=== PATIENT | female | born 1985 | race Caucasian/White ===

== ENCOUNTER 2017-11-16 17:25 | Emergency (ER) | payer OTHER, SELFPAY ==
--- NOTE | 2017-11-16 17:25 | DT_ITS ---
This patient was seen during an EMR downtime November 13, 2017 - November 20, 2017. This patient may have a combination of paper and electronic documentation or all paper documentation. All documentation is viewable within the e-chart portion of [facility] for each patient visit.
--- NOTE | 2017-11-16 18:47 | RAD_ITS ---
STUDY: X-RAY CHEST REASON FOR EXAM: Female, 31 years old. Chest pain. Shortness of breath TECHNIQUE: PA and lateral views of the chest. COMPARISON: None. FINDINGS: The lungs are clear and expanded. There is no demonstrated pleural abnormality. Normal size heart. Normal mediastinum and chery. Normal visualized pulmonary arteries. Normal visualized aortic arch and descending thoracic aorta. Normal visualized thoracic spine. Normal visualized ribs, clavicles, and shoulders. There is no demonstrated abnormality of the visualized soft tissue structures of the upper abdomen. RAD/Chest PA and Lateral IMPRESSION: Normal x-ray examination of the chest. Electronically Signed: Kirk Dotson MD at 13:43 EDT , Service support ,
== END 2017-11-16 18:05 | disposition home or self-care (01) ==
LOC: ED 11-17 10:38
PROVIDERS: Emergency Provider Emergency Medicine
DX: S20.212A Contusion of left front wall of thorax, initial encounter (principal); R07.89 Other chest pain; W50.1XXA Accidental kick by another person, initial encounter; Y93.9 Activity, unspecified; Y92.9 Unspecified place or not applicable
CPT/HCPCS: 71046; 99283

== ENCOUNTER 2018-04-14 12:26 | Emergency (ER) | payer OTHER, SELFPAY ==
[2018-04-14 12:27] VITALS: BP 114/69; PULSE 76; RESP 16; TEMP 36.3; O2SAT 98; BMI 21.6
--- NOTE | 2018-04-14 12:41 | CT_ITS ---
STUDY: CT ABDOMEN AND PELVIS WITHOUT CONTRAST REASON FOR EXAM: Female, 32 years old. LOW ABD PAIN. KAREN and left oophorectomy. HX OF ENDOMETRIOSIS AND IVF. RADIATION DOSAGE (If Supplied By Facility): CTDIvol = ( 6.67 ) mGy, DLP = ( 319.70 ) mGycm TECHNIQUE: Transaxial images were obtained from the dome of the diaphragm to the symphysis pubis without oral contrast, and without intravenous contrast. Sagittal and coronal images were reconstructed. Individualized dose optimization techniques were used for this CT. COMPARISON: None. FINDINGS: The visualized lung bases are unremarkable. The visualized portions of the heart are within normal limits. Normal liver. Normal gallbladder and extrahepatic biliary system. Normal spleen. Normal pancreas. Normal bilateral adrenal glands. Normal right kidney. Normal left kidney. Normal visualized stomach. Normal small intestine. There are multiple colonic diverticula consistent with diverticulosis. The appendix is visualized and appears normal. Normal abdominal aorta. Normal inferior vena cava. Normal retroperitoneum. Normal urinary bladder. Normal abdominal wall. Normal osseous structures. CT/Abdomen/Pelvis without Cont IMPRESSION: Mild diverticulosis. Electronically Signed: Justin Hansen MD at 14:21 EDT Tel , Service support ,
[2018-04-14 13:02] LABS: Squamous Epithelial Cells - UA 0 SEEN /hpf (5-10)
[2018-04-14 13:04] LABS: Color, Urine Yellow (Yellow); Glucose, Dipstick Normal (Normal); Ketone-Dipstick Negative (Negative); Leukocyte Esterase-Dipstick 25 /ul (Negative); Nitrite-Dipstick Positive (Negative); Occult Blood-Urine 25 /ul (Negative); Protein-Dipstick Negative (Negative); Urine Bilirubin Dipstick Negative (Negative); Urine Clarity Sl. Cloudy (Clear); Urine Urobilinogen Normal (Normal)
[2018-04-14 13:08] LABS: Absolute Lymphocyte Count 1.74 X10^3/ul (0.83-4.51); Absolute Neutrophil Count 6.8 X10^3/uL (2.0-7.7); Basophil# 0.03 X10^3/uL; Basophil% 0.3 % (0-1); Eosinophil# 0.15 X10^3/uL; Eosinophils% 1.6 % (0-5); Hematocrit 40.8 % (37-47); Hemoglobin 14.4 g/dl (12.0-15.0); Lymphocyte # 1.74 X10^3/ul (4.0); Lymphocyte % 18.5 % (19-41); Mean Corp Hgb Conc 35.3 g/gl (32-36); Mean Platelet Vol. 9.8 fl (6.2-12.0); Monocyte# 0.65 X10^3/uL; Monocyte% 6.9 % (0-10); Neutrophil % 72.5 % (47-70); Platelet Count 259 K/mm3 (150-450); RBC Distribution Width CV 12.3 % (11.6-14.6); RBC Distribution Width SD 37.7 fl (35.1-43.9); White Blood Count 9.4 K/mm3 (4.4-11.0)
[2018-04-14 13:09] LABS: POSITIVE COUNT NO; POSITIVE DIFFERENTIAL NO; POSITIVE MORPHOLOGY NO
[2018-04-14 13:10] LABS: Bacteria 3+ /hpf (None Seen); Mucous, Urine 1+ /hpf (<or=2+); Red Blood Cells-Urine 0-5 SEEN /hpf (0-5); White Blood Cells 0-5 SEEN /hpf (0-5)
[2018-04-14] MEDS: 0.9% Normal Saline 1,000 ML 1000 ML IV (13:14)
[2018-04-14] MEDS: Ondansetron 4 MG/2 ML Vial IV (13:14)
[2018-04-14 13:18] LABS: Anion Gap 6 (5-15); BUN 16 mg/dL (7-18); BUN/Creat Ratio 21.6 RATIO (10-20); Chloride 103 mmol/L (98-107); Creatinine, Serum 0.74 mg/dL (0.55-1.02); EST Glomerular Filtration Rate 96 mL/min (>60); Est Glom Filt Rate - Afr Amer 116 mL/min (>60); Estimated Creatinine Clearance 105.15 ml/min; Glucose 85 mg/dL (74-106); Potassium 3.8 mmol/L (3.5-5.1); Sodium Level 137 mmol/L (136-145)
[2018-04-14] MEDS: Ketorolac 30 MG/ML Syringe IV (14:09)
--- NOTE | 2018-04-14 14:41 | ED.VISSUMM ---
- ER Visit Summary Date of Service: 04/14/18 Chief Complaint: Abdominal pain History of Present Illness: The patient is a [address] Hairston. She reports that she has no abdominal pain began today. It came on suddenly. It is a sharp, stabbing pain 1010 at worst and 710 currently. Is worsened by bending, deep breaths, or sitting up straight. Relieved by remaining still. She had nausea without vomiting. No diarrhea. Last bowel was yesterday. She had no melena or hematochezia. No dysuria or frequency. She is status post hysterectomy. Physical Examination: Vitals: Stable. Afebrile. General: Well-nourished and well-developed. Head: Normocephalic atraumatic. Neck: Supple, no lymphadenopathy. No JVD. Nontender. Cardiovascular: Regular rate and rhythm. No murmurs. Respiratory: No respiratory distress. Clear to auscultation bilaterally. Abdominal: Soft, mild diffuse sinus palpation over the lower abdomen that is worst in the left lower quadrant, nondistended, normal bowel sounds. No guarding, rebound, or peritoneal signs. Back: Nontender. Extremities: Nontender, no edema. Skin: Normal color, no rash. Neurologic: Alert and oriented ?3. Cranial nerves II through XII are intact. Normal strength and sensation. Psych: Normal affect. Test Results: CBC is marked for 7 neutrophils 73 and 619. Chem-7 is normal. UA is negative. CT flank shows diverticulosis. She has a normal appendix and no acute disease. Emergency Department Course and Treatment: Patient was treated Zofran and Toradol. She is resting comfortably. Treatment Plan: Patient be discharged with Zofran and naproxen. Instructed to follow-up with her primary care physician 1-2 days if not improving. Return to the emergency department for any worsening symptoms. Disposition: To home in improved and stable condition. Impression: 1. Abdominal pain, uncertain cause. This note was generated with [employer] dictation software. It may contain incorrect words, spelling, and punctuation that were not noted in review of the chart prior to signing ED Disposition - Plan for ED Patient: Disposition: Home or Assisted Living Chief Complaint: Abd Pain Instructions: ED Abdominal Pain Unkn Cause Prescriptions: Ondansetron [Zofran Odt] 4 mg PO Q8H PRN PRN #10 tablet PRN Reason: Nausea Naproxen [Naprosyn] 500 mg PO BID #14 tablet Referrals: Doctor,Your [STAFF PHYSICIAN] - 1-2 Days if not improving
[2018-04-14 14:52] VITALS: BP 112/78; PULSE 83; RESP 16; O2SAT 98
== END 2018-04-14 14:56 | disposition home or self-care (01) ==
PROVIDERS: Emergency Provider Emergency Medicine
DX: R10.9 Unspecified abdominal pain (principal); K57.90 Diverticulosis of intestine, part unspecified, without perforation or abscess without bleeding; R11.2 Nausea with vomiting, unspecified; G43.909 Migraine, unspecified, not intractable, without status migrainosus; Z79.899 Other long term (current) drug therapy; Z90.710 Acquired absence of both cervix and uterus
CPT/HCPCS: 74176; 80048; 81001; 85025; 96361; 96374; 96375; 99283; J7030; A4216; J2405

== ENCOUNTER 2018-11-28 09:33 | Emergency (ER) | payer OTHER, SELFPAY ==
[2018-11-28 09:34] VITALS: BP 128/78; PULSE 76; RESP 14; TEMP 36.8; O2SAT 99; BMI 23.3
--- NOTE | 2018-11-28 09:38 | NURSING ---
NO OLD EKGS
--- NOTE | 2018-11-28 09:42 | EKG12_ITS ---
Test Reason : CP Blood Pressure : / mmHG Vent. Rate : 061 BPM Atrial Rate : 061 BPM P-R Int : 256 ms QRS Dur : 078 ms QT Int : 368 ms P-R-T Axes : 042 094 066 degrees QTc Int : 370 ms Sinus rhythm with sinus arrhythmia with 1st degree A-V block Rightward axis Borderline ECG Confirmed by SHARRON FRANCO ([id number]), city editor LINDEN MADERA ([id number]) on 12/03/2018 10:09:09 AM Referred By: JULIANA Confirmed By:SHARRON FRANCO
[2018-11-28 09:45] VITALS: O2SAT 99
--- NOTE | 2018-11-28 09:50 | RAD_ITS ---
STUDY: X-RAY CHEST REASON FOR EXAM: Female, 32 years old. Chest pain. TECHNIQUE: Single AP portable view of the chest. COMPARISON: Comparison is made with prior examination dated November 16, 2017. FINDINGS: EKG electrodes are seen. The lungs are clear and expanded. There is no demonstrated pleural abnormality. Normal size heart. Normal mediastinum and chery. Normal visualized pulmonary arteries. Normal visualized aortic arch and descending thoracic aorta. Normal visualized thoracic spine. Normal visualized ribs, clavicles, and shoulders. There is no demonstrated abnormality of the visualized soft tissue structures of the upper abdomen. RAD/Chest 1 View (Portable) IMPRESSION: Normal x-ray examination of the chest. Electronically Signed: Noman Esteban, at 10:33 EDT , Service support ,
--- NOTE | 2018-11-28 09:50 | ED.DCSUM_ITS ---
- ER Visit Summary Date of Service: 11/28/18 Chief Complaint: Left sided chest pain History of Present Illness: The patient is a 32 F has no history of anxiety and endometriosis. Patient states that at 7:20 AM this morning he started having left-sided chest pain. Mildly worse with deep inspiration. Denies any shortness of breath. No hemoptysis. She states in the last 1 to 2 weeks he had mild swelling of both feet. No history of DVT or PE. No recent travel, surgery or immobilization. She is not on control pills or hormone replacement. She has had a prior hysterectomy. She has no known cardiac history. Her mother did have an KS at 44. Patient denies any recent exertional dyspnea or e xertional chest pain. Physical Examination: Young female no acute distress vital signs are stable and afebrile pulse ox 9% on room air no hypoxia. HEENT exam unremarkable. Neck nontender no lymphadenopathy. Lungs clear to auscultation bilaterally. Heart regular rhythm no murmur. Chest wall she does have reproducible chest wall pain along the left sternal border and left chest. There is no ecchymosis or bruising or subcu air. No crepitance. No history of any type of trauma. Right chest is nontender. Abdomen is soft and nontender normal bowel sounds no peritoneal signs. She is moving all 4 extremities. Calves are nontender without edema. She has trace swelling in both feet. Both upper and lower extremities are neurovascular intact. She has equal symmetrical radial pulses. Neurologically she is awake alert with no focal deficits. Test Results: CBC normal. Chemistries normal. Normal gap and creatinine. Troponin normal. D-dimer normal at less than 0.27. EKG sinus rhythm rate of 61 with a first-degree AV block. Chest x-ray portable one view shows no acute abnormality read by myself. Normal cardiac silhouette mediastinum. Normal lung cartagena. No bony abnormalities. No pneumothorax. Emergency Department Course and Treatment: Patient will undergo cardiac work-up. Clinically I think this is less likely to be cardiac in etiology. She has no risk factors for DVT or PE. There is no family history of clotting disorder or blood clots. Exam is consistent with chest wall pain. Repeat exam patient is doing well at 10:24 AM. Clinically I think this is chest wall pain. She has no risk factors for DVT or PE. She is a negative d-dimer. Clinically I do not feel this to be cardiac. I am comfortable with her being discharged home as a she and her significant other. Treatment Plan: To her chest wall and Motrin for pain. Follow-up if not improving. Disposition: Discharge Impression: Acute chest pain Chest wall pain This note was generated with [employer] dictation software. It may contain incorrect words, spelling, and punctuation that were not noted in review of the chart prior to signing ED Disposition - Plan for ED Patient: Referrals: [facility] Doctor,Out of [Primary Care Provider] -
--- NOTE | 2018-11-28 09:52 | NURSING ---
NO OLD EKGS
[2018-11-28 09:57] LABS: Absolute Lymphocyte Count 1.52 X10^3/ul (0.83-4.51); Absolute Neutrophil Count 3.5 X10^3/uL (2.0-7.7); Basophil# 0.03 X10^3/uL; Basophil% 0.5 % (0-1); Eosinophil# 0.16 X10^3/uL; Eosinophils% 2.8 % (0-5); Hematocrit 38.6 % (37-47); Hemoglobin 13.5 g/dl (12.0-15.0); Lymphocyte # 1.52 X10^3/ul (4.0); Mean Corpuscular Hgb 29.5 pg (27.0-32.0); Mean Corpuscular Volume 84.5 fL (81-99); Monocyte# 0.45 X10^3/uL; Neutrophil # 3.45 X10^3/uL (2.7-7.7); Neutrophil % 61.5 % (47-70); POSITIVE COUNT NO; POSITIVE DIFFERENTIAL NO; POSITIVE MORPHOLOGY NO; Platelet Count 240 K/mm3 (150-450); RBC Distribution Width CV 12.7 % (11.6-14.6); RBC Distribution Width SD 38.5 fl (35.1-43.9); Red Blood Count 4.57 M/mm3 (4.2-5.4); White Blood Count 5.6 K/mm3 (4.4-11.0)
[2018-11-28 10:04] LABS: D-Dimer Quantitative (DVT/PE) < 0.27 FEU/ug/m (0.27-0.49)
[2018-11-28 10:09] LABS: Anion Gap 4 (5-15); BUN 15 mg/dL (7-18); BUN/Creat Ratio 23.3 RATIO (10-20); Calcium,Total 8.8 mg/dL (8.5-10.1); Chloride 105 mmol/L (98-107); Creatinine, Serum 0.64 mg/dL (0.55-1.02); EST Glomerular Filtration Rate 112 mL/min (>60); Est Glom Filt Rate - Afr Amer 136 mL/min (>60); Estimated Creatinine Clearance 121.58 ml/min; Glucose 85 mg/dL (74-106); Potassium 3.9 mmol/L (3.5-5.1); Sodium Level 138 mmol/L (136-145)
--- NOTE | 2018-11-28 10:26 | DCINST.ED_ITS ---
ED Disposition - Plan for ED Patient: Disposition: Home or Assisted Living Instructions: CHEST WALL PAIN, Costochondritis Referrals: [facility] Doctor,Out of [Primary Care Provider] - As Needed Additional Instructions: Motrin and Tylenol for pain. Ice her chest wall. Follow-up with your doctor if not improving. All your tests today, EKG and chest x-ray were normal. Your exam is consistent with inflammation of your chest wall or chest wall strain.
[2018-11-28 10:32] VITALS: BP 117/61; PULSE 68; RESP 18
== END 2018-11-28 10:32 | disposition home or self-care (01) ==
PROVIDERS: Emergency Provider Emergency Medicine
DX: R07.89 Other chest pain (principal); I44.0 Atrioventricular block, first degree; M79.89 Other specified soft tissue disorders; F41.9 Anxiety disorder, unspecified; Z90.710 Acquired absence of both cervix and uterus
CPT/HCPCS: 71045; 80048; 84484; 85025; 85379; 93005; 99285; A4216

== ENCOUNTER 2019-01-20 11:11 | Emergency (ER) | payer OTHER, SELFPAY ==
[2019-01-20 11:21] VITALS: BP 113/86; PULSE 68; RESP 16; TEMP 36.9; O2SAT 98; BMI 23.5
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
== END 2019-01-20 12:51 | disposition home or self-care (01) ==
PROVIDERS: Emergency Provider Emergency Medicine
DX: F41.0 Panic disorder [episodic paroxysmal anxiety] (principal)
CPT/HCPCS: 99284

== ENCOUNTER 2019-03-31 16:57 | Emergency (ER) | payer OTHER, SELFPAY ==
[2019-03-31 16:58] VITALS: BP 116/66; PULSE 81; RESP 16; TEMP 37; O2SAT 97; BMI 22.7
--- NOTE | 2019-03-31 17:09 | RAD_ITS ---
STUDY: X-RAY - LEFT TIBIA AND FIBULA REASON FOR EXAM: Female, 33 years old. Trauma TECHNIQUE: 4 view(s) of the tibia and fibula were obtained. COMPARISON: None. FINDINGS: There are acute fractures of distal tibia and fibula. The proximal and mid shafts are intact.. Diffuse soft tissue swelling of the distal leg RAD/Tibia & Fibula 2 Views IMPRESSION: Acute fractures of the distal tibia and fibula. Electronically Signed: Sushil Caputo MD at 18:28 EDT , Service support ,
--- NOTE | 2019-03-31 17:09 | RAD_ITS ---
STUDY: X-RAY - LEFT FOOT CLINICAL: Female, 33 years old. Trauma TECHNIQUE: 3 view(s) of the foot. COMPARISON: None. FINDINGS: Normal talus, calcaneus, and tarsal bones. Normal visualized subtalar, talonavicular, calcaneocuboid, tarsal and tarsometatarsal articulations. Normal metatarsi. Normal metatarsophalangeal joint of the great toe. Normal tibial and fibular sesamoid bones. Normal interphalangeal joint of the great toe. Normal phalanges of the great toe. Normal second through fifth metatarsophalangeal joints. Normal interphalangeal joints and phalanges of the lesser toes. Soft tissue swelling of the ankle with distal tibial and fibular fractures. RAD/Foot min 3 Views IMPRESSION: No evidence for acute fracture or dislocation of the foot Electronically Signed: Sushil Caputo MD at 18:30 EDT , Service support ,
--- NOTE | 2019-03-31 17:38 | ED.VIS.GEN ---
History of Present Illness Chief Complaint: Lower Extremity Injury Informant: Patient Onset: Today Context: Sudden Onset Current Severity: Moderate Maximum Severity: Moderate Narrative: The patient presents to the emergency department with left lower extremity injury. The patient was ice skating. She states that she slipped and fell with her skate underneath her. She landed on her left leg. She did not strike her head. She denies loss of consciousness. She denies other injury. The patient was unable to stand and bear weight. She was placed in an air splint and brought in for further evaluation. Past Medical History - Allergies and Home Meds Allergies/Adverse Reactions: Allergies No Known Allergies Allergy (Verified 03/31/19 17:03) Primary Care Physician: Tomasz Curtis DO [STAFF PHYSICIAN] - 1 Day Prior records reviewed: Yes Past Medical History: None Surgical History: no surgical history Smoking Status: Never smoker Review of Systems General: Denies: Chills, Fever, Sweats Eyes: Denies: Visual changes - bilaterally, Diplopia ENT: Denies: Rhinorrhea, Sore throat Cardiovascular: Denies: Chest pain, Palpitations Respiratory: Denies: Dyspnea, Cough, Dyspnea on exertion Gastrointestinal: Denies: Abdominal pain, Nausea, Vomiting, Diarrhea, Melena, Hematochezia Genitourinary: Denies: Dysuria, Hematuria, Frequency Musculoskeletal: Denies: Back pain, Extremity Pain Skin: Denies: Rash, Wounds Neurological: Denies: Headache, Weakness, Numbness Physical Exam Vital Signs/Narrative: Vital Signs Temp Pulse Resp BP Pulse Ox 03/31/19 16:58 98.6 F 81 16 116/66 97 Inital Vital Signs reviewed: Yes General: Well nourished, Well developed, No Acute Distress Head: Normocephalic, Atraumatic Eyes: Perrl, EOMI ENT: Moist mucous membranes, No rhinorrhea Neck: Supple, Nontender Cardiovascular: Regular rate, Regular rhythm, No murmurs Respiratory: No distress, CTA bilaterally, Chest nontender Abdomen: Soft, Nontender, Nondistended, Normal bowel sounds Back: Nontender, Normal Inspection Extremities: - - Patient does have tenderness over the distal tibia. Pulses are normal. Compartments are soft. Sensation is intact to light touch. There is no pain in the foot. There is no pain at the proximal fibula. Skin: Normal color, No rash Neurological: Alert, Oriented x3, Cranial nerves II-XII grossly intact, Normal Strength, Normal Sensation Psychological: Normal affect, Normal Mood Diagnostic/Tx/Re-eval Clinical Impression(s) from Imaging Studies Foot X-Ray 03/31/19 17:09 IMPRESSION: No evidence for acute fracture or dislocation of the foot Electronically Signed: Sushil Caputo MD at 18:30 EDT , Service support , Tibia/Fibula X-Ray 03/31/19 17:09 IMPRESSION: Acute fractures of the distal tibia and fibula. Electronically Signed: Sushil Caputo MD at 18:28 EDT , Service support , Ankle X-Ray 03/31/19 17:40 IMPRESSION: Acute minimally displaced trimalleolar fracture Electronically Signed: Sushil Caputo MD at 18:28 EDT , Service support , - Medical Decision Making The patient had [facility]undo received fentanyl and did not want any more pain medication. X-rays do show a distal spiral fracture of the tibia that does not involve the joint space. There is also a nondisplaced fracture of the distal fibula. I did discuss the patient with both podiatry and orthopedics. The patient was placed in a fiberglass Altaf Disla type splint. She will remain nonweightbearing. She will be given analgesics and will follow up with orthopedics as she is likely going to need operative fixation. Again, the patient has no evidence of compartment syndrome and normal pulses. She will continue elevation. She was counseled on concerning symptoms and reasons to return. Impression 1. Closed fracture of the distal tibia Closed fracture of the distal fibula Splint by ED physician ED Disposition - Plan for ED Patient: Instructions: FRACTURE, Lower Extremity Prescriptions: Oxycodone HCl/Acetaminophen [Percocet 5/325] 1 tab PO Q6H PRN PRN 3 Days #12 tab PRN Reason: Pain Prescription Printed Referrals: Tomasz Curtis DO [STAFF PHYSICIAN] - 1 Day
--- NOTE | 2019-03-31 17:40 | RAD_ITS ---
STUDY: X-RAY - LEFT ANKLE REASON FOR EXAM: Female, 33 years old. Trauma TECHNIQUE: 3 view(s) of the ankle. COMPARISON: None. FINDINGS: There is an acute spiral fracture of the distal third of the tibial shaft with minor separation of the fracture fragments. There is also a spiral fracture of the distal third of the fibular shaft without appreciable displacement of bony fragments. On the lateral view, there is also a nondisplaced cortical fracture of the posterior tibia.. Normal medial and lateral malleoli. Normal tibiotalar articulation and ankle mortise. Normal visualized talus and calcaneus. The visualized subtalar, talonavicular, calcaneocuboid and tarsal articulations are normal. Bimalleolar soft tissue swelling is seen RAD/Ankle min 3 Views IMPRESSION: Acute minimally displaced trimalleolar fracture Electronically Signed: Sushil Caputo MD at 18:28 EDT , Service support ,
[2019-03-31] MEDS: HYDROmorphone 1 MG/ML Syringe IV (18:15)
[2019-03-31 19:15] VITALS: BP 107/56; PULSE 92; RESP 17; O2SAT 97
== END 2019-03-31 19:17 | disposition home or self-care (01) ==
PROVIDERS: Emergency Provider Emergency Medicine
DX: S82.242A Displaced spiral fracture of shaft of left tibia, initial encounter for closed fracture (principal); S82.832A Other fracture of upper and lower end of left fibula, initial encounter for closed fracture; V00.211A Fall from ice-skates, initial encounter; Y93.21 Activity, ice skating; Y92.9 Unspecified place or not applicable; Y99.9 Unspecified external cause status; Z79.899 Other long term (current) drug therapy
CPT/HCPCS: 29515; 73590; 73610; 73630; 96374; 99285

== ENCOUNTER 2019-04-01 10:52 | Emergency (ER) | payer OTHER, SELFPAY ==
[2019-03-31 16:58] VITALS: BMI 22.7
[2019-04-01 10:54] VITALS: BP 118/71; PULSE 90; RESP 12; TEMP 36.7; O2SAT 96; BMI 22.7
--- NOTE | 2019-04-01 11:21 | ED.VIS.GEN ---
History of Present Illness Chief Complaint: Lower Extremity Injury Detail of Chief Complaint: Fall reinjuring left ankle Informant: Patient Onset: Hours Context: Sudden Onset Timing: Continuous Quality: Pain Location: Left ankle Current Severity: Mild Maximum Severity: Severe Worsened by: Weightbearing Relieved by: Nothing Associated Symptoms: No other symptoms Narrative: Patient is a 33-year-old woman who was seen last evening and diagnosed with a distal tib-fib fracture. X-rays were reviewed and there is concern that she had a trimalleolar fracture. She was placed in a short leg Altaf Disla dressing. Today attempting to go to the restroom she fell using her crutches. She put weight on the right foot. She is reports the foot was dorsiflexed. She has significant pain. She presents because of the increase in pain and concerned she may have displaced a fracture. Prior similar symptoms: Yes Recent Illness/Hospitalization: Yes - Past Medical History (1) History trimalleolar fracture Status: Acute Past Medical History - Allergies and Home Meds Allergies/Adverse Reactions: Allergies No Known Allergies Allergy (Verified 04/01/19 10:54) Primary Care Physician: Brennon Garcia,Out of [NON-STAFF] - Prior records reviewed: Yes - No significant past medical Surgical History: no surgical history Lives: Spouse/ Significant Other Smoking Status: Never smoker Drugs: None Review of Systems Musculoskeletal: Reports: Swelling, Extremity Pain. Denies: Myalgias, Arthralgias, Neck pain, Back pain Skin: Denies: Rash, Wounds Neurological: Denies: Weakness, Parasthesia, Numbness Hematologic: Denies: Easy bruising, Easy bleeding Physical Exam Vital Signs/Narrative: Vital Signs Temp Pulse Resp BP Pulse Ox 04/01/19 10:54 98.1 F 90 12 118/71 96 Inital Vital Signs reviewed: Yes General: Well nourished, Well developed, No Acute Distress Head: Normocephalic, Atraumatic Eyes: Perrl, EOMI. Negative for: Pale conjunctiva, Scleral icterus Cardiovascular: Regular rate, Regular rhythm Respiratory: No distress Extremities: No edema, - - There is discoloration of the toes. She has no neurovascular findings. The Altaf Disla dressing is in place. There is no pain the patient of the proximal fibula or tibia.. Negative for: Nontender Skin: Normal color, Trauma Neurological: Alert, Oriented x3, Cranial nerves II-XII grossly intact, Normal Strength, Normal Sensation Psychological: Normal affect Diagnostic/Tx/Re-eval Chest X-Ray - ED: Read by ED Physician Three-view x-ray of the ankle reveals a trimalleolar minimally displaced fracture which is unchanged from last evening. Patient was instructed to keep her appointment with Dr. Tomasz Curtis scheduled for tomorrow morning. - Medical Decision Making Three-view x-ray of the ankle was obtained to compare to last evening to determine if patient displaced the fracture or not. ED Disposition - Plan for ED Patient: Disposition: Home or Assisted Living Diagnosis: Trimalleolar fracture of ankle, closed Instructions: FRACTURE, Ankle (General) Referrals: [facility],Out of [NON-STAFF] - Additional Instructions: Your scheduled appointment with Dr. Tomasz Curtis for tomorrow morning.
--- NOTE | 2019-04-01 11:28 | RAD_ITS ---
STUDY: X-RAY - LEFT ANKLE REASON FOR EXAM: Female, 33 years old. Pain following injury. TECHNIQUE: 3 view(s) of the ankle. COMPARISON: None. FINDINGS: Nondisplaced spiral fracture of the distal tibial shaft and metastasis as well as an oblique fracture of the distal fibula. Normal medial and lateral malleoli. Normal tibiotalar articulation and ankle mortise. Normal visualized talus and calcaneus. The visualized subtalar, talonavicular, calcaneocuboid and tarsal articulations are normal. Soft tissue swelling. RAD/Ankle min 3 Views IMPRESSION: Nondisplaced spiral fracture of the distal tibial diaphysis/metaphysis as well as the distal fibular shaft. Soft tissue swelling. Electronically Signed: Noman Esteban, at 11:44 EDT , Service support ,
[2019-04-01] MEDS: oxyCODONE 5 MG Tablet PO (11:36)
== END 2019-04-01 12:53 | disposition home or self-care (01) ==
PROVIDERS: Emergency Provider Emergency Medicine
DX: S82.852A Displaced trimalleolar fracture of left lower leg, initial encounter for closed fracture (principal); W19.XXXA Unspecified fall, initial encounter; Y93.9 Activity, unspecified; Y92.9 Unspecified place or not applicable; Y99.9 Unspecified external cause status; Z79.899 Other long term (current) drug therapy
CPT/HCPCS: 73610; 99283

== ENCOUNTER → 2019-04-08 16:12 | Outpatient (CLI) | payer OTHER, SELFPAY ==
[2019-04-01 10:54] VITALS: BMI 22.7
--- NOTE | 2019-04-08 16:32 | CT_ITS ---
STUDY: CT LEFT LOWER EXTREMITY WITHOUT CONTRAST REASON FOR EXAM: Female, 33 years old. Left lower extremity fractures RADIATION DOSAGE (If Supplied By Facility): CTDIvol = ( 15.35 ) mGy, DLP = ( 683.81 ) mGycm TECHNIQUE: Spiral CT imaging of the left lower leg was performed without contrast in the transaxial plane, followed by coronal and sagittal reconstruction Individualized dose optimization techniques were used for this CT. COMPARISON: No relevant priors. FINDINGS: There is a comminuted fracture of the distal tibial diaphysis with minimal posterior displacement and angulation of the largest distal fracture fragment. There is a nondisplaced fracture of the posterior malleolus of the tibia. There is a comminuted fracture of the distal fibular diaphysis at the level just above the tibiotalar joint with posterior displacement of the largest distal fracture fragment. Ankle mortise remains intact. Visualized joints of the midfoot are unremarkable Soft tissue swelling throughout the lower leg and ankle. CT/Extremity Lower without Contra IMPRESSION: Comminuted fractures of the distal tibial and fibular diaphyses with associated nondisplaced fracture of the posterior malleolus of the distal tibia. Electronically Signed: Jarad Mccoy MD at 4:34 EDT Tel , Service support ,
[2019-04-08 16:37] LABS: Platelet Count 308 K/mm3 (150-450)
--- NOTE | 2019-04-08 16:40 | RAD_ITS ---
STUDY: X-RAY CHEST REASON FOR EXAM: Female, 33 years old. Preoperative evaluation for ankle fracture repair TECHNIQUE: PA and lateral views of the chest. COMPARISON: 11/28/2018 FINDINGS: The lungs are clear and expanded. There is no demonstrated pleural abnormality. Normal size heart. Normal mediastinum and chery. Normal visualized pulmonary arteries. Normal visualized aortic arch and descending thoracic aorta. Normal visualized thoracic spine. Normal visualized ribs, clavicles, and shoulders. There is no demonstrated abnormality of the visualized soft tissue structures of the upper abdomen. RAD/Chest PA and Lateral IMPRESSION: Normal x-ray examination of the chest. Electronically Signed: Jarad Mccoy MD at 4:42 EDT Tel , Service support ,
[2019-04-08 16:47] LABS: International Normalized Ratio 1.1; Prothrombin Time (Protime)PT. 13.5 SECONDS (11.7-14.9)
[2019-04-08 16:48] LABS: Partial Thromboplast Time 25.5 Seconds (24.1-36.2)
[2019-04-08 16:55] LABS: Anion Gap 6 (5-15); BUN 27 mg/dL (7-18); BUN/Creat Ratio 35.6 RATIO (10-20); Calcium,Total 9.1 mg/dL (8.5-10.1); Chloride 103 mmol/L (98-107); Creatinine, Serum 0.76 mg/dL (0.55-1.02); EST Glomerular Filtration Rate 93 mL/min (>60); Est Glom Filt Rate - Afr Amer 112 mL/min (>60); Glucose 111 mg/dL (74-106); Sodium Level 137 mmol/L (136-145)
== END ==
PROVIDERS: Referring Provider Family Medicine; Visit Provider Podiatrist Foot & Ankle Surgery
DX: Z01.818 Encounter for other preprocedural examination (principal); I10 Essential (primary) hypertension; S82.872A Displaced pilon fracture of left tibia, initial encounter for closed fracture
CPT/HCPCS: 36415; 71046; 73700; 80048; 85049; 85610; 85730

== ENCOUNTER 2019-04-11 09:31 | Day surgery (SDC) | payer OTHER, SELFPAY ==
[2019-04-11] VITALS (9 sets, daily range): BP systolic 109–124; BP diastolic 67–75; PULSE 88–102; RESP 16; TEMP 36.6–37.5; O2SAT 97–100; BMI 23.5
[2019-04-11] MEDS: Lactated Ringers 1,000 ML 100 ML IV ×2 (10:18→17:47)
[2019-04-11] MEDS: Cefazolin 2 GM in 0.9% Normal Saline 100 ML IV (12:35)
--- NOTE | 2019-04-11 12:54 | RAD_ITS ---
STUDY: X-RAY - LEFT ANKLE REASON FOR EXAM: Female, 33 years old. Intraoperative imaging. TECHNIQUE: 3 view(s) of the ankle. COMPARISON: Comparison is made with prior examination in March 31, 2019. FINDINGS: Intraoperative fluoroscopic services provided for open reduction and internal fixation of the distal tibial and fibular fractures. There is good alignment. RAD/Ankle min 3 Views IMPRESSION: Intraoperative fluoroscopic services provided for ORIF of the distal tibial and fibular fractures. Electronically Signed: Noman Esteban, at 9:06 EDT , Service support ,
--- NOTE | 2019-04-11 17:19 | DCINST_ITS ---
Discharge Diet: Light diet - advance as tolerated - advance diet as tolerated Discharge Activity: May Not Drive, May Not Shower, Use Crutches Ice area for (Minutes): 20 - ice behind left knee 20 minutes on 20 minutes off every hour while awake for next 14 days. Weight Bearing Status: No weight bearing - to left foot/leg. Use crutches for assistance Keep extremity elevated above heart level: Left Leg Call your doctor if your incision/area has: Increased Pain/ Swelling, Increased Redness Call your doctor if you observe: Fever of 101 or Higher, Coldness, Increased Pain, Numbness or Tingling, Shortness of breath, Dizziness, Fainting spells, Chest pain, Calf discomfort, Uncontrolled pain Change Dressing in (Days):: 0 - DO NOT CHANGE DRESSING Cleanse incision/area with: Keep Dressing Clean & Dry Additional Instructions: Keep dressing clean, dry and intact to left leg. Do not get dressing wet. Protect dressing when bathing with cast protector or plastic bag and tape Elevate left foot above level of heart as much as possible over next 2 weeks Ice behind left knee 20 minutes on 20 minutes off every hour while awake Take medications as prescribed No walking/standing on left foot. Use crutches/knee scooter for assistance Allergies/Adverse Reactions: Allergies No Known Allergies Allergy (Verified 04/11/19 09:54) Medications to take at Discharge Lorazepam [Ativan] 0.5 mg PO Q8H PRN PRN 03/31/19 Hydrocodone/Acetaminophen [[place] 5-325 Tablet] 1 ea PO Q4H PRN PRN 04/05/19 Aspirin 325 mg PO DAILY@0800 14 Days #14 tab 04/11/19 Hydrocodone/Acetaminophen [[place] 5-325 Tablet] 1 ea PO Q4H PRN PRN 7 Days #42 tab 04/11/19 The following prescriptions were given: Aspirin 325 mg PO DAILY@0800 14 Days #14 tab Prescription Printed Hydrocodone/Acetaminophen [[place] 5-325 Tablet] 1 ea PO Q4H PRN PRN 7 Days #42 tab PRN Reason: Pain Score 1-1010 Prescription Printed Primary Care Physician: NARINDER DAVILA [Other] Test Results: Test results from this visit will be discussed in further detail at your follow- up appointment, if applicable.
--- NOTE | 2019-04-11 17:25 | RAD_ITS ---
STUDY: X-RAY - LEFT ANKLE REASON FOR EXAM: Female, 33 years old. Postop TECHNIQUE: 3 view(s) of the ankle. COMPARISON: April 01, 2019 FINDINGS: Status post ORIF for the distal tibia and distal fibula. Bony fragments are well approximated and aligned. Skin renaldo are noted laterally. A cast has been applied. RAD/Ankle min 3 Views IMPRESSION: Status post ORIF of the distal tibial and fibular fractures. Electronically Signed: Kofi Rivas DO at 18:19 EDT Tel [phone], Service support ,
--- NOTE | 2019-04-11 17:28 | OP.PCM_ITS ---
Problem List (1) Fracture of tibial shaft, left, closed Status: Acute Qualifiers: Encounter type: initial encounter Fracture morphology: comminuted Fracture alignment: displaced Qualified Code(s): S82.252A - Displaced com minuted fracture of shaft of left tibia, initial encounter for closed fracture (2) Left fibular fracture Status: Acute Qualifiers: Encounter type: initial encounter Fibula location: lateral malleolus Fracture type: closed Fracture alignment: displaced Qualified Code(s): S82.62XA - Displaced fracture of lateral malleolus of left fibula, initial encounter for closed fracture Report of Operation Date of Procedure: 04/11/19 Pre-Operative Diagnosis: 1. Left tibia distal shaft fracture, comminuted, closed, displaced. 2. Left lateral malleolus fracture, closed, displaced, comminuted Post-Operative Diagnosis: Same as preoperative Surgery/Procedure Performed:: 1. Left tibia open reduction with internal fixation. 2. Left lateral malleolus open reduction with internal fixation associate manager affiliate marketing: Mike Roper Type of Anesthesia:: Sedation,Conscious, Spinal Specimen's removed: None Drains: None Estimated Blood Loss (mL): 200mL Description of Procedure: Hemostasis: Pneumatic thigh tourniquet placed to level of the left thigh at 300 mmHg for 130 minutes Estimated blood loss: 200 mL Materials: 1. [place] distal lateral fibula plate 5 hole. 2. Ginny 3.5 mm x 12 mm locking screw x5. 3. Ginny 3.5 x 10 mm nonlocking screw x2. 4. Ginny 3.5 x 12 mm nonlocking screw x2. 5. [place] 6 hole distal medial tibial plate for the left tibia. 6. [place] 3.5 x 30 mm cortical screw. 7. Ginny 4.0 x 16 mm locking screw x2. 8. [place] 4.0 x 18 mm locking screw. 9. Ginny 4.0 x 30 mm locking screw x4. 10. Ginny 4.0 x 32 mm locking screw x2. 11. Size 0 Vicryl. 12. Size 2-0 Vicryl. 13. Skin renaldo. 14. 2-0 nylon. Injectables: None Complications: Due to the comminuted nature of the tibia and fibular fractures, it was very difficult to align every piece back into anatomical position. Condition: stable Indications: Ms. Carmona is a 33-year-old female with no significant past medical history who suffered an injury of her left leg on April 01. Patient states that she was ice skating and fell, experiencing immediate pain in her left leg. Patient then subsequently was taken to the emergency department for further tia luation. At that time x-rays were taken showing a comminuted tibial and fibular fracture. Patient was then splinted and instructed follow-up to follow-up in my office. Patient then saw me in the office on April 02. Patient did not have any breaks in the skin or blistering but was very swollen at that time. I then determined that a compressive dressing along with medications to reduce the in flammation of the swelling before surgical intervention would greatly benefit the patient. I discussed with the patient her goals of activity and her early return. After further discussions were had with the patient, it was determined that surgical intervention to reduce the fractures would greatly benefit the patient and help her return to activities of daily living center. I decided to wait in order order for the reduction of the swelling and to give the patient the best possible outcome along with ordering a CT evaluation to assess the comminuted fracture. Operative Report: Before the patient was brought to the operating room, all the risks, benefits, possible outcomes, possible complications of the procedure were discussed with the patient. All the patient's questions were answered to her satisfaction and all of her concerns were addressed. No guarantees was made as to the outcome of the procedure. The patient understood all aspects of the procedure and consent was then signed by the patient. Dressings were then removed of the left foot and leg and the swelling was noted to be significantly decreased from preoperative operative assessment. The patient was then brought to the operating room and placed on the operating table in supine position. At that time spinal anesthesia was administered along with conscious sedation. Next a well-padded pneumatic thigh tourniquet was placed to the level of the left thigh. The left foot, ankle, and leg were then scrubbed, prepped and draped in the usual sterile manner. Elevation of the left lower extremity was followed by exsanguination via Esmarch and inflation of the pneumatic thigh tourniquet to 300 mmHg. Attention was then directed to the lateral aspect of the lateral malleolus of the left leg. At that time live radiographic evaluation was used to determine the level of the distal tip of the lateral malleolus along with the level of the comminuted fracture. These points were then marked on the patient. Next #15 blade was used to perform an incision starting at the distal tip of the lateral malleolus extending proximally to the lateral aspect of the distal third of the fibular shaft. This incision was deepened utilizing sharp and blunt dissection. Care was taken to retract all vital neural and vascular structures. All bleeders were cauterized and ligated as necessary. At that time a periosteal incision was made in line with the original skin incision. The periosteal and capsular structures were then reflected anteriorly and posteriorly thus exposing the fibular fracture of the operative site. At that time a curette was used to remove fibrous tissue and hematoma contained within the fibular fractures. Severe comminution was noted of this fibula. Next live radiographic evaluation was used to reduce the fibular fracture as best as possible. Once reduced this was held via temporary fixation. Radiographic evaluation was then performed and the fibula was noted to be out to length with the ankle joint mortise in anatomic position. Severe comminution was still noted of this fracture. An attempt was made to place an interfragmentary screw across the main fracture lines to assist in the reduction of the fracture. This was attempted multiple times and the screw was unable to hold the fracture fragments in the corrected reduced position. At that time it was determined that plating would be the best option. Next the Ginny distal lateral fibula plate was placed on the lateral aspect of the fibula. Radiographic evaluation was then performed to determine the exact level of placement. Once determined this was held via a mixture of nonlocking and locking screws. During insertion of the each screw care was taken make sure the screw was neither too long to short. Of note during insertion of the screws was adequate compression of the plate to the bone. Furthermore no shifting and the fractures occurred during insertion of the screws into the plate. Once the screws were fully inserted all temporary fixation was then removed. Radiographic evaluation was then performed and the plate was noted to hold the fibula and the corrected reduced position. Of note was still the severity of the comminuted fractures. It was then determined that the fibula plate would hold and act as fixation for this fracture. The surgical site was then irrigated with copious amounts of normal sterile saline. The periosteal capsular structures were reapproximated and coapted utilizing size 0 Vicryl. The subcutaneous tissue was reapproximated and coapted utilizing size 2-0 Vicryl. The skin was reapproximated coapted utilizing skin renaldo. Attention was then directed to the medial aspect of the left leg at the level of the medial malleolus. At that time lie radiographic evaluation was used to determine the level of the distal medial malleolus along with the distal and proximal aspects of the comminuted fracture. Once determined skin incision was made on the medial aspect the left leg starting at the distal tip of the medial malleolus extending proximally to the medial aspect of the distal one third of the tibial shaft. This incision was deepened utilizing sharp and blunt dissection. Care was taken to retract all vital neural and vascular structures. All bleeders were cauterized and ligated as necessary. At this time the periosteum was identified at the tibia. It was decided to leave this intact. The fracture fragments were then noted of the tibial shaft. Severe comminution was noted of the tibial shaft. Next a curette was used to remove any hematoma and fibrous tissue contained within the tibial fractures. At this time bone reduction clamps were used to reduce the fracture back into anatomical alignment. Several attempts were made to obtain the best outcome. This was a severely difficult fracture to reduce back into perfect anatomical alignment. Radiographic evaluation was then performed and the reduction obtained noted to have the tibia out to length with adequate reduction in the AP and medial oblique views. The lateral view showed a step-off anteriorly but it was minimal when compared to pre-operative assessment. The tibial fractures were then held via temporary fixation. Due to the severe comminution, it was determined that an interfragmentary screw would not be able to hold this fracture. It was determined that a medial tibial plate would be used to hold the tibia out to length and to aid in the healing process. At this time the pneumatic thigh tourniquet was released and a prompt hyperemic response was noted to the entirety of the left lower extremity. All bleeders were cauterized and ligated as necessary. The Ginny medial tibial plate was placed on the medial aspect of the tibia and was held utilizing a mixture of nonlocking and locking screws. Of note during insertion of the screws with adequate compression of the plate to the bone. No shifting of any of the fracture fragments occurred during insertion of the screws to the plate. Once the plate was fully adhered all temporary fixation was then removed. Radiographic evaluation was then performed and the tibial plate was noted to hold the tibia and the reduced position. The ankle joint mortise was noted to be intact. The surgical site was then irrigated with copious amounts of normal sterile saline. The subcutaneous tissue was reapproximated and coapted utilizing a mixture of size 0 and 2-0 Vicryl. The subcutaneous tissue was reapproximated and coapted with a size 2-0 Vicryl. The skin was reapproximated coapted utilizing a size 2-0 nylon in a horizontal mattress fashion. Each surgical site was then dressed with Betadine soaked gauze, and a dry sterile dressings using a 4 x 4 gauze wrapped with Kerlix. The left foot and ankle were then wrapped with an Eamon bandage. At this time cast padding was wrapped from the metatarsal heads extending proximally to the level just distal to the tibial tuberosity. A posterior splint along with a sugar tong addition was placed to the left lower extremity and was adhered to the left lower extremity utilizing Eamon bandages. Care was taken to make sure that the foot ankle held in a neutral position as the posterior splint dried. The patient tolerated the anesthesia and the procedure well and was transported to the PACU with vital signs stable and neurovascular status intact to the left lower extremity. After period of postoperative monitoring the patient will be discharged home with written and oral instructions for wound care and follow-up. At this time the patient will remain in the posterior splint for a period of 2 weeks with non-weight bearing. If the skin has healed, the sutures and renaldo will be removed from the skin. If the wounds are not healed yet, then the pa tient will stay in the posterior splint for another week. Once the skin renaldo and sutures are removed from the skin, the patient will transition to a pneumatic CAM walker and remain non weight bearing for 2 weeks. - Admit VTE Documentation VTE Mechan Device Prophylaxis: SCD's VTE Pharm Prophylaxis ordered?: Yes
[2019-04-11] MEDS: Ketorolac 15 MG/ML Vial IV (17:49)
[2019-04-11] MEDS: HYDROcodone Bitartrate/Apap 5/325 Tablet PO (18:00)
== END 2019-04-11 20:24 | disposition home or self-care (01) ==
LOC: SDC 09:32 → AC 09:33
PROVIDERS: Referring Provider Podiatrist Foot & Ankle Surgery; Visit Provider Podiatrist Foot & Ankle Surgery
DX: S82.252A Displaced comminuted fracture of shaft of left tibia, initial encounter for closed fracture (principal); S82.62XA Displaced fracture of lateral malleolus of left fibula, initial encounter for closed fracture; V00.211A Fall from ice-skates, initial encounter; Y93.21 Activity, ice skating; Y92.330 Ice skating rink (indoor) (outdoor) as the place of occurrence of the external cause; Y99.9 Unspecified external cause status; F41.9 Anxiety disorder, unspecified; Z79.899 Other long term (current) drug therapy
CPT/HCPCS: 27758; 27792; 64445; 73610; 76000; C1713; J7120; J2405

== ENCOUNTER 2019-04-26 18:14 | Inpatient (IN) | payer OTHER, SELFPAY ==
[2019-04-11 09:56] VITALS: BMI 23.5
[2019-04-26 18:27] VITALS: BP 118/73; PULSE 88; RESP 16; TEMP 36.9; O2SAT 99
[2019-04-26 18:31] VITALS: BMI 23.2
[2019-04-26 18:33] VITALS: BMI 23.2
--- NOTE | 2019-04-26 19:46 | PCM.PROGNOTE ---
Subjective: Patient was seen and examined today at the request of orthopedic surgery, she saw her orthopedic surgeon today in his office and was directly admitted due to a postop infection in the left leg. Patient fell while ice skating on March 31, 2019 and suffered a tib-fib fracture, she underwent surgery for repair of this fracture on April 11, 2019. 3 days ago she was seen at her orthopedic surgeon's office and there was noted to be drainage from her incision area on her left leg, she was placed on Augmentin on that day and asked to come back for a recheck today, when she was rechecked today it was felt necessary for her to be admitted to the hospital for surgery tomorrow to clean the area out and IV antibiotic treatment. Patient has no chronic medical problems, she does not take any medications at this time. Patient states that this time that the pain in her left leg is not very severe. - Physical Exam Vitals/I&O's: Vital Signs Temp Pulse Resp BP Pulse Ox 98.4 F 88 16 118/73 99 04/26/19 18:27 04/26/19 18:27 04/26/19 18:27 04/26/19 18:27 04/26/19 18:27 Oxygen Delivery Method Room Air Weight: 67.313 kg Body Mass Index (BMI) 23.2 General: Alert, Oriented x3, Cooperative, No apparent distress, Well developed, Well nourished HEENT: Atraumatic, PERRLA, EOMI, Normocephalic Oral: Moist Mucosa Neck: Supple, No JVD, Negative Carotid Bruits, Trachea Midline, Thyroid Normal Size and Texture Lungs: Clear to auscultation, Normal air movement, No rhonchi, No wheeze, No rales Cardiovascular: Regular rate, Regular Rhythm, Normal S1, Normal S2, No murmurs, PMI Normal, No rub noted, No Gallop Abdomen: Bowel Sounds Present, Soft, Non Tender, Non-Distended, No hernias noted Extremities: No clubbing, No cyanosis, Capillary Refill Less than 3 Seconds, - - There is a wrapped splint over the patient's left lower leg from just below the knee To the area surrounding her foot. Neurological: Cranial nerves II-XII grossly intact, Neuro grossly intact, Sensory exam intact to light touch and pain Psych/Mental Status: Normal Affect, Appropriate, Alert and oriented to time, place, person, mood and affect Current Medications Acetaminophen (Tylenol) 1,000 mg PO Q8 ARIS Lactated Ringer's () 1,000 mls @ 90 mls/hr IV .Q11H7M ARIS Morphine Sulfate () 2 mg IV Q3H PRN PRN PRN Reason: Pain Score 6-10/10 Sodium Chloride () 10 - 40 ml IV UD PRN PRN Reason: SALINE FLUSH Tramadol HCl (Ultram) 100 mg PO Q6H PRN PRN PRN Reason: Pain Score 6-10/10 Medical Necessity - Tobacco Use Smoking Status: Never smoker Tobacco Use: Non-smoker Assessment/Plan All Active Problems Fracture of tibial shaft, left, closed (Acute) Left fibular fracture (Acute) History trimalleolar fracture (Ruled-out) #1 cellulitis of the left lower leg associated with surgical repair of tib-fib fracture-I feel the patient should be on Zosyn and vancomycin for antibiotic coverage, this would cover strep and staph both, I talked to Dr. Erin brasher and he prefers to wait until tomorrow when he does surgery to start the antibiotics. I would recommend vancomycin at 15 mg/kg loading dose and have pharmacy adjust the dose after that. I would recommend Zosyn at 3.375 g every 8 hours. Cultures will be obtained tomorrow the time of surgery. Labs are pending sameera. His pain medication was changed to tramadol orally, patient states she gets very nauseated with oxycodone. #2 status post left tib-fib fracture secondary to trauma Code Visit Inpatient E&M: 53418 Subs Hosp L2
[2019-04-26 20:08] LABS: Absolute Lymphocyte Count 2.61 X10^3/uL (0.83-4.51); Absolute Neutrophil Count 5.8 X10^3/uL (2.0-7.7); Basophil# 0.06 X10^3/uL; Basophil% 0.6 % (0-1); Eosinophil# 0.16 X10^3/uL; Eosinophils% 1.7 % (0-5); Hematocrit 38.9 % (37-47); Hemoglobin 13.1 g/dL (12.0-15.0); Lymphocyte # 2.61 X10^3/ul (4.0); Lymphocyte % 27.8 % (19-41); Mean Corp Hgb Conc 33.7 g/dL (32-36); Mean Corpuscular Hgb 29.2 pg (27.0-32.0); Mean Corpuscular Volume 86.8 fL (81-99); Mean Platelet Vol. 9.2 fl (6.2-12.0); Monocyte# 0.78 X10^3/uL; Monocyte% 8.3 % (0-10); NRBC Flagged by Analyzer 0 % (0-5); Neutrophil # 5.75 X10^3/uL (2.7-7.7); Neutrophil % 61.4 % (47-70); Platelet Count 490 K/mm3 (150-450); RBC Distribution Width CV 11.9 % (11.6-14.6); RBC Distribution Width SD 37.9 fl (35.1-43.9); Red Blood Count 4.48 M/mm3 (4.2-5.4); White Blood Count 9.4 K/mm3 (4.4-11.0)
[2019-04-26 20:26] LABS: Internal QC Validated? YES +Cl - CLEAR BKGD; Pregnancy, Serum, hCG Quali. NEGATIVE Negative
[2019-04-26 20:27] LABS: Erythrocyte Sedimentation Rate 26 mm/hr (0-20)
[2019-04-26 20:33] LABS: CRP < 2.90 mg/L (0.0-3.0)
[2019-04-26 20:54] VITALS: BP 113/73; PULSE 82; RESP 16; TEMP 37.1; O2SAT 97
[2019-04-26] MEDS: Lactated Ringers 1,000 ML 90 ML IV (20:57)
[2019-04-26] MEDS: Acetaminophen 500 MG Tablet 1000 MG PO (21:02)
[2019-04-27] VITALS (11 sets, daily range): BP systolic 105–138; BP diastolic 65–90; PULSE 78–88; RESP 14–18; TEMP 36.7–37.3; O2SAT 96–100; BMI 23.3
[2019-04-27] MEDS: Morphine 2 MG/ML Syringe IV ×2 (06:13→11:29)
[2019-04-27] MEDS: Lactated Ringers 1,000 ML 90 ML IV ×2 (06:56→11:01)
--- NOTE | 2019-04-27 08:15 | NURSING ---
Off unit to OR at this time.
[2019-04-27] MEDS: Cefazolin 2 GM in 0.9% Normal Saline 100 ML IV (08:38)
--- NOTE | 2019-04-27 09:55 | BON_PTH ---
PATIENT: DENYS VERDE LOC: [facility]3 U#:[id number] AGE/SX: 33/F ROOM: GA321 RE04/26/[address]: Dr. Stanislaw Peraza DO : 1985 BED: 1 DIS: 05/03/2019 SPEC #: [id number] RECD: 05/01/19 08:32 STATUS: DEA REQ #: [id number] CORNELL: 04/27/19 09:[address]: Stu Khan DEPT: SURGICAL PATHOLOGY RECD BY: Natan Au ENTERED: 05/01/19 12:00 SP TYPE: Bone OTHR DR: MD Dr. Stanislaw Grove DO Dr. Robert Leininger, MD Out of [facility] Doctor Tissues: Tibia, NOS Procedures: Decalcification bone/plaque Surgery Specimen Level V HEADER OPERATION: Incision, drainage abscess ankle PRE-OP DIAGNOSIS: Cellulitis of left lower leg associated with surgical repair of tib-fib fracture TISSUE SUBMITTED: Left tibia bone MICROSCOPIC DIAGNOSIS Left tibia bone, biopsy: Reparative and reactive change. No evidence of osteomyelitis. AM:daryl 05/06/19 MICROSCOPIC DESCRIPTION Slides are reviewed. GROSS DESCRIPTION Received in fixative is one container labeled with the patient's name and designated left tibial bone. The specimen consists of two irregular fragments of dark major bone that in aggregate measure 0.3 x 0.2 x 0.1 cm. The specimen is totally submitted in one cassette after decalcification. / AM:daryl 05/01/19 TC:5 CPT: 11608, 38106
--- NOTE | 2019-04-27 10:15 | PCM.OPRPT ---
Report of Operation Date of Procedure: 04/27/19 Pre-Operative Diagnosis: Left leg medial and lateral wound infections Post-Operative Diagnosis: Left leg medial and lateral wound infections Surgery/Procedure Performed:: 1. Irrigation debridement left leg wound skin subcutaneous tissue fat fascia and bone lateral wound 111 mm x 30 mm. 2. Irrigation debridement left leg wound skin subcutaneous tissue fat fascia and bone medial wound 117 mm x 46 mm. 3. Placement of wound VAC Description of Surgical Findings:: Aggressive debridement was performed down to healthy bleeding tissue to the best of our ability. catalyst operator: Mike Roper Type of Anesthesia:: General Anesthesiologist: Santy Lainez Special Medications: 2 g Ancef Drains: Medial & lateral wound vacs Estimated Blood Loss (mL): 20 mL Fluids Replaced: Crystalloid Description of Procedure: 33-year-old female was seen and evaluated in the office yesterday by my physician client account assistant. Surgery was performed by one my partners who was not available. I was asked to evaluate the patient patient showed progressive infection with purulent drainage and necrotic tissue around the incisions. Based on the fact that she had been on p.o. antibiotics and had progressive necrosis of the skin and drainage from the wound we discussed bringing her to the operating room in order to adequately debride the wound. We discussed long-term treatment which could include removal of the hardware, bone grafting, external fixator and extensive wound treatment. Patient demonstrated understanding of my plan which was to debride the necrotic tissue and control the infection until her primary surgeon was available for definitive care of the fracture. Risks and benefits of the procedure including balance to blood loss, DVTs, PEs, continued infection, recurrent debridements and loss of life or limb. We also discussed potential for neurovascular damage as in the face of infection some of the small terminal nerves are difficult to identify in the necrotic tissues. Patient demonstrate understanding was able to sign informed consent. On the date of the procedure patient's left leg was marked in the preoperative area. Patient was brought back to the operating room with her transfer the table in the supine position. Anesthesia assumed control C-spine airway and remained controlled throughout the remainder the procedure. Bump was placed underneath the left hip. Tourniquet was placed on left upper thigh. Left lower extremity was positioned appropriately and prepped in a sterile fashion using Betadine. Prior to Betadine prep we did remove the sutures on the medial side and renaldo in the lateral side. I removed the sutures medially my client account assistant remove the sutures laterally. The my client account assistant scrubbed and return to the room with sterile hands. After appropriate donning and clubbing the leg was elevated but appropriate amount of time and tourniquet was placed at the 250 mmHg. At this time I did was directed towards the lateral wound and my client account assistant's attention was directed towards the medial wound. We need started by removing the underlying Vicryl sutures and carefully evacuating the pus. My lateral side the debridement commenced with sharp debridement of the necrotic skin edges and unhealthy skin edges back to good healthy bleeding skin. Once this was done we debrided deeper to the subcutaneous fatty layers fascial layers even down to muscle and tendon layers were tendon linings were inflamed and infected. The plate was left in place as it was adequately fixing the bone and this is the plan previously discussed. We did debride some of the necrotic bone and periosteum around the plate. Once the lateral side was adequately debrided my attention was then directed towards the medial side after my physician client account assistant had adequately evacuated purulent tissue and grossly necrotic tissue. Sharp dissection was then taken around the skin edges again through fat fascia down to muscle and bony tissue. Curette was used to debride any bone and fracture callus that appeared to be infected as well. Once this was done 6 L of normal saline were irrigated throughout the wound. Wound was measured medial wound was 117 mm x 46 mm, lateral wound was 111 mm x 30 mm. At this time a wound VAC was placed one medially and one laterally and protecting the skin the wound vacs were connected so one machine could be used. At this time a soft dressing was placed on the leg and patient was awakened by anesthesia. Postoperative plan: Hospitalist medicine service is recommended to send in vancomycin for antibiotic coverage. Infectious disease will also be consulted. I am going to keep patient on IV antibiotics. Her primary surgeon should be available at the beginning of the week. I will allow him to assume her care. She will likely need recurrent debridement, wound VAC changes and potentially plastic surgery consultation for soft tissue coverage as the plates were exposed at this time. My physician client account assistant plated lateral in this case and helping position the patient, retract soft tissues. He was also vital and helping with the initial debridement of necrotic tissues and evacuation purulent tissue. Is also vital and helping with placement of VAC and dressing at the completion of the case. Grafts/Implants Used: None - Complications No intraoperative complications - Admit VTE Documentation VTE Present on Admission: No VTE Mechan Device Prophylaxis: SCD's VTE Pharm Prophylaxis ordered?: Yes
--- NOTE | 2019-04-27 11:22 | NURSING ---
Entered patient's room after BATTERY PARTS ASSEMBLER brought patient back to room. She is crying stating that her leg hurts. 2 mg morphine given per orders on floor. Patient with little relief. Paged Dr. Khan.
[2019-04-27] MEDS: Vancomycin IV 1,000 MG/200 ML BAG 200 MG IV (11:31)
[2019-04-27 11:38] LABS: Anion Gap 7 (5-15); BUN 10 mg/dL (7-18); BUN/Creat Ratio 15.2 RATIO (10-20); Calcium,Total 8.9 mg/dL (8.5-10.1); Chloride 106 mmol/L (98-107); Creatinine, Serum 0.66 mg/dL (0.55-1.02); EST Glomerular Filtration Rate 109 mL/min (>60); Est Glom Filt Rate - Afr Amer 132 mL/min (>60); Estimated Creatinine Clearance 112.44 ml/min; Glucose 107 mg/dL (74-106); Potassium 3.9 mmol/L (3.5-5.1); Sodium Level 139 mmol/L (136-145)
--- NOTE | 2019-04-27 11:45 | PCM.RX.CS ---
Consult Pharmacy has been consulted to manage selected antiobiotic: Vancomycin Type of Consult: New start Suspected Infection: Skin/Soft tissue Prior Doses of Antibiotics Received/Current Regimen: NONE Labs: Sodium 139 mmol/L (136-145) 04/27/19 11:06 Potassium 3.9 mmol/L (3.5-5.1) 04/27/19 11:06 Chloride 106 mmol/L (98-107) 04/27/19 11:06 Carbon Dioxide 26.0 mmol/L (21.0-32.0) 04/27/19 11:06 Anion Gap 7 (5-15) 04/27/19 11:06 BUN 10 mg/dL (7-18) 04/27/19 11:06 Creatinine 0.66 mg/dL (0.55-1.02) 04/27/19 11:06 Est GFR (MDRD) Af Amer 132 mL/min (>60) 04/27/19 11:06 Est GFR (MDRD) Non-Af 109 mL/min (>60) 04/27/19 11:06 BUN/Creatinine Ratio 15.2 RATIO (10-20) 04/27/19 11:06 Glucose 107 mg/dL (74-106) H 04/27/19 11:06 Weight used for dosin.3 kg Estimated Creatinine Clearance: 112 ML/MIN Goal Trough: 15-20 mcg/mL Pharmacy Plan for Drug Dosing: PLAN/RECOMMENDATIONS 1. Vancomycin initial dose 1000mg IV x1 04/27/19 @1100 2. Vancomycin 1500mg IV Q12hrs to start 04/27/19 @2300 3. Trough prior to 4th total dose per protocol 04/28/19 @2230 4. Pharmacy Service will continue to monitor and adjust dosing as required.
--- NOTE | 2019-04-27 12:29 | PN_ITS ---
Subjective: Chief complaint: Follow-up after consultation for medical management. Patient seen and examined. No acute events overnight. She just came back from the OR. She is complaining of left leg pain, 10 out of 10 in severity, just received IV pain medications. Denies fever chills. She denies any past medical history and she does not take any prescription medications at home on chronic basis. Her vital signs are stable, afebrile. - Physical Exam Vitals/I&O's: Vital Signs Temp Pulse Resp BP Pulse Ox 98.6 F 83 18 120/79 100 04/27/19 11:22 04/27/19 11:22 04/27/19 11:22 04/27/19 11:22 04/27/19 11:22 Oxygen Delivery Method Room Air Weight: 148 lb 6.396 oz Body Mass Index (BMI) 23.3 Intake and Output for Last 24 Hours 04/25/19 04/26/19 04/27/19 23:59 23:59 23:59 Intake Total 373 / 373 2052.5 / 2052.5 Balance 373 / 373 2052.5 / 2052. General: Alert, Oriented x3, Cooperative, - - Distress because of left leg pain. HEENT: Atraumatic, PERRLA, EOMI, Normocephalic Oral: Moist Mucosa, No Gingival or Mucosal Lesions/ Ulcerations Neck: Supple, No JVD, Negative Carotid Bruits, Trachea Midline, Thyroid Normal Size and Texture Lungs: Clear to auscultation, Normal air movement, No rhonchi, No wheeze, No rales, Rhonchi Cardiovascular: Regular rate, Regular Rhythm, Normal S1, Normal S2, No murmurs Abdomen: Bowel Sounds Present, Soft, Non Tender, Non-Distended, No Hepato- splenomegaly Extremities: No clubbing, No cyanosis, No edema Skin: No rashes, No breakdown Lymphatic: No Cervical, Supraclavicular, or Inguinal Adenopathy Neurological: Cranial nerves II-XII grossly intact, Motor Exam 5/5 strength throughout Psych/Mental Status: Normal Affect, Appropriate, Alert and oriented to time, place, person, mood and affect Laboratory Results 04/26/19 19:45: WBC 9.4, RBC 4.48, Hgb 13.1, Hct 38.9, MCV 86.8, MCH 29.2, MCHC 33.7, RDW Std Deviation 37.9, RDW Coeff of Andrea 11.9, Plt Count 490 H, MPV 9.2, Immature Gran % (Auto) 0.200, Neut % (Auto) 61.4, Lymph % (Auto) 27.8, Cedar % (Auto) 8.3, Eos % (Auto) 1.7, Baso % (Auto) 0.6, Absolute Neuts (auto) 5.8, Absolute Lymphs (auto) 2.61, Nucleated RBC % 0, ESR 26 H 04/26/19 19:45: C-React Prot Ext Range < 2.90 04/26/19 19:45: Serum , Qual NEGATIVE 04/27/19 11:06: Sodium 139, Potassium 3.9, Chloride 106, Carbon Dioxide 26.0, Anion Gap 7, BUN 10, Creatinine 0.66, Estim Creat Clear Calc 112.44, Est GFR (MDRD) Af Amer 132, Est GFR (MDRD) Non-Af 109, BUN/Creatinine Ratio 15.2, Glucose 107 H, Calcium 8.9 Current Medications Acetaminophen (Tylenol) 1,000 mg PO Q8 [facility] Last Admin: 04/27/19 05:13 Dose: Not Given Documented by: Aspirin (Aspirin, Baby) 81 mg PO BIDCM [facility] Lactated Ringer's () 1,000 mls @ 90 mls/hr IV .Q11H7M [facility] Last Infusion: 04/27/19 11:31 Dose: 0 mls/hr Documented by: Piperacillin Sod/Tazobactam (Sod 3.375 gm/ Sodium Chloride) 50 mls @ 12.5 mls/hr IV Q8 [facility] Vancomycin IV Pharmacy to Dose (1 ea/ Sodium Chloride) 500 mls @ 250 mls/hr IV PRN PRN; Protocol PRN Reason: Rx to Dose Vancomycin HCl 1,500 mg/ (Sodium Chloride) 530 mls @ 250 mls/hr IV Q12H [facility] Morphine Sulfate () 2 mg IV Q3H PRN PRN PRN Reason: Pain Score 6-10/10 Last Admin: 04/27/19 11:29 Dose: 2 mg Documented by: Ondansetron HCl (Zofran) 4 mg IV Q8H PRN PRN PRN Reason: Nausea Sodium Chloride () 10 - 40 ml IV UD PRN PRN Reason: SALINE FLUSH Tramadol HCl (Ultram) 100 mg PO Q6H PRN PRN PRN Reason: Pain Score 6-10/10 Medical Necessity - Tobacco Use Smoking Status: Never smoker Tobacco Use: Non-smoker Assessment/Plan All Active Problems Fracture of tibial shaft, left, closed (Acute) Left fibular fracture (Acute) This is a 33 years old female patient was admitted directly from her orthopedic surgeon's office for increasing drainage from the incision area on the left leg after she underwent open reduction and internal fixation for comminuted, displaced left tibial distal fracture and left lateral mass fracture on April 11, 2019 and she was admitted for postoperative wound infection. #1 left medial and lateral leg postoperative wound infection: Status post irrigation debridement of the left leg wound, subcutaneous tissue and fascia, postoperative day 0. Patient just came back from the OR. Her vital signs are stable. Routine blood work was unremarkable. Started on IV Zosyn and vancom ycin. Wound cultures pending. She is on IV morphine and tramadol as needed for pain. Orthopedic surgery on the case and managing. #2 recent traumatic comminuted/displaced distal left tibia and left lateral manual fractures: Status post open reduction and internal fixation on April 11, 2019. Complicated by postoperative wound infection. She is on IV pain medications and IV antibiotics. Plan as above. #3 patient had no past medical history of any chronic medical problems and she does not take any medications on chronic basis. At this time, she is medically stable and I will sign off, please call if needed. #4 DVT prophylaxis: Low risk patient, ambulate. This note was generated with [employer] dictation software. It may contain incorrect words, spelling, and punctuation that were not noted in checking the note before signing. Code Visit Inpatient E&M: 46279 Subs Hosp L2
[2019-04-27] MEDS: HYDROmorphone 1 MG/ML Syringe IV ×3 (13:42→20:04)
[2019-04-27] MEDS: traMADol 50 MG Tablet 100 MG PO (14:53)
[2019-04-27] MEDS: Ondansetron 4 MG/2 ML Vial IV (15:53)
[2019-04-27] MEDS: Acetaminophen 500 MG Tablet 1000 MG PO (22:18)
[2019-04-28] MEDS: Lactated Ringers 1,000 ML 90 ML IV ×2 (00:30→15:50)
[2019-04-28] MEDS: HYDROmorphone 1 MG/ML Syringe IV ×5 (00:35→16:41)
[2019-04-28 03:19] VITALS: BP 106/75; PULSE 87; RESP 16; TEMP 36.9; O2SAT 100
[2019-04-28 08:02] VITALS: BP 117/68; PULSE 87; RESP 18; TEMP 36.9; O2SAT 97
[2019-04-28] MEDS: Aspirin 81 MG TAB.CHEW PO ×2 (08:08→15:50)
[2019-04-28] MEDS: 0.9% Saline Lock 10 ML Syringe IV (08:09)
--- NOTE | 2019-04-28 08:13 | PN.ORTHO_ITS ---
Subjective: Patient is doing well. Pain initially not well controlled with morphine. Nausea and vomiting improved. Pain is controlled with Dilaudid and oxycodone as well as Tylenol at this time. No chest pain or shortness of breath this morning. Continuing to follow cultures. - Physical Exam Vitals/I&O's: Vital Signs Temp Pulse Resp BP Pulse Ox 98.5 F 87 18 117/68 97 04/28/19 08:02 04/28/19 08:02 04/28/19 08:02 04/28/19 08:02 04/28/19 08:02 Oxygen Delivery Method Room Air Weight: 148 lb 5.938 oz Body Mass Index (BMI) 23.3 Intake and Output for Last 24 Hours 04/26/19 04/27/19 04/28/19 23:59 23:59 23:59 Intake Total 373 / 373 3458.5 / 3458.5 580 / 580 Output Total 900 / 900 350 / 350 Balance 373 / 373 2558.5 / 2558.5 230 / 230 General: Alert, Oriented x3, Cooperative HEENT: Atraumatic Neck: No JVD Extremities: - - Left lower extremity: Wound VAC in place, functioning well. Patient able to wiggle toes, brisk cap refill. Patient does report subjective intact sensation in sural, saphenous, sufficient peroneal, deep peroneal and tibial nerve distributions. Microbiology Past 72 Hours 04/27/19 09:20 Biopsy - Tissue Gram Stain - Final 04/27/19 09:20 Biopsy - Tissue Gram Stain - Final Laboratory Results 04/27/19 11:06: Sodium 139, Potassium 3.9, Chloride 106, Carbon Dioxide 26.0, Anion Gap 7, BUN 10, Creatinine 0.66, Estim Creat Clear Calc 112.44, Est GFR (MDRD) Af Amer 132, Est GFR (MDRD) Non-Af 109, BUN/Creatinine Ratio 15.2, Glucose 107 H, Calcium 8.9 Current Medications Acetaminophen (Tylenol) 1,000 mg PO Q8 [facility] Last Admin: 04/28/19 05:47 Dose: Not Given Documented by: Aspirin (Aspirin, Baby) 81 mg PO BIDCM [facility] Last Admin: 04/28/19 08:08 Dose: 81 mg Documented by: Hydromorphone HCl (Dilaudid Inj) 1 mg IV Q2H PRN PRN PRN Reason: Pain Score 6-10/10 Last Admin: 04/28/19 08:09 Dose: 1 mg Documented by: Lactated Ringer's () 1,000 mls @ 90 mls/hr IV .Q11H7M [facility] Last Admin: 04/28/19 00:30 Dose: 90 mls/hr Documented by: Piperacillin Sod/Tazobactam (Sod 3.375 gm/ Sodium Chloride) 50 mls @ 12.5 mls/hr IV Q8 [facility] Last Admin: 04/28/19 05:47 Dose: 12.5 mls/hr Documented by: Vancomycin IV Pharmacy to Dose (1 ea/ Sodium Chloride) 500 mls @ 250 mls/hr IV PRN PRN; Protocol PRN Reason: Rx to Dose Vancomycin HCl 1,500 mg/ (Sodium Chloride) 530 mls @ 250 mls/hr IV Q12H [facility] Last Infusion: 04/28/19 00:33 Dose: Infused Documented by: Ondansetron HCl (Zofran) 4 mg IV Q8H PRN PRN PRN Reason: Nausea Last Admin: 04/27/19 15:53 Dose: 4 mg Documented by: Sodium Chloride () 10 - 40 ml IV UD PRN PRN Reason: SALINE FLUSH Last Admin: 04/28/19 08:09 Dose: 10 ml Documented by: Tramadol HCl (Ultram) 100 mg PO Q6H PRN PRN PRN Reason: Pain Score 6-10/10 Last Admin: 04/27/19 14:53 Dose: 100 mg Documented by: Medical Necessity - Tobacco Use Smoking Status: Never smoker Tobacco Use: Non-smoker Assessment/Plan All Active Problems Fracture of tibial shaft, left, closed (Acute) Left fibular fracture (Acute) Left ankle infection after being on fixation tibia and fibula. Postop day 1 from debridement and placement of wound VAC. Continue with ice and elevation. Continue wound VAC care. Going to discuss the case with the patient's primary surgeon this evening as he returns her personal time off. He will begin to assume the care. We will continue on the vancomycin and Zosyn for now. Awaiting ID patient with antibiotic recommendations will be able to see her tomorrow. We will continue with IV antibiotics for now. I would encourage patient that has nausea dissipates to begin oral pain medication regimen. Patient will likely require further debridement however, I am going to leave definitive further treatment plans to the primary surgeon. Currently the necrotic tissue was debrided as well as evacuation of purulent drainage. SAW
[2019-04-28] MEDS: Ondansetron 4 MG/2 ML Vial IV ×2 (08:14→21:26)
[2019-04-28] MEDS: Acetaminophen 500 MG Tablet 1000 MG PO (13:47)
[2019-04-28 14:00] VITALS: BP 125/73; PULSE 80; RESP 18; TEMP 37; O2SAT 98
[2019-04-28] MEDS: traMADol 50 MG Tablet 100 MG PO (20:10)
[2019-04-28 20:15] VITALS: BP 121/81; PULSE 84; RESP 16; TEMP 37.3; O2SAT 97
[2019-04-28 23:29] LABS: Vancomycin, Trough Level 11.7 ug/mL (5.0-15.0)
--- NOTE | 2019-04-29 00:54 | PCM.RX.CS ---
Consult Pharmacy has been consulted to manage selected antiobiotic: Vancomycin Type of Consult: Follow-up Suspected Infection: Skin/Soft tissue Prior Doses of Antibiotics Received/Current Regimen: Medications Vancomycin HCl (Vancomycin) 1,000 mg in 200 mls @ 200 mls/hr IV Q8H [facility] Discontinued Medications Vancomycin HCl 1,500 mg/ (Sodium Chloride) 530 mls @ 250 mls/hr IV Q12H [facility] Last Admin: 04/28/19 22:48 Dose: 250 mls/hr Labs: Sodium 139 mmol/L (136-145) 04/27/19 11:06 Potassium 3.9 mmol/L (3.5-5.1) 04/27/19 11:06 Chloride 106 mmol/L (98-107) 04/27/19 11:06 Carbon Dioxide 26.0 mmol/L (21.0-32.0) 04/27/19 11:06 Anion Gap 7 (5-15) 04/27/19 11:06 BUN 10 mg/dL (7-18) 04/27/19 11:06 Creatinine 0.66 mg/dL (0.55-1.02) 04/27/19 11:06 Est GFR (MDRD) Af Amer 132 mL/min (>60) 04/27/19 11:06 Est GFR (MDRD) Non-Af 109 mL/min (>60) 04/27/19 11:06 BUN/Creatinine Ratio 15.2 RATIO (10-20) 04/27/19 11:06 Glucose 107 mg/dL (74-106) H 04/27/19 11:06 Vancomycin Trough 11.7 ug/mL (5.0-15.0) 04/28/19 22:40 Microbiology: Microbiology 04/27/19 09:20 Biopsy - Tissue Gram Stain - Final 04/27/19 09:20 Biopsy - Tissue Wound Culture - Preliminary Gram negative peyman 04/27/19 09:20 Biopsy - Tissue Gram Stain - Final 04/27/19 09:20 Biopsy - Tissue Wound Culture - Preliminary Gram negative peyman Weight used for dosin.3 kg Estimated Creatinine Clearance: 112 Goal Trough: 15-20 mcg/mL Pharmacy Plan for Drug Dosing: Trough level was low at 11.7 so order was adjusted to 1000mg q8h. Will re-draw trough prior to 4th dose at new regimen. Pharmacy Service will continue to monitor and adjust dosing as required. Follow-Up Labs: Trough Vancomycin Labs to be done on [date and time ordered]: 04/30/19 @2339
[2019-04-29 02:08] VITALS: BP 114/70; PULSE 75; RESP 16; TEMP 37.2; O2SAT 98
[2019-04-29] MEDS: HYDROmorphone 1 MG/ML Syringe IV ×3 (06:16→17:10)
[2019-04-29] MEDS: Lactated Ringers 1,000 ML 90 ML IV ×2 (06:18→19:25)
[2019-04-29] MEDS: Vancomycin IV 1,000 MG/200 ML BAG 200 MG IV (06:22)
[2019-04-29 07:44] VITALS: BP 126/85; PULSE 73; RESP 18; TEMP 36.8; O2SAT 99
[2019-04-29 07:49] VITALS: PULSE 73; RESP 18; O2SAT 99
[2019-04-29] MEDS: 0.9% Saline Lock 10 ML Syringe IV ×4 (09:20→21:21)
[2019-04-29] MEDS: Ondansetron 4 MG/2 ML Vial IV ×2 (09:20→21:21)
[2019-04-29 09:43] VITALS: BP 124/82; PULSE 77; RESP 18; TEMP 36.8; O2SAT 100
[2019-04-29] MEDS: Metoclopramide 10 MG/2 ML Vial IV (11:19)
--- NOTE | 2019-04-29 11:55 | CASEMGMT ---
RN RAMY Face to Face with patient for initial transition planning/care coordination assessment. RN CM introduced self and role at [facility]. Patient lying in bed, alert and oriented. Patient willing to participate in assessment and is able to answer all questions appropriately. Care providers, pharmacy, and demographics verified. Patient wishes to discharge home, with possible need for HHC if requires IV ATBs at discharge. Patient states she has no further needs or concerns at this time. CM to follow for discharge planning needs that may arise. PCP: Gogo Hairston HE[facility]ER Specialists: fernanda Khan Pharmacy: [facility] Insurance: [employer] Prescription Benefit: yes Living Will/HPOA: none LNOK: Living Arrangements: Patient lives with in 2 story home with bed and bath on first floor. Transportation: DME/HHC: Patient has BSC, walker, crutches, and knee scooter at home. Disposition Plan: Patient to discharge home with family support and follow-up plans in place. Will monitor for need for HHC. Kaylah COTTERN, RN, CM
--- NOTE | 2019-04-29 12:32 | PN.ORTHO_ITS ---
Subjective: Patient seen at bedside today resting comfortably. Patient with mother and aunt. Patient denies acute overnight events. Patient states that the pain in her left leg is improving, and her nausea is improving but she still is experiencing nausea. Patient states that she is been able to sleep overnight for periods of time. Patient denies any other acute complaints at this time. Currently patient denies fever, chills, vomiting, shortness of breath, chest pain. Objective: Left lower extremity exam: Wound VAC intact with adequate seal and suction noted 125 mmHg low continuous. Approximately 20 mL of serosanguineous drainage noted. Dressing is clean dry and intact to left foot and leg with no evidence of strikethrough noted. Patient able to move all toes of the left foot. Sensation intact to toes of left foot. - Physical Exam Vitals/I&O's: Vital Signs Temp Pulse Resp BP Pulse Ox 98.3 F 77 18 124/82 H 100 04/29/19 09:43 04/29/19 09:43 04/29/19 09:43 04/29/19 09:43 04/29/19 09:43 Oxygen Delivery Method Room Air Weight: 67.3 kg Body Mass Index (BMI) 23.3 Intake and Output for Last 24 Hours 04/27/19 04/28/19 04/29/19 23:59 23:59 23:59 Intake Total 3458.5 / 3458.5 2837 / 2837 1309.5 / 1309.5 Output Total 900 / 900 350 / 350 850 / 850 Balance 2558.5 / 2558.5 2487 / 2487 459.5 / 459.5 General: Alert, Oriented x3, Cooperative Lungs: Clear to auscultation, Normal air movement Cardiovascular: Regular rate, Regular Rhythm, Normal S1, Normal S2 Abdomen: Bowel Sounds Present, Soft, Non Tender, Non-Distended Extremities: Capillary Refill Less than 3 Seconds - to left foot/toes, No Calf Tenderness - to left calf Psych/Mental Status: Normal Affect, Alert and oriented to time, place, person, mood and affect Microbiology Past 72 Hours 04/27/19 09:20 Biopsy - Tissue Gram Stain - Final 04/27/19 09:20 Biopsy - Tissue Wound Culture - Final Enterobacter cloacae complex 04/27/19 09:20 Biopsy - Tissue Anaerobic Culture - Final No anaerobic bacteria isolated. 04/27/19 09:20 Biopsy - Tissue Gram Stain - Final 04/27/19 09:20 Biopsy - Tissue Wound Culture - Final Enterobacter cloacae complex 04/27/19 09:20 Biopsy - Tissue Anaerobic Culture - Final No anaerobic bacteria isolated. Laboratory Results 04/28/19 22:40: Vancomycin Trough 11.7 Current Medications Acetaminophen (Tylenol) 1,000 mg PO Q8 [facility] Last Admin: 04/29/19 06:21 Dose: Not Given Documented by: Aspirin (Aspirin, Baby) 81 mg PO BIDCM [facility] Last Admin: 04/29/19 09:30 Dose: Not Given Documented by: Hydromorphone HCl (Dilaudid Inj) 1 mg IV Q2H PRN PRN PRN Reason: Pain Score 6-10/10 Last Admin: 04/29/19 09:20 Dose: 1 mg Documented by: Lactated Ringer's () 1,000 mls @ 90 mls/hr IV .[id number] [facility] Last Infusion: 04/29/19 09:12 Dose: 90 mls/hr Documented by: Piperacillin Sod/Tazobactam (Sod 3.375 gm/ Sodium Chloride) 50 mls @ 12.5 mls/hr IV Q8 [facility] Last Infusion: 04/29/19 10:20 Dose: Infused Documented by: Vancomycin IV Pharmacy to Dose (1 ea/ Sodium Chloride) 500 mls @ 250 mls/hr IV PRN PRN; Protocol PRN Reason: Rx to Dose Vancomycin HCl (Vancomycin) 1,000 mg in 200 mls @ 200 mls/hr IV Q8H [facility] Last Infusion: 04/29/19 07:22 Dose: Infused Documented by: Sodium Chloride () 250 mls @ 15 mls/hr IV .[id number] PRN PRN Reason: Saline Flush Last Infusion: 04/29/19 06:21 Dose: 0 mls/hr Documented by: Metoclopramide HCl (Reglan) 5 mg IV Q6 [facility] Ondansetron HCl (Zofran) 4 mg IV Q8H PRN PRN PRN Reason: Nausea Last Admin: 04/29/19 09:20 Dose: 4 mg Documented by: Sodium Chloride () 10 - 40 ml IV UD PRN PRN Reason: SALINE FLUSH Last Admin: 04/29/19 11:19 Dose: 10 ml Documented by: Tramadol HCl (Ultram) 100 mg PO Q6H PRN PRN PRN Reason: Pain Score 6-10/10 Last Admin: 04/28/19 20:10 Dose: 100 mg Documented by: Medical Necessity - Tobacco Use Smoking Status: Never smoker Tobacco Use: Non-smoker Assessment/Plan All Active Problems Fracture of tibial shaft, left, closed (Acute) Left fibular fracture (Acute) Patient chart reviewed and patient evaluated. I appreciate the help of Dr. Khan and assisting with this case. Patient is postoperative day 2 from debridement and placement of wound VAC. Full discussion had with patient, aunt, and mother about her current clinical condition. I discussed with the patient that further operative intervention will need to be performed. This includes further debridement, washout, and application of wound VAC at this time. I discussed with the patient that I would like to leave in the hardware at this time to filter tank tender helper head in the healing of the fractures. I discussed with the patient that removal of hardware may be necessary due to the infectious process pending further clinical outcome, and she may need application of external fixator. I expand to the patient the causes of this dehiscence, including infection and suture reaction. Due to both incisions dehiscing to the extent that they have been, there is a possibility that this may be a Vicryl suture reaction. The Vicryl suture reaction may have started the infectious process. I discussed with the patient that we will be consulting infectious disease for further antibiotic management. I discussed with the patient that she may need a PICC placement pending infectious disease input. We will continue on the vancomycin and Zosyn for now. I appreciate ID input and assistance with this patient. I discussed with the patient that we will be consulting plastic surgery to aid in the assistance of closure of her wounds. At this time I discussed with the patient the results of the cultures. I would like to take her to surgery tomorrow, 04/30, in the afternoon for further debridement, washout, and wound VAC change. I am awaiting further input from plastic surgery at that options that they can perform as well, and will plan on further definitive operative intervention after speaking with them. Continue with ice and elevation. Continue wound VAC care. Patient and patient's family displayed verbal understanding at this time. They are all agreeable to the current treatment plan at this time. All their questions were answered to their satisfaction and all their concerns were addressed.
--- NOTE | 2019-04-29 15:09 | CON.PCM_ITS ---
Problem List (1) Osteomyelitis Status: Acute Reason for Consult: osteo Consulted by: Dr. Khan History of Present Illness: The patient is a 33 year old F who broke her L ankle while ice skating. Taken to OR 04/11/[address] Hairston for ORIF. Did ok post op until 04/26, seen in ortho office with increased pain, redness, drainage. Given rx for augmentin, sx worsened. No fever. Taken to OR 04/[address] Khan for I&D. Wound cx sent. On vanc/zosyn. Feeling ok, no n/v/d. Plan is for OR again tomorrow. Full ROS performed and neg except as noted above. Denies any prior h/o abscess or MRSA. - Medical History Allergies/Adverse Reactions: Allergies No Known Allergies Allergy (Verified 04/11/19 09:54) Home Medications: Ambulatory Orders Medication Instructions Recorded Lorazepam [Ativan] 0.5 mg PO Q8H PRN PRN 03/31/19 Hydrocodone/Acetaminophen [[place] 1 ea PO Q4H PRN PRN 04/05/19 5-325 Tablet] Amoxicillin/Potassium Clav 1 tab PO BID 04/26/19 [Amox-Clav 875-125 mg Tablet] - Social History SMOKING STATUS:: Never smoker Vital Signs Temp Pulse Resp BP Pulse Ox 98.3 F 77 18 124/82 H 100 04/29/19 09:43 04/29/19 09:43 04/29/19 09:43 04/29/19 09:43 04/29/19 09:43 Oxygen Delivery Method Room Air Weight: 67.3 kg Body Mass Index (BMI) 23.3 Microbiology Past 72 Hours 04/27/19 09:20 Gram Stain - Final Biopsy - Tissue Wound Culture - Final Enterobacter cloacae complex Anaerobic Culture - Final No anaerobic bacteria isolated. 04/27/19 09:20 Gram Stain - Final Biopsy - Tissue Wound Culture - Final Enterobacter cloacae complex Anaerobic Culture - Final No anaerobic bacteria isolated. Laboratory Tests Past 24 Hrs 04/28/19 22:40 Vancomycin Trough 11.7 - Other Studies Radiology: [] reviewed Other Studies: [] Route of nutrition/ use of supplements: [] Nutritional Intake: [] IV Site: [] Sampson Catheter: [] - Physical Exam General: Alert, Oriented x3, Cooperative, No apparent distress HEENT: Atraumatic, PERRLA, EOMI Neck: Supple, No Nodes Lungs: Clear to auscultation, Normal air movement Cardiovascular: Regular rate, Regular Rhythm Abdomen: Soft, Non Tender, Non-Distended Extremities: No edema - LLE wrapped Skin: Ulcer/ Wound - bandaged IV Site: Peripheral, without redness Musculoskeletal: No Tenderness to Palpation of Joints or Extremities Neurological: Cranial nerves II-XII grossly intact - Assessment/Plan Antibiotics: [] Assessment/Plan: [] LLE osteo with hardware involvement s/p ORIF 04/11/[address] Hairston. Now s/p I&D by Dr. Khan 04/27. Two surg cxs with enterobacter. Will stop vanc. Cont zosyn. OR planned for tomorrow. She reports tolerating bactrim and cipro in the past with no issue. If no other organisms show up on cxs, tentative plan will be for po bactrim DS at discharge which should have good bone/joint penetration and would avoid picc. If infected hardware remains in place, likely will need fpc suppressive abx. Will follow, d/w piano case and bench assembler. Thank you.
[2019-04-29] MEDS: Metoclopramide 10 MG/2 ML Vial 5 MG IV (17:10)
[2019-04-29] MEDS: Aspirin 81 MG TAB.CHEW PO (17:11)
[2019-04-29 17:14] VITALS: BP 120/80; PULSE 75; RESP 18; TEMP 36.9; O2SAT 100
--- NOTE | 2019-04-29 17:54 | PCM.PN.HOSP ---
Patient Problems: Active and Suspected Problems Osteomyelitis (Acute) Subjective: Seen and examined. Patient complaining of nausea/dry heaving since yesterday. Reglan 10 mg IV ordered. Patient admitted for left ankle; medial and lateral wound infection status post irrigation and debridement. Vitals/I&O's: Vital Signs Temp Pulse Resp BP Pulse Ox 98.5 F 75 18 120/80 100 04/29/19 17:14 04/29/19 17:14 04/29/19 17:14 04/29/19 17:14 04/29/19 17:14 Oxygen Delivery Method Room Air Weight: 148 lb 5.938 oz Body Mass Index (BMI) 23.3 Intake and Output for Last 24 Hours 04/27/19 04/28/19 04/29/19 23:59 23:59 23:59 Intake Total 3458.5 / 3458.5 2837 / 2837 1909.5 / 1909.5 Output Total 900 / 900 350 / 350 1350 / 1350 Balance 2558.5 / 2558.5 2487 / 2487 559.5 / 559.5 General: Alert, Oriented x3, Cooperative HEENT: Atraumatic, PERRLA, EOMI, Normocephalic Neck: Supple, No JVD, Negative Carotid Bruits Lungs: Clear to auscultation, Normal air movement, No rhonchi, No wheeze, No rales Cardiovascular: Regular rate, Regular Rhythm, Normal S1, Normal S2, No murmurs Abdomen: Bowel Sounds Present, Soft, Non Tender, Non-Distended Extremities: No edema, Capillary Refill Less than 3 Seconds Skin: No rashes, No breakdown Musculoskeletal: No Tenderness to Palpation of Joints or Extremities, Arthritic Changes Neurological: Cranial nerves II-XII grossly intact Psych/Mental Status: Normal Affect, Appropriate Microbiology Past 72 Hours 04/27/19 09:20 Biopsy - Tissue Gram Stain - Final 04/27/19 09:20 Biopsy - Tissue Wound Culture - Final Enterobacter cloacae complex 04/27/19 09:20 Biopsy - Tissue Anaerobic Culture - Final No anaerobic bacteria isolated. 04/27/19 09:20 Biopsy - Tissue Gram Stain - Final 04/27/19 09:20 Biopsy - Tissue Wound Culture - Final Enterobacter cloacae complex 04/27/19 09:20 Biopsy - Tissue Anaerobic Culture - Final No anaerobic bacteria isolated. Laboratory Results 04/28/19 22:40: Vancomycin Trough 11.7 Current Medications Acetaminophen (Tylenol) 1,000 mg PO Q8 [facility] Last Admin: 04/29/19 13:39 Dose: Not Given Documented by: Aspirin (Aspirin, Baby) 81 mg PO BIDCM [facility] Last Admin: 04/29/19 17:11 Dose: 81 mg Documented by: Hydromorphone HCl (Dilaudid Inj) 1 mg IV Q2H PRN PRN PRN Reason: Pain Score 6-1010 Last Admin: 04/29/19 17:10 Dose: 1 mg Documented by: Lactated Ringer's () 1,000 mls @ 90 mls/hr IV .[id number] [facility] Last Infusion: 04/29/19 09:12 Dose: 90 mls/hr Documented by: Piperacillin Sod/Tazobactam (Sod 3.375 gm/ Sodium Chloride) 50 mls @ 12.5 mls/hr IV Q8 [facility] Last Admin: 04/29/19 13:40 Dose: 12.5 mls/hr Documented by: Sodium Chloride () 250 mls @ 15 mls/hr IV .[id number] PRN PRN Reason: Saline Flush Last Infusion: 04/29/19 06:21 Dose: 0 mls/hr Documented by: Metoclopramide HCl (Reglan) 5 mg IV Q6 PRN PRN Reason: NAUSEA/VOMITING Last Admin: 04/29/19 17:10 Dose: 5 mg Documented by: Ondansetron HCl (Zofran) 4 mg IV Q8H PRN PRN PRN Reason: Nausea Last Admin: 04/29/19 09:20 Dose: 4 mg Documented by: Sodium Chloride () 10 - 40 ml IV UD PRN PRN Reason: SALINE FLUSH Last Admin: 04/29/19 17:10 Dose: 10 ml Documented by: Tramadol HCl (Ultram) 100 mg PO Q6H PRN PRN PRN Reason: Pain Score 6-10/10 Last Admin: 04/28/19 20:10 Dose: 100 mg Documented by: STROKE Vital Signs/Narrative: Vital Signs Temp Pulse Resp BP Pulse Ox 04/29/19 17:14 98.5 F 75 18 120/80 100 Medical Necessity - Tobacco Use Smoking Status: Never smoker Tobacco Use: Non-smoker Assessment/Plan All Active Problems Osteomyelitis (Acute) Fracture of tibial shaft, left, closed (Acute) Left fibular fracture (Acute) This is a 33 years old female patient was admitted directly from her orthopedic surgeon's office for increasing drainage from the incision area on the left leg after she underwent open reduction and internal fixation for comminuted, displaced left tibial distal fracture and left lateral mass fracture on April 11, 2019. She had left leg medial and lateral wound infection status post irrigation and debridement on April 27, [address] Khan. #1 left medial and lateral leg postoperative wound infection: Status post irrigation debridement of the left leg wound, subcutaneous tissue and fascia, postoperative day 2. Initially, patient was on IV Zosyn and vancomycin then vancomycin discontinued. CRP less than 2.9. No fever or chills. Hemodynamically stable. 2 Tissue biopsy culture shows Enterobacter cloaca. The plan for or tomorrow. #2 recent traumatic comminuted/displaced distal left tibia and left lateral manual fractures: Status post open reduction and internal fixation on April 11, 2019. Complicated by postoperative wound infection. As mentioned above #3 DVT prophylaxis: Low risk patient, ambulate. Code Visit Inpatient E&M: 94553 Subs Hosp L2
[2019-04-29 21:39] VITALS: BP 121/76; PULSE 71; RESP 16; TEMP 37.1; O2SAT 96
[2019-04-30] VITALS (14 sets, daily range): BP systolic 108–133; BP diastolic 68–82; PULSE 54–84; RESP 16–18; TEMP 36.4–37.2; O2SAT 94–100; BMI 23.2
[2019-04-30] MEDS: Metoclopramide 10 MG/2 ML Vial 5 MG IV ×2 (00:13→11:39)
[2019-04-30] MEDS: 0.9% Saline Lock 10 ML Syringe IV ×2 (00:13→05:54)
[2019-04-30] MEDS: Polyethylene Glycol 3350 17 GM PACKET PO (00:13)
[2019-04-30] MEDS: Acetaminophen 500 MG Tablet 1000 MG PO ×3 (00:13→22:17)
[2019-04-30] MEDS: Ondansetron 4 MG/2 ML Vial IV (05:54)
[2019-04-30] MEDS: Lactated Ringers 1,000 ML 90 ML IV ×2 (05:54→18:36)
--- NOTE | 2019-04-30 09:18 | NURSING ---
@ 0900, pharmacy called d/t scopalamine patch has not arrived and not stocked in accudose-they will send
[2019-04-30] MEDS: Scopolamine 1mg/72hr Patch 1 PATCH TD (09:24)
--- NOTE | 2019-04-30 09:50 | PCM.PN.ID ---
Patient Problems: Active and Suspected Problems Osteomyelitis (Acute) Subjective: OR today, some nausea, no fever, no diarrhea - Physical Exam Vitals/I&O's: Vital Signs Temp Pulse Resp BP Pulse Ox 99 F 71 16 128/71 H 96 04/30/19 06:00 04/30/19 06:00 04/30/19 06:00 04/30/19 06:00 04/30/19 06:00 Oxygen Delivery Method Room Air Weight: 67.3 kg Body Mass Index (BMI) 23.2 Intake and Output for Last 24 Hours 04/28/19 04/29/19 04/30/19 23:59 23:59 23:59 Intake Total 2837 / 2837 2879.0 / 2879.0 1164.5 / 1164.5 Output Total 350 / 350 1350 / 1350 400 / 400 Balance 2487 / 2487 1529.0 / 1529.0 764.5 / 764.5 General: Alert, Cooperative, No apparent distress Lungs: Clear to auscultation, Normal air movement Cardiovascular: Regular rate, Regular Rhythm Abdomen: Soft, Non Tender, Non-Distended Skin: Ulcer/ Wound - wrapped LLE Microbiology Past 72 Hours 04/27/19 09:20 Biopsy - Tissue Gram Stain - Final 04/27/19 09:20 Biopsy - Tissue Wound Culture - Final Enterobacter cloacae complex 04/27/19 09:20 Biopsy - Tissue Anaerobic Culture - Final No anaerobic bacteria isolated. 04/27/19 09:20 Biopsy - Tissue Gram Stain - Final 04/27/19 09:20 Biopsy - Tissue Wound Culture - Final Enterobacter cloacae complex 04/27/19 09:20 Biopsy - Tissue Anaerobic Culture - Final No anaerobic bacteria isolated. Current Medications Acetaminophen (Tylenol) 1,000 mg PO Q8 [facility] Last Admin: 04/30/19 08:16 Dose: Not Given Documented by: Aspirin (Aspirin, Baby) 81 mg PO BIDCM [facility] Last Admin: 04/30/19 08:16 Dose: Not Given Documented by: Hydromorphone HCl (Dilaudid Inj) 1 mg IV Q2H PRN PRN PRN Reason: Pain Score 6-10/10 Last Admin: 04/29/19 17:10 Dose: 1 mg Documented by: Lactated Ringer's () 1,000 mls @ 90 mls/hr IV .[id number] [facility] Last Admin: 04/30/19 05:54 Dose: 90 mls/hr Documented by: Piperacillin Sod/Tazobactam (Sod 3.375 gm/ Sodium Chloride) 50 mls @ 12.5 mls/hr IV Q8 [facility] Last Admin: 04/30/19 06:05 Dose: 12.5 mls/hr Documented by: Sodium Chloride () 250 mls @ 15 mls/hr IV .[id number] PRN PRN Reason: Saline Flush Last Infusion: 04/30/19 06:05 Dose: 0 mls/hr Documented by: Metoclopramide HCl (Reglan) 5 mg IV Q6 PRN PRN Reason: NAUSEA/VOMITING Last Admin: 04/30/19 00:13 Dose: 5 mg Documented by: Ondansetron HCl (Zofran) 4 mg IV Q8H PRN PRN PRN Reason: Nausea Last Admin: 04/30/19 05:54 Dose: 4 mg Documented by: Polyethylene Glycol (Miralax) 17 gm PO DAILY [facility] Last Admin: 04/30/19 08:16 Dose: Not Given Documented by: Scopolamine HBr (Transderm-Scop) 1 patch TD Q3D [facility] Last Admin: 04/30/19 09:24 Dose: 1 patch Documented by: Senna/Docusate Sodium (Senokot-S, Dawn-Colace) 2 tablet PO BID PRN PRN Reason: Constipation Sodium Chloride () 10 - 40 ml IV UD PRN PRN Reason: SALINE FLUSH Last Admin: 04/30/19 05:54 Dose: 10 ml Documented by: Tramadol HCl (Ultram) 100 mg PO Q6H PRN PRN PRN Reason: Pain Score 6-10/10 Last Admin: 04/28/19 20:10 Dose: 100 mg Documented by: Medical Necessity - Tobacco Use Smoking Status: Never smoker Tobacco Use: Non-smoker Route of nutrition/ use of supplements: [] Nutritional Intake: [] IV Site: [] Sampson Catheter: [] - Assessment/Plan Antibiotics: [] Assessment/Plan: [] LLE osteo with hardware involvement s/p ORIF 04/11/[address] Hairston. Now s/p I&D by Dr. Khan 04/27. Two surg cxs with enterobacter. Cont zosyn. OR planned for today. She reports tolerating bactrim and cipro in the past with no issue. If no other organisms show up on cxs, tentative plan will be for po bactrim DS at discharge which should have good bone/joint penetration and would avoid picc. If infected hardware remains in place, likely will need custodial suppressive abx. Will follow
[2019-04-30] MEDS: Lactated Ringers 1,000 ML 100 ML IV ×2 (13:46→18:11)
--- NOTE | 2019-04-30 14:23 | PCM.PN.HOSP ---
Patient Problems: Active and Suspected Problems Osteomyelitis (Acute) Subjective: Patient is scheduled for or today with second look ankle joint wound inspection and debridement Vitals/I&O's: Vital Signs Temp Pulse Resp BP Pulse Ox 98.0 F 70 18 133/82 H 100 04/30/19 11:49 04/30/19 11:49 04/30/19 11:49 04/30/19 11:49 04/30/19 11:49 Oxygen Delivery Method Room Air Weight: 148 lb 5.938 oz Body Mass Index (BMI) 23.2 Intake and Output for Last 24 Hours 04/28/19 04/29/19 04/30/19 23:59 23:59 23:59 Intake Total 2837 / 2837 2879.0 / 2879.0 1334.5 / 1334.5 Output Total 350 / 350 1350 / 1350 400 / 400 Balance 2487 / 2487 1529.0 / 1529.0 934.5 / 934.5 General: Alert, Oriented x3, Cooperative HEENT: Atraumatic, PERRLA, EOMI, Normocephalic Neck: Supple, No JVD, Negative Carotid Bruits Lungs: Clear to auscultation, Normal air movement, No rhonchi, No wheeze, No rales Cardiovascular: Regular rate, Regular Rhythm, Normal S1, Normal S2, No murmurs Abdomen: Bowel Sounds Present, Soft, Non Tender, Non-Distended Extremities: No edema, Capillary Refill Less than 3 Seconds Skin: No rashes, No breakdown Musculoskeletal: Tenderness, - - Left ankle and Eamon wrap bandage. Neurological: Cranial nerves II-XII grossly intact Psych/Mental Status: Normal Affect, Appropriate Microbiology Past 72 Hours 04/27/19 09:20 Biopsy - Tissue Gram Stain - Final 04/27/19 09:20 Biopsy - Tissue Wound Culture - Final Enterobacter cloacae complex 04/27/19 09:20 Biopsy - Tissue Anaerobic Culture - Final No anaerobic bacteria isolated. 04/27/19 09:20 Biopsy - Tissue Gram Stain - Final 04/27/19 09:20 Biopsy - Tissue Wound Culture - Final Enterobacter cloacae complex 04/27/19 09:20 Biopsy - Tissue Anaerobic Culture - Final No anaerobic bacteria isolated. Current Medications Acetaminophen (Tylenol) 1,000 mg PO Q8 [facility] Last Admin: 04/30/19 08:16 Dose: Not Given Documented by: Aspirin (Aspirin, Baby) 81 mg PO BIDCM [facility] Last Admin: 04/30/19 08:16 Dose: Not Given Documented by: Hydromorphone HCl (Dilaudid Inj) 1 mg IV Q2H PRN PRN PRN Reason: Pain Score 6-10/10 Last Admin: 04/29/19 17:10 Dose: 1 mg Documented by: Lactated Ringer's () 1,000 mls @ 90 mls/hr IV .Q11H7M [facility] Last Admin: 04/30/19 05:54 Dose: 90 mls/hr Documented by: Piperacillin Sod/Tazobactam (Sod 3.375 gm/ Sodium Chloride) 50 mls @ 12.5 mls/hr IV Q8 [facility] Last Infusion: 04/30/19 10:05 Dose: Infused Documented by: Sodium Chloride () 250 mls @ 15 mls/hr IV .[id number] PRN PRN Reason: Saline Flush Last Infusion: 04/30/19 06:05 Dose: 0 mls/hr Documented by: Lactated Ringer's () 1,000 mls @ 100 mls/hr IV .Q10H [facility] Last Admin: 04/30/19 13:46 Dose: 100 mls/hr Documented by: Metoclopramide HCl (Reglan) 5 mg IV Q6 PRN PRN Reason: NAUSEA/VOMITING Last Admin: 04/30/19 11:39 Dose: 5 mg Documented by: Nutritional Formula (Lactose Free) (Ensure Enlive) 120 ml PO 4X/DAY [facility] Ondansetron HCl (Zofran) 4 mg IV Q8H PRN PRN PRN Reason: Nausea Last Admin: 04/30/19 05:54 Dose: 4 mg Documented by: Polyethylene Glycol (Miralax) 17 gm PO DAILY [facility] Last Admin: 04/30/19 08:16 Dose: Not Given Documented by: Scopolamine HBr (Transderm-Scop) 1 patch TD Q3D [facility] Last Admin: 04/30/19 09:24 Dose: 1 patch Documented by: Senna/Docusate Sodium (Senokot-S, Dawn-Colace) 2 tablet PO BID PRN PRN Reason: Constipation Sodium Chloride () 10 - 40 ml IV UD PRN PRN Reason: SALINE FLUSH Last Admin: 04/30/19 05:54 Dose: 10 ml Documented by: Tramadol HCl (Ultram) 100 mg PO Q6H PRN PRN PRN Reason: Pain Score 6-10 Last Admin: 04/28/19 20:10 Dose: 100 mg Documented by: STROKE Vital Signs/Narrative: Vital Signs Temp Pulse Resp BP Pulse Ox 04/30/19 11:49 98.0 F 70 18 133/82 H 100 04/30/19 11:42 98.0 F 70 18 133/81 H 100 Medical Necessity - Tobacco Use Smoking Status: Never smoker Tobacco Use: Non-smoker Assessment/Plan All Active Problems Osteomyelitis (Acute) Fracture of tibial shaft, left, closed (Acute) Left fibular fracture (Acute) This is a 33 years old female patient was admitted directly from her orthopedic surgeon's office for increasing drainage from the incision area on the left leg after she underwent open reduction and internal fixation for comminuted, displaced left tibial distal fracture and left lateral mass fracture on April 11, 2019. She had left leg medial and lateral wound infection status post irrigation and debridement on April 27, [address] Khan. #1 left medial and lateral leg postoperative wound infection: Status post irrigation debridement of the left leg wound, subcutaneous tissue and fascia, postoperative day 2. Initially, patient was on IV Zosyn and vancomycin then vancomycin discontinued. CRP less than 2.9. No fever or chills. Hemodynamically stable. Two Tissue biopsy culture shows Enterobacter cloaca. Enterobacter is sensitive to Zosyn, Cipro and Bactrim. Pt is scheduled for or today. #2 recent traumatic comminuted/displaced distal left tibia and left lateral manual fractures: Status post open reduction and internal fixation on April 11, 2019. Complicated by postoperative wound infection. As mentioned above #3 DVT prophylaxis: Low risk patient, ambulate. Active Medications Acetaminophen (Tylenol) 1,000 mg PO Q8 [facility] Last Admin: 04/30/19 08:16 Dose: Not Given Documented by: Aspirin (Aspirin, Baby) 81 mg PO BIDCM [facility] Last Admin: 04/30/19 08:16 Dose: Not Given Documented by: Hydromorphone HCl (Dilaudid Inj) 1 mg IV Q2H PRN PRN PRN Reason: Pain Score 6-03/21 Last Admin: 04/29/19 17:10 Dose: 1 mg Documented by: Lactated Ringer's () 1,000 mls @ 90 mls/hr IV .Q11H7M [facility] Last Admin: 04/30/19 05:54 Dose: 90 mls/hr Documented by: Piperacillin Sod/Tazobactam (Sod 3.375 gm/ Sodium Chloride) 50 mls @ 12.5 mls/hr IV Q8 [facility] Last Infusion: 04/30/19 10:05 Dose: Infused Documented by: Sodium Chloride () 250 mls @ 15 mls/hr IV .[id number] PRN PRN Reason: Saline Flush Last Infusion: 04/30/19 06:05 Dose: 0 mls/hr Documented by: Lactated Ringer's () 1,000 mls @ 100 mls/hr IV .Q10H [facility] Last Admin: 04/30/19 13:46 Dose: 100 mls/hr Documented by: Metoclopramide HCl (Reglan) 5 mg IV Q6 PRN PRN Reason: NAUSEA/VOMITING Last Admin: 04/30/19 11:39 Dose: 5 mg Documented by: Nutritional Formula (Lactose Free) (Ensure Enlive) 120 ml PO 4X/DAY [facility] Ondansetron HCl (Zofran) 4 mg IV Q8H PRN PRN PRN Reason: Nausea Last Admin: 04/30/19 05:54 Dose: 4 mg Documented by: Polyethylene Glycol (Miralax) 17 gm PO DAILY [facility] Last Admin: 04/30/19 08:16 Dose: Not Given Documented by: Scopolamine HBr (Transderm-Scop) 1 patch TD Q3D [facility] Last Admin: 04/30/19 09:24 Dose: 1 patch Documented by: Senna/Docusate Sodium (Senokot-S, Dawn-Colace) 2 tablet PO BID PRN PRN Reason: Constipation Sodium Chloride () 10 - 40 ml IV UD PRN PRN Reason: SALINE FLUSH Last Admin: 04/30/19 05:54 Dose: 10 ml Documented by: Tramadol HCl (Ultram) 100 mg PO Q6H PRN PRN PRN Reason: Pain Score 6-10/10 Last Admin: 04/28/19 20:10 Dose: 100 mg Documented by: Code Visit Inpatient E&M: [id number] [facility] Hosp L2
--- NOTE | 2019-04-30 17:50 | OP.PCM_ITS ---
Problem List (1) Full-thickness skin dehiscence Status: Acute Qualifiers: Encounter type: subsequent encounter Qualified Code(s): T81.31XD - Disruption of external operation (surgical) wound, not elsewhere classified, subsequent encounter (2) Infection of skin and subcutaneous tissue Status: Acute Report of Operation Date of Procedure: 04/30/19 Pre-Operative Diagnosis: 1. Infection medial and lateral ankle wounds. #2 surgical dehiscence medial and lateral ankle wounds, full-thickness. Post-Operative Diagnosis: 1. Infection medial and lateral ankle wounds. #2 surgical dehiscence medial and lateral ankle wounds, full-thickness. Surgery/Procedure Performed:: 1. Debridement of nonviable tissue of the left medial and lateral ankle wounds down to including level of tendon, muscle, fascia. 2. washout of left medial and lateral ankle wounds. 3. application of synthetic skin substitute to left medial and lateral ankle wounds. #4 application of wound VAC to wound of left medial and lateral ankle wounds Description of Surgical Findings:: Consistent with diagnosis. Healthy active bleeding noted within both wounds. No evidence of tissue necrosis noted. Adequate seal and suction of wound VAC noted at 125 mmHg low continuous. Type of Anesthesia:: General Anesthesiologist: Ozzie Rubin Specimen's removed: 1. bone biopsy for pathology of the tibia. 2. wound culture of medial ankle wound for aerobic and anaerobic organisms status post washout. 3. wound culture of the lateral leg wound for aerobic and anaerobic organisms status post washout. Drains: Wound VAC to medial and lateral wounds at 125 mmHg low continuous Estimated Blood Loss (mL): Approximat Description of Procedure: Hemostasis: Anatomic dissection Materials: 1.) Integra bilayer graft 5 inches x 4 inches. 2.) By medics amnio fill. 3.) skin renaldo. 4.) Black foam and associated wound VAC tape Injectables: None Complications: None Condition: stable Indications: 33-year-old female was seen and evaluated in the office on 04/26 2 weeks s/p ORIF of tibia and fibula fractures by me. Surgery took place on 04/11. Patient followed up with Dr. Khan on that day, and evidence of infection with skin necrosis was noted. Patient was subsequently admitted for debridement and antibiotics. Dr. Khan performed the initial debridement on 04/27. After ev aluating the patient myself, I discussed with the patient all of her current options at this point. This included removal of hardware, along with application of external fixator. Furthermore this included debridement of the wound with plastic surgery involvement and possible applications of grafts. Other options including leaving the hardware intact for stabilization and removing the hardware at a later date after fracture was healed. Patient states that this time she would not like an external fixator application and would like to leave the hardware intact. I discussed with the patient that she may need an external fixator at some point. Patient displayed verbal understanding. Plastic surgery consultation was placed to Dr. Clifton for assistance in healing these wounds. Operative report: Before the patient was brought to the operating room, arisks, benefits, possible outcomes, possible complications of the procedure were discussed with the patient including blood loss, DVTs, PEs, continued infection, recurrent debridements and loss of life or limb . All patient questions were answered to her satisfaction and all of her concerns were addressed. No guarantees were made as to the outcome of the procedure. We also discussed potential for neurovascular damage as in the face of infection some of the small terminal nerves are difficult to identify in the necrotic tissues. Patient understood all aspects of the procedure and consent was then signed by the patient. Patient was then brought to the operating room placed on the operating table in supine position. Dr. trevino from plastic surgery was present for the beginning of the case and states that he will help assist in the care of this patient. At this time he agrees to the debridement with a washout and application of a synthetic skin substitute with a wound VAC. We will monitor granulation formation over this time. He he states that the hardware can be left for stabilization, but will likely need to be removed in a later day. After timeout, under general anesthesia, the dressing and the wound VAC were removed from the left foot ankle and leg. At this time inspection of the wound was performed and healthy adequate bleeding was noted. The left foot ankle and leg were then scrubbed prepped and draped in the usual sterile manner. Attention was then directed to the medial wound located on the medial aspect the left leg. Evidence of hardware exposure was noted. At this time a curette was used to remove any necrotic and nonviable tissue contained within the wound. Healthy active bleeding was noted. The wound was then measured to be 11 cm x 4 cm x2 cm. Attention was then directed to the lateral wound on the lateral aspect of left ankle. At this time hardware exposure was noted as well. Next a curette was used to remove any nonviable fibrotic tissue contained within the surgical site. Healthy adequate bleeding was noted. This wound was then measured to be 10 cm x 3 cm x 1.5 cm. After these debridements were performed, the remaining tissue in both wounds appeared healthy with no signs of active necrosis. At this time 3 L of normal sterile saline was used to irrigate the lateral wound and another 3 L of normal sterile saline was used to irrigate the medial wound. The left foot ankle leg were then reprepped and draped. Next, amnio fill was placed into each wound along the wound edges. Next the Integra bilayer graft was cut to appropriate size and was adhered to the medial and lateral wounds via skin renaldo. Next black foam was cut to appropriate size and was adhered to each wound site utilizing the wound VAC tape. A bridge was then placed on the anterior aspect the left ankle with adequate taping against the skin to avoid maceration. This bridege was so that one VAC can be used. At this time the wound VAC was then placed on the left ankle and adequate seal and suction was noted at 125 mmHg low continuous. The surgical site was then dressed with a dry sterile dressing consisting of 4 x 4 gauze wrapped with Kerlix. The left foot ankle leg were then wrapped with an Eamon bandage. Neurovascular status was assessed at the end the procedure and was deemed intact to left lower extremity. Patient tolerated the anesthesia the procedure well and was transported to the PACU with vital signs stable neurovascular status intact to left lower extremity. After grade of postoperative monitoring patient be transferred back to the general medical floor. Postoperative plan: Continuation of IV antibiotics per ID. Dr. Clifton will assist in the care of this patient. Discussions were had about current care. AT this time, we will continue Wound VAC therapy and allow the graft that was placed to take. Will continue to discuss with patient and family about current treatment plan, which will likely include recurrent debridements, wound VAC changes, and assistance with soft tissue coverage by Dr. Clifton. At some point the hardware will need to be removed, but we will monitor for healing of bone fracture first before this is to be done. . - Admit VTE Documentation VTE Present on Admission: No
[2019-04-30] MEDS: HYDROmorphone 1 MG/ML Syringe IV ×2 (19:59→22:16)
[2019-05-01 03:12] VITALS: BP 103/57; PULSE 66; RESP 16; TEMP 37; O2SAT 96
[2019-05-01] MEDS: Lactated Ringers 1,000 ML 90 ML IV (04:41)
[2019-05-01] MEDS: Acetaminophen 500 MG Tablet 1000 MG PO ×2 (06:03→22:06)
[2019-05-01] MEDS: Senna/Docusate Sodium 1 Tablet 2 TABLET PO (06:16)
[2019-05-01] MEDS: traMADol 50 MG Tablet 100 MG PO (06:17)
--- NOTE | 2019-05-01 09:05 | NURSING ---
Wound VAC intact to the left medial and lateral ankle. some serosanguineous drainage noted in the canister. Pt is s/p debridement of nonviable tissue of the left medial and lateral ankle with application of synthetic skin substitute to both wounds with application of the wound VAC. The wound VAC is currently at 100mmHg low continuous suction. will have to discuss with Dr Mc Hairston to verify what pressure he would like. Pt denies much discomfort at this time. did initiate the home VAC authorization. unsure the plan for discharge at this time.
[2019-05-01] MEDS: Polyethylene Glycol 3350 17 GM PACKET PO (09:31)
[2019-05-01] MEDS: Aspirin 81 MG TAB.CHEW PO ×2 (09:31→16:35)
[2019-05-01 09:36] VITALS: BP 122/73; PULSE 71; RESP 18; TEMP 37.3; O2SAT 97
--- NOTE | 2019-05-01 13:25 | PN.ID_ITS ---
Patient Problems: Active and Suspected Problems Osteomyelitis (Acute) Full-thickness skin dehiscence (Acute) Infection of skin and subcutaneous tissue (Acute) Subjective: Still nausea, not feeling well. No fever. - Physical Exam Vitals/I&O's: Vital Signs Temp Pulse Resp BP Pulse Ox 99.2 F H 71 18 122/73 H 97 05/01/19 09:36 05/01/19 09:36 05/01/19 09:36 05/01/19 09:36 05/01/19 09:36 Oxygen Delivery Method Room Air Weight: 67.3 kg Body Mass Index (BMI) 23.2 Intake and Output for Last 24 Hours 04/29/19 04/30/19 05/01/19 23:59 23:59 23:59 Intake Total 2879.0 / 2879.0 3431.17 / 4131.17 2147.5 / 2147.5 Output Total 1350 / 1350 400 / 800 900 / 900 Balance 1529.0 / 1529.0 3031.17 / 3331.17 1247.5 / 1247.5 General: Alert, Cooperative, No apparent distress Lungs: Clear to auscultation, Normal air movement Cardiovascular: Regular rate, Regular Rhythm Abdomen: Soft, Non Tender, Non-Distended Skin: Ulcer/ Wound - LLE wrapped s/p OR Microbiology Past 72 Hours 04/30/19 17:30 Tissue - Aerobic & Anaerobic Swabs Gram Stain - Final 04/30/19 17:30 Tissue - Aerobic & Anaerobic Swabs Wound Culture - Preliminary No growth-Final to follow 04/30/19 17:30 Tissue - Aerobic & Anaerobic Swabs Gram Stain - Final 04/30/19 17:30 Tissue - Aerobic & Anaerobic Swabs Wound Culture - Prelim inary Gram negative peyman 04/27/19 09:20 Biopsy - Tissue Gram Stain - Final 04/27/19 09:20 Biopsy - Tissue Wound Culture - Final Enterobacter cloacae complex 04/27/19 09:20 Biopsy - Tissue Anaerobic Culture - Final No anaerobic bacteria isolated. 04/27/19 09:20 Biopsy - Tissue Gram Stain - Final 04/27/19 09:20 Biopsy - Tissue Wound Culture - Final Enterobacter cloacae complex 04/27/19 09:20 Biopsy - Tissue Anaerobic Culture - Final No anaerobic bacteria isolated. Current Medications Acetaminophen (Tylenol) 1,000 mg PO Q8 [facility] Last Admin: 05/01/19 06:03 Dose: 1,000 mg Documented by: Aspirin (Aspirin, Baby) 81 mg PO BIDCM [facility] Last Admin: 05/01/19 09:31 Dose: 81 mg Documented by: Hydromorphone HCl (Dilaudid Inj) 1 mg IV Q2H PRN PRN PRN Reason: Pain Score 6-10/10 Last Admin: 04/30/19 22:16 Dose: 1 mg Documented by: Lactated Ringer's () 1,000 mls @ 90 mls/hr IV .Q11H7M [facility] Last Admin: 05/01/19 04:41 Dose: 90 mls/hr Documented by: Sodium Chloride () 250 mls @ 15 mls/hr IV .[id number] PRN PRN Reason: Saline Flush Last Infusion: 04/30/19 06:05 Dose: 0 mls/hr Documented by: Cefepime HCl 2 gm/ Sodium (Chloride) 100 mls @ 200 mls/hr IV Q8 [facility] Metoclopramide HCl (Reglan) 5 mg IV Q6 PRN PRN Reason: NAUSEA/VOMITING Last Admin: 04/30/19 11:39 Dose: 5 mg Documented by: Nutritional Formula (Lactose Free) (Ensure Enlive) 120 ml PO 4X/DAY [facility] Last Admin: 05/01/19 11:34 Dose: Not Given Documented by: Ondansetron HCl (Zofran) 4 mg IV Q8H PRN PRN PRN Reason: Nausea Last Admin: 04/30/19 05:54 Dose: 4 mg Documented by: Polyethylene Glycol (Miralax) 17 gm PO DAILY [facility] Last Admin: 05/01/19 09:31 Dose: 17 gm Documented by: Scopolamine HBr (Transderm-Scop) 1 patch TD Q3D [facility] Last Admin: 04/30/19 09:24 Dose: 1 patch Documented by: Senna/Docusate Sodium (Senokot-S, Dawn-Colace) 2 tablet PO BID PRN PRN Reason: Constipation Last Admin: 05/01/19 06:16 Dose: 2 tablet Documented by: Sodium Chloride () 10 - 40 ml IV UD PRN PRN Reason: SALINE FLUSH Last Admin: 04/30/19 05:54 Dose: 10 ml Documented by: Tramadol HCl (Ultram) 100 mg PO Q6H PRN PRN PRN Reason: Pain Score 6-03/21 Last Admin: 05/01/19 06:17 Dose: 100 mg Documented by: Medical Necessity - Tobacco Use Smoking Status: Never smoker Tobacco Use: Non-smoker Route of nutrition/ use of supplements: [] Nutritional Intake: [] IV Site: [] Sampson Catheter: [] - Assessment/Plan Antibiotics: [] Assessment/Plan: [] LLE osteo with hardware involvement s/p ORIF 04/11/[address] Hairston. Now s/p I&D by Dr. Khan 04/27. Two surg cxs with enterobacter. OR again 04/[address] Hairston. She reports tolerating bactrim and cipro in the past with no issue. If no other organisms show up on cxs, tentative plan will be for po bactrim DS at discharge which should have good bone/joint penetration and would avoid picc. If infected hardware remains in place, likely will need penitentiary suppressive abx. Due to nausea, will change zosyn to cefepime. Will follow
--- NOTE | 2019-05-01 13:27 | PN_ITS ---
Patient Problems: Active and Suspected Problems Osteomyelitis (Acute) Full-thickness skin dehiscence (Acute) Infection of skin and subcutaneous tissue (Acute) Subjective: CC: Medical management, left ankle joint and soft tissue infection. patient complain of nausea, abdominal dyspeptic symptoms. Vitals/I&O's: Vital Signs Temp Pulse Resp BP Pulse Ox 99.2 F H 71 18 122/73 H 97 05/01/19 09:36 05/01/19 09:36 05/01/19 09:36 05/01/19 09:36 05/01/19 09:36 Oxygen Delivery Method Room Air Weight: 148 lb 5.938 oz Body Mass Index (BMI) 23.2 Intake and Output for Last 24 Hours 04/29/19 04/30/19 05/01/19 23:59 23:59 23:59 Intake Total 2879.0 / 2879.0 3431.17 / 4131.17 2147.5 / 2147.5 Output Total 1350 / 1350 400 / 800 900 / 900 Balance 1529.0 / 1529.0 3031.17 / 3331.17 1247.5 / 1247.5 General: Alert, Oriented x3, Cooperative HEENT: Atraumatic, PERRLA, EOMI, Normocephalic Neck: Supple, No JVD, Negative Carotid Bruits Lungs: Clear to auscultation, Normal air movement, No rhonchi, No wheeze, No rales Cardiovascular: Regular rate, Regular Rhythm, Normal S1, Normal S2, No murmurs Abdomen: Bowel Sounds Present, Soft, Non Tender, Non-Distended Extremities: No edema, Capillary Refill Less than 3 Seconds Skin: No rashes, No breakdown Musculoskeletal: No Tenderness to Palpation of Joints or Extremities Neurological: Cranial nerves II-XII grossly intact, Deep Tendon Reflexes 2+/4 and Symmetrical, Neuro grossly intact Psych/Mental Status: Normal Affect, Appropriate Microbiology Past 72 Hours 04/30/19 17:30 Tissue - Aerobic & Anaerobic Swabs Gram Stain - Final 04/30/19 17:30 Tissue - Aerobic & Anaerobic Swabs Wound Culture - Preliminary No growth-Final to follow 04/30/19 17:30 Tissue - Aerobic & Anaerobic Swabs Gram Stain - Final 04/30/19 17:30 Tissue - Aerobic & Anaerobic Swabs Wound Culture - Preliminary Gram negative peyman 04/27/19 09:20 Biopsy - Tissue Gram Stain - Final 04/27/19 09:20 Biopsy - Tissue Wound Culture - Final Enterobacter cloacae complex 04/27/19 09:20 Biopsy - Tissue Anaerobic Culture - Final No anaerobic bacteria isolated. 04/27/19 09:20 Biopsy - Tissue Gram Stain - Final 04/27/19 09:20 Biopsy - Tissue Wound Culture - Final Enterobacter cloacae complex 04/27/19 09:20 Biopsy - Tissue Anaerobic Culture - Final No anaerobic bacteria isolated. Current Medications Acetaminophen (Tylenol) 1,000 mg PO Q8 [facility] Last Admin: 05/01/19 06:03 Dose: 1,000 mg Documented by: Aspirin (Aspirin, Baby) 81 mg PO BIDCM [facility] Last Admin: 05/01/19 09:31 Dose: 81 mg Documented by: Hydromorphone HCl (Dilaudid Inj) 1 mg IV Q2H PRN PRN PRN Reason: Pain Score 6-10/10 Last Admin: 04/30/19 22:16 Dose: 1 mg Documented by: Lactated Ringer's () 1,000 mls @ 90 mls/hr IV .[id number] [facility] Last Admin: 05/01/19 04:41 Dose: 90 mls/hr Documented by: Sodium Chloride () 250 mls @ 15 mls/hr IV .[id number] PRN PRN Reason: Saline Flush Last Infusion: 04/30/19 06:05 Dose: 0 mls/hr Documented by: Cefepime HCl 2 gm/ Sodium (Chloride) 100 mls @ 200 mls/hr IV Q8 [facility] Metoclopramide HCl (Reglan) 5 mg IV Q6 PRN PRN Reason: NAUSEA/VOMITING Last Admin: 04/30/19 11:39 Dose: 5 mg Documented by: Nutritional Formula (Lactose Free) (Ensure Enlive) 120 ml PO 4X/DAY [facility] Last Admin: 05/01/19 11:34 Dose: Not Given Documented by: Ondansetron HCl (Zofran) 4 mg IV Q8H PRN PRN PRN Reason: Nausea Last Admin: 04/30/19 05:54 Dose: 4 mg Documented by: Polyethylene Glycol (Miralax) 17 gm PO DAILY [facility] Last Admin: 05/01/19 09:31 Dose: 17 gm Documented by: Scopolamine HBr (Transderm-Scop) 1 patch TD Q3D [facility] Last Admin: 04/30/19 09:24 Dose: 1 patch Documented by: Senna/Docusate Sodium (Senokot-S, Dawn-Colace) 2 tablet PO BID PRN PRN Reason: Constipation Last Admin: 05/01/19 06:16 Dose: 2 tablet Documented by: Sodium Chloride () 10 - 40 ml IV UD PRN PRN Reason: SALINE FLUSH Last Admin: 04/30/19 05:54 Dose: 10 ml Documented by: Tramadol HCl (Ultram) 100 mg PO Q6H PRN PRN PRN Reason: Pain Score 6-10/10 Last Admin: 05/01/19 06:17 Dose: 100 mg Documented by: STROKE Vital Signs/Narrative: Vital Signs Temp Pulse Resp BP Pulse Ox 05/01/19 09:36 99.2 F H 71 18 122/73 H 97 Medical Necessity - Tobacco Use Smoking Status: Never smoker Tobacco Use: Non-smoker Assessment/Plan All Active Problems Osteomyelitis (Acute) Full-thickness skin dehiscence (Acute) Infection of skin and subcutaneous tissue (Acute) Fracture of tibial shaft, left, closed (Acute) Left fibular fracture (Acute) This is a 33 years old female patient was admitted directly from her orthopedic surgeon's office for increasing drainage from the incision area on the left leg after she underwent open reduction and internal fixation for comminuted, displaced left tibial distal fracture and left lateral mass fracture on April 11, 2019. She had left leg medial and lateral wound infection status post irrigation and debridement on April 27, [address] Khan. #1 left medial and lateral leg postoperative wound infection: Status post i rrigation debridement of the left leg wound, subcutaneous tissue and fascia, postoperative day 2. Initially, patient was on IV Zosyn and vancomycin then vancomycin discontinued. CRP less than 2.9. No fever or chills. Hemodynamically stable. Two Tissue biopsy culture shows Enterobacter cloaca. Enterobacter is sensitive to Zosyn, Cipro and Bactrim. 05/01: Patient had or wound debridement on 04/30. She has infection of the medial and lateral ankle wounds surgical dehiscence. Had debridement of nonviable tissue of left medial lateral ankle wounds down to level of tendon, muscle and fascia. Tissue biopsy culture is growing Enterobacter. On antibiotic She still has nausea, dyspeptic symptoms. On Reglan 5 mg half an hour before meal. On Pepcid 20 mg p.o. twice daily and Mylanta as needed #2 recent traumatic comminuted/displaced distal left tibia and left lateral manual fractures: Status post open reduction and internal fixation on April 11, 2019. Complicated by postoperative wound infection. As mentioned above #3 DVT prophylaxis: On Lovenox 40 mg subcu daily Microbiology Past 72 Hours 04/30/19 17:30 Tissue - Aerobic & Anaerobic Swabs Gram Stain - Final 04/30/19 17:30 Tissue - Aerobic & Anaerobic Swabs Wound Culture - Preliminary No growth-Final to follow 04/30/19 17:30 Tissue - Aerobic & Anaerobic Swabs Gram Stain - Final 04/30/19 17:30 Tissue - Aerobic & Anaerobic Swabs Wound Culture - Preliminary Gram negative peyman 04/27/19 09:20 Biopsy - Tissue Gram Stain - Final 04/27/19 09:20 Biopsy - Tissue Wound Culture - Final Enterobacter cloacae complex 04/27/19 09:20 Biopsy - Tissue Anaerobic Culture - Final No anaerobic bacteria isolated. 04/27/19 09:20 Biopsy - Tissue Gram Stain - Final 04/27/19 09:20 Biopsy - Tissue Wound Culture - Final Enterobacter cloacae complex 04/27/19 09:20 Biopsy - Tissue Anaerobic Culture - Final No anaerobic bacteria isolated. Active Medications Acetaminophen (Tylenol) 1,000 mg PO Q8 [facility] Last Admin: 05/01/19 06:03 Dose: 1,000 mg Documented by: Aspirin (Aspirin, Baby) 81 mg PO BIDCM [facility] Last Admin: 05/01/19 09:31 Dose: 81 mg Documented by: Hydromorphone HCl (Dilaudid Inj) 1 mg IV Q2H PRN PRN PRN Reason: Pain Score 6-10/10 Last Admin: 04/30/19 22:16 Dose: 1 mg Documented by: Lactated Ringer's () 1,000 mls @ 90 mls/hr IV .[id number] [facility] Last Admin: 05/01/19 04:41 Dose: 90 mls/hr Documented by: Sodium Chloride () 250 mls @ 15 mls/hr IV .[id number] PRN PRN Reason: Saline Flush Last Infusion: 04/30/19 06:05 Dose: 0 mls/hr Documented by: Cefepime HCl 2 gm/ Sodium (Chloride) 100 mls @ 200 mls/hr IV Q8 [facility] Metoclopramide HCl (Reglan) 5 mg IV Q6 PRN PRN Reason: NAUSEA/VOMITING Last Admin: 04/30/19 11:39 Dose: 5 mg Documented by: Nutritional Formula (Lactose Free) (Ensure Enlive) 120 ml PO 4X/DAY [facility] Last Admin: 05/01/19 11:34 Dose: Not Given Documented by: Ondansetron HCl (Zofran) 4 mg IV Q8H PRN PRN PRN Reason: Nausea Last Admin: 04/30/19 05:54 Dose: 4 mg Documented by: Polyethylene Glycol (Miralax) 17 gm PO DAILY [facility] Last Admin: 05/01/19 09:31 Dose: 17 gm Documented by: Scopolamine HBr (Transderm-Scop) 1 patch TD Q3D [facility] Last Admin: 04/30/19 09:24 Dose: 1 patch Documented by: Senna/Docusate Sodium (Senokot-S, Dawn-Colace) 2 tablet PO BID PRN PRN Reason: Constipation Last Admin: 05/01/19 06:16 Dose: 2 tablet Documented by: Sodium Chloride () 10 - 40 ml IV UD PRN PRN Reason: SALINE FLUSH Last Admin: 04/30/19 05:54 Dose: 10 ml Documented by: Tramadol HCl (Ultram) 100 mg PO Q6H PRN PRN PRN Reason: Pain Score 6-10/10 Last Admin: 05/01/19 06:17 Dose: 100 mg Documented by: Code Visit Inpatient E&M: [id number] Subs Hosp L2
[2019-05-01] MEDS: 0.9% Saline Lock 10 ML Syringe IV ×2 (13:45→22:07)
[2019-05-01] MEDS: Ondansetron 4 MG/2 ML Vial IV ×2 (13:45→22:07)
--- NOTE | 2019-05-01 13:54 | PN.ORTHO_ITS ---
Patient Problems: Active and Suspected Problems Osteomyelitis (Acute) Full-thickness skin dehiscence (Acute) Infection of skin and subcutaneous tissue (Acute) Subjective: Patient seen at bedside resting comfortably status post 1 day of debridement with washout, application of grafts, application of wound VAC to left ankle wounds. Patient states that she is still nauseous and constipated. Patient states that she has not had a bowel movement since April 26. Patient states that the pain of her left foot and ankle is stable and has not worsened. Patient states that she feels much better after the surgery then from the previous surgical intervention. Patient denies fever, chills, vomiting, shortness of breath, chest pain. Patient denies left calf pain. Objective: Left lower extremity exam: Dressing is clean, dry, intact to the left foot with no evidence of strikethrough. Wound VAC output is approximately 50 cc of serosanguineous drainage. Neurovascular status is intact to the digits of the left foot. Capillary fill time is less than 3 seconds to digits. Patient is able to dorsiflex and plantarflex the digits at well with no pain. Patient denies left calf pain. Calf is soft and supple. Negative Ly sign. - Physical Exam Vitals/I&O's: Vital Signs Temp Pulse Resp BP Pulse Ox 99.2 F H 71 18 122/73 H 97 05/01/19 09:36 05/01/19 09:36 05/01/19 09:36 05/01/19 09:36 05/01/19 09:36 Oxygen Delivery Method Room Air Weight: 67.3 kg Body Mass Index (BMI) 23.2 Intake and Output for Last 24 Hours 04/29/19 04/30/19 05/01/19 23:59 23:59 23:59 Intake Total 2879.0 / 2879.0 3431.17 / 4131.17 2147.5 / 2147.5 Output Total 1350 / 1350 400 / 800 900 / 900 Balance 1529.0 / 1529.0 3031.17 / 3331.17 1247.5 / 1247.5 General: Alert, Oriented x3 Lungs: Clear to auscultation Cardiovascular: Regular rate, Regular Rhythm, Normal S1, Normal S2 Microbiology Past 72 Hours 04/30/19 17:30 Tissue - Aerobic & Anaerobic Swabs Gram Stain - Final 04/30/19 17:30 Tissue - Aerobic & Anaerobic Swabs Wound Culture - Preliminary No growth-Final to follow 04/30/19 17:30 Tissue - Aerobic & Anaerobic Swabs Gram Stain - Final 04/30/19 17:30 Tissue - Aerobic & Anaerobic Swabs Wound Culture - Preliminary Gram negative peyman 04/27/19 09:20 Biopsy - Tissue Gram Stain - Final 04/27/19 09:20 Biopsy - Tissue Wound Culture - Final Enterobacter cloacae complex 04/27/19 09:20 Biopsy - Tissue Anaerobic Culture - Final No anaerobic bacteria isolated. 04/27/19 09:20 Biopsy - Tissue Gram Stain - Final 04/27/19 09:20 Biopsy - Tissue Wound Culture - Final Enterobacter cloacae complex 04/27/19 09:20 Biopsy - Tissue Anaerobic Culture - Final No anaerobic bacteria isolated. Current Medications Acetaminophen (Tylenol) 1,000 mg PO Q8 [facility] Last Admin: 05/01/19 06:03 Dose: 1,000 mg Documented by: Al Hydroxide/Mg Hydroxide (Mylanta Ii) 15 ml PO Q4H PRN PRN PRN Reason: heart burn/dyspepdia [facility] Admin: 05/01/19 09:31 Dose: 81 mg Documented by: Enoxaparin Sodium (Lovenox) 40 mg SC DAILY [facility] Famotidine (Pepcid) 20 mg PO BID [facility] Hydromorphone HCl (Dilaudid Inj) 1 mg IV Q2H PRN PRN PRN Reason: Pain Score 6-10/10 Last Admin: 04/30/19 22:16 Dose: 1 mg Documented by: Sodium Chloride () 250 mls @ 15 mls/hr IV .[id number] PRN PRN Reason: Saline Flush Last Infusion: 04/30/19 06:05 Dose: 0 mls/hr Documented by: Cefepime HCl 2 gm/ Sodium (Chloride) 100 mls @ 200 mls/hr IV Q8 [facility] Metoclopramide HCl (Metoclopramide Hcl) 5 mg PO TIDAC [facility] Nutritional Formula (Lactose Free) (Ensure Enlive) 120 ml PO 4X/DAY [facility] Last Admin: 05/01/19 11:34 Dose: Not Given Documented by: Ondansetron HCl (Zofran) 4 mg IV Q8H PRN PRN PRN Reason: Nausea Last Admin: 05/01/19 13:45 Dose: 4 mg Documented by: Polyethylene Glycol (Miralax) 17 gm PO DAILY [facility] Last Admin: 05/01/19 09:31 Dose: 17 gm Documented by: Scopolamine HBr (Transderm-Scop) 1 patch TD Q3D [facility] Last Admin: 04/30/19 09:24 Dose: 1 patch Documented by: Senna/Docusate Sodium (Senokot-S, Dawn-Colace) 2 tablet PO BID PRN PRN Reason: Constipation Last Admin: 05/01/19 06:16 Dose: 2 tablet Documented by: Sodium Chloride () 10 - 40 ml IV UD PRN PRN Reason: SALINE FLUSH Last Admin: 05/01/19 13:45 Dose: 10 ml Documented by: Tramadol HCl (Ultram) 100 mg PO Q6H PRN PRN PRN Reason: Pain Score 6-10/10 Last Admin: 05/01/19 06:17 Dose: 100 mg Documented by: Medical Necessity - Tobacco Use Smoking Status: Never smoker Tobacco Use: Non-smoker Assessment/Plan All Active Problems Osteomyelitis (Acute) Full-thickness skin dehiscence (Acute) Infection of skin and subcutaneous tissue (Acute) Fracture of tibial shaft, left, closed (Acute) Left fibular fracture (Acute) Patient chart reviewed and patient evaluated. Full discussion had with the patient about her current clinical condition and the surgical intervention that was performed yesterday. Surgical intervention include debridement, washout, application of synthetic skin substitute, application of wound VAC. Furthermore wound cultures and bone biopsy were taken in the operating room. I discussed with the patient at this time all of her options at this point. This includes continued care with the graft and the wound VAC. This also includes a referral for possible free flap application. Furthermore this also includes removal of the internal hardware with application of external fixator. At this time patient is agreeable to continue current treatment at this time. At this point discussed with the patient that she will follow-up with both Dr. Clifton and myself for further intervention. We will keep the wound VAC clean dry and intact until next week when she is can see Dr. Clifton of the wound care center. Appreciate input and help from Dr. Clifton. We will order a home wound VAC for the patient. Would like to await operative cultures for further antibiotic management. Antibiotic management deferred to Dr. Dave. Appreciate input and help from Dr. Dave. I appreciate the continued support and medical management by the hospitalist staff. At this point patient is to remain nonweightbearing to the left foot and leg. Will await culture and bone biopsy results for further management. Enema ordered to aid in bowel movement. We will continue to follow patient closely and update accordingly.
--- NOTE | 2019-05-01 15:02 | CON.PCM_ITS ---
Reason for Consult Date of Consultation: 05/02/19 Reason for Consultation: Open surgical left lower leg medial and lateral infected wounds with exposed hardware from tibial and fibular fracture and ORIF procedure. REFERRING PHYSICIAN: Dr. Vel Hairston. ASPHALT LAYER: Dr. Clifton. History of Present Illness: The patient is a 33 year old F who sustained a left tibial and fibular fracture near the [facility] while ice skating on 04/11/19. She was taken to surgery that day by Dr. Hairston who performed an ORIF. Despite oral antibiotics, she developed an infection in the incision areas (medial and lateral) with increasing redness, pain, swelling and drainage. She denied fever. Taken back to surgery on 04/27/[address] Khan who performed irrigation debridement left leg wound skin subcutaneous tissue fat fascia and bone lateral wound 111 mm x 30 mm and irrigation debridement left leg wound skin subcutaneous tissue fat fascia and bone medial wound 117 mm x 46 mm and placement of wound VAC. She was started on Zosyn and Vancomycin. She was taken back to surgery yesterday on 04/30/[address] Hairston who performed debridement of nonviable tissue of the left medial and lateral ankle wounds down to including level of tendon, muscle, fascia and washout of left medial and lateral ankle wounds and application of synthetic skin substitute to left medial and lateral ankle wounds and application of wound VAC to wound of left medial and lateral ankle wounds. I initially saw the brandy ent in consultation in the OR on 04/30/19 where I was able to examine the wounds more closely under anesthesia. I was asked to evaluate this patient for continued wound care and for surgical options for treatment for wound closure. Past Medical History Allergies No Known Allergies Allergy (Verified 04/11/19 09:54) Current Medications Acetaminophen (Tylenol) 1,000 mg PO Q8 PENDING SALE TO [facility] Last Admin: 05/01/19 06:03 Dose: 1,000 mg Documented by: Al Hydroxide/Mg Hydroxide (Mylanta Ii) 15 ml PO Q4H PRN PRN PRN Reason: heart burn/dyspepdia Aspirin (Aspirin, Baby) 81 mg PO BIDCM [facility]END[facility] SALE TO [facility] Last Admin: 05/01/19 09:31 Dose: 81 mg Documented by: Enoxaparin Sodium (Lovenox) 40 mg SC DAILY [facility]END[facility] SALE TO [facility] Famotidine (Pepcid) 20 mg PO BID PENDING SALE TO [facility] Hydromorphone HCl (Dilaudid Inj) 1 mg IV Q2H PRN PRN PRN Reason: Pain Score 6-10/10 Last Admin: 04/30/19 22:16 Dose: 1 mg Documented by: Sodium Chloride () 250 mls @ 15 mls/hr IV .[id number] PRN PRN Reason: Saline Flush Last Infusion: 04/30/19 06:05 Dose: 0 mls/hr Documented by: Cefepime HCl 2 gm/ Sodium (Chloride) 100 mls @ 200 mls/hr IV Q8 [facility] Metoclopramide HCl (Metoclopramide Hcl) 5 mg PO TIDAC PENDING SALE TO [facility] Nutritional Formula (Lactose Free) (Ensure Enlive) 120 ml PO 4X/DAY PENDING SALE TO [facility] Last Admin: 05/01/19 11:34 Dose: Not Given Documented by: Ondansetron HCl (Zofran) 4 mg IV Q8H PRN PRN PRN Reason: Nausea Last Admin: 05/01/19 13:45 Dose: 4 mg Documented by: Polyethylene Glycol (Miralax) 17 gm PO DAILY [facility] Last Admin: 05/01/19 09:31 Dose: 17 gm Documented by: Scopolamine HBr (Transderm-Scop) 1 patch TD Q3D PENDING SALE TO [facility] Last Admin: 04/30/19 09:24 Dose: 1 patch Documented by: Senna/Docusate Sodium (Senokot-S, Dawn-Colace) 2 tablet PO BID PRN PRN Reason: Constipation Last Admin: 05/01/19 06:16 Dose: 2 tablet Documented by: Sodium Chloride () 10 - 40 ml IV UD PRN PRN Reason: SALINE FLUSH Last Admin: 05/01/19 13:45 Dose: 10 ml Documented by: Tramadol HCl (Ultram) 100 mg PO Q6H PRN PRN PRN Reason: Pain Score 6-10/10 Last Admin: 05/01/19 06:17 Dose: 100 mg Documented by: Home Medications: Ambulatory Orders Medication Instructions Recorded Lorazepam [Ativan] 0.5 mg PO Q8H PRN PRN 03/31/19 Hydrocodone/Acetaminophen [[place] 1 ea PO Q4H PRN PRN 04/05/19 5-325 Tablet] Smz/Tmp Ds [Bactrim Ds] 1 tab PO BID 40 Days #80 tab 05/02/19 Ondansetron [Zofran Odt] 4 mg PO Q8H PRN PRN #30 tab 05/03/19 Surgical History: - - 04/11/19 - ORIF left tibial and fibular fracture with plate and screw fixation. 04/27/19 - 1. Irrigation debridement left leg wound skin subcutaneous tissue fat fascia and bone lateral wound 111 mm x 30 mm. 2. Irrigation debridement left leg wound skin subcutaneous tissue fat fascia and bone medial wound 117 mm x 46 mm. 3. Placement of wound VAC. 04/30/19 - cedure Performed:: 1. Debridement of nonviable tissue of the left medial and lateral ankle wounds down to including level of tendon, muscle, fascia. 2. washout of left medial and lateral ankle wounds. 3. application of synthetic skin substitute to left medial and lateral ankle wounds. #4 application of wound VAC to wound of left medial and lateral ankle wounds. 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 History: endometrial cancer Lives: Spouse/ Significant Other Smoking Status: Never smoker Tobacco Use: Non-smoker Alcohol: Occasional Drugs: None - *Family History Maternal History Items: No pertinent history Review of Systems Constitutional: Denies: Chills, Fever, Weakness Eyes: Denies: Pain HEENT: Denies: Nasal Congestion, Sore Throat Cardiovascular: Denies: Chest Pain Respiratory: Denies: Cough, Shortness of Breath Gastrointestinal: Denies: Constipation, Diarrhea, Nausea, Vomiting Genitourinary: Denies: Frequency, Hematuria Musculoskeletal: Reports: Foot Pain, Leg Pain - left leg pain after ORIF of left tib-fib fracture and subsequent infection with exposed hardware.. Denies: Arm Pain, Back Pain, Hand Pain, Neck Pain Skin: Reports: Wounds - open surgical wounds left lower leg (medial and lateral) with exposed hardware after ORIF procedure and subsequent infection. Neurological: Denies: Headaches Psychiatric: Denies: Anxiety, Depression Endocrine: Denies: Heat/ Cold Intolerance, Polydipsia, Polyuria Hematologic/ Lymphatic: Denies: Anemia, Hx of blood clot - Physical Exam Vitals/I&O's: General: Alert, Oriented x3, Cooperative, No apparent distress. HEENT: PERRLA, EOMI. Neck: Supple, nontender. No cervical adenopathy. Lungs: Clear to auscultation. Cardiovascular: Regular rate, Regular Rhythm. Abdomen: Soft, Non-Distended. Extremities: The left lower extremity at the ankle level wounds were initially examined in the OR yesterday 04/30/19. On the left lower extremity at the ankle level are two nonhealing surgical wounds from recent ORIF of complex ankle fracture with subsequent infection and exposed hardware. Wounds are clean with good vascular bleeding tissue surrounding the exposed plates and screws. On the lateral wound there is also exposed tendon. The medial wound measures 11 x 4 cm. The lateral wound measures 10 x 3.5 cm. Dorsalis pedis pulses are palpable. No inguinal adenopathy. Neurological: Cranial nerves II-XII grossly intact Vital Signs Temp Pulse Resp BP Pulse Ox 99.2 F H 71 18 122/73 H 97 05/01/19 09:36 05/01/19 09:36 05/01/19 09:36 05/01/19 09:36 05/01/19 09:36 Oxygen Delivery Method Room Air Weight: 148 lb 5.938 oz Body Mass Index (BMI) 23.2 Intake and Output for Last 24 Hours 04/29/19 04/30/19 05/01/19 23:59 23:59 23:59 Intake Total 2879.0 / 2879.0 3431.17 / 4131.17 2147.5 / 2147.5 Output Total 1350 / 1350 400 / 800 900 / 900 Balance 1529.0 / 1529.0 3031.17 / 3331.17 1247.5 / 1247.5 Microbiology Past 72 Hours 04/30/19 17:30 Tissue - Aerobic & Anaerobic Swabs Gram Stain - Final 04/30/19 17:30 Tissue - Aerobic & Anaerobic Swabs Wound Culture - Preliminary No growth-Final to follow 04/30/19 17:30 Tissue - Aerobic & Anaerobic Swabs Gram Stain - Final 04/30/19 17:30 Tissue - Aerobic & Anaerobic Swabs Wound Culture - Preliminary Gram negative peyman 04/27/19 09:20 Biopsy - Tissue Gram Stain - Final 04/27/19 09:20 Biopsy - Tissue Wound Culture - Final Enterobacter cloacae complex 04/27/19 09:20 Biopsy - Tissue Anaerobic Culture - Final No anaerobic bacteria isolated. 04/27/19 09:20 Biopsy - Tissue Gram Stain - Final 04/27/19 09:20 Biopsy - Tissue Wound Culture - Final Enterobacter cloacae complex 04/27/19 09:20 Biopsy - Tissue Anaerobic Culture - Final No anaerobic bacteria isolated. Current Medications Acetaminophen (Tylenol) 1,000 mg PO Q8 PENDING SALE TO [facility] Last Admin: 05/01/19 06:03 Dose: 1,000 mg Documented by: Al Hydroxide/Mg Hydroxide (Mylanta Ii) 15 ml PO Q4H PRN PRN PRN Reason: heart burn/dyspepdia Aspirin (Aspirin, Baby) 81 mg PO BIDCM PENDING SALE TO [facility] Last Admin: 05/01/19 09:31 Dose: 81 mg Documented by: Enoxaparin Sodium (Lovenox) 40 mg SC DAILY PENDING SALE TO [facility] Famotidine (Pepcid) 20 mg PO BID PENDING SALE TO [facility] Hydromorphone HCl (Dilaudid Inj) 1 mg IV Q2H PRN PRN PRN Reason: Pain Score 6-10/10 Last Admin: 04/30/19 22:16 Dose: 1 mg Documented by: Sodium Chloride () 250 mls @ 15 mls/hr IV .[id number] PRN PRN Reason: Saline Flush Last Infusion: 04/30/19 06:05 Dose: 0 mls/hr Documented by: Cefepime HCl 2 gm/ Sodium (Chloride) 100 mls @ 200 mls/hr IV Q8 PENDING SALE TO [facility] Metoclopramide HCl (Metoclopramide Hcl) 5 mg PO TIDAC PENDING SALE TO [facility] Nutritional Formula (Lactose Free) (Ensure Enlive) 120 ml PO 4X/DAY PENDING SALE TO [facility] Last Admin: 05/01/19 11:34 Dose: Not Given Documented by: Ondansetron HCl (Zofran) 4 mg IV Q8H PRN PRN PRN Reason: Nausea Last Admin: 05/01/19 13:45 Dose: 4 mg Documented by: Polyethylene Glycol (Miralax) 17 gm PO DAILY PENDING SALE TO [facility] Last Admin: 05/01/19 09:31 Dose: 17 gm Documented by: Scopolamine HBr (Transderm-Scop) 1 patch TD Q3D PENDING SALE TO [facility] Last Admin: 04/30/19 09:24 Dose: 1 patch Documented by: Senna/Docusate Sodium (Senokot-S, Dawn-Colace) 2 tablet PO BID PRN PRN Reason: Constipation Last Admin: 05/01/19 06:16 Dose: 2 tablet Documented by: Sodium Chloride () 10 - 40 ml IV UD PRN PRN Reason: SALINE FLUSH Last Admin: 05/01/19 13:45 Dose: 10 ml Documented by: Tramadol HCl (Ultram) 100 mg PO Q6H PRN PRN PRN Reason: Pain Score 6-10/10 Last Admin: 05/01/19 06:17 Dose: 100 mg Documented by: Assessment/Plan All Active Problems Status post open reduction and internal fixation (ORIF) of fracture (Acute) Open wound of left lower leg with complication (Acute) Exposed orthopaedic hardware (Acute) Osteomyelitis (Acute) Full-thickness skin dehiscence (Acute) Infection of skin and subcutaneous tissue (Acute) Fracture of tibial shaft, left, closed (Acute) Left fibular fracture (Acute) 1. Open infected wounds (medial and lateral) left lower leg near the ankle. 2. Exposed orthopedic hardware left lower leg after ORIF procedure. 3. Osteomyelitis. 4. Left tibia fracture, s/p ORIF. 5. Left fibular fracture, s/p ORIF. Continue IV antibiotics with Cefepime for wound culture showing Enterobacter cloacae from previous surgery on 04/27/19. I inspected the left lower leg wounds (medial and lateral) in the OR yesterday. Good bleeding tissue was seen. Exposed hardware is seen. Soft tissue cultures from yesterday's surgery are pending. Pathology is pending. This infected open wound with exposed hardware is 3 weeks old so it is in the subacute phase. At this point, the ideal thing is to keep the hardware in and allow the fracture to heal. If the fracture does not heal properly, then the hardware would need to be removed and an external fixator placed. If adequate fracture healing occurs, then the hardware can be removed at that time. Before wound closure, bone biopsies would need to be done to evaluate for osteomyeliti s. If osteomyelitis is present than additional bone would need to be removed before soft tissue reconstruction. With osteomyelitis, her best option would be a microvascular free tissue transfer flap. If adequate fracture healing occurs and the hardware is removed and no osteomyelitis is present, then can continue the VAC and hopefully obtain granulation tissue in preparation for skin grafting. If skin grafting not successful, then can proceed with a microvascular free tissue transfer flap. So at the time of surgery yesterday after adequate irrigation and debridement, Amnio-Fill placental connective tissue powder was placed in the wound followed by Integra bilayer graft. It was secured with a VAC. This is designed to promote granulation tissue so a skin graft can be applied eventually when the hardware is removed. With the current infection, I would like to adequately treat the infection at the same time as allowing the fracture to heal with the hardware in place before thinking about definitive wound closure either with aggressive wound care followed by skin grafting or with a complex microvascular free tissue transfer flap. Before wound closure can be done, the hardware would need to be removed. So in the meantime, will see how much healing can occur with aggressive wound care with the VAC and with the advanced wound healing products. She will keep her left leg elevated. [facility]. Code Visit Inpatient E&M: 35240 Init Hosp L2 - ICD-10 - S81.802A, L08.9, T84.498A, M86.9, S82.202A, S82.402A, Z98.890
[2019-05-01] MEDS: Enoxaparin 40 MG/0.4 ML Syringe SC (15:12)
[2019-05-01 15:29] VITALS: BP 152/88; PULSE 60; RESP 16; TEMP 37.1; O2SAT 100
[2019-05-01] MEDS: Metoclopramide 5 MG TABLET PO (16:34)
[2019-05-01] MEDS: Bisacodyl 10 MG Suppository RECTAL (16:35)
[2019-05-01 20:42] VITALS: BP 144/82; PULSE 61; RESP 16; TEMP 37.2; O2SAT 99
[2019-05-01] MEDS: Famotidine 20 MG Tablet PO (22:06)
[2019-05-02 02:32] VITALS: BP 129/76; PULSE 66; RESP 16; TEMP 37.2; O2SAT 95
[2019-05-02] MEDS: 0.9% Saline Lock 10 ML Syringe IV ×2 (06:23→21:03)
[2019-05-02] MEDS: Metoclopramide 5 MG TABLET PO ×3 (06:23→16:03)
[2019-05-02 08:30] VITALS: BP 118/73; PULSE 62; RESP 14; TEMP 37.2; O2SAT 98
--- NOTE | 2019-05-02 09:13 | NURSING ---
pts father questioning about pt being nauseated and not being able to eat for 5 days. informed of new med being used and pt reports feeling much better this am so far.
[2019-05-02] MEDS: Enoxaparin 40 MG/0.4 ML Syringe SC (09:49)
[2019-05-02] MEDS: Aspirin 81 MG TAB.CHEW PO ×2 (09:49→17:38)
[2019-05-02] MEDS: Famotidine 20 MG Tablet PO ×2 (09:50→21:04)
[2019-05-02 10:00] VITALS: O2SAT 98
--- NOTE | 2019-05-02 10:12 | PCM.PN.ID ---
Patient Problems: Active and Suspected Problems Osteomyelitis (Acute) Full-thickness skin dehiscence (Acute) Infection of skin and subcutaneous tissue (Acute) Subjective: Nausea much improved. No fever, feeling better. - Physical Exam Vitals/I&O's: Vital Signs Temp Pulse Resp BP Pulse Ox 98.9 F 62 14 118/73 98 05/02/19 08:30 05/02/19 08:30 05/02/19 08:30 05/02/19 08:30 05/02/19 08:30 Oxygen Delivery Method Room Air Weight: 67.3 kg Body Mass Index (BMI) 23.2 Intake and Output for Last 24 Hours 04/30/19 05/01/19 05/02/19 23:59 23:59 23:59 Intake Total 3431.17 / 4131.17 3526.0 / 3626.0 500 / 500 Output Total 400 / 800 900 / 1000 800 / 800 Balance 3031.17 / 3331.17 2626.0 / 2626.0 -300 / -300 General: Alert, Cooperative, No apparent distress Lungs: Clear to auscultation, Normal air movement Cardiovascular: Regular rate, Regular Rhythm Abdomen: Soft, Non Tender, Non-Distended Skin: Ulcer/ Wound - LLE wrapped Microbiology Past 72 Hours 04/30/19 17:30 Tissue - Aerobic & Anaerobic Swabs Gram Stain - Final 04/30/19 17:30 Tissue - Aerobic & Anaerobic Swabs Wound Culture - Final Enterobacter cloacae complex 04/30/19 17:30 Tissue - Aerobic & Anaerobic Swabs Gram Stain - Final 04/30/19 17:30 Tissue - Aerobic & Anaerobic Swabs Wound Culture - Preliminary No growth-Final to follow 04/27/19 09:20 Biopsy - Tissue Gram Stain - Final 04/27/19 09:20 Biopsy - Tissue Wound Culture - Final Enterobacter cloacae complex 04/27/19 09:20 Biopsy - Tissue Anaerobic Culture - Final No anaerobic bacteria isolated. 04/27/19 09:20 Biopsy - Tissue Gram Stain - Final 04/27/19 09:20 Biopsy - Tissue Wound Culture - Final Enterobacter cloacae complex 04/27/19 09:20 Biopsy - Tissue Anaerobic Culture - Final No anaerobic bacteria isolated. Current Medications Acetaminophen (Tylenol) 1,000 mg PO Q8 [facility] Last Admin: 05/02/19 07:58 Dose: Not Given Documented by: Al Hydroxide/Mg Hydroxide (Mylanta Ii) 15 ml PO Q4H PRN PRN PRN Reason: heart burn/dyspepdia Aspirin (Aspirin, Baby) 81 mg PO BIDCM [facility] Last Admin: 05/02/19 09:49 Dose: 81 mg Documented by: Enoxaparin Sodium (Lovenox) 40 mg SC DAILY [facility] Last Admin: 05/02/19 09:49 Dose: 40 mg Documented by: Famotidine (Pepcid) 20 mg PO BID [facility] Last Admin: 05/02/19 09:50 Dose: 20 mg Documented by: Hydromorphone HCl (Dilaudid Inj) 1 mg IV Q2H PRN PRN PRN Reason: Pain Score 6-10/10 Last Admin: 04/30/19 22:16 Dose: 1 mg Documented by: Sodium Chloride () 250 mls @ 15 mls/hr IV .[id number] PRN PRN Reason: Saline Flush Last Infusion: 04/30/19 06:05 Dose: 0 mls/hr Documented by: Cefepime HCl 2 gm/ Sodium (Chloride) 100 mls @ 200 mls/hr IV Q8 [facility] Last Infusion: 05/02/19 06:52 Dose: Infused Documented by: Metoclopramide HCl (Metoclopramide Hcl) 5 mg PO TIDAC [facility] Last Admin: 05/02/19 09:49 Dose: 5 mg Documented by: Nutritional Formula (Lactose Free) (Ensure Enlive) 120 ml PO 4X/DAY [facility] Last Admin: 05/02/19 09:50 Dose: 120 ml Documented by: Ondansetron HCl (Zofran) 4 mg IV Q8H PRN PRN PRN Reason: Nausea Last Admin: 05/01/19 22:07 Dose: 4 mg Documented by: Polyethylene Glycol (Miralax) 17 gm PO DAILY [facility] Last Admin: 05/02/19 09:58 Dose: Not Given Documented by: Scopolamine HBr (Transderm-Scop) 1 patch TD Q3D [facility] Last Admin: 04/30/19 09:24 Dose: 1 patch Documented by: Senna/Docusate Sodium (Senokot-S, Dawn-Colace) 2 tablet PO BID PRN PRN Reason: Constipation Last Admin: 05/01/19 06:16 Dose: 2 tablet Documented by: Sodium Chloride () 10 - 40 ml IV UD PRN PRN Reason: SALINE FLUSH Last Admin: 05/02/19 06:23 Dose: 10 ml Documented by: Tramadol HCl (Ultram) 100 mg PO Q6H PRN PRN PRN Reason: Pain Score 6-1010 Last Admin: 05/01/19 06:17 Dose: 100 mg Documented by: Medical Necessity - Tobacco Use Smoking Status: Never smoker Tobacco Use: Non-smoker Route of nutrition/ use of supplements: [] Nutritional Intake: [] IV Site: [] Sampson Catheter: [] - Assessment/Plan Antibiotics: [] Assessment/Plan: [] LLE osteo with hardware involvement s/p ORIF 04/11/[address] Hairston. Now s/p I&D by Dr. Khan 04/27. Two surg cxs with enterobacter. OR again 04/[address] Hairston. She reports tolerating bactrim and cipro in the past with no issue. If no other organisms show up on cxs, tentative plan will be for po bactrim DS at discharge which should have good bone/joint penetration and would avoid picc. If infected hardware remains in place, likely will need care home suppressive abx. Nausea much improved with cefepime compared to zosyn. Wrote rx for 6 weeks of bactrim, check bmp, cbc, and esr in a week. Left rx for labs in chart. ID followup in 3 weeks. Will follow, d/w rn case manager hospice
--- NOTE | 2019-05-02 10:43 | PN.ORTHO_ITS ---
Patient Problems: Active and Suspected Problems Osteomyelitis (Acute) Full-thickness skin dehiscence (Acute) Infection of skin and subcutaneous tissue (Acute) Subjective: Patient seen at bedside today resting comfortably. Patient is secondary status post debridement of medial lateral ankle wounds, washout, application of synthet ic skin substitute, application of wound VAC. Wound cultures and bone biopsy were also taken. Father and mother present during history and physical examination. Patient states that she is feeling significantly better and that her nausea has decreased. Patient states she has 2 bowel movement since the enema. Patient states that since the antibiotic was changed, and since that she has the enema, overall she is feeling better. Patient denies fever, chills, vomiting, shortness of breath, chest pain. Admits to mild nausea, but improved. Patient denies acute overnight events. Patient admits to minimal pain of her left foot and ankle. Objective: Left lower extremity physical exam: Dressing is clean, dry, intact to the left foot with no evidence of strikethrough. Wound VAC output is approximately 100 cc of serosanguineous drainage. Neurovascular status is intact to the digits of the left foot. Capillary fill time is less than 3 seconds to digits. Patient is able to dorsiflex and plantarflex the digits at well with no pain. Patient denies left calf pain. Calf is soft and supple. Negative Ly sign. - Physical Exam Vitals/I&O's: Vital Signs Temp Pulse Resp BP Pulse Ox 98.9 F 62 14 118/73 98 05/02/19 08:30 05/02/19 08:30 05/02/19 08:30 05/02/19 08:30 05/02/19 10:00 Oxygen Delivery Method Room Air Weight: 67.3 kg Body Mass Index (BMI) 23.2 Intake and Output for Last 24 Hours 04/30/19 05/01/19 05/02/19 23:59 23:59 23:59 Intake Total 3431.17 / 4131.17 3526.0 / 3626.0 500 / 500 Output Total 400 / 800 900 / 1000 800 / 800 Balance 3031.17 / 3331.17 2626.0 / 2626.0 -300 / -300 General: Alert, Oriented x3, Cooperative, No apparent distress Lungs: Clear to auscultation, Normal air movement, No rhonchi, No wheeze, No rales Cardiovascular: Regular rate, Regular Rhythm, Normal S1, Normal S2 Abdomen: Bowel Sounds Present, Soft, Non Tender, Non-Distended Psych/Mental Status: Alert and oriented to time, place, person, mood and affect Microbiology Past 72 Hours 04/30/19 17:30 Tissue - Aerobic & Anaerobic Swabs Gram Stain - Final 04/30/19 17:30 Tissue - Aerobic & Anaerobic Swabs Wound Culture - Final Enterobacter cloacae complex 04/30/19 17:30 Tissue - Aerobic & Anaerobic Swabs Gram Stain - Final 04/30/19 17:30 Tissue - Aerobic & Anaerobic Swabs Wound Culture - Preliminary No growth-Final to follow 04/27/19 09:20 Biopsy - Tissue Gram Stain - Final 04/27/19 09:20 Biopsy - Tissue Wound Culture - Final Enterobacter cloacae complex 04/27/19 09:20 Biopsy - Tissue Anaerobic Culture - Final No anaerobic bacteria isolated. 04/27/19 09:20 Biopsy - Tissue Gram Stain - Final 04/27/19 09:20 Biopsy - Tissue Wound Culture - Final Enterobacter cloacae complex 04/27/19 09:20 Biopsy - Tissue Anaerobic Culture - Final No anaerobic bacteria isolated. Current Medications Acetaminophen (Tylenol) 1,000 mg PO Q8 [facility] Last Admin: 05/02/19 07:58 Dose: Not Given Documented by: Al Hydroxide/Mg Hydroxide (Mylanta Ii) 15 ml PO Q4H PRN PRN PRN Reason: heart burn/dyspepdia Aspirin (A[facility]in, Baby) [facility] Last Admin: 05/02/19 09:49 Dose: 81 mg Documented by: Enoxaparin Sodium (Lovenox) 40 mg SC DAILY [facility] Last Admin: 05/02/19 09:49 Dose: 40 mg Documented by: Famotidine (Pepcid) 20 mg PO BID [facility] Last Admin: 05/02/19 09:50 Dose: 20 mg Documented by: Hydromorphone HCl (Dilaudid Inj) 1 mg IV Q2H PRN PRN PRN Reason: Pain Score 6-10/10 Last Admin: 04/30/19 22:16 Dose: 1 mg Documented by: Sodium Chloride () 250 mls @ 15 mls/hr IV .[id number] PRN PRN Reason: Saline Flush Last Infusion: 04/30/19 06:05 Dose: 0 mls/hr Documented by: Cefepime HCl 2 gm/ Sodium (Chloride) 100 mls @ 200 mls/hr IV Q8 [facility] Last Infusion: 05/02/19 06:52 Dose: Infused Documented by: Metoclopramide HCl (Metoclopramide Hcl) 5 mg PO TIDAC [facility] Last Admin: 05/02/19 09:49 Dose: 5 mg Documented by: Nutritional Formula (Lactose Free) (Ensure Enlive) 120 ml PO 4X/DAY [facility] Last Admin: 05/02/19 09:50 Dose: 120 ml Documented by: Ondansetron HCl (Zofran) 4 mg IV Q8H PRN PRN PRN Reason: Nausea Last Admin: 05/01/19 22:07 Dose: 4 mg Documented by: Polyethylene Glycol (Miralax) 17 gm PO DAILY [facility] Last Admin: 05/02/19 09:58 Dose: Not Given Documented by: Scopolamine HBr (Transderm-Scop) 1 patch TD Q3D [facility] Last Admin: 04/30/19 09:24 Dose: 1 patch Documented by: Senna/Docusate Sodium (Senokot-S, Dawn-Colace) 2 tablet PO BID PRN PRN Reason: Constipation Last Admin: 05/01/19 06:16 Dose: 2 tablet Documented by: Sodium Chloride () 10 - 40 ml IV UD PRN PRN Reason: SALINE FLUSH Last Admin: 05/02/19 06:23 Dose: 10 ml Documented by: Tramadol HCl (Ultram) 100 mg PO Q6H PRN PRN PRN Reason: Pain Score 6-10/10 Last Admin: 05/01/19 06:17 Dose: 100 mg Documented by: Medical Necessity - Tobacco Use Smoking Status: Never smoker Tobacco Use: Non-smoker Assessment/Plan All Active Problems Status post open reduction and internal fixation (ORIF) of fracture (Acute) Open wound of left lower leg with complication (Acute) Exposed orthopaedic hardware (Acute) Osteomyelitis (Acute) Full-thickness skin dehiscence (Acute) Infection of skin and subcutaneous tissue (Acute) Fracture of tibial shaft, left, closed (Acute) Left fibular fracture (Acute) Patient chart reviewed and patient evaluated. Full discussion had with the patient and her parents about her current clinical condition. Another discussion washad with them about her options at this time. This includes continued care with the graft and the wound VAC. This also includes a referral for possible free flap application. Furthermore this also includes removal of the internal hardware with application of external fixator. At this time patient is agreeable to continue current treatment at this time. At this point discussed with the patient that she will follow-up with both Dr. Clifton and myself for further intervention. We will keep the wound VAC clean dry and intact until next week when she is can see Dr. Clifton of the wound care center. Appreciate input and help from Dr. Clifton. Patient is approved for home wound VAC use. Antibiotic management deferred to Dr. Dave. He is ok with discharging her home on oral antibiotics. Prescription in chart. Appreciate input and help from Dr. Dave. I appreciate the continued support and medical management by the hospitalist staff and Dr. Blank. At this point patient is to remain nonweightbearing to the left foot and leg. At this point, as long as patient continues to improve, would like to discharge home tomorrow, May 03. She is to follow-up with Dr. trevino in the wound care center at 8 AM on May 06. We will continue to follow patient closely and update accordingly. She is going to follow-up with me on May 13 for further fracture care. Patient and patient's family displayed verbal understanding to all written and oral instructions at this time. They are agreeable to the current treatment plan at this time. All their questions were answered to their satisfaction and all their concerns were addressed. We will see the patient tomorrow and hopefully discharge home then. Multi Select Codes - Visit Charges Visit Charges: [address] [facility] Hosp L3
--- NOTE | 2019-05-02 10:53 | NURSING ---
Pt aware of follow up appt at the [facility] on 05/06/19 at 8am. Pt is hoping to be discharged home tomorrow. States she is feeling much better today. family present at bedside. wound VAC remains intact to the left medial and lateral ankle at 100mmHg low continuous suction.
[2019-05-02 11:21] VITALS: BP 125/80; PULSE 58; RESP 14; TEMP 37.1; O2SAT 100
--- NOTE | 2019-05-02 11:32 | PN_ITS ---
Patient Problems: Active and Suspected Problems Osteomyelitis (Acute) Full-thickness skin dehiscence (Acute) Infection of skin and subcutaneous tissue (Acute) Subjective: CC: Follow-up for medical problem wound infection, nausea and dyspeptic symptoms. Vitals/I&O's: Vital Signs Temp Pulse Resp BP Pulse Ox 98.8 F 58 L 14 125/80 H 100 05/02/19 11:21 05/02/19 11:21 05/02/19 11:21 05/02/19 11:21 05/02/19 11:21 Oxygen Delivery Method Room Air Weight: 148 lb 5.938 oz Body Mass Index (BMI) 23.2 Intake and Output for Last 24 Hours 04/30/19 05/01/19 05/02/19 23:59 23:59 23:59 Intake Total 3431.17 / 4131.17 3526.0 / 3626.0 500 / 500 Output Total 400 / 800 900 / 1000 800 / 800 Balance 3031.17 / 3331.17 2626.0 / 2626.0 -300 / -300 General: Alert, Oriented x3, Cooperative HEENT: Atraumatic, PERRLA, EOMI, Normocephalic Neck: Supple, No JVD, Negative Carotid Bruits Lungs: Clear to auscultation, Normal air movement, No rhonchi, No wheeze, No rales Cardiovascular: Regular rate, Regular Rhythm, Normal S1, Normal S2, No murmurs Abdomen: Bowel Sounds Present, Soft, Non Tender Extremities: No edema, Capillary Refill Less than 3 Seconds Skin: No rashes, No breakdown Musculoskeletal: Arthritic Changes, Tenderness, - - Left ankle is Eamon wrapped. Neurological: Cranial nerves II-XII grossly intact Psych/Mental Status: Normal Affect, Appropriate Microbiology Past 72 Hours 04/30/19 17:30 Tissue - Aerobic & Anaerobic Swabs Gram Stain - Final 04/30/19 17:30 Tissue - Aerobic & Anaerobic Swabs Wound Culture - Final Enterobacter cloacae complex 04/30/19 17:30 Tissue - Aerobic & Anaerobic Swabs Gram Stain - Final 04/30/19 17:30 Tissue - Aerobic & Anaerobic Swabs Wound Culture - Preliminary No growth-Final to follow 04/27/19 09:20 Biopsy - Tissue Gram Stain - Final 04/27/19 09:20 Biopsy - Tissue Wound Culture - Final Enterobacter cloacae complex 04/27/19 09:20 Biopsy - Tissue Anaerobic Culture - Final No anaerobic bacteria isolated. 04/27/19 09:20 Biopsy - Tissue Gram Stain - Final 04/27/19 09:20 Biopsy - Tissue Wound Culture - Final Enterobacter cloacae complex 04/27/19 09:20 Biopsy - Tissue Anaerobic Culture - Final No anaerobic bacteria isolated. Current Medications Acetaminophen (Tylenol) 1,000 mg PO Q8 [facility] Last Admin: 05/02/19 07:58 Dose: Not Given Documented by: Al Hydroxide/Mg Hydroxide (Mylanta Ii) 15 ml PO Q4H PRN PRN PRN Reason: heart burn/dyspepdia Aspirin (Aspirin, Baby) 81 mg PO BIDCM [facility] Last Admin: 05/02/19 09:49 Dose: 81 mg Documented by: Enoxaparin Sodium (Lovenox) 40 mg SC DAILY [facility] Last Admin: 05/02/19 09:49 Dose: 40 mg Documented by: Famotidine (Pepcid) 20 mg PO BID [facility] Last Admin: 05/02/19 09:50 Dose: 20 mg Documented by: Hydromorphone HCl (Dilaudid Inj) 1 mg IV Q2H PRN PRN PRN Reason: Pain Score 6-10/10 Last Admin: 04/30/19 22:16 Dose: 1 mg Documented by: Sodium Chloride () 250 mls @ 15 mls/hr IV .[id number] PRN PRN Reason: Saline Flush Last Infusion: 04/30/19 06:05 Dose: 0 mls/hr Documented by: Cefepime HCl 2 gm/ Sodium (Chloride) 100 mls @ 200 mls/hr IV Q8 [facility] Last Infusion: 05/02/19 06:52 Dose: Infused Documented by: Metoclopramide HCl (Metoclopramide Hcl) 5 mg PO TIDAC [facility] Last Admin: 05/02/19 09:49 Dose: 5 mg Documented by: Nutritional Formula (Lactose Free) (Ensure Enlive) 120 ml PO 4X/DAY [facility] Last Admin: 05/02/19 09:50 Dose: 120 ml Documented by: Ondansetron HCl (Zofran) 4 mg IV Q8H PRN PRN PRN Reason: Nausea Last Admin: 05/01/19 22:07 Dose: 4 mg Documented by: Polyethylene Glycol (Miralax) 17 gm PO DAILY [facility] Last Admin: 05/02/19 09:58 Dose: Not Given Documented by: Scopolamine HBr (Transderm-Scop) 1 patch TD Q3D [facility] Last Admin: 04/30/19 09:24 Dose: 1 patch Documented by: Senna/Docusate Sodium (Senokot-S, Dawn-Colace) 2 tablet PO BID PRN PRN Reason: Constipation Last Admin: 05/01/19 06:16 Dose: 2 tablet Documented by: Sodium Chloride () 10 - 40 ml IV UD PRN PRN Reason: SALINE FLUSH Last Admin: 05/02/19 06:23 Dose: 10 ml Documented by: Tramadol HCl (Ultram) 100 mg PO Q6H PRN PRN PRN Reason: Pain Score 6-10/10 Last Admin: 05/01/19 06:17 Dose: 100 mg Documented by: STROKE Vital Signs/Narrative: Vital Signs Temp Pulse Resp BP Pulse Ox 05/02/19 11:21 98.8 F 58 L 14 125/80 H 100 05/02/19 10:00 98 05/02/19 08:30 98.9 F 62 14 118/73 98 Medical Necessity - Tobacco Use Smoking Status: Never smoker Tobacco Use: Non-smoker Assessment/Plan All Active Problems Status post open reduction and internal fixation (ORIF) of fracture (Acute) Open wound of left lower leg with complication (Acute) Exposed orthopaedic hardware (Acute) Osteomyelitis (Acute) Full-thickness skin dehiscence (Acute) Infection of skin and subcutaneous tissue (Acute) Fracture of tibial shaft, left, closed (Acute) Left fibular fracture (Acute) This is a 33 years old female patient was admitted directly from her orthopedic surgeon's office for increasing drainage from the incision area on the left leg after she underwent open reduction and internal fixation for comminuted, displaced left tibial distal fracture and left lateral mass fracture on April 11, 2019. She had left leg medial and lateral wound infection status post irrigation and debridement on April 27, [address] Khan. #1 left medial and lateral leg postoperative wound infection: Status post irrigation debridement of the left leg wound, subcutaneous tissue and fascia, postoperative day 2. Initially, patient was on IV Zosyn and vancomycin then vancomycin discontinued. CRP less than 2.9. No fever or chills. Hemodynamically stable. Two Tissue biopsy culture shows Enterobacter cloaca. Enterobacter is sensitive to Zosyn, Cipro and Bactrim. 05/01: Patient had or wound debridement on 04/30. She has infection of the medial and lateral ankle wounds surgical dehiscence. Had debridement of nonviable tissue of left medial lateral ankle wounds down to level of tendon, muscle and fascia. Tissue biopsy culture is growing Enterobacter. On antibiotic She still has nausea, dyspeptic symptoms. On Reglan 5 mg half an hour before meal. On Pepcid 20 mg p.o. twice daily and Mylanta as needed 05/02: Patient abdominal symptoms are much better. On IV antibiotic IV cefepime and Flagyl. Patient also has vaginal itching/yeast infection. Started on micronodule vaginal cream. Possible discharge by Ortho tomorrow a.m. Discussed with orthopedic surgeon. #2 recent traumatic comminuted/displaced distal left tibia and left lateral manual fractures: Status post open reduction and internal fixation on April 11, 2019. Complicated by postoperative wound infection. As mentioned above #3 DVT prophylaxis: On Lovenox 40 mg subcu daily Signout: Patient is in Ortho service. Plan for discharge tomorrow by Ortho service. Microbiology Past 72 Hours 04/30/19 17:30 Tissue - Aerobic & Anaerobic Swabs Gram Stain - Final 04/30/19 17:30 Tissue - Aerobic & Anaerobic Swabs Wound Culture - Final Enterobacter cloacae complex 04/30/19 17:30 Tissue - Aerobic & Anaerobic Swabs Gram Stain - Final 04/30/19 17:30 Tissue - Aerobic & Anaerobic Swabs Wound Culture - Preliminary No growth-Final to follow Active Medications Acetaminophen (Tylenol) 1,000 mg PO Q8 [facility] Last Admin: 05/02/19 13:29 Dose: Not Given Documented by: Al Hydroxide/Mg Hydroxide (Mylanta Ii) 15 ml PO Q4H PRN PRN PRN Reason: heart burn/dyspepdia [facility] Last Admin: 05/02/19 17:38 Dose: 81 mg Documented by: Enoxaparin Sodium (Lovenox) 40 mg SC DAILY [facility] Last Admin: 05/02/19 09:49 Dose: 40 mg Documented by: Famotidine (Pepcid) 20 mg PO BID [facility] Last Admin: 05/02/19 09:50 Dose: 20 mg Documented by: Hydromorphone HCl (Dilaudid Inj) 1 mg IV Q2H PRN PRN PRN Reason: Pain Score 6-10/10 Last Admin: 04/30/19 22:16 Dose: 1 mg Documented by: Sodium Chloride () 250 mls @ 15 mls/hr IV .[id number] PRN PRN Reason: Saline Flush Last Infusion: 04/30/19 06:05 Dose: 0 mls/hr Documented by: Cefepime HCl 2 gm/ Sodium (Chloride) 100 mls @ 200 mls/hr IV Q8 [facility] Last Infusion: 05/02/19 15:07 Dose: Infused Documented by: Metoclopramide HCl (Metoclopramide Hcl) 5 mg PO TIDAC [facility] Last Admin: 05/02/19 16:03 Dose: 5 mg Documented by: Miconazole Nitrate (Monistat 7) 1 applic VAGINAL QHS [facility] Stop: 05/07/19 22:01 Last Admin: 05/02/19 13:27 Dose: 1 applicatio Documented by: Nutritional Formula (Lactose Free) (Ensure Enlive) 120 ml PO 4X/DAY [facility] Last Admin: 05/02/19 17:38 Dose: 120 ml Documented by: Ondansetron HCl (Zofran) 4 mg IV Q8H PRN PRN PRN Reason: Nausea Last Admin: 05/01/19 22:07 Dose: 4 mg Documented by: Polyethylene Glycol (Miralax) 17 gm PO DAILY [facility] Last Admin: 05/02/19 09:58 Dose: Not Given Documented by: Scopolamine HBr (Transderm-Scop) 1 patch TD Q3D [facility] Last Admin: 04/30/19 09:24 Dose: 1 patch Documented by: Senna/Docusate Sodium (Senokot-S, Dawn-Colace) 2 tablet PO BID PRN PRN Reason: Constipation Last Admin: 05/01/19 06:16 Dose: 2 tablet Documented by: Sodium Chloride () 10 - 40 ml IV UD PRN PRN Reason: SALINE FLUSH Last Admin: 05/02/19 06:23 Dose: 10 ml Documented by: Tramadol HCl (Ultram) 100 mg PO Q6H PRN PRN PRN Reason: Pain Score 6-10/10 Last Admin: 05/01/19 06:17 Dose: 100 mg Documented by: Code Visit Inpatient E&M: 21951 Subs Hosp L2
[2019-05-02] MEDS: Miconazole-7 Nitrate Cream 1 APPLIC VAGINAL (13:27)
[2019-05-02 18:00] VITALS: BP 117/67; PULSE 68; RESP 16; TEMP 37.5; O2SAT 96
[2019-05-02 20:55] VITALS: BP 132/71; PULSE 66; RESP 16; TEMP 36.9; O2SAT 94
[2019-05-03 03:15] VITALS: BP 128/78; PULSE 63; RESP 16; TEMP 37.2; O2SAT 97
[2019-05-03] MEDS: Metoclopramide 5 MG TABLET PO ×2 (06:08→10:12)
[2019-05-03] MEDS: 0.9% Saline Lock 10 ML Syringe IV ×2 (06:08→11:37)
[2019-05-03 07:47] VITALS: BP 150/69; PULSE 62; RESP 16; TEMP 37.1; O2SAT 96
[2019-05-03] MEDS: Scopolamine 1mg/72hr Patch 1 PATCH TD (07:56)
[2019-05-03] MEDS: Famotidine 20 MG Tablet PO (10:12)
[2019-05-03] MEDS: HYDROmorphone 1 MG/ML Syringe IV (11:36)
--- NOTE | 2019-05-03 12:40 | PCM.DC.ORTHO ---
Discharge Diet: No Restrictions Discharge Activity: May Not Drive, May not drive while taking narcotic pain medications., May Not Shower, May Take a Tub Bath, Use Walker, Use Crutches Weight Bearing Status: No weight bearing - to left lower extremity Keep extremity elevated above heart level: Left Leg - at all times Call your doctor if your incision/area has: Sudden Increased Bleeding, Increased Pain/ Swelling Call your doctor if you observe: Fever of 101 or Higher, Coldness, Increased Pain, Inability to have a bowel movement, Shortness of breath, Chest pain, Increased palpitations (irregular heartbeat), Uncontrolled pain Change Dressing in (Days):: 0 - Do not change dressing Remove Dressing in (days):: 0 - Do not remove dressing Cleanse incision/area with: Keep Dressing Clean & Dry - Do not get dressing wet Drain: Suction - Wound VAC on left leg Additional Dressing/Incision Instructions:: Keep dressing clean, dry and intact. Do not get dressing wet. Elevate left foot above level of heart as much as possible. Ice behind left knee 20 minutes on 20 minutes off every hour while awake. No walking/standing on left foot. Take medications as instructed. Allergies/Adverse Reactions: Allergies No Known Allergies Allergy (Verified 04/11/19 09:54) Medications to take at Discharge Lorazepam [Ativan] 0.5 mg PO Q8H PRN PRN 03/31/19 Hydrocodone/Acetaminophen [[place] 5-325 Tablet] 1 ea PO Q4H PRN PRN 04/05/19 Smz/Tmp Ds [Bactrim Ds] 1 tab PO BID 40 Days #80 tab 05/02/19 Ondansetron [Zofran Odt] 4 mg PO Q8H PRN PRN #30 tab 05/03/19 The following prescriptions were given: Smz/Tmp Ds [Bactrim Ds] 1 tab PO BID 40 Days #80 tab Transmission Status: Received by [id number] Ondansetron [Zofran Odt] 4 mg PO Q8H PRN PRN #30 tab PRN Reason: Nausea Transmission Status: Pending to [id number] Primary Care Physician: NARINDER DAVILA [Other] Please follow up with your Primary Care Physician in: 2 weeks Test Results: Test results from this visit will be discussed in further detail at your follow-up appointment, if applicable. Please Follow Up With: Kasey Whitehead [facility] When: Monday Please Follow Up With: Altaf Dave MD When: 3 weeks Please Follow Up With: Mc Davila DPM When: on 05/07 Proposed Discharge Date: 05/03/19
--- NOTE | 2019-05-03 12:41 | PN.ID_ITS ---
Patient Problems: Active and Suspected Problems Osteomyelitis (Acute) Full-thickness skin dehiscence (Acute) Infection of skin and subcutaneous tissue (Acute) Subjective: Feeling better, no fever, still some nausea - Physical Exam Vitals/I&O's: Vital Signs Temp Pulse Resp BP Pulse Ox 98.8 F 62 16 150/69 H 96 05/03/19 07:47 05/03/19 07:47 05/03/19 07:47 05/03/19 07:47 05/03/19 07:47 Oxygen Delivery Method Room Air Weight: 67.3 kg Body Mass Index (BMI) 23.2 Intake and Output for Last 24 Hours 05/01/19 05/02/19 05/03/19 23:59 23:59 23:59 Intake Total 3526.0 / 3626.0 700 / 1236.75 902.25 / 902.25 Output Total 900 / 1000 800 / 1200 1100 / 1100 Balance 2626.0 / 2626.0 -100 / 36.75 -197.75 / -197.75 General: Alert, Cooperative, No apparent distress Lungs: Clear to auscultation, Normal air movement Cardiovascular: Regular rate, Regular Rhythm Skin: Incision - dry, wound vac in place Microbiology Past 72 Hours 04/30/19 17:30 Tissue - Aerobic & Anaerobic Swabs Gram Stain - Final 04/30/19 17:30 Tissue - Aerobic & Anaerobic Swabs Wound Culture - Final No growth aerobically. 04/30/19 17:30 Tissue - Aerobic & Anaerobic Swabs Gram Stain - Final 04/30/19 17:30 Tissue - Aerobic & Anaerobic Swabs Wound Culture - Final Enterobacter cloacae complex Current Medications Acetaminophen (Tylenol) 1,000 mg PO Q8 [facility] Last Admin: 05/03/19 06:09 Dose: Not Given Documented by: Hydrocodone Bitart/Acetaminophen ([place] 5mg-325mg) 1 tablet PO Q4H PRN PRN PRN Reason: Pain or Fever Al Hydroxide/Mg Hydroxide (Mylanta Ii) 15 ml PO Q4H PRN PRN PRN Reason: heart burn/dyspepdia Aspirin (Aspirin, Baby) 81 mg PO BIDCM [facility] Last Admin: 05/03/19 07:54 Dose: Not Given Documented by: Enoxaparin Sodium (Lovenox) 40 mg SC DAILY [facility] Last Admin: 05/03/19 10:11 Dose: Not Given Documented by: Famotidine (Pepcid) 20 mg PO BID [facility] Last Admin: 05/03/19 10:12 Dose: 20 mg Documented by: Hydromorphone HCl (Dilaudid Inj) 1 mg IV Q2H PRN PRN PRN Reason: Pain Score 6-10/10 Last Admin: 05/03/19 11:36 Dose: 1 mg Documented by: Sodium Chloride () 250 mls @ 15 mls/hr IV .[id number] PRN PRN Reason: Saline Flush Last Infusion: 05/03/19 11:00 Dose: 0 mls/hr Documented by: Cefepime HCl 2 gm/ Sodium (Chloride) 100 mls @ 200 mls/hr IV Q8 [facility] Last Infusion: 05/03/19 06:38 Dose: Infused Documented by: Lorazepam (Ativan) 0.5 mg PO Q8H PRN PRN PRN Reason: ANXIETY Metoclopramide HCl (Metoclopramide Hcl) 5 mg PO TIDAC [facility] Last Admin: 05/03/19 10:12 Dose: 5 mg Documented by: Miconazole Nitrate (Monistat 7) 1 applic VAGINAL QHS [facility] Stop: 05/07/19 22:01 Last Admin: 05/02/19 21:00 Dose: Not Given Documented by: Nutritional Formula (Lactose Free) (Ensure Enlive) 120 ml PO 4X/DAY [facility] Last Admin: 05/03/19 10:10 Dose: 120 ml Documented by: Ondansetron HCl (Zofran) 4 mg IV Q8H PRN PRN PRN Reason: Nausea Last Admin: 05/01/19 22:07 Dose: 4 mg Documented by: Polyethylene Glycol (Miralax) 17 gm PO DAILY [facility] Last Admin: 05/03/19 10:06 Dose: Not Given Documented by: Scopolamine HBr (Transderm-Scop) 1 patch TD Q3D [facility] Last Admin: 05/03/19 07:56 Dose: 1 patch Documented by: Senna/Docusate Sodium (Senokot-S, Dawn-Colace) 2 tablet PO BID PRN PRN Reason: Constipation Last Admin: 05/01/19 06:16 Dose: 2 tablet Documented by: Sodium Chloride () 10 - 40 ml IV UD PRN PRN Reason: SALINE FLUSH Last Admin: 05/03/19 11:37 Dose: 10 ml Documented by: Tramadol HCl (Ultram) 100 mg PO Q6H PRN PRN PRN Reason: Pain Score 6-03/21 Last Admin: 05/01/19 06:17 Dose: 100 mg Documented by: Medical Necessity - Tobacco Use Smoking Status: Never smoker Tobacco Use: Non-smoker Route of nutrition/ use of supplements: [] Nutritional Intake: [] IV Site: [] Sampson Catheter: [] - Assessment/Plan Antibiotics: [] Assessment/Plan: [] LLE osteo with hardware involvement s/p ORIF 04/11/[address] Hairston. Now s/p I&D by Dr. Khan 04/27. Two surg cxs with enterobacter. OR again 04/[address] Hairston. She reports tolerating bactrim and cipro in the past with no issue. Plan is for po bactrim DS at discharge which should have good bone/joint penetration and would avoid picc. If infected hardware remains in place, likely will need half-way suppressive abx. Nausea much improved with cefepime compared to zosyn. Wrote rx for 6 weeks of bactrim, check bmp, cbc, and esr in a week. Left rx for labs in chart. ID followup in 3 weeks. Will follow, d/w case investigator and Dr. Peraza
--- NOTE | 2019-05-03 12:50 | DS.PCM_ITS ---
Discharge Date and Diagnosis - Problem List Patient Problems: Active and Suspected Problems Osteomyelitis (Acute) Full-thickness skin dehiscence (Acute) Infection of skin and subcutaneous tissue (Acute) Date of Admission: 04/26/19 Date of Discharge: 05/03/19 - Primary Discharge Diagnosis Active and Suspected Problems Osteomyelitis (Acute) Full-thickness skin dehiscence (Acute) Infection of skin and subcutaneous tissue (Acute) Hospital Course and Treatment Consultations 04/26/19: Consult: Dr. Stanislaw Peraza, Hospitalist for medical management 04/27/19 Consult: Pharm/Renal, IV antibiotic management 04/29: Consult: Dr. Altaf Dave, Infectious Disease, Antibiotic Management 05/01 Consult: Dr. Benson Clifton, Plastic Surgery, assistance with closure of complicated postoperative wound 05/01/19 15:26 Consult: Onc/Wound/gymnastics instructor Routine Comment: Reason for Consult:: assist with getting home VAC for left ankle wounds Operations: - - 04/27: right lateral and medial ankle wound debridement, washout, culture, wound vac 04/30: right lateral and medial ankle wound debridement, washout, culture, wound vac, graft application Summary of Care Provided: The patient is a 33 year old F who suffered a tibia and fibula fracture on March 31 while ice-skating. Patient followed up with me in the office where determined that an open reduction with internal fixation of the tibia and fibula fractures will be performed. The surgery was performed on April 11. Patient was seen for first postoperative visit on MondayApril 23. At that time the incision sites had mild erythema, and she was prescribed oral antibiotics by her physician branch assistant. She is instructed to follow-up on April 26 for further evaluation. At that appointment on April 26. It was noticed that the incision sites were significantly erythematous with purulent drainage. She was seen by Dr. Khan, who directly admitted her. Dr. Khan then performed an incision and drainage of the medial and lateral ankle wounds with debridement, washout, wound culture, application of wound VAC on April 27. Dr. Peraza was consulted for medical management. Dr. Dave was consulted from infectious disease for antibiotic management. Dr. Clifton from plastic surgery was consulted for assistance and complex wound management. I subsequently saw the patient and brought her back to the operating room for further debridement and washout, wound culture, with application of graft and wound VAC to the medial and lateral ankle wounds. Dr. Clifton was present in the operating room as well. Both rounds of wound cultures showed Enterobacter. Patient stayed in- house for further IV antibiotic management, and regulation of nausea and absence of bowel movements. Patient's nausea has become significantly better. She has had several bowel movements over the past 3 days. She is tolerating p.o. intake well. Infectious disease has written for oral antibiotics to follow-up with her in [address] Clifton will see her at the wound care center on May 06. I will see the patient on May 07 for further fracture care. [] Patient Problems: Active and Suspected Problems Osteomyelitis (Acute) Full-thickness skin dehiscence (Acute) Infection of skin and subcutaneous tissue (Acute) Subjective: 33-year-old female seen at bedside today 33-year-old female seen at bedside today 3 days status post debridement of medial and lateral ankle wounds, washout of wound, culture wound, application of graft to wound, application of wound VAC. Patient states that her nausea is gone and she feels significantly better. Patient states that she had the wound VAC changed today and experienced minimal pain. Wound care nurse was present at bedside today, and states that the wound VAC change went well and adequate seal and suction was noted. Patient states that she is eager eager to go home and feels that she is able to. She has had several bowel movements and no longer feels constipated. Currently, patient denies fever, chills, nausea, vomiting, shortness of breath, chest pain. Patient denies left calf pain. Objective: Left lower extremity exam: Dressing is clean, dry, intact to left lower extremity. Adequate seal and suction as noted of the wound VAC at 100 mmHg low continuous. No drainage noted in the canister since the VAC was just changed. Neurovascular status intact to digits the left foot. Capillary fill time is less than 3 seconds to digits. Patient is able to dorsiflex and plantarflex digits freely without pain. - Physical Exam Vitals/I&O's: Vital Signs Temp Pulse Resp BP Pulse Ox 98.8 F 62 16 150/69 H 96 05/03/19 07:47 05/03/19 07:47 05/03/19 07:47 05/03/19 07:47 05/03/19 07:47 Oxygen Delivery Method Room Air Weight: 67.3 kg Body Mass Index (BMI) 23.2 Intake and Output for Last 24 Hours 05/01/19 05/02/19 05/03/19 23:59 23:59 23:59 Intake Total 3526.0 / 3626.0 700 / 1236.75 902.25 / 902.25 Output Total 900 / 1000 800 / 1200 1100 / 1100 Balance 2626.0 / 2626.0 -100 / 36.75 -197.75 / -197.75 General: Alert, Oriented x3, Cooperative, No apparent distress, Well developed, Well nourished HEENT: Atraumatic, PERRLA, EOMI, Normocephalic Neck: Supple, No JVD Lungs: Clear to auscultation, Normal air movement, No rhonchi, No wheeze, No rales Cardiovascular: Regular rate, Regular Rhythm, Normal S1, Normal S2 Abdomen: Bowel Sounds Present, Soft, Non Tender, Non-Distended Extremities: Capillary Refill Less than 3 Seconds Psych/Mental Status: Normal Affect, Alert and oriented to time, place, person, mood and affect Microbiology Past 72 Hours 04/30/19 17:30 Tissue - Aerobic & Anaerobic Swabs Gram Stain - Final 04/30/19 17:30 Tissue - Aerobic & Anaerobic Swabs Wound Culture - Final No growth aerobically. 04/30/19 17:30 Tissue - Aerobic & Anaerobic Swabs Gram Stain - Final 04/30/19 17:30 Tissue - Aerobic & Anaerobic Swabs Wound Culture - Final Enterobacter cloacae complex Current Medications Acetaminophen (Tylenol) 1,000 mg PO Q8 [facility] Last Admin: 05/03/19 06:09 Dose: Not Given Documented by: Hydrocodone Bitart/Acetaminophen ([place] 5mg-325mg) 1 tablet PO Q4H PRN PRN PRN Reason: Pain or Fever Al Hydroxide/Mg Hydroxide (Mylanta Ii) 15 ml PO Q4H PRN PRN PRN Reason: heart burn/dyspepdia [facility], [facility]) [facility] Last Admin: 05/03/19 07:54 Dose: Not Given Documented by: Enoxaparin Sodium (Lovenox) 40 mg SC DAILY [facility] Last Admin: 05/03/19 10:11 Dose: Not Given Documented by: Famotidine (Pepcid) 20 mg PO BID [facility] Last Admin: 05/03/19 10:12 Dose: 20 mg Documented by: Hydromorphone HCl (Dilaudid Inj) 1 mg IV Q2H PRN PRN PRN Reason: Pain Score 6-10/10 Last Admin: 05/03/19 11:36 Dose: 1 mg Documented by: Sodium Chloride () 250 mls @ 15 mls/hr IV .[id number] PRN PRN Reason: Saline Flush Last Infusion: 05/03/19 11:00 Dose: 0 mls/hr Documented by: Cefepime HCl 2 gm/ Sodium (Chloride) 100 mls @ 200 mls/hr IV Q8 [facility] Last Infusion: 05/03/19 06:38 Dose: Infused Documented by: Lorazepam (Ativan) 0.5 mg PO Q8H PRN PRN PRN Reason: ANXIETY Metoclopramide HCl (Metoclopramide Hcl) 5 mg PO TIDAC [facility] Last Admin: 05/03/19 10:12 Dose: 5 mg Documented by: Miconazole Nitrate (Monistat 7) 1 applic VAGINAL QHS [facility] Stop: 05/07/19 22:01 Last Admin: 05/02/19 21:00 Dose: Not Given Documented by: Nutritional Formula (Lactose Free) (Ensure Enlive) 120 ml PO 4X/DAY [facility] Last Admin: 05/03/19 10:10 Dose: 120 ml Documented by: Ondansetron HCl (Zofran) 4 mg IV Q8H PRN PRN PRN Reason: Nausea Last Admin: 05/01/19 22:07 Dose: 4 mg Documented by: Polyethylene Glycol (Miralax) 17 gm PO DAILY [facility] Last Admin: 05/03/19 10:06 Dose: Not Given Documented by: Scopolamine HBr (Transderm-Scop) 1 patch TD Q3D [facility] Last Admin: 05/03/19 07:56 Dose: 1 patch Documented by: Senna/Docusate Sodium (Senokot-S, Dawn-Colace) 2 tablet PO BID PRN PRN Reason: Constipation Last Admin: 05/01/19 06:16 Dose: 2 tablet Documented by: Sodium Chloride () 10 - 40 ml IV UD PRN PRN Reason: SALINE FLUSH Last Admin: 05/03/19 11:37 Dose: 10 ml Documented by: Tramadol HCl (Ultram) 100 mg PO Q6H PRN PRN PRN Reason: Pain Score 6-10/10 Last Admin: 05/01/19 06:17 Dose: 100 mg Documented by: Discharge Diet: No Restrictions Discharge Activity: May Not Drive, May not drive while taking narcotic pain medications., May Not Shower, May Take a Tub Bath, Use Walker, Use Crutches Ice area for (Minutes): 20 Weight Bearing Status: No weight bearing - to left lower extremity Keep extremity elevated above heart level: Left Leg - at all times Call your doctor if your incision/area has: Sudden Increased Bleeding, Increased Pain/ Swelling Call your doctor if you observe: Fever of 101 or Higher, Coldness, Increased Pain, Inability to have a bowel movement, Shortness of breath, Chest pain, Increased palpitations (irregular heartbeat), Uncontrolled pain Change Dressing in (Days):: 0 - Do not change dressing Remove Dressing in (days):: 0 - Do not remove dressing Cleanse incision/area with: Keep Dressing Clean & Dry - Do not get dressing wet Drain: Suction - Wound VAC on left leg Additional Dressing/Incision Instructions:: Keep dressing clean, dry and intact. Do not get dressing wet. Elevate left foot above level of heart as much as possible. Ice behind left knee 20 minutes on 20 minutes off every hour while awake. No walking/standing on left foot. Take medications as instructed. Home Medications: Medications to take at Discharge Lorazepam [Ativan] 0.5 mg PO Q8H PRN PRN 03/31/19 Hydrocodone/Acetaminophen [[place] 5-325 Tablet] 1 ea PO Q4H PRN PRN 04/05/19 Smz/Tmp Ds [Bactrim Ds] 1 tab PO BID 40 Days #80 tab 05/02/19 Ondansetron [Zofran Odt] 4 mg PO Q8H PRN PRN #30 tab 05/03/19 Following Prescrptions Were Given to Patient: Smz/Tmp Ds [Bactrim Ds] 1 tab PO BID 40 Days #80 tab Transmission Status: Received by [facility] Ondansetron [Zofran Odt] 4 mg PO Q8H PRN PRN #30 tab PRN Reason: Nausea Transmission Status: Received by [facility] Primary Care Physician: NARINDER DAVILA [Other] Please follow up with your Primary Care Physician in: 2 weeks Please Follow Up With: K[facility]head [facility] When: Monday Please Follow Up With: Altaf Dave MD When: 3 weeks Please Follow Up With: Mc Davila DPM When: on 05/07 Disposition: Home Minutes spent on discharge:: 45 Patient Condition:: Good Medical Necessity - Tobacco Use Smoking Status: Never smoker Tobacco Use: Non-smoker Meaningful Use Info Meaningful Use Diagnoses (Choose all that apply): None applicable Code Visit Inpatient E&M: 23046 Disch Hosp
--- NOTE | 2019-05-03 12:50 | NURSING ---
wound photo: left lateral ankle
--- NOTE | 2019-05-03 12:51 | NURSING ---
wound photo: left medial ankle
[2019-05-03 13:30] VITALS: BP 140/83; PULSE 58; RESP 16; TEMP 37.2; O2SAT 99
--- NOTE | 2019-05-03 14:04 | PN.SURG_ITS ---
Patient Problems: Active and Suspected Problems Osteomyelitis (Acute) Full-thickness skin dehiscence (Acute) Infection of skin and subcutaneous tissue (Acute) Subjective: Patient in bed with right leg elevated for a wound VAC dressing changed - Physical Exam Vitals/I&O's: Vital Signs Temp Pulse Resp BP Pulse Ox 98.9 F 58 L 16 140/83 H 99 05/03/19 13:30 05/03/19 13:30 05/03/19 13:30 05/03/19 13:30 05/03/19 13:30 Oxygen Delivery Method Room Air Weight: 148 lb 5.938 oz Body Mass Index (BMI) 23.2 Intake and Output for Last 24 Hours 05/01/19 05/02/19 05/03/19 23:59 23:59 23:59 Intake Total 3526.0 / 3626.0 700 / 1236.75 902.25 / 902.25 Output Total 900 / 1000 800 / 1200 1100 / 1100 Balance 2626.0 / 2626.0 -100 / 36.75 -197.75 / -197.75 General: Alert, Oriented x3, Cooperative HEENT: Atraumatic Oral: Moist Mucosa Lungs: Normal air movement Cardiovascular: Regular rate Extremities: Capillary Refill Less than 3 Seconds, Edema, Peripheral Pulses Normal Skin: Ulcer/ Wound - right medial and right lateral distal leg/ankle Musculoskeletal: Tenderness Neurological: Neuro grossly intact Psych/Mental Status: Normal Affect, Appropriate Microbiology Past 72 Hours 04/30/19 17:30 Tissue - Aerobic & Anaerobic Swabs Gram Stain - Final 04/30/19 17:30 Tissue - Aerobic & Anaerobic Swabs Wound Culture - Final No growth aerobically. 04/30/19 17:30 Tissue - Aerobic & Anaerobic Swabs Anaerobic Culture - Preliminary No growth in 48 hours. 04/30/19 17:30 Tissue - Aerobic & Anaerobic Swabs Gram Stain - Final 04/30/19 17:30 Tissue - Aerobic & Anaerobic Swabs Wound Culture - Final Enterobacter cloacae complex 04/30/19 17:30 Tissue - Aerobic & Anaerobic Swabs Anaerobic Culture - Preliminary No anaerobic bacteria isolated. Current Medications Acetaminophen (Tylenol) 1,000 mg PO Q8 [facility] Last Admin: 05/03/19 06:09 Dose: Not Given Documented by: Hydrocodone Bitart/Acetaminophen ([place] 5mg-325mg) 1 tablet PO Q4H PRN PRN PRN Reason: Pain 1-10/10 or Fever Al Hydroxide/Mg Hydroxide (Mylanta Ii) 15 ml PO Q4H PRN PRN PRN Reason: heart burn/dyspepdia Aspirin (Aspirin, Baby) 81 mg PO BIDCM [facility] Last Admin: 05/03/19 07:54 Dose: Not Given Documented by: Enoxaparin Sodium (Lovenox) 40 mg SC DAILY [facility] Last Admin: 05/03/19 10:11 Dose: Not Given Documented by: Famotidine (Pepcid) 20 mg PO BID [facility] Last Admin: 05/03/19 10:12 Dose: 20 mg Documented by: Hydromorphone HCl (Dilaudid Inj) 1 mg IV Q2H PRN PRN PRN Reason: Pain Score 6-10 Last Admin: 05/03/19 11:36 Dose: 1 mg Documented by: Sodium Chloride () 250 mls @ 15 mls/hr IV .[id number] PRN PRN Reason: Saline Flush Last Infusion: 05/03/19 11:00 Dose: 0 mls/hr Documented by: Cefepime HCl 2 gm/ Sodium (Chloride) 100 mls @ 200 mls/hr IV Q8 [facility] Last Infusion: 05/03/19 06:38 Dose: Infused Documented by: Lorazepam (Ativan) 0.5 mg PO Q8H PRN PRN PRN Reason: ANXIETY Metoclopramide HCl (Metoclopramide Hcl) 5 mg PO TIDAC [facility] Last Admin: 05/03/19 10:12 Dose: 5 mg Documented by: Miconazole Nitrate (Monistat 7) 1 applic VAGINAL QHS [facility] Stop: 05/07/19 22:01 Last Admin: 05/02/19 21:00 Dose: Not Given Documented by: Nutritional Formula (Lactose Free) (Ensure Enlive) 120 ml PO 4X/DAY [facility] Last Admin: 05/03/19 10:10 Dose: 120 ml Documented by: Ondansetron HCl (Zofran) 4 mg IV Q8H PRN PRN PRN Reason: Nausea Last Admin: 05/01/19 22:07 Dose: 4 mg Documented by: Polyethylene Glycol (Miralax) 17 gm PO DAILY [facility] Last Admin: 05/03/19 10:06 Dose: Not Given Documented by: Scopolamine HBr (Transderm-Scop) 1 patch TD Q3D [facility] Last Admin: 05/03/19 07:56 Dose: 1 patch Documented by: Senna/Docusate Sodium (Senokot-S, Dawn-Colace) 2 tablet PO BID PRN PRN Reason: Constipation Last Admin: 05/01/19 06:16 Dose: 2 tablet Documented by: Sodium Chloride () 10 - 40 ml IV UD PRN PRN Reason: SALINE FLUSH Last Admin: 05/03/19 11:37 Dose: 10 ml Documented by: Medical Necessity - Tobacco Use Smoking Status: Never smoker Tobacco Use: Non-smoker Assessment/Plan All Active Problems Status post open reduction and internal fixation (ORIF) of fracture (Acute) Open wound of left lower leg with complication (Acute) Exposed orthopaedic hardware (Acute) Osteomyelitis (Acute) Full-thickness skin dehiscence (Acute) Infection of skin and subcutaneous tissue (Acute) Fracture of tibial shaft, left, closed (Acute) Left fibular fracture (Acute) Patient is post op day #2 from 1. Debridement of nonviable tissue of the left medial and lateral ankle wounds down to including level of tendon, muscle, f ascia. 2. washout of left medial and lateral ankle wounds. 3. application of synthetic skin substitute to left medial and lateral ankle wounds. #4 application of wound VAC to wound of left medial and lateral ankle wounds Observed wound VAC dressing change Both medial and lateral wounds have synthetic skin substitute (Integra bilayer graft) is intact with renaldo Periwound intact with no rash She will follow up with me on Monday at [facility] for a VAC change.
== END 2019-05-03 14:11 | disposition home or self-care (01) | DRG 857 ==
PROVIDERS: Podiatrist Foot & Ankle Surgery; Admitting Provider Specialist; Visit Provider Internal Medicine
PROC: 0QDH0ZZ Extraction of Left Tibia, Open Approach (ICD-10-PCS; principal; 2019-04-27 09:45)
PROC: 0QBH0ZX Excision of Left Tibia, Open Approach, Diagnostic (ICD-10-PCS; principal; 2019-04-30 14:15)
DX: T81.49XA Infection following a procedure, other surgical site, initial encounter (principal); T81.31XA Disruption of external operation (surgical) wound, not elsewhere classified, initial encounter; L03.116 Cellulitis of left lower limb; M86.9 Osteomyelitis, unspecified; L08.9 Local infection of the skin and subcutaneous tissue, unspecified
CPT/HCPCS: 36415; 80048; 80202; 84703; 85025; 85652; 86140; 87015; 87070; 87075; 87077; 87102; 87116; 87176; 87186; 87205; 87206; 88305; 88307; 88311; 97162; 97166; 97530; 99251; J7040; J7050; J7120; A4216; G0463; J2405

== ENCOUNTER 2019-05-06 08:09 | Outpatient (RCR) | payer OTHER, SELFPAY ==
[2019-05-06 08:08] VITALS: BMI 23.3
[2019-05-06 08:58] VITALS: BP 135/74; PULSE 95; RESP 18; TEMP 37.7; BMI 23.5
--- NOTE | 2019-05-06 14:11 | PCM.WC.HP ---
(1) Open wound of left lower leg with complication Status: Chronic Current Visit: Yes Code(s): S81.802A - Unspecified open wound, left lower leg, initial encounter Comment: infection and exposed hardware from ORIF procedure (2) Exposed orthopaedic hardware Status: Acute Current Visit: Yes Code(s): T84.498A - Other mechanical complication of other internal orthopedic devices, implants and grafts, initial encounter (3) Status post open reduction and internal fixation (ORIF) of fracture Status: Acute Current Visit: Yes Code(s): Z98.890 - Other specified postprocedural states; Z87.81 - Personal history of (healed) traumatic fracture (4) Osteomyelitis Status: Acute Current Visit: Yes Code(s): M86.9 - Osteomyelitis, unspecified (5) Infection of skin and subcutaneous tissue Status: Acute Current Visit: Yes Code(s): L08.9 - Local infection of the skin and subcutaneous tissue, unspecified History of Present Illness Date of Service: 05/06/19 Chief Complaint: Right medial and lateral distal leg/ankle opened wounds after surgery. History of Wound: Patient suffered a left tibia and fibula fracture on 03/31/19 while ice skating that required an ORIF of the tibia and fibula fractures on 04/11/19. At post op visit 04/23/19 there was mild erythema of the incisions and she was placed on antibiotics. Follow up visit 04/26/19 increased erythema with purulent drainage where she was admitted. On 04/27/19 Dr. Khan performed an incision and drainage of the medial and lateral ankle wounds with debridement, washout, wound culture and application of wound VAC. On 04/30/19 she was taken back to surgery for a second debridement, washout culture, graft application and wound VAC placement. Dr. Dave was consulted for antibiotic management. Wound cultures of both left lateral and medial ankle from 04/27/19 postive for Enterobacter cloacae complex. Wound culture of left medial leg wound from 04/30/19 positive for Enterobacter cloacae complex. Wound culture from left lateral wound on 04/30/19 positive for Gram negative rods. She was discharged home on 05/03/19. Today she presents for wound VAC change. Past Medical History Past Medical History: Chronic Problems Open wound of left lower leg with complication (Chronic) infection and exposed hardware from ORIF procedure Surgical History: - - ORIF left tibia and fibula 04/11/19, I&D with washout of left ankle 04/27/19 and 04/30/19 Allergies/Adverse Reactions: Allergies No Known Allergies Allergy (Verified 04/11/19 09:54) Home Medications: Ambulatory Orders Medication Instructions Recorded Lorazepam [Ativan] 0.5 mg PO Q8H PRN PRN 03/31/19 Hydrocodone/Acetaminophen [Cataldo 1 ea PO Q4H PRN PRN 04/05/19 5-325 Tablet] Smz/Tmp Ds [Bactrim Ds] 1 tab PO BID 40 Days #80 tab 05/02/19 Ondansetron [Zofran Odt] 4 mg PO Q8H PRN PRN #30 tab 05/03/19 Smoking Status: Never smoker Review of Systems Constitutional: Denies: Chills, Fever, Weight Change Eyes: Denies: Pain, Vision Change HEENT: Denies: Difficulty Hearing, Difficulty Swallowing, Sinus Congestion Cardiovascular: Denies: Chest Pain, Palpitations Respiratory: Denies: Cough, Shortness of Breath Gastrointestinal: Denies: Diarrhea, Nausea, Vomiting Musculoskeletal: Reports: Leg Pain - left ankle medial and lateral opened wounds after I&D and washout Skin: Reports: Wounds - left medial and lateral distal leg/ankle Neurological: Denies: Blurred vision, Double vision Psychiatric: Denies: Anxiety, Depression Endocrine: Denies: Heat/ Cold Intolerance, Polydipsia, Polyuria - Physical Exam Vital Signs Temp Pulse Resp BP 99.8 F H 95 18 135/74 H 05/06/19 08:58 05/06/19 08:58 05/06/19 08:58 05/06/19 08:58 General: Alert, Oriented x3, Cooperative HEENT: Atraumatic Oral: Moist Mucosa Lungs: Clear to auscultation, Normal air movement Cardiovascular: Regular rate, Regular Rhythm Abdomen: Bowel Sounds Present, Soft, Non Tender Extremities: Capillary Refill Less than 3 Seconds, Edema - left leg, ankle and foot, Peripheral Pulses Normal, Tenderness Skin: Ulcer/ Wound - left medial and lateral lower leg Wound Measurements and Assessment WC - Nurse 1 - General Ulcer Measurement Start: 05/06/19 08:27 Freq: Status: Active Protocol: Activity Type Activity Date Activity User E-Sign Co-Sign Detail Recorded Client Recorded Date Recorded By Document 05/06/19 08:58 ARNOLD [id number] 05/06/19 09:06 DV 05/06/19 08:58 Wound Center Nurse 1 [Ulcer Assessment] #2 Left Medial Ankle -Combined with other wound No -Current Size (cm) - Length 11.5 -Current Size (cm) - Width 6.0 -Current Size (cm) - Depth 1.5 -Total Square Cm 69.00 -Date of Last Picture (Recall this 05/06/19 field) -Photo Taken Yes -Epithelialization None Present -Tunneling No -Undermining/Tunneling No -Circular Undermining No -Exudate Amt Large -Exudate Type Sanguineous -Wound Margin Indistinct, Non -Visible -Granulation Amt None Present (0 %) -Granulation Quality N/A -Texture (Dawn-wound Skin Appearance) Assessed, Localized Edema -Moisture (Dawn-wound Skin Appearance Assessed, ) Weeping -Color (Dawn-wound Skin Appearance) Assessed, Erythema -Temperature (Dawn-wound Skin No Abnormality Appearance) (Pt Warm) -Tenderness on Palpation (Dawn-wound No Skin Appearance) -Foul Odor after Cleansing No #1 Left Lateral Ankle -Combined with other wound No -Current Size (cm) - Length 11.5 -Current Size (cm) - Width 4.5 -Current Size (cm) - Depth 1.0 -Total Square Cm 51.75 -Date of Last Picture (Recall this 05/06/19 field) -Photo Taken Yes -Epithelialization None Present -Tunneling No -Undermining/Tunneling No -Circular Undermining No -Exudate Amt Large -Exudate Type Sanguineous -Wound Margin Indistinct, Non -Visible -Granulation Amt None Present (0 %) -Texture (Dawn-wound Skin Appearance) Assessed, Localized Edema ,Scarring -Moisture (Dawn-wound Skin Appearance Assessed, ) Weeping -Color (Dawn-wound Skin Appearance) Assessed, Erythema -Temperature (Dawn-wound Skin No Abnormality Appearance) (Pt Warm) WC - Nurse 2 - General Ulcer CM Notes Start: 05/06/19 08:27 Freq: Status: Active Protocol: Activity Type Activity Date Activity User E-Sign Co-Sign Detail Recorded Client Recorded Date Recorded By Document 05/06/19 09:35 CESARIO [id number] 05/06/19 09:36 CESARIO 05/06/19 09:35 Wound Center Nurse 2 [Procedure/Treatment] #2 Left Medial Ankle -Correct Patient No -Correct Side, Site, Position No -Correct Procedure No -Procedure Performed No -Wound/Ulcer Outcome Not Healed #1 Left Lateral Ankle -Correct Patient No -Correct Side, Site, Position No -Correct Procedure No -Procedure Performed No -Wound/Ulcer Outcome Not Healed [See Physician Procedure note for Specifics] Pain Scale: 0-10 Numeric [Pain] -Is Patient Pain Free? Yes Musculoskeletal: No Muscle Wasting Neurological: Neuro grossly intact Psych/Mental Status: Normal Affect, Appropriate Debridement Note Post-Debridement Measurements/Treatment WC - Nurse 2 - General Ulcer CM Notes Start: 05/06/19 08:27 Freq: Status: Active Protocol: Activity Type Activity Date Activity User E-Sign Co-Sign Detail Recorded Client Recorded Date Recorded By Document 05/06/19 09:35 CESARIO [id number] 05/06/19 09:36 CESARIO 05/06/19 09:35 Wound Center Nurse 2 #2 Left Medial Ankle -Correct Patient No -Correct Side, Site, Position No -Correct Procedure No -Procedure Performed No -Wound/Ulcer Outcome Not Healed #1 Left Lateral Ankle -Correct Patient No -Correct Side, Site, Position No -Correct Procedure No -Procedure Performed No -Wound/Ulcer Outcome Not Healed Pain Scale: 0-10 Numeric Is Patient Pain Free? Yes No debridement was completed today Assessment/Plan Active Problems Status post open reduction and internal fixation (ORIF) of fracture (Acute) Open wound of left lower leg with complication (Chronic) infection and exposed hardware from ORIF procedure Exposed orthopaedic hardware (Acute) Osteomyelitis (Acute) Infection of skin and subcutaneous tissue (Acute) Assessment: 1. Status post open reduction and internal fixation (ORIF) of fracture. 2. Open wound of left lower leg with complication infection and exposed hardware from ORIF procedure. 3. Exposed orthopaedic hardware. 4. Osteomyelitis. 5. Infection of skin and subcutaneous tissue Plan: Patient was seen and evaluated in the wound center today. Will continue the wound VAC at 150 mmHg to the left medial and lateral lower leg/ankle opened areas. KAROL wrap for compression. Will order home health to assist with wound VAC changes. Will plan on wound VAC changes on Monday and with being done by home health. Patient will continue antibiotics as presribed by ID. Follow up in one week. Code Visit Office Visits / Consults: [phone] OV L3 Est
== END 2019-05-11 23:59 ==
LOC: WC 08:09
PROVIDERS: Visit Provider Nurse Practitioner Family
DX: T84.498A Other mechanical complication of other internal orthopedic devices, implants and grafts, initial encounter (principal); S82.202S Unspecified fracture of shaft of left tibia, sequela; S82.402S Unspecified fracture of shaft of left fibula, sequela; V00.21 Ice-skates accident; L08.9 Local infection of the skin and subcutaneous tissue, unspecified
CPT/HCPCS: 97606; 99213; G0463

== ENCOUNTER 2019-06-10 08:00 | Outpatient (RCR) | payer OTHER, SELFPAY ==
[2019-05-12 01:21] VITALS: BP 135/74; PULSE 95; RESP 18; TEMP 37.7
[2019-05-13 08:28] VITALS: BP 113/90; PULSE 103; RESP 20; TEMP 37; BMI 23.5
--- NOTE | 2019-05-13 13:32 | PCM.WC.PN ---
(1) Open wound of left lower leg with complication Status: Chronic Current Visit: Yes Code(s): S81.802A - Unspecified open wound, left lower leg, initial encounter Comment: infection and exposed hardware from ORIF procedure (2) Infection of skin and subcutaneous tissue Status: Chronic Current Visit: Yes Code(s): L08.9 - Local infection of the skin and subcutaneous tissue, unspecified (3) Exposed orthopaedic hardware Status: Chronic Current Visit: Yes Code(s): T84.498A - Other mechanical complication of other internal orthopedic devices, implants and grafts, initial encounter (4) Osteomyelitis Status: Chronic Current Visit: Yes Code(s): M86.9 - Osteomyelitis, unspecified (5) Status post open reduction and internal fixation (ORIF) of fracture Status: Chronic Current Visit: Yes Code(s): Z98.890 - Other specified postprocedural states; Z87.81 - Personal history of (healed) traumatic fracture Type of Wound Date of Service: 05/13/19 Chief Complaint: Right medial and lateral distal leg/ankle opened wounds after surgery. History of Wound: Patient suffered a left tibia and fibula fracture on 03/31/19 while ice skating that required an ORIF of the tibia and fibula fractures on 04/11/19. At post op visit 04/23/19 there was mild erythema of the incisions and she was placed on antibiotics. Follow up visit 04/26/19 increased erythema with purulent drainage where she was admitted. On 04/27/19 Dr. Khan performed an incision and drainage of the medial and lateral ankle wounds with debridement, washout, wound culture and application of wound VAC. On 04/30/19 she was taken back to surgery for a second debridement, washout culture, graft application and wound VAC placement. Dr. Dave was consulted for antibiotic management. Wound cultures of both left lateral and medial ankle from 04/27/19 postive for Enterobacter cloacae complex. Wound culture of left medial leg wound from 04/30/19 positive for Enterobacter cloacae complex. Wound culture from left lateral wound on 04/30/19 positive for Gram negative rods. She was discharged home on 05/03/19. Today she presents for wound VAC change. Progress of Wound: Stable - Physical Exam Vital Signs Temp Pulse Resp BP 98.6 F 103 H 20 H 113/90 H 05/13/19 08:28 12 08:28 12 08:28 05/13/19 08:28 General: Alert, Oriented x3, Cooperative HEENT: Atraumatic Oral: Moist Mucosa Lungs: Normal air movement Cardiovascular: Regular rate Abdomen: Soft Extremities: Capillary Refill Less than 3 Seconds, Diminished Peripheral Pulses, Edema Skin: Ulcer/ Wound - Right medial and right lateral open wounds. Wound Measurements and Assessment WC - Nurse 1 - General Ulcer Measurement Start: 05/13/19 08:28 Freq: Status: Active Protocol: Activity Type Activity Date Activity User E-Sign Co-Sign Detail Recorded Client Recorded Date Recorded By Document 05/13/19 08:28 DL [id number] 05/13/19 08:41 DL 05/13/19 08:28 Wound Center Nurse 1 [Ulcer Assessment] #2 Left Medial Ankle -Current Size (cm) - Length 11.2 -Current Size (cm) - Width 4.8 -Current Size (cm) - Depth 1.1 -Total Square Cm 53.76 -Photo Taken No -Exudate Amt Small -Exudate Type Serosanguineous -Wound Margin Distinct, Outline Attached -Granulation Amt Large (67-100%) -Granulation Quality Red -Necrosis Amt Small (1-33%) -Necrotic Tissue Type Adherent Slough -Structure Exposed N/A -Texture (Dawn-wound Skin Appearance) Scarring -Moisture (Dawn-wound Skin Appearance No Abnormality ) -Color (Dawn-wound Skin Appearance) No Abnormality -Temperature (Dawn-wound Skin No Abnormality Appearance) (Pt Warm) -Tenderness on Palpation (Dawn-wound No Skin Appearance) -Ulcer Cleansing wound cleanser leg only -Foul Odor after Cleansing No #1 Left Lateral Ankle -Current Size (cm) - Length 9.8 -Current Size (cm) - Width 3.8 -Current Size (cm) - Depth 1 -Total Square Cm 37.24 -Photo Taken No -Exudate Amt Small -Exudate Type Serosanguineous -Wound Margin Distinct, Outline Attached -Granulation Amt Medium (34-66%) -Granulation Quality Red -Necrosis Amt Medium (34-66%) -Necrotic Tissue Type Adherent Slough -Structure Exposed N/A -Texture (Dawn-wound Skin Appearance) Scarring -Moisture (Dawn-wound Skin Appearance No Abnormality, ) Assessed -Temperature (Dawn-wound Skin No Abnormality Appearance) (Pt Warm) -Tenderness on Palpation (Dawn-wound No Skin Appearance) -Ulcer Cleansing Wound Cleanser leg only -Foul Odor after Cleansing No [Edema Assessment] -Left Calf (cm) 29.6 -Left Ankle (cm) 22.8 WC - Nurse 2 - General Ulcer CM Notes Start: 05/13/19 08:28 Freq: Status: Active Protocol: Activity Type Activity Date Activity User E-Sign Co-Sign Detail Recorded Client Recorded Date Recorded By Document 05/13/19 09:03 [id number] 05/13/19 09:04 05/13/19 09:03 Wound Center Nurse 2 [Procedure/Treatment] #2 Left Medial Ankle -Correct Patient No -Correct Side, Site, Position No -Correct Procedure No -Procedure Performed No -Wound/Ulcer Outcome Not Healed #1 Left Lateral Ankle -Correct Patient No -Correct Side, Site, Position No -Correct Procedure No -Procedure Performed No -Wound/Ulcer Outcome Not Healed [See Physician Procedure note for Specifics] Pain Scale: 0-10 Numeric [Pain] -Is Patient Pain Free? Yes Musculoskeletal: No Muscle Wasting - Able to wiggle her toes. Neurological: Neuro grossly intact Psych/Mental Status: Normal Affect, Appropriate Debridement Note Post-Debridement Measurements/Treatment CARLA - Nurse 2 - General Ulcer CM Notes Start: 05/13/19 08:28 Freq: Status: Active Protocol: Activity Type Activity Date Activity User E-Sign Co-Sign Detail Recorded Client Recorded Date Recorded By Document 05/13/19 09:03 [email or web address] [id number] 05/13/19 09:04 05/13/19 09:03 Wound Center Nurse 2 #2 Left Medial Ankle -Correct Patient No -Correct Side, Site, Position No -Correct Procedure No -Procedure Performed No -Wound/Ulcer Outcome Not Healed #1 Left Lateral Ankle -Correct Patient No -Correct Side, Site, Position No -Correct Procedure No -Procedure Performed No -Wound/Ulcer Outcome Not Healed Pain Scale: 0-10 Numeric Is Patient Pain Free? Yes No debridement was completed today Assessment/Plan Active Problems Status post open reduction and internal fixation (ORIF) of fracture (Chronic) Open wound of left lower leg with complication (Chronic) infection and exposed hardware from ORIF procedure 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 Status post open reduction and internal fixation (ORIF) of fracture. 2. Open wound of left lower leg with complication infection and exposed hardware from ORIF procedure. 3. Exposed orthopaedic hardware. 4. Osteomyelitis. 5. Infection of skin and subcutaneous tissue Plan: Patient was seen and evaluated in the wound center today. Will continue the wound VAC at 150 mmHg to the left medial and lateral lower leg/ankle opened areas. Integra product intact both medially and laterally with renaldo intact. KAROL wrap for compression. Her insurance does not cover home health for the wound VAC changes. Will plan on wound VAC changes on Monday and with here at the wound center. Patient will continue antibiotics as presribed by ID. Follow up in one week. Code Visit Office Visits / Consults: [phone] OV L3 Est
[2019-05-16 15:22] VITALS: BP 123/82; PULSE 107; RESP 18; TEMP 37.3; BMI 23.5
--- NOTE | 2019-05-20 14:42 | PCM.WC.PN ---
(1) Open wound of left lower leg with complication Status: Chronic Current Visit: Yes Code(s): S81.802A - Unspecified open wound, left lower leg, initial encounter Comment: infection and exposed hardware from ORIF procedure (2) Infection of skin and subcutaneous tissue Status: Chronic Current Visit: Yes Code(s): L08.9 - Local infection of the skin and subcutaneous tissue, unspecified (3) Exposed orthopaedic hardware Status: Chronic Current Visit: Yes Code(s): T84.498A - Other mechanical complication of other internal orthopedic devices, implants and grafts, initial encounter (4) Osteomyelitis Status: Chronic Current Visit: Yes Code(s): M86.9 - Osteomyelitis, unspecified (5) Status post open reduction and internal fixation (ORIF) of fracture Status: Chronic Current Visit: Yes Code(s): Z98.890 - Other specified postprocedural states; Z87.81 - Personal history of (healed) traumatic fracture Type of Wound Date of Service: 05/20/19 Chief Complaint: Right medial and lateral distal leg/ankle opened wounds after surgery. History of Wound: Patient suffered a left tibia and fibula fracture on 03/31/19 while ice skating that required an ORIF of the tibia and fibula fractures on 04/11/19. At post op visit 04/23/19 there was mild erythema of the incisions and she was placed on antibiotics. Follow up visit 04/26/19 increased erythema with purulent drainage where she was admitted. On 04/27/19 Dr. Khan performed an incision and drainage of the medial and lateral ankle wounds with debridement, washout, wound culture and application of wound VAC. On 04/30/19 she was taken back to surgery for a second debridement, washout culture, graft application and wound VAC placement. Dr. Dave was consulted for antibiotic management. Wound cultures of both left lateral and medial ankle from 04/27/19 postive for Enterobacter cloacae complex. Wound culture of left medial leg wound from 04/30/19 positive for Enterobacter cloacae complex. Wound culture from left lateral wound on 04/30/19 positive for Gram negative rods. She was discharged home on 05/03/19. Today she presents without her wound VAC. Wound care will be daily silver dressing changes until her wound VAC can be placed by home health on Monday. Today she denies fever, nausea. She would like her ulcer to be surgically closed buth her HgA1C was last 9. Progress of Wound: Stable - Physical Exam Vital Signs Temp Pulse Resp BP 99.1 F 107 H 18 123/82 H 05/16/19 15:22 05/16/19 15:22 05/16/19 15:22 05/16/19 15:22 General: Alert, Oriented x3, Cooperative HEENT: Atraumatic Oral: Moist Mucosa Neck: Supple Lungs: Normal air movement Cardiovascular: Regular rate Extremities: Capillary Refill Less than 3 Seconds, Edema, Peripheral Pulses Normal Skin: Ulcer/ Wound - Right medial and right lateral ankle. Wound Measurements and Assessment WC - Nurse 2 - General Ulcer CM Notes Start: 05/13/19 08:28 Freq: Status: Active Protocol: Activity Type Activity Date Activity User E-Sign Co-Sign Detail Recorded Client Recorded Date Recorded By Document 05/20/19 09:13 CESARIO [id number] 05/20/19 09:14 CESARIO 05/20/19 09:13 Wound Center Nurse 2 [Procedure/Treatment] #2 Left Medial Ankle -Correct Patient No -Correct Side, Site, Position No -Correct Procedure No -Procedure Performed No -Post Debridement Size (cm) - Length 11.2 -Post Debridement Size (cm) - Width 4 -Post Debridement Size (cm) - Depth 1.0 -Total Square Cm 44.8 -Wound/Ulcer Outcome Not Healed #1 Left Lateral Ankle -Correct Patient No -Correct Side, Site, Position No -Correct Procedure No -Procedure Performed No -Post Debridement Size (cm) - Length 10.5 -Post Debridement Size (cm) - Width 3.5 -Post Debridement Size (cm) - Depth 0.7 -Total Square Cm 36.75 -Wound/Ulcer Outcome Not Healed -Ulcer Cleansing Rinsed/ Irrigated with Saline -Foul Odor after Cleansing No -Bioengineered Tissue No -Bleeding Controlled with NA -Offloading No -Treatment Response Procedure Tolerated Well [See Physician Procedure note for Specifics] Pain Scale: 0-10 Numeric [Pain] -Is Patient Pain Free? Yes Musculoskeletal: No Muscle Wasting Neurological: Neuro grossly intact Psych/Mental Status: Normal Affect, Appropriate Debridement Note Post-Debridement Measurements/Treatment WC - Nurse 2 - General Ulcer CM Notes Start: 05/13/19 08:28 Freq: Status: Active Protocol: Activity Type Activity Date Activity User E-Sign Co-Sign Detail Recorded Client Recorded Date Recorded By Document 05/13/19 09:03 CESARIO [id number] 05/13/19 09:04 Document 05/20/19 09:13 CESARIO [id number] 05/20/19 09:14 05/13/19 05/20/19 09:03 09:13 Wound Center Nurse 2 #2 Left Medial Ankle -Correct Patient No No -Correct Side, Site, Position No No -Correct Procedure No No -Procedure Performed No No -Post Debridement Size (cm) - Length 11.2 -Post Debridement Size (cm) - Width 4 -Post Debridement Size (cm) - Depth 1.0 -Total Square Cm 44.8 -Wound/Ulcer Outcome Not Healed Not Healed #1 Left Lateral Ankle -Correct Patient No No -Correct Side, Site, Position No No -Correct Procedure No No -Procedure Performed No No -Post Debridement Size (cm) - Length 10.5 -Post Debridement Size (cm) - Width 3.5 -Post Debridement Size (cm) - Depth 0.7 -Total Square Cm 36.75 -Wound/Ulcer Outcome Not Healed Not Healed -Ulcer Cleansing Rinsed/ Irrigated with Saline -Foul Odor after Cleansing No -Bioengineered Tissue No -Bleeding Controlled with NA -Offloading No -Treatment Response Procedure Tolerated Well Pain Scale: 0-10 Numeric Is Patient Pain Free? Yes Yes No debridement was completed today Assessment/Plan Active Problems Status post open reduction and internal fixation (ORIF) of fracture (Chronic) Open wound of left lower leg with complication (Chronic) infection and exposed hardware from ORIF procedure 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 Status post open reduction and internal fixation (ORIF) of fracture. 2. Open wound of left lower leg with complication infection and exposed hardware from ORIF procedure. 3. Exposed orthopaedic hardware. 4. Osteomyelitis. 5. Infection of skin and subcutaneous tissue Plan: Patient was seen and evaluated in the wound center today. Will continue the wound VAC at 150 mmHg to the left medial and lateral lower leg/ankle opened areas, cover exposed hardware with adaptic. Integra product and renaldo removed today. Continue KAROL wrap for compression. Her insurance does not cover home health for the wound VAC changes. Will plan on wound VAC changes on Monday and with here at the wound center as a nurse visit. Patient will continue antibiotics as presribed by ID. Follow up in one week. Code Visit Office Visits / Consults: [phone] OV L3 Est
[2019-05-23 10:07] VITALS: BP 121/83; PULSE 89; RESP 18; TEMP 36.9; BMI 23.5
[2019-05-27 08:15] VITALS: BP 144/88; PULSE 112; RESP 18; TEMP 36.6; BMI 23.5
--- NOTE | 2019-05-27 17:47 | PCM.WC.PN ---
Type of Wound Date of Service: 05/27/19 Chief Complaint: Nonhealing infected ulcer left lateral lower leg by the ankle with exposed hardware from ORIF procedure and nonhealing infected ulcer left medial lower leg by the ankle with exposed hardware from ORIF procedure. History of Wound: Patient suffered a left tibia and fibula fracture on 03/31/19 while ice skating that required an ORIF of the tibia and fibula fractures on 04/11/19. Postoperatively she developed an infection in the incision with redness and drainage. This necessitated admission to the hospital on 04/26/19 and IV antibiotics started. On 04/27/19 Dr. Khan performed an incision and drainage of the medial and lateral ankle wounds with debridement, washout, wound culture and application of wound VAC. On 04/30/19 she was taken back to surgery for a second debridement, washout culture, application of Integra bilayered skin substitute graft and wound VAC placement by Dr Hairston. Wound cultures showed Enterobacter cloacae and was placed on Cefepime. At discharge, she was placed on Bactrim. She had trouble with Bactrim and it was changed to Cipro. . She is tolerating the VAC. Today she denies fever. Her appetite is good. Progress of Wound: Improved. - Physical Exam Vital Signs Temp Pulse Resp BP 98 F 112 H 18 144/88 H 05/27/19 08:15 05/27/19 08:15 05/27/19 08:15 05/27/19 08:15 Wound Measurements and Assessment WC - Nurse 1 - General Ulcer Measurement Start: 05/13/19 08:28 Freq: Status: Active Protocol: Activity Type Activity Date Activity User E-Sign Co-Sign Detail Recorded Client Recorded Date Recorded By Document 05/27/19 08:15 DL [id number] 05/27/19 08:26 DL 05/27/19 08:15 Wound Center Nurse 1 [Ulcer Assessment] #2 Left Medial Ankle -Current Size (cm) - Length 10.6 -Current Size (cm) - Width 4 -Current Size (cm) - Depth 0.6 -Total Square Cm 42.4 -Photo Taken No -Exudate Amt Medium -Exudate Type Serosanguineous -Wound Margin Distinct, Outline Attached -Granulation Amt Large (67-100%) -Granulation Quality Red -Necrosis Amt Small (1-33%) -Necrotic Tissue Type Adherent Slough -Structure Exposed N/A -Texture (Dawn-wound Skin Appearance) Scarring -Moisture (Dawn-wound Skin Appearance No Abnormality ) -Color (Dawn-wound Skin Appearance) No Abnormality -Temperature (Dawn-wound Skin No Abnormality Appearance) (Pt Warm) -Tenderness on Palpation (Dawn-wound No Skin Appearance) -Ulcer Cleansing Wound Cleanser -Anesthetic Used 4% Lidocaine Solution #1 Left Lateral Ankle -Current Size (cm) - Length 9 -Current Size (cm) - Width 3.8 -Current Size (cm) - Depth 0.6 -Total Square Cm 34.2 -Photo Taken No -Exudate Amt Medium -Exudate Type Serosanguineous -Wound Margin Distinct, Outline Attached -Granulation Amt Large (67-100%) -Granulation Quality Red -Necrosis Amt Small (1-33%) -Necrotic Tissue Type Adherent Slough -Structure Exposed N/A -Texture (Dawn-wound Skin Appearance) Scarring -Moisture (Dawn-wound Skin Appearance No Abnormality ) -Color (Dawn-wound Skin Appearance) No Abnormality -Temperature (Dawn-wound Skin No Abnormality Appearance) (Pt Warm) -Tenderness on Palpation (Dawn-wound No Skin Appearance) -Ulcer Cleansing Wound Cleanser -Foul Odor after Cleansing No -Anesthetic Used 4% Lidocaine Solution [Edema Assessment] -Left Calf (cm) 29.5 -Left Ankle (cm) 23.5 WC - Nurse 2 - General Ulcer CM Notes Start: 05/13/19 08:28 Freq: Status: Active Protocol: Activity Type Activity Date Activity User E-Sign Co-Sign Detail Recorded Client Recorded Date Recorded By Document 05/27/19 08:43 [email or web address] [id number] 05/27/19 08:45 CESARIO 05/27/19 08:43 Wound Center Nurse 2 [Procedure/Treatment] #2 Left Medial Ankle -Time 08:44 -Correct Patient Yes -Correct Side, Site, Position Yes -Correct Procedure Yes -Procedure Performed Yes -Type of Procedure Debridement -Clinical Debridement Muscle -Post Debridement Size (cm) - Length 10.5 -Post Debridement Size (cm) - Width 4.4 -Post Debridement Size (cm) - Depth 0.7 -Total Square Cm 46.20 -Wound/Ulcer Outcome Not Healed -Ulcer Cleansing Rinsed/ Irrigated with Saline -Foul Odor after Cleansing No -Bioengineered Tissue No -Bleeding Controlled with Pressure -Offloading No -Treatment Response Procedure Tolerated Well #1 Left Lateral Ankle -Time 08:44 -Correct Patient Yes -Correct Side, Site, Position Yes -Correct Procedure Yes -Procedure Performed Yes -Type of Procedure Debridement -Clinical Debridement Muscle -Post Debridement Size (cm) - Length 9.8 -Post Debridement Size (cm) - Width 3.8 -Post Debridement Size (cm) - Depth 0.5 -Total Square Cm 37.24 -Wound/Ulcer Outcome Not Healed -Ulcer Cleansing Rinsed/ Irrigated with Saline -Foul Odor after Cleansing No -Bioengineered Tissue No -Bleeding Controlled with Pressure -Offloading No -Treatment Response Procedure Tolerated Well [See Physician Procedure note for Specifics] Pain Scale: 0-10 Numeric [Pain] -Is Patient Pain Free? Yes Debridement Note Post-Debridement Measurements/Treatment WC - Nurse 2 - General Ulcer CM Notes Start: 05/13/19 08:28 Freq: Status: Active Protocol: Activity Type Activity Date Activity User E-Sign Co-Sign Detail Recorded Client Recorded Date Recorded By Document 05/13/19 09:03 [email or web address] 05/13/19 09:04 Document 05/20/19 09:13 [id number] 05/20/19 09:14 Document 05/27/19 08:43 [id number] 05/27/19 08:45 05/13/19 05/20/19 05/27/19 09:03 09:13 08:43 Wound Center Nurse 2 #2 Left Medial Ankle -Time 08:44 -Correct Patient No No Yes -Correct Side, Site, Position No No Yes -Correct Procedure No No Yes -Procedure Performed No No Yes -Type of Procedure Debridement -Clinical Debridement Muscle -Post Debridement Size (cm) - Length 11.2 10.5 -Post Debridement Size (cm) - Width 4 4.4 -Post Debridement Size (cm) - Depth 1.0 0.7 -Total Square Cm 44.8 46.20 -Wound/Ulcer Outcome Not Healed Not Healed Not Healed -Ulcer Cleansing Rinsed/ Irrigated with Saline -Foul Odor after Cleansing No -Bioengineered Tissue No -Bleeding Controlled with Pressure -Offloading No -Treatment Response Procedure Tolerated Well #1 Left Lateral Ankle -Time 08:44 -Correct Patient No No Yes -Correct Side, Site, Position No No Yes -Correct Procedure No No Yes -Procedure Performed No No Yes -Type of Procedure Debridement -Clinical Debridement Muscle -Post Debridement Size (cm) - Length 10.5 9.8 -Post Debridement Size (cm) - Width 3.5 3.8 -Post Debridement Size (cm) - Depth 0.7 0.5 -Total Square Cm 36.75 37.24 -Wound/Ulcer Outcome Not Healed Not Healed Not Healed -Ulcer Cleansing Rinsed/ Rinsed/ Irrigated with Irrigated with Saline Saline -Foul Odor after Cleansing No No -Bioengineered Tissue No No -Bleeding Controlled with NA Pressure -Offloading No No -Treatment Response Procedure Procedure Tolerated Well Tolerated Well Pain Scale: 0-10 Numeric Is Patient Pain Free? Yes Yes Yes Wound debrided: #1 Left lateral lower leg by ankle. Laterality: Left Wound Grade/Stage: 4. Type of Debridement: Excisional debridement Anesthesia Used: 4% Lidocaine Solution Depth: Down to and including healthy tissue, in the subcutaneous layer, to muscle, to bone - bone exposed but not debrided. Percentage of wound debrided: 100 Instrument Used: 5mm curette Tissue Removed: subcutaneous tissue and muscle. Severity: Fat Layer Exposed - muscle exposed. bone is exposed but not debrided. Amount of bleeding with debridement: Mild Bleeding Controlled with: Pressure Patient tolerated procedure well - Additional Wound Wound debrided: #2 Left medial lower leg by ankle. Laterality: Left Wound Grade/Stage: 4. Type of Debridement: Excisional debridement Anesthesia Used: 4% Lidocaine Solution Depth: Down to and including healthy tissue, in the subcutaneous layer, to muscle, to bone - bone is exposed but not debrided. Percentage of wound debrided: 100 Instrument Used: 5mm curette Tissue Removed: subcutaneous tissue and muscle. Severity: Fat Layer Exposed - muscle exposed. bone is exposed but not debrided. 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 Nonhealing infected ulcer left lateral lower leg by the ankle with exposed hardware from ORIF procedure. 2. Nonhealing infected ulcer left medial lower leg by the ankle with exposed hardware from ORIF procedure. 3. Status post open reduction and internal fixation (ORIF) of left tibia-fibula fracture. 4. Exposed orthopaedic hardware. 5. Osteomyelitis. Plan: Ulcers continue to show healing with granulation. There is still exposed bone and hardware but much less. She is getting x-rays today by [facility] to monitor the healing of the tibia and fibula fractures. Operative cultures showed Enterobacter cloacae. She was treated with Cefepime in the hospital and then discharged on Bactrim. She had trouble with the Bactrim and it was stopped. She was then placed on Cipro. Continue the VAC with adaptic over the bone and hardware. Keep left leg elevated when sitting. Encourage nutritional supplementation with protein to help the healing process. The Silicone layer has been removed from the Integra bilayer skin substitute graft. With the amount of improvement of the healing of the ulcers, will schedule another operative debridement and partial ostectomy of the exposed tibia and fibula for osteomyelitis. This will be in preparation for placement of another Integra bilayer graft (top silicone layer and bottom layer involving collagen matrix and chondroitin 6-sulfate). The goal is to wait to see if the bones heal satisfactory in which case the hardware will then be removed. I will continue wound care with the VAC and continued Integra placement in preparation for an eventual skin graft. However if the bones do not heal, then the hardware will be removed and an external fixator placed. Partial ostectomy would be performed to evaluate for osteomyelitis. At this point, evaluation would need to be done at a tertiary center for a microvascular free tissue transfer. Possible bone graft or bone flap incorporated with the soft tissue free flap may be needed as well. Patient voices understanding. Will schedule the surgery after the holidays under general anesthesia with a surgical observation overnight stay at the hospital. Patient was informed of the risks and complications of the procedure including alternatives to surgery. These were discussed with her personally. She voices understanding and wishes to proceed. Followup one week. Code Visit [id number]: [id number] Katja musc/fascia 20 sq cm/< - ICD-10 - L97.926, L08.9, T84.498A, M86.9, S82.202A, S82.402A, Z98.890 Add On Codes: 71834 Katja manzano/michelle add-on - X 4 units ICD-10 - L97.926, L08.9, T84.498A, M86.9, S82.202A, S82.402A, Z98.890
[2019-05-30 14:30] VITALS: BP 136/90; PULSE 87; RESP 18; TEMP 36.6; BMI 23.5
[2019-06-03 08:09] VITALS: BP 125/81; PULSE 109; RESP 16; TEMP 36.6; BMI 23.5
[2019-06-03 09:05] VITALS: BMI 23.5
--- NOTE | 2019-06-03 15:41 | PN.PCM_ITS ---
(1) Open wound of left lower leg with complication Status: Chronic Current Visit: Yes Code(s): S81.802A - Unspecified open wound, left lower leg, initial encounter Comment: infection and exposed hardware from ORIF procedure (2) Infection of skin and subcutaneous tissue Status: Chronic Current Visit: Yes Code(s): L08.9 - Local infection of the skin and subcutaneous tissue, unspecified (3) Exposed orthopaedic hardware Status: Chronic Current Visit: Yes Code(s): T84.498A - Other mechanical complication of other internal orthopedic devices, implants and grafts, initial encounter (4) Osteomyelitis Status: Chronic Current Visit: Yes Code(s): M86.9 - Osteomyelitis, unspecified (5) Status post open reduction and internal fixation (ORIF) of fracture Status: Chronic Current Visit: Yes Code(s): Z98.890 - Other specified postprocedural states; Z87.81 - Personal history of (healed) traumatic fracture Type of Wound Date of Service: 06/03/19 Chief Complaint: Nonhealing infected ulcer left lateral lower leg by the ankle with exposed hardware from ORIF procedure and nonhealing infected ulcer left medial lower leg by the ankle with exposed hardware from ORIF procedure. History of Wound: Patient suffered a left tibia and fibula fracture on 03/31/19 while ice skating that required an ORIF of the tibia and fibula fractures on 04/11/19. Postoperatively she developed an infection in the incision with redness and drainage. This necessitated admission to the hospital on 04/26/19 and IV antibiotics started. On 04/27/19 Dr. Khan performed an incision and drainage of the medial and lateral ankle wounds with debridement, washout, wound culture and application of wound VAC. On 04/30/19 she was taken back to surgery for a second debridement, washout culture, application of Integra bilayered skin substitute graft and wound VAC placement by Dr Hairston. Wound cultures showed Enterobacter cloacae and was placed on Cefepime. At discharge, she was placed on Bactrim. She had trouble with Bactrim and it was changed to Cipro. . She is tolerating the VAC. Today she denies fever. Her appetite is good. Progress of Wound: Improved. - Physical Exam Vital Signs Temp Pulse Resp BP 97.8 F 109 H 16 125/81 H 06/03/19 08:09 06/03/19 08:09 06/03/19 08:09 06/03/19 08:09 General: Alert, Oriented x3, Cooperative HEENT: Atraumatic Oral: Moist Mucosa Lungs: Normal air movement Cardiovascular: Regular rate Extremities: Capillary Refill Less than 3 Seconds, Edema Skin: Ulcer/ Wound - Left medial and left lateral ankle Wound Measurements and Assessment WC - Nurse 1 - General Ulcer Measurement Start: 05/13/19 08:28 Freq: Status: Active Protocol: Activity Type Activity Date Activity User E-Sign Co-Sign Detail Recorded Client Recorded Date Recorded By Document 06/03/19 08:09 MW [id number] 06/03/19 08:24 MW 06/03/19 08:09 Wound Center Nurse 1 [Ulcer Assessment] #2 Left Medial Ankle -Combined with other wound No -Current Size (cm) - Length 9.5 -Current Size (cm) - Width 3.8 -Current Size (cm) - Depth 0.5 -Total Square Cm 36.10 -Photo Taken No -Epithelialization Small 1-33% -Tunneling No -Undermining/Tunneling No -Circular Undermining No -Exudate Amt Large -Exudate Type Sanguineous -Wound Margin Flat & Intact -Granulation Amt Large (67-100%) -Granulation Quality Red -Slough/Fibrin Yes -Necrosis Amt Small (1-33%) -Necrotic Tissue Type Adherent Slough -Structure Exposed N/A -Texture (Dawn-wound Skin Appearance) Assessed, Localized Edema -Moisture (Dawn-wound Skin Appearance No Abnormality, ) Assessed -Color (Dawn-wound Skin Appearance) No Abnormality, Assessed -Temperature (Dawn-wound Skin No Abnormality Appearance) (Pt Warm) -Tenderness on Palpation (Dawn-wound Yes Skin Appearance) -Ulcer Cleansing soap and water -Foul Odor after Cleansing No -Anesthetic Used 4% Lidocaine Solution #1 Left Lateral Ankle -Combined with other wound No -Current Size (cm) - Length 10.0 -Current Size (cm) - Width 4.0 -Current Size (cm) - Depth 0.6 -Total Square Cm 40.00 -Photo Taken No -Epithelialization None Present -Tunneling No -Undermining/Tunneling No -Circular Undermining No -Exudate Amt Large -Exudate Type Sanguineous -Wound Margin Flat & Intact -Granulation Amt Large (67-100%) -Granulation Quality Red -Slough/Fibrin Yes -Necrosis Amt Small (1-33%) -Necrotic Tissue Type Adherent Slough -Structure Exposed N/A -Texture (Dawn-wound Skin Appearance) Assessed, Localized Edema -Moisture (Dawn-wound Skin Appearance No Abnormality, ) Assessed -Color (Dawn-wound Skin Appearance) No Abnormality, Assessed -Temperature (Dawn-wound Skin No Abnormality Appearance) (Pt Warm) -Tenderness on Palpation (Dawn-wound No Skin Appearance) -Ulcer Cleansing soap and water -Foul Odor after Cleansing No [Edema Assessment] -Lower Limb Edema Present Yes -Left Calf (cm) 31.4 -Left Ankle (cm) 28.0 WC - Nurse 2 - General Ulcer CM Notes Start: 05/13/19 08:28 Freq: Status: Active Protocol: Activity Type Activity Date Activity User E-Sign Co-Sign Detail Recorded Client Recorded Date Recorded By Document 06/03/19 08:52 CESARIO [id number] 06/03/19 08:54 CESARIO 06/03/19 08:52 Wound Center Nurse 2 [Procedure/Treatment] #2 Left Medial Ankle -Time 08:53 -Correct Patient Yes -Correct Side, Site, Position Yes -Correct Procedure Yes -Procedure Performed Yes -Type of Procedure Debridement -Clinical Debridement Subcutaneous -Post Debridement Size (cm) - Length 10.3 -Post Debridement Size (cm) - Width 4 -Post Debridement Size (cm) - Depth 0.8 -Total Square Cm 41.2 -Wound/Ulcer Outcome Not Healed -Ulcer Cleansing Rinsed/ Irrigated with Saline -Foul Odor after Cleansing No -Bioengineered Tissue No -Bleeding Controlled with Pressure -Offloading No -Treatment Response Procedure Tolerated Well #1 Left Lateral Ankle -Time 08:53 -Correct Patient Yes -Correct Side, Site, Position Yes -Correct Procedure Yes -Procedure Performed Yes -Type of Procedure Debridement -Clinical Debridement Subcutaneous -Post Debridement Size (cm) - Length 10 -Post Debridement Size (cm) - Width 4 -Post Debridement Size (cm) - Depth 0.7 -Total Square Cm 40 -Wound/Ulcer Outcome Not Healed -Ulcer Cleansing Rinsed/ Irrigated with Saline -Foul Odor after Cleansing No -Bioengineered Tissue No -Bleeding Controlled with Pressure -Offloading No -Treatment Response Procedure Tolerated Well [See Physician Procedure note for Specifics] Pain Scale: 0-10 Numeric [Pain] -Is Patient Pain Free? Yes Musculoskeletal: No Tenderness to Palpation of Joints or Extremities Neurological: Neuro grossly intact Psych/Mental Status: Normal Affect, Appropriate Debridement Note Post-Debridement Measurements/Treatment WC - Nurse 2 - General Ulcer CM Notes Start: 05/13/19 08:28 Freq: Status: Active Protocol: Activity Type Activity Date Activity User E-Sign Co-Sign Detail Recorded Client Recorded Date Recorded By Document 05/13/19 09:03 [id number] 05/13/19 09:04 Document 05/20/19 09:13 [id number] 05/20/19 09:14 Document 05/27/19 08:43 [id number] 05/27/19 08:45 Document 06/03/19 08:52 [id number] 06/03/19 08:54 05/13/19 05/20/19 05/27/19 09:03 09:13 08:43 Wound Center Nurse 2 #2 Left Medial Ankle -Time 08:44 -Correct Patient No No Yes -Correct Side, Site, Position No No Yes -Correct Procedure No No Yes -Procedure Performed No No Yes -Type of Procedure Debridement -Clinical Debridement Muscle -Post Debridement Size (cm) - Length 11.2 10.5 -Post Debridement Size (cm) - Width 4 4.4 -Post Debridement Size (cm) - Depth 1.0 0.7 -Total Square Cm 44.8 46.20 -Wound/Ulcer Outcome Not Healed Not Healed Not Healed -Ulcer Cleansing Rinsed/ Irrigated with Saline -Foul Odor after Cleansing No -Bioengineered Tissue No -Bleeding Controlled with Pressure -Offloading No -Treatment Response Procedure Tolerated Well #1 Left Lateral Ankle -Time 08:44 -Correct Patient No No Yes -Correct Side, Site, Position No No Yes -Correct Procedure No No Yes -Procedure Performed No No Yes -Type of Procedure Debridement -Clinical Debridement Muscle -Post Debridement Size (cm) - Length 10.5 9.8 -Post Debridement Size (cm) - Width 3.5 3.8 -Post Debridement Size (cm) - Depth 0.7 0.5 -Total Square Cm 36.75 37.24 -Wound/Ulcer Outcome Not Healed Not Healed Not Healed -Ulcer Cleansing Rinsed/ Rinsed/ Irrigated with Irrigated with Saline Saline -Foul Odor after Cleansing No No -Bioengineered Tissue No No -Bleeding Controlled with NA Pressure -Offloading No No -Treatment Response Procedure Procedure Tolerated Well Tolerated Well Pain Scale: 0-10 Numeric Is Patient Pain Free? Yes Yes Yes 06/03/19 08:52 Wound Center Nurse 2 #2 Left Medial Ankle -Time 08:53 -Correct Patient Yes -Correct Side, Site, Position Yes -Correct Procedure Yes -Procedure Performed Yes -Type of Procedure Debridement -Clinical Debridement Subcutaneous -Post Debridement Size (cm) - Length 10.3 -Post Debridement Size (cm) - Width 4 -Post Debridement Size (cm) - Depth 0.8 -Total Square Cm 41.2 -Wound/Ulcer Outcome Not Healed -Ulcer Cleansing Rinsed/ Irrigated with Saline -Foul Odor after Cleansing No -Bioengineered Tissue No -Bleeding Controlled with Pressure -Offloading No -Treatment Response Procedure Tolerated Well #1 Left Lateral Ankle -Time 08:53 -Correct Patient Yes -Correct Side, Site, Position Yes -Correct Procedure Yes -Procedure Performed Yes -Type of Procedure Debridement -Clinical Debridement Subcutaneous -Post Debridement Size (cm) - Length 10 -Post Debridement Size (cm) - Width 4 -Post Debridement Size (cm) - Depth 0.7 -Total Square Cm 40 -Wound/Ulcer Outcome Not Healed -Ulcer Cleansing Rinsed/ Irrigated with Saline -Foul Odor after Cleansing No -Bioengineered Tissue No -Bleeding Controlled with Pressure -Offloading No -Treatment Response Procedure Tolerated Well Pain Scale: 0-10 Numeric Is Patient Pain Free? Yes Wound debrided: medial ulcer Laterality: Left Type of Debridement: Excisional debridement Anesthesia Used: 5% Lidocaine Gel Depth: Down to and including healthy tissue, in the subcutaneous layer Percentage of wound debrided: 100 Instrument Used: 5mm curette Tissue Removed: subcutaneous tissue and slough Severity: Fat Layer Exposed Amount of bleeding with debridement: Mild Bleeding Controlled with: Pressure Patient tolerated procedure well - Additional Wound Wound debrided: Lateral ankle Laterality: Left Type of Debridement: Excisional debridement Anesthesia Used: 5% Lidocaine Gel Depth: Down to and including healthy tissue, in the subcutaneous layer Percentage of wound debrided: 100 Instrument Used: 5mm curette Tissue Removed: subcutaneous tissue and slough Severity: Fat Layer Exposed Amount of bleeding with debridement: Mild Bleeding Controlled with: Pressure Patient tolerated procedure: Patient tolerated procedure well Assessment/Plan Active Problems Ulcer of left lower extremity with bone involvement 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 Nonhealing infected ulcer left lateral lower leg by the ankle with exposed hardware from ORIF procedure. 2. Nonhealing infected ulcer left medial lower leg by the ankle with exposed hardware from ORIF procedure. 3. Status post open reduction and internal fixation (ORIF) of left tibia-fibula fracture. 4. Exposed orthopaedic hardware. 5. Osteomyelitis. Plan: Ulcers continue to show healing with granulation. There is still exposed bone and hardware but much less. She is getting x-rays today by [facility]opedic Service to monitor the healing of the tibia and fibula fractures. Operative cultures showed Enterobacter cloacae. She was treated with Cefepime in the hospital and then discharged on Bactrim. She had trouble with the Bactrim and it was stopped. She was then placed on Cipro. Continue the VAC with adaptic over the bone and hardware. Keep left leg elevated when sitting. Encourage nutritional supplementation with protein to help the healing process. The Silicone layer has been removed from the Integra bilayer skin substitute graft. With the amount of improvement of the healing of the ulcers, will schedule another operative debridement and partial ostectomy of the exposed tibia and fibula for osteomyelitis. This will be in preparation for placement of another Integra bilayer graft (top silicone layer and bottom layer involving collagen m atrix and chondroitin 6-sulfate). This is scheduled for June 17, 2019. The goal is to wait to see if the bones heal satisfactory in which case the hardware will then be removed. I will continue wound care with the VAC and continued Integra placement in preparation for an eventual skin graft. However if the bones do not heal, then the hardware will be removed and an external fixator placed. Partial ostectomy would be performed to evaluate for osteomyelitis. At this point, evaluation would need to be done at a tertiary center for a microvascular free tissue transfer. Possible bone graft or bone flap incorporated with the soft tissue free flap may be needed as well. Patient voices understanding. Will schedule the surgery after the holidays under general anesthesia with a surgical observation overnight stay at the hospital. Patient was informed of the risks and complications of the procedure including alternatives to surgery. These were discussed with her personally. She voices understanding and wishes to proceed. Followup one week. Code Visit [id number]: [id number] Katja subq tissue 20 sq cm/< Add On Codes: 93799 Katja subq tissue add-on - x4
[2019-06-07 08:41] VITALS: BP 146/70; PULSE 100; RESP 16; TEMP 36.8; BMI 23.5
[2019-06-10 08:15] VITALS: BP 127/77; PULSE 109; RESP 20; TEMP 36.4; BMI 23.5
--- NOTE | 2019-06-10 13:43 | PN.PCM_ITS ---
(1) Open wound of left lower leg with complication Status: Chronic Current Visit: Yes Code(s): S81.802A - Unspecified open wound, left lower leg, initial encounter Comment: infection and exposed hardware from ORIF procedure (2) Infection of skin and subcutaneous tissue Status: Chronic Current Visit: Yes Code(s): L08.9 - Local infection of the skin and subcutaneous tissue, unspecified (3) Exposed orthopaedic hardware Status: Chronic Current Visit: Yes Code(s): T84.498A - Other mechanical complication of other internal orthopedic devices, implants and grafts, initial encounter (4) Osteomyelitis Status: Chronic Current Visit: Yes Code(s): M86.9 - Osteomyelitis, unspecified (5) Status post open reduction and internal fixation (ORIF) of fracture Status: Chronic Current Visit: Yes Code(s): Z98.890 - Other specified postprocedural states; Z87.81 - Personal history of (healed) traumatic fracture Type of Wound Date of Service: 06/10/19 Chief Complaint: Nonhealing infected ulcer left lateral lower leg by the ankle with exposed hardware from ORIF procedure and nonhealing infected ulcer left medial lower leg by the ankle with exposed hardware from ORIF procedure. History of Wound: Patient suffered a left tibia and fibula fracture on 03/31/19 while ice skating that required an ORIF of the tibia and fibula fractures on 04/11/19. Postoperatively she developed an infection in the incision with redness and drainage. This necessitated admission to the hospital on 04/26/19 and IV antibiotics started. On 04/27/19 Dr. Khan performed an incision and drainage of the medial and lateral ankle wounds with debridement, washout, wound culture and application of wound VAC. On 04/30/19 she was taken back to surgery for a second debridement, washout culture, application of Integra bilayered skin substitute graft and wound VAC placement by Dr Hairston. Wound cultures showed Enterobacter cloacae and was placed on Cefepime. At discharge, she was placed on Bactrim. She had trouble with Bactrim and it was changed to Cipro. She is tolerating the VAC. She is scheduled for I&D and placement of Integra bilayer on 06/13/19. Today she denies fever. Her appetite is good. Progress of Wound: Improved. - Physical Exam Vital Signs Temp Pulse Resp BP 97.6 F L 109 H 20 H 127/77 H 06/10/19 08:15 06/10/19 08:15 06/10/19 08:15 06/10/19 08:15 General: Alert, Oriented x3, Cooperative HEENT: Atraumatic Oral: Moist Mucosa Lungs: Normal air movement Cardiovascular: Regular rate Abdomen: Soft Extremities: Capillary Refill Less than 3 Seconds, Edema Skin: Ulcer/ Wound - left medial and lateral ankle Wound Measurements and Assessment WC - Nurse 1 - General Ulcer Measurement Start: 05/13/19 08:28 Freq: Status: Active Protocol: Activity Type Activity Date Activity User E-Sign Co-Sign Detail Recorded Client Recorded Date Recorded By Document 06/10/19 08:15 DL [id number] 06/10/19 08:23 DL 06/10/19 08:15 Wound Center Nurse 1 [Ulcer Assessment] #2 Left Medial Ankle -Current Size (cm) - Length 0.7 -Current Size (cm) - Width 4.1 -Current Size (cm) - Depth 0.6 -Total Square Cm 2.87 -Photo Taken No -Exudate Amt Medium -Exudate Type Serosanguineous -Wound Margin Distinct, Outline Attached -Granulation Amt Large (67-100%) -Granulation Quality Red -Necrosis Amt None Present (0 %) -Structure Exposed N/A -Texture (Dawn-wound Skin Appearance) Localized Edema ,Scarring -Moisture (Dawn-wound Skin Appearance No Abnormality ) -Color (Dawn-wound Skin Appearance) No Abnormality -Temperature (Dawn-wound Skin No Abnormality Appearance) (Pt Warm) -Tenderness on Palpation (Dawn-wound No Skin Appearance) -Ulcer Cleansing Wound Cleanser -Foul Odor after Cleansing No -Anesthetic Used 4% Lidocaine Solution #1 Left Lateral Ankle -Current Size (cm) - Length 8.8 -Current Size (cm) - Width 3.8 -Current Size (cm) - Depth 0.6 -Total Square Cm 33.44 -Photo Taken No -Exudate Amt Medium -Exudate Type Serosanguineous -Wound Margin Distinct, Outline Attached -Granulation Amt Large (67-100%) -Granulation Quality Red -Necrosis Amt Small (1-33%) -Necrotic Tissue Type Adherent Slough -Structure Exposed Fat Layer Exposed -Texture (Dawn-wound Skin Appearance) Localized Edema ,Scarring -Moisture (Dawn-wound Skin Appearance No Abnormality ) -Color (Dawn-wound Skin Appearance) No Abnormality -Temperature (Dawn-wound Skin No Abnormality Appearance) (Pt Warm) -Tenderness on Palpation (Dawn-wound No Skin Appearance) -Ulcer Cleansing Wound Cleanser -Foul Odor after Cleansing No -Anesthetic Used 4% Lidocaine Solution WC - Nurse 2 - General Ulcer CM Notes Start: 05/13/19 08:28 Freq: Status: Active Protocol: Activity Type Activity Date Activity User E-Sign Co-Sign Detail Recorded Client Recorded Date Recorded By Document 06/10/19 08:39 [id number] 06/10/19 08:45 CESARIO 06/10/19 08:39 Wound Center Nurse 2 [Procedure/Treatment] #2 Left Medial Ankle -Time 08:39 -Correct Patient Yes -Correct Side, Site, Position Yes -Correct Procedure Yes -Procedure Performed Yes -Type of Procedure Debridement -Clinical Debridement Subcutaneous -Post Debridement Size (cm) - Length 9.8 -Post Debridement Size (cm) - Width 4.0 -Post Debridement Size (cm) - Depth 0.8 -Total Square Cm 39.20 -Wound/Ulcer Outcome Not Healed -Ulcer Cleansing Rinsed/ Irrigated with Saline -Foul Odor after Cleansing No -Bioengineered Tissue No -Bleeding Controlled with Pressure -Offloading No -Treatment Response Procedure Tolerated Well #1 Left Lateral Ankle -Time 08:41 -Correct Patient Yes -Correct Side, Site, Position Yes -Correct Procedure Yes -Procedure Performed Yes -Type of Procedure Debridement -Clinical Debridement Subcutaneous -Post Debridement Size (cm) - Length 9 -Post Debridement Size (cm) - Width 3.9 -Post Debridement Size (cm) - Depth 0.5 -Total Square Cm 35.1 -Wound/Ulcer Outcome Not Healed -Ulcer Cleansing Rinsed/ Irrigated with Saline -Foul Odor after Cleansing No -Bioengineered Tissue No -Bleeding Controlled with Pressure -Offloading No -Treatment Response Procedure Tolerated Well [See Physician Procedure note for Specifics] Pain Scale: 0-10 Numeric [Pain] -Is Patient Pain Free? Yes Musculoskeletal: No Tenderness to Palpation of Joints or Extremities Neurological: Neuro grossly intact Psych/Mental Status: Normal Affect, Appropriate Debridement Note Post-Debridement Measurements/Treatment WC - Nurse 2 - General Ulcer CM Notes Start: 05/13/19 08:28 Freq: Status: Active Protocol: Activity Type Activity Date Activity User E-Sign Co-Sign Detail Recorded Client Recorded Date Recorded By Document 05/13/19 09:03 [id number] 05/13/19 09:04 Document 05/20/19 09:13 [id number] 05/20/19 09:14 Document 05/27/19 08:43 [id number] 05/27/19 08:45 Document 06/03/19 08:52 [id number] 06/03/19 08:54 Document 06/10/19 08:39 [id number] 06/10/19 08:45 05/13/19 05/20/19 05/27/19 09:03 09:13 08:43 Wound Center Nurse 2 #2 Left Medial Ankle -Time 08:44 -Correct Patient No No Yes -Correct Side, Site, Position No No Yes -Correct Procedure No No Yes -Procedure Performed No No Yes -Type of Procedure Debridement -Clinical Debridement Muscle -Post Debridement Size (cm) - Length 11.2 10.5 -Post Debridement Size (cm) - Width 4 4.4 -Post Debridement Size (cm) - Depth 1.0 0.7 -Total Square Cm 44.8 46.20 -Wound/Ulcer Outcome Not Healed Not Healed Not Healed -Ulcer Cleansing Rinsed/ Irrigated with Saline -Foul Odor after Cleansing No -Bioengineered Tissue No -Bleeding Controlled with Pressure -Offloading No -Treatment Response Procedure Tolerated Well #1 Left Lateral Ankle -Time 08:44 -Correct Patient No No Yes -Correct Side, Site, Position No No Yes -Correct Procedure No No Yes -Procedure Performed No No Yes -Type of Procedure Debridement -Clinical Debridement Muscle -Post Debridement Size (cm) - Length 10.5 9.8 -Post Debridement Size (cm) - Width 3.5 3.8 -Post Debridement Size (cm) - Depth 0.7 0.5 -Total Square Cm 36.75 37.24 -Wound/Ulcer Outcome Not Healed Not Healed Not Healed -Ulcer Cleansing Rinsed/ Rinsed/ Irrigated with Irrigated with Saline Saline -Foul Odor after Cleansing No No -Bioengineered Tissue No No -Bleeding Controlled with NA Pressure -Offloading No No -Treatment Response Procedure Procedure Tolerated Well Tolerated Well Pain Scale: 0-10 Numeric Is Patient Pain Free? Yes Yes Yes 06/03/19 06/10/19 08:52 08:39 Wound Center Nurse 2 #2 Left Medial Ankle -Time 08:53 08:39 -Correct Patient Yes Yes -Correct Side, Site, Position Yes Yes -Correct Procedure Yes Yes -Procedure Performed Yes Yes -Type of Procedure Debridement Debridement -Clinical Debridement Subcutaneous Subcutaneous -Post Debridement Size (cm) - Length 10.3 9.8 -Post Debridement Size (cm) - Width 4 4.0 -Post Debridement Size (cm) - Depth 0.8 0.8 -Total Square Cm 41.2 39.20 -Wound/Ulcer Outcome Not Healed Not Healed -Ulcer Cleansing Rinsed/ Rinsed/ Irrigated with Irrigated with Saline Saline -Foul Odor after Cleansing No No -Bioengineered Tissue No No -Bleeding Controlled with Pressure Pressure -Offloading No No -Treatment Response Procedure Procedure Tolerated Well Tolerated Well #1 Left Lateral Ankle -Time 08:53 08:41 -Correct Patient Yes Yes -Correct Side, Site, Position Yes Yes -Correct Procedure Yes Yes -Procedure Performed Yes Yes -Type of Procedure Debridement Debridement -Clinical Debridement Subcutaneous Subcutaneous -Post Debridement Size (cm) - Length 10 9 -Post Debridement Size (cm) - Width 4 3.9 -Post Debridement Size (cm) - Depth 0.7 0.5 -Total Square Cm 40 35.1 -Wound/Ulcer Outcome Not Healed Not Healed -Ulcer Cleansing Rinsed/ Rinsed/ Irrigated with Irrigated with Saline Saline -Foul Odor after Cleansing No No -Bioengineered Tissue No No -Bleeding Controlled with Pressure Pressure -Offloading No No -Treatment Response Procedure Procedure Tolerated Well Tolerated Well Pain Scale: 0-10 Numeric Is Patient Pain Free? Yes Yes Wound debrided: medial ankle Laterality: Left Type of Debridement: Excisional debridement Anesthesia Used: 5% Lidocaine Gel Depth: Down to and including healthy tissue, in the subcutaneous layer Percentage of wound debrided: 100 Instrument Used: 5mm curette Tissue Removed: subcutaneous tissue and slough Severity: Fat Layer Exposed Amount of bleeding with debridement: Mild Bleeding Controlled with: Pressure Patient tolerated procedure well - Additional Wound Wound debrided: lateral ankle Laterality: Left Type of Debridement: Excisional debridement Anesthesia Used: 5% Lidocaine Gel Depth: Down to and including healthy tissue, in the subcutaneous layer Percentage of wound debrided: 100 Instrument Used: 5mm curette Tissue Removed: subcutaneous tissue and slough Severity: Fat Layer Exposed Amount of bleeding with debridement: Mild Bleeding Controlled with: Pressure Patient tolerated procedure: Patient tolerated procedure well Assessment/Plan Active Problems Ulcer of left lower extremity with bone involvement 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 Nonhealing infected ulcer left lateral lower leg by the ankle with exposed hardware from ORIF procedure. 2. Nonhealing infected ulcer left medial lower leg by the ankle with exposed hardware from ORIF procedure. 3. Status post open reduction and internal fixation (ORIF) of left tibia-fibula fracture. 4. Exposed orthopaedic hardware. 5. Osteomyelitis. Plan: Ulcers continue to show healing with granulation. There is still exposed bone and hardware but much less. She is getting x-rays today by Orthopedic Service to monitor the healing of the tibia and fibula fractures. Operative cultures showed Enterobacter cloacae. She was treated with Cefepime in the hospital and then discharged on Bactrim. She had trouble with the Bactrim and it was stopped. She was then placed on Cipro. Continue the VAC with adaptic over the bone and hardware. Keep left leg elevated when sitting. She is sc heduled for I&D and placement of Integra bilayer on 06/13/19. Encourage nutritional supplementation with protein to help the healing process. The Silicone layer has been removed from the Integra bilayer skin substitute graft. With the amount of improvement of the healing of the ulcers, will schedule another operative debridement and partial ostectomy of the exposed tibia and fibula for osteomyelitis. This will be in preparation for placement of another Integra bilayer graft (top silicone layer and bottom layer involving collagen matrix and chondroitin 6-sulfate). This is scheduled for June 17, 2019. The goal is to wait to see if the bones heal satisfactory in which case the hardware will then be removed. I will continue wound care with the VAC and continued Integra placement in preparation for an eventual skin graft. However if the bones do not heal, then the hardware will be removed and an external fixator placed. Partial ostectomy would be performed to evaluate for osteomyelitis. At this point, evaluation would need to be done at a tertiary center for a microvascular free tissue transfer. Possible bone graft or bone flap incorporated with the soft tissue free flap may be needed as well. Patient voices understanding. Will schedule the surgery after the holidays under general anesthesia with a surgical observation overnight stay at the hospital. Patient was informed of the risks and complications of the procedure including alternatives to surgery. These were discussed with her personally. She voices understanding and wishes to proceed. Followup one week. Code Visit 111xxx-113xx: 74271 Katja subq tissue 20 sq cm/< Add On Codes: 28013 Katja subq tissue add-on - x3
== END 2019-06-11 23:59 ==
LOC: WC 08:00
PROVIDERS: Visit Provider Nurse Practitioner Family
DX: T84.498A Other mechanical complication of other internal orthopedic devices, implants and grafts, initial encounter (principal); L08.9 Local infection of the skin and subcutaneous tissue, unspecified; S82.202S Unspecified fracture of shaft of left tibia, sequela; S82.402S Unspecified fracture of shaft of left fibula, sequela; V00.21 Ice-skates accident; Y79.8 Miscellaneous orthopedic devices associated with adverse incidents, not elsewhere classified; T81.89XA Other complications of procedures, not elsewhere classified, initial encounter
CPT/HCPCS: 11042; 11043; 11045; 11046; 97606; 99213; G0463

== ENCOUNTER 2019-06-13 08:37 | Day surgery (SDC) | payer OTHER, SELFPAY ==
[2019-05-30 14:30] VITALS: BMI 23.5
--- NOTE | 2019-06-12 19:42 | HP.PCM_ITS ---
History and Physical Date of Admission: 06/13/19 HISTORY OF PRESENT ILLNESS 33 year old woman suffered a left tibia and fibula fracture on 03/31/19 while ice skating that required an ORIF of the tibia and fibula fractures on 04/11/19. Postoperatively she developed an infection in the incision with redness and drainage. This necessitated admission to the hospital on 04/26/19 and IV antibiotics started. On 04/27/19 Dr. Khan performed an incision and drainage of the medial and lateral ankle wounds with debridement, washout, wound culture and application of wound VAC. On 04/30/19 she was taken back to surgery for a second debridement, washout culture, application of Integra bilayered skin substitute graft and wound VAC placement by Dr Hairston. Wound cultures showed Enterobacter cloacae and was placed on Cefepime. At discharge, she was placed on Bactrim. She had trouble with Bactrim and it was changed to Cipro. She is tolerating the VAC. Today she denies fever. Her appetite is good. The bony fracture is healing satisfactory at this time based on periodic x-rays done by Dr. Hairston. Good granulation tissue is noted at wound center visits. There is less exposed bone and hardware at this time. She presents for another application of Integra bilayered skin substitute graft. PAST MEDICAL HISTORY endometriosis left tibia and fibula fracture PAST SURGICAL HISTORY Hysterectomy Laparoscopy D&C 04/11/19 - ORIF left tibial and fibular fracture with plate and screw fixation. 04/27/19 - 1. Irrigation debridement left leg wound skin subcutaneous tissue fat fascia and bone lateral wound 111 mm x 30 mm. 2. Irrigation debridement left leg wound skin subcutaneous tissue fat fascia and bone medial wound 117 mm x 46 mm. 3. Placement of wound VAC. 04/30/19 - 1. Debridement of nonviable tissue of the left medial and lateral a nkle wounds down to including level of tendon, muscle, fascia. 2. washout of left medial and lateral ankle wounds. 3. application of synthetic skin substitute to left medial and lateral ankle wounds. 4. application of wound VAC to wound of left medial and lateral ankle wounds. ALLERGIES No Known Allergies MEDICATIONS Os-marleni Vitamin D3 Cipro Prozac [place] Probiotic SOCIAL HISTORY Lives: Spouse/ Significant Other Smoking Status: Never smoker Tobacco Use: Non-smoker Alcohol: Occasional Drugs: None FAMILY HISTORY Maternal - No pertinent history REVIEW OF SYSTEMS Constitutional: Denies: Chills, Fever, Weakness Eyes: Denies: Pain HEENT: Denies: Nasal Congestion, Sore Throat Cardiovascular: Denies: Chest Pain Respiratory: Denies: Cough, Shortness of Breath Gastrointestinal: Denies: Constipation, Diarrhea, Nausea, Vomiting Genitourinary: Denies: Frequency, Hematuria Musculoskeletal: Reports: Foot Pain, Leg Pain - left leg pain after ORIF of left tib-fib fracture and subsequent infection with exposed hardware.. Denies: Arm Pain, Back Pain, Hand Pain, Neck Pain Skin: Reports: Wounds - open surgical wounds left lower leg (medial and lateral) with exposed hardware after ORIF procedure and subsequent infection. Neurological: Denies: Headaches Psychiatric: Denies: Anxiety, Depression Endocrine: Denies: Heat/ Cold Intolerance, Polydipsia, Polyuria Hematologic/ Lymphatic: Denies: Anemia, Hx of blood clot PHYSICAL EXAMINATION General: Alert, Oriented x3, Cooperative, No apparent distress. HEENT: PERRLA, EOMI. Neck: Supple, nontender. No cervical adenopathy. Lungs: Clear to auscultation. Cardiovascular: Regular rate, Regular Rhythm. Abdomen: Soft, Non-Distended. Extremities: On the left lower extremity at the ankle level are two nonhealing surgical wounds from recent ORIF of complex ankle fracture with subsequent infection and exposed hardware. Wounds are clean with good vascular bleeding tissue surrounding the exposed plates and screws. On the lateral wound there is also exposed tendon. The medial wound measures 9.8 x 4 cm. The lateral wound measures 9 x 4 cm. Dorsalis pedis pulses are palpable. No inguinal adenopathy. Neurological: Cranial nerves II-XII grossly intact ASSESSMENT 1. Nonhealing infected ulcer left lateral lower leg by the ankle with exposed hardware from ORIF procedure. 2. Nonhealing infected ulcer left medial lower leg by the ankle with exposed hardware from ORIF procedure. 3. Status post open reduction and internal fixation (ORIF) of left tibia-fibula fracture. 4. Exposed orthopaedic hardware. 5. Osteomyelitis. PLAN Ulcers continue to show healing with granulation. There is still exposed bone and hardware but much less. She gets periodic x-rays by Orthopedic Service to monitor the healing of the tibia and fibula fractures. Operative cultures showed Enterobacter cloacae. She was treated with Cefepime in the hospital and then discharged on Bactrim. She had trouble with the Bactrim and it was stopped. She was then placed on Cipro. Continue the VAC with adaptic over the bone and hardware. Keep left leg elevated when sitting. Encourage nutritional supplementation with protein to help the healing process. The Silicone layer has been removed from the Integra bilayer skin substitute graft. With the amount of improvement of the healing of the ulcers, will schedule another operative debridement and partial ostectomy of the exposed tibia and fibula for osteomyelitis. This will be in preparation for placement of another Integra bilayer graft (top silicone layer and bottom layer involving collagen matrix and chondroitin 6-sulfate). The goal is to wait to see if the bones heal satisfactory in which case the hardware will then be removed. I will continue wound care with the VAC and continued Integra placement in preparation for an eventual skin graft. However if the bones do not heal, then the hardware will be removed and an external fixator placed. Partial ostectomy would be performed to evaluate for osteomyelitis. At this point, evaluation would need to be done at a tertiary center for a microvascular free tissue transfer. Possible bone graft or bone flap incorporated with the soft tissue free flap may be needed as well. Patient voices understanding. Will schedule the surgery after the holidays under general anesthesia with a surgical observation overnight stay at the hospital. Patient was informed of the risks and complications of the procedure including alternatives to surgery. These were discussed with her personally. She voices understanding and wishes to proceed. Post discharge will followup at the Wound Center.
[2019-06-13] VITALS (8 sets, daily range): BP systolic 118–133; BP diastolic 72–87; PULSE 75–87; RESP 14–16; TEMP 36.3–36.7; O2SAT 95–100; BMI 22.9
--- NOTE | 2019-06-13 | UL_PTH ---
PATIENT: DENYS VERDE LOC: [facility] – [place] U#:[id number] AGE/SX: 33/F ROOM: RE06/13/[address]: Dr. Benson Clifton MD : 1985 BED: DIS: 06/13/2019 SPEC #: [id number] RECD: 06/13/19 14:01 STATUS: DEA MARBIN #: [id number] CORNELL: 06/13/19 00:[address]: Benson Clifton DEPT: SURGICAL PATHOLOGY RECD BY: Jarad Davila Tissues: A - Ankle, NOS B - Bone of ankle, NOS C - Ankle, NOS Procedures: PAS Fungus (control) Decalcification bone/plaque Special Stain Group I Surgery Specimen Level III AFB Stain (control) HEADER OPERATION: Surgical prep lateral lower leg and medial lower leg near ankle PRE-OP DIAGNOSIS: Nonhealing infected ulcer left lateral lower leg by ankle with exposed hardware from ORIF TISSUE SUBMITTED: A - Soft tissue left medial ankle, B - Bone left medial ankle, C - Soft tissue left lateral ankle MICROSCOPIC DIAGNOSIS A. Soft tissue left medial ankle: Fragments of fibroconnective tissue with acute and chronic inflammation and granulation tissue reaction. A few minute fragments of bone with reactive changes, negative for acute osteomyelitis. B. Bone left medial ankle: Fragments of bone with reactive changes, negative for acute osteomyelitis. C. Soft tissue left lateral ankle: Fragments of fibroconnective tissue with acute and chronic inflammation, granulation tissue reaction and abscess formation. Special stains for acid fast bacilli and fungi are negative for organisms; matched controls are appropriate. Olivier 06/19/19 MICROSCOPIC DESCRIPTION Slides are reviewed. GROSS DESCRIPTION A - Received in fixative is one container labeled with the patient's name and designated soft tissue left medial ankle. The specimen consists of multiple pieces of major-pink soft tissue that in aggregate measure 1.5 x 1.5 x 0.1 cm. The entire specimen is submitted in one cassette. B - Received in fixative is one container labeled with the patient's name and designated bone left medial ankle. The specimen consists of two pieces of bone measuring in aggregate 1.5 x 0.3 x 0.2 cm. The entire specimen is submitted in one cassette after decalcification. C - Received in fixative is one container labeled with the patient's name and designated soft tissue left lateral ankle. The specimen consists of multiple pieces of major-pink soft tissue mixed with hemorrhagic tissue that in aggregate measure 2 x 2 x 0.3 cm. The entire specimen is submitted in one cassette. / SARAH:daryl 06/13/19 TC:2 CPT: 87487 x3, 65947, 87004 x2
[2019-06-13] MEDS: Lactated Ringers 1,000 ML 100 ML IV (09:18)
--- NOTE | 2019-06-13 11:57 | PCM.OPRPT ---
Report of Operation Date of Procedure: 06/13/19 Pre-Operative Diagnosis: 1. Nonhealing infected ulcer left medial lower leg by the ankle with exposed hardware from ORIF procedure. 2. Nonhealing infected ulcer left lateral lower leg by the ankle with exposed hardware from ORIF procedure. 3. Status post open reduction and internal fixation (ORIF) of left tibia-fibula fracture. 4. Exposed orthopaedic hardware. 5. Osteomyelitis. Post-Operative Diagnosis: Same. Surgery/Procedure Performed:: 1. Surgical preparation left medial lower leg by the ankle with excisional debridement nonhealing infected ulcer with exposed hardware (40 cm2). 2. Partial ostectomy tibia for osteomyelitis. 3. Placement Integra meshed bilayered wound matrix skin substitute graft (40 cm2). 4. Surgical preparation left lateral lower leg by the ankle with excisional debridement nonhealing infected ulcer with exposed hardware (36 cm2). 5. Placement Integra meshed bilayered wound matrix skin substitute graft (36 cm2). Description of Surgical Findings:: 33 year old woman suffered a left tibia and fibula fracture on 03/31/19 while ice skating that required an ORIF of the tibia and fibula fractures on 04/11/19. Postoperatively she developed an infection in the incision with redness and drainage. This necessitated admission to the hospital on 04/26/19 and IV antibiotics started. On 04/27/19 Dr. Khan performed an incision and drainage of the medial and lateral ankle wounds with debridement, washout, wound culture and application of wound VAC. On 04/30/19 she was taken back to surgery for a second debridement, washout culture, application of Integra bilayered skin substitute graft and wound VAC placement by Dr Hairston. Wound cultures showed Enterobacter cloacae and was placed on Cefepime. At discharge, she was placed on Bactrim. She had trouble with Bactrim and it was changed to Cipro. She is tolerating the VAC. Today she denies fever. Her appetite is good. The bony fracture is healing satisfactory at this time based on periodic x-rays done by Dr. Hairston. Good granulation tissue is noted at wound center visits. There is less exposed bone and hardware at this time. She presents for another application of Integra bilayered skin substitute graft. Patient was informed of the risks and complications of the procedure including alternatives to surgery. These were discussed with the patient personally. Patient voices understanding and wishes to proceed. Some of the risks and complications were included in a form from the [employer]. I used Integra Meshed Bilayer Wound Matrix, (10 x 12.5 cm, or 125 cm2). Reference Number - [id number]. Lot Number - [id number]. Expiration - March 11, 2021. I used AmnioFill Placental Connective Tissue Powder, (500 mg, 2 vials). Catalog Number - [id number]. Lot Number - [id number]. Expiration - January 11, 2024, (Left medial lower leg by the ankle). Catalog Number - [id number]. Lot Number - [id number]. Expiration - February 11, 2024, (Left lateral lower leg by the ankle). investigations manager: None Type of Anesthesia:: General Specimen's removed: 1. Left medial lower leg by the ankle soft tissue to Pathology and Microbiology. 2. Left medial lower leg by the ankle bone to Pathology and Microbiology. 3. Left lateral lower leg by the ankle soft tissue to Pathology and Microbiology. Drains: None. Estimated Blood Loss (mL): 50 ml. Description of Procedure: Patient was taken to OR in supine position and was placed under general anesthesia. The left leg was prepped and draped in the usual fashion. SCD was placed on the right leg for DVT prophylaxis. Perioperative antibiotics were given intravenously. Using xylocaine with epinephrine, the nonhealing ulcers left medial lower leg and left lateral leg by the ankle were infiltrated. After waiting 5 minutes for the anesthetic to take effect, I proceeded with surgical preparation of these ulcers with excisional debridement using a scalpel and a curette. I also debrided down to the tibia. A partial ostectomy was done using rongeurs. A rasp was used to smooth out the edges. Half the soft tissue from each ulcer was sent to Pathology for analysis to rule out carcinoma and the other half of the soft tissue was sent to Microbiology for culture. Half the tibial bone was sent to Pathology for analysis to evaluate for osteomyelitis and to Microbiology for culture. A positive culture will necessitate antibiotic therapy. Good bleeding was seen after the excisional debridements. The size of the medial leg defect was 10 x 4 cm or 40 cm2. The size of the lateral leg defect was 9 x 4 cm or 36 cm2. The wounds were irrigated with saline. Hemostasis was obtained with electrocautery. I sprayed AmnioFill placental connective tissue powder into each of the ulcers. I used 500 mg for each ulcer. I then placed Integra meshed bilayer wound matrix skin substitute graft onto each ulcer. The grafts were secured to the skin edges with surgical clips. Surgical clips were also used for central quilting stabilization. A compression dressing was applied with moistened Kerlix gauze followed by dry Kerlix gauze and a compression kya wrap. The vac will be applied tomorrow. Patient tolerated the procedure well and was sent to PACU in satisfactory condition. Patient will be sent home on antibiotics and pain medication. Patient will followup at the wound center tomorrow for a vac dressing change. This will be followed by twice a week vac changes. While at the wound center, will discuss the pathology report and the microbiology report. A positive culture and positive pathology will necessitate long-term antibiotics with IV antibiotics. Will remove the surgical clips in 2-3 weeks and will remove the outer silicone layer in 3 weeks. Will consider additional placement of Integra meshed bilayer wound matrix skin substitute grafts in 4-6 weeks. Grafts/Implants Used: Integra Bilayer Wound Matrix and AmnioFill x2. - Complications None. - Admit VTE Documentation VTE Present on Admission: No VTE Mechan Device Prophylaxis: SCD's VTE Pharm Prophylaxis ordered?: Yes Code Visit Surgery Charges CPT - 90373 ICD-10 - L97.926, T84.498A, L08.9, M86.9, S82.202A, S82.402A, Z98.890 97987 M86.9, L97.926, T84.498A, L08.9, S82.202A, S82.402A, Z98.890 84052 L97.926, T84.498A, L08.9, M86.9, S82.202A, S82.402A, Z98.890 64227 L97.926, T84.498A, L08.9, M86.9, S82.202A, S82.402A, Z98.890 30657 L97.926, T84.498A, L08.9, M86.9, S82.202A, S82.402A, Z98.890 85206 L97.926, T84.498A, L08.9, M86.9, S82.202A, S82.402A, Z98.890
--- NOTE | 2019-06-13 13:45 | DCINST_ITS ---
You will use the following diet at home:: No restrictions, Other - encourage nutritional supplementation with protein to help the healing process. Discharge Activity: May Not Drive, May Shower - place plastic bag over left leg when showering., - - no standing. elevate left leg when sitting. May shower in (days): 1 - place plastic bag over left leg when showering. May resume sexual activity in: No Restrictions Weight Bearing Status: - - as per orthopedic service. Keep extremity elevated above heart level: Left Leg Call your doctor if your incision/area has: Continuous Slow Oozing, Sudden Increased Bleeding, Increased Pain/ Swelling, Increased Redness, Foul Smelling Discharge, Swelling at the incision site Call your doctor if you observe: Fever of 101 or Higher, Coldness, Increased Pain, Shortness of breath, Chest pain, Calf discomfort, Uncontrolled pain Suture Line Care: - - vac chnages twice a week. Change Dressing in (Days):: 1 - vac change at wound center tomorrow. Cleanse incision/area with: Soap & Water - nay cleanse the ulcers with soap and water at the time of the vac change., - - wear plastic bag over left leg when showreing. Additional Dressing/Incision Instructions:: Vac changes twice a week at the wound center. wash the ulcers with soap and water at the time of the vac change. Allergies/Adverse Reactions: Allergies No Known Allergies Allergy (Verified 06/13/19 08:57) Medications to take at Discharge Calcium (Elemental) [Os-Hong 500] 500 mg PO DAILY@0800 06/07/19 Cholecalciferol (Vitamin D3) [Vitamin D3] 2,000 unit PO DAILY 06/07/19 Fluoxetine [Prozac] 10 mg PO DAILY 06/07/19 L.acidoph,Paracasei, B.lactis [Probiotic] 1 ea PO DAILY 06/07/19 Ciprofloxacin [Cipro] 500 mg PO BID #60 tab 06/13/19 Docusate Sodium [Colace] 100 mg PO BID cap 06/13/19 Hydrocodone/Acetaminophen [Hiram 5-325 Tablet] 1 ea PO .[id number] PRN PRN 7 Days #40 tab 06/13/19 proMETHazine tablet [Phenergan tablet] 25 mg PO Q4H PRN PRN tab 06/13/19 The following prescriptions were given: Ciprofloxacin [Cipro] 500 mg PO BID #60 tab [facility] Hydrocodone/Acetaminophen [Hiram 5-325 Tablet] 1 ea PO .[id number] PRN PRN 7 Days #40 tab PRN Reason: Pain Score 4-5/10 Transmission Status[facility] Primary Care Physician: NARINDER DAVILA [Other] Test Results: Test results from this visit will be discussed in further detail at your follow- up appointment, if applicable. Please Follow Up With: Benson Clifton MD When: monday06/17/19 at wound center. Please Follow Up With: wound center When: tomorrow 06/14/19 for a nurse visit vac change at 900 am. Proposed Discharge Date: 06/13/19
== END 2019-06-13 14:27 | disposition home or self-care (01) ==
LOC: SDC 08:38 → AC 08:39
PROVIDERS: Referring Provider Surgery; Visit Provider Surgery
PROC: (CPT 15002; principal; 2019-06-13 10:00)
DX: L97.326 Non-pressure chronic ulcer of left ankle with bone involvement without evidence of necrosis (principal); T84.498A Other mechanical complication of other internal orthopedic devices, implants and grafts, initial encounter; T85.79XA Infection and inflammatory reaction due to other internal prosthetic devices, implants and grafts, initial encounter; S82.202S Unspecified fracture of shaft of left tibia, sequela; S82.402S Unspecified fracture of shaft of left fibula, sequela; V00.21 Ice-skates accident; Z79.899 Other long term (current) drug therapy
CPT/HCPCS: 15002; 15271; 15272 ×3; 27640; 87070; 87075; 87077; 87102; 87176; 87186; 87205; 87206; 88304; 88305; 88311; 88312; J7120; J2405

== ENCOUNTER → 2019-07-08 13:09 | Outpatient (CLI) | payer OTHER, SELFPAY ==
[2019-06-24 08:09] VITALS: BMI 22.9
[2019-07-08 08:12] VITALS: BMI 22.9
--- NOTE | 2019-07-08 13:13 | CT_ITS ---
Study: CT of the left lower extremity without contrast MEDICAL HISTORY: left ankle fracture, infection Previous study: 04/08/2019 PROCEDURE: Multiple computed tomographic images of the left lower extremity/ankle region were obtained at 2.5 mm intervals using contiguous 2.5 mm thick slices in the axial projection. Coronal and sagittal reconstructions were obtained. Radiation dose: Total exam DLP: 454.77 FINDINGS: There is a nondisplaced oblique fracture of the distal fibular shaft which is stabilized with plate and multiple screws. Minimal callus is noted about this fracture site. Bone union has not occurred as of yet. There is a comminuted nondisplaced fracture of the distal tibial shaft which is stabilized with plate and multiple screws. There is minimal callus about this fracture site. Bone union has not occurred as of yet. There is a mottled appearance of the visualized tarsals which may be indicative of disuse atrophy. There is no evidence of osteomyelitis. There appears to be talar tilting which is suggestive of ligamentous instability. There is no evidence of soft tissue abscess or gas. There is a skin/soft tissue defect of the proximal medial ankle. CT/Extremity Lower without Contra IMPRESSION: Internally stabilize fractures of the distal tibia and fibula as detailed above. Some callus is noted about the fracture sites. Bone union has not occurred as of yet. There is a diffuse mottled appearance of the tarsals which may be indicative of disuse atrophy. There is no evidence of osteomyelitis. There is talar tilting which is suggestive of ligamentous instability. There is a skin/soft tissue defect of the proximal medial ankle. Electronically Signed: Giovany Fatima MD at 23:26 EST , Service support ,
== END ==
PROVIDERS: Referring Provider Podiatrist Foot & Ankle Surgery; Visit Provider Podiatrist Foot & Ankle Surgery
DX: S82.62XS Displaced fracture of lateral malleolus of left fibula, sequela (principal); T81.42XD Infection following a procedure, deep incisional surgical site, subsequent encounter; X58.XXXD Exposure to other specified factors, subsequent encounter
CPT/HCPCS: 73700

== ENCOUNTER 2019-07-12 12:00 | Outpatient (RCR) | payer OTHER, SELFPAY ==
[2019-06-12 00:57] VITALS: BP 127/77; PULSE 109; RESP 20; TEMP 36.4
[2019-06-13 09:03] VITALS: BMI 22.9
[2019-06-14 09:31] VITALS: BP 140/77; PULSE 99; RESP 16; TEMP 36.8; BMI 22.9
[2019-06-17 10:24] VITALS: BP 133/81; PULSE 105; RESP 18; TEMP 36.6; BMI 22.9
--- NOTE | 2019-06-17 14:46 | PN.PCM_ITS ---
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 Current Visit: Yes Code(s): L97.926 - Non-pressure chronic ulcer of unspecified part of left lower leg with bone involvement without evidence of necrosis Comment: nonhealing infected ulcer left lateral lower leg by the ankle with exposed hardware from ORIF procedure nonhealing infected ulcer left medial lower leg by the ankle with exposed hardware from ORIF procedure (2) Osteomyelitis Status: Chronic Current Visit: Yes Code(s): M86.9 - Osteomyelitis, unspecified (3) Exposed orthopaedic hardware Status: Chronic Current Visit: Yes Code(s): T84.498A - Other mechanical com plication of other internal orthopedic devices, implants and grafts, initial encounter (4) Status post open reduction and internal fixation (ORIF) of fracture Status: Chronic Current Visit: Yes Code(s): Z98.890 - Other specified postprocedural states; Z87.81 - Personal history of (healed) traumatic fracture Type of Wound Date of Service: 06/17/19 Chief Complaint: Nonhealing infected ulcer left lateral lower leg by the ankle with exposed hardware from ORIF procedure and nonhealing infected ulcer left medial lower leg by the ankle with exposed hardware from ORIF procedure. History of Wound: Patient suffered a left tibia and fibula fracture on 03/31/19 while ice skating that required an ORIF of the tibia and fibula fractures on 04/11/19. Postoperatively she developed an infection in the incision with r edness and drainage. This necessitated admission to the hospital on 04/26/19 and IV antibiotics started. On 04/27/19 Dr. Khan performed an incision and drainage of the medial and lateral ankle wounds with debridement, washout, wound culture and application of wound VAC. On 04/30/19 she was taken back to surgery for a second debridement, washout culture, application of Integra bilayered skin substitute graft and wound VAC placement by Dr Hairston. Wound cultures showed Enterobacter cloacae and was placed on Cefepime. At discharge, she was placed on Bactrim. She had trouble with Bactrim and it was changed to Cipro. On 06/13/2019 she underwent 1. Surgical preparation left medial lower leg by the ankle with excisional debridement nonhealing infected ulcer with exposed hardware (40 cm2). 2. Partial ostectomy tibia for osteomyelitis. 3. Placement Integra meshed bilayered wound matrix skin substitute graft (40 cm2). 4. Surgical preparation left lateral lower leg by the ankle with excisional debridement nonhealing infected ulcer with exposed hardware (36 cm2). 5. Placement Integra meshed bilayered wound matrix skin substitute graft (36 cm2). Her surgical culture was positive for MRSA and Corynebacterium striatum. I spoke with Dr. Dave and he would like her on Doxycycline and Keflex. She is tolerating the VAC. Today she denies fever. Her appetite is good. Progress of Wound: Improved. - Physical Exam Vital Signs Temp Pulse Resp BP 98 F 105 H 18 133/81 H 06/17/19 10:24 06/17/19 10:24 06/17/19 10:24 06/17/19 10:24 General: Alert, Oriented x3, Cooperative HEENT: Atraumatic Oral: Moist Mucosa Lungs: Normal air movement Cardiovascular: Regular rate Extremities: Capillary Refill Less than 3 Seconds, Edema, Peripheral Pulses N ormal Skin: Ulcer/ Wound - Left medial leg ulcer and left lateral leg ulcer Wound Measurements and Assessment WC - Nurse 1 - General Ulcer Measurement Start: 06/14/19 09:31 Freq: Status: Active Protocol: Activity Type Activity Date Activity User E-Sign Co-Sign Detail Recorded Client Recorded Date Recorded By Document 06/17/19 10:24 DL [id number] 06/17/19 10:36 DL 06/17/19 10:24 Wound Center Nurse 1 [Ulcer Assessment] #2 Left Medial Ankle -Current Size (cm) - Length 10.4 -Current Size (cm) - Width 5.5 -Current Size (cm) - Depth 0.2 -Total Square Cm 57.20 -Photo Taken No -Exudate Amt None Present -Wound Margin Distinct, Outline Attached -Granulation Amt Large (67-100%) -Granulation Quality Red -Necrosis Amt None Present (0 %) -Structure Exposed N/A -Texture (Ivet-wound Skin Appearance) Scarring -Moisture (Ivet-wound Skin Appearance No Abnormality ) -Color (Ivet-wound Skin Appearance) No Abnormality -Temperature (Ivet-wound Skin No Abnormality Appearance) (Pt Warm) -Tenderness on Palpation (Ivet-wound No Skin Appearance) -Ulcer Cleansing Ivet Ulcer only -Foul Odor after Cleansing No #1 Left Lateral Ankle -Current Size (cm) - Length 9.5 -Current Size (cm) - Width 3 -Current Size (cm) - Depth 0.2 -Total Square Cm 28.5 -Photo Taken No -Exudate Amt None Present -Wound Margin Distinct, Outline Attached -Granulation Amt Large (67-100%) -Granulation Quality Red -Necrosis Amt None Present (0 %) -Structure Exposed N/A -Texture (Ivet-wound Skin Appearance) Scarring -Moisture (Ivet-wound Skin Appearance No Abnormality ) -Color (Ivet-wound Skin Appearance) No Abnormality -Temperature (Ivet-wound Skin No Abnormality Appearance) (Pt Warm) -Tenderness on Palpation (Ivet-wound No Skin Appearance) -Ulcer Cleansing ivet ulcer only -Foul Odor after Cleansing No [Edema Assessment] -Left Calf (cm) 30.5 -Left Ankle (cm) 24.6 WC - Nurse 2 - General Ulcer CM Notes Start: 06/14/19 09:31 Freq: Status: Active Protocol: Activity Type Activity Date Activity User E-Sign Co-Sign Detail Recorded Client Recorded Date Recorded By Document 06/17/19 11:07 [id number] 06/17/19 11:18 06/17/19 11:07 Wound Center Nurse 2 [Procedure/Treatment] #2 Left Medial Ankle -Correct Patient No -Correct Side, Site, Position No -Correct Procedure No -Procedure Performed No -Wound/Ulcer Outcome Not Healed #1 Left Lateral Ankle -Correct Patient No -Correct Side, Site, Position No -Correct Procedure No -Procedure Performed No -Wound/Ulcer Outcome Healed- Epithelialized [See Physician Procedure note for Specifics] Pain Scale: 0-10 Numeric [Pain] -Is Patient Pain Free? Yes Musculoskeletal: No Muscle Wasting Neurological: Neuro grossly intact Psych/Mental Status: Normal Affect, Appropriate Debridement Note Post-Debridement Measurements/Treatment - Nurse 2 - General Ulcer CM Notes Start: 06/14/19 09:31 Freq: Status: Active Protocol: Activity Type Activity Date Activity User E-Sign Co-Sign Detail Recorded Client Recorded Date Recorded By Document 06/17/19 11:07 [id number] 06/17/19 11:18 06/17/19 11:07 Wound Center Nurse 2 #2 Left Medial Ankle -Correct Patient No -Correct Side, Site, Position No -Correct Procedure No -Procedure Performed No -Wound/Ulcer Outcome Not Healed #1 Left Lateral Ankle -Correct Patient No -Correct Side, Site, Position No -Correct Procedure No -Procedure Performed No -Wound/Ulcer Outcome Healed- Epithelialized Pain Scale: 0-10 Numeric Is Patient Pain Free? 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 Nonhealing infected ulcer left lateral lower leg by the ankle with exposed hardware from ORIF procedure. 2. Nonhealing infected ulcer left medial lower leg by the ankle with exposed hardware from ORIF procedure. 3. Status post open reduction and internal fixation (ORIF) of left tibia-fibula fracture. 4. Exposed orthopaedic hardware. 5. Osteomyelitis. Plan: Ulcers continue to show healing with granulation. There is still exposed bone and hardware but much less. She is getting x-rays today by Orthopedic Service to monitor the healing of the tibia and fibula fractures. Operative cultures showed Enterobacter cloacae. She was treated with Cefepime in the hospital and then discharged on Bactrim. She had trouble with the Bactrim and it was stopped. She was then placed on Cipro. On 06/13/2019 she underwent 1. Surgical preparation left medial lower leg by the ankle with excisional debridement nonhealing infected ulcer with exposed hardware (40 cm2). 2. Partial ostectomy tibia for osteomyelitis. 3. Placement Integra meshed bilayered wound matrix skin substitute graft (40 cm2). 4. Surgical preparation left lateral lower leg by the ankle with excisional debridement nonhealing infe cted ulcer with exposed hardware (36 cm2). 5. Placement Integra meshed bilayered wound matrix skin substitute graft (36 cm2). Her surgical culture was positive for MRSA and Corynebacterium striatum. I spoke with Dr. Dave and he would like her on Doxycycline (30 days BID) and Keflex (15 days tid). Continue the VAC over the Integra bilayer graft (top silicone layer and bottom layer involving collagen matrix and chondroitin 6-sulfate). Keep left leg elevated when sitting. Will use Surepress for compression to help with edema management. Encourage nutritional supplementation with protein to help the healing process. The goal is to wait to see if the bones heal satisfactory in which case the hardware will then be removed. I will continue wound care with the VAC and continued Integra placement in preparation for an eventual skin graft. However if the bones do not heal, then the hardware will be removed and an external fixator placed. Partial ostectomy would be performed to evaluate for osteomyelitis. At this point, evaluation would need to be done at a tertiary center for a microvascular free tissue transfer. Possible bone graft or bone flap incorporated with the soft tissue free flap may be needed as well. Patient voices understanding. Followup one week. Code Visit [id number]
[2019-06-21 08:36] VITALS: BP 129/90; PULSE 103; RESP 20; TEMP 36.6; BMI 22.9
[2019-06-24 08:09] VITALS: BP 125/75; PULSE 103; RESP 20; TEMP 36.6; BMI 22.9
--- NOTE | 2019-06-24 14:15 | PN.PCM_ITS ---
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 Current Visit: Yes Code(s): L97.926 - Non-pressure chronic ulcer of unspecified part of left lower leg with bone involvement without evidence of necrosis Comment: nonhealing infected ulcer left lateral lower leg by the ankle with exposed hardware from ORIF procedure nonhealing infected ulcer left medial lower leg by the ankle with exposed hardware from ORIF procedure (2) Osteomyelitis Status: Chronic Current Visit: Yes Code(s): M86.9 - Osteomyelitis, unspecified (3) Exposed orthopaedic hardware Status: Chronic Current Visit: Yes Code(s): T84.498A - Other mechanical com plication of other internal orthopedic devices, implants and grafts, initial encounter (4) Status post open reduction and internal fixation (ORIF) of fracture Status: Chronic Current Visit: Yes Code(s): Z98.890 - Other specified postprocedural states; Z87.81 - Personal history of (healed) traumatic fracture Type of Wound Date of Service: 06/24/19 Chief Complaint: Nonhealing infected ulcer left lateral lower leg by the ankle with exposed hardware from ORIF procedure and nonhealing infected ulcer left medial lower leg by the ankle with exposed hardware from ORIF procedure. History of Wound: Patient suffered a left tibia and fibula fracture on 03/31/19 while ice skating that required an ORIF of the tibia and fibula fractures on 04/11/19. Postoperatively she developed an infection in the incision with r edness and drainage. This necessitated admission to the hospital on 04/26/19 and IV antibiotics started. On 04/27/19 Dr. Khan performed an incision and drainage of the medial and lateral ankle wounds with debridement, washout, wound culture and application of wound VAC. On 04/30/19 she was taken back to surgery for a second debridement, washout culture, application of Integra bilayered skin substitute graft and wound VAC placement by Dr Hairston. Wound cultures showed Enterobacter cloacae and was placed on Cefepime. At discharge, she was placed on Bactrim. She had trouble with Bactrim and it was changed to Cipro. On 06/13/2019 she underwent 1. Surgical preparation left medial lower leg by the ankle with excisional debridement nonhealing infected ulcer with exposed hardware (40 cm2). 2. Partial ostectomy tibia for osteomyelitis. 3. Placement Integra meshed bilayered wound matrix skin substitute graft (40 cm2). 4. Surgical preparation left lateral lower leg by the ankle with excisional debridement nonhealing infected ulcer with exposed hardware (36 cm2). 5. Placement Integra meshed bilayered wound matrix skin substitute graft (36 cm2). Her surgical culture was positive for MRSA and Corynebacterium striatum. I spoke with Dr. Dave and he would like her on Doxycycline and Keflex. She is tolerating the VAC. She has been using surepress to help with edema. Today she denies fever. Her appetite is good. Progress of Wound: Improved. - Physical Exam Vital Signs Temp Pulse Resp BP 97.8 F 103 H 20 H 125/75 H 06/24/19 08:09 06/24/19 08:09 06/24/19 08:09 06/24/19 08:09 General: Alert, Oriented x3, Cooperative HEENT: Atraumatic Oral: Moist Mucosa Lungs: Normal air movement Cardiovascular: Regular rate Extremities: Capillary Refill Less than 3 Seconds, Edema, Peripheral Pulses Normal Skin: Ulcer/ Wound - left medial and lateral ankle/lower leg ulcer Wound Measurements and Assessment WC - Nurse 1 - General Ulcer Measurement Start: 06/14/19 09:31 Freq: Status: Active Protocol: Activity Type Activity Date Activity User E-Sign Co-Sign Detail Recorded Client Recorded Date Recorded By Document 06/24/19 08:09 DL [id number] 06/24/19 08:19 DL 06/24/19 08:09 Wound Center Nurse 1 [Ulcer Assessment] #2 Left Medial Ankle -Current Size (cm) - Length 9.5 -Current Size (cm) - Width 5 -Current Size (cm) - Depth 0.1 -Total Square Cm 47.5 -Photo Taken No -Exudate Amt None Present -Wound Margin Distinct, Outline Attached -Granulation Amt Large (67-100%) -Granulation Quality Red -Necrosis Amt Small (1-33%) -Necrotic Tissue Type Adherent Slough -Structure Exposed N/A -Texture (Dawn-wound Skin Appearance) Scarring -Moisture (Dawn-wound Skin Appearance No Abnormality ) -Color (Dawn-wound Skin Appearance) No Abnormality -Temperature (Dawn-wound Skin No Abnormality Appearance) (Pt Warm) -Tenderness on Palpation (Dawn-wound No Skin Appearance) -Ulcer Cleansing Wound Cleanser -Foul Odor after Cleansing No #1 Left Lateral Ankle -Current Size (cm) - Length 8 -Current Size (cm) - Width 2.7 -Current Size (cm) - Depth 0.1 -Total Square Cm 21.6 -Photo Taken No -Exudate Amt None Present -Wound Margin Distinct, Outline Attached -Granulation Amt Large (67-100%) -Granulation Quality Red -Necrosis Amt Small (1-33%) -Necrotic Tissue Type Adherent Slough -Structure Exposed N/A -Texture (Dawn-wound Skin Appearance) Localized Edema ,Scarring -Moisture (Dawn-wound Skin Appearance No Abnormality ) -Color (Dawn-wound Skin Appearance) No Abnormality -Temperature (Dawn-wound Skin No Abnormality Appearance) (Pt Warm) -Tenderness on Palpation (Dawn-wound No Skin Appearance) -Ulcer Cleansing Wound Cleanser -Foul Odor after Cleansing No [Edema Assessment] -Right Calf (cm) 30 -Right Ankle (cm) 23.8 WC - Nurse 2 - General Ulcer CM Notes Start: 06/14/19 09:31 Freq: Status: Active Protocol: Activity Type Activity Date Activity User E-Sign Co-Sign Detail Recorded Client Recorded Date Recorded By Document 06/24/19 08:33 JF [id number] 06/24/19 08:34 06/24/19 08:33 Wound Center Nurse 2 [Procedure/Treatment] #2 Left Medial Ankle -Correct Patient No -Correct Side, Site, Position No -Correct Procedure No -Procedure Performed No -Wound/Ulcer Outcome Not Healed #1 Left Lateral Ankle -Correct Patient No -Correct Side, Site, Position No -Correct Procedure No -Procedure Performed No -Wound/Ulcer Outcome Not Healed [See Physician Procedure note for Specifics] Pain Scale: 0-10 Numeric [Pain] -Is Patient Pain Free? Yes Musculoskeletal: No Muscle Wasting Neurological: Neuro grossly intact Psych/Mental Status: Normal Affect, Appropriate Debridement Note Post-Debridement Measurements/Treatment - Nurse 2 - General Ulcer CM Notes Start: 06/14/19 09:31 Freq: Status: Active Protocol: Activity Type Activity Date Activity User E-Sign Co-Sign Detail Recorded Client Recorded Date Recorded By Document 06/17/19 11:07 JF [id number] 06/17/19 11:18 Document 06/24/19 08:33 [id number] 06/24/19 08:34 JF 06/17/19 06/24/19 11:07 08:33 Wound Center Nurse 2 #2 Left Medial Ankle -Correct Patient No No -Correct Side, Site, Position No No -Correct Procedure No No -Procedure Performed No No -Wound/Ulcer Outcome Not Healed Not Healed #1 Left Lateral Ankle -Correct Patient No No -Correct Side, Site, Position No No -Correct Procedure No No -Procedure Performed No No -Wound/Ulcer Outcome Not Healed Not Healed Pain Scale: 0-10 Numeric Is Patient Pain Free? 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 Nonhealing infected ulcer left lateral lower leg by the ankle with exposed hardware from ORIF procedure. 2. Nonhealing infected ulcer left medial lower leg by the ankle with exposed hardware from ORIF procedure. 3. Status post open reduction and internal fixation (ORIF) of left tibia-fibula fracture. 4. Exposed orthopaedic hardware. 5. Osteomyelitis. Plan: Ulcers continue to show healing with granulation. There is still exposed bone and hardware but much less. She is getting x-rays today by Orthopedic Service to monitor the healing of the tibia and fibula fractures. She is also on a bone stimulator. Operative cultures showed Enterobacter cloacae. She was treated with Cefepime in the hospital and then discharged on Bactrim. She had trouble with the Bactrim and it was stopped. She was then placed on Cipro. On 06/13/2019 she underwent 1. Surgical preparation left medial lower leg by the ankle with excisional debridement nonhealing infected ulcer with exposed hardware (40 cm2). 2. Partial ostectomy tibia for osteomyelitis. 3. Placement Integra meshed bilayered wound matrix skin substitute graft (40 cm2). 4. Surgical preparation left lateral lower leg by the ankle with excisional debridement nonhealing infected ulcer with exposed hardware (36 cm2). 5. Placement Integra meshed bilayered wound matrix skin substitute graft (36 cm2). Her surgical culture was positive for MRSA and Corynebacterium striatum. I spoke with Dr. Dave and he would like her on Doxycycline (30 days BID) and Keflex (15 days tid). Continue the VAC over the Integra bilayer graft (top silicone layer and bottom layer involving collagen matrix and chondroitin 6- sulfate). Keep left leg elevated when sitting. Will use Surepress for compression to help with edema management. Encourage nutritional supplementation with protein to help the healing process. The goal is to wait to see if the bones heal satisfactory in which case the hardware will then be removed. I will continue wound care with the VAC and continued Integra placement in preparation for an eventual skin graft. However if the bones do not heal, then the hardware will be removed and an external fixator placed. Partial ostectomy would be performed to evaluate for osteomyelitis. At this point, evaluation would need to be done at a tertiary center for a microvascular free tissue transfer. Possible bone graft or bone flap incorporated with the soft tissue free flap may be needed as well. Patient voices understanding. Followup one week. Code Visit [id number]: [id number] Global Visit
[2019-06-28 08:12] VITALS: BP 112/72; PULSE 116; RESP 16; TEMP 36.3; BMI 22.9
[2019-07-01 08:09] VITALS: BP 175/64; PULSE 103; RESP 16; BMI 22.9
--- NOTE | 2019-07-01 17:32 | PN.PCM_ITS ---
Type of Wound Date of Service: 07/01/19 Chief Complaint: Nonhealing infected ulcer left lateral lower leg by the ankle with exposed hardware from ORIF procedure and nonhealing infected ulcer left medial lower leg by the ankle with exposed hardware from ORIF procedure. History of Wound: Patient suffered a left tibia and fibula fracture on 03/31/19 while ice skating that required an ORIF of the tibia and fibula fractures on 04/11/19. Postoperatively she developed an infection in the incision with redness and drainage. This necessitated admission to the hospital on 04/26/19 and IV antibiotics started. On 04/27/19 Dr. Khan performed an incision and drainage of the medial and lateral ankle wounds with debridement, washout, wound culture and application of wound VAC. On 04/30/19 she was taken back to surgery for a second debridement, washout culture, application of Integra bilayered skin substitute graft and wound VAC placement by Dr Hairston. Wound cultures showed Enterobacter cloacae and was placed on Cefepime. At discharge, she was placed on Bactrim. She had trouble with Bactrim and it was changed to Cipro. She had further surgery on 06/13/2019 where she underwent surgical preparation left medial lower leg by the ankle with excisional debridement nonhealing infected ulcer w ith exposed hardware (40 cm2) and partial ostectomy tibia for osteomyelitis and placement Integra meshed bilayered wound matrix skin substitute graft (40 cm2) and surgical preparation left lateral lower leg by the ankle with excisional debridement nonhealing infected ulcer with exposed hardware (36 cm2) and placement Integra meshed bilayered wound matrix skin substitute graft (36 cm2). Her surgical culture was positive for MRSA and Corynebacterium striatum. I spoke with Dr. Dave and he placed her on Doxycycline and Keflex. She is tolerating the VAC. She has been using surepress to help with edema. Today she denies fever. Her appetite is good. Spoke with Dr. Hairston recently who stated her recent x-ray continues to show improved healing. Progress of Wound: Improved. - Physical Exam Vital Signs Temp Pulse Resp BP 97.3 F L 103 H 16 175/64 H 06/28/19 08:12 07/01/19 08:09 07/01/19 08:09 07/01/19 08:09 Wound Measurements and Assessment WC - Nurse 1 - General Ulcer Measurement Start: 06/14/19 09:31 Freq: Status: Active Protocol: Activity Type Activity Date Activity User E-Sign Co-Sign Detail Recorded Client Recorded Date Recorded By Document 07/01/19 08:09 MW [id number] 07/01/19 08:19 MW 07/01/19 08:09 Wound Center Nurse 1 [Ulcer Assessment] #2 Left Medial Ankle -Combined with other wound No -Current Size (cm) - Length 9.8 -Current Size (cm) - Width 3.8 -Current Size (cm) - Depth 0.1 -Total Square Cm 37.24 -Date of Last Picture (Recall this 07/01/19 field) -Photo Taken Yes -Epithelialization None Present -Tunneling No -Undermining/Tunneling No -Circular Undermining No -Classification - Thickness Full Thickness without Exposed Support Structure -Exudate Amt Medium -Exudate Type Serosanguineous -Wound Margin Indistinct, Non -Visible -Granulation Quality N/A -Slough/Fibrin Yes -Necrosis Amt Large (67-100%) -Necrotic Tissue Type Adherent Slough -Structure Exposed N/A -Texture (Dawn-wound Skin Appearance) Assessed, Scarring -Moisture (Dawn-wound Skin Appearance Assessed, ) Weeping -Color (Dawn-wound Skin Appearance) No Abnormality, Assessed -Temperature (Dawn-wound Skin No Abnormality Appearance) (Pt Warm) -Tenderness on Palpation (Dawn-wound No Skin Appearance) -Anesthetic Used 4% Lidocaine Solution #1 Left Lateral Ankle -Combined with other wound No -Current Size (cm) - Length 7.7 -Current Size (cm) - Width 3.0 -Current Size (cm) - Depth 0.1 -Total Square Cm 23.10 -Date of Last Picture (Recall this 07/01/19 field) -Photo Taken Yes -Epithelialization None Present -Tunneling No -Undermining/Tunneling No -Circular Undermining No -Classification - Thickness Full Thickness without Exposed Support Structure -Exudate Amt Medium -Exudate Type Serosanguineous -Wound Margin Indistinct, Non -Visible -Granulation Quality N/A -Slough/Fibrin Yes -Necrosis Amt Large (67-100%) -Necrotic Tissue Type Adherent Slough -Structure Exposed N/A -Texture (Dawn-wound Skin Appearance) Assessed, Scarring -Moisture (Danw-wound Skin Appearance Assessed, ) Weeping -Color (Dawn-wound Skin Appearance) No Abnormality, Assessed -Temperature (Dawn-wound Skin No Abnormality Appearance) (Pt Warm) -Tenderness on Palpation (Dawn-wound Yes Skin Appearance) -Foul Odor after Cleansing No -Anesthetic Used 4% Lidocaine Solution [Edema Assessment] -Lower Limb Edema Present Yes -Left Calf (cm) 31.2 -Left Ankle (cm) 26.5 WC - Nurse 2 - General Ulcer CM Notes Start: 06/14/19 09:31 Freq: Status: Active Protocol: Activity Type Activity Date Activity User E-Sign Co-Sign Detail Recorded Client Recorded Date Recorded By Document 07/01/19 08:49 CESARIO [id number] 07/01/19 08:53 CESARIO 07/01/19 08:49 Wound Center Nurse 2 [Procedure/Treatment] #2 Left Medial Ankle -Time 08:49 -Correct Patient Yes -Correct Side, Site, Position Yes -Correct Procedure Yes -Procedure Performed Yes -Type of Procedure Debridement -Clinical Debridement Muscle -Post Debridement Size (cm) - Length 10.5 -Post Debridement Size (cm) - Width 4 -Post Debridement Size (cm) - Depth 1.0 -Total Square Cm 42.0 -Wound/Ulcer Outcome Not Healed -Ulcer Cleansing Rinsed/ Irrigated with Saline -Foul Odor after Cleansing No -Bioengineered Tissue No -Bleeding Controlled with Pressure -Offloading No -Treatment Response Procedure Tolerated Well #1 Left Lateral Ankle -Time 08:50 -Correct Patient Yes -Correct Side, Site, Position Yes -Correct Procedure Yes -Procedure Performed Yes -Type of Procedure Debridement -Clinical Debridement Muscle -Post Debridement Size (cm) - Length 8.8 -Post Debridement Size (cm) - Width 3.2 -Post Debridement Size (cm) - Depth 0.5 -Total Square Cm 28.16 -Wound/Ulcer Outcome Not Healed -Ulcer Cleansing Rinsed/ Irrigated with Saline -Foul Odor after Cleansing No -Bioengineered Tissue No -Bleeding Controlled with Pressure -Offloading No -Treatment Response Procedure Tolerated Well [See Physician Procedure note for Specifics] Pain Scale: 0-10 Numeric [Pain] -Is Patient Pain Free? Yes Debridement Note Post-Debridement Measurements/Treatment WC - Nurse 2 - General Ulcer CM Notes Start: 06/14/19 09:31 Freq: Status: Active Protocol: Activity Type Activity Date Activity User E-Sign Co-Sign Detail Recorded Client Recorded Date Recorded By Document 06/17/19 11:07 [id number] 06/17/19 11:18 Document 06/24/19 08:33 [id number] 06/24/19 08:34 Document 07/01/19 08:49 [id number] 07/01/19 08:53 06/17/19 06/24/19 07/01/19 11:07 08:33 08:49 Wound Center Nurse 2 #2 Left Medial Ankle -Time 08:49 -Correct Patient No No Yes -Correct Side, Site, Position No No Yes -Correct Procedure No No Yes -Procedure Performed No No Yes -Type of Procedure Debridement -Clinical Debridement Muscle -Post Debridement Size (cm) - Length 10.5 -Post Debridement Size (cm) - Width 4 -Post Debridement Size (cm) - Depth 1.0 -Total Square Cm 42.0 -Wound/Ulcer Outcome Not Healed Not Healed Not Healed -Ulcer Cleansing Rinsed/ Irrigated with Saline -Foul Odor after Cleansing No -Bioengineered Tissue No -Bleeding Controlled with Pressure -Offloading No -Treatment Response Procedure Tolerated Well #1 Left Lateral Ankle -Time 08:50 -Correct Patient No No Yes -Correct Side, Site, Position No No Yes -Correct Procedure No No Yes -Procedure Performed No No Yes -Type of Procedure Debridement -Clinical Debridement Muscle -Post Debridement Size (cm) - Length 8.8 -Post Debridement Size (cm) - Width 3.2 -Post Debridement Size (cm) - Depth 0.5 -Total Square Cm 28.16 -Wound/Ulcer Outcome Not Healed Not Healed Not Healed -Ulcer Cleansing Rinsed/ Irrigated with Saline -Foul Odor after Cleansing No -Bioengineered Tissue No -Bleeding Controlled with Pressure -Offloading No -Treatment Response Procedure Tolerated Well Pain Scale: 0-10 Numeric Is Patient Pain Free? Yes Yes Yes Wound debrided: #1 Left lateral lower leg by ankle. Laterality: Left Wound Grade/Stage: 4. Type of Debridement: Excisional debridement Anesthesia Used: 4% Lidocaine Solution Depth: Down to and including healthy tissue, in the subcutaneous layer, to m uscle, to bone - bone is exposed but not debrided. Percentage of wound debrided: 100 Instrument Used: 5mm curette Tissue Removed: subcutaneous tissue and muscle. Severity: Fat Layer Exposed - muscle is exposed. bone is exposed but not debrided. Amount of bleeding with debridement: Mild Bleeding Controlled with: Pressure Patient tolerated procedure well - Additional Wound Wound debrided: #2 Left medial lower leg by ankle. Laterality: Left Wound Grade/Stage: 4. Type of Debridement: Excisional debridement Anesthesia Used: 4% Lidocaine Solution Depth: Down to and including healthy tissue, in the subcutaneous layer, to muscle, to bone - bone is exposed but not debrided. Percentage of wound debrided: 100 Instrument Used: 5mm curette Tissue Removed: subcutaneous tissue and muscle. Severity: Fat Layer Exposed - muscle is exposed. bone is exposed but not debrided. 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 Nonhealing infected ulcer left lateral lower leg by the ankle with exposed hardware from ORIF procedure. 2. Nonhealing infected ulcer left medial lower leg by the ankle with exposed hardware from ORIF procedure. 3. Status post open reduction and internal fixation (ORIF) of left tibia-fibula fracture. 4. Exposed orthopaedic hardware. 5. Osteomyelitis. Plan: Ulcers continue to show healing with granulation. There is still exposed bone and hardware but much less. She gets x-rays every two weeks by Orthopedic Service to monitor the healing of the tibia and fibula fractures. She is scheduled for a CT scan on 07/08/19. Operative cultures showed Enterobacter cloacae. She was treated with Cefepime in the hospital and then discharged on Bactrim. She had trouble with the Bactrim and it was stopped. She was then placed on Cipro. She had repeat surgery on 06/13/19 and the operative culture showed MRSA and Corynebacterium striatum. She was placed on Doxycycline for 30 days and Keflex for 15 days. Today the silicone layer has been removed from the Integra bilayer skin substitute graft. The surgical clips were removed as well. Granulation tissue continues to show improvement over the exposed bone and hardware. Continue the VAC with adaptic over the bone and hardware. Keep left leg elevated when sitting. Encourage nutritional supplementation with protein to help the healing process. Anticipating the amount of improvement of the healing of the ulcers, will schedule another operative debridement as needed. This will be in preparation for placement of another Integra bilayer graft (top silicone layer and bottom layer involving collagen matrix and chondroitin 6-sulfate). The goal is to wait to see if the bones heal satisfactory in which case the hardware will then be removed. I will then continue wound care with the VAC and continued Integra placement in preparation for an eventual skin graft. However if the bones do not heal, then the hardware will be removed and an external fixator placed. Partial ostectomy would be performed to evaluate for osteomyelitis. At this point, evaluation would need to be done at a tertiary center for a microvascular free tissue transfer. Possible bone graft or bone flap incorporated with the soft tissue free flap may be needed as well. Followup one week. Code Visit [id number]: [id number] Global Visit - ICD-10 - V58.49, L97.926, L08.9, T84.498A, M86.9, S82.202A, S82.402A, Z98.890
[2019-07-04 16:34] VITALS: BP 134/71; PULSE 99; RESP 18; TEMP 37; BMI 22.9
[2019-07-08 08:12] VITALS: BP 137/83; PULSE 112; RESP 16; TEMP 36.6; BMI 22.9
--- NOTE | 2019-07-08 13:14 | PN.PCM_ITS ---
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 Current Visit: Yes Code(s): L97.926 - Non-pressure chronic ulcer of unspecified part of left lower leg with bone involvement without evidence of necrosis Comment: nonhealing infected ulcer left lateral lower leg by the ankle with exposed hardware from ORIF procedure nonhealing infected ulcer left medial lower leg by the ankle with exposed hardware from ORIF procedure (2) Osteomyelitis Status: Chronic Current Visit: Yes Code(s): M86.9 - Osteomyelitis, unspecified (3) Exposed orthopaedic hardware Status: Chronic Current Visit: Yes Code(s): T84.498A - Other mechanical com plication of other internal orthopedic devices, implants and grafts, initial encounter (4) Status post open reduction and internal fixation (ORIF) of fracture Status: Chronic Current Visit: Yes Code(s): Z98.890 - Other specified postprocedural states; Z87.81 - Personal history of (healed) traumatic fracture Type of Wound Date of Service: 07/08/19 Chief Complaint: Nonhealing infected ulcer left lateral lower leg by the ankle with exposed hardware from ORIF procedure and nonhealing infected ulcer left medial lower leg by the ankle with exposed hardware from ORIF procedure. History of Wound: Patient suffered a left tibia and fibula fracture on 03/31/19 while ice skating that required an ORIF of the tibia and fibula fractures on 04/11/19. Postoperatively she developed an infection in the incision with r edness and drainage. This necessitated admission to the hospital on 04/26/19 and IV antibiotics started. On 04/27/19 Dr. Khan performed an incision and drainage of the medial and lateral ankle wounds with debridement, washout, wound culture and application of wound VAC. On 04/30/19 she was taken back to surgery for a second debridement, washout culture, application of Integra bilayered skin substitute graft and wound VAC placement by Dr Hairston. Wound cultures showed Enterobacter cloacae and was placed on Cefepime. At discharge, she was placed on Bactrim. She had trouble with Bactrim and it was changed to Cipro. She had further surgery on 06/13/2019 where she underwent surgical preparation left medial lower leg by the ankle with excisional debridement nonhealing infected ulcer with exposed hardware (40 cm2) and partial ostectomy tibia for osteomyelitis and placement Integra meshed bilayered wound matrix skin substitute graft (40 cm2) and surgical preparation left lateral lower leg by the ankle with excisional debridement nonhealing infected ulcer with exposed hardware (36 cm2) and placement Integra meshed bilayered wound matrix skin substitute graft (36 cm2). Her surgical culture was positive for MRSA and Corynebacterium striatum. I spoke with Dr. Dave and he placed her on Doxycycline and Keflex. She is tolerating the VAC. She has been using surepress to help with edema. Today she denies fever. Her appetite is good. Spoke with Dr. Hairston recently who stated her recent x-ray continues to show improved healing. Progress of Wound: Improved. - Physical Exam Vital Signs Temp Pulse Resp BP 97.9 F 112 H 16 137/83 H 07/08/19 08:12 07/08/19 08:12 07/08/19 08:12 07/08/19 08:12 General: Alert, Oriented x3, Cooperative HEENT: Atraumatic Oral: Moist Mucosa Lungs: Normal air movement Cardiovascular: Regular rate Extremities: Capillary Refill Less than 3 Seconds, Edema, Peripheral Pulses Normal Skin: Ulcer/ Wound - left media and lateral ankle ulcers Wound Measurements and Assessment WC - Nurse 1 - General Ulcer Measurement Start: 06/14/19 09:31 Freq: Status: Active Protocol: Activity Type Activity Date Activity User E-Sign Co-Sign Detail Recorded Client Recorded Date Recorded By Document 07/08/19 08:12 MW [id number] 07/08/19 08:26 MW 07/08/19 08:12 Wound Center Nurse 1 [Ulcer Assessment] #2 Left Medial Ankle -Combined with other wound No -Current Size (cm) - Length 10.0 -Current Size (cm) - Width 3.7 -Current Size (cm) - Depth 0.3 -Total Square Cm 37.00 -Photo Taken No -Epithelialization None Present -Tunneling No -Undermining/Tunneling No -Circular Undermining No -Exudate Amt Medium -Exudate Type Serosanguineous -Wound Margin Distinct, Outline Attached -Granulation Amt Large (67-100%) -Granulation Quality Red -Slough/Fibrin Yes -Necrosis Amt Small (1-33%) -Necrotic Tissue Type Adherent Slough -Structure Exposed N/A -Texture (Dawn-wound Skin Appearance) Assessed, Localized Edema ,Scarring -Moisture (Dawn-wound Skin Appearance No Abnormality, ) Assessed -Color (Dawn-wound Skin Appearance) No Abnormality, Assessed -Temperature (Dawn-wound Skin No Abnormality Appearance) (Pt Warm) -Tenderness on Palpation (Dawn-wound No Skin Appearance) -Ulcer Cleansing soap and water -Foul Odor after Cleansing No -Anesthetic Used 4% Lidocaine Solution #1 Left Lateral Ankle -Combined with other wound No -Current Size (cm) - Length 8.7 -Current Size (cm) - Width 3.5 -Current Size (cm) - Depth 0.1 -Total Square Cm 30.45 -Photo Taken No -Epithelialization None Present -Tunneling No -Undermining/Tunneling No -Circular Undermining No -Exudate Amt Medium -Exudate Type Serosanguineous -Wound Margin Distinct, Outline Attached -Granulation Amt Large (67-100%) -Granulation Quality Red -Slough/Fibrin Yes -Necrosis Amt None Present (0 %) -Necrotic Tissue Type Adherent Slough -Structure Exposed N/A -Texture (Dawn-wound Skin Appearance) Assessed, Localized Edema ,Scarring -Moisture (Dawn-wound Skin Appearance No Abnormality, ) Assessed -Color (Dawn-wound Skin Appearance) No Abnormality, Assessed -Temperature (Dawn-wound Skin No Abnormality Appearance) (Pt Warm) -Tenderness on Palpation (Dawn-wound Yes Skin Appearance) -Ulcer Cleansing soap and water -Foul Odor after Cleansing No -Anesthetic Used 4% Lidocaine Solution [Edema Assessment] -Lower Limb Edema Present Yes -Left Calf (cm) 33.0 -Left Ankle (cm) 26.0 WC - Nurse 2 - General Ulcer CM Notes Start: 06/14/19 09:31 Freq: Status: Active Protocol: Activity Type Activity Date Activity User E-Sign Co-Sign Detail Recorded Client Recorded Date Recorded By Document 07/08/19 08:52 CESARIO [id number] 07/08/19 08:59 CESARIO 07/08/19 08:52 Wound Center Nurse 2 [Procedure/Treatment] #2 Left Medial Ankle -Time 08:53 -Correct Patient Yes -Correct Side, Site, Position Yes -Correct Procedure Yes -Procedure Performed Yes -Type of Procedure Debridement -Clinical Debridement Subcutaneous -Post Debridement Size (cm) - Length 10.0 -Post Debridement Size (cm) - Width 3.7 -Post Debridement Size (cm) - Depth 1.0 -Total Square Cm 37.00 -Wound/Ulcer Outcome Not Healed -Ulcer Cleansing Rinsed/ Irrigated with Saline -Foul Odor after Cleansing No -Bioengineered Tissue No -Bleeding Controlled with Pressure -Offloading No -Treatment Response Procedure Tolerated Well #1 Left Lateral Ankle -Time 08:54 -Correct Patient Yes -Correct Side, Site, Position Yes -Correct Procedure Yes -Procedure Performed Yes -Type of Procedure Debridement -Clinical Debridement Subcutaneous -Post Debridement Size (cm) - Length 8.5 -Post Debridement Size (cm) - Width 3.7 -Post Debridement Size (cm) - Depth 0.4 -Total Square Cm 31.45 -Wound/Ulcer Outcome Not Healed -Ulcer Cleansing Rinsed/ Irrigated with Saline -Foul Odor after Cleansing No -Bioengineered Tissue No -Bleeding Controlled with Pressure -Offloading No -Treatment Response Procedure Tolerated Well [See Physician Procedure note for Specifics] Pain Scale: 0-10 Numeric [Pain] -Is Patient Pain Free? Yes Musculoskeletal: Tenderness Neurological: Neuro grossly intact Psych/Mental Status: Normal Affect, Appropriate Debridement Note Post-Debridement Measurements/Treatment WC - Nurse 2 - General Ulcer CM Notes Start: 06/14/19 09:31 Freq: Status: Active Protocol: Activity Type Activity Date Activity User E-Sign Co-Sign Detail Recorded Client Recorded Date Recorded By Document 06/17/19 11:07 [id number] 06/17/19 11:18 Document 06/24/19 08:33 [id number] 06/24/19 08:34 Document 07/01/19 08:49 [id number] 07/01/19 08:53 Document 07/08/19 08:52 [id number] 07/08/19 08:59 06/17/19 06/24/19 07/01/19 11:07 08:33 08:49 Wound Center Nurse 2 #2 Left Medial Ankle -Time 08:49 -Correct Patient No No Yes -Correct Side, Site, Position No No Yes -Correct Procedure No No Yes -Procedure Performed No No Yes -Type of Procedure Debridement -Clinical Debridement Muscle -Post Debridement Size (cm) - Length 10.5 -Post Debridement Size (cm) - Width 4 -Post Debridement Size (cm) - Depth 1.0 -Total Square Cm 42.0 -Wound/Ulcer Outcome Not Healed Not Healed Not Healed -Ulcer Cleansing Rinsed/ Irrigated with Saline -Foul Odor after Cleansing No -Bioengineered Tissue No -Bleeding Controlled with Pressure -Offloading No -Treatment Response Procedure Tolerated Well #1 Left Lateral Ankle -Time 08:50 -Correct Patient No No Yes -Correct Side, Site, Position No No Yes -Correct Procedure No No Yes -Procedure Performed No No Yes -Type of Procedure Debridement -Clinical Debridement Muscle -Post Debridement Size (cm) - Length 8.8 -Post Debridement Size (cm) - Width 3.2 -Post Debridement Size (cm) - Depth 0.5 -Total Square Cm 28.16 -Wound/Ulcer Outcome Not Healed Not Healed Not Healed -Ulcer Cleansing Rinsed/ Irrigated with Saline -Foul Odor after Cleansing No -Bioengineered Tissue No -Bleeding Controlled with Pressure -Offloading No -Treatment Response Procedure Tolerated Well Pain Scale: 0-10 Numeric Is Patient Pain Free? Yes Yes Yes 07/08/19 08:52 Wound Center Nurse 2 #2 Left Medial Ankle -Time 08:53 -Correct Patient Yes -Correct Side, Site, Position Yes -Correct Procedure Yes -Procedure Performed Yes -Type of Procedure Debridement -Clinical Debridement Subcutaneous -Post Debridement Size (cm) - Length 10.0 -Post Debridement Size (cm) - Width 3.7 -Post Debridement Size (cm) - Depth 1.0 -Total Square Cm 37.00 -Wound/Ulcer Outcome Not Healed -Ulcer Cleansing Rinsed/ Irrigated with Saline -Foul Odor after Cleansing No -Bioengineered Tissue No -Bleeding Controlled with Pressure -Offloading No -Treatment Response Procedure Tolerated Well #1 Left Lateral Ankle -Time 08:54 -Correct Patient Yes -Correct Side, Site, Position Yes -Correct Procedure Yes -Procedure Performed Yes -Type of Procedure Debridement -Clinical Debridement Subcutaneous -Post Debridement Size (cm) - Length 8.5 -Post Debridement Size (cm) - Width 3.7 -Post Debridement Size (cm) - Depth 0.4 -Total Square Cm 31.45 -Wound/Ulcer Outcome Not Healed -Ulcer Cleansing Rinsed/ Irrigated with Saline -Foul Odor after Cleansing No -Bioengineered Tissue No -Bleeding Controlled with Pressure -Offloading No -Treatment Response Procedure Tolerated Well Pain Scale: 0-10 Numeric Is Patient Pain Free? Yes Wound debrided: medial ankle Laterality: Left Type of Debridement: Excisional debridement Anesthesia Used: 5% Lidocaine Gel Depth: Down to and including healthy tissue, in the subcutaneous layer, to muscle Instrument Used: 7mm curette Tissue Removed: subcutaneous tissue and slough Severity: Fat Layer Exposed - hardware exposed Bleeding Controlled with: Pressure Patient tolerated procedure well - Additional Wound Wound debrided: lateral ankle Laterality: Left Type of Debridement: Excisional debridement Anesthesia Used: 5% Lidocaine Gel Depth: Down to and including healthy tissue, in the subcutaneous layer Percentage of wound debrided: 100 Instrument Used: 7mm curette Tissue Removed: subcutaneous tissue and slough Severity: Fat Layer Exposed Amount of bleeding with debridement: Mild Bleeding Controlled with: Pressure Patient tolerated procedure: Patient tolerated procedure well Assessment/Plan Active Problems 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 Nonhealing infected ulcer left lateral lower leg by the ankle with exposed hardware from ORIF procedure. 2. Nonhealing infected ulcer left medial lower leg by the ankle with exposed hardware from ORIF procedure. 3. Status post open reduction and internal fixation (ORIF) of left tibia-fibula fracture. 4. Exposed orthopaedic hardware. 5. Osteomyelitis. Plan: Ulcers continue to show healing with granulation. There is still exposed bone and hardware but much less. She gets x-rays every two weeks by Orthopedic Service to monitor the healing of the tibia and fibula fractures. She is scheduled for a CT scan later today. Operative cultures showed Enterobacter cloacae. She was treated with Cefepime in the hospital and then discharged on Bactrim. She had trouble with the Bactrim and it was stopped. She was then placed on Cipro. She had repeat surgery on 06/13/19 and the operative culture showed MRSA and Corynebacterium striatum. She was placed on Doxycycline for 30 days and Keflex for 15 days. Last week the silicone layer was removed from the Integra bilayer skin substitute graft. Granulation tissue continues to show improvement over the exposed bone and hardware. Continue the VAC with adaptic over the bone and hardware. Keep left leg elevated when sitting. Encourage nutritional supplementation with protein to help the healing process. Anticipating the amount of improvement of the healing of the ulcers, will schedule another operative debridement as needed. This will be in preparation for placement of another Integra bilayer graft (top silicone layer and bottom layer involving collagen matrix and chondroitin 6-sulfate). The goal is to wait to see if the bones heal satisfactory in which case the hardware will then be r emoved. I will then continue wound care with the VAC and continued Integra placement in preparation for an eventual skin graft. However if the bones do not heal, then the hardware will be removed and an external fixator placed. Partial ostectomy would be performed to evaluate for osteomyelitis. At this point, evaluation would need to be done at a tertiary center for a microvascular free tissue transfer. Possible bone graft or bone flap incorporated with the soft tissue free flap may be needed as well. She has Followup one week. Code Visit [id number]: [id number] Global Visit
[2019-07-12 14:10] VITALS: BP 138/89; PULSE 81; RESP 18; TEMP 36.4; BMI 22.9
== END 2019-07-12 23:59 ==
LOC: WC 12:00
PROVIDERS: Visit Provider Nurse Practitioner Family
DX: T84.498A Other mechanical complication of other internal orthopedic devices, implants and grafts, initial encounter (principal); Y79.8 Miscellaneous orthopedic devices associated with adverse incidents, not elsewhere classified; L08.9 Local infection of the skin and subcutaneous tissue, unspecified; S82.202S Unspecified fracture of shaft of left tibia, sequela; S82.402S Unspecified fracture of shaft of left fibula, sequela; V00.21 Ice-skates accident; T81.89XA Other complications of procedures, not elsewhere classified, initial encounter; Z86.14 Personal history of Methicillin resistant Staphylococcus aureus infection; M86.8X6 Other osteomyelitis, lower leg
CPT/HCPCS: 11042; 11043; 11045; 11046; 97605; 97606; 99213; G0463

== ENCOUNTER 2019-08-05 08:00 | Outpatient (RCR) | payer OTHER, SELFPAY ==
[2019-07-13 00:51] VITALS: BP 138/89; PULSE 81; RESP 18; TEMP 36.4
[2019-07-15 13:23] VITALS: BP 146/78; PULSE 82; RESP 16; TEMP 35.7; BMI 22.9
--- NOTE | 2019-07-15 15:03 | PCM.WC.PN ---
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 Current Visit: Yes Code(s): L97.926 - Non-pressure chronic ulcer of unspecified part of left lower leg with bone involvement without evidence of necrosis Comment: nonhealing infected ulcer left lateral lower leg by the ankle with exposed hardware from ORIF procedure nonhealing infected ulcer left medial lower leg by the ankle with exposed hardware from ORIF procedure (2) Status post open reduction and internal fixation (ORIF) of fracture Status: Chronic Current Visit: Yes Code(s): Z98.890 - Other specified postprocedural states; Z87.81 - Personal history of (healed) traumatic fracture (3) Open wound of left lower leg with complication Status: Chronic Current Visit: Yes Code(s): S81.802A - Unspecified open wound, left lower leg, initial encounter Comment: infection and exposed hardware from ORIF procedure (4) Exposed orthopaedic hardware Status: Chronic Current Visit: Yes Code(s): T84.498A - Other mechanical complication of other internal orthopedic devices, implants and grafts, initial encounter (5) Osteomyelitis Status: Chronic Current Visit: Yes Code(s): M86.9 - Osteomyelitis, unspecified Type of Wound Date of Service: 07/15/19 Chief Complaint: Nonhealing infected ulcer left lateral lower leg by the ankle with exposed hardware from ORIF procedure and nonhealing infected ulcer left medial lower leg by the ankle with exposed hardware from ORIF procedure. History of Wound: Patient suffered a left tibia and fibula fracture on 03/31/19 while ice skating that required an ORIF of the tibia and fibula fractures on 04/11/19. Postoperatively she developed an infection in the incision with redness and drainage. This necessitated admission to the hospital on 04/26/19 and IV antibiotics started. On 04/27/19 Dr. Khan performed an incision and drainage of the medial and lateral ankle wounds with debridement, washout, wound culture and application of wound VAC. On 04/30/19 she was taken back to surgery for a second debridement, washout culture, application of Integra bilayered skin substitute graft and wound VAC placement by Dr Hairston. Wound cultures showed Enterobacter cloacae and was placed on Cefepime. At discharge, she was placed on Bactrim. She had trouble with Bactrim and it was changed to Cipro. She had further surgery on 06/13/2019 where she underwent surgical preparation left medial lower leg by the ankle with excisional debridement nonhealing infected ulcer with exposed hardware (40 cm2) and partial ostectomy tibia for osteomyelitis and placement Integra meshed bilayered wound matrix skin substitute graft (40 cm2) and surgical preparation left lateral lower leg by the ankle with excisional debridement nonhealing infected ulcer with exposed hardware (36 cm2) and placement Integra meshed bilayered wound matrix skin substitute graft (36 cm2). Her surgical culture was positive for MRSA and Corynebacterium striatum. I spoke with Dr. Dave and he placed her on Doxycycline and Keflex. She has been tolerating the VAC well, but her ivet wound needs a break. Will do a wound VAC holiday this week and place Aquacel Silver to the opend ulcer areas daily and cover with ABD. She has been using surepress to help with edema. Today she denies fever. Her appetite is good. She saw Dr. Hairston earlier today to discuss her CT results. Her CT shows that the left lateral area is healing well. The left medial area showing slow progression. He discussed several options with her which include an external fixator, or giving a little bit more time along with a bone stimulator. Progress of Wound: Improved. - Physical Exam Vital Signs Temp Pulse Resp BP 96.3 F L 82 16 146/78 H 07/15/19 13:23 07/15/19 13:23 07/15/19 13:23 07/15/19 13:23 General: Alert, Oriented x3, Cooperative HEENT: Atraumatic Oral: Moist Mucosa Lungs: Normal air movement Cardiovascular: Regular rate Extremities: Capillary Refill Less than 3 Seconds, Edema, Peripheral Pulses Normal Skin: Ulcer/ Wound - Left medial leg ulcer with exposed hardware. Left lateral leg with good granulation. Ivet wound mildly irritated from wound VAC drape. Wound Measurements and Assessment WC - Nurse 1 - General Ulcer Measurement Start: 07/15/19 13:23 Freq: Status: Active Protocol: Activity Type Activity Date Activity User E-Sign Co-Sign Detail Recorded Client Recorded Date Recorded By Document 07/15/19 13:23 MW [id number] 07/15/19 13:35 MW 07/15/19 13:23 Wound Center Nurse 1 [Ulcer Assessment] #2 Left Medial Ankle -Combined with other wound No -Current Size (cm) - Length 9.2 -Current Size (cm) - Width 3.4 -Current Size (cm) - Depth 0.1 -Total Square Cm 31.28 -Photo Taken No -Epithelialization Small 1-33% -Tunneling No -Undermining/Tunneling No -Circular Undermining No -Exudate Amt Large -Exudate Type Serosanguineous -Wound Margin Flat & Intact -Granulation Amt Large (67-100%) -Granulation Quality Red -Slough/Fibrin Yes -Necrosis Amt Small (1-33%) -Necrotic Tissue Type Adherent Slough -Structure Exposed N/A -Texture (Ivet-wound Skin Appearance) Assessed, Scarring -Moisture (Ivet-wound Skin Appearance No Abnormality, ) Assessed -Color (Ivet-wound Skin Appearance) No Abnormality, Assessed -Temperature (Ivet-wound Skin No Abnormality Appearance) (Pt Warm) -Tenderness on Palpation (Ivet-wound Yes Skin Appearance) -Ulcer Cleansing soap and water -Foul Odor after Cleansing No -Anesthetic Used 4% Lidocaine Solution #1 Left Lateral Ankle -Combined with other wound No -Current Size (cm) - Length 8.4 -Current Size (cm) - Width 3.2 -Current Size (cm) - Depth 0.1 -Total Square Cm 26.88 -Photo Taken No -Epithelialization Small 1-33% -Tunneling No -Undermining/Tunneling No -Circular Undermining No -Exudate Amt Large -Exudate Type Serosanguineous -Wound Margin Flat & Intact -Granulation Amt Large (67-100%) -Granulation Quality Red -Slough/Fibrin Yes -Necrosis Amt Small (1-33%) -Necrotic Tissue Type Adherent Slough -Structure Exposed N/A -Texture (Ivet-wound Skin Appearance) Assessed, Scarring -Moisture (Ivet-wound Skin Appearance No Abnormality, ) Assessed -Color (Ivet-wound Skin Appearance) No Abnormality, Assessed -Temperature (Ivet-wound Skin No Abnormality Appearance) (Pt Warm) -Tenderness on Palpation (Ivet-wound No Skin Appearance) -Ulcer Cleansing soap and water -Foul Odor after Cleansing No -Anesthetic Used 4% Lidocaine Solution [Edema Assessment] -Lower Limb Edema Present Yes -Left Calf (cm) 32.5 -Point of Measurement (cm from the 25.5 medial instep) WC - Nurse 2 - General Ulcer CM Notes Start: 07/15/19 13:23 Freq: Status: Active Protocol: Activity Type Activity Date Activity User E-Sign Co-Sign Detail Recorded Client Recorded Date Recorded By Document 07/15/19 13:57 [id number] 07/15/19 14:00 07/15/19 13:57 Wound Center Nurse 2 [Procedure/Treatment] #2 Left Medial Ankle -Time 13:58 -Correct Patient Yes -Correct Side, Site, Position Yes -Correct Procedure Yes -Procedure Performed Yes -Type of Procedure Debridement -Clinical Debridement Subcutaneous -Post Debridement Size (cm) - Length 9.3 -Post Debridement Size (cm) - Width 3.4 -Post Debridement Size (cm) - Depth 0.3 -Total Square Cm 31.62 -Wound/Ulcer Outcome Not Healed -Ulcer Cleansing Rinsed/ Irrigated with Saline -Foul Odor after Cleansing No -Bioengineered Tissue No -Bleeding Controlled with Pressure -Offloading No -Treatment Response Procedure Tolerated Well #1 Left Lateral Ankle -Time 13:58 -Correct Patient Yes -Correct Side, Site, Position Yes -Correct Procedure Yes -Procedure Performed Yes -Type of Procedure Debridement -Clinical Debridement Subcutaneous -Post Debridement Size (cm) - Length 8.2 -Post Debridement Size (cm) - Width 4 -Post Debridement Size (cm) - Depth 0.3 -Total Square Cm 32.8 -Wound/Ulcer Outcome Not Healed -Ulcer Cleansing Rinsed/ Irrigated with Saline -Foul Odor after Cleansing No -Bioengineered Tissue No -Bleeding Controlled with Pressure -Offloading No -Treatment Response Procedure Tolerated Well [See Physician Procedure note for Specifics] Pain Scale: 0-10 Numeric [Pain] -Is Patient Pain Free? Yes Musculoskeletal: Tenderness Neurological: Neuro grossly intact Psych/Mental Status: Normal Affect - She is feeling discouraged since her appointment earlier today with Dr. Hairston. She is frustrated with her slow healing process., Appropriate Debridement Note Post-Debridement Measurements/Treatment WC - Nurse 2 - General Ulcer CM Notes Start: 07/15/19 13:23 Freq: Status: Active Protocol: Activity Type Activity Date Activity User E-Sign Co-Sign Detail Recorded Client Recorded Date Recorded By Document 07/15/19 13:57 [id number] 07/15/19 14:00 07/15/19 13:57 Wound Center Nurse 2 #2 Left Medial Ankle -Time 13:58 -Correct Patient Yes -Correct Side, Site, Position Yes -Correct Procedure Yes -Procedure Performed Yes -Type of Procedure Debridement -Clinical Debridement Subcutaneous -Post Debridement Size (cm) - Length 9.3 -Post Debridement Size (cm) - Width 3.4 -Post Debridement Size (cm) - Depth 0.3 -Total Square Cm 31.62 -Wound/Ulcer Outcome Not Healed -Ulcer Cleansing Rinsed/ Irrigated with Saline -Foul Odor after Cleansing No -Bioengineered Tissue No -Bleeding Controlled with Pressure -Offloading No -Treatment Response Procedure Tolerated Well #1 Left Lateral Ankle -Time 13:58 -Correct Patient Yes -Correct Side, Site, Position Yes -Correct Procedure Yes -Procedure Performed Yes -Type of Procedure Debridement -Clinical Debridement Subcutaneous -Post Debridement Size (cm) - Length 8.2 -Post Debridement Size (cm) - Width 4 -Post Debridement Size (cm) - Depth 0.3 -Total Square Cm 32.8 -Wound/Ulcer Outcome Not Healed -Ulcer Cleansing Rinsed/ Irrigated with Saline -Foul Odor after Cleansing No -Bioengineered Tissue No -Bleeding Controlled with Pressure -Offloading No -Treatment Response Procedure Tolerated Well Pain Scale: 0-10 Numeric Is Patient Pain Free? Yes Wound debrided: Medial ankle ulcer Laterality: Left Type of Debridement: Excisional debridement Anesthesia Used: 4% Lidocaine Solution Depth: Down to and including healthy tissue, in the subcutaneous layer Percentage of wound debrided: 100 Instrument Used: 5mm curette Tissue Removed: Subcutaneous tissue and slough Severity: Fat Layer Exposed Amount of bleeding with debridement: Mild Bleeding Controlled with: Pressure Patient tolerated procedure well - Additional Wound Wound debrided: Lateral ankle Laterality: Left Type of Debridement: Excisional debridement Anesthesia Used: 4% Lidocaine Solution Depth: Down to and including healthy tissue, in the subcutaneous layer Percentage of wound debrided: 100 Instrument Used: 5mm curette Tissue Removed: Subcutaneous tissue and slough Severity: Fat Layer Exposed Amount of bleeding with debridement: Mild Bleeding Controlled with: Pressure Patient tolerated procedure: Patient tolerated procedure well Assessment/Plan Active Problems 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 Nonhealing infected ulcer left lateral lower leg by the ankle with exposed hardware from ORIF procedure. 2. Nonhealing infected ulcer left medial lower leg by the ankle with exposed hardware from ORIF procedure. 3. Status post open reduction and internal fixation (ORIF) of left tibia-fibula fracture. 4. Exposed orthopaedic hardware. 5. Osteomyelitis. Plan: Ulcers continue to show healing with granulation. There is still exposed hardware on the medial ulcer, but much less. She gets x-rays every two weeks by Orthopedic Service to monitor the healing of the tibia and fibula fractures. She had a CT last week. Operative cultures showed Enterobacter cloacae. She was treated with Cefepime in the hospital and then discharged on Bactrim. She had trouble with the Bactrim and it was stopped. She was then placed on Cipro. She had repeat surgery on 06/13/19 and the operative culture showed MRSA and Corynebacterium striatum. She was placed on Doxycycline for 30 days and Keflex for 15 days. A couple weeks ago she had the silicone layer was removed from the Integra bilayer skin substitute graft. Granulation tissue continues to show improvement over the exposed bone and hardware. Will do a wound VAC holiday this week and place Aquacel Silver to the opend ulcer areas daily and cover with ABD. She has been using surepress for compression and to help with edema. Keep left leg elevated when sitting. Encourage nutritional supplementation with protein to help the healing process. Anticipating the amount of improvement of the healing of the ulcers, will schedule another operative debridement as needed. This will be in preparation for placement of another Integra bilayer graft (top silicone layer and bottom layer involving collagen matrix and chondroitin 6-sulfate). The goal is to wait to see if the bones heal satisfactory in which case the hardware will then be removed. I will then continue wound care with the VAC and continued Integra placement in preparation for an eventual skin graft. However if the bones do not heal, then the hardware will be removed and an external fixator placed. Partial ostectomy would be performed to evaluate for osteomyelitis. At this point, evaluation would need to be done at a tertiary center for a microvascular free tissue transfer. Possible bone graft or bone flap incorporated with the soft tissue free flap may be needed as well. She saw Dr. Hairston earlier today to discuss her CT results. Her CT shows that the left lateral area is healing well. The left medial area showing slow progression. He discussed several options with her which include an external fixator, or giving a little bit more time along with a bone stimulator. She has Followup one week. Code Visit [id number]: [id number] Global Visit
[2019-07-22 15:18] VITALS: BP 137/88; PULSE 92; RESP 18; TEMP 36.8; BMI 22.9
--- NOTE | 2019-07-22 16:32 | PN.PCM_ITS ---
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 Code(s): L97.926 - Non-pressure chronic ulcer of unspecified part of left lower leg with bone involvement without evidence of necrosis Comment: nonhealing infected ulcer left lateral lower leg by the ankle with exposed hardware from ORIF procedure nonhealing infected ulcer left medial lower leg by the ankle with exposed hardware from ORIF procedure (2) Status post open reduction and internal fixation (ORIF) of fracture Status: Chronic Code(s): Z98.890 - Other specified postprocedural states; Z87.81 - Personal history of (healed) traumatic fracture (3) Open wound of left lower leg with complication Status: Chronic Code(s): S81.802A - Unspecified open wound, left lower leg, initial encounter Comment: infection and exposed hardware from ORIF procedure (4) Exposed orthopaedic hardware Status: Chronic Code(s): T84.498A - Other mechanical complication of other internal orthopedic devices, implants and grafts, initial encounter (5) Osteomyelitis Status: Chronic Code(s): M86.9 - Osteomyelitis, unspecified Type of Wound Date of Service: 07/22/19 Chief Complaint: Nonhealing infected ulcer left lateral lower leg by the ankle with exposed hardware from ORIF procedure and nonhealing infected ulcer left medial lower leg by the ankle with exposed hardware from ORIF procedure. History of Wound: Patient suffered a left tibia and fibula fracture on 03/31/19 while ice skating that required an ORIF of the tibia and fibula fractures on 04/11/19. Postoperatively she developed an infection in the incision with redness and drainage. This necessitated admission to the hospital on 04/26/19 and IV antibiotics started. On 04/27/19 Dr. Khan performed an incision and drainage of the medial and lateral ankle wounds with debridement, washout, wound culture and application of wound VAC. On 04/30/19 she was taken back to surgery for a second debridement, washout culture, application of Integra bilayered skin substitute graft and wound VAC placement by Dr Hairston. Wound cultures showed Enterobacter cloacae and was placed on Cefepime. At discharge, she was placed on Bactrim. She had trouble with Bactrim and it was changed to Cipro. She had further surgery on 06/13/2019 where she underwent surgical preparation left medial lower leg by the ankle with excisional debridement nonhealing infected ulcer with exposed hardware (40 cm2) and partial ostectomy tibia for osteomyelitis and placement Integra meshed bilayered wound matrix skin substitute graft (40 cm2) and surgical preparation left lateral lower leg by the ankle with excisional debridement nonhealing infected ulcer with exposed hardware (36 cm2) and placement Integra meshed bilayered wound matrix skin substitute graft (36 cm2). Her surgical culture was positive for MRSA and Corynebacterium striatum. I spoke with Dr. Dave and he placed her on Doxycycline and Keflex. She has been tolerating the VAC well, but her ivet wound needs a break. Will do a wound VAC holiday again this week and place Aquacel Silver to the opend ulcer areas daily and cover with ABD. She has been using surepress to help with edema. Today she denies fever. Her appetite is good. She saw Dr. Hairston last week to discuss her CT results. Her CT shows that the left lateral area is healing well. The left medial area showing slow progression. He discussed several options with her which include an external fixator, or giving a little bit more time along with a bone stimulator. She went for a second opinion to the [facility]. She is now waiting for the doctor to look through all of her scans and get back with her. Progress of Wound: Improved. - Physical Exam Vital Signs Temp Pulse Resp BP 98.2 F 92 18 137/88 H 07/22/19 15:18 07/22/19 15:18 07/22/19 15:18 07/22/19 15:18 General: Alert, Oriented x3, Cooperative HEENT: Atraumatic Oral: Moist Mucosa Lungs: Normal air movement Cardiovascular: Regular rate Extremities: Capillary Refill Less than 3 Seconds, Edema - Edema is improved this week whild the wound VAC has been off. Skin: Ulcer/ Wound - left medial and left lateral leg/ankle ulcer Wound Measurements and Assessment WC - Nurse 1 - General Ulcer Measurement Start: 07/15/19 13:23 Freq: Status: Active Protocol: Activity Type Activity Date Activity User E-Sign Co-Sign Detail Recorded Client Recorded Date Recorded By Document 07/22/19 15:18 BS [id number] 07/22/19 15:20 BS 07/22/19 15:18 Wound Center Nurse 1 [Ulcer Assessment] #2 Left Medial Ankle -Combined with other wound No -Current Size (cm) - Length 8.7 -Current Size (cm) - Width 3 -Current Size (cm) - Depth 0.3 -Total Square Cm 26.1 -Temperature (Ivet-wound Skin No Abnormality Appearance) (Pt Warm) -Tenderness on Palpation (Ivet-wound No Skin Appearance) -Ulcer Cleansing Rinsed/ Irrigated with Saline -Foul Odor after Cleansing No -Anesthetic Used 4% Lidocaine Solution #1 Left Lateral Ankle -Combined with other wound No -Current Size (cm) - Length 7.3 -Current Size (cm) - Width 2.3 -Current Size (cm) - Depth 0.3 -Total Square Cm 16.79 -Temperature (Ivet-wound Skin No Abnormality Appearance) (Pt Warm) -Tenderness on Palpation (Ivet-wound No Skin Appearance) -Ulcer Cleansing Rinsed/ Irrigated with Saline -Foul Odor after Cleansing No -Anesthetic Used 4% Lidocaine Solution WC - Nurse 2 - General Ulcer CM Notes Start: 07/15/19 13:23 Freq: Status: Active Protocol: Activity Type Activity Date Activity User E-Sign Co-Sign Detail Recorded Client Recorded Date Recorded By Document 07/22/19 15:35 CESARIO [id number] 07/22/19 15:41 CESARIO 07/22/19 15:35 Wound Center Nurse 2 [Procedure/Treatment] #2 Left Medial Ankle -Time 15:36 -Correct Patient Yes -Correct Side, Site, Position Yes -Correct Procedure Yes -Procedure Performed Yes -Type of Procedure Debridement -Clinical Debridement Subcutaneous -Post Debridement Size (cm) - Length 8.8 -Post Debridement Size (cm) - Width 3 -Post Debridement Size (cm) - Depth 0.3 -Total Square Cm 26.4 -Wound/Ulcer Outcome Not Healed -Ulcer Cleansing Rinsed/ Irrigated with Saline -Foul Odor after Cleansing No -Bioengineered Tissue No -Bleeding Controlled with Pressure -Offloading No -Treatment Response Procedure Tolerated Well #1 Left Lateral Ankle -Time 15:36 -Correct Patient Yes -Correct Side, Site, Position Yes -Correct Procedure Yes -Procedure Performed Yes -Type of Procedure Debridement -Clinical Debridement Subcutaneous -Post Debridement Size (cm) - Length 7.5 -Post Debridement Size (cm) - Width 2.5 -Post Debridement Size (cm) - Depth 0.2 -Total Square Cm 18.75 -Wound/Ulcer Outcome Not Healed -Ulcer Cleansing Rinsed/ Irrigated with Saline -Foul Odor after Cleansing No -Bioengineered Tissue No -Bleeding Controlled with Pressure -Offloading No -Treatment Response Procedure Tolerated Well [See Physician Procedure note for Specifics] Pain Scale: 0-10 Numeric [Pain] -Is Patient Pain Free? Yes Musculoskeletal: No Tenderness to Palpation of Joints or Extremities Neurological: Neuro grossly intact Psych/Mental Status: Normal Affect, Appropriate Debridement Note Post-Debridement Measurements/Treatment WC - Nurse 2 - General Ulcer CM Notes Start: 07/15/19 13:23 Freq: Status: Active Protocol: Activity Type Activity Date Activity User E-Sign Co-Sign Detail Recorded Client Recorded Date Recorded By Document 07/15/19 13:57 [id number] 07/15/19 14:00 Document 07/22/19 15:35 [id number] 07/22/19 15:41 07/15/19 07/22/19 13:57 15:35 Wound Center Nurse 2 #2 Left Medial Ankle -Time 13:58 15:36 -Correct Patient Yes Yes -Correct Side, Site, Position Yes Yes -Correct Procedure Yes Yes -Procedure Performed Yes Yes -Type of Procedure Debridement Debridement -Clinical Debridement Subcutaneous Subcutaneous -Post Debridement Size (cm) - Length 9.3 8.8 -Post Debridement Size (cm) - Width 3.4 3 -Post Debridement Size (cm) - Depth 0.3 0.3 -Total Square Cm 31.62 26.4 -Wound/Ulcer Outcome Not Healed Not Healed -Ulcer Cleansing Rinsed/ Rinsed/ Irrigated with Irrigated with Saline Saline -Foul Odor after Cleansing No No -Bioengineered Tissue No No -Bleeding Controlled with Pressure Pressure -Offloading No No -Treatment Response Procedure Procedure Tolerated Well Tolerated Well #1 Left Lateral Ankle -Time 13:58 15:36 -Correct Patient Yes Yes -Correct Side, Site, Position Yes Yes -Correct Procedure Yes Yes -Procedure Performed Yes Yes -Type of Procedure Debridement Debridement -Clinical Debridement Subcutaneous Subcutaneous -Post Debridement Size (cm) - Length 8.2 7.5 -Post Debridement Size (cm) - Width 4 2.5 -Post Debridement Size (cm) - Depth 0.3 0.2 -Total Square Cm 32.8 18.75 -Wound/Ulcer Outcome Not Healed Not Healed -Ulcer Cleansing Rinsed/ Rinsed/ Irrigated with Irrigated with Saline Saline -Foul Odor after Cleansing No No -Bioengineered Tissue No No -Bleeding Controlled with Pressure Pressure -Offloading No No -Treatment Response Procedure Procedure Tolerated Well Tolerated Well Pain Scale: 0-10 Numeric Is Patient Pain Free? Yes Yes Wound debrided: medial ankle ulcer Laterality: Left Type of Debridement: Excisional debridement Anesthesia Used: 5% Lidocaine Gel Depth: Down to and including healthy tissue, in the subcutaneous layer Percentage of wound debrided: 100 Instrument Used: 5mm curette Tissue Removed: Subcutaneous tissue and slough with hardware exposed Severity: Fat Layer Exposed Amount of bleeding with debridement: Mild Bleeding Controlled with: Pressure Patient tolerated procedure well - Additional Wound Wound debrided: lateral ankle ulcer Laterality: Left Type of Debridement: Excisional debridement Anesthesia Used: 5% Lidocaine Gel Depth: Down to and including healthy tissue, in the subcutaneous layer Percentage of wound debrided: 100 Instrument Used: 5mm curette Tissue Removed: subcutaneous tissue and slough Severity: Fat Layer Exposed Amount of bleeding with debridement: Mild Bleeding Controlled with: Pressure Patient tolerated procedure: Patient tolerated procedure well Assessment/Plan Assessment: 1. Nonhealing infected ulcer left lateral lower leg by the ankle with exposed hardware from ORIF procedure. 2. Nonhealing infected ulcer left medial lower leg by the ankle with exposed hardware from ORIF procedure. 3. Status post open reduction and internal fixation (ORIF) of left tibia-fibula fracture. 4. Exposed orthopaedic hardware. 5. Osteomyelitis. Plan: Ulcers continue to show healing with granulation. There is still exposed hardware on the medial ulcer, but much less. She gets x-rays every two weeks by Orthopedic Service to monitor the healing of the tibia and fibula fractures. She had a CT two weeks ago. Operative cultures showed Enterobacter cloacae. She was treated with Cefepime in the hospital and then discharged on Bactrim. She had trouble with the Bactrim and it was stopped. She was then placed on Cipro. She had repeat surgery on 06/13/19 and the operative culture showed MRSA and Corynebacterium striatum. She was placed on Doxycycline for 30 days and Keflex for 15 days. A couple weeks ago she had the silicone layer was removed from the Integra bilayer skin substitute graft. Granulation tissue continues to show improvement over the exposed bone and hardware. Will do a wound VAC holiday again this week and place Aquacel Silver to the opend ulcer areas daily and cover with ABD. She has been using surepress for compression and to help with edema, which is helping. Keep left leg elevated when sitting. Encourage nutritional supplementation with protein to help the healing process. Anticipating the amount of improvement of the healing of the ulcers, will schedule another operative debridement as needed. This will be in preparation for placement of another Integra bilayer graft (top silicone layer and bottom layer involving collagen matrix and chondroitin 6-sulfate). The goal is to wait to see if the bones heal satisfactory in which case the hardware will then be removed. I will then continue wound care with the VAC and continued Integra placement in preparation for an eventual skin graft. However if the bones do not heal, then the hardware will be removed and an external fixator placed. Par tial ostectomy would be performed to evaluate for osteomyelitis. At this point, evaluation would need to be done at a tertiary center for a microvascular free tissue transfer. Possible bone graft or bone flap incorporated with the soft tissue free flap may be needed as well. She saw Dr. Hairston last week to discuss her CT results. Her CT shows that the left lateral area is healing well. The left medial area showing slow progression. He discussed several options with her which include an external fixator, or giving a little bit more time along with a bone stimulator. She has gotten a second opinion from the [facility] (a different Dr. Hairston) and is waiting for them to review all her notes and scans to hear what they say. She has Followup one week. Code Visit [id number]: [id number] Global Visit
[2019-07-29 08:15] VITALS: BP 107/69; PULSE 86; RESP 18; TEMP 36.6; BMI 22.9
--- NOTE | 2019-07-29 17:24 | PN.PCM_ITS ---
Type of Wound Date of Service: 07/29/19 Chief Complaint: Nonhealing infected ulcer left lateral lower leg by the ankle with exposed hardware from ORIF procedure and nonhealing infected ulcer left medial lower leg by the ankle with exposed hardware from ORIF procedure. History of Wound: Patient suffered a left tibia and fibula fracture on 03/31/19 while ice skating that required an ORIF of the tibia and fibula fractures on 04/11/19. Postoperatively she developed an infection in the incision with redness and drainage. This necessitated admission to the hospital on 04/26/19 and IV antibiotics started. On 04/27/19 Dr. Khan performed an incision and drainage of the medial and lateral ankle wounds with debridement, washout, wound culture and application of wound VAC. On 04/30/19 she was taken back to surgery for a second debridement, washout culture, application of Integra bilayered skin substitute graft and wound VAC placement by Dr Hairston. Wound cultures showed Enterobacter cloacae and was placed on Cefepime. At discharge, she was placed on Bactrim. She had trouble with Bactrim and it was changed to Cipro. She had further surgery on 06/13/2019 where she underwent surgical preparation left medial lower leg by the ankle with excisional debridement nonhealing infected ulcer w ith exposed hardware (40 cm2) and partial ostectomy tibia for osteomyelitis and placement Integra meshed bilayered wound matrix skin substitute graft (40 cm2) and surgical preparation left lateral lower leg by the ankle with excisional debridement nonhealing infected ulcer with exposed hardware (36 cm2) and placement Integra meshed bilayered wound matrix skin substitute graft (36 cm2). Her surgical culture was positive for MRSA and Corynebacterium striatum. I spoke with Dr. Dave and he placed her on Doxycycline and Keflex and has finished them. She is back on the Cipro for suppression until the hardware is removed. The VAC had been placed on hold with a VAC holiday and Silver dressings were started since she had returned to work. She has been using surepress to help with edema. Today she denies fever. Her appetite is good. Patient was getting frustrated with the slowness in the healing process and went to [facility] for a second opinion. It was recommended to her that the bones were not healing as well as anticipated and the hardware needed to be removed and an external fixator placed. This would be associated with an eventual microvascular free tissue transfer for soft tissue coverage. Progress of Wound: Improved on the lateral side with persistent hardware exposure on the medial side. - Physical Exam Vital Signs Temp Pulse Resp BP 97.9 F 86 18 107/69 07/29/19 08:15 07/29/19 08:15 07/29/19 08:15 07/29/19 08:15 Wound Measurements and Assessment WC - Nurse 1 - General Ulcer Measurement Start: 07/15/19 13:23 Freq: Status: Active Protocol: Activity Type Activity Date Activity User E-Sign Co-Sign Detail Recorded Client Recorded Date Recorded By Document 07/29/19 08:15 DL [id number] 07/29/19 08:24 DL 07/29/19 08:15 Wound Center Nurse 1 [Ulcer Assessment] #2 Left Medial Ankle -Current Size (cm) - Length 8.2 -Current Size (cm) - Width 2.6 -Current Size (cm) - Depth 0.2 -Total Square Cm 21.32 -Photo Taken No -Exudate Amt Small -Exudate Type Serosanguineous -Wound Margin Distinct, Outline Attached -Granulation Amt Large (67-100%) -Granulation Quality Red -Necrosis Amt Small (1-33%) -Necrotic Tissue Type Adherent Slough -Structure Exposed N/A -Texture (Dawn-wound Skin Appearance) Scarring -Moisture (Dawn-wound Skin Appearance No Abnormality ) -Color (Dawn-wound Skin Appearance) No Abnormality -Temperature (Dawn-wound Skin No Abnormality Appearance) (Pt Warm) -Tenderness on Palpation (Dawn-wound No Skin Appearance) -Ulcer Cleansing Wound Cleanser -Foul Odor after Cleansing No -Anesthetic Used 4% Lidocaine Solution #1 Left Lateral Ankle -Current Size (cm) - Length 7.2 -Current Size (cm) - Width 2 -Current Size (cm) - Depth 0.1 -Total Square Cm 14.4 -Photo Taken No -Exudate Amt Small -Exudate Type Serosanguineous -Wound Margin Distinct, Outline Attached -Granulation Amt Large (67-100%) -Granulation Quality Red -Necrosis Amt None Present (0 %) -Necrotic Tissue Type Adherent Slough -Structure Exposed N/A -Texture (Dawn-wound Skin Appearance) Scarring -Moisture (Dawn-wound Skin Appearance No Abnormality ) -Color (Dawn-wound Skin Appearance) No Abnormality -Temperature (Dawn-wound Skin No Abnormality Appearance) (Pt Warm) -Tenderness on Palpation (Dawn-wound No Skin Appearance) -Ulcer Cleansing Wound Cleanser -Foul Odor after Cleansing No -Anesthetic Used 4% Lidocaine Solution [Edema Assessment] -Left Calf (cm) 29 -Left Ankle (cm) 22.6 WC - Nurse 2 - General Ulcer CM Notes Start: 07/15/19 13:23 Freq: Status: Active Protocol: Activity Type Activity Date Activity User E-Sign Co-Sign Detail Recorded Client Recorded Date Recorded By Document 07/29/19 08:52 [id number] 07/29/19 08:53 [email or web address] 07/29/19 08:52 Wound Center Nurse 2 [Procedure/Treatment] #2 Left Medial Ankle -Time 08:53 -Correct Patient Yes -Correct Side, Site, Position Yes -Correct Procedure Yes -Procedure Performed Yes -Type of Procedure Debridement -Clinical Debridement Subcutaneous -Post Debridement Size (cm) - Length 8.2 -Post Debridement Size (cm) - Width 2.7 -Post Debridement Size (cm) - Depth 0.2 -Total Square Cm 22.14 -Wound/Ulcer Outcome Not Healed -Ulcer Cleansing Rinsed/ Irrigated with Saline -Foul Odor after Cleansing No -Bioengineered Tissue No -Bleeding Controlled with Pressure -Offloading No -Treatment Response Procedure Tolerated Well #1 Left Lateral Ankle -Time 08:53 -Correct Patient Yes -Correct Side, Site, Position Yes -Correct Procedure Yes -Procedure Performed Yes -Type of Procedure Debridement -Clinical Debridement Subcutaneous -Post Debridement Size (cm) - Length 7.2 -Post Debridement Size (cm) - Width 2.1 -Post Debridement Size (cm) - Depth 0.1 -Total Square Cm 15.12 -Wound/Ulcer Outcome Not Healed -Ulcer Cleansing Rinsed/ Irrigated with Saline -Foul Odor after Cleansing No -Bioengineered Tissue No -Bleeding Controlled with Pressure -Offloading No -Treatment Response Procedure Tolerated Well [See Physician Procedure note for Specifics] Pain Scale: 0-10 Numeric [Pain] -Is Patient Pain Free? Yes Debridement Note Post-Debridement Measurements/Treatment CARLA - Nurse 2 - General Ulcer CM Notes Start: 07/15/19 13:23 Freq: Status: Active Protocol: Activity Type Activity Date Activity User E-Sign Co-Sign Detail Recorded Client Recorded Date Recorded By Document 07/15/19 13:57 [id number] 07/15/19 14:00 Document 07/22/19 15:35 [id number] 07/22/19 15:41 Document 07/29/19 08:52 [id number] 07/29/19 08:53 07/15/19 07/22/19 07/29/19 13:57 15:35 08:52 Wound Center Nurse 2 #2 Left Medial Ankle -Time 13:58 15:36 08:53 -Correct Patient Yes Yes Yes -Correct Side, Site, Position Yes Yes Yes -Correct Procedure Yes Yes Yes -Procedure Performed Yes Yes Yes -Type of Procedure Debridement Debridement Debridement -Clinical Debridement Subcutaneous Subcutaneous Subcutaneous -Post Debridement Size (cm) - Length 9.3 8.8 8.2 -Post Debridement Size (cm) - Width 3.4 3 2.7 -Post Debridement Size (cm) - Depth 0.3 0.3 0.2 -Total Square Cm 31.62 26.4 22.14 -Wound/Ulcer Outcome Not Healed Not Healed Not Healed -Ulcer Cleansing Rinsed/ Rinsed/ Rinsed/ Irrigated with Irrigated with Irrigated with Saline Saline Saline -Foul Odor after Cleansing No No No -Bioengineered Tissue No No No -Bleeding Controlled with Pressure Pressure Pressure -Offloading No No No -Treatment Response Procedure Procedure Procedure Tolerated Well Tolerated Well Tolerated Well #1 Left Lateral Ankle -Time 13:58 15:36 08:53 -Correct Patient Yes Yes Yes -Correct Side, Site, Position Yes Yes Yes -Correct Procedure Yes Yes Yes -Procedure Performed Yes Yes Yes -Type of Procedure Debridement Debridement Debridement -Clinical Debridement Subcutaneous Subcutaneous Subcutaneous -Post Debridement Size (cm) - Length 8.2 7.5 7.2 -Post Debridement Size (cm) - Width 4 2.5 2.1 -Post Debridement Size (cm) - Depth 0.3 0.2 0.1 -Total Square Cm 32.8 18.75 15.12 -Wound/Ulcer Outcome Not Healed Not Healed Not Healed -Ulcer Cleansing Rinsed/ Rinsed/ Rinsed/ Irrigated with Irrigated with Irrigated with Saline Saline Saline -Foul Odor after Cleansing No No No -Bioengineered Tissue No No No -Bleeding Controlled with Pressure Pressure Pressure -Offloading No No No -Treatment Response Procedure Procedure Procedure Tolerated Well Tolerated Well Tolerated Well Pain Scale: 0-10 Numeric Is Patient Pain Free? Yes Yes Yes Wound debrided: #1 Left lateral lower leg by ankle. Laterality: Left Wound Grade/Stage: 4. Type of Debridement: Excisional debridement Anesthesia Used: 4% Lidocaine Solution Depth: Down to and including healthy tissue, in the subcutaneous layer Percentage of wound debrided: 100 Instrument Used: 5mm curette Tissue Removed: subcutaneous tissue. Severity: Fat Layer Exposed Amount of bleeding with debridement: Mild Bleeding Controlled with: Pressure Patient tolerated procedure well - Additional Wound Wound debrided: #2 Left medial lower leg by ankle. Laterality: Left Wound Grade/Stage: 4. Type of Debridement: Excisional debridement Anesthesia Used: 4% Lidocaine Solution Depth: Down to and including healthy tissue, in the subcutaneous layer Percentage of wound debrided: 100 Instrument Used: 5mm curette Tissue Removed: subcutaneous tissue. Severity: Fat Layer Exposed - hardware is exposed. Amount of bleeding with debridement: Mild Bleeding Controlled with: Pressure Patient tolerated procedure: Patient tolerated procedure well Assessment/Plan Assessment: 1. Nonhealing infected ulcer left lateral lower leg by the ankle with exposed hardware from ORIF procedure. 2. Nonhealing infected ulcer left medial lower leg by the ankle with exposed hardware from ORIF procedure. 3. Status post open reduction and internal fixation (ORIF) of left tibia-fibula fracture. 4. Exposed orthopaedic hardware. 5. Osteomyelitis. Plan: Ulcers continue to show healing with granulation more so on the lateral side as the medial side still has persistent exposed hardware but a little less. She gets x-rays every two weeks by Orthopedic Service to monitor the healing of the tibia and fibula fractures. She had a CT scan on 07/08/19. It showed minimial callus formation. The patient went to [facility] for a second opinon. It was recommended to the patient to have the hardware removed and an external fixator placed. This will be associated with eventual soft tissue closure with microvascular free tissue transfer. Until these surgeries are performed, she will still followup here at the [facility]. Operative cultures showed Enterobacter cloacae. She was treated with Cefepime in the hospital and then discharged on Bactrim. She had trouble with the Bactrim and it was stopped. She was then placed on Cipro. She had repeat surgery on 06/13/19 and the operative culture showed MRSA and Corynebacterium striatum. She was placed on Doxycycline for 30 days and Keflex for 15 days and has finished them. She is continuing the Cipro for suppression until the hardware is removed. The VAC has been stopped as she is tolerating the Silver dressing changes and is able to work better without the VAC tubing. Keep left leg elevated when sitting. Encourage nutritional supplementation with protein to help the healing process. Followup one week. Code Visit [id number]: [id number] Global Visit - ICD-10 - V58.49, L97.926, L08.9, T84.498A, M86.9, S82.202A, S82.402A, Z98.890
[2019-08-05 08:04] VITALS: BP 125/66; PULSE 87; RESP 16; TEMP 36.3; BMI 22.9
--- NOTE | 2019-08-05 10:09 | PCM.WC.PN ---
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 Current Visit: Yes Code(s): L97.926 - Non-pressure chronic ulcer of unspecified part of left lower leg with bone involvement without evidence of necrosis Comment: nonhealing infected ulcer left lateral lower leg by the ankle with exposed hardware from ORIF procedure nonhealing infected ulcer left medial lower leg by the ankle with exposed hardware from ORIF procedure (2) Status post open reduction and internal fixation (ORIF) of fracture Status: Chronic Current Visit: Yes Code(s): Z98.890 - Other specified postprocedural states; Z87.81 - Personal history of (healed) traumatic fracture (3) Open wound of left lower leg with complication Status: Chronic Current Visit: Yes Code(s): S81.802A - Unspecified open wound, left lower leg, initial encounter Comment: infection and exposed hardware from ORIF procedure (4) Exposed orthopaedic hardware Status: Chronic Current Visit: Yes Code(s): T84.498A - Other mechanical complication of other internal orthopedic devices, implants and grafts, initial encounter (5) Osteomyelitis Status: Chronic Current Visit: Yes Code(s): M86.9 - Osteomyelitis, unspecified Type of Wound Date of Service: 08/05/19 Chief Complaint: Nonhealing infected ulcer left lateral lower leg by the ankle with exposed hardware from ORIF procedure and nonhealing infected ulcer left medial lower leg by the ankle with exposed hardware from ORIF procedure. History of Wound: Patient suffered a left tibia and fibula fracture on 03/31/19 while ice skating that required an ORIF of the tibia and fibula fractures on 04/11/19. Postoperatively she developed an infection in the incision with redness and drainage. This necessitated admission to the hospital on 04/26/19 and IV antibiotics started. On 04/27/19 Dr. Khan performed an incision and drainage of the medial and lateral ankle wounds with debridement, washout, wound culture and application of wound VAC. On 04/30/19 she was taken back to surgery for a second debridement, washout culture, application of Integra bilayered skin substitute graft and wound VAC placement by Dr Hairston. Wound cultures showed Enterobacter cloacae and was placed on Cefepime. At discharge, she was placed on Bactrim. She had trouble with Bactrim and it was changed to Cipro. She had further surgery on 06/13/2019 where she underwent surgical preparation left medial lower leg by the ankle with excisional debridement nonhealing infected ulcer with exposed hardware (40 cm2) and partial ostectomy tibia for osteomyelitis and placement Integra meshed bilayered wound matrix skin substitute graft (40 cm2) and surgical preparation left lateral lower leg by the ankle with excisional debridement nonhealing infected ulcer with exposed hardware (36 cm2) and placement Integra meshed bilayered wound matrix skin substitute graft (36 cm2). Her surgical culture was positive for MRSA and Corynebacterium striatum. I spoke with Dr. Dave and he placed her on Doxycycline and Keflex and has finished them. She is back on the Cipro for suppression until the hardware is removed. The VAC had been placed on hold with a VAC holiday and Silver dressings were started since she had returned to work. She has been using surepress to help with edema. Today she denies fever. Her appetite is good. Patient was getting frustrated with the slowness in the healing process and went to [facility] for a second opinion. It was recommended to her that the bones were not healing as well as anticipated and the hardware needed to be removed and an external fixator placed. This would be associated with an eventual microvascular free tissue transfer for soft tissue coverage. Progress of Wound: Improved. - Physical Exam Vital Signs Temp Pulse Resp BP 97.4 F L 87 16 125/66 H 08/05/19 08:04 08/05/19 08:04 08/05/19 08:04 08/05/19 08:04 General: Alert, Oriented x3, Cooperative HEENT: Atraumatic Oral: Moist Mucosa Lungs: Normal air movement Cardiovascular: Regular rate Extremities: Capillary Refill Less than 3 Seconds, Edema, Peripheral Pulses Normal Skin: Ulcer/ Wound - left medial and lateral leg ulcers Wound Measurements and Assessment WC - Nurse 1 - General Ulcer Measurement Start: 07/15/19 13:23 Freq: Status: Active Protocol: Activity Type Activity Date Activity User E-Sign Co-Sign Detail Recorded Client Recorded Date Recorded By Document 08/05/19 08:04 MW [id number] 08/05/19 08:17 MW 08/05/19 08:04 Wound Center Nurse 1 [Ulcer Assessment] #2 Left Medial Ankle -Combined with other wound No -Current Size (cm) - Length 8.0 -Current Size (cm) - Width 2.5 -Current Size (cm) - Depth 0.1 -Total Square Cm 20.00 -Date of Last Picture (Recall this 08/05/19 field) -Photo Taken Yes -Epithelialization None Present -Tunneling No -Undermining/Tunneling No -Circular Undermining No -Exudate Amt Medium -Exudate Type Serosanguineous -Wound Margin Flat & Intact -Granulation Amt Large (67-100%) -Granulation Quality Red -Slough/Fibrin Yes -Necrosis Amt Small (1-33%) -Necrotic Tissue Type Adherent Slough -Structure Exposed N/A -Texture (Dawn-wound Skin Appearance) Assessed, Localized Edema ,Scarring -Moisture (Dawn-wound Skin Appearance No Abnormality, ) Assessed -Color (Dawn-wound Skin Appearance) No Abnormality, Assessed -Temperature (Dawn-wound Skin No Abnormality Appearance) (Pt Warm) -Tenderness on Palpation (Dawn-wound No Skin Appearance) -Ulcer Cleansing soap and water -Foul Odor after Cleansing No -Anesthetic Used 4% Lidocaine Solution #1 Left Lateral Ankle -Combined with other wound No -Current Size (cm) - Length 6.6 -Current Size (cm) - Width 1.7 -Current Size (cm) - Depth 0.1 -Total Square Cm 11.22 -Date of Last Picture (Recall this 08/05/19 field) -Photo Taken Yes -Epithelialization None Present -Tunneling No -Undermining/Tunneling No -Circular Undermining No -Exudate Amt Medium -Exudate Type Serosanguineous -Wound Margin Flat & Intact -Granulation Amt Large (67-100%) -Granulation Quality Red -Slough/Fibrin Yes -Necrosis Amt None Present (0 %) -Necrotic Tissue Type Adherent Slough -Structure Exposed N/A -Texture (Dawn-wound Skin Appearance) Assessed, Localized Edema ,Scarring -Moisture (Dawn-wound Skin Appearance No Abnormality, ) Assessed -Color (Dawn-wound Skin Appearance) No Abnormality, Assessed -Temperature (Dawn-wound Skin No Abnormality Appearance) (Pt Warm) -Tenderness on Palpation (Dawn-wound No Skin Appearance) -Ulcer Cleansing soap and water -Foul Odor after Cleansing No -Anesthetic Used 4% Lidocaine Solution [Edema Assessment] -Lower Limb Edema Present Yes -Left Calf (cm) 32.5 -Left Ankle (cm) 25.5 WC - Nurse 2 - General Ulcer CM Notes Start: 07/15/19 13:23 Freq: Status: Active Protocol: Activity Type Activity Date Activity User E-Sign Co-Sign Detail Recorded Client Recorded Date Recorded By Document 08/05/19 08:39 [id number] 08/05/19 08:41 08/05/19 08:39 Wound Center Nurse 2 [Procedure/Treatment] #2 Left Medial Ankle -Time 08:40 -Correct Patient Yes -Correct Side, Site, Position Yes -Correct Procedure Yes -Procedure Performed Yes -Type of Procedure Debridement -Clinical Debridement Subcutaneous -Post Debridement Size (cm) - Length 8.2 -Post Debridement Size (cm) - Width 2.4 -Post Debridement Size (cm) - Depth 0.3 -Total Square Cm 19.68 -Wound/Ulcer Outcome Not Healed -Ulcer Cleansing Rinsed/ Irrigated with Saline -Foul Odor after Cleansing No -Bioengineered Tissue No -Bleeding Controlled with Pressure -Offloading No -Treatment Response Procedure Tolerated Well #1 Left Lateral Ankle -Time 08:40 -Correct Patient Yes -Correct Side, Site, Position Yes -Correct Procedure Yes -Procedure Performed Yes -Type of Procedure Debridement -Clinical Debridement Subcutaneous -Post Debridement Size (cm) - Length 7 -Post Debridement Size (cm) - Width 2 -Post Debridement Size (cm) - Depth 0.2 -Total Square Cm 14 -Wound/Ulcer Outcome Not Healed -Ulcer Cleansing Rinsed/ Irrigated with Saline -Foul Odor after Cleansing No -Bioengineered Tissue No -Bleeding Controlled with Pressure -Offloading No -Treatment Response Procedure Tolerated Well [See Physician Procedure note for Specifics] Pain Scale: 0-10 Numeric [Pain] -Is Patient Pain Free? Yes Musculoskeletal: No Muscle Wasting Neurological: Neuro grossly intact Psych/Mental Status: Normal Affect, Appropriate Debridement Note Post-Debridement Measurements/Treatment WC - Nurse 2 - General Ulcer CM Notes Start: 07/15/19 13:23 Freq: Status: Active Protocol: Activity Type Activity Date Activity User E-Sign Co-Sign Detail Recorded Client Recorded Date Recorded By Document 07/15/19 13:57 [id number] 07/15/19 14:00 Document 07/22/19 15:35 [id number] 07/22/19 15:41 Document 07/29/19 08:52 [id number] 07/29/19 08:53 Document 08/05/19 08:39 [id number] 08/05/19 08:41 07/15/19 07/22/19 07/29/19 13:57 15:35 08:52 Wound Center Nurse 2 #2 Left Medial Ankle -Time 13:58 15:36 08:53 -Correct Patient Yes Yes Yes -Correct Side, Site, Position Yes Yes Yes -Correct Procedure Yes Yes Yes -Procedure Performed Yes Yes Yes -Type of Procedure Debridement Debridement Debridement -Clinical Debridement Subcutaneous Subcutaneous Subcutaneous -Post Debridement Size (cm) - Length 9.3 8.8 8.2 -Post Debridement Size (cm) - Width 3.4 3 2.7 -Post Debridement Size (cm) - Depth 0.3 0.3 0.2 -Total Square Cm 31.62 26.4 22.14 -Wound/Ulcer Outcome Not Healed Not Healed Not Healed -Ulcer Cleansing Rinsed/ Rinsed/ Rinsed/ Irrigated with Irrigated with Irrigated with Saline Saline Saline -Foul Odor after Cleansing No No No -Bioengineered Tissue No No No -Bleeding Controlled with Pressure Pressure Pressure -Offloading No No No -Treatment Response Procedure Procedure Procedure Tolerated Well Tolerated Well Tolerated Well #1 Left Lateral Ankle -Time 13:58 15:36 08:53 -Correct Patient Yes Yes Yes -Correct Side, Site, Position Yes Yes Yes -Correct Procedure Yes Yes Yes -Procedure Performed Yes Yes Yes -Type of Procedure Debridement Debridement Debridement -Clinical Debridement Subcutaneous Subcutaneous Subcutaneous -Post Debridement Size (cm) - Length 8.2 7.5 7.2 -Post Debridement Size (cm) - Width 4 2.5 2.1 -Post Debridement Size (cm) - Depth 0.3 0.2 0.1 -Total Square Cm 32.8 18.75 15.12 -Wound/Ulcer Outcome Not Healed Not Healed Not Healed -Ulcer Cleansing Rinsed/ Rinsed/ Rinsed/ Irrigated with Irrigated with Irrigated with Saline Saline Saline -Foul Odor after Cleansing No No No -Bioengineered Tissue No No No -Bleeding Controlled with Pressure Pressure Pressure -Offloading No No No -Treatment Response Procedure Procedure Procedure Tolerated Well Tolerated Well Tolerated Well Pain Scale: 0-10 Numeric Is Patient Pain Free? Yes Yes Yes 08/05/19 08:39 Wound Center Nurse 2 #2 Left Medial Ankle -Time 08:40 -Correct Patient Yes -Correct Side, Site, Position Yes -Correct Procedure Yes -Procedure Performed Yes -Type of Procedure Debridement -Clinical Debridement Subcutaneous -Post Debridement Size (cm) - Length 8.2 -Post Debridement Size (cm) - Width 2.4 -Post Debridement Size (cm) - Depth 0.3 -Total Square Cm 19.68 -Wound/Ulcer Outcome Not Healed -Ulcer Cleansing Rinsed/ Irrigated with Saline -Foul Odor after Cleansing No -Bioengineered Tissue No -Bleeding Controlled with Pressure -Offloading No -Treatment Response Procedure Tolerated Well #1 Left Lateral Ankle -Time 08:40 -Correct Patient Yes -Correct Side, Site, Position Yes -Correct Procedure Yes -Procedure Performed Yes -Type of Procedure Debridement -Clinical Debridement Subcutaneous -Post Debridement Size (cm) - Length 7 -Post Debridement Size (cm) - Width 2 -Post Debridement Size (cm) - Depth 0.2 -Total Square Cm 14 -Wound/Ulcer Outcome Not Healed -Ulcer Cleansing Rinsed/ Irrigated with Saline -Foul Odor after Cleansing No -Bioengineered Tissue No -Bleeding Controlled with Pressure -Offloading No -Treatment Response Procedure Tolerated Well Pain Scale: 0-10 Numeric Is Patient Pain Free? Yes Wound debrided: Medial ankle/lower leg ulcer Laterality: Left Type of Debridement: Excisional debridement Anesthesia Used: 5% Lidocaine Gel Depth: Down to and including healthy tissue, in the subcutaneous layer Percentage of wound debrided: 100 Instrument Used: 5mm curette Tissue Removed: Subcutaneous tissue and slough Severity: Fat Layer Exposed Amount of bleeding with debridement: Mild Bleeding Controlled with: Pressure, Compression and gauze Patient tolerated procedure well - Additional Wound Wound debrided: Lateral ankle/lower leg ulcer Laterality: Left Type of Debridement: Excisional debridement Anesthesia Used: 5% Lidocaine Gel Depth: Down to and including healthy tissue, in the subcutaneous layer Percentage of wound debrided: 100 Instrument Used: 5mm curette Tissue Removed: Subcutaneous tissue and slough Severity: Fat Layer Exposed Amount of bleeding with debridement: Mild Bleeding Controlled with: Pressure Patient tolerated procedure: Patient tolerated procedure well Assessment/Plan Active Problems 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 Nonhealing infected ulcer left lateral lower leg by the ankle with exposed hardware from ORIF procedure. 2. Nonhealing infected ulcer left medial lower leg by the ankle with exposed hardware from ORIF procedure. 3. Status post open reduction and internal fixation (ORIF) of left tibia-fibula fracture. 4. Exposed orthopaedic hardware. 5. Osteomyelitis. Plan: Ulcers continue to show healing with granulation more so on the lateral side as the medial side still has persistent exposed hardware but a little less. She gets x-rays every two weeks by Orthopedic Service to monitor the healing of the tibia and fibula fractures. She had a CT scan on 07/08/19. It showed minimial callus formation. The patient went to [facility] for a second opinon. It was recommended to the patient to have the hardware removed and an external fixator placed. This will be associated with eventual soft tissue closure with microvascular free tissue transfer. Until these surgeries are performed, she will still followup here at the [facility]. Operative cultures showed Enterobacter cloacae. She was treated with Cefepime in the hospital and then discharged on Bactrim. She had trouble with the Bactrim and it was stopped. She was then placed on Cipro. She had repeat surgery on 06/13/19 and the operative culture showed MRSA and Corynebacterium striatum. She was placed on Doxycycline for 30 days and Keflex for 15 days and has finished them. She is continuing the Cipro for suppression until the hardware is removed. The VAC has been stopped as she is tolerating the Silver dressing changes and is able to work better without the VAC tubing. Keep left leg elevated when sitting. Encourage nutritional supplementation with protein to help the healing process. Followup one week. Code Visit [id number]: [id number] Global Visit
== END 2019-08-10 23:59 | disposition home or self-care (01) ==
LOC: WC 08:00
PROVIDERS: Visit Provider Nurse Practitioner Family
DX: T84.498A Other mechanical complication of other internal orthopedic devices, implants and grafts, initial encounter (principal); Y79.8 Miscellaneous orthopedic devices associated with adverse incidents, not elsewhere classified; L08.9 Local infection of the skin and subcutaneous tissue, unspecified; S82.202S Unspecified fracture of shaft of left tibia, sequela; S82.402S Unspecified fracture of shaft of left fibula, sequela; V00.21 Ice-skates accident; T81.89XA Other complications of procedures, not elsewhere classified, initial encounter; Z86.14 Personal history of Methicillin resistant Staphylococcus aureus infection; M86.8X6 Other osteomyelitis, lower leg; R60.9 Edema, unspecified
CPT/HCPCS: 11042; 11045

== ENCOUNTER 2019-08-12 08:11 | Outpatient (RCR) | payer OTHER, SELFPAY ==
[2019-08-11 00:39] VITALS: BP 125/66; PULSE 87; RESP 16; TEMP 36.3
[2019-08-12 08:10] VITALS: BP 128/79; PULSE 83; RESP 18; TEMP 36.8; BMI 22.9
--- NOTE | 2019-08-12 08:53 | PN.PCM_ITS ---
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 Current Visit: Yes Code(s): L97.926 - Non-pressure chronic ulcer of unspecified part of left lower leg with bone involvement without evidence of necrosis Comment: nonhealing infected ulcer left lateral lower leg by the ankle with exposed hardware from ORIF procedure nonhealing infected ulcer left medial lower leg by the ankle with exposed hardware from ORIF procedure (2) Exposed orthopaedic hardware Status: Chronic Current Visit: Yes Code(s): T84.498A - Other mechanical complication of other internal orthopedic devices, implants and grafts, initial encounter (3) Status post open reduction and internal fixation (ORIF) of fracture Status: Chronic Current Visit: Yes Code(s): Z98.890 - Other specified postprocedural states; Z87.81 - Personal history of (healed) traumatic fracture (4) Osteomyelitis Status: Chronic Current Visit: Yes Code(s): M86.9 - Osteomyelitis, unspeci fied (5) Fracture of tibial shaft, left, closed Status: Chronic Current Visit: Yes Qualifiers: Code(s): S82.202A - Unspecified fracture of shaft of left tibia, initial encounter for closed fracture (6) Left fibular fracture Status: Chronic Current Visit: Yes Qualifiers: Code(s): S82.402A - Unspecified fracture of shaft of left fibula, initial encounter for closed fracture Type of Wound Date of Service: 08/12/19 Chief Complaint: Nonhealing infected ulcer left lateral lower leg by the ankle with exposed hardware from ORIF procedure and nonhealing infected ulcer left medial lower leg by the ankle with exposed hardware from ORIF procedure. History of Wound: Patient suffered a left tibia and fibula fracture on 03/31/19 while ice skating that required an ORIF of the tibia and fibula fractures on 04/11/19. Postoperatively she developed an infection in the incision with redness and drainage. This necessitated admission to the hospital on 04/26/19 and IV antibiotics started. On 04/27/19 Dr. Khan performed an incision and drainage of the medial and lateral ankle wounds with debridement, washout, wound culture and application of wound VAC. On 04/30/19 she was taken back to surgery for a second debridement, washout culture, application of Integra bilayered skin substitute graft and wound VAC placement by Dr Hairston. Wound cultures showed Enterobacter cloacae and was placed on Cefepime. At discharge, she was placed on Bactrim. She had trouble with Bactrim and it was changed to Cipro. She had further surgery on 06/13/2019 where she underwent surgical preparation left medial lower leg by the ankle with excisional debridement nonhealing infected ulcer with exposed hardware (40 cm2) and partial ostectomy tibia for osteomyelitis and placement Integra meshed bilayered wound matrix skin substitute graft (40 cm2) and surgical preparation left lateral lower leg by the ankle with excisional debridement nonhealing infected ulcer with exposed hardware (36 cm2) and placement Integra meshed bilayered wound matrix skin substitute graft (36 cm2). Her surgical culture was positive for MRSA and Corynebacterium striatum. I spoke with Dr. Dave and he placed her on Doxycycline and Keflex and has finished them. She is back on the Cipro for suppression until the hardware is removed. The VAC has been discontinued and daily Silver dressings were started since she had returned to work. She has been using surepress to help with edema. Today she denies fever. Her appetite is good. Patient was getting frustrated with the slowness in the healing process and went to [facility] for a second opinion. She sees a Dr. Hairston orthopedic doctor in [place] through [facility] tomorrow to see about having her hardware removed. It was recommended to her that the bones were not healing as well as anticipated and the hardware needed to be removed and an external fixator placed. This would be associated with an eventual microvascular free tissue transfer for soft tissue coverage. Progress of Wound: Improved. - Physical Exam Vital Signs Temp Pulse Resp BP 98.2 F 83 18 128/79 H 08/12/19 08:10 08/12/19 08:10 08/12/19 08:10 08/12/19 08:10 General: Alert, Oriented x3, Cooperative HEENT: Atraumatic Oral: Moist Mucosa Lungs: Normal air movement Cardiovascular: Regular rate Abdomen: Bowel Sounds Present Extremities: Capillary Refill Less than 3 Seconds, Edema - +1 edema Skin: Ulcer/ Wound - Left medial and ankle ulcers Wound Measurements and Assessment WC - Nurse 1 - General Ulcer Measurement Start: 08/12/19 08:10 Freq: Status: Active Protocol: Activity Type Activity Date Activity User E-Sign Co-Sign Detail Recorded Client Recorded Date Recorded By Document 08/12/19 08:10 DL [id number] 08/12/19 08:17 DL 08/12/19 08:10 Wound Center Nurse 1 [Ulcer Assessment] #2 Left Medial Ankle -Current Size (cm) - Length 7.5 -Current Size (cm) - Width 2.3 -Current Size (cm) - Depth 0.2 -Total Square Cm 17.25 -Photo Taken No -Exudate Amt Small -Exudate Type Serosanguineous -Wound Margin Distinct, Outline Attached -Granulation Amt Large (67-100%) -Granulation Quality Hyper- granulation,Red -Necrosis Amt Small (1-33%) -Necrotic Tissue Type Adherent Slough -Structure Exposed N/A -Texture (Dawn-wound Skin Appearance) Scarring -Moisture (Dawn-wound Skin Appearance No Abnormality ) -Color (Dawn-wound Skin Appearance) No Abnormality -Temperature (Dawn-wound Skin No Abnormality Appearance) (Pt Warm) -Tenderness on Palpation (Dawn-wound No Skin Appearance) -Ulcer Cleansing Wound Cleanser -Foul Odor after Cleansing No -Anesthetic Used 4% Lidocaine Solution #1 Left Lateral Ankle -Current Size (cm) - Length 6 -Current Size (cm) - Width 1.3 -Current Size (cm) - Depth 0.1 -Total Square Cm 7.8 -Photo Taken No -Exudate Amt Small -Exudate Type Serosanguineous -Wound Margin Distinct, Outline Attached -Granulation Amt Large (67-100%) -Granulation Quality Red -Necrosis Amt Small (1-33%) -Necrotic Tissue Type Adherent Slough -Structure Exposed N/A -Texture (Dawn-wound Skin Appearance) Scarring -Moisture (Dawn-wound Skin Appearance Dry/Scaly ) -Color (Dawn-wound Skin Appearance) No Abnormality -Temperature (Dawn-wound Skin No Abnormality Appearance) (Pt Warm) -Tenderness on Palpation (Dawn-wound No Skin Appearance) -Ulcer Cleansing Wound Cleanser -Foul Odor after Cleansing No -Anesthetic Used 4% Lidocaine Solution [Edema Assessment] -Left Calf (cm) 32.2 -Left Ankle (cm) 23.5 WC - Nurse 2 - General Ulcer CM Notes Start: 08/12/19 08:10 Freq: Status: Active Protocol: Activity Type Activity Date Activity User E-Sign Co-Sign Detail Recorded Client Recorded Date Recorded By Document 08/12/19 08:44 [email or web address] [id number] 08/12/19 08:45 08/12/19 08:44 Wound Center Nurse 2 [Procedure/Treatment] #2 Left Medial Ankle -Time 08:44 -Correct Patient Yes -Correct Side, Site, Position Yes -Correct Procedure Yes -Procedure Performed Yes -Type of Procedure Debridement -Clinical Debridement Subcutaneous -Post Debridement Size (cm) - Length 7.5 -Post Debridement Size (cm) - Width 2.3 -Post Debridement Size (cm) - Depth 0.3 -Total Square Cm 17.25 -Wound/Ulcer Outcome Not Healed -Ulcer Cleansing Rinsed/ Irrigated with Saline -Foul Odor after Cleansing No -Bioengineered Tissue No -Bleeding Controlled with Pressure -Offloading No -Treatment Response Procedure Tolerated Well #1 Left Lateral Ankle -Time 08:45 -Correct Patient Yes -Correct Side, Site, Position Yes -Correct Procedure Yes -Procedure Performed Yes -Type of Procedure Debridement -Clinical Debridement Subcutaneous -Post Debridement Size (cm) - Length 5.8 -Post Debridement Size (cm) - Width 1.5 -Post Debridement Size (cm) - Depth 0.2 -Total Square Cm 8.70 -Wound/Ulcer Outcome Not Healed -Ulcer Cleansing Rinsed/ Irrigated with Saline -Foul Odor after Cleansing No -Bioengineered Tissue No -Bleeding Controlled with Pressure -Offloading No -Treatment Response Procedure Tolerated Well [See Physician Procedure note for Specifics] Pain Scale: 0-10 Numeric [Pain] -Is Patient Pain Free? Yes Musculoskeletal: Tenderness Neurological: Neuro grossly intact Psych/Mental Status: Normal Affect, Appropriate Debridement Note Post-Debridement Measurements/Treatment WC - Nurse 2 - General Ulcer CM Notes Start: 08/12/19 08:10 Freq: Status: Active Protocol: Activity Type Activity Date Activity User E-Sign Co-Sign Detail Recorded Client Recorded Date Recorded By Document 08/12/19 08:44 [id number] 08/12/19 08:45 08/12/19 08:44 Wound Center Nurse 2 #2 Left Medial Ankle -Time 08:44 -Correct Patient Yes -Correct Side, Site, Position Yes -Correct Procedure Yes -Procedure Performed Yes -Type of Procedure Debridement -Clinical Debridement Subcutaneous -Post Debridement Size (cm) - Length 7.5 -Post Debridement Size (cm) - Width 2.3 -Post Debridement Size (cm) - Depth 0.3 -Total Square Cm 17.25 -Wound/Ulcer Outcome Not Healed -Ulcer Cleansing Rinsed/ Irrigated with Saline -Foul Odor after Cleansing No -Bioengineered Tissue No -Bleeding Controlled with Pressure -Offloading No -Treatment Response Procedure Tolerated Well #1 Left Lateral Ankle -Time 08:45 -Correct Patient Yes -Correct Side, Site, Position Yes -Correct Procedure Yes -Procedure Performed Yes -Type of Procedure Debridement -Clinical Debridement Subcutaneous -Post Debridement Size (cm) - Length 5.8 -Post Debridement Size (cm) - Width 1.5 -Post Debridement Size (cm) - Depth 0.2 -Total Square Cm 8.70 -Wound/Ulcer Outcome Not Healed -Ulcer Cleansing Rinsed/ Irrigated with Saline -Foul Odor after Cleansing No -Bioengineered Tissue No -Bleeding Controlled with Pressure -Offloading No -Treatment Response Procedure Tolerated Well Pain Scale: 0-10 Numeric Is Patient Pain Free? Yes Wound debrided: medial ulcer Laterality: Left Type of Debridement: Excisional debridement Anesthesia Used: 5% Lidocaine Gel Depth: Down to and including healthy tissue, in the subcutaneous layer Percentage of wound debrided: 100 Instrument Used: 5mm curette Tissue Removed: Subcutaneous tissue and slough, hardware is exposed Severity: Fat Layer Exposed Amount of bleeding with debridement: Mild Bleeding Controlled with: Pressure Patient tolerated procedure well - Additional Wound Wound debrided: Lateral ankle ulcer Laterality: Left Type of Debridement: Excisional debridement Anesthesia Used: 5% Lidocaine Gel Depth: Down to and including healthy tissue, in the subcutaneous layer Percentage of wound debrided: 100 Instrument Used: 5mm curette Tissue Removed: Subcutaneous tissue and slough Severity: Fat Layer Exposed Amount of bleeding with debridement: Mild Bleeding Controlled with: Pressure Patient tolerated procedure: Patient tolerated procedure well Assessment/Plan Active Problems 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 Nonhealing infected ulcer left lateral lower leg by the ankle with exposed hardware from ORIF procedure. 2. Nonhealing infected ulcer left medial lower leg by the ankle with exposed hardware from ORIF procedure. 3. Status post open reduction and internal fixation (ORIF) of left tibia-fibula fracture. 4. Exposed orthopaedic hardware. 5. Osteomyelitis. Plan: Ulcers continue to show healing with granulation more so on the lateral side as the medial side still has persistent exposed hardware but a little less. She gets x-rays every two weeks by orthopaedic Service to monitor the healing of the tibia and fibula fractures. She had a CT scan on 07/08/19. It showed minimial callus formation. The patient went to [facility] for a second opinon. It was recommended to the patient to have the hardware removed and an external fixator placed. This will be associated with eventual soft tissue closure with microvascular free tissue transfer. Until these surgeries are performed, she will still followup here at the [facility]. She sees Dr. Hairston at [facility] tomorrow for further evaluation for hardware removal. Operative cultures showed Enterobacter cloacae. She was treated with Cefepime in the hospital and then discharged on Bactrim. She had trouble with the Bactrim and it was stopped. She was then placed on Cipro. She had repeat surgery on 06/13/19 and the operative culture showed MRSA and Corynebacterium striatum. She was placed on Doxycycline for 30 days and Keflex for 15 days and has finished them. She is continuing the Cipro for suppression until the hardware is removed. The VAC has been stopped as she is tolerating the Silver dressing changes and is able to work better without the VAC tubing. Keep left leg elevated when sitting. Encourage nutritional supplementation with protein to help the healing process. Followup one week. Code Visit [id number]: [id number] Global Visit
== END 2019-09-10 23:59 ==
LOC: WC 08:11
PROVIDERS: Visit Provider Nurse Practitioner Family
DX: L97.326 Non-pressure chronic ulcer of left ankle with bone involvement without evidence of necrosis (principal); M86.8X6 Other osteomyelitis, lower leg; T84.498A Other mechanical complication of other internal orthopedic devices, implants and grafts, initial encounter; Y79.8 Miscellaneous orthopedic devices associated with adverse incidents, not elsewhere classified; S82.202S Unspecified fracture of shaft of left tibia, sequela; S82.402S Unspecified fracture of shaft of left fibula, sequela; V00.21 Ice-skates accident; Z86.14 Personal history of Methicillin resistant Staphylococcus aureus infection
CPT/HCPCS: 11042; 11045

== ENCOUNTER → 2019-09-03 | Outpatient (CLI) | payer OTHER, SELFPAY ==
[2019-08-12 08:10] VITALS: BMI 22.9
[2019-09-03 14:19] LABS: Absolute Lymphocyte Count 1.06 X10^3/uL (0.83-4.51); Absolute Neutrophil Count 4.9 X10^3/uL (2.0-7.7); Basophil# 0.05 X10^3/uL; Basophil% 0.7 % (0-1); Eosinophil# 0.27 X10^3/uL; Eosinophils% 3.9 % (0-5); Hematocrit 28.5 % (37-47); Hemoglobin 9.2 g/dL (12.0-15.0); Lymphocyte # 1.06 X10^3/ul (4.0); Lymphocyte % 15.4 % (19-41); Mean Corp Hgb Conc 32.3 g/dL (32-36); Mean Corpuscular Hgb 29.3 pg (27.0-32.0); Mean Corpuscular Volume 90.8 fL (81-99); Mean Platelet Vol. 10.3 fl (6.2-12.0); Monocyte# 0.62 X10^3/uL; NRBC Flagged by Analyzer 0 % (0-5); Neutrophil # 4.89 X10^3/uL (2.7-7.7); Neutrophil % 70.9 % (47-70); Platelet Count 411 K/mm3 (150-450); RBC Distribution Width CV 12.9 % (11.6-14.6); Red Blood Count 3.14 M/mm3 (4.2-5.4); White Blood Count 6.9 K/mm3 (4.4-11.0)
[2019-09-03 14:22] LABS: Erythrocyte Sedimentation Rate 37 mm/hr (0-20)
[2019-09-03 14:51] LABS: ALB/GLOB Ratio 1.1 RATIO (0.9-2.4); AST(SGOT) 26 U/L (15-37); Alanine Aminotransfer ALT/SGPT 26 U/L (13-56); Albumin, Serum 3.5 g/dL (3.2-5.0); Alkaline Phosphatase 151 U/L (45-117); Anion Gap 9 (5-15); BUN 20 mg/dL (7-18); BUN/Creat Ratio 34.2 RATIO (10-20); CRP 5.31 mg/L (0.0-3.0); Calcium,Total 8.8 mg/dL (8.5-10.1); Chloride 104 mmol/L (98-107); Creatinine, Serum 0.58 mg/dL (0.55-1.02); EST Glomerular Filtration Rate 125 mL/min (>60); Est Glom Filt Rate - Afr Amer 151 mL/min (>60); Globulin 3.2 g/dL (2.2-4.2); Glucose 84 mg/dL (74-106); Potassium 4.2 mmol/L (3.5-5.1); Protein, Total 6.7 g/dL (6.4-8.2); Sodium Level 137 mmol/L (136-145)
[2019-09-03 14:55] LABS: Vancomycin, Trough Level 9.4 ug/mL (5.0-15.0)
== END | disposition home or self-care (01) ==
LOC: LABSPEC 14:04
PROVIDERS: Referring Provider Internal Medicine Infectious Disease; Visit Provider Internal Medicine Infectious Disease
DX: M86.9 Osteomyelitis, unspecified (principal)
CPT/HCPCS: 80053; 80202; 85025; 85652; 86140

== ENCOUNTER → 2019-09-10 | Outpatient (CLI) | payer OTHER, SELFPAY ==
[2019-08-12 08:10] VITALS: BMI 22.9
[2019-09-10 14:00] LABS: Absolute Lymphocyte Count 1.09 X10^3/uL (0.83-4.51); Absolute Neutrophil Count 2.3 X10^3/uL (2.0-7.7); Basophil# 0.02 X10^3/uL; Basophil% 0.5 % (0-1); Eosinophil# 0.27 X10^3/uL; Eosinophils% 6.5 % (0-5); Hematocrit 30.2 % (37-47); Hemoglobin 9.7 g/dL (12.0-15.0); Lymphocyte # 1.09 X10^3/ul (4.0); Lymphocyte % 26.1 % (19-41); Mean Corp Hgb Conc 32.1 g/dL (32-36); Mean Corpuscular Hgb 28.7 pg (27.0-32.0); Mean Corpuscular Volume 89.3 fL (81-99); Mean Platelet Vol. 9.9 fl (6.2-12.0); Monocyte# 0.52 X10^3/uL; Monocyte% 12.4 % (0-10); NRBC Flagged by Analyzer 0 % (0-5); Neutrophil # 2.27 X10^3/uL (2.7-7.7); Neutrophil % 54.3 % (47-70); Platelet Count 382 K/mm3 (150-450); RBC Distribution Width CV 12.8 % (11.6-14.6); RBC Distribution Width SD 41.5 fl (35.1-43.9); Red Blood Count 3.38 M/mm3 (4.2-5.4); White Blood Count 4.2 K/mm3 (4.4-11.0)
[2019-09-10 14:05] LABS: Vancomycin, Trough Level 17.8 ug/mL (5.0-15.0)
[2019-09-10 14:06] LABS: ALB/GLOB Ratio 1.2 RATIO (0.9-2.4); AST(SGOT) 98 U/L (15-37); Alanine Aminotransfer ALT/SGPT 82 U/L (13-56); Albumin, Serum 3.6 g/dL (3.2-5.0); Alkaline Phosphatase 178 U/L (45-117); Anion Gap 6 (5-15); BUN 16 mg/dL (7-18); BUN/Creat Ratio 24.6 RATIO (10-20); CRP 3.95 mg/L (0.0-3.0); Calcium,Total 9.1 mg/dL (8.5-10.1); Chloride 106 mmol/L (98-107); Creatinine, Serum 0.65 mg/dL (0.55-1.02); EST Glomerular Filtration Rate 110 mL/min (>60); Erythrocyte Sedimentation Rate 20 mm/hr (0-20); Est Glom Filt Rate - Afr Amer 134 mL/min (>60); Globulin 3.1 g/dL (2.2-4.2); Glucose 83 mg/dL (74-106); Potassium 4.1 mmol/L (3.5-5.1); Protein, Total 6.7 g/dL (6.4-8.2); Sodium Level 139 mmol/L (136-145)
== END | disposition home or self-care (01) ==
LOC: LABSPEC 13:37
PROVIDERS: Referring Provider Internal Medicine Infectious Disease; Visit Provider Internal Medicine Infectious Disease
DX: M86.9 Osteomyelitis, unspecified (principal)
CPT/HCPCS: 80053; 80202; 85025; 85652; 86140

== ENCOUNTER → 2019-09-17 10:48 | Outpatient (CLI) | payer OTHER, SELFPAY ==
[2019-09-17 11:02] LABS: Absolute Lymphocyte Count 1.03 X10^3/uL (0.83-4.51); Absolute Neutrophil Count 3.3 X10^3/uL (2.0-7.7); Basophil# 0.01 X10^3/uL; Basophil% 0.2 % (0-1); Eosinophil# 0.24 X10^3/uL; Eosinophils% 4.7 % (0-5); Hematocrit 31.9 % (37-47); Hemoglobin 10.3 g/dL (12.0-15.0); Lymphocyte # 1.03 X10^3/ul (4.0); Lymphocyte % 20.3 % (19-41); Mean Corp Hgb Conc 32.3 g/dL (32-36); Mean Corpuscular Hgb 28.1 pg (27.0-32.0); Mean Corpuscular Volume 87.2 fL (81-99); Monocyte# 0.48 X10^3/uL; Monocyte% 9.4 % (0-10); NRBC Flagged by Analyzer 0 % (0-5); Neutrophil # 3.31 X10^3/uL (2.7-7.7); Neutrophil % 65.2 % (47-70); Platelet Count 342 K/mm3 (150-450); RBC Distribution Width CV 12.4 % (11.6-14.6); RBC Distribution Width SD 39.9 fl (35.1-43.9); Red Blood Count 3.66 M/mm3 (4.2-5.4); White Blood Count 5.1 K/mm3 (4.4-11.0)
[2019-09-17 11:14] LABS: Erythrocyte Sedimentation Rate 16 mm/hr (0-20)
[2019-09-17 11:24] LABS: ALB/GLOB Ratio 1.2 RATIO (0.9-2.4); AST(SGOT) 148 U/L (15-37); Alanine Aminotransfer ALT/SGPT 106 U/L (13-56); Albumin, Serum 3.6 g/dL (3.2-5.0); Alkaline Phosphatase 197 U/L (45-117); Anion Gap 6 (5-15); BUN 16 mg/dL (7-18); CRP 3.18 mg/L (0.0-3.0); Calcium,Total 8.8 mg/dL (8.5-10.1); Chloride 108 mmol/L (98-107); EST Glomerular Filtration Rate 102 mL/min (>60); Est Glom Filt Rate - Afr Amer 124 mL/min (>60); Glucose 88 mg/dL (74-106); Protein, Total 6.6 g/dL (6.4-8.2); Sodium Level 140 mmol/L (136-145); Vancomycin, Trough Level 24.1 ug/mL (5.0-15.0)
== END ==
PROVIDERS: Referring Provider Internal Medicine Infectious Disease; Visit Provider Internal Medicine Infectious Disease
DX: M86.9 Osteomyelitis, unspecified (principal)
CPT/HCPCS: 80053; 80202; 85025; 85652; 86140

== ENCOUNTER → 2019-09-19 | Outpatient (CLI) | payer OTHER, SELFPAY ==
[2019-09-19 10:42] LABS: Vancomycin, Trough Level 15.7 ug/mL (5.0-15.0)
== END | disposition home or self-care (01) ==
LOC: LABSPEC 10:01
PROVIDERS: Referring Provider Internal Medicine Infectious Disease; Visit Provider Internal Medicine Infectious Disease
DX: M86.9 Osteomyelitis, unspecified (principal)
CPT/HCPCS: 80202

== ENCOUNTER → 2019-09-24 | Outpatient (CLI) | payer OTHER, SELFPAY ==
[2019-09-24 11:11] LABS: Absolute Lymphocyte Count 1.28 X10^3/uL (0.83-4.51); Absolute Neutrophil Count 3.4 X10^3/uL (2.0-7.7); Basophil# 0.01 X10^3/uL; Basophil% 0.2 % (0-1); Eosinophil# 0.22 X10^3/uL; Eosinophils% 4.1 % (0-5); Hematocrit 33.8 % (37-47); Hemoglobin 10.9 g/dL (12.0-15.0); Lymphocyte # 1.28 X10^3/ul (4.0); Lymphocyte % 23.6 % (19-41); Mean Corp Hgb Conc 32.2 g/dL (32-36); Mean Corpuscular Volume 86.9 fL (81-99); Mean Platelet Vol. 9.9 fl (6.2-12.0); Monocyte# 0.51 X10^3/uL; Monocyte% 9.4 % (0-10); NRBC Flagged by Analyzer 0 % (0-5); Neutrophil % 62.5 % (47-70); Platelet Count 322 K/mm3 (150-450); RBC Distribution Width CV 12.6 % (11.6-14.6); Red Blood Count 3.89 M/mm3 (4.2-5.4); White Blood Count 5.4 K/mm3 (4.4-11.0)
[2019-09-24 11:24] LABS: Erythrocyte Sedimentation Rate 22 mm/hr (0-20)
[2019-09-24 11:38] LABS: ALB/GLOB Ratio 1.2 RATIO (0.9-2.4); AST(SGOT) 49 U/L (15-37); Alanine Aminotransfer ALT/SGPT 65 U/L (13-56); Albumin, Serum 3.8 g/dL (3.2-5.0); Alkaline Phosphatase 189 U/L (45-117); Anion Gap 6 (5-15); BUN 21 mg/dL (7-18); BUN/Creat Ratio 28.5 RATIO (10-20); CRP 2.97 mg/L (0.0-3.0); Calcium,Total 9.3 mg/dL (8.5-10.1); Chloride 106 mmol/L (98-107); Creatinine, Serum 0.74 mg/dL (0.55-1.02); EST Glomerular Filtration Rate 95 mL/min (>60); Est Glom Filt Rate - Afr Amer 115 mL/min (>60); Globulin 3.2 g/dL (2.2-4.2); Glucose 88 mg/dL (74-106); Potassium 4.1 mmol/L (3.5-5.1); Sodium Level 138 mmol/L (136-145); Vancomycin, Trough Level 11.2 ug/mL (5.0-15.0)
== END | disposition home or self-care (01) ==
LOC: LABSPEC 10:56
PROVIDERS: Referring Provider Internal Medicine Infectious Disease; Visit Provider Internal Medicine Infectious Disease
DX: M86.9 Osteomyelitis, unspecified (principal)
CPT/HCPCS: 80053; 80202; 85025; 85652; 86140

== ENCOUNTER → 2019-10-01 | Outpatient (CLI) | payer OTHER, SELFPAY ==
[2019-10-01 11:20] LABS: Absolute Lymphocyte Count 1.45 X10^3/uL (0.83-4.51); Absolute Neutrophil Count 4.6 X10^3/uL (2.0-7.7); Basophil# 0.01 X10^3/uL; Basophil% 0.1 % (0-1); Eosinophil# 0.43 X10^3/uL; Eosinophils% 6.1 % (0-5); Hematocrit 33.4 % (37-47); Lymphocyte # 1.45 X10^3/ul (4.0); Lymphocyte % 20.7 % (19-41); Mean Corp Hgb Conc 32.9 g/dL (32-36); Mean Corpuscular Hgb 27.8 pg (27.0-32.0); Mean Corpuscular Volume 84.3 fL (81-99); Mean Platelet Vol. 9.7 fl (6.2-12.0); Monocyte# 0.55 X10^3/uL; Monocyte% 7.8 % (0-10); NRBC Flagged by Analyzer 0 % (0-5); Neutrophil # 4.55 X10^3/uL (2.7-7.7); Platelet Count 341 K/mm3 (150-450); RBC Distribution Width CV 12.8 % (11.6-14.6); RBC Distribution Width SD 38.5 fl (35.1-43.9); Red Blood Count 3.96 M/mm3 (4.2-5.4)
[2019-10-01 11:35] LABS: ALB/GLOB Ratio 1.3 RATIO (0.9-2.4); AST(SGOT) 24 U/L (15-37); Alanine Aminotransfer ALT/SGPT 26 U/L (13-56); Albumin, Serum 3.8 g/dL (3.2-5.0); Alkaline Phosphatase 134 U/L (45-117); Anion Gap 6 (5-15); BUN 16 mg/dL (7-18); BUN/Creat Ratio 22.7 RATIO (10-20); Calcium,Total 9.4 mg/dL (8.5-10.1); Chloride 105 mmol/L (98-107); EST Glomerular Filtration Rate 101 mL/min (>60); Est Glom Filt Rate - Afr Amer 122 mL/min (>60); Globulin 2.9 g/dL (2.2-4.2); Glucose 88 mg/dL (74-106); Potassium 4.2 mmol/L (3.5-5.1); Protein, Total 6.7 g/dL (6.4-8.2); Sodium Level 139 mmol/L (136-145); Vancomycin, Trough Level 14.1 ug/mL (5.0-15.0)
== END | disposition home or self-care (01) ==
LOC: LABSPEC 11:10
PROVIDERS: Referring Provider Internal Medicine Infectious Disease; Visit Provider Internal Medicine Infectious Disease
DX: M86.9 Osteomyelitis, unspecified (principal)
CPT/HCPCS: 80053; 80202; 85025

== ENCOUNTER → 2019-10-04 09:15 | Outpatient (CLI) | payer OTHER, SELFPAY ==
[2019-10-04 10:33] LABS: Vancomycin, Trough Level 14.6 ug/mL (5.0-15.0)
== END ==
PROVIDERS: Referring Provider Internal Medicine Infectious Disease; Visit Provider Internal Medicine Infectious Disease
DX: M86.9 Osteomyelitis, unspecified (principal)
CPT/HCPCS: 80202

== ENCOUNTER → 2019-10-08 09:15 | Outpatient (CLI) | payer OTHER, SELFPAY ==
[2019-10-08 10:26] LABS: Absolute Lymphocyte Count 1.23 X10^3/uL (0.83-4.51); Absolute Neutrophil Count 3.9 X10^3/uL (2.0-7.7); Basophil# 0.01 X10^3/uL; Basophil% 0.2 % (0-1); Eosinophil# 0.26 X10^3/uL; Eosinophils% 4.4 % (0-5); Hematocrit 30.9 % (37-47); Hemoglobin 10.2 g/dL (12.0-15.0); Lymphocyte # 1.23 X10^3/ul (4.0); Lymphocyte % 20.7 % (19-41); Mean Corpuscular Hgb 27.9 pg (27.0-32.0); Mean Corpuscular Volume 84.7 fL (81-99); Mean Platelet Vol. 9.8 fl (6.2-12.0); Monocyte# 0.49 X10^3/uL; Monocyte% 8.3 % (0-10); NRBC Flagged by Analyzer 0 % (0-5); Neutrophil # 3.92 X10^3/uL (2.7-7.7); Neutrophil % 66.1 % (47-70); Platelet Count 301 K/mm3 (150-450); RBC Distribution Width CV 12.8 % (11.6-14.6); RBC Distribution Width SD 38.5 fl (35.1-43.9); Red Blood Count 3.65 M/mm3 (4.2-5.4); White Blood Count 5.9 K/mm3 (4.4-11.0)
[2019-10-08 10:50] LABS: ALB/GLOB Ratio 1.2 RATIO (0.9-2.4); AST(SGOT) 70 U/L (15-37); Alanine Aminotransfer ALT/SGPT 60 U/L (13-56); Albumin, Serum 3.5 g/dL (3.2-5.0); Alkaline Phosphatase 146 U/L (45-117); Anion Gap 5 (5-15); BUN 14 mg/dL (7-18); BUN/Creat Ratio 19.7 RATIO (10-20); Calcium,Total 8.9 mg/dL (8.5-10.1); Chloride 109 mmol/L (98-107); Creatinine, Serum 0.71 mg/dL (0.55-1.02); EST Glomerular Filtration Rate 100 mL/min (>60); Est Glom Filt Rate - Afr Amer 121 mL/min (>60); Globulin 2.9 g/dL (2.2-4.2); Glucose 92 mg/dL (74-106); Potassium 4.1 mmol/L (3.5-5.1); Protein, Total 6.4 g/dL (6.4-8.2); Sodium Level 141 mmol/L (136-145)
[2019-10-08 10:51] LABS: Vancomycin, Trough Level 14.9 ug/mL (5.0-15.0)
== END ==
PROVIDERS: Referring Provider Internal Medicine Infectious Disease; Visit Provider Internal Medicine Infectious Disease
DX: M86.9 Osteomyelitis, unspecified (principal)
CPT/HCPCS: 80053; 80202; 85025

== ENCOUNTER → 2019-10-15 12:48 | Outpatient (CLI) | payer OTHER, SELFPAY ==
[2019-10-15 13:45] LABS: Absolute Lymphocyte Count 1.17 X10^3/uL (0.83-4.51); Absolute Neutrophil Count 4.1 X10^3/uL (2.0-7.7); Basophil# 0.03 X10^3/uL; Basophil% 0.5 % (0-1); Eosinophil# 0.28 X10^3/uL; Eosinophils% 4.6 % (0-5); Hematocrit 34.7 % (37-47); Hemoglobin 11.1 g/dL (12.0-15.0); Lymphocyte # 1.17 X10^3/ul (4.0); Lymphocyte % 19.2 % (19-41); Mean Corpuscular Hgb 27.5 pg (27.0-32.0); Mean Corpuscular Volume 86.1 fL (81-99); Mean Platelet Vol. 10.2 fl (6.2-12.0); Monocyte# 0.51 X10^3/uL; Monocyte% 8.4 % (0-10); NRBC Flagged by Analyzer 0 % (0-5); Neutrophil # 4.07 X10^3/uL (2.7-7.7); Platelet Count 332 K/mm3 (150-450); RBC Distribution Width CV 12.7 % (11.6-14.6); RBC Distribution Width SD 39.5 fl (35.1-43.9); Red Blood Count 4.03 M/mm3 (4.2-5.4); White Blood Count 6.1 K/mm3 (4.4-11.0)
[2019-10-15 13:47] LABS: Erythrocyte Sedimentation Rate 19 mm/hr (0-20)
[2019-10-15 13:58] LABS: Vancomycin, Trough Level 10.8 ug/mL (5.0-15.0)
[2019-10-15 14:04] LABS: ALB/GLOB Ratio 1.2 RATIO (0.9-2.4); AST(SGOT) 44 U/L (15-37); Alanine Aminotransfer ALT/SGPT 54 U/L (13-56); Albumin, Serum 3.8 g/dL (3.2-5.0); Alkaline Phosphatase 138 U/L (45-117); Anion Gap 5 (5-15); BUN 17 mg/dL (7-18); BUN/Creat Ratio 25.3 RATIO (10-20); CRP < 2.90 mg/L (0.0-3.0); Calcium,Total 8.9 mg/dL (8.5-10.1); Chloride 109 mmol/L (98-107); Creatinine, Serum 0.67 mg/dL (0.55-1.02); EST Glomerular Filtration Rate 106 mL/min (>60); Est Glom Filt Rate - Afr Amer 129 mL/min (>60); Globulin 3.1 g/dL (2.2-4.2); Glucose 90 mg/dL (74-106); Potassium 4.1 mmol/L (3.5-5.1); Protein, Total 6.9 g/dL (6.4-8.2); Sodium Level 139 mmol/L (136-145)
== END ==
PROVIDERS: Referring Provider Internal Medicine Infectious Disease; Visit Provider Internal Medicine Infectious Disease
DX: M86.9 Osteomyelitis, unspecified (principal)
CPT/HCPCS: 80053; 80202; 85025; 85652; 86140

== ENCOUNTER → 2019-10-21 09:30 | Outpatient (CLI) | payer OTHER, SELFPAY ==
[2019-10-22 14:25] LABS: Absolute Lymphocyte Count 1.05 X10^3/uL (0.83-4.51); Basophil# 0.04 X10^3/uL; Basophil% 0.7 % (0-1); Eosinophil# 0.28 X10^3/uL; Eosinophils% 4.8 % (0-5); Hematocrit 34.2 % (37-47); Lymphocyte # 1.05 X10^3/ul (4.0); Lymphocyte % 17.9 % (19-41); Mean Corp Hgb Conc 32.2 g/dL (32-36); Mean Corpuscular Hgb 27.4 pg (27.0-32.0); Mean Corpuscular Volume 85.1 fL (81-99); Mean Platelet Vol. 10.3 fl (6.2-12.0); Monocyte# 0.52 X10^3/uL; Monocyte% 8.9 % (0-10); NRBC Flagged by Analyzer 0 % (0-5); Neutrophil # 3.96 X10^3/uL (2.7-7.7); Neutrophil % 67.5 % (47-70); Platelet Count 356 K/mm3 (150-450); RBC Distribution Width CV 12.5 % (11.6-14.6); RBC Distribution Width SD 38.3 fl (35.1-43.9); Red Blood Count 4.02 M/mm3 (4.2-5.4); White Blood Count 5.9 K/mm3 (4.4-11.0)
[2019-10-22 14:30] LABS: Erythrocyte Sedimentation Rate 17 mm/hr (0-20)
[2019-10-22 14:37] LABS: ALB/GLOB Ratio 1.1 RATIO (0.9-2.4); AST(SGOT) 57 U/L (15-37); Alanine Aminotransfer ALT/SGPT 60 U/L (13-56); Albumin, Serum 3.5 g/dL (3.2-5.0); Alkaline Phosphatase 139 U/L (45-117); Anion Gap 10 (5-15); BUN 12 mg/dL (7-18); BUN/Creat Ratio 18.1 RATIO (10-20); CRP 3.59 mg/L (0.0-3.0); Calcium,Total 9.2 mg/dL (8.5-10.1); Chloride 104 mmol/L (98-107); Creatinine, Serum 0.66 mg/dL (0.55-1.02); EST Glomerular Filtration Rate 108 mL/min (>60); Est Glom Filt Rate - Afr Amer 131 mL/min (>60); Globulin 3.2 g/dL (2.2-4.2); Glucose 83 mg/dL (74-106); Potassium 4.2 mmol/L (3.5-5.1); Protein, Total 6.7 g/dL (6.4-8.2); Sodium Level 140 mmol/L (136-145)
--- OUTSIDE RECORDS SUMMARY | 2020-03-24 09:22 | XMS RPT_ITS | CCD ---
:1985 External Reference #:[id number] Author Organization [facility] Care Team Providers Name Role Phone Dimas CASTELLANOS Unavailable Unavailable IMCA Unavailable Unavailable JamesDolores Primary Care Provider Dolores Ramirez Primary Care Provider Allergies Reported Allergen Reaction(s) Severity Date of Onset Location Acetaminophen / Nausea And Vomiting Mild 08-14-2019 - [facility], oxyCODONE [place] ([address]) Medications Current Medications Medication Name Sig Date Prescriber Location Albuterol / ipratropium-albuterol 08-17-2019 [facility], Ipratropium (DUONEB) nebulizer [place] ([address] ) solution 1 ampule ALPRAZolam ALPRAZolam (NIRAVAM) 01-09-2020 [facility], dissolvable tablet [place] ([address] ) 0.25 mg Aspirin aspirin 81 MG EC 08-26-[address] [facility], tablet Take 1 tablet [place] (458 67) by mouth daily 30 tablet 3 08/27/2019 Active 325 mg, Oral, DAILY, First 08-14-2019 - 08-25-2019 [facility], [place] ([address]) dose on 08/17/19 at 1830 Calcium Chloride / lactated ringers 01-09-2020 [place] Lactate / Potassium infusion (09760) Chloride / Sodium Chloride lactated ringers 12-11-2019 [facility], [place] infusion (76797) lactated ringers 11-15-2019 - 11-15-2019 [place] infusion ([address]) Intravenous, at 125 09-27-2019 [place] mL/hr, CONTINUOUS, (40614) Starting Mon09/27/19 at 1730, Post-op lactated ringers 09-27-2019 - 09-27-2019 [facility] [place] infusion ([address]) Intravenous, at 125 08-23-2019 - 08-24-2019 Pepe Verde [facility] [place], [place] mL/hr, CONTINUOUS, (58035) Starting 08/23/19 at 1930 lactated ringers 08-23-2019 - 08-23-2019 Carrington Stephens [facility] [place] infusion ([address]) Intravenous, at 125 08-17-2019 - 08-20-2019 Alberto Rome [facility], [place] mL/hr, CONTINUOUS, (96641) Starting 08/17/19 at 1830 lactated ringers 08-17-2019 - 08-17-2019 [facility] [place] (99360) lactated ringers 08-14-2019 - 08-14-2019 [facility] [place] ([address]) cefepime cefepime (MAXIPIME) 2 g 11-16-2019 Felix Love [place] IVPB extended (mini-bag) (45 237) Cetirizine 10 mg, Oral, DAILY, First 11-15-2019 [place] dose on Mon11/15/19 at 1700 ( 26694) 10 mg, Oral, DAILY, First dose 09-27-2019 [facility] [place], [place] ([address]) on Mon09/27/19 at 1730 cetirizine (ZYRTEC) tablet 10 08-15-2019 - 08-17-2019 [place] ([address]) mg diphenhydrAMINE diphenhydrAMINE (BENADRYL) 01-09-2020 - [facility], injection 12.5 mg 01-09-2020 [place] ([address]) diphenhydrAMINE (BENADRYL) 12-11-2019 - 12-11-2019 [place] injection 12.5 mg (89682) Docusate docusate sodium (COLACE) 01-09-2020 - 02-08-2020 [place] 100 MG capsule Take 1 (04772 ) capsule by mouth 2 times daily 60 capsule 0 01/09/2020 02/08/2020 Active docusate sodium (COLACE) capsule 100 mg 11-17-2019 [place] ([address]) docusate sodium (COLACE) capsule 100 mg 08-20-2019 [place] ([address]) Docusate / sennosides, [facility] 1 tablet, Oral, 2 TIMES 09-27-2019 [place] DAILY, First dose on (80525) Mon09/27/19 at 2100, Post-op sennosides-docusate sodium 08-15-2019 - 08-20-2019 [place] (SENOKOT-S) 8.6-50 MG tablet 2 ( 56812) tablet Enoxaparin enoxaparin (LOVENOX) injection 08-18-2019 [place] ([address]) 40 mg fentaNYL fentaNYL (SUBLIMAZE) injection 01-09-2020 [place] ([address]) 50 mcg fentaNYL (SUBLIMAZE) injection 25 mcg 01-09-2020 [place] ([address]) FLUoxetine FLUoxetine (PROZAC) 07-17-2019 - Mara Bernal [facility] 20 MG capsule Take 1 09-28-2019 [place] ([address]) capsule by mouth daily 30 capsule 5 07/17/2019 Active heparin heparin flush 100 08-15-2019 [facility] th- UNIT/ML injection 250 [place] ([address]) Units hydrALAZINE hydrALAZINE 01-09-2020 [facility]- (APRESOLINE) [place] ([address]) injection 5 mg hydrALAZINE (APRESOLINE) injection 5 mg 12-11-2019 [place] ([address]) HYDROmorphone HYDROmorphone (DILAUDID) 01-09-2020 [place] injection 0.25 mg (13600) HYDROmorphone (DILAUDID) 01-09-2020 [facility], [place] 0.5 mg [place] ([address]) HYDROmorphone (DILAUDID) 12-11-2019 [facility], [place] 1 mg [place] (35987) HYDROmorphone (DILAUDID) 12-11-2019 [facility] [place] 0.5 [place] ([address]) HYDROmorphone (DILAUDID) 12-11-2019 [facility] [place], [place] 0.25 mg [place] (51901) HYDROmorphone (DILAUDID) 08-20-2019 - Heber Hayes [facility] [place]- [place], injection 0.5 mg 08-23-2019 [place] ([address]368) HYDROmorphone (DILAUDID) 08-17-2019 - [facility]3] Eliu [facility] [place], 1 MG/ML injection 08-17-2019 [place] ([address]) HYDROmorphone (DILAUDID) 08-17-2019 - Edwar Yan [facility] [place], injection 0.5 mg 08-17-2019 [place] ([address]234) HYDROmorphone (DILAUDID) 08-16-2019 - Randy Harris [facility] [place]- [place], [place] 1 mg 08-16-2019 [place] (96696) HYDROmorphone (DILAUDID) 08-15-2019 - [facility] [place], [place] 1 mg 08-15-2019 [place] ([address]64) HYDROmorphone HYDROmorphone 09-27-2019 [facility]- (DILAUDID) injection (DILAUDID) [place] ([address]) 0.25 mg 0.25 mg Ibuprofen ibuprofen 12-11-2019 - Miesha Otoole [facility] (ADVIL;MOTRIN) 800 MG 12-21-2019 [place] ([address]) tablet Take 1 tablet by mouth 3 times daily as needed for Pain (with meals) 30 tablet 1 12/11/2019 Active iopamidol iopamidol 08-15-2019 [facility]- (ISOVUE-370) 76 % (ISOVUE-370) 76 % [place] ([address]) injection 100 mL injection 100 mL Ketorolac ketorolac (TORADOL) 08-24-2019 - [facility]- injection 30 mg 08-29-2019 [place] ([address] 7) ketorolac (TORADOL) injection 08-20-2019 - 08-23-2019 [facility] [place] ([address]) 30 mg Labetalol labetalol (NORMODYNE;TRANDATE) 01-09-2020 [place] injection 5 mg (28344) labetalol (NORMODYNE;TRANDATE) injection 5 12-11-2019 [place] ([address]) mg Lidocaine lidocaine PF 1 % injection 01-09-2020 - 01-09-2020 [place] 1 mL (43410) lidocaine PF 1 % injection 1 mL 12-11-2019 - 12-11-2019 [place] ([address]) Meperidine meperidine (DEMEROL) 01-09-2020 Heber Hayes [place] injection 12.5 mg (17444) meperidine (DEMEROL) injection 12-11-2019 Chase Corbett [place] ([address]) 12.5 mg morphine sulfate morphine sulfate 11-16-2019 Fabio A [facility]- (PF) injection 2 mg (PF) injection 2 [place] ([address]) mg Ondansetron ondansetron 01-09-2020 - [facility] (ZOFRAN) injection 01-09-2020 [place] (4 5237) 4 mg ondansetron (ZOFRAN) injection 4 12-11-2019 - 12-11-2019 [place] mg (45512) 4 mg, Intravenous, EVERY 6 HOURS 08-14-2019 [place] PRN, Nausea, Vomiting, Starting (98750) 08/14/19 at 1623 Administer if oral route cannot be used. oxyCODONE oxyCODONE 01-09-2020 - [facility] (ROXICODONE) 01-09-2020 [place] ([address]) immediate release tablet 5 mg POLYETHYLENE GLYCOL polyethylene glycol 11-17-2019 Greg Corbett [facility] 3350 (GLYCOLAX) packet 17 [place] ([address]) g polyethylene glycol (GLYCOLAX) packet 17 g 08-20-2019 [place] ([address]) Promethazine promethazine (PHENERGAN) 01-09-2020 - 01-09-2020 [place] injection 6.25 mg (93204) promethazine (PHENERGAN) 12-11-2019 - 12-11-2019 [place] injection 6.25 mg (63633) promethazine (PHENERGAN) tablet 11-15-2019 [place] 12.5 mg (04367) promethazine (PHENERGAN) tablet 09-27-2019 [place] 12.5 mg (72060) sennosides, [facility] senna (SENOKOT) tablet 8.6 mg 08-20-2019 [place] ([address]) Sodium Chloride sodium chloride flush 0.9 % 01-09-2020 [place] injection 10 mL (22706) 10 mL, Intravenous, EVERY 11-15-2019 [place] 12 HOURS SCHEDULED (2 (61966) times per day), First dose on Mon11/15/19 at 2100 10 mL, Intravenous, PRN, 11-15-2019 [place] [facility], After every IV (36503 ) line use, Starting Mon11/15/19 at 1554 10 mL, Intravenous, EVERY 09-27-2019 [place] 12 HOURS SCHEDULED (2 (75272) times per day), First dose on Mon09/27/19 at 2100, Post-op 10 mL, Intravenous, PRN, 09-27-2019 [place], Starting Mon (20917) 09/27/19 at 1705 After every IV line use Post-op 0.9 % sodium chloride 08-25-2019 - 08-25-2019 Michelle Cabrera [place] bolus ([address]390) 0.9 % sodium chloride 08-17-2019 - 08-18-2019 [place] bolus (26984) sodium chloride flush 0.9 08-15-2019 [place] % injection 10 mL (52146) sodium chloride flush 0.9 08-15-2019 [place] % injection 10 mL (72284) 10 mL, Intravenous, EVERY 08-14-2019 [place] 12 HOURS SCHEDULED (2 (40605) times per day), First dose on Mon08/14/19 at 2100 10 mL, Intravenous, PRN, 08-14-2019 [place], After every IV (34775 ) line use, Starting 08/14/19 at 1623 vancomycin (VANCOCIN) vancomycin (VANCOCIN) 11-15-2019 [place] 1,250 mg in dextrose 5 % 1,250 mg in dextrose 5 % (79651) 250 mL IVPB 250 mL IVPB vancomycin (VANCOCIN) 1,250 mg 08-17-2019 - 08-27-2019 [place] ([address]) in dextrose 5 % 250 mL IVPB vancomycin (VANCOCIN) vancomycin 08-27-2019 Victor Manuel K Mimi [facility], 1,500 mg in dextrose (VANCOCIN) 1,500 mg [place] (59272) 5 % 250 mL IVPB in dextrose 5 % 250 mL IVPB Completed/Discontinuned Medications Medication Name Sig Date Prescriber Location Acetaminophen acetaminophen (TYLENOL) 01-09-2020 - [facility], tablet 1,000 mg 01-09-2020 [place] ([address]) acetaminophen (TYLENOL) tablet 12-11-2019 - 12-11-2019 [place], [place] 1,000 mg (22632) 650 mg, Oral, EVERY 4 HOURS PRN, 11-15-2019 [place] Pain Mild (1-3), Fever, Fever (4 5237) >100.5 F (38 C), Starting 11/15/19 at 1554 Maximum dose of acetaminophen is 4000 mg from all sources in 24 hours. acetaminophen (TYLENOL) tablet 11-15-2019 - 11-15-2019 [place], [place] 1,000 mg (10433) 650 mg, Oral, EVERY 4 HOURS PRN, 09-27-2019 [place] Other, Pain (1-10), Starting Fri (37967) 09/27/19 at 1705 Give in addition to any other pain medication ordered at same time for any pain indication. Post-op acetaminophen (TYLENOL) tablet 09-27-2019 - 09-27-2019 [place] 1,000 mg (37023) acetaminophen (TYLENOL) tablet 08-23-2019 - 08-24-2019 [place] 650 mg (14149) acetaminophen (TYLENOL) tablet 08-19-2019 - 08-20-2019 [facility], [place] 650 mg (29552) acetaminophen (OFIRMEV) infusion 08-17-2019 - - [facility], [place] 1,000 mg (37713) acetaminophen (TYLENOL) tablet 08-14-2019 - - [facility], [place] 1,000 mg (05607) Acetaminophen / HYDROcodone-acetaminophen 01-09-2020 - Sushila Cochran Caryn HYDROcodone (NORCO) 5-325 MG per tablet 01-16-2020 [facility], Indications: [place] ([address]) 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 28 tablet 0 01/09/2020 01/16/2020 Active HYDROcodone-acetaminophen (NORCO) 12-11-2019 - Miesha Segundomao [facility]- 5-325 MG per tablet Indications: 12-18-2019 [place] ([address]) S/P split thickness skin graft Take 1 tablet by mouth every 6 hours as needed for Pain for up to 7 days. Intended supply: 7 days. Take lowest dose possible to manage pain 28 tablet 0 12/11/2019 12/18/2019 Active HYDROcodone-acetaminophen (NORCO) 11-15-2019 [facility]- 5-325 MG per tablet 1 [place] ([address]) HYDROcodone-acetaminophen (NORCO) 11-15-2019 - Steven Knutson [facility]- 5-325 MG per tablet Indications: 11-22-2019 [place] ([address]) Closed torus fracture of distal end of left tibia with nonunion Take 1 tablet by mouth every 4 hours as needed for Pain for up to 7 days. Intended supply: 7 days. Take lowest dose possible to manage pain 42 tablet 0 11/15/2019 11/22/2019 Active HYDROcodone-acetaminophen (NORCO) 09-28-2019 - Michelle Cabrera [facility]- 5-325 MG per tablet Indications: 10-05-2019 [place] ([address]) Wound dehiscence Take 1 tablet by mouth every 6 hours as needed for Pain for up to 7 days. 28 tablet 0 09/28/2019 10/05/2019 Active HYDROcodone-acetaminophen (NORCO) 09-27-2019 [facility]- 5-325 MG per tablet 1 [place] ([address]644) HYDROcodone-acetaminophen (NORCO) 08-27-2019 - Samuel Diogenes Hieu [facility] 5-325 MG per tablet Indications: 01-09-2020 [place] ([address]) Closed torus fracture of distal end of left tibia with delayed healing, subsequent encounter Take 1 tablet by mouth every 6 hours as needed for Pain for up to 7 days. 28 tablet 0 08/27/2019 09/03/2019 Active HYDROcodone-acetaminophen (NORCO) 08-20-2019 [facility] 5-325 MG per tablet 1 [place] ([address]) HYDROcodone-acetaminophen (NORCO) 08-19-2019 - [facility] 5-325 MG per tablet 1 tablet 08-27-2019 [place] ([address]) alteplase (CATHFLO) alteplase (CATHFLO) 11-16-2019 - M [facility], injection 1 mg injection 1 mg 11-16-2019 [place] (51941) alteplase (CATHFLO) injection 1 11-16-2019 - 11-16-2019 [facility], [place] ([address]) mg ceFAZolin 2 g, Intravenous, EVERY 8 09-27-2019 - 09-28-2019 [facility], [place] HOURS, 3 doses, First dose ( 01700) on Mon09/27/19 at 1730, Last dose on Mon09/28/19 at 0930, Post-op 2 g, Intravenous, EVERY 8 08-14-2019 - 08-15-2019 German Cabrera [place] HOURS, First dose on Mon (91560) 08/14/19 at 1645, Until Discontinued ceFAZolin (ANCEF) 2 g in 08-14-2019 - 08-14-2019 Mando Jing [facility], [place] dextrose 4 % 100 mL IVPB (81925) (premix) ceFAZolin (ANCEF) ceFAZolin (ANCEF) 12-11-2019 - Jesse R Boris [facility]- 2 g in dextrose 5 2 g in dextrose 5 12-11-2019 [place] (09747) % 100 mL IVPB % 100 mL IVPB celecoxib celecoxib 01-09-2020 - [facility]- (CELEBREX) capsule 01-09-2020 [place] (4 9851) 400 mg celecoxib (CELEBREX) capsule 11-15-2019 - 11-15-2019 [facility], [place] ([address]) 400 mg celecoxib (CELEBREX) capsule 08-14-2019 - 08-14-2019 [facility], [place] ([address]) 400 mg Ciprofloxacin ciprofloxacin (CIPRO) 05-22-2019 - Historical [facility]- 500 MG tablet TAKE 1 08-27-2019 [place] ([address]) TABLET BY MOUTH TWICE Historical DAILY 0 05/22/2019 Provider 08/27/2019 Discontinued (Stop Taking at Discharge) Famotidine famotidine (PEPCID) 01-09-2020 - [facility]- tablet 20 mg 01-09-2020 [place] ([address]) famotidine (PEPCID) tablet 20 12-11-2019 - 12-11-2019 [place] ([address]) mg famotidine (PEPCID) tablet 20 11-15-2019 - 11-15-2019 [place] ([address]65) mg famotidine (PEPCID) tablet 20 09-27-2019 - 09-27-2019 [place] ([address]65) mg famotidine (PEPCID) tablet 20 08-14-2019 - 08-14-2019 [place] ([address]) mg gabapentin gabapentin (NEURONTIN) 01-09-2020 - 01-09-2020 [place] capsule 300 mg (08089) gabapentin (NEURONTIN) 11-15-2019 - 11-15-2019 [place] capsule 300 mg (60274) gabapentin (NEURONTIN) 09-27-2019 - 09-27-2019 Jesse R Boris [place] capsule 300 mg (08280) gabapentin (NEURONTIN) 08-14-2019 - 08-14-2019 [place] capsule 300 mg (68781) guaiFENesin guaiFENesin 08-15-2019 - [facility]- (MUCINEX) extended 08-17-2019 [place] (4 5237) release tablet 600 mg LORazepam LORazepam (ATIVAN) 2 08-23-2019 - Historical [facility]- MG/ML injection 08-23-2019 [place] (4523 7) LORazepam (ATIVAN) 08-23-2019 - 08-23-2019 Venkat Arroyo [place] injection 0.5 mg (85143) Magnesium Sulfate magnesium sulfate 08-17-2019 - Valencia Oakes [facility]- 2 g in 50 mL IVPB 08-17-2019 [place] (45 237) premix Midazolam midazolam 01-09-2020 - Historical [facility]- (VERSED) 2 MG/2ML 01-09-2020 Provider [place] (45 [address]) injection midazolam (VERSED) 01-09-2020 German Betancourt [place] injection 2 mg (42627) midazolam (VERSED) 11-15-2019 - 11-15-2019 Venkat Monroy Cruz [place] injection 2 mg (13074) midazolam (VERSED) 09-27-2019 - 09-27-2019 Edwar Yan [place] injection 2 mg (75329) midazolam (VERSED) 08-13-2019 - 08-14-2019 Altaf Lara [place] injection 2 mg (29940) Morphine morphine sulfate 11-18-2019 - Santi Page [facility], (PF) injection 4 mg 11-18-2019 [place] (4523 7) morphine sulfate (PF) 11-16-2019 - Petar Nuno [facility], injection 2 mg 11-16-2019 [place] (65427) Vancomycin vancomycin (VANCOCIN) 1000 mg in 09-28-2019 [place] ([address]) dextrose 5% 200 mL IVPB VANCOMYCIN HCL IV Infuse 09-17-2019 - Historical Provider [facility], 1 g intravenously every 09-28-2019 [place] (4523 7) 12 hours 0 09/17/2019 09/28/2019 Active vancomycin (VANCOCIN) 08-15-2019 - Dat Honeycut[facility], 1000 mg in dextrose 5% 08-17-2019 [place] (54233 ) 200 mL IVPB VANCOMYCIN HCL IV Infuse 01-09-2020 Historical Provider [facility], intravenously 0 [place] ([address]56) 01/09/2020 Discontinued VANCOMYCIN HCL IV Infuse Historical Provider [facility], intravenously 0 Active [place] (30275 ) Problems Active Problems Category Problem Name Status Date Location Anxiety disorders Anxiety Active 12-25-2014 - [facility] th- [place] ([address]) Complication of device; Infection associated with Active [facility], implant or graft implant [place] ([address]) Endometriosis Endometriosis (clinical) Active 06-17-2016 - [facility] [place] ([address]) Fracture of lower limb Closed fracture distal Active 08-13-19 [facility] [place], [place]ia [place] ([address]483) Infective arthritis and Osteomyelitis of tibia Active [facility], osteomyelitis (except [place] (45 237) that caused by tuberculosis or sexually transmitted disease) Mood disorders Depressive disorder Active 12-25-2014 [facility] [place] ([address]) Other infections; Sequela of infection Active [facility], including parasitic caused by Corynebacterium [place] (91681) Residual codes; At risk of breast cancer Active 06-27-2018 - [facility], unclassified [place] ([address]79) Residual codes; H/O: surgery Active [facility], [place]classified [place] (74783) Past or Other Problems Category Problem Name Status Date Location Abdominal pain Chronic pelvic pain of Completed 06-17-2016 - [facility]- [place] ([address]) Acute posthemorrhagic Acute posthemorrhagic Completed 08-17-2019 [facility] anemia anemia [place] ([address]) Complications of Postoperative wound Completed 09-27-2019 [facility]- surgical procedures or breakdown [place], [place] ([address]651) medical care Fluid and electrolyte Hyponatremia Completed 08-19-2019 [facility]- disorders [place] ([address]) Headache; including Posttraumatic headache Completed 12-25-2014 [facility] [place] (78131) Open wounds of Unspecified open wound, Completed 08-15-2019 - [facility] extremities left ankle, [place] ( [address]) encounter Open wounds of head; Wound dehiscence Completed 08-13-2019 [facility] neck; and trunk [place], [place] (1757 7) Residual codes; Family history of Completed 06-27-2018 [facility]alt- unclassified malignant neoplasm [place] ([address]) breast Results Result Name Value Range Unit Interpretation Flag Date Location op note on Op Note PATIENT: DENYS ARRIOLA Normal 2019 [facility] ([id number]) ADMISSION DATE: 01/09/2020 SURGERY DATE: 01/09/2020 DATE OF : 1985 AGE: 34 ADMITTING PHYSICIAN: Deon Davila MD ATTENDING PHYSICIAN: Deon Davila MD DICTATING PHYSICIAN: Deon Davila MD OPERATIVE RECORD Procedures: 1. REMOVAL OF ANTIBIOTIC COATED NAIL, LEFT TIBIA. 2. OPEN REDUCTION AND INTERNAL FIXATION OF LEFT DISTAL TIBIA NONUNION WITH IPSILATERAL POSTERIOR ILIAC CREST AUTOGRAFT. 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 Anesthesia: General. Mechanic General Operational Test: Steven Ortega M.D. Estimated Blood Loss: 100 cc. Fluids: Crystalloid. Clinical History: The patient is a 34-year-old female who pr eviously underwent ORIF of a distal tibia fracture at [facility]. She immediately had [facility] [place] [facility] [place] in the ankle for approximately 5-6 months. Serial debridements and ultimately a flap procedure to obtain cover age of the soft tissue defect of the medial ankle. This was done in the setting of a previous shortening with antibiotic nail placement. She is brought back today now that soft tissues have healed for deven nned nail removal and posterior bone grafting and plating. Risks and b enefits of surgery have been reviewed the patient and her ex tensively on multiple separate occasions. They had an opportunity to a sk questions and wished to proceed. No guarantees were given or implied. Description of Procedure: The patient was identified in the preoperative holding area. Surgical site was identified and marked. Informed consent was obtained and placed in the chart. The p atient was then brought to the operating placed supine on the opera ting table. Anesthesia was administered. Care of the head, neck, and airways was maintained by the anesthesia staff throughout th e entire procedure. All bony prominences were identified and padded. The left lower extremity was then prepped and draped in the usual fas hion. Time-out was performed. The 2 distal locking screws were loc alized with x-ray. Small stab incisions were made, which allowed fo r screw removal. The prior infrapatellar knee incision was utilized and the patellar tendon was split and the conical extraction was deven sheri in the proximal tibia. Once this was cross threaded, the remaining proximal locking screw was then removed and the nail was extracted wi thout difficulty. It should be noted the entire cement mantle was intact on the nail after extraction. The wounds were irrigated copious ly with sterile saline and closed in layered fashion. The patient wa s then repositioned prone and re-prepped and draped. Tourniquet was elevated after exsanguination and a posterolateral approach to the le g was made. Sterile nerve was identified and protected throughout our procedure. Deep posterior compartment was reflected, identif gina the posterior aspect of the tibia and nonunion site. The nonunio n site was aggressively debrided in order to obtain bony contact. T he fibula, which also was not healed, required a small resectio n of approximately 1-2 cm to allow for an acute shortening of the tibia additional to what I had done previously in order to maximiz e bone on bone contact to facilitate healing. The tibia was then reduc ed and percutaneous K-wires were placed to hold this reduction. A S ynthes posterior distal tibia plate was applied and provisionally h eld. Initially, the stitches of cortical screws along the shaft. However, these pulled the plate against the posterior cortex and whic h then pushed against the distal fragment and caused this to be not reduced anteriorly. Therefore, several of the cortical screws were r emoved. These were replaced in the shaft of locking screws which had the plate slightly off bone, but overall improved reduction. Once AP a nd lateral fluoroscopy showed good alignment. Multiple locking screws were placed distally. It should be noted the posterior corti jacqueline of the tibia as well as the lateral cortex of the tibia and med ial cortex of the fibula. We decorticated the through the osteotomy was not in contact. Therefore, this was not fixed with any hardware. At tention was turned towards posterior iliac harvest, which was made w ith a curvilinear incision on the posterior crest. Once the PSIS w as identified, a lateral trapdoor was created off the iliac win g and the cancellous bone was harvested and after copious irrigation w as placed within the tibial nonunion site and all along the lateral ti edmund and medial fibula and within the fibular defect as well. The scott ac crest site was irrigated and closed in a layered fashion and steri le dressings were applied. The tibia wound was then irrigated a nd closed as well in a layered fashion. Compressive dressing was appli ed followed by a well-padded posterior splint. The patient was then extubated and taken to PACU in stable condition without comp lication. Diskriter Job ID: [id number] Deon Davila MD DOD:01/10/2020 04:02 P EM/dsk DOT:01/10/2020 05:04 P Job Number: [id number] Document Number: [id number] cc: Deon Davila MD [address] [address] cult/stain - aerobic and anaerobic on 2019-11-20 CULT/STAIN - AEROBIC STAIN GRAM --> Status: F Norm al 11-20-2019 [facility] Health AND ANAEROBIC Rare polymorphonuclear cells/lpf. System ([id number]) No organisms seen. No organisms seen. CULT./ST. BACTERIA --> Status: F No growth at 3 days. CULTURE ANAEROBE --> Status: F No growth of anaerobes at 5 days. Comment: Order Comment: Specimen cat ected in O.R. Performed By: #### Alla HILLS/ MICAELA #### [address] [address] vancomycin trough o n 2019-11-17 Vancomycin Trough 12.1 15.0-20.0 ug/mL Low 11-17-2019 [facility] ([id number]) Comment: Result Comment: . Performed By: #### Alla HILLS/ MICAELA #### [facility] [employer] [address] [address] No panel information on 2019-11-17 Interpretation and review Abnormal [place], [place] of laboratory results ([id number]) Vancomycin Tr 12.1 15 - 20 ug/mL Low 11-17-2019 [place] ([address]) Comment: . Test Performed by [facility] 11-17-2019 [place] ([address]) [address] [address] hemogram on 2019-11 Erythrocyte distribution 13.9 11.5-14.5 % Normal 11-15 [facility] width (RBC) [Ratio] ([id number]) Comment: Performed By: #### Alla HILLS/ MICAELA #### [place] [address] [place], [place] Hematocrit (Bld) [Volume 30.5 35.0-47.0 % Low 11-15 [facility] System fraction] ([id number]) Comment: Performed By: #### Alla HILLS/ MICAELA #### [place] [address] [place], [place] Hemoglobin (Bld) [Mass/Vol] 10.3 11.7-16.0 g/dL Low [facility] System (84972) Comment: Performed By: #### REINIER C/ MICAELA #### [place] [address] [place], [place] MCH (RBC) [Entitic mass] 27.2 26.0-34.0 pg Normal 11-15 [facility] (16847) Comment: Performed By: #### Alla HILLS/ MICAELA #### [place] [address] [place], [place] MCHC (RBC) [Mass/Vol] 33.8 32.0-36.0 % Normal 11-16-19 20 [facility] (23981) Comment: Performed By: #### Alla HILLS/ MICAELA #### [place] [address] [place], [place] MCV (RBC) [Entitic vol] 80.5 79.0-98.0 fL Normal 2019 [facility] (24610) Comment: Performed By: #### Alla HILLS/ MICAELA #### [place] [address] [place], [place] Platelet mean volume (Bld) 8.5 7.4-10.4 fL Normal [facility] [Entitic vol] (59575 ) Comment: Performed By: #### Alla HILLS/ MICAELA #### [place] [address] [place], [place] Platelets (Bld) [#/Vol] 327 140-440 10*3/uL Normal 2019 [facility] (89112) Comment: Performed By: #### Alla HILLS/ MICAELA #### [facility] [address] [place], [place] RBC (Bld) [#/Vol] 3.79 3.80-5.20 10*6/uL Low 11-16-2019 [facility] (97673) Comment: Performed By: #### REINIER C/ MICAELA #### [place] [address] [place], [place] WBC (Bld) [#/Vol] 14.3 3.6-10.7 10*3/uL High 11-16-2019 [facility] (01535) Comment: Performed By: #### REINIER C/ MICAELA #### [place] [address] [place], [place] basic metabolic panel on 2019-11-16 Calcium [Mass/Vol] 9.1 8.4-10.4 mg/dL Normal 11-16-2019 [facility] (37912) Comment: Performed By: #### Alla HILLS/ MICAELA #### [place] [address] [place], [place] Anion gap [Moles/Vol] 9 Normal 11-16-19 [facility] (20283) Comment: Performed By: #### Alla HILLS/ MICAELA #### [place] [address] [place], [place] CO2 [Moles/Vol] 21 22-30 mmol/L Low 11-16-2019 [facility] (27313) Comment: Performed By: #### Alla HILLS/ MICAELA #### [place] [address] [place], [place] Creatinine [Mass/Vol] 0.63 0.52-1.25 mg/dL Normal 11-16-19 [facility] (42572) Comment: Performed By: #### REINIER C/ MICAELA #### [place] [address] [place], [place] GFR/1.73 sq M > 90.0 >60 mL/min/{1.73_m2} Normal 0 [facility] predicted among Syst em (85057) blacks MDRD (S/P/Bld) [Vol rate/Area] Comment: Performed By: #### Alla HILLS/ MICAELA #### [employer] [address] [place], [place] GFR/1.73 sq M > 90.0 >60 mL/min/{1.73_m2} Normal 0 [facility] [employer] predicted among Syst em (57613) non-blacks MDRD (S/P/Bld) [Vol rate/Area] Comment: Result Comment: KDIGO guidel george provide the following GFR categories: Stage GFR(ml/min/1.73 m2) Te neftali G1 >=90 Normal or high G2 60-89 Mildly decreased* G3a 45-59 Mildly to moderate ly decreased G3b 30-44 Moderately to cristina rely decreased G4 15-29 Severely decreased G5 <15 Kidney failure *Relative to young adult lev el. In the absence of evidence o f kidney damage, neither GFR category G1 nor G2 fulfill t he criteria for CKD. The CKD-EPI equation is sandor dated in individuals 18 years of age and older. Currently the best equation for estimating glomerular filtra tion rate (GFR) from serum creatinine in children is e Bedside Rinaldi equation. It is less accurate in patie nts with extremes of muscle mass, restriction of dietary protein, ingestion of creatine, extra-renal metabolism of cr eatinine, or treatment with medications that affect rahul l tubular creatinine secretion. Performed By: #### Alla HILLS/ MICAELA #### [employer] [address] [place], [place] Glucose [Mass/Vol] 132 70-100 mg/dL High 11-16-2019 [facility] [employer] [facility] (67446) Comment: Performed By: #### Alla HILLS/ MICAELA #### [employer] [address] [place], [place] Urea nitrogen [Mass/Vol] 17 7-20 mg/dL Normal 11-15 [facility] [employer] [facility] (66365) Comment: Performed By: #### Alla HILLS/ MICAELA #### [employer] [address] [place], [place] Chloride [Moles/Vol] 103 98-107 mmol/L [facility] ([address]128[facility] Comment: Performed By: #### REINIER C/ MICAELA #### [facility] [address] [place], [place] Potassium [Moles/Vol] 4.3 3.5-5.1 mmol/L Normal 11-16-19 [facility] (37350) Comment: Performed By: #### REINIER C/ MICAELA #### [facility] [address] [place], [place] Sodium [Moles/Vol] 133 135-145 mmol/L Low 11-16-2019 [facility] (27348) Comment: Performed By: #### REINIER C/ MICAELA #### [facility] [address] [place], [place] No panel information on 2019-11-16 Anion gap [Moles/Vol] 9 mmol/L 11-16-19 20 [place] ([address]) Calcium [Mass/Vol] 9.1 8.4 - 10.4 mg/dL 11-16-2019 [place] ([address]) Chloride [Moles/Vol] 103 98 - 107 mmol/L 0 [place] ([address]) CO2 [Moles/Vol] 21 22 - 30 mmol/L Low 11-16-2019 [place] ([address]) Creatinine [Mass/Vol] 0.63 0.52 - 1.25 mg/dL 2019 [place] ([address]) EGFR IF NonAfrican >90.0 >60 mL/min 11-16-2019 [place] Camb[place]ian ([address]) Comment: KDIGO guidelines provide the following GFR categories: Stage GFR(ml/min/1.73 m2) Terms G1 >=90 Normal or h igh G2 60-89 Mildly decr eased* G3a 45-59 Mildly to moderately decreased G3b 30-44 Moderately to severely decreased G4 15-29 Severely de creased G5 <15 Kidne y failure *Relative to young adult lev el. In the absence of evidence o f kidney damage, neither GFR category G1 nor G2 fulfill t he criteria for CKD. The CKD-EPI equation is sandor dated in individuals 18 years of age and older. Currently the best equation for estimating glomerular filtra tion rate (GFR) from serum creatinine in children is [facility] Bedside Rinaldi equation. It is less accurate in patie nts with extremes of muscle mass, restriction of dietary protein, ingestion of creatine, extra-renal metabolism of cr eatinine, or treatment with medications that affect rahul l tubular creatinine secretion. GFR/1.73 sq M >90.0 >60 mL/min mL/min/{1.73_m2} 11-16-19 20 [facility] predicted among [facility], blacks MDRD [place] (0223 7) (S/P/Bld) [Vol rate/Area] Glucose [Mass/Vol] 132 70 - 100 mg/dL High 11-16-2019 [place] ([address]) Interpretation and Abnormal 11-16-2019 [facility] review of [facility] , laboratory results [place] ([address]) Potassium 4.3 3.5 - 5.1 mmol/L 11-16-2019 [facility] [Moles/Vol] [place] ([address]) Sodium [Moles/Vol] 133 135 - 145 mmol/L Low 11-16-2019 [place] ([address]) Urea nitrogen 17 7 - 20 mg/dL 11-16-2019 [facility] [Mass/Vol] [place] ([address]) Test 11-16-2019 [facility] Performed by [facility] [employer] [place] (312 35) System, [address] [place] [address] Erythrocyte 13.9 11.5 - % 11-16-2019 [facility] distribution width 14.5 [facility], (RBC) [Ratio] [place] (89 [address]) Hematocrit (Bld) 30.5 35 - 47 % Low 11-16-2019 [facility] [Volume fraction] [place] ([address]) Hemoglobin (Bld) 10.3 11.7 - 16 g/dL Low 11-16-2019 [facility] [Mass/Vol] [place] ([address]) Interpretation and Abnormal 11-16-2019 [facility] review of [facility] , laboratory results K Y ([address]) MCH (RBC) [Entitic 27.2 26 - 34 pg 11-16-2019 [facility] mass] [place] ([address]) MCHC (RBC) 33.8 32 - 36 % 11-16-2019 [facility] [Mass/Vol] [facility] [place] ([address]) MCV (RBC) [Entitic 80.5 79 - 98 fL 11-16-2019 [facility] vol] [facility] [place] ([address]) Platelet mean 8.5 7.4 - 10.4 fL 11-16-2019 [facility] volume (Bld) [facility], [Entitic vol] [place] (45 237) Platelets (Bld) 327 140 - 440 10*3/uL 11-16-2019 [facility] [#/Vol] [place] ([address]) RBC (Bld) [#/Vol] 3.79 3.8 - 5.2 10*6/uL Low 11-16-2019 [place] ([address]) WBC (Bld) [#/Vol] 14.3 3.6 - 10.7 10*3/uL High 11-16-2019 [place] ([address]) Test 11-16-2019 [facility] Performed by [facility] (452 37) System, [address] [place] [address] op note on Op Note Hand Plastic & Reconstructive Surgery No rmal 11-15-2019 [facility] Operative Report (00 000) 11/15/19 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 The risk s of surgery were discussed including but not limited to the risks of medicati ons given for surgery, the risk of blood loss during and after surgery that can lead to the need for blood products in certain situations, infection, da mage to normal structures that can lead to custodial problems of pain or dysfunction, wound healing complications, and late or chronic pain as a resul t of the surgical intervention. In addition potentially life threa tening complications that can occur at the time of surgery and after surgery were discussed including but not limited to deep vein thrombosis, pulmonary embolism, myoca rdial infarction, stroke and . I initialed her Left lower extremity and signed her consent form. Denys was then brought to the operating room and placed in the Supine position on the Operating Room table. Care was taken to identify and pad all bony prominences. A general anesthetic was the n given by the anesthesia staff and an endotracheal tube was placed by the anesthesia staff. At all times during the operative procedure the patient's head neck and airway wer e protected by the anesthesia staff. Preoperative antibiotics were administered The orthopedic team removed the external hardware A tourniquet was utilized for the case. 104 minutes The Left lower extremity was then prepped and draped i n the usual orthopedic sterile fashion. A surgical timeout was then performed with the patient 's identification, the procedure to be performed being reviewed with the cons ent form, verification that the patient had receive d preoperative antibiotics, and verification of the correct surgical side. Everyone in the operating room stopped what they were doing in order to participate in the timeout. This timeout was performed by myself, the circulating room nurse and t anesthesia staff. The patient's ASA was verified by the nurse senior loan processor and the anesthesi a staff. Fire risk was assessed. At this point the anterior and posterior distal half of the elliptical shaped flap was incised using a knife. A plane was identified bet ween the flap and local tissue and the Undersu rface of the flap was identified elevated & rotated posteriorly exposing the dis oneyda tibia and nonunion. The flap doppler signal was identified and marked. At th is point I handed over the case to Dr Davila for his portion of the case please see his dictation for details. After Dr Davila was complete d with his portion of the procedure I re-entered the case, The tourniquet was rel eased and bleeding was confirmed in the flap distal edge. The anterior surface was trimmed of old scar tissue an d deep dermal sutures were placed to re ap proximate the anterior edge of the flap. Due to the tibial shortening, advancement was not required, The posterior defect was 7 x 1.5 x 2 CM. So the flap had its deep surface cur etted and 3L of NS with 60 cc of 3% Acetic Acid were used to completely irrigate the wound bed and undersurface of the flap. The posterior flap edge and the cantwell tissue was trimmed of scar tissue. At this point a counter incision was made 4 cm posterior to the wound and 7 cm in length. The d istal and proximal tissue was left in place and the posterior tissue was elevated in a deven ne deep to the subcutaneous fat. This tissue was then advanced anteriorly and sutured to the free flap using absorbable deep sutures. The distal half ant eriorly and posteriorly then had superficial interrupted Prolene sutures placed. The relaxing incision had a wound vac sponge placed and a good seal was achieved. The doppler signal was present and the flap had good cap refill. The incision line was then covered with Xeroform Gauze. The orthopedic team re-enter ed and placed a posterior slab splint with a window for flap evaluation All counts were correct The patient was Awoken from surgery and taken to PACU in sta ble condition The first-assistant elementary teacher was critical to all steps of the operati on, including retraction and arm extremity stabilization during exposure, as well as the deep and superficial wound closure. I understand that section 1842(b)(7)(D) of the Social Security Act generall y prohibits Medicare physician fee schedule payment for the services of assistants at [facility] y in teaching hospitals when qualified residents are available to furnish such services . I certify that the services for which payment is claimed were medically necessary and that no qualified resident was available to pe rform the services. I further understand that these services are subject to post- payment review by the Medicare carrier. Surgeon: Boris-PlasticYovanny (orthopaedics dictated [facility]) Mechanic General Operational Test(s): Xiang ASHER Anesthesia: General endotrachial anesthesia and Regional Estimated blood loss: 300 ml Total IV fluids: 1300 ml crystalloids Blood Transfusion?: No Total Urine Output: 450 cc Drains: Wound vac Specimens: none Implants: Please see Yovanny op note for implants Complications: none Condition: Stable Op Note [facility] Normal 06-0 [facility] GENERAL SURGERY ([id number]) [address] [facility] [address] Dept: [phone] Loc: [phone] Operative Report Patient Name: Denys Arriola Date of : 1985 Date of Surgery: 11/15/19 Pre-operative diagnosis: Left tibia infected nonunion Post-operative diagnosis: Same Procedure(s): Open reduction internal fi xation of left tibia infected nonunion with acute shortening, insertion of anti biotic coated nail left tibia, partial excision of left tibia and f ibula, removal talar spatial frame under anesthesia, removal with reinsertion of antibiotic cement spacer Surgeon: Deon Davila M.D. Mechanic General Operational Test(s): Steven Knutson M.D. and Shad Mon Anesthesia: General EBL: 100cc IVF: Crystalloid Implants: Synthes tibia nail Clinical History/Indication for Surgery The patient is a 33 y.o. year old female who was presents fo r combination surgery with plastic surgery to address a infected tibial no nunion with difficulty of the flap heali ng. Plan is for acute shortening with an antibiotic impregnated nail which will facilitate flap coverage and healing with plans for delayed fixation and graftin g of this nonunion site. And eventually lengthening of the short limb at the patient's discr etion. Typical indications for surgery were reviewed and operative fixation was recommended. Risks of fracture surgery in general were reviewed including, but not limi armando to, infection, non-union, need for additional procedures, painful or prominent hardwar e which could require removal, failure of fixation which would requi re revision, damage to normal structures as well as medical complications such as [place], stroke, PE, DVT, and even . Pt was given opportunity to ask questions an d consider her options. She ultimately elected to proceed with surgery. N o guarantees were given or implied. Operative Narration The patient was identified i n the pre-operative holding area. The surgical site was identified and marked. Informed cons ent was obtained. The patient was then brought to the operating room and placed supine on the opera ting table. Anesthesia was administered and care of the head, neck, and airway was maintained by the anesthesia staff throughout the enti re procedure. All bony prominences were identified and padded. A tourniquet was vanessa lied to the operative extremity which was then prepped and draped in the usual sterile fashion. A surgical timeout was performed. Antib iotics were confirmed to have been given. The spatial frame was removed prior to p rep and drape by removing all fixation points to the tibia and frame was removed in its entirety. A fter gravity exsanguination the tourniquet was inflated. The medial flap was elevated by Dr. Trish pace and eventually this was rotated and sewn back down at the completion of our procedure. This will be dictated under separate operative note. The cement spacer present was remov ed without difficulty. The medial border of the tibia was exposed sharp ly until the anterior and posterior borders were iden tified. X-ray was utilized to darin the appropriate location for the tibial osteotomy. W ith appropriate retractors in place a saw blade was used under irrigation to perform the tibial osteotomy. The lateral cortex was completed using drill bits and osteot omes. Once the tibia was removed the fibula could be ac cessed through the wound this was also completed using drill bits to create drill holes proximally and distally this was then completed with an osteotome and removed with the Payton clamp and a scalpel. Preparations then performed for tibial nailing. A patellar tendon splitting technique was utilized at the knee and the guidepin was plac ed under fluoroscopic guidance. Anter ior is passed followed by the ball-tipped guidewire which was centered in the distal tibial segment under fluoroscopy. Reaming was performed up to 11.5 to accept the antibiotic impregnated na il. Length and tibia had been measured and an antibioti c impregnated nail was created using a 40 Serbian chest tube with tobramycin and vancomycin im pregnated PMMA cement. Once the cement was cured the nail was impacted into t he tibia. Initial plan was for locking screws distally with compression however one of the distal locking screws was loose within the very soft danie ne given her extensive disuse osteopenia. Only one screw obtaining reasonable purchase the refore no additional compression was applied proximally. O ne proximal locking screw was drilled through the outrigger. Care the patient turned over to plastic surgery for the completion of this procedure. Once they were finishe d, she will be placed in a well-padded posterior slab and sugar tong splint . Postoperative Plan strict nonweightbearing in splint This operative report was demarco madrid and signed by Deon Davila MD at 11/15/19, 11:22 AM ts gel on 2 TS GEL ABO Group: Normal 11-12-2019 [facility] alth System ([id number]) B Rh, Gel: POS Antibody Screen Gel: NEG Comment: Performed By: #### CXTIS, C/ MICAELA #### [facility] [employer] [address] [place] [id number] sars-cov-2 on 11-11 SARS-CoV-2 SARS-CoV-2 --> Status: F Normal [facility] Not Detected (22581) Expected Result: Not Detected _ Real-time, RT-PCR performed on the BD MAX System by the [facility] Microbiology Service. Negative results do not preclude SARS-CoV-2 infection and should not be used as the sole basis for treatment or other patient management decisions. This assay was developed by [employer] and distributed under an Emergency Use Authorization (EUA) granted by the FDA for the qualitative detection of SARS-CoV-2 nucleic acid. Expected Result: Not Detected _ Real-time, RT-PCR performed on the [employer] MAX System by the [facility] Microbiology Service. Negative results do not preclude SARS-CoV-2 infection and should not be used as the sole basis for treatment or other patient management decisions. This assay was developed by [employer] and distributed under an Emergency Use Authorization (EUA) granted by the FDA for the qualitative detection of SARS-CoV-2 nucleic acid. Comment: Order Comment: Specimen cat ected in O.R. Performed By: #### Alla HILLS/ MICAELA #### [place] [address] [place], [place] hemoglobin and hematocrit on 2019-11-12 Hematocrit (Bld) [Volume 35.7 35.0-47.0 % Normal 11-11 [facility] fraction] (88715) Comment: Performed By: #### Alla HILLS/ MICAELA #### [place] [address] [place] [address] Hemoglobin (Bld) 11.8 11.7-16.0 g/dL Normal 11-12-2019 [facility] [Mass/Vol] (70174) Comment: Performed By: #### REINIER C/ MICAELA #### [place] [address] [place] [address] No panel information on 2019-11-12 SARS-CoV-2 Not Detected 11-12-2019 [facility]- Expected Result: Not Detected [place] ([address]) _ Real-time, RT-PCR performed on the BD MAX System by the [facility] Microbiology Service. Negative results do not preclude SARS-CoV-2 infection and should not be used as the sole basis for treatment or other patient management decisions. This assay was developed by [employer] and distributed under an Emergency Use Authorization (EUA) granted by the FDA for the qualitative detection of SARS-CoV-2 nucleic acid. Test Performed by 11-12-2019 [place], [place] ([address]) [address] [place] [address] Specimen Source Comment:Nasopharyngea l Swab Sodium [Moles/Vol] B 11-12-2019 [place], [place] ([address]) Sodium [Moles/Vol] NEG mmol/L 11-12-2019 [place] (08 036) Sodium [Moles/Vol] POS mmol/L 11-12-2019 [place] ([address]) Test Performed by 11-12-2019 [place] ([address]) [address] [place] [address] Hematocrit (Bld) 35.7 35 - 47 % 11-12-2019 [facility]- [Volume fraction] [place] ([address]) Hemoglobin (Bld) 11.8 11.7 - 16 g/dL 11-12-2019 [facility] [Mass/Vol] [place], [place] (4 [id number]) Test Performed by 11-12-2019 [place] ([address]) [address] [place] [address] op note on Op Note Hand Plastic & Reconstructive Surgery No rmal 09-27-2019 [facility] Operative Report (00 000) 09/27/19 Pre-operative Diagnosis: Wound Dehicence LLE Post-operative Diagnosis: Same Procedure: Re-elevation flap , anterior advancement SPlit thickness skin graft 10x5cm Application Wound Vac 10x5 cm Description of Procedure: I met with Denys in the preoperative are a prior to the procedure and discussed the surgical plan once again and answered all of her questions related to the procedure and the expected post-operative course. The risk s of surgery were discussed including but not limited to the risks of medicati ons given for surgery, the risk of blood loss during and after surgery that can lead to the need for blood products in certain situations, infection, da mage to normal structures that can lead to custodial problems of pain or dysfunction, wound healing complications, and late or chronic pain as a resul t of the surgical intervention. In addition potentially life threa tening complications that can occur at the time of surgery and after surgery were discussed including but not limited to deep vein thrombosis, pulmonary embolism, myoca rdial infarction, stroke and . I initialed her Left lower extremity and signed her consent form. Denys was then brought to the operating room and placed in the supine position on the Operating Room table. Care was taken to identify and pad all bony prominences. A general anesthetic was the n given by the anesthesia staff and an endotracheal tube was placed by the anesthesia staff. At all times during the operative procedure the patient's head neck and airway wer e protected by the anesthesia staff. A tourniquet was not utilized for the case. The Left lower extremity was then prepped and draped i n the usual orthopedic sterile fashion. A surgical timeout was then performed with the patient 's identification, the procedure to be performed being reviewed with the cons ent form, verification that the patient had receive d preoperative antibiotics, and verification of the correct surgical side. Everyone in the operating room stopped what they were doing in order to participate in the timeout. This timeout was performed by myself, the circulating room nurse and t he anesthesia staff. The patient's ASA was verified by the nurse senior loan processor and the anesthesi a staff. Fire risk was assessed. The external fixator struts were removed mediall y to allow access to the flap and the stabilizer pins were then removed. The flap was then elevated in a cranial direction to the mid portion of the flap, the flap was then advanced and slightly rotated to cover the exposed cement spacer, The hue esha skin was elevated slightly allowing a tension free closure with inter rupted Prolene sutures. The posterior aspect of the fla p then left an area with soft tissue ~ 10x5cm inferior and posterior. The area was irrigated out with 3L of NS and hemostasis was achieved. The doppler signal was confirmed in the flap and along the dorsalis pedis distally. Matristem Acell powder wa s mixed with saline to form a slurry an was applied underneath and inferior t o the flap. A 05/1000 STSG was harvested from the left thigh and meshed 1:1.5. It was sutured in place using chromic sutures. A wound vac was then applied to the STSG and a good seal was achieved. DOpler signals were again checked and were present. All counts were correct PAtient was taken to PACU in stable condition Surgeon: Boris Mechanic General Operational Test(s): Andrea PGY 6 Anesthesia: General endotrachial anesthesia Estimated blood loss: 50cc Total IV fluids: 350 ml Blood Transfusion?: No Total Urine Output: NR Drains: NO Specimens: none Implants: none Findings: Exposed cement spacer Complications: none Condition: Stable hemogram w/ autodiff on 2019-08-28 Abs Baso Cnt 0.1 0.0-0.2 10*3/uL Normal 08-28-2019 [facility] ([id number]) Comment: Performed By: #### REINIER C/ MICAELA #### [place] [address] [place], [place] Abs Neutrophile Cnt 6.3 1.8-7.0 10*3/uL Normal 08-28-2019 [facility] (88393) Comment: Performed By: #### REINIER C/ MICAELA #### [facility] [employer] [place] [address] [place], [place] Basophils/100 WBC (Bld) 1.1 0.0-2.0 % Normal 2019 [facility] (58158) Comment: Performed By: #### REINIER C/ MICAELA #### [place] [address] [place] Eosinophils (Bld) [#/Vol] 0.3 0.0-0.5 10*3/uL Normal 08-10 [facility] (27981) Comment: Performed By: #### REINIER C/ MICAELA #### [place] [address] [place] [address] Eosinophils/100 WBC (Bld) 3.5 1.0-6.0 % Normal 08-10 [facility] (66889) Comment: Performed By: #### REINIER C/ MICAELA #### [place] [address] [place] Erythrocyte distribution 13.9 11.5-14.5 % Normal 08-27 [facility] width (RBC) [Ratio] (97808) Comment: Performed By: #### REINIER C/ MICAELA #### [place] [address] [place], [place] Granulocytes/100 WBC (Bld) 68.1 40.0-80.0 % Normal [facility] (73853) Comment: Performed By: #### REINIER C/ MICAELA #### [place] [address] [place], [place] Hematocrit (Bld) [Volume 25.2 35.0-47.0 % Low 08-27 [facility] fraction] (34350) Comment: Performed By: #### REINIER C/ MICEALA #### [place] [address] [place], [place] Hemoglobin (Bld) [Mass/Vol] 8.7 11.7-16.0 g/dL Low [facility] (34576) Comment: Performed By: #### REINIER C/ MICAELA #### [place] [address] [place], [place] Lymphocytes (Bld) [#/Vol] 1.9 1.0-4.3 10*3/uL Normal 08-10 [facility] (20864) Comment: Performed By: #### REINIER C/ MICAELA #### [place] [address] [place], [place] Lymphocytes/100 WBC (Bld) 20.9 20.0-40.0 % Normal 08-10 [facility] (79056) Comment: Performed By: #### REINIER C/ MICAELA #### [place] [address] [place], [place] MCH (RBC) [Entitic mass] 30.9 26.0-34.0 pg Normal 08-27 [facility] (04230) Comment: Performed By: #### REINIER C/ MICAELA #### [place] [address] [place], [place] MCHC (RBC) [Mass/Vol] 34.7 32.0-36.0 % Normal 08-28-19 20 [facility] (56514) Comment: Performed By: #### REINIER, C/ IMCAELA #### [facility] [address], [place] MCV (RBC) [Entitic vol] 89.1 79.0-98.0 fL Normal 2019 [facility] (63716) Comment: Performed By: #### REINIER, C/ MICAELA #### [facility] [address], [place] Monocytes (Bld) [#/Vol] 0.6 0.0-0.8 10*3/uL Normal 2019 [facility] (55614) Comment: Performed By: #### REINIER C/ MICAELA #### [place] [address] [place], [place] Monocytes/100 WBC (Bld) 6.4 2.0-10.0 % Normal 2019 [facility] (08130) Comment: Performed By: #### REINIER, C/ MICAELA #### [place] [address] [place], [place] Platelet mean volume (Bld) 7.6 7.4-10.4 fL Normal [facility] [Entitic vol] (90603 ) Comment: Performed By: #### REINIER, C/ MICAELA #### [place] [address] [place], [place] Platelets (Bld) [#/Vol] 359 140-440 10*3/uL Normal 2019 [facility] (74073) Comment: Performed By: #### REINIER, C/ MICAELA #### [facility] [address] [place], [place] RBC (Bld) [#/Vol] 2.83 3.80-5.20 10*6/uL Low 08-28-2019 [facility] (67577) Comment: Performed By: #### REINIER, C/ MICAELA #### [place] [address] [place], [place] WBC (Bld) [#/Vol] 9.2 3.6-10.7 10*3/uL Normal 08-28-2019 [facility] (14260) Comment: Performed By: #### REINIER C/ MICAELA #### [facility] [address] [place] [address] basic metabolic panel on 2019-08-28 Anion gap [Moles/Vol] 8 Normal 08-28-19 [facility] (06469) Comment: Performed By: #### REINIER C/ MICAELA #### [facility] [address] [place] [address] Calcium [Mass/Vol] 9.4 8.4-10.4 mg/dL Normal 08-28-2019 [facility] (25922) Comment: Performed By: #### REINIER C/ MICAELA #### [place] [address] [place] [address] CO2 [Moles/Vol] 27 22-30 mmol/L Normal 08-28-2019 [facility] (91445) Comment: Performed By: #### REINIER C/ MICAELA #### [place] [address] [place] [address] Creatinine [Mass/Vol] 0.64 0.52-1.25 mg/dL Normal 08-28-19 [facility] (67732) Comment: Performed By: #### REINIER C/ MICAELA #### [place] [address] [place] [address] GFR/1.73 sq M > 60.0 >60 mL/min/{1.73_m2} Normal 0 [facility] predicted among Syst em (23809) blacks MDRD (S/P/Bld) [Vol rate/Area] Comment: Performed By: #### REINIER C/ MICAELA #### [place] [address] [place] [address] GFR/1.73 sq M > 60.0 >60 mL/min/{1.73_m2} Normal 0 [facility] predicted among Syst em (20506) non-blacks MDRD (S/P/Bld) [Vol rate/Area] Comment: Result Comment: Source- MDRD equation with creatinine calibration to IDMS(NKDEP) eGFR not recommended for nicolas g dose adjustment Performed By: #### Alla HILLS/ MICAELA #### [facility] [address] [place] [address] Glucose [Mass/Vol] 96 70-100 mg/dL Normal 08-28-2019 [facility] (82399) Comment: Performed By: #### Alla HILLS/ MICAELA #### [facility] [address] [place] [address] Urea nitrogen [Mass/Vol] 18 7-20 mg/dL Normal 08-27 [facility] (60477) Comment: Performed By: #### Alla HILLS/ MICAELA #### [facility] [address] [place], [place] Chloride [Moles/Vol] 99 98-107 mmol/L Normal 0 [facility] [employer] [facility] (39749) Comment: Performed By: #### Alla HILLS/ MICAELA #### [facility] [place] [address] [place], [place] Potassium [Moles/Vol] 4.2 3.5-5.1 mmol/L Normal 08-28-19 20 [facility] (30133) Comment: Performed By: #### Alla HILLS/ MICAELA #### [facility] [employer] [place] [address] [place] [address] Sodium [Moles/Vol] 133 135-145 mmol/L Low 08-28-2019 [facility] (50369) Comment: Performed By: #### Alla HILLS/ MICAELA #### [facility] [address] [place] [address] No panel information on 2019-08-28 Anion gap [Moles/Vol] 8 mmol/L 08-28-19 [place] ([address]) Calcium [Mass/Vol] 9.4 8.4 - 10.4 mg/dL 08-28-2019 [place] ([address]) Chloride [Moles/Vol] 99 98 - 107 mmol/L 0 [place] ([address]) CO2 [Moles/Vol] 27 22 - 30 mmol/L 08-28-2019 [place] ([address]) Creatinine [Mass/Vol] 0.64 0.52 - 1.25 mg/dL 2019 [place] ([address]) EGFR IF NonAfrican >60.0 >60 mL/min 08-28-2019 [place] ([address]) Comment: Source- MDRD equation with c reatinine calibration to IDMS(NKDEP) eGFR not recommended for nicolas g dose adjustment GFR/1.73 sq M >60.0 >60 mL/min mL/min/{1.73_m2} 08-28-19 20 [facility] predicted among [facility] blacks MDRD SD (7710 7) (S/P/Bld) [Vol rate/Area] Glucose [Mass/Vol] 96 70 - 100 mg/dL 08-28-2019 [place] ([address]) Interpretation and Abnormal 08-28-2019 [facility] review of [facility] , laboratory results K Y (50968) Potassium 4.2 3.5 - 5.1 mmol/L 08-28-2019 [facility] [Moles/Vol] [place] ([address]) Sodium [Moles/Vol] 133 135 - 145 mmol/L Low 08-28-2019 [place] ([address]) Urea nitrogen 18 7 - 20 mg/dL 08-28-2019 [facility] [Mass/Vol] [place] ([address]) Test 08-28-2019 [facility] Performed by [facility] (592 42) [facility], [address] [place] [address] Absolute Baso # 0.1 0 - 0.2 10*3/uL 08-28-2019 [place] ([address]) Absolute Neut # 6.3 1.8 - 7 10*3/uL 08-28-2019 [place] ([address]) Basophils/100 WBC 1.1 0 - 2 % 08-28-2019 [facility] (Bld) [place] ([address]) Eosinophils (Bld) 0.3 0 - 0.5 10*3/uL 03-18-2020 M ercy [#/Vol] [place] ([address]) Eosinophils/100 WBC 3.5 1 - 6 % 08-28-2019 [facility] (Bld) [place] ([address]) Erythrocyte 13.9 11.5 - % 08-28-2019 [facility], (RBC[facility] [Ratio] [place] (45 237) Granulocytes/100 68.1 40 - 80 % 08-28-2019 [facility] WBC (Bld) [place] ([address]) Hematocrit (Bld) 25.2 35 - 47 % Low 08-28-2019 Me [facility] [Volume fraction] [place] ([address]) Hemoglobin (Bld) 8.7 11.7 - 16 g/dL Low 08-28-2019 Me [facility]cy [Mass/Vol] [place] ([address]) Interpretation and Abnormal 08-28-2019 [facility] , laboratory results K Y (00508) Lymphocytes (Bld) 1.9 1 - 4.3 10*3/uL 08-28-2019 M ercy [#/Vol] [place] ([address]) Lymphocytes/100 WBC 20.9 20 - 40 % 08-28-2019 [facility] (Bld) [place] ([address]) MCH (RBC) [Entitic 30.9 26 - 34 pg 08-28-2019 [facility] mass] [place] ([address]) MCHC (RBC) 34.7 32 - 36 % 08-28-2019 [facility] [Mass/Vol] [place] ([address]) MCV (RBC) [Entitic 89.1 79 - 98 fL 08-28-2019 [facility] vol] [place] ([address]) Monocytes (Bld) 0.6 0 - 0.8 10*3/uL 2020 Dora cy [#/Vol] [place] ([address]) Monocytes/100 WBC 6.4 2 - 10 % 08-28-2019 M [facility] (Bld) [place] ([address]) Platelet mean 7.6 7.4 - 10.4 fL 08-28-2019 Merc y volume (Bld) [facility], [Entitic vol] [place] (45 237) Platelets (Bld) 359 140 - 440 10*3/uL 08-28-2019 Dora cy [#/Vol] [place] ([address]) RBC (Bld) [#/Vol] 2.83 3.8 - 5.2 10*6/uL Low 08-28-2019 [place] ([address]) WBC (Bld) [#/Vol] 9.2 3.6 - 10.7 10*3/uL 08-28-2019 [place] ([address]) Test 08-28-2019 [facility] Performed by [facility] (452 37) System, [address] [place] [address] vancomycin trough o n 2019-08-27 Vancomycin Trough 12.4 15.0-20.0 ug/mL Low 08-27-2019 [facility] (98994) Comment: Result Comment: . Performed By: #### REINIER C/ MICAELA #### [facility] [address] [place], [place] hemogram w/ autodiff on 2019-08-27 Abs Baso Cnt 0.1 0.0-0.2 10*3/uL Normal 08-27-2019 [facility] (93663) Comment: Performed By: #### REINIER C/ MICAELA #### [place] [address] [place] [address] Abs Neutrophile Cnt 7.3 1.8-7.0 10*3/uL High 08-27-2019 [facility] (99984) Comment: Performed By: #### REINIER C/ MICAELA #### [facility] [address] [place] [address] Basophils/100 WBC (Bld) 0.7 0.0-2.0 % Normal 2019 [facility] (98812) Comment: Performed By: #### REINIER C/ MICAELA #### [facility] [address] [place], [place] Eosinophils (Bld) [#/Vol] 0.3 0.0-0.5 10*3/uL Normal 08-10 [facility] (39970) Comment: Performed By: #### Alla HILLS/ MICAELA #### [facility] [place] [address] Eosinophils/100 WBC (Bld) 3.1 1.0-6.0 % Normal 08-10 [facility] (29520) Comment: Performed By: #### Alla HILLS/ MICAELA #### [place] [address] [place] [address] Erythrocyte distribution 13.7 11.5-14.5 % Normal 08-26 [facility] width (RBC) [Ratio] (71931) Comment: Performed By: #### Alla HILLS/ MICAELA #### [facility] [place] [address] Granulocytes/100 WBC (Bld) 70.6 40.0-80.0 % Normal [facility] (14282) Comment: Performed By: #### Alla HILLS/ MICAELA #### [facility] [address] [place] Hematocrit (Bld) [Volume 24.2 35.0-47.0 % Low 08-26 [facility] fraction] (76988) Comment: Performed By: #### Alla HILLS/ MICAELA #### [place] [address] [place] [address] Hemoglobin (Bld) [Mass/Vol] 8.5 11.7-16.0 g/dL Low [facility] (08568) Comment: Performed By: #### Alla HILLS/ MICAELA #### [facility] [address] [place] Lymphocytes (Bld) [#/Vol] 1.9 1.0-4.3 10*3/uL Normal 08-10 [facility] (04021) Comment: Performed By: #### REINIER C/ MICAELA #### [place] [address] [place] [address] Lymphocytes/100 WBC (Bld) 18.7 20.0-40.0 % Low 08-10 [facility] (05069) Comment: Performed By: #### REINIER C/ MICAELA #### [facility] [address] [place], [place] MCH (RBC) [Entitic mass] 31.5 26.0-34.0 pg Normal 08-26 [facility] (19285) Comment: Performed By: #### REINIER C/ MICAELA #### [facility] [address] [place], [place] MCHC (RBC) [Mass/Vol] 35.0 32.0-36.0 % Normal 08-27-19 20 [facility] (63486) Comment: Performed By: #### REINIER C/ MICAELA #### [place] [address] [place], [place] MCV (RBC) [Entitic vol] 90.2 79.0-98.0 fL Normal 2019 [facility] (17444) Comment: Performed By: #### REINIER C/ MICAELA #### [place] [address] [place], [place] Monocytes (Bld) [#/Vol] 0.7 0.0-0.8 10*3/uL Normal 2019 [facility] (70691) Comment: Performed By: #### REINIER C/ MICAELA #### [place] [address] [place], [place] Monocytes/100 WBC (Bld) 6.9 2.0-10.0 % Normal 2019 [facility] (85126) Comment: Performed By: #### REINIER C/ MICAELA #### [facility] [address] [place], [place] Platelet mean volume (Bld) 7.0 7.4-10.4 fL Low [facility] [Entitic vol] (91796 ) Comment: Performed By: #### REINIER C/ MICAELA #### [place] [address] [place], [place] Platelets (Bld) [#/Vol] 327 140-440 10*3/uL Normal 2019 [facility] (53076) Comment: Performed By: #### REINIER, C/ MICAELA #### [facility] [address] [place], [place] RBC (Bld) [#/Vol] 2.69 3.80-5.20 10*6/uL Low 08-27-2019 [facility] (57534) Comment: Performed By: #### REINIER, C/ MICAELA #### [facility] [address] [place], [place] WBC (Bld) [#/Vol] 10.4 3.6-10.7 10*3/uL Normal 08-27-2019 [facility] (45418) Comment: Performed By: #### REINIER, C/ MICAELA #### [place] [address] [place], [place] basic metabolic panel on 2019-08-27 Calcium [Mass/Vol] 9.1 8.4-10.4 mg/dL Normal 08-27-2019 [facility] (26677) Comment: Performed By: #### REINIER C/ MICAELA #### [facility] [employer] [facility] [address] [place], [place] Anion gap [Moles/Vol] 6 Normal 08-27-19 [facility] (02022) Comment: Performed By: #### REINIER, C/ MICAELA #### [facility] [address] [place], [place] CO2 [Moles/Vol] 29 22-30 mmol/L Normal 08-27-2019 [facility] (70911) Comment: Performed By: #### REINIER, C/ MICAELA #### [facility] [address] [place], [place] Creatinine [Mass/Vol] 0.70 0.52-1.25 mg/dL Normal 08-27-19 [facility] (71086) Comment: Performed By: #### REINIER, C/ MICAELA #### [facility] [address] [place], [place] GFR/1.73 sq M > 60.0 >60 mL/min/{1.73_m2} Normal 0 [facility] predicted among Syst em (53177) blacks MDRD (S/P/Bld) [Vol rate/Area] Comment: Performed By: #### Alla HILLS/ MICAELA #### [facility] [address] [place] [address] GFR/1.73 sq M > 60.0 >60 mL/min/{1.73_m2} Normal 0 [facility] predicted among Syst em (35074) non-blacks MDRD (S/P/Bld) [Vol rate/Area] Comment: Result Comment: Source- MDRD equation with creatinine calibration to IDMS(NKDEP) eGFR not recommended for nicolas g dose adjustment Performed By: #### Alla HILLS/ MICAELA #### [facility] [employer] [place] [address] [place] [address] Glucose [Mass/Vol] 92 70-100 mg/dL Normal 08-27-2019 [facility] [employer] [facility] (56561) Comment: Performed By: #### Alla HILLS/ MICAELA #### [employer] [place] [address] [place] [address] Urea nitrogen [Mass/Vol] 15 7-20 mg/dL Normal 08-26 [facility] [employer] [facility] (09202) Comment: Performed By: #### Alla HILLS/ MICAELA #### [facility] [place] [address] [place] [address] Chloride [Moles/Vol] 99 98-107 mmol/L Normal 0 [facility] (83014) Comment: Performed By: #### Alla HILLS/ MICAELA #### [employer] [place] [address] [place] [address] Potassium [Moles/Vol] 4.0 3.5-5.1 mmol/L Normal 08-27-19 20 [facility] [employer] (51020) Comment: Performed By: #### Alla HILLS/ MICAELA #### [employer] [facility] [address] [place] [address] Sodium [Moles/Vol] 134 135-145 mmol/L Low 08-27-2019 [facility] [employer] [facility] (70838) Comment: Performed By: #### Alla HILLS/ MICAELA #### [facility] [employer] [place] [address] [place] [address] No panel information on 2019-08-27 Anion gap [Moles/Vol] 6 mmol/L 08-27-19 20 [place] ([address]) Calcium [Mass/Vol] 9.1 8.4 - 10.4 mg/dL 08-27-2019 [place] ([address]) Chloride [Moles/Vol] 99 98 - 107 mmol/L 0 [place] ([address]) CO2 [Moles/Vol] 29 22 - 30 mmol/L 08-27-2019 [place] ([address]) Creatinine [Mass/Vol] 0.7 0.52 - 1.25 mg/dL 2019 [place] ([address]) EGFR IF NonAfrican >60.0 >60 mL/min 08-27-2019 [place] ([address]) Comment: Source- MDRD equation with c reatinine calibration to IDMS(NKDEP) eGFR not recommended for nicolas g dose adjustment GFR/1.73 sq M >60.0 >60 mL/min mL/min/{1.73_m2} 08-27-19 20 [facility] predicted among [facility], blacks MDRD SD (3289 7) (S/P/Bld) [Vol rate/Area] Glucose [Mass/Vol] 92 70 - 100 mg/dL 08-27-2019 [place] ([address]) Interpretation and Abnormal 08-27-2019 [facility] review of [facility] , laboratory results K Y (57631) Potassium 4.0 3.5 - 5.1 mmol/L 08-27-2019 [facility] [Moles/Vol] [place] ([address]) Sodium [Moles/Vol] 134 135 - 145 mmol/L Low 08-27-2019 [place] ([address]) Urea nitrogen 15 7 - 20 mg/dL 08-27-2019 [facility] [Mass/Vol] [place] ([address]) Test 08-27-2019 [facility] Performed by [facility], [facility] (022 42) System, [address] [place] [address] Absolute Baso # 0.1 0 - 0.2 10*3/uL 08-27-2019 [place] ([address]) Absolute Neut # 7.3 1.8 - 7 10*3/uL High 08-27-2019 [place] ([address]) Basophils/100 WBC 0.7 0 - 2 % 08-27-2019 M ercy (Bld) [place] ([address]) Eosinophils (Bld) 0.3 0 - 0.5 10*3/uL 08-27-2019 M ercy [#/Vol] [place] ([address]) Eosinophils/100 3.1 1 - 6 % 08-27-2019 [facility] cy WBC (Bld) [place] ([address]) Erythrocyte 13.7 11.5 - % 08-27-2019 [facility] distribution width 14.5 [facility], (RBC) [Ratio] [place] (45 237) Granulocytes/100 70.6 40 - 80 % 08-27-2019 Me rcy WBC (Bld) [place] ([address]) Hematocrit (Bld) 24.2 35 - 47 % Low 08-27-2019 Me rcy [Volume fraction] [place] ([address]) Hemoglobin (Bld) 8.5 11.7 - 16 g/dL Low 08-27-2019 Me rcy [Mass/Vol] [place] ([address]) Interpretation and Abnormal 08-27-2019 [facility] , laboratory results K Y (81548) Lymphocytes (Bld) 1.9 1 - 4.3 10*3/uL 08-27-2019 M ercy [#/Vol] [place] ([address]) Lymphocytes/100 18.7 20 - 40 % Low 08-27-2019 Dora cy WBC (Bld) [place] ([address]) MCH (RBC) [Entitic 31.5 26 - 34 pg 08-27-2019 [facility] mass] [place] ([address]) MCHC (RBC) 35.0 32 - 36 % 08-27-2019 [facility] [Mass/Vol] [place] ([address]) MCV (RBC) [Entitic 90.2 79 - 98 fL 03-17-2020 [facility] vol] [place] ([address]) Monocytes (Bld) 0.7 0 - 0.8 10*3/uL 08-27-2019 Dora cy [#/Vol] [place] ([address]) Monocytes/100 WBC 6.9 2 - 10 % 08-27-2019 M ercy (Bld) [place] ([address]) Platelet mean 7.0 7.4 - 10.4 fL Low 08-27-2019 [facility] y volume (Bld) [facility], [Entitic vol] [place] (45 237) Platelets (Bld) 327 140 - 440 10*3/uL 08-27-2019 Dora cy [#/Vol] [place] ([address]) RBC (Bld) [#/Vol] 2.69 3.8 - 5.2 10*6/uL Low 08-27-2019 [place] ([address]) WBC (Bld) [#/Vol] 10.4 3.6 - 10.7 10*3/uL 08-27-2019 [place], [place] ([address]) Test 08-27-2019 [facility] Performed by [facility] (452 37) System, [place] [address] hemogram w/ autodiff on 2019-08-26 Abs Baso Cnt 0.1 0.0-0.2 10*3/uL Normal 08-26-2019 [facility] [employer] [facility] (23816) Comment: Performed By: #### REINIER C/ MICAELA #### [facility] [employer] [facility] [address] [place] [address] Abs Neutrophile Cnt 7.4 1.8-7.0 10*3/uL High 08-26-2019 [facility] [employer] [facility] (40079) Comment: Performed By: #### REINIER C/ MICAELA #### [facility] [address] [place] [address] Basophils/100 WBC (Bld) 0.6 0.0-2.0 % Normal 2019 [facility] [employer] [facility] (44659) Comment: Performed By: #### REINIER C/ MICAELA #### [facility] [address], [place] Eosinophils (Bld) [#/Vol] 0.4 0.0-0.5 10*3/uL Normal 08-10 [facility] (52688) Comment: Performed By: #### Alla HILLS/ MICAELA #### [place] [address], [place] Eosinophils/100 WBC (Bld) 3.4 1.0-6.0 % Normal 08-10 [facility] (75741) Comment: Performed By: #### Alla HILLS/ MICAELA #### [place] [address], [place] Erythrocyte distribution 14.1 11.5-14.5 % Normal 08-25 [facility] width (RBC) [Ratio] (51255) Comment: Performed By: #### Alla HILLS/ MICAELA #### [place] [address], [place] Granulocytes/100 WBC (Bld) 70.6 40.0-80.0 % Normal [facility] (07813) Comment: Performed By: #### Alla HILLS/ MICAELA #### [place] [address], [place] Hematocrit (Bld) [Volume 24.5 35.0-47.0 % Low 08-25 [facility] fraction] (18284) Comment: Performed By: #### Alla HILLS/ MICAELA #### [place] [address], [place] Hemoglobin (Bld) [Mass/Vol] 8.3 11.7-16.0 g/dL Low [facility] (25997) Comment: Performed By: #### Alla HILLS/ MICAELA #### [place] [address], [place] Lymphocytes (Bld) [#/Vol] 2.0 1.0-4.3 10*3/uL Normal 08-10 [facility] (98004) Comment: Performed By: #### Alla HILLS/ MICAELA #### [facility] [address] [place] [address] Lymphocytes/100 WBC (Bld) 19.3 20.0-40.0 % Low - [facility] (75154) Comment: Performed By: #### Alla HILLS/ MICAELA #### [place] [address], [place] MCH (RBC) [Entitic mass] 30.3 26.0-34.0 pg Normal 08-25 [facility] (17506) Comment: Performed By: #### REINIER C/ MICAELA #### [place] [address], [place] MCHC (RBC) [Mass/Vol] 33.8 32.0-36.0 % Normal 08-26-19 [facility] (16014) Comment: Performed By: #### REINIER C/ MICAELA #### [place] [address], [place] MCV (RBC) [Entitic vol] 89.8 79.0-98.0 fL Normal 2019 [facility] (11651) Comment: Performed By: #### Alla HILLS/ MICAELA #### [place] [address], [place] Monocytes (Bld) [#/Vol] 0.6 0.0-0.8 10*3/uL Normal 2019 [facility] (15116) Comment: Performed By: #### REINIER C/ MICAELA #### [place] [address], [place] Monocytes/100 WBC (Bld) 6.1 2.0-10.0 % Normal 2019 [facility] (62294) Comment: Performed By: #### REINIER C/ MICAELA #### [place] [address], [place] Platelet mean volume (Bld) 7.5 7.4-10.4 fL Normal [facility] [Entitic vol] (92571 ) Comment: Performed By: #### REINIER C/ MICAELA #### [facility] [address], [place] Platelets (Bld) [#/Vol] 311 140-440 10*3/uL Normal 2019 [facility] (41964) Comment: Performed By: #### REINIER C/ MICAELA #### [facility] [address], [place] RBC (Bld) [#/Vol] 2.73 3.80-5.20 10*6/uL Low 08-26-2019 [facility] (22212) Comment: Performed By: #### REINIER C/ MICAELA #### [facility] [address], [place] WBC (Bld) [#/Vol] 10.4 3.6-10.7 10*3/uL Normal 08-26-2019 [facility] (38734) Comment: Performed By: #### REINIER C/ MICAELA #### [place] [address], [place] basic metabolic panel on 2019-08-26 Calcium [Mass/Vol] 9.1 8.4-10.4 mg/dL Normal 08-26-2019 [facility] (50379) Comment: Performed By: #### REINIER C/ MICAELA #### [place] [address], [place] Glucose [Mass/Vol] 91 70-100 mg/dL Normal 08-26-2019 [facility] (36684) Comment: Performed By: #### REINIER C/ MICAELA #### [facility] [address], [place] Anion gap [Moles/Vol] 5 Normal 08-26-19 20 [facility] (59997) Comment: Performed By: #### REINIER C/ MICAELA #### [facility] [address], [place] CO2 [Moles/Vol] 29 22-30 mmol/L Normal 08-26-2019 [facility] (52104) Comment: Performed By: #### CXTIS, C/ MICAELA #### [employer] [address], [place] Creatinine [Mass/Vol] 0.66 0.52-1.25 mg/dL Normal 08-26-19 [facility] [employer] [facility] (31850) Comment: Performed By: #### Alla HILLS/ MICAELA #### [employer] [address], [place] GFR/1.73 sq M > 60.0 >60 mL/min/{1.73_m2} Normal 0 [facility] predicted among Syst em ([address]) blacks MDRD (S/P/Bld) [Vol rate/Area] Comment: Performed By: #### Alla HILLS/ MICAELA #### [employer] [address], [place] GFR/1.73 sq M > 60.0 >60 mL/min/{1.73_m2} Normal 0 [facility] predicted among Syst em ([address]) non-blacks MDRD (S/P/Bld) [Vol rate/Area] Comment: Result Comment: Source- MDRD equation with creatinine calibration to IDMS(NKDEP) eGFR not recommended for nicolas g dose adjustment Performed By: #### Alla HILLS/ MICAELA #### [employer] [address], [place] Urea nitrogen [Mass/Vol] 15 7-20 mg/dL Normal 08-25 [facility] [employer] [facility] (83619) Comment: Performed By: #### Alla HILLS/ MICAELA #### [employer] [address], [place] Chloride [Moles/Vol] 100 98-107 mmol/L Normal 0 [facility] (68825) Comment: Performed By: #### Alla HILLS/ MICAELA #### [employer] [address], [place] Potassium [Moles/Vol] 4.0 3.5-5.1 mmol/L Normal 08-26-19 20 [facility] [employer] (16022) Comment: Performed By: #### Alla HILLS/ MICAELA #### [facility] [address] [place] [address] Sodium [Moles/Vol] 134 135-145 mmol/L Low 08-26-2019 [facility] (96634) Comment: Performed By: #### Alla HILLS/ MICAELA #### [facility] [address] [place] [address] No panel information on 2019-08-26 Interpretation and review Abnormal 08-10 [place] of laboratory results ([address]) Vancomycin Tr 12.4 15 - 20 ug/mL Low 08-26-2019 [place] ([address]) Comment: . Test Performed by 08-26-2019 [place] ([address]) [facility], [address] [place] [address] Anion gap 5 mmol/L 08-26-2019 [facility] [Moles/Vol] [place] ( [address]) Calcium [Mass/Vol] 9.1 8.4 - 10.4 mg/dL 08-26-2019 [place], [place] ([address]) Chloride 100 98 - 107 mmol/L 08-26-2019 [facility] [Moles/Vol] [place] ( [address]) CO2 [Moles/Vol] 29 22 - 30 mmol/L 08-26-2019 [place] (64 [address]) Creatinine 0.66 0.52 - 1.25 mg/dL 08-26-2019 [facility] [Mass/Vol] [place], [place] (4 [address]) EGFR IF NonAfrican >60.0 >60 mL/min 08-26-2019 [place], [place] (89 [address]) Comment: Source- MDRD equation with c reatinine calibration to IDMS(NKDEP) eGFR not recommended for nicolas g dose adjustment GFR/1.73 sq M >60.0 >60 mL/min mL/min/{1.73_m2} 08-26-19 20 [facility] predicted among [facility] [place] MDRD [place] (2840 7) (S/P/Bld) [Vol rate/Area] Glucose [Mass/Vol] 91 70 - 100 mg/dL 08-26-2019 [place] ([address]) Interpretation and Abnormal 08-26-2019 [facility] of [facility] , laboratory results K Y (01109) Potassium 4.0 3.5 - 5.1 mmol/L 08-26-2019 [facility] [Moles/Vol] [place] ([address]) Sodium [Moles/Vol] 134 135 - 145 mmol/L Low 08-26-2019 [place] ([address]) Urea nitrogen 15 7 - 20 mg/dL 08-26-2019 [facility] [Mass/Vol] [facility] [place] ([address]) Test 08-26-2019 [facility] Performed by [facility] (542 55) [facility], [address] [place] [address] Absolute Baso # 0.1 0 - 0.2 10*3/uL 08-26-2019 [place] ([address]) Absolute Neut # 7.4 1.8 - 7 10*3/uL High 08-26-2019 [place] ([address]) Basophils/100 WBC 0.6 0 - 2 % 08-26-2019 [facility] (Bld) [place] ([address]) Eosinophils (Bld) 0.4 0 - 0.5 10*3/uL 08-26-2019 [facility] [#/Vol] [place] ([address]) Eosinophils/100 3.4 1 - 6 % 08-26-2019 [facility] cy WBC (Bld) [place] ([address]) Erythrocyte 14.1 11.5 - % 08-26-2019 [facility], (R[facility] [Ratio] [place] (45 237) Granulocytes/100 70.6 40 - 80 % 08-26-2019 [facility] WBC (Bld) [place] ([address]) Hematocrit (Bld) 24.5 35 - 47 % Low 08-26-2019 [facility] [Volume fraction] [place] ([address]) Hemoglobin (Bld) 8.3 11.7 - 16 g/dL Low 08-26-2019 [facility] [Mass/Vol] [place] ([address]) Interpretation and Abnormal 08-26-2019 [facility] review of [facility] , laboratory results K Y (72399) Lymphocytes (Bld) 2.0 1 - 4.3 10*3/uL 08-26-2019 [facility] [#/Vol] [place] ([address]) Lymphocytes/100 19.3 20 - 40 % Low 08-26-2019 [facility] WBC (Bld) [place] ([address]) MCH (RBC) [Entitic 30.3 26 - 34 pg 08-26-2019 [facility] mass] [place] ([address]) MCHC (RBC) 33.8 32 - 36 % 08-26-2019 [facility] [Mass/Vol] [place] ([address]) MCV (RBC) [Entitic 89.8 79 - 98 fL 08-26-2019 [facility] vol] [place] ([address]) Monocytes (Bld) 0.6 0 - 0.8 10*3/uL 08-26-2019 [facility] [#/Vol] [place] ([address]) Monocytes/100 WBC 6.1 2 - 10 % 08-26-2019 [facility] (Bld) [place] ([address]) Platelet mean 7.5 7.4 - 10.4 fL 08-26-2019 [facility] y volume (Bld) [facility], [Entitic vol] [place] (45 237) Platelets (Bld) 311 140 - 440 10*3/uL 08-26-2019 [facility] cy [#/Vol] [place] ([address]) RBC (Bld) [#/Vol] 2.73 3.8 - 5.2 10*6/uL Low 08-26-2019 [place] ([address]) WBC (Bld) [#/Vol] 10.4 3.6 - 10.7 10*3/uL 08-26-2019 [place] ([address]) Test 08-26-2019 [facility] Performed by [facility] (452 37) [facility], [facility] [place] [address] hemogram w/ autodiff on 2019-08-25 Abs Baso Cnt 0.1 0.0-0.2 10*3/uL Normal 08-25-2019 [facility] [employer] [facility] (45214) Comment: Performed By: #### CXTIS, C/ MICAELA #### [facility] [address], [place] Abs Neutrophile Cnt 5.5 1.8-7.0 10*3/uL Normal 08-25-2019 [facility] (66353) Comment: Performed By: #### Alla HILLS/ MICAELA #### [place] [address], [place] Basophils/100 WBC (Bld) 0.9 0.0-2.0 % Normal 2019 [facility] (79929) Comment: Performed By: #### REINIER C/ MICAELA #### [place] [address], [place] Eosinophils (Bld) [#/Vol] 0.1 0.0-0.5 10*3/uL Normal 08-10 [facility] (41356) Comment: Performed By: #### Alla HILLS/ MICAELA #### [place] [address] [place], [place] Eosinophils/100 WBC (Bld) 1.7 1.0-6.0 % Normal 08-10 [facility] (17909) Comment: Performed By: #### Alla HILLS/ MICAELA #### [place] [address], [place] Erythrocyte distribution 14.0 11.5-14.5 % Normal 08-24 [facility] width (RBC) [Ratio] (27177) Comment: Performed By: #### Alla HILLS/ MICAELA #### [place] [address] [place], [place] Granulocytes/100 WBC (Bld) 65.3 40.0-80.0 % Normal [facility] (85893) Comment: Performed By: #### Alla HILLS/ MICAELA #### [place] [address], [place] Hematocrit (Bld) [Volume 22.9 35.0-47.0 % Low 08-24 [facility] fraction] (58900) Comment: Performed By: #### Alla HILLS/ MICAELA #### [place] [address] [place], [place] Hemoglobin (Bld) [Mass/Vol] 7.8 11.7-16.0 g/dL Low [facility] (13486) Comment: Performed By: #### Alla HILLS/ MICAELA #### [place] [address] [place], [place] Lymphocytes (Bld) [#/Vol] 2.1 1.0-4.3 10*3/uL Normal 08-10 [facility] (18644) Comment: Performed By: #### Alla HILLS/ MICAELA #### [place] [address] [place], [place] Lymphocytes/100 WBC (Bld) 25.1 20.0-40.0 % Normal 08-10 [facility] (29352) Comment: Performed By: #### Alla HILLS/ MICAELA #### [place] [address] [place], [place] MCH (RBC) [Entitic mass] 30.9 26.0-34.0 pg Normal 08-24 [facility] (75376) Comment: Performed By: #### Alla HILLS/ MICAELA #### [place] [address] [place], [place] MCHC (RBC) [Mass/Vol] 34.2 32.0-36.0 % Normal 08-25-19 [facility] (25835) Comment: Performed By: #### Alla HILLS/ MICAELA #### [place] [address] [place], [place] MCV (RBC) [Entitic vol] 90.5 79.0-98.0 fL Normal 2019 [facility] (33903) Comment: Performed By: #### REINIER C/ MICAELA #### [place] [address] [place], [place] Monocytes (Bld) [#/Vol] 0.6 0.0-0.8 10*3/uL Normal 2019 [facility] (31378) Comment: Performed By: #### REINIER C/ MICAELA #### [facility] [address], [place] Monocytes/100 WBC (Bld) 7.0 2.0-10.0 % Normal 2019 [facility] (59389) Comment: Performed By: #### REINIER C/ MICAELA #### [facility] [address], [place] Platelet mean volume (Bld) 7.9 7.4-10.4 fL Normal [facility] [Entitic vol] (10371 ) Comment: Performed By: #### REINIER C/ MICAELA #### [facility] [employer] [facility] [address], [place] Platelets (Bld) [#/Vol] 287 140-440 10*3/uL Normal 2019 [facility] (70444) Comment: Performed By: #### REINIER C/ MICAELA #### [facility] [employer] [place] [address], [place] RBC (Bld) [#/Vol] 2.53 3.80-5.20 10*6/uL Low 08-25-2019 [facility] (61954) Comment: Performed By: #### REINIER C/ MICAELA #### [place] [address] [place], [place] WBC (Bld) [#/Vol] 8.4 3.6-10.7 10*3/uL Normal 08-25-2019 [facility] (69039) Comment: Performed By: #### REINIER C/ MICAELA #### [facility] [employer] [facility] [address], [place] basic metabolic panel on 2019-08-25 Anion gap [Moles/Vol] 4 Normal 08-25-19 20 [facility] (55920) Comment: Performed By: #### REINIER C/ MICAELA #### [facility] [employer] [facility] [address], [place] Calcium [Mass/Vol] 8.5 8.4-10.4 mg/dL Normal 08-25-2019 [facility] (26320) Comment: Performed By: #### REINIER C/ MICAELA #### [facility] [address], [place] CO2 [Moles/Vol] 28 22-30 mmol/L Normal 08-25-2019 [facility] (24351) Comment: Performed By: #### REINIER C/ MICAELA #### [facility] [address], [place] Glucose [Mass/Vol] 92 70-100 mg/dL Normal 08-25-2019 [facility] (22135) Comment: Performed By: #### REINIER C/ MICAELA #### [facility] [address], [place] Urea nitrogen [Mass/Vol] 22 7-20 mg/dL High 08-24 [facility] (09518) Comment: Performed By: #### REINIER C/ MICAELA #### [facility] [address], [place] Creatinine [Mass/Vol] 0.75 0.52-1.25 mg/dL Normal 08-25-[address] [place] [address] ([address]) Comment: Performed By: #### REINIER C/ MICAELA #### [facility] [address], [place] GFR/1.73 sq M > 60.0 >60 mL/min/{1.73_m2} Normal 0 [facility] predicted among Syst em (57919) blacks MDRD (S/P/Bld) [Vol rate/Area] Comment: Performed By: #### REINIER C/ MICAELA #### [facility] [address], [place] GFR/1.73 sq M > 60.0 >60 mL/min/{1.73_m2} Normal 0 [facility] predicted among Syst em (75746) non-blacks MDRD (S/P/Bld) [Vol rate/Area] Comment: Result Comment: Source- MDRD equation with creatinine calibration to IDMS(NKDEP) eGFR not recommended for nicolas g dose adjustment Performed By: #### REINIER C/ MICAELA #### [facility] [employer] [facility] [address], [place] Potassium [Moles/Vol] 3.7 3.5-5.1 mmol/L Normal 08-25-19 20 [facility] (76673) Comment: Performed By: #### REINIER C/ MICAELA #### [facility] [employer] [facility] [address], [place] Sodium [Moles/Vol] 134 135-145 mmol/L Low 08-25-2019 [facility] (30033) Comment: Performed By: #### REINIER C/ MICAELA #### [facility] [address], [place] Chloride [Moles/Vol] 101 98-107 mmol/L Normal 0 [facility] (01547) Comment: Performed By: #### REINIER C/ MICAELA #### [facility] [employer] [facility] [address], [place] No panel information on 2019-08-25 Anion gap [Moles/Vol] 4 mmol/L 08-25-19 20 [place] ([address]) Calcium [Mass/Vol] 8.5 8.4 - 10.4 mg/dL 08-25-2019 [place] ([address]) Chloride [Moles/Vol] 101 98 - 107 mmol/L 0 [place] ([address]) CO2 [Moles/Vol] 28 22 - 30 mmol/L 08-25-2019 [place] ([address]) Creatinine [Mass/Vol] 0.75 0.52 - 1.25 mg/dL 2019 [place] ([address]) EGFR IF NonAfrican >60.0 >60 mL/min 08-25-2019 [place] ([address]) Comment: Source- MDRD equation with c reatinine calibration to IDMS(NKDEP) eGFR not recommended for nicolas g dose adjustment GFR/1.73 sq M >60.0 >60 mL/min mL/min/{1.73_m2} 03-15-20 20 [facility] predicted among [facility] [place], [place] MDRD [place] (4523 7) (S/P/Bld) [Vol rate/Area] Glucose [Mass/Vol] 92 70 - 100 mg/dL 08-25-2019 [place] ([address]) Interpretation and Abnormal 08-25-2019 [facility] review of [facility] , laboratory results K Y (17510) Potassium 3.7 3.5 - 5.1 mmol/L 08-25-2019 [facility] [Moles/Vol] [place] ([address]) Sodium [Moles/Vol] 134 135 - 145 mmol/L Low 08-25-2019 [place] ([address]) Urea nitrogen 22 7 - 20 mg/dL High 08-25-2019 [facility] [Mass/Vol] [place] ([address]) Test 08-25-2019 [facility] Performed by [facility] (990 37) [facility], [address] [place] [address] Absolute Baso # 0.1 0 - 0.2 10*3/uL 08-25-2019 [place] ([address]) Absolute Neut # 5.5 1.8 - 7 10*3/uL 08-25-2019 [place] ([address]) Basophils/100 WBC 0.9 0 - 2 % 08-25-2019 [facility] (Bld) [place] ([address]) Eosinophils (Bld) 0.1 0 - 0.5 10*3/uL 08-25-2019 [facility] [#/Vol] [place] ([address]) Eosinophils/100 1.7 1 - 6 % 08-25-2019 [facility] WBC (Bld) [place] ([address]) Erythrocyte 14.0 11.5 - % 08-25-2019 [facility] distribution width 14.5 [facility], (RBC) [Ratio] [place] (45 237) Granulocytes/100 65.3 40 - 80 % 08-25-2019 [facility] WBC (Bld) [place] ([address]) Hematocrit (Bld) 22.9 35 - 47 % Low 08-25-2019 [facility] [Volume fraction] [place] ([address]) Hemoglobin (Bld) 7.8 11.7 - 16 g/dL Low 08-25-2019 [facility] [Mass/Vol] [place] ([address]) Interpretation and Abnormal 08-25-2019 [facility] of [facility] , laboratory results K Y (15531) Lymphocytes (Bld) 2.1 1 - 4.3 10*3/uL 08-25-2019 [facility] [#/Vol] [place] ([address]) Lymphocytes/100 25.1 20 - 40 % 08-25-2019 [facility] WBC (Bld) [place] ([address]) MCH (RBC) [Entitic 30.9 26 - 34 pg 08-25-2019 [facility] mass] [place] ([address]) MCHC (RBC) 34.2 32 - 36 % 08-25-2019 [facility] [Mass/Vol] [place] ([address]) MCV (RBC) [Entitic 90.5 79 - 98 fL 08-25-2019 [facility] vol] [place] ([address]) Monocytes (Bld) 0.6 0 - 0.8 10*3/uL 08-25-2019 [facility] [#/Vol] [place] ([address]) Monocytes/100 WBC 7.0 2 - 10 % 08-25-2019 [facility] (Bld) [place] ([address]) Platelet mean 7.9 7.4 - 10.4 fL 08-25-2019 [facility] y volume (Bld) [facility], [Entitic vol] [place] (45 237) Platelets (Bld) 287 140 - 440 10*3/uL 08-25-2019 [facility] [#/Vol] [place] ([address]) RBC (Bld) [#/Vol] 2.53 3.8 - 5.2 10*6/uL Low 08-25-2019 [place] ([address]) WBC (Bld) [#/Vol] 8.4 3.6 - 10.7 10*3/uL 08-25-2019 [place] ([address]) Test 08-25-2019 [facility] Performed by [facility] (538 37) [address] [address] op note on Op Note PATIENT: DENYS ARRIOLA Normal 2019 [facility] (72390) ADMISSION DATE: 08/14/2019 SURGERY DATE: 08/24/2019 DATE OF : 1985 AGE: 33 ADMITTING PHYSICIAN: Jesse Burnham MD ATTENDING PHYSICIAN: Deon Davila MD DICTATING PHYSICIAN: Deon Davila MD OPERATIVE RECORD Procedures: 1. APPLICATION OF DARRELL SPATIAL FRAME, LEFT LOWER EXTREMITY . 2. EXCHANGE OF ANTIBIOTIC CEMENT SPACER, LEFT TIBIA. 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 Anesthesia: General. Assistants: 1. Carrington Stephens M.D. 2. German Cabrera M.D. Estimated Blood Loss: 50 cc. Fluids: Crystalloid. Clinical History: The patient is a 33-year-old female who wa s treated at outside facility with ORIF of the left distal tibia and f ibula fracture. She had a wound breakdown and had exposed hardware for approximately 3-4 months, was eventually brought to our faci lity for management of this problem. She had hardware removal, debrid ement, and antibiotic cement spacer placement which required covera ge by Plastic Surgery. She underwent ALT flap, but the flap could not be inset due to bulk and postoperative films from her flap proc edure showed significant increase in displacement of the tibia. Th erefore, options for treatment reviewed including internal fixation w ith cement spacer or temporizing external fixation, conversion to ORIF down the road versus treatment in totality with a Darrell Spatial fram e, but still requiring bone graft in the future. After considering the various options, the patient elected to proceed with applica tion of Darrell Spatial frame after the flap was debulked and inset b y Plastic Surgery. This was done as a combination procedure and that p ortion will be dictated under a separate note by Dr. Burnham. Description of Procedure: The patient was identified in the preoperative holding area. Surgical site was identified and marked. Informed consent was obtained and placed in the chart. The p atient was then brought to the operating room and placed supine on the operating table. Anesthesia was administered. Care of the he ad, neck, and airway was maintained by the anesthesia staff thro ughout the entire procedure. All bony prominences were identified and p added. Left lower extremity was then prepped and draped in the usua l sterile fashion. Time-out was performed. Antibiotics were being given schedul ed through her PICC line. The leg was sized for rings and this was pre-assembled while Plastic Surgery was performing the flap debulking and the secondary inset. Once this was complete, attention w as turned towards application of a Darrell Spatial frame. Two 180 mm fu ll rings were utilized on the tibia with a 180 mm long foot ring. Thi s was assembled to the distal ring using 4 cm threaded post. Mediu m stress were used to assemble the two 180 mm full rings. The pre-ass embled frame was then slid on the leg. A transverse skinny wire was placed just superior to the tibial plafond, parallel to the ankle j oint, and perpendicular to the second metatarsal. The distal 180 ring was assembled to this. The lateral image of the ankle was obtain ed to confirm this ring was orthogonal to the tibia on the lateral and a second point of fixation was placed using a Schanz pin direc tly on the ring. Proximally, x-ray was used to confirm the proximal rin g was orthogonal to the tibia in both AP and lateral imaging. This was held in place with 2 Schanz pins through a 4-hole Rancho cube. Ad ditional Schanz pins ultimately were placed distal to the ring using Rancho cubes. All Schanz pins were predrilled, irrigated, and place d on hand power with their depth confirmed using fluoroscopy. Distally , given the very poor bone quality and tenuous fixation, the foot ri ng had been chosen to be utilized and multiple points of fixation w ere placed through the foot ring including a Schanz pin in the calcaneu s and multiple thin wires through the mid and forefoot. The wires were tensioned to 110 or 130 and one directly on the ring and the n 90 when build off the ring. It should be noted that prior to complet ion of the flap inset, the previous cement spacer was changed out u sing a half patch of cement and mixture of vancomycin and tobramyci n antibiotic powder. The flap had been sewed down and after e frame was assembled, attempted improved reduction of the tibia was made. However, given the cement position at that time, I block our ability to improve the alignment on the lateral, therefore this was accepted. This will be corrected at her bone grafting procedure. All p in sites were dressed and compressive wrap was applied. Ultrasound wa s used to confirm the flap had good flow. The patient was then extubat ed and taken to PACU in stable condition without complication. Diskriter Job ID: [id number] Deon Davila MD DOD:08/24/2019 11:31 A EM/dsk DOT:08/24/2019 12:13 P Job Number: [id number] Document Number: [id number] cc: Deon Davila MD [address] [place] [address] [place] [address] hemogram w/ autodiff on 2019-08-24 Abs Baso Cnt 0.0 0.0-0.2 10*3/uL Normal 08-24-2019 [facility] ([id number]) Comment: Performed By: #### CXTIS ### # [address] [place] [place] [facility] [place] #### C/MICAELA #### [address] [address] [place] Abs Neutrophile Cnt 12.0 1.8-7.0 10*3/uL High 08-24-2019 [facility] (27524) Comment: Performed By: #### CXTIS ### # [address] [place] [facility] [place] #### C/MICAELA #### [address] Basophils/100 WBC (Bld) 0.1 0.0-2.0 % Normal 2019 [facility] (38410) Comment: Performed By: #### CXTIS ### # [address] [place] [facility] [place] #### C/MICAELA #### [address] Eosinophils (Bld) [#/Vol] 0.0 0.0-0.5 10*3/uL Normal 08-10 [facility] (26129) Comment: Performed By: #### CXTIS ### # [facility] [address] [place] [facility] [address] [place] #### C/MICAELA #### [facility] [address] [place], [place] Eosinophils/100 WBC (Bld) 0.3 1.0-6.0 % Low 08-10 [facility] (52886) Comment: Performed By: #### CXTIS ### # [facility] [place] [place] [facility] [place] #### C/MICAELA #### [facility] [place] [place] Erythrocyte distribution 13.5 11.5-14.5 % Normal 08-23 [facility] width (RBC) [Ratio] (31093) Comment: Performed By: #### CXTIS ### # [facility] [place] [place] [facility] [address] [place], [place] #### C/MICAELA #### [facility] [place] [place] Granulocytes/100 WBC (Bld) 92.5 40.0-80.0 % High [facility] (10472) Comment: Performed By: #### CXTIS ### # [facility] [address] [place] [facility] [address] [place] #### C/MICAELA #### [facility] [address] [place] Hematocrit (Bld) [Volume 25.8 35.0-47.0 % Low 08-23 [facility] fraction] (25194) Comment: Performed By: #### CXTIS ### # [facility] [address] [place] [facility] [address] [place] #### C/MICAELA #### [facility] [address] [place], [place] Hemoglobin (Bld) [Mass/Vol] 8.9 11.7-16.0 g/dL Low [facility] (03706) Comment: Performed By: #### CXTIS ### # [facility] [place] [place] [facility] [place] #### C/MICAELA #### [facility] [place] [place] Lymphocytes (Bld) [#/Vol] 0.6 1.0-4.3 10*3/uL Low 08-10 [facility] (38765) Comment: Performed By: #### CXTIS ### # [facility] [place] [place] [facility] [place] #### C/MICAELA #### [facility] [place] [place] Lymphocytes/100 WBC (Bld) 4.6 20.0-40.0 % Low 08-10 [facility] (00999) Comment: Performed By: #### CXTIS ### # [facility] [place] [place] [facility] [address] [place] #### C/MICAELA #### [facility] [address] [place], [place] MCH (RBC) [Entitic mass] 30.8 26.0-34.0 pg Normal 08-23 [facility] (49997) Comment: Performed By: #### CXTIS ### # [facility] [address] [place] [facility] [address] [place] #### C/MICEALA #### [facility] [address] [place], [place] MCHC (RBC) [Mass/Vol] 34.5 32.0-36.0 % Normal 08-24-19 20 [facility] (18660) Comment: Performed By: #### CXTIS ### # [facility] [address] [place] [facility] [address] [place] #### C/MICAELA #### [facility] [address] [place] MCV (RBC) [Entitic vol] 89.2 79.0-98.0 fL Normal 2019 [facility] (29032) Comment: Performed By: #### CXTIS ### # [facility] [place] [place] [facility] [address] [place] #### C/MICAELA #### [facility] [place] [place] Monocytes (Bld) [#/Vol] 0.3 0.0-0.8 10*3/uL Normal 2019 [facility] (27425) Comment: Performed By: #### CXTIS ### # [facility] [place] [place] [facility] [address] [place] #### C/MICAELA #### [facility] [place] [place] Monocytes/100 WBC (Bld) 2.5 2.0-10.0 % Normal 2019 [facility] (62256) Comment: Performed By: #### CXTIS ### # [facility] [place] [place] [facility] [address] [place] #### C/MICAELA #### [facility] [address] [place], [place] Platelet mean volume (Bld) 7.1 7.4-10.4 fL Low [facility] [Entitic vol] (73707 ) Comment: Performed By: #### CXTIS ### # [facility] [address] [place] [facility] [address] [place] #### C/MICAELA #### [facility] [address] [place] Platelets (Bld) [#/Vol] 327 140-440 10*3/uL Normal 2019 [facility] (61496) Comment: Performed By: #### CXTIS ### # [facility] [place] [facility] [address] [place] #### C/MICAELA #### [facility] [address] [place], [place] RBC (Bld) [#/Vol] 2.90 3.80-5.20 10*6/uL Low 08-24-2019 [facility] (29218) Comment: Performed By: #### CXTIS ### # [facility] [place] [place] [facility] [address] [place] #### C/MICAELA #### [facility] [address] [facility], [place] WBC (Bld) [#/Vol] 13.0 3.6-10.7 10*3/uL High 08-24-2019 [facility] (91467) Comment: Performed By: #### CXTIS ### # [facility] [address] [place] [facility] [address] [facility], [place] #### C/MICAELA #### [facility] [address] [facility] basic metabolic panel on 2019-08-24 Calcium [Mass/Vol] 9.3 8.4-10.4 mg/dL Normal 08-24-2019 [facility] (32848) Comment: Performed By: #### CXTIS ### # [facility] [address] [place] [facility] [address] [place] #### C/MICAELA #### [facility] [address] [place] Anion gap [Moles/Vol] 6 Normal 08-24-19 [facility] (75328) Comment: Performed By: #### CXTIS ### # [facility] [address] [place] [facility] [address] [place] #### C/MICAELA #### [facility] [address] [place], [place] CO2 [Moles/Vol] 27 22-30 mmol/L Normal 08-24-2019 [facility] (46115) Comment: Performed By: #### CXTIS ### # [facility] [address] [place] [facility] [address] [facility] #### C/MICAELA #### [facility] [address] [place] Creatinine [Mass/Vol] 0.64 0.52-1.25 mg/dL Normal 08-24-19 [facility] (49085) Comment: Performed By: #### CXTIS ### # [facility] [address] [facility] [place] [facility] [address] [facility] #### C/MICAELA #### [facility] [address] [facility] [place] GFR/1.73 sq M > 60.0 >60 mL/min/{1.73_m2} Normal 0 [facility] [employer] predicted among Syst em (67490) blacks MDRD (S/P/Bld) [Vol rate/Area] Comment: Performed By: #### CXTIS ### # [facility] [address] [place] [facility] [address] [place] #### C/MICAELA #### [facility] [address] [place] GFR/1.73 sq M > 60.0 >60 mL/min/{1.73_m2} Normal 0 [facility] predicted among Syst em (10033) non-blacks MDRD (S/P/Bld) [Vol rate/Area] Comment: Result Comment: Source- MDRD equation with creatinine calibration to IDMS(NKDEP) eGFR not recommended for nicolas g dose adjustment Performed By: #### CXTIS ### # [facility] [address] [place] [facility] [address] [place] #### C/MICAELA #### [facility] [address] [place], [place] Glucose [Mass/Vol] 115 70-100 mg/dL High 08-24-2019 [facility] [facility] (16775) Comment: Performed By: #### CXTIS ### # [facility] [address] [place] [facility] [address] [place] #### C/MICAELA #### [facility] [address] [place] Urea nitrogen [Mass/Vol] 16 7-20 mg/dL Normal 08-23 [facility] [facility] (10166) Comment: Performed By: #### CXTIS ### # [facility] [address] [place] [facility] [address] [place] #### C/MICAELA #### [facility] [address] [place] Chloride [Moles/Vol] 99 98-107 mmol/L Normal 0 [employer] (93479) Comment: Performed By: #### CXTIS ### # [facility] [address] [place] [facility] [address] [place] #### C/MICAELA #### [facility] [address] [place] Potassium [Moles/Vol] 4.5 3.5-5.1 mmol/L Normal 08-24-19 20 [facility] [facility] (86829) Comment: Performed By: #### CXTIS ### # [facility] [address] [place] [facility] [address] [place] #### C/MICAELA #### [facility] [address] [place], [place] Sodium [Moles/Vol] 132 135-145 mmol/L Low 08-24-2019 [facility] [facility] (28235) Comment: Performed By: #### CXTIS ### # [facility] [address] [place] [facility] [address] [place] #### C/MICAELA #### [facility] [address] [place] No panel information on 2019-08-24 Anion gap [Moles/Vol] 6 mmol/L 08-24-19 20 [facility] [place] ([address]) Calcium [Mass/Vol] 9.3 8.4 - 10.4 mg/dL 08-24-2019 [place] ([address]) Chloride [Moles/Vol] 99 98 - 107 mmol/L 0 [facility] [place] ([address]) CO2 [Moles/Vol] 27 22 - 30 mmol/L 08-24-2019 [facility] [place] ([address]) Creatinine [Mass/Vol] 0.64 0.52 - 1.25 mg/dL 2019 [place] ([address]) EGFR IF NonAfrican >60.0 >60 mL/min 08-24-2019 [place], [place] [facility] (42705) Comment: Source- MDRD equation with c reatinine calibration to IDMS(NKDEP) eGFR not recommended for nicolas g dose adjustment GFR/1.73 sq M >60.0 >60 mL/min mL/min/{1.73_m2} 08-24-19 20 [facility] predicted among [place], [place] MDRD SD (5223 7) (S/P/Bld) [Vol rate/Area] Glucose [Mass/Vol] 115 70 - 100 mg/dL High 08-24-2019 [place] ([address]) Interpretation and Abnormal 08-24-2019 [facility] review of [facility] , laboratory results K Y (01218) Potassium 4.5 3.5 - 5.1 mmol/L 08-24-2019 [facility] [Moles/Vol] [place] ([address]) Sodium [Moles/Vol] 132 135 - 145 mmol/L Low 08-24-2019 [place] ([address]) Urea nitrogen 16 7 - 20 mg/dL 08-24-2019 [facility] [Mass/Vol] [place] ([address]) Test 08-24-2019 [facility] Performed by [facility] (467 98) [facility], [address] [place] [address] Absolute Baso # 0.0 0 - 0.2 10*3/uL 08-24-2019 [place] ([address]) Absolute Neut # 12.0 1.8 - 7 10*3/uL High 08-24-2019 [place] ([address]) Basophils/100 WBC 0.1 0 - 2 % 08-24-2019 [facility] (Bld) [place] ([address]) Eosinophils (Bld) 0.0 0 - 0.5 10*3/uL 08-24-2019 M [facility] [#/Vol] [place] ([address]) Eosinophils/100 0.3 1 - 6 % Low 08-24-2019 [facility] WBC (Bld) [place] ([address]) Erythrocyte 13.5 11.5 - % 08-24-2019 [facility] distribution [facility] (RBC) [Ratio] [place] (45 237) Granulocytes/100 92.5 40 - 80 % High 08-24-2019 [facility] WBC (Bld) [place] ([address]) Hematocrit (Bld) 25.8 35 - 47 % Low 08-24-2019 Me [facility] [Volume fraction] [place] ([address]) Hemoglobin (Bld) 8.9 11.7 - 16 g/dL Low 08-24-2019 [facility] [Mass/Vol] [place] ([address]) Interpretation and Abnormal 08-24-2019 [facility] , laboratory results K Y (39940) Lymphocytes (Bld) 0.6 1 - 4.3 10*3/uL Low 08-24-2019 M [facility] [#/Vol] [place] ([address]) Lymphocytes/100 4.6 20 - 40 % Low 08-24-2019 [facility] WBC (Bld) [place] ([address]) MCH (RBC) [Entitic 30.8 26 - 34 pg 08-24-2019 [facility] mass] [place] ([address]) MCHC (RBC) 34.5 32 - 36 % 08-24-2019 [facility] [Mass/Vol] [facility] [place] (28629) MCV (RBC) [Entitic 89.2 79 - 98 fL 08-24-2019 [facility] vol] [place] ([address]) Monocytes (Bld) 0.3 0 - 0.8 10*3/uL 08-24-2019 [facility] cy [#/Vol] [place] ([address]) Monocytes/100 WBC 2.5 2 - 10 % 08-24-2019 M [facility] (Bld) [place] ([address]) Platelet mean 7.1 7.4 - 10.4 fL Low 08-24-2019 Merc y volume (Bld) [facility], [Entitic vol] [place] (45 237) Platelets (Bld) 327 140 - 440 10*3/uL 08-24-2019 Dora cy [#/Vol] [place] ([address]) RBC (Bld) [#/Vol] 2.90 3.8 - 5.2 10*6/uL Low 08-24-2019 [place] ([address]) WBC (Bld) [#/Vol] 13.0 3.6 - 10.7 10*3/uL High 08-24-2019 [place] ([address]) Test 08-24-2019 [facility] Performed by [facility] (452 37) System, [address] [place] [address] vancomycin trough o n 2019-08-23 Vancomycin Trough 13.6 15.0-20.0 ug/mL Low 08-23-2019 [facility] (72183) Comment: Result Comment: . Performed By: #### CXTIS ### # [facility] [address] [place] [address] [facility] [address] [place], [place] [id number] #### C/MICAELA #### [address] [place] [address] ts gel on 2019-08-11 3 TS GEL ABO Group: Normal 08-23-2019 [facility] (65233) B Rh, Gel: POS Antibody Screen Gel: NEG Comment: Performed By: #### CXTIS ### # [facility] [address] [place] [address] [facility] [address] [place], [place] [id number] #### C/MICAELA #### [address] [address] [place] [address] op note on Op Note [facility] Normal 08-10 [facility] (16105) [address] [facility] [address] Dept: [phone] Loc: [phone] Operative Report Patient Name: Denys Arriola Date of : 1985 Date of Surgery: 08/23/19 Location: [facility] Preoperative Diagnosis: 1. Osteoarthritis infected hardware Postoperative Diagnosis: Same Procedure: 1. Defatting and inset of the flap 2. Placement of external fixator as per Dr. Davila Surgeon: Jesse Burnham MD 1st Assist: Rick PGY 7 2nd Assist: Jett PGY 2 Implants: None Specimens Removed: None Anesthesia: General Local Anesthesia: None Tourniquet:: None Estimated Blood Loss: 50ml Antibiotics: Scheduled on the floor Vancomycin Indications: Ms. Denys Arriola is a 33 y.o. year-old f emale WHo presents for placemnt of a external vac and second stage defatting. I have discussed with her, preoperatively, the com plications, limitations, expectations, alternatives, and risks of surgical intervention which she has demon strated understanding. She understood the particular risk of defatting and in set of flap left lower external. No guarantees were given or implied. After having all of her questions answered to her satisfaction, Ms. Denys Arriola has provided written informed consent to proceed. Please see previous notes for f ull operative discussion. Procedure: Denys Arriola was identified in the p reoperative waiting area. her operative site was initialed and consent was reviewed. Fin al questions were answered. Ms. Denys Arriola was brought to the operating room and placed in the supine position. All bony prominences were well padded. The aforementioned anesthesia was administered. Antibiotics were confirmed to have been given. The operative extremity was prepped and draped in the usual sterile fashion. A surgical timeout was then performed with the patient's ident ification, the procedure to be performed being reviewed, verification laly t the patient had received preoperative antibi otics if indicated, and verification of the correct surgical side. The patient's ASA was verified by the nurse senior loan processor and the anesthesia staff. Fire risk was assessed. The left lower extremity fla p had an audible Doppler signal at the skin paddle. A [address] [place] around the Doppler signal was made an d the flap was defatted of both deep suprafascial and superficial fat leavi ng 5 mm of subcutaneous fat on the skin portion.Deep to the fat t he wound was copiously irrigated out. The previously placed [place] drain was rem luis m. The Doppler signal remained & the flap was inset with renaldo loos [place]. The flap had good capillary refill. The previously placed cement spacer had co me out on the adjustment of the foot so or thopedics placed another cement spacer this will be dictated separately along with the external fixa tor. The case was then turned over to Dr. Davila for placement cement spacer a s well as the external fixer. His part will be dictated separately After placement of the exter nal fixator the Doppler signal was again checked and it had good Doppler signal. MsFrancine Arriola was awakened from anesthesia h aving tolerated the procedure without apparent complication and was taken to the recovery room in stable condition. On Doppler check in PACU she had subsequently lost the Doppler signal. The flap was then poked with an 18-ga uge Angiocath dark venous blood quickly egressed out of the flap. The renaldo were removed and loose Vicryl sutur es were then placed. After short interval the Doppler signal did recover. A vioptix was placed and initial signal quality was 96 with a reading of 5 4% POST OPERATIVE PLan WILL TREAT FRESH FREE FLAP Q.1 HOUR DOPPLER CHECKS monitor in Intensive Care Unit N.p.o. Alex warmer Elevate leg A.m. labs Flap checks tonight Discussion had with Jesse Burnham 08/23/2019 , 6:22 PM hemogram w/ autodiff on 2019-08-23 Abs Baso Cnt 0.0 0.0-0.2 10*3/uL Normal 08-23-2019 [facility] (74998) Comment: Performed By: #### CXTIS ### # [facility] [address] [place], [place] [facility] [place] #### C/MICAELA #### [address] [address] [place] Abs Neutrophile Cnt 5.4 1.8-7.0 10*3/uL Normal 08-23-2019 [facility] (95732) Comment: Performed By: #### CXTIS ### # [facility] [address] [place] [facility] [place] #### C/MICAELA #### [address] Basophils/100 WBC (Bld) 0.3 0.0-2.0 % Normal 2019 [facility] (38074) Comment: Performed By: #### CXTIS ### # [facility] [address] [place] [facility] [address] [place] #### C/MICAELA #### [facility] [address] [place], [place] Eosinophils (Bld) [#/Vol] 0.3 0.0-0.5 10*3/uL Normal 08-10 [facility] (56303) Comment: Performed By: #### CXTIS ### # [facility] [address] [place] [facility] [address] [place] #### C/MICAELA #### [facility] [address] [place] Eosinophils/100 WBC (Bld) 3.8 1.0-6.0 % Normal 08-10 [facility] (17626) Comment: Performed By: #### CXTIS ### # [facility] [address] [place] [facility] [address] [place] #### C/MICAELA #### [facility] [address] [place] Erythrocyte distribution 13.5 11.5-14.5 % Normal 08-22 [facility] width (RBC) [Ratio] (06717) Comment: Performed By: #### CXTIS ### # [facility] [address] [place] [facility] [address] [place] #### C/MICAELA #### [facility] [address] [place] Granulocytes/100 WBC (Bld) 68.3 40.0-80.0 % Normal [facility] (11393) Comment: Performed By: #### CXTIS ### # [facility] [address] [place] [facility] [address] [place] #### C/MICAELA #### [facility] [address] [place] Hematocrit (Bld) [Volume 27.7 35.0-47.0 % Low 08-22 [facility] fraction] (58130) Comment: Performed By: #### CXTIS ### # [facility] [address] [place] [facility] [address] [place] #### C/MICAELA #### [facility] [address] [place] Hemoglobin (Bld) [Mass/Vol] 9.7 11.7-16.0 g/dL Low [facility] (22928) Comment: Performed By: #### CXTIS ### # [facility] [address] [place] [facility] [address] [place] #### C/MICAELA #### [facility] [address] [place] Lymphocytes (Bld) [#/Vol] 1.6 1.0-4.3 10*3/uL Normal 08-10 [facility] (77075) Comment: Performed By: #### CXTIS ### # [facility] [place] [place] [facility] [address] [place] #### C/MICAELA #### [facility] [address] [place] Lymphocytes/100 WBC (Bld) 19.8 20.0-40.0 % Low 08-10 [facility] (18129) Comment: Performed By: #### CXTIS ### # [facility] [address] [place] [facility] [address] [place] #### C/MICAELA #### [facility] [address] [place] MCH (RBC) [Entitic mass] 30.9 26.0-34.0 pg Normal 08-22 [facility] ([id number]) Comment: Performed By: #### CXTIS ### # [facility] [place] [place] [facility] [place] #### C/MICAELA #### [place] [address] [address] [place], [place] MCHC (RBC) [Mass/Vol] 34.9 32.0-36.0 % Normal 08-23-19 20 [facility] ([id number]) Comment: Performed By: #### CXTIS ### # [place] [address] [address] [place], [place] [facility] [place] #### C/MICAELA #### [place] [address] [address] [place], [place] MCV (RBC) [Entitic vol] 88.7 79.0-98.0 fL Normal 2019 [facility] (51746) Comment: Performed By: #### CXTIS ### # [facility] [place] [facility] [place] #### C/MICAELA #### [place] [address] [address] [place], [place] Monocytes (Bld) [#/Vol] 0.6 0.0-0.8 10*3/uL Normal 2019 [facility] (87376) Comment: Performed By: #### CXTIS ### # [place] [address] [address] [place], [place] [facility] #### C/MICAELA #### [place] [address] [address] [place], [place] Monocytes/100 WBC (Bld) 7.8 2.0-10.0 % Normal 2019 [facility] ([id number]) Comment: Performed By: #### CXTIS ### # [facility] [address] [place] [place] [facility] [address] [place] #### C/MICAELA #### [facility] [address] [place] Platelet mean volume (Bld) 7.2 7.4-10.4 fL Low [facility] [Entitic vol] (33500 ) Comment: Performed By: #### CXTIS ### # [facility] [address] [place], [place] [facility] [address] [place] #### C/MICAELA #### [facility] [address] [place], [place] Platelets (Bld) [#/Vol] 291 140-440 10*3/uL Normal 2019 [facility] (90987) Comment: Performed By: #### CXTIS ### # [facility] [address] [place] [facility] [address] [place] #### C/MICAELA #### [facility] [address] [place], [place] RBC (Bld) [#/Vol] 3.13 3.80-5.20 10*6/uL Low 08-23-2019 [facility] (82042) Comment: Performed By: #### CXTIS ### # [facility] [address] [place] [facility] [address] [place] #### C/MICAELA #### [facility] [address] [place] WBC (Bld) [#/Vol] 7.9 3.6-10.7 10*3/uL Normal 08-23-2019 [facility] ([id number]) Comment: Performed By: #### CXTIS ### # [facility] [facility] [address] [place] [address] [facility] [address] [place], [place] [id number] #### C/MICAELA #### [facility] [address] [place] [address] No panel information on 2019-08-23 Interpretation and review Abnormal 08-10 [place], [place] of laboratory results ([id number]) Vancomycin Tr 13.6 15 - 20 ug/mL Low 08-23-2019 [place] ([address]) Comment: . Test Performed 08-23-[address] [facility] ([address]) System, [place] [address] Absolute Baso # 0.0 0 - 0.2 10*3/uL 08-23-2019 [place], [place] ([address]) Absolute Neut # 5.4 1.8 - 7 10*3/uL 08-23-2019 [place], [place] (45 [address]) Basophils/100 WBC 0.3 0 - 2 % 08-23-2019 [facility] [employer]- (Bld) [place], [place] (45 [address]) Eosinophils (Bld) 0.3 0 - 0.5 10*3/uL 08-23-2019 [facility] [employer]- [#/Vol] [place], [place] (45 [address]) Eosinophils/100 WBC 3.8 1 - 6 % 08-23-2019 [facility]- (Bld) [place], [place] ([address]) Erythrocyte 13.5 11.5 - % 08-23-2019 [facility] distribution width 14.5 [place] ([address]) (RBC) [Ratio] Granulocytes/100 WBC 68.3 40 - 80 % 0 [facility]- (Bld) [place], [place] (45 [address]) Hematocrit (Bld) 27.7 35 - 47 % Low 08-23-2019 [facility]- [Volume fraction] [place] ([address]) Hemoglobin (Bld) 9.7 11.7 - 16 g/dL Low 08-23-2019 [facility] [employer]- [Mass/Vol] [place], [place] (4 6248) Interpretation and Abnormal 08-23-2019 [facility]- review of laboratory [facility] ([id number]) results Lymphocytes (Bld) 1.6 1 - 4.3 10*3/uL 08-23-2019 [facility]- [#/Vol] [place] (45 237) Lymphocytes/100 WBC 19.8 20 - 40 % Low 08-23-2019 [facility]- (Bld) [place] (45 237) MCH (RBC) [Entitic 30.9 26 - 34 pg 08-23-2019 [facility]- mass] [place] (45 237) MCHC (RBC) [Mass/Vol] 34.9 32 - 36 % 08-23-19 20 [facility] [place] (45 237) MCV (RBC) [Entitic 88.7 79 - 98 fL 08-23-2019 [facility]- vol] [place] (45 237) Monocytes (Bld) 0.6 0 - 0.8 10*3/uL 08-23-2019 [facility]- [#/Vol] [place] (45 237) Monocytes/100 WBC 7.8 2 - 10 % 08-23-2019 [facility]- (Bld) [place] (45 237) Platelet mean volume 7.2 7.4 - 10.4 fL Low 08-23-19 20 [facility]- (Bld) [Entitic vol] [place] (46813) Platelets (Bld) 291 140 - 440 10*3/uL 08-23-2019 [facility]- [#/Vol] [place] (45 237) RBC (Bld) [#/Vol] 3.13 3.8 - 5.2 10*6/uL Low 08-23-2019 [facility] [place] (45 237) WBC (Bld) [#/Vol] 7.9 3.6 - 10.7 10*3/uL 08-23-2019 [place], [place] (45 237) Test Performed 08-23-2019 [facility] [employer]- by [facility] [employer] [place] ([id number]) [facility], [address] [place] [id number] vancomycin trough o n 2019-08-22 Vancomycin Trough 13.4 15.0-20.0 ug/mL Low 08-22-2019 [facility] [employer] [facility] (92382) Comment: Result Comment: . Performed By: #### CXTIS ### # [facility] [address] [place] [facility] [address] [place] #### C/MICAELA #### [facility] [address] [place] hemogram w/ autodiff on 2019-08-22 Abs Baso Cnt 0.1 0.0-0.2 10*3/uL Normal 08-22-2019 [facility] ([id number]) Comment: Performed By: #### CXTIS ### # [facility] [place] [facility] [place] #### C/MICAELA #### [facility] Abs Neutrophile Cnt 4.4 1.8-7.0 10*3/uL Normal 08-22-2019 [facility] (41798) Comment: Performed By: #### CXTIS ### # [facility] [facility] [place] #### C/MICAELA #### [facility] [address] [place], [place] Basophils/100 WBC (Bld) 0.8 0.0-2.0 % Normal 2019 [facility] (07477) Comment: Performed By: #### CXTIS ### # [facility] [address] [place] [facility] [address] [place] #### C/MICAELA #### [facility] Eosinophils (Bld) [#/Vol] 0.4 0.0-0.5 10*3/uL Normal 08-10 [facility] (30162) Comment: Performed By: #### CXTIS ### # [facility] [facility] [address] [place] #### C/MICAELA #### [facility] [address] [place] Eosinophils/100 WBC (Bld) 5.3 1.0-6.0 % Normal 08-10 [facility] (82715) Comment: Performed By: #### CXTIS ### # [facility] [address] [place] [facility] [address] [place] #### C/MICAELA #### [facility] Erythrocyte distribution 13.7 11.5-14.5 % Normal 08-21 [facility] width (RBC) [Ratio] (93811) Comment: Performed By: #### CXTIS ### # [facility] [facility] [address] [place] #### C/MICAELA #### [facility] [place] Granulocytes/100 WBC (Bld) 59.9 40.0-80.0 % Normal [facility] (92507) Comment: Performed By: #### CXTIS ### # [facility] [facility] [address] [place] #### C/MICAELA #### [facility] [address] [place], [place] Hematocrit (Bld) [Volume 28.2 35.0-47.0 % Low 08-21 [facility] fraction] ([id number]) Comment: Performed By: #### CXTIS ### # [facility] [address] [place] [facility] [address] [place] #### C/MICAELA #### [facility] [address] [place], [place] Hemoglobin (Bld) [Mass/Vol] 9.7 11.7-16.0 g/dL Low [facility] (02320) Comment: Performed By: #### CXTIS ### # [facility] [address] [place] [facility] [place] #### C/MICAELA #### [facility] [place] Lymphocytes (Bld) [#/Vol] 2.0 1.0-4.3 10*3/uL Normal 08-10 [facility] (29283) Comment: Performed By: #### CXTIS ### # [facility] [facility] [place] #### C/MICAELA #### [facility] [place] Lymphocytes/100 WBC (Bld) 26.8 20.0-40.0 % Normal 08-10 [facility] (15952) Comment: Performed By: #### CXTIS ### # [facility] [facility] [place] #### C/MICAELA #### [facility] [place] MCH (RBC) [Entitic mass] 30.9 26.0-34.0 pg Normal 08-21 [facility] (49738) Comment: Performed By: #### CXTIS ### # [facility] [place] [facility] #### C/MICAELA #### [facility] [place] MCHC (RBC) [Mass/Vol] 34.4 32.0-36.0 % Normal 08-22-19 20 [facility] (15192) Comment: Performed By: #### CXTIS ### # [facility] [place] [facility] [address] [place] #### C/MICAELA #### [facility] [address] [place] MCV (RBC) [Entitic vol] 89.8 79.0-98.0 fL Normal 2019 [facility] (84585) Comment: Performed By: #### CXTIS ### # [facility] [place] [facility] [place] #### C/MICAELA #### [facility] Monocytes (Bld) [#/Vol] 0.5 0.0-0.8 10*3/uL Normal 2019 [facility] (00476) Comment: Performed By: #### CXTIS ### # [facility] [place] [facility] [place] #### C/MICAELA #### [facility] [place] Monocytes/100 WBC (Bld) 7.2 2.0-10.0 % Normal 2019 [facility] (76226) Comment: Performed By: #### CXTIS ### # [facility] [place] [facility] [place] #### C/MICAELA #### [facility] [place] Platelet mean volume (Bld) 8.1 7.4-10.4 fL Normal [facility] [Entitic vol] (36284 ) Comment: Performed By: #### CXTIS ### # [facility] [address] [place] [facility] [address] [place] #### C/MICAELA #### [facility] [address] [place], [place] Platelets (Bld) [#/Vol] 306 140-440 10*3/uL Normal 2019 [facility] (03935) Comment: Performed By: #### CXTIS ### # [facility] [address] [place] [facility] [address] [place] #### C/MICAELA #### [facility] [place] RBC (Bld) [#/Vol] 3.14 3.80-5.20 10*6/uL Low 08-22-2019 [facility] (51466) Comment: Performed By: #### CXTIS ### # [facility] [facility] [place] #### C/MICAELA #### [facility] [place] WBC (Bld) [#/Vol] 7.4 3.6-10.7 10*3/uL Normal 08-22-2019 [facility] (12729) Comment: Performed By: #### CXTIS ### # [facility] [address] [place] [facility] [address] [place] #### C/MICAELA #### [facility] No panel information on 2019-08-22 Sodium [Moles/Vol] NEG mmol/L 08-22-2019 [facility] [place] ([address]) Comment: Test Performed by [facility], [facility] [place], [place] Sodium [Moles/Vol] POS mmol/L 08-22-2019 [place], [place] ([address]) Comment: Test Performed by [facility], [address] [place] [address] Sodium [Moles/Vol] B 08-22-2019 [place], [place] (66 786) Test Performed by 08-22-2019 [facility] ([address]) System, [address] [place] [address] Interpretation and Abnormal 08-22-2019 [facility]- review [place] ([address]) results Vancomycin Tr 13.4 15 - 20 ug/mL Low 08-22-2019 [place], [place] (32 791) Comment: . Test Performed 08-22-[address] [facility] [place] ([address]) System, [address] [place] [address] Absolute Baso # 0.1 0 - 0.2 10*3/uL 08-22-2019 [place], [place] ([address]) Absolute Neut # 4.4 1.8 - 7 10*3/uL 08-22-2019 [place], [place] (30 237) Basophils/100 WBC 0.8 0 - 2 % 08-22-2019 [facility]- (Bld) [place], [place] (86 [address]) Eosinophils (Bld) 0.4 0 - 0.5 10*3/uL 08-22-2019 [facility]- [#/Vol] [place], [place] (77 [address]) Eosinophils/100 WBC 5.3 1 - 6 % 08-22-2019 [facility]- (Bld) [place], [place] (45 [address]) Erythrocyte 13.7 11.5 - % 08-22-2019 [facility] ealth- distribution width 14.5 [place] ([address]) (RBC) [Ratio] Granulocytes/100 WBC 59.9 40 - 80 % 0 [facility]- (Bld) [place], [place] (11 237) Hematocrit (Bld) 28.2 35 - 47 % Low 08-22-2019 [facility]- [Volume fraction] [place] ([address]) Hemoglobin (Bld) 9.7 11.7 - 16 g/dL Low 08-22-2019 [facility]- [Mass/Vol] [place] ([id number] [id number]) Interpretation and Abnormal 08-22-2019 [facility]- review of laboratory [place] ([id number]) results Lymphocytes (Bld) 2.0 1 - 4.3 10*3/uL 08-22-2019 [facility]- [#/Vol] [place] (45 237) Lymphocytes/100 WBC 26.8 20 - 40 % 08-22-2019 [facility]- (Bld) [place] (45 237) MCH (RBC) [Entitic 30.9 26 - 34 pg 08-22-2019 [facility]- mass] [place] (45 237) MCHC (RBC) [Mass/Vol] 34.4 32 - 36 % 08-22-19 20 [facility] [place] (45 237) MCV (RBC) [Entitic 89.8 79 - 98 fL 08-22-2019 [facility]- vol] [place] (45 237) Monocytes (Bld) 0.5 0 - 0.8 10*3/uL 08-22-2019 [facility] [employer]- [#/Vol] [place] (45 237) Monocytes/100 WBC 7.2 2 - 10 % 08-22-2019 [facility]- (Bld) [place] (45 237) Platelet mean volume 8.1 7.4 - 10.4 fL 08-22-19 20 [facility]- (Bld) [Entitic vol] [place] ([id number]) Platelets (Bld) 306 140 - 440 10*3/uL 08-22-2019 [facility]- [#/Vol] [place] (45 237) RBC (Bld) [#/Vol] 3.14 3.8 - 5.2 10*6/uL Low 08-22-2019 [facility] [place] (45 237) WBC (Bld) [#/Vol] 7.4 3.6 - 10.7 10*3/uL 08-22-2019 [facility] [place] (45 237) Test Performed 08-22-2019 [facility] [employer] by [facility] [employer] [place] (06284) System, [facility] [place] [address] hemogram w/ autodiff on 2019-08-21 Abs Baso Cnt 0.1 0.0-0.2 10*3/uL Normal 08-21-2019 [facility] (06388) Comment: Performed By: #### CXTIS ### # [facility] [address] [place] [facility] #### C/MICAELA #### [facility] [address] [place] Abs Neutrophile Cnt 4.0 1.8-7.0 10*3/uL Normal 08-21-2019 [facility] (64542) Comment: Performed By: #### CXTIS ### # [facility] [place] [facility] #### C/MICAELA #### [facility] Basophils/100 WBC (Bld) 0.9 0.0-2.0 % Normal 2019 [facility] (31542) Comment: Performed By: #### CXTIS ### # [facility] [place] [facility] #### C/MICAELA #### [facility] Eosinophils (Bld) [#/Vol] 0.2 0.0-0.5 10*3/uL Normal 08-10 [facility] (02445) Comment: Performed By: #### CXTIS ### # [facility] [address] [place] [facility] [address] [place] #### C/MICAELA #### [facility] [address] [place] Eosinophils/100 WBC (Bld) 3.7 1.0-6.0 % Normal 08-10 [facility] (68588) Comment: Performed By: #### CXTIS ### # [facility] [address] [place] [facility] [address] [place] #### C/MICAELA #### [facility] [address] [place] Erythrocyte distribution 13.7 11.5-14.5 % Normal 08-20 [facility] width (RBC) [Ratio] (89131) Comment: Performed By: #### CXTIS ### # [facility] [address] [place] [facility] [address] [place] #### C/MICAELA #### [facility] [address] [place] Granulocytes/100 WBC (Bld) 60.5 40.0-80.0 % Normal [facility] (00460) Comment: Performed By: #### CXTIS ### # [facility] [address] [place] [facility] [address] [place] #### C/MICAELA #### [facility] [address] [place] Hematocrit (Bld) [Volume 27.0 35.0-47.0 % Low 08-20 [facility] fraction] (41634) Comment: Performed By: #### CXTIS ### # [facility] [address] [place] [facility] [address] [place] #### C/MICAELA #### [facility] [address] [place] Hemoglobin (Bld) [Mass/Vol] 9.2 11.7-16.0 g/dL Low [facility] (52056) Comment: Performed By: #### CXTIS ### # [facility] [address] [place] [facility] [address] [place] #### C/MICAELA #### [facility] [place] Lymphocytes (Bld) [#/Vol] 1.8 1.0-4.3 10*3/uL Normal 08-10 [facility] (74864) Comment: Performed By: #### CXTIS ### # [facility] [place] [facility] [address] [place] #### C/MICAELA #### [facility] Lymphocytes/100 WBC (Bld) 27.2 20.0-40.0 % Normal 08-10 [facility] (32390) Comment: Performed By: #### CXTIS ### # [facility] [place] [place] [facility] [place] #### C/MICAELA #### [facility] [place] MCH (RBC) [Entitic mass] 30.5 26.0-34.0 pg Normal 08-20 [facility] (91705) Comment: Performed By: #### CXTIS ### # [facility] [place] [facility] [address] [place] #### C/MICAELA #### [facility] [place] MCHC (RBC) [Mass/Vol] 34.2 32.0-36.0 % Normal 08-21-19 [facility] (99011) Comment: Performed By: #### CXTIS ### # [facility] [place] [place] [facility] [address] [place] #### C/MICAELA #### [facility] [address] [place], [place] MCV (RBC) [Entitic vol] 89.3 79.0-98.0 fL Normal 2019 [facility] (62707) Comment: Performed By: #### CXTIS ### # [facility] [address] [place] [facility] [address] [place] #### C/MICAELA #### [facility] [place] Monocytes (Bld) [#/Vol] 0.5 0.0-0.8 10*3/uL Normal 2019 [facility] (14862) Comment: Performed By: #### CXTIS ### # [facility] [place] [place] [facility] #### C/MICAELA #### [facility] [place] Monocytes/100 WBC (Bld) 7.7 2.0-10.0 % Normal 2019 [facility] (81994) Comment: Performed By: #### CXTIS ### # [facility] [place] [place] [facility] [place] #### C/MICAELA #### [facility] [place] Platelet mean volume (Bld) 8.2 7.4-10.4 fL Normal [facility] [Entitic vol] (66019 ) Comment: Performed By: #### CXTIS ### # [facility] [place] [place] [facility] [place] #### C/MICAELA #### [facility] [place] Platelets (Bld) [#/Vol] 271 140-440 10*3/uL Normal 2019 [facility] (49730) Comment: Performed By: #### CXTIS ### # [facility] [address] [place] [place] [facility] [address] [place] #### C/MICAELA #### [facility] [address] [place] RBC (Bld) [#/Vol] 3.03 3.80-5.20 10*6/uL Low 08-21-2019 [facility] (24991) Comment: Performed By: #### CXTIS ### # [facility] [address] [place] [facility] [address] [place] #### C/MICAELA #### [facility] [address] [place] WBC (Bld) [#/Vol] 6.6 3.6-10.7 10*3/uL Normal 08-21-2019 [facility] (81278) Comment: Performed By: #### CXTIS ### # [facility] [address] [place] [facility] [address] [place] #### C/MICAELA #### [facility] [address] [place] No panel information on 2019-08-21 Absolute Baso # 0.1 0 - 0.2 10*3/uL 08-21-2019 [place], [place] ([address]) Absolute Neut # 4.0 1.8 - 7 10*3/uL 08-21-2019 [place], [place] (45 [address]) Basophils/100 WBC 0.9 0 - 2 % 08-21-2019 [facility]- (Bld) [place], [place] ([address]) Eosinophils (Bld) 0.2 0 - 0.5 10*3/uL 08-21-2019 [facility] [employer]- [#/Vol] [place], [place] (45 [address]) Eosinophils/100 WBC 3.7 1 - 6 % 08-21-2019 [facility]- (Bld) [place] (45 237) Erythrocyte 13.7 11.5 - % 08-21-2019 [facility]- distribution width 14.5 O [place] (94143) (RBC) [Ratio] Granulocytes/100 WBC 60.5 40 - 80 % 0 [facility]- (Bld) [place] (45 237) Hematocrit (Bld) 27.0 35 - 47 % Low 08-21-2019 [facility] [employer]- [Volume fraction] MARLENY HOBBS ([id number]) Hemoglobin (Bld) 9.2 11.7 - 16 g/dL Low 08-21-2019 [facility] [employer]- [Mass/Vol] MARLENY HOBBS ([id number]) Interpretation and Abnormal 08-21-2019 [facility]- review of laboratory MARLENY HOBBS ([id number]) results Lymphocytes (Bld) 1.8 1 - 4.3 10*3/uL 08-21-2019 [facility] [employer]- [#/Vol] MARLENY HOBBS (45 237) Lymphocytes/100 WBC 27.2 20 - 40 % 08-21-2019 [facility]- (Bld) MARLENY HOBBS (45 237) MCH (RBC) [Entitic 30.5 26 - 34 pg 08-21-2019 [facility] [employer]- mass] MARLENY HOBBS (45 237) MCHC (RBC) [Mass/Vol] 34.2 32 - 36 % 08-21-19 20 [facility] MARLENY HOBBS (45 237) MCV (RBC) [Entitic 89.3 79 - 98 fL 08-21-2019 [facility] [employer]- vol] MARLENY HOBBS (45 237) Monocytes (Bld) 0.5 0 - 0.8 10*3/uL 08-21-2019 [facility] [employer]- [#/Vol] MARLENY HOBBS (45 237) Monocytes/100 WBC 7.7 2 - 10 % 08-21-2019 [facility] [employer]- (Bld) MARLENY HOBBS (45 237) Platelet mean volume 8.2 7.4 - 10.4 fL 08-21-19 20 [facility] [employer] (Bld) [Entitic vol] MARLENY HOBBS ([id number]) Platelets (Bld) 271 140 - 440 10*3/uL 08-21-2019 [facility] [employer]- [#/Vol] [place], [place] (45 237) RBC (Bld) [#/Vol] 3.03 3.8 - 5.2 10*6/uL Low 08-21-2019 [facility] [place], [place] (45 237) WBC (Bld) [#/Vol] 6.6 3.6 - 10.7 10*3/uL 08-21-2019 [facility] [place], [place] (45 237) Test Performed 08-21-[address] [facility] ([address]) System, [address] [place] [address] vancomycin trough o n 2019-08-20 Vancomycin Trough 11.4 15.0-20.0 ug/mL Low 08-20-2019 [facility] (29923) Comment: Result Comment: . Performed By: #### CXTIS ### # [facility] [employer] [place] [address] [place], [place] [facility] [address], [place] #### C/MICAELA #### [facility] [employer] [facility] [address], [place] magnesium on -10 Magnesium [Mass/Vol] 1.9 1.6-2.3 mg/dL Normal 0 [facility] [employer] [facility] (55978) Comment: Performed By: #### CXTIS ### # [facility] [employer] [facility] [address], [place] [facility] System [address], [place] #### C/MICAELA #### [facility] [employer] [facility] [address], [place] hemogram w/ autodiff on 2019-08-20 Abs Baso Cnt 0.0 0.0-0.2 10*3/uL Normal 08-20-2019 [facility] (36529) Comment: Performed By: #### CXTIS ### # [facility] [employer] [facility] [address], [place] [facility] System [address], [place] #### C/MICAELA #### [facility] [employer] [facility] [address], [place] Abs Neutrophile Cnt 4.5 1.8-7.0 10*3/uL Normal 08-20-2019 [facility] (65447) Comment: Performed By: #### CXTIS ### # [facility] [address], [place] [facility] [address], [place] #### C/MICAELA #### [facility] [address], [place] Basophils/100 WBC (Bld) 0.2 0.0-2.0 % Normal 2019 [facility] (43655) Comment: Performed By: #### CXTIS ### # [facility] [address] [place] [facility] [address] [place] #### C/MICAELA #### [facility] [address] [place] Eosinophils (Bld) [#/Vol] 0.2 0.0-0.5 10*3/uL Normal 08-10 [facility] (94333) Comment: Performed By: #### CXTIS ### # [facility] [address] [place] [facility] [address] [place] #### C/MICAELA #### [facility] [address] [place] Eosinophils/100 WBC (Bld) 3.4 1.0-6.0 % Normal 08-10 [facility] (42551) Comment: Performed By: #### CXTIS ### # [facility] [address] [place] [facility] [address] [place] #### C/MICAELA #### [facility] [address] [place] Erythrocyte distribution 13.4 11.5-14.5 % Normal 08-19 [facility] width (RBC) [Ratio] (54424) Comment: Performed By: #### CXTIS ### # [facility] [address] [place], [place] [facility] [address] [place], [place] #### C/MICAELA #### [facility] [address] [place], [place] Granulocytes/100 WBC (Bld) 65.9 40.0-80.0 % Normal [facility] (72836) Comment: Performed By: #### CXTIS ### # [facility] [address] [place] [facility] [address] [place], [place] #### C/MICAELA #### [facility] [address] [place], [place] Hematocrit (Bld) [Volume 25.9 35.0-47.0 % Low 08-19 [facility] System fraction] (19070) Comment: Performed By: #### CXTIS ### # [facility] [address] [place] [facility] [address] [place] #### C/MICAELA #### [facility] [address] [place], [place] Hemoglobin (Bld) [Mass/Vol] 9.0 11.7-16.0 g/dL Low [facility] (93057) Comment: Performed By: #### CXTIS ### # [facility] [address] [place] [facility] [address] [place] #### C/MICAELA #### [facility] [address] [place], [place] Lymphocytes (Bld) [#/Vol] 1.6 1.0-4.3 10*3/uL Normal 08-10 [facility] (25521) Comment: Performed By: #### CXTIS ### # [facility] [address] [place], [place] [facility] [address] [place] #### C/MICAELA #### [facility] [address] [place], [place] Lymphocytes/100 WBC (Bld) 23.1 20.0-40.0 % Normal 08-10 [facility] (83322) Comment: Performed By: #### CXTIS ### # [facility] [address] [place] [facility] [address] [place], [place] #### C/MICAELA #### [facility] [address] [place] MCH (RBC) [Entitic mass] 30.7 26.0-34.0 pg Normal 08-19 [facility] (66134) Comment: Performed By: #### CXTIS ### # [facility] [address] [place] [facility] [address] [place] #### C/MICAELA #### [facility] [address] [place] MCHC (RBC) [Mass/Vol] 34.8 32.0-36.0 % Normal 08-20-19 [facility] (45392) Comment: Performed By: #### CXTIS ### # [facility] [address] [place] [facility] [address] [place] #### C/MICAELA #### [facility] [address] [place] MCV (RBC) [Entitic vol] 88.2 79.0-98.0 fL Normal 2019 [facility] (47865) Comment: Performed By: #### CXTIS ### # [facility] [address] [place] [facility] [address] [place] #### C/MICAELA #### [facility] [address] [place], [place] Monocytes (Bld) [#/Vol] 0.5 0.0-0.8 10*3/uL Normal 2019 [facility] (83102) Comment: Performed By: #### CXTIS ### # [facility] [address] [place] [facility] [address] [place] #### C/MICAELA #### [facility] [address] [place], [place] Monocytes/100 WBC (Bld) 7.4 2.0-10.0 % Normal 2019 [facility] (04188) Comment: Performed By: #### CXTIS ### # [facility] [address] [place] [facility] [address] [place] #### C/MICAELA #### [facility] [address] [place], [place] Platelet mean volume (Bld) 7.6 7.4-10.4 fL Normal [facility] [Entitic vol] (15991 ) Comment: Performed By: #### CXTIS ### # [facility] [address] [place] [facility] [address] [place] #### C/MICAELA #### [facility] [address] [place], [place] Platelets (Bld) [#/Vol] 230 140-440 10*3/uL Normal 2019 [facility] (14278) Comment: Performed By: #### CXTIS ### # [facility] [address] [place] [facility] [address] [place] #### C/MICAELA #### [facility] [address] [place], [place] RBC (Bld) [#/Vol] 2.93 3.80-5.20 10*6/uL Low 08-20-2019 [facility] (56091) Comment: Performed By: #### CXTIS ### # [facility] [address] [place], [place] [facility] [address] [place] #### C/MICAELA #### [facility] [address] [place], [place] WBC (Bld) [#/Vol] 6.8 3.6-10.7 10*3/uL Normal 08-20-2019 [facility] (66696) Comment: Performed By: #### CXTIS ### # [facility] [address] [place], [place] [facility] [address] [place] #### C/MICAELA #### [facility] [address] [place], [place] basic metabolic panel on 2019-08-20 Calcium [Mass/Vol] 9.1 8.4-10.4 mg/dL Normal 08-20-2019 [facility] (18299) Comment: Performed By: #### CXTIS ### # [facility] [address] [place] [facility] [facility] [address] [place], [place] #### C/MICAELA #### [facility] [address] [place], [place] Anion gap [Moles/Vol] 5 Normal 08-20-19 20 [facility] (17796) Comment: Performed By: #### CXTIS ### # [facility] [address] [place] [facility] [address] [place] #### C/MICAELA #### [facility] [address] [place], [place] CO2 [Moles/Vol] 29 22-30 mmol/L Normal 08-20-2019 [facility] (85876) Comment: Performed By: #### CXTIS ### # [facility] [address] [place], [place] [facility] [address] [place], [place] #### C/MICAELA #### [facility] [address] [place], [place] Creatinine [Mass/Vol] 0.56 0.52-1.25 mg/dL Normal 08-20-19 20 [facility] [employer] System (61896) Comment: Performed By: #### CXTIS ### # [facility] [employer] [facility] [address] [place], [place] [facility] [employer] [facility] [address] [place], [place] #### C/MICAELA #### [facility] [employer] System [address] [place], [place] GFR/1.73 sq M > 60.0 >60 mL/min/{1.73_m2} Normal 0 [facility] predicted among Syst em (64572) blacks MDRD (S/P/Bld) [Vol rate/Area] Comment: Performed By: #### CXTIS ### # [facility] [employer] [facility] [address] [place], [place] [facility] [employer] [facility] [address] [place], [place] #### C/MICAELA #### [facility] [employer] [facility] [address] [place], [place] GFR/1.73 sq M > 60.0 >60 mL/min/{1.73_m2} Normal 0 [facility] predicted among Syst em (97046) non-blacks MDRD (S/P/Bld) [Vol rate/Area] Comment: Result Comment: Source- MDRD equation with creatinine calibration to IDMS(NKDEP) eGFR not recommended for nicolas g dose adjustment Performed By: #### CXTIS ### # [facility] [address] [place], [place] [facility] [address] [place], [place] #### C/MICAELA #### [facility] [employer] [facility] [address] [place], [place] Glucose [Mass/Vol] 96 70-100 mg/dL Normal 08-20-2019 [facility] (27515) Comment: Performed By: #### CXTIS ### # [facility] [address] [place] [facility] [address] [place] #### C/MICAELA #### [facility] [address] [place] Urea nitrogen [Mass/Vol] 11 7-20 mg/dL Normal 08-19 [facility] (90282) Comment: Performed By: #### CXTIS ### # [facility] [address] [place] [facility] [address] [place] #### C/MICAELA #### [facility] [address] [place], [place] Chloride [Moles/Vol] 100 98-107 mmol/L Normal 0 [facility] (44292) Comment: Performed By: #### CXTIS ### # [facility] [address] [place] [facility] [address] [place] #### C/MICAELA #### [facility] [address] [place] Potassium [Moles/Vol] 3.9 3.5-5.1 mmol/L Normal 08-20-19 20 [facility] (10152) Comment: Performed By: #### CXTIS ### # [facility] [address] [facility] [place] [facility] [address] [place] #### C/MICAELA #### [facility] [address] [facility] Sodium [Moles/Vol] 135 135-145 mmol/L Normal 08-20-2019 [facility] (53284) Comment: Performed By: #### CXTIS ### # [facility] [address] [place] [address] [facility] [address] [place], [place] [id number] #### C/MICAELA #### [facility] [address] [place] [address] No panel information on 2019-08-20 Interpretation and review Abnormal 08-10 [place], [place] of laboratory results ([address]) Vancomycin Tr 11.4 15 - 20 ug/mL Low 08-20-2019 [place], [place] ([address]) Comment: . Test Performed by 08-20-2019 [place], [place] ([address]) System, [place] [address] Anion gap 5 mmol/L 08-20-2019 [facility] [Moles/Vol] [place] ( [address]) Calcium [Mass/Vol] 9.1 8.4 - 10.4 mg/dL 08-20-2019 [place], [place] (94 895) Chloride 100 98 - 107 mmol/L 08-20-2019 [facility] [Moles/Vol] [place] ( [address]) CO2 [Moles/Vol] 29 22 - 30 mmol/L 08-20-2019 [place], [place] (02 982) Creatinine 0.56 0.52 - 1.25 mg/dL 08-20-2019 [facility] [Mass/Vol] [place], [place] (4 3112) EGFR IF NonAfrican >60.0 >60 mL/min 08-20-2019 [place], [place] (82 209) Comment: Source- MDRD equation with c reatinine calibration to IDMS(NKDEP) eGFR not recommended for nicolas g dose adjustment GFR/1.73 sq M >60.0 >60 mL/min mL/min/{1.73_m2} 08-20-19 [facility] predicted among [facility] [place] MDRD [place] (9016 7) (S/P/Bld) [Vol rate/Area] Glucose [Mass/Vol] 96 70 - 100 mg/dL 08-20-2019 [place] ([address]) Magnesium 1.9 1.6 - 2.3 mg/dL 08-20-2019 [facility] [Mass/Vol] [place] ([address]) Potassium 3.9 3.5 - 5.1 mmol/L 08-20-2019 [facility] [Moles/Vol] [place] ([address]) Sodium [Moles/Vol] 135 135 - 145 mmol/L 08-20-2019 [place] ([address]) Urea nitrogen 11 7 - 20 mg/dL 08-20-2019 [facility] [Mass/Vol] [place] ([address]) Test 08-20-2019 [facility] Performed by [facility] (775 63) [facility], [address] [place] [address] Absolute Baso # 0.0 0 - 0.2 10*3/uL 08-20-2019 [place] ([address]) Absolute Neut # 4.5 1.8 - 7 10*3/uL 08-20-2019 [place] ([address]) Basophils/100 WBC 0.2 0 - 2 % 08-20-2019 [facility] (Bld) [place] ([address]) Eosinophils (Bld) 0.2 0 - 0.5 10*3/uL 08-20-2019 [facility] [#/Vol] [place] ([address]) Eosinophils/100 WBC 3.4 1 - 6 % 08-20-2019 [facility] (Bld) [place] ([address]) Erythrocyte 13.4 11.5 - % 08-20-2019 [facility] distribution [facility].5 [facility], (RBC) [Ratio] MARLENY (45 051) Granulocytes/100 65.9 40 - 80 % 08-20-2019 [facility] WBC (Bld) [place] ([address]) Hematocrit (Bld) 25.9 35 - 47 % Low 08-20-2019 [facility] [Volume fraction] [place] ([address]) Hemoglobin (Bld) 9.0 11.7 - 16 g/dL Low 08-20-2019 [facility] [Mass/Vol] [place] ([address]) Interpretation and Abnormal 08-20-2019 [facility] review of [facility] , laboratory results K Y (96380) Lymphocytes (Bld) 1.6 1 - 4.3 10*3/uL 08-20-2019 [facility] [#/Vol] [place] ([address]) Lymphocytes/100 WBC 23.1 20 - 40 % 08-20-2019 [facility] (Bld) [place] ([address]) MCH (RBC) [Entitic 30.7 26 - 34 pg 08-20-2019 [facility] mass] [place] ([address]) MCHC (RBC) 34.8 32 - 36 % 08-20-2019 [facility] [Mass/Vol] [facility] [place] ([address]) MCV (RBC) [Entitic 88.2 79 - 98 fL 08-20-2019 [facility] vol] [place] ([address]) Monocytes (Bld) 0.5 0 - 0.8 10*3/uL 08-20-2019 [facility] cy [#/Vol] [place] ([address]) Monocytes/100 WBC 7.4 2 - 10 % 08-20-2019 [facility] (Bld) [place] ([address]) Platelet mean 7.6 7.4 - 10.4 fL 08-20-2019 [facility] volume (Bld) [facility], [Entitic vol] [place] (45 237) Platelets (Bld) 230 140 - 440 10*3/uL 08-20-2019 [facility] cy [#/Vol] [place] ([address]) RBC (Bld) [#/Vol] 2.93 3.8 - 5.2 10*6/uL Low 08-20-2019 [place] ([address]) WBC (Bld) [#/Vol] 6.8 3.6 - 10.7 10*3/uL 08-20-2019 [place] ([address]) Test 08-20-2019 [facility] Performed by [facility] [employer] [place] (952 37) System, [address] [place] [address] ts gel on 9 TS GEL ABO Group: Normal 08-19-2019 [facility] ([address]) B Rh, Gel: POS Antibody Screen Gel: NEG Comment: Performed By: #### CXTIS ### # [facility] [employer] [facility] [place] [facility] [address], [place] #### C/MICAELA #### [facility] [address] [place], [place] magnesium on 08-18 Magnesium [Mass/Vol] 1.9 1.6-2.3 mg/dL Normal 0 [facility] (20607) Comment: Performed By: #### CXTIS ### # [facility] [address] [place] [facility] [address] [place], [place] #### C/MICAELA #### [facility] [address] [place] hemogram w/ autodiff on 2019-08-19 Abs Baso Cnt 0.0 0.0-0.2 10*3/uL Normal 08-19-2019 [facility] (97954) Comment: Performed By: #### CXTIS ### # [facility] [address] [place] [facility] [address] [place] #### C/MICAELA #### [facility] [address] [place] Abs Neutrophile Cnt 3.4 1.8-7.0 10*3/uL Normal 08-19-2019 [facility] (10759) Comment: Performed By: #### CXTIS ### # [facility] [address] [place] [facility] [address] [place], [place] #### C/MICAELA #### [facility] [address] [place] Basophils/100 WBC (Bld) 0.4 0.0-2.0 % Normal 2019 [facility] (82400) Comment: Performed By: #### CXTIS ### # [facility] [address] [place] [facility] [address] [place] #### C/MICAELA #### [facility] [address] [place] Eosinophils (Bld) [#/Vol] 0.2 0.0-0.5 10*3/uL Normal [facility] (90549) Comment: Performed By: #### CXTIS ### # [facility] [address] [place] [facility] [address] [place] #### C/MICAELA #### [facility] [place] [place] Eosinophils/100 WBC (Bld) 2.8 1.0-6.0 % Normal [facility] (65555) Comment: Performed By: #### CXTIS ### # [facility] [address] [place] [facility] [address] [place] #### C/MICAELA #### [facility] [place] [place] Erythrocyte distribution 13.6 11.5-14.5 % Normal 08-18 [facility] System width (RBC) [Ratio] (32465) Comment: Performed By: #### CXTIS ### # [facility] [place] [place] [facility] [place] [place] #### C/MICAELA #### [facility] [address] [place] Granulocytes/100 WBC (Bld) 57.3 40.0-80.0 % Normal [facility] (09690) Comment: Performed By: #### CXTIS ### # [facility] [address] [place] [facility] [address] [place] #### C/MICAELA #### [facility] [address] [place] Hematocrit (Bld) [Volume 24.3 35.0-47.0 % Low 08-18 [facility] fraction] (85444) Comment: Performed By: #### CXTIS ### # [facility] [address] [place] [facility] [address] [place] #### C/MICAELA #### [facility] [address] [place] Hemoglobin (Bld) [Mass/Vol] 8.4 11.7-16.0 g/dL Low [facility] (08786) Comment: Performed By: #### CXTIS ### # [facility] [place] [place] [facility] [place] #### C/MICAELA #### [facility] [place] [place] Lymphocytes (Bld) [#/Vol] 1.9 1.0-4.3 10*3/uL Normal [facility] (99979) Comment: Performed By: #### CXTIS ### # [facility] [place] [place] [facility] [place] #### C/MICAELA #### [facility] [place] Lymphocytes/100 WBC (Bld) 31.4 20.0-40.0 % Normal [facility] (62495) Comment: Performed By: #### CXTIS ### # [facility] [place] [facility] [address] [place] #### C/MICAELA #### [facility] [place] [place] MCH (RBC) [Entitic mass] 30.8 26.0-34.0 pg Normal 08-18 [facility] (02860) Comment: Performed By: #### CXTIS ### # [facility] [address] [place] [facility] [address] [place] #### C/MICAELA #### [facility] [address] [place] MCHC (RBC) [Mass/Vol] 34.6 32.0-36.0 % Normal 08-19-19 20 [facility] (03573) Comment: Performed By: #### CXTIS ### # [facility] [place] [facility] [place] #### C/MICAELA #### [facility] [place] [place] MCV (RBC) [Entitic vol] 89.2 79.0-98.0 fL Normal 2019 [facility] (35620) Comment: Performed By: #### CXTIS ### # [facility] [place] [facility] [place] #### C/MICAELA #### [facility] [place] Monocytes (Bld) [#/Vol] 0.5 0.0-0.8 10*3/uL Normal 2019 [facility] (62750) Comment: Performed By: #### CXTIS ### # [facility] [address] [place] [facility] [address] [place] #### C/MICAELA #### [facility] [address] [place] Monocytes/100 WBC (Bld) 8.1 2.0-10.0 % Normal 2019 [facility] (66198) Comment: Performed By: #### CXTIS ### # [facility] [address] [facility] [place] [facility] [address] [place] #### C/MICAELA #### [facility] [address] [facility] [place] Platelet mean volume (Bld) 7.9 7.4-10.4 fL Normal [facility] [Entitic vol] (78133 ) Comment: Performed By: #### CXTIS ### # [facility] [address] [facility] [place] [facility] [address] [place] #### C/MICAELA #### [facility] [address] [place] Platelets (Bld) [#/Vol] 207 140-440 10*3/uL Normal 2019 [facility] (08015) Comment: Performed By: #### CXTIS ### # [facility] [address] [facility] [place] [facility] [address] [place] #### C/MICAELA #### [facility] [address] [place] RBC (Bld) [#/Vol] 2.72 3.80-5.20 10*6/uL Low 08-19-2019 S [facility] ([id number]) Comment: Performed By: #### CXTIS ### # [facility] [address] [facility] [place] [facility] [address] [place], [place] #### C/MICAELA #### [facility] [address] [facility], [place] WBC (Bld) [#/Vol] 5.9 3.6-10.7 10*3/uL Normal 08-19-2019 [facility] (48765) Comment: Performed By: #### CXTIS ### # [facility] [address] [facility] [place] [facility] [address] [place], [place] #### C/MICAELA #### [facility] System [address] [place], [place] culture anaerobe on 2019-08-19 CULTURE ANAEROBE CULTURE ANAEROBE --> Status: F No [facility] 08-19-2019 [facility] No growth of anaerobes at 5 days. ([id number]) Comment: Order Comment: Specimen cat ected in O.R. Performed By: #### REINIER, C/ MICAELA #### [facility] [address] [place], [place] CULTURE ANAEROBE CULTURE ANAEROBE --> Status: F No [facility] 08-19-2019 [facility] No growth of anaerobes at 5 days. ([id number]) Comment: Order Comment: Specimen cat ected in O.R. Performed By: #### CXTIS ### # [facility] [address] [place], [place] [facility] [address] [place], [place] #### C/MICAELA #### [facility] [address] [place], [place] CULTURE ANAEROBE CULTURE ANAEROBE --> Status: F No [facility] 08-19-2019 [facility] No growth of anaerobes at 5 days. (30140) Comment: Order Comment: Specimen cat ected in O.R. Performed By: #### CXIVIS, C/ MICAELA #### [facility] [employer] System [address] [place], [place] basic metabolic panel on 2019-08-19 Anion gap [Moles/Vol] 4 Normal 08-19-19 20 [facility] (14246) Comment: Performed By: #### CXTIS ### # [facility] [employer] System [address] [place], [place] [facility] ealt System [address] [place], [place] #### C/MICAELA #### [facility] [address] [place], [place] Chloride [Moles/Vol] 100 98-107 mmol/L Normal 08-18- 0 [facility] (29002) Comment: Performed By: #### CXTIS ### # [facility] [address] [facility] [place] [facility] [address] [facility] [place], [place] #### C/MICAELA #### [facility] [address] [facility] [place] Potassium [Moles/Vol] 3.5 3.5-5.1 mmol/L Normal 08-19-19 [facility] (22764) Comment: Performed By: #### CXTIS ### # [facility] [address] [facility] [place] [facility] [address] [facility] [place] #### C/MICAELA #### [facility] [address] [facility] [place] Sodium [Moles/Vol] 134 135-145 mmol/L Low 08-19-2019 [facility] (90859) Comment: Performed By: #### CXTIS ### # [facility] [address] [facility] [place] [facility] [address] [facility] [place] #### C/MICAELA #### [facility] [address] [facility] [place] Calcium [Mass/Vol] 8.4 8.4-10.4 mg/dL Normal 08-19-2019 [facility] (45012) Comment: Performed By: #### CXTIS ### # [facility] [address] [facility] [place] [facility] [address] [facility] [place] #### C/MICAELA #### [facility] [address] [facility] [place] CO2 [Moles/Vol] 31 22-30 mmol/L High 08-19-2019 [facility] (76422) Comment: Performed By: #### CXTIS ### # [facility] [address] [facility] [place] [facility] [address] [facility] [place] #### C/MICAELA #### [facility] [address] [place], [place] Glucose [Mass/Vol] 104 70-100 mg/dL High 08-19-2019 [facility] (45135) Comment: Performed By: #### EDERTIS ### # [facility] [address] [place], [place] [facility] [address] [place], [place] #### C/MICAELA #### [facility] [address] [place], [place] Urea nitrogen [Mass/Vol] 11 7-20 mg/dL Normal 08-18 [facility] (86659) Comment: Performed By: #### EDERTIS ### # [facility] [address] [place], [place] [facility] [address] [place], [place] #### C/MICAELA #### [facility] [employer] [facility] [address] [place], [place] Creatinine [Mass/Vol] 0.64 0.52-1.25 mg/dL Normal 08-19-19 20 [facility] (65717) Comment: Performed By: #### EDERTIS ### # [facility] [address] [place], [place] [facility] [address] [place], [place] #### C/MICAELA #### [facility] [address] [place], [place] GFR/1.73 sq M > 60.0 >60 mL/min/{1.73_m2} Normal 0 [facility] [employer] predicted among Syst em (98668) blacks MDRD (S/P/Bld) [Vol rate/Area] Comment: Performed By: #### CXTIS ### # [facility] [address] [place], [place] [facility] [address] [place], [place] #### C/MICAELA #### [facility] [address] [place], [place] GFR/1.73 sq M > 60.0 >60 mL/min/{1.73_m2} Normal 0 [facility] predicted among Syst em (04417) non-blacks MDRD (S/P/Bld) [Vol rate/Area] Comment: Result Comment: Source- MDRD equation with creatinine calibration to IDMS(NKDEP) eGFR not recommended for nicolas g dose adjustment Performed By: #### CXTIS ### # [facility] [address] [place], [place] [facility] [address] [place], [place] #### C/MICAELA #### [facility] [address] [place], [place] No panel information on 2019-08-19 Anaerobic Culture No growth of anaerobes 08-19-2019 [place], [place] at 5 days. (25372) Test Performed by [facility] 2019 [facility], [facility] [address] ([address]559) [place] [address] Specimen collected in O.R. Anaerobic Culture No growth of anaerobes 08-19-2019 [place], [place] at 5 days. (56459) Test Performed by [facility] 2019 [facility], [address] ([address]83) [place] [address] Specimen collected in O.R. Anaerobic Culture No growth of anaerobes 08-19-2019 [place] at 5 days. (89581) Test Performed by [facility] 2019 [facility], [address] ([address]) [place] [address] Specimen collected in O.R. Sodium [Moles/Vol] NEG mmol/L 08-19-2019 [place] ([address]) Comment: Test Performed by [facility], [address] [place] [address] Sodium [Moles/Vol] B 08-19-2019 [place] ([address]) Sodium [Moles/Vol] POS mmol/L 08-19-2019 [place] ([address]) Comment: Test Performed by [facility], [address] [place] [address] Test Performed by 08-19-2019 [place] ([address]) System, [place] [address] Anion gap 4 mmol/L 08-19-2019 [facility] [Moles/Vol] [place] ( [address]) Calcium [Mass/Vol] 8.4 8.4 - 10.4 mg/dL 08-19-2019 [place] (11 484) Chloride 100 98 - 107 mmol/L 08-19-2019 [facility] [Moles/Vol] [place] ( [address]) CO2 [Moles/Vol] 31 22 - 30 mmol/L High 08-19-2019 [place], [place] (16 309) Creatinine 0.64 0.52 - 1.25 mg/dL 08-19-2019 [facility] [Mass/Vol] [place], [place] (4 5533) EGFR IF NonAfrican >60.0 >60 mL/min 08-19-2019 [place], [place] (76 250) Comment: Source- MDRD equation with c reatinine calibration to IDMS(NKDEP) eGFR not recommended for nicolas g dose adjustment GFR/1.73 sq M >60.0 >60 mL/min mL/min/{1.73_m2} 08-19-19 20 [facility] predicted among [facility] [place] MDRD [place] (0074 7) (S/P/Bld) [Vol rate/Area] Glucose [Mass/Vol] 104 70 - 100 mg/dL High 08-19-2019 [place] ([address]) Interpretation and Abnormal 08-19-2019 [facility] review of [facility] , laboratory results K Y (79431) Potassium 3.5 3.5 - 5.1 mmol/L 08-19-2019 [facility] [Moles/Vol] [place] ([address]) Sodium [Moles/Vol] 134 135 - 145 mmol/L Low 08-19-2019 [place] ([address]) Urea nitrogen 11 7 - 20 mg/dL 08-19-2019 [facility] [Mass/Vol] [place] ([address]) Test 08-19-2019 [facility] Performed by [facility] (452 37) System, [place] [address] Magnesium 1.9 1.6 - 2.3 mg/dL 08-19-2019 [facility] [Mass/Vol] [place] ([address]) Test 08-19-2019 [facility] Performed by [facility] (452 37) System, [place] [address] Absolute Baso # 0.0 0 - 0.2 10*3/uL 08-19-2019 [place] ([address]) Absolute Neut # 3.4 1.8 - 7 10*3/uL 08-19-2019 [place] ([address]) Basophils/100 WBC 0.4 0 - 2 % 08-19-2019 [facility] (Bld) [place] ([address]) Eosinophils (Bld) 0.2 0 - 0.5 10*3/uL 08-19-2019 M ercy [#/Vol] [place] ([address]) Eosinophils/100 2.8 1 - 6 % 08-19-2019 [facility] WBC (Bld) [place] ([address]) Erythrocyte 13.6 11.5 - % 08-19-2019 [facility] distribution width 14.5 [facility], (RBC) [Ratio] [place] (45 237) Granulocytes/100 57.3 40 - 80 % 08-19-2019 Me [facility]cy WBC (Bld) [place] ([address]) Hematocrit (Bld) 24.3 35 - 47 % Low 08-19-2019 Me [facility] [Volume fraction] [place] ([address]) Hemoglobin (Bld) 8.4 11.7 - 16 g/dL Low 08-19-2019 Me [facility]cy [Mass/Vol] [place] ([address]) Interpretation and Abnormal 08-19-2019 [facility] review of [facility] , laboratory results K Y (28228) Lymphocytes (Bld) 1.9 1 - 4.3 10*3/uL 08-19-2019 M ercy [#/Vol] [place] ([address]) Lymphocytes/100 31.4 20 - 40 % 08-19-2019 [facility] WBC (Bld) [place] ([address]) MCH (RBC) [Entitic 30.8 26 - 34 pg 08-19-2019 [facility] mass] [place] ([address]) MCHC (RBC) 34.6 32 - 36 % 08-19-2019 [facility] [Mass/Vol] [place] ([address]) MCV (RBC) [Entitic 89.2 79 - 98 fL 08-19-2019 [facility] vol] [place] ([address]) Monocytes (Bld) 0.5 0 - 0.8 10*3/uL 08-19-2019 Dora [facility] [#/Vol] [place] ([address]) Monocytes/100 WBC 8.1 2 - 10 % 08-19-2019 M er[facility] (Bld) [place] ([address]) Platelet mean 7.9 7.4 - 10.4 fL 08-19-2019 [facility] y volume (Bld) [facility], [Entitic vol] [place] (45 237) Platelets (Bld) 207 140 - 440 10*3/uL 08-19-2019 Dora cy [#/Vol] [place] ([address]) RBC (Bld) [#/Vol] 2.72 3.8 - 5.2 10*6/uL Low 08-19-2019 [place] ([address]) WBC (Bld) [#/Vol] 5.9 3.6 - 10.7 10*3/uL 08-19-2019 [place] ([address]) Test 08-19-2019 [facility] Performed by [facility] (452 37) System, [address] [place] [address] single donor plasma (cp2d) on 2019-08-18 Single Donor Thawed Plasma - 5 Day: Normal [facility] Plasma (CP2D) [id number] transfused 08/18/19 03:26 [facility] System (82261) Unit Blood Type: B Unit Blood Rh: NEG Blood Product Code: 0T5 Unit Number: [id number] Unit Status: transfused Barcoded Unit Number: =[id number] Barcoded Product Code: = Barcoded ABO/Rh: =%1700 Unit Expiration: Unit Volume Transfused: 310 Unit Transfusion Start Date/Time: Thawed Plasma - 5 Day: [id number] transfused 08/18/19 01:10 [facility] Unit Blood Type: B Unit Blood Rh: POS Blood Product Code: 0T5 Unit Number: [id number] Unit Status: transfused Barcoded Unit Number: =[id number] Barcoded Product Code: = Barcoded ABO/Rh: =%7300 Unit Expiration: Unit Volume Transfused: 242 Unit Transfusion Start Date/Time: Comment: Performed By: #### TROPN ### # [facility] [employer] [place] [address] [address] [place], [place] pheresis leuko reduced on 2019-08-18 Pheresis Leuko PATHOGEN REDUCED LR PPHR: Normal 08-18-2019 [facility] Reduced [id number] transfused 08/18/19 04:32 [facility] System () Unit Blood Type: AB Unit Blood Rh: NEG Blood Product Code: PR2 Unit Number: [id number] Unit Status: transfused Barcoded Unit Number: =[id number] Barcoded Product Code: = Barcoded ABO/Rh: =%2800 Unit Expiration: Unit Volume Transfused: 300 Unit Transfusion Start Date/Time: Comment: Performed By: #### TROPN ### # [place] [address] [address] [place], [place] magnesium on 08 Magnesium [Mass/Vol] 2.0 1.6-2.3 mg/dL Normal 0 [facility] (01293) Comment: Performed By: #### CXTIS ### # [place] [address] [address] [place], [place] [facility] [place] #### C/MICAELA #### [place] [address] [address] [place], [place] leukodepleted red cells on 2019-08-18 Leukodepleted Red Leukodepleted Red Cells: Normal 08-18-2019 [facility] Cells [id number] transfused 08/18/19 00:43 [facility] System (96028) Unit Blood Type: B Unit Blood Rh: POS Blood Product Code: AS1 Unit Number: [id number] Unit Status: transfused Barcoded Unit Number: =[id number] Barcoded Product Code: = Barcoded ABO/Rh: =%7300 Unit Expiration: Unit Volume Transfused: 300 Unit Transfusion Start Date/Time: Leukodepleted Red Cells: [id number] transfused 08/17/19 23:15 [facility] Unit Blood Type: B Unit Blood Rh: POS Blood Product Code: AS1 Unit Number: [id number] Unit Status: transfused Barcoded Unit Number: =[id number] Barcoded Product Code: = Barcoded ABO/Rh: =%7300 Unit Expiration: Unit Volume Transfused: 300 Unit Transfusion Start Date/Time: Comment: Performed By: #### TROPN ### # [facility] [employer] [facility] [address] [place], [place] hemogram w/ autodiff on 2019-08-18 Abs Baso Cnt 0.0 0.0-0.2 10*3/uL Normal 08-18-2019 [facility] (73200) Comment: Performed By: #### HEMDF, BM P3, MG3 ####[facility] [address] [place], [place] Abs Neutrophile Cnt 5.8 1.8-7.0 10*3/uL Normal 08-18-2019 [facility] (30116) Comment: Performed By: #### HEMDF, BM P3, MG3 ####[facility] [address] [place], [place] Basophils/100 WBC (Bld) 0.2 0.0-2.0 % Normal 2019 [facility] (18881) Comment: Performed By: #### HEMDF, BM P3, MG3 ####[facility] [employer] [address] [place], [place] Eosinophils (Bld) [#/Vol] 0.0 0.0-0.5 10*3/uL Normal 03-0 [facility] (93754) Comment: Performed By: #### HEMDF, BM P3, MG3 ####[address] Eosinophils/100 WBC (Bld) 0.1 1.0-6.0 % Low 03-0 [facility] (25037) Comment: Performed By: #### HEMDF, BM P3, MG3 ####[address] Erythrocyte distribution 13.4 11.5-14.5 % Normal 08-17 [facility] width (RBC) [Ratio] (53821) Comment: Performed By: #### HEMDF, BM P3, MG3 ####[address] Granulocytes/100 WBC (Bld) 79.7 40.0-80.0 % Normal [facility] (69088) Comment: Performed By: #### HEMDF, BM P3, MG3 ####[address] Hematocrit (Bld) [Volume 22.9 35.0-47.0 % Low 08-17 [facility] System fraction] (57060) Comment: Performed By: #### HEMDF, BM P3, MG3 ####[address] Hemoglobin (Bld) [Mass/Vol] 7.9 11.7-16.0 g/dL Low [facility] (93165) Comment: Performed By: #### HEMDF, BM P3, MG3 ####[address] Lymphocytes (Bld) [#/Vol] 0.7 1.0-4.3 10*3/uL Low 03-0 [facility] (08472) Comment: Performed By: #### HEMDF, BM P3, MG3 ####[address] [place] Lymphocytes/100 WBC (Bld) 10.0 20.0-40.0 % Low 03-0 [facility] (83761) Comment: Performed By: #### HEMDF, BM P3, MG3 ####[address] MCH (RBC) [Entitic mass] 30.6 26.0-34.0 pg Normal 08-17 [facility] (08363) Comment: Performed By: #### HEMDF, BM P3, MG3 ####[address] MCHC (RBC) [Mass/Vol] 34.5 32.0-36.0 % Normal 08-18-19 [facility] (47234) Comment: Performed By: #### HEMDF, BM P3, MG3 ####[address] MCV (RBC) [Entitic vol] 88.6 79.0-98.0 fL Normal 2019 [facility] (24385) Comment: Performed By: #### HEMDF, BM P3, MG3 ####[address] Monocytes (Bld) [#/Vol] 0.7 0.0-0.8 10*3/uL Normal 2019 [facility] (59460) Comment: Performed By: #### HEMDF, BM P3, MG3 ####[address] Monocytes/100 WBC (Bld) 10.0 2.0-10.0 % Normal 2019 [facility] (11630) Comment: Performed By: #### HEMDF, BM P3, MG3 ####[address] Platelet mean volume (Bld) 7.8 7.4-10.4 fL Normal [facility] [Entitic vol] (84119 ) Comment: Performed By: #### HEMDF, BM P3, MG3 ####[facility] [address] [place], [place] Platelets (Bld) [#/Vol] 188 140-440 10*3/uL Normal 2019 [facility] (19231) Comment: Performed By: #### HEMDF, BM P3, MG3 ####[facility] [address] [place], [place] RBC (Bld) [#/Vol] 2.59 3.80-5.20 10*6/uL Low 08-18-2019 [facility] (96341) Comment: Performed By: #### HEMDF, BM P3, MG3 ####[facility] [address] [place], [place] WBC (Bld) [#/Vol] 7.3 3.6-10.7 10*3/uL Normal 08-18-2019 [facility] (03070) Comment: Performed By: #### HEMDF, BM P3, MG3 ####[facility] [employer] [address] [place], [place] hemoglobin and hematocrit on 2019-08-18 Hematocrit (Bld) [Volume 26.7 % Low 08-17 [place] ([address]) fraction] Comment: Performed By: #### CXTIS ### # [facility] [address] [place] [facility] [address] [place], [place] #### C/MICAELA #### [facility] [address] [place], [place] Hemoglobin (Bld) [Mass/Vol] 9.4 g/[place] ([address]) Comment: Performed By: #### CXTIS ### # [facility] [address] [place], [place] [facility] [address] [place], [place] #### C/MICAELA #### [facility] [address] [place], [place] Hematocrit (Bld) [Volume 17.6 35.0-47.0 % Low 08-17 [facility] fraction] (73577) Comment: Performed By: #### HGHCT ### #[facility] [place], [place] Hemoglobin (Bld) 6.1 11.7-16.0 g/dL Critically low 08-18-19 [facility] [Mass/Vol] System (0 0000) Comment: Performed By: #### HGHCT ### #[facility] [place], [place] basic metabolic panel on 2019-08-18 Anion gap [Moles/Vol] 7 Normal 08-18-19 [facility] (58912) Comment: Performed By: #### CXTIS ### # [facility] System [address] [place], [place] [facility] [address] [place], [place] #### C/MICAELA #### [facility] System [facility] [address] [place] Calcium [Mass/Vol] 8.4 8.4-10.4 mg/dL Normal 08-18-2019 [facility] (15337) Comment: Performed By: #### CXTIS ### # [facility] System [address] [place], [place] [facility] [address] [place], [place] #### C/MICAELA #### [facility] System [address] [place], [place] CO2 [Moles/Vol] 27 22-30 mmol/L Normal 08-18-2019 [facility] (45734) Comment: Performed By: #### CXTIS ### # [facility] [address] [place], [place] [facility] [address] [place], [place] #### C/MICAELA #### [facility] System [address] [place], [place] Creatinine [Mass/Vol] 0.52 0.52-1.25 mg/dL Normal 08-18-19 20 [employer] [facility] (38606) Comment: Performed By: #### CXTIS ### # [facility] [address] [place], [place] [facility] [address] [place], [place] #### C/MICAELA #### [facility] System [address] [place], [place] GFR/1.73 sq M > 60.0 >60 mL/min/{1.73_m2} Normal 0 [facility] predicted among Syst em (82446) blacks MDRD (S/P/Bld) [Vol rate/Area] Comment: Performed By: #### CXTIS ### # [facility] [address] [place], [place] [facility] [address] [place], [place] #### C/MICAELA #### [employer] System [address] [place], [place] GFR/1.73 sq M > 60.0 >60 mL/min/{1.73_m2} Normal 0 [facility] predicted among Syst em (77907) non-blacks MDRD (S/P/Bld) [Vol rate/Area] Comment: Result Comment: Source- MDRD equation with creatinine calibration to IDMS(NKDEP) eGFR not recommended for nicolas g dose adjustment Performed By: #### CXTIS ### # [facility] [address] [place], [place] [facility] [address] [place], [place] #### C/MICAELA #### [facility] System [address] [place], [place] Glucose [Mass/Vol] 95 70-100 mg/dL Normal 08-18-2019 [facility] [employer] [facility] (86424) Comment: Performed By: #### CXTIS ### # [facility] [address] [place], [place] [facility] [address] [place], [place] #### C/MICAELA #### [facility] [address] [place], [place] Urea nitrogen [Mass/Vol] 13 7-20 mg/dL Normal 08-17 [facility] (12477) Comment: Performed By: #### CXTIS ### # [facility] [address] [place] [facility] [address] [place], [place] #### C/MICAELA #### [facility] [address] [place], [place] Chloride [Moles/Vol] 100 98-107 mmol/L Normal 0 [facility] (62955) Comment: Performed By: #### EDERTIS ### # [facility] [address] [place] [facility] [address] [place], [place] #### C/MCIAELA #### [facility] [address] [place], [place] Potassium [Moles/Vol] 3.9 3.5-5.1 mmol/L Normal 08-18-19 [facility] (61834) Comment: Performed By: #### EDERTIS ### # [facility] [address] [place] [facility] [address] [place] #### C/MICAELA #### [facility] [address] [place], [place] Sodium [Moles/Vol] 134 135-145 mmol/L Low 08-18-2019 [facility] (01411) Comment: Performed By: #### CXTIS ### # [facility] [address] [place] [facility] [address] [place], [place] #### C/MICAELA #### [facility] [address] [place], [place] No panel information on 2019-08-18 Interpretation and Abnormal 08-18-2019 [facility]- review [place] ([address]) results Test Performed by 08-18-2019 [place] ([address]) [facility], [address] [place] [address] Anion gap [Moles/Vol] 7 mmol/L 08-18-19 20 [place] (17 606) Calcium [Mass/Vol] 8.4 8.4 - 10.4 mg/dL 08-18-2019 [place] (47 780) Chloride [Moles/Vol] 100 98 - 107 mmol/L 0 [place] (38 867) CO2 [Moles/Vol] 27 22 - 30 mmol/L 08-18-2019 [place] (67 [address]) Creatinine [Mass/Vol] 0.52 0.52 - 1.25 mg/dL 2019 [place], [place] (16 828) EGFR IF NonAfrican >60.0 >60 mL/min 08-18-2019 [place], [place] (07 509) Comment: Source- MDRD equation with c reatinine calibration to IDMS(NKDEP) eGFR not recommended for nicolas g dose adjustment GFR/1.73 sq M >60.0 >60 mL/min/{1.73_m2} 0 [facility] predicted among mL/min [facility] [place] (S/P/Bld) [Vol (7023 7) rate/Area] Glucose [Mass/Vol] 95 70 - 100 mg/dL 08-18-2019 [place] ([address]) Interpretation and Abnormal 08-18-2019 [facility] review of [facility]- laboratory results [place] ([address]) Magnesium 2.0 1.6 - 2.3 mg/dL 08-18-2019 [facility] [Mass/Vol] [place] ([address]) Potassium 3.9 3.5 - 5.1 mmol/L 08-18-2019 [facility] [Moles/Vol] [place] ([address]) Sodium [Moles/Vol] 134 135 - 145 mmol/L Low 08-18-2019 [place] ([address]) Urea nitrogen 13 7 - 20 mg/dL 08-18-2019 [facility] [Mass/Vol] [place] ([address]) Test Performed 08-18-[address] [facility], [address] [place] [facility], ([id number]) ANJEL Byrne [address] Absolute Baso # 0.0 0 - 0.2 10*3/uL 08-18-2019 [place] ([address]) Absolute Neut # 5.8 1.8 - 7 10*3/uL 08-18-2019 [place] ([address]) Basophils/100 WBC 0.2 0 - 2 % 08-18-2019 M ercy (Bld) [place] ([address]) Eosinophils (Bld) 0.0 0 - 0.5 10*3/uL 08-18-2019 M ercy [#/Vol] [place] ([address]) Eosinophils/100 0.1 1 - 6 % Low 08-18-2019 D[facility] WBC (Bld) [place] ([address]) Erythrocyte 13.4 11.5 - % 08-18-2019 [facility] distribution width 14.5 H ealth- (RBC) [Ratio] [place] ([address]) Granulocytes/100 79.7 40 - 80 % 08-18-2019 Me [facility]cy WBC (Bld) [place] ([address]) Hematocrit (Bld) 22.9 35 - 47 % Low 08-18-2019 Me [facility]cy [Volume fraction] [place] ([address]) Hemoglobin (Bld) 7.9 11.7 - 16 g/dL Low 08-18-2019 Me rcy [Mass/Vol] [place] ([address]) Interpretation and Abnormal 08-18-2019 [facility] review of [facility]- laboratory [place] ([address]) Lymphocytes (Bld) 0.7 1 - 4.3 10*3/uL Low 08-18-2019 M ercy [#/Vol] [place] ([address]) Lymphocytes/100 10.0 20 - 40 % Low 08-18-2019 D[facility] WBC (Bld) [place] ([address]) MCH (RBC) [Entitic 30.6 26 - 34 pg 08-18-2019 [facility] mass] [place] ([address]) MCHC (RBC) 34.5 32 - 36 % 08-18-2019 [facility] [Mass/Vol] [place] ([address]) MCV (RBC) [Entitic 88.6 79 - 98 fL 08-18-2019 [facility] vol] [place] ([address]) Monocytes (Bld) 0.7 0 - 0.8 10*3/uL 08-18-2019 Dora cy [#/Vol] [place] ([address]) Monocytes/100 WBC 10.0 2 - 10 % 08-18-2019 M ercy (Bld) [place] ([address]) Platelet mean 7.8 7.4 - fL 08-18-2019 [facility] volume (Bld) 10.4 [facility] [Entitic vol] [place] ([address]) Platelets (Bld) 188 140 - 440 10*3/uL 08-18-2019 Dora cy [#/Vol] [place] ([address]) RBC (Bld) [#/Vol] 2.59 3.8 - 5.2 10*6/uL Low 08-18-2019 [place] ([address]) WBC (Bld) [#/Vol] 7.3 3.6 - 10*3/uL 08-18-2019 M ercy 10.7 [place] ([address]) Test Performed 08-18-2019 [facility] by [facility], [address] [place] [address], ([address]) [place] [address] ABO and Rh group 2800 08-18-2019 Ut [facility] Nom (Bld) [place] ([address]) Blood product unit [id number] 020 [facility] ID (Dose) [#] [place] ([address]) Sodium [Moles/Vol] transfused 08-18-2019 [place] ([address]) Sodium [Moles/Vol] [id number] 08-18-2019 [place] ([address]) Sodium [Moles/Vol] [id number] mmol/L 08-18-19 20 [place] ([address]) 08-18-2019 [place] ([address]) ABO and Rh group 7300 08-18-2019 Ut rcy Nom (Bld) [place] ([address]) ABO and Rh group 1700 08-18-2019 Ut [facility] Nom (Bld) [place] ([address]) Blood product unit [id number] [facility] ID (Dose) [#] [place] ([address]) Blood product unit [id number] [facility] ID (Dose) [#] [place] ([address]) Sodium [Moles/Vol] [id number] mmol/L 08-18-19 [place] ([address]) Sodium [Moles/Vol] transfused 08-18-2019 [place] ([address]) Sodium [Moles/Vol] [id number] 08-18-2019 [place] ([address]) 08-18-2019 [place] ([address]) vancomycin trough o n 2019-08-17 Vancomycin Trough 11.7 15.0-20.0 ug/mL Low 08-17-2019 [facility] (11640) Comment: Result Comment: . Performed By: #### VANCT ### #[facility] [address] [place], [place] renal function on Calcium [Mass/Vol] 8.8 8.4-10.4 mg/dL Normal 08-17-2019 [facility] (98950) Comment: Performed By: #### HEMDF, RE NL3, MG3 ####[employer] [place], [place] Glucose [Mass/Vol] 127 70-100 mg/dL High 08-17-2019 [facility] (33398) Comment: Performed By: #### HEMDF, RE NL3, MG3 ####[employer] [place], [place] Phosphate [Mass/Vol] 3.8 2.5-4.5 mg/dL Normal 0 [facility] (21251) Comment: Performed By: #### HEMDF, RE NL3, MG3 ####[employer] [address] [place], [place] Anion gap [Moles/Vol] 10 Normal 08-17-19 [facility] (15602) Comment: Performed By: #### HEMDF, RE NL3, MG3 ####[facility] [employer] [address] [place], [place] CO2 [Moles/Vol] 25 22-30 mmol/L Normal 08-17-2019 [facility] (92527) Comment: Performed By: #### HEMDF, RE NL3, MG3 ####[facility] [employer] [address] [place], [place] Creatinine [Mass/Vol] 0.58 0.52-1.25 mg/dL Normal 08-17-19 [facility] (04268) Comment: Performed By: #### HEMDF, RE NL3, MG3 ####[facility] [address] [place], [place] GFR/1.73 sq M > 60.0 >60 mL/min/{1.73_m2} Normal 0 [facility] predicted among Syst em ([address]) blacks MDRD (S/P/Bld) [Vol rate/Area] Comment: Performed By: #### HEMDF, RE NL3, MG3 ####[facility] [employer] [address] [place], [place] GFR/1.73 sq M > 60.0 >60 mL/min/{1.73_m2} Normal 0 [facility] predicted among Syst em (11162) non-blacks MDRD (S/P/Bld) [Vol rate/Area] Comment: Result Comment: Source- MDRD equation with creatinine calibration to IDMS(NKDEP) eGFR not recommended for nicolas g dose adjustment Performed By: #### HEMDF, RE NL3, MG3 ####[employer] [address] [place], [place] Urea nitrogen [Mass/Vol] 15 7-20 mg/dL Normal 08-16 [facility] (80122) Comment: Performed By: #### HEMDF, RE NL3, MG3 ####[facility] Health [address] [place] [address] Albumin [Mass/Vol] 3.5 3.5-5.0 g/dL Normal 08-17-2019 [facility] (55418) Comment: Performed By: #### HEMDF, RE NL3, MG3 ####[facility] [address] [place], [place] Chloride [Moles/Vol] 98 98-107 mmol/L Normal 0 [facility] (34185) Comment: Performed By: #### HEMDF, RE NL3, MG3 ####[facility] [address] [place], [place] Potassium [Moles/Vol] 4.3 3.5-5.1 mmol/L Normal 08-17-19 20 [facility] (99165) Comment: Performed By: #### HEMDF, RE NL3, MG3 ####[facility] [address] [place], [place] Sodium [Moles/Vol] 133 135-145 mmol/L Low 08-17-2019 [facility] (94294) Comment: Performed By: #### HEMDF, RE NL3, MG3 ####[facility] [address] [place], [place] op note on Op Note [facility] Normal 03-0 [facility] ([address]37) [address] [place] [address] Dept: [phone] Loc: [phone] Operative Report Patient Name: Denys Arriola Date of : 1985 Date of Surgery: 08/17/19 Location: [facility] Preoperative Diagnosis: 1. 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 ALT free flap from Right thigh to LLE 2. placement of bone cement Surgeon: Jesse Burnham MD 1st Assist: Mehreen PGY 8 2nd Assist: Wild PGY 6 Implants: 2mm & 2.5 mm supervisor display fabrication, Pallikos bone cement with 3 G Vancomycin & 3.6 grams Tobramycin Specimens Removed: None Anesthesia: General Local Anesthesia: 1% lidocaine with epinephrine (1:100,000) 10 cc infiltrated in the the incision in the LLE Fluid: 2600 mL crystalloid, 200 g albumin Tourniquet:: None Estimated Blood Loss: 800 cc Antibiotics: Scheduled on the floor Indications: Ms. Denys Arriola is a 33 y.o. year -old female who had sustained an open medial malleolus wound with fracture and . I have discussed with her, preoperatively, the complica tions, limitations, expectations, alternatives, and risks of surgical intervention which she has demonstra armando understanding. She understood the particular risk of free flap surgery specific ally ALT, I discussed donor site morbidity as well as risk for fla p failure and possible need for secondary surgery. No guarantees were g iven or implied. After having all of her questions answered to her satisfaction, Ms. Denys Arriola has provided written informed consent to proceed. Procedure: Denys Arriola was identified in the p reoperative waiting area. her operative site was initialed and consent was reviewed. Fin al questions were answered. She is marked in the supine position after mapping out her perforators on her right thigh. Ms. Daniel Arriola was brought to the operating room and placed in the supine position. All bony prominences were well padded. The aforementioned anesthesia was administered. Antibiotics were confirmed to have been given. The operative extremity was prepped a nd draped in the usual sterile fashion. A surgical timeout was then performed with the patient's identification, the procedur e to be performed being reviewed, verification that the patient had received pre operative antibiotics if indicated, and verification of the correct surgical side. The patient's ASA was verified by the nurse senior loan processor and the anesthesia staff. Fire risk was assessed. The anterior incision was made over the rectus femoris. This incison was carried to the fascia level and the subfascial place was the n entered and elevated laterally exposing both the distal fat stripe mar elmira the interval between the Vastus Lateralis and the Rectus Femoris. A charge machine operator was identified along the axis corresponding to the preoperatively marked si gnal. This was circumferentially dissected. The entirety of the medial inci petrona was then completed and the subfascial dissection was continued. At th is point the lateral incision was made and the flap was isolated on its p erforator. 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 The isolated charge machine operator was very small and there was a large amount of subcutaneous fat. On initial dissection the pr eviously placed cement spacer completely fell out of the bone. I discussed this with the aviation technician orth opedic surgeon and as per our discussion I placed an antibiotic cement spacer in the bony defect. Used Palacos bone cement with 3 g of vancomycin and 3.6 g of tobr amycin. Dissection on left lower extremity began at the level of the injury and moving proximally, in the superfici al tissues greater saphenous vein was found however was completely clotted off, attempt to identify flow were unsuccessful even after a Blu with a 3 Serbian and 2 Serbian Fog arty were passed, the greater saphenous was not suitable for a recipient vein. The incision was thencarried proximally 2 cm medial to th e midline of the tibia. Incision was carried to the skin and subcutaneous tissue to the level of the fascia crur is. Fascia was identified and divided distally to proximally. The plane b etween the flexor digitorum longus and the roberto eus was entered the posterior tibial artery and its vena comitans were identified. There wer e dissected out proximally to ensure I was clear of the zone of injury. The ves sels were isolated and all perforating branches were clipped. 2 Acland clamps were placed distal to where I was planning to make my arteriotomy. I then isolated a Doppler signal both of the dorsalis pedis and distally at the medial malleolus ensuring that there would be continue flow to the foot. At this point 5000 units of Heparin were administered and 3 minutes were allowed to pass. The vascular pedicle was doubly clipped b oth on the artery first and then the venae comitantes. and the vascular pedicl e was divided. The flap was brought down an d loosely sutured into place and the microscope was brought in for anastomosis. The popliteal artery and i ts corresponding venae comitantes were clipped distally doubly and brought into the field for anastomosis. Flap vein was dissected circumferentially of ad ventitia and dilated up to approximately 2 mm, I used the corresponding vena comitans which was also cleaned circumferentially of adventitia, dilated, and flushed with heparin saline. Then using a 2 mm supervisor display fabrication these were anast omosed. Attention was then turned to the artery which was dissected free on both the donor and recipient of adventitia previously placed proximal Acland cl amp ensure no pulsatile flow and then the double Acland clamp was used to approximate the 2 arteries utilizing 9.0 sutures and end and end a nastomosis was performed, the Acland clamp was released and good flow distally anast omosis was identified. The initial vein anastomosis did not shelby w dilation proximal to the anastomosis however when the Doppler was utilized the audible Doppler si gnal was not reassuring & the corresponding flaps anup a comitans was dilated so the decision was made to anastomosis second vein. This anastomosis did campbell ve an audible Doppler signal distal to the anastomosis and the vena comitans were not dilated on the flap side. An audible Doppler signal was identified on the skin paddle and both proximal and distal dermal level incisions were mad e which showed bright red bleeding. The fla p itself had good cap refill did not appear to have venous congestion. At this point it had been vanessa roximately one hour since the initial heparin dose so I redosed with 2500 unit s of heparin. I had initially planned to de-fat the flap f or contour and skin to skin closure, the due to the single charge machine operator I do not feel comfortable doing that at this operation and will plan second stage contouring operation after I feel the vascular anastomosis are stable. The flap was loosely ins et with a combination of skin renaldo and Prolene sutures, the fascia was used to cover the bony defect, the exposed fat was covered with a Xeroform gauze. Web roll was applied, the previously made splint was then placed i n a Kerlix was used to hold in place a bulky Disla dressing was then placed and a super Kya on top. A window was cut for evaluation of the skin f lap and the marked Doppler signal and a VIoptix skin monitor was placed with initial readings ~46%. The thigh donor site was ramiro sed in 3 layers utilizing the fascia deep dermal and skin Vicryls were used deep and a Prolene was placed superfi cially a James-Ly drain was applied in the deep laye r and a Provena wound VAC was placed over the incision. During count there was some confusion regarding how many clips were applied and the clip houses so an x-ray was taken of both the left lower extremity and the right thigh which did not reveal anything untoward on the x- ray. The patient was then extubated and taken to PACU. Ms. Denys Arriola was awakened from anesthesia h aving tolerated the procedure without apparent complication and was taken to the recovery room in stable condition. POST OPERATIVE PLAN Monitor Vioptic call if below prescribed threshold Hourly flap checks admit to Intensive Care Unit consult to SICU Follow fluid status and urine output keep Sampson in place Hold deep vein thrombosis prophylaxis today start tomorrow Antiplatelet therapy to begin today Nonweightbearing left lower extremity until further no henry secondary to both flap and tibia fracture Alex warmer to left lower leg Wound VAC to donor site N.p.o. for 24 hours Postoperative labs Jesse R Boris 08/17/2019 , 3:14 PM magnesium on 08-16 Magnesium [Mass/Vol] 1.4 1.6-2.3 mg/dL Low 0 [facility] (53771) Comment: Performed By: #### HEMDF, RE NL3, MG3 ####[facility] [employer] [address] [place], [place] hemogram on 2019-08 Erythrocyte distribution 13.8 11.5-14.5 % Normal 08-16 [facility] width (RBC) [Ratio] (74277) Comment: Performed By: #### TROPN ### # [facility] [address] [place], [place] Hematocrit (Bld) [Volume 32.2 35.0-47.0 % Low 08-16 [facility] System fraction] ([address]) Comment: Performed By: #### TROPN ### # [facility] [employer] [facility] [address] [place] [address] Hemoglobin (Bld) [Mass/Vol] 10.9 11.7-16.0 g/dL Low [facility] (58716) Comment: Performed By: #### TROPN ### # [facility] [employer] [facility] [address] [place], [place] MCH (RBC) [Entitic mass] 30.0 26.0-34.0 pg Normal 08-16 [facility] (45093) Comment: Performed By: #### TROPN ### # [facility] [address] [place], [place] MCHC (RBC) [Mass/Vol] 33.8 32.0-36.0 % Normal 08-17-19 20 [facility] (36343) Comment: Performed By: #### TROPN ### # [place] [address] [place], [place] MCV (RBC) [Entitic vol] 88.6 79.0-98.0 fL Normal 2019 [facility] (31238) Comment: Performed By: #### TROPN ### # [place] [address] [address] [place], [place] Platelet mean volume (Bld) 8.0 7.4-10.4 fL Normal [facility] [Entitic vol] (80474 ) Comment: Performed By: #### TROPN ### # [place] [address] [address] [place], [place] Platelets (Bld) [#/Vol] 282 140-440 10*3/uL Normal 2019 [facility] (62686) Comment: Performed By: #### TROPN ### # [place] [address] [address] [place], [place] RBC (Bld) [#/Vol] 3.63 3.80-5.20 10*6/uL Low 08-17-2019 [facility] (98496) Comment: Performed By: #### TROPN ### # [place] [address] [address] [place], [place] WBC (Bld) [#/Vol] 8.5 3.6-10.7 10*3/uL Normal 08-17-2019 [facility] (81153) Comment: Performed By: #### TROPN ### # [place] [address] [address] [place], [place] hemogram w/ autodiff on 2019-08-17 Abs Baso Cnt 0.0 0.0-0.2 10*3/uL Normal 08-17-2019 [facility] (82934) Comment: Performed By: #### HEMDF, RE NL3, MG3 ####[facility] [address] [place], [place] Abs Neutrophile Cnt 15.4 1.8-7.0 10*3/uL High 08-17-2019 [facility] (23794) Comment: Performed By: #### HEMDF RE NL3, MG3 ####[facility] [address] [place], [place] Basophils/100 WBC (Bld) 0.1 0.0-2.0 % Normal 2019 [facility] (25559) Comment: Performed By: #### HEMDF RE NL3, MG3 ####[place] [id number] . [place], [place] Eosinophils (Bld) [#/Vol] 0.0 0.0-0.5 10*3/uL Normal [facility] (74381) Comment: Performed By: #### HEMOLAYINKA RE NL3, MG3 ####[facility] [address] [place], [place] Eosinophils/100 WBC (Bld) 0.0 1.0-6.0 % Low [facility] (91821) Comment: Performed By: #### HEMOLAYINKA RE NL3, MG3 ####[address] [place], [place] Erythrocyte distribution 13.2 11.5-14.5 % Normal 08-16 [facility] width (RBC) [Ratio] (64376) Comment: Performed By: #### HEMDF, RE NL3, MG3 ####[facility] [address] . [place], [place] Granulocytes/100 WBC (Bld) 92.7 40.0-80.0 % High [facility] (47631) Comment: Performed By: #### HEMDF, RE NL3, MG3 ####[facility] [address] . [place], [place] Hematocrit (Bld) [Volume 22.4 35.0-47.0 % Low 08-16 [facility] fraction] (43734) Comment: Performed By: #### HEMOLAYINKA RE NL3, MG3 ####[address] Hemoglobin (Bld) [Mass/Vol] 7.5 11.7-16.0 g/dL Low [facility] (44960) Comment: Performed By: #### HEMOLAYINKA RE NL3, MG3 ####[address] Lymphocytes (Bld) [#/Vol] 0.6 1.0-4.3 10*3/uL Low [facility] (57549) Comment: Performed By: #### HEMOLAYINKA RE NL3, MG3 ####[address] Lymphocytes/100 WBC (Bld) 3.7 20.0-40.0 % Low 0 [facility] (29175) Comment: Performed By: #### HEMOLAYINKA RE NL3, MG3 ####[address] MCH (RBC) [Entitic mass] 29.5 26.0-34.0 pg Normal 08-16 [facility] (26904) Comment: Performed By: #### HEMOLAYINKA RE NL3, MG3 ####[address] MCHC (RBC) [Mass/Vol] 33.8 32.0-36.0 % Normal 08-17-19 [facility] (73417) Comment: Performed By: #### HEMDF RE NL3, MG3 ####[address] MCV (RBC) [Entitic vol] 87.4 79.0-98.0 fL Normal 2019 [facility] (42603) Comment: Performed By: #### HEMDF RE NL3, MG3 ####[facility] [address] [place], [place] Monocytes (Bld) [#/Vol] 0.6 0.0-0.8 10*3/uL Normal 2019 [facility] (63249) Comment: Performed By: #### HEMDF, RE NL3, MG3 ####[facility] [address] [place], [place] Monocytes/100 WBC (Bld) 3.5 2.0-10.0 % Normal 2019 [facility] (72418) Comment: Performed By: #### HEMDF, RE NL3, MG3 ####[facility] [address] [place], [place] Platelet mean volume (Bld) 7.7 7.4-10.4 fL Normal [facility] [Entitic vol] (54549 ) Comment: Performed By: #### HEMDF, RE NL3, MG3 ####[facility] [address] [place], [place] Platelets (Bld) [#/Vol] 265 140-440 10*3/uL Normal 2019 [facility] (44652) Comment: Performed By: #### HEMDF, RE NL3, MG3 ####[facility] [employer] [address] [place], [place] RBC (Bld) [#/Vol] 2.56 3.80-5.20 10*6/uL Low 08-17-2019 [facility] (11843) Comment: Performed By: #### HEMDF, RE NL3, MG3 ####[facility] [address] [facility], [place] WBC (Bld) [#/Vol] 16.6 3.6-10.7 10*3/uL High 08-17-2019 [facility] (50091) Comment: Performed By: #### HEMDF, RE NL3, MG3 ####[facility] [address] [place], [place] culture and stain - tissue on 2019-08-17 CULTURE AND STAIN STAIN GRAM --> Status: F Normal [facility]17-2019 [facility] - TISSUE Few polymorphonuclear cells/lpf. System (13558) No organisms seen. No organisms seen. 1 Organism Corynebacterium striatum Few Possible identification For identification and/or sensitivity, refer to culture collected on: 08/14/2019 at 08:15 ([id number]). Comment: Order Comment: Specimen cat ected in O.R. Performed By: #### Alla HILLS/ MICAELA #### [facility] [address] [place] [address] CULTURE AND STAIN STAIN GRAM --> Status: F Normal 08-17-2019 [facility] - TISSUE Few polymorphonuclear cells/lpf. System (39321) No organisms seen. No organisms seen. 1 Organism Corynebacterium striatum Rare Possible identification For identification and/or sensitivity, refer to culture collected on: 08/14/2019 at 08:15 ([id number]). Comment: Order Comment: Specimen cat ected in O.R. Performed By: #### Alla HILLS/ MICAELA #### [facility] [address] [place] [address] CULTURE STAIN GRAM --> Status: F Normal 08-16 [facility] AND Few polymorphonuclear cells/lpf. Health STAIN - No organisms seen. S ystem TISSUE No organisms seen. ( 75860) 1 Organism Corynebacterium striatum Few Possible identification 1 Organism Antibiotic Result Intrp Ceftriaxone(BP) > 32 R Penicillin(BP) > 32 R Vancomycin(BP) = 0.50 S Comment: Order Comment: Specimen cat ected in O.R. Performed By: #### CXTIS ### # [facility] System [address] [place] [address] [facility] [address] [place], [place] [id number] #### C/MICAELA #### [facility] System [address] [place] [address] cr tibia/fibula 2 views bilateral on 2019-08-17 CR Tibia/Fibula 2 Patient Name: DENYS ARRIOLA mal 08-17-2019 [facility] Views Bilateral System ([id number]) Diagnostic Radiology Exam Date/Time 08/17/2019 14:30:00 EST Exam CR Tibia/Fibula 2 Views Bilateral Ordering Physician MD BURNHAM DYLAN R Accession Number [id number] CPT4 Codes 09553 () Reason For Exam incorrect count in surgery Report Left tibia and fibula CLINICAL INDICATION: Incorrect intraoperative content. Candy ng plastic clip quintana. Single view was obtained and an approximately a lateral proj ection. Metallic wire is noted with the electrode. Multiple surgical clips and skin clips are noted and there is also radiopaque catheter i s draining visible in the field. There is distortion of the distal tibi a consistent with fracture. There also appears to be overlying sponge. No definite foreign body is identified that would appear to be a plastic clamp. Report Dictated on Final Dictated: 08/17/2019 5:05 pm Dictating Physician: MD KEE DIANE Signed Date and Time: 08/17/2019 5:06 pm Signed by: MD KEE DIANE Transcribed Date and Time: 08/17/2019 5:05 cr femur 1 view right on 2019-08-17 CR Femur 1 View Patient Name: DENYS ARRIOLA l 08-17-2019 [facility] System Right ([id number] ) Diagnostic Radiology Exam Date/Time 08/17/2019 14:30:00 EST Exam CR Femur 1 View Right n Ordering Physician MD BURNHAM DYLAN R Accession Number [id number] CPT4 Codes 55307 () Reason For Exam incorrect count in surgery Report Right femur CLINICAL INDICATION: Incorrect intraoperative films. Missing a plastic clip quintana. AP view was obtained. Metallic density renaldo and surgical clips are noted and there is radiopaque tubing superimposed on the fem ur. Background density from probably a thermal pad is also noted . No foreign body is identified which has the appearance of a deven stic clip. Report Dictated on Final Dictated: 08/17/2019 5:03 pm Dictating Physician: MD KEE DIANE Signed Date and Time: 08/17/2019 5:04 pm Signed by: MD KEE DIANE Transcribed Date and Time: 08/17/2019 5:03 cr ankle 3+ views left on 2019-08-17 CR Ankle 3+ Views Patient Name: DENYS ARRIOLA 08-17-2019 [facility] Left ([id number] ) Diagnostic Radiology Exam Date/Time 08/17/2019 18:42:14 EST Exam CR Ankle 3+ Views Left Ordering Physician STEVEN KNUTSON Accession Number [id number] CPT4 Codes 32651 () Reason For Exam post op ankle fx Report HISTORY: Status post postop after ankle fracture repair Three plain film views of the left ankle were obtained. Comparisons available: None FINDINGS: Casting material overlies the lower leg through the foot. Th ere is redemonstration of a comminuted fracture of the distal tibia and distal fibula. From the limited view, there does appears to be near anatomic alignment. There is either graft or cement material in the distal tibia. The ankle joint appears to be in normal articu lation. The bony mineralization is diffusely decreased. Numerous surgical clips are identified. Report Dictated on Final Dictated: 08/17/2019 6:58 pm Dictating Physician: MD MCKEON TOM A Signed Date and Time: 08/17/2019 7:00 pm Signed by: MD MCKEON TOM A Transcribed Date and Time: 08/17/2019 6:58 basic metabolic panel on 2019-08-17 Anion gap [Moles/Vol] 6 Normal 08-17-19 [facility] (81727) Comment: Performed By: #### TROPN ### # [facility] [address] [place] [address] Calcium [Mass/Vol] 8.7 8.4-10.4 mg/dL Normal 08-17-2019 [facility] (36021) Comment: Performed By: #### TROPN ### # [facility] [address] [place] [address] CO2 [Moles/Vol] 26 22-30 mmol/L Normal 08-17-2019 [facility] (78467) Comment: Performed By: #### TROPN ### # [facility] [address] [place] [address] Glucose [Mass/Vol] 97 70-100 mg/dL Normal 08-17-2019 [facility] (89372) Comment: Performed By: #### TROPN ### # [facility] [address] [place] [address] Urea nitrogen [Mass/Vol] 26 7-20 mg/dL High 08-16 [facility] (99788) Comment: Performed By: #### TROPN ### # [facility] [address] [place] [address] Creatinine [Mass/Vol] 0.63 0.52-1.25 mg/dL Normal 08-17-19 20 [facility] (31144) Comment: Performed By: #### TROPN ### # [facility] [address] [place] [address] GFR/1.73 sq M > 60.0 >60 mL/min/{1.73_m2} Normal 0 [facility] [employer] predicted among Syst em (91480) blacks MDRD (S/P/Bld) [Vol rate/Area] Comment: Performed By: #### TROPN ### # [facility] [address] [place] [address] GFR/1.73 sq M > 60.0 >60 mL/min/{1.73_m2} Normal 0 [facility] among Syst [facility] ([address]) non-blacks MDRD (S/P/Bld) [Vol rate/Area] Comment: Result Comment: Source- MDRD equation with creatinine calibration to IDMS(NKDEP) eGFR not recommended for nicolas g dose adjustment Performed By: #### TROPN ### # [facility] [address] [place] [address] Chloride [Moles/Vol] 104 98-107 mmol/L Normal 0 [facility] (75743) Comment: Performed By: #### TROPN ### # [facility] [address] [place], [place] Potassium [Moles/Vol] 4.3 3.5-5.1 mmol/L Normal 08-17-19 20 [facility] [employer] [facility] (66743) Comment: Performed By: #### TROPN ### # [facility] [address] [place], [place] Sodium [Moles/Vol] 136 135-145 mmol/L Normal 08-17-2019 [facility] [employer] [facility] (52237) Comment: Performed By: #### TROPN ### # [facility] [address] [place], [place] No panel information on 2019-08-17 ABO and Rh group 7300 08-17-2019 [facility] Nom (Bld) [place] ([address]) Blood product unit [id number] 020 [facility] ID (Dose) [#] [place] ([address]) Blood product unit [id number] 020 [facility] ID (Dose) [#] [place] ([address]) Sodium [Moles/Vol] [id number] mmol/ 08-17-19 20 [place] ([address]) Sodium [Moles/Vol] transfused 08-17-2019 [place] ([address]) Sodium [Moles/Vol] [id number] 08-17-2019 [place] ([address]) Sodium [Moles/Vol] [id number] mmol/ 03-07-20 20 [place] ([address]) 08-17-2019 [place] ([address]) Hematocrit (Bld) 17.6 35 - 47 % Low 08-17-2019 [place] [Volume fraction] [place] ([address]) Hemoglobin (Bld) 6.1 11.7 - g/dL Critically low 08-17-19 20 [facility] [Mass/Vol] 16 [place] ([address]) Interpretation and Abnormal 08-17-2019 [facility] review of [facility] , laboratory results K [place] ([address]) Test Performed by 08-17-2019 [facility] System, [address]) [place] [address] Albumin [Mass/Vol] 3.5 3.5 - 5 g/dL 08-17-2019 [place] ([address]) Anion gap 10 mmol/ 08-17-2019 [facility] [Moles/Vol] [place] ([address]) Calcium [Mass/Vol] 8.8 8.4 - mg/dL 08-17-2019 [facility] 10.4 [place] ([address]) Chloride 98 98 - 107 mmol/ 08-17-2019 [facility] [Moles/Vol] [place] ([address]) CO2 [Moles/Vol] 25 22 - 30 mmol/ 08-17-2019 [place] ([address]) Creatinine 0.58 0.52 - mg/dL 08-17-2019 [facility] [Mass/Vol] 1.25 [place] ([address]) EGFR IF NonAfrican >60.0 >60 08-17-2019 [facility] Camb[place] mL/[place] ([address]) Comment: Source- MDRD equation with c reatinine calibration to IDMS(NKDEP) eGFR not recommended for nicolas g dose adjustment GFR/1.73 sq M >60.0 >60 mL/min/{1.73_m2} 0 [facility] predicted among mL/min Heal th- blacks MDRD [place] (S/P/Bld) [Vol (4523 7) rate/Area] Glucose 127 70 - mg/dL High 08-17-2019 [facility] [Mass/Vol] 100 [place] ([address]) Interpretation Abnormal 08-17-2019 [facility] and review of Health - laboratory [place] results ([address]) Magnesium 1.4 1.6 - mg/dL Low 08-17-2019 [facility] [Mass/Vol] 2.3 [place] ([address]) Phosphate 3.8 2.5 - mg/dL 08-17-2019 [facility] [Mass/Vol] 4.5 [place] ([address]) Potassium 4.3 3.5 - mmol/L 08-17-2019 [facility] [Moles/Vol] 5.1 [place] ([address]) Sodium 133 135 - mmol/L Low 08-17-2019 [facility] [Moles/Vol] 145 [place] ([address]) Urea nitrogen 15 7 - 20 mg/dL 08-17-2019 [facility] [Mass/Vol] [place] ([address]) Test Performed by 08-17-[address] [facility] [place], [place] [facility], ( [address]) [place] [address] [facility] Incoming Radiology [facility] - [facility] 7:02 PM EST 08-17-2019 [place], [place] Patient Name: DENYS ARRIOLA ([id number]) ---Diagnostic Radiology--- Exam Date/Time 08/17/2019 18:42:14 EST Exam CR Ankle 3+ Views Left Ordering Physician STEVEN KNUTSON Accession Number [id number] CPT4 Codes 40061 () Reason For Exam post op ankle fx Report HISTORY: Status post postop after ankle fracture repair Three plain film views of the left ankle were obtained. Comparisons available: None FINDINGS: Casting material overlies the lower leg through the foot. Th ere is redemonstration of a comminuted fracture of the distal tibia and distal fibula. From the limited view, there does appears to be near anatomic alignment. There is either graft or cement material in the distal tibia. The ankle joint appears to be in normal articu lation. The bony mineralization is diffusely decreased. Numerous surgical clips are identified. Report Dictated on --- Final --- Dictated: 08/17/2019 6:58 pm Dictating Physician: MD MCKEON TOM A Signed Date and Time: 08/17/2019 7:00 pm Signed by: MD MCKEON TOM A Transcribed Date and Time: 08/17/2019 6:58 Patient Name: 08-17-2019 DENYS Sargent - [place]BS ( [id number]) ---Diagnostic Radiology--- Exam Date/Time 08/17/2019 18:42:14 EST Exam CR Ankle 3+ Views Left Ordering Physician STEVEN KNUTSON Accession Number [id number] CPT4 Codes 68236 () Reason For Exam post op ankle fx Report HISTORY: Status post postop after ankle fracture repair Three plain film views of the left ankle were obtained. Comparisons available: None FINDINGS: Casting material overlies the lower leg through the foot. There is redemonstration of a comminuted fracture of the distal tibia and distal fibula. From the limited view, there does appears to be near anatomic alignment. There is either graft or cement material in the distal tibia. The ankle joint appears to be in normal articulation. The bony mineralization is diffusely decreased. Numerous surgical clips are identified. Report Dictated on --- Final --- Dictated: 08/17/2019 6:58 pm Dictating Physician: MD MCKEON TOM A Signed Date and Time: 08/17/2019 7:00 pm Signed by: MD MCKEON TOM A Transcribed Date and Time: 08/17/2019 6:58 Absolute Baso # 0.0 0 - 0.2 10*3/uL 08-17-2019 [place] ([address]) Absolute Neut # 15.4 1.8 - 7 10*3/uL High 08-17-2019 [place] ([address]) Basophils/100 0.1 0 - 2 % 08-17-2019 [facility] WBC (Bld) [place] ([address]) Eosinophils 0.0 0 - 0.5 10*3/uL 08-17-2019 [facility] (Bld) [#/Vol] [place] ([address]) Eosinophils/100 0.0 1 - 6 % Low 08-17-2019 [facility] WBC (Bld) [place] ([address]) Erythrocyte 13.2 11.5 - % 08-17-2019 [facility] distribution 14.5 Health- width (RBC) [place] [Ratio] ([address]) Granulocytes/10 92.7 40 - 80 % High 08-17-2019 [facility] 0 WBC (Bld) [place] ([address]) Hematocrit 22.4 35 - 47 % Low 08-17-2019 [facility] (Bld) [Volume Health - fraction] [place] ([address]) Hemoglobin 7.5 11.7 - g/dL Low 08-17-2019 [facility] (Bld) 16 Health- [Mass/Vol] [place] ([address]) Interpretation Abnormal 08-17-2019 [facility] and review of Health - laboratory [place], [place] results ([address]) Lymphocytes 0.6 1 - 4.3 10*3/uL Low 08-17-2019 [facility] (Bld) [#/Vol] [place] ([address]) Lymphocytes/100 3.7 20 - 40 % Low 08-17-2019 [facility] WBC (Bld) [place] ([address]) MCH (RBC) 29.5 26 - 34 pg 08-17-2019 [facility] [Entitic mass] [place] ([address]) MCHC (RBC) 33.8 32 - 36 % 08-17-2019 [facility] [Mass/Vol] [place] ([address]) MCV (RBC) 87.4 79 - 98 fL 08-17-2019 [facility] [Entitic vol] [place] ([address]) Monocytes (Bld) 0.6 0 - 0.8 10*3/uL 08-17-2019 [facility] [#/Vol] [place] ([address]) Monocytes/100 3.5 2 - 10 % 08-17-2019 [facility] WBC (Bld) [place] ([address]) Platelet mean 7.7 7.4 - fL 08-17-2019 [facility] volume (Bld) 10.4 [facility] [Entitic vol] [place] ([address]) Platelets (Bld) 265 140 - 10*3/uL 08-17-2019 [facility] [#/Vol] 440 [place] ([address]) RBC (Bld) 2.56 3.8 - 10*6/uL Low 08-17-2019 [facility] [#/Vol] 5.2 [place] ([address]) WBC (Bld) 16.6 3.6 - 10*3/uL High 08-17-2019 [facility] [#/Vol] 10.7 [place] ([address]) Test Performed by 08-17-2019 [facility], [address] [place], [place] [facility], ( [address]) [place] [address] [facility], [facility] Incoming Radiology [facility] 5:08 PM EST 08-17-2019 [place] Patient Name: DENYS ARRIOLA ([id number]) ---Diagnostic Radiology--- Exam Date/Time 08/17/2019 14:30:00 EST Exam CR Tibia/Fibula 2 Views Bilateral Ordering Physician MD BURNHAM DYLAN R Accession Number [id number] CPT4 Codes 33119 () Reason For Exam incorrect count in surgery Report Left tibia and fibula CLINICAL INDICATION: Incorrect intraoperative content. Candy ng plastic clip quintana. Single view was obtained and an approximately a lateral proj ection. Metallic wire is noted with the electrode. Multiple surgical clips and skin clips are noted and there is also radiopaque catheter i s draining visible in the field. There is distortion of the distal tibi a consistent with fracture. There also appears to be overlying sponge. No definite foreign body is identified that would appear to be a plastic clamp. Report Dictated on --- Final --- Dictated: 08/17/2019 5:05 pm Dictating Physician: MD KEE DIANE Signed Date and Time: 08/17/2019 5:06 pm Signed by: MD KEE DIANE Transcribed Date and Time: 08/17/2019 5:05 Patient Name: 08-17-2019 DENYS Sargent [facility] [place] [facility] ( [id number]) ---Diagnostic Radiology--- Exam Date/Time 08/17/2019 14:30:00 EST Exam CR Tibia/Fibula 2 Views Bilateral Ordering Physician MD BURNHAM DYLAN R Accession Number [id number] CPT4 Codes 91660 () Reason For Exam incorrect count in surgery Report Left tibia and fibula CLINICAL INDICATION: Incorrect intraoperative content. Missing plastic clip quintana. Single view was obtained and an approximately a lateral projection. Metallic wire is noted with the electrode. Multiple surgical clips and skin clips are noted and there is also radiopaque catheter is draining visible in the field. There is distortion of the distal tibia consistent with fracture. There also appears to be overlying sponge. No definite foreign body is identified that would appear to be a plastic clamp. Report Dictated on --- Final --- Dictated: 08/17/2019 5:05 pm Dictating Physician: MD KEE DIANE Signed Date and Time: 08/17/2019 5:06 pm Signed by: MD KEE DIANE Transcribed Date and Time: 08/17/2019 5:05 Patient Name: 08-17-2019 [facility] [place], [facility] ( [id number]) ---Diagnostic Radiology--- Exam Date/Time 08/17/2019 14:30:00 EST Exam CR Femur 1 View Right n Ordering Physician MD BURNHAM DYLAN R Accession Number [id number] CPT4 Codes 78514 () Reason For Exam incorrect count in surgery Report Right femur CLINICAL INDICATION: Incorrect intraoperative films. Missing a plastic clip quintana. AP view was obtained. Metallic density renaldo and surgical clips are noted and there is radiopaque tubing superimposed on the femur. Background density from probably a thermal pad is also noted. No foreign body is identified which has the appearance of a plastic clip. Report Dictated on --- Final --- Dictated: 08/17/2019 5:03 pm Dictating Physician: MD KEE DIANE Signed Date and Time: 08/17/2019 5:04 pm Signed by: MD KEE DIANE Transcribed Date and Time: 08/17/2019 5:03 [facility] - 2019 5:06 PM EST [place]-17-2019 [place] Patient Name: DENYS ARRIOLA ([id number]) ---Diagnostic Radiology--- Exam Date/Time 08/17/2019 14:30:00 EST Exam CR Femur 1 View Right n Ordering Physician MD BURNHAM DYLAN R Accession Number [id number] CPT4 Codes 24006 () Reason For Exam incorrect count in surgery Report Right femur CLINICAL INDICATION: Incorrect intraoperative films. Missing a plastic clip quintana. AP view was obtained. Metallic density renaldo and surgical clips are noted and there is radiopaque tubing superimposed on the fem ur. Background density from probably a thermal pad is also noted . No foreign body is identified which has the appearance of a deven stic clip. Report Dictated on --- Final --- Dictated: 08/17/2019 5:03 pm Dictating Physician: MD KEE DIANE Signed Date and Time: 08/17/2019 5:04 pm Signed by: MD KEE DIANE Transcribed Date and Time: 08/17/2019 5:03 INR Coag (Bld) Few polymorphonuclear cells/lpf. 08-17-2019 [facility] [Relative time] [place] ([address]) Interpretation Abnormal 08-17-2019 [facility] and review of Health - laboratory [place], [place] results ([address]) Tissue Few 08-17-2019 [facility] Cult/Smear, Aer Possible identification Health- For identification and/or sensitivity, refer to culture [place] collected on: 08/14/2019 at 08:15 ([id number]). ([address]) Tissue Corynebacterium Abnormal 08-17-2019 [facility] Cult/Smear, [place] ([address]) Test Performed by 08-17-2019 [facility], [address] [place], [place] [facility], ( [address]) [place] [address] Specimen collected in O.R. INR Coag (Bld) Few polymorphonuclear cells/lpf. 08-17-2019 [facility] [Relative time] [place] ([address]) Interpretation Abnormal 08-17-2019 [facility] and review of Health - laboratory [place] results ([address]) Tissue Rare 08-17-2019 [facility] Cult/Smear, Aer Possible identification [facility] For identification and/or sensitivity, refer to culture [place] collected on: 08/14/2019 at 08:15 ([id number]). ([address]083) Tissue Corynebacterium Abnormal 08-17-2019 [facility] cy Cult/Smear, [place] ([address]) Test Performed by 08-17-[address] [facility], [address] [place], [place] [facility], ( [address]) [place] [address] Specimen collected in O.R. INR Coag (Bld) Few polymorphonuclear cells/lpf. 08-17-2019 [facility] [Relative time] [place] ([address]) Interpretation Abnormal 08-17-2019 [facility] and review of Health - laboratory [place] results ([address]) Tissue Corynebacterium Abnormal 08-17-2019 [facility] cy Cult/Smear, [place] ([address]) Tissue Few 08-17-2019 [facility] Cult/Smear, [place] ([address]) Test Performed by 08-17-[address] [facility], [facility] [place], [place] [facility], ( [address]) [place] [address] Specimen collected in O.R. Interpretation Abnormal 08-17-2019 [facility] and review of Health - laboratory [place] results ([address]) Vancomycin Tr 11.7 15 - 20 ug/mL Low 08-17-2019 [place] ([address]) Comment: . Test Performed by 08-17-2019 [place] ([address]) System, [address] [place] [address], [place] [address] Anion gap 6 mmol/L 08-17-2019 [facility] lt- [Moles/Vol] [place] ( [address]) Calcium [Mass/Vol] 8.7 8.4 - 10.4 mg/dL 08-17-2019 [place], [place] ([address]) Chloride 104 98 - 107 mmol/L 08-17-2019 [facility] lt- [Moles/Vol] [place] ( [address]) CO2 [Moles/Vol] 26 22 - 30 mmol/L 08-17-2019 [place], [place] ([address]) Creatinine 0.63 0.52 - 1.25 mg/dL 08-17-2019 [facility] [Mass/Vol] [place], [place] ([address]) EGFR IF NonAfrican >60.0 >60 mL/min 08-17-2019 [facility] [place] ([address]) Comment: Source- MDRD equation with c reatinine calibration to IDMS(NKDEP) eGFR not recommended for nicolas g dose adjustment GFR/1.73 sq M >60.0 >60 mL/min mL/min/{1.73_m2} 08-17-19 20 [facility] predicted among [facility] [place], blacks MDRD [place] (8[address] 7) (S/P/Bld) [Vol rate/Area] Glucose [Mass/Vol] 97 70 - 100 mg/dL 08-17-2019 [place] ([address]) Interpretation and Abnormal 08-17-2019 [facility] review of [facility] , laboratory results [place] ([address]) Potassium 4.3 3.5 - 5.1 mmol/L 08-17-2019 [facility] [Moles/Vol] [place] ([address]) Sodium [Moles/Vol] 136 135 - 145 mmol/L 08-17-2019 [place] ([address]) Urea nitrogen 26 7 - 20 mg/dL High 08-17-2019 [facility] [Mass/Vol] [place] ([address]) Test 08-17-2019 [facility] Performed by [facility] (961 10) [address] [address] Erythrocyte 13.8 11.5 - % 08-17-2019 [facility] distribution width 14.5 [facility], (RBC) [Ratio] [place] (17 459) Hematocrit (Bld) 32.2 35 - 47 % Low 08-17-2019 Me [facility] [Volume fraction] [place] ([address]) Hemoglobin (Bld) 10.9 11.7 - 16 g/dL Low 08-17-2019 [facility] [Mass/Vol] [place] ([address]) Interpretation and Abnormal 08-17-2019 [facility] review of [facility] , laboratory results K Y ([address]) MCH (RBC) [Entitic 30.0 26 - 34 pg 08-17-2019 [facility] mass] [place] ([address]) MCHC (RBC) 33.8 32 - 36 % 08-17-2019 [facility] [Mass/Vol] [facility] [place] ([address]) MCV (RBC) [Entitic 88.6 79 - 98 fL 08-17-2019 [facility] vol] [place] ([address]) Platelet mean 8.0 7.4 - 10.4 fL 08-17-2019 [facility] volume (Bld) [facility], [Entitic vol] [place] (45 [address]) Platelets (Bld) 282 140 - 440 10*3/uL 08-17-2019 [facility] [#/Vol] [place] ([address]) RBC (Bld) [#/Vol] 3.63 3.8 - 5.2 10*6/uL Low 08-17-2019 [place] ([address]) WBC (Bld) [#/Vol] 8.5 3.6 - 10.7 10*3/uL 08-17-2019 [place] ([address]) Test 08-17-2019 [facility] Performed by [facility] (452 37) System, [address] [place] [address] ts gel on 6 TS GEL ABO Group: Normal 08-16-2019 [facility] [employer] System ([address]) B Rh, Gel: POS Antibody Screen Gel: NEG Comment: Performed By: #### TROPN ### # [facility] [employer] [address] [address] prothrombin time on 2019-08-16 INR Coag (PPP) [Relative 1.0 0.9-1.1 Normal 08-15 [facility] [employer] [facility] time] ([address]) Comment: Result Comment: Recommended Anticoagulant Therapy: SEE BELOW ----- INR of 2.0 - 3.0 : - Prophylaxis of Venous Thro mbosis (high-risk surgery) - Treatment of Venous Thromb osis - Treatment of Pulmonary Emb olism (Includes tissue heart valves, Acute Myocardial Inf arction to prevent systemic embolism, Valvular Heart Dis ease, and Atrial Fibrillation) ----- INR of 2.5 - 3.5 : - Mechanical Prosthetic Valv es (high risk) - If oral anticoagulant ther apy is used to prevent Myocardial Infarction Performed By: #### TROPN ### # [facility] [address] [place], [place] PT Coag (PPP) [Time] 10.4 9.0-12.0 s Normal 0 [facility] (47[address]) Comment: Result Comment: . Performed By: #### TROPN ### # [place] [address] [address] [place], [place] hemogram on 2019-08 Erythrocyte distribution 13.5 11.5-14.5 % Normal 08-15 [facility] width (RBC) [Ratio] (03731) Comment: Performed By: #### TROPN ### # [place] [address] [address] [place], [place] Hematocrit (Bld) [Volume 32.4 35.0-47.0 % Low 08-15 [facility] System fraction] ([address]) Comment: Performed By: #### TROPN ### # [place] [address] [address] [place], [place] Hemoglobin (Bld) [Mass/Vol] 10.9 11.7-16.0 g/dL Low [facility] (40[address]) Comment: Result Comment: repeated Performed By: #### TROPN ### # [place] [address] [address] [place], [place] MCH (RBC) [Entitic mass] 29.7 26.0-34.0 pg Normal 08-15 [facility] (98205) Comment: Performed By: #### TROPN ### # [place] [address] [address] [place], [place] MCHC (RBC) [Mass/Vol] 33.5 32.0-36.0 % Normal 08-16-19 20 [facility] ([address]) Comment: Performed By: #### TROPN ### # [place] [address] [address] [place], [place] MCV (RBC) [Entitic vol] 88.7 79.0-98.0 fL Normal 2019 [facility] (30248) Comment: Performed By: #### TROPN ### # [facility] [address] [place], [place] Platelet mean volume (Bld) 8.7 7.4-10.4 fL Normal [facility] [Entitic vol] ([address] ) Comment: Performed By: #### TROPN ### # [facility] [address] [place], [place] Platelets (Bld) [#/Vol] 247 140-440 10*3/uL Normal 2019 [facility] ([address]) Comment: Performed By: #### TROPN ### # [place] [address] [address] [place], [place] RBC (Bld) [#/Vol] 3.65 3.80-5.20 10*6/uL Low 08-16-2019 [facility] ([address]) Comment: Performed By: #### TROPN ### # [place] [address] [address] [place], [place] WBC (Bld) [#/Vol] 9.0 3.6-10.7 10*3/uL Normal 08-16-2019 [facility] ([address]) Comment: Performed By: #### TROPN ### # [place] [address] [place], [place] basic metabolic panel on 2019-08-16 Calcium [Mass/Vol] 8.7 8.4-10.4 mg/dL Normal 08-16-2019 [facility] ([address]71) Comment: Performed By: #### TROPN ### # [facility] [address], [place] Anion gap [Moles/Vol] 7 Normal 08-16-19 [facility] (23271) Comment: Performed By: #### TROPN ### # [facility] [address], [place] CO2 [Moles/Vol] 25 22-30 mmol/L Normal 08-16-2019 [facility] ([address]358) Comment: Performed By: #### TROPN ### # [facility] [address] [place] [address] Creatinine [Mass/Vol] 0.69 0.52-1.25 mg/dL Normal 08-16-19 20 [facility] (38270) Comment: Performed By: #### TROPN ### # [facility] [address] [place] [address] GFR/1.73 sq M > 60.0 >60 mL/min/{1.73_m2} Normal 0 [facility] predicted among Syst em ([address]46) blacks MDRD (S/P/Bld) [Vol rate/Area] Comment: Performed By: #### TROPN ### # [facility] [facility] [address], [place] GFR/1.73 sq M > 60.0 >60 mL/min/{1.73_m2} Normal 0 [facility] predicted among Syst em (11222) non-blacks MDRD (S/P/Bld) [Vol rate/Area] Comment: Result Comment: Source- MDRD equation with creatinine calibration to IDMS(NKDEP) eGFR not recommended for nicolas g dose adjustment Performed By: #### TROPN ### # [facility] [place], [place] Glucose [Mass/Vol] 96 70-100 mg/dL Normal 08-16-2019 [facility] (09321) Comment: Performed By: #### TROPN ### # [facility] [address], [place] Urea nitrogen [Mass/Vol] 22 7-20 mg/dL High 08-15 [facility] (40330) Comment: Performed By: #### TROPN ### # [facility] [facility] [address], [place] Chloride [Moles/Vol] 104 98-107 mmol/L Normal 0 [facility] (81021) Comment: Performed By: #### TROPN ### # [facility] [address], [place] Potassium [Moles/Vol] 3.8 3.5-5.1 mmol/L Normal 08-16-19 20 [facility] (63068) Comment: Performed By: #### TROPN ### # [facility] [facility] [address] [place] [address] Sodium [Moles/Vol] 136 135-145 mmol/L Normal 08-16-2019 [facility] (93091) Comment: Performed By: #### TROPN ### # [facility] [facility] [address] [place] [address] No panel information on 2019-08-16 Erythrocyte distribution 13.5 11.5 - 14.5 % [place] width (RBC) [Ratio] ([address]) Hematocrit (Bld) [Volume 32.4 35 - 47 % Low 08-15 [place], [place] fraction] ([address]) Hemoglobin (Bld) [Mass/Vol] 10.9 11.7 - 16 g/[place] ([address]) Comment: repeated Interpretation and Abnormal 08-16-2019 [facility] review of laboratory [place], [place] ([address]) results MCH (RBC) [Entitic 29.7 26 - 34 pg 08-16-2019 [facility]- mass] [place], [place] ([address]) MCHC (RBC) [Mass/Vol] 33.5 32 - 36 % 08-16-19 20 [place], [place] ([address]) MCV (RBC) [Entitic 88.7 79 - 98 fL 08-16-2019 [facility]- vol] [place], [place] ([address]) Platelet mean volume 8.7 7.4 - 10.4 fL 08-16-[address] [place] [address]- (Bld) [Entitic vol] [place] ([address]) Platelets (Bld) 247 140 - 440 10*3/uL 08-16-2019 [facility] [#/Vol] [place], [place] ([address]) RBC (Bld) [#/Vol] 3.65 3.8 - 5.2 10*6/uL Low 08-16-2019 [place], [place] ([address]) WBC (Bld) [#/Vol] 9.0 3.6 - 10.7 10*3/uL 08-16-2019 [place], [place] ([address]) Test Performed 08-16-[address] [facility] ([address]) System, [address] [place] [address] Sodium [Moles/Vol] NEG mmol/L 08-16-2019 [place] ([address]) Comment: Test Performed by [facility], [address] [place] [address] Sodium [Moles/Vol] POS mmol/L 08-16-2019 [place] ([address]) Comment: Test Performed by [facility], [address] [place] [address] Sodium [Moles/Vol] B 08-16-2019 [place] ([address]) Test Performed by 08-16-2019 [facility] [place] ([address]) System, [address] [place] [address] Anion gap 7 mmol/L 08-16-2019 [facility]- [Moles/Vol] [place] ( [address]) Calcium [Mass/Vol] 8.7 8.4 - 10.4 mg/dL 08-16-2019 [place] ([address]) Chloride [Moles/Vol] 104 98 - 107 mmol/L 0 [place] ([address]) CO2 [Moles/Vol] 25 22 - 30 mmol/L 08-16-2019 [place] ([address]) Creatinine 0.69 0.52 - 1.25 mg/dL 08-16-2019 [facility] [Mass/Vol] [place], [place] (4 [address]) EGFR IF NonAfrican >60.0 >60 mL/min 08-16-2019 [place], [place] ([address]) Comment: Source- MDRD equation with c reatinine calibration to IDMS(NKDEP) eGFR not recommended for nicolas g dose adjustment GFR/1.73 sq M >60.0 >60 mL/min mL/min/{1.73_m2} 08-16-19 20 [facility] MDRD [place] ([address]) (S/P/Bld) [Vol rate/Area] Glucose [Mass/Vol] 96 70 - 100 mg/dL 08-16-2019 [place] ([address]) Interpretation and Abnormal 08-16-2019 [facility] review of [facility] , laboratory results [place] ([address]) Potassium 3.8 3.5 - 5.1 mmol/L 08-16-2019 [facility] [Moles/Vol] [place] ([address]) Sodium [Moles/Vol] 136 135 - 145 mmol/L 08-16-2019 [place] ([address]) Urea nitrogen 22 7 - 20 mg/dL High 08-16-2019 [facility] [Mass/Vol] [facility] [place] ([address]) Test 08-16-2019 [facility] Performed by [facility] ([address]) System, [facility] [place] [address] INR Coag (PPP) 1.0 OTH - OTH {INR} 08-16-2019 [facility] y [Relative time] [place] ([address]) Comment: Recommended Anticoagulant erapy: SEE BELOW ----- INR of 2.0 - 3.0 : - Prophylaxis of Venous Thro mbosis (high-risk surgery) - Treatment of Venous Thromb osis - Treatment of Pulmonary Emb olism (Includes tissue heart valves, Acute Myocardial Inf arction to prevent systemic embolism, Valvular Heart Dis ease, and Atrial Fibrillation) ----- INR of 2.5 - 3.5 : - Mechanical Prosthetic Valv es (high risk) - If oral anticoagulant ther apy is used to prevent Myocardial Infarction PT Coag (PPP) [Time] 10.4 9 - 12 s 0 [place] ([address]) Comment: . Test Performed by [facility] 08-16-2019 [place] ([address]) System, [place] [address] cta low ext w/ + w/o contrast left on 2019-08-15 CTA Low Ext w/ Patient Name: DENYS ARRIOLA Normal 08-15-2019 [facility] + w/o Contrast S ystem Left (0 0000) CT Exam Date/Time 08/15/2019 12:00:13 EST Exam CTA Low Ext w/ + w/o Contrast Left Ordering Physician MD DOUG FABIO Accession Number [id number] CPT4 Codes 19041 (), Q9967 (CT ISOVUE [id number]) Reason For Exam Evaluate LLE free flap recipient vessels for flap coverage Report CT ANGIOGRAPHY OF THE ABDOMEN AND PELVIS PLUS LEFT LOWER EXT REMITY: CLINICAL INDICATION: Fractures within the left lower extremi ty proportion for free flap graft TECHNIQUE: Transaxial sequence was performed through the abd omen and pelvis along with a left lower extremity with attention to t he left lower extremity. The field of view excludes the right side o f the abdomen and pelvis. COMPARISON: None FINDINGS: The abdominal aorta demonstrates normal caliber. T here is normal branching pattern of the celiac axis, superior mesent deon artery and renal arteries and inferior mesenteric artery. Th e common iliac, internal and external iliac arteries are normal. The left common femoral and profunda femoris are normal. The superficial femoral and popliteal artery are normal. There i s patent flow within the trifurcation vessels within the leg with run off into the plantar arch. The distal anterior tibial artery is less well delineated due to overlying cast. There is comminuted fracture of the distal tibia with a high attenuation graft device within the tibia. There are lucent pin tracts within the distal fibula. 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 There is no other abnormality within the visualized portions of the abdomen, pelvis or left lower extremity. IMPRESSION: Arterial runoff within left lower extremity is d elineated on the CT angiographic images. Evidence of fractures within the left distal tibia and fibula with surgical change and disuse oste oporosis Report Dictated on Final Dictated: 08/15/2019 9:02 pm Dictating Physician: MD SPRAGUE JEFFREY Signed Date and Time: 08/15/2019 9:09 pm Signed by: MD SPRAGUE JEFFREY Transcribed Date and Time: 08/15/2019 9:02 cr chest portable o n 2019-08-15 CR Chest Portable Patient Name: DENYS ARRIOLA [facility] 08-15-2019 [facility] (97246 ) Diagnostic Radiology Exam Date/Time 08/15/2019 18:00:56 EST Exam CR Chest Portable Ordering Physician LOUISA COATES Accession Number [id number] CPT4 Codes 20590 () Reason For Exam line placement Report SINGLE FRONTAL VIEW OF THE CHEST CLINICAL INDICATION: line placement TECHNIQUE: Single frontal view of the chest COMPARISON: 08/19/2016 FINDINGS: Left PICC catheter tip is in the SVC. Left costophrenic angle was not included on the study. Lungs are clear. No pleural effusion or pneumothorax seen. No vascular congestion. IMPRESSION: 1. No acute finding. Report Dictated on Final Dictated: 08/15/2019 9:31 pm Dictating Physician: MD MONTAGUE JOHN R Signed Date and Time: 08/15/2019 9:32 pm Signed by: MD MONTAGUE JOHN R Transcribed Date and Time: 08/15/2019 9:31 No panel information on 2019-08-15 [facility] Incoming Rad[facility] - 2019 9:34 PM EST 08-15-2019 [place] ([address]) Patient Name: DENYS ARRIOLA ---Diagnostic Radiology--- Exam Date/Time 08/15/2019 18:00:56 EST Exam CR Chest Portable Ordering Physician LOUISA COATES Accession Number [id number] CPT4 Codes 16660 () Reason For Exam line placement Report SINGLE FRONTAL VIEW OF THE CHEST CLINICAL INDICATION: line placement TECHNIQUE: Single frontal view of the chest COMPARISON: 08/19/2016 FINDINGS: Left PICC catheter tip is in the SVC. Left costophrenic angle was not included on the study. Lungs are clear. No pleural effusion or pneumothorax seen. No vascular congestion. IMPRESSION: 1. No acute finding. Report Dictated on --- Final --- Dictated: 08/15/2019 9:31 pm Dictating Physician: MD MONTAGUE JOHN R Signed Date and Time: 08/15/2019 9:32 pm Signed by: MD MONTAGUE JOHN R Transcribed Date and Time: 08/15/2019 9:31 Patient Name: [place] [address] [id number] ---Diagnostic Radiology--- Exam Date/Time 08/15/2019 18:00:56 EST Exam CR Chest Portable Ordering Physician LOUISA COATES Accession Number [id number] CPT4 Codes 10625 () Reason For Exam line placement Report SINGLE FRONTAL VIEW OF THE CHEST CLINICAL INDICATION: line placement TECHNIQUE: Single frontal view of the chest COMPARISON: 08/19/2016 FINDINGS: Left PICC catheter tip is in the SVC. Left costophrenic angle was not included on the study. Lungs are clear. No pleural effusion or pneumothorax seen. No vascular congestion. IMPRESSION: 1. No acute finding. Report Dictated on --- Final --- Dictated: 08/15/2019 9:31 pm Dictating Physician: MD MONTAGUE JOHN R Signed Date and Time: 08/15/2019 9:32 pm Signed by: MD MONTAGUE JOHN R Transcribed Date and Time: 08/15/2019 9:31 Patient Name: [place] [address] [id number] ---CT--- Exam Date/Time 08/15/2019 12:00:13 EST Exam CTA Low Ext w/ + w/o Contrast Left Ordering Physician MD CAMACHO ZACHARY Accession Number [id number] CPT4 Codes 29278 (), Q9967 (CT ISOVUE [id number]) Reason For Exam Evaluate LLE free flap recipient vessels for flap coverage 08/[address] ANGIOGRAPHY OF THE ABDOMEN AND PELVIS PLUS LEFT LOWER EXTREMITY: CLINICAL INDICATION: Fractures within the left lower extremity proportion for free flap graft TECHNIQUE: Transaxial sequence was performed through the abdomen and pelvis along with a left lower extremity with attention to the left lower extremity. The field of view excludes the right side of the abdomen and pelvis. COMPARISON: None FINDINGS: The abdominal aorta demonstrates normal caliber. There is normal branching pattern of the celiac axis, superior mesenteric artery and renal arteries and inferior mesenteric artery. The common iliac, internal and external iliac arteries are normal. The left common femoral and profunda femoris are normal. The superficial femoral and popliteal artery are normal. There is patent flow within the trifurcation vessels within the leg with runoff into the plantar arch. The distal anterior tibial artery is less well delineated due to overlying cast. There is comminuted fracture of the distal tibia with a high attenuation graft device within the tibia. There are lucent pin tracts within the distal fibula. Disuse osteoporosis is noted within the distal tibia, fibula along with the remainder of the ankle and foot. There is no other abnormality within the visualized portions of the abdomen, pelvis or left lower extremity. IMPRESSION: Arterial runoff within left lower extremity is delineated on the CT angiographic images. Evidence of fractures within the left distal tibia and fibula with surgical change and disuse osteoporosis Report Dictated on --- Final --- Dictated: 08/15/2019 9:02 pm Dictating Physician: MD SPRAGUE JEFFREY Signed Date and Time: 08/15/2019 9:09 pm Signed by: MD SPRAGUE JEFFREY Transcribed Date and Time: 08/15/2019 9:02 [facility] Incoming [facility] - 2019 9:10 PM EST 08-15-2019 [place] ([id number]) Patient Name: DEYNS ARRIOLA ---CT--- Exam Date/Time 08/15/2019 12:00:13 EST Exam CTA Low Ext w/ + w/o Contrast Left Ordering Physician MD DOUG, FABIO Accession Number [id number] CPT4 Codes 60736 (), Q9967 (CT ISOVUE [id number]) Reason For Exam Evaluate LLE free flap recipient vessels for flap coverage Report CT ANGIOGRAPHY OF THE ABDOMEN AND PELVIS PLUS LEFT LOWER EXT REMITY: CLINICAL INDICATION: Fractures within the left lower extremi ty proportion for free flap graft TECHNIQUE: Transaxial sequence was performed through the abd omen and pelvis along with a left lower extremity with attention to t he left lower extremity. The field of view excludes the right side o f the abdomen and pelvis. COMPARISON: None FINDINGS: The abdominal aorta demonstrates normal caliber. T here is normal branching pattern of the celiac axis, superior mesent deon artery and renal arteries and inferior mesenteric artery. Th e common iliac, internal and external iliac arteries are normal. The left common femoral and profunda femoris are normal. The superficial femoral and popliteal artery are normal. There i s patent flow within the trifurcation vessels within the leg with run off into the plantar arch. The distal anterior tibial artery is less well delineated due to overlying cast. There is comminuted fracture of the distal tibia with a high attenuation graft device within the tibia. There are lucent pin tracts within the distal fibula. 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 There is no other abnormality within the visualized portions of the abdomen, pelvis or left lower extremity. IMPRESSION: Arterial runoff within left lower extremity is d elineated on the CT angiographic images. Evidence of fractures within the left distal tibia and fibula with surgical change and disuse oste oporosis Report Dictated on --- Final --- Dictated: 08/15/2019 9:02 pm Dictating Physician: MD SPRAGUE JEFFREY Signed Date and Time: 08/15/2019 9:09 pm Signed by: MD SPRAGUE JEFFREY Transcribed Date and Time: 08/15/2019 9:02 [facility] 08-15-2019 [place] ([address]) Health System Test Date: 2019-08-14 Pat Name: Denys Arriola Department: 1A6 Room: 10 Gender: F Data Technical Lead: KENDALL : 1985 Requested By: DEON DAVILA Order Number: [id number] Reading MD: Maco Sepulveda Measurements Intervals Harper Rate: 78 P: 57 OK: 150 QRS: 85 QRSD: 81 T: 67 QT: 356 QTc: 406 Interpretive Statements Sinus rhythm Electronically Signed On 08-15-2019 17:41:04 EST by Maco Sepulveda [facility] Incoming Cardiolo gy Results From [facility] - 08/15/2019 5:42 PM EST [facility] 08-15-2019 [place] ([address]) Test Date: 2019-08-14 Pat Name: Denys Arriola Department: 1A6 Room: 6110 Gender: F Data Technical Lead: KENDALL : 1985 Requested By: DEON DAVILA Order Number: [id number] Reading MD: Maco Sepulveda Measurements Intervals Harper Rate: 78 P: 57 OK: 150 QRS: 85 QRSD: 81 T: 67 QT: 356 QTc: 406 Interpretive Statements Sinus rhythm Electronically Signed On 08-15-2019 17:41:04 EST by Maco Sepulveda troponin i on 08-13 Troponin I.cardiac < 0.012 0.000-0.034 ng/mL Normal 0 [facility] [Mass/Vol] (169[address]) Comment: Result Comment: . Performed By: #### TROPN ### # [address] [address] op note on Op Note PATIENT: DENYS ARRIOLA Normal 2019 [facility] ([id number]) ADMISSION DATE: 08/14/2019 SURGERY DATE: 08/14/2019 DATE OF : 1985 AGE: 33 ADMITTING PHYSICIAN: Deon Davila MD ATTENDING PHYSICIAN: Deon Davila MD DICTATING PHYSICIAN: Deon Davila MD OPERATIVE RECORD Procedures: 1. HARDWARE REMOVAL OF LEFT TIBIA AND FIBULA. 2. PARTIAL EXCISION OF LEFT TIBIA SECONDARY TO INFECTION. 3. INSERTION OF ANTIBIOTIC CEMENT SPACER, LEFT TIBIA. 4. APPLICATION OF WOUND VAC, LEFT LEG GREATER THAN 50 SQ CM. 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 Postoperative Diagnosis: Infected nonunion of left tibia wit h exposed hardware. Anesthesia: General. Assistants: 1. Carrington Stephens M.D. 2. Mando Ch PA-C. Blood Loss: 50 cc. Fluids: Crystalloid. Medications: Antibiotics were given after cultures were sent . Clinical History: The patient is a 33-year-old female who wa s transferred from outside facility for a third opinion on her left lower extremity injury. She was originally injured at the en d of March and had ORIF by a thermite bomb loader at outside ED. She repo rts that she has had wound breakdown with 2 I and D procedures, but h ad exposed hardware over the medial and lateral ankle since early . The lateral wound has granulated to the point where the hardware is not grossly visible, but the patient presented to office with gr ossly visible hardware over the medial malleolus with gross wound breakdown. The patient had plain films and a CAT scan for 6 weeks ago w hich both showed what appeared to be persistent nonunion of the tibia and likely the fibula as well. Recommendation was made for removal of h ardware, debridement of any grossly infected or nonviable bone, place ment of cement spacer, and discussion was had for the likely need fo r flap coverage pending debridement, although this attempted simple closure and/or skin grafting was warranted. This would be attempted. The patient had the opportunity to ask questions, wished to proc eed. No guarantees were given or implied. Description of Procedure: The patient was identified in the preoperative holding area. The surgical site was identified and marked. Informed consent was obtained and placed in the wilbur t. The patient was then brought to the operating room and placed gilman pine on the operating table. Anesthesia was administered. Care of th e head, neck, and airways was maintained by the anesthesia staff thr oughout the entire procedure. All bony prominences were identified a nd padded. The left lower extremity was then prepped and draped in the usual sterile fashion. Time-out was performed. Antibiotics were held for culture. A fter exsanguination, the tourniquet was inflated. The medial inci petrona was opened proximal to the opening and was exposed to the proxim al aspect of the plate. This dissection was initially carried anterior to the invasion, which was found to be very friable and upon furthe r examination, this was a large thickened scar layer with only a very thin layer of very friable remission on top of this. This ul timately was excised in a sharp excisional manner. The plate was expo sed. A screwdriver was used to remove all screws, followed by the p late. There was a large amount of heterotopic bone and attempted c allus formation at the proximal posteromedial aspect which was seun rided using a rongeur. The nonunion site then was identified media lly. There was a central area of what appeared to be a grossly av ascular bone. The tourniquet was ultimately deflated and this was co nfirmed to have zero blood supply. This was then debrided with a flaquito geur until approximately 3 x 2 cm defect in the tibia was present . There was gross motion at the nonunion site at this time. All meño ining bone of the tibia appeared to have excellent blood supply. T here were multiple specimens sent from the medial wound including soft tissue as well as tibia for final culture. The wound was copiously irr igated with sterile saline using multiple liters of sterile saline for pressure lavage. Antibiotic cement spacer was made using van comycin powder. This was placed within the tibial defect and laid ov er the cortices. A portion of the wound medially was able to be ramiro sed using retention sutures with 3-0 nylon. A wound VAC was then appli ed over a piece of Adaptic to cover the cement in the medial tibia and this was a total of 6 x 2.5 cm in cross-section. This obtained excell ent seal. The lateral wound similarly was opened anterior to the area of granulation extended to allow exposure of the lateral fibula r plate. This was removed by removing all screws followed by the plat e. The specimen was also sent from the tibia nonunion. There was no gross contamination present. Irrigation was copiously performed of the lateral wound. This was then closed using 3-0 nylon with Ryxxblcw-Hqjvdb-ivtx sutures to repair the wound bed back to the edge of the granulation tissue. This granulation was covered with Adaptic and a wound VAC as well. Compressive dressing was applied ar ound the ankle and the limb was then placed in a well-padded posterio r splint with the ankle in neutral dorsiflexion. X-ray had been used to confirm that the tibia was well aligned with a cement spacer in place. The patient was then extubated and taken to PACU in stable c ondition without complication. Diskriter Job ID: [id number] Deon Davila MD DOD:08/14/2019 03:13 P EM/marcelo DOT:08/14/2019 04:40 P Job Number: [id number] Document Number: [id number] cc: Deon Davila MD [address] [place] [address] [place] [address] hemoglobin and hematocrit on 2019-08-14 Hematocrit (Bld) [Volume 38.2 35.0-47.0 % Normal 08-13 [facility] fraction] ([id number]) Comment: Performed By: #### HGHCT ### # [address] [place] [address] Hemoglobin (Bld) 13.3 11.7-16.0 g/dL Normal 08-14-2019 [facility] [Mass/Vol] ([address]) Comment: Performed By: #### HGHCT ### # [facility] [address] [place] [address] No panel information on 2019-08-14 Troponin I.cardiac <0.012 0 - 0.034 ng/mL 08-14-2019 [facility] [place] [Mass/Vol] ([address]) Comment: . Test Performed by 08-14-2019 [facility], [facility] [place] ([address]) System, [address] [place] [address] Hematocrit (Bld) 38.2 35 - 47 % 08-14-2019 [facility], [Volume fraction] [place] ([address]) Hemoglobin (Bld) 13.3 11.7 - 16 g/dL 08-14-2019 [facility], [Mass/Vol] [place] ([address] ) Test Performed by 08-14-2019 [facility], [facility] [place] ([address]) System, [place] [address] cnco on 2019-08-06 CNCO Letter Text Normal 08-06-2019 [facility] ([id number]) bact/cand vag grm st on 2019-07-09 Bact/Cand Vag Grm Sp. Request/Comment: - Swab Norm al 07-09-2019 [facility] ([id number]) Smear Result - BACTERIAL VAG INOSIS RESULT: Stain results indicate mixed morphotypes consistent with transition from normal vaginal fausto. No Yeast observed Rare Polymorphonuclear leukocytes Comment: Performed By: #### BVCNSM ## ## [facility] Laboratorie s [address] [place], [place] [address] progress on 2019-06 PROGRESS HNO ID: [id number] Normal 07-08-2019 [facility] Author: Whit Hassan [place] ([id number]) Service: ? Author Type: Physician Type: Progress Notes Filed: 07/08/2019 3:29 PM Note Text: Denys Arriola is a 33 year old female who presents for fabiola rns regarding vaginal irritation. Patient states since approximately she's been in and out of the hospital with wound infection after a severe ankle break went ice skating. Patient is now on a wound VAC and mu ltiple antibiotics. Patient states that since April vagina has f elt inflamed, irritated, odor with yellow/creamy discharge. Patient report s that sex is painful. She denies any significant pelvic pain or dysuria. Patient denies any changes with soaps or detergents. Denies any conc erns for sexually transmitted diseases. Patient reports a history of a hysterectomy for endometriosis. PAST MEDICAL HISTORY Diagnosis Date - NEGATIVE MEDICAL HISTORY PAST SURGICAL HISTORY Procedure Laterality Date - DELIVERY ONLY 07/07/2012 - PAST SURGICAL HISTORY OF dx lap for endometriosis - VAGINAL HYSTERECTOMY 06/2016 FAMILY HISTORY Problem Relation Age of Onset - Breast Cancer Mother - Diabetes Mother - Heart Mother - Stroke Mother - Hyperlipidemia Father Social History Tobacco Use - Smoking status: Never Smoker - Smokeless tobacco: Never Used Substance Use Topics - Alcohol use: No - Drug use: No Current Outpatient Medications Medication Sig - benzonatate (TESSALON PERLES) 100 mg capsule Take 2 capsul es by mouth three times daily as needed for Cough. - Rocdwccijutpqxx-Ozvpsbwon-ED (BROMFED DM) 2-30-10 mg/5 mL syrup Take 10 mL by mouth four times daily as needed. - Cetirizine (ZYRTEC) 10 mg cap Take 1 tablet by mouth as ne eded. No current facility-administered medications for this visit. Allergies As of Date: 07/08/2019 (No Known Allergies) Fully Assessed 06/17/2017 REVIEW OF SYSTEMS Abdomen: no pain Bladder: no dysuria.. Expanded ROS: GENERAL: fever- likely related to wound infect ion- not recently. Allergies and current medication updated:Yes EXAM: BP 128/78 Wt 150 lb (68.0kg) GENERAL: pleasant, female in no apparent distress HEENT: Normocephalic, atraumatic, mucus membranes moist and no lesions NECK: full range of motion DERMATOLOGY: Normal, without lesions, non-icteric and non-hi rsute PELVIC: normal Bartholin's glands, urethra, Tetonia's glands, no cervical lesions, good vaginal support, vulva appears erythematous wi th excoriations appreciated. Moderate amount of yellow thick di scharge. NEURO: alert and oriented x3,exam grossly non-focal EXTREMITIES: Left lower extremity- Non weight bearing- wound vac and dressing in place. ASSESSMENT AND PLAN: Encounter Diagnosis ICD-10-CM 1. Vaginal irritation N89.8 BACT/SHUN VAG GRAM STAIN 2. Vaginal discharge N89.8 BACT/SHUN VAG GRAM STAIN 3. Vulvovaginitis N76.0 4. Lotrisone, Flagyl, Diflucan ordered. 5. Vulvar hygiene reviewed 6. Call if symptoms do not improve or if they worsen. Whit Calero MD cnov on 2019-07-08 CNOV Office Visit (WOOB) Normal 07-08-[address] [place] [facility] FLAKODENYS Bernal ([id number]) 1985 [facility] Date Time Provider Department ([id number]) 07/08/19 3:20 PM WHIT VIVEROS WOOB During your visit today, we recorded the following informati on about you: Blood pressure Weight 128/78 68 kg Whit Calero MD 07/08/2019 3:29 PM Signed Denys Meadsh is a 33 year old female who presents for fabiola rns regarding vaginal irritation. Patient states since ly April she's been in and out of the hospital with wound infection after a s evere ankle break went ice skating. Patient is now on a wound VAC and multipl e antibiotics. Patient states that since April vagina has felt inflamed, irritat ed, odor with yellow/creamy discharge. Patient reports that sex is p ainful. She denies any significant pelvic pain or dysuria. Patient denies any changes with soaps or detergents. Denies any concerns for sexually transmitted dis eases. Patient reports a history of a hysterectomy for endometriosis. PAST MEDICAL HISTORY Diagnosis Date - NEGATIVE MEDICAL HISTORY PAST SURGICAL HISTORY Procedure Laterality Date - DELIVERY ONLY 07/07/2012 - PAST SURGICAL HISTORY OF dx lap for endometriosis - VAGINAL HYSTERECTOMY 06/2016 FAMILY HISTORY Problem Relation Age of Onset - Breast Cancer Mother - Diabetes Mother - Heart Mother - Stroke Mother - Hyperlipidemia Father Social History Tobacco Use - Smoking status: Never Smoker - Smokeless tobacco: Never Used Substance Use Topics - Alcohol use: No - Drug use: No Current Outpatient Medications Medication Sig - benzonatate (TESSALON PERLES) 100 mg capsule T burke 2 capsules by mouth three times daily as needed for Cough. - Brompheniramine-Pseudoeph- DM (BROMFED DM) 2-30-10 mg/5 mL syrup Take 10 mL by mouth four times daily as needed. - Cetirizine (ZYRTEC) 10 mg cap Take 1 tablet by mouth as ne eded. No current facility-administered medications for this visit. Allergies As of Date: 07/08/2019 (No Known Allergies) Fully Assessed 06/17/2017 REVIEW OF SYSTEMS Abdomen: no pain Bladder: no dysuria.. Expanded ROS: GENERAL: fever- likely rel ated to wound infection- not recently. Allergies and current medication updated:Yes EXAM: BP 128/78 Wt 150 lb (68.0kg) GENERAL: pleasant, female in no apparent distress HEENT: Normocephalic, atraumatic, mucus membranes moist and no lesions NECK: full range of motion DERMATOLOGY: Normal, without lesions, non-icteric and non-hi rsute PELVIC: normal Bartholin's glands, urethra, Tetonia's glands, no cervical lesions, good vaginal support, vulva appears erythematous with excoriations appreciated. Moderate amount of yellow thick discharge. NEURO: alert and oriented x3,exam grossly non-focal EXTREMITIES: Left lower extremity- Non weight be aring- wound vac and dressing in place. ASSESSMENT AND PLAN: Encounter Diagnosis ICD-10-CM 1. Vaginal irritation N89.8 BACT/SHUN VAG GRAM STAIN 2. Vaginal discharge N89.8 BACT/SHUN VAG GRAM STAIN 3. Vulvovaginitis N76.0 4. Lotrisone, Flagyl, Diflucan ordered. 5. Vulvar hygiene reviewed 6. Call if symptoms do not improve or if they worsen. Whit Calero MD Referring Provider: SELF [200] Allergies As of Date: 07/08/2019 (No Known Allergies) Date Reviewed: 07/08/2019 Reviewed by: Bella Davidson Ma - Fully Assessed Reason for Visit: Vaginal Infection [241] Primary Visit Diagnosis:Vaginal irritation [N89.8] Other Visit Diagnoses:Vaginal discharge [N89.8] Vulvovaginitis [N76.0] Order(s):fluconazole (DIFLUCAN) 150 mg tabletTake one tablet PO today and repeat in 3 days.Disp: 2 tabletRfl: 1 metroNIDAZOLE (FLAGYL) 500 mg tabletTake 1 tablet by mouth t wice daily for 7 days.Disp: 14 tabletRfl: 0 clotrimazole-betamethasone (LOTRISONE) creamApply 1 applicat ion to affected area twice daily.Disp: 30 gRfl: 0 BACT/SHUN VAG GRAM STAIN [SQBVCNSM] Order #: [id number] F UTURE Prescriptions as of 07/08/2019 Sig: CALCIUM CARBONATE 500 MG CALC* Calcium Carbonate Calcium (El * CHOLECALCIFEROL (VITAMIN D3) * Cholecalciferol Cholecalcifer * PROBIOTIC COMPLEX ORAL Take by mouth. DOXYCYCLINE MONOHYDRATE 100 M* Take 1 capsule by mouth twice * HYDROCODONE 5 MG-ACETAMINOPHE* Take 1 tablet by mouth every * FLUOXETINE 10 MG TABLET Take 10 mg by mouth once aissatou* CEPHALEXIN 500 MG TABLET Take by mouth. FLUCONAZOLE 150 MG TABLET Take one tablet PO today and * METRONIDAZOLE 500 MG TABLET Take 1 tablet by mouth twice * CLOTRIMAZOLE-BETAMETHASONE 1 * Apply 1 application to affect * BENZONATATE 100 MG CAPSULE Take 2 capsules by mouth thre* BROMPHENIRAMINE-PSEUDOEPHEDRI* Take 10 mL by mouth four time * CETIRIZINE 10 MG CAPSULE Take 1 tablet by mouth as nee* Problem List As Of Date: 07/08/2019 (None) Prescriptions ordered this encounter Disp Refills Start End FLUCONAZOLE 150 MG TABLET 2 ta* 1 07/08/2019 Sig: Take one tablet PO today and repeat in 3 days. METRONIDAZOLE 500 MG TABLET 14 t* 0 07/08/2019 07/15/2019 Route: ORAL Sig: Take 1 tablet by mouth twice daily for 7 days. CLOTRIMAZOLE-BETAMETHASONE 1 %-0.05 * 30 g 0 07/08/2019 Route: TOPICAL Sig: Apply 1 application to affected area twice daily. Encounter Status:Closed by WHIT HASSAN MD on 07/08/19 Vital Signs Vital Sign Description Value / Unit Date Location The following section is limited to 5 en tries per type and includes entries from the following time range: [id number] - 1. BMI (Body Mass Index) 26.63 kg/m2 12-11-2019 [facility] ([address]) BMI (Body Mass Index) 23.49 kg/m2 11-15-2019 [facility] [place] [place] ([address]) BMI (Body Mass Index) 23.49 kg/m2 11-12-2019 [facility] ([address]) BMI (Body Mass Index) 23.49 kg/m2 09-27-2019 [facility] ([address]) BMI (Body Mass Index) 23.49 kg/m2 08-14-2019 [facility] ([address]) Body Temperature 97 [degF] 01-09-2020 [facility] ([address]) Body Temperature 98.2 [degF] 12-11-2019 [facility] ([address]) Body Temperature 97.7 [degF] 11-18-2019 [facility] ([address]) Body Temperature 98.1 [degF] 11-12-2019 [facility] ([address]) Body Temperature 98.91 [degF] 09-28-2019 [facility] ([address]) Body weight 77.11 kg 12-11-2019 [facility] [place] ([address]) Body weight 68.04 kg 11-15-2019 [facility] [place] ([address]) Body weight 68.04 kg 11-12-2019 [facility] [place] ([address]) Body weight 68.04 kg 09-27-2019 [facility] [place] ([address]) Body weight 68.04 kg 08-14-2019 [facility] [place] ([address]) BP Diastolic 70 mm[Hg] [facility]-09-2020 [facility] [place] ([address] BP Diastolic 74 mm[Hg] 12-11-2019 [place] ([address]) BP Diastolic 84 mm[Hg] 11-18-2019 [place] ([address]) BP Diastolic 84 mm[Hg] 11-12-2019 [place] ([address]) BP Diastolic 66 mm[Hg] 09-28-2019 [place] ([address]) BP Systolic 112 mm[Hg] 01-09-2020 [place] ([address]) BP Systolic 115 mm[Hg] 12-11-2019 [place] ([address]) BP Systolic 106 mm[Hg] 11-18-2019 [place] ([address]) BP Systolic 113 mm[Hg] 11-12-2019 [place] ([address]) BP Systolic 112 mm[Hg] 09-28-2019 [place] ([address]) Height 170.2 cm 12-11-2019 [place] ([address]) Height 170.2 cm 11-15-2019 [place] ([address]) Height 170.2 cm 11-12-2019 [place] ([address]) Height 170.2 cm 09-27-2019 [place] ([address]) Height 170.2 cm 08-18-2019 [place] ([address]) Pulse (Heart Rate) 64 /min 01-09-2020 [place] ([address]) Pulse (Heart Rate) 73 /min 12-11-2019 [place] ([address]) Pulse (Heart Rate) 98 /min 11-18-2019 [place] ([address]) Pulse (Heart Rate) 95 /min 11-12-2019 [place] ([address]) Pulse (Heart Rate) 99 /min 09-28-2019 [place] ([address]) Pulse Oximetry 99 % 01-09-2020 [place] ([address]) Pulse Oximetry 100 % 12-11-2019 [place] ([address]) Pulse Oximetry 97 % 11-18-2019 [place] ([address]) Pulse Oximetry 96 % 11-12-2019 [place] ([address]) Pulse Oximetry 96 % 09-28-2019 [place] ([address]) Respiratory Rate 18 /min 01-09-2020 [facility] ([address]) Respiratory Rate 20 /min 12-11-2019 [facility] ([address]) Respiratory Rate 16 /min 11-18-2019 [facility] ([address]) Respiratory Rate 15 /min 09-28-2019 [facility] ([address]) Respiratory Rate 20 /min 08-28-2019 [place] ([address]) Encounters Date Type Reason Provider Location 10-26-2017 [facility] Dimas UGALDEJASMIN Facility:[facility] 11-15-2019 - Evaluation and Closed fracture Deon Davila [facility] H6 TE LEMETRY 11-18-2019 management of distal tibia Jesse R Boris inpatient Deon Davila Comment: Closed torus fracture of dis oneyda end of left tibia with nonunion (Primary Dx) 08-14-2019 - Evaluation and Closed fracture Deon Davila [facility] H5 ME D 08-28-2019 management of distal tibia Jesse R Boris SURG inpatient Deon Varnerlan R Boris Deon Davila Comment: Closed torus fracture of dis oneyda end of left tibia with delayed healing, subsequent encounter (Primar y Dx) 01-09-2020 - Subsequent hospital Closed fracture Deon MCLAIN General 01-09-2020 visit by physician of shaft of tibia Surg lan Comment: Closed displaced oblique fra cture of shaft of left tibia with nonunion (Primary Dx) 12-11-2019 - Subsequent hospital H/O: surgery Jesse R Boris SHB [place] 12-11-2019 visit by physician Surgery Comment: S/P split thickness skin gra ft (Primary Dx) 11-12-2019 - Subsequent hospital Deon MCLAIN Pre -Admit Testing 11-12-2019 visit by physician Jesse Davila Comment: Arrived 09-27-2019 - Subsequent hospital Wound dehiscence Jesse R Boris AC H H5 MED 09-28-2019 visit by physician SURG Comment: Wound dehiscence (Primary Dx ) Procedures Procedure Name Date Provider Location OPERATIVE REPORT 12-11-[address] [place] [address], [place] ([address]) Drug screen quantitative 11-17-2019 [facility] [place] vancomycin ([address]) BASIC METABOLIC PANEL W/ 11-16-2019 Steven Knutson [facility] [place] REFLEX TO MG FOR LOW K (84930) Blood count complete 11-16-2019 Steven Knutson [facility], [place] automated ([address]10) OPERATIVE REPORT 11-15-[address] [place] [address], [place] ([address]) Cul prsmptv pthgnc 11-15-2019 Deon Davila [place] organism scrn w/colony (42000) estimj COVID-19 11-12-2019 Shanelle [place] ([address]) Blood count hemoglobin 11-12-2019 Shanelle Mcgill [facility], [place] ([address]) Blood typing serologic 11-12-2019 Shanelle Mcgill [place] abo ([address]) OPERATIVE REPORT 09-27-[address] [place] [address], [place] ([address]) Basic metabolic panel 08-28-2019 Everton Cha [place] calcium total ([address]23) Blood count complete 08-28-2019 Everton Cha [place] auto&auto difrntl wbc (61213) Basic metabolic panel 08-27-2019 Ever[place] calcium total ([address]386) Blood count complete 08-27-2019 Everton Cha [place] auto&auto difrntl wbc (20123) Drug screen quantitative 08-26-2019 Victor Manuel [place] vancomycin ([address]596) Basic metabolic panel 08-26-2019 Everton [place] calcium total (80991) Blood count complete 08-26-2019 Everton Cha [place] auto&auto difrntl wbc (47434) Basic metabolic panel 08-25-2019 Everton [place] calcium total (83327) Blood count complete 08-25-2019 Everton Maldonado [place] auto&auto difrntl wbc (64731) Basic metabolic panel 08-24-2019 Everton [place] calcium total (56943) Blood count complete 08-24-2019 Everton Cha [place] auto&auto difrntl wbc (39396) Drug screen quantitative 08-23-2019 Everton Corbett [place] vancomycin ([address]16) OPERATIVE REPORT 08-23-2019 Scanning [facility] [place] ([address]) Blood count complete 08-23-2019 Everton Cha [place] auto&auto difrntl wbc (84579) Blood typing serologic 08-22-2019 Petar Nuno [place] abo ([address]609) Drug screen quantitative 08-22-2019 Victor Manuel [place] vancomycin (93106) Blood count complete 08-22-2019 Everton Cha [place] auto&auto difrntl wbc (52203) Blood count complete 08-21-2019 Everton Cha [place] auto&auto difrntl wbc (05318) Drug screen quantitative 08-20-2019 Everton [place]ett [place] vancomycin ([address]68) Assay of magnesium 08-20-2019 [place] ([address]) Basic metabolic panel 08-20-2019 [place] calcium total ([address]60) Blood count complete 08-20-2019 Everton Cha [place] auto&auto difrntl wbc (13324) Blood typing serologic 08-19-2019 Jesse Burnham [place] abo ([address]94) Assay of magnesium 08-19-2019 [place] ([address]) Basic metabolic panel 08-19-2019 [place] calcium total ([address]015) Blood count complete 08-19-2019 Everotn Cha [place] auto&auto difrntl wbc (50659) Blood count hemoglobin 08-18-2019 Jesse R [place] ([address]) Assay of magnesium 08-18-2019 [place] ([address]) Basic metabolic panel 08-18-2019 Valencia Oakes [facility] [place] calcium total ([address]402) Blood count complete 08-18-2019 Everton Cha [place] auto&auto difrntl wbc (23329) TRANSFUSE PLATELETS 08-18-2019 [place] ([address]) TRANSFUSE FRESH FROZEN 08-18-2019 - [place] Joel Cha [place] PLASMA 08-18-2019 (99046) TRANSFUSE RED BLOOD CELLS 08-18-2019 - Evertonfabricio [place] 08-18-2019 (40359) Blood count hemoglobin 08-17-2019 [place] ([address]) Radex ankle complete 08-17-2019 Steven Mckeonlaurijudah [place] minimum 3 views (72954) Assay of magnesium 08-17-2019 [place] ([address]) Blood count complete 08-17-2019 Alberto [place] auto&auto difrntl wbc (56337) Renal function panel 08-17-2019 [place] ([address]) Radiologic examination 08-17-2019 Jesse R Boris [facility] [place] tibia & fibula 2 views (13420) Radiologic examination 08-17-2019 Jesse R Boris [facility] [place] femur 1 view (84991) Basic metabolic panel 08-17-2019 Fabio Magda [place] calcium total (67450) Blood count complete 08-17-2019 Fabio Man [place] automated ([address]76) Drug screen quantitative 08-17-2019 [place] vancomycin ([address]604) Basic metabolic panel 08-16-2019 Fabio [place] calcium total (70372) Blood count complete 08-16-2019 [place] automated ([address]11) Blood typing serologic 08-16-2019 - [place] abo 08-16-2019 Everton Cha (18628) PREPARE FRESH FROZEN 08-16-2019 Everton Cha [place] PLASMA (97586) PREPARE PLATELETS 08-16-2019 [place] ([address]) Prothrombin time 08-16-2019 [place] ([address]) Radiologic exam chest 08-15-2019 Louis[place]ia Coates [place], [place] single view (29268) Ct angiography lower 08-15-2019 [place] extremity ([address]57) Assay of troponin 08-14-2019 Petar Nuno [place] quantitative ([address]39) Ecg routine ecg w/least 08-14-2019 Deon Alan Yovanny [place] 12 lds w/i&r (92876) Cul bact xcpt urine 08-14-2019 - Deon T [place] blood/stool aerobic isol 08-14-2019 (41082) Culture bacterial any 08-14-2019 - Deon T [place] source anaerobic iso&id 08-14-2019 (28179) Blood count hemoglobin 08-14-2019 [place] ([address]) Plan of Treatment Plan Description Date Location Shingles Vaccine (1 of Shingles Vaccine (1 of 2034 [place], [place] 2) 2) ([address]681) Breast cancer screen Breast cancer screen 2024 [place], [place] 2024 ([address]91) Breast cancer screen Breast cancer screen 2024 [place], [place] 2024 ([address]29) DTaP/Tdap/Td vaccine (2 DTaP/Tdap/Td vaccine (2 06-12-2022 [place] - Td) - Td) 06-12-2022 (92904) Flu vaccine (Season no information 02-11-2020 - [facility] [place] Ended) 02-11-2020 (65654) Nurse Only no information 01-21-2020 - [facility] Med ical 01-21-2020 [facility] [place] Office Visit 12/19/2019 Office Visit 12-19-2019 - Infect D isease - [place] Infectious Diseases 12-19-2019 Mame Stallings MD [address] [place] [address], [address] [place], [place] [id number] Office Visit 12/17/2019 Office Visit 12-17-2019 - [facility]-17[facility] Group O rthopedics and LAKESHIA [place] [facility] [address] [facility] [id number] Office Visit 12/03/2019 Office Visit 12-03-2019 - [facility] Lit alth Medical Orthopedic Surgery 12-03-2019 Group Orthope dics and Deon Davila MD 1 Sports Medi cine [facility] [address] [place], [place] [id number] Office Visit 11/26/2019 Office Visit 11-26-2019 - [facility] Lit alth Medical Orthopedic Surgery 11-26-2019 Group Orthope dics and BorisJesse MD 1 Sports Med [facility] [address] [place], [place] [address] Office Visit 11/21/2019 Office Visit 11-21-2019 - [facility] Lit alth Medical Orthopedic Surgery 11-21-2019 Group Orthope dics and BorisJesse MD 1 Sports Med [facility] [address] [place], [place] [address] Appointment 11/15/2019 Appointment 11-15-2019 - [facility] al Surgery General Surgery Yovanny 11-15-2019 Deon Garcia MD 1 [facility] [address] [place] [address] [phone] Boris, Jesse Shetty MD 1 [facility] [address] [place] [address] [phone] Office Visit 10/03/2019 Office Visit 10-03-2019 - Kobi carroll [facility] [place] [facility] Orthopedic Surgery 10-03-2019 Group Orthope dics and BorisJesse MD 1 Sports Med icine [facility] [address] [place] [address] [phone] Office Visit 09/26/2019 Office Visit 09-26-2019 - Infect D isvirgilio [facility] Infectious Diseases 09-26-2019 Mame Stallings MD [address] [place] [address] Street, [address] [place], [place] [id number] Flu vaccine (#1) Flu vaccine (#1) 02-10-2019 [place] ([address]) HIV screen HIV screen 12-29-1999 - [place] 12-29-1999 (47199) HIV screen HIV screen 12-29-1999 - [place] 12-29-1999 (93828) Varicella vaccine (1 of Varicella vaccine (1 of 1985 - [place] 2 - 2-dose childhood 2 - 2-dose childhood 1985 (83517 ) series) series) Basic Metabolic Panel Basic Metabolic Panel [place] Lab Routine Daily until (08838) discontinued starting 08/25/2019, 4 completed Comment: Daily until discontinued sta rting 08/25/2019, 4 completed Blood glucose - POCT Blood glucose - POCT Point of 01-09-2020 [place] Care Testing STAT One Time (4523 7) for 1 Occurrences starting 01/09/2020 until 01/09/2020 Comment: One Time for 1 Occurrences s tarting 01/09/2020 until 01/09/2020 CBC Auto Differential CBC Auto [place] ([address]) Daily until discontinued starting 08/18/2019, 11 completed Comment: Daily until discontinued sta rting 08/18/2019, 11 completed Creatinine, serum Creatinine, serum Lab STAT One 01-09-2020 [facility] [place] Time for 1 Occurrences (69691) starting 01/09/2020 until 01/09/2020 Comment: One Time for 1 Occurrences s tarting 01/09/2020 until 01/09/2020 Culture, Anaerobic and Culture, [facility]erobic [facility] [place] Aerobic Aerobic Microbiology (81017) Routine 11/15/2019 8:20 AM EDT [place] Greater Than 1 Hour [place] Greater Than 1 Hour 08-14-2019 [facility], [place] Imaging Routine Once for 1 (4523 7) Occurrences starting 08/14/2019 until 08/14/2019 Comment: Once for 1 Occurrences start ing 08/14/2019 until 08/14/2019 [place] Greater Than 1 Hour no information [facility] [place] ([address]) [place] Greater Than 1 Hour [place] Greater Than 1 Hour 11-15-2019 [facility] [place], [facility] Imaging Routine Once for 1 (4523 7) Occurrences starting 11/15/2019 until 11/15/2019 Comment: Once for 1 Occurrences start ing 11/15/2019 until 11/15/2019 FL Greater Than 1 Hour [place] Greater Than 1 Hour 08-23-2019 [facility], [facility] Imaging Routine Once for 1 (4523 7) Occurrences starting 08/23/2019 until 08/23/2019 Comment: Once for 1 Occurrences start ing 08/23/2019 until 08/23/2019 [place] Greater Than 1 Hour [place] Greater Than 1 Hour 01-09-2020 [facility] [facility] Imaging Routine Once for 1 ([id number]) Occurrences starting 01/09/2020 until 01/09/2020 Comment: Once for 1 Occurrences start ing 01/09/2020 until 01/09/2020 HHN Treatment [facility] ([id number]) 0600, 1000, 1400, 1800, 2200 until discontinued starting 08/17/2019 Comment: 0600, 1000, 1400, 1800, 2200 until discontinued starting 08/17/2019 Incentive spirometry no information [facility], [place] ([id number]) Comment: Every 2hr while awake until discontinued starting 09/27/2019 Every 2hr while awake until discontinued starting 08/15/2019 Q1H PRN until discontinued s tarting 12/11/2019 Q1H PRN until discontinued s tarting 01/09/2020 Initiate Oxygen Therapy Protocol no information [place] ([id number]) Comment: Daily until discontinued sta rting 09/27/2019 Daily until discontinued sta rting 08/14/2019 Daily until discontinued sta rting 11/15/2019 Daily until discontinued sta rting 12/11/2019 Pulse Oximetry Spot Pulse Oximetry Spot Check 01-09-2020 [place], [place] Check Respiratory Care Routine ([id number]) One Time for 1 Occurrences starting 01/09/2020 until 01/09/2020 Comment: One Time for 1 Occurrences s tarting 01/09/2020 until 01/09/2020 Initiate Oxygen Therapy Initiate Oxygen Therapy [place], [place] Protocol Protocol Respiratory Care ([id number] ) Routine Daily until discontinued starting 01/09/2020 Comment: Daily until discontinued sta rting 01/09/2020 Phase I & II - metered glucose no information [place], [place] ([id number]) Comment: As Needed until discontinued starting 12/11/2019 As Needed until discontinued starting 01/09/2020 Potassium w/ Reflex to Potassium w/ Reflex to 01-09-2020 [place], [place] Magnesium Magnesium Lab Routine One ([id number] ) Time for 1 Occurrences starting 01/09/2020 until 01/09/2020 Comment: One Time for 1 Occurrences s tarting 01/09/2020 until 01/09/2020 , urine , urine Lab STAT One 01-09-2020 [place], [place] Time for 1 Occurrences starting ([id number]) 01/09/2020 until 01/09/2020 Comment: One Time for 1 Occurrences s tarting 01/09/2020 until 01/09/2020 Protime-INR Protime-INR Lab STAT One Time for 01-09-2020 [place], [place] ([address]) 1 Occurrences starting 01/09/2020 until 01/09/2020 Comment: One Time for 1 Occurrences s tarting 01/09/2020 until 01/09/2020 Pulse Oximetry Spot Pulse Oximetry Spot Check 12-11-2019 [place], [place] Check Respiratory Care Routine ([id number]) One Time for 1 Occurrences starting 12/11/2019 until 12/11/2019 Comment: One Time for 1 Occurrences s tarting 12/11/2019 until 12/11/2019 Tissue Homogenization Tissue Homogenization Lab 08-14-2019 [place] Routine Once for 1 Occurrences ( [address]17) starting 08/14/2019 until 08/14/2019 Comment: Once for 1 Occurrences start ing 08/14/2019 until 08/14/2019 Tissue Homogenization Tissue Homogenization Lab Routine [place] 08/14/2019 8:15 AM EST ([id number]) Immunizations Vaccine Notes Status Date Location Influenza Vaccine, Influenza Vaccine, (completed) 03-31-2016 - [facility], unspecified unspecified 03-31-2016 [place] ([address]) formulation formulation Influenza Virus influenza virus (completed) 03-28-2017 - [facility], Vaccine vaccine, unspecified 03-28-2017 [place] (452 37) formulation Tdap (Boostrix, tetanus toxoid, (completed) 06-12-2012 - [facility], Adacel) reduced diphtheria 06-12-2012 [place] ([address] ) toxoid, and acellular pertussis vaccine, adsorbed Payers Payer Name Policy Number Location [employer] xxxxxxxxx [place] ([id number]) [facility] [id number] [place] ([address]) [id number] ([id number]) The following information is from the original human readable contentNo Payer Records FoundNo Payer Records FoundNo Payer Records FoundNo Payer Records FoundNo Payer Records Found Social History Type Social History Date Location Description Tobacco smoking status Never smoker 09-27-2019 - [place] NHIS 01-07-2020 ([id number]) Alcohol intake Current non-drinker of 09-27-2019 - [place] alcohol (finding) 01-07-2020 ([address]61) Alcohol Comment occasional 06-14-2016 - [place], [place] 06-14-2016 ([id number]) Sex Assigned At [place] on [place] ([address]) Exposure to SARS-CoV-2 Unable to assess [place], [place] (event) ([address]) Tobacco use and Never used 01-07-2020 [place] exposure ([address]) Exposure to SARS-CoV-2 Not sure [place] (event) ([id number]) The following information is from the original human readable contentNo Social History Records FoundNo Social History Records FoundNo Social History Records FoundNo Social History Records FoundNo Social History Records FoundNo Social History Records FoundNo Social History Records Found Summary Purpose Family History No Family History Records FoundNo Family History Records FoundNo Family History Records FoundNo Family History Records Found Advance Directives No Advanced Directives Records Found Documents on File Type Date Recorded Patient 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 Social 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 Explanati on Advance Directives and Living Will Power of Vending Supervisor Latest Code Status on File Code Status Date Activated Date Inactivated Comments Full Code 09/27/2019 5:06 PM Full Code 09/27/2019 9:14 AM 09/27/2019 5:06 PM Full Code 08/14/2019 4:23 PM 08/28/2019 3:03 PM Full Code 08/14/2019 6:44 AM 08/14/2019 4:21 PM Full Code 06/17/2016 12:11 PM 06/18/2016 8:09 PM Latest Code Status on File Code Status Date Activated Date Inactivated Comments Full Code 08/14/2019 4:23 PM Full Code 06/17/2016 6:23 AM 06/17/2016 11:43 AM Latest Code Status on File Code Status Date Activated Date Inactivated Comments Full Code 09/27/2019 5:06 PM 09/28/2019 1:42 PM Latest Code Status on File Code Status Date Activated Date Inactivated Comments Full Code 11/15/2019 3:54 PM Full Code 11/15/2019 5:54 AM 11/15/2019 3:39 PM Full Code 11/15/2019 5:54 AM 11/15/2019 5:54 AM Full Code 09/27/2019 5:06 PM 09/28/2019 1:42 PM Latest Code Status on File Code Status Date Activated Date Inactivated Comments Full Code 12/11/2019 6:15 AM Full Code 11/15/2019 3:54 PM 11/18/2019 7:31 PM Latest Code Status on File Code Status Date Activated Date Inactivated Comments Full Code 01/09/2020 8:41 AM Full Code 12/11/2019 6:15 AM 12/11/2019 12:51 PM Discharge Instructions Michelle Salinas MD - 09/28/2019Take medications as prescribed Follow-up with Dr. Burnham this upcoming 09/30/19 documented in this encounterDischarge Instr - Mahnaz Carbajal RN - 08/28/2019 11:17 AM EDT Your physician has ordered skilled home care services for you. Your home care will be provided by: [facility]fusion and Nurse [phone] Additional InstructionsSamuel Hagen MD - 08/14/2019Please cleanse the flap area and pin sites twice daily as we have been doing in the hospital - applythe adaptec, kerlex wrap twice daily. Please continue to take photographs (ask family to help) and send these photographs to the following email address: [email or web address] The antibiotics will be required via IV - vancomycin infusion, which will be set up in the outpatient setting for you! Please call Dr. Burnham' office to establish a follow up appointment as well as call as needed for any problems or questions that may arise. General Orthopedic Discharge Instructions The following instructions have been prepared to help you when you leave the hospital. These guidelines are for the post-surgery period. Activity: Ease into normal activity as tolerated. Medications: see medication instructions. Please be sure to read and understand the information provided by your pharmacy. Ask your Pharmacist if any questions. Wound Care and Hygiene: -Leave your wound vacuum transitional nurse Your Doctor for: -Excessive bleeding/swelling of incision -Fever with temperature above 100 ?F Anesthesia Precautions: -Do Not operate any vehicle (automobile, bicycle, motorcycle) or power tools for 24 hours -Do Not drink alcoholic beverages for 24 hours -As precaution to prevent post-operative nausea and vomiting, start your diet with liquids, then progress to light foods. If tolerated, resume normal diet. POST OPERATIVE EXTERNAL FIXATOR PIN CARE 1. Remove your dressing 4 or 5 days after surgery?not before. 2. Cleanse pin sites daily with q-tips dipped in hydrogen peroxide (1/2 Hydrogen Peroxide and ? water). Use clean q-tip for each pin. Don?t worry not all crusting is removed the first time, but work toward completely cleaning the pins 3. Apply dry sterile dressing to pin sites?gauze 4x4 dressing can be purchased pre-cut or you may cut them. 4. You may then wrap the extremity if desired 5. Repeat daily. 6. Do not use any antibiotic ointment. 7. Elevate your extremity as much as possible. Keeping it higher than your heart. 8. Take your pain medications as needed. If you have an antibiotic take it until you finish your prescription. 9. Observe for signs of infections including increased fever (> 101 F), painful swelling, and persistent drainage (longer than 4-5 days). 10. Do not submerge your extremity in water. 11. Recheck in our office as scheduled. 12. You may shower after day 5 without a dressing and then do your wound care. If you have any questions or concerns feel free to call our office and ask for the nurse. Additional Instructions: Touch down weight bearing. Okay to rest leg on ground--do not have to hold it up--but do not put anyweight through leg until seen back in office Continue PT Blood clot prevention: aspirin Pain control with oxycodone Contact your surgeon's office (Dr. Davila), to set up an appointment in 2 weeks, or if you have any problems or questions. documented in this encounterInstructDot Quach RN - 11/12/2019 Please bring your [facility] Surgical Information folder on the day of surgery. Please darin the last dose taken (date and time ) on your Daily Medications List provided in your After Visit Summary. Please bring a photo ID and insurance information Do NOT take the following medications on the morning of surgery: NONE TAKE the following medications the morning of your surgery: Prozac You may take your prescription pain medications. You may take Tylenol (Acetaminophen) if needed for pain. No Motrin, Ibuprofen, or Advil 24 hours prior to surgery, or longer if instructed by your surgeon. No Aleve or Naprosyn 3 days prior to surgery, or longer if instructed by your surgeon. If you are on BLOOD THINNERS or ASPIRIN Additional instructions: NONE You will receive a reminder call the day before surgery with your Same Day Surgery arrival time. If you have specific questions, please call your surgeon. documented in this encounterDischarge Miriam - Mahnaz Carbajal, WOLF - 11/18/2019 12:45 PM EDT Your physician has ordered skilled home care services for you. Your home care will be provided by: [facility] [phone] Infusion Company: [facility] [phone] Additional InstructionsDaSteven andre MD - 11/15/2019General Orthopedic Discharge Instructions The following instructions have been prepared to help you when you leave the hospital. These guidelines are for the post-surgery period. Activity: Ease into normal activity as tolerated. Medications: see medication instructions. Please be sure to read and understand the information provided by your pharmacy. Ask your Pharmacist if any questions. Wound Care and Hygiene: -Wash hands before touching or changing dressings -Do Not touch incision -Leave dressing until post-op day 2 and reapply dressing if wound is draining. If wound is dry, you may leave dressing off -May shower starting post-op day 3 Call Your Doctor for: -Excessive bleeding/swelling of incision -Fever with temperature above 100? F Anesthesia Precautions: -Do Not operate any vehicle (automobile, bicycle, motorcycle) or power tools for 24 hours -Do Not drink alcoholic beverages for 24 hours -As precaution to prevent post-operative nausea and vomiting, start your diet with liquids, then progress to light foods. If tolerated, resume normal diet. Additional Instructions: Do NOT put any weight on LEFT leg Take [place] as needed for pain control Contact your surgeons' office (Dr. Davila and Dr. Burnham), to set up an appointment documented in this encounterMiesha Marlow PA-C - 12/11/2019Please keep the bandages clean, dry and intact until your follow up appointment. There is tegaderm, kerlix and kya over the donor site on the thigh. This may soak through the dressing in the next few days. If it does, you may reinforce the dressing by changing the kerlix and kya. On the lower leg where the graft is, this dressing should stay in place until your follow up appointment. You may ice and elevate for pain control. You may also take the prescribed [place] and ibuprofen for relief of pain and swelling after surgery. Make sure to take the pain medications with food, especially the ibuprofen Non weightbearing operative extremity. Please avoid shearing forces on the graft site on the lower leg documented in this encounterInstructionsSteven Ortega MD - 01/09/2020General Orthopedic Discharge Instructions The following instructions have been prepared to help you when you leave the hospital. These guidelines are for the post-surgery period. Activity: Ease into normal activity as tolerated. Medications: see medication instructions. Please be sure to read and understand the information provided by your pharmacy. Ask your Pharmacist if any questions. Splint Care: -Keep your splint clean and dry -Do not weight bear with your splint on unless specifically instructed by your surgeon -Do not unwrap splint, your surgeon will remove it on followup Call Your Doctor for: -Excessive bleeding/swelling of incision -Fever with temperature above 100 oF Anesthesia Precautions: -Do Not operate any vehicle (automobile, bicycle, motorcycle) or power tools for 24 hours -Do Not drink alcoholic beverages for 24 hours -As precaution to prevent post-operative nausea and vomiting, start your diet with liquids, then progress to light foods. If tolerated, resume normal diet. Additional Instructions: Non-weight bearing operative extremity Ice and elevate Call office with questions concerns Pain medication as prescribed documented in this encounter History of Present Illness Michelle Cabrera MD - 09/28/2019 7:54 AM EDT Plastic Surgery Progress Note PATIENT NAME: Denys Arriola TODAY'S DATE: 09/28/2019 SUBJECTIVE: No acute issues overnight OBJECTIVE: VITALS: BP 112/66 Pulse 99 Temp 98.9 ?F (37.2 ?C) (Temporal) Resp 15 Ht 5' 7 (1.702 m) Wt150 lb (68 kg) LMP 06/17/2016 SpO2 96% BMI 23.49 kg/m? INTAKE/OUTPUT: I/O last 3 completed shifts: In: 4020 [P.O.:1400; I.V.:2620] Out: 0 No intake/output data recorded. CONSTITUTIONAL: awake and alert EXTREMITIES: L leg wound vac with good seal and suction. Triphasic signal in flap. Flap pink, warm and with good perfusion. Palpable and signal found at DP. Left thigh STSG donor site dressings c/d/i ASSESSMENT AND PLAN: 33 y.o. female with LLE Wound Dehicence s/p flap re-elevation, anterior advancement. split thicknessskin graft 10x5cm, Application Wound Vac 10x5 cm -Gen diet -Pain control with [place] -Infectious disease consult re: Vancomycin IV that patient receives at home. Has been on 6 weeks of therapy for Osteomyelitis. Will discuss with ID whether patient needs further treatment -D/c home today with wound vac. Will f/u with Dr. Burnham this upcoming 09/30/19 and transition to incisional wound vac Patient seen and d/w Dr. Boris Cabrera MD PGY-7 Plastic & Reconstructive Surgery Fellow Pager #[phone] Gogo Alvarez RN - 09/27/2019 2:30 PM EDTPatient arrived in PACU sedated with oral airway documented in this encounterLorelei De Leon RN - 08/28/2019 12:36 PM EDT Discharge instructions complete, denies questions or concerns at this time. Patient educated on pin care and dressing changes, supplies provided. PICC line remains intact, dressing also C/D/I Petar Escalera MD - 08/28/2019 9:08 AM EDT Pin care completed. No erythema or drainage surrounding pin sites. Continue pin care daily w/ 50/50 NS/H2O2 or warm soapy water. Flap covered with adaptic and kerlix roll Patient instructed on pin careinstructions and verbalized understanding. Patient will follow up in office on discharge. Discharge i nstructions and follow up information provided. Please page [phone] or on-call resident w/ questions or concerns. Petar Nuno MD PGY-2, Orthopaedic Surgery [phone] 08/28/2019 .9:10 AM Lorelei De Leon RN - 08/28/2019 8:45 AM EDTDilaudid given early per Dr. Nuno for dressing change Stephen Young RN - 08/27/2019 4:11 PM EDTPt tolerated dangling protocol well at 1500. Dangled LLE for 15 minutes. Flap coloration remained appropriate and pulses remained strong. Victor Manuel Melo DO - 08/27/2019 8:31 AM EDT [facility] - Infectious Diseases Attending Progress Note Subjective: Following for infected non union s/p hardware removal Reviewed available chart/notes/records/microbiological data and imaging. Patient now s/p ALT free flap from right thigh to LLE on 08-17-2019. She was in OR 08-23-2019 for placement of external fixator and defatting and inset of flap. CoPATupdated 08-26-2019. Vancomycin level still low will increase to 1.5g. Objective: Vitals: BP 108/71 Pulse 84 Temp 98.7 ?F (37.1 ?C) (Temporal) Resp 14 Ht 5' 7 (1.702 m) Wt150 lb (68 kg) LMP 06/17/2016 SpO2 99% BMI 23.49 kg/m? Intake/Output Summary (Last 24 hours) at 08/27/2019 0832 Last data filed at 08/27/2019 0342 Gross per 24 hour Intake 450 ml Output 1450 ml Net -1000 ml Physical Exam Vitals signs and nursing note reviewed. Constitutional: General: She is not in acute distress. Appearance: Normal appearance. She is normal weight. She is not ill-appearing, toxic-appearing or diaphoretic. HENT: Head: Normocephalic and atraumatic. Right Ear: External ear normal. Left Ear: External ear normal. Nose: Nose normal. No congestion or rhinorrhea. Eyes: General: No scleral icterus. Right eye: No discharge. Left eye: No discharge. Conjunctiva/sclera: Conjunctivae normal. Neck: Musculoskeletal: Normal range of motion and neck supple. No muscular tenderness. Cardiovascular: Rate and Rhythm: Regular rhythm. Tachycardia present. Heart sounds: No murmur. Pulmonary: Effort: Pulmonary effort is normal. No respiratory distress. Breath sounds: Normal breath sounds. Abdominal: General: Abdomen is flat. Bowel sounds are normal. There is no distension. Palpations: Abdomen is soft. There is no mass. Musculoskeletal: Normal range of motion. General: Swelling and deformity (External fixator on) present. No signs of injury. Right lower leg: No edema. Left lower leg: Edema present. Comments: LLE post-op Skin: General: Skin is warm and dry. Coloration: Skin is not jaundiced. Findings: No bruising, erythema or rash. Neurological: Mental Status: She is alert and oriented to person, place, and time. Mental status is at baseline. Psychiatric: Mood and Affect: Mood normal. Behavior: Behavior normal. Thought Content: Thought content normal. Judgment: Judgment normal. Labs: Component Value Date/Time NA 134 (L) 08/27/2019 014 K 4.0 08/27/2019144 CL 99 08/27/2019 014 CO2 29 08/27/2019144 BUN 15 08/27/2019144 CREATININE 0.70 08/27/2019 014 GLUCOSE 92 08/27/2019 014 CALCIUM 9.1 08/27/2019 014 PROT 7.3 05/14/2018 0840 LABALBU 3.5 08/17/2019 1830 BILITOT 0.7 05/14/2018 0840 ALKPHOS 95 05/14/2018 0840 AST 35 05/14/2018 0840 ALT 48 05/14/2018 0840 Component Value Date/Time WBC 10.4 08/27/2019 014 WBC 7.3 09/01/2015 1414 HGB 8.5 (L) 08/27/2019 014 HCT 24.2 (L) 08/27/2019 014 PLT 327 08/27/2019 014 GRANULOCYTES 70.6 08/27/2019 014 LYMPHOPCT 18.7 (L) 08/27/2019144 MONOPCT 6.9 08/27/2019 014 MONOPCT 6.0% 09/01/2015 1414 LABEOS 3.1 08/27/2019144 BASOPCT 0.7 08/27/2019 014 BASOPCT 0.5% 09/01/2015 1414 NEUTROABS 7.3 (H) 08/27/2019 014 NEUTROABS 5.1 09/01/2015 1414 Ref Range & Units 08/26/19 2134 Vancomycin Tr 15.0 - 20.0 ug/mL 12.4Low Micro: 3/4 OR cultures: Corynebacterium striatum vanc 0.50 Culture, Tissue [[id number]] (Abnormal) Collected: 08/14/19 0815 Order Status: Completed Specimen: Tissue Updated: 08/17/19 1132 Gram Stain Result Few polymorphonuclear cells/lpf. No organisms seen. Tissue Cult/Smear, Aer Corynebacterium striatumAbnormal Tissue Cult/Smear, Aer -- Few Lines: PICC 43 cm L basilic vein Radiography/Echo/Other: 08-15-2019 Arterial runoff within left lower extremity is delineated on the CT angiographic images. Evidence of fractures within the left distal tibia and fibula with surgical change and disuse osteoporosis 08/14 CXR no acute findings 08/13 EKG QTc 406 Antimicrobials, Start/End Dates: Vancomycin Impression: 1. 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 H/O L ankle fracture 03/2019 secondary to ice skating Plan: 1. Continue vancomycin 2. Increase from 1.25g to 1.5, consistently low at about 12-13. 3. CoPAT updated 4. Anticipate discharge soon 5. Follow-up in office Will sign-off please call with questions Pager: [phone] Annabel Hernandez, MS, RD, LD - 08/26/2019 2:13 PM EDT Nutrition Assessment Type and Reason for Visit: Reassess Nutrition Recommendations: 1. Continue with General diet 2. Per MNT will provide Ensure Enlive (350 marleni/20 grams protein) at 8pm to aid in wound healing 3. Recommend document % meals consumed in nursing flow sheets 4. RD continue to monitor overall nutritional status and follow up weekly Nutrition Assessment: POD #3 s/p defatting and inset of ALT flap (donor site R thigh) to L medial malleolus region on 3, wound vac in place and plan to be discontinued in the AM. Patient currently on General diet and tolerating well. Patient previously on Ensure supplements however discontinued. Malnutrition Assessment: ? Malnutrition Status: At risk for malnutrition Nutrition Risk Level: High Nutrient Needs: ? Estimated Daily Total Kcal: 9136-0954 ? Estimated Daily Protein (g): 95-102 ? Estimated Daily Total Fluid (ml/day): 2040-2380ml or per MD Nutrition Diagnosis: ? Problem: Increased nutrient needs(protein) ? Etiology: related to Increased demand for energy/nutrients ? Signs and symptoms: as evidenced by Presence of wounds Objective Information: ? Nutrition-Focused Physical Findings: hypoactive bowel sounds; - I&O; Stef 17; +2 BLE edema ? Wound Type: Multiple, Surgical Wound ? Current Nutrition Therapies: ? Oral Diet Orders: General ? Oral Diet intake: Unable to assess ? Oral Nutrition Supplement (ONS) Orders: None ? ONS intake: (none currently ordered) ? Anthropometric Measures: ? Ht: 5' 7 (170.2 cm) ? Admission Body Wt: 150 lb (68 kg)(stated) ? Usual Body Wt: 146 lb (66.2 kg) ? [place] Body Wt: 135 lb (61.2 kg), % [place] Body 111% ? BMI Classification: BMI 18.5 - 24.9 Normal Weight Nutrition Interventions: Continue current diet Continued Inpatient Monitoring Nutrition Evaluation: ? Evaluation: Progressing toward goals ? Goals: Pt will consume ONS and >80% estimated protein needs daily ? Monitoring: Meal Intake, Diet Tolerance, Skin Integrity, Wound Healing, I&O, Pertinent Labs, Monitor Bowel Function Contact Number: pager [phone] Jesse Burnham MD - 08/26/2019 9:21 AM EDT Department of Surgery - Plastic Surgery Progress Note PATIENT NAME: Denys Arriola : 1985 ATTENDING PHYSICIAN: Jesse Burnham MD ADMIT DATE: 08/14/2019 TODAY'S DATE: 08/26/2019 SUBJECTIVE Patient doing ok. Pain controlled, medication helping. NAEON. OBJECTIVE VITALS: BP (!) 104/58 Pulse 91 Temp 98.4 ?F (36.9 ?C) (Temporal) Resp 18 Ht 5' 7 (1.702 m) Wt 150 lb (68 kg) LMP 06/17/2016 SpO2 97% BMI 23.49 kg/m? PHYSICAL EXAM: CONSTITUTIONAL: NAD, A&O X3. EYES: No scleral icterus CHEST: Resp effort easy and unlabored ABDOMEN: soft, non-distended, non-tender, Peritoneal signs absent EXTREMITIES: LLE with darrell spatial frame in place. Flap with sutures and renaldo partially removedand triphasic arterial signal appreciated. Vioptix 76%, remove today. Minor drainage from LLE wound vac, pravena. SKIN: Warm and dry INTAKE/OUTPUT: Date 08/26/19 0000 - 08/26/19 [address] 0829-3333 2303-9642 [id number] 24 Hour Total INTAKE P.O.(mL/kg/hr) 500(0.9) 500 I.V.(mL/kg) 275(4) 275(4) Shift Total(mL/kg) 775(11.4) 775(11.4) OUTPUT Urine(mL/kg/hr) 450(0.8) 450 Drains(mL/kg) 0(0) 0(0) Shift Total(mL/kg) 450(6.6) 450(6.6) Weight (kg) 68 68 68 68 I/O last 3 completed shifts: In: 1525 [P.O.:500; I.V.:275; IV Piggyback:750] Out: 2049 [Urine:2049] No intake/output data recorded. Data Recent Labs 08/24/19 0324 08/25/19 0419 08/26/19 0124 WBC 13.0* 8.4 10.4 HGB 8.9* 7.8* 8.3* HCT 25.8* 22.9* 24.5* PLT 327 287 311 Recent Labs 08/24/19 0324 08/25/19 0419 08/26/19 0124 NA 132* 134* 134* K 4.5 3.7 4.0 CL 99 101 100 CO2 27 28 29 BUN 16 22* 15 CREATININE 0.64 0.75 0.66 GLUCOSE 115* 92 91 No results for input(s): AST, ALT, ALB, BILITOT, ALKPHOS in the last 72 hours. Current Inpatient Medications Current Facility-Administered Medications: aspirin EC tablet 81 mg, 81 mg, Oral, Daily HYDROmorphone (DILAUDID) injection 0.5 mg, 0.5 mg, Intravenous, Q4H PRN OR [DISCONTINUED] HYDROmorphone (DILAUDID) injection 1 mg, 1 mg, Intravenous, Q3H PRN ketorolac (TORADOL) injection 30 mg, 30 mg, Intravenous, Q6H docusate sodium (COLACE) capsule 100 mg, 100 mg, Oral, TID senna (SENOKOT) tablet 8.6 mg, 1 tablet, Oral, BID polyethylene glycol (GLYCOLAX) packet 17 g, 17 g, Oral, Daily HYDROcodone-acetaminophen (NORCO) 5-325 MG per tablet 1 tablet, 1 tablet, Oral, Q4H PRN OR HYDROcodone-acetaminophen (NORCO) 5-325 MG per tablet 2 tablet, 2 tablet, Oral, Q4H PRN FLUoxetine (PROZAC) capsule 20 mg, 20 mg, Oral, Daily enoxaparin (LOVENOX) injection 40 mg, 40 mg, Subcutaneous, Daily vancomycin (VANCOCIN) 1,250 mg in dextrose 5 % 250 mL IVPB, 1,250 mg, Intravenous, Q12H ipratropium-albuterol (DUONEB) nebulizer solution 1 ampule, 1 ampule, Inhalation, Q4H PRN iopamidol (ISOVUE-370) 76 % injection 100 mL, 100 mL, Intravenous, ONCE PRN sodium chloride flush 0.9 % injection 10 mL, 10 mL, Intravenous, 2 times per day sodium chloride flush 0.9 % injection 10 mL, 10 mL, Intravenous, 2 times per day sodium chloride flush 0.9 % injection 10 mL, 10 mL, Intravenous, PRN heparin flush 100 UNIT/ML injection 250 Units, 250 Units, Intravenous, 2 times per day heparin flush 100 UNIT/ML injection 250 Units, 250 Units, Intravenous, PRN sodium chloride flush 0.9 % injection 10 mL, 10 mL, Intracatheter, Q12H heparin flush 100 UNIT/ML injection 250 Units, 250 Units, Intravenous, Q12H sodium chloride flush 0.9 % injection 10 mL, 10 mL, Intracatheter, PRN heparin flush 100 UNIT/ML injection 250 Units, 250 Units, Intracatheter, PRN sodium chloride flush 0.9 % injection 10 mL, 10 mL, Intravenous, 2 times per day sodium chloride flush 0.9 % injection 10 mL, 10 mL, Intravenous, PRN [DISCONTINUED] promethazine (PHENERGAN) tablet 12.5 mg, 12.5 mg, Oral, Q6H PRN OR ondansetron (ZOFRAN) injection 4 mg, 4 mg, Intravenous, Q6H PRN ASSESSMENT AND PLAN 33 y.o. female status post s/p defatting and inset of ALT flap (donor site R thigh) to L medial malleolus region on 08/22 -Increase dangle protocol to 10 min TID today. Stop dangle if flap loses signal, vioptix decreases by more than 20% or color changes to blue/purple -Remove Vioptix at bedside. -Q4h flapchecks with doppler at bedside -BID and PRN dressing change to LLE flap site -CTM Hgb, stable 8.3 (7.8) (8.9) -ASA 81 and lovenox -Vanc on board, await ID recs for ongoing. -Home meds as ordered -Bowel regimen as ordered -CBC and BMP qday -Warming blanket -OK for bedside commode with assist -Discussed with fellow who will discuss with Dr. Burnham -2 Department of General Surgery Personal Pager #[phone] Attending note inpendently seen and evaluated Flap viable tolerated 5 min TID dangle and 10 min Dangle this AM, will move to 20 min angle TID tomorrow if tolerated will dc in evening vioptix discontinued Ok to dc bare warmer BID dressing changes adaptic gauze and kerlix, Will allow flap swelling to decrease, Will dc provena to right thigh in AM Riya Meloony K - 08/26/2019 8:55 AM EDT [facility] - Infectious Diseases Attending Progress Note Subjective: Following for infected non union s/p hardware removal Reviewed available chart/notes/records/microbiological data and imaging. Patient now s/p ALT free flap from right thigh to LLE on 08-17-2019. She was in OR 08-23-2019 for placement of external fixator and defatting and inset of flap. Objective: Vitals: BP (!) 104/58 Pulse 91 Temp 98.4 ?F (36.9 ?C) (Temporal) Resp 18 Ht 5' 7 (1.702 m) Wt 150 lb (68 kg) LMP 06/17/2016 SpO2 97% BMI 23.49 kg/m? Intake/Output Summary (Last 24 hours) at 08/26/2019 0856 Last data filed at 08/26/2019 0441 Gross per 24 hour Intake 1525 ml Output 2050 ml Net -525 ml Physical Exam Vitals signs and nursing note reviewed. Constitutional: General: She is not in acute distress. Appearance: Normal appearance. She is normal weight. She is not ill-appearing, toxic-appearing or diaphoretic. HENT: Head: Normocephalic and atraumatic. Right Ear: External ear normal. Left Ear: External ear normal. Nose: Nose normal. No congestion or rhinorrhea. Eyes: General: No scleral icterus. Right eye: No discharge. Left eye: No discharge. Conjunctiva/sclera: Conjunctivae normal. Neck: Musculoskeletal: Normal range of motion and neck supple. No muscular tenderness. Cardiovascular: Rate and Rhythm: Regular rhythm. Tachycardia present. Heart sounds: No murmur. Pulmonary: Effort: Pulmonary effort is normal. No respiratory distress. Breath sounds: Normal breath sounds. Abdominal: General: Abdomen is flat. Bowel sounds are normal. There is no distension. Palpations: Abdomen is soft. There is no mass. Musculoskeletal: Normal range of motion. General: Swelling and deformity (External fixator on) present. No signs of injury. Right lower leg: No edema. Left lower leg: Edema present. Comments: LLE post-op Skin: General: Skin is warm and dry. Coloration: Skin is not jaundiced. Findings: No bruising, erythema or rash. Neurological: Mental Status: She is alert and oriented to person, place, and time. Mental status is at baseline. Psychiatric: Mood and Affect: Mood normal. Behavior: Behavior normal. Thought Content: Thought content normal. Judgment: Judgment normal. Labs: Component Value Date/Time NA 134 (L) 08/26/2019 0124 K 4.0 08/26/2019 0124 CL 100 08/26/2019 0124 CO2 29 08/26/2019 0124 BUN 15 08/26/2019 0124 CREATININE 0.66 08/26/2019 0124 GLUCOSE 91 08/26/2019 0124 CALCIUM 9.1 08/26/2019 0124 PROT 7.3 05/14/2018 0840 LABALBU 3.5 08/17/2019 1830 BILITOT 0.7 05/14/2018 0840 ALKPHOS 95 05/14/2018 0840 AST 35 05/14/2018 0840 ALT 48 05/14/2018 0840 Component Value Date/Time WBC 10.4 08/26/2019 0124 WBC 7.3 09/01/2015 1414 HGB 8.3 (L) 08/26/2019 0124 HCT 24.5 (L) 08/26/2019 0124 PLT 311 08/26/2019 0124 GRANULOCYTES 70.6 08/26/2019 0124 LYMPHOPCT 19.3 (L) 08/26/2019 0124 MONOPCT 6.1 08/26/2019 0124 MONOPCT 6.0% 09/01/2015 1414 LABEOS 3.4 08/26/2019 0124 BASOPCT 0.6 08/26/2019 0124 BASOPCT 0.5% 09/01/2015 1414 NEUTROABS 7.4 (H) 08/26/2019 0124 NEUTROABS 5.1 09/01/2015 1414 Vancomycin trough - 11.6 Ref Range & Units 08/22/19 0900 Vancomycin Tr 15.0 - 20.0 ug/mL 13.4Low Comment: . Micro: 3/4 OR cultures: Corynebacterium striatum vanc 0.50 Culture, Tissue [[id number]] (Abnormal) Collected: 08/14/19 0815 Order Status: Completed Specimen: Tissue Updated: 08/17/19 1132 Gram Stain Result Few polymorphonuclear cells/lpf. No organisms seen. Tissue Cult/Smear, Aer Corynebacterium striatumAbnormal Tissue Cult/Smear, Aer -- Few Lines: PICC 43 cm L basilic vein Radiography/Echo/Other: 08-15-2019 Arterial runoff within left lower extremity is delineated on the CT angiographic images. Evidence of fractures within the left distal tibia and fibula with surgical change and disuse osteoporosis 08/14 CXR no acute findings 08/13 EKG QTc 406 Antimicrobials, Start/End Dates: Vancomycin Impression: 1. 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 H/O L ankle fracture 03/2019 secondary to ice skating Plan: 1. Continue vancomycin 2. CoPAT updated 3. Disposition in progress 4. Check level in morning Pager: [phone] Petar gross MD - 08/26/2019 3:40 AM EDT [place] [address] [facility] SUR[facility] [address] [place] [address] Dept: [phone] Loc: [phone] Adult Orthopaedic Service Patient Name: Denys Arriola Date of : 1985 Date: 08/26/19 Subjective: Patient resting comfortably, no new complaints. Pain controlled. No paresthesias. AFVSS. Medications: ? aspirin 81 mg Oral Daily ? ketorolac 30 mg Intravenous Q6H ? docusate sodium 100 mg Oral TID ? senna 1 tablet Oral BID ? polyethylene glycol 17 g Oral Daily ? FLUoxetine 20 mg Oral Daily ? enoxaparin 40 mg Subcutaneous Daily ? vancomycin 1,250 mg Intravenous Q12H ? sodium chloride flush 10 mL Intravenous 2 times per day ? sodium chloride flush 10 mL Intravenous 2 times per day ? heparin flush 250 Units Intravenous 2 times per day ? sodium chloride flush 10 mL Intracatheter Q12H ? heparin flush 250 Units Intravenous Q12H ? sodium chloride flush 10 mL Intravenous 2 times per day Physical Exam: Vitals: 08/26/19 0112 BP: 123/69 Pulse: 87 Resp: 18 Temp: 97.7 ?F (36.5 ?C) SpO2: 97% Intake and Output Summary (Last 24 hours) at Date Time Intake/Output Summary (Last 24 hours) at 08/26/2019 0340 Last data filed at 08/25/2019 1928 Gross per 24 hour Intake 1315 ml Output 2100 ml Net -[address] on right thigh for ALT flap harvest site LLE: -TSF with alex hugger over top -Dressing to LLE C/D/I -SILT in toes -+ toe wiggle -BCR in toes Labs: CBC with Differential: Lab Results Component Value Date WBC 10.4 08/26/2019 WBC 7.3 09/01/2015 RBC 2.73 08/26/2019 HGB 8.3 08/26/2019 HCT 24.5 08/26/2019 PLT 311 08/26/2019 MCV 89.8 08/26/2019 MCH 30.3 08/26/2019 MCHC 33.8 08/26/2019 RDW 14.1 08/26/2019 SEGSPCT 69.6% 09/01/2015 LYMPHOPCT 19.3 08/26/2019 MONOPCT 6.1 08/26/2019 MONOPCT 6.0% 09/01/2015 BASOPCT 0.6 08/26/2019 BASOPCT 0.5% 09/01/2015 MONOSABS 0.6 08/26/2019 MONOSABS 0.4 09/01/2015 LYMPHSABS 2.0 08/26/2019 LYMPHSABS 1.6 09/01/2015 EOSABS 0.4 08/26/2019 EOSABS 0.1 09/01/2015 BASOSABS 0.1 08/26/2019 BASOSABS <0.1 09/01/2015 Intra-operative cultures: corynebacterium striatum Gram stain: few molymorphonuclear cells/lpf, no organisms Assessment: 33 y.o. female s/p of I&D LLE with removal of hardware and ALT flap then TSF with ABX spacer 08/22 Plan: -No further orthopaedic intervention this admission -Abx per ID -DVT PPx per primary team -Flap Care per Plastics -Prevena to right thigh management per plastics -PT/OT -NWB LLE -OK to remove sponges and start pin care POD#5 (08/27) -Pain control and medical management per plastic surgery -Ortho following peripherally while in house. Please page [phone] or on-call resident w/ questions or concerns Petar Nuno MD PGY-2, Orthopaedic Surgery [phone] 08/26/2019 .6:16 AM Carolyn Pablo RN - 08/25/2019 10:00 PM EDTPatient dangled LLE for 5 minutes. No abnormal color. Flap maintained signal and vioptix stayed within 20% margin per plastics parameters. Before dangling vioptix was at 77% and dropped to 58% while dangling. Patient tolerated well. Meli Sanchez RN - 08/25/2019 3:[address] Cabrera with plastic surgery regarding leaking from patient's wound vac site. Pt was concerned about the leaking. However, it is just a small spot on the corner of the tegaderm that is leaking. Dr. Cabrera was not concerned and said to tell pt that it is totally normal and we can reinforce thedressing if necessary. Pt does not have leaking if she is not actively moving to dangle or get up toBSC. Jesse Schneider MD - 08/25/2019 8:44 AM EDT PRS Progress Note Interval events: tolerated 5 minute dangle this AM Pain controlled Overall doing well O: Vitals: 08/25/19 0528 BP: 120/73 Pulse: 96 Resp: 18 Temp: 98.6 ?F (37 ?C) SpO2: 98% LLE ALT flap to medial malleolus region soft, pink, warm, cap refill 2 sec. Triphasic arterial signal. Vioptix 75% (56% after dangle). Ex fix in place R thigh donor site: Provena wound vac placed A/P 34F POD 2 s/p defatting and inset of ALT flap (donor site R thigh) to L medial malleolus region -Reg diet. 500 mL NS bolus given decreased UOP -Q4H flap checks. Vioptix through Monday. Call MD aviation technician if Vioptix <46%, flap turns dusky or purple or there is loss of arterial signal. -BID and PRN dressing change to LLE flap site. [employer] on incisions, 4x4 gauze, wrap with kerlix gauze -OK for up with assistance to bedside commode but NWB to LLE -Pain control -H/o osteoarthritis. Continue Vancomycin. WBC 8 from 13K -Dangle protocol started today, 08/25/2019. 5 minutes TID. Stop dangle if flap loses signal, vioptix decreases by more than 20% or color changes to blue/purple -Hgb 7.8 from 8.9. Monitor. F/u AM CBC -ASA 81 mg daily, Lovenox Patient seen and d/w Dr. Boris Cabrera MD PGY-7 Plastic & Reconstructive Surgery Fellow Pager #[phone] Attending note: Seen examined and evaluated with PRS fellow tolerated Dangle 5min TID today, 10min TID Monday, 20 min TID Monday Okay to dc Vioptix in AM Qshift dressing changes, adaptic gauze and loose kerlix, Flap swelling improving R thigh Provena until 08/30 Has been connected to homegoing device WB status LLE as per ortho Ok for bedside commode with assist Plan for DC on Monday, May need homegoing dressing supplies if is able to do dressings Jesse Burnham Strict I&O Hgb drifting down, BUN rising will give 500 cc NS bolus Plan for DC on Monday Stephen Lewis MD - 08/25/2019 6:31 AM EDT [facility] MED SURG [address] [id number] Dept: [phone] Loc: [phone] Adult Orthopaedic Service Patient Name: Denys Arriola Date of : 1985 Date: 08/25/19 Subjective: Patient resting comfortably, no new complaints. Medications: ? ketorolac 30 mg Intravenous Q6H ? docusate sodium 100 mg Oral TID ? senna 1 tablet Oral BID ? polyethylene glycol 17 g Oral Daily ? FLUoxetine 20 mg Oral Daily ? enoxaparin 40 mg Subcutaneous Daily ? vancomycin 1,250 mg Intravenous Q12H ? aspirin 325 mg Oral Daily ? sodium chloride flush 10 mL Intravenous 2 times per day ? sodium chloride flush 10 mL Intravenous 2 times per day ? heparin flush 250 Units Intravenous 2 times per day ? sodium chloride flush 10 mL Intracatheter Q12H ? heparin flush 250 Units Intravenous Q12H ? sodium chloride flush 10 mL Intravenous 2 times per day Physical Exam: Vitals: 08/25/19 0528 BP: 120/73 Pulse: 96 Resp: 18 Temp: 98.6 ?F (37 ?C) SpO2: 98% Intake and Output Summary (Last 24 hours) at Date Time Intake/Output Summary (Last 24 hours) at 08/25/2019 0631 Last data filed at 08/25/2019 0542 Gross per 24 hour Intake 815 ml Output 500 ml Net [address] on right thigh for ALT flap harvest site LLE: -TSF with alex hugger over top -SILT in toes -+ toe wiggle -BCR in toes Labs: CBC with Differential: Lab Results Component Value Date WBC 8.4 08/25/2019 WBC 7.3 09/01/2015 RBC 2.53 08/25/2019 HGB 7.8 08/25/2019 HCT 22.9 08/25/2019 PLT 287 08/25/2019 MCV 90.5 08/25/2019 MCH 30.9 08/25/2019 MCHC 34.2 08/25/2019 RDW 14.0 08/25/2019 SEGSPCT 69.6% 09/01/2015 LYMPHOPCT 25.1 08/25/2019 MONOPCT 7.0 08/25/2019 MONOPCT 6.0% 09/01/2015 BASOPCT 0.9 08/25/2019 BASOPCT 0.5% 09/01/2015 MONOSABS 0.6 08/25/2019 MONOSABS 0.4 09/01/2015 LYMPHSABS 2.1 08/25/2019 LYMPHSABS 1.6 09/01/2015 EOSABS 0.1 08/25/2019 EOSABS 0.1 09/01/2015 BASOSABS 0.1 08/25/2019 BASOSABS <0.1 09/01/2015 Intra-operative cultures: corynebacterium striatum Gram stain: few molymorphonuclear cells/lpf, no organisms Assessment: 33 y.o. female s/p of I&D LLE with removal of hardware and ALT flap then TSF with ABX spacer 08/22 Plan: -No further orthopaedic intervention this admission -Abx per ID -DVT PPx per primary team -Flap Care per Plastics -Prevena to right thigh management per plastics -PT/OT -NWB LLE -OK to remove sponges and start pin care POD#5 (08/27) -Pain control and medical management per plastic surgery -Ortho following peripherally while in house Jesse Schneider MD - 08/24/2019 10:52 AM EDT Flap check Interval events: some sutures removed at bedside last night by dr. Burnham after loss of signal O: Vitals: 08/24/19 1000 BP: 131/78 Pulse: 107 Resp: 13 Temp: SpO2: 100% LLE ALT flap to medial malleolus region soft, pink, warm, cap refill 2 sec. Triphasic arterial signal. Vioptix 77%. Ex fix in place A/P 34F POD 1 s/p defatting and inset of ALT flap (donor site R thigh) to L medial malleolus region -Reg diet. HLIV. -Q4H flap checks. Vioptix. Call MD aviation technician if Vioptix <58%, flap turns dusky or purple or there is loss of arterial signal. -OK for up with assistance to bedside commode -Pain control -H/o osteoarthritis. Continue Vancomycin -ASA, Lovenox -TTF -Will start dangle protocol tomorrow Michelle Cabrera MD PGY-7 Plastic & Reconstructive Surgery Fellow Pager #[phone] Attending note: Seen and independently evaluated NWB Ok for commode with assist Transfer to floor Q4 flap checks Daily dressing changes with adaptic gauze and kerlix Vioptix thru Monday Will start dangle tomorrow 5 min TID Am CBC Reg diet Jesse Burnham tephen Lewis MD - 08/24/2019 7:35 AM EDT [facility] ICU T2 [address] [place] [address] Dept: [phone] Loc: [phone] Adult Orthopaedic Service Patient Name: Denys Arriola Date of : 1985 Date: 08/24/19 Subjective: Patient resting comfortably, no new complaints. Medications: ? acetaminophen 650 mg Oral 3 times per day ? docusate sodium 100 mg Oral TID ? senna 1 tablet Oral BID ? polyethylene glycol 17 g Oral Daily ? FLUoxetine 20 mg Oral Daily ? enoxaparin 40 mg Subcutaneous Daily ? vancomycin 1,250 mg Intravenous Q12H ? aspirin 325 mg Oral Daily ? sodium chloride flush 10 mL Intravenous 2 times per day ? sodium chloride flush 10 mL Intravenous 2 times per day ? heparin flush 250 Units Intravenous 2 times per day ? sodium chloride flush 10 mL Intracatheter Q12H ? heparin flush 250 Units Intravenous Q12H ? sodium chloride flush 10 mL Intravenous 2 times per day Physical Exam: Vitals: 08/24/19 0700 BP: 121/68 Pulse: 99 Resp: 11 Temp: SpO2: 98% Intake and Output Summary (Last 24 hours) at Date Time Intake/Output Summary (Last 24 hours) at 08/24/2019 0735 Last data filed at 08/24/2019 0600 Gross per 24 hour Intake 1562 ml Output 1000 ml Net 562 ml LLE: -TSF with alex hugger over top -SILT in toes -+ toe wiggle -BCR in toes Labs: CBC with Differential: Lab Results Component Value Date WBC 13.0 08/24/2019 WBC 7.3 09/01/2015 RBC 2.90 08/24/2019 HGB 8.9 08/24/2019 HCT 25.8 08/24/2019 PLT 327 08/24/2019 MCV 89.2 08/24/2019 MCH 30.8 08/24/2019 MCHC 34.5 08/24/2019 RDW 13.5 08/24/2019 SEGSPCT 69.6% 09/01/2015 LYMPHOPCT 4.6 08/24/2019 MONOPCT 2.5 08/24/2019 MONOPCT 6.0% 09/01/2015 BASOPCT 0.1 08/24/2019 BASOPCT 0.5% 09/01/2015 MONOSABS 0.3 08/24/2019 MONOSABS 0.4 09/01/2015 LYMPHSABS 0.6 08/24/2019 LYMPHSABS 1.6 09/01/2015 EOSABS 0.0 08/24/2019 EOSABS 0.1 09/01/2015 BASOSABS 0.0 08/24/2019 BASOSABS <0.1 09/01/2015 Intra-operative cultures: corynebacterium striatum Gram stain: few molymorphonuclear cells/lpf, no organisms Assessment: 33 y.o. female s/p of I&D LLE with removal of hardware and ALT flap then TSF with ABX spacer 08/22 Plan: -No further orthopaedic intervention this admission -Abx per ID -DVT PPx per primary team -Flap Care per Plastics -PT/OT -NWB LLE -OK to remove sponges and start pin care POD#5 (08/27) -Pain control and medical management per plastic surgery -Ortho following Everton Ugalde MD - 08/24/2019 3:49 AM EDT Daily Trauma Progress Note Resident 08/24/2019 3:50 AM Admit Date: 08/14/2019 MEDICATIONS: Current Facility-Administered Medications Medication Dose Route Frequency Provider Last Rate Last Dose ? xeroform petrolat gauze 1X8 external pads Carrington Stephens MD ? xeroform petrolat gauze 1X8 external pads Carrington Stephens MD ? lactated ringers infusion Intravenous Continuous Pepe Verde MD 125 mL/hr at 08/23/191958 ? acetaminophen (TYLENOL) tablet 650 mg 650 mg Oral 3 times per day Everton Cha MD 650 mgat 08/23/192002 ? HYDROmorphone (DILAUDID) injection 0.5 mg 0.5 mg Intravenous Q3H PRN Erendira Fernandez MD Or ? HYDROmorphone (DILAUDID) injection 1 mg 1 mg Intravenous Q3H PRN Erendira Fernandez MD 1 mg at 08/24/196 ? docusate sodium (COLACE) capsule 100 mg 100 mg Oral TID Carrington Stephens MD 100 mg at 08/23/192002 ? senna (SENOKOT) tablet 8.6 mg 1 tablet Oral BID Carrington Stephens MD 8.6 mg at 08/23/192002 ? polyethylene glycol (GLYCOLAX) packet 17 g 17 g Oral Daily Carrington Stephens MD 17 g at 08/20/19 1349 ? HYDROcodone-acetaminophen (NORCO) 5-325 MG per tablet 1 tablet 1 tablet Oral Q4H PRN Carrington Stephens MD 1 tablet at 08/23/19 1009 Or ? HYDROcodone-acetaminophen (NORCO) 5-325 MG per tablet 2 tablet 2 tablet Oral Q4H PRN Carrington Stephens MD 2 tablet at 08/23/19 0518 ? FLUoxetine (PROZAC) capsule 20 mg 20 mg Oral Daily Carrington Stephens MD 20 mg at 08/22/19 0852 ? enoxaparin (LOVENOX) injection 40 mg 40 mg Subcutaneous Daily Carrington Stephens MD 40 mg at 08/23/19 1010 ? vancomycin (VANCOCIN) 1,250 mg in dextrose 5 % 250 mL IVPB 1,250 mg Intravenous Q12H Carrington Stephens MD 125 mL/hr at 08/23/19 2210 1,250 mg at 08/23/19 2210 ? aspirin EC tablet 325 mg 325 mg Oral Daily Carrington Stephens MD 325 mg at 08/22/19 0852 ? ipratropium-albuterol (DUONEB) nebulizer solution 1 ampule 1 ampule Inhalation Q4H PRN Carrington Stephens MD ? iopamidol (ISOVUE-370) 76 % injection 100 mL 100 mL Intravenous ONCE PRN Carrington Stephens MD ? sodium chloride flush 0.9 % injection 10 mL 10 mL Intravenous 2 times per day Carrington Stephens MD 10mL at 08/23/192003 ? sodium chloride flush 0.9 % injection 10 mL 10 mL Intravenous 2 times per day Carrington Stephens MD 10mL at 08/23/19 1104 ? sodium chloride flush 0.9 % injection 10 mL 10 mL Intravenous PRN Carrington Stephens MD ? heparin flush 100 UNIT/ML injection 250 Units 250 Units Intravenous 2 times per day Carrington Stephens MD 250 Units at 08/23/192002 ? heparin flush 100 UNIT/ML injection 250 Units 250 Units Intravenous PRN Carrington Stephens MD ? sodium chloride flush 0.9 % injection 10 mL 10 mL Intracatheter Q12H Carrington Stephens MD 10 mL at 08/23/19 1049 ? heparin flush 100 UNIT/ML injection 250 Units 250 Units Intravenous Q12H Carrington Stephens MD 500 Units at 08/23/19 1049 ? sodium chloride flush 0.9 % injection 10 mL 10 mL Intracatheter PRMichael Stephens MD 10 mL at 08/22/19 1410 ? heparin flush 100 UNIT/ML injection 250 Units 250 Units Intracatheter PRMichael Stephens MD ? sodium chloride flush 0.9 % injection 10 mL 10 mL Intravenous 2 times per day Carrington Stephens MD 10mL at 08/17/19 2101 ? sodium chloride flush 0.9 % injection 10 mL 10 mL Intravenous PRN Carrington Stephens MD ? ondansetron (ZOFRAN) injection 4 mg 4 mg Intravenous Q6H PRN Carrington Stephens MD ARE THERE PERTINENT UPDATES TO PAST,FAMILY, OR SOCIAL HISTORY?: No Subjective: Patient to OR today for second stage defatting and inset off flap with placement of external fixator Patient tolerated procedure well and is in T2 ICU post-op for q1hr flap checks No fevers or chills, no chest pain or SOB Review of Systems Constitutional: Positive for activity change. Negative for chills and fever. HENT: Negative for tinnitus, trouble swallowing and voice change. Eyes: Negative for discharge and itching. Respiratory: Negative for shortness of breath, wheezing and stridor. Cardiovascular: Negative for chest pain. Gastrointestinal: Negative for abdominal pain, diarrhea, nausea and vomiting. Genitourinary: Negative for dysuria, flank pain and hematuria. Musculoskeletal: Positive for arthralgias. Negative for back pain, neck pain and neck stiffness. Skin: Positive for wound. Negative for rash. Neurological: Positive for weakness. Negative for dizziness, tremors, light- headedness, numbness andheadaches. Hematological: Negative for adenopathy. Psychiatric/Behavioral: Negative for agitation, behavioral problems and confusion. Objective: Patient Vitals for the past 24 hrs: BP Temp Temp src Pulse Resp SpO2 08/24/19 0300 122/76 ? ? 82 11 98 % 08/24/19 0200 118/66 ? ? 82 12 97 % 08/24/19 0100 118/70 ? ? 90 12 96 % 08/24/19 0000 115/71 97.3 ?F (36.3 ?C) Temporal 96 14 99 % 08/23/19 2300 113/77 ? ? 93 16 99 % 08/23/19 2200 120/80 ? ? 103 18 99 % 08/23/19 2142 118/77 ? ? 95 15 99 % 08/23/19 2100 ? ? ? 100 10 95 % 08/23/19 2000 126/83 97.8 ?F (36.6 ?C) Temporal 88 8 99 % 08/23/19 1938 ? ? Temporal 100 15 100 % 08/23/19 1916 (!) 124/90 ? ? 96 11 100 % 08/23/19 1845 123/81 97.6 ?F (36.4 ?C) Temporal 102 16 99 % 08/23/19 1830 123/81 ? ? 94 18 100 % 08/23/19 1815 128/74 ? ? 98 16 ? 08/23/19 1800 121/81 ? ? 91 15 ? 08/23/19 1745 124/77 ? ? 101 16 ? 08/23/19 1730 126/78 ? ? 92 16 100 % 08/23/19 1715 133/75 ? ? 102 15 99 % 08/23/19 1700 138/68 ? ? 104 16 99 % 08/23/19 1647 (!) 162/73 97.4 ?F (36.3 ?C) Temporal 105 16 93 % 08/23/19 1351 122/87 ? ? 101 20 99 % 08/23/19 1342 125/85 ? ? 105 20 99 % 08/23/19 1338 136/87 ? ? 107 24 99 % 08/23/19 1329 128/83 99 ?F (37.2 ?C) Temporal 88 16 99 % 08/23/19 0948 125/76 97.8 ?F (36.6 ?C) Temporal 82 16 99 % 08/23/19 0515 111/74 97 ?F (36.1 ?C) Temporal 95 18 98 % PHYSICAL: Physical Exam Constitutional: General: She is not in acute distress. HENT: Head: Normocephalic and atraumatic. Right Ear: External ear normal. Left Ear: External ear normal. Nose: Nose normal. Mouth/Throat: Mouth: Mucous membranes are moist. Pharynx: Oropharynx is clear. Eyes: General: Right eye: No discharge. Left eye: No discharge. Extraocular Movements: Extraocular movements intact. Conjunctiva/sclera: Conjunctivae normal. Neck: Musculoskeletal: Neck supple. No neck rigidity or muscular tenderness. Cardiovascular: Rate and Rhythm: Normal rate and regular rhythm. Pulmonary: Effort: Pulmonary effort is normal. No respiratory distress. Breath sounds: No stridor. Chest: Chest wall: No tenderness. Abdominal: General: There is no distension. Palpations: Abdomen is soft. Tenderness: There is no abdominal tenderness. Musculoskeletal: General: Tenderness present. No swelling. Skin: General: Skin is warm and dry. Coloration: Skin is not jaundiced. Comments: Dressing c/d/i. vioptix in place Wound vac R thigh Neurological: General: No focal deficit present. Mental Status: She is alert and oriented to person, place, and time. Comments: Motor sensory intact Psychiatric: Mood and Affect: Mood normal. Behavior: Behavior normal. Data Review Data CBC with Differential: Lab Results Component Value Date WBC 13.0 08/24/2019 WBC 7.3 09/01/2015 RBC 2.90 08/24/2019 HGB 8.9 08/24/2019 HCT 25.8 08/24/2019 PLT 327 08/24/2019 CMP: Lab Results Component Value Date NA 135 08/20/2019 K 3.9 08/20/2019 CL 100 08/20/2019 CO2 29 08/20/2019 BUN 11 08/20/2019 CREATININE 0.56 08/20/2019 GFRAA >60 09/01/2015 AGRATIO 1.3 09/01/2015 LABGLOM >60 09/01/2015 GLUCOSE 96 08/20/2019 PROT 7.3 05/14/2018 LABALBU 3.5 08/17/2019 CALCIUM 9.1 08/20/2019 BILITOT 0.7 05/14/2018 ALKPHOS 95 05/14/2018 AST 35 05/14/2018 ALT 48 05/14/2018 BMP: Hepatic Function Panel:Ionized Calcium: No results found for: IONCA Magnesium: Lab Results Component Value Date MG 1.9 08/20/2019 Phosphorus: Lab Results Component Value Date PHOS 3.8 08/17/2019 PT/INR: Lab Results Component Value Date PROTIME 10.4 08/16/2019 INR 1.0 08/16/2019 PTT: No results found for: APTT[APTT Last 3 Troponin: Lab Results Component Value Date TROPONINI <0.012 08/14/2019 TROPONINI <0.017 05/11/2015 Urine Culture: No components found for: CURINE Blood Culture: No components found for: CBLOOD, CFUNGUSBL Blood Culture from Central Line: No components found for: CBLOODLN Stool Culture: No components found for: CSTOOL Sputum Culture: No components found for: CSPUTUM Sputum Culture for AFB: No components found for: CAFBSM Wound Culture: Corynebacterium Patient Active Problem List Diagnosis ? Post-traumatic headache ? Depression ? Anxiety ? Chronic pelvic pain in female ? Endometriosis determined by laparoscopy ? Family history of breast cancer in mother ? Increased risk of breast cancer ? Closed torus fracture of lower end of left tibia ? Wound dehiscence ? 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 Subacute osteomyelitis of left tibia (HCC) ? Open wound of left ankle ? Sequela of Corynebacterium infection ? Hardware complicating wound infection (HCC) ? Acute blood loss anemia ? Hyponatremia ASSESSMENT: This is a 33 y.o. female with osteomyelitis of LLE s/p ALT free flap from R thigh to LLE 08/16 PLAN: Neuro/Spine: - tylenol scheduled - [place] -dilaudid prn breakthrough - home prozac - toradol HEENT: - no issues Cardiovascular: - ASA 325mg daily - continue to monitor Pulmonary: - IS - duoneb prn - encourage deep breathing, coughing - RA FEN/GI: - colace, miralax, senna - HLIVF - General diet - replace electrolytes as needed - hyponatremia 132 : - CrCl: 120 - d/c sampson sampson, monitor UOP Heme: - Hgb: 8.9 - no transfusion ID: - vancomycin BID per ID with plans for extended (6wk) course through 09/28/2019 - check vanc trough before next dose - OR clx corynebacterium Endo: - no issues Lines/Devices: - sampson out today - PIV Prophylaxis: DVT: lovenox Has DVT PPX been started? yes If no, why? lovenox GI: none Pressure Ulcer: none Musculoskeletal: - bedrest - flap checks -alex hugger to LLE - elevate leg - vioptix, goal >58% WB Status: RUE:AT LUE: AT RLE: AT LLE: NWB Disposition: Transfer to floor Associated attestation - Josse Aparicio MD - 08/24/2019 12:06 PM EDT ~~~~~~~~~~~~~~~~~~~~~~~~~~~~~~~~~~~~~~~~~~~~~~~~~~~~~~~~~~~ Attending physician addendum: I independently saw and evaluated the patient. I personally obtained the smith and critical portion ofthe history and physical exam. I reviewed and agree with the documentation below. I personally reviewed patient's labs and imaging studies. My findings agree with the below note except for any details corrected. 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 Postoperative pain controlled with IV narcotic painmedications. Vancomycin through 13.6 from yesterday, adequate per ID following. Mild postoperative hyponatremia. OK for diet by primary service. Luz tart [place], d/c scheduled acetaminophen, reschedule IV narcotics for breakthrough pain, start Toradol, d/c IVF, d/c Sampson catheter, TOV. Cont ASA and Lovenox. Stable for transfer to floor - dicussed with Plastic surgery team. Thank you for allowing us to participate in this patient's care ! Santi Aparicio MD P Michelle Cabrera MD - 08/23/2019 10:59 PM EDT Flap check S: Patient doing well. No issues. Pain controlled O: Vitals: 08/23/19 2142 BP: 118/77 Pulse: 95 Resp: 15 Temp: SpO2: 99% LLE ALT flap to medial malleolus region soft, pink, warm, cap refill 2 sec. Triphasic arterial signal. Vioptix 78%. Ex fix in place A/P 33F POD 0 s/p defatting and inset of ALT flap (donor site R thigh) to L medial malleolus region -NPO. IVF -Q1H flap checks. Vioptix. Call MD aviation technician if Vioptix <58%, flap turns dusky or purple or there is loss of arterial signal. -Pain control -H/o osteoarthritis. Continue Vancomycin -ASA, Lovenox Michelle Cabrera MD PGY-7 Plastic & Reconstructive Surgery Fellow Pager #[phone] Everton Ugalde MD - 08/23/2019 7:35 PM EDT Daily Trauma Progress Note Resident 08/23/2019 7:35 PM Admit Date: 08/14/2019 MEDICATIONS: Current Facility-Administered Medications Medication Dose Route Frequency Provider Last Rate Last Dose ? midazolam (VERSED) 2 MG/2ML injection Carrington Stephens MD ? vancomycin (VANCOCIN) 1 g injection Carrington Stephens MD ? tobramycin (NEBCIN) 1.2 g injection Carrington Stephens MD ? xeroform petrolat gauze 1X8 external pads Carrington Stephens MD ? xeroform petrolat gauze 1X8 external pads Carrington Stephens MD ? lactated ringers infusion Intravenous Continuous Pepe Verde MD ? lactated ringers infusion Intravenous Continuous Carrington Stephens MD 100 mL/hr at 08/23/19 0133 ? HYDROmorphone (DILAUDID) injection 0.5 mg 0.5 mg Intravenous Q4H PRN Carrington Stephens MD 0.5 mg at 08/20/19 1126 ? docusate sodium (COLACE) capsule 100 mg 100 mg Oral TID Carrington Stephens MD 100 mg at 08/22/19 2134 ? senna (SENOKOT) tablet 8.6 mg 1 tablet Oral BID Carrington Stephens MD 8.6 mg at 08/23/19 1010 ? polyethylene glycol (GLYCOLAX) packet 17 g 17 g Oral Daily Carrington Stephens MD 17 g at 08/20/19 1349 ? HYDROcodone-acetaminophen (NORCO) 5-325 MG per tablet 1 tablet 1 tablet Oral Q4H PRN Carrington Stephens MD 1 tablet at 08/23/19 1009 Or ? HYDROcodone-acetaminophen (NORCO) 5-325 MG per tablet 2 tablet 2 tablet Oral Q4H PRN Carrington Stephens MD 2 tablet at 08/23/19 0518 ? FLUoxetine (PROZAC) capsule 20 mg 20 mg Oral Daily Carrington Stephens MD 20 mg at 08/22/19 0852 ? enoxaparin (LOVENOX) injection 40 mg 40 mg Subcutaneous Daily Carrington Stephens MD 40 mg at 08/23/19 1010 ? vancomycin (VANCOCIN) 1,250 mg in dextrose 5 % 250 mL IVPB 1,250 mg Intravenous Q12H Carrington Stephens MD Stopped at 08/23/19 1248 ? aspirin EC tablet 325 mg 325 mg Oral Daily Carrington Stephens MD 325 mg at 08/22/19 0852 ? ipratropium-albuterol (DUONEB) nebulizer solution 1 ampule 1 ampule Inhalation Q4H PRN Carrington Stephens MD ? iopamidol (ISOVUE-370) 76 % injection 100 mL 100 mL Intravenous ONCE PRN Carrington Stephens MD ? sodium chloride flush 0.9 % injection 10 mL 10 mL Intravenous 2 times per day Carrington Stephens MD 10mL at 08/23/19 1104 ? sodium chloride flush 0.9 % injection 10 mL 10 mL Intravenous 2 times per day Carrington Stephens MD 10mL at 08/23/19 1104 ? sodium chloride flush 0.9 % injection 10 mL 10 mL Intravenous PRN Carrington Stephens MD ? heparin flush 100 UNIT/ML injection 250 Units 250 Units Intravenous 2 times per day Carrington Stephens MD 500 Units at 08/23/19 1050 ? heparin flush 100 UNIT/ML injection 250 Units 250 Units Intravenous PRN Carrington Stephens MD ? sodium chloride flush 0.9 % injection 10 mL 10 mL Intracatheter Q12H Carrington Stephens MD 10 mL at 08/23/19 1049 ? heparin flush 100 UNIT/ML injection 250 Units 250 Units Intravenous Q12H Carrington Stephens MD 500 Units at 08/23/19 1049 ? sodium chloride flush 0.9 % injection 10 mL 10 mL Intracatheter PRN Carrington Stephens MD 10 mL at 08/22/19 1410 ? heparin flush 100 UNIT/ML injection 250 Units 250 Units Intracatheter PRN Carrington Stephens MD ? sodium chloride flush 0.9 % injection 10 mL 10 mL Intravenous 2 times per day Carrington Stephens MD 10mL at 08/17/19 2101 ? sodium chloride flush 0.9 % injection 10 mL 10 mL Intravenous PRN Carrington Stephens MD ? ondansetron (ZOFRAN) injection 4 mg 4 mg Intravenous Q6H PRN Carrington Stephens MD ARE THERE PERTINENT UPDATES TO PAST,FAMILY, OR SOCIAL HISTORY?: No Subjective: Patient to OR today for second stage defatting and inset off flap with placement of external fixator Patient tolerated procedure well and is in T2 ICU post-op for q1hr flap checks No fevers or chills, no chest pain or SOB Review of Systems Constitutional: Positive for activity change. Negative for chills and fever. HENT: Negative for tinnitus, trouble swallowing and voice change. Eyes: Negative for discharge and itching. Respiratory: Negative for shortness of breath, wheezing and stridor. Cardiovascular: Negative for chest pain. Gastrointestinal: Negative for abdominal pain, diarrhea, nausea and vomiting. Genitourinary: Negative for dysuria, flank pain and hematuria. Musculoskeletal: Positive for arthralgias. Negative for back pain, neck pain and neck stiffness. Skin: Positive for wound. Negative for rash. Neurological: Positive for weakness. Negative for dizziness, tremors, light- headedness, numbness andheadaches. Hematological: Negative for adenopathy. Psychiatric/Behavioral: Negative for agitation, behavioral problems and confusion. Objective: Patient Vitals for the past 24 hrs: BP Temp Temp src Pulse Resp SpO2 08/23/19 1845 123/81 97.6 ?F (36.4 ?C) Temporal 102 16 99 % 08/23/19 1830 123/81 ? ? 94 18 100 % 08/23/19 1815 128/74 ? ? 98 16 ? 08/23/19 1800 121/81 ? ? 91 15 ? 08/23/19 1745 124/77 ? ? 101 16 ? 08/23/19 1730 126/78 ? ? 92 16 100 % 08/23/19 1715 133/75 ? ? 102 15 99 % 08/23/19 1700 138/68 ? ? 104 16 99 % 08/23/19 1647 (!) 162/73 97.4 ?F (36.3 ?C) Temporal 105 16 93 % 08/23/19 1351 122/87 ? ? 101 20 99 % 08/23/19 1342 125/85 ? ? 105 20 99 % 08/23/19 1338 136/87 ? ? 107 24 99 % 08/23/19 1329 128/83 99 ?F (37.2 ?C) Temporal 88 16 99 % 08/23/19 0948 125/76 97.8 ?F (36.6 ?C) Temporal 82 16 99 % 08/23/19 0515 111/74 97 ?F (36.1 ?C) Temporal 95 18 98 % 08/22/19 2136 119/80 96.8 ?F (36 ?C) Temporal 82 18 98 % Date 08/23/19 0000 - 08/23/19 2359 Shift 5869-8624 1041-4957 8524-8348 24 Hour Total INTAKE P.O.(mL/kg/hr) 500(0.9) 500 I.V.(mL/kg) 629(9.2) 629(9.2) Shift Total(mL/kg) 1129(16.6) 1129(16.6) OUTPUT Urine(mL/kg/hr) 500(0.9) 500 Shift Total(mL/kg) 500(7.3) 500(7.3) Weight (kg) 68 68 68 68 PHYSICAL: Physical Exam Constitutional: General: She is not in acute distress. HENT: Head: Normocephalic and atraumatic. Right Ear: External ear normal. Left Ear: External ear normal. Nose: Nose normal. Mouth/Throat: Mouth: Mucous membranes are moist. Pharynx: Oropharynx is clear. Eyes: General: Right eye: No discharge. Left eye: No discharge. Extraocular Movements: Extraocular movements intact. Conjunctiva/sclera: Conjunctivae normal. Neck: Musculoskeletal: Neck supple. No neck rigidity or muscular tenderness. Cardiovascular: Rate and Rhythm: Normal rate and regular rhythm. Pulmonary: Effort: Pulmonary effort is normal. No respiratory distress. Breath sounds: No stridor. Chest: Chest wall: No tenderness. Abdominal: General: There is no distension. Palpations: Abdomen is soft. Tenderness: There is no abdominal tenderness. Musculoskeletal: General: Tenderness present. No swelling. Skin: General: Skin is warm and dry. Coloration: Skin is not jaundiced. Comments: Dressing c/d/i. vioptix in place Neurological: General: No focal deficit present. Mental Status: She is alert and oriented to person, place, and time. Comments: Motor sensory intact Psychiatric: Mood and Affect: Mood normal. Behavior: Behavior normal. / / / Data Review Data CBC with Differential: Lab Results Component Value Date WBC 7.9 08/23/2019 WBC 7.3 09/01/2015 RBC 3.13 08/23/2019 HGB 9.7 08/23/2019 HCT 27.7 08/23/2019 PLT 291 08/23/2019 CMP: Lab Results Component Value Date NA 135 08/20/2019 K 3.9 08/20/2019 CL 100 08/20/2019 CO2 29 08/20/2019 BUN 11 08/20/2019 CREATININE 0.56 08/20/2019 GFRAA >60 09/01/2015 AGRATIO 1.3 09/01/2015 LABGLOM >60 09/01/2015 GLUCOSE 96 08/20/2019 PROT 7.3 05/14/2018 LABALBU 3.5 08/17/2019 CALCIUM 9.1 08/20/2019 BILITOT 0.7 05/14/2018 ALKPHOS 95 05/14/2018 AST 35 05/14/2018 ALT 48 05/14/2018 BMP: Hepatic Function Panel:Ionized Calcium: No results found for: IONCA Magnesium: Lab Results Component Value Date MG 1.9 08/20/2019 Phosphorus: Lab Results Component Value Date PHOS 3.8 08/17/2019 PT/INR: Lab Results Component Value Date PROTIME 10.4 08/16/2019 INR 1.0 08/16/2019 PTT: No results found for: APTT[APTT Last 3 Troponin: Lab Results Component Value Date TROPONINI <0.012 08/14/2019 TROPONINI <0.017 05/11/2015 Urine Culture: No components found for: CURINE Blood Culture: No components found for: CBLOOD, CFUNGUSBL Blood Culture from Central Line: No components found for: CBLOODLN Stool Culture: No components found for: CSTOOL Sputum Culture: No components found for: CSPUTUM Sputum Culture for AFB: No components found for: CAFBSM Wound Culture: Corynebacterium Patient Active Problem List Diagnosis ? Post-traumatic headache ? Depression ? Anxiety ? Chronic pelvic pain in female ? Endometriosis determined by laparoscopy ? Family history of breast cancer in mother ? Increased risk of breast cancer ? Closed torus fracture of lower end of left tibia ? Wound dehiscence ? 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 Subacute osteomyelitis of left tibia (HCC) ? Open wound of left ankle ? Sequela of Corynebacterium infection ? Hardware complicating wound infection (HCC) ? Acute blood loss anemia ? Hyponatremia ASSESSMENT: This is a 33 y.o. female with osteomyelitis of LLE s/p ALT free flap from R thigh to LLE 08/16 PLAN: Neuro/Spine: - tylenol scheduled - [place] -dilaudid prn breakthrough - home prozac HEENT: - no issues Cardiovascular: - ASA 325mg daily - continue to monitor Pulmonary: - IS - duoneb prn - encourage deep breathing, coughing - RA FEN/GI: - colace, miralax, senna - LR @125cc/hr - npo for now - replace electrolytes as needed : - CrCl: 138 - continue sampson, monitor UOP Heme: - Hgb: 9.0 - no transfusion ID: - vancomycin BID per ID with plans for extended (6wk) course through 09/28/2019 - check vanc trough before next dose - OR clx corynebacterium Endo: - no issues Lines/Devices: - sampson out today - PIV Prophylaxis: DVT: lovenox Has DVT PPX been started? yes If no, why? lovenox GI: none Pressure Ulcer: none Musculoskeletal: - bedrest - q1hr flap checks -alex hugger to LLE - elevate leg - vioptix WB Status: RUE:AT LUE: AT RLE: AT LLE: NWB Disposition: T2 ICU care Marilyn Carr RN - 08/23/2019 6:52 [address]TDr. boris at bedside. Aware of oozing to L lower extremity sites. Pt with doppler pulse to left lower extremity. md aware of swelling. vioptix on and to remain above 45. Dr. burnham updated pts family.Pt to transfer to T2. Report faxed and called. Vss. Pt states pain is tolerable. Pt transported to [id number] signed by Marilyn Ferreira RN at 08/23/2019 6:53 PM Kim Nuñez RN - 08/23/2019 6:50 PM EDTReport called to [facility] taking patient in T2 ICU room 221. Also notified pt's , Obed Greco. Will head to T2 waiting rom Kim Nuñez RN - 08/23/2019 6:00 PM EDTDr Child's came with pt to PACU immediately after procedure. Upon assessment of flap signals, was unable to obtain left flap signal. Pt's signal had been present before leaving OR room per report. Dr Fitch's stayed with patient at bedside assessing flap site and signals until was able to maintain flapsite pulse. He placed Vioptix on flap site and maintained tissue viability. Pt remained clam and comfortable throughout and denied pain. Will continue to monitor patient and signals. arilyn Ferreira RN - 08/23/2019 5:10 PM EDTUnable to find doppler pulse to L lower extremity. Dr. Burnham remains at bedside and aware. Pt resting prn pain meds were adminsitered. Victor Manuel Melo DO - 08/23/2019 2:03 PM EDT [facility] - Infectious Diseases Attending Progress Note Subjective: Following for infected non union s/p hardware removal Reviewed available chart/notes/records/microbiological data and imaging. Patient now s/p ALT free flap from right thigh to LLE on 08-17-2019. In OR today. Objective: Vitals: BP 128/83 Pulse 88 Temp 99 ?F (37.2 ?C) (Temporal) Resp 16 Ht 5' 7 (1.702 m) Wt 150 lb (68 kg) LMP 06/17/2016 SpO2 99% BMI 23.49 kg/m? Intake/Output Summary (Last 24 hours) at 08/23/2019 1404 Last data filed at 08/23/2019 0526 Gross per 24 hour Intake 1129 ml Output 500 ml Net 629 ml Physical Exam Deferred patient in OR Labs: Component Value Date/Time NA 135 08/20/2019 0325 K 3.9 08/20/2019 0325 CL 100 08/20/2019 0325 CO2 29 08/20/2019 0325 BUN 11 08/20/2019 0325 CREATININE 0.56 08/20/2019 0325 GLUCOSE 96 08/20/2019 0325 CALCIUM 9.1 08/20/2019 0325 PROT 7.3 05/14/2018 0840 LABALBU 3.5 08/17/2019 1830 BILITOT 0.7 05/14/2018 0840 ALKPHOS 95 05/14/2018 0840 AST 35 05/14/2018 0840 ALT 48 05/14/2018 0840 Component Value Date/Time WBC 7.9 08/23/2019 005 WBC 7.3 09/01/2015 1414 HGB 9.7 (L) 08/23/201952 HCT 27.7 (L) 08/23/2019 005 PLT 291 08/23/201952 GRANULOCYTES 68.3 08/23/201952 LYMPHOPCT 19.8 (L) 08/23/201952 MONOPCT 7.8 08/23/201952 MONOPCT 6.0% 09/01/2015 1414 LABEOS 3.8 08/23/201952 BASOPCT 0.3 08/23/2019 005 BASOPCT 0.5% 09/01/2015 1414 NEUTROABS 5.4 08/23/201952 NEUTROABS 5.1 09/01/2015 1414 Vancomycin trough - 11.6 Ref Range & Units 08/22/19 0900 Vancomycin Tr 15.0 - 20.0 ug/mL 13.4Low Comment: . Micro: 08/13 OR cultures: Corynebacterium striatum vanc 0.50 Culture, Tissue [[id number]] (Abnormal) Collected: 08/14/19 0815 Order Status: Completed Specimen: Tissue Updated: 08/17/19 1132 Gram Stain Result Few polymorphonuclear cells/lpf. No organisms seen. Tissue Cult/Smear, Aer Corynebacterium striatumAbnormal Tissue Cult/Smear, Aer -- Few Lines: PICC 43 cm L basilic vein Radiography/Echo/Other: 08-15-2019 Arterial runoff within left lower extremity is delineated on the CT angiographic images. Evidence of fractures within the left distal tibia and fibula with surgical change and disuse osteoporosis 08/14 CXR no acute findings 08/13 EKG QTc 406 Antimicrobials, Start/End Dates: Vancomycin Impression: 1. 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 H/O L ankle fracture 03/2019 secondary to ice skating Plan: 1. Current vancomycin dose adequate 2. Continue care Pager: [phone] Rachel pink RN - 08/23/2019 1:42 PM EDTBlock team at bedside administering pain block Jesse Burnham MD - 08/23/2019 7:09 AM EDT Plastic & Reconstructive Surgery S: Doing well, pain controlled. No new numbness or tingling. No acute events overnight. Ready for surgery today. Excited the plastics and ortho parts will both be completed today. Vitals: 08/23/19 0515 BP: 111/74 Pulse: 95 Resp: 18 Temp: 97 ?F (36.1 ?C) SpO2: 98% O: RLE: thigh donor site prevena in place and with good suction, slight WANG drain output sanguinous, compartments soft, no paresthesias in the foot, foot warm LLE: dressing in place, flap soft, warm, cap refill 1-2 seconds, strong doppler signal appreciated both arterial and venous, SILT @ foot & toes, +toe wiggle Drain: 0 out past 24hrs A/P: 33 y.o. female POD6 s/p free right ALT to left leg wound -OR today for combined flap debulking with Dr. Burnham and de lancey spatial frame ex-fix with ortho -NPO, updated type and screen complete -Continue ABx per ID, on vanc -Continue daily ASA -Lovenox PPx -Multimodal pain control -Continue bedrest -PT/OT -Keep left leg elevated -Continue alex hugger to left leg -Discussed with Dr. Boris Camacho M.D. PGY-1 [phone] Attending note: Revision & inset flap today, CBC reviewed, HGB stable Plan for inset versus STSG WB status as per ortho/Dr Davila I had an extensive discussion with . 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 I have outlined a treatment plan with them and, in my opinion, surgical intervention is indicated at this time. I have discussed with Ms. Denys Arriola the potential complications, limitations, expectations, alternatives, and risks of the surgical procedure which include but are not limited to the risks of injury to normal structures, persistent pain and disability, unsightly scar, postoperative stiffness, need for revision surgery, infection, myocardial infarction, deep vein thrombosis, pulmonary embolism, and even . She hashad full opportunity to ask her questions. I have answered them all to her satisfaction. I feel thatMs. Denys Arriola and any present family members do understand our discussion today and she is comfortable providing informed consent for the procedure. Jesse Burnham Carrington Ly MD - 08/23/2019 6:36 AM EDT [place] [id number] [facility] [address] [place] [address] Dept: [phone] Loc: [phone] Adult Orthopaedic Service Patient Name: Denys Arriola Date of : 1985 Date: 08/23/19 Subjective: Doing well no issues. Medications: ? docusate sodium 100 mg Oral TID ? senna 1 tablet Oral BID ? polyethylene glycol 17 g Oral Daily ? FLUoxetine 20 mg Oral Daily ? enoxaparin 40 mg Subcutaneous Daily ? vancomycin 1,250 mg Intravenous Q12H ? aspirin 325 mg Oral Daily ? sodium chloride flush 10 mL Intravenous 2 times per day ? sodium chloride flush 10 mL Intravenous 2 times per day ? heparin flush 250 Units Intravenous 2 times per day ? sodium chloride flush 10 mL Intracatheter Q12H ? heparin flush 250 Units Intravenous Q12H ? sodium chloride flush 10 mL Intravenous 2 times per day Physical Exam: Vitals: 08/23/19 0515 BP: 111/74 Pulse: 95 Resp: 18 Temp: 97 ?F (36.1 ?C) SpO2: 98% Intake and Output Summary (Last 24 hours) at Date Time Intake/Output Summary (Last 24 hours) at 08/23/2019 0636 Last data filed at 08/23/2019 0526 Gross per 24 hour Intake 1129 ml Output 500 ml Net 629 ml LLE: -Splint c/d/i with alex hugger in place -Motor: Positive toe wiggle -BCR in toes -SILT in toes -Window in splint reveals brisk capillary refill of flap Labs: CBC with Differential: Lab Results Component Value Date WBC 7.9 08/23/2019 WBC 7.3 09/01/2015 RBC 3.13 08/23/2019 HGB 9.7 08/23/2019 HCT 27.7 08/23/2019 PLT 291 08/23/2019 MCV 88.7 08/23/2019 MCH 30.9 08/23/2019 MCHC 34.9 08/23/2019 RDW 13.5 08/23/2019 SEGSPCT 69.6% 09/01/2015 LYMPHOPCT 19.8 08/23/2019 MONOPCT 7.8 08/23/2019 MONOPCT 6.0% 09/01/2015 BASOPCT 0.3 08/23/2019 BASOPCT 0.5% 09/01/2015 MONOSABS 0.6 08/23/2019 MONOSABS 0.4 09/01/2015 LYMPHSABS 1.6 08/23/2019 LYMPHSABS 1.6 09/01/2015 EOSABS 0.3 08/23/2019 EOSABS 0.1 09/01/2015 BASOSABS 0.0 08/23/2019 BASOSABS <0.1 09/01/2015 Intra-operative cultures: corynebacterium striatum Gram stain: few molymorphonuclear cells/lpf, no organisms Rads: No new images Assessment: 33 y.o. female s/p of I&D LLE with removal of hardware and application of wound vac and ALT flap Plan: -NWB LLE -Abx per ID -Flap Care per Plastics--plan for flap debulking on 08/22 per plastics, will place [facility] frame today with combined procedure. -Ice/elevate -PT/OT -Leave splint clean, dry, and intact -Continue home medication -Pain control and medical management per plastic surgery -DVT PPx per primary team. -NPO -Added -Consented Victor Manuel Melo DO - 08/22/2019 8:57 AM EDT [facility] - Infectious Diseases Attending Progress Note Subjective: Following for infected non union s/p hardware removal Reviewed available chart/notes/records/microbiological data and imaging. Patient now s/p ALT free flap from right thigh to LLE on 08-17-2019. Awaiting plastics surgery and eventually external fixator. Updated family. Objective: Vitals: BP 97/67 Pulse 77 Temp 97.5 ?F (36.4 ?C) (Temporal) Resp 16 Ht 5' 7 (1.702 m) Wt 150 lb (68 kg) LMP 06/17/2016 SpO2 97% BMI 23.49 kg/m? Intake/Output Summary (Last 24 hours) at 08/22/2019 0857 Last data filed at 08/21/2019 1812 Gross per 24 hour Intake 250 ml Output 0 ml Net 250 ml Physical Exam Vitals signs and nursing note reviewed. Constitutional: General: She is not in acute distress. Appearance: Normal appearance. She is normal weight. She is not ill-appearing, toxic-appearing or diaphoretic. HENT: Head: Normocephalic and atraumatic. Right Ear: External ear normal. Left Ear: External ear normal. Nose: Nose normal. No congestion or rhinorrhea. Eyes: General: No scleral icterus. Right eye: No discharge. Left eye: No discharge. Conjunctiva/sclera: Conjunctivae normal. Neck: Musculoskeletal: Normal range of motion and neck supple. No muscular tenderness. Cardiovascular: Rate and Rhythm: Regular rhythm. Tachycardia present. Heart sounds: No murmur. Pulmonary: Effort: Pulmonary effort is normal. No respiratory distress. Breath sounds: Normal breath sounds. Abdominal: General: Abdomen is flat. Bowel sounds are normal. There is no distension. Palpations: Abdomen is soft. There is no mass. Musculoskeletal: Normal range of motion. General: No swelling, deformity or signs of injury. Right lower leg: No edema. Comments: LLE post-op Skin: General: Skin is warm and dry. Coloration: Skin is not jaundiced. Findings: No bruising, erythema or rash. Neurological: Mental Status: She is alert and oriented to person, place, and time. Mental status is at baseline. Psychiatric: Mood and Affect: Mood normal. Behavior: Behavior normal. Thought Content: Thought content normal. Judgment: Judgment normal. Labs: Component Value Date/Time NA 135 08/20/2019 0325 K 3.9 08/20/2019 0325 CL 100 08/20/2019 0325 CO2 29 08/20/2019 0325 BUN 11 08/20/2019 0325 CREATININE 0.56 08/20/2019 0325 GLUCOSE 96 08/20/2019 0325 CALCIUM 9.1 08/20/2019 0325 PROT 7.3 05/14/2018 0840 LABALBU 3.5 08/17/2019 1830 BILITOT 0.7 05/14/2018 0840 ALKPHOS 95 05/14/2018 0840 AST 35 05/14/2018 0840 ALT 48 05/14/2018 0840 Component Value Date/Time WBC 7.4 08/22/2019 0121 WBC 7.3 09/01/2015 1414 HGB 9.7 (L) 08/22/2019 0121 HCT 28.2 (L) 08/22/2019 0121 PLT 306 08/22/2019 0121 GRANULOCYTES 59.9 08/22/2019 0121 LYMPHOPCT 26.8 08/22/2019 0121 MONOPCT 7.2 08/22/2019 0121 MONOPCT 6.0% 09/01/2015 1414 LABEOS 5.3 08/22/2019 0121 BASOPCT 0.8 08/22/2019 0121 BASOPCT 0.5% 09/01/2015 1414 NEUTROABS 4.4 08/22/2019 0121 NEUTROABS 5.1 09/01/2015 1414 Vancomycin trough - 11.6 Ref Range & Units 08/22/19 0900 Vancomycin Tr 15.0 - 20.0 ug/mL 13.4Low Comment: . Micro: 3/ OR cultures: Corynebacterium striatum vanc 0.50 Culture, Tissue [[id number]] (Abnormal) Collected: 08/14/19 0815 Order Status: Completed Specimen: Tissue Updated: 08/17/19 1132 Gram Stain Result Few polymorphonuclear cells/lpf. No organisms seen. Tissue Cult/Smear, Aer Corynebacterium striatumAbnormal Tissue Cult/Smear, Aer -- Few Lines: PICC 43 cm L basilic vein Radiography/Echo/Other: 3--2019 Arterial runoff within left lower extremity is delineated on the CT angiographic images. Evidence of fractures within the left distal tibia and fibula with surgical change and disuse osteoporosis 08/14 CXR no acute findings 08/13 EKG QTc 406 Antimicrobials, Start/End Dates: Vancomycin Impression: 1. 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 H/O L ankle fracture 03/2019 secondary to ice skating Plan: 1. Current vancomycin dose adequate 2. Continue care 3. PRS and Ortho on case Pager: [phone] Fabio Camacho MD - 08/22/2019 6:32 AM EDT Plastic & Reconstructive Surgery S: Doing well, pain controlled. No new numbness or tingling. No acute events overnight. Ready for surgery tomorrow. Vitals: 08/22/19 0612 BP: 97/67 Pulse: 77 Resp: 16 Temp: 97.5 ?F (36.4 ?C) SpO2: 97% O: RLE: thigh donor site prevena in place and with good suction, WANG drain output sanguinous, compartments soft, no paresthesias in the foot, foot warm LLE: dressing in place, flap soft, warm, cap refill 1-2 seconds, strong doppler signal appreciated both arterial and venous, leg mildly elevated, SILT @ foot & toes, +toe wiggle Drain: 0 out past 24hrs A/P: 33 y.o. female POD5 s/p free right ALT to left leg wound -OR for flap debulking 08/22, then orthopaedic definitive fixation to follow at a later date -Continue ABx per ID, on vanc -Continue daily ASA -Lovenox PPx -NPO at midnight -Type and screen tomorrow a.m. -Multimodal pain control -Continue bedrest -Keep left leg elevated -Continue alex hugger to left leg -Discussed with Dr. Boris Camacho M.D. PGY-1 [phone] German Torrez MD - 08/22/2019 5:58 AM EDT [place] [address] MED SURG [address] [facility] [address] Dept: [phone] Loc: [phone] Adult Orthopaedic Service Patient Name: Denys Arriola Date of : 1985 Date: 08/22/19 Subjective: Doing well. Pain well controlled. No acute events overnight. Denied any new numbness or tingling. Remains on bedrest. No changes since evaluation yesterday. Medications: ? ketorolac 30 mg Intravenous Q6H ? docusate sodium 100 mg Oral TID ? senna 1 tablet Oral BID ? polyethylene glycol 17 g Oral Daily ? FLUoxetine 20 mg Oral Daily ? enoxaparin 40 mg Subcutaneous Daily ? vancomycin 1,250 mg Intravenous Q12H ? aspirin 325 mg Oral Daily ? sodium chloride flush 10 mL Intravenous 2 times per day ? sodium chloride flush 10 mL Intravenous 2 times per day ? heparin flush 250 Units Intravenous 2 times per day ? sodium chloride flush 10 mL Intracatheter Q12H ? heparin flush 250 Units Intravenous Q12H ? sodium chloride flush 10 mL Intravenous 2 times per day Physical Exam: Vitals: 08/21/19 1715 BP: 116/81 Pulse: 88 Resp: 18 Temp: 99.3 ?F (37.4 ?C) SpO2: 98% Intake and Output Summary (Last 24 hours) at Date Time Intake/Output Summary (Last 24 hours) at 08/22/2019 0559 Last data filed at 08/21/2019 1812 Gross per 24 hour Intake 250 ml Output 0 ml Net 250 ml LLE: -Splint c/d/i with alex hugger in place -Motor: Positive toe wiggle -BCR in toes -SILT in toes -Window in splint reveals brisk capillary refill of flap Labs: CBC with Differential: Lab Results Component Value Date WBC 7.4 08/22/2019 WBC 7.3 09/01/2015 RBC 3.14 08/22/2019 HGB 9.7 08/22/2019 HCT 28.2 08/22/2019 PLT 306 08/22/2019 MCV 89.8 08/22/2019 MCH 30.9 08/22/2019 MCHC 34.4 08/22/2019 RDW 13.7 08/22/2019 SEGSPCT 69.6% 09/01/2015 LYMPHOPCT 26.8 08/22/2019 MONOPCT 7.2 08/22/2019 MONOPCT 6.0% 09/01/2015 BASOPCT 0.8 08/22/2019 BASOPCT 0.5% 09/01/2015 MONOSABS 0.5 08/22/2019 MONOSABS 0.4 09/01/2015 LYMPHSABS 2.0 08/22/2019 LYMPHSABS 1.6 09/01/2015 EOSABS 0.4 08/22/2019 EOSABS 0.1 09/01/2015 BASOSABS 0.1 08/22/2019 BASOSABS <0.1 09/01/2015 Intra-operative cultures: corynebacterium striatum Gram stain: few molymorphonuclear cells/lpf, no organisms Rads: No new images Assessment: 33 y.o. female s/p of I&D LLE with removal of hardware and application of wound vac and ALT flap Plan: -NWB LLE -Abx per ID -Flap Care per Plastics--plan for flap debulking on 08/22 per plastics, [facility] frame likely Monday -Ice/elevate -PT/OT -Leave splint clean, dry, and intact -Continue home medication -Pain control and medical management per plastic surgery -DVT PPx per primary team. -okay for diet today -NPO at midnight Monday night in anticipation of TSF application Monday -Ortho to follow peripherally German Cabrera PGY-2 Orthopaedic Surgery 08/22/2019 5:59 AM [phone] Annabel Hernandez, MS, RD, LD - 08/21/2019 1:07 PM EDT Nutrition Assessment Type and Reason for Visit: Reassess Nutrition Recommendations: 1. Continue with General diet 2. Encourage small frequent meals and adequate fluids 3. Per MNT will modify Ensure delivery to between meals and HS and change to Ensure Enlive due to added fiber. 4. Suggest MVI and vitamin C supplements 5. RD continue to monitor overall nutritional status and follow up weekly Nutrition Assessment: Patient lying in bed, just finished lunch. Reports that she is getting full easily due to begin constipated. Laxatives and stool softeners in place - encouraged adequate water intake. Patient reports she is drinking the Ensure Enlive or Ensure Surgery that she has been receiving.Patient currently receiving breakfast and dinner, however drinking after meals. Will change time of Ensure delivery to between meals and HS. Per patient planned surgery for Monday and Monday. Malnutrition Assessment: ? Malnutrition Status: At risk for malnutrition Nutrition Risk Level: High Nutrient Needs: ? Estimated Daily Total Kcal: 3538-3116 ? Estimated Daily Protein (g): 95-102 ? Estimated Daily Total Fluid (ml/day): 2040-2380ml or per MD Nutrition Diagnosis: ? Problem: Increased nutrient needs(protein) ? Etiology: related to Increased demand for energy/nutrients ? Signs and symptoms: as evidenced by Presence of wounds Objective Information: ? Nutrition-Focused Physical Findings: +bowel sounds; +2 RLE edema; trace LLE edema; - I&O; Stef 15 ? Wound Type: Multiple, Surgical Wound ? Current Nutrition Therapies: ? Oral Diet Orders: General ? Oral Diet intake: NPO ? Oral Nutrition Supplement (ONS) Orders: Other Oral Supplement (See Comment)(Ensure Surgery) ? ONS intake: NPO ? Anthropometric Measures: ? Ht: 5' 7 (170.2 cm) ? Admission Body Wt: 150 lb (68 kg)(stated) ? Usual Body Wt: 146 lb (66.2 kg) ? [place] Body Wt: 135 lb (61.2 kg), % [place] Body 111% ? BMI Classification: BMI 18.5 - 24.9 Normal Weight Nutrition Interventions: Continue current diet, Modify current ONS Continued Inpatient Monitoring Nutrition Evaluation: ? Evaluation: Progressing toward goals ? Goals: Pt will consume ONS and >80% estimated protein needs daily ? Monitoring: Meal Intake, Supplement Intake, Diet Tolerance, Skin Integrity, Wound Healing, I&O, Pertinent Labs, Nausea or Vomiting, Diarrhea, Constipation, Monitor Bowel Function Contact Number: pager [phone] Mimi Victor Manuel DO Eliana - 08/21/2019 8:56 AM EDT [facility] - Infectious Diseases Attending Progress Note Subjective: Following for infected non union s/p hardware removal Reviewed available chart/notes/records/microbiological data and imaging. Patient now s/p ALT free flap from right thigh to LLE on 08-17-2019. Awaiting plastics surgery and eventually external fixator. Vancomycin level slightly low but acceptable. Discussed with patient and family. Objective: Vitals: BP 122/75 Pulse 86 Temp 97.9 ?F (36.6 ?C) (Temporal) Resp 16 Ht 5' 7 (1.702 m) Wt150 lb (68 kg) LMP 06/17/2016 SpO2 96% BMI 23.49 kg/m? Intake/Output Summary (Last 24 hours) at 08/21/2019 0856 Last data filed at 08/21/2019 0444 Gross per 24 hour Intake 1200 ml Output 2584 ml Net -1384 ml Physical Exam Vitals signs and nursing note reviewed. Constitutional: General: She is not in acute distress. Appearance: Normal appearance. She is normal weight. She is not ill-appearing, toxic-appearing or diaphoretic. HENT: Head: Normocephalic and atraumatic. Right Ear: External ear normal. Left Ear: External ear normal. Nose: Nose normal. No congestion or rhinorrhea. Eyes: General: No scleral icterus. Right eye: No discharge. Left eye: No discharge. Conjunctiva/sclera: Conjunctivae normal. Neck: Musculoskeletal: Normal range of motion and neck supple. No muscular tenderness. Cardiovascular: Rate and Rhythm: Regular rhythm. Tachycardia present. Heart sounds: No murmur. Pulmonary: Effort: Pulmonary effort is normal. No respiratory distress. Breath sounds: Normal breath sounds. Abdominal: General: Abdomen is flat. Bowel sounds are normal. There is no distension. Palpations: Abdomen is soft. There is no mass. Musculoskeletal: Normal range of motion. General: No swelling, deformity or signs of injury. Right lower leg: No edema. Comments: LLE post-op Skin: General: Skin is warm and dry. Coloration: Skin is not jaundiced. Findings: No bruising, erythema or rash. Neurological: Mental Status: She is alert and oriented to person, place, and time. Mental status is at baseline. Psychiatric: Mood and Affect: Mood normal. Behavior: Behavior normal. Thought Content: Thought content normal. Judgment: Judgment normal. Labs: Component Value Date/Time NA 135 08/20/2019 0325 K 3.9 08/20/2019 0325 CL 100 08/20/2019 0325 CO2 29 08/20/2019 0325 BUN 11 08/20/2019 0325 CREATININE 0.56 08/20/2019 0325 GLUCOSE 96 08/20/2019 0325 CALCIUM 9.1 08/20/2019 0325 PROT 7.3 05/14/2018 0840 LABALBU 3.5 08/17/2019 1830 BILITOT 0.7 05/14/2018 0840 ALKPHOS 95 05/14/2018 0840 AST 35 05/14/2018 0840 ALT 48 05/14/2018 0840 Component Value Date/Time WBC 6.6 08/21/2019 0021 WBC 7.3 09/01/2015 1414 HGB 9.2 (L) 08/21/2019 0021 HCT 27.0 (L) 08/21/2019 0021 PLT 271 08/21/2019 0021 GRANULOCYTES 60.5 08/21/2019 0021 LYMPHOPCT 27.2 08/21/2019 0021 MONOPCT 7.7 08/21/2019 0021 MONOPCT 6.0% 09/01/2015 1414 LABEOS 3.7 08/21/2019 0021 BASOPCT 0.9 08/21/2019 0021 BASOPCT 0.5% 09/01/2015 1414 NEUTROABS 4.0 08/21/2019 0021 NEUTROABS 5.1 09/01/2015 1414 Vancomycin trough - 11.6 Micro: 3/4 OR cultures: Corynebacterium striatum vanc 0.50 Culture, Tissue [[id number]] (Abnormal) Collected: 08/14/19 0815 Order Status: Completed Specimen: Tissue Updated: 08/17/19 1132 Gram Stain Result Few polymorphonuclear cells/lpf. No organisms seen. Tissue Cult/Smear, Aer Corynebacterium striatumAbnormal Tissue Cult/Smear, Aer -- Few Lines: PICC 43 cm L basilic vein Radiography/Echo/Other: 08-15-2019 Arterial runoff within left lower extremity is delineated on the CT angiographic images. Evidence of fractures within the left distal tibia and fibula with surgical change and disuse osteoporosis 08/14 CXR no acute findings 08/13 EKG QTc 406 Antimicrobials, Start/End Dates: Vancomycin Impression: 1. 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 H/O L ankle fracture 03/2019 secondary to ice skating Plan: 1. Continue vancomycin 2. Check level in morning Pager: [phone] Luna gold OT - 08/21/2019 8:08 AM EDTOccupational Therapy Attempted OT eval. Pt is currently on bedrest per order in [facility] as well as plastic surgeries note from this morning. Will continue to monitor. ~Luna Serrano MS, OTR/L Jesse Burnham MD - 08/21/2019 7:09 AM EDT Plastic & Reconstructive Surgery S: Doing well, pain controlled. No new numbness or tingling. No acute events overnight. Vitals: 08/21/19 0501 BP: 122/75 Pulse: 86 Resp: 16 Temp: 97.9 ?F (36.6 ?C) SpO2: 96% O: RLE: thigh donor site prevena in place, drain output sanguinous, compartments soft, no paresthesias in the foot, foot warm LLE: dressing in place, flap soft, warm, cap refill 1-2 seconds, strong doppler signal appreciated both arterial and venous, leg mildly elevated, SILT @ foot & toes, +toe wiggle Drain: 9 out past 24hrs A/P: 33 y.o. female POD4 s/p free right ALT to left leg wound -Plan for flap debulking 08/22, then orthopaedic definitive fixation to follow -Continue ABx per ID, on vanc -Continue daily ASA -Lovenox PPx -Ok for diet -Multimodal pain control -Continue bedrest -Keep left leg elevated -Continue alex hugger to left leg -Discussed with Dr. Boris Camacho M.D. PGY-1 [phone] Attending Note: Patient doing well flap viable Will plan debulking and inset on Monday, risks benefits and alternatives were discussed with the patient. She understands the the proposed procedure which is flap inset debulking possible split-thickness skin graft and possible wound VAC placement all questions were answered Continue nonweightbearing daily aspirin and Lovenox protocol German Torrez MD - 08/21/2019 5:53 AM EDT [facility] MED SURG [address] [place] [address] Dept: [phone] Loc: [phone] Adult Orthopaedic Service Patient Name: Denys Arriola Date of : 1985 Date: 08/21/19 Subjective: Doing well. Pain well controlled. No acute events overnight. Denied any new numbness or tingling. Remains on bedrest. Medications: ? ketorolac 30 mg Intravenous Q6H ? docusate sodium 100 mg Oral TID ? senna 1 tablet Oral BID ? polyethylene glycol 17 g Oral Daily ? FLUoxetine 20 mg Oral Daily ? enoxaparin 40 mg Subcutaneous Daily ? vancomycin 1,250 mg Intravenous Q12H ? aspirin 325 mg Oral Daily ? sodium chloride flush 10 mL Intravenous 2 times per day ? sodium chloride flush 10 mL Intravenous 2 times per day ? heparin flush 250 Units Intravenous 2 times per day ? sodium chloride flush 10 mL Intracatheter Q12H ? heparin flush 250 Units Intravenous Q12H ? sodium chloride flush 10 mL Intravenous 2 times per day Physical Exam: Vitals: 08/21/19 0501 BP: 122/75 Pulse: 86 Resp: 16 Temp: 97.9 ?F (36.6 ?C) SpO2: 96% Intake and Output Summary (Last 24 hours) at Date Time Intake/Output Summary (Last 24 hours) at 08/21/2019 0553 Last data filed at 08/21/2019 0444 Gross per 24 hour Intake 1200 ml Output 2584 ml Net -1384 ml LLE: -Splint c/d/i -Motor: Positive toe wiggle -BCR in toes -SILT in toes -Window in splint reveals brisk capillary refill of flap Labs: CBC with Differential: Lab Results Component Value Date WBC 6.6 08/21/2019 WBC 7.3 09/01/2015 RBC 3.03 08/21/2019 HGB 9.2 08/21/2019 HCT 27.0 08/21/2019 PLT 271 08/21/2019 MCV 89.3 08/21/2019 MCH 30.5 08/21/2019 MCHC 34.2 08/21/2019 RDW 13.7 08/21/2019 SEGSPCT 69.6% 09/01/2015 LYMPHOPCT 27.2 08/21/2019 MONOPCT 7.7 08/21/2019 MONOPCT 6.0% 09/01/2015 BASOPCT 0.9 08/21/2019 BASOPCT 0.5% 09/01/2015 MONOSABS 0.5 08/21/2019 MONOSABS 0.4 09/01/2015 LYMPHSABS 1.8 08/21/2019 LYMPHSABS 1.6 09/01/2015 EOSABS 0.2 08/21/2019 EOSABS 0.1 09/01/2015 BASOSABS 0.1 08/21/2019 BASOSABS <0.1 09/01/2015 Intra-operative cultures: corynebacterium striatum Gram stain: few molymorphonuclear cells/lpf, no organisms Rads: No new images Assessment: 33 y.o. female s/p of I&D LLE with removal of hardware and application of wound vac and ALT flap Plan: -NWB LLE -Abx per ID -Flap Care per Plastics--plan for flap debulking on 08/22 per plastics, will place [facility] frame at that time/after -Ice/elevate -PT/OT -Leave splint clean, dry, and intact -Continue home medication -Pain control per orthopaedic protocol -Intra-op cultures pending -DVT PPx per primary team. -okay for diet today German Cabrera PGY-2 Orthopaedic Surgery 08/21/2019 5:53 AM [phone] Victor Manuel Melo DO - 08/20/2019 9:47 AM EDT [facility] - Infectious Diseases Attending Progress Note Subjective: Following for infected non union s/p hardware removal Reviewed available chart/notes/records/microbiological data and imaging. Patient now s/p ALT free flap from right thigh to LLE on 08-17-2019. Awaiting external fixator. Vancomycin level slightly low but acceptable. Discussed with patient. Objective: Vitals: BP 111/88 Pulse 80 Temp 99 ?F (37.2 ?C) Resp 15 Ht 5' 7 (1.702 m) Wt 150 lb (68 kg) LMP 06/17/2016 SpO2 99% BMI 23.49 kg/m? Intake/Output Summary (Last 24 hours) at 08/20/2019 0948 Last data filed at 08/20/2019 0543 Gross per 24 hour Intake 2023 ml Output 3805 ml Net -1782 ml Physical Exam Vitals signs and nursing note reviewed. Constitutional: General: She is not in acute distress. Appearance: Normal appearance. She is normal weight. She is not ill-appearing, toxic-appearing or diaphoretic. HENT: Head: Normocephalic and atraumatic. Right Ear: External ear normal. Left Ear: External ear normal. Nose: Nose normal. No congestion or rhinorrhea. Eyes: General: No scleral icterus. Right eye: No discharge. Left eye: No discharge. Conjunctiva/sclera: Conjunctivae normal. Neck: Musculoskeletal: Normal range of motion and neck supple. No muscular tenderness. Cardiovascular: Rate and Rhythm: Regular rhythm. Tachycardia present. Heart sounds: No murmur. Pulmonary: Effort: Pulmonary effort is normal. No respiratory distress. Breath sounds: Normal breath sounds. Abdominal: General: Abdomen is flat. Bowel sounds are normal. There is no distension. Palpations: Abdomen is soft. There is no mass. Musculoskeletal: Normal range of motion. General: No swelling, deformity or signs of injury. Right lower leg: No edema. Comments: LLE post-op Skin: General: Skin is warm and dry. Coloration: Skin is not jaundiced. Findings: No bruising, erythema or rash. Neurological: Mental Status: She is alert and oriented to person, place, and time. Mental status is at baseline. Psychiatric: Mood and Affect: Mood normal. Behavior: Behavior normal. Thought Content: Thought content normal. Judgment: Judgment normal. Labs: Component Value Date/Time NA 135 08/20/2019 0325 K 3.9 08/20/2019 0325 CL 100 08/20/2019 0325 CO2 29 08/20/2019 0325 BUN 11 08/20/2019 0325 CREATININE 0.56 08/20/2019 0325 GLUCOSE 96 08/20/2019 0325 CALCIUM 9.1 08/20/2019 0325 PROT 7.3 05/14/2018 0840 LABALBU 3.5 08/17/2019 1830 BILITOT 0.7 05/14/2018 0840 ALKPHOS 95 05/14/2018 0840 AST 35 05/14/2018 0840 ALT 48 05/14/2018 0840 Component Value Date/Time WBC 6.8 08/20/2019 0325 WBC 7.3 09/01/2015 1414 HGB 9.0 (L) 08/20/2019 0325 HCT 25.9 (L) 08/20/2019 0325 PLT 230 08/20/2019 0325 GRANULOCYTES 65.9 08/20/2019 0325 LYMPHOPCT 23.1 08/20/2019 0325 MONOPCT 7.4 08/20/2019 0325 MONOPCT 6.0% 09/01/2015 1414 LABEOS 3.4 08/20/2019 0325 BASOPCT 0.2 08/20/2019 0325 BASOPCT 0.5% 09/01/2015 1414 NEUTROABS 4.5 08/20/2019 0325 NEUTROABS 5.1 09/01/2015 1414 Vancomycin trough - 11.6 Micro: 3/4 OR cultures: Corynebacterium striatum vanc 0.50 Culture, Tissue [[id number]] (Abnormal) Collected: 08/14/19 0815 Order Status: Completed Specimen: Tissue Updated: 08/17/19 1132 Gram Stain Result Few polymorphonuclear cells/lpf. No organisms seen. Tissue Cult/Smear, Aer Corynebacterium striatumAbnormal Tissue Cult/Smear, Aer -- Few Lines: PICC 43 cm L basilic vein Radiography/Echo/Other: 08-15-2019 Arterial runoff within left lower extremity is delineated on the CT angiographic images. Evidence of fractures within the left distal tibia and fibula with surgical change and disuse osteoporosis 08/14 CXR no acute findings 08/13 EKG QTc 406 Antimicrobials, Start/End Dates: Vancomycin Impression: 1. 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 H/O L ankle fracture 03/2019 secondary to ice skating Plan: 1. Continue vancomycin 2. Recheck in about 48 hours (drug accumulates) 3. Orthopedics on case for fixator placement later Pager: [phone] Josse Buitrago MD - 08/20/2019 8:20 AM EDT Daily Trauma Progress Note Resident 08/20/2019 8:20 AM Admit Date: 08/14/2019 MEDICATIONS: Current Facility-Administered Medications Medication Dose Route Frequency Provider Last Rate Last Dose ? ketorolac (TORADOL) injection 30 mg 30 mg Intravenous Q6H Everton Cha MD ? FLUoxetine (PROZAC) capsule 20 mg 20 mg Oral Daily Bogdan Davila MD 20 mg at 08/19/19 1113 ? acetaminophen (TYLENOL) tablet 650 mg 650 mg Oral 3 times per day Everton Cha MD 650 mgat 08/20/19 0535 ? HYDROcodone-acetaminophen (NORCO) 5-325 MG per tablet 1 tablet 1 tablet Oral Q6H PRN Everton Cha MD 1 tablet at 08/20/19 0321 ? HYDROmorphone (DILAUDID) injection 1 mg 1 mg Intravenous Q2H PRN Valencia Oakes MD 1 mg at 08/19/19 1701 Or ? HYDROmorphone (DILAUDID) injection 0.5 mg 0.5 mg Intravenous Q2H PRN Valencia Oakes MD 0.5 mgat 08/20/19 0003 ? enoxaparin (LOVENOX) injection 40 mg 40 mg Subcutaneous Daily Everton Cha MD 40 mg at 08/19/19 1202 ? vancomycin (VANCOCIN) 1,250 mg in dextrose 5 % 250 mL IVPB 1,250 mg Intravenous Q12H Alberto Rome DO Stopped at 08/19/192236 ? lactated ringers infusion Intravenous Continuous Alberto Rome DO 125 mL/hr at 08/19/19 1715 ? aspirin EC tablet 325 mg 325 mg Oral Daily Alberto Rome DO 325 mg at 08/19/19 0757 ? ipratropium-albuterol (DUONEB) nebulizer solution 1 ampule 1 ampule Inhalation Q4H PRN Valencia Oakes MD ? sennosides-docusate sodium (SENOKOT-S) 8.6-50 MG tablet 2 tablet 2 tablet Oral Daily Alberto Rome DO 2 tablet at 08/19/19 0756 ? iopamidol (ISOVUE-370) 76 % injection 100 mL 100 mL Intravenous ONCE PRN Alberto Rome, DO ? sodium chloride flush 0.9 % injection 10 mL 10 mL Intravenous 2 times per day Alberto Rome, DO ? sodium chloride flush 0.9 % injection 10 mL 10 mL Intravenous 2 times per day Alberto Rome DO 10mL at 08/19/19 2027 ? sodium chloride flush 0.9 % injection 10 mL 10 mL Intravenous PRN Alberto Rome DO ? heparin flush 100 UNIT/ML injection 250 Units 250 Units Intravenous 2 times per day Alberto RomeDO 250 Units at 08/19/19 0751 ? heparin flush 100 UNIT/ML injection 250 Units 250 Units Intravenous PRN Alberto Rome DO ? sodium chloride flush 0.9 % injection 10 mL 10 mL Intracatheter Q12H Alberto Rome DO 10 mL at 08/18/19 0456 ? heparin flush 100 UNIT/ML injection 250 Units 250 Units Intravenous Q12H Alberto Davidjake, DO 250 Units at 08/20/19 0535 ? sodium chloride flush 0.9 % injection 10 mL 10 mL Intracatheter PRN Alberto Rome, DO ? heparin flush 100 UNIT/ML injection 250 Units 250 Units Intracatheter PRN Alberto Rome, DO ? sodium chloride flush 0.9 % injection 10 mL 10 mL Intravenous 2 times per day Alberto Rome DO 10mL at 08/17/19 2101 ? sodium chloride flush 0.9 % injection 10 mL 10 mL Intravenous PRN Alberto Rome, DO ? ondansetron (ZOFRAN) injection 4 mg 4 mg Intravenous Q6H PRN Alberto Rome, DO ARE THERE PERTINENT UPDATES TO PAST,FAMILY, OR SOCIAL HISTORY?: No Subjective: Pain better controlled, norco helps. No other complaints No fevers or chills Review of Systems Constitutional: Positive for activity change. Negative for chills and fever. HENT: Negative for tinnitus, trouble swallowing and voice change. Eyes: Negative for discharge and itching. Respiratory: Negative for shortness of breath, wheezing and stridor. Cardiovascular: Negative for chest pain. Gastrointestinal: Negative for abdominal pain, diarrhea, nausea and vomiting. Genitourinary: Negative for dysuria, flank pain and hematuria. Musculoskeletal: Positive for arthralgias. Negative for back pain, neck pain and neck stiffness. Skin: Positive for wound. Negative for rash. Neurological: Positive for weakness. Negative for dizziness, tremors, light- headedness, numbness andheadaches. Hematological: Negative for adenopathy. Psychiatric/Behavioral: Negative for agitation, behavioral problems and confusion. Objective: Patient Vitals for the past 24 hrs: BP Temp Temp src Pulse Resp SpO2 08/20/19 0600 114/69 98.2 ?F (36.8 ?C) ? 83 17 98 % 08/20/19 0500 112/74 98.2 ?F (36.8 ?C) ? 86 12 97 % 08/20/19 0400 111/71 98.4 ?F (36.9 ?C) Bladder 75 13 97 % 08/20/19 0300 114/74 98.2 ?F (36.8 ?C) ? 82 18 99 % 08/20/19 0200 116/68 98.4 ?F (36.9 ?C) ? 96 12 98 % 08/20/19 0100 112/68 98.4 ?F (36.9 ?C) ? 99 13 97 % 08/20/19 0000 116/74 98.2 ?F (36.8 ?C) Bladder 80 13 97 % 08/19/19 2300 115/67 98.8 ?F (37.1 ?C) ? 80 14 97 % 08/19/19 2200 116/68 99.1 ?F (37.3 ?C) ? 85 15 96 % 08/19/19 2100 115/76 99.1 ?F (37.3 ?C) ? 87 14 100 % 08/19/19 2000 120/68 99 ?F (37.2 ?C) Bladder 102 16 97 % 08/19/19 1900 119/72 99 ?F (37.2 ?C) ? 106 19 98 % 08/19/19 1800 121/74 98.8 ?F (37.1 ?C) ? 82 18 100 % 08/19/19 1700 116/71 98.6 ?F (37 ?C) ? 100 16 97 % 08/19/19 1600 115/68 98.6 ?F (37 ?C) ? 108 19 100 % 08/19/19 1500 112/74 98.6 ?F (37 ?C) ? 84 13 97 % 08/19/19 1400 112/66 98.8 ?F (37.1 ?C) ? 90 11 95 % 08/19/19 1300 128/64 98.6 ?F (37 ?C) ? 96 15 100 % 08/19/19 1200 124/77 99 ?F (37.2 ?C) ? 87 17 100 % 08/19/19 1100 129/81 99 ?F (37.2 ?C) ? 91 18 100 % 08/19/19 1000 119/89 98.8 ?F (37.1 ?C) ? 91 13 99 % 08/19/19 0900 113/76 98.6 ?F (37 ?C) ? 79 10 100 % Date 08/20/19 0000 - 08/20/19 2359 Shift [id number] 1859-4116 4114-1130 24 Hour Total INTAKE Shift Total(mL/kg) OUTPUT Urine(mL/kg/hr) 1800(3.3) 1800 Drains(mL/kg) 5(0.1) 5(0.1) Shift Total(mL/kg) 1805(26.5) 1805(26.5) Weight (kg) 68 68 68 68 PHYSICAL: Physical Exam Constitutional: General: She is not in acute distress. HENT: Head: Normocephalic and atraumatic. Right Ear: External ear normal. Left Ear: External ear normal. Nose: Nose normal. Mouth/Throat: Mouth: Mucous membranes are moist. Pharynx: Oropharynx is clear. Eyes: General: Right eye: No discharge. Left eye: No discharge. Extraocular Movements: Extraocular movements intact. Conjunctiva/sclera: Conjunctivae normal. Neck: Musculoskeletal: Neck supple. No neck rigidity or muscular tenderness. Cardiovascular: Rate and Rhythm: Normal rate and regular rhythm. Pulmonary: Effort: Pulmonary effort is normal. No respiratory distress. Breath sounds: No stridor. Chest: Chest wall: No tenderness. Abdominal: General: There is no distension. Palpations: Abdomen is soft. Tenderness: There is no abdominal tenderness. Musculoskeletal: General: Tenderness present. No swelling. Skin: General: Skin is warm and dry. Coloration: Skin is not jaundiced. Comments: Vac left thigh Dressing c/d/i. vioptix in place Neurological: General: No focal deficit present. Mental Status: She is alert and oriented to person, place, and time. Comments: Motor sensory intact Psychiatric: Mood and Affect: Mood normal. Behavior: Behavior normal. / / / Data Review Data CBC with Differential: Lab Results Component Value Date WBC 6.8 08/20/2019 WBC 7.3 09/01/2015 RBC 2.93 08/20/2019 HGB 9.0 08/20/2019 HCT 25.9 08/20/2019 PLT 230 08/20/2019 CMP: Lab Results Component Value Date NA 135 08/20/2019 K 3.9 08/20/2019 CL 100 08/20/2019 CO2 29 08/20/2019 BUN 11 08/20/2019 CREATININE 0.56 08/20/2019 GFRAA >60 09/01/2015 AGRATIO 1.3 09/01/2015 LABGLOM >60 09/01/2015 GLUCOSE 96 08/20/2019 PROT 7.3 05/14/2018 LABALBU 3.5 08/17/2019 CALCIUM 9.1 08/20/2019 BILITOT 0.7 05/14/2018 ALKPHOS 95 05/14/2018 AST 35 05/14/2018 ALT 48 05/14/2018 BMP: Hepatic Function Panel:Ionized Calcium: No results found for: IONCA Magnesium: Lab Results Component Value Date MG 1.9 08/20/2019 Phosphorus: Lab Results Component Value Date PHOS 3.8 08/17/2019 PT/INR: Lab Results Component Value Date PROTIME 10.4 08/16/2019 INR 1.0 08/16/2019 PTT: No results found for: APTT[APTT Last 3 Troponin: Lab Results Component Value Date TROPONINI <0.012 08/14/2019 TROPONINI <0.017 05/11/2015 Urine Culture: No components found for: CURINE Blood Culture: No components found for: CBLOOD, CFUNGUSBL Blood Culture from Central Line: No components found for: CBLOODLN Stool Culture: No components found for: CSTOOL Sputum Culture: No components found for: CSPUTUM Sputum Culture for AFB: No components found for: CAFBSM Wound Culture: Corynebacterium Patient Active Problem List Diagnosis ? Post-traumatic headache ? Depression ? Anxiety ? Chronic pelvic pain in female ? Endometriosis determined by laparoscopy ? Family history of breast cancer in mother ? Increased risk of breast cancer ? Closed torus fracture of lower end of left tibia ? Wound dehiscence ? 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 Subacute osteomyelitis of left tibia (HCC) ? Open wound of left ankle ? Sequela of Corynebacterium infection ? Hardware complicating wound infection (HCC) ? Acute blood loss anemia ? Hyponatremia ASSESSMENT: This is a 33 y.o. female with osteomyelitis of LLE s/p ALT free flap from R thigh to LLE 08/16 PLAN: Neuro/Spine: - tylenol scheduled - [place] - add toradol today -dilaudid prn breakthrough - home prozac HEENT: - no issues Cardiovascular: - ASA 325mg daily - continue to monitor Pulmonary: - IS - duoneb prn - encourage deep breathing, coughing - RA FEN/GI: - senna - LR @125cc/hr - general diet - replace electrolytes as needed : - CrCl: 138 - continue sampson, monitor UOP Heme: - Hgb: 9.0 - no transfusion ID: - vancomycin BID per ID with plans for extended (6wk) course through 09/28/2019 - check vanc trough before next dose - OR clx corynebacterium Endo: - no issues Lines/Devices: - sampson out today - PIV Prophylaxis: DVT: lovenox Has DVT PPX been started? yes If no, why? lovenox GI: none Pressure Ulcer: none Musculoskeletal: - bedrest - q2hr flap checks -alex annegger to LLE - vioptix - wound vac to donor site WB Status: RUE:AT LUE: AT RLE: AT LLE: NWB Disposition: Transfer to floor ~~~~~~~~~~~~~~~~~~~~~~~~~~~~~~~~~~~~~~~~~~~~~~~~~~~~~~~~~~~ Attending physician addendum: I independently saw and evaluated the patient. I personally obtained the smith and critical portion ofthe history and physical exam. I reviewed and agree with the documentation above. I personally reviewed patient's labs and imaging studies. My findings agree with the above note except for any details corrected below. Patient Active Problem List Diagnosis ? Post-traumatic headache ? Depression ? Anxiety ? Chronic pelvic pain in female ? Endometriosis determined by laparoscopy ? Family history of breast cancer in mother ? Increased risk of breast cancer ? Closed torus fracture of lower end of left tibia ? Wound dehiscence ? 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 Subacute osteomyelitis of left tibia (HCC) ? Open wound of left ankle ? Sequela of Corynebacterium infection ? Hardware complicating wound infection (HCC) ? Acute blood loss anemia ? Hyponatremia OR by orthopedic surgery cancelled for today. Flap with good viability and tissue on=xygenation. Will d/c Oxycodone - intolerance, start [place] PRN, discuss with Plastic surgery initiation of Toradol for pain control, home Prozac, cont ASA, increase bowel regimen, d/c IVF, restart diet, d/c Sampson catheter, TOV. Stable for transfer to floor. Santi Aparicio MD P Fabio Clemons MD - 08/20/2019 8:04 AM EDT Plastic & Reconstructive Surgery S: Doing well, pain controlled. No nausea/V/F/CH. Surgical sites remain painful but controlled. NAEON per nursing. Vitals: 08/20/19 0600 BP: 114/69 Pulse: 83 Resp: 17 Temp: 98.2 ?F (36.8 ?C) SpO2: 98% O: Right thigh; prevena in place, drain output sanguinous, thigh compartments softer, no paresthesias in the foot, foot warm Left leg; dressing in place, flap soft, warm, cap refill 1-2 seconds, strong doppler signal appreciated both arterial and venous, Vioptix 67%, leg mildly elevated, SILT @ foot & toes, +toe wiggle WANG drain 75 cc A/P: 33 y.o. female POD3 s/p free right ALT to left leg wound -Plan for flap debulking 08/22, then orthopaedic definitive fixation to follow but timing TBD -Continue ABx per ID, on vanc -Continue daily ASA -Lovenox PPx -Ok for diet -Multimodal pain control -Continue bedrest -Keep left leg elevated -Continue alex hugger to left leg -Ok to transfer out of ICU to floor today -Discussed with Dr. Boris Camacho M.D. [id number] [phone] Carrington Ly MD - 08/20/2019 6:20 AM EDT [facility] ICU T[address] [place], [place] [id number] Dept: [phone] Loc: [phone] Adult Orthopaedic Service Patient Name: Denys Arriola Date of : 1985 Date: 08/20/19 Subjective: Doing well. Pain well controlled. Medications: ? FLUoxetine 20 mg Oral Daily ? acetaminophen 650 mg Oral 3 times per day ? enoxaparin 40 mg Subcutaneous Daily ? vancomycin 1,250 mg Intravenous Q12H ? aspirin 325 mg Oral Daily ? sennosides-docusate sodium 2 tablet Oral Daily ? lidocaine 1 % injection 5 mL Intradermal Once ? sodium chloride flush 10 mL Intravenous 2 times per day ? sodium chloride flush 10 mL Intravenous 2 times per day ? heparin flush 250 Units Intravenous 2 times per day ? sodium chloride flush 10 mL Intracatheter Q12H ? heparin flush 250 Units Intravenous Q12H ? sodium chloride flush 10 mL Intravenous 2 times per day Physical Exam: Vitals: 08/20/19 0600 BP: 114/69 Pulse: 83 Resp: 17 Temp: 98.2 ?F (36.8 ?C) SpO2: 98% Intake and Output Summary (Last 24 hours) at Date Time Intake/Output Summary (Last 24 hours) at 08/20/2019 0621 Last data filed at 08/20/2019 0543 Gross per 24 hour Intake 2023 ml Output 3805 ml Net -1782 ml LLE: -Splint c/d/i -Motor: Positive toe wiggle -BCR in toes -SILT in toes Labs: CBC with Differential: Lab Results Component Value Date WBC 6.8 08/20/2019 WBC 7.3 09/01/2015 RBC 2.93 08/20/2019 HGB 9.0 08/20/2019 HCT 25.9 08/20/2019 PLT 230 08/20/2019 MCV 88.2 08/20/2019 MCH 30.7 08/20/2019 MCHC 34.8 08/20/2019 RDW 13.4 08/20/2019 SEGSPCT 69.6% 09/01/2015 LYMPHOPCT 23.1 08/20/2019 MONOPCT 7.4 08/20/2019 MONOPCT 6.0% 09/01/2015 BASOPCT 0.2 08/20/2019 BASOPCT 0.5% 09/01/2015 MONOSABS 0.5 08/20/2019 MONOSABS 0.4 09/01/2015 LYMPHSABS 1.6 08/20/2019 LYMPHSABS 1.6 09/01/2015 EOSABS 0.2 08/20/2019 EOSABS 0.1 09/01/2015 BASOSABS 0.0 08/20/2019 BASOSABS <0.1 09/01/2015 Intra-operative cultures pending Gram stain: few molymorphonuclear cells/lpf, no organisms Rads: xrays reveal loss of alignment Assessment: 33 y.o. female I&D LLE with removal of hardware and application of wound vac and ALT flap Plan: -NWB LLE -Abx per ID -Flap Care per Plastics -Ice/elevate -PT/OT -Leave splint clean, dry, and intact -Continue home medication -Pain control per orthopaedic protocol -Intra-op cultures pending -DVT PPx per primary team. -okay for diet today -Will need stabilization later this week. Likely after flap has final debridement. Mame James MD - 08/19/2019 11:51 AM EDT [facility] - Infectious Diseases Attending Progress Note Subjective: Following for infected non union s/p HWR. Pt s/p ALT free flap from right thigh to LLE on 08/16. Awaiting ex fix with Ortho per chart, but pt states that was cancelled. Pt denies fevers, chills or sweats. No itching, rashes. Pt denies other complaints. Chart reviewed. Objective: Vitals: Patient Vitals for the past 24 hrs: BP Temp Temp src Pulse Resp SpO2 08/19/19 1100 129/81 99 ?F (37.2 ?C) ? 91 18 100 % 08/19/19 1000 119/89 98.8 ?F (37.1 ?C) ? 91 13 99 % 08/19/19 0900 113/76 98.6 ?F (37 ?C) ? 79 10 100 % 08/19/19 0800 119/71 98.6 ?F (37 ?C) ? 93 19 100 % 08/19/19 0700 ? 98.4 ?F (36.9 ?C) ? 78 11 98 % 08/19/19 0600 103/72 98.6 ?F (37 ?C) ? 90 12 95 % 08/19/19 0500 111/71 98.6 ?F (37 ?C) ? 91 16 97 % 08/19/19 0400 111/73 98.4 ?F (36.9 ?C) Bladder 92 12 100 % 08/19/19 0300 113/71 98.4 ?F (36.9 ?C) ? 88 11 100 % 08/19/19 0200 96/64 98.4 ?F (36.9 ?C) ? 88 13 97 % 08/19/19 0100 96/62 98.4 ?F (36.9 ?C) ? 91 10 97 % 08/19/19 0000 104/63 98.6 ?F (37 ?C) Bladder 100 12 96 % 08/18/19 2300 112/69 98.8 ?F (37.1 ?C) ? 104 19 98 % 08/18/19 2200 117/70 99.1 ?F (37.3 ?C) ? 95 17 100 % 08/18/19 2100 110/69 98.6 ?F (37 ?C) ? 92 18 98 % 08/18/19 2000 129/74 98.6 ?F (37 ?C) Bladder 90 15 99 % 08/18/19 1900 103/64 98.4 ?F (36.9 ?C) ? 90 10 100 % 08/18/19 1800 96/61 98.6 ?F (37 ?C) ? 92 10 96 % 08/18/19 1700 ? 98.8 ?F (37.1 ?C) ? 96 9 95 % 08/18/19 1600 112/65 98.6 ?F (37 ?C) ? 95 16 95 % 08/18/19 1500 120/83 99 ?F (37.2 ?C) ? 105 13 98 % 08/18/19 1400 129/77 98.4 ?F (36.9 ?C) ? 105 13 99 % 08/18/19 1300 114/71 98.4 ?F (36.9 ?C) ? 92 20 99 % 08/18/19 1200 126/80 98.1 ?F (36.7 ?C) ? 103 11 100 % Physical Exam Vitals signs and nursing note reviewed. Constitutional: General: She is not in acute distress. Appearance: Normal appearance. She is normal weight. She is not ill-appearing, toxic-appearing or diaphoretic. HENT: Head: Normocephalic and atraumatic. Right Ear: External ear normal. Left Ear: External ear normal. Nose: Nose normal. No congestion or rhinorrhea. Eyes: General: No scleral icterus. Right eye: No discharge. Left eye: No discharge. Conjunctiva/sclera: Conjunctivae normal. Musculoskeletal: Normal range of motion. General: No swelling, deformity or signs of injury. Right lower leg: No edema. Comments: LEs under alex annegger Skin: General: Skin is warm and dry. Coloration: Skin is not jaundiced. Findings: No bruising, erythema or rash. Neurological: Mental Status: She is alert and oriented to person, place, and time. Mental status is at baseline. Psychiatric: Mood and Affect: Mood normal. Behavior: Behavior normal. Thought Content: Thought content normal. Judgment: Judgment normal. Labs: Component Value Date/Time NA 134 (L) 08/19/2019358 K 3.5 08/19/2019358 CL 100 08/19/2019358 CO2 31 (H) 08/19/2019358 BUN 11 08/19/2019358 CREATININE 0.64 08/19/2019358 GLUCOSE 104 (H) 08/19/2019358 CALCIUM 8.4 08/19/2019358 PROT 7.3 05/14/2018 0840 LABALBU 3.5 08/17/2019 1830 BILITOT 0.7 05/14/2018 0840 ALKPHOS 95 05/14/2018 0840 AST 35 05/14/2018 0840 ALT 48 05/14/2018 0840 Component Value Date/Time WBC 5.9 08/19/2019358 WBC 7.3 09/01/2015 1414 HGB 8.4 (L) 08/19/2019 035 HCT 24.3 (L) 08/19/2019358 PLT 207 08/19/2019358 GRANULOCYTES 57.3 08/19/2019358 LYMPHOPCT 31.4 08/19/2019358 MONOPCT 8.1 08/19/2019358 MONOPCT 6.0% 09/01/2015 1414 LABEOS 2.8 08/19/2019358 BASOPCT 0.4 08/19/2019358 BASOPCT 0.5% 09/01/2015 1414 NEUTROABS 3.4 08/19/2019 0359 NEUTROABS 5.1 09/01/2015 1414 Micro: 08/13 OR cultures: Corynebacterium striatum vanc 0.50 Lines: PICC Radiography/Echo/Other: 08/14 CTA LE Arterial runoff within left lower extremity is delineated on the CT angiographic images. Evidence of fractures within the left ? 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 s/p HWR left tibia, fibula, partial excisionleft tibia secondary to infection, insertion of antibiotic mica spacer left tibia and application of wound vac, s/p free flap 2) h/o ankle fracture 03/2019 secondary to ice skating Plan: - continue vanc - check vanc trough before next dose - anticipate 6 weeks IV vancomycin; ends 09/28/2019 - ex fix with Ortho postponed - pt has PICC - OPAT scanned under Media tab Mame Stallings MD [facility], Everton Maldonado MD - 08/19/2019 10:24 AM EDT Daily Trauma Progress Note Resident 08/19/2019 10:24 AM Admit Date: 08/14/2019 MEDICATIONS: Current Facility-Administered Medications Medication Dose Route Frequency Provider Last Rate Last Dose ? HYDROmorphone (DILAUDID) injection 1 mg 1 mg Intravenous Q2H PRN Valencia Oakes MD 1 mg at 08/19/19 1016 Or ? HYDROmorphone (DILAUDID) injection 0.5 mg 0.5 mg Intravenous Q2H PRN Valencia Oakes MD 0.5 mgat 08/19/19 0513 ? enoxaparin (LOVENOX) injection 40 mg 40 mg Subcutaneous Daily Everton Cha MD 40 mg at 08/18/19 1102 ? vancomycin (VANCOCIN) 1,250 mg in dextrose 5 % 250 mL IVPB 1,250 mg Intravenous Q12H Alberto Rome, Stopped at 08/19/19 0944 ? acetaminophen (OFIRMEV) infusion 1,000 mg 1,000 mg Intravenous Q6H Alberto Rome, DO Stopped at 08/19/19 1002 ? lactated ringers infusion Intravenous Continuous Alberto Rome, DO 125 mL/hr at 08/19/19 0744 ? aspirin EC tablet 325 mg 325 mg Oral Daily lAberto Rome, DO 325 mg at 08/18/19 1102 ? ipratropium-albuterol (DUONEB) nebulizer solution 1 ampule 1 ampule Inhalation Q4H PRN Valencia Oakes MD ? sennosides-docusate sodium (SENOKOT-S) 8.6-50 MG tablet 2 tablet 2 tablet Oral Daily Alberto Rome, DO 2 tablet at 08/16/19 0823 ? iopamidol (ISOVUE-370) 76 % injection 100 mL 100 mL Intravenous ONCE PRN Alberto Rome, DO ? lidocaine 1 % injection 5 mL 5 mL Intradermal Once Alberto Rome, DO ? sodium chloride flush 0.9 % injection 10 mL 10 mL Intravenous 2 times per day Alberto Rome, DO ? sodium chloride flush 0.9 % injection 10 mL 10 mL Intravenous 2 times per day Alberto Rome DO 10mL at 08/19/19 0755 ? sodium chloride flush 0.9 % injection 10 mL 10 mL Intravenous PRN Alberto Rome, DO ? heparin flush 100 UNIT/ML injection 250 Units 250 Units Intravenous 2 times per day Alberto Rome,DO 250 Units at 08/19/19 0751 ? heparin flush 100 UNIT/ML injection 250 Units 250 Units Intravenous PRN Alberto Rome, DO ? sodium chloride flush 0.9 % injection 10 mL 10 mL Intracatheter Q12H Alberto Rome, DO 10 mL at 08/18/19 0456 ? heparin flush 100 UNIT/ML injection 250 Units 250 Units Intravenous Q12H Alberto Rome, DO 250 Units at 08/19/19 0514 ? sodium chloride flush 0.9 % injection 10 mL 10 mL Intracatheter PRN Alberto Rome, DO ? heparin flush 100 UNIT/ML injection 250 Units 250 Units Intracatheter PRN Alberto Rome, DO ? sodium chloride flush 0.9 % injection 10 mL 10 mL Intravenous 2 times per day Alberto Rome DO 10mL at 08/17/19 2101 ? sodium chloride flush 0.9 % injection 10 mL 10 mL Intravenous PRN Alberto Rome, DO ? ondansetron (ZOFRAN) injection 4 mg 4 mg Intravenous Q6H PRN Alberto Rome, DO ARE THERE PERTINENT UPDATES TO PAST,FAMILY, OR SOCIAL HISTORY?: No Subjective: Pain control issues this AM No other complaints No fevers or chills Review of Systems Constitutional: Positive for activity change. Negative for chills and fever. HENT: Negative for tinnitus, trouble swallowing and voice change. Eyes: Negative for discharge and itching. Respiratory: Negative for shortness of breath, wheezing and stridor. Cardiovascular: Negative for chest pain. Gastrointestinal: Negative for abdominal pain, diarrhea, nausea and vomiting. Genitourinary: Negative for dysuria, flank pain and hematuria. Musculoskeletal: Positive for arthralgias. Negative for back pain, neck pain and neck stiffness. Skin: Positive for wound. Negative for rash. Neurological: Positive for weakness. Negative for dizziness, tremors, numbness and headaches. Hematological: Negative for adenopathy. Bruises/bleeds easily. Psychiatric/Behavioral: Negative for agitation, behavioral problems and confusion. Objective: Patient Vitals for the past 24 hrs: BP Temp Temp src Pulse Resp SpO2 08/19/19 1000 119/89 98.8 ?F (37.1 ?C) ? 91 13 99 % 08/19/19 0900 113/76 98.6 ?F (37 ?C) ? 79 10 100 % 08/19/19 0800 119/71 98.6 ?F (37 ?C) ? 93 19 100 % 08/19/19 0700 ? 98.4 ?F (36.9 ?C) ? 78 11 98 % 08/19/19 0600 103/72 98.6 ?F (37 ?C) ? 90 12 95 % 08/19/19 0500 111/71 98.6 ?F (37 ?C) ? 91 16 97 % 08/19/19 0400 111/73 98.4 ?F (36.9 ?C) Bladder 92 12 100 % 08/19/19 0300 113/71 98.4 ?F (36.9 ?C) ? 88 11 100 % 08/19/19 0200 96/64 98.4 ?F (36.9 ?C) ? 88 13 97 % 08/19/19 0100 96/62 98.4 ?F (36.9 ?C) ? 91 10 97 % 08/19/19 0000 104/63 98.6 ?F (37 ?C) Bladder 100 12 96 % 08/18/19 2300 112/69 98.8 ?F (37.1 ?C) ? 104 19 98 % 08/18/19 2200 117/70 99.1 ?F (37.3 ?C) ? 95 17 100 % 08/18/19 2100 110/69 98.6 ?F (37 ?C) ? 92 18 98 % 08/18/19 2000 129/74 98.6 ?F (37 ?C) Bladder 90 15 99 % 08/18/19 1900 103/64 98.4 ?F (36.9 ?C) ? 90 10 100 % 08/18/19 1800 96/61 98.6 ?F (37 ?C) ? 92 10 96 % 08/18/19 1700 ? 98.8 ?F (37.1 ?C) ? 96 9 95 % 08/18/19 1600 112/65 98.6 ?F (37 ?C) ? 95 16 95 % 08/18/19 1500 120/83 99 ?F (37.2 ?C) ? 105 13 98 % 08/18/19 1400 129/77 98.4 ?F (36.9 ?C) ? 105 13 99 % 08/18/19 1300 114/71 98.4 ?F (36.9 ?C) ? 92 20 99 % 08/18/19 1200 126/80 98.1 ?F (36.7 ?C) ? 103 11 100 % 08/18/19 1100 112/69 98.2 ?F (36.8 ?C) ? 96 10 100 % Date 08/19/19 0000 - 08/19/19 2359 Shift 6430-7285 8126-2172 3764-1824 24 Hour Total INTAKE I.V.(mL/kg) 1441(21.2) 1441(21.2) Shift Total(mL/kg) 1441(21.2) 1441(21.2) OUTPUT Urine(mL/kg/hr) 625(1.1) 450 1075 Drains(mL/kg) 2(0) 2(0) Shift Total(mL/kg) 627(9.2) 450(6.6) 1077(15.8) Weight (kg) 68 68 68 68 PHYSICAL: Physical Exam Constitutional: General: She is not in acute distress. HENT: Head: Normocephalic and atraumatic. Right Ear: External ear normal. Left Ear: External ear normal. Nose: Nose normal. Mouth/Throat: Mouth: Mucous membranes are moist. Pharynx: Oropharynx is clear. Eyes: General: Right eye: No discharge. Left eye: No discharge. Extraocular Movements: Extraocular movements intact. Conjunctiva/sclera: Conjunctivae normal. Neck: Musculoskeletal: Neck supple. No neck rigidity or muscular tenderness. Cardiovascular: Rate and Rhythm: Normal rate and regular rhythm. Pulmonary: Effort: Pulmonary effort is normal. No respiratory distress. Breath sounds: No stridor. Chest: Chest wall: No tenderness. Abdominal: General: There is no distension. Palpations: Abdomen is soft. Tenderness: There is no abdominal tenderness. Musculoskeletal: General: Tenderness present. No swelling. Skin: General: Skin is warm and dry. Coloration: Skin is not jaundiced. Comments: Vac left thigh Dressing c/d/i. vioptix in place Neurological: General: No focal deficit present. Mental Status: She is alert and oriented to person, place, and time. Comments: Motor sensory intact Psychiatric: Mood and Affect: Mood normal. Behavior: Behavior normal. / / / Data Review Data CBC with Differential: Lab Results Component Value Date WBC 5.9 08/19/2019 WBC 7.3 09/01/2015 RBC 2.72 08/19/2019 HGB 8.4 08/19/2019 HCT 24.3 08/19/2019 PLT 207 08/19/2019 CMP: Lab Results Component Value Date NA 134 08/19/2019 K 3.5 08/19/2019 CL 100 08/19/2019 CO2 31 08/19/2019 BUN 11 08/19/2019 CREATININE 0.64 08/19/2019 GFRAA >60 09/01/2015 AGRATIO 1.3 09/01/2015 LABGLOM >60 09/01/2015 GLUCOSE 104 08/19/2019 PROT 7.3 05/14/2018 LABALBU 3.5 08/17/2019 CALCIUM 8.4 08/19/2019 BILITOT 0.7 05/14/2018 ALKPHOS 95 05/14/2018 AST 35 05/14/2018 ALT 48 05/14/2018 BMP: Hepatic Function Panel:Ionized Calcium: No results found for: IONCA Magnesium: Lab Results Component Value Date MG 1.9 08/19/2019 Phosphorus: Lab Results Component Value Date PHOS 3.8 08/17/2019 PT/INR: Lab Results Component Value Date PROTIME 10.4 08/16/2019 INR 1.0 08/16/2019 PTT: No results found for: APTT[APTT Last 3 Troponin: Lab Results Component Value Date TROPONINI <0.012 08/14/2019 TROPONINI <0.017 05/11/2015 Urine Culture: No components found for: CURINE Blood Culture: No components found for: CBLOOD, CFUNGUSBL Blood Culture from Central Line: No components found for: CBLOODLN Stool Culture: No components found for: CSTOOL Sputum Culture: No components found for: CSPUTUM Sputum Culture for AFB: No components found for: CAFBSM Wound Culture: Corynebacterium Patient Active Problem List Diagnosis ? Post-traumatic headache ? Depression ? Anxiety ? Chronic pelvic pain in female ? Endometriosis determined by laparoscopy ? Family history of breast cancer in mother ? Increased risk of breast cancer ? Closed torus fracture of lower end of left tibia ? Wound dehiscence ? 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 Subacute osteomyelitis of left tibia (HCC) ? Open wound of left ankle ? Sequela of Corynebacterium infection ? Hardware complicating wound infection (HCC) ? Acute blood loss anemia ? Hyponatremia ASSESSMENT: This is a 33 y.o. female with osteomyelitis of LLE s/p ALT free flap from R thigh to LLE 08/16 PLAN: Neuro/Spine: - tylenol 1g q6hr - oxycodone prn -dilaudid prn breakthrough - discuss possible toradol if pain not controlled - resume home prozac HEENT: - no issues Cardiovascular: - ASA 325mg daily - continue to monitor Pulmonary: - IS - duoneb prn - encourage deep breathing, coughing - RA FEN/GI: - senna - LR @125cc/hr - NPO for now, plan for diet later today - replace electrolytes as needed : - CrCl: 120 - continue sampson, monitor UOP Heme: - Hgb: 8.4 - no transfusion ID: - vancomycin BID per ID with plans for extended (6wk) course - OR clx corynebacterium Endo: - no issues Lines/Devices: - sampson - PIV Prophylaxis: DVT: lovenox today Has DVT PPX been started? yes If no, why? Plan for OR today, plan to start DVT ppx today GI: none Pressure Ulcer: none Musculoskeletal: - bedrest - q1hr flap checks -alex hugger to LLE - vioptix - wound vac to donor site - OR today [facility] WB Status: RUE:AT LUE: AT RLE: AT LLE: NWB Disposition: T2 stepdown Associated attestation - Josse Aparicio MD - 08/19/2019 4:37 PM EDT ~~~~~~~~~~~~~~~~~~~~~~~~~~~~~~~~~~~~~~~~~~~~~~~~~~~~~~~~~~~ Attending physician addendum: I independently saw and evaluated the patient. I personally obtained the smith and critical portion ofthe history and physical exam. I reviewed and agree with the documentation below. I personally reviewed patient's labs and imaging studies. My findings agree with the below note except for any details corrected. 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 Drain output down to 17 from 75 ml yesterday. Mild hyponatemia, tolerates diet, + BM yesterday. Flap with good tissue oxygenation / viability. Vancomycin dose adjusted for low trough - 11.7, ID followingFrancine Stephens spatial frame plans per orthopedic surgery initially planned for today now rescheduled for tomorrow. Will start diet and keep NPO past midnight. Will start Oxycodone PRN, reschedule IV to PO Acetaminophen, restart home Prozac, cotn ASA, d/c Sampson catheter, TOV, cont q1h flap checks and step down care. Discuss with Plastic and orthopedic surgery initiation of Toradol Santi Aparicio MD P Jesse Burnham MD - 08/19/2019 9:07 AM EDT Plastic & Reconstructive Surgery S: Doing well, pain controlled. No nausea/V/F/CH. Complaints of feeling hot, especially to the lowerextremities with alex hugger. NAEON per nursing. Vitals: 08/19/19 0800 BP: 119/71 Pulse: 93 Resp: 19 Temp: 98.6 ?F (37 ?C) SpO2: 100% O: Right thigh; prevena in place, drain output sanguinous, thigh is softer, no paresthesias in the foot, foot warm Left leg; dressing in place, flap soft, warm, cap refill 1-2 seconds, strong doppler signal appreciated (triphasic), Vioptix 65%, leg mildly elevated, Able to move and flex toes, sensation intact WANG drain 75 cc A/P: 33 y.o. female POD2 s/p free right ALT to left leg wound -Plan for OR today with ortho for ex-fix -Postop anemia - improved with blood product, given 2:2:1, monitor for now, HDS -Continue ABx for OM, vanc -Continue daily ASA -Lovenox PPx -NPO for surgery with ortho today -IVF @ 125 -Multimodal pain control -Continue bedrest -Keep left leg elevated -Continue alex hugger to left leg -Continue Q1 hour flap checks and Vioptix (Vioptix through 08/19) -To remain in SICU today - appreciate SICU management -Will plan to take back to de-fat on Monday -Discussed with Dr. Burnham -2 Department of General Surgery #[id number] Attending NOte: Patient seen and independently evaluated Agree as above Plan on inset +/- STSG on Monday Ok to dc vioptix on Monday rounds Q4 flap checks Regular diet Transfer out of ICU Jesse Burnham Carrington Ly MD - 08/19/2019 6:23 AM EDT [facility] ICU T2 [address] [facility] [address] Dept: [phone] Loc: [phone] Adult Orthopaedic Service Patient Name: Denys Arriola Date of : 1985 Date: 08/19/19 Subjective: Doing well. Pain well controlled. Medications: ? enoxaparin 40 mg Subcutaneous Daily ? vancomycin 1,250 mg Intravenous Q12H ? acetaminophen 1,000 mg Intravenous Q6H ? aspirin 325 mg Oral Daily ? sennosides-docusate sodium 2 tablet Oral Daily ? lidocaine 1 % injection 5 mL Intradermal Once ? sodium chloride flush 10 mL Intravenous 2 times per day ? sodium chloride flush 10 mL Intravenous 2 times per day ? heparin flush 250 Units Intravenous 2 times per day ? sodium chloride flush 10 mL Intracatheter Q12H ? heparin flush 250 Units Intravenous Q12H ? sodium chloride flush 10 mL Intravenous 2 times per day Physical Exam: Vitals: 08/19/19 0500 BP: 111/71 Pulse: 91 Resp: 16 Temp: 98.6 ?F (37 ?C) SpO2: 97% Intake and Output Summary (Last 24 hours) at Date Time Intake/Output Summary (Last 24 hours) at 08/19/2019 0623 Last data filed at 08/19/2019 0520 Gross per 24 hour Intake 3101 ml Output 3617 ml Net -516 ml LLE: -Splint c/d/i -Motor: Positive toe wiggle -BCR in toes -SILT in toes Labs: CBC with Differential: Lab Results Component Value Date WBC 5.9 08/19/2019 WBC 7.3 09/01/2015 RBC 2.72 08/19/2019 HGB 8.4 08/19/2019 HCT 24.3 08/19/2019 PLT 207 08/19/2019 MCV 89.2 08/19/2019 MCH 30.8 08/19/2019 MCHC 34.6 08/19/2019 RDW 13.6 08/19/2019 SEGSPCT 69.6% 09/01/2015 LYMPHOPCT 31.4 08/19/2019 MONOPCT 8.1 08/19/2019 MONOPCT 6.0% 09/01/2015 BASOPCT 0.4 08/19/2019 BASOPCT 0.5% 09/01/2015 MONOSABS 0.5 08/19/2019 MONOSABS 0.4 09/01/2015 LYMPHSABS 1.9 08/19/2019 LYMPHSABS 1.6 09/01/2015 EOSABS 0.2 08/19/2019 EOSABS 0.1 09/01/2015 BASOSABS 0.0 08/19/2019 BASOSABS <0.1 09/01/2015 Intra-operative cultures pending Gram stain: few molymorphonuclear cells/lpf, no organisms Rads: xrays reveal loss of alignment Assessment: 33 y.o. female I&D LLE with removal of hardware and application of wound vac and ALT flap Plan: -NWB LLE -Abx per ID -Flap Care per Plastics -Ice/elevate -PT/OT -Leave splint clean, dry, and intact -Continue home medication -Pain control per orthopaedic protocol -Intra-op cultures pending -DVT PPx per primary team. 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 * I independently saw the above patient and reviewed the imaging, labs, vital signs; I performed a physical exam and ROS on 08/18/[address] Cha's note. My findings agree with Dr. Cha's note on 08/18/19 except for any details corrected below. Patient is without complaints Discussed with Dr. Burnham; plan to keep in ICU for frequent flap checks. No further transfusion at this point. Start dvt chemoprophylaxis. Alexy Thompson MD Pg [id number] oblete, Felix Pina MD - 08/18/2019 11:18 AM EDT [facility] - Infectious Diseases Attending Progress Note Subjective: No acute envets- afebrile, had PRS perform ALT free flap to LLE wound defect yesterday. More donor site pain today. No other complaints. Objective: Vitals: Patient Vitals for the past 24 hrs: BP Temp Temp src Pulse Resp SpO2 Height 08/18/19 1100 112/69 98.2 ?F (36.8 ?C) ? 96 10 100 % ? 08/18/19 1000 129/89 98.4 ?F (36.9 ?C) ? 111 17 100 % ? 08/18/19 0942 ? 5' 7 (1.702 m) 08/18/19 0900 115/80 98.4 ?F (36.9 ?C) ? 96 15 99 % ? 08/18/19 0800 118/75 98.2 ?F (36.8 ?C) Bladder 95 11 98 % ? 08/18/19 0700 113/73 98.1 ?F (36.7 ?C) ? 99 11 99 % ? 08/18/19 0600 120/72 98.2 ?F (36.8 ?C) ? 96 16 100 % ? 08/18/19 0515 ? 98.2 ?F (36.8 ?C) ? 84 13 95 % ? 08/18/19 0500 (!) 104/56 98.1 ?F (36.7 ?C) ? 81 10 98 % ? 08/18/19 0415 ? 97.9 ?F (36.6 ?C) ? 97 16 99 % ? 08/18/19 0400 113/63 98.1 ?F (36.7 ?C) Bladder 104 13 99 % ? 08/18/19 0330 116/75 97.9 ?F (36.6 ?C) ? 92 14 ? ? 08/18/19 0300 ? 97.7 ?F (36.5 ?C) ? 96 15 100 % ? 08/18/19 0115 113/64 97.7 ?F (36.5 ?C) ? 90 18 ? ? 08/18/19 0100 107/67 97.9 ?F (36.6 ?C) ? 85 11 98 % ? 08/18/19 0038 103/62 97.9 ?F (36.6 ?C) ? 94 12 ? ? 08/17/19 2339 ? 98.1 ?F (36.7 ?C) Bladder 81 8 99 % ? 08/17/19 2338 ? 98.1 ?F (36.7 ?C) Bladder 95 13 98 % ? 08/17/19 2323 110/62 98.1 ?F (36.7 ?C) ? 94 16 ? ? 08/17/19 2300 110/62 98.1 ?F (36.7 ?C) ? 89 10 99 % ? 08/17/19 2100 107/64 98.4 ?F (36.9 ?C) Bladder 98 13 100 % ? 08/17/19 2000 123/69 ? ? 107 19 100 % ? 08/17/19 1900 112/75 ? ? 105 9 99 % ? 08/17/19 1820 130/77 97 ?F (36.1 ?C) Temporal 108 15 99 % ? 08/17/19 1700 (!) 125/56 98.2 ?F (36.8 ?C) Temporal 110 16 ? ? 08/17/19 1630 (!) 121/58 99 ?F (37.2 ?C) Temporal 112 16 ? ? 08/17/19 1600 129/78 ? ? 98 16 100 % ? 08/17/19 1530 126/77 ? ? 99 16 98 % ? 08/17/19 1515 124/79 ? ? 104 16 ? ? 08/17/19 1500 130/74 97.5 ?F (36.4 ?C) CORE 96 16 98 % ? Physical Exam Vitals signs reviewed. Constitutional: Appearance: Normal appearance. She is not ill-appearing. Musculoskeletal: General: Swelling (to legs, LLE dressing, elevated.) and tenderness present. Skin: Findings: No erythema or rash. Neurological: General: No focal deficit present. Mental Status: She is alert. Psychiatric: Mood and Affect: Mood normal. Thought Content: Thought content normal. Labs: Component Value Date/Time NA 134 (L) 08/18/2019 0531 K 3.9 08/18/2019 0531 CL 100 08/18/2019 0531 CO2 27 08/18/2019 0531 BUN 13 08/18/2019 0531 CREATININE 0.52 08/18/2019 0531 GLUCOSE 95 08/18/2019 0531 CALCIUM 8.4 08/18/2019 0531 PROT 7.3 05/14/2018 0840 LABALBU 3.5 08/17/2019 1830 BILITOT 0.7 05/14/2018 0840 ALKPHOS 95 05/14/2018 0840 AST 35 05/14/2018 0840 ALT 48 05/14/2018 0840 Component Value Date/Time WBC 7.3 08/18/2019 0531 WBC 7.3 09/01/2015 1414 HGB 7.9 (L) 08/18/2019 0531 HCT 22.9 (L) 08/18/2019 0531 PLT 188 08/18/2019 0531 GRANULOCYTES 79.7 08/18/2019 0531 LYMPHOPCT 10.0 (L) 08/18/2019 0531 MONOPCT 10.0 08/18/2019 0531 MONOPCT 6.0% 09/01/2015 1414 LABEOS 0.1 (L) 08/18/2019 0531 BASOPCT 0.2 08/18/2019 0531 BASOPCT 0.5% 09/01/2015 1414 NEUTROABS 5.8 08/18/2019 0531 NEUTROABS 5.1 09/01/2015 1414 Micro: 3/ tissue cx x3: Corynebacterium striatum S-Vanoc R- Ceftriaxone, PCN; anaerobic cx: neg Lines: PICC Radiography/Echo/Other: 08/16 XR ankle L: FINDINGS: ? Casting material overlies the lower leg through the foot. There is redemonstration of a comminuted fracture of the distal tibia and distal fibula. From the limited view, there does appears to be near anatomic alignment. There is either graft or cement material in the distal tibia. The ankle joint appears to be in normal articulation. The bony mineralization is diffusely decreased. ? Numerous surgical clips are identified. Report Left tibia and fibula ? CLINICAL INDICATION: Incorrect intraoperative content. Missing plastic clip quintana. ? Single view was obtained and an approximately a lateral projection. Metallic wire is noted with the electrode. Multiple surgical clips and skin clips are noted and there is also radiopaque catheter is draining visible in the field. There is distortion of the distal tibia consistent with fracture. There also appears to be overlying sponge. No definite foreign body is identified that would appear to be a plastic clamp. Antimicrobials, Start/End Dates: vancomycin 1.0 to 1.25 q 12 ( trough on 08/16 was 11.7) Impression: LLE distial tibial fracture with nonunion, wound dehiscence, exposed hardware s/p I+D, VENKATA on 08/13, followed by ALT fee flap yesterday. Postop infection with Corynebacterium striatum S- Vancomycin. Needs prolonged course up to [address] already in place. Plan: As above, Vanco already dosed up to Reach goal 15-20. Dr. Stallings back for ID tomorrow. Jesse Schneider MD - 08/18/2019 8:07 AM EDT Plastic & Reconstructive Surgery S: Doing well, pain controlled. No nausea. Symptomatic anemia overnight., Transfused due to Hgb of 6.1 overnight Vitals: 08/18/19 0700 BP: 113/73 Pulse: 99 Resp: 11 Temp: 98.1 ?F (36.7 ?C) SpO2: 99% O: Right thigh; prevena in place, drain output sanguinous, thigh is softer, no paresthesias in the foot, foot warm Left leg; dressing in place, flap soft, warm, cap refill 1-2 seconds, strong doppler signal appreciated, Vioptix 62%, leg elevated Able to move and flex toes, Sensation intact WANG drain 75 cc A/P: 33 y.o. female POD1 s/p free right ALT to left leg wound, doing well, postop anemia overnight requiring blood products Postop anemia - improved with blood product, given 2:2:1, monitor for now, HDS Continue ABx for OM, vanc Continue daily ASA Start lovenox PPX later today if Hgb remains stable NPO, start clears if Hgb remains stable IVF @ 125, consider decreasing with adequate UOP Multimodal pain control Continue bedrest Keep left leg elevated Continue INOCENCIA hugger to left leg Continue Q1 hour flap checks and Vioptix To remain in SICU today Santi Rome, DO PGY Plastic and Reconstructive Surgery 08/18/2019, 8:07 AM Attending note Agree as above UOP god, Hgb improved with transfusion AVSS Ok for DVT prophylaxis and ASA daily as per plastics-->Ortho may request hold for placement of TSP on Monday Dressing taken down, Fascia inset with skin paddle and subq fat, will plan to de-fat and convert to fascial flap with graft from flap on Monday Vioptix until Monday (POD 3) Ok for diet Am labs Can go to floor post op tomorrow from PRS standpoint, Continue flap checks Appreciate SICU mngnmnt Carrington Ly MD - 08/18/2019 5:53 AM EDT [facility] ICU T2 [address] [place] [address] Dept: [phone] Loc: [phone] Adult Orthopaedic Service Patient Name: Denys Arriola Date of : 1985 Date: 08/18/19 Subjective: Doing well. Pain well controlled. Medications: ? vancomycin 1,250 mg Intravenous Q12H ? acetaminophen 1,000 mg Intravenous Q6H ? aspirin 325 mg Oral Daily ? sennosides-docusate sodium 2 tablet Oral Daily ? lidocaine 1 % injection 5 mL Intradermal Once ? sodium chloride flush 10 mL Intravenous 2 times per day ? sodium chloride flush 10 mL Intravenous 2 times per day ? heparin flush 250 Units Intravenous 2 times per day ? sodium chloride flush 10 mL Intracatheter Q12H ? heparin flush 250 Units Intravenous Q12H ? sodium chloride flush 10 mL Intravenous 2 times per day Physical Exam: Vitals: 08/18/19 0515 BP: Pulse: 84 Resp: 13 Temp: 98.2 ?F (36.8 ?C) SpO2: 95% Intake and Output Summary (Last 24 hours) at Date Time Intake/Output Summary (Last 24 hours) at 08/18/2019 0553 Last data filed at 08/18/2019 0500 Gross per 24 hour Intake 365 ml Output 1410 ml Net -1045 ml LLE: -Splint c/d/i -Motor: Positive toe wiggle -BCR in toes -SILT in toes Labs: CBC with Differential: Lab Results Component Value Date WBC 16.6 08/17/2019 WBC 7.3 09/01/2015 RBC 2.56 08/17/2019 HGB 6.1 08/17/2019 HCT 17.6 08/17/2019 PLT 265 08/17/2019 MCV 87.4 08/17/2019 MCH 29.5 08/17/2019 MCHC 33.8 08/17/2019 RDW 13.2 08/17/2019 SEGSPCT 69.6% 09/01/2015 LYMPHOPCT 3.7 08/17/2019 MONOPCT 3.5 08/17/2019 MONOPCT 6.0% 09/01/2015 BASOPCT 0.1 08/17/2019 BASOPCT 0.5% 09/01/2015 MONOSABS 0.6 08/17/2019 MONOSABS 0.4 09/01/2015 LYMPHSABS 0.6 08/17/2019 LYMPHSABS 1.6 09/01/2015 EOSABS 0.0 08/17/2019 EOSABS 0.1 09/01/2015 BASOSABS 0.0 08/17/2019 BASOSABS <0.1 09/01/2015 Intra-operative cultures pending Gram stain: few molymorphonuclear cells/lpf, no organisms Rads: xrays reveal loss of alignment Assessment: 33 y.o. female I&D LLE with removal of hardware and application of wound vac and ALT flap Plan: -NWB LLE -Abx per ID -Flap Care per Plastics -Ice/elevate -PT/OT -Leave splint clean, dry, and intact -Continue home medication -Pain control per orthopaedic protocol -Intra-op cultures pending -DVT PPx per primary team. -NPO at midnight for application of Darrell Spatial Frame -Added -Consent-P -discussed with Dr. Davila and Dr. Burnham. Everton Ugalde MD - 08/18/2019 3:52 AM EDT Daily Trauma Progress Note Resident 08/18/2019 3:52 AM Admit Date: 08/14/2019 PREVIOUS 24 HOUR EVENTS: Or 08/16 for LLE s/p ALT free flap from R thigh to LLE MEDICATIONS: Current Facility-Administered Medications Medication Dose Route Frequency Provider Last Rate Last Dose ? vancomycin (VANCOCIN) 1,250 mg in dextrose 5 % 250 mL IVPB 1,250 mg Intravenous Q12H Alberto Rome, DO Stopped at 08/17/19 2334 ? acetaminophen (OFIRMEV) infusion 1,000 mg 1,000 mg Intravenous Q6H Alberto Rome DO 400 mL/hr at 08/18/19 0312 1,000 mg at 08/18/19 0312 ? lactated ringers infusion Intravenous Continuous Alberto Rome, DO 125 mL/hr at 08/17/192004 ? aspirin EC tablet 325 mg 325 mg Oral Daily Alberto Rome DO 325 mg at 08/17/192000 ? HYDROmorphone (DILAUDID) injection 0.5 mg 0.5 mg Intravenous Q2H PRN Valencia Oakes MD 0.5 mgat 08/17/19 2240 Or ? HYDROmorphone (DILAUDID) injection 1 mg 1 mg Intravenous Q3H PRN Valencia Oakes MD 1 mg at 08/18/19 0319 ? ipratropium-albuterol (DUONEB) nebulizer solution 1 ampule 1 ampule Inhalation Q4H PRN Valencia Oakes MD ? sennosides-docusate sodium (SENOKOT-S) 8.6-50 MG tablet 2 tablet 2 tablet Oral Daily Alberto Rome DO 2 tablet at 08/16/19 0823 ? iopamidol (ISOVUE-370) 76 % injection 100 mL 100 mL Intravenous ONCE PRN Alberto Rome DO ? lidocaine 1 % injection 5 mL 5 mL Intradermal Once Alberto Rome, DO ? sodium chloride flush 0.9 % injection 10 mL 10 mL Intravenous 2 times per day Alberto Rome, DO ? sodium chloride flush 0.9 % injection 10 mL 10 mL Intravenous 2 times per day Alberto Rome, DO ? sodium chloride flush 0.9 % injection 10 mL 10 mL Intravenous PRN Alberto Rome, DO ? heparin flush 100 UNIT/ML injection 250 Units 250 Units Intravenous 2 times per day Alberto Hernandezman,DO 250 Units at 08/17/192000 ? heparin flush 100 UNIT/ML injection 250 Units 250 Units Intravenous PRN Alberto Rome, DO ? sodium chloride flush 0.9 % injection 10 mL 10 mL Intracatheter Q12H Alberto Rome, DO 10 mL at 08/15/19 1837 ? heparin flush 100 UNIT/ML injection 250 Units 250 Units Intravenous Q12H Alberto Rome, DO 250 Units at 08/16/19 2224 ? sodium chloride flush 0.9 % injection 10 mL 10 mL Intracatheter PRN Alberto Rome, DO ? heparin flush 100 UNIT/ML injection 250 Units 250 Units Intracatheter PRN Alberto Rome, DO ? sodium chloride flush 0.9 % injection 10 mL 10 mL Intravenous 2 times per day Alberto Rome, DO 10mL at 08/17/19 2101 ? sodium chloride flush 0.9 % injection 10 mL 10 mL Intravenous PRN Alberto Rome, DO ? ondansetron (ZOFRAN) injection 4 mg 4 mg Intravenous Q6H PRN Alberto Rome, DO ARE THERE PERTINENT UPDATES TO PAST,FAMILY, OR SOCIAL HISTORY?: No Subjective: No acute issues, pain fairly well controlled No fevers or chills Motor sensory intact Review of Systems Constitutional: Positive for activity change. Negative for chills and fever. HENT: Negative for tinnitus, trouble swallowing and voice change. Eyes: Negative for discharge and itching. Respiratory: Negative for shortness of breath, wheezing and stridor. Cardiovascular: Negative for chest pain. Gastrointestinal: Negative for abdominal pain, diarrhea, nausea and vomiting. Genitourinary: Negative for dysuria, flank pain and hematuria. Musculoskeletal: Positive for arthralgias. Negative for back pain, neck pain and neck stiffness. Skin: Positive for wound. Negative for rash. Neurological: Positive for weakness. Negative for dizziness, tremors, numbness and headaches. Hematological: Negative for adenopathy. Bruises/bleeds easily. Psychiatric/Behavioral: Negative for agitation, behavioral problems and confusion. Objective: Patient Vitals for the past 24 hrs: BP Temp Temp src Pulse Resp SpO2 08/18/19 0330 116/75 97.9 ?F (36.6 ?C) ? 92 14 ? 08/18/19 0300 ? 97.7 ?F (36.5 ?C) ? 96 15 100 % 08/18/19 0115 113/64 97.7 ?F (36.5 ?C) ? 90 18 ? 08/18/19 0100 107/67 97.9 ?F (36.6 ?C) ? 85 11 98 % 08/18/19 0038 103/62 97.9 ?F (36.6 ?C) ? 94 12 ? 08/17/19 2339 ? 98.1 ?F (36.7 ?C) Bladder 81 8 99 % 08/17/19 2338 ? 98.1 ?F (36.7 ?C) Bladder 95 13 98 % 08/17/19 2323 110/62 98.1 ?F (36.7 ?C) ? 94 16 ? 08/17/19 2300 110/62 98.1 ?F (36.7 ?C) ? 89 10 99 % 08/17/19 2100 107/64 98.4 ?F (36.9 ?C) Bladder 98 13 100 % 08/17/19 2000 123/69 ? ? 107 19 100 % 08/17/19 1900 112/75 ? ? 105 9 99 % 08/17/19 1820 130/77 97 ?F (36.1 ?C) Temporal 108 15 99 % 08/17/19 1700 (!) 125/56 98.2 ?F (36.8 ?C) Temporal 110 16 ? 08/17/19 1630 (!) 121/58 99 ?F (37.2 ?C) Temporal 112 16 ? 08/17/19 1600 129/78 ? ? 98 16 100 % 08/17/19 1530 126/77 ? ? 99 16 98 % 08/17/19 1515 124/79 ? ? 104 16 ? 08/17/19 1500 130/74 97.5 ?F (36.4 ?C) CORE 96 16 98 % 08/17/19 0459 111/73 97.7 ?F (36.5 ?C) Temporal 86 18 98 % Date 08/18/19 0000 - 08/18/19 2359 Shift 3953-5757 5314-0881 3748-3438 24 Hour Total INTAKE Blood(mL/kg) 365(5.4) 365(5.4) Shift Total(mL/kg) 365(5.4) 365(5.4) OUTPUT Urine(mL/kg/hr) 300 300 Shift Total(mL/kg) 300(4.4) 300(4.4) Weight (kg) 68 68 68 68 PHYSICAL: Physical Exam Constitutional: General: She is not in acute distress. HENT: Head: Normocephalic and atraumatic. Right Ear: External ear normal. Left Ear: External ear normal. Nose: Nose normal. Mouth/Throat: Mouth: Mucous membranes are moist. Pharynx: Oropharynx is clear. Eyes: General: Right eye: No discharge. Left eye: No discharge. Extraocular Movements: Extraocular movements intact. Conjunctiva/sclera: Conjunctivae normal. Neck: Musculoskeletal: Neck supple. No neck rigidity or muscular tenderness. Cardiovascular: Rate and Rhythm: Normal rate and regular rhythm. Pulmonary: Effort: Pulmonary effort is normal. No respiratory distress. Breath sounds: No stridor. Chest: Chest wall: No tenderness. Abdominal: General: There is no distension. Palpations: Abdomen is soft. Tenderness: There is no abdominal tenderness. Musculoskeletal: General: Tenderness present. No swelling. Skin: General: Skin is warm and dry. Coloration: Skin is not jaundiced. Comments: Vac left thigh Dressing c/d/i. vioptix in place Neurological: General: No focal deficit present. Mental Status: She is alert and oriented to person, place, and time. Comments: Motor sensory intact Psychiatric: Mood and Affect: Mood normal. Behavior: Behavior normal. / / / Data Review Data CBC with Differential: Lab Results Component Value Date WBC 16.6 08/17/2019 WBC 7.3 09/01/2015 RBC 2.56 08/17/2019 HGB 6.1 08/17/2019 HCT 17.6 08/17/2019 PLT 265 08/17/2019 CMP: Lab Results Component Value Date NA 133 08/17/2019 K 4.3 08/17/2019 CL 98 08/17/2019 CO2 25 08/17/2019 BUN 15 08/17/2019 CREATININE 0.58 08/17/2019 GFRAA >60 09/01/2015 AGRATIO 1.3 09/01/2015 LABGLOM >60 09/01/2015 GLUCOSE 127 08/17/2019 PROT 7.3 05/14/2018 LABALBU 3.5 08/17/2019 CALCIUM 8.8 08/17/2019 BILITOT 0.7 05/14/2018 ALKPHOS 95 05/14/2018 AST 35 05/14/2018 ALT 48 05/14/2018 BMP: Hepatic Function Panel:Ionized Calcium: No results found for: IONCA Magnesium: Lab Results Component Value Date MG 1.4 08/17/2019 Phosphorus: Lab Results Component Value Date PHOS 3.8 08/17/2019 PT/INR: Lab Results Component Value Date PROTIME 10.4 08/16/2019 INR 1.0 08/16/2019 PTT: No results found for: APTT[APTT Last 3 Troponin: Lab Results Component Value Date TROPONINI <0.012 08/14/2019 TROPONINI <0.017 05/11/2015 Urine Culture: No components found for: CURINE Blood Culture: No components found for: CBLOOD, CFUNGUSBL Blood Culture from Central Line: No components found for: CBLOODLN Stool Culture: No components found for: CSTOOL Sputum Culture: No components found for: CSPUTUM Sputum Culture for AFB: No components found for: CAFBSM Wound Culture: Corynebacterium Patient Active Problem List Diagnosis ? Post-traumatic headache ? Depression ? Anxiety ? Chronic pelvic pain in female ? Endometriosis determined by laparoscopy ? Family history of breast cancer in mother ? Increased risk of breast cancer ? Closed torus fracture of lower end of left tibia ? Wound dehiscence ? 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 Subacute osteomyelitis of left tibia (HCC) ? Open wound of left ankle ? Sequela of Corynebacterium infection ? Hardware complicating wound infection (HCC) ASSESSMENT: This is a 33 y.o. female with osteomyelitis of LLE s/p ALT free flap from R thigh to LLE 08/16 PLAN: Neuro/Spine: - IV tylenol 1g q6hr -dilaudid prn breakthrough HEENT: - no issues Cardiovascular: - ASA 325mg daily Pulmonary: - IS - duoneb prn - encourage deep breathing, coughing FEN/GI: - senna - LR @125cc/hr - NPO for now, plan for diet later today - replace electrolytes as needed : - CrCl: 133 - continue sampson, monitor UOP Heme: - Hgb: 6.1 - 2u pRNC, 2u FFP, 1pk plt transfusion in progress - follow up post transfusion labs ID: - vancomycin BID per ID with plans for extended (6wk) course - OR clx corynebacterium Endo: - no issues Lines/Devices: - sampson - PIV Prophylaxis: DVT: None Has DVT PPX been started? No If no, why? 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 * I independently saw the above patient and reviewed the imaging, labs, vital signs; I performed a physical exam and ROS on the same date of service as above. My findings agree with the above note exceptfor any details corrected below. Alexy Thompson MD [address]g [id number] Alberto Rome, - 08/17/2019 8:39 PM ESTPlastic & Reconstructive Surgery Flap Check S: Doing well, pain controlled, mostly feels it in the right thigh. No nausea. Resting. O: Right thigh; prevena in place, drain minimal output, sanguinous, thigh is tight from closure, no paresthesias in the foot, foot warm Left leg; dressing in place, flap soft, warm, cap refill 1-2 seconds, strong doppler signal appreciated, Vioptix 60% A/P: 33 y.o. female POD0 s/p free right ALT to left leg wound, doing well Continue current management as ordered Santi Rome DO PGY Plastic and Reconstructive Surgery 08/17/2019, 8:39 PM Gogo Goodrich RN - 08/17/2019 5:40 PM ESTPatient stated pain is increasing in R thigh. Site appears more edematous and ortho residents at next bed evaluated site. Compartment syndrome ruled out. Transfering up to t2 ICU. Gogo Goodrich RN - 08/17/2019 5:30 PM ESTUpdated family. Changed WANG bulb d/t large blot clot. Gogo Oliveira RN - 08/17/2019 3:21 PM ESTReport given at bedside, Dr Burnham at bedside, orders given . Gilma aplied Nelly Alcantara OT - 08/17/2019 7:39 AM ESTOccupational Therapy OT orders for eval and treat received. Pt currently in OR at this time; will follow with formal evaluation at different time. Osiris José OTR/L - 08/16/2019 11:00 AM ESTOccupational Therapy Received orders for OT eval and treat. Records reviewed. Patient scheduled to have another surgery tomorrow, 08-17-2019. Will hold OT eval until after surgery to be able to make appropriate discharge recommendation depending on functioning after surgery. Will follow. Mame Stallings MD - 08/16/2019 10:56 AM EST [facility] - Infectious Diseases Attending Progress Note Subjective: Following for infected non union s/p HWR. Pt without complaints. Has PICC which is working well. No itching, rashes. No nausea, vomiting, diarrhea. Objective: Vitals: Patient Vitals for the past 24 hrs: BP Temp Temp src Pulse Resp SpO2 08/16/19 0832 106/66 ? Temporal 82 ? 96 % 08/16/19 0831 95/60 97.7 ?F (36.5 ?C) Temporal 74 16 96 % 08/16/19 0441 108/68 98.2 ?F (36.8 ?C) Temporal 88 18 98 % 08/15/19 1716 114/78 98 ?F (36.7 ?C) Temporal 81 16 96 % Physical Exam Vitals signs and nursing note reviewed. Constitutional: General: She is not in acute distress. Appearance: Normal appearance. She is normal weight. She is not ill-appearing, toxic-appearing or diaphoretic. HENT: Head: Normocephalic and atraumatic. Right Ear: External ear normal. Left Ear: External ear normal. Nose: Nose normal. No congestion or rhinorrhea. Mouth/Throat: Mouth: Mucous membranes are moist. Pharynx: Oropharynx is clear. No oropharyngeal exudate or posterior oropharyngeal erythema. Eyes: General: No scleral icterus. Right eye: No discharge. Left eye: No discharge. Conjunctiva/sclera: Conjunctivae normal. Neck: Musculoskeletal: Normal range of motion. No neck rigidity. Cardiovascular: Rate and Rhythm: Normal rate and regular rhythm. Heart sounds: Normal heart sounds. No murmur. Pulmonary: Effort: Pulmonary effort is normal. No respiratory distress. Breath sounds: Normal breath sounds. Chest: Chest wall: No tenderness. Abdominal: General: Bowel sounds are normal. There is no distension. Palpations: Abdomen is soft. Tenderness: There is no abdominal tenderness. Hernia: No hernia is present. Musculoskeletal: Normal range of motion. General: No swelling, deformity or signs of injury. Right lower leg: No edema. Comments: L foot in surgical dressing Lymphadenopathy: Cervical: No cervical adenopathy. Skin: General: Skin is warm and dry. Coloration: Skin is not jaundiced. Findings: No bruising, erythema or rash. Neurological: Mental Status: She is alert and oriented to person, place, and time. Mental status is at baseline. Gait: Gait abnormal. Psychiatric: Mood and Affect: Mood normal. Behavior: Behavior normal. Thought Content: Thought content normal. Judgment: Judgment normal. Labs: Component Value Date/Time NA 136 08/16/2019 0458 K 3.8 08/16/2019 0458 CL 104 08/16/2019 0458 CO2 25 08/16/2019 0458 BUN 22 (H) 08/16/2019 0458 CREATININE 0.69 08/16/2019 0458 GLUCOSE 96 08/16/2019 0458 CALCIUM 8.7 08/16/2019 0458 PROT 7.3 05/14/2018 0840 LABALBU 4.5 05/14/2018 0840 BILITOT 0.7 05/14/2018 0840 ALKPHOS 95 05/14/2018 0840 AST 35 05/14/2018 0840 ALT 48 05/14/2018 0840 Component Value Date/Time WBC 9.0 08/16/2019 0458 WBC 7.3 09/01/2015 1414 HGB 10.9 (L) 08/16/2019 0458 HCT 32.4 (L) 08/16/2019 0458 PLT 247 08/16/2019 0458 GRANULOCYTES 70.5 06/14/2016 1337 LYMPHOPCT 21.9 06/14/2016 1337 MONOPCT 5.1 06/14/2016 1337 MONOPCT 6.0% 09/01/2015 1414 LABEOS 1.9 06/14/2016 1337 BASOPCT 0.6 06/14/2016 1337 BASOPCT 0.5% 09/01/2015 1414 NEUTROABS 5.6 06/14/2016 1337 NEUTROABS 5.1 09/01/2015 1414 Micro: 08/13 OR cultures: Corynebacterium striatum vanc 0.50 Lines: PICC Radiography/Echo/Other: 08/14 CTA LE Arterial runoff within left lower extremity is delineated on the CT angiographic images. Evidence of fractures within the left ? 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 s/p HWR left tibia, fibula, partial excisionleft tibia secondary to infection, insertion of antibiotic mica spacer left tibia and application of wound vac, awaiting flap tomorrow 2) h/o ankle fracture 03/2019 secondary to ice skating Plan: - continue vanc - follow up vanc trough - anticipate 6 weeks IV vancomycin - flap tomorrow with PRS - pt has PICC - d/w TCC - Dr. Love and Dr. Dunlap cover this weekend Mame Stallings MD Marcy Leonard DTR - 08/16/2019 9:35 AM ESTNutrition rescreen completed. Patient referred to the Dietitian. Brandy Sun RN - 08/16/2019 8:30 AM ESTWound Care consulted for wound VAC dressing change to left LE. Pt's current and PMH reviewed. Pt scheduled for free flap to left medial ankle 08/16. Pt reports that a wound VAC had been used in the past and she is very familiar with the dressing changes. Pt premedicated for pain with IV pain medication per administrative staff supervisor prior to wound VAC dressing change. Old wound VAC dressing soaked with saline and removed without difficulties. Ortho PAMando, into assess pt and wounds. Pt's left medial ankle with full thickness surgical wound measuring 11 cm (including the proximal sutures) x 3 x 1 cm deep with red tissues and exposed bone (see photo below) Periwound clear, no erythema or induration. Moderate amount of serosang drainage noted in VAC cannister. No odor. No purulence. Wound and periwound cleansed with saline, patted dry and cavilon no sting appliedto periwound. Mepitel one applied over sutures. 1 piece of white foam applied to base of wound. 1 piece of black foam applied over wound and sutures. Trac pad buttoned. Wound VAC well sealed at 125 mmHg continuous suction. Pt tolerated the dressing change well. Secured with kerlix with VAC tubing padded. Splint reapplied and kya wraps. Left lateral ankle with full thickness wound measuring 7 x 2.2 x 0.2cm deep with red granulation tissues and small darker clot noted at distal aspect (see photo below) Periwound with suture line 9 cm long at medial aspect. No erythema or induration. Moderate amount of serosang drainage noted on old dressing, no odor. No purulence. Wound and periwound cleansed with saline, patted dry. Wound covered with adaptic and topped with maxsorb and guaze 4x4's, secured with kerlix. +2 palpable left DP pulse. Trace pitting left LE edema. Heel intact. Pt denies any other skin breakdown. Will continue to follow pt. Will consult spud sorter. Randy Berg DO - 08/16/2019 7:48 AM EST [facility] Progress Note Denys Arriola : 1985(33 y.o.) Date: 08/16/19 Subjective: Chief complaint: Medical management HPI 33 y.o.female with PMHx Depression and HPV who presented for planned I&D, hardware removal, and application of wound vac to patient's LLE. Patient originally sustained a L tib-fib fx 03/31/19 whileice skating. She underwent ORIF with [place] DPM 04/11/19 and developed subsequent infection. Pt seen and examined. The pt is feeling better this morning. Pain in her leg is well controlled and symptoms of nasal congestion and cough are markedly improved. Pt denies SOB. No overnight events. Scheduled Meds: ? sennosides-docusate sodium 2 tablet Oral Daily ? guaiFENesin 600 mg Oral BID ? cetirizine 10 mg Oral Daily ? lidocaine 1 % injection 5 mL Intradermal Once ? sodium chloride flush 10 mL Intravenous 2 times per day ? sodium chloride flush 10 mL Intravenous 2 times per day ? heparin flush 250 Units Intravenous 2 times per day ? vancomycin 15 mg/kg Intravenous Q12H ? sodium chloride flush 10 mL Intracatheter Q12H ? heparin flush 250 Units Intravenous Q12H ? FLUoxetine 20 mg Oral Daily ? sodium chloride flush 10 mL Intravenous 2 times per day ? aspirin 325 mg Oral Daily Continuous Infusions: PRN Meds:HYDROcodone 5 mg - acetaminophen OR HYDROcodone 5 mg - acetaminophen, iopamidol, sodiumchloride flush, heparin flush, sodium chloride flush, heparin flush, sodium chloride flush, polyethylene glycol, promethazine OR ondansetron Review of Systems Constitutional: Negative for chills and fever. HENT: Negative for congestion and sneezing. Respiratory: Negative for cough, shortness of breath and wheezing. Interval Pertinent History: Social History Tobacco Use ? Smoking status: Never Smoker ? Smokeless tobacco: Never Used Substance Use Topics ? Alcohol use: No Alcohol/week: 0.0 standard drinks Comment: occasional Objective: Patient Vitals for the past 24 hrs: BP Temp Temp src Pulse Resp SpO2 08/16/19 0441 108/68 98.2 ?F (36.8 ?C) Temporal 88 18 98 % 08/15/19 1716 114/78 98 ?F (36.7 ?C) Temporal 81 16 96 % 08/15/19 0853 126/77 98.2 ?F (36.8 ?C) Temporal 115 16 97 % Physical Exam Constitutional: Pt is well appearing, in no acute distress. Head: Normocephalic, atraumatic. Neck: Supple, full ROM. Cardiovascular: RRR, without murmurs, rubs, or gallops Respiratory: Lungs clear to auscultation bilaterally. No wheezing. No respiratory distress Abdomen: Soft, nontender. No masses appreciated. LE: LLE not examined Average, Min, and Max for last 24 hours Vitals: TEMPERATURE: Temp Av.1 ?F (36.7 ?C) Min: 98 ?F (36.7 ?C) Max: 98.2 ?F (36.8 ?C) RESPIRATIONS RANGE: Resp Av.7 Min: 16 Max: 18 PULSE RANGE: Pulse Av.7 Min: 81 Max: 115 BLOOD PRESSURE RANGE: Systolic (24hrs), Av , Min:108 , Max:126 ; Diastolic (24hrs), Av, Min:68, Max:78 PULSE OXIMETRY RANGE: SpO2 Av % Min: 96 % Max: 98 % I/O last 3 completed shifts: In: 400 [P.O.:400] Out: 25 [Drains:25] Lab Results Component Value Date WBC 9.0 08/16/2019 HGB 10.9 (L) 08/16/2019 HCT 32.4 (L) 08/16/2019 MCV 88.7 08/16/2019 PLT 247 08/16/2019 Lab Results Component Value Date NA 136 08/16/2019 K 3.8 08/16/2019 CL 104 08/16/2019 CO2 25 08/16/2019 BUN 22 08/16/2019 CREATININE 0.69 08/16/2019 GLUCOSE 96 08/16/2019 CALCIUM 8.7 08/16/2019 No results found for: LABA1C Additional results of the last 24 hours have been reviewed. 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 * 1. Closed Lt Tibial fx - post-op removal of hardware, I&D, and placement of wound vac by Ortho. Pain control. 2. Left medial ankle wound - plastic surgery to perform ALT free flap to the wound on 08/16. - Hold ASA on morning of 08/16 - Pt is medically optimized for surgery 3. Subacute osteomyelitis of Left tibia - ID consulted for antibiotic recommendations. No signs/symptoms of infection. 4. Depression - continue home Fluoxetine. 5. Nasal congestion / Sneezing - symptomatic control with antihistamine, mucinex. Incentive spirometer 6. DVT prophylaxis: SCDs As infection is being managed by ID, medicine will sign off at this time. Please feel free to reconsult or page if any questions or for further medical management as necessary. I spent over 51% of total time providing counseling or incoordination of care: 25 minutes discussed with pt, I personally examined the patient and I personally reviewed chart, data, labs radiology reports 6AM-6PM please page: Electronically signed by Randy Harris DO 6PM-6AM please page: [facility] [place] Internal Medicine Fabio Camacho MD - 08/16/2019 6:13 AM EST [facility] H[facility] TELEMETRY [address] [facility] [address] Dept: [phone] Loc: [phone] Plastics Progress Note Name: Denys Arriola Date:08/16/2019 Attending:Jesse Burnham MD Subjective LLE block has worn off, having mild pain. Ready for surgery tomorrow. KATHERIN. No events o/n. Objective Vitals: Vitals: 08/15/19 0416 08/15/19 0853 08/15/19 1716 08/16/19 0441 BP: 114/64 126/77 114/78 108/68 Pulse: 106 115 81 88 Resp: 18 16 16 18 Temp: 98.6 ?F (37 ?C) 98.2 ?F (36.8 ?C) 98 ?F (36.7 ?C) 98.2 ?F (36.8 ?C) TempSrc: Temporal Temporal Temporal Temporal SpO2: 96% 97% 96% 98% Weight: Height: Physical Exam: General: NAD LLE Dressing/Skin: Splint Clean/Dry/Intact SILT: SILT but diminished to all toes Motor: +toe wiggle & EHL, DF/PF unable to obtain in splint BCR <2 seconds to all toes Wound vac functioning well LABS: Recent Labs 08/14/19 0705 HGB 13.3 HCT 38.2 Recent Labs 08/16/19 0458 NA 136 K 3.8 CL 104 CO2 25 BUN 22* CREATININE 0.69 CALCIUM 8.7 Recent Labs 08/16/19 0458 INR 1.0 No results for input(s): SEDRATE, CRP in the last 72 hours. No results for input(s): HCG in the last 72 hours. Assessment Denys is a 33 y.o.female s/p L ankle I&D, HWR, and wound vac vanessa with medial soft tissue coverage defect Plan -Plan for ALT free flap 08/16 -CTA LLE completed -NPO at midnight 08/16 -Pre-op labs complete -NWB LLE, otherwise activity as tolerated -Keep splint on until surgery -Ice/elevate -Wound care consulted--vac change today -ID consulted--will defer abx to ID -Continue home meds -ASA 325 daily DVT ppx Fabio Camacho M.D. PGY-1 [phone] Stu Rubio, PT - 08/15/2019 3:54 PM EST Physical Therapy Facility/Department: [facility] TELEMETRY Initial Assessment NAME: Denys Arriola : 1985 Date of Service: 08/15/2019 Discharge Recommendations: Outpatient PT (when applicable) PT Equipment Recommendations Equipment Needed: No Assessment Assessment: Pt is awaiting ALT free flap sx planned for 08/17/2019. Pt is s/p I&D, hardware removal, and application of wound vac to patient's LLE 08/14/2019. Patient originally sustained a L tib-fib fx 03/31/19 while ice skating. ORIF 04/11/19 and developed subsequent infection. Pt is NWB LLE. Pt was independent with no assistive device for all activities prior to the fx. For the past 5 months, pt has been modified independent for all activities. In today's session, pt was independent with all bed mobility and modified independent with all transfers, ambulation, and stairs. Recommmend discharge from inpatient PT. Recommend outpatient PT. Decision Making: Medium Complexity PT Education: Goals;Precautions;Transfer Training;PT Role;Weight-bearing Education;Functional Mobility Training;Adaptive Device Training;Equipment;Family Education;Plan of Care;General Safety;Injury Prevention;Gait Training No Skilled PT: Independent with functional mobility Activity Tolerance Activity Tolerance: Patient Tolerated treatment well Activity Tolerance: Pt demonstrated no increase in pain or fatigue with session Patient Diagnosis(es): There were no encounter diagnoses. has a past medical history of At high risk for breast cancer, Depression, Endometriosis, Family history of breast cancer in mother, Gastric ulcer, HPV (human papilloma virus) infection, Migraines, Peptic ulcer without hemorrhage or perforation but with obstruction, and Pre-conception counseling. has a past surgical history that includes section; Hysterectomy, vaginal; [place] tooth extraction; pelvic laparoscopy; Dilation and curettage of uterus (2016); Ankle surgery (04/11/19, 04/27/19, 04/30/19); and other surgical history (Left, 08/14/2019). Restrictions Restrictions/Precautions Restrictions/Precautions: Weight Bearing(wound vac) Required Braces or Orthoses?: No Lower Extremity Weight Bearing Restrictions Left Lower Extremity Weight Bearing: Non Weight Bearing Vision/Hearing Subjective General Chart Reviewed: Yes Patient assessed for rehabilitation services?: Yes Additional Pertinent Hx: ALT free flap sx planned for 08/17/2019. I&D, hardware removal, and application of wound vac to patient's LLE 08/14/2019. Patient originally sustained a L tib-fib fx 03/31/19 while ice skating. ORIF 04/11/19 and developed subsequent infection Family / Caregiver Present: Yes(Pt parents present. Pt gave permisison to speak freely in front of parents.) Follows Commands: Within Functional Limits Subjective Subjective: Pt agreeable to therapy. Pt was in good spirits. Pt reported no falls since the day following the acccident, when she fell d/t unfamiliarity with crutches. Pain Screening Patient Currently in Pain: Yes Pain Assessment Pain Assessment: 0-10 Pain Level: 3 Pain Location: Ankle(medial and lateral aspects) Pain Orientation: Left Vital Signs Patient Currently in Pain: Yes Orientation Orientation Overall Orientation Status: Within Normal Limits(A&O x 4) Social/Functional History Social/Functional History Lives With: Spouse, Family( and 5 kids) Type of Home: House Home Layout: Two level Home Access: Ramped entrance Entrance Stairs - Number of Steps: 14 stairs in the house with landing them into two flights Entrance Stairs - Rails: Both Bathroom Shower/Tub: Tub/Shower unit Bathroom Toilet: Standard Bathroom Accessibility: Accessible, Wheelchair accessible, Walker accessible Home Equipment: Standard walker, Roll About, Crutches(Pt reports using rolling scooter for the majority of the day,. Scoots around in rolling chair at work. Uses crutches in populated areas, such as restaurants. Uses walker in home. 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 AROM RLE (degrees) RLE AROM: WNL AROM RUE (degrees) RUE AROM : WNL AROM LUE (degrees) LUE AROM : WNL Strength RLE Comment: 10/14 globally Strength RUE Comment: 10/14 globally Strength LUE Comment: 10/14 globally Sensation Overall Sensation Status: WNL(Pt reported nerve block beginning to wear off in LLE. Pt reported no numbness/tingling elsewhere. ) Bed mobility Rolling to Left: Independent Rolling to Right: Independent Supine to Sit: Independent Scooting: Independent Transfers Sit to Stand: Modified independent Stand to sit: Modified independent Bed to Chair: Modified independent Stand Pivot Transfers: Modified independent Ambulation Ambulation?: Yes WB Status: NWB LLE Ambulation 1 Surface: level tile Device: Rolling Walker Assistance: Modified Independent Distance: 150 feet Stairs/Curb Stairs?: Yes Stairs # Steps : 3 Rails: Bilateral Device: Standard walker Assistance: Modified independent Comment: Pt used standard walker to navigate stairs by going up backwards and down forwards while maintaining NWB on LLE. Balance Posture: Good Sitting - Static: Good Sitting - Dynamic: Good Standing - Static: Fair Standing - Dynamic: Fair Plan Safety Devices Type of devices: All fall risk precautions in place, Gait belt, Left in chair, Call light within reach G-Code OutComes Score AM-PAC Score AM-PAC Inpatient Mobility Raw Score : 24 (08/15/191537) AM-PAC Inpatient T-Scale Score : 61.14 (08/15/191537) Mobility Inpatient CMS 0-100% Score: 0 (08/15/191537) Mobility Inpatient CMS G-Code Modifier : CH (03/05/20 1538) Goals Short term goals Time Frame for Short term goals: Discharge Therapy Time Individual Concurrent Group Co-treatment Time In 0223 Time Out 0302 Minutes 39 Transfer Plan of care over to [facility] Physical Therapy staff. Goals and/or treatment plan was established in collaboration with patient/family/other (specify). Plan to be activated only if patient is admitted or for assessing discharge needs. Stu Holder, PT Jovana Orellana RN - 08/15/2019 2:01 PM ESTFollowed up with patient in her room on post op day one; Pt very pleased with block results; Numbness just now starting to where off and needed a dose of just PO pain medication Randy Berg DO - 08/15/2019 8:17 AM EST [facility] Progress Note Denys Arriola : 1985(33 y.o.) Date: 08/15/19 Subjective: Chief complaint: Medical management HPI 33 y.o.female with PMHx Depression and HPV who presented for planned I&D, hardware removal, and application of wound vac to patient's LLE. Patient originally sustained a L tib-fib fx 03/31/19 whileice skating. She underwent ORIF with Mc Davila DPM 04/11/19 and developed subsequent infection. Pt seen and examined. The patient feels their symptoms are unchanged. She reports pain in the LLE iswell controlled. She does complain of nasal congestion and sneezing. Reports mild cough but no trouble breathing or wheezing. No overnight events. Scheduled Meds: ? FLUoxetine 20 mg Oral Daily ? sodium chloride flush 10 mL Intravenous 2 times per day ? aspirin 325 mg Oral Daily ? ceFAZolin 2 g Intravenous Q8H Continuous Infusions: PRN Meds:sodium chloride flush, polyethylene glycol, promethazine OR ondansetron, acetaminophen,oxyCODONE OR oxyCODONE Review of Systems Constitutional: Negative for chills and fever. HENT: Positive for congestion and sneezing. Respiratory: Positive for cough. Negative for shortness of breath and wheezing. Interval Pertinent History: Social History Tobacco Use ? Smoking status: Never Smoker ? Smokeless tobacco: Never Used Substance Use Topics ? Alcohol use: No Alcohol/week: 0.0 standard drinks Comment: occasional Objective: Patient Vitals for the past 24 hrs: BP Temp Temp src Pulse Resp SpO2 08/15/19 0416 114/64 98.6 ?F (37 ?C) Temporal 106 18 96 % 08/15/19 0055 106/60 98 ?F (36.7 ?C) Temporal 96 20 97 % 08/14/19 2125 117/74 97.3 ?F (36.3 ?C) Temporal 83 16 95 % 08/14/19 1607 127/75 97.5 ?F (36.4 ?C) Temporal 90 18 99 % 08/14/19 1457 115/77 97.4 ?F (36.3 ?C) Temporal 88 18 96 % 08/14/19 1215 130/80 98.8 ?F (37.1 ?C) Temporal 72 16 98 % 08/14/19 1130 129/77 ? ? 72 15 99 % 08/14/19 1100 114/77 ? ? 68 11 100 % 08/14/19 1030 106/71 ? ? 66 15 98 % 08/14/19 1000 111/75 ? ? 74 17 99 % 08/14/19 0945 109/69 ? ? 77 12 99 % 08/14/19 0930 107/66 ? ? 80 16 98 % 08/14/19 0912 (!) 93/54 97.1 ?F (36.2 ?C) Temporal 70 12 100 % Physical Exam Constitutional: Pt is well appearing, in no acute distress. Head: Normocephalic, atraumatic. Neck: Supple, full ROM. Cardiovascular: RRR, without murmurs, rubs, or gallops Respiratory: Lungs clear to auscultation bilaterally. No wheezing. No respiratory distress Abdomen: Soft, nontender. No masses appreciated. LE: LLE not examined Average, Min, and Max for last 24 hours Vitals: TEMPERATURE: Temp Av.8 ?F (36.6 ?C) Min: 97.1 ?F (36.2 ?C) Max: 98.8 ?F (37.1 ?C) RESPIRATIONS RANGE: Resp Av.7 Min: 11 Max: 20 PULSE RANGE: Pulse Av.2 Min: 66 Max: 106 BLOOD PRESSURE RANGE: Systolic (24hrs), Av , Min:93 , Max:130 ; Diastolic (24hrs), Av, Min:54, Max:80 PULSE OXIMETRY RANGE: SpO2 Av % Min: 95 % Max: 100 % I/O last 3 completed shifts: In: 1700 [P.O.:600; I.V.:1100] Out: 2210 [Urine:1950; Drains:250; Blood:10] Lab Results Component Value Date WBC 8.0 06/14/2016 HGB 13.3 08/14/2019 HCT 38.2 08/14/2019 MCV 83.8 06/14/2016 PLT 273 06/14/2016 Lab Results Component Value Date NA 138 05/14/2018 K 4.4 05/14/2018 CL 103 05/14/2018 CO2 26 05/14/2018 BUN 17 05/14/2018 CREATININE 0.69 05/14/2018 GLUCOSE 99 05/14/2018 CALCIUM 9.6 05/14/2018 No results found for: LABA1C Additional results of the last 24 hours have been reviewed. 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 * 1. Closed Lt Tibial fx - post-op removal of hardware, I&D, and placement of wound vac by Ortho. Pain control. 2. Left medial ankle wound - plastic surgery to perform ALT free flap to the wound on 08/16. 3. Subacute osteomyelitis of Left tibia - ID consulted for antibiotic recommendations. No signs/symptoms of infection. 4. Depression - continue home Fluoxetine. 5. Nasal congestion / Sneezing - symptomatic control with antihistamine, mucinex. Incentive spirometer 6. DVT prophylaxis: SCDs Disposition:await test results, await recruiting operations consultant recommendations and await clinical improvement I spent over 51% of total time providing counseling or incoordination of care: 25 minutes discussed with pt, I personally examined the patient and I personally reviewed chart, data, labs radiology reports 6AM-6PM please page: Electronically signed by Randy Harris DO 6PM-6AM please page: [facility] Internal Medicine Fabio Camacho MD - 08/15/2019 5:48 AM EST [facility] [address] [place] [id number] Dept: [phone] Loc: [phone] Plastics Progress Note Name: Denys Arriola Date:08/15/2019 Attending:Deon Davila MD Subjective LLE block still in effect but can wiggle toes. Pain controlled. KATHERIN. No events o/n. Objective Vitals: Vitals: 08/14/19 1607 08/14/19 2125 08/15/19 0055 08/15/19 0416 BP: 127/75 117/74 106/60 114/64 Pulse: 90 83 96 106 Resp: 18 16 20 18 Temp: 97.5 ?F (36.4 ?C) 97.3 ?F (36.3 ?C) 98 ?F (36.7 ?C) 98.6 ?F (37 ?C) TempSrc: Temporal Temporal Temporal Temporal SpO2: 99% 95% 97% 96% Weight: Height: Physical Exam: General: NAD LLE Dressing/Skin: Splint Clean/Dry/Intact SILT: SILT but diminished to all toes Motor: +toe wiggle & EHL, DF/PF unable to obtain in splint with block in feefect BCR <2 seconds to all toes Wound vac functioning well LABS: Recent Labs 08/14/19 0705 HGB 13.3 HCT 38.2 No results for input(s): NA, K, CL, CO2, BUN, CREATININE, CALCIUM, PHOS in the last 72 hours. Invalid input(s): MAGNES No results for input(s): INR in the last 72 hours. No results for input(s): SEDRATE, CRP in the last 72 hours. No results for input(s): HCG in the last 72 hours. Assessment Denys is a 33 y.o.female s/p L ankle I&D, HWR, and wound vac vanessa with medial soft tissue coverage defect Plan -Plan for ALT free flap 08/16 -CTA LLE to evaluate recipient vessels today -NPO at midnight 08/16 -Will transfer to plastic surgery service today -Wound care consulted--vac change Monday -ID consulted--will defer abx to ID Fabio Camacho M.D. PGY-1 [phone] German Boston MD - 08/15/2019 5:31 AM EST [place] [address] [place] [address] Dept: [phone] Loc: [phone] Adult Orthopaedic Service Patient Name: Denys Arriola Date of : 1985 Date: 08/15/19 Subjective: Denied pain overnight. Reports that she feels that her block is starting to wear off. No acute events overnight. Chest pain from yesterday resolved. Medications: ? FLUoxetine 20 mg Oral Daily ? sodium chloride flush 10 mL Intravenous 2 times per day ? aspirin 325 mg Oral Daily ? ceFAZolin 2 g Intravenous Q8H Physical Exam: Vitals: 08/15/19 0416 BP: 114/64 Pulse: 106 Resp: 18 Temp: 98.6 ?F (37 ?C) SpO2: 96% Intake and Output Summary (Last 24 hours) at Date Time Intake/Output Summary (Last 24 hours) at 08/15/2019 0531 Last data filed at 08/15/2019 0416 Gross per 24 hour Intake 1700 ml Output 2160 ml Net -460 ml LLE: -Splint c/d/i -Wound vac in place with adequate suction (approximately 250 cc's drainage) -Motor: Positive toe wiggle -BCR in toes -SILT in toes, although diminished Labs: CBC with Differential: Lab Results Component Value Date WBC 8.0 06/14/2016 WBC 7.3 09/01/2015 RBC 4.60 06/14/2016 HGB 13.3 08/14/2019 HCT 38.2 08/14/2019 PLT 273 06/14/2016 MCV 83.8 06/14/2016 MCH 29.5 06/14/2016 MCHC 35.2 06/14/2016 RDW 13.4 06/14/2016 SEGSPCT 69.6% 09/01/2015 LYMPHOPCT 21.9 06/14/2016 MONOPCT 5.1 06/14/2016 MONOPCT 6.0% 09/01/2015 BASOPCT 0.6 06/14/2016 BASOPCT 0.5% 09/01/2015 MONOSABS 0.4 06/14/2016 MONOSABS 0.4 09/01/2015 LYMPHSABS 1.8 06/14/2016 LYMPHSABS 1.6 09/01/2015 EOSABS 0.1 06/14/2016 EOSABS 0.1 09/01/2015 BASOSABS 0.0 06/14/2016 BASOSABS <0.1 09/01/2015 Intra-operative cultures pending Gram stain: few molymorphonuclear cells/lpf, no organisms Rads: Radiological Procedure reviewed. Assessment: 33 y.o. female I&D LLE with removal of hardware and application of wound vac Plan: -NWB LLE -Plastics consult--plan for ALT free flap to L medial ankle wound on Monday. Plastics to take on service today. -Infectious disease consult pending -Wound care consult for vac changes -Ancef 2g Q8g until ID recommendations -Ice/elevate -CTA LLE per plastics -Medicine consult for post-op management and chest pain -PT/OT -Leave splint clean, dry, and intact -Continue home medication -Pain control per orthopaedic protocol -Intra-op cultures pending -ASA 325 mg daily -Plan to obtain post-operative XR of ankle after plastics intervention German Cabrera PGY-2 Orthopaedic Surgery 08/15/2019 5:33 AM [phone] Rachel Dumont RN - 08/14/2019 11:09 AM Therese davila at bedside talking to pt and pts family Rachel Horta RN - 08/14/2019 10:33 AM ESTFaidris at bedside in PACU documented in this encounterDot Davis RN - 11/12/2019 8:00 AM EDTShower kit given with instructions. Aury Fritz RN - 11/12/2019 8:00 AM EDTPICC line easily flushed with no blood return. Labs obtained on 1st attempt with 21 gauge needle at L AC site. Patient tolerated well, site benign. documented in this encounterSanti Page MD - 11/18/2019 1:21 PM EDT Department of Orthopedic Surgery Resident Progress Note SUBJECTIVE Brief progress note re dressing and wound vac change. Pain well controlled. All patient questions answered. Dr. Burnham present throughout encounter. OBJECTIVE Physical VITALS: BP 106/84 Pulse 98 Temp 97.7 ?F (36.5 ?C) (Temporal) Resp 16 Ht 5' 7 (1.702 m) Wt150 lb (68 kg) LMP 06/17/2016 SpO2 97% BMI 23.49 kg/m? LLE: splint c/d/i, vac functioning well, BCR <2 seconds all digits. BCR flap. + motor EHL/ DF/PF,+SILT S/S/SP/DP/T, Dressing clean dry and intact Data CBC with Differential: Lab Results Component Value Date WBC 14.3 11/16/2019 WBC 7.3 09/01/2015 RBC 3.79 11/16/2019 HGB 10.3 11/16/2019 HCT 30.5 11/16/2019 PLT 327 11/16/2019 MCV 80.5 11/16/2019 MCH 27.2 11/16/2019 MCHC 33.8 11/16/2019 RDW 13.9 11/16/2019 SEGSPCT 69.6% 09/01/2015 LYMPHOPCT 20.9 08/28/2019 MONOPCT 6.4 08/28/2019 MONOPCT 6.0% 09/01/2015 BASOPCT 1.1 08/28/2019 BASOPCT 0.5% 09/01/2015 MONOSABS 0.6 08/28/2019 MONOSABS 0.4 09/01/2015 LYMPHSABS 1.9 08/28/2019 LYMPHSABS 1.6 09/01/2015 EOSABS 0.3 08/28/2019 EOSABS 0.1 09/01/2015 BASOSABS 0.1 08/28/2019 BASOSABS <0.1 09/01/2015 BMP: Lab Results Component Value Date NA 133 11/16/2019 K 4.3 11/16/2019 CL 103 11/16/2019 CO2 21 11/16/2019 BUN 17 11/16/2019 LABALBU 3.5 08/17/2019 CREATININE 0.63 11/16/2019 CALCIUM 9.1 11/16/2019 GFRAA >60 09/01/2015 LABGLOM >60 09/01/2015 GLUCOSE 132 11/16/2019 PT/INR: Lab Results Component Value Date PROTIME 10.4 08/16/2019 INR 1.0 08/16/2019 Current Inpatient Medications Current Facility-Administered Medications: docusate sodium (COLACE) capsule 100 mg, 100 mg, Oral, Daily polyethylene glycol (GLYCOLAX) packet 17 g, 17 g, Oral, Daily PRN morphine sulfate (PF) injection 2 mg, 2 mg, Intravenous, Q4H PRN OR morphine sulfate (PF) injection 4 mg, 4 mg, Intravenous, Q4H PRN cefepime (MAXIPIME) 2 g IVPB extended (mini-bag), 2 g, Intravenous, Q12H aspirin EC tablet 81 mg, 81 mg, Oral, Daily cetirizine (ZYRTEC) tablet 10 mg, 10 mg, Oral, Daily FLUoxetine (PROZAC) capsule 20 mg, 20 mg, Oral, Daily sodium chloride flush 0.9 % injection 10 mL, 10 mL, Intravenous, 2 times per day sodium chloride flush 0.9 % injection 10 mL, 10 mL, Intravenous, PRN acetaminophen (TYLENOL) tablet 650 mg, 650 mg, Oral, Q4H PRN promethazine (PHENERGAN) tablet 12.5 mg, 12.5 mg, Oral, Q6H PRN OR ondansetron (ZOFRAN) injection 4 mg, 4 mg, Intravenous, Q6H PRN HYDROcodone-acetaminophen (NORCO) 5-325 MG per tablet 1 tablet, 1 tablet, Oral, Q4H PRN OR HYDROcodone-acetaminophen (NORCO) 5-325 MG per tablet 2 tablet, 2 tablet, Oral, Q4H PRN vancomycin (VANCOCIN) 1,250 mg in dextrose 5 % 250 mL IVPB, 1,250 mg, Intravenous, Q12H ASSESSMENT AND PLAN 33 y.o. female with Left tibia infected nonunion s/p ORIF left tibia infected non union with acute shortening, abx nail and flap rearrangement, removal of darrell spatial frame on 11/15/19 ? Strict Non weight bearing in splint LLE Wound vac changed today with splint re-applied Abx recommendations from ID faxed to [facility] for DC Rx for [place] (in chart) DVT PPx: ASA 81mg daily and cuffs. PT Ice Elevation Santi Page Orthopaedic Surgery PGY-1 Kim Dao OT - 11/18/2019 9:58 AM EDT Occupational Therapy Occupational Therapy Initial Assessment Date: 11/18/2019 Patient Name: Denys Arriola : 1985 Date of Service: 11/18/2019 Discharge Recommendations: Home with assist PRN Assessment Assessment: OT eval completed. Recommend home with family assist, Pt with good safety awareness and maintenance of NWB Prognosis: Good Decision Making: Low Complexity OT Education: OT Role;Plan of Care;Transfer Training Patient Education: recommend wear shoe on right foot to improve ease of left NWB, pt aware REQUIRES OT FOLLOW UP: No Activity Tolerance Activity Tolerance: Patient Tolerated treatment well Safety Devices Safety Devices in place: Yes Type of devices: Call light within reach;Left in bed Restraints Initially in place: No Patient Diagnosis(es): The encounter diagnosis was Closed torus fracture of distal end of left tibiawith nonunion. has a past medical history of At high risk for breast cancer, Closed tibia fracture, Depression, Endometriosis, Family history of breast cancer in mother, Gastric ulcer, HPV (human papilloma virus) infection, Migraines, Peptic ulcer without hemorrhage or perforation but with obstruction, and Pre-conception counseling. has a past surgical history that includes section; Hysterectomy, vaginal; [place] tooth extraction; pelvic laparoscopy; Dilation and curettage of uterus (2016); Ankle surgery (04/11/19, 04/27/19, 04/30/19); other surgical history (Left, 08/14/2019); other surgical history (Left, 08/17/2019); other surgical history (Left, 08/17/2019); Ankle surgery (Left, 08/23/2019); layer wound closure (Left, 09/27/2019); and other surgical history (11/15/2019). Restrictions Restrictions/Precautions Restrictions/Precautions: Weight Bearing Required Braces or Orthoses?: No Lower Extremity Weight Bearing Restrictions Left Lower Extremity Weight Bearing: Non Weight Bearing Position Activity Restriction Other position/activity restrictions: wound Vac LLE Subjective General Chart Reviewed: Yes Patient assessed for rehabilitation services?: Yes Family / Caregiver Present: No Diagnosis: Admitted for closed torus fracture of distal tibia, S/P ORIF infections antibiotic nails and flap rearrangement with removal of darrell spatial frame, 11/14. Per pt broke leg in Mar 2019 and NWB since Patient Currently in Pain: Yes Pain Assessment Pain Level: 8 Pain Type: Acute pain;Surgical pain Pain Location: Ankle;Knee Pain Orientation: Left Pre Treatment Pain Screening Comments / Details: pt agreeable to continue with session, Social/Functional History Social/Functional History Lives With: Family Type of Home: House Home Layout: Two level, Bed/Bath upstairs Home Access: Ramped entrance Bathroom Accessibility: Accessible Home Equipment: Standard walker, Rolling walker, Wheelchair-manual, Crutches(knee scooter) Receives Help From: Family ADL Assistance: Independent Homemaking Assistance: Needs assistance Ambulation Assistance: Independent Transfer Assistance: Independent Additional Comments: 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 Has been NWB LLE since original injury in Mar 2019. Mostly using wc inside home. Is able to go up/down stairs with rail and DME to get to bedroom. Spends most time on main floor of house. working at home since COV and has 5 children . Pt reports doing laundry and cooking with assist of kids at home Objective Vision: Within Functional Limits Hearing: Within functional limits Orientation Overall Orientation Status: Within Functional Limits Observation/Palpation Observation: LLE with dressing, wound vac, wraps on LLE Balance Sitting Balance: Independent Standing Balance: Supervision Functional Mobility Functional Mobility Comments: Pivot to C supv for setup only, did well maintaining left NWB. ADL Additional Comments: Toileting supv for hygiene while seated on BSC, Pt able to reach feet to don right sock Tone RUE RUE Tone: Normotonic Tone LUE LUE Tone: Normotonic Coordination Movements Are Fluid And Coordinated: Yes Bed mobility Supine to Sit: Independent Sit to Supine: Independent Scooting: Independent Cognition Overall Cognitive Status: WFL Sensation Overall Sensation Status: WFL(for UE) LUE PROM: WFL LUE AROM : WFL RUE PROM: WFL RUE AROM : WFL LUE Strength Gross LUE Strength: WFL RUE Strength Gross RUE Strength: WFL Plan Plan Times per week: once Plan weeks: once G-Code OutComes Score AM-[facility] Daily Activity Inpatient How much help for putting on and taking off regular lower body clothing?: None How much help for Bathing?: None How much help for Toileting?: None How much help for putting on and taking off regular upper body clothing?: None How much help for taking care of personal grooming?: None How much help for eating meals?: None AM-[facility] Inpatient Daily Activity Raw Score: 24 AM-[facility] Inpatient ADL T-Scale Score : 57.54 ADL Inpatient CMS 0-100% Score: 0 ADL Inpatient CMS G-Code Modifier : CH AM-PAC Score AM-PAC Inpatient Daily Activity Raw Score: 24 (11/18/19950) AM-PAC Inpatient ADL T-Scale Score : 57.54 (11/18/19950) ADL Inpatient CMS 0-100% Score: 0 (11/18/19950) ADL Inpatient CMS G-Code Modifier : (11/18/19950) Goals Patient Goals Patient goals : go home today Therapy Time Individual Concurrent Group Co-treatment Time In 0940 Time Out 0949 Minutes 9 Goals and/or treatment plan was established in collaboration with patient/family/other representatives. This provider wore N95 mask and goggles during entire session. Kim Wright OTR/L Carolyn Bryant [facility] - 11/18/2019 7:31 AM EDTInfectious Diseases has been consulted and will manage Vancomycin at this time. Thank you for the consult. Pharmacy signing off for vancomycin dosing. Carolyn Chavez, PharmD Date: 11/18/19 Time: 7:32 AM Fabio Camacho MD - 11/18/2019 7:04 AM EDT Department of Orthopedic Surgery Resident Progress Note SUBJECTIVE No complaints overnight. Some LLE pain but well controled. No fevers or chills. OBJECTIVE Physical VITALS: BP 112/73 Pulse 93 Temp 98.7 ?F (37.1 ?C) (Temporal) Resp 18 Ht 5' 7 (1.702 m) Wt150 lb (68 kg) LMP 06/17/2016 SpO2 96% BMI 23.49 kg/m? LLE: splint c/d/i, vac functioning well, BCR <2 seconds all digits. BCR flap. + motor EHL/ DF/PF,+SILT S/S/SP/DP/T, Dressing clean dry and intact Data CBC with Differential: Lab Results Component Value Date WBC 14.3 11/16/2019 WBC 7.3 09/01/2015 RBC 3.79 11/16/2019 HGB 10.3 11/16/2019 HCT 30.5 11/16/2019 PLT 327 11/16/2019 MCV 80.5 11/16/2019 MCH 27.2 11/16/2019 MCHC 33.8 11/16/2019 RDW 13.9 11/16/2019 SEGSPCT 69.6% 09/01/2015 LYMPHOPCT 20.9 08/28/2019 MONOPCT 6.4 08/28/2019 MONOPCT 6.0% 09/01/2015 BASOPCT 1.1 08/28/2019 BASOPCT 0.5% 09/01/2015 MONOSABS 0.6 08/28/2019 MONOSABS 0.4 09/01/2015 LYMPHSABS 1.9 08/28/2019 LYMPHSABS 1.6 09/01/2015 EOSABS 0.3 08/28/2019 EOSABS 0.1 09/01/2015 BASOSABS 0.1 08/28/2019 BASOSABS <0.1 09/01/2015 BMP: Lab Results Component Value Date NA 133 11/16/2019 K 4.3 11/16/2019 CL 103 11/16/2019 CO2 21 11/16/2019 BUN 17 11/16/2019 LABALBU 3.5 08/17/2019 CREATININE 0.63 11/16/2019 CALCIUM 9.1 11/16/2019 GFRAA >60 09/01/2015 LABGLOM >60 09/01/2015 GLUCOSE 132 11/16/2019 PT/INR: Lab Results Component Value Date PROTIME 10.4 08/16/2019 INR 1.0 08/16/2019 Current Inpatient Medications Current Facility-Administered Medications: docusate sodium (COLACE) capsule 100 mg, 100 mg, Oral, Daily polyethylene glycol (GLYCOLAX) packet 17 g, 17 g, Oral, Daily PRN morphine sulfate (PF) injection 2 mg, 2 mg, Intravenous, Q4H PRN OR morphine sulfate (PF) injection 4 mg, 4 mg, Intravenous, Q4H PRN cefepime (MAXIPIME) 2 g IVPB extended (mini-bag), 2 g, Intravenous, Q12H aspirin EC tablet 81 mg, 81 mg, Oral, Daily cetirizine (ZYRTEC) tablet 10 mg, 10 mg, Oral, Daily FLUoxetine (PROZAC) capsule 20 mg, 20 mg, Oral, Daily sodium chloride flush 0.9 % injection 10 mL, 10 mL, Intravenous, 2 times per day sodium chloride flush 0.9 % injection 10 mL, 10 mL, Intravenous, PRN acetaminophen (TYLENOL) tablet 650 mg, 650 mg, Oral, Q4H PRN promethazine (PHENERGAN) tablet 12.5 mg, 12.5 mg, Oral, Q6H PRN OR ondansetron (ZOFRAN) injection 4 mg, 4 mg, Intravenous, Q6H PRN HYDROcodone-acetaminophen (NORCO) 5-325 MG per tablet 1 tablet, 1 tablet, Oral, Q4H PRN OR HYDROcodone-acetaminophen (NORCO) 5-325 MG per tablet 2 tablet, 2 tablet, Oral, Q4H PRN vancomycin (VANCOCIN) 1,250 mg in dextrose 5 % 250 mL IVPB, 1,250 mg, Intravenous, Q12H ASSESSMENT AND PLAN 33 y.o. female with Left tibia infected nonunion s/p ORIF left tibia infected non union with acute shortening, abx nail and flap rearrangement, removal of darrell spatial frame on 11/15/19 ? Strict Non weight bearing in splint LLE Wound vac change today before d/c versus in office on Monday with Dr. Burnham --will touch base withDr. Burnham this a.m. Touch base with ID prior to dc for ABX recs Ok to dc when antibiotics set up Rx for [place] DVT PPx: ASA 81mg daily and cuffs. PT Ice Elevation Fabio Camacho M.D. Orthopaedic Surgery PGY-1 [phone] Rianna Carrillo DTR - 11/17/2019 8:54 AM EDT Nutrition rescreen completed. Chart reviewed. Patient to be monitored and followed by the diet furniture repair technician. Carrington Stephens MD - 11/17/2019 6:06 AM EDT Department of Orthopedic Surgery Resident Progress Note SUBJECTIVE Patient resting comfortably. Pain well controlled. Denies any issues. OBJECTIVE Physical VITALS: BP 104/72 Pulse 93 Temp 98.5 ?F (36.9 ?C) (Temporal) Resp 18 Ht 5' 7 (1.702 m) Wt150 lb (68 kg) LMP 06/17/2016 SpO2 97% BMI 23.49 kg/m? LLE: BCR all digits. BCR flap. 2+ DP/PT pulse, + EHL/ DF/PF, SILT S/S/SP/DP/T, Dressing clean dry and intact Data CBC with Differential: Lab Results Component Value Date WBC 14.3 11/16/2019 WBC 7.3 09/01/2015 RBC 3.79 11/16/2019 HGB 10.3 11/16/2019 HCT 30.5 11/16/2019 PLT 327 11/16/2019 MCV 80.5 11/16/2019 MCH 27.2 11/16/2019 MCHC 33.8 11/16/2019 RDW 13.9 11/16/2019 SEGSPCT 69.6% 09/01/2015 LYMPHOPCT 20.9 08/28/2019 MONOPCT 6.4 08/28/2019 MONOPCT 6.0% 09/01/2015 BASOPCT 1.1 08/28/2019 BASOPCT 0.5% 09/01/2015 MONOSABS 0.6 08/28/2019 MONOSABS 0.4 09/01/2015 LYMPHSABS 1.9 08/28/2019 LYMPHSABS 1.6 09/01/2015 EOSABS 0.3 08/28/2019 EOSABS 0.1 09/01/2015 BASOSABS 0.1 08/28/2019 BASOSABS <0.1 09/01/2015 BMP: Lab Results Component Value Date NA 133 11/16/2019 K 4.3 11/16/2019 CL 103 11/16/2019 CO2 21 11/16/2019 BUN 17 11/16/2019 LABALBU 3.5 08/17/2019 CREATININE 0.63 11/16/2019 CALCIUM 9.1 11/16/2019 GFRAA >60 09/01/2015 LABGLOM >60 09/01/2015 GLUCOSE 132 11/16/2019 PT/INR: Lab Results Component Value Date PROTIME 10.4 08/16/2019 INR 1.0 08/16/2019 Current Inpatient Medications Current Facility-Administered Medications: morphine sulfate (PF) injection 2 mg, 2 mg, Intravenous, Q4H PRN OR morphine sulfate (PF) injection 4 mg, 4 mg, Intravenous, Q4H PRN cefepime (MAXIPIME) 2 g IVPB extended (mini-bag), 2 g, Intravenous, Q12H aspirin EC tablet 81 mg, 81 mg, Oral, Daily cetirizine (ZYRTEC) tablet 10 mg, 10 mg, Oral, Daily FLUoxetine (PROZAC) capsule 20 mg, 20 mg, Oral, Daily sodium chloride flush 0.9 % injection 10 mL, 10 mL, Intravenous, 2 times per day sodium chloride flush 0.9 % injection 10 mL, 10 mL, Intravenous, PRN acetaminophen (TYLENOL) tablet 650 mg, 650 mg, Oral, Q4H PRN promethazine (PHENERGAN) tablet 12.5 mg, 12.5 mg, Oral, Q6H PRN OR ondansetron (ZOFRAN) injection 4 mg, 4 mg, Intravenous, Q6H PRN HYDROcodone-acetaminophen (NORCO) 5-325 MG per tablet 1 tablet, 1 tablet, Oral, Q4H PRN OR HYDROcodone-acetaminophen (NORCO) 5-325 MG per tablet 2 tablet, 2 tablet, Oral, Q4H PRN vancomycin (VANCOCIN) 1,250 mg in dextrose 5 % 250 mL IVPB, 1,250 mg, Intravenous, Q12H ASSESSMENT AND PLAN 33 y.o. female with Left tibia infected nonunion s/p ORIF left tibia infected non union with acute shortening, abx nail and flap rearrangement, removal of darrell spatial frame on 11/15/19 ? Strict Non weight bearing in splint LLE Wound vac change in office on Monday with Dr. Burnham [employer] base with ID prior to dc for ABX recs Ok to dc when antibiotics set up Rx for [place] DVT PPx: ASA 81mg daily and cuffs. PT Ice Elevation Jesse Schneider MD - 11/16/2019 9:23 AM EDT Plastic Surgery - Adult Surgical Service Progress Note SUBJECTIVE: Patient doing well, Pain controlled still has effects of block. Able to wiggle toes OBJECTIVE Physical VITALS: BP 113/67 Pulse 107 Temp 98.3 ?F (36.8 ?C) (Temporal) Resp 16 Ht 5' 7 (1.702 m) Wt 150 lb (68 kg) LMP 06/17/2016 SpO2 95% BMI 23.49 kg/m? Constitutional: Awake alert and oriented Left Lower extremity distal toes with good cap refill, Flap with good cap refill, doppler signal present VAc with good seal Data CBC: Lab Results Component Value Date WBC 14.3 11/16/2019 WBC 7.3 09/01/2015 RBC 3.79 11/16/2019 HGB 10.3 11/16/2019 HCT 30.5 11/16/2019 MCV 80.5 11/16/2019 MCH 27.2 11/16/2019 MCHC 33.8 11/16/2019 RDW 13.9 11/16/2019 PLT 327 11/16/2019 MPV 8.5 11/16/2019 Current Inpatient Medications Current Facility-Administered Medications: aspirin EC tablet 81 mg, 81 mg, Oral, Daily cetirizine (ZYRTEC) tablet 10 mg, 10 mg, Oral, Daily FLUoxetine (PROZAC) capsule 20 mg, 20 mg, Oral, Daily sodium chloride flush 0.9 % injection 10 mL, 10 mL, Intravenous, 2 times per day sodium chloride flush 0.9 % injection 10 mL, 10 mL, Intravenous, PRN acetaminophen (TYLENOL) tablet 650 mg, 650 mg, Oral, Q4H PRN promethazine (PHENERGAN) tablet 12.5 mg, 12.5 mg, Oral, Q6H PRN OR ondansetron (ZOFRAN) injection 4 mg, 4 mg, Intravenous, Q6H PRN HYDROcodone-acetaminophen (NORCO) 5-325 MG per tablet 1 tablet, 1 tablet, Oral, Q4H PRN OR HYDROcodone-acetaminophen (NORCO) 5-325 MG per tablet 2 tablet, 2 tablet, Oral, Q4H PRN vancomycin (VANCOCIN) 1,250 mg in dextrose 5 % 250 mL IVPB, 1,250 mg, Intravenous, Q12H ASSESSMENT AND PLAN 33 y.o. female status post Itibial nail resection of fibrous non union, advancement local tissue rearrangement of skin post op day # 1 Non weight bearing LLE Wound vac change in office on Monday Touch base with ID prior to dc for ABX recs Ok to dc today Rx for [place] Jesse Burnham' [employer] PT - 11/16/2019 8:58 AM EDT Physical Therapy Facility/Department: [facility] Initial Assessment NAME: Denys Arriola : 1985 Date of Service: 11/16/2019 Discharge Recommendations: Home with assist PRN PT Equipment Recommendations Equipment Needed: No Assessment Assessment: PT Eval completed. Pt indep with mobility with use of WW. Compliant with NWB LLE. Has all needed DME at home and family to assist. Safe for disch home with family. Prognosis: Good Decision Making: Low Complexity Barriers to Learning: none No Skilled PT: Independent with functional mobility REQUIRES PT FOLLOW UP: No Activity Tolerance Activity Tolerance: Patient Tolerated treatment well Patient Diagnosis(es): The encounter diagnosis was Closed torus fracture of distal end of left tibiawith nonunion. has a past medical history of At high risk for breast cancer, Closed tibia fracture, Depression, Endometriosis, Family history of breast cancer in mother, Gastric ulcer, HPV (human papilloma virus) infection, Migraines, Peptic ulcer without hemorrhage or perforation but with obstruction, and Pre-conception counseling. has a past surgical history that includes section; Hysterectomy, vaginal; [place] tooth extraction; pelvic laparoscopy; Dilation and curettage of uterus (2016); Ankle surgery (04/11/19, 04/27/19, 04/30/19); other surgical history (Left, 08/14/2019); other surgical history (Left, 08/17/2019); other surgical history (Left, 08/17/2019); Ankle surgery (Left, 08/23/2019); layer wound closure (Left, 09/27/2019); and other surgical history (11/15/2019). Restrictions Restrictions/Precautions Restrictions/Precautions: Weight Bearing, General Precautions, Up as Tolerated Lower Extremity Weight Bearing Restrictions Left Lower Extremity Weight Bearing: Non Weight Bearing Position Activity Restriction Other position/activity restrictions: wound Vac LLE Vision/Hearing Vision: Within Functional Limits Hearing: Within functional limits Subjective General Chart Reviewed: Yes Patient assessed for rehabilitation services?: Yes Additional Pertinent Hx: 11/15/19 ORIF infected non union L tibial fx, removal of Ex fix, elevation oftissue flap, placement wound vac Family / Caregiver Present: No Diagnosis: L infected tibial non union fx. Follows Commands: Within Functional Limits General Comment Comments: N95 mask and face shield worn entire session by this PT Subjective Subjective: Pt agreeable to PT Pain Screening Patient Currently in Pain: Yes Pain Assessment Pain Level: 7 Pain Type: Acute pain;Surgical pain Pain Location: Knee Pain Orientation: Left Pain Frequency: Continuous Vital Signs Patient Currently in Pain: Yes Pre Treatment Pain Screening Comments / Details: LLE block starting to wear off. Pain in knee, foot still with numbness Orientation Orientation Overall Orientation Status: Within Normal Limits Social/Functional History Social/Functional History Lives With: Family Type of Home: House Home Layout: Two level, Bed/Bath upstairs, 1/2 bath on main level, Able to Live on Main level with bedroom/bathroom Home Access: Ramped entrance Bathroom Accessibility: Accessible Home Equipment: Standard walker, Rolling walker, Wheelchair-manual, Crutches(knee scooter) Receives Help From: Family ADL Assistance: Independent Homemaking Assistance: Needs assistance Ambulation Assistance: Independent Transfer Assistance: Independent Additional Comments: 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 Has been NWB LLE since original injury in Mar 2019. Mostly using wc inside home. Is able to go up/down stairs with rail and DME to get to bedroom. Spends most time on main floor of house. working at home since and has 5 children . Cognition Cognition Overall Cognitive Status: WNL Objective Observation/Palpation Observation: LLE with dressing, wound vac, wraps on LLE AROM RLE (degrees) RLE AROM: WNL AROM LLE (degrees) LLE AROM : WFL LLE General AROM: hip and knee AROM RUE (degrees) RUE AROM : WNL AROM LUE (degrees) LUE AROM : WNL Strength RLE Strength RLE: WNL Strength LLE Comment: hip and knee antigravity strength through function Strength RUE Strength RUE: WNL Strength LUE Strength LUE: WNL Tone RLE RLE Tone: Normotonic Tone LLE LLE Tone: Normotonic Sensation Overall Sensation Status: Impaired Additional Comments: L foot numbness due to surgical nerve block Bed mobility Supine to Sit: Independent Sit to Supine: Independent Scooting: Independent Transfers Sit to Stand: Modified independent Stand to sit: Modified independent Ambulation Ambulation?: Yes WB Status: NWB More Ambulation?: No Ambulation 1 Surface: level tile Device: Rolling Walker Assistance: Modified Independent Gait Deviations: Slow Martha Distance: 125 ft Comments: IV and wound vac in tow Stairs/Curb Stairs?: No Balance Standing - Static: Good Standing - Dynamic: Good Plan Plan Plan Comment: PT D/C Safety Devices Type of devices: All fall risk precautions in place, Gait belt, Call light within reach, Left in bed Restraints Initially in place: No G-Code OutComes Score AM-PAC Score AM-PAC Inpatient Mobility Raw Score : 18 (11/16/19839) AM-PAC Inpatient T-Scale Score : 43.63 (11/16/19839) Mobility Inpatient CMS 0-100% Score: 46.58 (11/16/19839) Mobility Inpatient CMS G-Code Modifier : CK (11/16/19839) Goals Patient Goals Patient goals : To heal leg so can start to put weight on it. Therapy Time Individual Concurrent Group Co-treatment Time In 804 Time Out 822 Minutes 18 Dot Mandel, PT Greg Rivera MD - 11/15/2019 10:19 PM EDTOrtho to the bedside secondary to issues with the wound vac. Attempted to seal wound vac through window in splint, however, unable to do this. Splint was removed, protecting the lower extremity at all times. Wound vac sealed and splint re-applied. Window in splint left medially for evaluation of the flap. Please page aviation technician ortho with any questions or concerns. Greg Brandon MD PGY-3 11/15/19 10:23 PM EDT Nicole Mcginnis RN - 11/15/2019 6:47 PM EDTPatient and advised that the wound vac was making a noise that it only made if there was only a leak. Ortho paged to come look at it. Dr. Nuno come to room and assessed the wound vac. He is waiting on a call back from the [facility] to assist. Mary Perez RN - 11/15/2019 6:31 AM EDTPICC line not accessed. Able to flush easily per Julio Reyes RN, unable to get blood return. Pt aware and agreeable to peripheral IV documented in this encounterMehreen Rivas RN - 12/11/2019 10:20 AM EDTPhase II indicated, pt awake and talking, VS stable, pt dressed and ambulated to wheelchair without difficulty, home going instructions reviewed with patient, verbal understanding demonstrated and opportunity given for questions Mehreen Rivas RN - 12/11/2019 8:51 AM EDTPATIENT RECEIVED FROM OR VIA CART. SPONT RESP. WITH CAREER GUIDANCE COUNSELOR IN ATTENDANCE. PLACED ON MONITOR. MONITOR ALARMS ON IN SDS. Yuliya leary RN - 12/11/2019 6:40 AM EDTPatients left upper arm picc line dressing was changed on 12-09-2019. Yuliya leary RN - 12/11/2019 6:39 AM EDTOK to use double lumen picc line per Dr. Deutsch. Yuliya leary RN - 12/11/2019 6:35 AM EDTLeft upper arm picc line, double lumen . Patients line was flushed with 5cc of heparin and NS beforeLR was initiated. documented in this encounterMehreen Nuñez RN - 01/09/2020 3:31 PM EDT Discharge information given to the patient. Patient and family verbalized understanding of information. Tolerating PO fluids and crackers. Vital signs are stable. documented in this encounter Assessments Diagnosis Wound dehiscence Disruption of external operation (surgic al) wound Open wound of left ankle Open wound of knee, leg (except thigh), and ankle, without mention of complication Wound dehiscence, surgical Disruption of external operation (surgic al) wound Diagnosis Closed torus fracture of distal end of l eft tibia with delayed healing, subsequent encounter Closed displaced oblique fracture of sha ft of left tibia with nonunion Nonunion of fracture Subacute osteomyelitis of left tibia (HC C) Depression Depressive disorder, not elsewhere class ified Open wound of left ankle Open wound of knee, leg (except thigh), and ankle, without mention of complication Sequela of Corynebacterium infection Hardware complicating wound infection (H CC) 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 This clinical summary was aggregated from multiple sources. Caution should be exercised in using it in the provision of clinical care. This summary normalizes information from multiple sources, and as a consequence, information in this document may materially changethe coding, format and clinical context of patient data. In addition, data may be omittedin some cases. CLINICAL DECISIONS SHOULD BE BASED ON THE PRIMARY CLINICAL RECORDS. [facility] provides no warranty or guarantee of the accuracy or completeness of information in this document. UNRECOGNIZED CONTENT PROVIDED BELOW FOR UNRECOGNIZED SECTION INFORMATION SOURCE DATE CREATED AUTHOR AUTHOR'S ORGANIZATIO N 11/30/2017 [facility] DATE CREATED AUTHOR AUTHOR'S ORGANIZATIO N 07/10/2019 [facility] CREATED AUTHOR AUTHOR'S ORGANIZATIO N 08/06/2019 [facility] DATE CREATED AUTHOR AUTHOR'S ORGANIZATIO N 01/14/2020 [facility] UNRECOGNIZED CONTENT PROVIDED BELOW FOR UNRECOGNIZED SECTION Reason for Visit Reason Comments
== END ==
PROVIDERS: Visit Provider Internal Medicine Infectious Disease
DX: M86.9 Osteomyelitis, unspecified (principal)
CPT/HCPCS: 80053; 80202; 85025; 85652; 86140

== ENCOUNTER → 2019-10-29 | Outpatient (CLI) | payer OTHER, SELFPAY ==
[2019-10-29 11:17] LABS: Erythrocyte Sedimentation Rate 15 mm/hr (0-20)
[2019-10-29 11:18] LABS: Vancomycin, Trough Level 17.3 ug/mL (5.0-15.0)
[2019-10-29 11:19] LABS: ALB/GLOB Ratio 1.1 RATIO (0.9-2.4); AST(SGOT) 28 U/L (15-37); Alanine Aminotransfer ALT/SGPT 40 U/L (13-56); Albumin, Serum 3.5 g/dL (3.2-5.0); Alkaline Phosphatase 132 U/L (45-117); Anion Gap 7 (5-15); BUN 12 mg/dL (7-18); CRP 2.93 mg/L (0.0-3.0); Calcium,Total 8.9 mg/dL (8.5-10.1); Chloride 105 mmol/L (98-107); EST Glomerular Filtration Rate 101 mL/min (>60); Est Glom Filt Rate - Afr Amer 122 mL/min (>60); Globulin 3.1 g/dL (2.2-4.2); Glucose 97 mg/dL (74-106); Potassium 4.2 mmol/L (3.5-5.1); Protein, Total 6.6 g/dL (6.4-8.2); Sodium Level 139 mmol/L (136-145)
[2019-10-29 11:20] LABS: Absolute Neutrophil Count 4.3 X10^3/uL (2.0-7.7); Basophil# 0.05 X10^3/uL; Basophil% 0.8 % (0-1); Eosinophil# 0.22 X10^3/uL; Eosinophils% 3.5 % (0-5); Hematocrit 34.9 % (37-47); Hemoglobin 11.5 g/dL (12.0-15.0); Lymphocyte % 20.7 % (19-41); Mean Corpuscular Hgb 27.8 pg (27.0-32.0); Mean Corpuscular Volume 84.3 fL (81-99); Mean Platelet Vol. 10.2 fl (6.2-12.0); Monocyte# 0.44 X10^3/uL; NRBC Flagged by Analyzer 0 % (0-5); Neutrophil # 4.25 X10^3/uL (2.7-7.7); Neutrophil % 67.8 % (47-70); Platelet Count 326 K/mm3 (150-450); RBC Distribution Width CV 12.6 % (11.6-14.6); RBC Distribution Width SD 38.3 fl (35.1-43.9); Red Blood Count 4.14 M/mm3 (4.2-5.4); White Blood Count 6.3 K/mm3 (4.4-11.0)
--- OUTSIDE RECORDS SUMMARY | 2020-03-24 13:13 | XMS RPT_ITS | CCD ---
:1985 External Reference #:[id number] Author Organization [facility] Care Team Providers Name Role Phone Dimas CASTELLANOS Unavailable Unavailable IMCA Unavailable Unavailable JamesDolores Primary Care Provider Dolores Ramirez Primary Care Provider Allergies Reported Allergen Reaction(s) Severity Date of Onset Location Acetaminophen / Nausea And Vomiting Mild 08-14-2019 - [facility], oxyCODONE [place] ([address]) Medications Current Medications Medication Name Sig Date Prescriber Location Albuterol / ipratropium-albuterol 08-17-2019 [facility], Ipratropium (DUONEB) nebulizer [place] ([address] ) solution 1 ampule ALPRAZolam ALPRAZolam (NIRAVAM) 01-09-2020 [facility], dissolvable tablet [place] ([address] ) 0.25 mg Aspirin aspirin 81 MG EC 08-26-2019 Samuel Diogenes Hagen [facility], tablet Take 1 tablet [place] (451 35) by mouth daily 30 tablet 3 08/27/2019 Active 325 mg, Oral, DAILY, First 08-14-2019 - 08-25-2019 [facility], [place] ([address]) dose on 08/17/19 at 1830 Calcium Chloride / lactated ringers 01-09-2020 [place] Lactate / Potassium infusion (98934) Chloride / Sodium Chloride lactated ringers 12-11-2019 [facility] [place], [place] infusion (48890) lactated ringers 11-15-2019 - 11-15-2019 [place] infusion ([address]74) Intravenous, at 125 09-27-2019 [place] mL/hr, CONTINUOUS, (17708) Starting Mon09/27/19 at 1730, Post-op lactated ringers 09-27-2019 - 09-27-2019 [facility] [place] infusion (68197) Intravenous, at 125 08-23-2019 - 08-24-2019 Pepe Verde [facility], [place] mL/hr, CONTINUOUS, (39990) Starting 08/23/19 at 1930 lactated ringers 08-23-2019 - 08-23-2019 Carrington Stephens [facility] [place] infusion (81964) Intravenous, at 125 08-17-2019 - 08-20-2019 Alberto Rome [facility], [place] mL/hr, CONTINUOUS, (25125) Starting 08/17/19 at 1830 lactated ringers 08-17-2019 - 08-17-2019 [facility] [place] infusion (52669) lactated ringers 08-14-2019 - 08-14-2019 [facility] [place] (85774) cefepime cefepime (MAXIPIME) 2 g 11-16-2019 Felix Love [place] IVPB extended (mini-bag) (45 237) Cetirizine 10 mg, Oral, DAILY, First 11-15-2019 [place] dose on Mon11/15/19 at 1700 ( 14854) 10 mg, Oral, DAILY, First dose 09-27-2019 [facility], [place] ([address]) on Mon09/27/19 at 1730 cetirizine (ZYRTEC) tablet 10 08-15-2019 - 08-17-2019 [place], [place] ([address]) mg diphenhydrAMINE diphenhydrAMINE (BENADRYL) 01-09-2020 - [facility], [place] 12.5 mg 01-09-2020 [place] ([address]) diphenhydrAMINE (BENADRYL) 12-11-2019 - 12-11-2019 [place], [place] injection 12.5 mg (13887) Docusate docusate sodium (COLACE) 01-09-2020 - 02-08-2020 [place] 100 MG capsule Take 1 (88743 ) capsule by mouth 2 times daily 60 capsule 0 01/09/2020 02/08/2020 Active docusate sodium (COLACE) capsule 100 mg 11-17-2019 [place] ([address]) docusate sodium (COLACE) capsule 100 mg 08-20-2019 [place] ([address]367) Docusate / sennosides, [facility] 1 tablet, Oral, 2 TIMES 09-27-2019 [place] DAILY, First dose on (39318) Mon09/27/19 at 2100, Post-op sennosides-docusate sodium 08-15-2019 - 08-20-2019 [place] (SENOKOT-S) 8.6-50 MG tablet 2 ( 43917) tablet Enoxaparin enoxaparin (LOVENOX) injection 08-18-2019 [place] ([address]) 40 mg fentaNYL fentaNYL (SUBLIMAZE) injection 01-09-2020 [place] ([address]) 50 mcg fentaNYL (SUBLIMAZE) injection 25 mcg 01-09-2020 [place] ([address]51) FLUoxetine FLUoxetine (PROZAC) 07-17-2019 - Mara Bernal [facility] 20 MG capsule Take 1 09-28-2019 [place] ([address]) capsule by mouth daily 30 capsule 5 07/17/2019 Active heparin heparin flush 100 08-15-2019 [facility] th- UNIT/ML injection 250 [place] ([address]) Units hydrALAZINE hydrALAZINE 01-09-2020 [facility]- (APRESOLINE) [place] ([address]) injection 5 mg hydrALAZINE (APRESOLINE) injection 5 mg 12-11-2019 [place] ([address]) HYDROmorphone HYDROmorphone (DILAUDID) 01-09-2020 [place] injection 0.25 mg (68512) HYDROmorphone (DILAUDID) 01-09-2020 [facility], [place] 0.5 mg [place] (16468) HYDROmorphone (DILAUDID) 12-11-2019 [facility], injection 1 mg [place] (22642) HYDROmorphone (DILAUDID) 12-11-2019 [facility] [place] 0.5 mg [place] (76922) HYDROmorphone (DILAUDID) 12-11-2019 [facility] [place] 0.25 mg [place] (07829) HYDROmorphone (DILAUDID) 08-20-2019 - Heber Hayes [facility] [place], [place] 0.5 mg 08-23-2019 [place] (19670) HYDROmorphone (DILAUDID) 08-17-2019 - [facility] Eliu [facility]- [place], 1 MG/ML injection 08-17-2019 [place] (09788) HYDROmorphone (DILAUDID) 08-17-2019 - Edwar Yan [facility] [place], [place] 0.5 mg 08-17-2019 [place] (43752) HYDROmorphone (DILAUDID) 08-16-2019 - Randy Harris [facility], [place] 1 mg 08-16-2019 [place] (13431) HYDROmorphone (DILAUDID) 08-15-2019 - [facility] [place], [place] 1 mg 08-15-2019 [place] (97208) HYDROmorphone HYDROmorphone 09-27-2019 [facility]- (DILAUDID) injection (DILAUDID) [place] ([address]) 0.25 mg 0.25 mg Ibuprofen ibuprofen 12-11-2019 - Miesha Otoole [facility] (ADVIL;MOTRIN) 800 MG 12-21-2019 [place] ([address]) tablet Take 1 tablet by mouth 3 times daily as needed for Pain (with meals) 30 tablet 1 12/11/2019 Active iopamidol iopamidol 08-15-2019 [facility]- (ISOVUE-370) 76 % (ISOVUE-370) 76 % [place] ([address]38) injection 100 mL injection 100 mL Ketorolac ketorolac (TORADOL) 08-24-2019 - [facility]- [place] 30 mg 08-29-2019 [place] (6[address] 7) ketorolac (TORADOL) injection 08-20-2019 - 08-23-2019 [facility] [place] ([address]) 30 mg Labetalol labetalol (NORMODYNE;TRANDATE) 01-09-2020 [place] injection 5 mg (19304) labetalol (NORMODYNE;TRANDATE) injection 5 12-11-2019 [place] ([address]) mg Lidocaine lidocaine PF 1 % injection 01-09-2020 - 01-09-2020 [place] 1 mL (09850) lidocaine PF 1 % injection 1 mL 12-11-2019 - 12-11-2019 [place] ([address]) Meperidine meperidine (DEMEROL) 01-09-2020 Heber Hayes [place] injection 12.5 mg (63018) meperidine (DEMEROL) injection 12-11-2019 [place] ([address]) 12.5 mg morphine sulfate morphine sulfate 11-16-2019 Fabio A [facility]- (PF) injection 2 mg (PF) injection 2 [place] ([address]) mg Ondansetron ondansetron 01-09-2020 - [facility] (ZOFRAN) injection 01-09-2020 [place] (4 5237) 4 mg ondansetron (ZOFRAN) injection 4 12-11-2019 - 12-11-2019 [place] mg (77072) 4 mg, Intravenous, EVERY 6 HOURS 08-14-2019 [place], [place] PRN, Nausea, Vomiting, Starting (39843) 08/14/19 at 1623 Administer if oral route cannot be used. oxyCODONE oxyCODONE 01-09-2020 - [facility] (ROXICODONE) 01-09-2020 [place] ([address]) immediate release tablet 5 mg POLYETHYLENE GLYCOL polyethylene glycol 11-17-2019 Greg Corbett [facility] 3350 (GLYCOLAX) packet 17 [place] ([address]) g polyethylene glycol (GLYCOLAX) packet 17 g 08-20-2019 [place] ([address]98) Promethazine promethazine (PHENERGAN) 01-09-2020 - 01-09-2020 [place] injection 6.25 mg (06988) promethazine (PHENERGAN) 12-11-2019 - 12-11-2019 [place] injection 6.25 mg (34590) promethazine (PHENERGAN) tablet 11-15-2019 [place] 12.5 mg (28764) promethazine (PHENERGAN) tablet 09-27-2019 [place] 12.5 mg (82065) sennosides, [facility] senna (SENOKOT) tablet 8.6 mg 08-20-2019 [place] ([address]88) Sodium Chloride sodium chloride flush 0.9 % 01-09-2020 [place] injection 10 mL (65833) 10 mL, Intravenous, EVERY 11-15-2019 [place] 12 HOURS SCHEDULED (2 (77172) times per day), First dose on Mon11/15/19 at 2100 10 mL, Intravenous, PRN, 11-15-2019 [place] [facility], After every IV (02754 ) line use, Starting Mon11/15/19 at 1554 10 mL, Intravenous, EVERY 09-27-2019 [place], [place] 12 HOURS SCHEDULED (2 (96887) times per day), First dose on Mon09/27/19 at 2100, Post-op 10 mL, Intravenous, PRN, 09-27-2019 [place] [facility], Starting Mon (67869) 09/27/19 at 1705 After every IV line use Post-op 0.9 % sodium chloride 08-25-2019 - 08-25-2019 Michelle Cabrera [place] bolus (57126) 0.9 % sodium chloride 08-17-2019 - 08-18-2019 [place] bolus (07400) sodium chloride flush 0.9 08-15-2019 [place], [place] % injection 10 mL (08511) sodium chloride flush 0.9 08-15-2019 [place] % injection 10 mL (75504) 10 mL, Intravenous, EVERY 08-14-2019 [place], [place] 12 HOURS SCHEDULED (2 (61295) times per day), First dose on Mon08/14/19 at 2100 10 mL, Intravenous, PRN, 08-14-2019 [place] [facility], After every IV (24870 ) line use, Starting 08/14/19 at 1623 vancomycin (VANCOCIN) vancomycin (VANCOCIN) 11-15-2019 [place], [place] 1,250 mg in dextrose 5 % 1,250 mg in dextrose 5 % (95452) 250 mL IVPB 250 mL IVPB vancomycin (VANCOCIN) 1,250 mg 08-17-2019 - 08-27-2019 [place] ([address]68) in dextrose 5 % 250 mL IVPB vancomycin (VANCOCIN) vancomycin 08-27-2019 Victor Manuel K Mimi [facility], 1,500 mg in dextrose (VANCOCIN) 1,500 mg [place] ([address]85) 5 % 250 mL IVPB in dextrose 5 % 250 mL IVPB Completed/Discontinuned Medications Medication Name Sig Date Prescriber Location Acetaminophen acetaminophen (TYLENOL) 01-09-2020 - [facility], tablet 1,000 mg 01-09-2020 [place] ([address]) acetaminophen (TYLENOL) tablet 12-11-2019 - 12-11-2019 [place], [place] 1,000 mg (88881) 650 mg, Oral, EVERY 4 HOURS PRN, 11-15-2019 [place] Pain Mild (1-3), Fever, Fever (4 5237) >100.5 F (38 C), Starting 11/15/19 at 1554 Maximum dose of acetaminophen is 4000 mg from all sources in 24 hours. acetaminophen (TYLENOL) tablet 11-15-2019 - 11-15-2019 [place], [place] 1,000 mg (62984) 650 mg, Oral, EVERY 4 HOURS PRN, 09-27-2019 [place] Other, Pain (1-10), Starting Fri (91017) 09/27/19 at 1705 Give in addition to any other pain medication ordered at same time for any pain indication. Post-op acetaminophen (TYLENOL) tablet 09-27-2019 - 09-27-2019 [place], [place] 1,000 mg (28360) acetaminophen (TYLENOL) tablet 08-23-2019 - 08-24-2019 [place], [place] 650 mg (61495) acetaminophen (TYLENOL) tablet 08-19-2019 - 08-20-2019 [facility], [place] 650 mg (00699) acetaminophen (OFIRMEV) infusion 08-17-2019 - - [facility], [place] 1,000 mg (36395) acetaminophen (TYLENOL) tablet 08-14-2019 - - [facility], [place] 1,000 mg (44605) Acetaminophen / HYDROcodone-acetaminophen 01-09-2020 - Sushila Cochran Caryn HYDROcodone (NORCO) 5-325 MG per tablet 01-16-2020 [facility], Indications: [place] ([address]53) 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 28 tablet 0 01/09/2020 01/16/2020 Active HYDROcodone-acetaminophen (NORCO) 12-11-2019 - Miesha Segundomao [facility]- 5-325 MG per tablet Indications: 12-18-2019 [place] ([address]) S/P split thickness skin graft Take 1 tablet by mouth every 6 hours as needed for Pain for up to 7 days. Intended supply: 7 days. Take lowest dose possible to manage pain 28 tablet 0 12/11/2019 12/18/2019 Active HYDROcodone-acetaminophen (NORCO) 11-15-2019 [facility]- 5-325 MG per tablet 1 [place] ([address]) HYDROcodone-acetaminophen (NORCO) 11-15-2019 - Steven Knutson 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 Intended supply: 7 days. Take lowest dose possible to manage pain 42 tablet 0 11/15/2019 11/22/2019 Active HYDROcodone-acetaminophen (NORCO) 09-28-2019 - Michelle Cabrera [facility]- 5-325 MG per tablet Indications: 10-05-2019 [place] ([address]) Wound dehiscence Take 1 tablet by mouth every 6 hours as needed for Pain for up to 7 days. 28 tablet 0 09/28/2019 10/05/2019 Active HYDROcodone-acetaminophen (NORCO) 09-27-2019 [facility]- 5-325 MG per tablet 1 [place] ([address]) HYDROcodone-acetaminophen (NORCO) 08-27-2019 - Samuel Diogenes Hieu [facility] 5-325 MG per tablet Indications: 01-09-2020 [place] ([address]) Closed torus fracture of distal end of left tibia with delayed healing, subsequent encounter Take 1 tablet by mouth every 6 hours as needed for Pain for up to 7 days. 28 tablet 0 08/27/2019 09/03/2019 Active HYDROcodone-acetaminophen (NORCO) 08-20-2019 [facility] 5-325 [place] per tablet 1 [place] ([address]) HYDROcodone-acetaminophen (NORCO) 08-19-2019 - [facility] 5-325 MG per tablet 1 tablet 08-27-2019 [place] ([address]) alteplase (CATHFLO) alteplase (CATHFLO) 11-16-2019 - [facility], injection 1 mg injection 1 mg 11-16-2019 [place] (83612) alteplase (CATHFLO) injection 1 11-16-2019 - 11-16-2019 [facility] ([address]147) mg ceFAZolin 2 g, Intravenous, EVERY 8 09-27-2019 - 09-28-2019 [facility], [place] HOURS, 3 doses, First dose ( 87094) on Mon09/27/19 at 1730, Last dose on Mon09/28/19 at 0930, Post-op 2 g, Intravenous, EVERY 8 08-14-2019 - 08-15-2019 German Cabrera [place], [place] HOURS, First dose on Mon (82164) 08/14/19 at 1645, Until Discontinued ceFAZolin (ANCEF) 2 g in 08-14-2019 - 08-14-2019 Mando Jing [facility], [place] dextrose 4 % 100 mL IVPB (46596) (premix) ceFAZolin (ANCEF) ceFAZolin (ANCEF) 12-11-2019 - Jesse R Boris [facility]- 2 g in dextrose 5 2 g in dextrose 5 12-11-2019 [place] (36446) % 100 mL IVPB % 100 mL IVPB celecoxib celecoxib 01-09-2020 - [facility]- (CELEBREX) capsule 01-09-2020 [place] (4 2027) 400 mg celecoxib (CELEBREX) capsule 11-15-2019 - 11-15-2019 [facility] ([address]77) 400 mg celecoxib (CELEBREX) capsule 08-14-2019 - 08-14-2019 [facility] (89218) 400 mg Ciprofloxacin ciprofloxacin (CIPRO) 05-22-2019 - Historical [facility]- 500 MG tablet TAKE 1 08-27-2019 [place] ([address]) TABLET BY MOUTH TWICE Historical DAILY 0 05/22/2019 Provider 08/27/2019 Discontinued (Stop Taking at Discharge) Famotidine famotidine (PEPCID) 01-09-2020 - [facility]- tablet 20 mg 01-09-2020 [place] ([address]) famotidine (PEPCID) tablet 20 12-11-2019 - 12-11-2019 [place] ([address]74) mg famotidine (PEPCID) tablet 20 11-15-2019 - 11-15-2019 [place] ([address]91) mg famotidine (PEPCID) tablet 20 09-27-2019 - 09-27-2019 [place] (84739) mg famotidine (PEPCID) tablet 20 08-14-2019 - 08-14-2019 [place] (98[address]) mg gabapentin gabapentin (NEURONTIN) 01-09-2020 - 01-09-2020 [place], [place] capsule 300 mg (09861) gabapentin (NEURONTIN) 11-15-2019 - 11-15-2019 [place] capsule 300 mg (10996) gabapentin (NEURONTIN) 09-27-2019 - 09-27-2019 Jesse R Boris [place] capsule 300 mg (75679) gabapentin (NEURONTIN) 08-14-2019 - 08-14-2019 [place] capsule 300 mg (00103) guaiFENesin guaiFENesin 08-15-2019 - [facility]- (MUCINEX) extended 08-17-2019 [place], [place] (4 5237) release tablet 600 mg LORazepam LORazepam (ATIVAN) 2 08-23-2019 - Historical [facility]- MG/ML injection 08-23-2019 [place] (4523 7) LORazepam (ATIVAN) 08-23-2019 - 08-23-2019 Venkat Arroyo [place], [place] injection 0.5 mg (86414) Magnesium Sulfate magnesium sulfate 08-17-2019 - Valencia Oakes [facility]- 2 g in 50 mL IVPB 08-17-2019 [place] (45 237) premix Midazolam midazolam 01-09-2020 - Historical [facility]- (VERSED) 2 MG/2ML 01-09-2020 Provider [place] (45 237) injection midazolam (VERSED) 01-09-2020 German Betancourt [place], [place] injection 2 mg (46583) midazolam (VERSED) 11-15-2019 - 11-15-2019 Venkat Monroy Cruz [place], [place] injection 2 mg (05007) midazolam (VERSED) 09-27-2019 - 09-27-2019 Edwar Yan [place], [place] injection 2 mg (72538) midazolam (VERSED) 08-13-2019 - 08-14-2019 Altaf Lara [place], [place] injection 2 mg (74312) Morphine morphine sulfate 11-18-2019 - Santi Page [facility], (PF) injection 4 mg 11-18-2019 [place] (4523 7) morphine sulfate (PF) 11-16-2019 - Petar Nuno [facility], injection 2 mg 11-16-2019 [place] (51925) Vancomycin vancomycin (VANCOCIN) 1000 mg in 09-28-2019 [place] ([address]607) dextrose 5% 200 mL IVPB VANCOMYCIN HCL IV Infuse 09-17-2019 - Historical Provider [facility], 1 g intravenously every 09-28-2019 [place] (4523 7) 12 hours 0 09/17/2019 09/28/2019 Active vancomycin (VANCOCIN) 08-15-2019 - Dat Honeycutt [facility], 1000 mg in dextrose 5% 08-17-2019 [place] (88119 ) 200 mL IVPB VANCOMYCIN HCL IV Infuse 01-09-2020 Historical Provider [facility], intravenously 0 [place] ([address]645) 01/09/2020 Discontinued VANCOMYCIN HCL IV Infuse Historical Provider [facility], intravenously 0 Active [place] (56568 ) Problems Active Problems Category Problem Name Status Date Location Anxiety disorders Anxiety Active 12-25-2014 - [facility]- [place] ([address]) Complication of device; Infection associated with Active [facility], implant [place] graft [place] ([address]) Endometriosis Endometriosis (clinical) Active 06-17-2016 - [facility] [place] ([address]) Fracture of lower limb Closed fracture distal Active 08-13-19 [facility] [place], [place]ia [place] ([address]79) Infective arthritis and Osteomyelitis of tibia Active [facility], osteomyelitis (except [place] (45 237) that caused by tuberculosis or sexually transmitted disease) Mood disorders Depressive disorder Active 12-25-2014 [facility] [place] ([address]) Other infections; Sequela of infection Active [facility], including parasitic caused by Corynebacterium [place] (28617) Residual codes; At risk of breast cancer Active 06-27-2018 - [facility], [place]classified [place] ([address]094) Residual codes; H/O: surgery Active [facility], [place]classified [place] (57834) Past or Other Problems Category Problem Name Status Date Location Abdominal pain Chronic pelvic pain of Completed 06-17-2016 - [facility]- [place] ([address]37) Acute posthemorrhagic Acute posthemorrhagic Completed 08-17-2019 [facility] anemia anemia [place] (88326) Complications of Postoperative wound Completed 09-27-2019 [facility]- surgical procedures or breakdown [place] (73188) medical care Fluid and electrolyte Hyponatremia Completed 08-19-2019 [facility]- disorders [place] ([address]48) Headache; including Posttraumatic headache Completed 12-25-2014 [facility] migraine [place] ([address]165) Open wounds of Unspecified open wound, Completed 08-15-2019 - [facility] extremities left ankle, [place] ( [address]) encounter Open wounds of head; Wound dehiscence Completed 08-13-2019 [facility] neck; and trunk [place] (2565 7) Residual codes; Family history of Completed 06-27-2018 [facility] ealt- unclassified malignant neoplasm [place] ([address]) breast Results Result Name Value Range Unit Interpretation Flag Date Location op note on Op Note PATIENT: DENYS ARRIOLA Normal 2019 [facility] (94556) ADMISSION DATE: 01/09/2020 SURGERY DATE: 01/09/2020 DATE [...] Diagnosis: Left distal tibia nonunion. Anesthesia: General. Patient Coordinator: Steven Ortega M.D. Estimated Blood Loss: 100 cc. Fluids: Crystalloid. Clinical History: The patient is a 34-year-old female who pr eviously underwent ORIF of a distal tibia fracture at [facility]. She immediately had wound breakdown and was sent to [facility] after hav ing exposed hardware in the [...] condition without comp lication. Diskriter Job ID: [id number] Deon Davila MD DOD:01/10/2020 04:02 P EM/dsk DOT:01/10/2020 05:04 P Job Number: [id number] Document Number: [id number] cc: Deon Davila MD [address] [address] cult/stain - aerobic and anaerobic on 2019-11-20 CULT/STAIN - AEROBIC STAIN GRAM --> Status: F Norm al 11-20-2019 [facility] AND ANAEROBIC Rare polymorphonuclear cells/lpf. System (39436) No organisms seen. No organisms seen. CULT./ST. BACTERIA --> Status: F No growth at 3 days. CULTURE ANAEROBE --> Status: F No growth of anaerobes at 5 days. Comment: Order Comment: Specimen cat ected in O.R. Performed By: #### Alla HILLS/ MICAELA #### [address] [address] vancomycin trough o n 2019-11-17 Vancomycin Trough 12.1 15.0-20.0 ug/mL Low 11-17-2019 [facility] (64422) Comment: Result Comment: . Performed By: #### Alla HILLS/ MICAELA #### [facility] [address] [address] No panel information on 2019-11-17 Interpretation and review Abnormal [place] of laboratory results (05348) Vancomycin Tr 12.1 15 - 20 ug/mL Low 11-17-2019 [place] ([address]) Comment: . Test Performed by [facility] 11-17-2019 [place] ([address]) [address] [address] hemogram on 2019-11 Erythrocyte distribution 13.9 11.5-14.5 % Normal 11-15 [facility] width (RBC) [Ratio] (48919) Comment: Performed By: #### Alla HILLS/ MICAELA #### [place] [address] [address] [place], [place] Hematocrit (Bld) [Volume 30.5 35.0-47.0 % Low 11-15 [facility] System fraction] (69064) Comment: Performed By: #### Alla HILLS/ MICAELA #### [place] [address] [address] [place], [place] Hemoglobin (Bld) [Mass/Vol] 10.3 11.7-16.0 g/dL Low [facility] System (30252) Comment: Performed By: #### REINIER C/ MICAELA #### [place] [address] [address] [place], [place] MCH (RBC) [Entitic mass] 27.2 26.0-34.0 pg Normal 11-15 [facility] (34511) Comment: Performed By: #### Alla HILLS/ MICAELA #### [place] [address] [address] [place], [place] MCHC (RBC) [Mass/Vol] 33.8 32.0-36.0 % Normal 11-16-19 20 [facility] (20441) Comment: Performed By: #### Alla HILLS/ MICAELA #### [place] [address] [address] [place], [place] MCV (RBC) [Entitic vol] 80.5 79.0-98.0 fL Normal 2019 [facility] (22164) Comment: Performed By: #### Alla HILLS/ MICAELA #### [place] [address] [address] [place], [place] Platelet mean volume (Bld) 8.5 7.4-10.4 fL Normal [facility] [Entitic vol] (51850 ) Comment: Performed By: #### Alla HILLS/ MICAELA #### [place] [address] [address] [place], [place] Platelets (Bld) [#/Vol] 327 140-440 10*3/uL Normal 2019 [facility] (28038) Comment: Performed By: #### Alla HILLS/ MICAELA #### [facility] [address] [place], [place] RBC (Bld) [#/Vol] 3.79 3.80-5.20 10*6/uL Low 11-16-2019 [facility] (96408) Comment: Performed By: #### REINIER C/ MICAELA #### [place] [address] [address] [place], [place] WBC (Bld) [#/Vol] 14.3 3.6-10.7 10*3/uL High 11-16-2019 [facility] (47852) Comment: Performed By: #### REINIER C/ MICAELA #### [place] [address] [address] [place], [place] basic metabolic panel on 2019-11-16 Calcium [Mass/Vol] 9.1 8.4-10.4 mg/dL Normal 11-16-2019 [facility] (37318) Comment: Performed By: #### Alla HILLS/ MICAELA #### [place] [address] [address] [place], [place] Anion gap [Moles/Vol] 9 Normal 11-16-19 [facility] (53452) Comment: Performed By: #### Alla HILLS/ MICAELA #### [place] [address] [address] [place], [place] CO2 [Moles/Vol] 21 22-30 mmol/L Low 11-16-2019 [facility] (11310) Comment: Performed By: #### Alla HILLS/ MICAELA #### [place] [address] [address] [place], [place] Creatinine [Mass/Vol] 0.63 0.52-1.25 mg/dL Normal 11-16-19 [facility] (75373) Comment: Performed By: #### REINIER C/ MICAELA #### [place] [address] [address] [place], [place] GFR/1.73 sq M > 90.0 >60 mL/min/{1.73_m2} Normal 0 [facility] predicted among Syst em (20699) blacks MDRD (S/P/Bld) [Vol rate/Area] Comment: Performed By: #### Alla HILLS/ MICAELA #### [facility] [address] [place], [place] GFR/1.73 sq M > 90.0 >60 mL/min/{1.73_m2} Normal 0 [facility] predicted among Syst em (10841) non-blacks MDRD (S/P/Bld) [Vol rate/Area] Comment: Result [...] Performed By: #### Alla HILLS/ MICAELA #### [facility] [address] [place], [place] Glucose [Mass/Vol] 132 70-100 mg/dL High 11-16-2019 [facility] (30150) Comment: Performed By: #### Alla HILLS/ MICAELA #### [facility] [address], [place] Urea nitrogen [Mass/Vol] 17 7-20 mg/dL Normal 11-15 [facility] (33076) Comment: Performed By: #### Alla HILLS/ MICAELA #### [facility] [address], [place] Chloride [Moles/Vol] 103 98-107 mmol/L Normal 0 [facility] (94692) Comment: Performed By: #### REINIER C/ MICAELA #### [facility] [address], [place] Potassium [Moles/Vol] 4.3 3.5-5.1 mmol/L Normal 11-16-19 [facility] (77244) Comment: Performed By: #### REINIER C/ MICAELA #### [facility] [address], [place] Sodium [Moles/Vol] 133 135-145 mmol/L Low 11-16-2019 [facility] (35167) Comment: Performed By: #### REINIER C/ MICAELA #### [facility] [address], [place] No panel information on 2019-11-16 Anion gap [Moles/Vol] 9 mmol/L 11-16-19 20 [place] ([address]) Calcium [Mass/Vol] 9.1 8.4 - 10.4 mg/dL 11-16-2019 [place] ([address]) Chloride [Moles/Vol] 103 98 - 107 mmol/L 0 [place] ([address]) CO2 [Moles/Vol] 21 22 - 30 mmol/L Low 11-16-2019 [place] ([address]) Creatinine [Mass/Vol] 0.63 0.52 - 1.25 mg/dL 2019 [place] ([address]) EGFR IF NonAfrican >90.0 >60 mL/min 11-16-2019 [place] ([address]) Comment: KDIGO guidelines provide the following GFR [...] (GFR) from serum creatinine in children is [facility] Bedside Rinaldi equation. It is less accurate in patie nts with extremes of muscle mass, restriction of dietary protein, ingestion of creatine, extra-renal metabolism of cr eatinine, or treatment with medications that affect rahul l tubular creatinine secretion. GFR/1.73 sq M >90.0 >60 mL/min mL/min/{1.73_m2} 11-16-19 20 [facility] predicted among [facility], blacks MDRD [place] (1423 7) (S/P/Bld) [Vol rate/Area] Glucose [Mass/Vol] 132 70 - 100 mg/dL High 11-16-2019 [place] ([address]) Interpretation and Abnormal 11-16-2019 [facility] review of [facility] , laboratory results K [place] (41192) Potassium 4.3 3.5 - 5.1 mmol/L 11-16-2019 [facility] [Moles/Vol] [place] ([address]) Sodium [Moles/Vol] 133 135 - 145 mmol/L Low 11-16-2019 [place] ([address]) Urea nitrogen 17 7 - 20 mg/dL 11-16-2019 [facility] [Mass/Vol] [place] ([address]) Test 11-16-2019 [facility] Performed by [facility] [place] (998 23) System, [address] [place] [address] Erythrocyte 13.9 11.5 - % 11-16-2019 [facility] distribution width 14.5 H [facility], (RBC) [Ratio] [place] (37 200) Hematocrit (Bld) 30.5 35 - 47 % Low 11-16-2019 [facility] [Volume fraction] [place] ([address]) Hemoglobin (Bld) 10.3 11.7 - 16 g/dL Low 11-16-2019 [facility] [Mass/Vol] [place] ([address]) Interpretation and Abnormal 11-16-2019 [facility] review of [facility] , laboratory results K Y (60953) MCH (RBC) [Entitic 27.2 26 - 34 pg 11-16-2019 [facility] mass] [place] ([address]) MCHC (RBC) 33.8 32 - 36 % 11-16-2019 [facility] [Mass/Vol] [facility] [place] (67130) MCV (RBC) [Entitic 80.5 79 - 98 fL 11-16-2019 [facility] vol] [facility] [place] ([address]) Platelet mean 8.5 7.4 - 10.4 fL 11-16-2019 [facility] y volume (Bld) [facility], [Entitic vol] [place] (45 237) Platelets (Bld) 327 140 - 440 10*3/uL 11-16-2019 [facility] [#/Vol] [place] ([address]) RBC (Bld) [#/Vol] 3.79 3.8 - 5.2 10*6/uL Low 11-16-2019 [place] ([address]) WBC (Bld) [#/Vol] 14.3 3.6 - 10.7 10*3/uL High 11-16-2019 [place] ([address]) Test 11-16-2019 [facility] Performed by [facility] (452 37) System, [address] [place] [address] op note on Op Note Hand Plastic & Reconstructive Surgery No rmal 11-15-2019 [facility] Operative Report (00 000) 11/15/19 Pre-operative Diagnosis: [...] to normal structures that can lead to nursing home problems of pain or dysfunction, wound healing [...] patient's ASA was verified by the nurse documentation spec and the anesthesi a staff. Fire risk [...] flap. The posterior flap edge and the [place] tissue was trimmed of scar tissue. At [...] to PACU in sta ble condition The first-field technical assistant was critical to all steps of the operati on, including retraction and arm extremity stabilization during exposure, as well as the deep and superficial wound closure. I understand that section 1842(b)(7)(D) of the Social Security Act generall y prohibits Medicare physician fee schedule payment for the services of assistants at [facility] y in teaching hospitals when qualified residents are available to furnish such services . I certify that the services for which payment is claimed were medically necessary and that no qualified resident was available to pe rform the services. I further understand that these services are subject to post- payment review by the Medicare carrier. Surgeon: Boris-PlasticYovanny (orthopaedics dictated [facility]) Patient Coordinator(s): Xiang ASHER Anesthesia: General endotrachial anesthesia and Regional Estimated blood loss: 300 ml Total IV fluids: 1300 ml crystalloids Blood Transfusion?: No Total Urine Output: 450 cc Drains: Wound vac Specimens: none Implants: Please see Yovanny op note for implants Complications: none Condition: Stable Op Note [facility] Normal 06-0 [facility] (88917) [address] [facility] [address] Dept: [phone] Loc: [phone] Operative Report Patient Name: Denys Arriola Date [...] antibiotic cement spacer Surgeon: Deon Davila M.D. Patient Coordinator(s): Steven Knutson M.D. and Shad Mon Anesthesia: [...] as well as medical complications such as UT, stroke, PE, DVT, and even . Pt [...] impregnated nail was created using a 40 Occitan chest tube with tobramycin and vancomycin im [...] 2 TS GEL ABO Group: Normal 11-12-2019 [facility]th System (63605) B Rh, Gel: POS Antibody Screen Gel: NEG Comment: Performed By: #### CXTIS, C/ MICAELA #### [facility] [employer] [address] [place] [phone] sars-cov-2 on 11-11 SARS-CoV-2 SARS-CoV-2 --> Status: F Normal [facility] Not Detected (78157) Expected Result: Not Detected _ Real-time, RT-PCR performed on the BD MAX System by the [facility] Service. Negative results do not preclude SARS-CoV-2 infection and should not be used as the sole basis for treatment or other patient management decisions. This assay was developed by [employer] and distributed under an Emergency Use Authorization (EUA) granted by the FDA for the qualitative detection of SARS-CoV-2 nucleic acid. Expected Result: Not Detected _ Real-time, RT-PCR performed on the [employer] MAX System by the [facility]. Negative results do not preclude SARS-CoV-2 infection and should not be used as the sole basis for treatment or other patient management decisions. This assay was developed by [employer] and distributed under an Emergency Use Authorization (EUA) granted by the FDA for the qualitative detection of SARS-CoV-2 nucleic acid. Comment: Order Comment: Specimen cat ected in O.R. Performed By: #### Alla HILLS/ MICAELA #### [place] [address], [place] hemoglobin and hematocrit on 2019-11-12 Hematocrit (Bld) [Volume 35.7 35.0-47.0 % Normal 11-11 [facility] fraction] (55295) Comment: Performed By: #### Alla HILLS/ MICAELA #### [place] [address] [place] [address] Hemoglobin (Bld) 11.8 11.7-16.0 g/dL Normal 11-12-2019 [facility] [Mass/Vol] (99285) Comment: Performed By: #### REINIER C/ MICAELA #### [place] [address] [place] [address] No panel information on 2019-11-12 SARS-CoV-2 Not Detected 11-12-2019 [facility]- Expected Result: [place] ([address]) _ Real-time, RT-PCR performed on the BD MAX System by the [facility]. Negative results do not preclude SARS-CoV-2 infection and should not be used as the sole basis for treatment or other patient management decisions. This assay was developed by [employer] and [email or web address] and distributed under an Emergency Use Authorization (EUA) granted by the FDA for the qualitative detection of SARS-CoV-2 nucleic acid. Test Performed by 11-12-2019 [place] ([address]) [address] [place] [address] Specimen Source Comment:Nasopharyngea l Swab Sodium [Moles/Vol] B 11-12-2019 [place] (57 [address]) Sodium [Moles/Vol] NEG mmol/L 11-12-2019 [place] (53 [address]) Sodium [Moles/Vol] POS mmol/L 11-12-2019 [place] (96 163) Test Performed by 11-12-2019 [place] ([address]) [address] [place] [address] Hematocrit (Bld) 35.7 35 - 47 % 11-12-2019 [facility]- [Volume fraction] [place] ([address]) Hemoglobin (Bld) 11.8 11.7 - 16 g/dL 11-12-2019 [facility]- [Mass/Vol] [place], [place] (4 5237) Test Performed by 11-12-2019 [place] ([address]) [address] [place] [address] op note on Op Note Hand Plastic & Reconstructive Surgery No rmal 09-27-2019 [facility] Operative Report (00 000) 09/27/19 Pre-operative Diagnosis: [...] to normal structures that can lead to nursing home problems of pain or dysfunction, wound healing [...] patient's ASA was verified by the nurse documentation spec and the anesthesi a staff. Fire risk [...] to PACU in stable condition Surgeon: Boris Patient Coordinator(s): Andrea PGY 6 Anesthesia: General endotrachial anesthesia Estimated blood loss: 50cc Total IV fluids: 350 ml Blood Transfusion?: No Total Urine Output: NR Drains: NO Specimens: none Implants: none Findings: Exposed cement spacer Complications: none Condition: Stable hemogram w/ autodiff on 2019-08-28 Abs Baso Cnt 0.1 0.0-0.2 10*3/uL Normal 08-28-2019 [facility] (77523) Comment: Performed By: #### REINIER C/ MICAELA #### [place] [address], [place] Abs Neutrophile Cnt 6.3 1.8-7.0 10*3/uL Normal 08-28-2019 [facility] (10657) Comment: Performed By: #### REINIER C/ MICAELA #### [facility] [place] [address], [place] Basophils/100 WBC (Bld) 1.1 0.0-2.0 % Normal 2019 [facility] (87240) Comment: Performed By: #### REINIER C/ MICAELA #### [place] [address] [place], [place] Eosinophils (Bld) [#/Vol] 0.3 0.0-0.5 10*3/uL Normal 08-10 [facility] (16706) Comment: Performed By: #### REINIER C/ MICAELA #### [address] [address] [place] [address] Eosinophils/100 WBC (Bld) 3.5 1.0-6.0 % Normal 08-10 [facility] (20322) Comment: Performed By: #### REINIER C/ MICAELA #### [place] [address] [place], [place] Erythrocyte distribution 13.9 11.5-14.5 % Normal 08-27 [facility] width (RBC) [Ratio] (04745) Comment: Performed By: #### REINIER C/ MICAELA #### [place] [address], [place] Granulocytes/100 WBC (Bld) 68.1 40.0-80.0 % Normal [facility] (51088) Comment: Performed By: #### REINIER C/ MICAELA #### [place] [address], [place] Hematocrit (Bld) [Volume 25.2 35.0-47.0 % Low 08-27 [facility] fraction] (25361) Comment: Performed By: #### REINIER C/ MICAELA #### [place] [address] [place], [place] Hemoglobin (Bld) [Mass/Vol] 8.7 11.7-16.0 g/dL Low [facility] (08841) Comment: Performed By: #### REINIER C/ MICAELA #### [place] [address] [place], [place] Lymphocytes (Bld) [#/Vol] 1.9 1.0-4.3 10*3/uL Normal 08-10 [facility] (12211) Comment: Performed By: #### REINIER C/ MICAELA #### [place] [address] [place], [place] Lymphocytes/100 WBC (Bld) 20.9 20.0-40.0 % Normal 08-10 [facility] (19251) Comment: Performed By: #### REINIER C/ MICAELA #### [place] [address] [place], [place] MCH (RBC) [Entitic mass] 30.9 26.0-34.0 pg Normal 08-27 [facility] (70979) Comment: Performed By: #### REINIER C/ MICAELA #### [place] [address] [place], [place] MCHC (RBC) [Mass/Vol] 34.7 32.0-36.0 % Normal 08-28-19 20 [facility] (47594) Comment: Performed By: #### REINIER, C/ MICAELA #### [facility] [address], [place] MCV (RBC) [Entitic vol] 89.1 79.0-98.0 fL Normal 2019 [facility] (64721) Comment: Performed By: #### REINIER, C/ MICAELA #### [facility] [address], [place] Monocytes (Bld) [#/Vol] 0.6 0.0-0.8 10*3/uL Normal 2019 [facility] (67746) Comment: Performed By: #### REINIER C/ MICAELA #### [place] [address] [place], [place] Monocytes/100 WBC (Bld) 6.4 2.0-10.0 % Normal 2019 [facility] (87881) Comment: Performed By: #### REINIER, C/ MICAELA #### [place] [address] [place], [place] Platelet mean volume (Bld) 7.6 7.4-10.4 fL Normal [facility] [Entitic vol] (80553 ) Comment: Performed By: #### REINIER, C/ MICAELA #### [place] [address] [place], [place] Platelets (Bld) [#/Vol] 359 140-440 10*3/uL Normal 2019 [facility] (86682) Comment: Performed By: #### REINIER, C/ MICAELA #### [facility] [address], [place] RBC (Bld) [#/Vol] 2.83 3.80-5.20 10*6/uL Low 08-28-2019 [facility] (10845) Comment: Performed By: #### REINIER, C/ MICAELA #### [place] [address] [place], [place] WBC (Bld) [#/Vol] 9.2 3.6-10.7 10*3/uL Normal 08-28-2019 [facility] (15928) Comment: Performed By: #### REINIER C/ MICAELA #### [facility] [address] [place] [address] basic metabolic panel on 2019-08-28 Anion gap [Moles/Vol] 8 Normal 08-28-19 [facility] (09873) Comment: Performed By: #### REINIER C/ MICAELA #### [facility] [address] [place] [address] Calcium [Mass/Vol] 9.4 8.4-10.4 mg/dL Normal 08-28-2019 [facility] (15580) Comment: Performed By: #### REINIER C/ MICAELA #### [place] [address] [place] [address] CO2 [Moles/Vol] 27 22-30 mmol/L Normal 08-28-2019 [facility] (67698) Comment: Performed By: #### REINIER C/ MICAELA #### [place] [address] [place] [address] Creatinine [Mass/Vol] 0.64 0.52-1.25 mg/dL Normal 08-28-19 [facility] (00550) Comment: Performed By: #### REINIER C/ MICAELA #### [place] [address] [place] [address] GFR/1.73 sq M > 60.0 >60 mL/min/{1.73_m2} Normal 0 [facility] predicted among Syst em (49868) blacks MDRD (S/P/Bld) [Vol rate/Area] Comment: Performed By: #### REINIER C/ MICAELA #### [place] [address] [place] [address] GFR/1.73 sq M > 60.0 >60 mL/min/{1.73_m2} Normal 0 [facility] predicted among Syst em (59735) non-blacks MDRD (S/P/Bld) [Vol rate/Area] Comment: Result Comment: Source- MDRD equation with creatinine calibration to IDMS(NKDEP) eGFR not recommended for nicolas g dose adjustment Performed By: #### Alla HILLS/ MICAELA #### [facility] [address] [place] [address] Glucose [Mass/Vol] 96 70-100 mg/dL Normal 08-28-2019 [facility] (70199) Comment: Performed By: #### Alla HILLS/ MICAELA #### [facility] [address] [place] [address] Urea nitrogen [Mass/Vol] 18 7-20 mg/dL Normal 08-27 [facility] (52071) Comment: Performed By: #### Alla HILLS/ MICAELA #### [facility] [address], [place] Chloride [Moles/Vol] 99 98-107 mmol/L Normal 0 [facility] (75505) Comment: Performed By: #### Alla HILLS/ MICAELA #### [facility] [place] [address], [place] Potassium [Moles/Vol] 4.2 3.5-5.1 mmol/L Normal 08-28-19 20 [facility] (16951) Comment: Performed By: #### Alla HILLS/ MICAELA #### [facility] [place] [address] [place] [address] Sodium [Moles/Vol] 133 135-145 mmol/L Low 08-28-2019 [facility] (76483) Comment: Performed By: #### Alla HILLS/ MICAELA #### [facility] [address] [place] [address] No panel information on 2019-08-28 Anion gap [Moles/Vol] 8 mmol/L 08-28-19 [place] ([address]) Calcium [Mass/Vol] 9.4 8.4 - 10.4 mg/dL 08-28-2019 [place] ([address]) Chloride [Moles/Vol] 99 98 - 107 mmol/L 0 [place] ([address]) CO2 [Moles/Vol] 27 22 - 30 mmol/L 08-28-2019 [place] ([address]) Creatinine [Mass/Vol] 0.64 0.52 - 1.25 mg/dL 2019 [place] ([address]) EGFR IF NonAfrican >60.0 >60 mL/min 08-28-2019 [place] ([address]) Comment: Source- MDRD equation with c reatinine calibration to IDMS(NKDEP) eGFR not recommended for nicolas g dose adjustment GFR/1.73 sq M >60.0 >60 mL/min mL/min/{1.73_m2} 08-28-19 20 [facility] predicted among [facility] blacks MDRD [place] (6888 7) (S/P/Bld) [Vol rate/Area] Glucose [Mass/Vol] 96 70 - 100 mg/dL 08-28-2019 [place] ([address]) Interpretation and Abnormal 08-28-2019 [facility] review of [facility] , laboratory results K Y (56483) Potassium 4.2 3.5 - 5.1 mmol/L 08-28-2019 [facility] [Moles/Vol] [place] ([address]) Sodium [Moles/Vol] 133 135 - 145 mmol/L Low 08-28-2019 [place] ([address]) Urea nitrogen 18 7 - 20 mg/dL 08-28-2019 [facility] [Mass/Vol] [place] ([address]) Test 08-28-2019 [facility] Performed by [facility] (013 82) [facility], [address] [place] [address] Absolute Baso # 0.1 0 - 0.2 10*3/uL 08-28-2019 [place] ([address]) Absolute Neut # 6.3 1.8 - 7 10*3/uL 08-28-2019 [place] ([address]) Basophils/100 WBC 1.1 0 - 2 % 08-28-2019 [facility] (Bld) [place] ([address]) Eosinophils (Bld) 0.3 0 - 0.5 10*3/uL 03-18-2020 [facility] [#/Vol] [place] ([address]) Eosinophils/100 WBC 3.5 1 - 6 % 08-28-2019 [facility] (Bld) [place] ([address]) Erythrocyte 13.9 11.5 - % 08-28-2019 [facility] distribution width [facility].5 [facility] (RBC[facility] [Ratio] [place] (45 237) Granulocytes/100 68.1 40 - 80 % 08-28-2019 [facility] WBC (Bld) [place] ([address]) Hematocrit (Bld) 25.2 35 - 47 % Low 08-28-2019 [facility] [Volume fraction] [place] ([address]) Hemoglobin (Bld) 8.7 11.7 - 16 g/dL Low 08-28-2019 [facility] [Mass/Vol] [place] ([address]) Interpretation and Abnormal 08-28-2019 [facility] , laboratory results K Y (11131) Lymphocytes (Bld) 1.9 1 - 4.3 10*3/uL 08-28-2019 [facility] [#/Vol] [place] ([address]) Lymphocytes/100 WBC 20.9 20 - 40 % 08-28-2019 [facility] (Bld) [place] ([address]) MCH (RBC) [Entitic 30.9 26 - 34 pg 08-28-2019 [facility] mass] [place] ([address]) MCHC (RBC) 34.7 32 - 36 % 08-28-2019 [facility] [Mass/Vol] [place] ([address]) MCV (RBC) [Entitic 89.1 79 - 98 fL 08-28-2019 [facility] vol] [place] ([address]) Monocytes (Bld) 0.6 0 - 0.8 10*3/uL 2020 [facility] [#/Vol] [place] ([address]) Monocytes/100 WBC 6.4 2 - 10 % 08-28-2019 [facility] (Bld) [place] ([address]) Platelet mean 7.6 7.4 - 10.4 fL 08-28-2019 [facility] volume (Bld) [facility], [Entitic vol] [place] (45 237) Platelets (Bld) 359 140 - 440 10*3/uL 08-28-2019 [facility] [#/Vol] [place] ([address]) RBC (Bld) [#/Vol] 2.83 3.8 - 5.2 10*6/uL Low 08-28-2019 [place] ([address]) WBC (Bld) [#/Vol] 9.2 3.6 - 10.7 10*3/uL 08-28-2019 [place] ([address]) Test 08-28-2019 [facility] Performed by [facility] (452 37) System, [address] [place] [address] vancomycin trough o n 2019-08-27 Vancomycin Trough 12.4 15.0-20.0 ug/mL Low 08-27-2019 S [facility] (30525) Comment: Result Comment: . Performed By: #### REINIER C/ MICAELA #### [facility] [address], [place] hemogram w/ autodiff on 2019-08-27 Abs Baso Cnt 0.1 0.0-0.2 10*3/uL Normal 08-27-2019 [facility] (73060) Comment: Performed By: #### REINIER C/ MICAELA #### [place] [address] [place] [address] Abs Neutrophile Cnt 7.3 1.8-7.0 10*3/uL High 08-27-2019 [facility] (53600) Comment: Performed By: #### REINIER C/ MICAELA #### [facility] [address] [place] [address] Basophils/100 WBC (Bld) 0.7 0.0-2.0 % Normal 2019 [facility] (56197) Comment: Performed By: #### REINIER C/ MICAELA #### [facility] [address], [place] Eosinophils (Bld) [#/Vol] 0.3 0.0-0.5 10*3/uL Normal 08-10 [facility] (13021) Comment: Performed By: #### Alla HILLS/ MICAELA #### [facility] [place] [address] Eosinophils/100 WBC (Bld) 3.1 1.0-6.0 % Normal 08-10 [facility] (23246) Comment: Performed By: #### Alla HILLS/ MICAELA #### [place] [address] [place] [address] Erythrocyte distribution 13.7 11.5-14.5 % Normal 08-26 [facility] width (RBC) [Ratio] (43867) Comment: Performed By: #### Alla HILLS/ MICAELA #### [facility] System [facility] [place] [address] Granulocytes/100 WBC (Bld) 70.6 40.0-80.0 % Normal [facility] (32014) Comment: Performed By: #### Alla HILLS/ MICAELA #### [facility] [address] [place] Hematocrit (Bld) [Volume 24.2 35.0-47.0 % Low 08-26 [facility] fraction] (85288) Comment: Performed By: #### Alla HILLS/ MICAELA #### [place] [address] [place] [address] Hemoglobin (Bld) [Mass/Vol] 8.5 11.7-16.0 g/dL Low [facility] (24046) Comment: Performed By: #### Alla HILLS/ MICAELA #### [facility] [address] [place] Lymphocytes (Bld) [#/Vol] 1.9 1.0-4.3 10*3/uL Normal 08-10 [facility] (69561) Comment: Performed By: #### REINIER C/ MICAELA #### [place] [address] [place] [address] Lymphocytes/100 WBC (Bld) 18.7 20.0-40.0 % Low 08-10 [facility] (24755) Comment: Performed By: #### REINIER C/ MICAELA #### [facility] [address], [place] MCH (RBC) [Entitic mass] 31.5 26.0-34.0 pg Normal 08-26 [facility] (01314) Comment: Performed By: #### REINIER C/ MICAELA #### [facility] [address], [place] MCHC (RBC) [Mass/Vol] 35.0 32.0-36.0 % Normal 08-27-19 20 [facility] (12752) Comment: Performed By: #### REINIER C/ MICAELA #### [place] [address] [address] MCV (RBC) [Entitic vol] 90.2 79.0-98.0 fL Normal 2019 [facility] (38202) Comment: Performed By: #### REINIER C/ MICAELA #### [place] [address] [place] Monocytes (Bld) [#/Vol] 0.7 0.0-0.8 10*3/uL Normal 2019 [facility] (44899) Comment: Performed By: #### REINIER C/ MICAELA #### [place] [address] [place] Monocytes/100 WBC (Bld) 6.9 2.0-10.0 % Normal 2019 [facility] (71842) Comment: Performed By: #### REINIER C/ MICAELA #### [facility] [address], [place] Platelet mean volume (Bld) 7.0 7.4-10.4 fL Low [facility] [Entitic vol] (72119 ) Comment: Performed By: #### REINIER C/ MICAELA #### [place] [address] [address] [place] Platelets (Bld) [#/Vol] 327 140-440 10*3/uL Normal 2019 [facility] (56692) Comment: Performed By: #### REINIER, C/ MICAELA #### [facility] [address], [place] RBC (Bld) [#/Vol] 2.69 3.80-5.20 10*6/uL Low 08-27-2019 S [facility] (73873) Comment: Performed By: #### REINIER, C/ MICAELA #### [facility] [address], [place] WBC (Bld) [#/Vol] 10.4 3.6-10.7 10*3/uL Normal 08-27-2019 [facility] (50527) Comment: Performed By: #### REINIER, C/ MICAELA #### [place] [address] [address], [place] basic metabolic panel on 2019-08-27 Calcium [Mass/Vol] 9.1 8.4-10.4 mg/dL Normal 08-27-2019 [facility] ([id number]) Comment: Performed By: #### REINIER C/ MICAELA #### [facility] [address], [place] Anion gap [Moles/Vol] 6 Normal 08-27-19 [facility] (72142) Comment: Performed By: #### REINIER, C/ MICAELA #### [facility] [address], [place] CO2 [Moles/Vol] 29 22-30 mmol/L Normal 08-27-2019 [facility] (89329) Comment: Performed By: #### REINIER, C/ MICAELA #### [facility] [address], [place] Creatinine [Mass/Vol] 0.70 0.52-1.25 mg/dL Normal 08-27-19 [facility] (12067) Comment: Performed By: #### REINIER, C/ MICAELA #### [facility] [address], [place] GFR/1.73 sq M > 60.0 >60 mL/min/{1.73_m2} Normal 0 [facility] predicted among Syst em (95469) blacks MDRD (S/P/Bld) [Vol rate/Area] Comment: Performed By: #### Alla HILLS/ MICAELA #### [facility] [address] [place] [address] GFR/1.73 sq M > 60.0 >60 mL/min/{1.73_m2} Normal 0 [facility] predicted among Syst em (31744) non-blacks MDRD (S/P/Bld) [Vol rate/Area] Comment: Result Comment: Source- MDRD equation with creatinine calibration to IDMS(NKDEP) eGFR not recommended for nicolas g dose adjustment Performed By: #### Alla HILLS/ MICAELA #### [facility] [place] [address] [place] [address] Glucose [Mass/Vol] 92 70-100 mg/dL Normal 08-27-2019 [facility] (30041) Comment: Performed By: #### Alla HILLS/ MICAELA #### [email or web address] [place] [address] [place] [address] Urea nitrogen [Mass/Vol] 15 7-20 mg/dL Normal 08-26 [facility] (26825) Comment: Performed By: #### Alla HILLS/ MICAELA #### [facility] [place] [address] [place] [address] Chloride [Moles/Vol] 99 98-107 mmol/L Normal 0 [facility] (18704) Comment: Performed By: #### Alla HILLS/ MICAELA #### [email or web address] [place] [address] [place] [address] Potassium [Moles/Vol] 4.0 3.5-5.1 mmol/L Normal 08-27-19 20 [facility] [employer] (29993) Comment: Performed By: #### Alla HILLS/ MICAELA #### [email or web address] [facility] [address] [place] [address] Sodium [Moles/Vol] 134 135-145 mmol/L Low 08-27-2019 [facility] (52412) Comment: Performed By: #### Alla HILLS/ MICAELA #### [facility] [place] [address] [place] [address] No panel information on 2019-08-27 Anion gap [Moles/Vol] 6 mmol/L 08-27-19 20 [place] ([address]) Calcium [Mass/Vol] 9.1 8.4 - 10.4 mg/dL 08-27-2019 [place] ([address]) Chloride [Moles/Vol] 99 98 - 107 mmol/L 0 [place] ([address]) CO2 [Moles/Vol] 29 22 - 30 mmol/L 08-27-2019 [place] ([address]) Creatinine [Mass/Vol] 0.7 0.52 - 1.25 mg/dL 2019 [place] ([address]) EGFR IF NonAfrican >60.0 >60 mL/min 08-27-2019 [place] ([address]) Comment: Source- MDRD equation with c reatinine calibration to IDMS(NKDEP) eGFR not recommended for nicolas g dose adjustment GFR/1.73 sq M >60.0 >60 mL/min mL/min/{1.73_m2} 08-27-19 20 [facility] predicted among [facility], blacks MDRD PR (9685 7) (S/P/Bld) [Vol rate/Area] Glucose [Mass/Vol] 92 70 - 100 mg/dL 08-27-2019 [place] ([address]) Interpretation and Abnormal 08-27-2019 [facility] review of [facility] , laboratory results K Y (22125) Potassium 4.0 3.5 - 5.1 mmol/L 08-27-2019 [facility] [Moles/Vol] [place] ([address]) Sodium [Moles/Vol] 134 135 - 145 mmol/L Low 08-27-2019 [place] ([address]) Urea nitrogen 15 7 - 20 mg/dL 08-27-2019 [facility] [Mass/Vol] [place] ([address]) Test 08-27-2019 [facility] Performed by [facility], [facility] (880 90) System, [address] [place] [address] Absolute Baso # 0.1 0 - 0.2 10*3/uL 08-27-2019 [place] ([address]) Absolute Neut # 7.3 1.8 - 7 10*3/uL High 08-27-2019 [place] ([address]) Basophils/100 WBC 0.7 0 - 2 % 08-27-2019 [facility] (Bld) [place] ([address]) Eosinophils (Bld) 0.3 0 - 0.5 10*3/uL 08-27-2019 [facility] [#/Vol] [place] ([address]) Eosinophils/100 3.1 1 - 6 % 08-27-2019 [facility] WBC (Bld) [place] ([address]) Erythrocyte 13.7 11.5 - % 08-27-2019 [facility], ([facility] [Ratio] PR (45 237) Granulocytes/100 70.6 40 - 80 % 08-27-2019 [facility] WBC (Bld) [place] ([address]) Hematocrit (Bld) 24.2 35 - 47 % Low 08-27-2019 [facility] [Volume fraction] [place] ([address]) Hemoglobin (Bld) 8.5 11.7 - 16 g/dL Low 08-27-2019 [facility] [Mass/Vol] [place] ([address]) Interpretation and Abnormal 08-27-2019 [facility] [place] [facility] , laboratory results K Y (92572) Lymphocytes (Bld) 1.9 1 - 4.3 10*3/uL 08-27-2019 [facility] [#/Vol] [place] ([address]) Lymphocytes/100 18.7 20 - 40 % Low 08-27-2019 [facility] WBC (Bld) [place] ([address]) MCH (RBC) [Entitic 31.5 26 - 34 pg 08-27-2019 [facility] mass] [place] ([address]) MCHC (RBC) 35.0 32 - 36 % 08-27-2019 [facility] [Mass/Vol] [place] ([address]) MCV (RBC) [Entitic 90.2 79 - 98 fL 03-17-2020 [facility] vol] [place] ([address]) Monocytes (Bld) 0.7 0 - 0.8 10*3/uL 08-27-2019 [facility] [#/Vol] [place] ([address]) Monocytes/100 WBC 6.9 2 - 10 % 08-27-2019 [facility] (Bld) [place] ([address]) Platelet mean 7.0 7.4 - 10.4 fL Low 08-27-2019 [facility] y volume (Bld) [facility], [Entitic vol] [place] (45 237) Platelets (Bld) 327 140 - 440 10*3/uL 08-27-2019 [facility] cy [#/Vol] [place] ([address]) RBC (Bld) [#/Vol] 2.69 3.8 - 5.2 10*6/uL Low 08-27-2019 [place] ([address]) WBC (Bld) [#/Vol] 10.4 3.6 - 10.7 10*3/uL 08-27-2019 [place] ([address]) Test 08-27-2019 [facility] [place] [facility] Performed by [facility] (452 37) System, [facility] [place] [address] hemogram w/ autodiff on 2019-08-26 Abs Baso Cnt 0.1 0.0-0.2 10*3/uL Normal 08-26-2019 [facility] (02822) Comment: Performed By: #### REINIER C/ MICAELA #### [facility] [address] [place] [address] Abs Neutrophile Cnt 7.4 1.8-7.0 10*3/uL High 08-26-2019 [facility] (92212) Comment: Performed By: #### REINIER C/ MICAELA #### [facility] [address] [place] [address] Basophils/100 WBC (Bld) 0.6 0.0-2.0 % Normal 2019 [facility] (13334) Comment: Performed By: #### REINIER C/ MICAELA #### [facility] [address], [place] Eosinophils (Bld) [#/Vol] 0.4 0.0-0.5 10*3/uL Normal 08-10 [facility] (71013) Comment: Performed By: #### Alla HILLS/ MICAELA #### [place] [address], [place] Eosinophils/100 WBC (Bld) 3.4 1.0-6.0 % Normal 08-10 [facility] (51607) Comment: Performed By: #### Alla HILLS/ MICAELA #### [place] [address], [place] Erythrocyte distribution 14.1 11.5-14.5 % Normal 08-25 [facility] width (RBC) [Ratio] (19105) Comment: Performed By: #### Alla HILLS/ MICAELA #### [place] [address], [place] Granulocytes/100 WBC (Bld) 70.6 40.0-80.0 % Normal [facility] (15642) Comment: Performed By: #### Alla HILLS/ MICAELA #### [place] [address], [place] Hematocrit (Bld) [Volume 24.5 35.0-47.0 % Low 08-25 [facility] fraction] (00281) Comment: Performed By: #### Alla HILLS/ MICAELA #### [place] [address], [place] Hemoglobin (Bld) [Mass/Vol] 8.3 11.7-16.0 g/dL Low [facility] (38780) Comment: Performed By: #### Alla HILLS/ MICAELA #### [place] [address], [place] Lymphocytes (Bld) [#/Vol] 2.0 1.0-4.3 10*3/uL Normal 08-10 [facility] (67763) Comment: Performed By: #### Alla HILLS/ MICAELA #### [facility] [address] [place] [address] Lymphocytes/100 WBC (Bld) 19.3 20.0-40.0 % Low - [facility] (38227) Comment: Performed By: #### Alla HILLS/ MICAELA #### [place] [address], [place] MCH (RBC) [Entitic mass] 30.3 26.0-34.0 pg Normal 08-25 [facility] (34742) Comment: Performed By: #### REINIER C/ MICAELA #### [place] [address], [place] MCHC (RBC) [Mass/Vol] 33.8 32.0-36.0 % Normal 08-26-19 [facility] (60711) Comment: Performed By: #### REINIER C/ MICAELA #### [place] [address], [place] MCV (RBC) [Entitic vol] 89.8 79.0-98.0 fL Normal 2019 [facility] (58499) Comment: Performed By: #### Alla HILLS/ MICAELA #### [place] [address], [place] Monocytes (Bld) [#/Vol] 0.6 0.0-0.8 10*3/uL Normal 2019 [facility] (64433) Comment: Performed By: #### REINIER C/ MICAELA #### [place] [address], [place] Monocytes/100 WBC (Bld) 6.1 2.0-10.0 % Normal 2019 [facility] (86510) Comment: Performed By: #### REINIER C/ MICAELA #### [place] [address], [place] Platelet mean volume (Bld) 7.5 7.4-10.4 fL Normal [facility] [Entitic vol] (00815 ) Comment: Performed By: #### REINIER C/ MICAELA #### [facility] [address], [place] Platelets (Bld) [#/Vol] 311 140-440 10*3/uL Normal 2019 [facility] (99186) Comment: Performed By: #### REINIER C/ MICAELA #### [facility] [address], [place] RBC (Bld) [#/Vol] 2.73 3.80-5.20 10*6/uL Low 08-26-2019 S [facility] (26653) Comment: Performed By: #### REINIER C/ MICAELA #### [facility] [address], [place] WBC (Bld) [#/Vol] 10.4 3.6-10.7 10*3/uL Normal 08-26-2019 [facility] (72147) Comment: Performed By: #### REINIER C/ MICAELA #### [place] [address], [place] basic metabolic panel on 2019-08-26 Calcium [Mass/Vol] 9.1 8.4-10.4 mg/dL Normal 08-26-2019 [facility] (42643) Comment: Performed By: #### REINIER C/ MICAELA #### [place] [address], [place] Glucose [Mass/Vol] 91 70-100 mg/dL Normal 08-26-2019 [facility] (73401) Comment: Performed By: #### REINIER C/ MICAELA #### [facility] [address], [place] Anion gap [Moles/Vol] 5 Normal 08-26-19 20 [facility] (88030) Comment: Performed By: #### REINIER C/ MICAELA #### [facility] [address], [place] CO2 [Moles/Vol] 29 22-30 mmol/L Normal 08-26-2019 [facility] (72972) Comment: Performed By: #### CXTIS, C/ MICAELA #### [employer] [address], [place] Creatinine [Mass/Vol] 0.66 0.52-1.25 mg/dL Normal 08-26-19 [facility] (00148) Comment: Performed By: #### Alla HILLS/ MICAELA #### [facility] [address], [place] GFR/1.73 sq M > 60.0 >60 mL/min/{1.73_m2} Normal 0 [facility] predicted among Syst em (95438) blacks MDRD (S/P/Bld) [Vol rate/Area] Comment: Performed By: #### Alla HILLS/ MICAELA #### [facility] [address], [place] GFR/1.73 sq M > 60.0 >60 mL/min/{1.73_m2} Normal 0 [facility] predicted among Syst em (96390) non-blacks MDRD (S/P/Bld) [Vol rate/Area] Comment: Result Comment: Source- MDRD equation with creatinine calibration to IDMS(NKDEP) eGFR not recommended for nicolas g dose adjustment Performed By: #### Alla HILLS/ MICAELA #### [facility] [address], [place] Urea nitrogen [Mass/Vol] 15 7-20 mg/dL Normal 08-25 [facility] (75900) Comment: Performed By: #### Alla HILLS/ MICAELA #### [facility] [address], [place] Chloride [Moles/Vol] 100 98-107 mmol/L Normal 0 [facility] (04961) Comment: Performed By: #### Alla HILLS/ MICAELA #### [facility] [address], [place] Potassium [Moles/Vol] 4.0 3.5-5.1 mmol/L Normal 08-26-19 20 [facility] (68217) Comment: Performed By: #### Alla HILLS/ MICAELA #### [facility] [address] [place] [address] Sodium [Moles/Vol] 134 135-145 mmol/L Low 08-26-2019 [facility] (96158) Comment: Performed By: #### Alla HILLS/ MICAELA #### [facility] [address] [place] [address] No panel information on 2019-08-26 Interpretation and review Abnormal 08-10 [place] of laboratory results ([address]) Vancomycin Tr 12.4 15 - 20 ug/mL Low 08-26-2019 [place] ([address]) Comment: . Test Performed by 08-26-2019 [place] ([address]) [facility], [address] [place] [address] Anion gap 5 mmol/L 08-26-[address] [facility] [Moles/Vol] [place] ( [address]) Calcium [Mass/Vol] 9.1 8.4 - 10.4 mg/dL 08-26-2019 [place] ([address] 899) Chloride 100 98 - 107 mmol/L 08-26-[address] [facility] [Moles/Vol] [place] ( [address]) CO2 [Moles/Vol] 29 22 - 30 mmol/L 08-26-2019 [place] ([address]) Creatinine 0.66 0.52 - 1.25 mg/dL 08-26-2019 [facility] [Mass/Vol] [place], [place] (4 3061) EGFR IF NonAfrican >60.0 >60 mL/min 08-26-2019 [place] ([address] 831) Comment: Source- MDRD equation with c reatinine calibration to IDMS(NKDEP) eGFR not recommended for nicolas g dose adjustment GFR/1.73 sq M >60.0 >60 mL/min mL/min/{1.73_m2} 08-26-19 20 [facility] predicted among [facility] [place] MDRD PR (4706 7) (S/P/Bld) [Vol rate/Area] Glucose [Mass/Vol] 91 70 - 100 mg/dL 08-26-2019 [place] ([address]) Interpretation and Abnormal 08-26-2019 [facility] review of [facility] , laboratory results K Y (09111) Potassium 4.0 3.5 - 5.1 mmol/L 08-26-2019 [facility] [Moles/Vol] [place] ([address]) Sodium [Moles/Vol] 134 135 - 145 mmol/L Low 08-26-2019 [place] ([address]) Urea nitrogen 15 7 - 20 mg/dL 08-26-2019 [facility] [Mass/Vol] [facility] [place] ([address]) Test 08-26-2019 [facility] Performed by [facility] (910 18) [facility], [address] [place] [address] Absolute Baso # 0.1 0 - 0.2 10*3/uL 08-26-2019 [place] ([address]) Absolute Neut # 7.4 1.8 - 7 10*3/uL High 08-26-2019 [place] ([address]) Basophils/100 WBC 0.6 0 - 2 % 08-26-2019 [facility] (Bld) [place] ([address]) Eosinophils (Bld) 0.4 0 - 0.5 10*3/uL 08-26-2019 M [facility] [#/Vol] [place] ([address]) Eosinophils/100 3.4 1 - 6 % 08-26-2019 [facility] WBC (Bld) [place] ([address]) Erythrocyte 14.1 11.5 - % 08-26-2019 [facility] distribution width 14.5 [facility], (RBC) [Ratio] [place] (45 237) Granulocytes/100 70.6 40 - 80 % 08-26-2019 [facility] WBC (Bld) [place] ([address]) Hematocrit (Bld) 24.5 35 - 47 % Low 08-26-2019 [facility] [Volume fraction] [place] ([address]) Hemoglobin (Bld) 8.3 11.7 - 16 g/dL Low 08-26-2019 [facility] [Mass/Vol] [place] ([address]) Interpretation and Abnormal 08-26-2019 [facility] review of [facility] , laboratory results K Y (20371) Lymphocytes (Bld) 2.0 1 - 4.3 10*3/uL 08-26-2019 M er[facility] [#/Vol] [place] ([address]) Lymphocytes/100 19.3 20 - 40 % Low 08-26-2019 [facility] WBC (Bld) [place] ([address]) MCH (RBC) [Entitic 30.3 26 - 34 pg 08-26-2019 [facility] mass] [place] ([address]) MCHC (RBC) 33.8 32 - 36 % 08-26-2019 [facility] [Mass/Vol] [place] ([address]) MCV (RBC) [Entitic 89.8 79 - 98 fL 08-26-2019 [facility] vol] [place] ([address]) Monocytes (Bld) 0.6 0 - 0.8 10*3/uL 08-26-2019 [facility] [#/Vol] [place] ([address]) Monocytes/100 WBC 6.1 2 - 10 % 08-26-2019 [facility] (Bld) [place] ([address]) Platelet mean 7.5 7.4 - 10.4 fL 08-26-2019 [facility] y volume (Bld) [facility], [Entitic vol] PR (45 237) Platelets (Bld) 311 140 - 440 10*3/uL 08-26-2019 [facility] [#/Vol] [place] ([address]) RBC (Bld) [#/Vol] 2.73 3.8 - 5.2 10*6/uL Low 08-26-2019 [place] ([address]) WBC (Bld) [#/Vol] 10.4 3.6 - 10.7 10*3/uL 08-26-2019 [place] ([address]) Test 08-26-2019 [facility] Performed by [facility] (452 37) [facility], [facility] [place] [address] hemogram w/ autodiff on 2019-08-25 Abs Baso Cnt 0.1 0.0-0.2 10*3/uL Normal 08-25-2019 [facility] (49184) Comment: Performed By: #### CXTIS, C/ MICAELA #### [facility] [address], [place] Abs Neutrophile Cnt 5.5 1.8-7.0 10*3/uL Normal 08-25-2019 [facility] (95090) Comment: Performed By: #### Alla HILLS/ MICAELA #### [place] [address], [place] Basophils/100 WBC (Bld) 0.9 0.0-2.0 % Normal 2019 [facility] (29504) Comment: Performed By: #### REINIER C/ MICAELA #### [place] [address], [place] Eosinophils (Bld) [#/Vol] 0.1 0.0-0.5 10*3/uL Normal 08-10 [facility] (92097) Comment: Performed By: #### Alla HILLS/ MICAELA #### [place] [address], [place] Eosinophils/100 WBC (Bld) 1.7 1.0-6.0 % Normal 08-10 [facility] (59347) Comment: Performed By: #### Alla HILLS/ MICAELA #### [place] [address], [place] Erythrocyte distribution 14.0 11.5-14.5 % Normal 08-24 [facility] width (RBC) [Ratio] (48858) Comment: Performed By: #### Alla HILLS/ MICAELA #### [place] [address], [place] Granulocytes/100 WBC (Bld) 65.3 40.0-80.0 % Normal [facility] (44316) Comment: Performed By: #### Alla HILLS/ MICAELA #### [place] [address], [place] Hematocrit (Bld) [Volume 22.9 35.0-47.0 % Low 08-24 [facility] fraction] (31962) Comment: Performed By: #### Alla HILLS/ MICAELA #### [place] [address], [place] Hemoglobin (Bld) [Mass/Vol] 7.8 11.7-16.0 g/dL Low [facility] (98221) Comment: Performed By: #### Alla HILLS/ MICAELA #### [place] [address] [place], [place] Lymphocytes (Bld) [#/Vol] 2.1 1.0-4.3 10*3/uL Normal 08-10 [facility] (92681) Comment: Performed By: #### Alla HILLS/ MICAELA #### [place] [address] [place], [place] Lymphocytes/100 WBC (Bld) 25.1 20.0-40.0 % Normal 08-10 [facility] (87271) Comment: Performed By: #### Alla HILLS/ MICAELA #### [place] [address], [place] MCH (RBC) [Entitic mass] 30.9 26.0-34.0 pg Normal 08-24 [facility] (17747) Comment: Performed By: #### Alla HILLS/ MICAELA #### [place] [address] MCHC (RBC) [Mass/Vol] 34.2 32.0-36.0 % Normal 08-25-19 [facility] (63849) Comment: Performed By: #### Alla HILLS/ MICAELA #### [place] [address] [place], [place] MCV (RBC) [Entitic vol] 90.5 79.0-98.0 fL Normal 2019 [facility] (94133) Comment: Performed By: #### REINIER C/ MICAELA #### [place] [address] [place] Monocytes (Bld) [#/Vol] 0.6 0.0-0.8 10*3/uL Normal 2019 [facility] (90678) Comment: Performed By: #### REINIER C/ MICAELA #### [facility] [address], [place] Monocytes/100 WBC (Bld) 7.0 2.0-10.0 % Normal 2019 [facility] (91025) Comment: Performed By: #### REINIER C/ MICAELA #### [facility] [address], [place] Platelet mean volume (Bld) 7.9 7.4-10.4 fL Normal [facility] [Entitic vol] (52807 ) Comment: Performed By: #### ERINIER C/ MICAELA #### [facility] [address], [place] Platelets (Bld) [#/Vol] 287 140-440 10*3/uL Normal 2019 [facility] (55257) Comment: Performed By: #### REINIER C/ MICAELA #### [facility] [place] [address], [place] RBC (Bld) [#/Vol] 2.53 3.80-5.20 10*6/uL Low 08-25-2019 S [facility] (71789) Comment: Performed By: #### REINIER C/ MICAELA #### [place] [address] [address] [place], [place] WBC (Bld) [#/Vol] 8.4 3.6-10.7 10*3/uL Normal 08-25-2019 S [facility] (23970) Comment: Performed By: #### REINIER C/ MICAELA #### [facility] [address], [place] basic metabolic panel on 2019-08-25 Anion gap [Moles/Vol] 4 Normal 08-25-19 20 [facility] (83061) Comment: Performed By: #### REINIER C/ MICAELA #### [facility] [address], [place] Calcium [Mass/Vol] 8.5 8.4-10.4 mg/dL Normal 08-25-2019 [facility] (92584) Comment: Performed By: #### REINIER C/ MICAELA #### [facility] [address], [place] CO2 [Moles/Vol] 28 22-30 mmol/L Normal 08-25-2019 [facility] (74522) Comment: Performed By: #### REINIER C/ MICAELA #### [facility] [address], [place] Glucose [Mass/Vol] 92 70-100 mg/dL Normal 08-25-2019 [facility] (65157) Comment: Performed By: #### REINIER C/ MICAELA #### [facility] [address], [place] Urea nitrogen [Mass/Vol] 22 7-20 mg/dL High 08-24 [facility] (17166) Comment: Performed By: #### REINIER C/ MICAELA #### [facility] [address], [place] Creatinine [Mass/Vol] 0.75 0.52-1.25 mg/dL Normal 08-25-[address] [place] [address] (59470) Comment: Performed By: #### REINIER C/ MICAELA #### [facility] [address], [place] GFR/1.73 sq M > 60.0 >60 mL/min/{1.73_m2} Normal 0 [facility] predicted among Syst em (02503) blacks MDRD (S/P/Bld) [Vol rate/Area] Comment: Performed By: #### REINIER C/ MICAELA #### [facility] [address], [place] GFR/1.73 sq M > 60.0 >60 mL/min/{1.73_m2} Normal 0 [facility] predicted among Syst em (71416) non-blacks MDRD (S/P/Bld) [Vol rate/Area] Comment: Result Comment: Source- MDRD equation with creatinine calibration to IDMS(NKDEP) eGFR not recommended for nicolas g dose adjustment Performed By: #### REINIER C/ MICAELA #### [facility] [address], [place] Potassium [Moles/Vol] 3.7 3.5-5.1 mmol/L Normal 08-25-19 20 [facility] ([id number]) Comment: Performed By: #### REINIER C/ MICAELA #### [facility] [address], [place] Sodium [Moles/Vol] 134 135-145 mmol/L Low 08-25-2019 [facility] ([id number]) Comment: Performed By: #### REINIER C/ MICAELA #### [facility] [address], [place] Chloride [Moles/Vol] 101 98-107 mmol/L Normal 0 [facility] ([id number]) Comment: Performed By: #### REINIER C/ MICAELA #### [facility] [address], [place] No panel information on 2019-08-25 Anion gap [Moles/Vol] 4 mmol/L 08-25-19 20 [place] ([id number]) Calcium [Mass/Vol] 8.5 8.4 - 10.4 mg/dL 08-25-2019 [place] ([id number]) Chloride [Moles/Vol] 101 98 - 107 mmol/L 0 [place] ([address]) CO2 [Moles/Vol] 28 22 - 30 mmol/L 08-25-2019 [place] ([address]) Creatinine [Mass/Vol] 0.75 0.52 - 1.25 mg/dL 2019 [place] ([address]) EGFR IF NonAfrican >60.0 >60 mL/min 08-25-2019 [place], [place] ([id number]) Comment: Source- MDRD equation with c reatinine calibration to IDMS(NKDEP) eGFR not recommended for nicolas g dose adjustment GFR/1.73 sq M >60.0 >60 mL/min mL/min/{1.73_m2} 03-15-20 20 [facility] predicted among [place] [place], blacks MDRD PR (4523 [id number]) (S/P/Bld) [Vol rate/Area] Glucose [Mass/Vol] 92 70 - 100 mg/dL 08-25-2019 [place] ([address]) Interpretation and Abnormal 08-25-2019 [facility] review of [facility] , laboratory results K Y ([id number]) Potassium 3.7 3.5 - 5.1 mmol/L 08-25-2019 [facility] [Moles/Vol] [place] ([address]) Sodium [Moles/Vol] 134 135 - 145 mmol/L Low 08-25-2019 [place] ([address]) Urea nitrogen 22 7 - 20 mg/dL High 08-25-2019 [facility] [Mass/Vol] [place] ([address]) Test 08-25-2019 [facility] Performed by [facility] ([id number]) [facility], [address] [place] [id number] Absolute Baso # 0.1 0 - 0.2 10*3/uL 08-25-2019 [place] ([address]) Absolute Neut # 5.5 1.8 - 7 10*3/uL 08-25-2019 [place] ([address]) Basophils/100 WBC 0.9 0 - 2 % 08-25-2019 [facility] (Bld) [place] ([address]) Eosinophils (Bld) 0.1 0 - 0.5 10*3/uL 08-25-2019 [facility] [#/Vol] [place] ([address]) Eosinophils/100 1.7 1 - 6 % 08-25-2019 [facility] WBC (Bld) [place] ([address]) Erythrocyte 14.0 11.5 - % 08-25-2019 [facility] ([facility] [Ratio] [place] (45 237) Granulocytes/100 65.3 40 - 80 % 08-25-2019 [facility] WBC (Bld) [place] ([address]) Hematocrit (Bld) 22.9 35 - 47 % Low 08-25-2019 [facility] [Volume fraction] [place] ([address]) Hemoglobin (Bld) 7.8 11.7 - 16 g/dL Low 08-25-2019 [facility] [Mass/Vol] [place] ([address]) Interpretation and Abnormal 08-25-2019 [facility] review of [facility] , laboratory results K Y ([address]) Lymphocytes (Bld) 2.1 1 - 4.3 10*3/uL 08-25-2019 [facility] [#/Vol] [place] ([address]) Lymphocytes/100 25.1 20 - 40 % 08-25-2019 [facility] WBC (Bld) [place] ([address]) MCH (RBC) [Entitic 30.9 26 - 34 pg 08-25-2019 [facility] mass] [place] ([address]) MCHC (RBC) 34.2 32 - 36 % 08-25-2019 [facility] [Mass/Vol] [place] ([address]) MCV (RBC) [Entitic 90.5 79 - 98 fL 08-25-2019 [facility] vol] [place] ([address]) Monocytes (Bld) 0.6 0 - 0.8 10*3/uL 08-25-2019 [facility] [#/Vol] [place] ([address]) Monocytes/100 WBC 7.0 2 - 10 % 08-25-2019 [facility] (Bld) [place] ([address]) Platelet mean 7.9 7.4 - 10.4 fL 08-25-2019 [facility] volume (Bld) [facility], [Entitic vol] PR (45 237) Platelets (Bld) 287 140 - 440 10*3/uL 08-25-2019 [facility] [#/Vol] [place] ([address]) RBC (Bld) [#/Vol] 2.53 3.8 - 5.2 10*6/uL Low 08-25-2019 [place] ([address]) WBC (Bld) [#/Vol] 8.4 3.6 - 10.7 10*3/uL 08-25-2019 [place] ([address]) Test 08-25-2019 [facility] Performed by [facility] ([phone]) [address] [address] op note on Op Note PATIENT: DENYS ARRIOLA Normal 2019 [facility] ([address]) ADMISSION DATE: 08/14/2019 SURGERY DATE: 08/24/2019 DATE [...] stable condition without complication. Diskriter Job ID: [id number] Deon Davila MD DOD:08/24/2019 11:31 A EM/dsk DOT:08/24/2019 12:13 P Job Number: [id number] Document Number: [id number] cc: Deon Davila MD [address] [place] [address] [place] [id number] hemogram w/ autodiff on 2019-08-24 Abs Baso Cnt 0.0 0.0-0.2 10*3/uL Normal 08-24-2019 [facility] (49645) Comment: Performed By: #### CXTIS ### # [address] [address] [address] [place], [place] [facility] [place] #### C/MICAELA #### [address] [address] [place] Abs Neutrophile Cnt 12.0 1.8-7.0 10*3/uL High 08-24-2019 [facility] (14036) Comment: Performed By: #### CXTIS ### # [address] [address] [address] [place] [facility] [place] #### C/MICAELA #### [address] Basophils/100 WBC (Bld) 0.1 0.0-2.0 % Normal 2019 [facility] (96579) Comment: Performed By: #### CXTIS ### # [address] [place] [facility] [place] #### C/MICAELA #### [address] Eosinophils (Bld) [#/Vol] 0.0 0.0-0.5 10*3/uL Normal 08-10 [facility] (24496) Comment: Performed By: #### CXTIS ### # [facility] [address] [place] [facility] [address] [place] #### C/MICAELA #### [facility] [address] [place] Eosinophils/100 WBC (Bld) 0.3 1.0-6.0 % Low 08-10 [facility] (55010) Comment: Performed By: #### CXTIS ### # [facility] [place] [facility] [place] #### C/MICAELA #### [facility] [place] Erythrocyte distribution 13.5 11.5-14.5 % Normal 08-23 [facility] width (RBC) [Ratio] (86354) Comment: Performed By: #### CXTIS ### # [facility] [place] [facility] [address] [place] #### C/MICAELA #### [facility] [place] Granulocytes/100 WBC (Bld) 92.5 40.0-80.0 % High [facility] (37828) Comment: Performed By: #### CXTIS ### # [facility] [address] [place] [facility] [address] [place] #### C/MICAELA #### [facility] [place] Hematocrit (Bld) [Volume 25.8 35.0-47.0 % Low 08-23 [facility] fraction] ([address]) Comment: Performed By: #### CXTIS ### # [facility] [address] [place] [facility] [address] [place] #### C/MICAELA #### [facility] [address] [place] Hemoglobin (Bld) [Mass/Vol] 8.9 11.7-16.0 g/dL Low [facility] (66850) Comment: Performed By: #### CXTIS ### # [facility] [place] [facility] [place] #### C/MICAELA #### [facility] [place] Lymphocytes (Bld) [#/Vol] 0.6 1.0-4.3 10*3/uL Low 08-10 [facility] (69204) Comment: Performed By: #### CXTIS ### # [facility] [place] [facility] [place] #### C/MICAELA #### [facility] [place] Lymphocytes/100 WBC (Bld) 4.6 20.0-40.0 % Low 08-10 [facility] (03869) Comment: Performed By: #### CXTIS ### # [facility] [place] [facility] [address] [place], [place] #### C/MICAELA #### [facility] [address] [place] MCH (RBC) [Entitic mass] 30.8 26.0-34.0 pg Normal 08-23 [facility] (23745) Comment: Performed By: #### CXTIS ### # [facility] [address] [place] [facility] [address] [place] #### C/MICAELA #### [facility] [address] [place] MCHC (RBC) [Mass/Vol] 34.5 32.0-36.0 % Normal 08-24-19 20 [facility] (63045) Comment: Performed By: #### CXTIS ### # [facility] [place] [facility] [address] [place] #### C/MICAELA #### [facility] [place] MCV (RBC) [Entitic vol] 89.2 79.0-98.0 fL Normal 2019 [facility] (70223) Comment: Performed By: #### CXTIS ### # [facility] [place] [facility] [address] [place] #### C/MICAELA #### [facility] [place] Monocytes (Bld) [#/Vol] 0.3 0.0-0.8 10*3/uL Normal 2019 [facility] (41451) Comment: Performed By: #### CXTIS ### # [facility] [place] [facility] [address] [place] #### C/MCIAELA #### [facility] [place] Monocytes/100 WBC (Bld) 2.5 2.0-10.0 % Normal 2019 [facility] (32032) Comment: Performed By: #### CXTIS ### # [facility] [place] [facility] [address] [place] #### C/MICAELA #### [facility] [address] [place] Platelet mean volume (Bld) 7.1 7.4-10.4 fL Low [facility] [Entitic vol] (79184 ) Comment: Performed By: #### CXTIS ### # [facility] [address] [place] [facility] [address] [place] #### C/MICAELA #### [facility] [address] [place] Platelets (Bld) [#/Vol] 327 140-440 10*3/uL Normal 2019 [facility] (88800) Comment: Performed By: #### CXTIS ### # [facility] [place] [facility] [address] [place] #### C/MICAELA #### [facility] [address] [place] RBC (Bld) [#/Vol] 2.90 3.80-5.20 10*6/uL Low 08-24-2019 S [facility] (40190) Comment: Performed By: #### CXTIS ### # [facility] [place] [facility] [address] [place] #### C/MICAELA #### [facility] [address] [facility] [place] WBC (Bld) [#/Vol] 13.0 3.6-10.7 10*3/uL High 08-24-2019 S [facility] (62186) Comment: Performed By: #### CXTIS ### # [facility] [address] [place] [facility] [address] [facility] #### C/MICAELA #### [facility] [address] [facility] [place] basic metabolic panel on 2019-08-24 Calcium [Mass/Vol] 9.3 8.4-10.4 mg/dL Normal 08-24-2019 [facility] (89752) Comment: Performed By: #### CXTIS ### # [facility] [address] [place] [facility] [address] [place] #### C/MICAELA #### [facility] [address] [place] Anion gap [Moles/Vol] 6 Normal 08-24-19 [facility] (58786) Comment: Performed By: #### CXTIS ### # [facility] [address] [place] [facility] [address] [place] #### C/MICAELA #### [facility] [address] [place] CO2 [Moles/Vol] 27 22-30 mmol/L Normal 08-24-2019 [facility] (78450) Comment: Performed By: #### CXTIS ### # [facility] [address] [place] [facility] [address] [facility] #### C/MICAELA #### [facility] [address] [place] Creatinine [Mass/Vol] 0.64 0.52-1.25 mg/dL Normal 08-24-19 [facility] (36992) Comment: Performed By: #### CXTIS ### # [facility] [address] [facility] [place] [facility] [address] [facility] #### C/MICAELA #### [facility] [address] [facility] [place] GFR/1.73 sq M > 60.0 >60 mL/min/{1.73_m2} Normal 0 [facility] predicted among Syst em (16028) blacks MDRD (S/P/Bld) [Vol rate/Area] Comment: Performed By: #### CXTIS ### # [facility] [address] [place] [facility] [address] [place] #### C/MICAELA #### [facility] [address] [place] GFR/1.73 sq M > 60.0 >60 mL/min/{1.73_m2} Normal 0 [facility] predicted among Syst em (73608) non-blacks MDRD (S/P/Bld) [Vol rate/Area] Comment: Result Comment: Source- MDRD equation with creatinine calibration to IDMS(NKDEP) eGFR not recommended for nicolas g dose adjustment Performed By: #### CXTIS ### # [email or web address] [facility] [address] [place] [facility] [employer] [facility] [address] [place] #### C/MICAELA #### [email or web address] [facility] [address] [place] Glucose [Mass/Vol] 115 70-100 mg/dL High 08-24-2019 [facility] (57778) Comment: Performed By: #### CXTIS ### # [email or web address] [facility] [address] [place] [facility] [employer] [facility] [address] [place] #### C/MICAELA #### [email or web address] [facility] [address] [place] Urea nitrogen [Mass/Vol] 16 7-20 mg/dL Normal 08-23 [facility] (74240) Comment: Performed By: #### CXTIS ### # [facility] [address] [place] [facility] [address] [place] #### C/MICAELA #### [email or web address] [facility] [address] [place] Chloride [Moles/Vol] 99 98-107 mmol/L Normal 0 [email or web address] [facility] (01981) Comment: Performed By: #### CXTIS ### # [facility] [address] [place] [facility] [address] [place] #### C/MICAELA #### [facility] [address] [place] Potassium [Moles/Vol] 4.5 3.5-5.1 mmol/L Normal 08-24-19 20 [facility] (90556) Comment: Performed By: #### CXTIS ### # [facility] [address] [place] [facility] [address] [place] #### C/MICAELA #### [facility] [address] [place] Sodium [Moles/Vol] 132 135-145 mmol/L Low 08-24-2019 [facility] (81615) Comment: Performed By: #### CXTIS ### # [facility] [address] [place] [facility] [address] [place] #### C/MICAELA #### [email or web address] [facility] [address] [place] No panel information on 2019-08-24 Anion gap [Moles/Vol] 6 mmol/L 08-24-19 20 [facility] [place] ([address]) Calcium [Mass/Vol] 9.3 8.4 - 10.4 mg/dL 08-24-2019 [place] ([address]) Chloride [Moles/Vol] 99 98 - 107 mmol/L 0 [facility] [place] ([address]) CO2 [Moles/Vol] 27 22 - 30 mmol/L 08-24-2019 [facility] [place] ([address]) Creatinine [Mass/Vol] 0.64 0.52 - 1.25 mg/dL 2019 [place] ([address]) EGFR IF NonAfrican >60.0 >60 mL/min 08-24-2019 [place] ([address]) Comment: Source- MDRD equation with c reatinine calibration to IDMS(NKDEP) eGFR not recommended for nicolas g dose adjustment GFR/1.73 sq M >60.0 >60 mL/min mL/min/{1.73_m2} 08-24-19 20 [facility] predicted among [place], [place] MDRD PR (5723 7) (S/P/Bld) [Vol rate/Area] Glucose [Mass/Vol] 115 70 - 100 mg/dL High 08-24-2019 [place] ([address]) Interpretation and Abnormal 08-24-2019 [facility] review of [facility] , laboratory results K Y (30785) Potassium 4.5 3.5 - 5.1 mmol/L 08-24-2019 [facility] [Moles/Vol] [place] ([address]) Sodium [Moles/Vol] 132 135 - 145 mmol/L Low 08-24-2019 [place] ([address]) Urea nitrogen 16 7 - 20 mg/dL 08-24-2019 [facility] [Mass/Vol] [place] ([address]) Test 08-24-2019 [facility] Performed by [facility] ([phone]) [facility], [address] [place] [address] Absolute Baso # 0.0 0 - 0.2 10*3/uL 08-24-2019 [place] ([address]) Absolute Neut # 12.0 1.8 - 7 10*3/uL High 08-24-2019 [place] ([address]) Basophils/100 WBC 0.1 0 - 2 % 08-24-2019 [facility] (Bld) [place] ([address]) Eosinophils (Bld) 0.0 0 - 0.5 10*3/uL 08-24-2019 [facility] [#/Vol] [place] ([address]) Eosinophils/100 0.3 1 - 6 % Low 08-24-2019 [facility] WBC (Bld) [place] ([address]) Erythrocyte 13.5 11.5 - % 08-24-2019 [facility] distribution width [facility] (RBC[facility] [Ratio] [place] (45 237) Granulocytes/100 92.5 40 - 80 % High 08-24-2019 [facility] WBC (Bld) [place] ([address]) Hematocrit (Bld) 25.8 35 - 47 % Low 08-24-2019 [facility] [Volume fraction] [place] ([address]) Hemoglobin (Bld) 8.9 11.7 - 16 g/dL Low 08-24-2019 [facility] [Mass/Vol] [place] ([address]) Interpretation and Abnormal 08-24-2019 [facility] [place] [facility] , laboratory results K Y (76188) Lymphocytes (Bld) 0.6 1 - 4.3 10*3/uL Low 08-24-2019 [facility] [#/Vol] [place] ([address]) Lymphocytes/100 4.6 20 - 40 % Low 08-24-2019 [facility] WBC (Bld) [place] ([address]) MCH (RBC) [Entitic 30.8 26 - 34 pg 08-24-2019 [facility] mass] [place] ([address]) MCHC (RBC) 34.5 32 - 36 % 08-24-2019 [facility] [Mass/Vol] [facility] [place] (47697) MCV (RBC) [Entitic 89.2 79 - 98 fL 08-24-2019 [facility] vol] [place] ([address]) Monocytes (Bld) 0.3 0 - 0.8 10*3/uL 08-24-2019 [facility] cy [#/Vol] [place] ([address]) Monocytes/100 WBC 2.5 2 - 10 % 08-24-2019 [facility] (Bld) [place] ([address]) Platelet mean 7.1 7.4 - 10.4 fL Low 08-24-2019 [facility] volume (Bld) [facility], [Entitic vol] [place] (45 237) Platelets (Bld) 327 140 - 440 10*3/uL 08-24-2019 [facility] cy [#/Vol] [place] ([address]) RBC (Bld) [#/Vol] 2.90 3.8 - 5.2 10*6/uL Low 08-24-2019 [place] ([address]) WBC (Bld) [#/Vol] 13.0 3.6 - 10.7 10*3/uL High 08-24-2019 [place] ([address]) Test 08-24-2019 [facility] Performed by [facility] (452 37) System, [address] [place] [address] vancomycin trough o n 2019-08-23 Vancomycin Trough 13.6 15.0-20.0 ug/mL Low 08-23-2019 S [facility] (82884) Comment: Result Comment: . Performed By: #### CXTIS ### # [facility] [address] [place] [address] [facility] [address] [place], [place] [address] #### C/MICAELA #### [address] [address] [place] [address] ts gel on 2019-08-11 3 TS GEL ABO Group: Normal 08-23-2019 [facility] (24923) B Rh, Gel: POS Antibody Screen Gel: NEG Comment: Performed By: #### CXTIS ### # [facility] [address] [place] [address] [facility] [address] [place], [place] [id number] #### C/MICAELA #### [address] [address] [place] [address] op note on Op Note [facility] Normal 08-10 [facility] (31243) [address] [facility] [address] Dept: [phone] Loc: [phone] Operative Report Patient Name: Denys Arriola Date of : 1985 Date of Surgery: 08/23/19 Location: [facility] Preoperative Diagnosis: 1. Osteoarthritis infected hardware Postoperative [...] patient's ASA was verified by the nurse documentation spec and the anesthesia staff. Fire risk was assessed. The left lower extremity fla p had an audible Doppler signal at the skin paddle. A 4 cm diameter bill moore's slough around the Doppler signal was made an d the flap was defatted of both deep suprafascial and superficial fat leavi ng 5 mm of subcutaneous fat on the skin portion.Deep to the fat t he wound was copiously irrigated out. The previously placed [place] drain was rem luis m. The Doppler [...] Baso Cnt 0.0 0.0-0.2 10*3/uL Normal 08-23-2019 [facility] (74898) Comment: Performed By: #### CXTIS ### # [facility] [address] [address] [address] [place], [place] [facility] [employer] [facility] [place] #### C/MICAELA #### [address] [address] [place] Abs Neutrophile Cnt 5.4 1.8-7.0 10*3/uL Normal 08-23-2019 [facility] (23133) Comment: Performed By: #### CXTIS ### # [facility] [place] [place] [facility] [place] #### C/MICAELA #### [address] Basophils/100 WBC (Bld) 0.3 0.0-2.0 % Normal 2019 [facility] (94882) Comment: Performed By: #### CXTIS ### # [facility] [address] [place] [facility] [address] [place] #### C/MICAELA #### [facility] [address] [place] Eosinophils (Bld) [#/Vol] 0.3 0.0-0.5 10*3/uL Normal 08-10 [facility] (59429) Comment: Performed By: #### CXTIS ### # [facility] [address] [place] [facility] [address] [place] #### C/MICAELA #### [facility] [address] [place] Eosinophils/100 WBC (Bld) 3.8 1.0-6.0 % Normal 08-10 [facility] (55063) Comment: Performed By: #### CXTIS ### # [facility] [address] [place] [facility] [address] [place] #### C/MICAELA #### [facility] [address] [place] Erythrocyte distribution 13.5 11.5-14.5 % Normal 08-22 [facility] width (RBC) [Ratio] (55148) Comment: Performed By: #### CXTIS ### # [facility] [address] [place] [facility] [address] [place] #### C/MICAELA #### [facility] [address] [place] Granulocytes/100 WBC (Bld) 68.3 40.0-80.0 % Normal [facility] (88053) Comment: Performed By: #### CXTIS ### # [facility] [address] [place] [facility] [address] [place] #### C/MICAELA #### [facility] [address] [place] Hematocrit (Bld) [Volume 27.7 35.0-47.0 % Low 08-22 [facility] fraction] (65176) Comment: Performed By: #### CXTIS ### # [facility] [address] [place] [facility] [address] [place] #### C/MICAELA #### [facility] [address] [place] Hemoglobin (Bld) [Mass/Vol] 9.7 11.7-16.0 g/dL Low [facility] (86938) Comment: Performed By: #### CXTIS ### # [facility] [address] [place] [facility] [address] [place] #### C/MICAELA #### [facility] [address] [place] Lymphocytes (Bld) [#/Vol] 1.6 1.0-4.3 10*3/uL Normal 08-10 [facility] (55413) Comment: Performed By: #### CXTIS ### # [facility] [address] [place] [facility] [address] [place] #### C/MICAELA #### [facility] [address] [place] Lymphocytes/100 WBC (Bld) 19.8 20.0-40.0 % Low 08-10 [facility] (44133) Comment: Performed By: #### CXTIS ### # [facility] [address] [place] [facility] [address] [place] #### C/MICAELA #### [facility] [address] [place] MCH (RBC) [Entitic mass] 30.9 26.0-34.0 pg Normal 08-22 [facility] (47755) Comment: Performed By: #### CXTIS ### # [facility] [place] [place] [facility] [place] #### C/MICAELA #### [address] [address] [address] [place] MCHC (RBC) [Mass/Vol] 34.9 32.0-36.0 % Normal 08-23-19 20 [facility] (26721) Comment: Performed By: #### CXTIS ### # [address] [address] [address] [place] [facility]alt System [facility] [place] #### C/MICAELA #### [address] [address] [address] [place] MCV (RBC) [Entitic vol] 88.7 79.0-98.0 fL Normal 2019 [facility] (96486) Comment: Performed By: #### CXTIS ### # [facility] [place] [place] [facility] ealt System [facility] [place] #### C/MICAELA #### [address] [address] [address] [place] Monocytes (Bld) [#/Vol] 0.6 0.0-0.8 10*3/uL Normal 2019 [facility] ([id number]) Comment: Performed By: #### CXTIS ### # [address] [place] [address] [place] [place], [place] [facility] [place] #### C/MICAELA #### [address] [place] [address] [place], [place] Monocytes/100 WBC (Bld) 7.8 2.0-10.0 % Normal 2019 [facility] ([id number]) Comment: Performed By: #### CXTIS ### # [facility] [address] [place], [place] [facility] [address] [place], [place] #### C/MICAELA #### [facility] [address] [place], [place] Platelet mean volume (Bld) 7.2 7.4-10.4 fL Low [facility] [Entitic vol] ([id number] ) Comment: Performed By: #### CXTIS ### # [facility] [address] [place], [place] [facility] [address] [place], [place] #### C/MICAELA #### [facility] [address] [place] Platelets (Bld) [#/Vol] 291 140-440 10*3/uL Normal 2019 [facility] ([id number]) Comment: Performed By: #### CXTIS ### # [facility] [address] [facility] [address] #### C/MICAELA #### [facility] [address], [place] RBC (Bld) [#/Vol] 3.13 3.80-5.20 10*6/uL Low 08-23-2019 S [facility] ([id number]) Comment: Performed By: #### CXTIS ### # [facility] [address] [facility] [address] #### C/MICAELA #### [facility] [address], [place] WBC (Bld) [#/Vol] 7.9 3.6-10.7 10*3/uL Normal 08-23-2019 S [facility] ([id number]) Comment: Performed By: #### CXTIS ### # [facility] [address] [place] [address] [facility] [address], [place] [id number] #### C/MICAELA #### [facility] [address] [place] [address] No panel information on 2019-08-23 Interpretation and review Abnormal 08-10 [place], [place] of laboratory results ([id number]) Vancomycin Tr 13.6 15 - 20 ug/mL Low 08-23-2019 [place] ([address]) Comment: . Test Performed 08-23-2019 [facility] [place] ([id number]) System, [facility] [place] [address] Absolute Baso # 0.0 0 - 0.2 10*3/uL 08-23-2019 [place], [place] ([address]) Absolute Neut # 5.4 1.8 - 7 10*3/uL 08-23-2019 [place], [place] (45 [address]) Basophils/100 WBC 0.3 0 - 2 % 08-23-2019 [facility]- (Bld) [place], [place] ([address]) Eosinophils (Bld) 0.3 0 - 0.5 10*3/uL 08-23-2019 [facility]- [#/Vol] [place], [place] ([address]) Eosinophils/100 WBC 3.8 1 - 6 % 08-23-2019 [facility]- (Bld) [place], [place] ([address]) Erythrocyte 13.5 11.5 - % 08-23-2019 [facility] distribution width 14.5 [place] ([address]) (RBC) [Ratio] Granulocytes/100 WBC 68.3 40 - 80 % 0 [facility]- (Bld) [place], [place] ([address]) Hematocrit (Bld) 27.7 35 - 47 % Low 08-23-2019 [facility]- [Volume fraction] [place] ([address]) Hemoglobin (Bld) 9.7 11.7 - 16 g/dL Low 08-23-2019 [facility]- [Mass/Vol] [place], [place] ([address]) Interpretation and Abnormal 08-23-2019 [facility]- review of laboratory [place] ([id number]) results Lymphocytes (Bld) 1.6 1 - 4.3 10*3/uL 08-23-2019 [facility]- [#/Vol] [place] (45 237) Lymphocytes/100 WBC 19.8 20 - 40 % Low 08-23-2019 [facility]- (Bld) [place] (45 237) MCH (RBC) [Entitic 30.9 26 - 34 pg 08-23-2019 [facility]- mass] [place] HOBBS (45 237) MCHC (RBC) [Mass/Vol] 34.9 32 - 36 % 08-23-19 20 [facility] [place] (45 237) MCV (RBC) [Entitic 88.7 79 - 98 fL 08-23-2019 [facility]- vol] [place]ALEN[place] HOBBS (45 237) Monocytes (Bld) 0.6 0 - 0.8 10*3/uL 08-23-2019 [facility]- [#/Vol] [place] (45 237) Monocytes/100 WBC 7.8 2 - 10 % 08-23-2019 [facility]- (Bld) [place] (45 237) Platelet mean volume 7.2 7.4 - 10.4 fL Low 08-23-[address] [facility]- (Bld) [Entitic vol] [place] H[place] (25550) Platelets (Bld) 291 140 - 440 10*3/uL 08-23-2019 [facility]- [#/Vol] [place] (45 237) RBC (Bld) [#/Vol] 3.13 3.8 - 5.2 10*6/uL Low 08-23-2019 [facility] [place] (45 237) WBC (Bld) [#/Vol] 7.9 3.6 - 10.7 10*3/uL 08-23-2019 [place], [place] (45 [address]) Test Performed 08-23-2019 [facility]- by [facility] [place] ([id number]) [facility], [address] [place] [id number] vancomycin trough o n 2019-08-22 Vancomycin Trough 13.4 15.0-20.0 ug/mL Low 08-22-2019 [facility] (81789) Comment: Result Comment: . Performed By: #### CXTIS ### # [facility] [address] [facility] [address] #### C/MICAELA #### [facility] [address], [place] hemogram w/ autodiff on 2019-08-22 Abs Baso Cnt 0.1 0.0-0.2 10*3/uL Normal 08-22-2019 [facility] ([id number]) Comment: Performed By: #### CXTIS ### # [facility] [place] [place] [facility] [place] #### C/MICAELA #### [facility] [address] [place] Abs Neutrophile Cnt 4.4 1.8-7.0 10*3/uL Normal 08-22-2019 [facility] ([id number]) Comment: Performed By: #### CXTIS ### # [facility] [place] [facility] [place] [place] #### C/MICAELA #### [facility] [address] Basophils/100 WBC (Bld) 0.8 0.0-2.0 % Normal 2019 [facility] ([id number]) Comment: Performed By: #### CXTIS ### # [facility] [address] [facility] [address] #### C/MICAELA #### [facility] [place] [place] Eosinophils (Bld) [#/Vol] 0.4 0.0-0.5 10*3/uL Normal 08-10 [facility] (02822) Comment: Performed By: #### CXTIS ### # [facility] [place] [facility] [address] #### C/MICAELA #### [facility] [address] Eosinophils/100 WBC (Bld) 5.3 1.0-6.0 % Normal 08-10 [facility] ([id number]) Comment: Performed By: #### CXTIS ### # [facility] [address] [facility] [address] #### C/MICAELA #### [facility] [place] Erythrocyte distribution 13.7 11.5-14.5 % Normal 08-21 [facility] width (RBC) [Ratio] ([id number]) Comment: Performed By: #### CXTIS ### # [facility] [address] [place] [facility] [address] #### C/MICAELA #### [facility] [place] Granulocytes/100 WBC (Bld) 59.9 40.0-80.0 % Normal [facility] (86327) Comment: Performed By: #### CXTIS ### # [facility] [place] [place] [facility] [address], [place] #### C/MICAELA #### [facility] [address], [place] Hematocrit (Bld) [Volume 28.2 35.0-47.0 % Low 08-21 [facility] fraction] ([id number]) Comment: Performed By: #### CXTIS ### # [facility] [address] [facility] [address] #### C/MICAELA #### [facility] [address], [place] Hemoglobin (Bld) [Mass/Vol] 9.7 11.7-16.0 g/dL Low [facility] (40908) Comment: Performed By: #### CXTIS ### # [facility] [address] [facility] [place] #### C/MICAELA #### [facility] [address] [place] Lymphocytes (Bld) [#/Vol] 2.0 1.0-4.3 10*3/uL Normal 08-10 [facility] ([id number]) Comment: Performed By: #### CXTIS ### # [facility] [place] [facility] [place] #### C/MICAELA #### [facility] [place] [place] Lymphocytes/100 WBC (Bld) 26.8 20.0-40.0 % Normal 08-10 [facility] ([id number]) Comment: Performed By: #### CXTIS ### # [facility] [place] [facility] [place] #### C/MICAELA #### [facility] [place] [place] MCH (RBC) [Entitic mass] 30.9 26.0-34.0 pg Normal 08-21 [facility] ([id number]) Comment: Performed By: #### CXTIS ### # [facility] [place] [facility] [place] #### C/MICAELA #### [facility] [place] MCHC (RBC) [Mass/Vol] 34.4 32.0-36.0 % Normal 08-22-19 20 [facility] (31320) Comment: Performed By: #### CXTIS ### # [facility] [place] [facility] [address], [place] #### C/MICAELA #### [facility] [address] MCV (RBC) [Entitic vol] 89.8 79.0-98.0 fL Normal 2019 [facility] ([id number]) Comment: Performed By: #### CXTIS ### # [facility] [place] [facility] [place] #### C/MICAELA #### [facility] [place] Monocytes (Bld) [#/Vol] 0.5 0.0-0.8 10*3/uL Normal 2019 [facility] ([id number]) Comment: Performed By: #### CXTIS ### # [facility] [place] [facility] [place] #### C/MICAELA #### [facility] [place] Monocytes/100 WBC (Bld) 7.2 2.0-10.0 % Normal 2019 [facility] ([id number]) Comment: Performed By: #### CXTIS ### # [facility] [place] [facility] [place] #### C/MICAELA #### [facility] [place] Platelet mean volume (Bld) 8.1 7.4-10.4 fL Normal [facility] [Entitic vol] ([id number] ) Comment: Performed By: #### CXTIS ### # [facility] [address] [facility] [address], [place] #### C/MICAELA #### [facility] [address], [place] Platelets (Bld) [#/Vol] 306 140-440 10*3/uL Normal 2019 [facility] ([id number]) Comment: Performed By: #### CXTIS ### # [facility] [address] [facility] [address], [place] #### C/MICAELA #### [facility] [place] RBC (Bld) [#/Vol] 3.14 3.80-5.20 10*6/uL Low 08-22-2019 S [facility] ([id number]) Comment: Performed By: #### CXTIS ### # [facility] [place] [facility] ealt System [facility] [place] #### C/MICAELA #### [facility] [place] WBC (Bld) [#/Vol] 7.4 3.6-10.7 10*3/uL Normal 08-22-2019 S [facility] ([id number]) Comment: Performed By: #### CXTIS ### # [facility] [address], [place] [facility] ealt System [address], [place] #### C/MICAELA #### [facility] [place] No panel information on 2019-08-22 Sodium [Moles/Vol] NEG mmol/L 08-22-2019 [facility] ([id number]) Comment: Test Performed by [facility] System, [facility] [place]. [place], [place] Sodium [Moles/Vol] POS mmol/L 08-22-2019 [place], [place] ([address]) Comment: Test Per[facility] by [facility], [address] [place] [address] Sodium [Moles/Vol] B 08-22-2019 [place], [place] ([address]) Test Performed by 08-22-2019 [facility] ([address]) System, [address] [place] [address] Interpretation and Abnormal 08-22-2019 [facility]- review [place] ([address]) results Vancomycin Tr 13.4 15 - 20 ug/mL Low 08-22-2019 [place], [place] ([id number]) Comment: . Test Performed 08-22-2019 [facility] [place] ([address]) System, [address] [place] [address] Absolute Baso # 0.1 0 - 0.2 10*3/uL 08-22-2019 [place], [place] ([address]) Absolute Neut # 4.4 1.8 - 7 10*3/uL 08-22-2019 [place], [place] (94 [address]) Basophils/100 WBC 0.8 0 - 2 % 08-22-2019 [facility]- (Bld) [place], [place] (04 [address]) Eosinophils (Bld) 0.4 0 - 0.5 10*3/uL 08-22-2019 [facility]- [#/Vol] [place], [place] ([address]) Eosinophils/100 WBC 5.3 1 - 6 % 08-22-2019 [facility]- (Bld) [place], [place] (45 237) Erythrocyte 13.7 11.5 - % 08-22-2019 [facility] ealth- distribution width 14.5 [place] ([address]) (RBC) [Ratio] Granulocytes/100 WBC 59.9 40 - 80 % 0 [facility]- (Bld) [place], [place] (08 [address]) Hematocrit (Bld) 28.2 35 - 47 % Low 08-22-2019 [facility]- [Volume fraction] [place] ([address]) Hemoglobin (Bld) 9.7 11.7 - 16 g/dL Low 08-22-2019 [facility]- [Mass/Vol] [place] ([id number] [id number]) Interpretation and Abnormal 08-22-2019 [facility]- review of laboratory [place] ([id number]) results Lymphocytes (Bld) 2.0 1 - 4.3 10*3/uL 08-22-2019 [facility]- [#/Vol] [place] (45 237) Lymphocytes/100 WBC 26.8 20 - 40 % 08-22-2019 [facility]- (Bld) [place] (45 237) MCH (RBC) [Entitic 30.9 26 - 34 pg 08-22-2019 [facility]- mass] [place] HOBBS (45 237) MCHC (RBC) [Mass/Vol] 34.4 32 - 36 % 08-22-19 20 [facility] [place] (45 237) MCV (RBC) [Entitic 89.8 79 - 98 fL 08-22-2019 [facility]- vol] [place] HOBBS (45 237) Monocytes (Bld) 0.5 0 - 0.8 10*3/uL 08-22-2019 [facility]- [#/Vol] [place] (45 237) Monocytes/100 WBC 7.2 2 - 10 % 08-22-2019 [facility]- (Bld) [place] (45 237) Platelet mean volume 8.1 7.4 - 10.4 fL 08-22-[address] [facility]- (Bld) [Entitic vol] [place] (11738) Platelets (Bld) 306 140 - 440 10*3/uL 08-22-2019 [facility]- [#/Vol] [place] (45 237) RBC (Bld) [#/Vol] 3.14 3.8 - 5.2 10*6/uL Low 08-22-2019 [facility] [place] (45 237) WBC (Bld) [#/Vol] 7.4 3.6 - 10.7 10*3/uL 08-22-2019 [facility] [place] HOBBS (45 237) Test Performed 08-22-2019 [facility]- by [facility] [place] ([id number]) System, [facility] [place] [address] hemogram w/ autodiff on 2019-08-21 Abs Baso Cnt 0.1 0.0-0.2 10*3/uL Normal 08-21-2019 [facility] (58849) Comment: Performed By: #### CXTIS ### # [facility] [address], [place] [facility] [place] #### C/MICAELA #### [facility] [address], [place] Abs Neutrophile Cnt 4.0 1.8-7.0 10*3/uL Normal 08-21-2019 [facility] (69212) Comment: Performed By: #### CXTIS ### # [facility] [place] [facility] [place] #### C/MICAELA #### [facility] [place] Basophils/100 WBC (Bld) 0.9 0.0-2.0 % Normal 2019 [facility] ([id number]) Comment: Performed By: #### CXTIS ### # [facility] [place] [facility] [place] #### C/MICAELA #### [facility] [place] Eosinophils (Bld) [#/Vol] 0.2 0.0-0.5 10*3/uL Normal 08-10 [facility] (41742) Comment: Performed By: #### CXTIS ### # [facility] [address] [facility] [address] #### C/MICAELA #### [facility] [address] Eosinophils/100 WBC (Bld) 3.7 1.0-6.0 % Normal 08-10 [facility] (64390) Comment: Performed By: #### CXTIS ### # [facility] [address] [facility] [address] #### C/MICAELA #### [facility] [address] Erythrocyte distribution 13.7 11.5-14.5 % Normal 08-20 [facility] width (RBC) [Ratio] (14165) Comment: Performed By: #### CXTIS ### # [facility] [address] [facility] [address] #### C/MICAELA #### [facility] [address] Granulocytes/100 WBC (Bld) 60.5 40.0-80.0 % Normal [facility] (82933) Comment: Performed By: #### CXTIS ### # [facility] [address] [facility] [address] #### C/MICAELA #### [facility] [address] Hematocrit (Bld) [Volume 27.0 35.0-47.0 % Low 08-20 [facility] fraction] ([id number]) Comment: Performed By: #### CXTIS ### # [facility] [address] [facility] [address] #### C/MICAELA #### [facility] [address] Hemoglobin (Bld) [Mass/Vol] 9.2 11.7-16.0 g/dL Low [facility] (58437) Comment: Performed By: #### CXTIS ### # [facility] [address] [facility] [address] #### C/MICAELA #### [facility] [place] Lymphocytes (Bld) [#/Vol] 1.8 1.0-4.3 10*3/uL Normal 08-10 [facility] (90268) Comment: Performed By: #### CXTIS ### # [facility] [place] [facility] [address] #### C/MICAELA #### [facility] [place] Lymphocytes/100 WBC (Bld) 27.2 20.0-40.0 % Normal 08-10 [facility] (01586) Comment: Performed By: #### CXTIS ### # [facility] [place] [facility] [place] #### C/MICAELA #### [facility] [place] MCH (RBC) [Entitic mass] 30.5 26.0-34.0 pg Normal 08-20 [facility] (31433) Comment: Performed By: #### CXTIS ### # [facility] [place] [facility] [address] #### C/MICAELA #### [facility] [place] MCHC (RBC) [Mass/Vol] 34.2 32.0-36.0 % Normal 08-21-19 [facility] (49978) Comment: Performed By: #### CXTIS ### # [facility] [place] [facility] [address] #### C/MICAELA #### [facility] [address], [place] MCV (RBC) [Entitic vol] 89.3 79.0-98.0 fL Normal 2019 [facility] (71549) Comment: Performed By: #### CXTIS ### # [facility] [address] [facility] [address] #### C/MICAELA #### [facility] [place] Monocytes (Bld) [#/Vol] 0.5 0.0-0.8 10*3/uL Normal 2019 [facility] ([id number]) Comment: Performed By: #### CXTIS ### # [facility] [place] [facility] [place] #### C/MICAELA #### [facility] [place] Monocytes/100 WBC (Bld) 7.7 2.0-10.0 % Normal 2019 [facility] ([id number]) Comment: Performed By: #### CXTIS ### # [facility] [place] [facility] [place] #### C/MICAELA #### [facility] [place] Platelet mean volume (Bld) 8.2 7.4-10.4 fL Normal [facility] [Entitic vol] ([id number] ) Comment: Performed By: #### CXTIS ### # [facility] [place] [facility] [place] #### C/MICAELA #### [facility] [place] Platelets (Bld) [#/Vol] 271 140-440 10*3/uL Normal 2019 [facility] (03053) Comment: Performed By: #### CXTIS ### # [facility] [address] [facility] [address] #### C/MICAELA #### [facility] [address] RBC (Bld) [#/Vol] 3.03 3.80-5.20 10*6/uL Low 08-21-2019 S [facility] ([id number]) Comment: Performed By: #### CXTIS ### # [facility] [address] [facility] [address] #### C/MICAELA #### [facility] [address] WBC (Bld) [#/Vol] 6.6 3.6-10.7 10*3/uL Normal 08-21-2019 S [facility] ([id number]) Comment: Performed By: #### CXTIS ### # [facility] [address] [facility] [address] #### C/MICAELA #### [facility] [address] No panel information on 2019-08-21 Absolute Baso # 0.1 0 - 0.2 10*3/uL 08-21-2019 [place], [place] ([address]) Absolute Neut # 4.0 1.8 - 7 10*3/uL 08-21-2019 [place] (45 [address]) Basophils/100 WBC 0.9 0 - 2 % 08-21-2019 [facility]- (Bld) [place], [place] ([address]) Eosinophils (Bld) 0.2 0 - 0.5 10*3/uL 08-21-2019 [facility]- [#/Vol] [place], [place] (45 [address]) Eosinophils/100 WBC 3.7 1 - 6 % 08-21-2019 [facility]- (Bld) [place] (45 237) Erythrocyte 13.7 11.5 - % 08-21-2019 [facility] ealth- distribution width 14.5 O [place] (12761) (RBC) [Ratio] Granulocytes/100 WBC 60.5 40 - 80 % 0 [facility]- (Bld) [place] (45 237) Hematocrit (Bld) 27.0 35 - 47 % Low 08-21-2019 [facility]- [Volume fraction] [place] ([id number]) Hemoglobin (Bld) 9.2 11.7 - 16 g/dL Low 08-21-2019 [facility]- [Mass/Vol] [place] ([id number]) Interpretation and Abnormal 08-21-2019 [facility]- review of laboratory [place] ([id number]) results Lymphocytes (Bld) 1.8 1 - 4.3 10*3/uL 08-21-2019 [facility]- [#/Vol] [place] (45 237) Lymphocytes/100 WBC 27.2 20 - 40 % 08-21-2019 [facility]- (Bld) [place] (45 237) MCH (RBC) [Entitic 30.5 26 - 34 pg 08-21-2019 [facility]- mass] [place] (45 237) MCHC (RBC) [Mass/Vol] 34.2 32 - 36 % 08-21-19 20 [facility] [place] (45 237) MCV (RBC) [Entitic 89.3 79 - 98 fL 08-21-2019 [facility]- vol] [place] HOB[place] (45 237) Monocytes (Bld) 0.5 0 - 0.8 10*3/uL 08-21-2019 [facility]- [#/Vol] [place] (45 237) Monocytes/100 WBC 7.7 2 - 10 % 08-21-2019 [facility]- (Bld) MARLENY HOBBS (45 237) Platelet mean volume 8.2 7.4 - 10.4 fL 08-21-19 20 [facility] (Bld) [Entitic vol] MARLENY HOBBS ([id number]) Platelets (Bld) 271 140 - 440 10*3/uL 08-21-2019 [facility]- [#/Vol] [place], [place] (45 237) RBC (Bld) [#/Vol] 3.03 3.8 - 5.2 10*6/uL Low 08-21-2019 [facility] [place], [place] (45 237) WBC (Bld) [#/Vol] 6.6 3.6 - 10.7 10*3/uL 08-21-2019 [facility]- [place], [place] ([address]) Test Performed 08-21-2019 [facility] [place] ([address]) System, [address] [place] [address] vancomycin trough o n 2019-08-20 Vancomycin Trough 11.4 15.0-20.0 ug/mL Low 08-20-2019 S [facility] ([address]) Comment: Result Comment: . Performed By: #### CXTIS ### # [facility] [place] [address] [place], [place] [facility] [address], [place] #### C/MICAELA #### [facility] [address], [place] magnesium on -10 Magnesium [Mass/Vol] 1.9 1.6-2.3 mg/dL Normal 0 [facility] (23002) Comment: Performed By: #### CXTIS ### # [facility] [address], [place] [facility] [address], [place] #### C/MICAELA #### [facility] [address], [place] hemogram w/ autodiff on 2019-08-20 Abs Baso Cnt 0.0 0.0-0.2 10*3/uL Normal 08-20-2019 [facility] (39110) Comment: Performed By: #### CXTIS ### # [facility] [address], [place] [facility] [address], [place] #### C/MICAELA #### [facility] [address], [place] Abs Neutrophile Cnt 4.5 1.8-7.0 10*3/uL Normal 08-20-2019 [facility] (74857) Comment: Performed By: #### CXTIS ### # [facility] [address], [place] [facility] [address] [place] #### C/MICAELA #### [facility] [address], [place] Basophils/100 WBC (Bld) 0.2 0.0-2.0 % Normal 2019 [facility] (91571) Comment: Performed By: #### CXTIS ### # [facility] [address] [place] [facility] [address] [place] #### C/MICAELA #### [facility] [address] [place] Eosinophils (Bld) [#/Vol] 0.2 0.0-0.5 10*3/uL Normal 08-10 [facility] ([id number]) Comment: Performed By: #### CXTIS ### # [facility] [address] [place] [facility] [address] [place] #### C/MICAELA #### [facility] [address] [place] Eosinophils/100 WBC (Bld) 3.4 1.0-6.0 % Normal 08-10 [facility] ([id number]) Comment: Performed By: #### CXTIS ### # [facility] [address] [place] [facility] [address] [place] #### C/MICAELA #### [facility] [address] [place] Erythrocyte distribution 13.4 11.5-14.5 % Normal 08-19 [facility] width (RBC) [Ratio] (58785) Comment: Performed By: #### CXTIS ### # [facility] [address] [place] [facility] [address] [place] #### C/MICAELA #### [facility] [address] [place] Granulocytes/100 WBC (Bld) 65.9 40.0-80.0 % Normal [facility] (45641) Comment: Performed By: #### CXTIS ### # [facility] [address] [place], [place] [facility] [address] [place] #### C/MICAELA #### [facility] [address] [place], [place] Hematocrit (Bld) [Volume 25.9 35.0-47.0 % Low 08-19 [facility] fraction] (48296) Comment: Performed By: #### CXTIS ### # [facility] [address] [place] [facility] [address] [place] #### C/MICAELA #### [facility] [address] [place], [place] Hemoglobin (Bld) [Mass/Vol] 9.0 11.7-16.0 g/dL Low [facility] (47577) Comment: Performed By: #### CXTIS ### # [facility] [address] [place] [facility] [address] [place] #### C/MICAELA #### [facility] [address] [place] Lymphocytes (Bld) [#/Vol] 1.6 1.0-4.3 10*3/uL Normal 08-10 [facility] (51201) Comment: Performed By: #### CXTIS ### # [facility] [address] [place] [facility] [address] [place], [place] #### C/MICAELA #### [facility] [address] [place] Lymphocytes/100 WBC (Bld) 23.1 20.0-40.0 % Normal 08-10 [facility] (79084) Comment: Performed By: #### CXTIS ### # [facility] [address] [place] [facility] [address] [place], [place] #### C/MICAELA #### [facility] [address] [place] MCH (RBC) [Entitic mass] 30.7 26.0-34.0 pg Normal 08-19 [facility] (28904) Comment: Performed By: #### CXTIS ### # [facility] [address] [place] [facility] [address] [place], [place] #### C/MICAELA #### [facility] [address] [place] MCHC (RBC) [Mass/Vol] 34.8 32.0-36.0 % Normal 08-20-19 [facility] (33347) Comment: Performed By: #### CXTIS ### # [facility] [address] [place] [facility] [address] [place] #### C/MICAELA #### [facility] [address] [place] MCV (RBC) [Entitic vol] 88.2 79.0-98.0 fL Normal 2019 [facility] (97751) Comment: Performed By: #### CXTIS ### # [facility] [address] [place] [facility] [address] [place], [place] #### C/MICAELA #### [facility] [address] [place], [place] Monocytes (Bld) [#/Vol] 0.5 0.0-0.8 10*3/uL Normal 2019 [facility] (84769) Comment: Performed By: #### CXTIS ### # [facility] [address] [place] [facility] [address] [place] #### C/MICAELA #### [facility] [address] [place] Monocytes/100 WBC (Bld) 7.4 2.0-10.0 % Normal 2019 [facility] (39675) Comment: Performed By: #### CXTIS ### # [facility] [address] [place] [facility] [address] [place] #### C/MICAELA #### [facility] [address] [place] Platelet mean volume (Bld) 7.6 7.4-10.4 fL Normal [facility] [Entitic vol] (64723 ) Comment: Performed By: #### CXTIS ### # [facility] [address] [place] [facility] [address] [place] #### C/MICAELA #### [facility] [address] [place] Platelets (Bld) [#/Vol] 230 140-440 10*3/uL Normal 2019 [facility] (54978) Comment: Performed By: #### CXTIS ### # [facility] [address] [place] [facility] [address] [place] #### C/MICAELA #### [facility] [address] [place] RBC (Bld) [#/Vol] 2.93 3.80-5.20 10*6/uL Low 08-20-2019 S [facility] (57384) Comment: Performed By: #### CXTIS ### # [facility] [address] [place] [facility] [address] [place] #### C/MICAELA #### [facility] [address] [place] WBC (Bld) [#/Vol] 6.8 3.6-10.7 10*3/uL Normal 08-20-2019 S [facility] (09662) Comment: Performed By: #### CXTIS ### # [facility] [address] [place] [facility] [address] [place] #### C/MICAELA #### [facility] [address] [place], [place] basic metabolic panel on 2019-08-20 Calcium [Mass/Vol] 9.1 8.4-10.4 mg/dL Normal 08-20-2019 [facility] (51807) Comment: Performed By: #### CXTIS ### # [facility] [address] [place] [facility] [employer] [facility] [address] [place], [place] #### C/MICAELA #### [facility] [address] [place] Anion gap [Moles/Vol] 5 Normal 08-20-19 20 [facility] (37819) Comment: Performed By: #### CXTIS ### # [facility] [address] [place] [facility] [address] [place] #### C/MICAELA #### [facility] [address] [place] CO2 [Moles/Vol] 29 22-30 mmol/L Normal 08-20-2019 [facility] (77619) Comment: Performed By: #### CXTIS ### # [facility] [address] [place] [facility] [address] [place] #### C/MICAELA #### [facility] [address] [place] Creatinine [Mass/Vol] 0.56 0.52-1.25 mg/dL Normal 08-20-19 20 [facility] (40187) Comment: Performed By: #### CXTIS ### # [employer] [facility] [address] [place] [facility] [employer] [facility] [address] [place] #### C/MICAELA #### [employer] [facility] [address] [place], [place] GFR/1.73 sq M > 60.0 >60 mL/min/{1.73_m2} Normal 0 [facility] predicted among Syst em (47385) blacks MDRD (S/P/Bld) [Vol rate/Area] Comment: Performed By: #### CXTIS ### # [employer] [facility] [address] [place], [place] [facility] [employer] [facility] [address] [place], [place] #### C/MICAELA #### [employer] [facility] [address] [place], [place] GFR/1.73 sq M > 60.0 >60 mL/min/{1.73_m2} Normal 0 [facility] predicted among Syst em (51726) non-blacks MDRD (S/P/Bld) [Vol rate/Area] Comment: Result Comment: Source- MDRD equation with creatinine calibration to IDMS(NKDEP) eGFR not recommended for nicolas g dose adjustment Performed By: #### CXTIS ### # [email or web address] [facility] [address] [place], [place] [facility] [address] [place], [place] #### C/MICAELA #### [employer] [facility] [address] [place], [place] Glucose [Mass/Vol] 96 70-100 mg/dL Normal 08-20-2019 [facility] (99714) Comment: Performed By: #### CXTIS ### # [facility] [address] [place] [facility] [address] [place] #### C/MICAELA #### [facility] [address] [place] Urea nitrogen [Mass/Vol] 11 7-20 mg/dL Normal 08-19 [facility] (93044) Comment: Performed By: #### CXTIS ### # [facility] [address] [place] [facility] [address] [place] #### C/MICAELA #### [facility] [address] [place] Chloride [Moles/Vol] 100 98-107 mmol/L Normal 0 [facility] (23033) Comment: Performed By: #### CXTIS ### # [facility] [address] [place] [facility] [address] [place] #### C/MICAELA #### [facility] [address] [place] Potassium [Moles/Vol] 3.9 3.5-5.1 mmol/L Normal 08-20-19 20 [facility] (59704) Comment: Performed By: #### CXTIS ### # [facility] [address] [facility] [place] [facility] [address] [place] #### C/MICAELA #### [facility] [address] [facility] [place] Sodium [Moles/Vol] 135 135-145 mmol/L Normal 08-20-2019 [facility] (14566) Comment: Performed By: #### CXTIS ### # [facility] [address] [place] [address] [facility] [address] [place], [place] [id number] #### C/MICAELA #### [facility] [address] [place] [address] No panel information on 2019-08-20 Interpretation and review Abnormal 08-10 [place], [place] of laboratory results ([address]) Vancomycin Tr 11.4 15 - 20 ug/mL Low 08-20-2019 [place], [place] ([address]) Comment: . Test Performed by 08-20-2019 [place], [place] ([address]) System, [facility] [place] [address] Anion gap 5 mmol/L 08-20-[address] [facility] [Moles/Vol] [place] ( [address]) Calcium [Mass/Vol] 9.1 8.4 - 10.4 mg/dL 08-20-2019 [place], [place] ([address]) Chloride 100 98 - 107 mmol/L 08-20-[address] [facility] [Moles/Vol] [place] ( [address]) CO2 [Moles/Vol] 29 22 - 30 mmol/L 08-20-2019 [place], [place] ([address]) Creatinine 0.56 0.52 - 1.25 mg/dL 08-20-2019 [facility] [Mass/Vol] [place], [place] (4 [address]) EGFR IF NonAfrican >60.0 >60 mL/min 08-20-2019 [place], [place] ([address]) Comment: Source- MDRD equation with c reatinine calibration to IDMS(NKDEP) eGFR not recommended for nicolas g dose adjustment GFR/1.73 sq M >60.0 >60 mL/min mL/min/{1.73_m2} 08-20-19 [facility] predicted among [facility] [place], [facility] [place] ([id number] 7) (S/P/Bld) [Vol rate/Area] Glucose [Mass/Vol] 96 70 - 100 mg/dL 08-20-2019 [place] ([address]) Magnesium 1.9 1.6 - 2.3 mg/dL 08-20-2019 [facility] [Mass/Vol] [place] ([address]) Potassium 3.9 3.5 - 5.1 mmol/L 08-20-2019 [facility] [Moles/Vol] [place] ([address]) Sodium [Moles/Vol] 135 135 - 145 mmol/L 08-20-2019 [place] ([address]) Urea nitrogen 11 7 - 20 mg/dL 08-20-2019 [facility] [Mass/Vol] [place] ([address]) Test 08-20-2019 [facility] Performed by [facility] ([id number] 52) [facility], [address] [place] [address] Absolute Baso # 0.0 0 - 0.2 10*3/uL 08-20-2019 [place] ([address]) Absolute Neut # 4.5 1.8 - 7 10*3/uL 08-20-2019 [place] ([address]) Basophils/100 WBC 0.2 0 - 2 % 08-20-2019 [facility] (Bld) [place] ([address]) Eosinophils (Bld) 0.2 0 - 0.5 10*3/uL 08-20-2019 [facility] [#/Vol] [place] ([address]) Eosinophils/100 WBC 3.4 1 - 6 % 08-20-2019 [facility] (Bld) [place] ([address]) Erythrocyte 13.4 11.5 - % 08-20-2019 [facility] (RBC[facility] [Ratio] [place] (45 034) Granulocytes/100 65.9 40 - 80 % 08-20-2019 [facility] WBC (Bld) [place] ([address]) Hematocrit (Bld) 25.9 35 - 47 % Low 08-20-2019 [facility] [Volume fraction] [place] ([address]) Hemoglobin (Bld) 9.0 11.7 - 16 g/dL Low 08-20-2019 [facility] [Mass/Vol] [place] ([address]) Interpretation and Abnormal 08-20-2019 [facility] review of [facility] , laboratory results [place] ([address]) Lymphocytes (Bld) 1.6 1 - 4.3 10*3/uL 08-20-2019 [facility] [#/Vol] [place] ([address]) Lymphocytes/100 WBC 23.1 20 - 40 % 08-20-2019 [facility] (Bld) [place] ([address]) MCH (RBC) [Entitic 30.7 26 - 34 pg 08-20-2019 [facility] mass] [place] ([address]) MCHC (RBC) 34.8 32 - 36 % 08-20-2019 [facility] [Mass/Vol] [facility] [place] ([address]) MCV (RBC) [Entitic 88.2 79 - 98 fL 08-20-2019 [facility] vol] [place] ([address]) Monocytes (Bld) 0.5 0 - 0.8 10*3/uL 08-20-2019 [facility] cy [#/Vol] [place] ([address]) Monocytes/100 WBC 7.4 2 - 10 % 08-20-2019 [facility] [place] (Bld) [place] ([address]) Platelet mean 7.6 7.4 - 10.4 fL 08-20-2019 [facility] volume (Bld) [facility], [Entitic vol] [place] (45 [address]) Platelets (Bld) 230 140 - 440 10*3/uL 08-20-2019 [facility] cy [#/Vol] [place] ([address]) RBC (Bld) [#/Vol] 2.93 3.8 - 5.2 10*6/uL Low 08-20-2019 [place] ([address]) WBC (Bld) [#/Vol] 6.8 3.6 - 10.7 10*3/uL 08-20-2019 [place] ([address]) Test 08-20-2019 [facility] [place] [facility] Per[facility] by [facility] [place] ([address]) System, [address] [place] [address] ts gel on 9 TS GEL ABO Group: Normal 08-19-2019 [facility] (09226) B Rh, Gel: POS Antibody Screen Gel: NEG Comment: Performed By: #### CXTIS ### # [facility] [employer] [facility] [place] [facility] [address], [place] #### C/MICAELA #### [facility] [address], [place] magnesium on 08-18 Magnesium [Mass/Vol] 1.9 1.6-2.3 mg/dL Normal 0 [facility] (09411) Comment: Performed By: #### CXTIS ### # [facility] [address] [place] [facility] [address] [place] #### C/MICAELA #### [facility] [address] [place] hemogram w/ autodiff on 2019-08-19 Abs Baso Cnt 0.0 0.0-0.2 10*3/uL Normal 08-19-2019 [facility] (44754) Comment: Performed By: #### CXTIS ### # [facility] [place] [facility] [address] [place] #### C/MICAELA #### [facility] [place] [place] Abs Neutrophile Cnt 3.4 1.8-7.0 10*3/uL Normal 08-19-2019 [facility] (68206) Comment: Performed By: #### CXTIS ### # [facility] [place] [place] [facility] [address] [place] #### C/MICAELA #### [facility] [address] [place] Basophils/100 WBC (Bld) 0.4 0.0-2.0 % Normal 2019 [facility] (09130) Comment: Performed By: #### CXTIS ### # [facility] [address] [place] [facility] [address] [place] #### C/MICAELA #### [facility] [address] [place] Eosinophils (Bld) [#/Vol] 0.2 0.0-0.5 10*3/uL Normal [facility] (23913) Comment: Performed By: #### CXTIS ### # [facility] [address] [place] [facility] [address] [place] #### C/MICAELA #### [facility] [place] [place] Eosinophils/100 WBC (Bld) 2.8 1.0-6.0 % Normal [facility] (71104) Comment: Performed By: #### CXTIS ### # [facility] [place] [facility] [address] [place] #### C/MICAELA #### [facility] [place] [place] Erythrocyte distribution 13.6 11.5-14.5 % Normal 08-18 [facility] width (RBC) [Ratio] (66567) Comment: Performed By: #### CXTIS ### # [facility] [place] [facility] [place] [place] #### C/MICAELA #### [facility] [address] [place] Granulocytes/100 WBC (Bld) 57.3 40.0-80.0 % Normal [facility] (75840) Comment: Performed By: #### CXTIS ### # [facility] [address] [place] [facility] [address] [place] #### C/MICAELA #### [facility] [place] Hematocrit (Bld) [Volume 24.3 35.0-47.0 % Low 08-18 [facility] fraction] (65022) Comment: Performed By: #### CXTIS ### # [facility] [address] [place] [facility] [address] [place] #### C/MICAELA #### [facility] [address] [place] Hemoglobin (Bld) [Mass/Vol] 8.4 11.7-16.0 g/dL Low [facility] (79411) Comment: Performed By: #### CXTIS ### # [facility] [place] [facility] [place] #### C/MICAELA #### [facility] [place] Lymphocytes (Bld) [#/Vol] 1.9 1.0-4.3 10*3/uL Normal [facility] (81169) Comment: Performed By: #### CXTIS ### # [facility] [place] [facility] [place] #### C/MICAELA #### [facility] [place] Lymphocytes/100 WBC (Bld) 31.4 20.0-40.0 % Normal [facility] (27007) Comment: Performed By: #### CXTIS ### # [facility] [place] [facility] [address] [place], [place] #### C/MICAELA #### [facility] [place] [place] MCH (RBC) [Entitic mass] 30.8 26.0-34.0 pg Normal 08-18 [facility] (82339) Comment: Performed By: #### CXTIS ### # [facility] [address] [place] [facility] [address] [place] #### C/MICAELA #### [facility] [address] [place] MCHC (RBC) [Mass/Vol] 34.6 32.0-36.0 % Normal 08-19-19 20 [facility] (81862) Comment: Performed By: #### CXTIS ### # [facility] [place] [facility] [place] #### C/MICAELA #### [facility] [place] MCV (RBC) [Entitic vol] 89.2 79.0-98.0 fL Normal 2019 [facility] (76224) Comment: Performed By: #### CXTIS ### # [facility] [place] [facility] [place] #### C/MICAELA #### [facility] [place] Monocytes (Bld) [#/Vol] 0.5 0.0-0.8 10*3/uL Normal 2019 [facility] (60716) Comment: Performed By: #### CXTIS ### # [facility] [address] [place] [facility] [address] [place] #### C/MICAELA #### [facility] [address] [place] Monocytes/100 WBC (Bld) 8.1 2.0-10.0 % Normal 2019 [facility] (57992) Comment: Performed By: #### CXTIS ### # [facility] [address] [facility] [place] [facility] [address] [place] #### C/MICAELA #### [facility] [address] [facility] [place] Platelet mean volume (Bld) 7.9 7.4-10.4 fL Normal [facility] [Entitic vol] (90180 ) Comment: Performed By: #### CXTIS ### # [facility] [address] [facility] [place] [facility] [address] [place] #### C/MICAELA #### [facility] [address] [place] Platelets (Bld) [#/Vol] 207 140-440 10*3/uL Normal 2019 [facility] (40012) Comment: Performed By: #### CXTIS ### # [facility] [address] [facility] [place] [facility] [address] [place] #### C/MICAELA #### [facility] [address] [place] RBC (Bld) [#/Vol] 2.72 3.80-5.20 10*6/uL Low 08-19-2019 S [facility] (00671) Comment: Performed By: #### CXTIS ### # [facility] [address] [facility] [place] [facility] [address] [place] #### C/MICAELA #### [facility] [address] [facility] [place] WBC (Bld) [#/Vol] 5.9 3.6-10.7 10*3/uL Normal 08-19-2019 S [facility] (32022) Comment: Performed By: #### CXTIS ### # [facility] [address] [facility] [place] [facility] [address] [place] #### C/MICAELA #### [facility] [address] [place], [place] culture anaerobe on 2019-08-19 CULTURE ANAEROBE CULTURE ANAEROBE --> Status: F No [facility] 08-19-2019 [facility] No growth of anaerobes at 5 days. (16103) Comment: Order Comment: Specimen cat ected in O.R. Performed By: #### REINIER, C/ MICAELA #### [facility] [address] [place], [place] CULTURE ANAEROBE CULTURE ANAEROBE --> Status: F No [facility] 08-19-2019 [facility] No growth of anaerobes at 5 days. (81619) Comment: Order Comment: Specimen cat ected in O.R. Performed By: #### CXTIS ### # [facility] [facility] [address] [place] [facility] [address], [place] #### C/MICAELA #### [facility] [address] CULTURE ANAEROBE CULTURE ANAEROBE --> Status: F No [facility] 08-19-2019 [facility] No growth of anaerobes at 5 days. ([id number]) Comment: Order Comment: Specimen cat ected in O.R. Performed By: #### CXIVIS, C/ MICAELA #### [facility] [address], [place] basic metabolic panel on 2019-08-19 Anion gap [Moles/Vol] 4 Normal 08-19-19 20 [facility] (48001) Comment: Performed By: #### CXTIS ### # [facility] [address] [facility] ealt System [address] #### C/MICAELA #### [facility] [address] Chloride [Moles/Vol] 100 98-107 mmol/L Normal 08-18- 0 [facility] (69896) Comment: Performed By: #### CXTIS ### # [facility] [address] [facility] [place] [facility] [address] [facility] [place], [place] #### C/MICAELA #### [facility] [address] [facility] [place] Potassium [Moles/Vol] 3.5 3.5-5.1 mmol/L Normal 08-19-19 [facility] (10930) Comment: Performed By: #### CXTIS ### # [facility] [address] [facility] [place] [facility] [address] [facility] #### C/MICAELA #### [facility] [address] [facility] Sodium [Moles/Vol] 134 135-145 mmol/L Low 08-19-2019 [facility] (97764) Comment: Performed By: #### CXTIS ### # [facility] [address] [facility] [place] [facility] [address] [facility] #### C/MICAELA #### [facility] [address] [facility] Calcium [Mass/Vol] 8.4 8.4-10.4 mg/dL Normal 08-19-2019 [facility] (95151) Comment: Performed By: #### CXTIS ### # [facility] [address] [facility] [place] [facility] [address] [facility] #### C/MICAELA #### [facility] [address] [facility] CO2 [Moles/Vol] 31 22-30 mmol/L High 08-19-2019 [facility] (63540) Comment: Performed By: #### CXTIS ### # [facility] [address] [facility] [place] [facility] [address] [facility] #### C/MICALEA #### [facility] [address] Glucose [Mass/Vol] 104 70-100 mg/dL High 08-19-2019 [facility] (44505) Comment: Performed By: #### EDERTIS ### # [facility] [address] [place] [facility] [address] #### C/MICAELA #### [facility] [address] Urea nitrogen [Mass/Vol] 11 7-20 mg/dL Normal 08-18 [facility] (72118) Comment: Performed By: #### EDERTIS ### # [facility] [address] [facility] [address] #### C/MICAELA #### [facility] [address] Creatinine [Mass/Vol] 0.64 0.52-1.25 mg/dL Normal 08-19-19 20 [facility] (82304) Comment: Performed By: #### EDERTIS ### # [facility] [address] [facility] [address] #### C/MICAELA #### [facility] [address] GFR/1.73 sq M > 60.0 >60 mL/min/{1.73_m2} Normal 0 [facility] predicted among Syst em (17640) blacks MDRD (S/P/Bld) [Vol rate/Area] Comment: Performed By: #### CXTIS ### # [facility] [address] [facility] [address] #### C/MICAELA #### [facility] [address] GFR/1.73 sq M > 60.0 >60 mL/min/{1.73_m2} Normal 0 [facility] predicted among Syst em (94114) non-blacks MDRD (S/P/Bld) [Vol rate/Area] Comment: Result Comment: Source- MDRD equation with creatinine calibration to IDMS(NKDEP) eGFR not recommended for nicolas g dose adjustment Performed By: #### CXTIS ### # [facility] [address] [facility] [address] #### C/MICAELA #### [facility] [address] No panel information on 2019-08-19 Anaerobic Culture No growth of anaerobes 08-19-2019 [place], [place] at 5 days. (61686) Test Performed by [facility] 2019 [facility], [facility] E. ([address]) [place] [address] Specimen collected in O.R. Anaerobic Culture No growth of anaerobes 08-19-2019 [place], [place] at 5 days. (51179) Test Performed by [facility] 2019 [facility], [address] ([address]) [place] [address] Specimen collected in O.R. Anaerobic Culture No growth of anaerobes 08-19-2019 [place], [place] at 5 days. (329[address]) Test Performed by [facility] 2019 [facility], [address] ([address]) [place] [address] Specimen collected in O.R. Sodium [Moles/Vol] NEG mmol/L 08-19-2019 [place] ([address]) Comment: Test Performed by [facility] System, [address] [place] [address] Sodium [Moles/Vol] B 08-19-2019 [place] ([address]) Sodium [Moles/Vol] POS mmol/L 08-19-2019 [place] ([address]) Comment: Test Performed by [facility] System, [address] [place] [address] Test Performed by 08-19-2019 [place], [place] ([address]) System, [facility] [place] [address] Anion gap 4 mmol/L 08-19-[address] [facility] [Moles/Vol] [place] ( [address]) Calcium [Mass/Vol] 8.4 8.4 - 10.4 mg/dL 08-19-2019 [place], [place] (19 284) Chloride 100 98 - 107 mmol/L 08-19-2019 [facility]- [Moles/Vol] [place] ( [address]) CO2 [Moles/Vol] 31 22 - 30 mmol/L High 08-19-2019 [place], [place] (20 817) Creatinine 0.64 0.52 - 1.25 mg/dL 08-19-2019 [facility] [Mass/Vol] [place], [place] (4 3117) EGFR IF NonAfrican >60.0 >60 mL/min 08-19-2019 [place], [place] (14 495) Comment: Source- MDRD equation with c reatinine calibration to IDMS(NKDEP) eGFR not recommended for nicolas g dose adjustment GFR/1.73 sq M >60.0 >60 mL/min mL/min/{1.73_m2} 08-19-19 20 [facility] predicted among [facility] [place] MDRD [place] (4553 7) (S/P/Bld) [Vol rate/Area] Glucose [Mass/Vol] 104 70 - 100 mg/dL High 08-19-2019 [place] ([address]) Interpretation and Abnormal 08-19-2019 [facility] review of [facility] , laboratory results K Y (53650) Potassium 3.5 3.5 - 5.1 mmol/L 08-19-2019 [facility] [Moles/Vol] [place] ([address]) Sodium [Moles/Vol] 134 135 - 145 mmol/L Low 08-19-2019 [place] ([address]) Urea nitrogen 11 7 - 20 mg/dL 08-19-2019 [facility] [Mass/Vol] [place] ([address]) Test 08-19-2019 [facility] Performed by [facility] (452 37) System, [facility] [place] [address] Magnesium 1.9 1.6 - 2.3 mg/dL 08-19-2019 [facility] [Mass/Vol] [place] ([address]) Test 08-19-2019 [facility] Performed by [facility] (452 37) System, [facility] [place] [address] Absolute Baso # 0.0 0 - 0.2 10*3/uL 08-19-2019 [place] ([address]) Absolute Neut # 3.4 1.8 - 7 10*3/uL 08-19-2019 [place] ([address]) Basophils/100 WBC 0.4 0 - 2 % 08-19-2019 [facility] (Bld) [place] ([address]) Eosinophils (Bld) 0.2 0 - 0.5 10*3/uL 08-19-2019 M ercy [#/Vol] [place] ([address]) Eosinophils/100 2.8 1 - 6 % 08-19-2019 [facility] WBC (Bld) [place] ([address]) Erythrocyte 13.6 11.5 - % 08-19-2019 [facility] distribution width 14.5 H [facility], (RBC) [Ratio] [place] (45 237) Granulocytes/100 57.3 40 - 80 % 08-19-2019 Me [facility] WBC (Bld) [place] ([address]) Hematocrit (Bld) 24.3 35 - 47 % Low 08-19-2019 [facility] [Volume fraction] [place] ([address]) Hemoglobin (Bld) 8.4 11.7 - 16 g/dL Low 08-19-2019 Me [facility]cy [Mass/Vol] [place] ([address]) Interpretation and Abnormal 08-19-2019 [facility] review of [facility] , laboratory results K Y (37050) Lymphocytes (Bld) 1.9 1 - 4.3 10*3/uL 08-19-2019 M ercy [#/Vol] [place] ([address]) Lymphocytes/100 31.4 20 - 40 % 08-19-2019 [facility] WBC (Bld) [place] ([address]) MCH (RBC) [Entitic 30.8 26 - 34 pg 08-19-2019 [facility] mass] [place] ([address]) MCHC (RBC) 34.6 32 - 36 % 08-19-2019 [facility] [Mass/Vol] [place] ([address]) MCV (RBC) [Entitic 89.2 79 - 98 fL 08-19-2019 [facility] vol] [place] ([address]) Monocytes (Bld) 0.5 0 - 0.8 10*3/uL 08-19-2019 Dora [facility] [#/Vol] [place] ([address]) Monocytes/100 WBC 8.1 2 - 10 % 08-19-2019 [facility] (Bld) [place] ([address]) Platelet mean 7.9 7.4 - 10.4 fL 08-19-2019 [facility] [place] [facility] y volume (Bld) [facility], [Entitic vol] [place] (45 237) Platelets (Bld) 207 140 - 440 10*3/uL 08-19-2019 Dora cy [#/Vol] [place] ([address]) RBC (Bld) [#/Vol] 2.72 3.8 - 5.2 10*6/uL Low 08-19-2019 [place] ([address]) WBC (Bld) [#/Vol] 5.9 3.6 - 10.7 10*3/uL 08-19-2019 [place] ([address]) Test 08-19-2019 [facility] Performed by [facility] (452 37) System, [address] [place] [address] single donor plasma (cp2d) on 2019-08-18 Single Donor Thawed Plasma - 5 Day: Normal [facility] Plasma (CP2D) [id number] transfused 08/18/19 03:26 [facility] System (88090) Unit Blood Type: B Unit Blood Rh: NEG Blood Product Code: 0T5 Unit Number: [id number] Unit Status: transfused Barcoded Unit Number: =[id number] Barcoded Product Code: = Barcoded ABO/Rh: =%1700 Unit Expiration: Unit Volume Transfused: 310 Unit Transfusion Start Date/Time: Thawed Plasma - 5 Day: [id number] transfused 08/18/19 01:10 [facility] Unit Blood Type: B Unit Blood Rh: POS Blood Product Code: 0T5 Unit Number: [id number] Unit Status: transfused Barcoded Unit Number: =[id number] Barcoded Product Code: = Barcoded ABO/Rh: =%7300 Unit Expiration: Unit Volume Transfused: 242 Unit Transfusion Start Date/Time: Comment: Performed By: #### TROPN ### # [facility] [place] [address] [address] pheresis leuko reduced on 2019-08-18 Pheresis Leuko PATHOGEN REDUCED LR PPHR: Normal 08-18-2019 [facility] Reduced [id number] transfused 08/18/19 04:32 [facility] () Unit Blood Type: AB Unit Blood Rh: NEG Blood Product Code: PR2 Unit Number: [id number] Unit Status: transfused Barcoded Unit Number: =[id number] Barcoded Product Code: = Barcoded ABO/Rh: =%2800 Unit Expiration: Unit Volume Transfused: 300 Unit Transfusion Start Date/Time: Comment: Performed By: #### TROPN ### # [place] [address] [address] [place], [place] magnesium on 08 Magnesium [Mass/Vol] 2.0 1.6-2.3 mg/dL Normal 0 [facility] (30961) Comment: Performed By: #### CXTIS ### # [place] [address] [address] [place], [place] [facility] [place] #### C/MICAELA #### [place] [address] [address] [place] leukodepleted red cells on 2019-08-18 Leukodepleted Red Leukodepleted Red Cells: Normal 08-18-2019 [facility] Cells [id number] transfused 08/18/19 00:43 [facility] System (88517) Unit Blood Type: B Unit Blood Rh: POS Blood Product Code: AS1 Unit Number: [id number] Unit Status: transfused Barcoded Unit Number: =[id number] Barcoded Product Code: = Barcoded ABO/Rh: =%7300 Unit Expiration: Unit Volume Transfused: 300 Unit Transfusion Start Date/Time: Leukodepleted Red Cells: [id number] transfused 08/17/19 23:15 [facility] Unit Blood Type: B Unit Blood Rh: POS Blood Product Code: AS1 Unit Number: [id number] Unit Status: transfused Barcoded Unit Number: =[id number] Barcoded Product Code: = Barcoded ABO/Rh: =%7300 Unit Expiration: Unit Volume Transfused: 300 Unit Transfusion Start Date/Time: Comment: Performed By: #### TROPN ### # [facility] [address] hemogram w/ autodiff on 2019-08-18 Abs Baso Cnt 0.0 0.0-0.2 10*3/uL Normal 08-18-2019 [facility] (30460) Comment: Performed By: #### HEMDF, BM P3, MG3 ####[facility] [id number] [place], [place] Abs Neutrophile Cnt 5.8 1.8-7.0 10*3/uL Normal 08-18-2019 [facility] (68649) Comment: Performed By: #### HEMDF, BM P3, MG3 ####[facility] [id number] [place], [place] Basophils/100 WBC (Bld) 0.2 0.0-2.0 % Normal 2019 [facility] (70091) Comment: Performed By: #### HEMDF, BM P3, MG3 ####[facility] [id number] [place], [place] Eosinophils (Bld) [#/Vol] 0.0 0.0-0.5 10*3/uL Normal 03-0 [facility] (76008) Comment: Performed By: #### HEMDF, BM P3, MG3 ####[address] Eosinophils/100 WBC (Bld) 0.1 1.0-6.0 % Low 03-0 [facility] (34103) Comment: Performed By: #### HEMDF, BM P3, MG3 ####[address] Erythrocyte distribution 13.4 11.5-14.5 % Normal 08-17 [facility] width (RBC) [Ratio] (19742) Comment: Performed By: #### HEMDF, BM P3, MG3 ####[address] Granulocytes/100 WBC (Bld) 79.7 40.0-80.0 % Normal [facility] (54620) Comment: Performed By: #### HEMDF, BM P3, MG3 ####[address] Hematocrit (Bld) [Volume 22.9 35.0-47.0 % Low 08-17 [facility] System fraction] (72149) Comment: Performed By: #### HEMDF, BM P3, MG3 ####[address] Hemoglobin (Bld) [Mass/Vol] 7.9 11.7-16.0 g/dL Low [facility] (61651) Comment: Performed By: #### HEMDF, BM P3, MG3 ####[address] Lymphocytes (Bld) [#/Vol] 0.7 1.0-4.3 10*3/uL Low 03-0 [facility] (44636) Comment: Performed By: #### HEMDF, BM P3, MG3 ####[address] [place] Lymphocytes/100 WBC (Bld) 10.0 20.0-40.0 % Low 03-0 [facility] (51060) Comment: Performed By: #### HEMDF, BM P3, MG3 ####[address] MCH (RBC) [Entitic mass] 30.6 26.0-34.0 pg Normal 08-17 [facility] (59673) Comment: Performed By: #### HEMDF, BM P3, MG3 ####[address] MCHC (RBC) [Mass/Vol] 34.5 32.0-36.0 % Normal 08-18-19 [facility] (73463) Comment: Performed By: #### HEMDF, BM P3, MG3 ####[address] MCV (RBC) [Entitic vol] 88.6 79.0-98.0 fL Normal 2019 [facility] (60074) Comment: Performed By: #### HEMDF, BM P3, MG3 ####[address] Monocytes (Bld) [#/Vol] 0.7 0.0-0.8 10*3/uL Normal 2019 [facility] (16283) Comment: Performed By: #### HEMDF, BM P3, MG3 ####[address] Monocytes/100 WBC (Bld) 10.0 2.0-10.0 % Normal 2019 [facility] (95306) Comment: Performed By: #### HEMDF, BM P3, MG3 ####[address] Platelet mean volume (Bld) 7.8 7.4-10.4 fL Normal [facility] [Entitic vol] (53351 ) Comment: Performed By: #### HEMDF, BM P3, MG3 ####[facility] [address] [place], [place] Platelets (Bld) [#/Vol] 188 140-440 10*3/uL Normal 2019 [facility] (69687) Comment: Performed By: #### HEMDF, BM P3, MG3 ####[facility] [id number] [place], [place] RBC (Bld) [#/Vol] 2.59 3.80-5.20 10*6/uL Low 08-18-2019 S [facility] (25479) Comment: Performed By: #### HEMDF, BM P3, MG3 ####[facility] [address] [place], [place] WBC (Bld) [#/Vol] 7.3 3.6-10.7 10*3/uL Normal 08-18-2019 S [facility] (47858) Comment: Performed By: #### HEMDF, BM P3, MG3 ####[facility] [id number] [place], [place] hemoglobin and hematocrit on 2019-08-18 Hematocrit (Bld) [Volume 26.7 % Low 08-17 [place] ([address]) fraction] Comment: Performed By: #### CXTIS ### # [facility] [address] [place] [facility] [address] [place], [place] #### C/MICAELA #### [facility] [address] [place] Hemoglobin (Bld) [Mass/Vol] 9.4 g/[place] ([address]) Comment: Performed By: #### CXTIS ### # [facility] [address] [place] [facility] [address] [place] #### C/MICAELA #### [facility] [address] [place] Hematocrit (Bld) [Volume 17.6 35.0-47.0 % Low 08-17 [facility] fraction] (09128) Comment: Performed By: #### HGHCT ### #[facility] [place], [place] Hemoglobin (Bld) 6.1 11.7-16.0 g/dL Critically low 08-18-19 [facility] [Mass/Vol] System (0 0000) Comment: Performed By: #### HGHCT ### #[facility] [place], [place] basic metabolic panel on 2019-08-18 Anion gap [Moles/Vol] 7 Normal 08-18-19 [facility] (12933) Comment: Performed By: #### CXTIS ### # [facility] [address] [place] [facility] [address] [place], [place] #### C/MICAELA #### [facility] [address] [place] Calcium [Mass/Vol] 8.4 8.4-10.4 mg/dL Normal 08-18-2019 [facility] (13315) Comment: Performed By: #### CXTIS ### # [facility] [address] [place] [facility] [address] [place], [place] #### C/MICAELA #### [facility] [address] [place] CO2 [Moles/Vol] 27 22-30 mmol/L Normal 08-18-2019 [facility] (56530) Comment: Performed By: #### CXTIS ### # [facility] [address] [place] [facility] [address] [place], [place] #### C/MICAELA #### [facility] [address] [place] Creatinine [Mass/Vol] 0.52 0.52-1.25 mg/dL Normal 08-18-19 20 [email or web address] [facility] (43522) Comment: Performed By: #### CXTIS ### # [facility] [address] [place], [place] [facility] [address] [place] #### C/MICAELA #### [email or web address] [facility] [address] [place], [place] GFR/1.73 sq M > 60.0 >60 mL/min/{1.73_m2} Normal 0 [facility] predicted among Syst em (50235) blacks MDRD (S/P/Bld) [Vol rate/Area] Comment: Performed By: #### CXTIS ### # [email or web address] [facility] [address] [place], [place] [facility] [employer] [facility]alth System [address] [place], [place] #### C/MICAELA #### [email or web address] [facility] [address] [place] GFR/1.73 sq M > 60.0 >60 mL/min/{1.73_m2} Normal 0 [facility] predicted among Syst em (46997) non-blacks MDRD (S/P/Bld) [Vol rate/Area] Comment: Result Comment: Source- MDRD equation with creatinine calibration to IDMS(NKDEP) eGFR not recommended for nicolas g dose adjustment Performed By: #### CXTIS ### # [email or web address] [facility] [address] [place] [facility] [employer] [facility] System [address] [place], [place] #### C/MICAELA #### [email or web address] [facility] [address] [place], [place] Glucose [Mass/Vol] 95 70-100 mg/dL Normal 08-18-2019 [facility] (99206) Comment: Performed By: #### CXTIS ### # [email or web address] [facility] [address] [place] [facility] [address] [place] #### C/MICAELA #### [facility] [address] [place] Urea nitrogen [Mass/Vol] 13 7-20 mg/dL Normal 08-17 [facility] (32519) Comment: Performed By: #### CXTIS ### # [facility] [address] [place] [facility] [address] [place] #### C/MICAELA #### [facility] [address] [place] Chloride [Moles/Vol] 100 98-107 mmol/L Normal 0 [facility] (15095) Comment: Performed By: #### EDERTIS ### # [facility] [address] [place] [facility] [address] [place] #### C/MICAELA #### [facility] [address] [place] Potassium [Moles/Vol] 3.9 3.5-5.1 mmol/L Normal 08-18-19 [facility] (78576) Comment: Performed By: #### EDERTIS ### # [facility] [address] [place] [facility] [address] [place] #### C/MICAELA #### [facility] [address] [place] Sodium [Moles/Vol] 134 135-145 mmol/L Low 08-18-2019 [facility] (49095) Comment: Performed By: #### CXTIS ### # [facility] [address] [place] [facility] [address] [place] #### C/MICAELA #### [facility] [address] [place] No panel information on 2019-08-18 Interpretation and Abnormal 08-18-2019 [facility]- [place] ([address]) results Test Performed by 08-18-2019 [place] ([address]) [facility], [address] [place] [address] Anion gap [Moles/Vol] 7 mmol/L 08-18-19 20 [place], [place] (81 313) Calcium [Mass/Vol] 8.4 8.4 - 10.4 mg/dL 08-18-2019 [place] (22 094) Chloride [Moles/Vol] 100 98 - 107 mmol/L 0 [place] (88 686) CO2 [Moles/Vol] 27 22 - 30 mmol/L 08-18-2019 [place] (94 249) Creatinine [Mass/Vol] 0.52 0.52 - 1.25 mg/dL 2019 [place], [place] (41 718) EGFR IF NonAfrican >60.0 >60 mL/min 08-18-2019 [place], [place] (21 417) Comment: Source- MDRD equation with c reatinine calibration to IDMS(NKDEP) eGFR not recommended for nicolas g dose adjustment GFR/1.73 sq M >60.0 >60 mL/min/{1.73_m2} 0 [facility] predicted among mL/min [facility] [place] (S/P/Bld) [Vol (6423 7) rate/Area] Glucose [Mass/Vol] 95 70 - 100 mg/dL 08-18-2019 [place] ([address]) Interpretation and Abnormal 08-18-2019 [facility] review of [facility]- [place] ([address]) Magnesium 2.0 1.6 - 2.3 mg/dL 08-18-2019 [facility] [Mass/Vol] [place] ([address]) Potassium 3.9 3.5 - 5.1 mmol/L 08-18-2019 [facility] [Moles/Vol] [place] ([address]) Sodium [Moles/Vol] 134 135 - 145 mmol/L Low 08-18-2019 [place] ([address]) Urea nitrogen 13 7 - 20 mg/dL 08-18-2019 [facility] [Mass/Vol] [place] ([address]) Test Performed 08-18-2019 Merc [facility] by [facility], [address] [facility], ([address]) ANJEL [place] [address] Absolute Baso # 0.0 0 - 0.2 10*3/uL 08-18-2019 [place] ([address]) Absolute Neut # 5.8 1.8 - 7 10*3/uL 08-18-2019 [place] ([address]) Basophils/100 WBC 0.2 0 - 2 % 08-18-2019 [facility] er[facility] (Bld) [place] ([address]) Eosinophils (Bld) 0.0 0 - 0.5 10*3/uL 08-18-2019 M ercy [#/Vol] [place] ([address]) Eosinophils/100 0.1 1 - 6 % Low 08-18-2019 [address] [address] WBC (Bld) [place] ([address]) Erythrocyte 13.4 11.5 - % 08-18-2019 [facility] distribution width 14.5 H ealth- (RBC) [Ratio] [place] ([address]) Granulocytes/100 79.7 40 - 80 % 08-18-2019 Me [facility]cy WBC (Bld) [place] ([address]) Hematocrit (Bld) 22.9 35 - 47 % Low 08-18-2019 Me [facility]cy [Volume fraction] [place] ([address]) Hemoglobin (Bld) 7.9 11.7 - 16 g/dL Low 08-18-2019 Me [facility]cy [Mass/Vol] [place] ([address]) Interpretation and Abnormal 08-18-2019 [facility] review of [facility]- [place] ([address]) Lymphocytes (Bld) 0.7 1 - 4.3 10*3/uL Low 08-18-2019 M ercy [#/Vol] [place] ([id number]) Lymphocytes/100 10.0 20 - 40 % Low 08-18-2019 [facility] WBC (Bld) [place] ([id number]) MCH (RBC) [Entitic 30.6 26 - 34 pg 08-18-2019 [facility] mass] [place] ([id number]) MCHC (RBC) 34.5 32 - 36 % 08-18-2019 [facility] [Mass/Vol] [place] ([id number]) MCV (RBC) [Entitic 88.6 79 - 98 fL 08-18-2019 [facility] vol] [place] ([address]) Monocytes (Bld) 0.7 0 - 0.8 10*3/uL 08-18-2019 [facility] [#/Vol] [place] ([id number]) Monocytes/100 WBC 10.0 2 - 10 % 08-18-2019 M er[facility] (Bld) [place] ([id number]) Platelet mean 7.8 7.4 - fL 08-18-2019 [facility] volume (Bld) 10.4 [facility] [Entitic vol] [place] ([id number]) Platelets (Bld) 188 140 - 440 10*3/uL 08-18-2019 Dora cy [#/Vol] [place] ([address]) RBC (Bld) [#/Vol] 2.59 3.8 - 5.2 10*6/uL Low 08-18-2019 [place] ([address]) WBC (Bld) [#/Vol] 7.3 3.6 - 10*3/uL 08-18-2019 M [place]cy 10.7 [place] ([address]) Test Performed 08-18-2019 [facility] by [facility], [address] [place] [address], ([address]) [place] [address] ABO and Rh group 2800 08-18-2019 Ky rcy Nom (Bld) [place] ([address]) Blood product unit [id number] 020 [facility] ID (Dose) [#] [place], [place] ([address]) Sodium [Moles/Vol] transfused 08-18-2019 [place] ([address]) Sodium [Moles/Vol] [id number] 08-18-2019 [place] ([address]) Sodium [Moles/Vol] 844661347113 mmol/L 08-18-19 20 [place] ([address]) 08-18-2019 [place] ([address]) ABO and Rh group 7300 08-18-2019 [place] rcy Nom (Bld) [place] ([address]) ABO and Rh group 1700 08-18-2019 [place] Nom (Bld) [place] ([address]) Blood product unit [id number] [facility] ID (Dose) [#] [place] ([address]) Blood product unit [id number] [facility] ID (Dose) [#] [place] ([address]) Sodium [Moles/Vol] 257801415998 mmol/L 08-18-19 [place] ([address]) Sodium [Moles/Vol] transfused 08-18-2019 [place] ([address]) Sodium [Moles/Vol] [id number] 08-18-2019 [place] ([address]) 08-18-2019 [place] ([address]) vancomycin trough o n 2019-08-17 Vancomycin Trough 11.7 15.0-20.0 ug/mL Low 08-17-2019 S [facility] (74811) Comment: Result Comment: . Performed By: #### VANCT ### #[facility] TourMatters[address] [place] renal function on Calcium [Mass/Vol] 8.8 8.4-10.4 mg/dL Normal 08-17-2019 [facility] (05511) Comment: Performed By: #### HEMDF, RE NL3, MG3 ####UBIK[address] [place] Glucose [Mass/Vol] 127 70-100 mg/dL High 08-17-2019 [facility] (78410) Comment: Performed By: #### HEMDF, RE NL3, MG3 ####[address] [place], [place] Phosphate [Mass/Vol] 3.8 2.5-4.5 mg/dL Normal 0 [facility] (54930) Comment: Performed By: #### HEMDF, RE NL3, MG3 ####[employer] [address] [place], [place] Anion gap [Moles/Vol] 10 Normal 08-17-19 [facility] (31588) Comment: Performed By: #### HEMDF, RE NL3, MG3 ####[facility] [address] [place], [place] CO2 [Moles/Vol] 25 22-30 mmol/L Normal 08-17-2019 [facility] (16256) Comment: Performed By: #### HEMDF, RE NL3, MG3 ####[facility] [address] [place], [place] Creatinine [Mass/Vol] 0.58 0.52-1.25 mg/dL Normal 08-17-19 [facility] (25497) Comment: Performed By: #### HEMDF, RE NL3, MG3 ####[facility] Tour[address]ters[address] [place], [place] GFR/1.73 sq M > 60.0 >60 mL/min/{1.73_m2} Normal 0 [facility] predicted among Syst em ([address]) blacks MDRD (S/P/Bld) [Vol rate/Area] Comment: Performed By: #### HEMDF, RE NL3, MG3 ####[facility] [address] [place], [place] GFR/1.73 sq M > 60.0 >60 mL/min/{1.73_m2} Normal 0 [facility] predicted among Syst em ([address]) non-blacks MDRD (S/P/Bld) [Vol rate/Area] Comment: Result Comment: Source- MDRD equation with creatinine calibration to IDMS(NKDEP) eGFR not recommended for nicolas g dose adjustment Performed By: #### HEMDF, RE NL3, MG3 ####[email or web address] [address] [place], [place] Urea nitrogen [Mass/Vol] 15 7-20 mg/dL Normal 08-16 [facility] (93682) Comment: Performed By: #### HEMDF, RE NL3, MG3 ####[facility] [address] [place] [address] Albumin [Mass/Vol] 3.5 3.5-5.0 g/dL Normal 08-17-2019 [facility] (61043) Comment: Performed By: #### HEMDF, RE NL3, MG3 ####[facility] [address] [place], [place] Chloride [Moles/Vol] 98 98-107 mmol/L Normal 0 [facility] (51601) Comment: Performed By: #### HEMDF, RE NL3, MG3 ####[facility] [address] [place], [place] Potassium [Moles/Vol] 4.3 3.5-5.1 mmol/L Normal 08-17-19 20 [facility] (85581) Comment: Performed By: #### HEMDF, RE NL3, MG3 ####[facility] [address] [place], [place] Sodium [Moles/Vol] 133 135-145 mmol/L Low 08-17-2019 [facility] (41485) Comment: Performed By: #### HEMDF, RE NL3, MG3 ####[facility] [address] . [place], [place] op note on Op Note [facility] Normal 03-0 [facility] (23296) [address] [address] Dept: [phone] Loc: [phone] Operative Report Patient Name: Denys Arriola Date of : 1985 Date of Surgery: 08/17/19 Location: [facility] Preoperative Diagnosis: 1. 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 ALT free flap from Right thigh to LLE 2. placement of bone cement Surgeon: Jesse Burnham MD 1st Assist: Mehreen PGY 8 2nd Assist: Wild PGY 6 Implants: 2mm & 2.5 mm cone machine feeder, Pallikos bone cement with 3 G Vancomycin [...] patient's ASA was verified by the nurse documentation spec and the anesthesia staff. Fire risk was assessed. The anterior incision was made over the rectus femoris. This incison was carried to the fascia level and the subfascial place was the n entered and elevated laterally exposing both the distal fat stripe mar elmira the interval between the Vastus Lateralis and the Rectus Femoris. A box storage worker was identified along the axis corresponding to the preoperatively marked si gnal. This was circumferentially dissected. The entirety of the medial inci petrona was then completed and the subfascial dissection was continued. At th is point the lateral incision was made and the flap was isolated on its p erforator. The box storage worker was then dissected cephalad and freed circu mferentially until the confluence of the transverse branch and the large branch to the rectus femoris. The isolated box storage worker was very small and there was a large amount of subcutaneous fat. On initial dissection the pr eviously placed cement spacer completely fell out of the bone. I discussed this with the forest fire control officer orth opedic surgeon and as per our [...] even after a Blu with a 3 Occitan and 2 Occitan Fog arty were passed, the greater saphenous [...] heparin saline. Then using a 2 mm cone machine feeder these were anast omosed. Attention was then [...] skin closure, the due to the single box storage worker I do not feel comfortable doing that [...] Magnesium [Mass/Vol] 1.4 1.6-2.3 mg/dL Low 0 [facility] (50080) Comment: Performed By: #### HEMDF, RE NL3, MG3 ####[facility] [address] [place], [place] hemogram on 2019-08 Erythrocyte distribution 13.8 11.5-14.5 % Normal 08-16 [facility] width (RBC) [Ratio] (18988) Comment: Performed By: #### TROPN ### # [facility] [address] [place], [place] Hematocrit (Bld) [Volume 32.2 35.0-47.0 % Low 08-16 [facility] System fraction] (30792) Comment: Performed By: #### TROPN ### # [facility] [address] [place] [address] Hemoglobin (Bld) [Mass/Vol] 10.9 11.7-16.0 g/dL Low [facility] (98985) Comment: Performed By: #### TROPN ### # [facility] [address] [place], [place] MCH (RBC) [Entitic mass] 30.0 26.0-34.0 pg Normal 08-16 [facility] (69593) Comment: Performed By: #### TROPN ### # [facility] [address] [place], [place] MCHC (RBC) [Mass/Vol] 33.8 32.0-36.0 % Normal 08-17-19 20 [facility] (78545) Comment: Performed By: #### TROPN ### # [address] [address] [address] [place], [place] MCV (RBC) [Entitic vol] 88.6 79.0-98.0 fL Normal 2019 [facility] (00238) Comment: Performed By: #### TROPN ### # [address] [address] [address] [place], [place] Platelet mean volume (Bld) 8.0 7.4-10.4 fL Normal [facility] [Entitic vol] (09112 ) Comment: Performed By: #### TROPN ### # [address] [address] [address] [place], [place] Platelets (Bld) [#/Vol] 282 140-440 10*3/uL Normal 2019 [facility] (76315) Comment: Performed By: #### TROPN ### # [address] [address] [address] [place], [place] RBC (Bld) [#/Vol] 3.63 3.80-5.20 10*6/uL Low 08-17-2019 S [facility] (59716) Comment: Performed By: #### TROPN ### # [address] [address] [address] [place], [place] WBC (Bld) [#/Vol] 8.5 3.6-10.7 10*3/uL Normal 08-17-2019 S [facility] (63702) Comment: Performed By: #### TROPN ### # [address] [address] [address] [place], [place] hemogram w/ autodiff on 2019-08-17 Abs Baso Cnt 0.0 0.0-0.2 10*3/uL Normal 08-17-2019 [facility] (13008) Comment: Performed By: #### HEMDF, RE NL3, MG3 ####[facility] [address] [place], [place] Abs Neutrophile Cnt 15.4 1.8-7.0 10*3/uL High 08-17-2019 [facility] (08634) Comment: Performed By: #### HEMDF RE NL3, MG3 ####[facility] [address] [place], [place] Basophils/100 WBC (Bld) 0.1 0.0-2.0 % Normal 2019 [facility] (46966) Comment: Performed By: #### HEMDF RE NL3, MG3 ####[address] . [place], [place] Eosinophils (Bld) [#/Vol] 0.0 0.0-0.5 10*3/uL Normal [facility] (78903) Comment: Performed By: #### HEMOLAYINKA RE NL3, MG3 ####[facility] [address] [place], [place] Eosinophils/100 WBC (Bld) 0.0 1.0-6.0 % Low [facility] (96324) Comment: Performed By: #### HEMOLAYINKA RE NL3, MG3 ####[address] [place], [place] Erythrocyte distribution 13.2 11.5-14.5 % Normal 08-16 [facility] width (RBC) [Ratio] (12379) Comment: Performed By: #### HEMDF, RE NL3, MG3 ####[facility] [address] . [place], [place] Granulocytes/100 WBC (Bld) 92.7 40.0-80.0 % High [facility] (38859) Comment: Performed By: #### HEMDF, RE NL3, MG3 ####[facility] [address] . [place], [place] Hematocrit (Bld) [Volume 22.4 35.0-47.0 % Low 08-16 [facility] fraction] (28014) Comment: Performed By: #### HEMOLAYINKA RE NL3, MG3 ####[address] Hemoglobin (Bld) [Mass/Vol] 7.5 11.7-16.0 g/dL Low [facility] (34420) Comment: Performed By: #### HEMOLAYINKA RE NL3, MG3 ####[address] Lymphocytes (Bld) [#/Vol] 0.6 1.0-4.3 10*3/uL Low [facility] (24364) Comment: Performed By: #### HEMOLAYINKA RE NL3, MG3 ####[address] Lymphocytes/100 WBC (Bld) 3.7 20.0-40.0 % Low 0 [facility] (44525) Comment: Performed By: #### HEMOLAYINKA RE NL3, MG3 ####[address] MCH (RBC) [Entitic mass] 29.5 26.0-34.0 pg Normal 08-16 [facility] (00023) Comment: Performed By: #### HEMOLAYINKA RE NL3, MG3 ####[address] MCHC (RBC) [Mass/Vol] 33.8 32.0-36.0 % Normal 08-17-19 [facility] (95098) Comment: Performed By: #### HEMDF RE NL3, MG3 ####[address] MCV (RBC) [Entitic vol] 87.4 79.0-98.0 fL Normal 2019 [facility] (25833) Comment: Performed By: #### HEMDF RE NL3, MG3 ####[facility] [address] [place], [place] Monocytes (Bld) [#/Vol] 0.6 0.0-0.8 10*3/uL Normal 2019 [facility] (58796) Comment: Performed By: #### HEMDF, RE NL3, MG3 ####[facility] [address] [place], [place] Monocytes/100 WBC (Bld) 3.5 2.0-10.0 % Normal 2019 [facility] (51157) Comment: Performed By: #### HEMDF, RE NL3, MG3 ####[facility] [address] [place], [place] Platelet mean volume (Bld) 7.7 7.4-10.4 fL Normal [facility] [Entitic vol] (91977 ) Comment: Performed By: #### HEMDF, RE NL3, MG3 ####[facility] [address] [place], [place] Platelets (Bld) [#/Vol] 265 140-440 10*3/uL Normal 2019 [facility] (11419) Comment: Performed By: #### HEMDF, RE NL3, MG3 ####[facility] [address] [place], [place] RBC (Bld) [#/Vol] 2.56 3.80-5.20 10*6/uL Low 08-17-2019 S [facility] (37790) Comment: Performed By: #### HEMDF, RE NL3, MG3 ####[facility] [address] [facility], [place] WBC (Bld) [#/Vol] 16.6 3.6-10.7 10*3/uL High 08-17-2019 S [facility] (90771) Comment: Performed By: #### HEMDF, RE NL3, MG3 ####[facility] [address] [place], [place] culture and stain - tissue on 2019-08-17 CULTURE AND STAIN STAIN GRAM --> Status: F Normal 08-17-2019 [facility] - TISSUE Few polymorphonuclear cells/lpf. System (55904) No organisms seen. No organisms seen. 1 Organism Corynebacterium striatum Few Possible identification For identification and/or sensitivity, refer to culture collected on: 08/14/2019 at 08:15 ([id number]). Comment: Order Comment: Specimen cat ected in O.R. Performed By: #### Alla HILLS/ MICAELA #### [facility] [address] [place] [address] CULTURE AND STAIN STAIN GRAM --> Status: F Normal 08-17-2019 [facility] - TISSUE Few polymorphonuclear cells/lpf. System (12377) No organisms seen. No organisms seen. 1 Organism Corynebacterium striatum Rare Possible identification For identification and/or sensitivity, refer to culture collected on: 08/14/2019 at 08:15 ([id number]). Comment: Order Comment: Specimen cat ected in O.R. Performed By: #### Alla HILLS/ MICAELA #### [facility] [address] [place] [address] CULTURE STAIN GRAM --> Status: F Normal 08-16 [facility] AND Few polymorphonuclear cells/lpf. Health STAIN - No organisms seen. S ystem TISSUE No organisms seen. ( 33313) 1 Organism Corynebacterium striatum Few Possible identification 1 Organism Antibiotic Result Intrp Ceftriaxone(BP) > 32 R Penicillin(BP) > 32 R Vancomycin(BP) = 0.50 S Comment: Order Comment: Specimen cat ected in O.R. Performed By: #### CXTIS ### # [facility] System [address] [place] [address] [facility] [address] [place], [place] [id number] #### C/MICAELA #### [facility] System [address] [place] [address] cr tibia/fibula 2 views bilateral on 2019-08-17 CR Tibia/Fibula 2 Patient Name: DENYS ARRIOLA mal 08-17-2019 [facility] Views Bilateral System (48389) Diagnostic Radiology Exam Date/Time 08/17/2019 14:30:00 EST Exam CR Tibia/Fibula 2 Views Bilateral Ordering Physician MD BURNHAM DYLAN R Accession Number [id number] CPT4 Codes 57768 () Reason For Exam incorrect count in [...] View Patient Name: DENYS ARRIOLA l 08-17-2019 [facility] System Right (10902 ) Diagnostic Radiology Exam Date/Time 08/17/2019 14:30:00 EST Exam CR Femur 1 View Right n Ordering Physician MD BURNHAM DYLAN R Accession Number [id number] CPT4 Codes 68784 () Reason For Exam incorrect count in [...] 3+ Views Patient Name: DENYS ARRIOLA 08-17-2019 [facility] Left (00586 ) Diagnostic Radiology Exam Date/Time 08/17/2019 18:42:14 EST Exam CR Ankle 3+ Views Left Ordering Physician STEVEN KNUTSON Accession Number [id number] CPT4 Codes 63998 () Reason For Exam post op ankle [...] 2019-08-17 Anion gap [Moles/Vol] 6 Normal 08-17-19 [facility] (20254) Comment: Performed By: #### TROPN ### # [facility] [address] [place] [address] Calcium [Mass/Vol] 8.7 8.4-10.4 mg/dL Normal 08-17-2019 [facility] (88467) Comment: Performed By: #### TROPN ### # [facility] [address] [place] [address] CO2 [Moles/Vol] 26 22-30 mmol/L Normal 08-17-2019 [facility] (25688) Comment: Performed By: #### TROPN ### # [facility] [address] [place] [address] Glucose [Mass/Vol] 97 70-100 mg/dL Normal 08-17-2019 [facility] (02091) Comment: Performed By: #### TROPN ### # [facility] [address] [place] [address] Urea nitrogen [Mass/Vol] 26 7-20 mg/dL High 08-16 [facility] (07981) Comment: Performed By: #### TROPN ### # [facility] [address] [place] [address] Creatinine [Mass/Vol] 0.63 0.52-1.25 mg/dL Normal 08-17-19 20 [facility] (73137) Comment: Performed By: #### TROPN ### # [facility] [address] [place] [address] GFR/1.73 sq M > 60.0 >60 mL/min/{1.73_m2} Normal 0 [facility] predicted among Syst em (53508) blacks MDRD (S/P/Bld) [Vol rate/Area] Comment: Performed By: #### TROPN ### # [facility] [address] [place] [address] GFR/1.73 sq M > 60.0 >60 mL/min/{1.73_m2} Normal 0 [facility] predicted among Syst em (12497) non-blacks MDRD (S/P/Bld) [Vol rate/Area] Comment: Result Comment: Source- MDRD equation with creatinine calibration to IDMS(NKDEP) eGFR not recommended for nicolas g dose adjustment Performed By: #### TROPN ### # [facility] [address] [place] [address] Chloride [Moles/Vol] 104 98-107 mmol/L Normal 0 [facility] (27742) Comment: Performed By: #### TROPN ### # [facility] [address] [place], [place] Potassium [Moles/Vol] 4.3 3.5-5.1 mmol/L Normal 08-17-19 20 [facility] (25033) Comment: Performed By: #### TROPN ### # [facility] [address] [place], [place] Sodium [Moles/Vol] 136 135-145 mmol/L Normal 08-17-2019 [facility] (14021) Comment: Performed By: #### TROPN ### # [facility] [address] [place], [place] No panel information on 2019-08-17 ABO and Rh group 7300 08-17-2019 Ky rcy Nom (Bld) [place] ([address]) Blood product unit [id number] 020 [facility] ID (Dose) [#] [place] ([address]) Blood product unit [id number] 020 [facility] ID (Dose) [#] [place] ([address]) Sodium [Moles/Vol] [id number] mmol/ 08-17-19 20 [place] ([address]) Sodium [Moles/Vol] transfused 08-17-2019 [place], [place] ([address]) Sodium [Moles/Vol] [id number] 08-17-2019 [place] ([address]) Sodium [Moles/Vol] 301785024763 mmol/ 03-07-20 20 [place] ([address]) 08-17-2019 [place] ([address]) Hematocrit (Bld) 17.6 35 - 47 % Low 08-17-2019 Me rcy [Volume fraction] [place] ([address]) Hemoglobin (Bld) 6.1 11.7 - g/dL Critically low 08-17-19 20 [facility] [Mass/Vol] 16 [place] ([address]) Interpretation and Abnormal 08-17-2019 [facility] review of [facility] , laboratory results K Y (15205) Test Performed by 08-17-2019 [facility] System, [address]) [place] [address] Albumin [Mass/Vol] 3.5 3.5 - 5 g/dL 08-17-2019 [place] ([address]) Anion gap 10 mmol/ 08-17-2019 [facility] [Moles/Vol] [place] ([address]) Calcium [Mass/Vol] 8.8 8.4 - mg/dL 08-17-2019 [facility] 10.4 [place] ([address]) Chloride 98 98 - 107 mmol/ 08-17-2019 [facility] [Moles/Vol] [place] ([address]) CO2 [Moles/Vol] 25 22 - 30 mmol/ 08-17-2019 [place] ([address]) Creatinine 0.58 0.52 - mg/dL 08-17-2019 [facility] [Mass/Vol] 1.25 [place] ([address]) EGFR IF NonAfrican >60.0 >60 08-17-2019 [facility] Algerian mL/[place] ([address]) Comment: Source- MDRD equation with c reatinine calibration to IDMS(NKDEP) eGFR not recommended for nicolas g dose adjustment GFR/1.73 sq M >60.0 >60 mL/min/{1.73_m2} 0 [facility] predicted among mL/min Heal th- blacks MDRD [place] (S/P/Bld) [Vol (4523 7) rate/Area] Glucose 127 70 - mg/dL High 08-17-2019 [facility] [Mass/Vol] 100 [place] ([address]) Interpretation Abnormal 08-17-2019 [facility] and review of Health - laboratory [place], [place] results ([address]) Magnesium 1.4 1.6 - mg/dL Low 08-17-2019 [facility] [Mass/Vol] 2.3 [place] ([address]) Phosphate 3.8 2.5 - mg/dL 08-17-2019 [facility] [Mass/Vol] 4.5 [place] ([address]) Potassium 4.3 3.5 - mmol/L 08-17-2019 [facility] [Moles/Vol] 5.1 [place] ([address]) Sodium 133 135 - mmol/L Low 08-17-2019 [facility] [Moles/Vol] 145 [place] ([address]) Urea nitrogen 15 7 - 20 mg/dL 08-17-2019 [facility] [Mass/Vol] [place] ([address]) Test Performed by 08-17-2019 [facility], [facility] E. [place], [place] [facility], ( [address]) [place] [address] [facility] Incoming Radiology Results From [facility] - 2019 7:02 PM EST 08-17-2019 [place], [place] Patient Name: DENYS ARRIOLA ([id number]) ---Diagnostic Radiology--- Exam Date/Time 08/17/2019 18:42:14 EST Exam CR Ankle 3+ Views Left Ordering Physician STEVEN KNUTSON Accession Number [id number] CPT4 Codes 92721 () Reason For Exam post op ankle [...] 08-17-2019 DENYS Sargent - Eliana HOBBS ( [address]) ---Diagnostic Radiology--- Exam Date/Time 08/17/2019 18:42:14 EST Exam CR Ankle 3+ Views Left Ordering Physician STEVEN KNUTSON Accession Number [id number] CPT4 Codes 65460 () Reason For Exam post op ankle [...] 0.0 0 - 0.2 10*3/uL 08-17-2019 [place] ([address]) Absolute Neut # 15.4 1.8 - 7 10*3/uL High 08-17-2019 [place] ([address]) Basophils/100 0.1 0 - 2 % 08-17-2019 [facility] [place] [facility] WBC (Bld) [place] ([address]) Eosinophils 0.0 0 - 0.5 10*3/uL 08-17-2019 [facility] (Bld) [#/Vol] [place] ([address]) Eosinophils/100 0.0 1 - 6 % Low 08-17-2019 Dora cy WBC (Bld) [place] ([address]) Erythrocyte 13.2 11.5 - % 08-17-2019 [facility] distribution 14.5 Health- width (RBC) [place], [place] [Ratio] ([address]) Granulocytes/10 92.7 40 - 80 % High 08-17-2019 Dora cy 0 WBC (Bld) [place] ([address]) Hematocrit 22.4 35 - 47 % Low 08-17-2019 [facility] (Bld) [Volume Health - fraction] [place] ([address]) Hemoglobin 7.5 11.7 - g/dL Low 08-17-2019 [facility] (Bld) 16 Health- [Mass/Vol] [place] ([address]) Interpretation Abnormal 08-17-2019 Merc y and review of Health - laboratory [place] results ([address]) Lymphocytes 0.6 1 - 4.3 10*3/uL Low 08-17-2019 [facility] (Bld) [#/Vol] [place] ([address]) Lymphocytes/100 3.7 20 - 40 % Low 08-17-2019 Dora cy WBC (Bld) [place] ([address]) MCH (RBC) 29.5 26 - 34 pg 08-17-2019 [facility] [Entitic mass] [place] ([address]) MCHC (RBC) 33.8 32 - 36 % 08-17-2019 [facility] [Mass/Vol] [place] ([address]) MCV (RBC) 87.4 79 - 98 fL 08-17-2019 [facility] [Entitic vol] [place] ([address]) Monocytes (Bld) 0.6 0 - 0.8 10*3/uL 08-17-2019 Dora cy [#/Vol] [place] ([address]) Monocytes/100 3.5 2 - 10 % 08-17-2019 [facility] WBC (Bld) [place] ([address]) Platelet mean 7.7 7.4 - fL 08-17-2019 [facility] volume (Bld) 10.4 [facility] [Entitic vol] [place] ([address]) Platelets (Bld) 265 140 - 10*3/uL 08-17-2019 Dora cy [#/Vol] 440 [place] ([address]) RBC (Bld) 2.56 3.8 - 10*6/uL Low 08-17-2019 [facility] [#/Vol] 5.2 [place] ([address]) WBC (Bld) 16.6 3.6 - 10*3/uL High 08-17-2019 [facility] [#/Vol] 10.7 [place] ([address]) Test Performed by 08-17-2019 Chelle [facility], [address] [place], [place] [facility], ( [address]) [place] [address] [facility], [facility] In[facility] Rad[facility] 5:08 PM EST 08-17-2019 [place], [place] Patient Name: DENYS ARRIOLA ([id number]) ---Diagnostic Radiology--- Exam Date/Time 08/17/2019 14:30:00 EST Exam CR Tibia/Fibula 2 Views Bilateral Ordering Physician MD BURNHAM DYLAN R Accession Number [id number] CPT4 Codes 92812 () Reason For Exam incorrect count in [...] DENYS Sargent Healt [facility]- [place]iana HOBBS ( [id number]) ---Diagnostic Radiology--- Exam Date/Time 08/17/2019 14:30:00 EST Exam CR Tibia/Fibula 2 Views Bilateral Ordering Physician MD BURNHAM DYLAN R Accession Number [id number] CPT4 Codes 43125 () Reason For Exam incorrect count in [...] 08/17/2019 5:05 Patient Name: 08-17-2019 [facility] [place] ( [address]) ---Diagnostic Radiology--- Exam Date/Time 08/17/2019 14:30:00 EST Exam CR Femur 1 View Right n Ordering Physician MD BURNHAM DYLAN R Accession Number [id number] CPT4 Codes 97271 () Reason For Exam incorrect count in [...] 5:03 [facility] Incoming Radiology Results From [facility] - 2019 5:06 PM EST 08-17-2019 [place] Patient Name: DENYS ARRIOLA ([id number]) ---Diagnostic Radiology--- Exam Date/Time 08/17/2019 14:30:00 EST Exam CR Femur 1 View Right n Ordering Physician MD BURNHAM DYLAN R Accession Number [id number] CPT4 Codes 40009 () Reason For Exam incorrect count in [...] 08-17-2019 [facility] [Relative time] [place] ([address]) Interpretation Abnormal 08-17-2019 [facility] and review of Health - laboratory [place], [place] results ([address]) Tissue Few 08-17-2019 [facility] Cult/Smear, Aer Possible identification Health- For identification and/or sensitivity, refer to culture [place] collected on: 08/14/2019 at 08:15 ([id number]). (96657) Tissue Corynebacterium Abnormal 08-17-2019 [facility] cy Cult/Smear, [place] striatum [place] ([address]) Test Performed by 08-17-2019 [facility], [address] [place], [place] [facility], ( [address]) [place] [address] Specimen collected in O.R. INR Coag (Bld) Few polymorphonuclear cells/lpf. 08-17-2019 [facility] [Relative time] [place] ([address]) Interpretation Abnormal 08-17-2019 [facility] and review of Health - laboratory [place] results ([address]) Tissue Rare 08-17-2019 [facility] Cult/Smear, Aer Possible identification [facility] For identification and/or sensitivity, refer to culture [place] collected on: 08/14/2019 at 08:15 ([id number]). (13320) Tissue Corynebacterium Abnormal 08-17-2019 [facility] cy Cult/Smear, [place] ([address]) Test Performed by 08-17-2019 [facility], [address] [place], [employer] [facility], ( [address]) [place] [address] Specimen collected in O.R. INR Coag (Bld) Few polymorphonuclear cells/lpf. 08-17-2019 [facility] [Relative time] [place] ([address]) Interpretation Abnormal 08-17-2019 [facility] and review of Health - laboratory [place] results ([address]) Tissue Corynebacterium Abnormal 08-17-2019 [facility] cy Cult/Smear, Aer striatum [place] ([address]) Tissue Few 08-17-2019 [facility] Cult/Smear, Aer [place] ([address]) Test Performed by 08-17-2019 [facility], [facility] [address]. [place], [employer] [place] [facility], ( [address]) [place] [address] Specimen collected in O.R. Interpretation Abnormal 08-17-2019 [facility] and review of Health - [place] results ([address]) Vancomycin Tr 11.7 15 - 20 ug/mL Low 08-17-2019 [place] ([address]) Comment: . Test Performed by 08-17-2019 [place] ([address]) System, [address] [place] [address], [place] [address] Anion gap 6 mmol/L 08-17-2019 [facility] lt- [Moles/Vol] [place] ( [address]) Calcium [Mass/Vol] 8.7 8.4 - 10.4 mg/dL 08-17-2019 [place], [place] ([address]) Chloride 104 98 - 107 mmol/L 08-17-2019 [facility] lt- [Moles/Vol] [place] ( [address]) CO2 [Moles/Vol] 26 22 - 30 mmol/L 08-17-2019 [place], [place] ([address]) Creatinine 0.63 0.52 - 1.25 mg/dL 08-17-2019 [facility] [Mass/Vol] [place], [place] ([address]) EGFR IF NonAfrican >60.0 >60 mL/min 08-17-2019 [facility] ([address]) Comment: Source- MDRD equation with c reatinine calibration to IDMS(NKDEP) eGFR not recommended for nicolas g dose adjustment GFR/1.73 sq M >60.0 >60 mL/min mL/min/{1.73_m2} 08-17-19 20 [facility] predicted among [facility] [place], [place] MDRD [place] ([address]) (S/P/Bld) [Vol rate/Area] Glucose [Mass/Vol] 97 70 - 100 mg/dL 08-17-2019 [place] ([address]) Interpretation and Abnormal 08-17-2019 [facility] review of [facility] , laboratory results [place] ([address]) Potassium 4.3 3.5 - 5.1 mmol/L 08-17-2019 [facility] [Moles/Vol] [place] ([address]) Sodium [Moles/Vol] 136 135 - 145 mmol/L 08-17-2019 [place] ([address]) Urea nitrogen 26 7 - 20 mg/dL High 08-17-2019 [facility] [Mass/Vol] [place] ([address]) Test 08-17-2019 [facility] Performed by [facility] (457 88) [address] [address] Erythrocyte 13.8 11.5 - % 08-17-2019 [facility] distribution width [facility].5 [facility] (RBC) [Ratio] [place] (15 265) Hematocrit (Bld) 32.2 35 - 47 % Low 08-17-2019 [facility] [Volume fraction] [place] ([address]) Hemoglobin (Bld) 10.9 11.7 - 16 g/dL Low 08-17-2019 [facility] [Mass/Vol] [place] ([address]) Interpretation and Abnormal 08-17-2019 [facility] review of [facility] , laboratory results K Y ([address]) MCH (RBC) [Entitic 30.0 26 - 34 pg 08-17-2019 [facility] mass] [place] ([address]) MCHC (RBC) 33.8 32 - 36 % 08-17-2019 [facility] [Mass/Vol] [facility] [place] ([address]) MCV (RBC) [Entitic 88.6 79 - 98 fL 08-17-2019 [facility] vol] [place] ([address]) Platelet mean 8.0 7.4 - 10.4 fL 08-17-2019 [facility] volume (Bld) [facility], [Entitic vol] [place] (45 237) Platelets (Bld) 282 140 - 440 10*3/uL 08-17-2019 [facility] cy [#/Vol] [place] ([address]) RBC (Bld) [#/Vol] 3.63 3.8 - 5.2 10*6/uL Low 08-17-2019 [place] ([address]) WBC (Bld) [#/Vol] 8.5 3.6 - 10.7 10*3/uL 08-17-2019 [place] ([address]) Test 08-17-2019 [facility] Performed by [facility] (452 37) System, [address] [place] [address] ts gel on 6 TS GEL ABO Group: Normal 08-16-2019 [facility] [employer] System ([address]) B Rh, Gel: POS Antibody Screen Gel: NEG Comment: Performed By: #### TROPN ### # [facility] [address] [address] prothrombin time on 2019-08-16 INR Coag (PPP) [Relative 1.0 0.9-1.1 Normal 08-15 [facility] time] ([address]) Comment: Result Comment: Recommended Anticoagulant Therapy: SEE [...] Infarction Performed By: #### TROPN ### # [facility] [address] [place], [place] PT Coag (PPP) [Time] 10.4 9.0-12.0 s Normal 0 [facility] ([address]) Comment: Result Comment: . Performed By: #### TROPN ### # [place] [address] [address] [place] hemogram on 2019-08 Erythrocyte distribution 13.5 11.5-14.5 % Normal 08-15 [facility] width (RBC) [Ratio] (23941) Comment: Performed By: #### TROPN ### # [place] [address] [address] [place] Hematocrit (Bld) [Volume 32.4 35.0-47.0 % Low 08-15 [facility] System fraction] (459[address]) Comment: Performed By: #### TROPN ### # [place] [address] [address] [place], [place] Hemoglobin (Bld) [Mass/Vol] 10.9 11.7-16.0 g/dL Low [facility] (413[address]) Comment: Result Comment: repeated Performed By: #### TROPN ### # [place] [address] [address] [place], [place] MCH (RBC) [Entitic mass] 29.7 26.0-34.0 pg Normal 08-15 [facility] (745[address]) Comment: Performed By: #### TROPN ### # [place] [address] [address] [place] MCHC (RBC) [Mass/Vol] 33.5 32.0-36.0 % Normal 08-16-19 20 [facility] ([address]) Comment: Performed By: #### TROPN ### # [place] [address] [address] [place] MCV (RBC) [Entitic vol] 88.7 79.0-98.0 fL Normal 2019 [facility] ([address]) Comment: Performed By: #### TROPN ### # [facility] [address] [place], [place] Platelet mean volume (Bld) 8.7 7.4-10.4 fL Normal [facility] [Entitic vol] (09421 ) Comment: Performed By: #### TROPN ### # [facility] [address] [place], [place] Platelets (Bld) [#/Vol] 247 140-440 10*3/uL Normal 2019 [facility] (15224) Comment: Performed By: #### TROPN ### # [place] [address] [address] [place], [place] RBC (Bld) [#/Vol] 3.65 3.80-5.20 10*6/uL Low 08-16-2019 S [facility] ([address]) Comment: Performed By: #### TROPN ### # [place] [address] [address] [place], [place] WBC (Bld) [#/Vol] 9.0 3.6-10.7 10*3/uL Normal 08-16-2019 [facility] (98221) Comment: Performed By: #### TROPN ### # [place] [address] [address] [place], [place] basic metabolic panel on 2019-08-16 Calcium [Mass/Vol] 8.7 8.4-10.4 mg/dL Normal 08-16-2019 [facility] (06706) Comment: Performed By: #### TROPN ### # [facility] [address] [place], [place] Anion gap [Moles/Vol] 7 Normal 08-16-19 [facility] (395[address]) Comment: Performed By: #### TROPN ### # [facility] [address] [place], [place] CO2 [Moles/Vol] 25 22-30 mmol/L Normal 08-16-2019 [facility] (74637) Comment: Performed By: #### TROPN ### # [facility] System [address] [place] [address] Creatinine [Mass/Vol] 0.69 0.52-1.25 mg/dL Normal 08-16-19 20 [facility] (04576) Comment: Performed By: #### TROPN ### # [employer] [facility] [address] [place] [address] GFR/1.73 sq M > 60.0 >60 mL/min/{1.73_m2} Normal 0 [facility] predicted among Syst em ([address]) blacks MDRD (S/P/Bld) [Vol rate/Area] Comment: Performed By: #### TROPN ### # [facility] [address] [place], [place] GFR/1.73 sq M > 60.0 >60 mL/min/{1.73_m2} Normal 0 [facility] predicted among Syst em ([address]) non-blacks MDRD (S/P/Bld) [Vol rate/Area] Comment: Result Comment: Source- MDRD equation with creatinine calibration to IDMS(NKDEP) eGFR not recommended for nicolas g dose adjustment Performed By: #### TROPN ### # [facility] [place] [address] [address] [place], [place] Glucose [Mass/Vol] 96 70-100 mg/dL Normal 08-16-2019 [facility] (459[address]) Comment: Performed By: #### TROPN ### # [facility] System [address] [place], [place] Urea nitrogen [Mass/Vol] 22 7-20 mg/dL High 08-15 [facility] (40216) Comment: Performed By: #### TROPN ### # [facility] [address] [place], [place] Chloride [Moles/Vol] 104 98-107 mmol/L Normal 0 [facility] (63251) Comment: Performed By: #### TROPN ### # [facility] [address] [place], [place] Potassium [Moles/Vol] 3.8 3.5-5.1 mmol/L Normal 08-16-19 20 [facility] (57207) Comment: Performed By: #### TROPN ### # [facility] [address] [place] [address] Sodium [Moles/Vol] 136 135-145 mmol/L Normal 08-16-2019 [facility] (95630) Comment: Performed By: #### TROPN ### # [facility] [address] [place] [address] No panel information on 2019-08-16 Erythrocyte distribution 13.5 11.5 - 14.5 % [place] width (RBC) [Ratio] ([address]28) Hematocrit (Bld) [Volume 32.4 35 - 47 % Low 08-15 [place] fraction] ([address]) Hemoglobin (Bld) [Mass/Vol] 10.9 11.7 - 16 g/[place] ([address]) Comment: repeated Interpretation and Abnormal 08-16-2019 [facility] review [place] ([address]) results MCH (RBC) [Entitic 29.7 26 - 34 pg 08-16-2019 [facility]- mass] [place], [place] ([address]) MCHC (RBC) [Mass/Vol] 33.5 32 - 36 % 08-16-19 20 [place] ([address]) MCV (RBC) [Entitic 88.7 79 - 98 fL 08-16-2019 [facility]- vol] [place], [place] ([address]) Platelet mean volume 8.7 7.4 - 10.4 fL 08-16-[address] [place] [address]- (Bld) [Entitic vol] [place] ([address]) Platelets (Bld) 247 140 - 440 10*3/uL 08-16-2019 [facility]- [#/Vol] [place] ([address]) RBC (Bld) [#/Vol] 3.65 3.8 - 5.2 10*6/uL Low 08-16-2019 [place], [place] ([address]) WBC (Bld) [#/Vol] 9.0 3.6 - 10.7 10*3/uL 08-16-2019 [place] ([address]) Test Performed 08-16-2019 [facility] ([address]) System, [address] [place] [address] Sodium [Moles/Vol] NEG mmol/L 08-16-2019 [place], [place] (27 [address]) Comment: Test Performed by [facility] System, [address] [place] [address] Sodium [Moles/Vol] POS mmol/L 08-16-2019 [place] ([address]) Comment: Test Performed by [employer] System, [address] [place] [address] Sodium [Moles/Vol] B 08-16-2019 [place], [place] (87 [address]) Test Performed by 08-16-2019 [facility] [place] ([address]) System, [address] [place] [address] Anion gap 7 mmol/L 08-16-2019 [facility]- [Moles/Vol] [place] ( [address]) Calcium [Mass/Vol] 8.7 8.4 - 10.4 mg/dL 08-16-2019 [place] (88 9[address]) Chloride [Moles/Vol] 104 98 - 107 mmol/L 0 [place] (85 [address]) CO2 [Moles/Vol] 25 22 - 30 mmol/L 08-16-2019 [place] (16 [address]) Creatinine 0.69 0.52 - 1.25 mg/dL 08-16-2019 [facility] [Mass/Vol] [place], [place] (4 5[address]) EGFR IF NonAfrican >60.0 >60 mL/min 08-16-2019 [place], [place] ([address]) Comment: Source- MDRD equation with c reatinine calibration to IDMS(NKDEP) eGFR not recommended for nicolas g dose adjustment GFR/1.73 sq M >60.0 >60 mL/min mL/min/{1.73_m2} 08-16-19 20 [facility] MDRD [place] (35[address] 7) (S/P/Bld) [Vol rate/Area] Glucose [Mass/Vol] 96 70 - 100 mg/dL 08-16-2019 [place] ([address]) Interpretation and Abnormal 08-16-2019 [facility] review of [facility] , laboratory results K Y ([address]) Potassium 3.8 3.5 - 5.1 mmol/L 08-16-2019 [facility] [Moles/Vol] [place] ([address]) Sodium [Moles/Vol] 136 135 - 145 mmol/L 08-16-2019 [place] ([address]) Urea nitrogen 22 7 - 20 mg/dL High 08-16-2019 [facility] [Mass/Vol] [facility] [place] ([address]) Test 08-16-2019 [facility] Performed by [facility] (448 62) System, [facility] [place] [address] INR Coag (PPP) 1.0 OTH - OTH {INR} 08-16-2019 [facility] [place] [facility] y [Relative time] [place] ([address]) Comment: Recommended Anticoagulant erapy: SEE BELOW ----- [...] [Time] 10.4 9 - 12 s 0 [place] ([address]) Comment: . Test Performed by [facility] 08-16-2019 [place] ([address]) System, [facility] [place] [address] cta low ext w/ + w/o contrast left on 2019-08-15 CTA Low Ext w/ Patient Name: DENYS ARRIOLA Normal 08-15-2019 [facility] + w/o Contrast S ystem Left (0 0000) CT Exam Date/Time 08/15/2019 12:00:13 EST Exam CTA Low Ext w/ + w/o Contrast Left Ordering Physician MD DOUG FABIO Accession Number [id number] CPT4 Codes 28450 (), Q9967 (CT ISOVUE 370MG/[id number]) Reason For Exam Evaluate LLE free flap [...] CR Chest Portable Patient Name: DENYS ARRIOLA [facility] 08-15-2019 [facility] ([address] ) Diagnostic Radiology Exam Date/Time 08/15/2019 18:00:56 EST Exam CR Chest Portable Ordering Physician LOUISA COATES Accession Number [id number] CPT4 Codes 61393 () Reason For Exam line placement Report [...] 08/15/2019 9:31 No panel information on 2019-08-15 [facility] Incoming Radiology Results From [facility] - 2019 9:34 PM EST 08-15-2019 [place] ([address]) Patient Name: DENYS ARRIOLA ---Diagnostic Radiology--- Exam Date/Time 08/15/2019 18:00:56 EST Exam CR Chest Portable Ordering Physician LOUISA COATES Accession Number [id number] CPT4 Codes 05262 () Reason For Exam line placement Report [...] Time: 08/15/2019 9:31 Patient Name: [place] [address] [id number] ---Diagnostic Radiology--- Exam Date/Time 08/15/2019 18:00:56 EST Exam CR Chest Portable Ordering Physician LOUISA COATES Accession Number [id number] CPT4 Codes 46620 () Reason For Exam line placement Report [...] Time: 08/15/2019 9:31 Patient Name: [place] [id number] ---CT--- Exam Date/Time 08/15/2019 12:00:13 EST Exam CTA Low Ext w/ + w/o Contrast Left Ordering Physician MD CAMACHO ZACHARY Accession Number [id number] CPT4 Codes 17330 (), Q9967 (CT ISOVUE 370MG/[id number]) Reason For Exam Evaluate LLE free flap [...] 9:02 [facility] Incoming Rad[facility] Results From [facility] - 2019 9:10 PM EST 08-15-2019 [place] ([address]) Patient Name: DENYS ARRIOLA ---CT--- Exam Date/Time 08/15/2019 12:00:13 EST Exam CTA Low Ext w/ + w/o Contrast Left Ordering Physician MD DOUG, FABIO Accession Number [id number] CPT4 Codes 15257 (), Q9967 (CT ISOVUE 370MG/[id number]&[id number]) Reason For Exam Evaluate LLE free flap [...] JEFFREY Transcribed Date and Time: 08/15/2019 9:02 [facility] 08-15-2019 [place] ([address]) Health System Test Date: 2019-08-14 Pat Name: Denys Arriola Department: 1A6 Room: 10 Gender: F 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1985 Requested By: DENO DAVILA Order Number: [id number] Reading MD: Maco Sepulveda Measurements Intervals [place] Rate: 78 P: 57 MS: 150 QRS: 85 QRSD: 81 T: 67 QT: 356 QTc: 406 Interpretive Statements Sinus rhythm Electronically Signed On 08-15-2019 17:41:04 EST by Maco Sepulveda [facility] Incoming Cardiolo gy Results From [facility] - 08/15/2019 5:42 PM EST [facility] 08-15-2019 [place] ([address]) Test Date: 2019-08-14 Pat Name: Denys Arriola Department: 1A6 Room: 6110 Gender: F 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 Performed By: #### TROPN ### # [address] [address] op note on Op Note PATIENT: DENYS ARRIOLA Normal 2019 [facility] ([id number]) ADMISSION DATE: 08/14/2019 SURGERY DATE: 08/14/2019 DATE [...] of March and had ORIF by a pitch worker at outside ED. She repo rts that [...] was then closed using 3-0 nylon with Dpjdfyxz-Rtlidk-qqia sutures to repair the wound bed back [...] c ondition without complication. [employer] Job ID: [id number] Deon Davila MD DOD:08/14/2019 03:13 P EM/marcelo DOT:08/14/2019 04:40 P Job Number: [id number] Document Number: [id number] cc: Deon Davila MD [address] [place] [address] [place] [address] hemoglobin and hematocrit on 2019-08-14 Hematocrit (Bld) [Volume 38.2 35.0-47.0 % Normal 08-13 [facility] fraction] (09918) Comment: Performed By: #### HGHCT ### # [place] [address] [place] [address] Hemoglobin (Bld) 13.3 11.7-16.0 g/dL Normal 08-14-2019 [facility] [Mass/Vol] (34525) Comment: Performed By: #### HGHCT ### # [facility] [address] [place] [address] No panel information on 2019-08-14 Troponin I.cardiac <0.012 0 - 0.034 ng/mL 08-14-2019 [facility] [Mass/Vol] ([address]) Comment: . Test Performed by 08-14-2019 [facility], [facility] [place] (452 [address]) System, [address] [place] [address] Hematocrit (Bld) 38.2 35 - 47 % 08-14-2019 [facility], [Volume fraction] [place] ([address]) Hemoglobin (Bld) 13.3 11.7 - 16 g/dL 08-14-2019 [facility], [Mass/Vol] [place] ([address] ) Test Performed by 08-14-2019 [facility], [facility] [place] (452 37) System, [facility] [place] [address] cnco on 2019-08-06 [facility] Letter Text Normal 08-06-2019 [facility] (220[address]) bact/cand vag grm st on 2019-07-09 Bact/Cand Vag Grm Sp. Request/Comment: - Swab Norm al 07-09-2019 [facility] [place] ([address]) Smear Result - BACTERIAL VAG INOSIS RESULT: Stain results indicate mixed morphotypes consistent with transition from normal vaginal fausto. No Yeast observed Rare Polymorphonuclear leukocytes Comment: Performed By: #### BVCNSM ## ## [facility] s [address] [place] [address] progress on 2019-06 PROGRESS HNO ID: [id number] Normal 07-08-2019 [facility] Author: Whit Hassan Bennett ([id number]) Service: ? Author Type: Physician Type: Progress [...] times daily as needed for Cough. - Hfkpbbjpworjkii-Sfvvzqyvw-WU (BROMFED DM) 2-30-10 mg/5 mL syrup Take [...] non-hi rsute PELVIC: normal Bartholin's glands, urethra, Tieton's glands, no cervical lesions, good vaginal support, [...] 2019-07-08 CNOV Office Visit (WOOB) Normal 07-08-[address] [facility] FLAKODENYS Bernal ([id number]) 1985 [facility] Date Time Provider Department ([address]) 07/08/19 3:20 PM WHIT VIVEROS WOOB During [...] non-hi rsute PELVIC: normal Bartholin's glands, urethra, Tieton's glands, no cervical lesions, good vaginal support, [...] BACT/SHUN VAG GRAM STAIN [SQBVCNSM] Order #: [id number] F UTURE Prescriptions as of 07/08/2019 Sig: [...] BMI (Body Mass Index) 26.63 kg/m2 12-11-2019 [facility] ([address]) BMI (Body Mass Index) 23.49 kg/m2 11-15-2019 [facility] [place] ([address]) BMI (Body Mass Index) 23.49 kg/m2 11-12-2019 [facility] ([address]) BMI (Body Mass Index) 23.49 kg/m2 09-27-2019 [facility] ([address]) BMI (Body Mass Index) 23.49 kg/m2 08-14-2019 [facility] ([address]) Body Temperature 97 [degF] 01-09-2020 [facility] ([address]) Body Temperature 98.2 [degF] 12-11-2019 [facility] ([address]) Body Temperature 97.7 [degF] 11-18-2019 [facility] ([address]) Body Temperature 98.1 [degF] 11-12-2019 [facility] ([address]) Body Temperature 98.91 [degF] 09-28-2019 [facility] ([address]) Body weight 77.11 kg 12-11-2019 [facility] [place] ([address]) Body weight 68.04 kg 11-15-2019 [facility] [place] ([address]) Body weight 68.04 kg 11-12-2019 [facility] ([address]) Body weight 68.04 kg 09-27-2019 [facility] [place] ([address]) Body weight 68.04 kg 08-14-2019 [facility] [place] ([address]) BP Diastolic 70 mm[Hg] [facility]-09-2020 [facility] [place] ([address]) BP Diastolic 74 mm[Hg] 12-11-2019 [place] ([address]) BP Diastolic 84 mm[Hg] 11-18-2019 [place] ([address]) BP Diastolic 84 mm[Hg] 11-12-2019 [place] ([address]) BP Diastolic 66 mm[Hg] 09-28-2019 [place] ([address]) BP Systolic 112 mm[Hg] 01-09-2020 [place] ([address]) BP Systolic 115 mm[Hg] 12-11-2019 [place] ([address]) BP Systolic 106 mm[Hg] 11-18-2019 [place] ([address]) BP Systolic 113 mm[Hg] 11-12-2019 [place] ([address]) BP Systolic 112 mm[Hg] 09-28-2019 [place] ([address]) Height 170.2 cm 12-11-2019 [place] ([address]) Height 170.2 cm 11-15-2019 [place] ([address]) Height 170.2 cm 11-12-2019 [place] ([address]) Height 170.2 cm 09-27-2019 [place] ([address]) Height 170.2 cm 08-18-2019 [place] ([address]) Pulse (Heart Rate) 64 /min 01-09-2020 [place] ([address]) Pulse (Heart Rate) 73 /min 12-11-2019 [place] ([address]) Pulse (Heart Rate) 98 /min 11-18-2019 [place] ([address]) Pulse (Heart Rate) 95 /min 11-12-2019 [place] ([address]) Pulse (Heart Rate) 99 /min 09-28-2019 [place] ([address]) Pulse Oximetry 99 % 01-09-2020 [place] ([address]) Pulse Oximetry 100 % 12-11-2019 [place] ([address]) Pulse Oximetry 97 % 11-18-2019 [place] ([address]) Pulse Oximetry 96 % 11-12-2019 [place] ([address]) Pulse Oximetry 96 % 09-28-2019 [place] ([address]) Respiratory Rate 18 /min 01-09-2020 [facility] ([address]) Respiratory Rate 20 /min 12-11-2019 [facility] ([address]) Respiratory Rate 16 /min 11-18-2019 [facility] ([address]) Respiratory Rate 15 /min 09-28-2019 [facility] ([address]) Respiratory Rate 20 /min 08-28-2019 [place] ([address]) Encounters Date Type Reason Provider Location 10-26-2017 [facility] Dim[place] UGALDEJASMIN Facility:[facility] 11-15-2019 - Evaluation and Closed [...] Name Date Provider Location OPERATIVE REPORT 12-11-[address] [place] [address], [place] ([address]) Drug screen quantitative 11-17-2019 [facility] [place] [facility] [place] vancomycin ([address]) BASIC METABOLIC PANEL W/ 11-16-2019 Steven [facility]son [facility] [place] [facility] [place] REFLEX TO MG FOR LOW K (75055) Blood count complete 11-16-2019 Steven [facility]son [facility] [place] [facility] automated ([address]) OPERATIVE REPORT 11-15-[address] [place] [address], [place] ([address]) Cul prsmptv pthgnc 11-15-2019 Deon Davila [place], [place] organism scrn w/colony (32132) estimj COVID-19 11-12-2019 Shanelle cMgill [place], [place] ([address]) Blood count hemoglobin 11-12-2019 Shanelle Mcgill [facility], [place] ([address]) Blood typing serologic 11-12-2019 Shanelle Mcgill [place] abo ([address]) OPERATIVE REPORT 09-27-[address] [place] [address], [place] ([address]) Basic metabolic panel 08-28-2019 Everton Cha [place] calcium total (26192) Blood count complete 08-28-2019 Everton Cha [place], [place] auto&auto difrntl wbc (85790) Basic metabolic panel 08-27-2019 Everton Cha [place] calcium total (46706) Blood count complete 08-27-2019 Everton Cha [place] auto&auto difrntl wbc (04622) Drug screen quantitative 08-26-2019 Victor Manuel Le [place] vancomycin ([address]) Basic metabolic panel 08-26-2019 Everton [place], [place] calcium total ([address]39) Blood count complete 08-26-2019 Everton Cha [place] auto&auto difrntl wbc (11464) Basic metabolic panel 08-25-2019 Everton Cha [place] calcium total (73290) Blood count complete 08-25-2019 Everton Maldonado [place] auto&auto difrntl wbc (08062) Basic metabolic panel 08-24-2019 Everton Cha [place] calcium total (99725) Blood count complete 08-24-2019 Everton Cha [place], [place] auto&auto difrntl wbc (16370) Drug screen quantitative 08-23-2019 Everton Corb[place] vancomycin (21420) OPERATIVE REPORT 08-23-2019 Scanning [facility] [place] ([address]) Blood count complete 08-23-2019 Everton Cha [place] auto&auto difrntl wbc (65682) Blood typing serologic 08-22-2019 Petar Nuno [place] abo ([address]) Drug screen quantitative 08-22-2019 Victor Manuel [place] vancomycin ([address]196) Blood count complete 08-22-2019 Everton Cha [place] auto&auto difrntl wbc (54803) Blood count complete 08-21-2019 Everton Cha [place] auto&auto difrntl wbc (92163) Drug screen quantitative 08-20-2019 Everton Corbett [place] vancomycin ([address]17) Assay of magnesium 08-20-2019 [place], [place] ([address]) Basic metabolic panel 08-20-2019 [place] calcium total (60294) Blood count complete 08-20-2019 Everton Cha [place], [place] auto&auto difrntl wbc (64518) Blood typing serologic 08-19-2019 Jesse Burnham [place] abo ([address]) Assay of magnesium 08-19-2019 [place], [place] ([address]) Basic metabolic panel 08-19-2019 [place] calcium total (36863) Blood count complete 08-19-2019 Everton Cha [place] auto&auto difrntl wbc (32309) Blood count hemoglobin 08-18-2019 Jesse R Boris [place] ([address]) Assay of magnesium 08-18-2019 Valencia O[place], [place] ([address]) Basic metabolic panel 08-18-2019 Valencia Oakes [facility] [place] [facility] [place] calcium total (77[address]) Blood count complete 08-18-2019 Everton Cha [place] auto&auto difrntl wbc (55883) TRANSFUSE PLATELETS 08-18-2019 [place] ([address]) TRANSFUSE FRESH FROZEN 08-18-2019 - [place] Joel Cha [place] PLASMA 08-18-2019 (70963) TRANSFUSE RED BLOOD CELLS 08-18-2019 - Evertonfabricio Cha [place], [place] 08-18-2019 (31152) Blood count hemoglobin 08-17-2019 [place], [place] ([address]) Radex ankle complete 08-17-2019 Steven Mckeonlaurijudah [place] minimum 3 views (70165) Assay of magnesium 08-17-2019 Alberto [place], [place] ([address]) Blood count complete 08-17-2019 Alberto [place] auto&auto difrntl wbc (99554) Renal function panel 08-17-2019 Alberto [place] ([address]) Radiologic examination 08-17-2019 Jesse R Boris [facility] [place] [facility] [place] tibia & fibula 2 views (26451) Radiologic examination 08-17-2019 Jesse R Boris [facility] [place] [facility] magda [place], [place] femur 1 view (71524) Basic metabolic panel 08-17-2019 Fabio Magda [place] calcium total (09657) Blood count complete 08-17-2019 Fabio Man [place] automated ([address]) Drug screen quantitative 08-17-2019 Dat Tiradowe [place] vancomycin (86863) Basic metabolic panel 08-16-2019 Fabio A [place] calcium total (07770) Blood count complete 08-16-2019 [place] automated (17867) Blood typing serologic 08-16-2019 - [place] Mag[place] abo 08-16-2019 Everton Cha (26158) PREPARE FRESH FROZEN 08-16-2019 Everton Cha [place] PLASMA (83292) PREPARE PLATELETS 08-16-2019 [place] ([address]) Prothrombin time 08-16-2019 [place], [place] ([address]) Radiologic exam chest 08-15-2019 Louisaalisia Coates [place], [place] single view (39195) Ct angiography lower 08-15-2019 [place], [place] extremity ([address]) Assay of troponin 08-14-2019 Petar Nuno [place] quantitative ([address]) Ecg routine ecg w/least 08-14-2019 Deon Alan Yovanny [place] 12 lds w/i&r (36628) Cul bact xcpt urine 08-14-2019 - Deon T [place] blood/stool aerobic isol 08-14-2019 (84544) Culture bacterial any 08-14-2019 - Deon T [place] source anaerobic iso&id 08-14-2019 (47739) Blood count hemoglobin 08-14-2019 Ed[place] ([address]) Plan of Treatment Plan Description Date Location Shingles Vaccine (1 of Shingles Vaccine (1 of 2034 [place], [place] 2) 2) (52264) Breast cancer screen Breast cancer screen 2024 [place], [place] 2024 ([address]) Breast cancer screen Breast cancer screen 2024 [place], [place] 2024 ([address]) DTaP/Tdap/Td vaccine (2 DTaP/Tdap/Td vaccine (2 06-12-2022 [place] - Td) - Td) 06-12-2022 (93657) Flu vaccine (Season no information 02-11-[address] - [facility] [place] Ended) 02-11-2020 (44329) Nurse Only no information 01-21-2020 - [facility] Med ical 01-21-2020 Group Orthopedic s and Sports Medicine [place] Office Visit 12/19/2019 Office Visit 12-19-2019 - Infect D isease - [place] Infectious Diseases 12-19-2019 Mame Stallings MD [address] [place] [address], [address] [place], [place] [id number] Office Visit 12/17/2019 Office Visit 12-17-2019 - [facility] Group O rthopedics and LAKESHIA [place] 1 [facility] [place] [address] [facility] [id number] Office Visit 12/03/2019 Office Visit 12-03-2019 - [facility] alth Medical Orthopedic Surgery 12-03-2019 Group Orthope dics and Deon Davila MD 1 Sports Medi cine [facility] [address] [place], [place] [id number] Office Visit 11/26/2019 Office Visit 11-26-2019 - [facility] alth Medical Orthopedic Surgery 11-26-2019 Group Orthope dics and BorisJesse MD 1 Sports Med [facility] [address] [place], [place] [address] Office Visit 11/21/2019 Office Visit 11-21-2019 - [facility] alth Medical Orthopedic Surgery 11-21-2019 Group Orthope dics and BorisJesse MD 1 Sports Med [facility] [address] [place], [place] [address] Appointment 11/15/2019 Appointment 11-15-2019 - [facility] al Surgery General Surgery Yovanny 11-15-2019 Deon Garcia MD 1 [facility] [place] [address] [place] [address] [phone] Boris, Jesse Shetty MD 1 [facility] [place], [facility] [address] [place] [address] [phone] Office Visit 10/03/2019 Office Visit 10-03-2019 - Kobi carroll [facility] Orthopedic Surgery 10-03-2019 Group Orthope dics and BorisJesse MD 1 Sports Med icine [facility] [address] [place] [address] [phone] Office Visit 09/26/2019 Office Visit 09-26-2019 - Infect D [facility] Infectious Diseases 09-26-2019 Mame Stallings MD [address] [place] [address] Street, [address] [place], [place] [id number] Flu vaccine (#1) Flu vaccine (#1) 02-10-2019 [place], [place] ([address]) HIV screen HIV screen 12-29-1999 - [place], [place] 12-29-1999 (76360) HIV screen HIV screen 12-29-1999 - [place] 12-29-1999 (25902) Varicella vaccine (1 of Varicella vaccine (1 of 1985 - [place] 2 - 2-dose childhood 2 - 2-dose childhood 1985 (34388 ) series) series) Basic Metabolic Panel Basic Metabolic Panel [place] Lab Routine Daily until (88814) discontinued starting 08/25/2019, 4 completed Comment: Daily until discontinued sta rting 08/25/2019, 4 completed Blood glucose - POCT Blood glucose - POCT Point of 01-09-2020 [place], [place] Care Testing STAT One Time (4523 7) for 1 Occurrences starting 01/09/2020 until 01/09/2020 Comment: One Time for 1 Occurrences s tarting 01/09/2020 until 01/09/2020 CBC Auto Differential CBC Auto [place] ([address]) Daily until discontinued starting 08/18/2019, 11 completed Comment: Daily until discontinued sta rting 08/18/2019, 11 completed Creatinine, serum Creatinine, serum Lab STAT One 01-09-2020 [facility] [employer] [place] Time for 1 Occurrences (72393) starting 01/09/2020 until 01/09/2020 Comment: One Time for 1 Occurrences s tarting 01/09/2020 until 01/09/2020 Culture, Anaerobic and Culture, [facility]erobic [facility] [place] Aerobic Aerobic Microbiology (20879) Routine 11/15/2019 8:20 AM EDT [place] Greater Than 1 Hour [place] Greater Than 1 Hour 08-14-2019 [facility], [place] Imaging Routine Once for 1 (4523 7) Occurrences starting 08/14/2019 until 08/14/2019 Comment: Once for 1 Occurrences start ing 08/14/2019 until 08/14/2019 [place] Greater Than 1 Hour no information [facility] [place] [place] ([address]) [place] Greater Than 1 Hour [place] Greater Than 1 Hour 11-15-2019 [facility] [employer] [place], [facility] [facility] Imaging Routine Once for 1 (4523 7) Occurrences starting 11/15/2019 until 11/15/2019 Comment: Once for 1 Occurrences start ing 11/15/2019 until 11/15/2019 FL Greater Than 1 Hour [place] Greater Than 1 Hour 08-23-2019 [facility], [facility] Imaging Routine Once for 1 (4523 7) Occurrences starting 08/23/2019 until 08/23/2019 Comment: Once for 1 Occurrences start ing 08/23/2019 until 08/23/2019 FL Greater Than 1 Hour [place] Greater Than 1 Hour 01-09-2020 [facility], [facility] Imaging Routine Once for 1 (4523 7) Occurrences starting 01/09/2020 until 01/09/2020 Comment: Once for 1 Occurrences start ing 01/09/2020 until 01/09/2020 HHN Treatment HHN Treatment [facility] [place] (48926) 0600, 1000, 1400, 1800, 2200 until discontinued starting 08/17/2019 Comment: 0600, 1000, 1400, 1800, 2200 until discontinued starting 08/17/2019 Incentive spirometry no information [place] [facility] ([address]) Comment: Every 2hr while awake until discontinued starting 09/27/2019 Every 2hr while awake until discontinued starting 08/15/2019 Q1H PRN until discontinued s tarting 12/11/2019 Q1H PRN until discontinued s tarting 01/09/2020 Initiate Oxygen Therapy Protocol [place] ([address]) Comment: Daily until discontinued sta rting 09/27/2019 Daily until discontinued sta rting 08/14/2019 Daily until discontinued sta rting 11/15/2019 Daily until discontinued sta rting 12/11/2019 Pulse Oximetry Spot Pulse Oximetry Spot Check 01-09-2020 [place] Check Respiratory Care Routine (97317) One Time for 1 Occurrences starting 01/09/2020 until 01/09/2020 Comment: One Time for 1 Occurrences s tarting 01/09/2020 until 01/09/2020 Initiate Oxygen Therapy Initiate Oxygen Therapy [place], [place] Protocol Protocol Respiratory Care (34729 ) Routine Daily until discontinued starting 01/09/2020 Comment: Daily until discontinued sta rting 01/09/2020 Phase I & II - metered [place] ([address]) Comment: As Needed until discontinued starting 12/11/2019 As Needed until discontinued starting 01/09/2020 Potassium w/ Reflex to Potassium w/ Reflex to 01-09-2020 [place] Magnesium Magnesium Lab Routine One (55031 ) Time for 1 Occurrences starting 01/09/2020 until 01/09/2020 Comment: One Time for 1 Occurrences s tarting 01/09/2020 until 01/09/2020 , urine , urine Lab STAT One 01-09-2020 [place] Time for 1 Occurrences starting (40428) 01/09/2020 until 01/09/2020 Comment: One Time for 1 Occurrences s tarting 01/09/2020 until 01/09/2020 Protime-INR Protime-INR Lab STAT One Time for 01-09-2020 [place] ([address]) 1 Occurrences starting 01/09/2020 until 01/09/2020 Comment: One Time for 1 Occurrences s tarting 01/09/2020 until 01/09/2020 Pulse Oximetry Spot Pulse Oximetry Spot Check 12-11-2019 [place] Check Respiratory Care Routine (17344) One Time for 1 Occurrences starting 12/11/2019 until 12/11/2019 Comment: One Time for 1 Occurrences s tarting 12/11/2019 until 12/11/2019 Tissue Homogenization Tissue Homogenization Lab 08-14-2019 [place] Routine Once for 1 Occurrences ( 70874) starting 08/14/2019 until 08/14/2019 Comment: Once for 1 Occurrences start ing 08/14/2019 until 08/14/2019 Tissue Homogenization Tissue Homogenization Lab Routine [place] 08/14/2019 8:15 AM EST (61960) Immunizations Vaccine Notes Status Date Location Influenza Vaccine, Influenza Vaccine, (completed) 03-31-2016 - [facility], unspecified unspecified 03-31-2016 [place] ([address]683) formulation formulation Influenza Virus influenza virus (completed) 03-28-2017 - [facility], Vaccine vaccine, unspecified 03-28-2017 [place] (452 37) formulation Tdap (Boostrix, tetanus toxoid, (completed) 06-12-2012 - [facility], Adacel) reduced diphtheria 06-12-2012 [place] (50295 ) toxoid, and acellular pertussis vaccine, adsorbed Payers Payer Name Policy Number Location [employer] x[place] ([address]) [facility] [id number] [place] ([address]) [facility] [id number] [facility] ([id number]) The following information is from the original human readable contentNo Payer Records FoundNo Payer Records FoundNo Payer Records FoundNo Payer Records FoundNo Payer Records Found Social History Type Social History Date Location Description Tobacco smoking status Never smoker 09-27-2019 - [place] NHIS 01-07-2020 (68508) Alcohol intake Current non-drinker of 09-27-2019 - [place] alcohol (finding) 01-07-2020 (45966) Alcohol Comment occasional 06-14-2016 - [place] 06-14-2016 (56946) Sex Assigned At [place] on file [place] ([address]) Exposure to SARS-CoV-2 Unable to assess [place] (event) (47[address]) Tobacco use and Never used 01-07-2020 [place] exposure ([address]) Exposure to SARS-CoV-2 Not sure [place] (event) ([address]) The following information is from the original [...] Documents on File Type Date Recorded Patient Cosmetic Chemist Explanati on Advance Directives and Living Will Power of Pet Care Associate Latest Code Status on File Code Status [...] Your home care will be provided by: [facility] Infusion and Nurse [phone] Additional InstructionsSamuel Hagen MD - 08/14/2019Please cleanse the flap area and pin sites twice daily as we have been doing in the hospital - applythe adaptec, kerlex wrap twice daily. 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 Your home care will be provided by: [facility] [phone] Infusion Company: [facility] [phone] Additional InstructionsDaSteven andre MD - 11/15/2019General Orthopedic [...] put any weight on LEFT leg Take Cross River as needed for pain control Contact your [...] control. You may also take the prescribed Cross River and ibuprofen for relief of pain and [...] 10x5 cm -Gen diet -Pain control with Cross River -Infectious disease consult re: Vancomycin IV that [...] PGY-7 Plastic & Reconstructive Surgery Fellow Pager #[phone] Gogo Alvarez RN - 09/27/2019 2:30 PM [...] Melo DO - 08/27/2019 8:31 AM EDT [facility] - Infectious Diseases Attending Progress [...] cultures: Corynebacterium striatum vanc 0.50 Culture, Tissue [[id number]] (Abnormal) Collected: 08/14/19 0815 Order Status: Completed [...] Will sign-off please call with questions Pager: [phone] Annabel Hernandez, MS, RD, LD - 08/26/2019 [...] Nutrient Needs: ? Estimated Daily Total Kcal: 7334-8007 ? Estimated Daily Protein (g): 95-102 ? [...] Body Wt: 146 lb (66.2 kg) ? [place] Body Wt: 135 lb (61.2 kg), % [place] Body 111% ? BMI Classification: BMI 18.5 - 24.9 Normal Weight Nutrition Interventions: Continue current diet Continued Inpatient Monitoring Nutrition Evaluation: ? Evaluation: Progressing toward goals ? Goals: Pt will consume ONS and >80% estimated protein needs daily ? Monitoring: Meal Intake, Diet Tolerance, Skin Integrity, Wound Healing, I&O, Pertinent Labs, Monitor Bowel Function Contact Number: pager [phone] Jesse Burnham MD - 08/26/2019 9:21 AM [...] Date 08/26/19 0000 - 08/26/19 2359 Shift 5402-6986 2393-8279 2317-4792 24 Hour Total INTAKE P.O.(mL/kg/hr) 500(0.9) 500 [...] -2 Department of General Surgery Personal Pager #[phone] Attending note inpendently seen and evaluated Flap [...] Meloony K - 08/26/2019 8:55 AM EDT [facility] Group - Infectious Diseases Attending [...] cultures: Corynebacterium striatum vanc 0.50 Culture, Tissue [[id number]] (Abnormal) Collected: 08/14/19 0815 Order Status: Completed [...] progress 4. Check level in morning Pager: [phone] Petar gross MD - 08/26/2019 3:40 AM EDT [place] [address] MED SUR[address] [place] [address] Dept: [phone] Loc: [phone] Adult Orthopaedic Service Patient Name: Denys Arriola [...] flap checks. Vioptix through Monday. Call MD forest fire control officer if Vioptix <46%, flap turns dusky or [...] PGY-7 Plastic & Reconstructive Surgery Fellow Pager #[phone] Attending note: Seen examined and evaluated with [...] Lewis MD - 08/25/2019 6:31 AM EDT [facility] H5 MED SURG [address] [id number] Dept: [phone] Loc: [phone] Adult Orthopaedic Service Patient Name: Denys Arriola [...] HLIV. -Q4H flap checks. Vioptix. Call MD forest fire control officer if Vioptix <58%, flap turns dusky or purple or there is loss of arterial signal. -OK for up with assistance to bedside commode -Pain control -H/o osteoarthritis. Continue Vancomycin -ASA, Lovenox -TTF -Will start dangle protocol tomorrow Michelle Cabrera MD PGY-7 Plastic & Reconstructive Surgery Fellow Pager #[phone] Attending note: Seen and independently evaluated NWB Ok for commode with assist Transfer to floor Q4 flap checks Daily dressing changes with adaptic gauze and kerlix Vioptix thru Monday Will start dangle tomorrow 5 min TID Am CBC Reg diet Jesse Burnham tephen Lewis MD - 08/24/2019 7:35 AM EDT [facility] ICU T2 [address] [address] Dept: [phone] Loc: [phone] Adult Orthopaedic Service Patient Name: Denys Arriola [...] 08/16 PLAN: Neuro/Spine: - tylenol scheduled - Cross River -dilaudid prn breakthrough - home prozac - [...] for diet by primary service. Luz tart Cross River, d/c scheduled acetaminophen, reschedule IV narcotics for [...] IVF -Q1H flap checks. Vioptix. Call MD forest fire control officer if Vioptix <58%, flap turns dusky or purple or there is loss of arterial signal. -Pain control -H/o osteoarthritis. Continue Vancomycin -ASA, Lovenox Michelle Cabrera MD PGY-7 Plastic & Reconstructive Surgery Fellow Pager #[phone] Everton Ugalde MD - 08/23/2019 7:35 PM [...] Date 08/23/19 0000 - 08/23/19 2359 Shift [id number] 5382-9926 9466-1231 24 Hour Total INTAKE P.O.(mL/kg/hr) 500(0.9) 500 [...] 08/16 PLAN: Neuro/Spine: - tylenol scheduled - Cross River -dilaudid prn breakthrough - home prozac HEENT: [...] states pain is tolerable. Pt transported to [id number] signed by Marilyn Ferreira RN at 08/23/2019 [...] Melo DO - 08/23/2019 2:03 PM EDT [facility] - Infectious Diseases Attending Progress [...] cultures: Corynebacterium striatum vanc 0.50 Culture, Tissue [[id number]] (Abnormal) Collected: 08/14/19 0815 Order Status: Completed [...] vancomycin dose adequate 2. Continue care Pager: [phone] Rachel pink RN - 08/23/2019 1:42 PM [...] combined flap debulking with Dr. Burnham and pawnee spatial frame ex-fix with ortho -NPO, updated type and screen complete -Continue ABx per ID, on vanc -Continue daily ASA -Lovenox PPx -Multimodal pain control -Continue bedrest -PT/OT -Keep left leg elevated -Continue alex hugger to left leg -Discussed with Dr. Boris Camacho M.D. PGY-1 [phone] Attending note: Revision & inset flap today, CBC reviewed, HGB stable Plan for inset versus STSG WB status as per ortho/Dr Davila I had an extensive discussion with . Denys Arriola and any family members present regarding the natural history, etiology, and termite technician consequences of her condition. I have [...] Ly MD - 08/23/2019 6:36 AM EDT [place] [address] [address] [place] [address] Dept: [phone] Loc: [phone] Adult Orthopaedic Service Patient Name: Denys Arriola [...] debulking on 08/22 per plastics, will place [facility] frame today with combined procedure. -Ice/elevate -PT/OT -Leave splint clean, dry, and intact -Continue home medication -Pain control and medical management per plastic surgery -DVT PPx per primary team. -NPO -Added -Consented Victor Manuel Melo DO - 08/22/2019 8:57 AM EDT [facility] - Infectious Diseases Attending Progress [...] cultures: Corynebacterium striatum vanc 0.50 Culture, Tissue [[id number]] (Abnormal) Collected: 08/14/19 0815 Order Status: Completed [...] 3. PRS and Ortho on case Pager: [phone] Fabio Camacho MD - 08/22/2019 6:32 AM [...] -Discussed with Dr. Boris Camacho M.D. PGY-1 [phone] German Torrez MD - 08/22/2019 5:58 AM EDT [place] [address] MED SURG [address] [facility] [address] Dept: [phone] Loc: [phone] Adult Orthopaedic Service Patient Name: Denys Arriola [...] for flap debulking on 08/22 per plastics, [facility] frame likely Monday -Ice/elevate -PT/OT -Leave splint [...] Nutrient Needs: ? Estimated Daily Total Kcal: 6042-7490 ? Estimated Daily Protein (g): 95-102 ? [...] Body Wt: 146 lb (66.2 kg) ? [place] Body Wt: 135 lb (61.2 kg), % [place] Body 111% ? BMI Classification: BMI 18.5 [...] Constipation, Monitor Bowel Function Contact Number: pager [phone] Mimi Victor Manuel DO Eliana - 08/21/2019 8:56 AM EDT [facility] - Infectious Diseases Attending Progress [...] cultures: Corynebacterium striatum vanc 0.50 Culture, Tissue [[id number]] (Abnormal) Collected: 08/14/19 0815 Order Status: Completed [...] vancomycin 2. Check level in morning Pager: [phone] Luna gold OT - 08/21/2019 8:08 AM EDTOccupational Therapy Attempted OT eval. Pt is currently on bedrest per order in [facility] as well as plastic surgeries note [...] -Discussed with Dr. Boris Camacho M.D. PGY-1 [phone] Attending Note: Patient doing well flap viable Will plan debulking and inset on Monday, risks benefits and alternatives were discussed with the patient. She understands the the proposed procedure which is flap inset debulking possible split-thickness skin graft and possible wound VAC placement all questions were answered Continue nonweightbearing daily aspirin and Lovenox protocol German Torrez MD - 08/21/2019 5:53 AM EDT [facility] MED SURG [address] [place] [address] Dept: [phone] Loc: [phone] Adult Orthopaedic Service Patient Name: Denys Arriola [...] debulking on 08/22 per plastics, will place [facility] frame at that time/after -Ice/elevate -PT/OT -Leave splint clean, dry, and intact -Continue home medication -Pain control per orthopaedic protocol -Intra-op cultures pending -DVT PPx per primary team. -okay for diet today German Cabrera PGY-2 Orthopaedic Surgery 08/21/2019 5:53 AM [phone] Victor Manuel Melo DO - 08/20/2019 9:47 AM EDT [facility] - Infectious Diseases Attending Progress [...] cultures: Corynebacterium striatum vanc 0.50 Culture, Tissue [[id number]] (Abnormal) Collected: 08/14/19 0815 Order Status: Completed [...] on case for fixator placement later Pager: [phone] Josse Buitrago MD - 08/20/2019 8:20 AM [...] Date 08/20/19 0000 - 08/20/19 2359 Shift [id number] [phone] 24 Hour Total INTAKE Shift Total(mL/kg) OUTPUT [...] 08/16 PLAN: Neuro/Spine: - tylenol scheduled - [place] - add toradol today -dilaudid prn breakthrough [...] Musculoskeletal: - bedrest - q2hr flap checks -alxe annegger to LLE - vioptix - wound [...] on=xygenation. Will d/c Oxycodone - intolerance, start [place] PRN, discuss with Plastic surgery initiation of [...] -Discussed with Dr. Boris Camacho M.D. PGY-1 [phone] Carrington Ly MD - 08/20/2019 6:20 AM EDT [facility] ICU T[address] [place], [place] [id number] Dept: [phone] Loc: [phone] Adult Orthopaedic Service Patient Name: Denys Arriola [...] James MD - 08/19/2019 11:51 AM EDT [facility] - Infectious Diseases Attending Progress Note Subjective: [...] scanned under Media tab [facility]ame [facility]ings [facility] Maldonado MD - 08/19/2019 10:24 AM [...] 325 mg 325 mg Oral Daily Alberto Rome, DO 325 mg at 08/18/19 1102 [...] Date 08/19/19 0000 - 08/19/19 2359 Shift [id number] [phone] 24 Hour Total INTAKE I.V.(mL/kg) 1441(21.2) 1441(21.2) [...] vac to donor site - OR today [facility] WB Status: RUE:AT LUE: AT RLE: AT [...] Dr. Burnham -2 Department of General Surgery #[id number] Attending NOte: Patient seen and independently evaluated Agree as above Plan on inset +/- STSG on Monday Ok to dc vioptix on Monday rounds Q4 flap checks Regular diet Transfer out of ICU Jesse Burnham Carrington Ly MD - 08/19/2019 6:23 AM EDT [facility] ICU T2 [address] [facility] [address] Dept: [phone] Loc: [phone] Adult Orthopaedic Service Patient Name: Denys Arriola [...] Start dvt chemoprophylaxis. Alexy Thompson MD Pg [phone] oblete, Felix Pina MD - 08/18/2019 11:18 AM EDT [facility] - Infectious Diseases Attending Progress [...] Ly MD - 08/18/2019 5:53 AM EDT [facility] ICU T2 [address] [place] [address] Dept: [phone] Loc: [phone] Adult Orthopaedic Service Patient Name: Denys Arriola [...] injection 10 mL 10 mL Intracatheter PRN Albetro Rome, DO ? heparin flush 100 UNIT/ML [...] Date 08/18/19 0000 - 08/18/19 2359 Shift [id number] [phone] 24 Hour Total INTAKE Blood(mL/kg) 365(5.4) 365(5.4) [...] details corrected below. Alexy Thompson MD Pg [id number] Alberto Rome, - 08/17/2019 8:39 PM ESTPlastic [...] Stallings MD - 08/16/2019 10:56 AM EST [facility] - Infectious Diseases Attending Progress [...] for pain with IV pain medication per staff research scientist prior to wound VAC dressing change. Old [...] Will continue to follow pt. Will consult engine room helper. Randy Berg DO - 08/16/2019 7:48 AM EST [facility] Progress Note Denys Arriola : [...] by Randy Harris DO 6PM-6AM please page: [facility] [place] [facility] Fabio Camacho MD - 08/16/2019 6:13 AM EST [facility] H6 TELEMETRY [address] [facility] [facility] [address] Dept: [phone] Loc: [phone] Plastics Progress Note Name: Denys Arriola Date:08/16/2019 [...] daily DVT ppx Fabio Camacho M.D. 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 Physical Therapy staff. Goals and/or treatment plan [...] Berg DO - 08/15/2019 8:17 AM EST [facility] Progress Note Denys Arriola : 1985(33 [...] DVT prophylaxis: SCDs Disposition:await test results, await splunk consultant recommendations and await clinical improvement I spent over 51% of total time providing counseling or incoordination of care: 25 minutes discussed with pt, I personally examined the patient and I personally reviewed chart, data, labs radiology reports 6AM-6PM please page: Electronically signed by Randy Harris DO 6PM-6AM please page: [facility] [place] Medicine Fabio Camacho MD - 08/15/2019 5:48 AM EST [facility] H[address] TELEMETRY [address] [place] [address] Dept: [phone] Loc: [phone] Plastics Progress Note Name: Denys Arriola Date:08/15/2019 [...] abx to ID Fabio Camacho M.D. 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 Has been NWB LLE since original [...] once Plan weeks: once G-Code OutComes Score [facility] Daily Activity Inpatient How much help for putting on and taking off regular lower body clothing?: None How much help for Bathing?: None How much help for Toileting?: None How much help for putting on and taking off regular upper body clothing?: None How much help for taking care of personal grooming?: None How much help for eating meals?: None [facility] Inpatient Daily Activity Raw Score: 24 AM-[facility] Inpatient ADL T-Scale Score : 57.54 ADL [...] entire session. Kim Wright OTR/L Carolyn Bryant [facility] - 11/18/2019 7:31 AM EDTInfectious Diseases has [...] dc when antibiotics set up Rx for [place] DVT PPx: ASA 81mg daily and cuffs. PT Ice Elevation Fabio Camacho M.D. Orthopaedic Surgery PGY-1 [phone] Rianna Carrillo DTR - 11/17/2019 8:54 AM EDT Nutrition rescreen completed. Chart reviewed. Patient to be monitored and followed by the diet valve technician. Carrington Stephens MD - 11/17/2019 6:06 [...] dc when antibiotics set up Rx for [place] DVT PPx: ASA 81mg daily and cuffs. 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 Has been NWB LLE since original [...] for evaluation of the flap. Please page forest fire control officer ortho with any questions or concerns. Greg [...] waiting on a call back from the [facility] to assist. Mary Perez RN - 11/15/2019 [...] FROM OR VIA CART. SPONT RESP. WITH DIRECTOR COMMUNITY HEALTH NURSING IN ATTENDANCE. PLACED ON MONITOR. MONITOR ALARMS [...] BE BASED ON THE PRIMARY CLINICAL RECORDS. [facility] provides no warranty or guarantee of the accuracy or completeness of information in this document. UNRECOGNIZED CONTENT PROVIDED BELOW FOR UNRECOGNIZED SECTION INFORMATION SOURCE DATE CREATED AUTHOR AUTHOR'S ORGANIZATIO N 11/30/2017 [facility] DATE CREATED AUTHOR AUTHOR'S ORGANIZATIO N 07/10/2019 [facility] CREATED AUTHOR AUTHOR'S ORGANIZATIO N 08/06/2019 [facility] DATE CREATED AUTHOR AUTHOR'S ORGANIZATIO N 01/14/2020 [facility] UNRECOGNIZED CONTENT PROVIDED BELOW FOR UNRECOGNIZED SECTION Reason for Visit Reason Comments
== END | disposition home or self-care (01) ==
LOC: LABSPEC 10:26
PROVIDERS: Visit Provider Internal Medicine Infectious Disease
DX: M86.9 Osteomyelitis, unspecified (principal)
CPT/HCPCS: 80053; 80202; 85025; 85652; 86140

== ENCOUNTER → 2019-11-05 12:00 | Outpatient (CLI) | payer OTHER, SELFPAY ==
[2019-11-05 13:16] LABS: Vancomycin, Trough Level 12.2 ug/mL (5.0-15.0)
[2019-11-05 13:23] LABS: Absolute Lymphocyte Count 1.21 X10^3/uL (0.83-4.51); Absolute Neutrophil Count 5.3 X10^3/uL (2.0-7.7); Basophil# 0.07 X10^3/uL; Basophil% 0.9 % (0-1); Hematocrit 34.3 % (37-47); Hemoglobin 11.3 g/dL (12.0-15.0); Lymphocyte # 1.21 X10^3/ul (4.0); Mean Corp Hgb Conc 32.9 g/dL (32-36); Mean Corpuscular Hgb 27.7 pg (27.0-32.0); Mean Corpuscular Volume 84.1 fL (81-99); Mean Platelet Vol. 10.3 fl (6.2-12.0); Monocyte% 9.2 % (0-10); NRBC Flagged by Analyzer 0 % (0-5); Neutrophil # 5.28 X10^3/uL (2.7-7.7); Neutrophil % 69.6 % (47-70); Platelet Count 316 K/mm3 (150-450); RBC Distribution Width CV 13.2 % (11.6-14.6); RBC Distribution Width SD 39.7 fl (35.1-43.9); Red Blood Count 4.08 M/mm3 (4.2-5.4); White Blood Count 7.6 K/mm3 (4.4-11.0)
[2019-11-05 13:25] LABS: ALB/GLOB Ratio 1.1 RATIO (0.9-2.4); AST(SGOT) 51 U/L (15-37); Alanine Aminotransfer ALT/SGPT 46 U/L (13-56); Albumin, Serum 3.6 g/dL (3.2-5.0); Alkaline Phosphatase 125 U/L (45-117); Anion Gap 8 (5-15); BUN 11 mg/dL (7-18); BUN/Creat Ratio 15.8 RATIO (10-20); CRP < 2.90 mg/L (0.0-3.0); Chloride 108 mmol/L (98-107); EST Glomerular Filtration Rate 102 mL/min (>60); Est Glom Filt Rate - Afr Amer 123 mL/min (>60); Globulin 3.3 g/dL (2.2-4.2); Glucose 80 mg/dL (74-106); Potassium 4.3 mmol/L (3.5-5.1); Protein, Total 6.9 g/dL (6.4-8.2); Sodium Level 140 mmol/L (136-145)
[2019-11-05 13:29] LABS: Erythrocyte Sedimentation Rate 14 mm/hr (0-20)
--- OUTSIDE RECORDS SUMMARY | 2020-03-24 17:12 | XMS RPT_ITS | CCD ---
:1985 External Reference #:[id number] Author Organization [facility] Care Team Providers Name Role Phone Dimas CASTELLANOS Unavailable Unavailable IMCA Unavailable Unavailable JamesDolores Primary Care Provider Dolores Ramirez Primary Care Provider Allergies Reported Allergen Reaction(s) Severity Date of Onset Location Acetaminophen / Nausea And Vomiting Mild 08-14-2019 - [facility], oxyCODONE [place] ([address]) Medications Current Medications Medication Name Sig Date Prescriber Location Albuterol / ipratropium-albuterol 08-17-2019 [facility], Ipratropium (DUONEB) nebulizer [place] ([address] ) solution 1 ampule ALPRAZolam ALPRAZolam (NIRAVAM) 01-09-2020 [facility], dissolvable tablet [place] ([address] ) 0.25 mg Aspirin aspirin 81 MG EC 08-26-2019 Samuel Diogenes Hagen [facility], tablet Take 1 tablet [place] (456 40) by mouth daily 30 tablet 3 08/27/2019 Active 325 mg, Oral, DAILY, First 08-14-2019 - 08-25-2019 [facility], [place] ([address]) dose on 08/17/19 at 1830 Calcium Chloride / lactated ringers 01-09-2020 [place] Lactate / Potassium infusion (17061) Chloride / Sodium Chloride lactated ringers 12-11-[address] [facility] [place], [place] infusion (83750) lactated ringers 11-15-2019 - 11-15-2019 [place] infusion ([address]) Intravenous, at 125 09-27-2019 [place] mL/hr, CONTINUOUS, (85834) Starting Mon09/27/19 at 1730, Post-op lactated ringers 09-27-2019 - 09-27-2019 [facility] [place] infusion ([address]62) Intravenous, at 125 08-23-2019 - 08-24-2019 Pepe Verde [facility], [place] mL/hr, CONTINUOUS, (40145) Starting 08/23/19 at 1930 lactated ringers 08-23-2019 - 08-23-2019 Carrington Stephens [facility] [place] infusion (49957) Intravenous, at 125 08-17-2019 - 08-20-2019 Alberto Rome [facility], [place] mL/hr, CONTINUOUS, (17397) Starting 08/17/19 at 1830 lactated ringers 08-17-2019 - 08-17-2019 [facility] [place] infusion (16993) lactated ringers 08-14-2019 - 08-14-2019 [facility] [place] infusion (07438) cefepime cefepime (MAXIPIME) 2 g 11-16-2019 Felix Love [place] IVPB extended (mini-bag) (45 237) Cetirizine 10 mg, Oral, DAILY, First 11-15-2019 [place] dose on Mon11/15/19 at 1700 ( 93174) 10 mg, Oral, DAILY, First dose 09-27-2019 [facility], [place] ([address]) on Mon09/27/19 at 1730 cetirizine (ZYRTEC) tablet 10 08-15-2019 - 08-17-2019 [place] ([address]) mg diphenhydrAMINE diphenhydrAMINE (BENADRYL) 01-09-2020 - [facility], injection 12.5 mg 01-09-2020 [place] ([address]) diphenhydrAMINE (BENADRYL) 12-11-2019 - 12-11-2019 [place], [place] injection 12.5 mg (31143) Docusate docusate sodium (COLACE) 01-09-2020 - 02-08-2020 [place] 100 MG capsule Take 1 (72811 ) capsule by mouth 2 times daily 60 capsule 0 01/09/2020 02/08/2020 Active docusate sodium (COLACE) capsule 100 mg 11-17-2019 [place] ([address]) docusate sodium (COLACE) capsule 100 mg 08-20-2019 [place], [place] ([address]) Docusate / sennosides, LONGTERM 1 tablet, Oral, 2 TIMES 09-27-2019 [place] DAILY, First dose on (96399) Mon09/27/19 at 2100, Post-op sennosides-docusate sodium 08-15-2019 - 08-20-2019 [place] (SENOKOT-S) 8.6-50 MG tablet 2 ( 18719) tablet Enoxaparin enoxaparin (LOVENOX) injection 08-18-2019 [place] ([address]) 40 mg fentaNYL fentaNYL (SUBLIMAZE) injection 01-09-2020 [place] ([address]) 50 mcg fentaNYL (SUBLIMAZE) injection 25 mcg 01-09-2020 [place] ([address]) FLUoxetine FLUoxetine (PROZAC) 07-17-2019 - Mara Bernal [facility] 20 MG capsule Take 1 09-28-2019 [place] ([address]) capsule by mouth daily 30 capsule 5 07/17/2019 Active heparin heparin flush 100 08-15-2019 [facility] UNIT[facility]ML injection 250 [place] ([address]) Units hydrALAZINE hydrALAZINE 01-09-2020 [facility]- (APRESOLINE) [place] ([address]) injection 5 mg hydrALAZINE (APRESOLINE) injection 5 mg 12-11-2019 [place] ([address]) HYDROmorphone HYDROmorphone (DILAUDID) 01-09-2020 [place] injection 0.25 mg (87955) HYDROmorphone (DILAUDID) 01-09-2020 [facility], [place] 0.5 mg [place] (92133) HYDROmorphone (DILAUDID) 12-11-2019 [facility], [place] 1 mg [place] (87975) HYDROmorphone (DILAUDID) 12-11-2019 [facility] [place] 0[place]5 [place] ([address]) HYDROmorphone (DILAUDID) 12-11-2019 [facility] [place] 0.25 mg [place] (79529) HYDROmorphone (DILAUDID) 08-20-2019 - Heber Hayes [facility] [place], [place] 0.5 mg 08-23-2019 [place] (72639) HYDROmorphone (DILAUDID) 08-17-2019 - [facility] Eliu [facility] [place], 1 MG/ML injection 08-17-2019 [place] ([address]29) HYDROmorphone (DILAUDID) 08-17-2019 - Edwar Yan [facility] [place], injection 0.5 mg 08-17-2019 [place] ([address]27) HYDROmorphone (DILAUDID) 08-16-2019 - Randy Harris [facility] [place], [place] 1 mg 08-16-2019 [place] (19176) HYDROmorphone (DILAUDID) 08-15-2019 - [facility] [place], [place] 1 mg 08-15-2019 [place] ([address]251) HYDROmorphone HYDROmorphone 09-27-2019 [facility]- (DILAUDID) injection (DILAUDID) [place] ([address]) 0.25 mg 0.25 mg Ibuprofen ibuprofen 12-11-2019 - Miesha Otoole [facility] (ADVIL;MOTRIN) 800 MG 12-21-2019 [place] ([address]) tablet Take 1 tablet by mouth 3 times daily as needed for Pain (with meals) 30 tablet 1 12/11/2019 Active iopamidol iopamidol 08-15-2019 [facility]- (ISOVUE-370) 76 % (ISOVUE-370) 76 % [place] ([address]) injection 100 mL injection 100 mL Ketorolac ketorolac (TORADOL) 08-24-2019 - [facility]- injection 30 mg 08-29-2019 [place] ([address] 7) ketorolac (TORADOL) injection 08-20-2019 - 08-23-2019 [facility] [place] ([address]) 30 mg Labetalol labetalol (NORMODYNE;TRANDATE) 01-09-2020 [place] injection 5 mg (87362) labetalol (NORMODYNE;TRANDATE) injection 5 12-11-2019 [place] ([address]) mg Lidocaine lidocaine PF 1 % injection 01-09-2020 - 01-09-2020 [place] 1 mL (67760) lidocaine PF 1 % injection 1 mL 12-11-2019 - 12-11-2019 [place] ([address]) Meperidine meperidine (DEMEROL) 01-09-2020 Heber Hayes [place] injection 12.5 mg (73388) meperidine (DEMEROL) injection 12-11-2019 [place] ([address]) 12.5 mg morphine sulfate morphine sulfate 11-16-2019 Fabio A [facility]- (PF) injection 2 mg (PF) injection 2 [place] ([address]) mg Ondansetron ondansetron 01-09-2020 - [facility] (ZOFRAN) injection 01-09-2020 [place] (4 5237) 4 mg ondansetron (ZOFRAN) injection 4 12-11-2019 - 12-11-2019 [place] mg ([address]38) 4 mg, Intravenous, EVERY 6 HOURS 08-14-2019 [place] PRN, Nausea, Vomiting, Starting (24687) 08/14/19 at 1623 Administer if oral route cannot be used. oxyCODONE oxyCODONE 01-09-2020 - [facility] (ROXICODONE) 01-09-2020 [place] ([address]) immediate release tablet 5 mg POLYETHYLENE GLYCOL polyethylene glycol 11-17-2019 Greg Corbett [facility] 3350 (GLYCOLAX) packet 17 [place] ([address]) g polyethylene glycol (GLYCOLAX) packet 17 g 08-20-2019 [place] ([address]) Promethazine promethazine (PHENERGAN) 01-09-2020 - 01-09-2020 [place] injection 6.25 mg (96591) promethazine (PHENERGAN) 12-11-2019 - 12-11-2019 [place] injection 6.25 mg (50462) promethazine (PHENERGAN) tablet 11-15-2019 [place] 12.5 mg (34462) promethazine (PHENERGAN) tablet 09-27-2019 [place] 12.5 mg (18457) sennosides, LONGTERM senna (SENOKOT) tablet 8.6 mg 08-20-2019 [place] ([address]) Sodium Chloride sodium chloride flush 0.9 % 01-09-2020 [place] injection 10 mL (99874) 10 mL, Intravenous, EVERY 11-15-2019 [place], [place] 12 HOURS SCHEDULED (2 (71976) times per day), First dose on Mon11/15/19 at 2100 10 mL, Intravenous, PRN, 11-15-2019 [place] [facility], After every IV (56966 ) line use, Starting Mon11/15/19 at 1554 10 mL, Intravenous, EVERY 09-27-2019 [place], [place] 12 HOURS SCHEDULED (2 (35049) times per day), First dose on Mon09/27/19 at 2100, Post-op 10 mL, Intravenous, PRN, 09-27-2019 [place] [facility], Starting Mon (83879) 09/27/19 at 1705 After every IV line use Post-op 0.9 % sodium chloride 08-25-2019 - 08-25-2019 Michelle Cabrera [place] bolus (07226) 0.9 % sodium chloride 08-17-2019 - 08-18-2019 [place] bolus (17807) sodium chloride flush 0.9 08-15-2019 [place] % injection 10 mL (81650) sodium chloride flush 0.9 08-15-2019 [place] % injection 10 mL (23834) 10 mL, Intravenous, EVERY 08-14-2019 [place], [place] 12 HOURS SCHEDULED (2 (20842) times per day), First dose on Mon08/14/19 at 2100 10 mL, Intravenous, PRN, 08-14-2019 [place] [facility], After every IV (75182 ) line use, Starting 08/14/19 at 1623 vancomycin (VANCOCIN) vancomycin (VANCOCIN) 11-15-2019 [place], [place] 1,250 mg in dextrose 5 % 1,250 mg in dextrose 5 % (16879) 250 mL IVPB 250 mL IVPB vancomycin (VANCOCIN) 1,250 mg 08-17-2019 - 08-27-2019 [place] ([address]) in dextrose 5 % 250 mL IVPB vancomycin (VANCOCIN) vancomycin 08-27-[address] [facility], 1,500 mg in dextrose (VANCOCIN) 1,500 mg [place] ([address]43) 5 % 250 mL IVPB in dextrose 5 % 250 mL IVPB Completed/Discontinuned Medications Medication Name Sig Date Prescriber Location Acetaminophen acetaminophen (TYLENOL) 01-09-2020 - [facility], tablet 1,000 mg 01-09-2020 [place] ([address]) acetaminophen (TYLENOL) tablet 12-11-2019 - 12-11-2019 [place], [place] 1,000 mg (92332) 650 mg, Oral, EVERY 4 HOURS PRN, 11-15-2019 [place] Pain Mild (1-3), Fever, Fever (4 5237) >100.5 F (38 C), Starting 11/15/19 at 1554 Maximum dose of acetaminophen is 4000 mg from all sources in 24 hours. acetaminophen (TYLENOL) tablet 11-15-2019 - 11-15-2019 [place], [place] 1,000 mg (19927) 650 mg, Oral, EVERY 4 HOURS PRN, 09-27-2019 [place] Other, Pain (1-10), Starting Fri (40022) 09/27/19 at 1705 Give in addition to any other pain medication ordered at same time for any pain indication. Post-op acetaminophen (TYLENOL) tablet 09-27-2019 - 09-27-2019 [place], [place] 1,000 mg (13671) acetaminophen (TYLENOL) tablet 08-23-2019 - 08-24-2019 [place], [place] 650 mg (99127) acetaminophen (TYLENOL) tablet 08-19-2019 - 08-20-2019 [facility], [place] 650 mg (79751) acetaminophen (OFIRMEV) infusion 08-17-2019 - - [facility], [place] 1,000 mg (78456) acetaminophen (TYLENOL) tablet 08-14-2019 - - [facility], [place] 1,000 mg (12902) Acetaminophen / HYDROcodone-acetaminophen 01-09-2020 - Sushila Cochran Caryn HYDROcodone (NORCO) 5-325 MG per tablet 01-16-2020 [facility], Indications: [place] displaced [place] ([address]) 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 28 tablet 0 01/09/2020 01/16/2020 Active HYDROcodone-acetaminophen (NORCO) 12-11-2019 - Miesha Segundomao [facility]- 5-325 MG per tablet Indications: 12-18-2019 [place] ([address]) S/P split thickness skin graft Take 1 tablet by mouth every 6 hours as needed for Pain for up to 7 days. Intended supply: 7 days. 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 Intended supply: 7 days. Take lowest dose possible to manage pain 42 tablet 0 11/15/2019 11/22/2019 Active HYDROcodone-acetaminophen (NORCO) 09-28-2019 - Michelle Cabrera [facility]- 5-325 MG per tablet Indications: 10-05-2019 [place] ([address]) Wound dehiscence Take 1 tablet by mouth every 6 hours as needed for Pain for up to 7 days. 28 tablet 0 09/28/2019 10/05/2019 Active HYDROcodone-acetaminophen (NORCO) 09-27-2019 [facility]- 5-325 MG per tablet 1 [place] ([address]) HYDROcodone-acetaminophen (NORCO) 08-27-2019 - Samuel Diogenes Hieu [facility] 5-325 MG per tablet Indications: 01-09-2020 [place] ([address]) Closed torus fracture of distal end of left tibia with delayed healing, subsequent encounter Take 1 tablet by mouth every 6 hours as needed for Pain for up to 7 days. 28 tablet 0 08/27/2019 09/03/2019 Active HYDROcodone-acetaminophen (NORCO) 08-20-2019 [facility] 5-325 MG per tablet 1 [place] ([address]) HYDROcodone-acetaminophen (NORCO) 08-19-2019 - [facility] 5-325 MG per tablet 1 tablet 08-27-2019 [place] ([address]) alteplase (CATHFLO) alteplase (CATHFLO) 11-16-2019 - M [facility], injection 1 mg injection 1 mg 11-16-2019 [place] (25561) alteplase (CATHFLO) injection 1 11-16-2019 - 11-16-2019 [facility], [place] ([address]) mg ceFAZolin 2 g, Intravenous, EVERY 8 09-27-2019 - 09-28-2019 [facility], [place] HOURS, 3 doses, First dose ( 89960) on Mon09/27/19 at 1730, Last dose on Mon09/28/19 at 0930, Post-op 2 g, Intravenous, EVERY 8 08-14-2019 - 08-15-2019 German Cabrera [place] HOURS, First dose on Mon (97982) 08/14/19 at 1645, Until Discontinued ceFAZolin (ANCEF) 2 g in 08-14-2019 - 08-14-2019 Mando Jing [facility], [place] dextrose 4 % 100 mL IVPB (66347) (premix) ceFAZolin (ANCEF) ceFAZolin (ANCEF) 12-11-2019 - Jesse R Boris [facility]- 2 g in dextrose 5 2 g in dextrose 5 12-11-2019 [place] ([address]339) % 100 mL IVPB % 100 mL IVPB celecoxib celecoxib 01-09-2020 - [facility]- (CELEBREX) capsule 01-09-2020 [place] (4 2877) 400 mg celecoxib (CELEBREX) capsule 11-15-2019 - 11-15-2019 [facility], [place] ([address]) 400 mg celecoxib (CELEBREX) capsule 08-14-2019 - 08-14-2019 [facility], [place] ([address]) 400 mg Ciprofloxacin ciprofloxacin (CIPRO) 05-22-2019 - Historical [facility]- 500 MG tablet TAKE 1 08-27-2019 [place] ([address]) TABLET BY MOUTH TWICE Historical DAILY 0 05/22/2019 Provider 08/27/2019 Discontinued (Stop Taking at Discharge) Famotidine famotidine (PEPCID) 01-09-2020 - [facility]- tablet 20 mg 01-09-2020 [place] ([address]) famotidine (PEPCID) tablet 20 12-11-2019 - 12-11-2019 [place] ([address]) mg famotidine (PEPCID) tablet 20 11-15-2019 - 11-15-2019 [place] ([address]956) mg famotidine (PEPCID) tablet 20 09-27-2019 - 09-27-2019 [place], [place] ([address]646) mg famotidine (PEPCID) tablet 20 08-14-2019 - 08-14-2019 [place] ([address]136) mg gabapentin gabapentin (NEURONTIN) 01-09-2020 - 01-09-2020 [place], [place] capsule 300 mg (13673) gabapentin (NEURONTIN) 11-15-2019 - 11-15-2019 [place] capsule 300 mg (08557) gabapentin (NEURONTIN) 09-27-2019 - 09-27-2019 Jesse R Boris [place] capsule 300 mg (34122) gabapentin (NEURONTIN) 08-14-2019 - 08-14-2019 [place] capsule 300 mg (19434) guaiFENesin guaiFENesin 08-15-2019 - [facility]- (MUCINEX) extended 08-17-2019 [place] (4 5237) release tablet 600 mg LORazepam LORazepam (ATIVAN) 2 08-23-2019 - Historical [facility]- MG/ML injection 08-23-2019 [place], [place] (4523 7) LORazepam (ATIVAN) 08-23-2019 - 08-23-2019 Venkat Arroyo [place], [place] injection 0.5 mg (09463) Magnesium Sulfate magnesium sulfate 08-17-2019 - Valencia Oakes [facility]- 2 g in 50 mL IVPB 08-17-2019 [place] (45 237) premix Midazolam midazolam 01-09-2020 - Historical [facility]- (VERSED) 2 MG/2ML 01-09-2020 Provider [place] (45 237) injection midazolam (VERSED) 01-09-2020 German Betancourt [place], [place] injection 2 mg (27919) midazolam (VERSED) 11-15-2019 - 11-15-2019 Venkat Monroy Cruz [place], [place] injection 2 mg (02867) midazolam (VERSED) 09-27-2019 - 09-27-2019 Edwar Yan [place], [place] injection 2 mg (98533) midazolam (VERSED) 08-13-2019 - 08-14-2019 Altaf Lara [place], [place] injection 2 mg (28850) Morphine morphine sulfate 11-18-2019 - Santi Page [facility], (PF) injection 4 mg 11-18-2019 [place] (4523 7) morphine sulfate (PF) 11-16-2019 - Petar Nuno [facility], injection 2 mg 11-16-2019 [place] (47823) Vancomycin vancomycin (VANCOCIN) 1000 mg in 09-28-2019 [place] ([address]) dextrose 5% 200 mL IVPB VANCOMYCIN HCL IV Infuse 09-17-2019 - Historical Provider [facility], 1 g intravenously every 09-28-2019 [place] (4523 7) 12 hours 0 09/17/2019 09/28/2019 Active vancomycin (VANCOCIN) 08-15-2019 - Dat Honeycutt [facility], 1000 mg in dextrose 5% 08-17-2019 [place] ([address]44 ) 200 mL IVPB VANCOMYCIN HCL IV Infuse 01-09-[address] [facility], intravenously 0 [place] ([address]) 01/09/2020 Discontinued VANCOMYCIN HCL IV Infuse Historical Provider [facility], intravenously 0 Active [place] (28055 ) Problems Active Problems Category Problem Name Status Date Location Anxiety disorders Anxiety [facility]-2014 [facility] [place] ([address]) Complication of device; Infection associated with Active [facility], implant or graft implant [place] ([address]484) Endometriosis Endometriosis (clinical) Active 06-17-2016 - [facility] [place] ([address]) Fracture of lower limb Closed fracture distal Active 08-13-19 [facility] [place], [place]ia [place] (97486) Infective arthritis and Osteomyelitis of tibia Active [facility], osteomyelitis (except [place] (45 237) that caused by tuberculosis or sexually transmitted disease) Mood disorders Depressive disorder Active 12-25-2014 [facility] [place] ([address]) Other infections; Sequela of infection Active [facility], including parasitic caused by Corynebacterium [place] (17051) Residual codes; At risk of breast cancer Active 06-27-2018 - [facility], unclassified [place] (39525) Residual codes; H/O: surgery Active [facility], [place]classified [place] (89067) Past or Other Problems Category Problem Name Status Date Location Abdominal pain Chronic pelvic pain of Completed 06-17-2016 - [facility]- [place] ([address]) Acute posthemorrhagic Acute posthemorrhagic Completed 08-17-2019 [facility] anemia [place] ([address]) Complications of Postoperative wound Completed 09-27-2019 [facility]- surgical procedures or breakdown [place], [place] ([address]48) medical care Fluid and electrolyte Hyponatremia Completed 08-19-2019 [facility]- [place] ([address]) Headache; including Posttraumatic headache Completed 12-25-2014 [facility] migraine [place] ([address]143) Open wounds of Unspecified open wound, Completed 08-15-2019 - [facility] extremities left ankle, [place] ( [address]) encounter Open wounds of head; Wound dehiscence Completed 08-13-2019 [facility] neck; and trunk [place], [place] (6733 7) Residual codes; Family history of Completed 06-27-2018 [facility] ealt- unclassified malignant [place]oplasm [place] ([address]) breast Results Result Name Value Range Unit Interpretation Flag Date Location op note on Op Note PATIENT: DENYS ARRIOLA Normal 2019 [facility] ([id number]) ADMISSION DATE: 01/09/2020 SURGERY DATE: 01/09/2020 DATE [...] Diagnosis: Left distal tibia nonunion. Anesthesia: General. Director Of Strategic Communications: Steven Ortega M.D. Estimated Blood Loss: 100 cc. Fluids: Crystalloid. Clinical History: The patient is a 34-year-old female who pr eviously underwent ORIF of a distal tibia fracture at [facility]. She immediately had wound breakdown and was sent to dc after hav ing exposed hardware in the [...] condition without comp lication. Diskriter Job ID: [id number] Deon Davila MD DOD:01/10/2020 04:02 P EM/dsk DOT:01/10/2020 05:04 P Job Number: [id number] Document Number: [id number] cc: Deon Davila MD [address] [address] cult/stain - aerobic and anaerobic on 2019-11-20 CULT/STAIN - AEROBIC STAIN GRAM --> Status: F Norm al 11-20-2019 [facility] AND ANAEROBIC Rare polymorphonuclear cells/lpf. System (14545) No organisms seen. No organisms seen. CULT./ST. BACTERIA --> Status: F No growth at 3 days. CULTURE ANAEROBE --> Status: F No growth of anaerobes at 5 days. Comment: Order Comment: Specimen cat ected in O.R. Performed By: #### Alla HILLS/ MICAELA #### [address] [address] vancomycin trough o n 2019-11-17 Vancomycin Trough 12.1 15.0-20.0 ug/mL Low 11-17-2019 [facility] (28242) Comment: Result Comment: . Performed By: #### Alla HILLS/ MICAELA #### [facility] [employer] [address] [address] No panel information on 2019-11-17 Interpretation and review Abnormal [place] of laboratory results (41965) Vancomycin Tr 12.1 15 - 20 ug/mL Low 11-17-2019 [place] ([address]) Comment: . Test Performed by [facility] 11-17-2019 [place] ([address]) [address] [address] hemogram on 2019-11 Erythrocyte distribution 13.9 11.5-14.5 % Normal 11-15 [facility] width (RBC) [Ratio] (83028) Comment: Performed By: #### Alla HILLS/ MICAELA #### [place] [address] [address] [place], [place] Hematocrit (Bld) [Volume 30.5 35.0-47.0 % Low 11-15 [facility] fraction] (56862) Comment: Performed By: #### Alla HILLS/ MICAELA #### [place] [address] [address] [place], [place] Hemoglobin (Bld) [Mass/Vol] 10.3 11.7-16.0 g/dL Low [facility] (52006) Comment: Performed By: #### REINIER C/ MICAELA #### [place] [address] [address] [place], [place] MCH (RBC) [Entitic mass] 27.2 26.0-34.0 pg Normal 11-15 [facility] (36760) Comment: Performed By: #### Alla HILLS/ MICAELA #### [place] [address] [address] [place], [place] MCHC (RBC) [Mass/Vol] 33.8 32.0-36.0 % Normal 11-16-19 20 [facility] (17017) Comment: Performed By: #### Alla HILLS/ MICAELA #### [place] [address] [address] [place], [place] MCV (RBC) [Entitic vol] 80.5 79.0-98.0 fL Normal 2019 [facility] (03197) Comment: Performed By: #### Alla HILLS/ MICAELA #### [place] [address] [address] [place], [place] Platelet mean volume (Bld) 8.5 7.4-10.4 fL Normal [facility] [Entitic vol] (93039 ) Comment: Performed By: #### Alla HILLS/ MICAELA #### [place] [address] [address] [place], [place] Platelets (Bld) [#/Vol] 327 140-440 10*3/uL Normal 2019 [facility] (76062) Comment: Performed By: #### Alla HILLS/ MICAELA #### [facility] [address] [place], [place] RBC (Bld) [#/Vol] 3.79 3.80-5.20 10*6/uL Low 11-16-2019 [facility] (25820) Comment: Performed By: #### REINIER C/ MICAELA #### [place] [address] [address] [place], [place] WBC (Bld) [#/Vol] 14.3 3.6-10.7 10*3/uL High 11-16-2019 [facility] [facility] ([address]) Comment: Performed By: #### REINIER C/ MICAELA #### [address] [place], [place] basic metabolic panel on 2019-11-16 Calcium [Mass/Vol] 9.1 8.4-10.4 mg/dL Normal 11-16-2019 [facility] (80651) Comment: Performed By: #### Alla HILLS/ MICAELA #### [address] [place], [place] Anion gap [Moles/Vol] 9 Normal 11-16-19 [facility] (62773) Comment: Performed By: #### Alla HILLS/ MICAELA #### [address] [place], [place] CO2 [Moles/Vol] 21 22-30 mmol/L Low 11-16-2019 [facility] (89693) Comment: Performed By: #### Alla HILLS/ MICAELA #### [address] [place], [place] Creatinine [Mass/Vol] 0.63 0.52-1.25 mg/dL Normal 11-16-19 [facility] (22388) Comment: Performed By: #### REINIER C/ MICAELA #### [address] [place], [place] GFR/1.73 sq M > 90.0 >60 mL/min/{1.73_m2} Normal 0 [facility] predicted among Syst em (09931) blacks MDRD (S/P/Bld) [Vol rate/Area] Comment: Performed By: #### Alla HILLS/ MICAELA #### [employer] [address] [place], [place] GFR/1.73 sq M > 90.0 >60 mL/min/{1.73_m2} Normal 0 [facility] [employer] predicted among Syst em (96830) non-blacks MDRD (S/P/Bld) [Vol rate/Area] Comment: Result [...] Performed By: #### Alla HILLS/ MICAELA #### [employer] [address] [place], [place] Glucose [Mass/Vol] 132 70-100 mg/dL High 11-16-2019 [facility] (85958) Comment: Performed By: #### Alla HILLS/ MICAELA #### [employer] [address] [place], [place] Urea nitrogen [Mass/Vol] 17 7-20 mg/dL Normal 11-15 [facility] [employer] [facility] (32494) Comment: Performed By: #### Alla HILLS/ MICAELA #### [employer] [address] [place], [place] Chloride [Moles/Vol] 103 98-107 mmol/L Normal 0 [facility] (45689) Comment: Performed By: #### REINIER C/ MICAELA #### [facility] [address] [place], [place] Potassium [Moles/Vol] 4.3 3.5-5.1 mmol/L Normal 11-16-19 [facility] (67557) Comment: Performed By: #### REINIER C/ MICAELA #### [facility] [address] [place], [place] Sodium [Moles/Vol] 133 135-145 mmol/L Low 11-16-2019 [facility] (46054) Comment: Performed By: #### REINIER C/ MICAELA #### [facility] [address] [place], [place] No panel information on 2019-11-16 Anion gap [Moles/Vol] 9 mmol/L 11-16-19 20 [place] ([address]) Calcium [Mass/Vol] 9.1 8.4 - 10.4 mg/dL 11-16-2019 [place] ([address]) Chloride [Moles/Vol] 103 98 - 107 mmol/L 0 [place] ([address]) CO2 [Moles/Vol] 21 22 - 30 mmol/L Low 11-16-2019 [place] ([address]) Creatinine [Mass/Vol] 0.63 0.52 - 1.25 mg/dL 2019 [place] ([address]) EGFR IF NonAfrican >90.0 >60 mL/min 11-16-2019 [place] ([address]) Comment: KDIGO guidelines provide the following GFR [...] (GFR) from serum creatinine in children is [facility] Bedside Rinaldi equation. It is less accurate in patie nts with extremes of muscle mass, restriction of dietary protein, ingestion of creatine, extra-renal metabolism of cr eatinine, or treatment with medications that affect rahul l tubular creatinine secretion. GFR/1.73 sq M >90.0 >60 mL/min mL/min/{1.73_m2} 11-16-19 20 [facility] predicted among [facility], blacks MDRD [place] (2823 7) (S/P/Bld) [Vol rate/Area] Glucose [Mass/Vol] 132 70 - 100 mg/dL High 11-16-2019 [place] ([address]) Interpretation and Abnormal 11-16-2019 [facility] review of [facility] , laboratory results K Y (03569) Potassium 4.3 3.5 - 5.1 mmol/L 11-16-2019 [facility] [Moles/Vol] [place] ([address]) Sodium [Moles/Vol] 133 135 - 145 mmol/L Low 11-16-2019 [place] [place] ([address]) Urea nitrogen 17 7 - 20 mg/dL 11-16-2019 [facility] [Mass/Vol] [place] ([address]) Test 11-16-2019 [facility] Performed by [facility] [employer] [place] (810 56) System, [address] [place] [address] Erythrocyte 13.9 11.5 - % 11-16-2019 [facility] distribution width 14.5 H [facility], (RBC) [Ratio] [place] (06 075) Hematocrit (Bld) 30.5 35 - 47 % Low 11-16-2019 [facility] [Volume fraction] [place] ([address]) Hemoglobin (Bld) 10.3 11.7 - 16 g/dL Low 11-16-2019 [facility] [Mass/Vol] [place] ([address]) Interpretation and Abnormal 11-16-2019 [facility] review of [facility] , laboratory results K Y (43417) MCH (RBC) [Entitic 27.2 26 - 34 pg 11-16-2019 [facility] mass] [place] ([address]) MCHC (RBC) 33.8 32 - 36 % 11-16-2019 [facility] [Mass/Vol] [facility] [place] (15243) MCV (RBC) [Entitic 80.5 79 - 98 fL 11-16-2019 [facility] vol] [facility] [place] ([address]360) Platelet mean 8.5 7.4 - 10.4 fL 11-16-2019 [facility] y volume (Bld) [facility], [Entitic vol] [place] (45 237) Platelets (Bld) 327 140 - 440 10*3/uL 11-16-2019 Dora [facility] [#/Vol] [place] ([address]) RBC (Bld) [#/Vol] 3.79 3.8 - 5.2 10*6/uL Low 11-16-2019 [place] ([address]) WBC (Bld) [#/Vol] 14.3 3.6 - 10.7 10*3/uL High 11-16-2019 [place] ([address]) Test 11-16-2019 [facility] Performed by [facility] (452 37) System, [address] [place] [address] op note on Op Note Hand Plastic & Reconstructive Surgery No rmal 11-15-2019 [facility] Operative Report (00 000) 11/15/19 Pre-operative [...] to normal structures that can lead to fci problems of pain or dysfunction, wound healing [...] patient's ASA was verified by the nurse systems analyst developer and the anesthesi a staff. Fire risk [...] flap. The posterior flap edge and the [place] tissue was trimmed of scar tissue. At [...] to PACU in sta ble condition The first-rehab assistant was critical to all steps of the operati on, including retraction and arm extremity stabilization during exposure, as well as the deep and superficial wound closure. I understand that section 1842(b)(7)(D) of the Social Security Act generall y prohibits Medicare physician fee schedule payment for the services of assistants [place] in teaching hospitals when qualified residents are available to furnish such services . I certify that the services for which payment is claimed were medically necessary and that no qualified resident was available to pe rform the services. I further understand that these services are subject to post- payment review by the Medicare carrier. Surgeon: Boris-PlasticYovanny (orthopaedics dictated [facility]) Director Of Strategic Communications(s): Xiang ASHER Anesthesia: General endotrachial anesthesia and Regional Estimated blood loss: 300 ml Total IV fluids: 1300 ml crystalloids Blood Transfusion?: No Total Urine Output: 450 cc Drains: Wound vac Specimens: none Implants: Please see Yovanny op note for implants Complications: none Condition: Stable Op Note [facility] Normal 06-0 [facility] GENERAL SURGERY (95555) [address] [facility] [address] Dept: [phone] Loc: [phone] Operative Report Patient Name: Denys Arriola Date [...] antibiotic cement spacer Surgeon: Deon Davila M.D. Director Of Strategic Communications(s): Steven Knutson M.D. and Shad Mon Anesthesia: [...] impregnated nail was created using a 40 Vietnamese chest tube with tobramycin and vancomycin im [...] 2 TS GEL ABO Group: Normal 11-12-2019 [place] [facility] (34639) B Rh, Gel: POS Antibody Screen Gel: NEG Comment: Performed By: #### CXTIS, C/ MICAELA #### [facility] [employer] [address] [place] [address] sars-cov-2 on 11-11 SARS-CoV-2 SARS-CoV-2 --> Status: F Normal [facility] Not Detected (59794) Expected Result: Not Detected _ Real-time, RT-PCR performed on the BD MAX System by the [facility] Microbiology Service. Negative results do not preclude SARS-CoV-2 infection and should not be used as the sole basis for treatment or other patient management decisions. This assay was developed by [employer] and distributed under an Emergency Use Authorization (EUA) granted by the FDA for the qualitative detection of SARS-CoV-2 nucleic acid. Expected Result: Not Detected _ Real-time, RT-PCR performed on the [employer] MAX System by the [facility] Microbiology Service. Negative results do not preclude SARS-CoV-2 infection and should not be used as the sole basis for treatment or other patient management decisions. This assay was developed by [employer] and distributed under an Emergency Use Authorization (EUA) granted by the FDA for the qualitative detection of SARS-CoV-2 nucleic acid. Comment: Order Comment: Specimen cat ected in O.R. Performed By: #### Alla HILLS/ MICAELA #### [address] [place], [place] hemoglobin and hematocrit on 2019-11-12 Hematocrit (Bld) [Volume 35.7 35.0-47.0 % Normal 11-11 [facility] fraction] (85372) Comment: Performed By: #### Alla HILLS/ MICAELA #### [address] [place] [address] Hemoglobin (Bld) 11.8 11.7-16.0 g/dL Normal 11-12-2019 [facility] [Mass/Vol] (70504) Comment: Performed By: #### REINIER C/ MICAELA #### [address] [place] [address] No panel information on 2019-11-12 SARS-CoV-2 Not Detected 11-12-2019 [facility]- Expected Result: [place] ([address]) _ Real-time, RT-PCR performed on the BD MAX System by the [facility] Microbiology Service. Negative results do not preclude SARS-CoV-2 infection and should not be used as the sole basis for treatment or other patient management decisions. This assay was developed by [employer] and [employer] and distributed under an Emergency Use Authorization (EUA) granted by the FDA for the qualitative detection of SARS-CoV-2 nucleic acid. Test Performed by 11-12-2019 [place] ([address]) [address] [place] [address] Specimen Source Comment:Nasopharyngea l Swab Sodium [Moles/Vol] B 11-12-2019 [place], [place] (20 237) Sodium [Moles/Vol] NEG mmol/L 11-12-2019 [place] (93 708) Sodium [Moles/Vol] POS mmol/L 11-12-2019 [place] (93 338) Test Performed by 11-12-2019 [place] ([address]) [address] [place] [address] Hematocrit (Bld) 35.7 35 - 47 % 11-12-2019 [facility]- [Volume fraction] [place] ([address]) Hemoglobin (Bld) 11.8 11.7 - 16 g/dL 11-12-2019 [facility]- [Mass/Vol] [place], [place] (4 5237) Test Performed by 11-12-2019 [place] ([address]) [address] [place] [address] op note on Op Note Hand Plastic & Reconstructive Surgery No rmal 09-27-2019 [facility] Operative Report (00 000) 09/27/19 Pre-operative [...] to normal structures that can lead to fci problems of pain or dysfunction, wound healing [...] patient's ASA was verified by the nurse systems analyst developer and the anesthesi a staff. Fire risk [...] to PACU in stable condition Surgeon: Boris Director Of Strategic Communications(s): Andrea PGY 6 Anesthesia: General endotrachial anesthesia Estimated blood loss: 50cc Total IV fluids: 350 ml Blood Transfusion?: No Total Urine Output: NR Drains: NO Specimens: none Implants: none Findings: Exposed cement spacer Complications: none Condition: Stable hemogram w/ autodiff on 2019-08-28 Abs Baso Cnt 0.1 0.0-0.2 10*3/uL Normal 08-28-2019 [facility] (32697) Comment: Performed By: #### REINIER C/ MICAELA #### [address] [place], [place] Abs Neutrophile Cnt 6.3 1.8-7.0 10*3/uL Normal 08-28-2019 [facility] (16794) Comment: Performed By: #### REINIER C/ MICAELA #### [facility] [employer] [address] [place] Basophils/100 WBC (Bld) 1.1 0.0-2.0 % Normal 2019 [facility] (54255) Comment: Performed By: #### REINIER C/ MICAELA #### [address] [address] [place], [place] Eosinophils (Bld) [#/Vol] 0.3 0.0-0.5 10*3/uL Normal 08-10 [facility] (40623) Comment: Performed By: #### REINIER C/ MICAELA #### [address] [place] [address] Eosinophils/100 WBC (Bld) 3.5 1.0-6.0 % Normal 08-10 [facility] (50538) Comment: Performed By: #### REINIER C/ MICAELA #### [address] [address] [place], [place] Erythrocyte distribution 13.9 11.5-14.5 % Normal 08-27 [facility] width (RBC) [Ratio] (28540) Comment: Performed By: #### REINIER C/ MICAELA #### [address] [place] Granulocytes/100 WBC (Bld) 68.1 40.0-80.0 % Normal [facility] (54110) Comment: Performed By: #### REINIER C/ MICAELA #### [address] [place] Hematocrit (Bld) [Volume 25.2 35.0-47.0 % Low 08-27 [facility] fraction] (74724) Comment: Performed By: #### REINIER C/ MICAELA #### [address] [place] Hemoglobin (Bld) [Mass/Vol] 8.7 11.7-16.0 g/dL Low [facility] (01946) Comment: Performed By: #### REINIER C/ MICAELA #### [address] [place] Lymphocytes (Bld) [#/Vol] 1.9 1.0-4.3 10*3/uL Normal 08-10 [facility] (28296) Comment: Performed By: #### REINIER C/ MICAELA #### [address] [place] Lymphocytes/100 WBC (Bld) 20.9 20.0-40.0 % Normal 08-10 [facility] (03713) Comment: Performed By: #### REINIER C/ MICAELA #### [address] [place] MCH (RBC) [Entitic mass] 30.9 26.0-34.0 pg Normal 08-27 [facility] (99790) Comment: Performed By: #### REINIER C/ MICAELA #### [address] [place] MCHC (RBC) [Mass/Vol] 34.7 32.0-36.0 % Normal 08-28-19 20 [facility] (46898) Comment: Performed By: #### REINIER, C/ MICAELA #### [facility] [address] [place] MCV (RBC) [Entitic vol] 89.1 79.0-98.0 fL Normal 2019 [facility] (64450) Comment: Performed By: #### REINIER, C/ MICAELA #### [facility] [address] [place] Monocytes (Bld) [#/Vol] 0.6 0.0-0.8 10*3/uL Normal 2019 [facility] (14436) Comment: Performed By: #### REINIER C/ MICAELA #### [address] [place] Monocytes/100 WBC (Bld) 6.4 2.0-10.0 % Normal 2019 [facility] (99740) Comment: Performed By: #### REINIER, C/ MICAELA #### [address] [place] Platelet mean volume (Bld) 7.6 7.4-10.4 fL Normal [facility] [Entitic vol] (11115 ) Comment: Performed By: #### REINIER, C/ MICAELA #### [address] [place] Platelets (Bld) [#/Vol] 359 140-440 10*3/uL Normal 2019 [facility] (81622) Comment: Performed By: #### REINIER, C/ MICAELA #### [facility] [address] [place], [place] RBC (Bld) [#/Vol] 2.83 3.80-5.20 10*6/uL Low 08-28-2019 [facility] (79720) Comment: Performed By: #### REINIER, C/ MICAELA #### [address] [place] WBC (Bld) [#/Vol] 9.2 3.6-10.7 10*3/uL Normal 08-28-2019 [facility] (75351) Comment: Performed By: #### REINIER C/ MICAELA #### [facility] [address] [place] [address] basic metabolic panel on 2019-08-28 Anion gap [Moles/Vol] 8 Normal 08-28-19 [facility] (14368) Comment: Performed By: #### REINIER C/ MICAELA #### [facility] [address] [place] [address] Calcium [Mass/Vol] 9.4 8.4-10.4 mg/dL Normal 08-28-2019 [facility] (21169) Comment: Performed By: #### REINIER C/ MICAELA #### [address] [place] [address] CO2 [Moles/Vol] 27 22-30 mmol/L Normal 08-28-2019 [facility] (21834) Comment: Performed By: #### REINIER C/ MICAELA #### [address] [place] [address] Creatinine [Mass/Vol] 0.64 0.52-1.25 mg/dL Normal 08-28-19 [facility] (72412) Comment: Performed By: #### REINIER C/ MICAELA #### [address] [place] [address] GFR/1.73 sq M > 60.0 >60 mL/min/{1.73_m2} Normal 0 [facility] predicted among Syst em (52406) blacks MDRD (S/P/Bld) [Vol rate/Area] Comment: Performed By: #### REINIER C/ MICAELA #### [address] [place] [address] GFR/1.73 sq M > 60.0 >60 mL/min/{1.73_m2} Normal 0 [facility] predicted among Syst em (35771) non-blacks MDRD (S/P/Bld) [Vol rate/Area] Comment: Result Comment: Source- MDRD equation with creatinine calibration to IDMS(NKDEP) eGFR not recommended for nicolas g dose adjustment Performed By: #### Alla HILLS/ MICAELA #### [facility] [address] [place] [address] Glucose [Mass/Vol] 96 70-100 mg/dL Normal 08-28-2019 [facility] (78687) Comment: Performed By: #### Alla HILLS/ MICAELA #### [facility] [address] [place] [address] Urea nitrogen [Mass/Vol] 18 7-20 mg/dL Normal 08-27 [facility] (16263) Comment: Performed By: #### Alla HILLS/ MICAELA #### [facility] [address] [place] Chloride [Moles/Vol] 99 98-107 mmol/L Normal 0 [facility] [employer] [facility] (82603) Comment: Performed By: #### Alla HILLS/ MICAELA #### [facility] [place] [place] Potassium [Moles/Vol] 4.2 3.5-5.1 mmol/L Normal 08-28-19 20 [facility] (78719) Comment: Performed By: #### Alla HILLS/ MICAELA #### [facility] [employer] [address] [place] [address] Sodium [Moles/Vol] 133 135-145 mmol/L Low 08-28-2019 [facility] (94821) Comment: Performed By: #### Alla HILLS/ MICAELA #### [facility] [address] [place] [address] No panel information on 2019-08-28 Anion gap [Moles/Vol] 8 mmol/L 08-28-19 [place] ([address]) Calcium [Mass/Vol] 9.4 8.4 - 10.4 mg/dL 08-28-2019 [place] ([address]) Chloride [Moles/Vol] 99 98 - 107 mmol/L 0 [place] ([address]) CO2 [Moles/Vol] 27 22 - 30 mmol/L 08-28-2019 [place] ([address]) Creatinine [Mass/Vol] 0.64 0.52 - 1.25 mg/dL 2019 [place] ([address]) EGFR IF NonAfrican >60.0 >60 mL/min 08-28-2019 [place] ([address]) Comment: Source- MDRD equation with c reatinine calibration to IDMS(NKDEP) eGFR not recommended for nicolas g dose adjustment GFR/1.73 sq M >60.0 >60 mL/min mL/min/{1.73_m2} 08-28-19 20 [facility] predicted among [facility] blacks MDRD [place] (9249 7) (S/P/Bld) [Vol rate/Area] Glucose [Mass/Vol] 96 70 - 100 mg/dL 08-28-2019 [place] ([address]) Interpretation and Abnormal 08-28-2019 [facility] review of [facility] , laboratory results K Y (41909) Potassium 4.2 3.5 - 5.1 mmol/L 08-28-2019 [facility] [Moles/Vol] [place] ([address]) Sodium [Moles/Vol] 133 135 - 145 mmol/L Low 08-28-2019 [place] ([address]) Urea nitrogen 18 7 - 20 mg/dL 08-28-2019 [facility] [Mass/Vol] [place] ([address]) Test 08-28-2019 [facility] Performed by [facility] (767 22) [facility], [address] [place] [address] Absolute Baso # 0.1 0 - 0.2 10*3/uL 08-28-2019 [place] ([address]) Absolute Neut # 6.3 1.8 - 7 10*3/uL 08-28-2019 [place] ([address]) Basophils/100 WBC 1.1 0 - 2 % 08-28-2019 [facility] (Bld) [place] ([address]) Eosinophils (Bld) 0.3 0 - 0.5 10*3/uL 03-18-2020 [facility] [#/Vol] [place] ([address]) Eosinophils/100 WBC 3.5 1 - 6 % 08-28-2019 [facility] (Bld) [place] ([address]) Erythrocyte 13.9 11.5 - % 08-28-2019 [facility] distribution width [facility].5 [facility] (RBC[facility] [Ratio] [place] (45 237) Granulocytes/100 68.1 40 - 80 % 08-28-2019 [facility] WBC (Bld) [place] ([address]) Hematocrit (Bld) 25.2 35 - 47 % Low 08-28-2019 [facility] [Volume fraction] [place] ([address]) Hemoglobin (Bld) 8.7 11.7 - 16 g/dL Low 08-28-2019 [facility] [Mass/Vol] [place] ([address]) Interpretation and Abnormal 08-28-2019 [facility] , laboratory results K Y (44325) Lymphocytes (Bld) 1.9 1 - 4.3 10*3/uL 08-28-2019 [facility] [#/Vol] [place] ([address]) Lymphocytes/100 WBC 20.9 20 - 40 % 08-28-2019 [facility] (Bld) [place] ([address]) MCH (RBC) [Entitic 30.9 26 - 34 pg 08-28-2019 [facility] mass] [place] ([address]) MCHC (RBC) 34.7 32 - 36 % 08-28-2019 [facility] [Mass/Vol] [place] ([address]) MCV (RBC) [Entitic 89.1 79 - 98 fL 08-28-2019 [facility] vol] [place] ([address]) Monocytes (Bld) 0.6 0 - 0.8 10*3/uL 2020 [facility] [#/Vol] [place] ([address]) Monocytes/100 WBC 6.4 2 - 10 % 08-28-2019 [facility] (Bld) [place] ([address]) Platelet mean 7.6 7.4 - 10.4 fL 08-28-2019 [facility] y volume (Bld) [facility], [Entitic vol] [place] (45 237) Platelets (Bld) 359 140 - 440 10*3/uL 08-28-2019 [facility] [#/Vol] [place] ([address]) RBC (Bld) [#/Vol] 2.83 3.8 - 5.2 10*6/uL Low 08-28-2019 [place] ([address]) WBC (Bld) [#/Vol] 9.2 3.6 - 10.7 10*3/uL 08-28-2019 [place] ([address]) Test 08-28-2019 [facility] Performed by [facility] (452 37) System, [address] [place] [address] vancomycin trough o n 2019-08-27 Vancomycin Trough 12.4 15.0-20.0 ug/mL Low 08-27-2019 [facility] (20452) Comment: Result Comment: . Performed By: #### REINIER C/ MICAELA #### [facility] [address] [place] hemogram w/ autodiff on 2019-08-27 Abs Baso Cnt 0.1 0.0-0.2 10*3/uL Normal 08-27-2019 [facility] (64626) Comment: Performed By: #### REINIER C/ MICAELA #### [address] [place] [address] Abs Neutrophile Cnt 7.3 1.8-7.0 10*3/uL High 08-27-2019 [facility] (45893) Comment: Performed By: #### REINIER C/ MICAELA #### [facility] [address] [place] [address] Basophils/100 WBC (Bld) 0.7 0.0-2.0 % Normal 2019 [facility] (14883) Comment: Performed By: #### REINIER C/ MICAELA #### [facility] [address] [place] Eosinophils (Bld) [#/Vol] 0.3 0.0-0.5 10*3/uL Normal 08-10 [facility] (62567) Comment: Performed By: #### Alla HILLS/ MICAELA #### [facility] [place] [address] Eosinophils/100 WBC (Bld) 3.1 1.0-6.0 % Normal 08-10 [facility] (08842) Comment: Performed By: #### Alla HILLS/ MICAELA #### [address] [place] [address] Erythrocyte distribution 13.7 11.5-14.5 % Normal 08-26 [facility] width (RBC) [Ratio] (41274) Comment: Performed By: #### Alla HILLS/ MICAELA #### [facility] System [facility] [place] [address] Granulocytes/100 WBC (Bld) 70.6 40.0-80.0 % Normal [facility] (32860) Comment: Performed By: #### Alla HILLS/ MICAELA #### [facility] [address] [place] Hematocrit (Bld) [Volume 24.2 35.0-47.0 % Low 08-26 [facility] System fraction] (85850) Comment: Performed By: #### Alla HILLS/ MICAELA #### [address] [place] [address] Hemoglobin (Bld) [Mass/Vol] 8.5 11.7-16.0 g/dL Low [facility] (34701) Comment: Performed By: #### Alla HILLS/ MICAELA #### [facility] E. [place] Lymphocytes (Bld) [#/Vol] 1.9 1.0-4.3 10*3/uL Normal 08-10 [facility] (01832) Comment: Performed By: #### REINIER C/ MICAELA #### [address] [place] [address] Lymphocytes/100 WBC (Bld) 18.7 20.0-40.0 % Low 08-10 [facility] (34079) Comment: Performed By: #### REINIER C/ MICAELA #### [facility] [address] [place] MCH (RBC) [Entitic mass] 31.5 26.0-34.0 pg Normal 08-26 [facility] (71517) Comment: Performed By: #### REINIER C/ MICAELA #### [facility] [address] [place] MCHC (RBC) [Mass/Vol] 35.0 32.0-36.0 % Normal 08-27-19 20 [facility] (05585) Comment: Performed By: #### REINIER C/ MICAELA #### [address] [place] MCV (RBC) [Entitic vol] 90.2 79.0-98.0 fL Normal 2019 [facility] (58859) Comment: Performed By: #### REINIER C/ MICAELA #### [address] [place] Monocytes (Bld) [#/Vol] 0.7 0.0-0.8 10*3/uL Normal 2019 [facility] (76621) Comment: Performed By: #### REINIER C/ MICAELA #### [address] [place] Monocytes/100 WBC (Bld) 6.9 2.0-10.0 % Normal 2019 [facility] (40659) Comment: Performed By: #### REINIER C/ MICAELA #### [facility] [address] [place] Platelet mean volume (Bld) 7.0 7.4-10.4 fL Low [facility] [Entitic vol] (21044 ) Comment: Performed By: #### REINIER C/ MICAELA #### [address] [place] Platelets (Bld) [#/Vol] 327 140-440 10*3/uL Normal 2019 [facility] (33908) Comment: Performed By: #### REINIER, C/ MICAELA #### [facility] [address] [place] RBC (Bld) [#/Vol] 2.69 3.80-5.20 10*6/uL Low 08-27-2019 [facility] (98917) Comment: Performed By: #### REINIER, C/ MICAELA #### [facility] [address] [place] WBC (Bld) [#/Vol] 10.4 3.6-10.7 10*3/uL Normal 08-27-2019 [facility] (57327) Comment: Performed By: #### REINIER, C/ MICAELA #### [address] [place] basic metabolic panel on 2019-08-27 Calcium [Mass/Vol] 9.1 8.4-10.4 mg/dL Normal 08-27-2019 [facility] (27377) Comment: Performed By: #### REINIER C/ MICAELA #### [facility] [address] [place] Anion gap [Moles/Vol] 6 Normal 08-27-19 [facility] (54868) Comment: Performed By: #### REINIER, C/ MICAELA #### [facility] [address] [place] CO2 [Moles/Vol] 29 22-30 mmol/L Normal 08-27-2019 [facility] (32851) Comment: Performed By: #### REINIER, C/ MICAELA #### [facility] [address] [place] Creatinine [Mass/Vol] 0.70 0.52-1.25 mg/dL Normal 08-27-19 [facility] (58981) Comment: Performed By: #### REINIER, C/ MICAELA #### [facility] [address] [place] GFR/1.73 sq M > 60.0 >60 mL/min/{1.73_m2} Normal 0 [facility] among [facility]st em (67793) blacks MDRD (S/P/Bld) [Vol rate/Area] Comment: Performed By: #### Alla HILLS/ MICAELA #### [facility] [address] [place] [address] GFR/1.73 sq M > 60.0 >60 mL/min/{1.73_m2} Normal 0 [facility] predicted among Syst em (34345) non-blacks MDRD (S/P/Bld) [Vol rate/Area] Comment: Result Comment: Source- MDRD equation with creatinine calibration to IDMS(NKDEP) eGFR not recommended for nicolas g dose adjustment Performed By: #### Alla HILLS/ MICAELA #### [facility] [employer] [address] [place] [address] Glucose [Mass/Vol] 92 70-100 mg/dL Normal 08-27-2019 [facility] (53423) Comment: Performed By: #### Alla HILLS/ MICAELA #### [employer] [address] [place] [address] Urea nitrogen [Mass/Vol] 15 7-20 mg/dL Normal 08-26 [facility] (47924) Comment: Performed By: #### Alla HILLS/ MICAELA #### [facility] [address] [place] [address] Chloride [Moles/Vol] 99 98-107 mmol/L Normal 0 [facility] (39562) Comment: Performed By: #### Alla HILLS/ MICAELA #### [employer] [place] [address] Potassium [Moles/Vol] 4.0 3.5-5.1 mmol/L Normal 08-27-19 20 [facility] [employer] (96626) Comment: Performed By: #### Alla HILLS/ MICAELA #### [facility] [facility] [address] [place] [address] Sodium [Moles/Vol] 134 135-145 mmol/L Low 08-27-2019 [facility] (69153) Comment: Performed By: #### Alla HILLS/ MICAELA #### [facility] [employer] [address] [place] [address] No panel information on 2019-08-27 Anion gap [Moles/Vol] 6 mmol/L 08-27-19 20 [place] ([address]) Calcium [Mass/Vol] 9.1 8.4 - 10.4 mg/dL 08-27-2019 [place] ([address]) Chloride [Moles/Vol] 99 98 - 107 mmol/L 0 [place] ([address]) CO2 [Moles/Vol] 29 22 - 30 mmol/L 08-27-2019 [place] ([address]) Creatinine [Mass/Vol] 0.7 0.52 - 1.25 mg/dL 2019 [place] ([address]) EGFR IF NonAfrican >60.0 >60 mL/min 08-27-2019 [place] ([address]) Comment: Source- MDRD equation with c reatinine calibration to IDMS(NKDEP) eGFR not recommended for nicolas g dose adjustment GFR/1.73 sq M >60.0 >60 mL/min mL/min/{1.73_m2} 08-27-19 20 [facility] predicted among [facility], blacks MDRD [place] (6809 7) (S/P/Bld) [Vol rate/Area] Glucose [Mass/Vol] 92 70 - 100 mg/dL 08-27-2019 [place] ([address]) Interpretation and Abnormal 08-27-2019 [facility] review of [facility] , laboratory results K Y (32920) Potassium 4.0 3.5 - 5.1 mmol/L 08-27-2019 [facility] [Moles/Vol] [place] ([address]) Sodium [Moles/Vol] 134 135 - 145 mmol/L Low 08-27-2019 [place] ([address]) Urea nitrogen 15 7 - 20 mg/dL 08-27-2019 [facility] [Mass/Vol] [place] ([address]) Test 08-27-2019 [facility] Performed by [facility], [facility] (617 34) System, [address] [place] [address] Absolute Baso # 0.1 0 - 0.2 10*3/uL 08-27-2019 [place] ([address]) Absolute Neut # 7.3 1.8 - 7 10*3/uL High 08-27-2019 [place] ([address]) Basophils/100 WBC 0.7 0 - 2 % 08-27-2019 [facility] (Bld) [place] ([address]) Eosinophils (Bld) 0.3 0 - 0.5 10*3/uL 08-27-2019 [facility] [#/Vol] [place] ([address]) Eosinophils/100 3.1 1 - 6 % 08-27-2019 [facility] WBC (Bld) [place] ([address]) Erythrocyte 13.7 11.5 - % 08-27-2019 [facility] distribution [facility]5 [facility] ([facility] [Ratio] [place] (45 237) Granulocytes/100 70.6 40 - 80 % 08-27-2019 [facility] WBC (Bld) [place] ([address]) Hematocrit (Bld) 24.2 35 - 47 % Low 08-27-2019 [facility] [Volume fraction] [place] ([address]) Hemoglobin (Bld) 8.5 11.7 - 16 g/dL Low 08-27-2019 [facility] [Mass/Vol] [place] ([address]) Interpretation and Abnormal 08-27-2019 [facility] , laboratory results K Y (82392) Lymphocytes (Bld) 1.9 1 - 4.3 10*3/uL 08-27-2019 [facility] [#/Vol] [place] ([address]) Lymphocytes/100 18.7 20 - 40 % Low 08-27-2019 [facility] WBC (Bld) [place] ([address]) MCH (RBC) [Entitic 31.5 26 - 34 pg 08-27-2019 [facility] mass] [place] ([address]) MCHC (RBC) 35.0 32 - 36 % 08-27-2019 [facility] [Mass/Vol] [place] ([address]) MCV (RBC) [Entitic 90.2 79 - 98 fL 03-17-2020 [facility] vol] [place] ([address]) Monocytes (Bld) 0.7 0 - 0.8 10*3/uL 08-27-2019 [facility] [place] [#/Vol] [place] ([address]) Monocytes/100 WBC 6.9 2 - 10 % 08-27-2019 [facility] (Bld) [place] ([address]) Platelet mean 7.0 7.4 - 10.4 fL Low 08-27-2019 [facility] y volume (Bld) [facility], [Entitic vol] [place] (45 237) Platelets (Bld) 327 140 - 440 10*3/uL 08-27-2019 [facility] [#/Vol] [place] ([address]) RBC (Bld) [#/Vol] 2.69 3.8 - 5.2 10*6/uL Low 08-27-2019 [place] ([address]) WBC (Bld) [#/Vol] 10.4 3.6 - 10.7 10*3/uL 08-27-2019 [place] ([address]) Test 08-27-2019 [facility] Performed by [facility] (452 37) System, [facility] [place] [address] hemogram w/ autodiff on 2019-08-26 Abs Baso Cnt 0.1 0.0-0.2 10*3/uL Normal 08-26-2019 [facility] (67909) Comment: Performed By: #### REINIER C/ MICAELA #### [facility] [address] [place] [address] Abs Neutrophile Cnt 7.4 1.8-7.0 10*3/uL High 08-26-2019 [facility] (40378) Comment: Performed By: #### REINIER C/ MICAELA #### [facility] [address] [place] [address] Basophils/100 WBC (Bld) 0.6 0.0-2.0 % Normal 2019 [facility] (26267) Comment: Performed By: #### REINIER C/ MICAELA #### [facility] [address] [place] Eosinophils (Bld) [#/Vol] 0.4 0.0-0.5 10*3/uL Normal 08-10 [facility] (88136) Comment: Performed By: #### lAla HILLS/ MICAELA #### [address] [place] Eosinophils/100 WBC (Bld) 3.4 1.0-6.0 % Normal 08-10 [facility] (44620) Comment: Performed By: #### Alla HILLS/ MICAELA #### [address] [place] Erythrocyte distribution 14.1 11.5-14.5 % Normal 08-25 [facility] width (RBC) [Ratio] (55775) Comment: Performed By: #### Alla HILLS/ MICAELA #### [address] [place] Granulocytes/100 WBC (Bld) 70.6 40.0-80.0 % Normal [facility] (13382) Comment: Performed By: #### Alla HILLS/ MICAELA #### [address] [place] Hematocrit (Bld) [Volume 24.5 35.0-47.0 % Low 08-25 [facility] fraction] (63242) Comment: Performed By: #### Alla HILLS/ MICAELA #### [address] [place] Hemoglobin (Bld) [Mass/Vol] 8.3 11.7-16.0 g/dL Low [facility] (44038) Comment: Performed By: #### Alla HILLS/ MICAELA #### [address] [place] Lymphocytes (Bld) [#/Vol] 2.0 1.0-4.3 10*3/uL Normal 08-10 [facility] (52450) Comment: Performed By: #### Alla HILLS/ MICAELA #### [facility] [address] [place] [address] Lymphocytes/100 WBC (Bld) 19.3 20.0-40.0 % Low - [facility] (15409) Comment: Performed By: #### Alla HILLS/ MICAELA #### [address] [place] MCH (RBC) [Entitic mass] 30.3 26.0-34.0 pg Normal 08-25 [facility] (29635) Comment: Performed By: #### REINIER C/ MICAELA #### [address] [place] MCHC (RBC) [Mass/Vol] 33.8 32.0-36.0 % Normal 08-26-19 [facility] (06336) Comment: Performed By: #### REINIER C/ MICAELA #### [address] [place] MCV (RBC) [Entitic vol] 89.8 79.0-98.0 fL Normal 2019 [facility] (88995) Comment: Performed By: #### Alla HILLS/ MICAELA #### [address] [place] Monocytes (Bld) [#/Vol] 0.6 0.0-0.8 10*3/uL Normal 2019 [facility] (03267) Comment: Performed By: #### REINIER C/ MICAELA #### [address] [place] Monocytes/100 WBC (Bld) 6.1 2.0-10.0 % Normal 2019 [facility] (83607) Comment: Performed By: #### REINIER C/ MICAELA #### [address] [place] Platelet mean volume (Bld) 7.5 7.4-10.4 fL Normal [facility] [Entitic vol] (50518 ) Comment: Performed By: #### REINIER C/ MICAELA #### [facility] [address] [place] Platelets (Bld) [#/Vol] 311 140-440 10*3/uL Normal 2019 [facility] (44924) Comment: Performed By: #### REINIER C/ MICAELA #### [facility] [address] [place] RBC (Bld) [#/Vol] 2.73 3.80-5.20 10*6/uL Low 08-26-2019 [facility] (82855) Comment: Performed By: #### REINIER C/ MICAELA #### [facility] [address] [place] WBC (Bld) [#/Vol] 10.4 3.6-10.7 10*3/uL Normal 08-26-2019 [facility] (59000) Comment: Performed By: #### REINIER C/ MICAELA #### [address] [place] basic metabolic panel on 2019-08-26 Calcium [Mass/Vol] 9.1 8.4-10.4 mg/dL Normal 08-26-2019 [facility] (06386) Comment: Performed By: #### REINIER C/ MICAELA #### [address] [place] Glucose [Mass/Vol] 91 70-100 mg/dL Normal 08-26-2019 [facility] (29197) Comment: Performed By: #### REINIER C/ MICAELA #### [facility] [address] [place] Anion gap [Moles/Vol] 5 Normal 08-26-19 20 [facility] (49470) Comment: Performed By: #### REINIER C/ MICAELA #### [facility] [address] [place] CO2 [Moles/Vol] 29 22-30 mmol/L Normal 08-26-2019 [facility] (83884) Comment: Performed By: #### CXTIS, C/ MICAELA #### [employer] [address] [place], [place] Creatinine [Mass/Vol] 0.66 0.52-1.25 mg/dL Normal 08-26-19 [facility] (54766) Comment: Performed By: #### Alla HILLS/ MICAELA #### [employer] [address] [place] GFR/1.73 sq M > 60.0 >60 mL/min/{1.73_m2} Normal 0 [employer] predicted among Syst em (86663) blacks MDRD (S/P/Bld) [Vol rate/Area] Comment: Performed By: #### Alla HILLS/ MICAELA #### [employer] [address] [place] GFR/1.73 sq M > 60.0 >60 mL/min/{1.73_m2} Normal 0 [facility] predicted among Syst em (86914) non-blacks MDRD (S/P/Bld) [Vol rate/Area] Comment: Result Comment: Source- MDRD equation with creatinine calibration to IDMS(NKDEP) eGFR not recommended for nicolas g dose adjustment Performed By: #### Alla HILLS/ MICAELA #### [employer] [address] [place] Urea nitrogen [Mass/Vol] 15 7-20 mg/dL Normal 08-25 [facility] (04756) Comment: Performed By: #### Alla HILLS/ MICAELA #### [employer] [address] [place] Chloride [Moles/Vol] 100 98-107 mmol/L Normal 0 [facility] (61099) Comment: Performed By: #### Alla HILLS/ MICAELA #### [employer] [address] [place] Potassium [Moles/Vol] 4.0 3.5-5.1 mmol/L Normal 08-26-19 20 [facility] [employer] (39867) Comment: Performed By: #### Alla HILLS/ MICAELA #### [facility] [address] [place] [address] Sodium [Moles/Vol] 134 135-145 mmol/L Low 08-26-2019 [facility] (19967) Comment: Performed By: #### Alla HILLS/ MICAELA #### [facility] [address] [place] [address] No panel information on 2019-08-26 Interpretation and review Abnormal 08-10 [place] of laboratory results ([address]) Vancomycin Tr 12.4 15 - 20 ug/mL Low 08-26-2019 [place] ([address]) Comment: . Test Performed by 08-26-2019 [place] ([address]) [facility], [address] [place] [address] Anion gap 5 mmol/L 08-26-2019 [facility] [Moles/Vol] [place] ( [address]) Calcium [Mass/Vol] 9.1 8.4 - 10.4 mg/dL 08-26-2019 [place] ([address] 844) Chloride 100 98 - 107 mmol/L 08-26-2019 [facility] [Moles/Vol] [place] ( [address]) CO2 [Moles/Vol] 29 22 - 30 mmol/L 08-26-2019 [place], [place] (10 [address]) Creatinine 0.66 0.52 - 1.25 mg/dL 08-26-2019 [facility] [Mass/Vol] [place], [place] (4 2477) EGFR IF NonAfrican >60.0 >60 mL/min 08-26-2019 [place], [place] (08 625) Comment: Source- MDRD equation with c reatinine calibration to IDMS(NKDEP) eGFR not recommended for nicolas g dose adjustment GFR/1.73 sq M >60.0 >60 mL/min mL/min/{1.73_m2} 08-26-19 20 [facility] predicted among [facility] [place], [facility] MDRD [place] (3227 7) (S/P/Bld) [Vol rate/Area] Glucose [Mass/Vol] 91 70 - 100 mg/dL 08-26-2019 [place] ([address]) Interpretation and Abnormal 08-26-2019 [facility] review of [facility] , laboratory results K Y (25598) Potassium 4.0 3.5 - 5.1 mmol/L 08-26-2019 [facility] [Moles/Vol] [place] ([address]) Sodium [Moles/Vol] 134 135 - 145 mmol/L Low 08-26-2019 [place] ([address]) Urea nitrogen 15 7 - 20 mg/dL 08-26-2019 [facility] [Mass/Vol] [facility] [place] ([address]) Test 08-26-2019 [facility] Performed by [facility] (913 95) [facility], [address] [place] [address] Absolute Baso # 0.1 0 - 0.2 10*3/uL 08-26-2019 [place] ([address]) Absolute Neut # 7.4 1.8 - 7 10*3/uL High 08-26-2019 [place] ([address]) Basophils/100 WBC 0.6 0 - 2 % 08-26-2019 [facility] (Bld) [place] ([address]) Eosinophils (Bld) 0.4 0 - 0.5 10*3/uL 08-26-2019 [facility] [#/Vol] [place] ([address]) Eosinophils/100 3.4 1 - 6 % 08-26-2019 [facility] [facility] WBC (Bld) [place] ([address]) Erythrocyte 14.1 11.5 - % 08-26-2019 [facility] distribution width 14.5 [facility] (RBC) [Ratio] [place] (45 237) Granulocytes/100 70.6 40 - 80 % 08-26-2019 [facility] WBC (Bld) [place] ([address]) Hematocrit (Bld) 24.5 35 - 47 % Low 08-26-2019 [facility] [Volume fraction] [place] ([address]) Hemoglobin (Bld) 8.3 11.7 - 16 g/dL Low 08-26-2019 [facility] [Mass/Vol] [place] ([address]) Interpretation and Abnormal 08-26-2019 [facility] review of [facility] , laboratory results K Y (85852) Lymphocytes (Bld) 2.0 1 - 4.3 10*3/uL 08-26-2019 [facility] [#/Vol] [place] ([address]) Lymphocytes/100 19.3 20 - 40 % Low 08-26-2019 [place] WBC (Bld) [place] ([address]) MCH (RBC) [Entitic 30.3 26 - 34 pg 08-26-2019 [facility] mass] [place] ([address]) MCHC (RBC) 33.8 32 - 36 % 08-26-2019 [facility] [Mass/Vol] [place] ([address]) MCV (RBC) [Entitic 89.8 79 - 98 fL 08-26-2019 [facility] vol] [place] ([address]) Monocytes (Bld) 0.6 0 - 0.8 10*3/uL 08-26-2019 [facility] [place] [#/Vol] [place] ([address]) Monocytes/100 WBC 6.1 2 - 10 % 08-26-2019 [facility] (Bld) [place] ([address]) Platelet mean 7.5 7.4 - 10.4 fL 08-26-2019 [facility] volume (Bld) [facility], [Entitic vol] [place] (45 237) Platelets (Bld) 311 140 - 440 10*3/uL 08-26-2019 [facility] [#/Vol] [place] ([address]) RBC (Bld) [#/Vol] 2.73 3.8 - 5.2 10*6/uL Low 08-26-2019 [place] ([address]) WBC (Bld) [#/Vol] 10.4 3.6 - 10.7 10*3/uL 08-26-2019 [place] ([address]) Test 08-26-2019 [facility] Performed by [facility] (452 37) [facility], [facility] [place] [address] hemogram w/ autodiff on 2019-08-25 Abs Baso Cnt 0.1 0.0-0.2 10*3/uL Normal 08-25-2019 [facility] (93650) Comment: Performed By: #### CXTIS, C/ MICAELA #### [facility] [address] [place] Abs Neutrophile Cnt 5.5 1.8-7.0 10*3/uL Normal 08-25-2019 [facility] (95575) Comment: Performed By: #### Alla HILLS/ MICAELA #### [address] [place] Basophils/100 WBC (Bld) 0.9 0.0-2.0 % Normal 2019 [facility] (15527) Comment: Performed By: #### REINIER C/ MICAELA #### [address] [place] Eosinophils (Bld) [#/Vol] 0.1 0.0-0.5 10*3/uL Normal 08-10 [facility] (61784) Comment: Performed By: #### Alla HILLS/ MICAELA #### [address] [place] Eosinophils/100 WBC (Bld) 1.7 1.0-6.0 % Normal 08-10 [facility] (15703) Comment: Performed By: #### Alla HILLS/ MICAELA #### [address] [place] Erythrocyte distribution 14.0 11.5-14.5 % Normal 08-24 [facility] width (RBC) [Ratio] (81414) Comment: Performed By: #### Alla HILLS/ MICAELA #### [address] [place] Granulocytes/100 WBC (Bld) 65.3 40.0-80.0 % Normal [facility] (03263) Comment: Performed By: #### Alla HILLS/ MICAELA #### [address] [place] Hematocrit (Bld) [Volume 22.9 35.0-47.0 % Low 08-24 [facility] fraction] (64244) Comment: Performed By: #### Alla HILLS/ MICAELA #### [address] [place] Hemoglobin (Bld) [Mass/Vol] 7.8 11.7-16.0 g/dL Low [facility] (59711) Comment: Performed By: #### Alla HILLS/ MICAELA #### [address] [place] Lymphocytes (Bld) [#/Vol] 2.1 1.0-4.3 10*3/uL Normal 08-10 [facility] (29253) Comment: Performed By: #### Alla HILLS/ MICAELA #### [address] [place] Lymphocytes/100 WBC (Bld) 25.1 20.0-40.0 % Normal 08-10 [facility] (41890) Comment: Performed By: #### Alla HILLS/ MICAELA #### [address] [place] MCH (RBC) [Entitic mass] 30.9 26.0-34.0 pg Normal 08-24 [facility] (99285) Comment: Performed By: #### Alla HILLS/ MICAELA #### [address] [place] MCHC (RBC) [Mass/Vol] 34.2 32.0-36.0 % Normal 08-25-19 [facility] (08977) Comment: Performed By: #### Alla HILLS/ MICAELA #### [address] [place] MCV (RBC) [Entitic vol] 90.5 79.0-98.0 fL Normal 2019 [facility] (65617) Comment: Performed By: #### REINIER C/ MICAELA #### [address] [address] [place], [place] Monocytes (Bld) [#/Vol] 0.6 0.0-0.8 10*3/uL Normal 2019 [facility] (98578) Comment: Performed By: #### REINIER C/ MICAELA #### [facility] [address] [place] Monocytes/100 WBC (Bld) 7.0 2.0-10.0 % Normal 2019 [facility] (83254) Comment: Performed By: #### REINIER C/ MICAELA #### [facility] [address] [place] Platelet mean volume (Bld) 7.9 7.4-10.4 fL Normal [facility] [Entitic vol] (21551 ) Comment: Performed By: #### REINIER C/ MICAELA #### [facility] [address] [place], [place] Platelets (Bld) [#/Vol] 287 140-440 10*3/uL Normal 2019 [facility] ([id number]) Comment: Performed By: #### REINIER C/ MICAELA #### [facility] [employer] [place] [address] [address] [place], [place] RBC (Bld) [#/Vol] 2.53 3.80-5.20 10*6/uL Low 08-25-2019 [facility] ([id number]) Comment: Performed By: #### REINIER C/ MICAELA #### [place] [address] [address] [place], [place] WBC (Bld) [#/Vol] 8.4 3.6-10.7 10*3/uL Normal 08-25-2019 [facility] ([id number]) Comment: Performed By: #### REINIER C/ MICAELA #### [facility] [address] [place], [place] basic metabolic panel on 2019-08-25 Anion gap [Moles/Vol] 4 Normal 08-25-19 20 [facility] ([id number]) Comment: Performed By: #### REINIER C/ MICAELA #### [facility] [address] [place], [place] Calcium [Mass/Vol] 8.5 8.4-10.4 mg/dL Normal 08-25-2019 [facility] ([id number]) Comment: Performed By: #### REINIER C/ MICAELA #### [facility] [address] [place], [place] CO2 [Moles/Vol] 28 22-30 mmol/L Normal 08-25-2019 [facility] ([id number]) Comment: Performed By: #### REINIER C/ MICAELA #### [facility] [address] [place], [place] Glucose [Mass/Vol] 92 70-100 mg/dL Normal 08-25-2019 [facility] ([id number]) Comment: Performed By: #### REINIER C/ MICAELA #### [facility] [address] [place], [place] Urea nitrogen [Mass/Vol] 22 7-20 mg/dL High 08-24 [facility] (54892) Comment: Performed By: #### REINIER C/ MICAELA #### [facility] [address] [place], [place] Creatinine [Mass/Vol] 0.75 0.52-1.25 mg/dL Normal 08-25-[address] [place] [address] ([address]885) Comment: Performed By: #### REINIER C/ MICAELA #### [facility] [address] [place], [place] GFR/1.73 sq M > 60.0 >60 mL/min/{1.73_m2} Normal 0 [facility] predicted among Syst em (21904) blacks MDRD (S/P/Bld) [Vol rate/Area] Comment: Performed By: #### REINIER C/ MICAELA #### [facility] [address] [place], [place] GFR/1.73 sq M > 60.0 >60 mL/min/{1.73_m2} Normal 0 [facility] predicted among Syst em (25746) non-blacks MDRD (S/P/Bld) [Vol rate/Area] Comment: Result Comment: Source- MDRD equation with creatinine calibration to IDMS(NKDEP) eGFR not recommended for nicolas g dose adjustment Performed By: #### REINIER C/ MICAELA #### [facility] [address] [place], [place] Potassium [Moles/Vol] 3.7 3.5-5.1 mmol/L Normal 08-25-19 20 [facility] (28230) Comment: Performed By: #### REINIER C/ MICAELA #### [facility] [address] [place], [place] Sodium [Moles/Vol] 134 135-145 mmol/L Low 08-25-2019 [facility] (04248) Comment: Performed By: #### REINIER C/ MICAELA #### [facility] [address] [place] Chloride [Moles/Vol] 101 98-107 mmol/L Normal 0 [facility] (34760) Comment: Performed By: #### REINIER C/ MICAELA #### [facility] [address] [place], [place] No panel information on 2019-08-25 Anion gap [Moles/Vol] 4 mmol/L 08-25-19 20 [place] ([address]) Calcium [Mass/Vol] 8.5 8.4 - 10.4 mg/dL 08-25-2019 [place] ([address]) Chloride [Moles/Vol] 101 98 - 107 mmol/L 0 [place] ([address]) CO2 [Moles/Vol] 28 22 - 30 mmol/L 08-25-2019 [place], [place] ([address]) Creatinine [Mass/Vol] 0.75 0.52 - 1.25 mg/dL 2019 [place] ([address]) EGFR IF NonAfrican >60.0 >60 mL/min 08-25-2019 [place] ([address]) Comment: Source- MDRD equation with c reatinine calibration to IDMS(NKDEP) eGFR not recommended for nicolas g dose adjustment GFR/1.73 sq M >60.0 >60 mL/min mL/min/{1.73_m2} 03-15-20 20 [facility] predicted among [place] - [place], [place] MDRD [place] (4523 7) (S/P/Bld) [Vol rate/Area] Glucose [Mass/Vol] 92 70 - 100 mg/dL 08-25-2019 [place] ([address]) Interpretation and Abnormal 08-25-2019 [facility] review of [facility] , laboratory results K Y (36378) Potassium 3.7 3.5 - 5.1 mmol/L 08-25-2019 [facility] [Moles/Vol] [place] ([address]) Sodium [Moles/Vol] 134 135 - 145 mmol/L Low 08-25-2019 [place] ([address]) Urea nitrogen 22 7 - 20 mg/dL High 08-25-2019 [facility] [Mass/Vol] [place] ([address]) Test 08-25-2019 [facility] Performed by [facility] ([phone]) [facility], [address] [place] [address] Absolute Baso # 0.1 0 - 0.2 10*3/uL 08-25-2019 [place] ([address]) Absolute Neut # 5.5 1.8 - 7 10*3/uL 08-25-2019 [place] ([address]) Basophils/100 WBC 0.9 0 - 2 % 08-25-2019 [facility] (Bld) [place] ([address]) Eosinophils (Bld) 0.1 0 - 0.5 10*3/uL 08-25-2019 [facility] [#/Vol] [place] ([address]) Eosinophils/100 1.7 1 - 6 % 08-25-2019 [facility] WBC (Bld) [place] ([address]) Erythrocyte 14.0 11.5 - % 08-25-2019 [facility] distribution width [facility].5 [facility], (RBC) [Ratio] [place] (45 237) Granulocytes/100 65.3 40 - 80 % 08-25-2019 [facility] WBC (Bld) [place] ([address]) Hematocrit (Bld) 22.9 35 - 47 % Low 08-25-2019 [facility] [Volume fraction] [place] ([address]) Hemoglobin (Bld) 7.8 11.7 - 16 g/dL Low 08-25-2019 [facility] [Mass/Vol] [place] ([address]) Interpretation and Abnormal 08-25-2019 [facility] review of [facility] , laboratory results K Y (43433) Lymphocytes (Bld) 2.1 1 - 4.3 10*3/uL 08-25-2019 [facility] [#/Vol] [place] ([address]) Lymphocytes/100 25.1 20 - 40 % 08-25-2019 [facility] [facility] WBC (Bld) [place] ([address]) MCH (RBC) [Entitic 30.9 26 - 34 pg 08-25-2019 [facility] mass] [place] ([address]) MCHC (RBC) 34.2 32 - 36 % 08-25-2019 [facility] [Mass/Vol] [place] ([address]) MCV (RBC) [Entitic 90.5 79 - 98 fL 08-25-2019 [facility] vol] [place] ([address]) Monocytes (Bld) 0.6 0 - 0.8 10*3/uL 08-25-2019 [facility] [#/Vol] [place] ([address]) Monocytes/100 WBC 7.0 2 - 10 % 08-25-2019 [facility] (Bld) [place] ([address]) Platelet mean 7.9 7.4 - 10.4 fL 08-25-2019 [facility] volume (Bld) [facility], [Entitic vol] [place] (45 237) Platelets (Bld) 287 140 - 440 10*3/uL 08-25-2019 D[facility] cy [#/Vol] [place] ([address]) RBC (Bld) [#/Vol] 2.53 3.8 - 5.2 10*6/uL Low 08-25-2019 [place] ([address]) WBC (Bld) [#/Vol] 8.4 3.6 - 10.7 10*3/uL 08-25-2019 [place] ([address]) Test 08-25-2019 [facility] Performed by [facility] ([phone]) [address] [address] op note on Op Note PATIENT: DENYS ARRIOLA Normal 2019 [facility] ([id number]) ADMISSION DATE: 08/14/2019 SURGERY DATE: 08/24/2019 DATE [...] stable condition without complication. Diskriter Job ID: [id number] Deon Davila MD DOD:08/24/2019 11:31 A EM/dsk DOT:08/24/2019 12:13 P Job Number: [id number] Document Number: [id number] cc: Deon Davila MD [address] [place] [address] [place] [address] hemogram w/ autodiff on 2019-08-24 Abs Baso Cnt 0.0 0.0-0.2 10*3/uL Normal 08-24-2019 [facility] (08280) Comment: Performed By: #### CXTIS ### # [address] [place], [place] [facility] [place], [place] #### C/MICAELA #### [address] [address] [place], [place] Abs Neutrophile Cnt 12.0 1.8-7.0 10*3/uL High 08-24-2019 [facility] (06144) Comment: Performed By: #### CXTIS ### # [address] [address] [place] [facility] [place], [place] #### C/MICAELA #### [address] Basophils/100 WBC (Bld) 0.1 0.0-2.0 % Normal 2019 [facility] (49917) Comment: Performed By: #### CXTIS ### # [address] [place] [facility] [place] #### C/MICAELA #### [address] Eosinophils (Bld) [#/Vol] 0.0 0.0-0.5 10*3/uL Normal 08-10 [facility] (05902) Comment: Performed By: #### CXTIS ### # [facility] [address] [place] [facility] [address] [place] #### C/MICAELA #### [facility] [address] [place] Eosinophils/100 WBC (Bld) 0.3 1.0-6.0 % Low 08-10 [facility] (27013) Comment: Performed By: #### CXTIS ### # [facility] [address] [place] [facility] [address] [place] #### C/MICAELA #### [facility] [address] [place] Erythrocyte distribution 13.5 11.5-14.5 % Normal 08-23 [facility] width (RBC) [Ratio] (12710) Comment: Performed By: #### CXTIS ### # [facility] [address] [place] [facility] [address] [place] #### C/MICAELA #### [facility] [address] [place] Granulocytes/100 WBC (Bld) 92.5 40.0-80.0 % High [facility] (25631) Comment: Performed By: #### CXTIS ### # [facility] [address] [place] [facility] [address] [place] #### C/MICAELA #### [facility] [address] [place] Hematocrit (Bld) [Volume 25.8 35.0-47.0 % Low 08-23 [facility] fraction] (93104) Comment: Performed By: #### CXTIS ### # [facility] [address] [place] [facility] [address] [place] #### C/MICAELA #### [facility] [address] [place] Hemoglobin (Bld) [Mass/Vol] 8.9 11.7-16.0 g/dL Low [facility] (04847) Comment: Performed By: #### CXTIS ### # [facility] [address] [place] [facility] [address] [place] #### C/MICAELA #### [facility] [address] [place] Lymphocytes (Bld) [#/Vol] 0.6 1.0-4.3 10*3/uL Low 08-10 [facility] (41085) Comment: Performed By: #### CXTIS ### # [facility] [address] [place] [facility] [address] [place] #### C/MICAELA #### [facility] [address] [place] Lymphocytes/100 WBC (Bld) 4.6 20.0-40.0 % Low 08-10 [facility] (99097) Comment: Performed By: #### CXTIS ### # [facility] [address] [place] [facility] [address] [place] #### C/MICAELA #### [facility] [address] [place] MCH (RBC) [Entitic mass] 30.8 26.0-34.0 pg Normal 08-23 [facility] (69752) Comment: Performed By: #### CXTIS ### # [facility] [address] [place] [facility] [address] [place] #### C/MICAELA #### [facility] [address] [place] MCHC (RBC) [Mass/Vol] 34.5 32.0-36.0 % Normal 08-24-19 20 [facility] (23828) Comment: Performed By: #### CXTIS ### # [facility] [address] [place] [facility] [address] [place] #### C/MICAELA #### [facility] [address] [place] MCV (RBC) [Entitic vol] 89.2 79.0-98.0 fL Normal 2019 [facility] (89908) Comment: Performed By: #### CXTIS ### # [facility] [address] [place] [facility] [address] [place] #### C/MICAELA #### [facility] [address] [place] Monocytes (Bld) [#/Vol] 0.3 0.0-0.8 10*3/uL Normal 2019 [facility] (83563) Comment: Performed By: #### CXTIS ### # [facility] [address] [place] [facility] [address] [place] #### C/MICAELA #### [facility] [address] [place] Monocytes/100 WBC (Bld) 2.5 2.0-10.0 % Normal 2019 [facility] (88834) Comment: Performed By: #### CXTIS ### # [facility] [address] [place] [facility] [address] [place] #### C/MICAELA #### [facility] [address] [place] Platelet mean volume (Bld) 7.1 7.4-10.4 fL Low [facility] [Entitic vol] (40954 ) Comment: Performed By: #### CXTIS ### # [facility] [address] [place] [facility] [address] [place] #### C/MICAELA #### [facility] [address] [place] Platelets (Bld) [#/Vol] 327 140-440 10*3/uL Normal 2019 [facility] (53307) Comment: Performed By: #### CXTIS ### # [facility] [address] [place] [facility] [address] [place] #### C/MICAELA #### [facility] [address] [place] RBC (Bld) [#/Vol] 2.90 3.80-5.20 10*6/uL Low 08-24-2019 [facility] (87341) Comment: Performed By: #### CXTIS ### # [facility] [address] [place] [facility] [address] [place] #### C/MICAELA #### [facility] [address] [facility], [place] WBC (Bld) [#/Vol] 13.0 3.6-10.7 10*3/uL High 08-24-2019 [facility] (95431) Comment: Performed By: #### CXTIS ### # [facility] [address] [place] [facility] [address] [facility], [place] #### C/MICAELA #### [facility] [address] [facility], [place] basic metabolic panel on 2019-08-24 Calcium [Mass/Vol] 9.3 8.4-10.4 mg/dL Normal 08-24-2019 [facility] (76206) Comment: Performed By: #### CXTIS ### # [facility] [address] [place] [facility] [address] [place] #### C/MICAELA #### [facility] [address] [place] Anion gap [Moles/Vol] 6 Normal 08-24-19 [facility] (09471) Comment: Performed By: #### CXTIS ### # [facility] [address] [place] [facility] [address] [place] #### C/MICAELA #### [facility] [address] [place] CO2 [Moles/Vol] 27 22-30 mmol/L Normal 08-24-2019 [facility] (51814) Comment: Performed By: #### CXTIS ### # [facility] [address] [place] [facility] [address] [facility] #### C/MICAELA #### [facility] [address] [place] Creatinine [Mass/Vol] 0.64 0.52-1.25 mg/dL Normal 08-24-19 [facility] (77672) Comment: Performed By: #### CXTIS ### # [facility] [address] [facility], [place] [facility] [address] [facility] #### C/MICAELA #### [facility] [address] [facility], [place] GFR/1.73 sq M > 60.0 >60 mL/min/{1.73_m2} Normal 0 [facility] predicted among Syst em (84737) blacks MDRD (S/P/Bld) [Vol rate/Area] Comment: Performed By: #### CXTIS ### # [facility] [address] [place] [facility] [address] [place] #### C/MICAELA #### [facility] [address] [place] GFR/1.73 sq M > 60.0 >60 mL/min/{1.73_m2} Normal 0 [facility] predicted among Syst em (37788) non-blacks MDRD (S/P/Bld) [Vol rate/Area] Comment: Result Comment: Source- MDRD equation with creatinine calibration to IDMS(NKDEP) eGFR not recommended for nicolas g dose adjustment Performed By: #### CXTIS ### # [employer] [facility] [address] [place] [facility] [address] [place] #### C/MICAELA #### [facility] [address] [place] Glucose [Mass/Vol] 115 70-100 mg/dL High 08-24-2019 [facility] (32464) Comment: Performed By: #### CXTIS ### # [employer] [address] [place] [facility] [address] [place] #### C/MICAELA #### [facility] [address] [place] Urea nitrogen [Mass/Vol] 16 7-20 mg/dL Normal 08-23 [facility] (18377) Comment: Performed By: #### CXTIS ### # [facility] [address] [place] [facility] [address] [place] #### C/MICAELA #### [facility] [address] [place] Chloride [Moles/Vol] 99 98-107 mmol/L Normal 0 [facility] (67083) Comment: Performed By: #### CXTIS ### # [facility] [address] [place] [facility] [address] [place] #### C/MICAELA #### [facility] [address] [place] Potassium [Moles/Vol] 4.5 3.5-5.1 mmol/L Normal 08-24-19 20 [facility] (38339) Comment: Performed By: #### CXTIS ### # [facility] [address] [place] [facility] [address] [place] #### C/MICAELA #### [facility] [address] [place] Sodium [Moles/Vol] 132 135-145 mmol/L Low 08-24-2019 [facility] (91829) Comment: Performed By: #### CXTIS ### # [facility] [address] [place] [facility] [address] [place] #### C/MICAELA #### [employer] [address] [place] No panel information on 2019-08-24 Anion gap [Moles/Vol] 6 mmol/L 08-24-19 20 [facility] [place] ([address]) Calcium [Mass/Vol] 9.3 8.4 - 10.4 mg/dL 08-24-2019 [place] ([address]) Chloride [Moles/Vol] 99 98 - 107 mmol/L 0 [facility] [place] ([address]) CO2 [Moles/Vol] 27 22 - 30 mmol/L 08-24-2019 [facility] [place] ([address]) Creatinine [Mass/Vol] 0.64 0.52 - 1.25 mg/dL 2019 [place] ([address]) EGFR IF NonAfrican >60.0 >60 mL/min 08-24-2019 [place] ([address]) Comment: Source- MDRD equation with c reatinine calibration to IDMS(NKDEP) eGFR not recommended for nicolas g dose adjustment GFR/1.73 sq M >60.0 >60 mL/min mL/min/{1.73_m2} 08-24-19 20 [facility] predicted among [place], [place] MDRD [place] (4423 7) (S/P/Bld) [Vol rate/Area] Glucose [Mass/Vol] 115 70 - 100 mg/dL High 08-24-2019 [place] ([address]) Interpretation and Abnormal 08-24-2019 [facility] review of [facility] , laboratory results K Y (96315) Potassium 4.5 3.5 - 5.1 mmol/L 08-24-2019 [facility] [Moles/Vol] [place] ([address]) Sodium [Moles/Vol] 132 135 - 145 mmol/L Low 08-24-2019 [place] ([address]) Urea nitrogen 16 7 - 20 mg/dL 08-24-2019 [facility] [Mass/Vol] [place] ([address]) Test 08-24-2019 [facility] Performed by [facility] ([phone] 60) [facility], [address] [place] [address] Absolute Baso # 0.0 0 - 0.2 10*3/uL 08-24-2019 [place] ([address]) Absolute Neut # 12.0 1.8 - 7 10*3/uL High 08-24-2019 [place] ([address]) Basophils/100 WBC 0.1 0 - 2 % 08-24-2019 [facility] (Bld) [place] ([address]) Eosinophils (Bld) 0.0 0 - 0.5 10*3/uL 08-24-2019 [facility] [#/Vol] [place] ([address]) Eosinophils/100 0.3 1 - 6 % Low 08-24-2019 [facility] WBC (Bld) [place] ([address]) Erythrocyte 13.5 11.5 - % 08-24-2019 [facility] distribution width 14.5 [facility], (RBC) [Ratio] [place] (45 237) Granulocytes/100 92.5 40 - 80 % High 08-24-2019 [facility] WBC (Bld) [place] ([address]) Hematocrit (Bld) 25.8 35 - 47 % Low 08-24-2019 [facility] [Volume fraction] [place] ([address]) Hemoglobin (Bld) 8.9 11.7 - 16 g/dL Low 08-24-2019 [facility] [Mass/Vol] [place] ([address]) Interpretation and Abnormal 08-24-2019 [facility] , laboratory results K Y (13627) Lymphocytes (Bld) 0.6 1 - 4.3 10*3/uL Low 08-24-2019 [facility] [#/Vol] [place] ([address]) Lymphocytes/100 4.6 20 - 40 % Low 08-24-2019 [facility] WBC (Bld) [place] ([address]) MCH (RBC) [Entitic 30.8 26 - 34 pg 08-24-2019 [facility] mass] [place] ([address]) MCHC (RBC) 34.5 32 - 36 % 08-24-2019 [facility] [Mass/Vol] [facility] [place] (28443) MCV (RBC) [Entitic 89.2 79 - 98 fL 08-24-2019 [facility] vol] [place] ([address]) Monocytes (Bld) 0.3 0 - 0.8 10*3/uL 08-24-2019 [facility] [#/Vol] [place] ([address]) Monocytes/100 WBC 2.5 2 - 10 % 08-24-2019 [facility] (Bld) [place] ([address]) Platelet mean 7.1 7.4 - 10.4 fL Low 08-24-2019 [facility] volume (Bld) [facility], [Entitic vol] [place] (45 237) Platelets (Bld) 327 140 - 440 10*3/uL 08-24-2019 [facility] [#/Vol] [place] ([address]) RBC (Bld) [#/Vol] 2.90 3.8 - 5.2 10*6/uL Low 08-24-2019 [place] ([address]) WBC (Bld) [#/Vol] 13.0 3.6 - 10.7 10*3/uL High 08-24-2019 [place] ([address]) Test 08-24-2019 [facility] Performed by [facility] (452 37) System, [address] [place] [address] vancomycin trough o n 2019-08-23 Vancomycin Trough 13.6 15.0-20.0 ug/mL Low 08-23-2019 [facility] (35089) Comment: Result Comment: . Performed By: #### CXTIS ### # [facility] [address] [place] [address] [facility] [address] [place], [place] [id number] #### C/MICAELA #### [address] [address] [place] [address] ts gel on 2019-08-11 3 TS GEL ABO Group: Normal 08-23-2019 [facility] (47084) B Rh, Gel: POS Antibody Screen Gel: NEG Comment: Performed By: #### CXTIS ### # [facility] [address] [place] [address] [facility] [address] [place], [place] [id number] #### C/MICAELA #### [address] [address] [place] [address] op note on Op Note [facility] Normal 08-10 [facility] (57079) [address] [facility] [address] Dept: [phone] Loc: [phone] Operative Report Patient Name: Denys Arriola Date of : 1985 Date of Surgery: 08/23/19 Location: [facility] Preoperative Diagnosis: 1. Osteoarthritis infected hardware [...] patient's ASA was verified by the nurse systems analyst developer and the anesthesia staff. Fire risk was assessed. The left lower extremity fla p had an audible Doppler signal at the skin paddle. A 4 cm diameter lumbee around the Doppler signal was made an d the flap was defatted of both deep suprafascial and superficial fat leavi ng 5 mm of subcutaneous fat on the skin portion.Deep to the fat t he wound was copiously irrigated out. The previously placed [place] drain was rem luis m. The Doppler [...] Baso Cnt 0.0 0.0-0.2 10*3/uL Normal 08-23-2019 [facility] (55710) Comment: Performed By: #### CXTIS ### # [facility] [place] [address] [address] [place] [facility] [place] #### C/MICAELA #### [address] [address] [place] Abs Neutrophile Cnt 5.4 1.8-7.0 10*3/uL Normal 08-23-2019 [facility] (90199) Comment: Performed By: #### CXTIS ### # [facility] [address] [place] [facility] [facility] [place], [place] #### C/MICAELA #### [address] Basophils/100 WBC (Bld) 0.3 0.0-2.0 % Normal 2019 [facility] (22205) Comment: Performed By: #### CXTIS ### # [facility] [address] [place] [facility] [address] [place] #### C/MICAELA #### [facility] [address] [place], [place] Eosinophils (Bld) [#/Vol] 0.3 0.0-0.5 10*3/uL Normal 08-10 [facility] ([id number]) Comment: Performed By: #### CXTIS ### # [facility] [address] [place] [facility] [address] [place] #### C/MICAELA #### [facility] [address] [place] Eosinophils/100 WBC (Bld) 3.8 1.0-6.0 % Normal 08-10 [facility] ([id number]) Comment: Performed By: #### CXTIS ### # [facility] [address] [place] [facility] [address] [place] #### C/MICALEA #### [facility] [address] [place] Erythrocyte distribution 13.5 11.5-14.5 % Normal 08-22 [facility] width (RBC) [Ratio] ([id number]) Comment: Performed By: #### CXTIS ### # [facility] [address] [place] [facility] [address] [place] #### C/MICAELA #### [facility] [address] [place] Granulocytes/100 WBC (Bld) 68.3 40.0-80.0 % Normal [facility] (11059) Comment: Performed By: #### CXTIS ### # [facility] [address] [place] [facility] [address] [place] #### C/MICAELA #### [facility] [address] [place] Hematocrit (Bld) [Volume 27.7 35.0-47.0 % Low 08-22 [facility] fraction] ([id number]) Comment: Performed By: #### CXTIS ### # [facility] [address] [place] [facility] [address] [place] #### C/MICAELA #### [facility] [address] [place] Hemoglobin (Bld) [Mass/Vol] 9.7 11.7-16.0 g/dL Low [facility] (93741) Comment: Performed By: #### CXTIS ### # [facility] [address] [place] [facility] [address] [place] #### C/MICAELA #### [facility] [address] [place] Lymphocytes (Bld) [#/Vol] 1.6 1.0-4.3 10*3/uL Normal 08-10 [facility] ([id number]) Comment: Performed By: #### CXTIS ### # [facility] [address] [place] [facility] [address] [place] #### C/MICAELA #### [facility] [address] [place] Lymphocytes/100 WBC (Bld) 19.8 20.0-40.0 % Low 08-10 [facility] ([id number]) Comment: Performed By: #### CXTIS ### # [facility] [address] [place] [facility] [address] [place] #### C/MICAELA #### [facility] [address] [place] MCH (RBC) [Entitic mass] 30.9 26.0-34.0 pg Normal 08-22 [facility] ([id number]) Comment: Performed By: #### CXTIS ### # [facility] [address] [place] [facility] [address] [place] #### C/MICAELA #### [place] [address] [address] [place], [place] MCHC (RBC) [Mass/Vol] 34.9 32.0-36.0 % Normal 08-23-19 20 [facility] (46737) Comment: Performed By: #### CXTIS ### # [place] [address] [place] [facility] [address] [place] #### C/MICAELA #### [place] [address] [address] [place] MCV (RBC) [Entitic vol] 88.7 79.0-98.0 fL Normal 2019 [facility] (24423) Comment: Performed By: #### CXTIS ### # [facility] [address] [place] [facility] [address] [place] #### C/MICAELA #### [place] [address] [address] [place] Monocytes (Bld) [#/Vol] 0.6 0.0-0.8 10*3/uL Normal 2019 [facility] ([id number]) Comment: Performed By: #### CXTIS ### # [place] [address] [place] [facility] [address] [place] #### C/MICAELA #### [place] [address] [place] Monocytes/100 WBC (Bld) 7.8 2.0-10.0 % Normal 2019 [facility] (22059) Comment: Performed By: #### CXTIS ### # [facility] [address] [place] [facility] [address] [place] #### C/MICAELA #### [facility] [address] [place] Platelet mean volume (Bld) 7.2 7.4-10.4 fL Low [facility] [Entitic vol] ([id number] ) Comment: Performed By: #### CXTIS ### # [facility] [address] [place] [facility] [address] [place] #### C/MICAELA #### [facility] [address] [place] Platelets (Bld) [#/Vol] 291 140-440 10*3/uL Normal 2019 [facility] (27977) Comment: Performed By: #### CXTIS ### # [facility] [address] [place] [facility] [address] [place] #### C/MICAELA #### [facility] [address] [place] RBC (Bld) [#/Vol] 3.13 3.80-5.20 10*6/uL Low 08-23-2019 [facility] (19882) Comment: Performed By: #### CXTIS ### # [facility] [address] [place] [facility] [address] [place] #### C/MICAELA #### [facility] [address] [place] WBC (Bld) [#/Vol] 7.9 3.6-10.7 10*3/uL Normal 08-23-2019 [facility] ([id number]) Comment: Performed By: #### CXTIS ### # [facility] [address] [place] [address] [facility] [address] [place], [place] [id number] #### C/MICAELA #### [facility] [address] [place] [address] No panel information on 2019-08-23 Interpretation and review Abnormal 08-10 [place], [place] of laboratory results ([id number]) Vancomycin Tr 13.6 15 - 20 ug/mL Low 08-23-2019 [place] ([address]) Comment: . Test Performed 08-23-2019 [facility] ([address]) System, [facility] [place] [address] Absolute Baso # 0.0 0 - 0.2 10*3/uL 08-23-2019 [place], [place] (45 [address]) Absolute Neut # 5.4 1.8 - 7 10*3/uL 08-23-2019 [place], [place] (45 237) Basophils/100 WBC 0.3 0 - 2 % 08-23-2019 [facility]- (Bld) [place], [place] (45 237) Eosinophils (Bld) 0.3 0 - 0.5 10*3/uL 08-23-2019 [facility]- [#/Vol] [place], [place] (45 237) Eosinophils/100 WBC 3.8 1 - 6 % 08-23-2019 [facility]- (Bld) [place], [place] (45 237) Erythrocyte 13.5 11.5 - % 08-23-2019 [facility] distribution width 14.5 [place] ([address]) (RBC) [Ratio] Granulocytes/100 WBC 68.3 40 - 80 % 0 [facility]- (Bld) [place], [place] (45 237) Hematocrit (Bld) 27.7 35 - 47 % Low 08-23-2019 [facility]- [Volume fraction] [place] ([address]) Hemoglobin (Bld) 9.7 11.7 - 16 g/dL Low 08-23-2019 [facility]- [Mass/Vol] [place], [place] ([id number] 3005) Interpretation and Abnormal 08-23-2019 [facility]- review of laboratory LAMAR[place] ([id number]) results Lymphocytes (Bld) 1.6 1 - 4.3 10*3/uL 08-23-2019 [facility]- [#/Vol] [place] (45 237) Lymphocytes/100 WBC 19.8 20 - 40 % Low 08-23-2019 [facility]- (Bld) [place] (45 237) MCH (RBC) [Entitic 30.9 26 - 34 pg 08-23-2019 [facility]- mass] [place] (45 237) MCHC (RBC) [Mass/Vol] 34.9 32 - 36 % 08-23-19 20 [facility] [place] (45 237) MCV (RBC) [Entitic 88.7 79 - 98 fL 08-23-2019 [facility]- vol] [place] (45 237) Monocytes (Bld) 0.6 0 - 0.8 10*3/uL 08-23-2019 [facility]- [#/Vol] [place] (45 237) Monocytes/100 WBC 7.8 2 - 10 % 08-23-2019 [facility]- (Bld) [place] (45 237) Platelet mean volume 7.2 7.4 - 10.4 fL Low 08-23-19 20 [facility]- (Bld) [Entitic vol] [place] (95087) Platelets (Bld) 291 140 - 440 10*3/uL 08-23-2019 [facility]- [#/Vol] [place] (45 237) RBC (Bld) [#/Vol] 3.13 3.8 - 5.2 10*6/uL Low 08-23-2019 [facility] [place] (45 237) WBC (Bld) [#/Vol] 7.9 3.6 - 10.7 10*3/uL 08-23-2019 [place], [place] (45 237) Test Performed 08-23-2019 [facility]- by [facility] LAMARLENY ([id number]) [facility], [address] [place] [id number] vancomycin trough o n 2019-08-22 Vancomycin Trough 13.4 15.0-20.0 ug/mL Low 08-22-2019 [place] [facility] ([id number]) Comment: Result Comment: . Performed By: #### CXTIS ### # [facility] [address] [place] [facility] [address] [place] #### C/MICAELA #### [facility] [address] [place] hemogram w/ autodiff on 2019-08-22 Abs Baso Cnt 0.1 0.0-0.2 10*3/uL Normal 08-22-2019 [facility] ([id number]) Comment: Performed By: #### CXTIS ### # [facility] [address] [place] [facility] [address] [place] #### C/MICAELA #### [facility] [address] [place] Abs Neutrophile Cnt 4.4 1.8-7.0 10*3/uL Normal 08-22-2019 [facility] ([id number]) Comment: Performed By: #### CXTIS ### # [facility] [address] [place] [facility] [address] [place] #### C/MICAELA #### [facility] [address] [place] Basophils/100 WBC (Bld) 0.8 0.0-2.0 % Normal 2019 [facility] (58452) Comment: Performed By: #### CXTIS ### # [facility] [address] [place] [facility] [address] [place] #### C/MICAELA #### [facility] [address] [place] Eosinophils (Bld) [#/Vol] 0.4 0.0-0.5 10*3/uL Normal 08-10 [facility] ([id number]) Comment: Performed By: #### CXTIS ### # [facility] [address] [place] [facility] [address] [place] #### C/MICAELA #### [facility] [address] [place] Eosinophils/100 WBC (Bld) 5.3 1.0-6.0 % Normal 08-10 [facility] (28306) Comment: Performed By: #### CXTIS ### # [facility] [address] [place] [facility] [address] [place] #### C/MICAELA #### [facility] [address] [place] Erythrocyte distribution 13.7 11.5-14.5 % Normal 08-21 [facility] width (RBC) [Ratio] (44216) Comment: Performed By: #### CXTIS ### # [facility] [address] [place] [facility] [address] [place] #### C/MICAELA #### [facility] [address] [place] Granulocytes/100 WBC (Bld) 59.9 40.0-80.0 % Normal [facility] (41540) Comment: Performed By: #### CXTIS ### # [facility] [address] [place] [facility] [address] [place] #### C/MICAELA #### [facility] [address] [place] Hematocrit (Bld) [Volume 28.2 35.0-47.0 % Low 08-21 [facility] fraction] ([id number]) Comment: Performed By: #### CXTIS ### # [facility] [address] [place] [facility] [address] [place] #### C/MICAELA #### [facility] [address] [place] Hemoglobin (Bld) [Mass/Vol] 9.7 11.7-16.0 g/dL Low [facility] (11077) Comment: Performed By: #### CXTIS ### # [facility] [address] [place] [facility] [address] [place] #### C/MICAELA #### [facility] [address] [place] Lymphocytes (Bld) [#/Vol] 2.0 1.0-4.3 10*3/uL Normal 08-10 [facility] (61984) Comment: Performed By: #### CXTIS ### # [facility] [address] [place] [facility] [address] [place] #### C/MICAELA #### [facility] [address] [place] Lymphocytes/100 WBC (Bld) 26.8 20.0-40.0 % Normal 08-10 [facility] (07433) Comment: Performed By: #### CXTIS ### # [facility] [address] [place] [facility] [address] [place] #### C/MICAELA #### [facility] [address] [place] MCH (RBC) [Entitic mass] 30.9 26.0-34.0 pg Normal 08-21 [facility] (25226) Comment: Performed By: #### CXTIS ### # [facility] [address] [place] [facility] [address] [place] #### C/MICAELA #### [facility] [address] [place] MCHC (RBC) [Mass/Vol] 34.4 32.0-36.0 % Normal 08-22-19 20 [facility] (35660) Comment: Performed By: #### CXTIS ### # [facility] [address] [place] [facility] [address] [place] #### C/MICAELA #### [facility] [address] [place] MCV (RBC) [Entitic vol] 89.8 79.0-98.0 fL Normal 2019 [facility] (52296) Comment: Performed By: #### CXTIS ### # [facility] [address] [place] [facility] [address] [place] #### C/MICAELA #### [facility] [address] [place] Monocytes (Bld) [#/Vol] 0.5 0.0-0.8 10*3/uL Normal 2019 [facility] (71792) Comment: Performed By: #### CXTIS ### # [facility] [address] [place] [facility] [address] [place] #### C/MICAELA #### [facility] [address] [place] Monocytes/100 WBC (Bld) 7.2 2.0-10.0 % Normal 2019 [facility] (85098) Comment: Performed By: #### CXTIS ### # [facility] [address] [place] [facility] [address] [place] #### C/MICAELA #### [facility] [address] [place] Platelet mean volume (Bld) 8.1 7.4-10.4 fL Normal [facility] [Entitic vol] (21423 ) Comment: Performed By: #### CXTIS ### # [facility] [address] [place] [facility] [address] [place] #### C/MICAELA #### [facility] [address] [place] Platelets (Bld) [#/Vol] 306 140-440 10*3/uL Normal 2019 [facility] ([id number]) Comment: Performed By: #### CXTIS ### # [facility] [address] [place] [facility] [address] [place] #### C/MICAELA #### [facility] [address] [place] RBC (Bld) [#/Vol] 3.14 3.80-5.20 10*6/uL Low 08-22-2019 [facility] (81067) Comment: Performed By: #### CXTIS ### # [facility] [address] [place] [facility]alt System [facility] [address] [place] #### C/MICAELA #### [facility] [address] [place] WBC (Bld) [#/Vol] 7.4 3.6-10.7 10*3/uL Normal 08-22-2019 [facility] (30604) Comment: Performed By: #### CXTIS ### # [facility] [address] [place] [facility] System [address] [place] #### C/MICAELA #### [facility] [address] [place] No panel information on 2019-08-22 Sodium [Moles/Vol] NEG mmol/L 08-22-2019 [facility] [place] ([address]) Comment: Test Performed by [facility], [facility] [address] [place], [place] Sodium [Moles/Vol] POS mmol/L 08-22-2019 [place], [place] ([address]) Comment: Test Performed by [facility], [address] [place] [address] Sodium [Moles/Vol] B 08-22-2019 [place], [place] (57 [address]89) Test Performed by 08-22-2019 [facility] ([address]) System, [address] [place] [address] Interpretation and Abnormal 08-22-2019 [facility]- review of laboratory [place] ([address]) results Vancomycin Tr 13.4 15 - 20 ug/mL Low 08-22-2019 [place], [place] (18 086) Comment: . Test Performed 08-22-2019 [facility] [place] ([address]) System, [address] [place] [address] Absolute Baso # 0.1 0 - 0.2 10*3/uL 08-22-2019 [place], [place] (89 [address]) Absolute Neut # 4.4 1.8 - 7 10*3/uL 08-22-2019 [place], [place] (79 237) Basophils/100 WBC 0.8 0 - 2 % 08-22-2019 [facility]- (Bld) [place], [place] (08 237) Eosinophils (Bld) 0.4 0 - 0.5 10*3/uL 08-22-2019 [facility]- [#/Vol] [place], [place] (29 [address]) Eosinophils/100 WBC 5.3 1 - 6 % 08-22-2019 [facility]- (Bld) [place], [place] (45 [address]) Erythrocyte 13.7 11.5 - % 08-22-2019 [facility] ealth- distribution width 14.5 [place] ([address]) (RBC) [Ratio] Granulocytes/100 WBC 59.9 40 - 80 % 0 [facility]- (Bld) [place], [place] (95 [address]) Hematocrit (Bld) 28.2 35 - 47 % Low 08-22-2019 [facility]- [Volume fraction] [place] ([address]) Hemoglobin (Bld) 9.7 11.7 - 16 g/dL Low 08-22-2019 [facility]- [Mass/Vol] [place] ([id number]) Interpretation and Abnormal 08-22-2019 [facility]- review of laboratory [place] ([id number]) results Lymphocytes (Bld) 2.0 1 - 4.3 10*3/uL 08-22-2019 [facility]- [#/Vol] [place] (45 237) Lymphocytes/100 WBC 26.8 20 - 40 % 08-22-2019 [facility]- (Bld) [place] (45 237) MCH (RBC) [Entitic 30.9 26 - 34 pg 08-22-2019 [facility]- mass] [place] H[place] (45 237) MCHC (RBC) [Mass/Vol] 34.4 32 - 36 % 08-22-19 20 [facility] [place] (45 237) MCV (RBC) [Entitic 89.8 79 - 98 fL 08-22-2019 [facility]- vol] [place] H[place] (45 237) Monocytes (Bld) 0.5 0 - 0.8 10*3/uL 08-22-2019 [facility]- [#/Vol] [place] (45 237) Monocytes/100 WBC 7.2 2 - 10 % 08-22-2019 [facility]- (Bld) [place] (45 237) Platelet mean volume 8.1 7.4 - 10.4 fL 08-22-19 20 [facility]- (Bld) [Entitic vol] [place] ([id number]) Platelets (Bld) 306 140 - 440 10*3/uL 08-22-2019 [facility]- [#/Vol] [place] (45 237) RBC (Bld) [#/Vol] 3.14 3.8 - 5.2 10*6/uL Low 08-22-2019 [facility] [place] (45 237) WBC (Bld) [#/Vol] 7.4 3.6 - 10.7 10*3/uL 08-22-2019 [facility] [place] HOBBS (45 237) Test Performed 08-22-2019 [facility]- by [facility] [place]BS ([id number]) System, [facility] [place] [address] hemogram w/ autodiff on 2019-08-21 Abs Baso Cnt 0.1 0.0-0.2 10*3/uL Normal 08-21-2019 [facility] ([id number]) Comment: Performed By: #### CXTIS ### # [facility] [address] [place] [facility] [address] [place] #### C/MICAELA #### [facility] [address] [place] Abs Neutrophile Cnt 4.0 1.8-7.0 10*3/uL Normal 08-21-2019 [facility] (57366) Comment: Performed By: #### CXTIS ### # [facility] [place] [place] [facility] [place] [place] #### C/MICAELA #### [facility] [address] [place] Basophils/100 WBC (Bld) 0.9 0.0-2.0 % Normal 2019 [facility] (96390) Comment: Performed By: #### CXTIS ### # [facility] [address] [place] [facility] [place] [place] #### C/MICAELA #### [facility] [address] [place] Eosinophils (Bld) [#/Vol] 0.2 0.0-0.5 10*3/uL Normal 08-10 [facility] (52008) Comment: Performed By: #### CXTIS ### # [facility] [address] [place] [facility] [address] [place] #### C/MICAELA #### [facility] [address] [place] Eosinophils/100 WBC (Bld) 3.7 1.0-6.0 % Normal 08-10 [facility] (44383) Comment: Performed By: #### CXTIS ### # [facility] [address] [place] [facility] [address] [place] #### C/MICAELA #### [facility] [address] [place] Erythrocyte distribution 13.7 11.5-14.5 % Normal 08-20 [facility] width (RBC) [Ratio] (69718) Comment: Performed By: #### CXTIS ### # [facility] [facility] [address] [place] [facility] [address], [place] #### C/MICAELA #### [facility] [address] Granulocytes/100 WBC (Bld) 60.5 40.0-80.0 % Normal [facility] ([id number]) Comment: Performed By: #### CXTIS ### # [facility] [address] [place] [facility] [address] [place] #### C/MICAELA #### [facility] [address] [place] Hematocrit (Bld) [Volume 27.0 35.0-47.0 % Low 08-20 [facility] fraction] (73093) Comment: Performed By: #### CXTIS ### # [facility] [address] [place] [facility] [address] [place] #### C/MICAELA #### [facility] [address] [place] Hemoglobin (Bld) [Mass/Vol] 9.2 11.7-16.0 g/dL Low [facility] (19656) Comment: Performed By: #### CXTIS ### # [facility] [address] [place] [facility] [address] [place] #### C/MICAELA #### [facility] [address] [place] Lymphocytes (Bld) [#/Vol] 1.8 1.0-4.3 10*3/uL Normal 08-10 [facility] (63211) Comment: Performed By: #### CXTIS ### # [facility] [address] [place] [facility] [address] [place] #### C/MICAELA #### [facility] [address] [place] Lymphocytes/100 WBC (Bld) 27.2 20.0-40.0 % Normal 08-10 [facility] (39545) Comment: Performed By: #### CXTIS ### # [facility] [address] [place] [facility] [address] [place] #### C/MICAELA #### [facility] [address] [place] MCH (RBC) [Entitic mass] 30.5 26.0-34.0 pg Normal 08-20 [facility] (24315) Comment: Performed By: #### CXTIS ### # [facility] [address] [place] [facility] [address] [place] #### C/MICAELA #### [facility] [address] [place] MCHC (RBC) [Mass/Vol] 34.2 32.0-36.0 % Normal 08-21-19 [facility] ([id number]) Comment: Performed By: #### CXTIS ### # [facility] [address] [place] [facility] [address] [place] #### C/MICAELA #### [facility] [address] [place] MCV (RBC) [Entitic vol] 89.3 79.0-98.0 fL Normal 2019 [facility] (62871) Comment: Performed By: #### CXTIS ### # [facility] [address] [place] [facility] [address] [place] #### C/MICAELA #### [facility] [address] [place] Monocytes (Bld) [#/Vol] 0.5 0.0-0.8 10*3/uL Normal 2019 [facility] (85191) Comment: Performed By: #### CXTIS ### # [facility] [address] [place] [facility] [address] [place] #### C/MICAELA #### [facility] [address] [place] Monocytes/100 WBC (Bld) 7.7 2.0-10.0 % Normal 2019 [facility] (36199) Comment: Performed By: #### CXTIS ### # [facility] [address] [place] [facility] [address] [place] #### C/MICAELA #### [facility] [address] [place] Platelet mean volume (Bld) 8.2 7.4-10.4 fL Normal [facility] [Entitic vol] (94887 ) Comment: Performed By: #### CXTIS ### # [facility] [address] [place] [facility] [address] [place] #### C/MICAELA #### [facility] [address] [place] Platelets (Bld) [#/Vol] 271 140-440 10*3/uL Normal 2019 [facility] (57958) Comment: Performed By: #### CXTIS ### # [facility] [address] [place] [facility] [address] [place] #### C/MICAELA #### [facility] [address] [place] RBC (Bld) [#/Vol] 3.03 3.80-5.20 10*6/uL Low 08-21-2019 [facility] (09285) Comment: Performed By: #### CXTIS ### # [facility] [address] [place] [facility] [address] [place] #### C/MICAELA #### [facility] [address] [place] WBC (Bld) [#/Vol] 6.6 3.6-10.7 10*3/uL Normal 08-21-2019 [facility] (38564) Comment: Performed By: #### CXTIS ### # [facility] [address] [place] [facility] [address] [place] #### C/MICAELA #### [facility] [address] [place] No panel information on 2019-08-21 Absolute Baso # 0.1 0 - 0.2 10*3/uL 08-21-2019 [place], [place] (45 237) Absolute Neut # 4.0 1.8 - 7 10*3/uL 08-21-2019 [place], [place] (45 237) Basophils/100 WBC 0.9 0 - 2 % 08-21-2019 [facility]- (Bld) [place], [place] (45 237) Eosinophils (Bld) 0.2 0 - 0.5 10*3/uL 08-21-2019 [facility]- [#/Vol] [place], [place] (45 237) Eosinophils/100 WBC 3.7 1 - 6 % 08-21-2019 [facility]- (Bld) MARLENY HOBBS (45 237) Erythrocyte 13.7 11.5 - % 08-21-2019 [facility]alth- distribution width 14.5 O MARLENY Gama ([id number]) (RBC) [Ratio] Granulocytes/100 WBC 60.5 40 - 80 % 0 [facility]- (Bld) [place] HOBBS (45 237) Hematocrit (Bld) 27.0 35 - 47 % Low 08-21-2019 [facility]- [Volume fraction] [place] HOBBS ([id number]) Hemoglobin (Bld) 9.2 11.7 - 16 g/dL Low 08-21-2019 [facility]- [Mass/Vol] [place] HOBBS ([id number]) Interpretation and Abnormal 08-21-2019 [facility]- review of laboratory [place] HOBBS ([id number]) results Lymphocytes (Bld) 1.8 1 - 4.3 10*3/uL 08-21-2019 [facility]- [#/Vol] [place] HOBBS (45 237) Lymphocytes/100 WBC 27.2 20 - 40 % 08-21-2019 [facility]- (Bld) [place] HOBBS (45 237) MCH (RBC) [Entitic 30.5 26 - 34 pg 08-21-2019 [facility]- mass] MAR[place] HOBBS (45 237) MCHC (RBC) [Mass/Vol] 34.2 32 - 36 % 08-21-19 20 [facility] [place] HOBBS (45 237) MCV (RBC) [Entitic 89.3 79 - 98 fL 08-21-2019 [facility]- vol] MARLEN[place] HOBBS (45 237) Monocytes (Bld) 0.5 0 - 0.8 10*3/uL 08-21-2019 [facility]- [#/Vol] MARLEN[place] HOBBS (45 237) Monocytes/100 WBC 7.7 2 - 10 % 08-21-2019 [facility]- (Bld) MARLENY HOBBS (45 237) Platelet mean volume 8.2 7.4 - 10.4 fL 08-21-19 20 [facility] (Bld) [Entitic vol] [place] HOBBS (52861) Platelets (Bld) 271 140 - 440 10*3/uL 08-21-2019 [facility]- [#/Vol] [place], [place] (45 237) RBC (Bld) [#/Vol] 3.03 3.8 - 5.2 10*6/uL Low 08-21-2019 [facility] [place], [place] (45 237) WBC (Bld) [#/Vol] 6.6 3.6 - 10.7 10*3/uL 08-21-2019 [facility] [place], [place] (45 237) Test Performed 08-21-2019 [facility] ([address]) System, [address] [place] [address] vancomycin trough o n 2019-08-20 Vancomycin Trough 11.4 15.0-20.0 ug/mL Low 08-20-2019 [facility] (11599) Comment: Result Comment: . Performed By: #### CXTIS ### # [facility] [place] [address] [facility] [address] [place] #### C/MICAELA #### [facility] [address], [place] magnesium on -10 Magnesium [Mass/Vol] 1.9 1.6-2.3 mg/dL Normal 0 [facility] (85617) Comment: Performed By: #### CXTIS ### # [facility] [address], [place] [facility] [address] [place] #### C/MICAELA #### [facility] [address] [place] hemogram w/ autodiff on 2019-08-20 Abs Baso Cnt 0.0 0.0-0.2 10*3/uL Normal 08-20-2019 [facility] (63562) Comment: Performed By: #### CXTIS ### # [facility] [address] [place] [facility] [address] [place] #### C/MICAELA #### [facility] [address] [place] Abs Neutrophile Cnt 4.5 1.8-7.0 10*3/uL Normal 08-20-2019 [facility] (58172) Comment: Performed By: #### CXTIS ### # [facility] [address] [place] [facility] [address] [place] #### C/MICAELA #### [facility] [address] [place] Basophils/100 WBC (Bld) 0.2 0.0-2.0 % Normal 2019 [facility] (06492) Comment: Performed By: #### CXTIS ### # [facility] [address] [place] [facility] [address] [place] #### C/MICAELA #### [facility] [address] [place] Eosinophils (Bld) [#/Vol] 0.2 0.0-0.5 10*3/uL Normal 08-10 [facility] (24727) Comment: Performed By: #### CXTIS ### # [facility] [address] [place] [facility] [address] [place] #### C/MICAELA #### [facility] [address] [place] Eosinophils/100 WBC (Bld) 3.4 1.0-6.0 % Normal 08-10 [facility] (45806) Comment: Performed By: #### CXTIS ### # [facility] [address] [place] [facility] [address] [place] #### C/MICAELA #### [facility] [address] [place] Erythrocyte distribution 13.4 11.5-14.5 % Normal 08-19 [facility] width (RBC) [Ratio] (59763) Comment: Performed By: #### CXTIS ### # [facility] [address] [place] [facility] [address] [place] #### C/MICAELA #### [facility] [address] [place] Granulocytes/100 WBC (Bld) 65.9 40.0-80.0 % Normal [facility] (14080) Comment: Performed By: #### CXTIS ### # [facility] [address] [place] [facility] [address] [place] #### C/MICAELA #### [facility] [address] [place] Hematocrit (Bld) [Volume 25.9 35.0-47.0 % Low 08-19 [facility] fraction] (75913) Comment: Performed By: #### CXTIS ### # [facility] [address] [place] [facility] [address] [place] #### C/MICAELA #### [facility] [address] [place] Hemoglobin (Bld) [Mass/Vol] 9.0 11.7-16.0 g/dL Low [facility] (14245) Comment: Performed By: #### CXTIS ### # [facility] [address] [place] [facility] [address] [place] #### C/MICAELA #### [facility] [address] [place] Lymphocytes (Bld) [#/Vol] 1.6 1.0-4.3 10*3/uL Normal 08-10 [facility] (90221) Comment: Performed By: #### CXTIS ### # [facility] [address] [place] [facility] [address] [place] #### C/MICAELA #### [facility] [address] [place] Lymphocytes/100 WBC (Bld) 23.1 20.0-40.0 % Normal 08-10 [facility] (47697) Comment: Performed By: #### CXTIS ### # [facility] [address] [place] [facility] [address] [place] #### C/MICAELA #### [facility] [address] [place] MCH (RBC) [Entitic mass] 30.7 26.0-34.0 pg Normal 08-19 [facility] (80510) Comment: Performed By: #### CXTIS ### # [facility] [address] [place] [facility] [address] [place] #### C/MICAELA #### [facility] [address] [place] MCHC (RBC) [Mass/Vol] 34.8 32.0-36.0 % Normal 08-20-19 [facility] (07103) Comment: Performed By: #### CXTIS ### # [facility] [address] [place] [facility] [address] [place] #### C/MICAELA #### [facility] [address] [place] MCV (RBC) [Entitic vol] 88.2 79.0-98.0 fL Normal 2019 [facility] (62414) Comment: Performed By: #### CXTIS ### # [facility] [address] [place] [facility] [address] [place] #### C/MICAELA #### [facility] [address] [place] Monocytes (Bld) [#/Vol] 0.5 0.0-0.8 10*3/uL Normal 2019 [facility] (24082) Comment: Performed By: #### CXTIS ### # [facility] [address] [place] [facility] [address] [place] #### C/MICAELA #### [facility] [address] [place] Monocytes/100 WBC (Bld) 7.4 2.0-10.0 % Normal 2019 [facility] (82316) Comment: Performed By: #### CXTIS ### # [facility] [address] [place] [facility] [address] [place] #### C/MICAELA #### [facility] [address] [place] Platelet mean volume (Bld) 7.6 7.4-10.4 fL Normal [facility] [Entitic vol] (74838 ) Comment: Performed By: #### CXTIS ### # [facility] [address] [place] [facility] [address] [place] #### C/MICAELA #### [facility] [address] [place] Platelets (Bld) [#/Vol] 230 140-440 10*3/uL Normal 2019 [facility] (22456) Comment: Performed By: #### CXTIS ### # [facility] [address] [place] [facility] [address] [place] #### C/MICAELA #### [facility] [address] [place] RBC (Bld) [#/Vol] 2.93 3.80-5.20 10*6/uL Low 08-20-2019 [facility] (60038) Comment: Performed By: #### CXTIS ### # [facility] [address] [place] [facility] [address] [place] #### C/MICAELA #### [facility] [address] [place] WBC (Bld) [#/Vol] 6.8 3.6-10.7 10*3/uL Normal 08-20-2019 [facility] (70600) Comment: Performed By: #### CXTIS ### # [facility] [address] [place] [facility] [address] [place] #### C/MICAELA #### [facility] [address] [place] basic metabolic panel on 2019-08-20 Calcium [Mass/Vol] 9.1 8.4-10.4 mg/dL Normal 08-20-2019 [facility] (49894) Comment: Performed By: #### CXTIS ### # [facility] [address] [place] [facility] [address] [place] #### C/MICAELA #### [facility] [address] [place] Anion gap [Moles/Vol] 5 Normal 08-20-19 20 [facility] (65410) Comment: Performed By: #### CXTIS ### # [facility] [address] [place] [facility] [address] [place] #### C/MICAELA #### [facility] [address] [place] CO2 [Moles/Vol] 29 22-30 mmol/L Normal 08-20-2019 [facility] (60953) Comment: Performed By: #### CXTIS ### # [facility] [address] [place] [facility] [address] [place] #### C/MICAELA #### [facility] [address] [place] Creatinine [Mass/Vol] 0.56 0.52-1.25 mg/dL Normal 08-20-19 20 [facility] (87713) Comment: Performed By: #### CXTIS ### # [employer] [facility] [address] [place] [facility] [address] [place] #### C/MICAELA #### [employer] System [address] [place] GFR/1.73 sq M > 60.0 >60 mL/min/{1.73_m2} Normal 0 [facility] predicted among Syst em (33519) blacks MDRD (S/P/Bld) [Vol rate/Area] Comment: Performed By: #### CXTIS ### # [employer] [facility] [address] [place] [facility] [address] [place] #### C/MICAELA #### [employer] [facility] [address] [place] GFR/1.73 sq M > 60.0 >60 mL/min/{1.73_m2} Normal 0 [facility] predicted among Syst em (30553) non-blacks MDRD (S/P/Bld) [Vol rate/Area] Comment: Result Comment: Source- MDRD equation with creatinine calibration to IDMS(NKDEP) eGFR not recommended for incolas g dose adjustment Performed By: #### CXTIS ### # [employer] [facility] [address] [place], [place] [facility] [address] [place] #### C/MICAELA #### [facility] [employer] [facility] [employer] [facility] [address] [place] Glucose [Mass/Vol] 96 70-100 mg/dL Normal 08-20-2019 [facility] (17584) Comment: Performed By: #### CXTIS ### # [facility] [address] [place] [facility] [address] [place] #### C/MICAELA #### [facility] [address] [place] Urea nitrogen [Mass/Vol] 11 7-20 mg/dL Normal 08-19 [facility] (45527) Comment: Performed By: #### CXTIS ### # [facility] [address] [place] [facility] [address] [place] #### C/MICAELA #### [facility] [address] [place] Chloride [Moles/Vol] 100 98-107 mmol/L Normal 0 [facility] (58986) Comment: Performed By: #### CXTIS ### # [facility] [address] [place] [facility] [address] [place] #### C/MICAELA #### [facility] [address] [place] Potassium [Moles/Vol] 3.9 3.5-5.1 mmol/L Normal 08-20-19 20 [facility] (01820) Comment: Performed By: #### CXTIS ### # [facility] [address] [facility] [place] [facility] [address] [place] #### C/MICAELA #### [facility] [address] [facility] [place] Sodium [Moles/Vol] 135 135-145 mmol/L Normal 08-20-2019 [facility] (21182) Comment: Performed By: #### CXTIS ### # [facility] [address] [place] [address] [facility] [address] [place], [place] [id number] #### C/MICAELA #### [facility] [address] [place] [address] No panel information on 2019-08-20 Interpretation and review Abnormal 08-10 [place], [place] of laboratory results ([address]41) Vancomycin Tr 11.4 15 - 20 ug/mL Low 08-20-2019 [place], [place] ([address]) Comment: . Test Performed by 08-20-2019 [place], [place] ([address]) System, [facility] [place] [address] Anion gap 5 mmol/L 08-20-2019 [facility] [Moles/Vol] [place] ( [address]) Calcium [Mass/Vol] 9.1 8.4 - 10.4 mg/dL 08-20-2019 [place], [place] (90 634) Chloride 100 98 - 107 mmol/L 08-20-2019 [facility] [Moles/Vol] [place] ( [address]) CO2 [Moles/Vol] 29 22 - 30 mmol/L 08-20-2019 [place], [place] (98 [address]) Creatinine 0.56 0.52 - 1.25 mg/dL 08-20-2019 [facility] [Mass/Vol] [place], [place] (4 7532) EGFR IF NonAfrican >60.0 >60 mL/min 08-20-2019 [place], [place] (00 193) Comment: Source- MDRD equation with c reatinine calibration to IDMS(NKDEP) eGFR not recommended for nicolas g dose adjustment GFR/1.73 sq M >60.0 >60 mL/min mL/min/{1.73_m2} 08-20-19 [facility] predicted among [facility] [place], [facility] MDRD [place] (4120 7) (S/P/Bld) [Vol rate/Area] Glucose [Mass/Vol] 96 70 - 100 mg/dL 08-20-2019 [place] ([address]) Magnesium 1.9 1.6 - 2.3 mg/dL 08-20-2019 [facility] [Mass/Vol] [place] ([address]) Potassium 3.9 3.5 - 5.1 mmol/L 08-20-2019 [facility] [Moles/Vol] [place] ([address]) Sodium [Moles/Vol] 135 135 - 145 mmol/L 08-20-2019 [place] ([address]) Urea nitrogen 11 7 - 20 mg/dL 08-20-2019 [facility] [Mass/Vol] [place] ([address]) Test 08-20-2019 [facility] Performed by [facility] (313 60) [facility], [address] [place] [address] Absolute Baso # 0.0 0 - 0.2 10*3/uL 08-20-2019 [place] ([address]) Absolute Neut # 4.5 1.8 - 7 10*3/uL 08-20-2019 [place] ([address]) Basophils/100 WBC 0.2 0 - 2 % 08-20-2019 [facility] (Bld) [place] ([address]) Eosinophils (Bld) 0.2 0 - 0.5 10*3/uL 08-20-2019 [facility] [#/Vol] [place] ([address]) Eosinophils/100 WBC 3.4 1 - 6 % 08-20-2019 [facility] (Bld) [place] ([address]) Erythrocyte 13.4 11.5 - % 08-20-2019 [facility] distribution [facility] 14.5 [facility] (R[facility] [Ratio] [place] (45 730) Granulocytes/100 65.9 40 - 80 % 08-20-2019 [facility] WBC (Bld) [place] ([address]) Hematocrit (Bld) 25.9 35 - 47 % Low 08-20-2019 [facility] [Volume fraction] [place] ([address]) Hemoglobin (Bld) 9.0 11.7 - 16 g/dL Low 08-20-2019 [facility] [Mass/Vol] [place] ([address]) Interpretation and Abnormal 08-20-2019 [facility] review of [facility] , laboratory results [place] ([address]) Lymphocytes (Bld) 1.6 1 - 4.3 10*3/uL 08-20-2019 [facility] [#/Vol] [place] ([address]) Lymphocytes/100 WBC 23.1 20 - 40 % 08-20-2019 [facility] (Bld) [place] ([address]) MCH (RBC) [Entitic 30.7 26 - 34 pg 08-20-2019 [facility] mass] [place] ([address]) MCHC (RBC) 34.8 32 - 36 % 08-20-2019 [facility] [Mass/Vol] [facility] [place] ([address]) MCV (RBC) [Entitic 88.2 79 - 98 fL 08-20-2019 [facility] vol] [place] ([address]) Monocytes (Bld) 0.5 0 - 0.8 10*3/uL 08-20-2019 [facility] [#/Vol] [place] ([address]) Monocytes/100 WBC 7.4 2 - 10 % 08-20-2019 [facility] (Bld) [place] ([address]) Platelet mean 7.6 7.4 - 10.4 fL 08-20-2019 [facility] volume (Bld) [facility], [Entitic vol] [place] (45 237) Platelets (Bld) 230 140 - 440 10*3/uL 08-20-2019 [facility] [#/Vol] [place] ([address]) RBC (Bld) [#/Vol] 2.93 3.8 - 5.2 10*6/uL Low 08-20-2019 [place] ([address]) WBC (Bld) [#/Vol] 6.8 3.6 - 10.7 10*3/uL 08-20-2019 [place] [place] ([address]) Test 08-20-2019 [facility] Performed by [facility] [employer] [place] (392 37) System, [address] [place] [address] ts gel on 9 TS GEL ABO Group: Normal 08-19-2019 [facility] ([address]) B Rh, Gel: POS Antibody Screen Gel: NEG Comment: Performed By: #### CXTIS ### # [facility] [employer] [facility] [place] [facility] [address] [place], [place] #### C/MICAELA #### [facility] [address] [place], [place] magnesium on 08-18 Magnesium [Mass/Vol] 1.9 1.6-2.3 mg/dL Normal 0 [facility] (03232) Comment: Performed By: #### CXTIS ### # [facility] [address] [place], [place] [facility] [address] [place], [place] #### C/MICAELA #### [facility] [address] [place] hemogram w/ autodiff on 2019-08-19 Abs Baso Cnt 0.0 0.0-0.2 10*3/uL Normal 08-19-2019 [facility] (57356) Comment: Performed By: #### CXTIS ### # [facility] [address] [place] [facility] [address] [place], [place] #### C/MICAELA #### [facility] [address] [place] Abs Neutrophile Cnt 3.4 1.8-7.0 10*3/uL Normal 08-19-2019 [facility] (33566) Comment: Performed By: #### CXTIS ### # [facility] [address] [place] [facility] [address] [place], [place] #### C/MICAELA #### [facility] [address] [place], [place] Basophils/100 WBC (Bld) 0.4 0.0-2.0 % Normal 2019 [facility] (19114) Comment: Performed By: #### CXTIS ### # [facility] [address] [place] [facility] [address] [place] #### C/MICAELA #### [facility] [address] [place], [place] Eosinophils (Bld) [#/Vol] 0.2 0.0-0.5 10*3/uL Normal [facility] System ([address]) Comment: Performed By: #### CXTIS ### # [facility] [address] [place] [facility] [address] [place] #### C/MICAELA #### [facility] [address] [place] Eosinophils/100 WBC (Bld) 2.8 1.0-6.0 % Normal [facility] System (94990) Comment: Performed By: #### CXTIS ### # [facility] [address] [place] [facility] [address] [place], [place] #### C/MICAELA #### [facility] [address] [place] Erythrocyte distribution 13.6 11.5-14.5 % Normal 08-18 [facility] System width (RBC) [Ratio] (66453) Comment: Performed By: #### CXTIS ### # [facility] [address] [place] [facility] [address] [place] #### C/MICAELA #### [facility] [address] [place], [place] Granulocytes/100 WBC (Bld) 57.3 40.0-80.0 % Normal [facility] (92813) Comment: Performed By: #### CXTIS ### # [facility] [address] [place] [facility] [address] [place] #### C/MICAELA #### [facility] [address] [place] Hematocrit (Bld) [Volume 24.3 35.0-47.0 % Low 08-18 [facility] fraction] ([address]) Comment: Performed By: #### CXTIS ### # [facility] [address] [place] [facility] [address] [place] #### C/MICAELA #### [facility] [address] [place] Hemoglobin (Bld) [Mass/Vol] 8.4 11.7-16.0 g/dL Low [facility] (20080) Comment: Performed By: #### CXTIS ### # [facility] [address] [place] [facility] [address] [place] #### C/MICAELA #### [facility] [address] [place] Lymphocytes (Bld) [#/Vol] 1.9 1.0-4.3 10*3/uL Normal [facility] (95198) Comment: Performed By: #### CXTIS ### # [facility] [address] [place] [facility] [address] [place] #### C/MICAELA #### [facility] [address] [place] Lymphocytes/100 WBC (Bld) 31.4 20.0-40.0 % Normal [facility] (14329) Comment: Performed By: #### CXTIS ### # [facility] [address] [place] [facility] [address] [place], [place] #### C/MICAELA #### [facility] [address] [place] MCH (RBC) [Entitic mass] 30.8 26.0-34.0 pg Normal 08-18 [facility] (48942) Comment: Performed By: #### CXTIS ### # [facility] [address] [place], [place] [facility] [address] [place] #### C/MICAELA #### [facility] [address] [place] MCHC (RBC) [Mass/Vol] 34.6 32.0-36.0 % Normal 08-19-19 20 [facility] (77183) Comment: Performed By: #### CXTIS ### # [facility] [address] [place] [facility] [address] [place] #### C/MICAELA #### [facility] [address] [place] MCV (RBC) [Entitic vol] 89.2 79.0-98.0 fL Normal 2019 [facility] (20616) Comment: Performed By: #### CXTIS ### # [facility] [address] [place] [facility] [address] [place] #### C/MICAELA #### [facility] [address] [place] Monocytes (Bld) [#/Vol] 0.5 0.0-0.8 10*3/uL Normal 2019 [facility] (76973) Comment: Performed By: #### CXTIS ### # [facility] [address] [place], [place] [facility] [address] [place] #### C/MICAELA #### [facility] [address] [place] Monocytes/100 WBC (Bld) 8.1 2.0-10.0 % Normal 2019 [facility] (63621) Comment: Performed By: #### CXTIS ### # [facility] [address] [facility], [place] [facility] [address] [place], [place] #### C/MICAELA #### [facility] [address] [facility], [place] Platelet mean volume (Bld) 7.9 7.4-10.4 fL Normal [facility] System [Entitic vol] (00887 ) Comment: Performed By: #### CXTIS ### # [facility] [address] [facility], [place] [facility] [address] [place] #### C/MICAELA #### [facility] [address] [place], [place] Platelets (Bld) [#/Vol] 207 140-440 10*3/uL Normal 2019 [facility] (69207) Comment: Performed By: #### CXTIS ### # [facility] [address] [facility], [place] [facility] [address] [place] #### C/MICAELA #### [facility] [address] [place], [place] RBC (Bld) [#/Vol] 2.72 3.80-5.20 10*6/uL Low 08-19-2019 S [facility] (64908) Comment: Performed By: #### CXTIS ### # [facility] [address] [facility] [place] [facility] [address] [place] #### C/MICAELA #### [facility] [address] [facility], [place] WBC (Bld) [#/Vol] 5.9 3.6-10.7 10*3/uL Normal 08-19-2019 S [facility] (28986) Comment: Performed By: #### CXTIS ### # [facility] [address] [facility] [place] [facility] [address] [place], [place] #### C/MICAELA #### [facility] System [address] [place], [place] culture anaerobe on 2019-08-19 CULTURE ANAEROBE CULTURE ANAEROBE --> Status: F No [facility] 08-19-2019 [facility] No growth of anaerobes at 5 days. (92857) Comment: Order Comment: Specimen cat ected in O.R. Performed By: #### REINIER, C/ MICAELA #### [facility] [address] [place], [place] CULTURE ANAEROBE CULTURE ANAEROBE --> Status: F No [facility] 08-19-2019 [facility] No growth of anaerobes at 5 days. (47668) Comment: Order Comment: Specimen cat ected in O.R. Performed By: #### CXTIS ### # [facility] [address] [place] [facility] [address] [place], [place] #### C/MICAELA #### [facility] [address] [place] CULTURE ANAEROBE CULTURE ANAEROBE --> Status: F No [facility] 08-19-2019 [facility] No growth of anaerobes at 5 days. (01626) Comment: Order Comment: Specimen cat ected in O.R. Performed By: #### CXIVIS, C/ MICAELA #### [facility] [employer] [facility] [address] [place], [place] basic metabolic panel on 2019-08-19 Anion gap [Moles/Vol] 4 Normal 08-19-19 20 [facility] (75594) Comment: Performed By: #### CXTIS ### # [facility] [employer] [facility] [address] [place], [place] [facility] System [address] [place], [place] #### C/MICAELA #### [facility] [address] [place], [place] Chloride [Moles/Vol] 100 98-107 mmol/L Normal 08-18- 0 [facility] (32555) Comment: Performed By: #### CXTIS ### # [facility] [address] [facility] [place] [facility] [address] [facility] [place], [place] #### C/MICAELA #### [facility] [address] [facility] [place] Potassium [Moles/Vol] 3.5 3.5-5.1 mmol/L Normal 08-19-19 [facility] (14497) Comment: Performed By: #### CXTIS ### # [facility] [address] [facility] [place] [facility] [address] [facility] [place] #### C/MICAELA #### [facility] [address] [facility] [place] Sodium [Moles/Vol] 134 135-145 mmol/L Low 08-19-2019 [facility] (56382) Comment: Performed By: #### CXTIS ### # [facility] [address] [facility] [place] [facility] [address] [facility] [place] #### C/MICAELA #### [facility] [address] [facility] [place] Calcium [Mass/Vol] 8.4 8.4-10.4 mg/dL Normal 08-19-2019 [facility] (30883) Comment: Performed By: #### CXTIS ### # [facility] [address] [facility] [place] [facility] [address] [facility] [place] #### C/MICAELA #### [facility] [address] [facility] [place] CO2 [Moles/Vol] 31 22-30 mmol/L High 08-19-2019 [facility] (74080) Comment: Performed By: #### CXTIS ### # [facility] [address] [facility] [place] [facility] [address] [facility] [place] #### C/MICAELA #### [facility] [address] [place], [place] Glucose [Mass/Vol] 104 70-100 mg/dL High 08-19-2019 [facility] (09025) Comment: Performed By: #### EDERTIS ### # [facility] [address] [place] [facility] [address] [place] #### C/MICAELA #### [facility] [address] [place] Urea nitrogen [Mass/Vol] 11 7-20 mg/dL Normal 08-18 [facility] (06511) Comment: Performed By: #### EDERTIS ### # [facility] [address] [place], [place] [facility] [address] [place] #### C/MICAELA #### [employer] [facility] [address] [place], [place] Creatinine [Mass/Vol] 0.64 0.52-1.25 mg/dL Normal 08-19-19 20 [facility] (35911) Comment: Performed By: #### EDERTIS ### # [employer] [facility] [address] [place], [place] [facility] [address] [place] #### C/MICAELA #### [employer] [facility] [address] [place], [place] GFR/1.73 sq M > 60.0 >60 mL/min/{1.73_m2} Normal 0 [facility] [employer] predicted among Syst em (18839) blacks MDRD (S/P/Bld) [Vol rate/Area] Comment: Performed By: #### CXTIS ### # [facility] [address] [place], [place] [facility] [address] [place] #### C/MICAELA #### [facility] [address] [place] GFR/1.73 sq M > 60.0 >60 mL/min/{1.73_m2} Normal 0 [facility] predicted among Syst em (16090) non-blacks MDRD (S/P/Bld) [Vol rate/Area] Comment: Result Comment: Source- MDRD equation with creatinine calibration to IDMS(NKDEP) eGFR not recommended for nicolas g dose adjustment Performed By: #### CXTIS ### # [facility] [address] [place], [place] [facility] [address] [place], [place] #### C/MICAELA #### [facility] [address] [place], [place] No panel information on 2019-08-19 Anaerobic Culture No growth of anaerobes 08-19-2019 [place], [place] at 5 days. ([address]) Test Performed by [facility] 2019 [facility] E[address] ([address]) [place] [address] Specimen collected in O.R. Anaerobic Culture No growth of anaerobes 08-19-2019 [place], [place] at 5 days. ([address]) Test Performed by [facility] 2019 [facility], [address] ([address]) [place] [address] Specimen collected in O.R. Anaerobic Culture No growth of anaerobes 08-19-2019 [place], [place] at 5 days. ([address]) Test Performed by [facility] 2019 [facility], [address] ([address]) [place] [address] Specimen collected in O.R. Sodium [Moles/Vol] NEG mmol/L 08-19-2019 [place] ([address]) Comment: Test Performed by [facility], [address] [place] [address] Sodium [Moles/Vol] B 08-19-2019 [place] ([address]) Sodium [Moles/Vol] POS mmol/L 08-19-2019 [place] ([address]) Comment: Test Performed by [facility], [address] [place] [address] Test Performed by 08-19-2019 [place], [place] ([address]) System, [place] [address] Anion gap 4 mmol/L 08-19-2019 [facility] [Moles/Vol] [place] ( [address]) Calcium [Mass/Vol] 8.4 8.4 - 10.4 mg/dL 08-19-2019 [place] ([address]) Chloride 100 98 - 107 mmol/L 08-19-2019 [facility] [Moles/Vol] [place] ( [address]) CO2 [Moles/Vol] 31 22 - 30 mmol/L High 08-19-2019 [place], [place] ([address]) Creatinine 0.64 0.52 - 1.25 mg/dL 08-19-2019 [facility] [Mass/Vol] [place], [place] (4 [address]551) EGFR IF NonAfrican >60.0 >60 mL/min 08-19-2019 [place] ([address]) Comment: Source- MDRD equation with c reatinine calibration to IDMS(NKDEP) eGFR not recommended for nicolas g dose adjustment GFR/1.73 sq M >60.0 >60 mL/min mL/min/{1.73_m2} 08-19-19 20 [facility] predicted among [facility] [place], [facility] MDRD [place] (2038 7) (S/P/Bld) [Vol rate/Area] Glucose [Mass/Vol] 104 70 - 100 mg/dL High 08-19-2019 [place] ([address]) Interpretation and Abnormal 08-19-2019 [facility] review of [facility] , laboratory results K Y (06994) Potassium 3.5 3.5 - 5.1 mmol/L 08-19-2019 [facility] [Moles/Vol] [place] ([address]) Sodium [Moles/Vol] 134 135 - 145 mmol/L Low 08-19-2019 [place] ([address]) Urea nitrogen 11 7 - 20 mg/dL 08-19-2019 [facility] [Mass/Vol] [place] ([address]) Test 08-19-2019 [facility] Performed by [facility] (452 37) System, [facility] [place] [address] Magnesium 1.9 1.6 - 2.3 mg/dL 08-19-2019 [facility] [Mass/Vol] [place] ([address]) Test 08-19-2019 [facility] Performed by [facility] (452 37) System, [facility] [place] [address] Absolute Baso # 0.0 0 - 0.2 10*3/uL 08-19-2019 [place] ([address]) Absolute Neut # 3.4 1.8 - 7 10*3/uL 08-19-2019 [place] ([address]) Basophils/100 WBC 0.4 0 - 2 % 08-19-2019 [facility] (Bld) [place] ([address]) Eosinophils (Bld) 0.2 0 - 0.5 10*3/uL 08-19-2019 [facility] [#/Vol] [place] ([address]) Eosinophils/100 2.8 1 - 6 % 08-19-2019 [facility] WBC (Bld) [place] ([address]) Erythrocyte 13.6 11.5 - % 08-19-2019 [facility] distribution width 14.5 H [facility], (RBC) [Ratio] MARLENY (45 237) Granulocytes/100 57.3 40 - 80 % 08-19-2019 Me [facility] WBC (Bld) [place] ([address]) Hematocrit (Bld) 24.3 35 - 47 % Low 08-19-2019 [facility] [Volume fraction] [place] ([address]) Hemoglobin (Bld) 8.4 11.7 - 16 g/dL Low 08-19-2019 Me [facility]cy [Mass/Vol] [place] ([address]) Interpretation and Abnormal 08-19-2019 [facility] review of [facility] , laboratory results K Y (69976) Lymphocytes (Bld) 1.9 1 - 4.3 10*3/uL 08-19-2019 [facility] [#/Vol] [place] ([address]) Lymphocytes/100 31.4 20 - 40 % 08-19-2019 [facility] WBC (Bld) [place] ([address]) MCH (RBC) [Entitic 30.8 26 - 34 pg 08-19-2019 [facility] mass] [place] ([address]) MCHC (RBC) 34.6 32 - 36 % 08-19-2019 [facility] [Mass/Vol] [place] ([address]) MCV (RBC) [Entitic 89.2 79 - 98 fL 08-19-2019 [facility] vol] [place] ([address]) Monocytes (Bld) 0.5 0 - 0.8 10*3/uL 08-19-2019 [facility] [#/Vol] [place] ([address]) Monocytes/100 WBC 8.1 2 - 10 % 08-19-2019 M [facility] (Bld) [place] ([address]) Platelet mean 7.9 7.4 - 10.4 fL 08-19-2019 [facility] y volume (Bld) [facility], [Entitic vol] [place] (45 237) Platelets (Bld) 207 140 - 440 10*3/uL 08-19-2019 [facility] [#/Vol] [place] ([address]) RBC (Bld) [#/Vol] 2.72 3.8 - 5.2 10*6/uL Low 08-19-2019 [place] ([address]) WBC (Bld) [#/Vol] 5.9 3.6 - 10.7 10*3/uL 08-19-2019 [place] ([address]) Test 08-19-2019 [facility] Performed by [facility] (452 37) System, [address] [place] [address] single donor plasma (cp2d) on 2019-08-18 Single Donor Thawed Plasma - 5 Day: Normal [facility] Plasma (CP2D) [id number] transfused 08/18/19 03:26 [facility] System (29392) Unit Blood Type: B Unit Blood Rh: NEG Blood Product Code: 0T5 Unit Number: [id number] Unit Status: transfused Barcoded Unit Number: =[id number] Barcoded Product Code: = Barcoded ABO/Rh: =%1700 Unit Expiration: Unit Volume Transfused: 310 Unit Transfusion Start Date/Time: Thawed Plasma - 5 Day: [id number] transfused 08/18/19 01:10 [facility] Unit Blood Type: B Unit Blood Rh: POS Blood Product Code: 0T5 Unit Number: [id number] Unit Status: transfused Barcoded Unit Number: =[id number] Barcoded Product Code: = Barcoded ABO/Rh: =%7300 Unit Expiration: Unit Volume Transfused: 242 Unit Transfusion Start Date/Time: Comment: Performed By: #### TROPN ### # [facility] [employer] [place] [address] [address] [place] pheresis leuko reduced on 2019-08-18 Pheresis Leuko PATHOGEN REDUCED LR PPHR: Normal 08-18-2019 [facility] Reduced [id number] transfused 08/18/19 04:32 [facility] System () Unit Blood Type: AB Unit Blood Rh: NEG Blood Product Code: PR2 Unit Number: [id number] Unit Status: transfused Barcoded Unit Number: =[id number] Barcoded Product Code: = Barcoded ABO/Rh: =%2800 Unit Expiration: Unit Volume Transfused: 300 Unit Transfusion Start Date/Time: Comment: Performed By: #### TROPN ### # [place] [address] [address] [place], [place] magnesium on 08 Magnesium [Mass/Vol] 2.0 1.6-2.3 mg/dL Normal 0 [facility] (47124) Comment: Performed By: #### CXTIS ### # [place] [address] [address] [place], [place] [facility] [place], [place] #### C/MICAELA #### [place] [address] [address] [place] leukodepleted red cells on 2019-08-18 Leukodepleted Red Leukodepleted Red Cells: Normal 08-18-2019 [facility] Cells [id number] transfused 08/18/19 00:43 [facility] System (33855) Unit Blood Type: B Unit Blood Rh: POS Blood Product Code: AS1 Unit Number: [id number] Unit Status: transfused Barcoded Unit Number: =[id number] Barcoded Product Code: = Barcoded ABO/Rh: =%7300 Unit Expiration: Unit Volume Transfused: 300 Unit Transfusion Start Date/Time: Leukodepleted Red Cells: [id number] transfused 08/17/19 23:15 [facility] Unit Blood Type: B Unit Blood Rh: POS Blood Product Code: AS1 Unit Number: [id number] Unit Status: transfused Barcoded Unit Number: =[id number] Barcoded Product Code: = Barcoded ABO/Rh: =%7300 Unit Expiration: Unit Volume Transfused: 300 Unit Transfusion Start Date/Time: Comment: Performed By: #### TROPN ### # [facility] [address] [place], [place] hemogram w/ autodiff on 2019-08-18 Abs Baso Cnt 0.0 0.0-0.2 10*3/uL Normal 08-18-2019 [facility] (63778) Comment: Performed By: #### HEMDF, BM P3, MG3 ####[facility] [address] [place], [place] Abs Neutrophile Cnt 5.8 1.8-7.0 10*3/uL Normal 08-18-2019 [facility] (79459) Comment: Performed By: #### HEMDF, BM P3, MG3 ####[facility] [address] [place], [place] Basophils/100 WBC (Bld) 0.2 0.0-2.0 % Normal 2019 [facility] (01056) Comment: Performed By: #### HEMDF, BM P3, MG3 ####[facility] [employer] [address] [place], [place] Eosinophils (Bld) [#/Vol] 0.0 0.0-0.5 10*3/uL Normal 03-0 [facility] (48114) Comment: Performed By: #### HEMDF, BM P3, MG3 ####[address] Eosinophils/100 WBC (Bld) 0.1 1.0-6.0 % Low 03-0 [facility] (56971) Comment: Performed By: #### HEMDF, BM P3, MG3 ####[address] Erythrocyte distribution 13.4 11.5-14.5 % Normal 08-17 [facility] width (RBC) [Ratio] (60460) Comment: Performed By: #### HEMDF, BM P3, MG3 ####[address] Granulocytes/100 WBC (Bld) 79.7 40.0-80.0 % Normal [facility] (64901) Comment: Performed By: #### HEMDF, BM P3, MG3 ####[address] Hematocrit (Bld) [Volume 22.9 35.0-47.0 % Low 08-17 [facility] System fraction] (57236) Comment: Performed By: #### HEMDF, BM P3, MG3 ####[address] Hemoglobin (Bld) [Mass/Vol] 7.9 11.7-16.0 g/dL Low [facility] (10668) Comment: Performed By: #### HEMDF, BM P3, MG3 ####[address] Lymphocytes (Bld) [#/Vol] 0.7 1.0-4.3 10*3/uL Low 03-0 [facility] (26709) Comment: Performed By: #### HEMDF, BM P3, MG3 ####[address] [place] Lymphocytes/100 WBC (Bld) 10.0 20.0-40.0 % Low 03-0 [facility] (21738) Comment: Performed By: #### HEMDF, BM P3, MG3 ####[address] MCH (RBC) [Entitic mass] 30.6 26.0-34.0 pg Normal 08-17 [facility] (56566) Comment: Performed By: #### HEMDF, BM P3, MG3 ####[address] MCHC (RBC) [Mass/Vol] 34.5 32.0-36.0 % Normal 08-18-19 [facility] (47539) Comment: Performed By: #### HEMDF, BM P3, MG3 ####[address] MCV (RBC) [Entitic vol] 88.6 79.0-98.0 fL Normal 2019 [facility] (85077) Comment: Performed By: #### HEMDF, BM P3, MG3 ####[address] Monocytes (Bld) [#/Vol] 0.7 0.0-0.8 10*3/uL Normal 2019 [facility] (13541) Comment: Performed By: #### HEMDF, BM P3, MG3 ####[address] Monocytes/100 WBC (Bld) 10.0 2.0-10.0 % Normal 2019 [facility] (31318) Comment: Performed By: #### HEMDF, BM P3, MG3 ####[address] Platelet mean volume (Bld) 7.8 7.4-10.4 fL Normal [facility] [Entitic vol] (84425 ) Comment: Performed By: #### HEMDF, BM P3, MG3 ####[facility] [address] [place], [place] Platelets (Bld) [#/Vol] 188 140-440 10*3/uL Normal 2019 [facility] (30714) Comment: Performed By: #### HEMDF, BM P3, MG3 ####[facility] [address] [place], [place] RBC (Bld) [#/Vol] 2.59 3.80-5.20 10*6/uL Low 08-18-2019 [facility] (53071) Comment: Performed By: #### HEMDF, BM P3, MG3 ####[facility] [address] [place], [place] WBC (Bld) [#/Vol] 7.3 3.6-10.7 10*3/uL Normal 08-18-2019 [facility] (00330) Comment: Performed By: #### HEMDF, BM P3, MG3 ####[facility] [employer] [address] [place], [place] hemoglobin and hematocrit on 2019-08-18 Hematocrit (Bld) [Volume 26.7 % Low 08-17 [place] ([address]) fraction] Comment: Performed By: #### CXTIS ### # [facility] [address] [place], [place] [facility] [address] [place], [place] #### C/MICAELA #### [facility] [address] [place], [place] Hemoglobin (Bld) [Mass/Vol] 9.4 g/[place] ([address]) Comment: Performed By: #### CXTIS ### # [facility] [address] [place], [place] [facility] [address] [place], [place] #### C/MICAELA #### [facility] [address] [place] Hematocrit (Bld) [Volume 17.6 35.0-47.0 % Low 08-17 [facility] fraction] (58286) Comment: Performed By: #### HGHCT ### #[facility] [place], [place] Hemoglobin (Bld) 6.1 11.7-16.0 g/dL Critically low 08-18-19 [facility] [Mass/Vol] System (0 0000) Comment: Performed By: #### HGHCT ### #[facility] [place], [place] basic metabolic panel on 2019-08-18 Anion gap [Moles/Vol] 7 Normal 08-18-19 [facility] (71970) Comment: Performed By: #### CXTIS ### # [facility] System [address] [place], [place] [facility] [address] [place], [place] #### C/MICAELA #### [facility] [address] [place], [place] Calcium [Mass/Vol] 8.4 8.4-10.4 mg/dL Normal 08-18-2019 [facility] (58445) Comment: Performed By: #### CXTIS ### # [facility] [address] [place], [place] [facility] [address] [place], [place] #### C/MICAELA #### [facility] [address] [place], [place] CO2 [Moles/Vol] 27 22-30 mmol/L Normal 08-18-2019 [facility] (30542) Comment: Performed By: #### CXTIS ### # [facility] [address] [place], [place] [facility] [address] [place], [place] #### C/MICAELA #### [facility] [address] [place], [place] Creatinine [Mass/Vol] 0.52 0.52-1.25 mg/dL Normal 08-18-19 20 [facility] (13638) Comment: Performed By: #### CXTIS ### # [facility] [address] [place], [place] [facility] [address] [place], [place] #### C/MICAELA #### [employer] [address] [place], [place] GFR/1.73 sq M > 60.0 >60 mL/min/{1.73_m2} Normal 0 [facility] predicted among Syst em (11289) blacks MDRD (S/P/Bld) [Vol rate/Area] Comment: Performed By: #### CXTIS ### # [employer] [facility] [address] [place], [place] [facility] [address] [place], [place] #### C/MICAELA #### [employer] [facility] [address] [place], [place] GFR/1.73 sq M > 60.0 >60 mL/min/{1.73_m2} Normal 0 [facility] predicted among Syst em (42710) non-blacks MDRD (S/P/Bld) [Vol rate/Area] Comment: Result Comment: Source- MDRD equation with creatinine calibration to IDMS(NKDEP) eGFR not recommended for nicolas g dose adjustment Performed By: #### CXTIS ### # [employer] [facility] [address] [place], [place] [facility] [address] [place], [place] #### C/MICAELA #### [employer] [address] [place], [place] Glucose [Mass/Vol] 95 70-100 mg/dL Normal 08-18-2019 [facility] (52991) Comment: Performed By: #### CXTIS ### # [employer] [facility] [address] [place], [place] [facility] [address] [place], [place] #### C/MICAELA #### [facility] [address] [place], [place] Urea nitrogen [Mass/Vol] 13 7-20 mg/dL Normal 08-17 [facility] (16726) Comment: Performed By: #### CXTIS ### # [facility] [address] [place] [facility] [address] [place], [place] #### C/MICAELA #### [facility] [address] [place], [place] Chloride [Moles/Vol] 100 98-107 mmol/L Normal 0 [facility] (55534) Comment: Performed By: #### EDERTIS ### # [facility] [address] [place] [facility] [address] [place] #### C/MICAELA #### [facility] [address] [place], [place] Potassium [Moles/Vol] 3.9 3.5-5.1 mmol/L Normal 08-18-19 [facility] (98351) Comment: Performed By: #### EDERTIS ### # [facility] [address] [place] [facility] [address] [place] #### C/MICAELA #### [facility] [address] [place], [place] Sodium [Moles/Vol] 134 135-145 mmol/L Low 08-18-2019 [facility] (92106) Comment: Performed By: #### CXTIS ### # [facility] [address] [place] [facility] [address] [place], [place] #### C/MICAELA #### [facility] [address] [place], [place] No panel information on 2019-08-18 Interpretation and Abnormal 08-18-2019 [facility]- review [place] ([address]) results Test Performed by 08-18-2019 [place] ([address]) [facility], [address] [place] [id number] Anion gap [Moles/Vol] 7 mmol/L 08-18-19 20 [place], [place] ([address] 7[address]) Calcium [Mass/Vol] 8.4 8.4 - 10.4 mg/dL 08-18-2019 [place] (60 185) Chloride [Moles/Vol] 100 98 - 107 mmol/L 0 [place] (64 8[address]) CO2 [Moles/Vol] 27 22 - 30 mmol/L 08-18-2019 [place], [place] (10 015) Creatinine [Mass/Vol] 0.52 0.52 - 1.25 mg/dL 2019 [place], [place] (93 644) EGFR IF NonAfrican >60.0 >60 mL/min 08-18-2019 [place], [place] (28 086) Comment: Source- MDRD equation with c reatinine calibration to IDMS(NKDEP) eGFR not recommended for nicolas g dose adjustment GFR/1.73 sq M >60.0 >60 mL/min/{1.73_m2} 0 [facility] predicted among mL/min [facility] [place] (S/P/Bld) [Vol (6423 7) rate/Area] Glucose [Mass/Vol] 95 70 - 100 mg/dL 08-18-2019 [place] ([address]) Interpretation and Abnormal 08-18-2019 [facility] review of [facility] ([address]) Magnesium 2.0 1.6 - 2.3 mg/dL 08-18-2019 [facility] [Mass/Vol] [place] ([address]) Potassium 3.9 3.5 - 5.1 mmol/L 08-18-2019 [facility] [Moles/Vol] [place] ([address]) Sodium [Moles/Vol] 134 135 - 145 mmol/L Low 08-18-2019 [place] ([address]) Urea nitrogen 13 7 - 20 mg/dL 08-18-2019 [facility] [Mass/Vol] [place] ([address]) Test Performed 08-18-2019 [facility] by [facility], [address] [facility], ([address]) ANJEL Byrne [address] Absolute Baso # 0.0 0 - 0.2 10*3/uL 08-18-2019 [place] ([address]) Absolute Neut # 5.8 1.8 - 7 10*3/uL 08-18-2019 [place] ([address]) Basophils/100 WBC 0.2 0 - 2 % 08-18-2019 [place] (Bld) [place] ([address]) Eosinophils (Bld) 0.0 0 - 0.5 10*3/uL 08-18-2019 M ercy [#/Vol] [place] ([address]) Eosinophils/100 0.1 1 - 6 % Low 08-18-2019 [place] WBC (Bld) [place] ([address]) Erythrocyte 13.4 11.5 - % 08-18-2019 [facility] distribution width 14.5 H ealth- (RBC) [Ratio] [place] ([address]) Granulocytes/100 79.7 40 - 80 % 08-18-2019 Me [facility]cy WBC (Bld) [place] ([address]) Hematocrit (Bld) 22.9 35 - 47 % Low 08-18-2019 Me [facility]cy [Volume fraction] [place] ([address]) Hemoglobin (Bld) 7.9 11.7 - 16 g/dL Low 08-18-2019 Me [facility]cy [Mass/Vol] [place] ([address]) Interpretation and Abnormal 08-18-2019 [facility] review of [facility] ([address]) Lymphocytes (Bld) 0.7 1 - 4.3 10*3/uL Low 08-18-2019 M ercy [#/Vol] [place] ([address]) Lymphocytes/100 10.0 20 - 40 % Low 08-18-2019 [facility] [place] WBC (Bld) [place] ([address]) MCH (RBC) [Entitic 30.6 26 - 34 pg 08-18-2019 [facility] mass] [place] ([address]) MCHC (RBC) 34.5 32 - 36 % 08-18-2019 [facility] [Mass/Vol] [place] ([address]) MCV (RBC) [Entitic 88.6 79 - 98 fL 08-18-2019 [facility] vol] [place] ([address]) Monocytes (Bld) 0.7 0 - 0.8 10*3/uL 08-18-2019 [facility] [#/Vol] [place] ([address]) Monocytes/100 WBC 10.0 2 - 10 % 08-18-2019 [place]cy (Bld) [place] ([address]) Platelet mean 7.8 7.4 - fL 08-18-2019 [facility] volume (Bld) 10.4 [facility] [Entitic vol] [place] ([address]) Platelets (Bld) 188 140 - 440 10*3/uL 08-18-2019 Dora [facility] [#/Vol] [place] ([address]) RBC (Bld) [#/Vol] 2.59 3.8 - 5.2 10*6/uL Low 08-18-2019 [place] ([address]) WBC (Bld) [#/Vol] 7.3 3.6 - 10*3/uL 08-18-2019 [place] 10.7 [place] ([address]) Test Performed 08-18-2019 [facility] [place], [address] [place] [address], ([address]) [place] [address] ABO and Rh group 2800 08-18-2019 Hi rcy Nom (Bld) [place] ([address]) Blood product unit [id number] 020 [facility] ID (Dose) [#] [place] ([address]) Sodium [Moles/Vol] transfused 08-18-2019 [place] ([address]) Sodium [Moles/Vol] [id number] 08-18-2019 [place] ([address]) Sodium [Moles/Vol] [id number] mmol/L 08-18-19 20 [place] ([address]) 08-18-2019 [place] ([address]) ABO and Rh group 7300 08-18-2019 Hi [place]cy Nom (Bld) [place] ([address]) ABO and Rh group 1700 08-18-2019 Hi [place]cy [place] (Bld) [place] ([address]) Blood product unit [id number] [facility] ID (Dose) [#] [place] ([address]) Blood product unit [id number] [facility] ID (Dose) [#] [place] ([address]) Sodium [Moles/Vol] [id number] mmol/L 08-18-19 [place] ([address]) Sodium [Moles/Vol] transfused 08-18-2019 [place] ([address]) Sodium [Moles/Vol] [id number] 08-18-2019 [place] ([address]) 08-18-2019 [place] ([address]) vancomycin trough o n 2019-08-17 Vancomycin Trough 11.7 15.0-20.0 ug/mL Low 08-17-2019 [facility] (09556) Comment: Result Comment: . Performed By: #### VANCT ### #[facility] [employer] [place] renal function on Calcium [Mass/Vol] 8.8 8.4-10.4 mg/dL Normal 08-17-2019 [facility] (76806) Comment: Performed By: #### HEMDF, RE NL3, MG3 ####[employer] [place], [place] Glucose [Mass/Vol] 127 70-100 mg/dL High 08-17-2019 [facility] (52675) Comment: Performed By: #### HEMDF, RE NL3, MG3 ####[employer] [place], [place] Phosphate [Mass/Vol] 3.8 2.5-4.5 mg/dL Normal 0 [facility] (75547) Comment: Performed By: #### HEMDF, RE NL3, MG3 ####[employer] [address] [place], [place] Anion gap [Moles/Vol] 10 Normal 08-17-19 [facility] (22530) Comment: Performed By: #### HEMDF, RE NL3, MG3 ####[facility] [employer] [address] [place], [place] CO2 [Moles/Vol] 25 22-30 mmol/L Normal 08-17-2019 [facility] (84653) Comment: Performed By: #### HEMDF, RE NL3, MG3 ####[facility] [employer] [address] [place], [place] Creatinine [Mass/Vol] 0.58 0.52-1.25 mg/dL Normal 08-17-19 [facility] (92197) Comment: Performed By: #### HEMDF, RE NL3, MG3 ####[facility] [employer] [place], [place] GFR/1.73 sq M > 60.0 >60 mL/min/{1.73_m2} Normal 0 [facility] predicted among Syst em (22682) blacks MDRD (S/P/Bld) [Vol rate/Area] Comment: Performed By: #### HEMDF, RE NL3, MG3 ####[facility] [employer] [address] [place], [place] GFR/1.73 sq M > 60.0 >60 mL/min/{1.73_m2} Normal 0 [facility] predicted among Syst em (15880) non-blacks MDRD (S/P/Bld) [Vol rate/Area] Comment: Result Comment: Source- MDRD equation with creatinine calibration to IDMS(NKDEP) eGFR not recommended for nicolas g dose adjustment Performed By: #### HEMDF, RE NL3, MG3 ####[employer] [address] [place], [place] Urea nitrogen [Mass/Vol] 15 7-20 mg/dL Normal 08-16 [facility] (87904) Comment: Performed By: #### HEMDF, RE NL3, MG3 ####[facility] [address] [place] [address] Albumin [Mass/Vol] 3.5 3.5-5.0 g/dL Normal 08-17-2019 [facility] (25861) Comment: Performed By: #### HEMDF, RE NL3, MG3 ####[facility] [address] [place], [place] Chloride [Moles/Vol] 98 98-107 mmol/L Normal 0 [facility] (48792) Comment: Performed By: #### HEMDF, RE NL3, MG3 ####[facility] [address] [place], [place] Potassium [Moles/Vol] 4.3 3.5-5.1 mmol/L Normal 08-17-19 20 [facility] (18051) Comment: Performed By: #### HEMDF, RE NL3, MG3 ####[facility] [address] [place], [place] Sodium [Moles/Vol] 133 135-145 mmol/L Low 08-17-2019 [facility] (44622) Comment: Performed By: #### HEMDF, RE NL3, MG3 ####[facility] [address] [place], [place] op note on Op Note [facility] Normal 03-0 [facility] (64102) [address] [place] [address] Dept: [phone] Loc: [phone] Operative Report Patient Name: Denys Arriola Date of : 1985 Date of Surgery: 08/17/19 Location: [facility] Preoperative Diagnosis: 1. 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 ALT free flap from Right thigh to LLE 2. placement of bone cement Surgeon: Jesse Burnham MD 1st Assist: Mehreen PGY 8 2nd Assist: Wild PGY 6 Implants: 2mm & 2.5 mm resource center teacher, Pallikos bone cement with 3 G Vancomycin [...] patient's ASA was verified by the nurse systems analyst developer and the anesthesia staff. Fire risk was assessed. The anterior incision was made over the rectus femoris. This incison was carried to the fascia level and the subfascial place was the n entered and elevated laterally exposing both the distal fat stripe mar elmira the interval between the Vastus Lateralis and the Rectus Femoris. A stone spreader operator was identified along the axis corresponding to the preoperatively marked si gnal. This was circumferentially dissected. The entirety of the medial inci petrona was then completed and the subfascial dissection was continued. At th is point the lateral incision was made and the flap was isolated on its p erforator. The stone spreader operator was then dissected cephalad and freed circu mferentially until the confluence of the transverse branch and the large branch to the rectus femoris. The isolated stone spreader operator was very small and there was a large amount of subcutaneous fat. On initial dissection the pr eviously placed cement spacer completely fell out of the bone. I discussed this with the investor relations manager orth opedic surgeon and as per our [...] even after a Blu with a 3 Vietnamese and 2 Vietnamese Fog arty were passed, the greater saphenous [...] heparin saline. Then using a 2 mm resource center teacher these were anast omosed. Attention was then [...] skin closure, the due to the single stone spreader operator I do not feel comfortable doing [...] Magnesium [Mass/Vol] 1.4 1.6-2.3 mg/dL Low 0 [facility] (98836) Comment: Performed By: #### HEMDF, RE NL3, MG3 ####[facility] [employer] [address] [place], [place] hemogram on 2019-08 Erythrocyte distribution 13.8 11.5-14.5 % Normal 08-16 [facility] width (RBC) [Ratio] (75003) Comment: Performed By: #### TROPN ### # [facility] [address] [place], [place] Hematocrit (Bld) [Volume 32.2 35.0-47.0 % Low 08-16 [facility] System fraction] (98482) Comment: Performed By: #### TROPN ### # [facility] [address] [place] [address] Hemoglobin (Bld) [Mass/Vol] 10.9 11.7-16.0 g/dL Low [facility] (88428) Comment: Performed By: #### TROPN ### # [facility] [address] [place], [place] MCH (RBC) [Entitic mass] 30.0 26.0-34.0 pg Normal 08-16 [facility] (69321) Comment: Performed By: #### TROPN ### # [facility] [address] [place], [place] MCHC (RBC) [Mass/Vol] 33.8 32.0-36.0 % Normal 08-17-19 20 [facility] (92846) Comment: Performed By: #### TROPN ### # [place] [address] [place], [place] MCV (RBC) [Entitic vol] 88.6 79.0-98.0 fL Normal 2019 [facility] (28817) Comment: Performed By: #### TROPN ### # [place] [address] [address] [place] Platelet mean volume (Bld) 8.0 7.4-10.4 fL Normal [facility] [Entitic vol] (44848 ) Comment: Performed By: #### TROPN ### # [place] [address] [address] [place], [place] Platelets (Bld) [#/Vol] 282 140-440 10*3/uL Normal 2019 [facility] (27209) Comment: Performed By: #### TROPN ### # [place] [address] [address] [place], [place] RBC (Bld) [#/Vol] 3.63 3.80-5.20 10*6/uL Low 08-17-2019 [facility] (59487) Comment: Performed By: #### TROPN ### # [place] [address] [address] [place], [place] WBC (Bld) [#/Vol] 8.5 3.6-10.7 10*3/uL Normal 08-17-2019 [facility] (39076) Comment: Performed By: #### TROPN ### # [place] [address] [address] [place], [place] hemogram w/ autodiff on 2019-08-17 Abs Baso Cnt 0.0 0.0-0.2 10*3/uL Normal 08-17-2019 [facility] (74520) Comment: Performed By: #### HEMDF, RE NL3, MG3 ####[facility] [address] [place], [place] Abs Neutrophile Cnt 15.4 1.8-7.0 10*3/uL High 08-17-2019 [facility] (20417) Comment: Performed By: #### HEMDF RE NL3, MG3 ####[facility] [address] [place], [place] Basophils/100 WBC (Bld) 0.1 0.0-2.0 % Normal 2019 [facility] (83345) Comment: Performed By: #### HEMDF RE NL3, MG3 ####[place] [id number] [place], [place] Eosinophils (Bld) [#/Vol] 0.0 0.0-0.5 10*3/uL Normal [facility] (62397) Comment: Performed By: #### HEMOLAYINKA RE NL3, MG3 ####[facility] [address] [place], [place] Eosinophils/100 WBC (Bld) 0.0 1.0-6.0 % Low [facility] (87488) Comment: Performed By: #### HEMOLAYINKA RE NL3, MG3 ####[address] [place] Erythrocyte distribution 13.2 11.5-14.5 % Normal 08-16 [facility] width (RBC) [Ratio] (78503) Comment: Performed By: #### HEMDF, RE NL3, MG3 ####[facility] [address] [place] Granulocytes/100 WBC (Bld) 92.7 40.0-80.0 % High [facility] (72182) Comment: Performed By: #### HEMDF, RE NL3, MG3 ####[facility] [address] [place] Hematocrit (Bld) [Volume 22.4 35.0-47.0 % Low 08-16 [facility] fraction] (75624) Comment: Performed By: #### HEMOLAYINKA RE NL3, MG3 ####[address] Hemoglobin (Bld) [Mass/Vol] 7.5 11.7-16.0 g/dL Low [facility] (48580) Comment: Performed By: #### HEMOLAYINKA RE NL3, MG3 ####[address] Lymphocytes (Bld) [#/Vol] 0.6 1.0-4.3 10*3/uL Low [facility] (78176) Comment: Performed By: #### HEMOLAYINKA RE NL3, MG3 ####[address] Lymphocytes/100 WBC (Bld) 3.7 20.0-40.0 % Low 0 [facility] (74707) Comment: Performed By: #### HEMOLAYINKA RE NL3, MG3 ####[address] MCH (RBC) [Entitic mass] 29.5 26.0-34.0 pg Normal 08-16 [facility] (22661) Comment: Performed By: #### HEMOLAYINKA RE NL3, MG3 ####[address] MCHC (RBC) [Mass/Vol] 33.8 32.0-36.0 % Normal 08-17-19 [facility] (34922) Comment: Performed By: #### HEMDF RE NL3, MG3 ####[address] MCV (RBC) [Entitic vol] 87.4 79.0-98.0 fL Normal 2019 [facility] (80894) Comment: Performed By: #### HEMDF RE NL3, MG3 ####[facility] [address] [place], [place] Monocytes (Bld) [#/Vol] 0.6 0.0-0.8 10*3/uL Normal 2019 [facility] (92864) Comment: Performed By: #### HEMDF, RE NL3, MG3 ####[facility] [address] [place], [place] Monocytes/100 WBC (Bld) 3.5 2.0-10.0 % Normal 2019 [facility] (40697) Comment: Performed By: #### HEMDF, RE NL3, MG3 ####[facility] [address] [place], [place] Platelet mean volume (Bld) 7.7 7.4-10.4 fL Normal [facility] [Entitic vol] (46083 ) Comment: Performed By: #### HEMDF, RE NL3, MG3 ####[facility] [address] [place], [place] Platelets (Bld) [#/Vol] 265 140-440 10*3/uL Normal 2019 [facility] (75477) Comment: Performed By: #### HEMDF, RE NL3, MG3 ####[facility] Infra[facility]one [address] [place], [place] RBC (Bld) [#/Vol] 2.56 3.80-5.20 10*6/uL Low 08-17-2019 [facility] (91211) Comment: Performed By: #### HEMDF, RE NL3, MG3 ####[facility] [address] [facility], [place] WBC (Bld) [#/Vol] 16.6 3.6-10.7 10*3/uL High 08-17-2019 [facility] (95301) Comment: Performed By: #### HEMDF, RE NL3, MG3 ####[facility] [address] [place], [place] culture and stain - tissue on 2019-08-17 CULTURE AND STAIN STAIN GRAM --> Status: F Normal 08-17-2019 [facility] - TISSUE Few polymorphonuclear cells/lpf. System (73637) No organisms seen. No organisms seen. 1 Organism Corynebacterium striatum Few Possible identification For identification and/or sensitivity, refer to culture collected on: 08/14/2019 at 08:15 ([id number]). Comment: Order Comment: Specimen cat ected in O.R. Performed By: #### Alla HILLS/ MICAELA #### [facility] [address] [place] [address] CULTURE AND STAIN STAIN GRAM --> Status: F Normal 08-17-2019 [facility] - TISSUE Few polymorphonuclear cells/lpf. System (83403) No organisms seen. No organisms seen. 1 Organism Corynebacterium striatum Rare Possible identification For identification and/or sensitivity, refer to culture collected on: 08/14/2019 at 08:15 ([id number]). Comment: Order Comment: Specimen cat ected in O.R. Performed By: #### Alla HILLS/ MICAELA #### [facility] [address] [place] [address] CULTURE STAIN GRAM --> Status: F Normal 08-16 [facility] AND Few polymorphonuclear cells/lpf. Health STAIN - No organisms seen. S ystem TISSUE No organisms seen. ( 18863) 1 Organism Corynebacterium striatum Few Possible identification 1 Organism Antibiotic Result Intrp Ceftriaxone(BP) > 32 R Penicillin(BP) > 32 R Vancomycin(BP) = 0.50 S Comment: Order Comment: Specimen cat ected in O.R. Performed By: #### CXTIS ### # [facility] System [address] [place] [address] [facility] System [address] [place], [place] [id number] #### C/MICAELA #### [facility] System [address] [place] [address] cr tibia/fibula 2 views bilateral on 2019-08-17 CR Tibia/Fibula 2 Patient Name: DENYS ARRIOLA mal 08-17-2019 [facility] Views Bilateral System ([id number]) Diagnostic Radiology Exam Date/Time 08/17/2019 14:30:00 EST Exam CR Tibia/Fibula 2 Views Bilateral Ordering Physician MD BURNHAM DYLAN R Accession Number [id number] CPT4 Codes 59309 () Reason For Exam incorrect count in [...] Name: DENYS ARRIOLA l 08-17-2019 [facility] System Right (20412 ) Diagnostic Radiology Exam Date/Time 08/17/2019 14:30:00 EST Exam CR Femur 1 View Right n Ordering Physician MD BURNHAM DYLAN R Accession Number [id number] CPT4 Codes 81921 () Reason For Exam incorrect count in [...] 3+ Views Patient Name: DENYS ARRIOLA 08-17-2019 [facility] Left (46274 ) Diagnostic Radiology Exam Date/Time 08/17/2019 18:42:14 EST Exam CR Ankle 3+ Views Left Ordering Physician STEVEN KNUTSON Accession Number [id number] CPT4 Codes 26523 () Reason For Exam post op ankle [...] 2019-08-17 Anion gap [Moles/Vol] 6 Normal 08-17-19 [facility] (42587) Comment: Performed By: #### TROPN ### # [facility] [address] [place] [address] Calcium [Mass/Vol] 8.7 8.4-10.4 mg/dL Normal 08-17-2019 [facility] (09986) Comment: Performed By: #### TROPN ### # [facility] [address] [place] [address] CO2 [Moles/Vol] 26 22-30 mmol/L Normal 08-17-2019 [facility] (91530) Comment: Performed By: #### TROPN ### # [facility] [address] [place] [address] Glucose [Mass/Vol] 97 70-100 mg/dL Normal 08-17-2019 [facility] (91684) Comment: Performed By: #### TROPN ### # [facility] [address] [place] [address] Urea nitrogen [Mass/Vol] 26 7-20 mg/dL High 08-16 [facility] (39134) Comment: Performed By: #### TROPN ### # [facility] [address] [place] [address] Creatinine [Mass/Vol] 0.63 0.52-1.25 mg/dL Normal 08-17-19 20 [facility] (13478) Comment: Performed By: #### TROPN ### # [facility] [address] [place] [address] GFR/1.73 sq M > 60.0 >60 mL/min/{1.73_m2} Normal 0 [facility] In[facility] predicted among Syst em (05357) blacks MDRD (S/P/Bld) [Vol rate/Area] Comment: Performed By: #### TROPN ### # [facility] [address] [place] [address] GFR/1.73 sq M > 60.0 >60 mL/min/{1.73_m2} Normal 0 [facility] predicted among Syst em (60351) non-blacks MDRD (S/P/Bld) [Vol rate/Area] Comment: Result Comment: Source- MDRD equation with creatinine calibration to IDMS(NKDEP) eGFR not recommended for nicolas g dose adjustment Performed By: #### TROPN ### # [facility] [address] [place] [address] Chloride [Moles/Vol] 104 98-107 mmol/L Normal 0 [facility] (61285) Comment: Performed By: #### TROPN ### # [facility] [address] [place], [place] Potassium [Moles/Vol] 4.3 3.5-5.1 mmol/L Normal 08-17-19 20 [facility] (16153) Comment: Performed By: #### TROPN ### # [facility] [address] [place], [place] Sodium [Moles/Vol] 136 135-145 mmol/L Normal 08-17-2019 [facility] (23192) Comment: Performed By: #### TROPN ### # [facility] [address] [place], [place] No panel information on 2019-08-17 ABO and Rh group 7300 08-17-2019 [facility] Nom (Bld) [place] ([address]) Blood product unit [id number] 020 [facility] ID (Dose) [#] [place] ([address]) Blood product unit [id number] 020 [facility] ID (Dose) [#] [place] ([address]) Sodium [Moles/Vol] [id number] mmol/ 08-17-19 20 [place] ([address]) Sodium [Moles/Vol] transfused 08-17-2019 [place] ([address]) Sodium [Moles/Vol] [id number] 08-17-2019 [place] ([address]) Sodium [Moles/Vol] 207010236022 mmol/ 03-07-20 20 [place] ([address]) 08-17-2019 [place] ([address]) Hematocrit (Bld) 17.6 35 - 47 % Low 08-17-2019 Me [place] [Volume fraction] [place] ([address]) Hemoglobin (Bld) 6.1 11.7 - g/dL Critically low 08-17-19 20 [facility] [Mass/Vol] 16 [place] ([address]) Interpretation and Abnormal 08-17-2019 [facility] review of [facility] , laboratory results K Y (41145) Test Performed by 08-17-2019 [facility] System, [address] [place] (9 2637) [place] [address] Albumin [Mass/Vol] 3.5 3.5 - 5 g/dL 08-17-2019 [place] ([address]) Anion gap 10 mmol/ 08-17-2019 [facility] [Moles/Vol] [place] ([address]) Calcium [Mass/Vol] 8.8 8.4 - mg/dL 08-17-2019 [facility] 10.4 [place] ([address]) Chloride 98 98 - 107 mmol/ 08-17-2019 [facility] [Moles/Vol] [place] ([address]) CO2 [Moles/Vol] 25 22 - 30 mmol/ 08-17-2019 [place] ([address]) Creatinine 0.58 0.52 - mg/dL 08-17-2019 [facility] [Mass/Vol] 1.25 [place] ([address]) EGFR IF NonAfrican >60.0 >60 08-17-2019 [facility] [place] mL/[place] ([address]) Comment: Source- MDRD equation with c reatinine calibration to IDMS(NKDEP) eGFR not recommended for nicolas g dose adjustment GFR/1.73 sq M >60.0 >60 mL/min/{1.73_m2} 0 [facility] predicted among mL/min Heal th- blacks MDRD [place] (S/P/Bld) [Vol (4523 7) rate/Area] Glucose 127 70 - mg/dL High 08-17-2019 [facility] [Mass/Vol] [address] [place] ([address]) Interpretation Abnormal 08-17-2019 [facility] and review of Health - laboratory [place] results ([address]) Magnesium 1.4 1.6 - mg/dL Low 08-17-2019 [facility] [Mass/Vol] 2.3 [place] ([address]) Phosphate 3.8 2.5 - mg/dL 08-17-2019 [facility] [Mass/Vol] 4.5 [place] ([address]) Potassium 4.3 3.5 - mmol/L 08-17-2019 [facility] [Moles/Vol] 5.1 [place] ([address]) Sodium 133 135 - mmol/L Low 08-17-2019 [facility] [Moles/Vol] 145 [place] ([address]) Urea nitrogen 15 7 - 20 mg/dL 08-17-2019 [facility] [Mass/Vol] [place] ([address]) Test Performed by 08-17-[address] [facility] E. [place], Y [facility], ( [address]) [place] [address] [facility] Incoming Radiology Results From [facility] - 2019 7:02 PM EST 08-17-2019 [place], [place] Patient Name: DENYS ARRIOLA ([id number]) ---Diagnostic Radiology--- Exam Date/Time 08/17/2019 18:42:14 EST Exam CR Ankle 3+ Views Left Ordering Physician STEVEN KNUTSON Accession Number [id number] CPT4 Codes 52352 () Reason For Exam post op ankle [...] 08-17-2019 DENYS Sargent - Eliana HOBBS ( [address]) ---Diagnostic Radiology--- Exam Date/Time 08/17/2019 18:42:14 EST Exam CR Ankle 3+ Views Left Ordering Physician STEVEN KNUTSON Accession Number [id number] CPT4 Codes 66879 () Reason For Exam post op ankle [...] 0.0 0 - 0.2 10*3/uL 08-17-2019 [place] ([address]) Absolute Neut # 15.4 1.8 - 7 10*3/uL High 08-17-2019 [place] ([address]) Basophils/100 0.1 0 - 2 % 08-17-2019 [facility] WBC (Bld) [place] ([address]) Eosinophils 0.0 0 - 0.5 10*3/uL 08-17-2019 [facility] (Bld) [#/Vol] [place] ([address]) Eosinophils/100 0.0 1 - 6 % Low 08-17-2019 D[facility] cy WBC (Bld) [place] ([address]) Erythrocyte 13.2 11.5 - % 08-17-2019 [facility] distribution 14.5 Health- width (RBC) [place] [Ratio] ([address]) Granulocytes/10 92.7 40 - 80 % High 08-17-2019 Dora cy 0 WBC (Bld) [place] ([address]) Hematocrit 22.4 35 - 47 % Low 08-17-2019 [facility] (Bld) [Volume Health - fraction] [place] ([address]) Hemoglobin 7.5 11.7 - g/dL Low 08-17-2019 [facility] (Bld) 16 Health- [Mass/Vol] [place] ([address]) Interpretation Abnormal 08-17-2019 [facility] and review of Health - laboratory [place] results ([address]) Lymphocytes 0.6 1 - 4.3 10*3/uL Low 08-17-2019 [facility] (Bld) [#/Vol] [place] ([address]) Lymphocytes/100 3.7 20 - 40 % Low 08-17-2019 D[facility] cy WBC (Bld) [place] ([address]) MCH (RBC) 29.5 26 - 34 pg 08-17-2019 [facility] [Entitic mass] [place] ([address]) MCHC (RBC) 33.8 32 - 36 % 08-17-2019 [facility] [Mass/Vol] [place] ([address]) MCV (RBC) 87.4 79 - 98 fL 08-17-2019 [facility] [Entitic vol] [place] ([address]) Monocytes (Bld) 0.6 0 - 0.8 10*3/uL 08-17-2019 Dora cy [#/Vol] [place] ([address]) Monocytes/100 3.5 2 - 10 % 08-17-2019 [facility] WBC (Bld) [place] ([address]) Platelet mean 7.7 7.4 - fL 08-17-2019 [facility] volume (Bld) 10.4 [facility] [Entitic vol] [place] ([address]) Platelets (Bld) 265 140 - 10*3/uL 08-17-2019 Dora cy [#/Vol] 440 [place] ([address]) RBC (Bld) 2.56 3.8 - 10*6/uL Low 08-17-2019 [facility] [#/Vol] 5.2 [place] ([address]) WBC (Bld) 16.6 3.6 - 10*3/uL High 08-17-2019 [facility] [#/Vol] 10.7 [place] ([address]) Test Performed by 08-17-2019 [facility], [address] [place], K Y [facility], ( [address]) [place] [address] [facility], [facility] Radiology [facility] 5:08 PM EST 08-17-2019 [place], [place] Patient Name: DENYS ARRIOLA ([id number]) ---Diagnostic Radiology--- Exam Date/Time 08/17/2019 14:30:00 EST Exam CR Tibia/Fibula 2 Views Bilateral Ordering Physician MD BURNHAM DYLAN R Accession Number [id number] CPT4 Codes 91780 () Reason For Exam incorrect count in [...] DENYS Sargent [facility]- [place] ( [id number]) ---Diagnostic Radiology--- Exam Date/Time 08/17/2019 14:30:00 EST Exam CR Tibia/Fibula 2 Views Bilateral Ordering Physician MD BURNHAM DYLAN R Accession Number [id number] CPT4 Codes 63788 () Reason For Exam incorrect count in [...] 08/17/2019 5:05 Patient Name: 08-17-2019 [facility] [place], [facility] ( [id number]) ---Diagnostic Radiology--- Exam Date/Time 08/17/2019 14:30:00 EST Exam CR Femur 1 View Right n Ordering Physician MD BURNHAM DYLAN R Accession Number [id number] CPT4 Codes 08118 () Reason For Exam incorrect count in surgery Report Right femur CLINICAL INDICATION: Incorrect intraoperative films. Missing a plastic clip quitnana. AP view was obtained. Metallic density renaldo [...] 5:03 [facility] Incoming Radiology Results From [facility] - 2019 5:06 PM EST 08-17-2019 [place] Patient Name: DENYS ARRIOLA ([id number]) ---Diagnostic Radiology--- Exam Date/Time 08/17/2019 14:30:00 EST Exam CR Femur 1 View Right n Ordering Physician MD BURNHAM DYLAN R Accession Number [id number] CPT4 Codes 95039 () Reason For Exam incorrect count in [...] 08-17-2019 [facility] [Relative time] [place] ([address]) Interpretation Abnormal 08-17-2019 [facility] and review of Health - laboratory [place] results ([address]) Tissue Few 08-17-2019 [facility] Cult/Smear, Aer Possible identification Health- For identification and/or sensitivity, refer to culture [place] collected on: 08/14/2019 at 08:15 ([id number]). (32211) Tissue Corynebacterium Abnormal 08-17-2019 [facility] cy Cult/Smear, [place] ([address]) Test Performed by 08-17-2019 [facility], [address] [place], K Y [facility], ( [address]) [place] [address] Specimen collected in O.R. INR Coag (Bld) Few polymorphonuclear cells/lpf. 08-17-2019 [facility] [Relative time] [place] ([address]) Interpretation Abnormal 08-17-2019 [facility] and review of Health - laboratory [place] results ([address]) Tissue Rare 08-17-2019 [facility] Cult/Smear, Aer Possible identification [facility] For identification and/or sensitivity, refer to culture [place] collected on: 08/14/2019 at 08:15 ([id number]). (08113) Tissue Corynebacterium Abnormal 08-17-2019 [facility] cy Cult/Smear, [place] ([address]) Test Performed by 08-17-[address] [facility], [address] [place], Email Data Source [facility], ( [address]) [place] [address] Specimen collected in O.R. INR Coag (Bld) Few polymorphonuclear cells/lpf. 08-17-2019 [facility] [Relative time] [place] ([address]) Interpretation Abnormal 08-17-2019 [facility] and review of Health - laboratory [place] results ([address]) Tissue Corynebacterium Abnormal 08-17-2019 [facility] cy Cult/Smear, Aer [place] ([address]) Tissue Few 08-17-2019 [facility] Cult/Smear, [place] ([address]) Test Performed by 08-17-[address] [facility] E. [place], Email Data Source Y [facility], ( [address]) [place] [address] Specimen collected in O.R. Interpretation Abnormal 08-17-2019 [facility] and review of Health - laboratory [place] results ([address]) Vancomycin Tr 11.7 15 - 20 ug/mL Low 08-17-2019 [place] ([address]) Comment: . Test Performed by 08-17-2019 [place] ([address]) System, [address] [place] [address], [place] [address] Anion gap 6 mmol/L 08-17-2019 [facility] lt- [Moles/Vol] [place] ( [address]) Calcium [Mass/Vol] 8.7 8.4 - 10.4 mg/dL 08-17-2019 [place], [place] ([address]) Chloride 104 98 - 107 mmol/L 08-17-2019 [facility] lt- [Moles/Vol] [place] ( [address]) CO2 [Moles/Vol] 26 22 - 30 mmol/L 08-17-2019 [place] ([address]) Creatinine 0.63 0.52 - 1.25 mg/dL 08-17-2019 [facility] [Mass/Vol] [place], [place] (4 [address]) EGFR IF NonAfrican >60.0 >60 mL/min 08-17-2019 [facility] [place] ([address]) Comment: Source- MDRD equation with c reatinine calibration to IDMS(NKDEP) eGFR not recommended for nicolas g dose adjustment GFR/1.73 sq M >60.0 >60 mL/min mL/min/{1.73_m2} 08-17-19 20 [facility] predicted among [facility] [place], blacks MDRD [place] ([address]) (S/P/Bld) [Vol rate/Area] Glucose [Mass/Vol] 97 70 - 100 mg/dL 08-17-2019 [place] ([address]) Interpretation and Abnormal 08-17-2019 [facility] review of [facility] , laboratory results K Y ([address]) Potassium 4.3 3.5 - 5.1 mmol/L 08-17-2019 [facility] [Moles/Vol] [place] ([address]) Sodium [Moles/Vol] 136 135 - 145 mmol/L 08-17-2019 [place] ([address]) Urea nitrogen 26 7 - 20 mg/dL High 08-17-2019 [facility] [Mass/Vol] [place] ([address]) Test 08-17-2019 [facility] Performed by [facility] (499 57) [address] [address] Erythrocyte 13.8 11.5 - % 08-17-2019 [facility] distribution width 14.5 [facility] ([facility]BC) [Ratio] [place] (87 [address]) Hematocrit (Bld) 32.2 35 - 47 % Low 08-17-2019 Me rcy [Volume fraction] [place] ([address]) Hemoglobin (Bld) 10.9 11.7 - 16 g/dL Low 08-17-2019 Me rcy [Mass/Vol] [place] ([address]) Interpretation and Abnormal 08-17-2019 [facility] review of [facility] , laboratory results K Y ([address]) MCH (RBC) [Entitic 30.0 26 - 34 pg 08-17-2019 [facility] mass] [place] ([address]) MCHC (RBC) 33.8 32 - 36 % 08-17-2019 [facility] [Mass/Vol] [facility] ([address]) MCV (RBC) [Entitic 88.6 79 - 98 fL 08-17-2019 [facility] vol] [place] ([address]) Platelet mean 8.0 7.4 - 10.4 fL 08-17-2019 [facility] volume (Bld) [facility], [Entitic vol] [place] (45 [address]) Platelets (Bld) 282 140 - 440 10*3/uL 08-17-2019 D[facility] cy [#/Vol] [place] ([address]) RBC (Bld) [#/Vol] 3.63 3.8 - 5.2 10*6/uL Low 08-17-2019 [place] ([address]) WBC (Bld) [#/Vol] 8.5 3.6 - 10.7 10*3/uL 08-17-2019 [place] ([address]) Test 08-17-2019 [facility] Performed by [facility] (452 37) System, [address] [place] [address] ts gel on 6 TS GEL ABO Group: Normal 08-16-2019 [place] [facility] ([address]) B Rh, Gel: POS Antibody Screen Gel: NEG Comment: Performed By: #### TROPN ### # [facility] [employer] [address] [address] prothrombin time on 2019-08-16 INR Coag (PPP) [Relative 1.0 0.9-1.1 Normal 08-15 [facility] time] (36473) Comment: Result Comment: Recommended Anticoagulant Therapy: SEE [...] Infarction Performed By: #### TROPN ### # [facility] [address] [place], [place] PT Coag (PPP) [Time] 10.4 9.0-12.0 s Normal 0 [facility] (91035) Comment: Result Comment: . Performed By: #### TROPN ### # [place] [address] [address] [place] hemogram on 2019-08 Erythrocyte distribution 13.5 11.5-14.5 % Normal 08-15 [facility] width (RBC) [Ratio] (92456) Comment: Performed By: #### TROPN ### # [place] [address] [address] [place] Hematocrit (Bld) [Volume 32.4 35.0-47.0 % Low 08-15 [facility] System fraction] (86553) Comment: Performed By: #### TROPN ### # [place] [address] [address] [place] Hemoglobin (Bld) [Mass/Vol] 10.9 11.7-16.0 g/dL Low [facility] (53484) Comment: Result Comment: repeated Performed By: #### TROPN ### # [place] [address] [address] [place] MCH (RBC) [Entitic mass] 29.7 26.0-34.0 pg Normal 08-15 [facility] (58150) Comment: Performed By: #### TROPN ### # [place] [address] [address] [place] MCHC (RBC) [Mass/Vol] 33.5 32.0-36.0 % Normal 08-16-19 20 [facility] (90794) Comment: Performed By: #### TROPN ### # [place] [address] [address] [place] MCV (RBC) [Entitic vol] 88.7 79.0-98.0 fL Normal 2019 [facility] (71883) Comment: Performed By: #### TROPN ### # [facility] [address] [place], [place] Platelet mean volume (Bld) 8.7 7.4-10.4 fL Normal [facility] [Entitic vol] (53007 ) Comment: Performed By: #### TROPN ### # [facility] [address] [place], [place] Platelets (Bld) [#/Vol] 247 140-440 10*3/uL Normal 2019 [facility] (10008) Comment: Performed By: #### TROPN ### # [place] [address] [address] [place], [place] RBC (Bld) [#/Vol] 3.65 3.80-5.20 10*6/uL Low 08-16-2019 [facility] (71876) Comment: Performed By: #### TROPN ### # [place] [address] [address] [place] WBC (Bld) [#/Vol] 9.0 3.6-10.7 10*3/uL Normal 08-16-2019 [facility] (02360) Comment: Performed By: #### TROPN ### # [place] [address] [address] [place] basic metabolic panel on 2019-08-16 Calcium [Mass/Vol] 8.7 8.4-10.4 mg/dL Normal 08-16-2019 [facility] (76632) Comment: Performed By: #### TROPN ### # [facility] [address] [place] Anion gap [Moles/Vol] 7 Normal 08-16-19 [facility] (11514) Comment: Performed By: #### TROPN ### # [facility] [address] [place] CO2 [Moles/Vol] 25 22-30 mmol/L Normal 08-16-2019 [facility] (90319) Comment: Performed By: #### TROPN ### # [facility] System [address] [place] [address] Creatinine [Mass/Vol] 0.69 0.52-1.25 mg/dL Normal 08-16-19 20 [facility] (94348) Comment: Performed By: #### TROPN ### # [facility] [address] [place] [address] GFR/1.73 sq M > 60.0 >60 mL/min/{1.73_m2} Normal 0 [facility] predicted among Syst em ([address]) blacks MDRD (S/P/Bld) [Vol rate/Area] Comment: Performed By: #### TROPN ### # [facility] [address] [place] GFR/1.73 sq M > 60.0 >60 mL/min/{1.73_m2} Normal 0 [facility] predicted among Syst em (414[address]) non-blacks MDRD (S/P/Bld) [Vol rate/Area] Comment: Result Comment: Source- MDRD equation with creatinine calibration to IDMS(NKDEP) eGFR not recommended for nicolas g dose adjustment Performed By: #### TROPN ### # [facility] [employer] [place] [address] [address] [place] Glucose [Mass/Vol] 96 70-100 mg/dL Normal 08-16-2019 [facility] ([address]) Comment: Performed By: #### TROPN ### # [facility] System [address] [place], [place] Urea nitrogen [Mass/Vol] 22 7-20 mg/dL High 08-15 [facility] ([address]92) Comment: Performed By: #### TROPN ### # [facility] [address] [place], [place] Chloride [Moles/Vol] 104 98-107 mmol/L Normal 0 [facility] (64920) Comment: Performed By: #### TROPN ### # [facility] [address], [place] Potassium [Moles/Vol] 3.8 3.5-5.1 mmol/L Normal 08-16-19 20 [facility] ([address]109) Comment: Performed By: #### TROPN ### # [facility] [address] [place] [address] Sodium [Moles/Vol] 136 135-145 mmol/L Normal 08-16-2019 [facility] (32024) Comment: Performed By: #### TROPN ### # [facility] [address] [place] [address] No panel information on 2019-08-16 Erythrocyte distribution 13.5 11.5 - 14.5 % [place] width (RBC) [Ratio] ([address]40) Hematocrit (Bld) [Volume 32.4 35 - 47 % Low 08-15 [place] fraction] ([address]) Hemoglobin (Bld) [Mass/Vol] 10.9 11.7 - 16 g/dL [place] ([address]) Comment: repeated Interpretation and Abnormal 08-16-2019 [facility] review of laboratory [place], [place] ([address]) results MCH (RBC) [Entitic 29.7 26 - 34 pg 08-16-2019 [facility]- mass] [place], [place] ([address]) MCHC (RBC) [Mass/Vol] 33.5 32 - 36 % 08-16-19 20 [place] ([address]) MCV (RBC) [Entitic 88.7 79 - 98 fL 08-16-2019 [facility]- vol] [place], [place] ([address]) Platelet mean volume 8.7 7.4 - 10.4 fL 08-16-[address] [place] [address]- (Bld) [Entitic vol] [place] ([address]) Platelets (Bld) 247 140 - 440 10*3/uL 08-16-2019 [facility]- [#/Vol] [place], [place] ([address]) RBC (Bld) [#/Vol] 3.65 3.8 - 5.2 10*6/uL Low 08-16-2019 [place], [place] ([address]) WBC (Bld) [#/Vol] 9.0 3.6 - 10.7 10*3/uL 08-16-2019 [place], [place] ([address] 7[address]) Test Performed 08-16-2019 [facility] ([address]) System, [address] [place] [address] Sodium [Moles/Vol] NEG mmol/L 08-16-2019 [place], [place] ([address]) Comment: Test Performed by [facility] System, [address] [place] [address] Sodium [Moles/Vol] POS mmol/L 08-16-2019 [place], [place] ([address]) Comment: Test Performed by [facility] System, [address] [place] [address] Sodium [Moles/Vol] B 08-16-2019 [place], [place] (13 8[address]) Test Performed by 08-16-2019 [facility] [place] ([address]) System, [address] [place] [address] Anion gap 7 mmol/L 08-16-2019 [facility] [Moles/Vol] [place] ( [address]) Calcium [Mass/Vol] 8.7 8.4 - 10.4 mg/dL 08-16-2019 [place], [place] (12 349) Chloride [Moles/Vol] 104 98 - 107 mmol/L 0 [place] (87 684) CO2 [Moles/Vol] 25 22 - 30 mmol/L 08-16-2019 [place], [place] (23 [address]) Creatinine 0.69 0.52 - 1.25 mg/dL 08-16-2019 [facility] [Mass/Vol] [place], [place] (4 5[address]) EGFR IF NonAfrican >60.0 >60 mL/min 08-16-2019 [place] (85 [address]) Comment: Source- MDRD equation with c reatinine calibration to IDMS(NKDEP) eGFR not recommended for nicolas g dose adjustment GFR/1.73 sq M >60.0 >60 mL/min mL/min/{1.73_m2} 08-16-19 20 [facility] [place]D [place] (1165 7) (S/P/Bld) [Vol rate/Area] Glucose [Mass/Vol] 96 70 - 100 mg/dL 08-16-2019 [place] ([address]) Interpretation and Abnormal 08-16-2019 [facility] review of [facility] , laboratory results [place] ([address]) Potassium 3.8 3.5 - 5.1 mmol/L 08-16-2019 [facility] [Moles/Vol] [place] ([address]) Sodium [Moles/Vol] 136 135 - 145 mmol/L 08-16-2019 [place] ([address]) Urea nitrogen 22 7 - 20 mg/dL High 08-16-2019 [facility] [Mass/Vol] [facility] [place] ([address]) Test 08-16-2019 [facility] Performed by [facility] (054 28) System, [facility] [place] [address] INR Coag (PPP) 1.0 OTH - OTH {INR} 08-16-2019 [facility] y [Relative time] [place] ([address]) Comment: Recommended Anticoagulant erapy: SEE BELOW ----- [...] [Time] 10.4 9 - 12 s 0 [place], [place] ([address]) Comment: . Test Performed by [facility] 08-16-2019 [place] ([address]) System, [facility] [place] [address] cta low ext w/ + w/o contrast left on 2019-08-15 CTA Low Ext w/ Patient Name: DENYS ARRIOLA Normal 08-15-2019 [facility] + w/o Contrast S ystem Left (0 0000) CT Exam Date/Time 08/15/2019 12:00:13 EST Exam CTA Low Ext w/ + w/o Contrast Left Ordering Physician MD DOUG FABIO Accession Number [id number] CPT4 Codes 88331 (), Q9967 (CT ISOVUE 370MG/[id number]) Reason For Exam Evaluate LLE free flap [...] CR Chest Portable Patient Name: DENYS ARRIOLA [facility] 08-15-2019 [facility] (75022 ) Diagnostic Radiology Exam Date/Time 08/15/2019 18:00:56 EST Exam CR Chest Portable Ordering Physician LOUISA COATES Accession Number [id number] CPT4 Codes 77064 () Reason For Exam line placement Report [...] 08/15/2019 9:31 No panel information on 2019-08-15 [facility] Incoming Radiology Results From [facility] - 2019 9:34 PM EST 08-15-2019 [place] ([address]) Patient Name: DENYS ARRIOLA ---Diagnostic Radiology--- Exam Date/Time 08/15/2019 18:00:56 EST Exam CR Chest Portable Ordering Physician LOUISA COATES Accession Number [id number] CPT4 Codes 30070 () Reason For Exam line placement Report [...] Time: 08/15/2019 9:31 Patient Name: [place] [id number] ---Diagnostic Radiology--- Exam Date/Time 08/15/2019 18:00:56 EST Exam CR Chest Portable Ordering Physician LOUISA COATES Accession Number [id number] CPT4 Codes 77163 () Reason For Exam line placement Report [...] Time: 08/15/2019 9:31 Patient Name: [place] [address] [id number] ---CT--- Exam Date/Time 08/15/2019 12:00:13 EST Exam CTA Low Ext w/ + w/o Contrast Left Ordering Physician MD CAMACHO ZACHARY Accession Number [id number] CPT4 Codes 87459 (), Q9967 (CT ISOVUE 370MG/[id number]) Reason For Exam Evaluate LLE free flap [...] 9:02 [facility] Incoming Radiology Results From [facility] - 2019 9:10 PM EST 08-15-2019 [place] ([address]) Patient Name: DENYS ARRIOLA ---CT--- Exam Date/Time 08/15/2019 12:00:13 EST Exam CTA Low Ext w/ + w/o Contrast Left Ordering Physician MD DOUG, FABIO Accession Number [id number] CPT4 Codes 00473 (), Q9967 (CT ISOVUE 370MG/[id number]) Reason For Exam Evaluate LLE free flap [...] JEFFREY Transcribed Date and Time: 08/15/2019 9:02 [facility] 08-15-2019 [place] ([address]) Health System Test Date: 2019-08-14 Pat Name: Denys Arriola Department: 1A6 Room: 10 Gender: F 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 : 1985 Requested By: DEON DAVILA Order Number: [id number] Reading MD: Maco Sepulveda Measurements Intervals [place] Rate: 78 P: 57 TX: 150 QRS: 85 QRSD: 81 T: 67 QT: 356 QTc: 406 Interpretive Statements Sinus rhythm Electronically Signed On 08-15-2019 17:41:04 EST by Maco Sepulveda [facility] Incoming Cardiolo gy Results From [facility] - 08/15/2019 5:42 PM EST [facility] 08-15-2019 [place] ([address]) Test Date: 2019-08-14 Pat Name: Denys Arriola Department: 1A6 Room: 6110 Gender: F 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 Performed By: #### TROPN ### # [address] [address] op note on Op Note PATIENT: DENYS ARRIOLA Normal 2019 [facility] (87602) ADMISSION DATE: 08/14/2019 SURGERY DATE: 08/14/2019 DATE [...] of March and had ORIF by a project administrative assistant at outside ED. She repo rts that [...] was then closed using 3-0 nylon with Icmczzfp-Kktxgo-kkup sutures to repair the wound bed back [...] c ondition without complication. Diskriter Job ID: [id number] Deon Davila MD DOD:08/14/2019 03:13 P EM/marcelo DOT:08/14/2019 04:40 P Job Number: [id number] Document Number: [id number] cc: Deon Davila MD [address] [place] [address] [place] [address] hemoglobin and hematocrit on 2019-08-14 Hematocrit (Bld) [Volume 38.2 35.0-47.0 % Normal 08-13 [facility] fraction] (83422) Comment: Performed By: #### HGHCT ### # [place] [address] [place] [address] Hemoglobin (Bld) 13.3 11.7-16.0 g/dL Normal 08-14-2019 [facility] [Mass/Vol] (84539) Comment: Performed By: #### HGHCT ### # [facility] [address] [place] [address] No panel information on 2019-08-14 Troponin I.cardiac <0.012 0 - 0.034 ng/mL 08-14-2019 [facility] [Mass/Vol] ([address]) Comment: . Test Performed by 08-14-2019 [facility], [facility] [place] ([address]) System, [address] [place] [address] Hematocrit (Bld) 38.2 35 - 47 % 08-14-2019 [facility], [Volume fraction] [place] ([address]) Hemoglobin (Bld) 13.3 11.7 - 16 g/dL 08-14-2019 [facility], [Mass/Vol] [place] ([address] ) Test Performed by 08-14-2019 [facility], [facility] [place] ([address]) System, [facility] [place] [address] cnco on 2019-08-06 [facility] Letter Text Normal 08-06-2019 [facility] ([address]) bact/cand vag grm st on 2019-07-09 Bact/Cand Vag Grm Sp. Request/Comment: - Swab Norm al 07-09-2019 [facility] ([address]) Smear Result - BACTERIAL VAG INOSIS RESULT: Stain results indicate mixed morphotypes consistent with transition from normal vaginal fausto. No Yeast observed Rare Polymorphonuclear leukocytes Comment: Performed By: #### BVCNSM ## ## [facility] [address] [place], [place] [address] progress on 2019-06 PROGRESS HNO ID: [id number] Normal 07-08-2019 [facility] Author: Whit Hassan Whitakers ([id number]) Service: ? Author Type: Physician Type: Progress [...] times daily as needed for Cough. - Bqhmkdiszbgyapd-Uxfmjxliv-LC (BROMFED DM) 2-30-10 mg/5 mL syrup Take [...] non-hi rsute PELVIC: normal Bartholin's glands, urethra, [place]'s glands, no cervical lesions, good vaginal support, [...] 2019-07-08 CNOV Office Visit (WOOB) Normal 07-08-2019 [facility] FLAKODENYS Bernal ([id number]) 1985 [facility] Date Time Provider Department (459[address]) 07/08/19 3:20 PM WHIT VIVEROS WOOB During [...] non-hi rsute PELVIC: normal Bartholin's glands, urethra, [place]'s glands, no cervical lesions, good vaginal support, [...] BACT/SHUN VAG GRAM STAIN [SQBVCNSM] Order #: [id number] F UTURE Prescriptions as of 07/08/2019 Sig: [...] BMI (Body Mass Index) 26.63 kg/m2 12-11-2019 [facility] ([address]) BMI (Body Mass Index) 23.49 kg/m2 11-15-2019 [facility] [place] ([address]) BMI (Body Mass Index) 23.49 kg/m2 11-12-2019 [facility] ([address]) BMI (Body Mass Index) 23.49 kg/m2 09-27-2019 [facility] ([address]) BMI (Body Mass Index) 23.49 kg/m2 08-14-2019 [facility] ([address]) Body Temperature 97 [degF] 01-09-2020 [facility] ([address]) Body Temperature 98.2 [degF] 12-11-2019 [facility] ([address]) Body Temperature 97.7 [degF] 11-18-2019 [facility] ([address]) Body Temperature 98.1 [degF] 11-12-2019 [facility] ([address]) Body Temperature 98.91 [degF] 09-28-2019 [facility] ([address]) Body weight 77.11 kg 12-11-2019 [facility] [place] ([address]) Body weight 68.04 kg 11-15-2019 [facility] [place] ([address]) Body weight 68.04 kg 11-12-2019 [facility] [place] ([address]) Body weight 68.04 kg 09-27-2019 [facility] [place] ([address]) Body weight 68.04 kg 08-14-2019 [facility] [place] ([address]) BP Diastolic 70 mm[Hg] 01-09-2020 [facility] [place] ([address]) BP Diastolic 74 mm[Hg] 12-11-2019 [place] ([address]) BP Diastolic 84 mm[Hg] 11-18-2019 [place] ([address]) BP Diastolic 84 mm[Hg] 11-12-2019 [place] ([address]) BP Diastolic 66 mm[Hg] 09-28-2019 [place] ([address]) BP Systolic 112 mm[Hg] 01-09-2020 [place] (07[address]) BP Systolic 115 mm[Hg] 12-11-2019 [place] ([address]) BP Systolic 106 mm[Hg] 11-18-2019 [place] ([address]) BP Systolic 113 mm[Hg] 11-12-2019 [place] ([address]) BP Systolic 112 mm[Hg] 09-28-2019 [place] ([address]) Height 170.2 cm 12-11-2019 [place] ([address]) Height 170.2 cm 11-15-2019 [place] ([address]) Height 170.2 cm 11-12-2019 [place] ([address]) Height 170.2 cm 09-27-2019 [place] ([address]) Height 170.2 cm 08-18-2019 [place] ([address]) Pulse (Heart Rate) 64 /min 01-09-2020 [place] ([address]) Pulse (Heart Rate) 73 /min 12-11-2019 [place] ([address]) Pulse (Heart Rate) 98 /min 11-18-2019 [place] ([address]) Pulse (Heart Rate) 95 /min 11-12-2019 [place] ([address]) Pulse (Heart Rate) 99 /min 09-28-2019 [place] ([address]) Pulse Oximetry 99 % 01-09-2020 [place] ([address]) Pulse Oximetry 100 % 12-11-2019 [place] ([address]) Pulse Oximetry 97 % 11-18-2019 [place] ([address]) Pulse Oximetry 96 % 11-12-2019 [place] ([address]) Pulse Oximetry 96 % 09-28-2019 [place] ([address]) Respiratory Rate 18 /min 01-09-2020 [facility] ([address]) Respiratory Rate 20 /min 12-11-2019 [facility] ([address]) Respiratory Rate 16 /min 11-18-2019 [facility] ([address]) Respiratory Rate 15 /min 09-28-2019 [facility] ([address]) Respiratory Rate 20 /min 08-28-2019 [place] ([address]) Encounters Date Type Reason Provider Location 10-26-2017 [facility] UGALDEJASMIN Facility[facility] 11-15-2019 - Evaluation and Closed [...] Name Date Provider Location OPERATIVE REPORT 12-11-[address] [place] [address], [place] ([address]) Drug screen quantitative 11-17-2019 [facility] [place] vancomycin ([address]) BASIC METABOLIC PANEL W/ 11-16-2019 Steven Knutson [facility] [place] REFLEX TO MG FOR LOW K (56846) Blood count complete 11-16-2019 Steven Knutson [facility], [place] automated ([address]) OPERATIVE REPORT 11-15-[address] [place] [address], [place] ([address]) Cul prsmptv pthgnc 11-15-2019 Deon [place] organism scrn w/colony (77841) estimj COVID-19 11-12-2019 [place] ([address]) Blood count hemoglobin 11-12-2019 Shanelle Mcgill [facility], [place] ([address]) Blood typing serologic 11-12-2019 Shanelle Mcgill [place] abo ([address]) OPERATIVE REPORT 09-27-[address] [place] [address], [place] ([address]) Basic metabolic panel 08-28-2019 Everton [place] calcium total ([address]38) Blood count complete 08-28-2019 Everton Cha [place] auto&auto difrntl wbc (27199) Basic metabolic panel 08-27-2019 Everton [place] calcium total ([address]872) Blood count complete 08-27-2019 Everton Cha [place] auto&auto difrntl wbc (11957) Drug screen quantitative 08-26-2019 Victor Manuel [place] vancomycin ([address]60) Basic metabolic panel 08-26-2019 Everton [place] calcium total ([address]1) Blood count complete 08-26-2019 Everton Cha [place] auto&auto difrntl wbc (98546) Basic metabolic panel 08-25-2019 Everton [place] calcium total ([address]69) Blood count complete 08-25-2019 Everton Maldonado [place] auto&auto difrntl wbc (43122) Basic metabolic panel 08-24-2019 Everton [place] calcium total ([address]28) Blood count complete 08-24-2019 Everton Cha [place] auto&auto difrntl wbc (74729) Drug screen quantitative 08-23-2019 Everton Corbett [place] vancomycin ([address]) OPERATIVE REPORT 08-23-[address] [facility] [place] ([address]) Blood count complete 08-23-2019 Everton Cha [place] auto&auto difrntl wbc (95396) Blood typing serologic 08-22-2019 Petar Nuno [place] abo ([address]) Drug screen quantitative 08-22-2019 Victor Manuel [place] vancomycin ([address]15) Blood count complete 08-22-2019 Everton Cha [place] auto&auto difrntl wbc (52380) Blood count complete 08-21-2019 Everton Cha [place] auto&auto difrntl wbc (35995) Drug screen quantitative 08-20-2019 Everton Corbett [place] vancomycin ([address]20) Assay of magnesium 08-20-2019 [place], [place] ([address]) Basic metabolic panel 08-20-2019 [place], [place] calcium total ([address]81) Blood count complete 08-20-2019 Everton Cha [place] auto&auto difrntl wbc (38094) Blood typing serologic 08-19-2019 Jesse Burnham [place] abo ([address]) Assay of magnesium 08-19-2019 [place] ([address]) Basic metabolic panel 08-19-2019 [place] calcium total ([address]94) Blood count complete 08-19-2019 Everton Cha [place] auto&auto difrntl wbc (79406) Blood count hemoglobin 08-18-2019 Jesse R [place] ([address]) Assay of magnesium 08-18-2019 [place] ([address]) Basic metabolic panel 08-18-2019 Valencia Oakes [facility] [place] calcium total ([address]76) Blood count complete 08-18-2019 Everton Cha [place] auto&auto difrntl wbc (63374) TRANSFUSE PLATELETS 08-18-2019 Ever[place], [place] ([address]) TRANSFUSE FRESH FROZEN 08-18-2019 - [place] Joel Cha [place] PLASMA 08-18-2019 (01706) TRANSFUSE RED BLOOD CELLS 08-18-2019 - Evertonfabricio Cha [place], [place] 08-18-2019 (86806) Blood count hemoglobin 08-17-2019 [place] ([address]) Radex ankle complete 08-17-2019 Steven Mckeonlaurijudah [place] minimum 3 views (58672) Assay of magnesium 08-17-2019 Alberto [place] ([address]) Blood count complete 08-17-2019 Alberto Rome [place] auto&auto difrntl wbc (49437) Renal function panel 08-17-2019 [place] ([address]) Radiologic examination 08-17-2019 Jesse R Boris [facility] [place] tibia & fibula 2 views (35474) Radiologic examination 08-17-2019 Jesse R Boris [facility] [place] femur 1 view (63281) Basic metabolic panel 08-17-2019 Fabio Magda [place] calcium total (44657) Blood count complete 08-17-2019 Fabio Man [place] automated (57471) Drug screen quantitative 08-17-2019 Dat [place] vancomycin ([address]10) Basic metabolic panel 08-16-2019 Fabio A [place] calcium total (96182) Blood count complete 08-16-2019 [place] automated ([address]683) Blood typing serologic 08-16-2019 - [place] Magda [place], [place] abo 08-16-2019 Everton Cha (93430) PREPARE FRESH FROZEN 08-16-2019 Everton Cha [place] PLASMA ([address]10) PREPARE PLATELETS 08-16-2019 [place] ([address]) Prothrombin time 08-16-2019 [place] ([address]) Radiologic exam chest 08-15-2019 Louisa[place]ia Coates [place], [place] single view (31202) Ct angiography lower 08-15-2019 [place] extremity ([address]) Assay of troponin 08-14-2019 Petar Nuno [place], [place] quantitative ([address]33) Ecg routine ecg w/least 08-14-2019 Deon Alan Yovanny [place], [place] 12 lds w/i&r (39706) Cul bact xcpt urine 08-14-2019 - Deon T [place], [place] blood/stool aerobic isol 08-14-2019 (60266) Culture bacterial any 08-14-2019 - Deon T [place] source anaerobic iso&id 08-14-2019 (73908) Blood count hemoglobin 08-14-2019 [place] ([address]) Plan of Treatment Plan Description Date Location Shingles Vaccine (1 of Shingles Vaccine (1 of 2034 [place], [place] 2) 2) (07148) Breast cancer screen Breast cancer screen 2024 [place], [place] [address]24 ([address]480) Breast cancer screen Breast cancer screen 2024 [place], [place] [address]24 ([address]662) DTaP/Tdap/Td vaccine (2 DTaP/Tdap/Td vaccine (2 06-12-2022 [place] - Td) - Td) 06-12-2022 (91217) Flu vaccine (Season no information 02-11-2020 - [facility] [place] Ended) 02-11-2020 (12867) Nurse Only no information 01-21-2020 - [facility] Med ical 01-21-2020 Group Orthopedic s and Sports Medicine [place] Office Visit 12/19/2019 Office Visit 12-19-2019 - Infect D isease - [place] Infectious Diseases 12-19-2019 Mame Stallings MD [address] [place] [address], [address] [place], [place] [phone] Office Visit 12/17/2019 Office Visit 12-17-2019 - [place] [facility]17-2019 Group O rthopedics and LAKESHIA Wh[place] [address] [facility] [phone] Office Visit 12/03/2019 Office Visit 12-03-2019 - [facility] Lit alth Medical Orthopedic Surgery 12-03-2019 Group Orthope dics and Deon Davila MD 1 Sports Medi cine [facility] [address] [place], [place] [phone] Office Visit 11/26/2019 Office Visit 11-26-2019 - [facility] Lit alth Medical Orthopedic Surgery 11-26-2019 Group Orthope dics and BorisJesse MD 1 Sports Med [facility] [address] [place], [place] [address] Office Visit 11/21/2019 Office Visit 11-21-2019 - [facility] Lit alth Medical Orthopedic Surgery 11-21-2019 Group Orthope dics and BorisJesse MD 1 Sports Med [facility] [address] [place], [place] [address] Appointment 11/15/2019 Appointment 11-15-2019 - [facility] Surgery General Surgery Yovanny 11-15-2019 Deon Garcia MD [address] [facility] [address] [place] [address] [phone] Boris, Jesse Shetty MD [address] [facility] [address] [place] [address] [phone] Office Visit 10/03/2019 Office Visit 10-03-2019 - Kobi carroll [facility] Orthopedic Surgery 10-03-2019 Group Orthope dics and BorisJesse MD 1 Sports Med icine [facility] [address] [place] [address] [phone] Office Visit 09/26/2019 Office Visit 09-26-2019 - Infect D isvirgilio [facility] Infectious Diseases 09-26-2019 Mame Stallings MD [address] [place] [address] Street, [address] [place], [place] [phone] Flu vaccine (#1) Flu vaccine (#1) 02-10-2019 [place] ([address]) HIV screen HIV screen 12-29-1999 - [place] 12-29-1999 (67216) HIV screen HIV screen 12-29-1999 - [place] 12-29-1999 (07473) Varicella vaccine (1 of Varicella vaccine (1 of 1985 - [place] 2 - 2-dose childhood 2 - 2-dose childhood 1985 (92002 ) series) series) Basic Metabolic Panel Basic Metabolic Panel [place] Lab Routine Daily until (77084) discontinued starting 08/25/2019, 4 completed Comment: Daily until discontinued sta rting 08/25/2019, 4 completed Blood glucose - POCT Blood glucose - POCT Point of 01-09-2020 [place], [place] Care Testing STAT One Time (4523 7) for 1 Occurrences starting 01/09/2020 until 01/09/2020 Comment: One Time for 1 Occurrences s tarting 01/09/2020 until 01/09/2020 CBC Auto Differential CBC Auto Differential [place] ([address]) Daily until discontinued starting 08/18/2019, 11 completed Comment: Daily until discontinued sta rting 08/18/2019, 11 completed Creatinine, serum Creatinine, serum Lab STAT One 01-09-2020 [facility] [employer] [place], [place] Time for 1 Occurrences (93448) starting 01/09/2020 until 01/09/2020 Comment: One Time for 1 Occurrences s tarting 01/09/2020 until 01/09/2020 Culture, Anaerobic and Culture, Anaerobic and [facility] [place] Aerobic Aerobic Microbiology ([address]26) Routine 11/15/2019 8:20 AM EDT [place] Greater Than 1 Hour [place] Greater Than 1 Hour 08-14-2019 [facility], [place] Imaging Routine Once for 1 (4523 7) Occurrences starting 08/14/2019 until 08/14/2019 Comment: Once for 1 Occurrences start ing 08/14/2019 until 08/14/2019 [place] Greater Than 1 Hour no information [facility] [place] ([address]) [place] Greater Than 1 Hour [place] Greater Than 1 Hour 11-15-2019 [facility] [employer] [place], [place] Imaging Routine Once for 1 (4523 7) Occurrences starting 11/15/2019 until 11/15/2019 Comment: Once for 1 Occurrences start ing 11/15/2019 until 11/15/2019 FL Greater Than 1 Hour [place] Greater Than 1 Hour 08-23-2019 [facility], [place] Imaging Routine Once for 1 (4523 7) Occurrences starting 08/23/2019 until 08/23/2019 Comment: Once for 1 Occurrences start ing 08/23/2019 until 08/23/2019 FL Greater Than 1 Hour [place] Greater Than 1 Hour 01-09-2020 [facility], [place] Imaging Routine Once for 1 (4523 7) Occurrences starting 01/09/2020 until 01/09/2020 Comment: Once for 1 Occurrences start ing 01/09/2020 until 01/09/2020 HHN Treatment HHN Treatment Respiratory Care [facility]ine [facility] [place], [place] ([address]) 0600, 1000, 1400, 1800, 2200 until discontinued starting 08/17/2019 Comment: 0600, 1000, 1400, 1800, 2200 until discontinued starting 08/17/2019 Incentive spirometry no information Caryn [facility], [place] ([address]) Comment: Every 2hr while awake until discontinued starting 09/27/2019 Every 2hr while awake until discontinued starting 08/15/2019 Q1H PRN until discontinued s tarting 12/11/2019 Q1H PRN until discontinued s tarting 01/09/2020 Initiate Oxygen Therapy Protocol [place] ([address]) Comment: Daily until discontinued sta rting 09/27/2019 Daily until discontinued sta rting 08/14/2019 Daily until discontinued sta rting 11/15/2019 Daily until discontinued sta rting 12/11/2019 Pulse Oximetry Spot Pulse Oximetry Spot Check 01-09-2020 [place], [place] Check Respiratory Care Routine (94876) One Time for 1 Occurrences starting 01/09/2020 until 01/09/2020 Comment: One Time for 1 Occurrences s tarting 01/09/2020 until 01/09/2020 Initiate Oxygen Therapy Initiate Oxygen Therapy [place], [place] Protocol Protocol Respiratory Care (90230 ) Routine Daily until discontinued starting 01/09/2020 Comment: Daily until discontinued sta rting 01/09/2020 Phase I & II - metered glucose no information [place] ([address]) Comment: As Needed until discontinued starting 12/11/2019 As Needed until discontinued starting 01/09/2020 Potassium w/ Reflex to Potassium w/ Reflex to 01-09-2020 [place], [place] Magnesium Magnesium Lab Routine One (24168 ) Time for 1 Occurrences starting 01/09/2020 until 01/09/2020 Comment: One Time for 1 Occurrences s tarting 01/09/2020 until 01/09/2020 , urine , urine Lab STAT One 01-09-2020 [place] Time for 1 Occurrences starting (12639) 01/09/2020 until 01/09/2020 Comment: One Time for 1 Occurrences s tarting 01/09/2020 until 01/09/2020 Protime-INR Protime-INR Lab STAT One Time for 01-09-2020 [place] ([address]) 1 Occurrences starting 01/09/2020 until 01/09/2020 Comment: One Time for 1 Occurrences s tarting 01/09/2020 until 01/09/2020 Pulse Oximetry Spot Pulse Oximetry Spot Check 12-11-2019 [place], [place] Check Respiratory Care Routine (56931) One Time for 1 Occurrences starting 12/11/2019 until 12/11/2019 Comment: One Time for 1 Occurrences s tarting 12/11/2019 until 12/11/2019 Tissue Homogenization Tissue Homogenization Lab 08-14-2019 [place], [place] Routine Once for 1 Occurrences ( 75702) starting 08/14/2019 until 08/14/2019 Comment: Once for 1 Occurrences start ing 08/14/2019 until 08/14/2019 Tissue Homogenization Tissue Homogenization Lab Routine [place] 08/14/2019 8:15 AM EST (26390) Immunizations Vaccine Notes Status Date Location Influenza Vaccine, Influenza Vaccine, (completed) 03-31-2016 - [facility], unspecified unspecified 03-31-2016 [place] ([address]125) formulation formulation Influenza Virus influenza virus (completed) 03-28-2017 - [facility], Vaccine vaccine, unspecified 03-28-2017 [place] (452 37) formulation Tdap (Boostrix, tetanus toxoid, (completed) 06-12-2012 - [facility], Adacel) reduced diphtheria 06-12-2012 [place] ([address]605 ) toxoid, and acellular pertussis vaccine, adsorbed Payers Payer Name Policy Number Location [employer] xxxxxxxxx [place] ([id number]) [facility] [id number] [place] ([address]) [facility] [id number] [facility] ([id number]) The following information is from the original human readable contentNo Payer Records FoundNo Payer Records FoundNo Payer Records FoundNo Payer Records FoundNo Payer Records Found Social History Type Social History Date Location Description Tobacco smoking status Never smoker 09-27-2019 - [place] NHIS 01-07-2020 ([address]) Alcohol intake Current non-drinker of 09-27-2019 - [place] alcohol (finding) 01-07-2020 (81577) Alcohol Comment occasional 06-14-2016 - [place], [place] 06-14-2016 ([address]42) Sex Assigned At [place] on file [place], [place] ([address]) Exposure to SARS-CoV-2 Unable to assess [place], [place] (event) ([address]) Tobacco use and Never used 01-07-2020 [place] exposure ([address]) Exposure to SARS-CoV-2 Not sure [place] (event) ([address]) The following information is from the original [...] Documents on File Type Date Recorded Patient Tissue Coordinator Explanati on Advance Directives and Living Will Power of Right Of Way Man Latest Code Status on File Code Status [...] home care will be provided by: [facility] and Nurse [phone] Additional InstructionsSamuel Hagen MD - 08/14/2019Please cleanse the flap area and pin sites twice daily as we have been doing in the hospital - applythe adaptec, kerlex wrap twice daily. Please continue to take photographs (ask family to help) and send these photographs to the following email address: [email or web address] The antibiotics will be required via IV [...] Care and Hygiene: -Leave your wound vacuum specification manager Your Doctor for: -Excessive bleeding/swelling of incision [...] - 11/12/2019 Please bring your [facility] Surgical Information folder on the day of [...] Your home care will be provided by: [facility] [phone] Infusion Company: [facility] [phone] Additional InstructionsDaSteven andre MD - 11/15/2019General Orthopedic [...] put any weight on LEFT leg Take [place] as needed for pain control Contact your [...] control. You may also take the prescribed [place] and ibuprofen for relief of pain and [...] 10x5 cm -Gen diet -Pain control with [place] -Infectious disease consult re: Vancomycin IV that [...] PGY-7 Plastic & Reconstructive Surgery Fellow Pager #[phone] Gogo Alvarez RN - 09/27/2019 2:30 PM [...] Melo DO - 08/27/2019 8:31 AM EDT [facility] - Infectious Diseases Attending Progress Note [...] cultures: Corynebacterium striatum vanc 0.50 Culture, Tissue [[id number]] (Abnormal) Collected: 08/14/19 0815 Order Status: Completed [...] Will sign-off please call with questions Pager: [phone] Annabel Hernandez, MS, RD, LD - 08/26/2019 [...] Nutrient Needs: ? Estimated Daily Total Kcal: 9201-8622 ? Estimated Daily Protein (g): 95-102 ? [...] Body Wt: 146 lb (66.2 kg) ? Dunbar Body Wt: 135 lb (61.2 kg), % Dunbar Body 111% ? BMI Classification: BMI 18.5 - 24.9 Normal Weight Nutrition Interventions: Continue current diet Continued Inpatient Monitoring Nutrition Evaluation: ? Evaluation: Progressing toward goals ? Goals: Pt will consume ONS and >80% estimated protein needs daily ? Monitoring: Meal Intake, Diet Tolerance, Skin Integrity, Wound Healing, I&O, Pertinent Labs, Monitor Bowel Function Contact Number: pager [phone] Jesse Burnham MD - 08/26/2019 9:21 AM [...] Date 08/26/19 0000 - 08/26/19 2359 Shift 4616-5087 3889-8269 4458-5609 24 Hour Total INTAKE P.O.(mL/kg/hr) 500(0.9) 500 [...] -2 Department of General Surgery Personal Pager #[phone] Attending note inpendently seen and evaluated Flap [...] Meloony K - 08/26/2019 8:55 AM EDT [facility] - Infectious Diseases Attending Progress Note [...] cultures: Corynebacterium striatum vanc 0.50 Culture, Tissue [[id number]] (Abnormal) Collected: 08/14/19 0815 Order Status: Completed [...] progress 4. Check level in morning Pager: [phone] Petar gross MD - 08/26/2019 3:40 AM EDT [place] [address] MED SUR[address] [place] [address] Dept: [phone] Loc: [phone] Adult Orthopaedic Service Patient Name: Denys Arriola [...] flap checks. Vioptix through Monday. Call MD investor relations manager if Vioptix <46%, flap turns dusky or [...] PGY-7 Plastic & Reconstructive Surgery Fellow Pager #[phone] Attending note: Seen examined and evaluated with [...] Lewis MD - 08/25/2019 6:31 AM EDT [facility] H5 MED SURG [address] [place] [id number] Dept: [phone] Loc: [phone] Adult Orthopaedic Service Patient Name: Denys Arriola [...] HLIV. -Q4H flap checks. Vioptix. Call MD investor relations manager if Vioptix <58%, flap turns dusky or purple or there is loss of arterial signal. -OK for up with assistance to bedside commode -Pain control -H/o osteoarthritis. Continue Vancomycin -ASA, Lovenox -TTF -Will start dangle protocol tomorrow Michelle Cabrera MD PGY-7 Plastic & Reconstructive Surgery Fellow Pager #[phone] Attending note: Seen and independently evaluated NWB Ok for commode with assist Transfer to floor Q4 flap checks Daily dressing changes with adaptic gauze and kerlix Vioptix thru Monday Will start dangle tomorrow 5 min TID Am CBC Reg diet Jesse Burnham tephen Lewis MD - 08/24/2019 7:35 AM EDT [facility] ICU T2 [address] [place] [address] Dept: [phone] Loc: [phone] Adult Orthopaedic Service Patient Name: Denys Arriola [...] 08/16 PLAN: Neuro/Spine: - tylenol scheduled - [place] -dilaudid prn breakthrough - home prozac - [...] for diet by primary service. Luz tart [place], d/c scheduled acetaminophen, reschedule IV narcotics for [...] IVF -Q1H flap checks. Vioptix. Call MD investor relations manager if Vioptix <58%, flap turns dusky or purple or there is loss of arterial signal. -Pain control -H/o osteoarthritis. Continue Vancomycin -ASA, Lovenox Michelle Cabrera MD PGY-7 Plastic & Reconstructive Surgery Fellow Pager #[phone] Everton Ugalde MD - 08/23/2019 7:35 PM [...] injection 250 Units 250 Units Intracatheter PRN Carringotn tSephens MD ? sodium chloride flush 0.9 % [...] Date 08/23/19 0000 - 08/23/19 2359 Shift 9314-6759 3228-5193 5867-8787 24 Hour Total INTAKE P.O.(mL/kg/hr) 500(0.9) 500 [...] 08/16 PLAN: Neuro/Spine: - tylenol scheduled - [place] -dilaudid prn breakthrough - home prozac HEENT: [...] states pain is tolerable. Pt transported to [id number] signed by Marilyn Ferreira RN at 08/23/2019 [...] Melo DO - 08/23/2019 2:03 PM EDT [facility] - Infectious Diseases Attending Progress Note [...] cultures: Corynebacterium striatum vanc 0.50 Culture, Tissue [[id number]] (Abnormal) Collected: 08/14/19 0815 Order Status: Completed [...] vancomycin dose adequate 2. Continue care Pager: [phone] Rachel pink RN - 08/23/2019 1:42 PM [...] combined flap debulking with Dr. Burnham and [place] spatial frame ex-fix with ortho -NPO, updated type and screen complete -Continue ABx per ID, on vanc -Continue daily ASA -Lovenox PPx -Multimodal pain control -Continue bedrest -PT/OT -Keep left leg elevated -Continue alex hugger to left leg -Discussed with Dr. Boris Camacho M.D. PGY-1 [phone] Attending note: Revision & inset flap today, CBC reviewed, HGB stable Plan for inset versus STSG WB status as per ortho/Dr Davila I had an extensive discussion with . 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 I have outlined [...] Ly MD - 08/23/2019 6:36 AM EDT [place] [address] [address] [place] [address] Dept: [phone] Loc: [phone] Adult Orthopaedic Service Patient Name: Denys Arriola [...] debulking on 08/22 per plastics, will [facility] frame today with combined procedure. -Ice/elevate -PT/OT -Leave splint clean, dry, and intact -Continue home medication -Pain control and medical management per plastic surgery -DVT PPx per primary team. -NPO -Added -Consented Victor Manuel Melo DO - 08/22/2019 8:57 AM EDT [facility] - Infectious Diseases Attending Progress [...] cultures: Corynebacterium striatum vanc 0.50 Culture, Tissue [[id number]] (Abnormal) Collected: 08/14/19 0815 Order Status: Completed [...] 3. PRS and Ortho on case Pager: [phone] Fabio Camacho MD - 08/22/2019 6:32 AM [...] -Discussed with Dr. Boris Camacho M.D. PGY-1 [phone] German Torrez MD - 08/22/2019 5:58 AM EDT [place] [address] [address] [facility] [address] Dept: [phone] Loc: [phone] Adult Orthopaedic Service Patient Name: Denys Arriola [...] for flap debulking on 08/22 per plastics, [facility] frame likely Monday -Ice/elevate -PT/OT -Leave splint [...] Nutrient Needs: ? Estimated Daily Total Kcal: 5959-9857 ? Estimated Daily Protein (g): 95-102 ? [...] Body Wt: 146 lb (66.2 kg) ? Dunbar Body Wt: 135 lb (61.2 kg), % Dunbar Body 111% ? BMI Classification: BMI 18.5 [...] Constipation, Monitor Bowel Function Contact Number: pager [phone] Mimi Victor Manuel DO Eliana - 08/21/2019 8:56 AM EDT [facility] - Infectious Diseases Attending Progress Note [...] cultures: Corynebacterium striatum vanc 0.50 Culture, Tissue [[id number]] (Abnormal) Collected: 08/14/19 0815 Order Status: Completed [...] vancomycin 2. Check level in morning Pager: [phone] Luna gold OT - 08/21/2019 8:08 AM EDTOccupational Therapy Attempted OT eval. Pt is currently on bedrest per order in [facility] as well as plastic surgeries note [...] -Discussed with Dr. Boris Camacho M.D. PGY-1 [phone] Attending Note: Patient doing well flap viable Will plan debulking and inset on Monday, risks benefits and alternatives were discussed with the patient. She understands the the proposed procedure which is flap inset debulking possible split-thickness skin graft and possible wound VAC placement all questions were answered Continue nonweightbearing daily aspirin and Lovenox protocol German Torrez MD - 08/21/2019 5:53 AM EDT [facility] MED SURG [address] [place] [address] Dept: [phone] Loc: [phone] Adult Orthopaedic Service Patient Name: Denys Arriola [...] debulking on 08/22 per plastics, will [facility] frame at that time/after -Ice/elevate -PT/OT -Leave splint clean, dry, and intact -Continue home medication -Pain control per orthopaedic protocol -Intra-op cultures pending -DVT PPx per primary team. -okay for diet today German Cabrera PGY-2 Orthopaedic Surgery 08/21/2019 5:53 AM [phone] Victor Manuel Melo DO - 08/20/2019 9:47 AM EDT [facility] - Infectious Diseases Attending Progress Note [...] cultures: Corynebacterium striatum vanc 0.50 Culture, Tissue [[id number]] (Abnormal) Collected: 08/14/19 0815 Order Status: Completed [...] on case for fixator placement later Pager: [phone] Josse Buitrago MD - 08/20/2019 8:20 AM [...] Date 08/20/19 0000 - 08/20/19 2359 Shift 8387-6370 7420-1255 8415-8446 24 Hour Total INTAKE Shift Total(mL/kg) OUTPUT [...] 08/16 PLAN: Neuro/Spine: - tylenol scheduled - [place] - add toradol today -dilaudid prn breakthrough [...] on=xygenation. Will d/c Oxycodone - intolerance, start [place] PRN, discuss with Plastic surgery initiation of [...] -Discussed with Dr. Boris Camacho M.D. PGY-1 [phone] Carrington Ly MD - 08/20/2019 6:20 AM EDT [facility] ICU T[address] [place], [place] [id number] Dept: [phone] Loc: [phone] Adult Orthopaedic Service Patient Name: Denys Arriola [...] - 08/19/2019 11:51 AM EDT [facility] - Infectious Diseases Attending Progress Note Subjective: [...] scanned under Media tab Mame Stallings MD [facility] Everton Maldonado MD - 08/19/2019 10:24 AM [...] 250 Units 250 Units Intravenous Q12H Alberto Roem, DO 250 Units at 08/19/19 0514 ? [...] Date 08/19/19 0000 - 08/19/19 2359 Shift 1213-2614 1715-0241 4618-5596 24 Hour Total INTAKE I.V.(mL/kg) 1441(21.2) 1441(21.2) [...] vac to donor site - OR today [facility] WB Status: RUE:AT LUE: AT RLE: [...] adjusted for low trough - 11.7, ID followingFranicne Stephens spatial frame plans per orthopedic surgery [...] Dr. Burnham -2 Department of General Surgery #[id number] Attending NOte: Patient seen and independently evaluated Agree as above Plan on inset +/- STSG on Monday Ok to dc vioptix on Monday rounds Q4 flap checks Regular diet Transfer out of ICU Jesse Burnham Carrington Ly MD - 08/19/2019 6:23 AM EDT [facility] ICU T2 [address] [facility] [address] Dept: [phone] Loc: [phone] Adult Orthopaedic Service Patient Name: Denys Arriola [...] Start dvt chemoprophylaxis. Alexy Thompson MD Pg [phone] oblete, Felix Pina MD - 08/18/2019 11:18 AM EDT [facility] - Infectious Diseases Attending Progress Note [...] Ly MD - 08/18/2019 5:53 AM EDT [facility] ICU T2 [address] [place] [address] Dept: [phone] Loc: [phone] Adult Orthopaedic Service Patient Name: Denys Arriola [...] Date 08/18/19 0000 - 08/18/19 2359 Shift 6920-1830 3320-6007 0922-0802 24 Hour Total INTAKE Blood(mL/kg) 365(5.4) 365(5.4) [...] details corrected below. Alexy Thompson MD Pg [phone] Alberto Rome, - 08/17/2019 8:39 PM ESTPlastic [...] Stallings MD - 08/16/2019 10:56 AM EST [facility] - Infectious Diseases Attending Progress Note [...] for pain with IV pain medication per staffing mgr prior to wound VAC dressing change. Old [...] Will continue to follow pt. Will consult java developer with security clearance. Randy Berg DO - 08/16/2019 7:48 AM EST [facility] Progress Note Denys Arriola [...] by Randy Harris DO 6PM-6AM please page: [facility] Internal Medicine Fabio Camacho MD - 08/16/2019 6:13 AM EST [facility] H6 TELEMETRY [address] [facility] [address] Dept: [phone] Loc: [phone] Plastics Progress Note Name: Denys Arriola Date:08/16/2019 [...] daily DVT ppx Fabio Camacho M.D. 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 Goals and/or treatment [...] Berg DO - 08/15/2019 8:17 AM EST [facility] Progress Note Denys Arriola : [...] DVT prophylaxis: SCDs Disposition:await test results, await color consultant recommendations and await clinical improvement I spent over 51% of total time providing counseling or incoordination of care: 25 minutes discussed with pt, I personally examined the patient and I personally reviewed chart, data, labs radiology reports 6AM-6PM please page: Electronically signed by Randy Harris DO 6PM-6AM please page: [facility] Internal Medicine Fabio Camacho MD - 08/15/2019 5:48 AM EST [facility] H[address] TELEMETRY [address] [place] [address] Dept: [phone] Loc: [phone] Plastics Progress Note Name: Denys Arriola Date:08/15/2019 [...] abx to ID Fabio Camacho M.D. 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 Has been NWB LLE since original injury [...] once Plan weeks: once G-Code OutComes Score AM-[facility] Daily Activity Inpatient How much help for putting on and taking off regular lower body clothing?: None How much help for Bathing?: None How much help for Toileting?: None How much help for putting on and taking off regular upper body clothing?: None How much help for taking care of personal grooming?: None How much help for eating meals?: None AM[facility] Inpatient Daily Activity Raw Score: 24 AM[facility] Inpatient ADL T-Scale Score : 57.54 [...] entire session. Kim Wright OTR/L Carolyn Bryant [facility] - 11/18/2019 7:31 AM EDTInfectious Diseases has [...] dc when antibiotics set up Rx for [place] DVT PPx: ASA 81mg daily and cuffs. PT Ice Elevation Fabio Camacho M.D. Orthopaedic Surgery PGY-1 [phone] Rianna Carrillo DTR - 11/17/2019 8:54 AM EDT Nutrition rescreen completed. Chart reviewed. Patient to be monitored and followed by the diet ophthalmology technician. Carrington Stephens MD - 11/17/2019 6:06 [...] dc when antibiotics set up Rx for [place] DVT PPx: ASA 81mg daily and cuffs. 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 Please page investor relations manager ortho with any questions or concerns. Greg [...] waiting on a call back from the [facility] to assist. Mary Perez RN - [...] FROM OR VIA CART. SPONT RESP. WITH SALES SPECIALIST IN ATTENDANCE. PLACED ON MONITOR. MONITOR ALARMS [...] BE BASED ON THE PRIMARY CLINICAL RECORDS. [facility] provides no warranty or guarantee of the accuracy or completeness of information in this document. UNRECOGNIZED CONTENT PROVIDED BELOW FOR UNRECOGNIZED SECTION INFORMATION SOURCE DATE CREATED AUTHOR AUTHOR'S ORGANIZATIO N 11/30/2017 [facility] DATE CREATED AUTHOR AUTHOR'S ORGANIZATIO N 07/10/2019 [facility] CREATED AUTHOR AUTHOR'S ORGANIZATIO N 08/06/2019 [facility] DATE CREATED AUTHOR AUTHOR'S ORGANIZATIO N 01/14/2020 [facility] UNRECOGNIZED CONTENT PROVIDED BELOW FOR UNRECOGNIZED SECTION Reason for Visit Reason Comments
== END ==
PROVIDERS: Visit Provider Internal Medicine Infectious Disease
DX: M06.9 Rheumatoid arthritis, unspecified (principal)
CPT/HCPCS: 80053; 80202; 85025; 85652; 86140

== ENCOUNTER → 2019-11-11 09:15 | Outpatient (CLI) | payer OTHER, SELFPAY ==
[2019-11-11 10:32] LABS: Erythrocyte Sedimentation Rate 11 mm/hr (0-20)
[2019-11-11 10:34] LABS: Absolute Lymphocyte Count 1.13 X10^3/uL (0.83-4.51); Absolute Neutrophil Count 4.1 X10^3/uL (2.0-7.7); Basophil# 0.07 X10^3/uL; Basophil% 1.2 % (0-1); Eosinophil# 0.24 X10^3/uL; Hematocrit 35.2 % (37-47); Hemoglobin 11.1 g/dL (12.0-15.0); Lymphocyte # 1.13 X10^3/ul (4.0); Lymphocyte % 18.8 % (19-41); Mean Corp Hgb Conc 31.5 g/dL (32-36); Mean Corpuscular Hgb 26.9 pg (27.0-32.0); Mean Corpuscular Volume 85.4 fL (81-99); Mean Platelet Vol. 10.6 fl (6.2-12.0); Monocyte% 8.3 % (0-10); NRBC Flagged by Analyzer 0 % (0-5); Neutrophil # 4.06 X10^3/uL (2.7-7.7); Neutrophil % 67.4 % (47-70); Platelet Count 322 K/mm3 (150-450); RBC Distribution Width CV 13.1 % (11.6-14.6); RBC Distribution Width SD 40.1 fl (35.1-43.9); Red Blood Count 4.12 M/mm3 (4.2-5.4)
[2019-11-11 11:14] LABS: Vancomycin, Trough Level 6.4 ug/mL (5.0-15.0)
[2019-11-11 11:16] LABS: ALB/GLOB Ratio 1.1 RATIO (0.9-2.4); AST(SGOT) 53 U/L (15-37); Alanine Aminotransfer ALT/SGPT 62 U/L (13-56); Albumin, Serum 3.4 g/dL (3.2-5.0); Alkaline Phosphatase 135 U/L (45-117); Anion Gap 8 (5-15); BUN 14 mg/dL (7-18); BUN/Creat Ratio 18.6 RATIO (10-20); CRP < 2.90 mg/L (0.0-3.0); Calcium,Total 8.9 mg/dL (8.5-10.1); Chloride 108 mmol/L (98-107); Creatinine, Serum 0.75 mg/dL (0.55-1.02); EST Glomerular Filtration Rate 93 mL/min (>60); Est Glom Filt Rate - Afr Amer 113 mL/min (>60); Globulin 3.2 g/dL (2.2-4.2); Glucose 105 mg/dL (74-106); Potassium 4.1 mmol/L (3.5-5.1); Protein, Total 6.6 g/dL (6.4-8.2); Sodium Level 140 mmol/L (136-145)
--- OUTSIDE RECORDS SUMMARY | 2020-03-29 05:44 | XMS RPT_ITS | CCD ---
:1985 External Reference #:[id number] Author Organization [facility] Care Team Providers Name Role Phone Dimas CASTELLANOS Unavailable Unavailable IMCA Unavailable Unavailable JamesDolores Primary Care Provider Dolores Ramirez Primary Care Provider Allergies Reported Allergen Reaction(s) Severity Date of Onset Location Acetaminophen / Nausea And Vomiting Mild 08-14-2019 - [facility], oxyCODONE [place] ([address]) Medications Current Medications Medication Name Sig Date Prescriber Location Albuterol / ipratropium-albuterol 08-17-2019 [facility], Ipratropium (DUONEB) nebulizer [place] ([address] ) solution 1 ampule ALPRAZolam ALPRAZolam (NIRAVAM) 01-09-[address] [facility], dissolvable tablet [place] ([address] ) 0.25 mg Aspirin aspirin 81 MG EC 08-26-2019 Samuel Diogenes Hagen [facility], tablet Take 1 tablet [place] (450 14) by mouth daily 30 tablet 3 08/27/2019 Active 325 mg, Oral, DAILY, First 08-14-2019 - 08-25-2019 [facility], [place] ([address]) dose on 08/17/19 at 1830 Calcium Chloride / lactated ringers 01-09-2020 [place] Lactate / Potassium infusion (47711) Chloride / Sodium Chloride lactated ringers 12-11-2019 [facility], [place] infusion (9[address]51) lactated ringers 11-15-2019 - 11-15-2019 [place] infusion ([address]) Intravenous, at 125 09-27-2019 [place] mL/hr, CONTINUOUS, (22159) Starting Mon09/27/19 at 1730, Post-op lactated ringers 09-27-2019 - 09-27-2019 [facility] [place] infusion ([address]78) Intravenous, at 125 08-23-2019 - 08-24-2019 Pepe Verde [facility], [place] mL/hr, CONTINUOUS, (01325) Starting 08/23/19 at 1930 lactated ringers 08-23-2019 - 08-23-2019 Carrington Stephens [facility] [place] infusion ([address]299) Intravenous, at 125 08-17-2019 - 08-20-2019 Alberto Rome [facility], [place] mL/hr, CONTINUOUS, (07308) Starting 08/17/19 at 1830 lactated ringers 08-17-2019 - 08-17-2019 [facility] [place] infusion (16262) lactated ringers 08-14-2019 - 08-14-2019 [facility] [place] infusion ([address]007) cefepime cefepime (MAXIPIME) 2 g 11-16-2019 Felix Love [place] IVPB extended (mini-bag) (45 237) Cetirizine 10 mg, Oral, DAILY, First 11-15-2019 [place] dose on Mon11/15/19 at 1700 ( 95975) 10 mg, Oral, DAILY, First dose 09-27-2019 [facility], [place] ([address]) on Mon09/27/19 at 1730 cetirizine (ZYRTEC) tablet 10 08-15-2019 - 08-17-2019 [place] ([address]) mg diphenhydrAMINE diphenhydrAMINE (BENADRYL) 01-09-2020 - [facility], injection 12.5 mg 01-09-2020 [place] ([address]) diphenhydrAMINE (BENADRYL) 12-11-2019 - 12-11-2019 [place] injection 12.5 mg (95535) Docusate docusate sodium (COLACE) 01-09-2020 - 02-08-2020 [place] 100 MG capsule Take 1 (14745 ) capsule by mouth 2 times daily 60 capsule 0 01/09/2020 02/08/2020 Active docusate sodium (COLACE) capsule 100 mg 11-17-2019 [place] ([address]) docusate sodium (COLACE) capsule 100 mg 08-20-2019 [place] ([address]) Docusate / sennosides, FDC 1 tablet, Oral, 2 TIMES 09-27-2019 [place] DAILY, First dose on (82365) Mon09/27/19 at 2100, Post-op sennosides-docusate sodium 08-15-2019 - 08-20-2019 [place] (SENOKOT-S) 8.6-50 MG tablet 2 ( 67788) tablet Enoxaparin enoxaparin (LOVENOX) injection 08-18-2019 [place] ([address]) 40 mg fentaNYL fentaNYL (SUBLIMAZE) injection 01-09-2020 [place] ([address]) 50 mcg fentaNYL (SUBLIMAZE) injection 25 mcg 01-09-2020 [place] ([address]) FLUoxetine FLUoxetine (PROZAC) 07-17-2019 - Mara Bernal [facility] 20 MG capsule Take 1 09-28-2019 [place] ([address]) capsule by mouth daily 30 capsule 5 07/17/2019 Active heparin heparin flush 100 08-15-2019 [facility] th- UNIT/ML injection 250 [place] ([address]) Units hydrALAZINE hydrALAZINE 01-09-2020 [facility]- (APRESOLINE) [place] ([address]) injection 5 mg hydrALAZINE (APRESOLINE) injection 5 mg 12-11-2019 [place] ([address]) HYDROmorphone HYDROmorphone (DILAUDID) 01-09-2020 [place] injection 0.25 mg (73282) HYDROmorphone (DILAUDID) 01-09-[address] [facility], [place] 0.5 mg [place] ([address]) HYDROmorphone (DILAUDID) 12-11-[address] [facility], [place] 1 mg [place] (81552) HYDROmorphone (DILAUDID) 12-11-2019 [facility] [place] 0.5 mg [place] ([address]) HYDROmorphone (DILAUDID) 12-11-2019 [facility] [place] 0.25 mg [place] ([address]60) HYDROmorphone (DILAUDID) 08-20-2019 - Heber Hayes [facility]- [place], injection 0.5 mg 08-23-2019 [place] (62960) HYDROmorphone (DILAUDID) 08-17-2019 - [facility] Eliu [facility]- [place], 1 MG/ML injection 08-17-2019 [place] ([address]896) HYDROmorphone (DILAUDID) 08-17-2019 - Edwar Yan [facility]- [place], injection 0.5 mg 08-17-2019 [place] ([address]27) HYDROmorphone (DILAUDID) 08-16-2019 - Randy Harris [facility]- [place], injection 1 mg 08-16-2019 [place] (65119) HYDROmorphone (DILAUDID) 08-15-2019 - [facility]- [place], [place] 1 mg 08-15-2019 [place] ([address]97) HYDROmorphone HYDROmorphone 09-27-2019 [facility]- (DILAUDID) injection (DILAUDID) [place] ([address]) 0.25 mg 0.25 mg Ibuprofen ibuprofen 12-11-2019 - Miesha Otoole [facility] (ADVIL;MOTRIN) 800 MG 12-21-2019 [place] ([address]) tablet Take 1 tablet by mouth 3 times daily as needed for Pain (with meals) 30 tablet 1 12/11/2019 Active iopamidol iopamidol 08-15-2019 [facility]- (ISOVUE-370) 76 % (ISOVUE-370) 76 % [place] ([address]) injection 100 mL injection 100 mL Ketorolac ketorolac (TORADOL) 08-24-2019 - [facility]- injection 30 mg 08-29-2019 [place] ([address] 7) ketorolac (TORADOL) injection 08-20-2019 - 08-23-2019 [facility] [place] ([address]) 30 mg Labetalol labetalol (NORMODYNE;TRANDATE) 01-09-2020 [place] injection 5 mg (91503) labetalol (NORMODYNE;TRANDATE) injection 5 12-11-2019 [place] ([address]) mg Lidocaine lidocaine PF 1 % injection 01-09-2020 - 01-09-2020 [place] 1 mL (70854) lidocaine PF 1 % injection 1 mL 12-11-2019 - 12-11-2019 [place] ([address]) Meperidine meperidine (DEMEROL) 01-09-2020 Heber Hayes [place] injection 12.5 mg (50961) meperidine (DEMEROL) injection 12-11-2019 [place] ([address]) 12.5 mg morphine sulfate morphine sulfate 11-16-2019 Fabio A [facility]- (PF) injection 2 mg (PF) injection 2 [place] ([address]) mg Ondansetron ondansetron 01-09-2020 - [facility] (ZOFRAN) injection 01-09-2020 [place] (4 5237) 4 mg ondansetron (ZOFRAN) injection 4 12-11-2019 - 12-11-2019 [place] mg ([address]34) 4 mg, Intravenous, EVERY 6 HOURS 08-14-2019 [place] PRN, Nausea, Vomiting, Starting (32186) 08/14/19 at 1623 Administer if oral route cannot be used. oxyCODONE oxyCODONE 01-09-2020 - [facility] (ROXICODONE) 01-09-2020 [place] ([address]) immediate release tablet 5 mg POLYETHYLENE GLYCOL polyethylene glycol 11-17-2019 Greg Corbett [facility] 3350 (GLYCOLAX) packet 17 [place] ([address]) g polyethylene glycol (GLYCOLAX) packet 17 g 08-20-2019 [place] ([address]) Promethazine promethazine (PHENERGAN) 01-09-2020 - 01-09-2020 [place] injection 6.25 mg (20776) promethazine (PHENERGAN) 12-11-2019 - 12-11-2019 [place] injection 6.25 mg (74807) promethazine (PHENERGAN) tablet 11-15-2019 [place] 12.5 mg (37041) promethazine (PHENERGAN) tablet 09-27-2019 [place] 12.5 mg (65594) sennosides, FDC senna (SENOKOT) tablet 8.6 mg 08-20-2019 [place] ([address]) Sodium Chloride sodium chloride flush 0.9 % 01-09-2020 [place] injection 10 mL (22410) 10 mL, Intravenous, EVERY 11-15-2019 [place] 12 HOURS SCHEDULED (2 (31603) times per day), First dose on Mon11/15/19 at 2100 10 mL, Intravenous, PRN, 11-15-2019 [place] [facility], After every IV (49223 ) line use, Starting Mon11/15/19 at 1554 10 mL, Intravenous, EVERY 09-27-2019 [place] 12 HOURS SCHEDULED (2 (38720) times per day), First dose on Mon09/27/19 at 2100, Post-op 10 mL, Intravenous, PRN, 09-27-2019 [place] [facility], Starting Mon (34827) 09/27/19 at 1705 After every IV line use Post-op 0.9 % sodium chloride 08-25-2019 - 08-25-2019 Michelle Cabrera [place] bolus (15562) 0.9 % sodium chloride 08-17-2019 - 08-18-2019 [place] bolus (20487) sodium chloride flush 0.9 08-15-2019 [place] % injection 10 mL (32008) sodium chloride flush 0.9 08-15-2019 [place] % injection 10 mL (04503) 10 mL, Intravenous, EVERY 08-14-2019 [place] 12 HOURS SCHEDULED (2 (66456) times per day), First dose on Mon08/14/19 at 2100 10 mL, Intravenous, PRN, 08-14-2019 [place] [facility], After every IV (98629 ) line use, Starting 08/14/19 at 1623 vancomycin (VANCOCIN) vancomycin (VANCOCIN) 11-15-2019 [place] 1,250 mg in dextrose 5 % 1,250 mg in dextrose 5 % (27810) 250 mL IVPB 250 mL IVPB vancomycin (VANCOCIN) 1,250 mg 08-17-2019 - 08-27-2019 [place] ([address]) in dextrose 5 % 250 mL IVPB vancomycin (VANCOCIN) vancomycin 08-27-2019 Victor Manuel K Mimi [facility], 1,500 mg in dextrose (VANCOCIN) 1,500 mg [place] (63969) 5 % 250 mL IVPB in dextrose 5 % 250 mL IVPB Completed/Discontinuned Medications Medication Name Sig Date Prescriber Location Acetaminophen acetaminophen (TYLENOL) 01-09-2020 - [facility], tablet 1,000 mg 01-09-2020 [place] ([address]) acetaminophen (TYLENOL) tablet 12-11-2019 - 12-11-2019 [place], [place] 1,000 mg (32135) 650 mg, Oral, EVERY 4 HOURS PRN, 11-15-2019 [place] Pain Mild (1-3), Fever, Fever (4 5237) >100.5 F (38 C), Starting 11/15/19 at 1554 Maximum dose of acetaminophen is 4000 mg from all sources in 24 hours. acetaminophen (TYLENOL) tablet 11-15-2019 - 11-15-2019 [place], [place] 1,000 mg (78631) 650 mg, Oral, EVERY 4 HOURS PRN, 09-27-2019 [place] Other, Pain (1-10), Starting Fri (14777) 09/27/19 at 1705 Give in addition to any other pain medication ordered at same time for any pain indication. Post-op acetaminophen (TYLENOL) tablet 09-27-2019 - 09-27-2019 [place] 1,000 mg (73859) acetaminophen (TYLENOL) tablet 08-23-2019 - 08-24-2019 [place] 650 mg (60122) acetaminophen (TYLENOL) tablet 08-19-2019 - 08-20-2019 [facility], [place] 650 mg (01676) acetaminophen (OFIRMEV) infusion 08-17-2019 - - [facility], [place] 1,000 mg (39453) acetaminophen (TYLENOL) tablet 08-14-2019 - - [facility], [place] 1,000 mg (81895) Acetaminophen / HYDROcodone-acetaminophen 01-09-2020 - Sushila Cochran Caryn HYDROcodone (NORCO) 5-325 MG per tablet 01-16-2020 [facility], Indications: [place] displaced [place] ([address]) 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 28 tablet 0 01/09/2020 01/16/2020 Active HYDROcodone-acetaminophen (NORCO) 12-11-2019 - Miesha Segundomao [facility]- 5-325 MG per tablet Indications: 12-18-2019 [place] ([address]) S/P split thickness skin graft Take 1 tablet by mouth every 6 hours as needed for Pain for up to 7 days. Intended supply: 7 days. 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 Intended supply: 7 days. Take lowest dose possible to manage pain 42 tablet 0 11/15/2019 11/22/2019 Active HYDROcodone-acetaminophen (NORCO) 09-28-2019 - Michelle Cabrera [facility]- 5-325 MG per tablet Indications: 10-05-2019 [place] ([address]) Wound dehiscence Take 1 tablet by mouth every 6 hours as needed for Pain for up to 7 days. 28 tablet 0 09/28/2019 10/05/2019 Active HYDROcodone-acetaminophen (NORCO) 09-27-2019 [facility]- 5-325 MG per tablet 1 [place] ([address]) HYDROcodone-acetaminophen (NORCO) 08-27-2019 - Samuel Diogenes Hieu [facility] 5-325 MG per tablet Indications: 01-09-2020 [place] ([address]) Closed torus fracture of distal end of left tibia with delayed healing, subsequent encounter Take 1 tablet by mouth every 6 hours as needed for Pain for up to 7 days. 28 tablet 0 08/27/2019 09/03/2019 Active HYDROcodone-acetaminophen (NORCO) 08-20-2019 [facility] 5-325 MG per tablet 1 tablet [place] ([address]) HYDROcodone-acetaminophen (NORCO) 08-19-2019 - [facility] 5-325 MG per tablet 1 tablet 08-27-2019 [place] ([address]) alteplase (CATHFLO) alteplase (CATHFLO) 11-16-2019 - M [facility], injection 1 mg injection 1 mg 11-16-2019 [place] ([address]08) alteplase (CATHFLO) injection 1 11-16-2019 - 11-16-2019 [facility], [place] ([address]) mg ceFAZolin 2 g, Intravenous, EVERY 8 09-27-2019 - 09-28-2019 [facility], [place] HOURS, 3 doses, First dose ( 61108) on Mon09/27/19 at 1730, Last dose on Mon09/28/19 at 0930, Post-op 2 g, Intravenous, EVERY 8 08-14-2019 - 08-15-2019 German Cabrera [place] HOURS, First dose on Mon (48014) 08/14/19 at 1645, Until Discontinued ceFAZolin (ANCEF) 2 g in 08-14-2019 - 08-14-2019 Mando Jing [facility], [place] dextrose 4 % 100 mL IVPB (64142) (premix) ceFAZolin (ANCEF) ceFAZolin (ANCEF) 12-11-2019 - Jesse R Boris [facility]- 2 g in dextrose 5 2 g in dextrose 5 12-11-2019 [place] (82107) % 100 mL IVPB % 100 mL IVPB celecoxib celecoxib 01-09-2020 - [facility]- (CELEBREX) capsule 01-09-2020 [place] (4 3092) 400 mg celecoxib (CELEBREX) capsule 11-15-2019 - 11-15-2019 [facility], [place] ([address]) 400 mg celecoxib (CELEBREX) capsule 08-14-2019 - 08-14-2019 [facility], [place] ([address]) 400 mg Ciprofloxacin ciprofloxacin (CIPRO) 05-22-2019 - Historical [facility]- 500 MG tablet TAKE 1 08-27-2019 [place] ([address]) TABLET BY MOUTH TWICE Historical DAILY 0 05/22/2019 Provider 08/27/2019 Discontinued (Stop Taking at Discharge) Famotidine famotidine (PEPCID) 01-09-2020 - [facility]- tablet 20 mg 01-09-2020 [place] ([address]) famotidine (PEPCID) tablet 20 12-11-2019 - 12-11-2019 [place] ([address]) mg famotidine (PEPCID) tablet 20 11-15-2019 - 11-15-2019 [place] ([address]) mg famotidine (PEPCID) tablet 20 09-27-2019 - 09-27-2019 [place] ([address]89) mg famotidine (PEPCID) tablet 20 08-14-2019 - 08-14-2019 [place] ([address]) mg gabapentin gabapentin (NEURONTIN) 01-09-2020 - 01-09-2020 [place] capsule 300 mg (88857) gabapentin (NEURONTIN) 11-15-2019 - 11-15-2019 [place] capsule 300 mg (95021) gabapentin (NEURONTIN) 09-27-2019 - 09-27-2019 Jesse R Boris [place] capsule 300 mg (39728) gabapentin (NEURONTIN) 08-14-2019 - 08-14-2019 [place] capsule 300 mg (66577) guaiFENesin guaiFENesin 08-15-2019 - [facility]- (MUCINEX) extended 08-17-2019 [place] (4 5237) release tablet 600 mg LORazepam LORazepam (ATIVAN) 2 08-23-2019 - Historical [facility]- MG/ML injection 08-23-2019 [place] (45[address] 7) LORazepam (ATIVAN) 08-23-2019 - 08-23-2019 Venkat Arroyo [place], [place] injection 0.5 mg (32226) Magnesium Sulfate magnesium sulfate 08-17-2019 - Valencia Oakes [facility]- 2 g in 50 mL IVPB 08-17-2019 [place] (45 237) premix Midazolam midazolam 01-09-2020 - Historical [facility]- (VERSED) 2 MG/2ML 01-09-2020 Provider [place] (45 [address]) injection midazolam (VERSED) 01-09-2020 German Betancourt [place] injection 2 mg (71216) midazolam (VERSED) 11-15-2019 - 11-15-2019 Venkat Monroy Cruz [place] injection 2 mg (47118) midazolam (VERSED) 09-27-2019 - 09-27-2019 Edwar Yan [place] injection 2 mg (44050) midazolam (VERSED) 08-13-2019 - 08-14-2019 Altaf Lara [place] injection 2 mg (34752) Morphine morphine sulfate 11-18-2019 - Santi Page [facility], (PF) injection 4 mg 11-18-2019 [place] (4523 7) morphine sulfate (PF) 11-16-2019 - Petar Nuno [facility], injection 2 mg 11-16-2019 [place] (73074) Vancomycin vancomycin (VANCOCIN) 1000 mg in 09-28-2019 [place] ([address]) dextrose 5% 200 mL IVPB VANCOMYCIN HCL IV Infuse 09-17-2019 - Historical Provider [facility], 1 g intravenously every 09-28-2019 [place] (4523 7) 12 hours 0 09/17/2019 09/28/2019 Active vancomycin (VANCOCIN) 08-15-2019 - Dat Honeycutt [facility], 1000 mg in dextrose 5% 08-17-2019 [place] (83675 ) 200 mL IVPB VANCOMYCIN HCL IV Infuse 01-09-2020 Historical Provider [facility], intravenously 0 [place] ([address]) 01/09/2020 Discontinued VANCOMYCIN HCL IV Infuse Historical Provider [facility], intravenously 0 Active [place] ([address]41 ) Problems Active Problems Category Problem Name Status Date Location Anxiety disorders Anxiety Active 12-25-2014 - [facility] th- [place] ([address]) Complication of device; Infection associated with Active [facility], implant or graft [place] ([address]) Endometriosis Endometriosis (clinical) Active 06-17-2016 - [facility] [place] ([address]) Fracture of lower limb Closed fracture distal Active 08-13-19 [facility] [place] ([address]) Infective arthritis and Osteomyelitis of tibia Active [facility], osteomyelitis (except [place] (45 237) that caused by tuberculosis or sexually transmitted disease) Mood disorders Depressive disorder Active 12-25-2014 [facility] [place] ([address]) Other infections; Sequela of infection Active [facility], including parasitic caused by Corynebacterium [place] (81974) Residual codes; At risk of breast cancer Active 06-27-2018 - [facility], unclassified [place] ([address]58) Residual codes; H/O: surgery Active [facility], [place]classified [place] ([address]60) Past or Other Problems Category Problem Name Status Date Location Abdominal pain Chronic pelvic pain of Completed 06-17-2016 - [facility]- [place] ([address]) Acute posthemorrhagic Acute posthemorrhagic Completed 08-17-2019 [facility] anemia anemia [place] ([address]) Complications of Postoperative wound Completed 09-27-2019 [facility]- surgical procedures or breakdown [place], [place] (17844) medical care Fluid and electrolyte Hyponatremia Completed 08-19-2019 [facility]- disorders [place] ([address]) Headache; including Posttraumatic headache Completed 12-25-2014 [facility] migraine [place] (89755) Open wounds of Unspecified open wound, Completed 08-15-2019 - [facility] extremities left ankle, [place] ( [address]) encounter Open wounds of head; Wound dehiscence Completed 08-13-2019 [facility] neck; and trunk [place] (4691 7) Residual codes; Family history of Completed 06-27-2018 [facility] ealt- unclassified malignant neoplasm [place] ([address]) breast Results Result Name Value Range Unit Interpretation Flag Date Location op note on Op Note PATIENT: DENYS ARRIOLA Normal 2019 [facility] ([id number]) ADMISSION DATE: 01/09/2020 SURGERY DATE: 01/09/2020 DATE [...] Diagnosis: Left distal tibia nonunion. Anesthesia: General. Medical Service Representative: Steven Ortega M.D. Estimated Blood Loss: 100 cc. Fluids: Crystalloid. Clinical History: The patient is a 34-year-old female who pr eviously underwent ORIF of a distal tibia fracture at [facility]. She immediately had wound breakdown and was sent to [facility] after hav ing exposed hardware in the [...] condition without comp lication. Diskriter Job ID: [id number] Deon Davila MD DOD:01/10/2020 04:02 P EM/dsk DOT:01/10/2020 05:04 P Job Number: [id number] Document Number: [id number] cc: Deon Davila MD [address] [address] cult/stain - aerobic and anaerobic on 2019-11-20 CULT/STAIN - AEROBIC STAIN GRAM --> Status: F Norm al 11-20-2019 [facility] AND ANAEROBIC Rare polymorphonuclear cells/lpf. System (15090) No organisms seen. No organisms seen. CULT./ST. BACTERIA --> Status: F No growth at 3 days. CULTURE ANAEROBE --> Status: F No growth of anaerobes at 5 days. Comment: Order Comment: Specimen cat ected in O.R. Performed By: #### Alla HILLS/ MICAELA #### [address] [id number] vancomycin trough o n 2019-11-17 Vancomycin Trough 12.1 15.0-20.0 ug/mL Low 11-17-2019 [facility] (40893) Comment: Result Comment: . Performed By: #### Alla HILLS/ MICAELA #### [facility] [place] [address] [address] No panel information on 2019-11-17 Interpretation and review Abnormal [place] of laboratory results (97810) Vancomycin Tr 12.1 15 - 20 ug/mL Low 11-17-2019 [place] ([address]) Comment: . Test Performed by [facility] 11-17-2019 [place] ([address]) [address] [address] hemogram on 2019-11 Erythrocyte distribution 13.9 11.5-14.5 % Normal 11-15 [facility] width (RBC) [Ratio] (34743) Comment: Performed By: #### Alla HILLS/ MICAELA #### [place] [address] [address] [place], [place] Hematocrit (Bld) [Volume 30.5 35.0-47.0 % Low 11-15 [facility] System fraction] (17328) Comment: Performed By: #### Alla HILLS/ MICAELA #### [place] [address] [address] [place], [place] Hemoglobin (Bld) [Mass/Vol] 10.3 11.7-16.0 g/dL Low [facility] System (50869) Comment: Performed By: #### REINIER C/ MICAELA #### [place] [address] [address] [place], [place] MCH (RBC) [Entitic mass] 27.2 26.0-34.0 pg Normal 11-15 [facility] (40955) Comment: Performed By: #### Alla HILLS/ MICAELA #### [place] [address] [address] [place], [place] MCHC (RBC) [Mass/Vol] 33.8 32.0-36.0 % Normal 11-16-19 20 [facility] (98126) Comment: Performed By: #### Alla HILLS/ MICAELA #### [place] [address] [address] [place], [place] MCV (RBC) [Entitic vol] 80.5 79.0-98.0 fL Normal 2019 [facility] (36009) Comment: Performed By: #### Alla HILLS/ MICAELA #### [place] [address] [address] [place], [place] Platelet mean volume (Bld) 8.5 7.4-10.4 fL Normal [facility] [Entitic vol] (23693 ) Comment: Performed By: #### Alla HILLS/ MICAELA #### [place] [address] [address] [place], [place] Platelets (Bld) [#/Vol] 327 140-440 10*3/uL Normal 2019 [facility] (18748) Comment: Performed By: #### Alla HILLS/ MICAELA #### [facility] [address] [place], [place] RBC (Bld) [#/Vol] 3.79 3.80-5.20 10*6/uL Low 11-16-2019 [facility] (74640) Comment: Performed By: #### REINIER C/ MICAELA #### [place] [address] [address] [place], [place] WBC (Bld) [#/Vol] 14.3 3.6-10.7 10*3/uL High 11-16-2019 [facility] (33088) Comment: Performed By: #### REINIER C/ MICAELA #### [place] [address] [address] [place], [place] basic metabolic panel on 2019-11-16 Calcium [Mass/Vol] 9.1 8.4-10.4 mg/dL Normal 11-16-2019 [facility] (22490) Comment: Performed By: #### Alla HILLS/ MICAELA #### [place] [address] [address] [place], [place] Anion gap [Moles/Vol] 9 Normal 11-16-19 [facility] (40945) Comment: Performed By: #### Alla HILLS/ MICAELA #### [place] [address] [address] [place], [place] CO2 [Moles/Vol] 21 22-30 mmol/L Low 11-16-2019 [facility] (58353) Comment: Performed By: #### Alla HILLS/ MICAELA #### [place] [address] [address] [place], [place] Creatinine [Mass/Vol] 0.63 0.52-1.25 mg/dL Normal 11-16-19 [facility] (99660) Comment: Performed By: #### REINIER C/ MICAELA #### [place] [address] [address] [place], [place] GFR/1.73 sq M > 90.0 >60 mL/min/{1.73_m2} Normal 0 [facility] predicted among Syst em (34160) blacks MDRD (S/P/Bld) [Vol rate/Area] Comment: Performed By: #### Alla HILLS/ MICAELA #### [facility] [address], [place] GFR/1.73 sq M > 90.0 >60 mL/min/{1.73_m2} Normal 0 [facility] predicted among Syst em ([address]32) non-blacks MDRD (S/P/Bld) [Vol rate/Area] Comment: Result [...] Performed By: #### Alla HILLS/ MICAELA #### [facility] [address], [place] Glucose [Mass/Vol] 132 70-100 mg/dL High 11-16-2019 [facility] (23811) Comment: Performed By: #### Alla HILLS/ MICAELA #### [facility] [address], [place] Urea nitrogen [Mass/Vol] 17 7-20 mg/dL Normal 11-15 [facility] (17581) Comment: Performed By: #### Alla HILLS/ MICAELA #### [facility] [address], [place] Chloride [Moles/Vol] 103 98-107 mmol/L Normal 0 [facility] ([address] Comment: Performed By: #### REINIER C/ MICAELA #### [facility] [address], [place] Potassium [Moles/Vol] 4.3 3.5-5.1 mmol/L Normal 11-16-19 [facility] (40467) Comment: Performed By: #### REINIER C/ MICAELA #### [facility] [address], [place] Sodium [Moles/Vol] 133 135-145 mmol/L Low 11-16-2019 [facility] (16244) Comment: Performed By: #### REINIER C/ MICAELA #### [facility] [address], [place] No panel information on 2019-11-16 Anion gap [Moles/Vol] 9 mmol/L 11-16-19 20 [place] ([address]) Calcium [Mass/Vol] 9.1 8.4 - 10.4 mg/dL 11-16-2019 [place] ([address]) Chloride [Moles/Vol] 103 98 - 107 mmol/L 0 [place] ([address]) CO2 [Moles/Vol] 21 22 - 30 mmol/L Low 11-16-2019 [place] ([address]) Creatinine [Mass/Vol] 0.63 0.52 - 1.25 mg/dL 2019 [place] ([address]) EGFR IF NonAfrican >90.0 >60 mL/min 11-16-2019 [place] ([address]) Comment: KDIGO guidelines provide the following GFR [...] (GFR) from serum creatinine in children is [facility] Rinaldi equation. It is less accurate in patie nts with extremes of muscle mass, restriction of dietary protein, ingestion of creatine, extra-renal metabolism of cr eatinine, or treatment with medications that affect rahul l tubular creatinine secretion. GFR/1.73 sq M >90.0 >60 mL/min mL/min/{1.73_m2} 11-16-19 20 [facility] predicted among [facility], blacks MDRD [place] (2623 7) (S/P/Bld) [Vol rate/Area] Glucose [Mass/Vol] 132 70 - 100 mg/dL High 11-16-2019 [place] ([address]) Interpretation and Abnormal 11-16-2019 [facility] review of [facility] , laboratory results K [place] (61307) Potassium 4.3 3.5 - 5.1 mmol/L 11-16-2019 [facility] [Moles/Vol] [place] ([address]) Sodium [Moles/Vol] 133 135 - 145 mmol/L Low 11-16-2019 [place] ([address]) Urea nitrogen 17 7 - 20 mg/dL 11-16-2019 [facility] [Mass/Vol] [place] ([address]) Test 11-16-2019 [facility] Performed by [facility] [place] (116 96) System, [address] [place] [address] Erythrocyte 13.9 11.5 - % 11-16-2019 [facility] distribution width 14.5 H [facility], (RBC) [Ratio] [place] ([address] 596) Hematocrit (Bld) 30.5 35 - 47 % Low 11-16-2019 [facility] [Volume fraction] [place] ([address]) Hemoglobin (Bld) 10.3 11.7 - 16 g/dL Low 11-16-2019 [facility] [Mass/Vol] [place] ([address]) Interpretation and Abnormal 11-16-2019 [facility] review of [facility] , laboratory results K Y (16086) MCH (RBC) [Entitic 27.2 26 - 34 pg 11-16-2019 [facility] mass] [place] ([address]) MCHC (RBC) 33.8 32 - 36 % 11-16-2019 [facility] [Mass/Vol] [facility] [place] (69267) MCV (RBC) [Entitic 80.5 79 - 98 fL 11-16-2019 [facility] vol] [facility] [place] ([address]) Platelet mean 8.5 7.4 - 10.4 fL 11-16-2019 [facility] y volume (Bld) [facility], [Entitic vol] [place] (45 237) Platelets (Bld) 327 140 - 440 10*3/uL 11-16-2019 [facility] [#/Vol] [place] ([address]) RBC (Bld) [#/Vol] 3.79 3.8 - 5.2 10*6/uL Low 11-16-2019 [place] ([address]) WBC (Bld) [#/Vol] 14.3 3.6 - 10.7 10*3/uL High 11-16-2019 [place] ([address]) Test 11-16-2019 [facility] Performed by [facility] [place] (452 37) System, [address] [place] [address] op note on Op Note Hand Plastic & Reconstructive Surgery No rmal 11-15-2019 [facility] Operative Report (00 000) 11/15/19 Pre-operative [...] to normal structures that can lead to residential problems of pain or dysfunction, wound healing [...] patient's ASA was verified by the nurse cis coordinator and the anesthesi a staff. Fire risk [...] flap. The posterior flap edge and the zuni tissue was trimmed of scar tissue. At [...] to PACU in sta ble condition The first-insurance underwriting assistant was critical to all steps of the operati on, including retraction and arm extremity stabilization during exposure, as well as the deep and superficial wound closure. I understand that section 1842(b)(7)(D) of the Social Security Act generall y prohibits Medicare physician fee schedule payment for the services of assistants at [facility] y in teaching hospitals when qualified residents are available to furnish such services . I certify that the services for which payment is claimed were medically necessary and that no qualified resident was available to pe rform the services. I further understand that these services are subject to post- payment review by the Medicare carrier. Surgeon: Boris-PlasticYovanny (orthopaedics dictated [facility]) Medical Service Representative(s): Xiang ASHER Anesthesia: General endotrachial anesthesia and Regional Estimated blood loss: 300 ml Total IV fluids: 1300 ml crystalloids Blood Transfusion?: No Total Urine Output: 450 cc Drains: Wound vac Specimens: none Implants: Please see Yovanny op note for implants Complications: none Condition: Stable Op Note [facility] Normal 06-0 [facility] GENERAL SURGERY (70926) [address] [facility] [address] Dept: [phone] Loc: [phone] Operative Report Patient Name: Denys Arriola Date [...] antibiotic cement spacer Surgeon: Deon Davila M.D. Medical Service Representative(s): Steven Knutson M.D. and Shad Mon Anesthesia: [...] as well as medical complications such as [place], stroke, PE, DVT, and even . Pt [...] impregnated nail was created using a 40 Maori chest tube with tobramycin and vancomycin im [...] 2 TS GEL ABO Group: Normal 11-12-2019 [facility] alth System (12495) B Rh, Gel: POS Antibody Screen Gel: NEG Comment: Performed By: #### CXTIS, C/ MICAELA #### [facility] [address] [place] [phone] sars-cov-2 on 11-11 SARS-CoV-2 SARS-CoV-2 --> Status: F Normal [facility] Not Detected (69006) Expected Result: Not Detected _ Real-time, RT-PCR performed on the BD MAX System by the [facility] Microbiology Service. Negative results do not preclude SARS-CoV-2 infection and should not be used as the sole basis for treatment or other patient management decisions. This assay was developed by [employer] and distributed under an Emergency Use Authorization (EUA) granted by the FDA for the qualitative detection of SARS-CoV-2 nucleic acid. Expected Result: Not Detected _ Real-time, RT-PCR performed on the [employer] MAX System by the [facility] Microbiology Service. Negative results do not preclude SARS-CoV-2 infection and should not be used as the sole basis for treatment or other patient management decisions. This assay was developed by [employer] and distributed under an Emergency Use Authorization (EUA) granted by the FDA for the qualitative detection of SARS-CoV-2 nucleic acid. Comment: Order Comment: Specimen cat ected in O.R. Performed By: #### Alla HILLS/ MICAELA #### [place] [address], [place] hemoglobin and hematocrit on 2019-11-12 Hematocrit (Bld) [Volume 35.7 35.0-47.0 % Normal 11-11 [facility] fraction] (63651) Comment: Performed By: #### Alla HILLS/ MICAELA #### [place] [address] [place] [address] Hemoglobin (Bld) 11.8 11.7-16.0 g/dL Normal 11-12-2019 [facility] [Mass/Vol] (86094) Comment: Performed By: #### REINIER C/ MICAELA #### [place] [address] [place] [address] No panel information on 2019-11-12 SARS-CoV-2 Not Detected 11-12-2019 [facility]- Expected Result: Not Detected [place], [place] ([address]) _ Real-time, RT-PCR performed on the BD MAX System by the [facility] Microbiology Service. Negative results do not preclude SARS-CoV-2 infection and should not be used as the sole basis for treatment or other patient management decisions. This assay was developed by [employer] and distributed under an Emergency Use Authorization (EUA) granted by the FDA for the qualitative detection of SARS-CoV-2 nucleic acid. Test Performed by 11-12-2019 [place] ([address]) [address] [place] [address] Specimen Source Comment:Nasopharyngea l Swab Sodium [Moles/Vol] B 11-12-2019 [place], [place] (66 [address]) Sodium [Moles/Vol] NEG mmol/L 11-12-2019 [place] (67 [address]) Sodium [Moles/Vol] POS mmol/L 11-12-2019 [place] (25 178) Test Performed by 11-12-2019 [place] ([address]) [address] [place] [address] Hematocrit (Bld) 35.7 35 - 47 % 11-12-2019 [facility]- [Volume fraction] [place] ([address]) Hemoglobin (Bld) 11.8 11.7 - 16 g/dL 11-12-2019 [facility]- [Mass/Vol] [place], [place] (4 [address]237) Test Performed by 11-12-2019 [place] ([address]) [address] [place] [address] op note on Op Note Hand Plastic & Reconstructive Surgery No rmal 09-27-2019 [facility] Operative Report (00 000) 09/27/19 Pre-operative [...] to normal structures that can lead to residential problems of pain or dysfunction, wound healing [...] patient's ASA was verified by the nurse cis coordinator and the anesthesi a staff. Fire risk [...] to PACU in stable condition Surgeon: Boris Medical Service Representative(s): Andrea PGY 6 Anesthesia: General endotrachial anesthesia Estimated blood loss: 50cc Total IV fluids: 350 ml Blood Transfusion?: No Total Urine Output: NR Drains: NO Specimens: none Implants: none Findings: Exposed cement spacer Complications: none Condition: Stable hemogram w/ autodiff on 2019-08-28 Abs Baso Cnt 0.1 0.0-0.2 10*3/uL Normal 08-28-2019 [facility] (15009) Comment: Performed By: #### REINIER C/ MICAELA #### [place] [address], [place] Abs Neutrophile Cnt 6.3 1.8-7.0 10*3/uL Normal 08-28-2019 [facility] (93698) Comment: Performed By: #### REINIER C/ MICAELA #### [facility] [place] [address], [place] Basophils/100 WBC (Bld) 1.1 0.0-2.0 % Normal 2019 [facility] (73845) Comment: Performed By: #### REINIER C/ MICAELA #### [place] [address] [place], [place] Eosinophils (Bld) [#/Vol] 0.3 0.0-0.5 10*3/uL Normal 08-10 [facility] (37133) Comment: Performed By: #### REINIER C/ MICAELA #### [place] [address] [place] [address] Eosinophils/100 WBC (Bld) 3.5 1.0-6.0 % Normal 08-10 [facility] (19303) Comment: Performed By: #### REINIER C/ MICAELA #### [place] [address] [place], [place] Erythrocyte distribution 13.9 11.5-14.5 % Normal 08-27 [facility] width (RBC) [Ratio] (29847) Comment: Performed By: #### REINIER C/ MICAELA #### [place] [address], [place] Granulocytes/100 WBC (Bld) 68.1 40.0-80.0 % Normal [facility] (38333) Comment: Performed By: #### REINIER C/ MICAELA #### [place] [address], [place] Hematocrit (Bld) [Volume 25.2 35.0-47.0 % Low 08-27 [facility] fraction] (98654) Comment: Performed By: #### REINIER C/ MICAELA #### [place] [address], [place] Hemoglobin (Bld) [Mass/Vol] 8.7 11.7-16.0 g/dL Low [facility] (03659) Comment: Performed By: #### REINIER C/ MICAELA #### [place] [address], [place] Lymphocytes (Bld) [#/Vol] 1.9 1.0-4.3 10*3/uL Normal 08-10 [facility] (52871) Comment: Performed By: #### REINIER C/ MICAELA #### [place] [address], [place] Lymphocytes/100 WBC (Bld) 20.9 20.0-40.0 % Normal 08-10 [facility] (42495) Comment: Performed By: #### REINIER C/ MICAELA #### [place] [address], [place] MCH (RBC) [Entitic mass] 30.9 26.0-34.0 pg Normal 08-27 [facility] (37613) Comment: Performed By: #### REINIER C/ MICAELA #### [place] [address], [place] MCHC (RBC) [Mass/Vol] 34.7 32.0-36.0 % Normal 08-28-19 20 [facility] (75829) Comment: Performed By: #### REINIER, C/ MICAELA #### [facility] [address], [place] MCV (RBC) [Entitic vol] 89.1 79.0-98.0 fL Normal 2019 [facility] (81860) Comment: Performed By: #### REINIER, C/ MICAELA #### [facility] [address], [place] Monocytes (Bld) [#/Vol] 0.6 0.0-0.8 10*3/uL Normal 2019 [facility] (43346) Comment: Performed By: #### REINIER C/ MICAELA #### [place] [address], [place] Monocytes/100 WBC (Bld) 6.4 2.0-10.0 % Normal 2019 [facility] (25646) Comment: Performed By: #### REINIER, C/ MICAELA #### [place] [address], [place] Platelet mean volume (Bld) 7.6 7.4-10.4 fL Normal [facility] [Entitic vol] (15863 ) Comment: Performed By: #### REINIER, C/ MICAELA #### [place] [address], [place] Platelets (Bld) [#/Vol] 359 140-440 10*3/uL Normal 2019 [facility] (42056) Comment: Performed By: #### REINIER, C/ MICAELA #### [facility] [address], [place] RBC (Bld) [#/Vol] 2.83 3.80-5.20 10*6/uL Low 08-28-2019 [facility] (53123) Comment: Performed By: #### REINIER, C/ MICAELA #### [place] [address], [place] WBC (Bld) [#/Vol] 9.2 3.6-10.7 10*3/uL Normal 08-28-2019 [facility] (87722) Comment: Performed By: #### REINIER C/ MICAELA #### [facility] [address] [place] [address] basic metabolic panel on 2019-08-28 Anion gap [Moles/Vol] 8 Normal 08-28-19 [facility] (23129) Comment: Performed By: #### REINIER C/ MICAELA #### [facility] [address] [place] [address] Calcium [Mass/Vol] 9.4 8.4-10.4 mg/dL Normal 08-28-2019 [facility] (30719) Comment: Performed By: #### REINIER C/ MICAELA #### [place] [address] [place] [address] CO2 [Moles/Vol] 27 22-30 mmol/L Normal 08-28-2019 [facility] (97530) Comment: Performed By: #### REINIER C/ MICAELA #### [place] [address] [place] [address] Creatinine [Mass/Vol] 0.64 0.52-1.25 mg/dL Normal 08-28-19 [facility] (35815) Comment: Performed By: #### REINIER C/ MICAELA #### [place] [address] [place] [address] GFR/1.73 sq M > 60.0 >60 mL/min/{1.73_m2} Normal 0 [facility] predicted among Syst [place] (25606) blacks MDRD (S/P/Bld) [Vol rate/Area] Comment: Performed By: #### REINIER C/ MICAELA #### [place] [address] [place] [address] GFR/1.73 sq M > 60.0 >60 mL/min/{1.73_m2} Normal 0 [facility] predicted among Syst [place] (48792) non-blacks MDRD (S/P/Bld) [Vol rate/Area] Comment: Result Comment: Source- MDRD equation with creatinine calibration to IDMS(NKDEP) eGFR not recommended for nicolas g dose adjustment Performed By: #### Alla HILLS/ MICAELA #### [facility] [address] [place] [address] Glucose [Mass/Vol] 96 70-100 mg/dL Normal 08-28-2019 [facility] (97260) Comment: Performed By: #### Alla HILLS/ MICAELA #### [facility] [address] [place] [address] Urea nitrogen [Mass/Vol] 18 7-20 mg/dL Normal 08-27 [facility] (08211) Comment: Performed By: #### Alla HILLS/ MICAELA #### [facility] [address], [place] Chloride [Moles/Vol] 99 98-107 mmol/L Normal 0 [facility] (78047) Comment: Performed By: #### Alla HILLS/ MICAELA #### [facility] [place] [address], [place] Potassium [Moles/Vol] 4.2 3.5-5.1 mmol/L Normal 08-28-19 20 [facility] (82346) Comment: Performed By: #### Alla HILLS/ MICAELA #### [facility] [place] [address] [place] [address] Sodium [Moles/Vol] 133 135-145 mmol/L Low 08-28-2019 [facility] (93800) Comment: Performed By: #### Alla HILLS/ MICAELA #### [facility] [address] [place] [address] No panel information on 2019-08-28 Anion gap [Moles/Vol] 8 mmol/L 08-28-19 [place] ([address]) Calcium [Mass/Vol] 9.4 8.4 - 10.4 mg/dL 08-28-2019 [place] ([address]) Chloride [Moles/Vol] 99 98 - 107 mmol/L 0 [place] ([address]) CO2 [Moles/Vol] 27 22 - 30 mmol/L 08-28-2019 [place] ([address]) Creatinine [Mass/Vol] 0.64 0.52 - 1.25 mg/dL 2019 [place] ([address]) EGFR IF NonAfrican >60.0 >60 mL/min 08-28-2019 [place] ([address]) Comment: Source- MDRD equation with c reatinine calibration to IDMS(NKDEP) eGFR not recommended for nicolas g dose adjustment GFR/1.73 sq M >60.0 >60 mL/min mL/min/{1.73_m2} 08-28-19 20 [facility] predicted among [facility] blacks MDRD [place] (2898 7) (S/P/Bld) [Vol rate/Area] Glucose [Mass/Vol] 96 70 - 100 mg/dL 08-28-2019 [place] ([address]) Interpretation and Abnormal 08-28-2019 [facility] review of [facility] , laboratory results K Y (85679) Potassium 4.2 3.5 - 5.1 mmol/L 08-28-2019 [facility] [Moles/Vol] [place] ([address]) Sodium [Moles/Vol] 133 135 - 145 mmol/L Low 08-28-2019 [place] ([address]) Urea nitrogen 18 7 - 20 mg/dL 08-28-2019 [facility] [Mass/Vol] [place] ([address]) Test 08-28-2019 [facility] Performed by [facility] (421 43) [facility], [address] [place] [address] Absolute Baso # 0.1 0 - 0.2 10*3/uL 08-28-2019 [place] ([address]) Absolute Neut # 6.3 1.8 - 7 10*3/uL 08-28-2019 [place] ([address]) Basophils/100 WBC 1.1 0 - 2 % 08-28-2019 [facility] (Bld) [place] ([address]) Eosinophils (Bld) 0.3 0 - 0.5 10*3/uL 03-18-2020 [facility] [#/Vol] [place] ([address]) Eosinophils/100 WBC 3.5 1 - 6 % 08-28-2019 [facility] (Bld) [place] ([address]) Erythrocyte 13.9 11.5 - % 08-28-2019 [facility] distribution width 14.5 [facility] (RBC[facility] [Ratio] [place] (45 237) Granulocytes/100 68.1 40 - 80 % 08-28-2019 [facility] WBC (Bld) [place] ([address]) Hematocrit (Bld) 25.2 35 - 47 % Low 08-28-2019 [facility] [Volume fraction] [place] ([address]) Hemoglobin (Bld) 8.7 11.7 - 16 g/dL Low 08-28-2019 [facility] [Mass/Vol] [place] ([address]) Interpretation and Abnormal 08-28-2019 [facility] , laboratory results K Y (82279) Lymphocytes (Bld) 1.9 1 - 4.3 10*3/uL 08-28-2019 [facility] [#/Vol] [place] ([address]) Lymphocytes/100 WBC 20.9 20 - 40 % 08-28-2019 [facility] (Bld) [place] ([address]) MCH (RBC) [Entitic 30.9 26 - 34 pg 08-28-2019 [facility] mass] [place] ([address]) MCHC (RBC) 34.7 32 - 36 % 08-28-2019 [facility] [Mass/Vol] [place] ([address]) MCV (RBC) [Entitic 89.1 79 - 98 fL 08-28-2019 [facility] vol] [place] ([address]) Monocytes (Bld) 0.6 0 - 0.8 10*3/uL 2020 [facility] [#/Vol] [place] ([address]) Monocytes/100 WBC 6.4 2 - 10 % 08-28-2019 [facility] (Bld) [place] ([address]) Platelet mean 7.6 7.4 - 10.4 fL 08-28-2019 [facility] volume (Bld) [facility], [Entitic vol] [place] (45 237) Platelets (Bld) 359 140 - 440 10*3/uL 08-28-2019 [facility] [#/Vol] [place] ([address]) RBC (Bld) [#/Vol] 2.83 3.8 - 5.2 10*6/uL Low 08-28-2019 [place] ([address]) WBC (Bld) [#/Vol] 9.2 3.6 - 10.7 10*3/uL 08-28-2019 [place] ([address]) Test 08-28-2019 [facility] Performed by [facility] (452 37) System, [address] [place] [address] vancomycin trough o n 2019-08-27 Vancomycin Trough 12.4 15.0-20.0 ug/mL Low 08-27-2019 [facility] (03859) Comment: Result Comment: . Performed By: #### REINIER C/ MICAELA #### [facility] [address], [place] hemogram w/ autodiff on 2019-08-27 Abs Baso Cnt 0.1 0.0-0.2 10*3/uL Normal 08-27-2019 [facility] (33316) Comment: Performed By: #### REINIER C/ MICAELA #### [place] [address] [place] [address] Abs Neutrophile Cnt 7.3 1.8-7.0 10*3/uL High 08-27-2019 [facility] (67223) Comment: Performed By: #### REINIER C/ MICAELA #### [facility] [address] [place] [address] Basophils/100 WBC (Bld) 0.7 0.0-2.0 % Normal 2019 [facility] (61348) Comment: Performed By: #### REINIER C/ MICAELA #### [facility] [address] [place], [place] Eosinophils (Bld) [#/Vol] 0.3 0.0-0.5 10*3/uL Normal 08-10 [facility] (15613) Comment: Performed By: #### Alla HILLS/ MICAELA #### [facility] [place] [address] Eosinophils/100 WBC (Bld) 3.1 1.0-6.0 % Normal 08-10 [facility] (15177) Comment: Performed By: #### Alla HILLS/ MICAELA #### [place] [address] [place] [address] Erythrocyte distribution 13.7 11.5-14.5 % Normal 08-26 [facility] width (RBC) [Ratio] (82939) Comment: Performed By: #### Alla HILLS/ MICAELA #### [facility] [place] [address] Granulocytes/100 WBC (Bld) 70.6 40.0-80.0 % Normal [facility] (44844) Comment: Performed By: #### Alla HILLS/ MICAELA #### [facility] [address] [place] Hematocrit (Bld) [Volume 24.2 35.0-47.0 % Low 08-26 [facility] System fraction] (06264) Comment: Performed By: #### Alla HILLS/ MICAELA #### [place] [address] [place] [address] Hemoglobin (Bld) [Mass/Vol] 8.5 11.7-16.0 g/dL Low [facility] (25374) Comment: Performed By: #### Alla HILLS/ MICAELA #### [facility] [address] [place] Lymphocytes (Bld) [#/Vol] 1.9 1.0-4.3 10*3/uL Normal 08-10 [facility] (60914) Comment: Performed By: #### REINIER C/ MICAELA #### [place] [address] [place] [address] Lymphocytes/100 WBC (Bld) 18.7 20.0-40.0 % Low 08-10 [facility] (64334) Comment: Performed By: #### REINIER C/ MICAELA #### [facility] [address], [place] MCH (RBC) [Entitic mass] 31.5 26.0-34.0 pg Normal 08-26 [facility] (15867) Comment: Performed By: #### REINIER C/ MICAELA #### [facility] [address], [place] MCHC (RBC) [Mass/Vol] 35.0 32.0-36.0 % Normal 08-27-19 20 [facility] (56150) Comment: Performed By: #### REINIER C/ MICAELA #### [place] [address] [place] MCV (RBC) [Entitic vol] 90.2 79.0-98.0 fL Normal 2019 [facility] (20940) Comment: Performed By: #### REINIER C/ MICAELA #### [place] [address] [place] Monocytes (Bld) [#/Vol] 0.7 0.0-0.8 10*3/uL Normal 2019 [facility] (84646) Comment: Performed By: #### REINIER C/ MICAELA #### [place] [address] [place] Monocytes/100 WBC (Bld) 6.9 2.0-10.0 % Normal 2019 [facility] (67744) Comment: Performed By: #### REINIER C/ MICAELA #### [facility] [address], [place] Platelet mean volume (Bld) 7.0 7.4-10.4 fL Low [facility] [Entitic vol] (91062 ) Comment: Performed By: #### REINIER C/ MICAELA #### [place] [address] [place], [place] Platelets (Bld) [#/Vol] 327 140-440 10*3/uL Normal 2019 [facility] (62211) Comment: Performed By: #### REINIER, C/ MICAELA #### [facility] [address], [place] RBC (Bld) [#/Vol] 2.69 3.80-5.20 10*6/uL Low 08-27-2019 [facility] (52826) Comment: Performed By: #### REINIER, C/ MICAELA #### [facility] [address], [place] WBC (Bld) [#/Vol] 10.4 3.6-10.7 10*3/uL Normal 08-27-2019 [facility] (57498) Comment: Performed By: #### REINIER, C/ MICAELA #### [place] [address], [place] basic metabolic panel on 2019-08-27 Calcium [Mass/Vol] 9.1 8.4-10.4 mg/dL Normal 08-27-2019 [facility] (95377) Comment: Performed By: #### REINIER C/ MICAELA #### [facility] [address], [place] Anion gap [Moles/Vol] 6 Normal 08-27-19 [facility] (71303) Comment: Performed By: #### REINIER, C/ MICAELA #### [facility] [address], [place] CO2 [Moles/Vol] 29 22-30 mmol/L Normal 08-27-2019 [facility] (50570) Comment: Performed By: #### REINIER, C/ MICAELA #### [facility] [address], [place] Creatinine [Mass/Vol] 0.70 0.52-1.25 mg/dL Normal 08-27-19 [facility] (74835) Comment: Performed By: #### REINIER, C/ MICAELA #### [facility] [address], [place] GFR/1.73 sq M > 60.0 >60 mL/min/{1.73_m2} Normal 0 [facility] among Syst em (19040) blacks MDRD (S/P/Bld) [Vol rate/Area] Comment: Performed By: #### Alla HILLS/ MICAELA #### [facility] [address] [place] [address] GFR/1.73 sq M > 60.0 >60 mL/min/{1.73_m2} Normal 0 [facility] predicted among Syst em (32527) non-blacks MDRD (S/P/Bld) [Vol rate/Area] Comment: Result Comment: Source- MDRD equation with creatinine calibration to IDMS(NKDEP) eGFR not recommended for nicolas g dose adjustment Performed By: #### Alla HILLS/ MICAELA #### [facility] [place] [address] [place] [address] Glucose [Mass/Vol] 92 70-100 mg/dL Normal 08-27-2019 [facility] (56609) Comment: Performed By: #### Alla HILLS/ MICAELA #### [facility] [place] [address] [place] [address] Urea nitrogen [Mass/Vol] 15 7-20 mg/dL Normal 08-26 [facility] (26156) Comment: Performed By: #### Alla HILLS/ MICAELA #### [facility] [place] [address] [place] [address] Chloride [Moles/Vol] 99 98-107 mmol/L Normal 0 [facility] (82363) Comment: Performed By: #### Alla HILLS/ MICAELA #### [facility] [place] [address] [place] [address] Potassium [Moles/Vol] 4.0 3.5-5.1 mmol/L Normal 08-27-19 20 [facility] (23537) Comment: Performed By: #### Alla HILLS/ MICAELA #### [facility] [address] [place] [address] Sodium [Moles/Vol] 134 135-145 mmol/L Low 08-27-2019 [facility] (97086) Comment: Performed By: #### Alla HILLS/ MICAELA #### [facility] [address] [address] [place] [address] No panel information on 2019-08-27 Anion gap [Moles/Vol] 6 mmol/L 08-27-19 20 [place] ([address]) Calcium [Mass/Vol] 9.1 8.4 - 10.4 mg/dL 08-27-2019 [place] ([address]) Chloride [Moles/Vol] 99 98 - 107 mmol/L 0 [place] ([address]) CO2 [Moles/Vol] 29 22 - 30 mmol/L 08-27-2019 [place] ([address]) Creatinine [Mass/Vol] 0.7 0.52 - 1.25 mg/dL 2019 [place] ([address]) EGFR IF NonAfrican >60.0 >60 mL/min 08-27-2019 [place] ([address]) Comment: Source- MDRD equation with c reatinine calibration to IDMS(NKDEP) eGFR not recommended for nicolas g dose adjustment GFR/1.73 sq M >60.0 >60 mL/min mL/min/{1.73_m2} 08-27-19 [address] [facility] [address] [facility], blacks MDRD SD (7041 7) (S/P/Bld) [Vol rate/Area] Glucose [Mass/Vol] 92 70 - 100 mg/dL 08-27-2019 [place], [place] ([address]) Interpretation and Abnormal 08-27-2019 [facility] review of [facility] , laboratory results K Y (71854) Potassium 4.0 3.5 - 5.1 mmol/L 08-27-2019 [facility] [Moles/Vol] [place] ([address]) Sodium [Moles/Vol] 134 135 - 145 mmol/L Low 08-27-2019 [place] ([address]) Urea nitrogen 15 7 - 20 mg/dL 08-27-2019 [facility] [Mass/Vol] [place] ([address]) Test 08-27-2019 [facility] Performed by [facility], [facility] (153 95) System, [address] [place] [address] Absolute Baso # 0.1 0 - 0.2 10*3/uL 08-27-2019 [place] ([address]) Absolute Neut # 7.3 1.8 - 7 10*3/uL High 08-27-2019 [place] ([address]) Basophils/100 WBC 0.7 0 - 2 % 08-27-2019 [facility] (Bld) [place] ([address]) Eosinophils (Bld) 0.3 0 - 0.5 10*3/uL 08-27-2019 [facility] [#/Vol] [place] ([address]) Eosinophils/100 3.1 1 - 6 % 08-27-2019 [facility] WBC (Bld) [place] ([address]) Erythrocyte 13.7 11.5 - % 08-27-2019 [facility] ([facility] [Ratio] SD (45 237) Granulocytes/100 70.6 40 - 80 % 08-27-2019 [facility] WBC (Bld) [place] ([address]) Hematocrit (Bld) 24.2 35 - 47 % Low 08-27-2019 [facility] [Volume fraction] [place] ([address]) Hemoglobin (Bld) 8.5 11.7 - 16 g/dL Low 08-27-2019 [facility] [Mass/Vol] [place] ([address]) Interpretation and Abnormal 08-27-2019 [facility] , laboratory results K Y (44190) Lymphocytes (Bld) 1.9 1 - 4.3 10*3/uL 08-27-2019 [facility] [#/Vol] [place] ([address]) Lymphocytes/100 18.7 20 - 40 % Low 08-27-2019 [facility] WBC (Bld) [place] ([address]) MCH (RBC) [Entitic 31.5 26 - 34 pg 08-27-2019 [facility] mass] [place] ([address]) MCHC (RBC) 35.0 32 - 36 % 08-27-2019 [facility] [Mass/Vol] [place] ([address]) MCV (RBC) [Entitic 90.2 79 - 98 fL 03-17-2020 [facility] vol] [place] ([address]) Monocytes (Bld) 0.7 0 - 0.8 10*3/uL 08-27-2019 [facility] [#/Vol] [place] ([address]) Monocytes/100 WBC 6.9 2 - 10 % 08-27-2019 [facility] (Bld) [place] ([address]) Platelet mean 7.0 7.4 - 10.4 fL Low 08-27-2019 [facility] volume (Bld) [facility], [Entitic vol] [place] (45 237) Platelets (Bld) 327 140 - 440 10*3/uL 08-27-2019 [facility] [#/Vol] [place] ([address]) RBC (Bld) [#/Vol] 2.69 3.8 - 5.2 10*6/uL Low 08-27-2019 [place] ([address]) WBC (Bld) [#/Vol] 10.4 3.6 - 10.7 10*3/uL 08-27-2019 [place] ([address]) Test 08-27-2019 [facility] Performed by [facility] (452 37) System, [facility] [place] [address] hemogram w/ autodiff on 2019-08-26 Abs Baso Cnt 0.1 0.0-0.2 10*3/uL Normal 08-26-2019 [facility] (84061) Comment: Performed By: #### REINIER C/ MICAELA #### [facility] [address] [place] [address] Abs Neutrophile Cnt 7.4 1.8-7.0 10*3/uL High 08-26-2019 [facility] (47530) Comment: Performed By: #### REINIER C/ MICAELA #### [facility] [address] [place] [address] Basophils/100 WBC (Bld) 0.6 0.0-2.0 % Normal 2019 [facility] (06983) Comment: Performed By: #### REINIER C/ MICAELA #### [facility] [address], [place] Eosinophils (Bld) [#/Vol] 0.4 0.0-0.5 10*3/uL Normal 08-10 [facility] (49571) Comment: Performed By: #### Alla HILLS/ MICAELA #### [place] [address], [place] Eosinophils/100 WBC (Bld) 3.4 1.0-6.0 % Normal 08-10 [facility] (04739) Comment: Performed By: #### Alla HILLS/ MICAELA #### [place] [address], [place] Erythrocyte distribution 14.1 11.5-14.5 % Normal 08-25 [facility] width (RBC) [Ratio] (58376) Comment: Performed By: #### Alla HILLS/ MICAELA #### [place] [address], [place] Granulocytes/100 WBC (Bld) 70.6 40.0-80.0 % Normal [facility] (15420) Comment: Performed By: #### Alla HILLS/ MICAELA #### [place] [address], [place] Hematocrit (Bld) [Volume 24.5 35.0-47.0 % Low 08-25 [facility] fraction] (64212) Comment: Performed By: #### Alla HILLS/ MICAELA #### [place] [address], [place] Hemoglobin (Bld) [Mass/Vol] 8.3 11.7-16.0 g/dL Low [facility] (06002) Comment: Performed By: #### Alla HILLS/ MICAELA #### [place] [address], [place] Lymphocytes (Bld) [#/Vol] 2.0 1.0-4.3 10*3/uL Normal 08-10 [facility] (75655) Comment: Performed By: #### Alla HILLS/ MICAELA #### [facility] [address] [place] [address] Lymphocytes/100 WBC (Bld) 19.3 20.0-40.0 % Low - [facility] (96991) Comment: Performed By: #### Alla HILLS/ MICAELA #### [place] [address], [place] MCH (RBC) [Entitic mass] 30.3 26.0-34.0 pg Normal 08-25 [facility] (82440) Comment: Performed By: #### REINIER C/ MICAELA #### [place] [address], [place] MCHC (RBC) [Mass/Vol] 33.8 32.0-36.0 % Normal 08-26-19 [facility] (34573) Comment: Performed By: #### REINIER C/ MICAELA #### [place] [address], [place] MCV (RBC) [Entitic vol] 89.8 79.0-98.0 fL Normal 2019 [facility] (92069) Comment: Performed By: #### Alla HILLS/ MICAELA #### [place] [address], [place] Monocytes (Bld) [#/Vol] 0.6 0.0-0.8 10*3/uL Normal 2019 [facility] (02726) Comment: Performed By: #### REINIER C/ MICAELA #### [place] [address], [place] Monocytes/100 WBC (Bld) 6.1 2.0-10.0 % Normal 2019 [facility] (21643) Comment: Performed By: #### REINIER C/ MICAELA #### [place] [address], [place] Platelet mean volume (Bld) 7.5 7.4-10.4 fL Normal [facility] [Entitic vol] (48315 ) Comment: Performed By: #### REINIER C/ MICAELA #### [facility] [address], [place] Platelets (Bld) [#/Vol] 311 140-440 10*3/uL Normal 2019 [facility] (57662) Comment: Performed By: #### REINIER C/ MICAELA #### [facility] [address], [place] RBC (Bld) [#/Vol] 2.73 3.80-5.20 10*6/uL Low 08-26-2019 [facility] (81224) Comment: Performed By: #### REINIER C/ MICAELA #### [facility] [address], [place] WBC (Bld) [#/Vol] 10.4 3.6-10.7 10*3/uL Normal 08-26-2019 [facility] (68096) Comment: Performed By: #### REINIER C/ MICAELA #### [place] [address], [place] basic metabolic panel on 2019-08-26 Calcium [Mass/Vol] 9.1 8.4-10.4 mg/dL Normal 08-26-2019 [facility] (81374) Comment: Performed By: #### REINIER C/ MICAELA #### [place] [address], [place] Glucose [Mass/Vol] 91 70-100 mg/dL Normal 08-26-2019 [facility] (33522) Comment: Performed By: #### REINIER C/ MICAELA #### [facility] [address], [place] Anion gap [Moles/Vol] 5 Normal 08-26-19 20 [facility] (96529) Comment: Performed By: #### REINIER C/ MICAELA #### [facility] [address], [place] CO2 [Moles/Vol] 29 22-30 mmol/L Normal 08-26-2019 [facility] (53658) Comment: Performed By: #### CXTIS, C/ MICAELA #### [facility] [address], [place] Creatinine [Mass/Vol] 0.66 0.52-1.25 mg/dL Normal 08-26-19 [facility] (60530) Comment: Performed By: #### Alla HILLS/ MICAELA #### [facility] [address], [place] GFR/1.73 sq M > 60.0 >60 mL/min/{1.73_m2} Normal 0 [facility] predicted among Syst em (53382) blacks MDRD (S/P/Bld) [Vol rate/Area] Comment: Performed By: #### Alla HILLS/ MICAELA #### [facility] [address], [place] GFR/1.73 sq M > 60.0 >60 mL/min/{1.73_m2} Normal 0 [facility] predicted among Syst em (64983) non-blacks MDRD (S/P/Bld) [Vol rate/Area] Comment: Result Comment: Source- MDRD equation with creatinine calibration to IDMS(NKDEP) eGFR not recommended for nicolas g dose adjustment Performed By: #### Alla HILLS/ MICAELA #### [facility] [address], [place] Urea nitrogen [Mass/Vol] 15 7-20 mg/dL Normal 08-25 [facility] (45924) Comment: Performed By: #### Alla HILLS/ MICAELA #### [facility] [address], [place] Chloride [Moles/Vol] 100 98-107 mmol/L Normal 0 [facility] (40553) Comment: Performed By: #### Alla HILLS/ MICAELA #### [facility] [address], [place] Potassium [Moles/Vol] 4.0 3.5-5.1 mmol/L Normal 08-26-19 20 [facility] (96887) Comment: Performed By: #### Alla HILLS/ MICAELA #### [facility] [address] [place] [address] Sodium [Moles/Vol] 134 135-145 mmol/L Low 08-26-2019 [facility] (97908) Comment: Performed By: #### Alla HILLS/ MICAELA #### [facility] [address] [place] [address] No panel information on 2019-08-26 Interpretation and review Abnormal 08-10 [place] of laboratory results ([address]) Vancomycin Tr 12.4 15 - 20 ug/mL Low 08-26-2019 [place] ([address]) Comment: . Test Performed by 08-26-2019 [place] ([address]) [facility], [address] [place] [address] Anion gap 5 mmol/L 08-26-2019 [facility] [Moles/Vol] [place] ( [address]) Calcium [Mass/Vol] 9.1 8.4 - 10.4 mg/dL 08-26-2019 [place] (01 302) Chloride 100 98 - 107 mmol/L 08-26-2019 [facility] [Moles/Vol] [place] ( [address]) CO2 [Moles/Vol] 29 22 - 30 mmol/L 08-26-2019 [place], [place] (48 [address]) Creatinine 0.66 0.52 - 1.25 mg/dL 08-26-2019 [facility] [Mass/Vol] [place], [place] (4 [address]122) EGFR IF NonAfrican >60.0 >60 mL/min 08-26-2019 [place] (48 [address]) Comment: Source- MDRD equation with c reatinine calibration to IDMS(NKDEP) eGFR not recommended for nicolas g dose adjustment GFR/1.73 sq M >60.0 >60 mL/min mL/min/{1.73_m2} 08-26-19 20 [facility] predicted among [facility] [place] MDRD [place] (5747 7) (S/P/Bld) [Vol rate/Area] Glucose [Mass/Vol] 91 70 - 100 mg/dL 08-26-2019 [place] ([address]) Interpretation and Abnormal 08-26-2019 [facility] review of [facility] , laboratory results K Y (14562) Potassium 4.0 3.5 - 5.1 mmol/L 08-26-2019 [facility] [Moles/Vol] [place] ([address]) Sodium [Moles/Vol] 134 135 - 145 mmol/L Low 08-26-2019 [place] ([address]) Urea nitrogen 15 7 - 20 mg/dL 08-26-2019 [facility] [Mass/Vol] [facility] ([address]) Test 08-26-2019 [facility] Performed by [facility] (540 06) [facility], [address] [place] [address] Absolute Baso # 0.1 0 - 0.2 10*3/uL 08-26-2019 [place] ([address]) Absolute Neut # 7.4 1.8 - 7 10*3/uL High 08-26-2019 [place] ([address]) Basophils/100 WBC 0.6 0 - 2 % 08-26-2019 [facility] (Bld) [place] ([address]) Eosinophils (Bld) 0.4 0 - 0.5 10*3/uL 08-26-2019 [facility] [#/Vol] [place] ([address]) Eosinophils/100 3.4 1 - 6 % 08-26-2019 [facility] WBC (Bld) [place] ([address]) Erythrocyte 14.1 11.5 - % 08-26-2019 [facility] distribution width [facility].5 [facility] (RBC) [Ratio] [place] (45 237) Granulocytes/100 70.6 40 - 80 % 08-26-2019 [facility] WBC (Bld) [place] ([address]) Hematocrit (Bld) 24.5 35 - 47 % Low 08-26-2019 [facility] [Volume fraction] [place] ([address]) Hemoglobin (Bld) 8.3 11.7 - 16 g/dL Low 08-26-2019 [facility] [Mass/Vol] [place] ([address]) Interpretation and Abnormal 08-26-2019 [facility] review of [facility] , laboratory results K Y (04746) Lymphocytes (Bld) 2.0 1 - 4.3 10*3/uL 08-26-2019 [facility] [#/Vol] [place] ([address]) Lymphocytes/100 19.3 20 - 40 % Low 08-26-2019 [facility] WBC (Bld) [place] ([address]) MCH (RBC) [Entitic 30.3 26 - 34 pg 08-26-2019 [facility] mass] [place] ([address]) MCHC (RBC) 33.8 32 - 36 % 08-26-2019 [facility] [Mass/Vol] [place] ([address]) MCV (RBC) [Entitic 89.8 79 - 98 fL 08-26-2019 [facility] vol] [place] ([address]) Monocytes (Bld) 0.6 0 - 0.8 10*3/uL 08-26-2019 [facility] [#/Vol] [place] ([address]) Monocytes/100 WBC 6.1 2 - 10 % 08-26-2019 [facility] (Bld) [place] ([address]) Platelet mean 7.5 7.4 - 10.4 fL 08-26-2019 [facility] volume (Bld) [facility], [Entitic vol] [place] (45 237) Platelets (Bld) 311 140 - 440 10*3/uL 08-26-2019 [facility] [#/Vol] [place] ([address]) RBC (Bld) [#/Vol] 2.73 3.8 - 5.2 10*6/uL Low 08-26-2019 [place] ([address]) WBC (Bld) [#/Vol] 10.4 3.6 - 10.7 10*3/uL 08-26-2019 [place] ([address]) Test 08-26-2019 [facility] Performed by [facility] (452 37) [facility], [facility] [place] [address] hemogram w/ autodiff on 2019-08-25 Abs Baso Cnt 0.1 0.0-0.2 10*3/uL Normal 08-25-2019 [facility] (68165) Comment: Performed By: #### CXTIS, C/ MICAELA #### [facility] [address], [place] Abs Neutrophile Cnt 5.5 1.8-7.0 10*3/uL Normal 08-25-2019 [facility] (25540) Comment: Performed By: #### Alla HILLS/ MICAELA #### [place] [address], [place] Basophils/100 WBC (Bld) 0.9 0.0-2.0 % Normal 2019 [facility] (49718) Comment: Performed By: #### REINIER C/ MICAELA #### [place] [address], [place] Eosinophils (Bld) [#/Vol] 0.1 0.0-0.5 10*3/uL Normal 08-10 [facility] (85469) Comment: Performed By: #### Alla HILLS/ MICAELA #### [place] [address], [place] Eosinophils/100 WBC (Bld) 1.7 1.0-6.0 % Normal 08-10 [facility] (31015) Comment: Performed By: #### Alla HILLS/ MICAELA #### [place] [address], [place] Erythrocyte distribution 14.0 11.5-14.5 % Normal 08-24 [facility] width (RBC) [Ratio] (18816) Comment: Performed By: #### Alla HILLS/ MICAELA #### [place] [address], [place] Granulocytes/100 WBC (Bld) 65.3 40.0-80.0 % Normal [facility] (21602) Comment: Performed By: #### Alla HILLS/ MICAELA #### [place] [address], [place] Hematocrit (Bld) [Volume 22.9 35.0-47.0 % Low 08-24 [facility] fraction] (40807) Comment: Performed By: #### Alla HILLS/ MICAELA #### [place] [address], [place] Hemoglobin (Bld) [Mass/Vol] 7.8 11.7-16.0 g/dL Low [facility] (79695) Comment: Performed By: #### Alla HILLS/ MICAELA #### [place] [address], [place] Lymphocytes (Bld) [#/Vol] 2.1 1.0-4.3 10*3/uL Normal 08-10 [facility] (17951) Comment: Performed By: #### Alla HILLS/ MICAELA #### [place] [address], [place] Lymphocytes/100 WBC (Bld) 25.1 20.0-40.0 % Normal 08-10 [facility] (90741) Comment: Performed By: #### Alla HILLS/ MICAELA #### [place] [address], [place] MCH (RBC) [Entitic mass] 30.9 26.0-34.0 pg Normal 08-24 [facility] (59112) Comment: Performed By: #### Alla HILLS/ MICAELA #### [place] [address], [place] MCHC (RBC) [Mass/Vol] 34.2 32.0-36.0 % Normal 08-25-19 [facility] (00317) Comment: Performed By: #### Alla HILLS/ MICAELA #### [place] [address] [place], [place] MCV (RBC) [Entitic vol] 90.5 79.0-98.0 fL Normal 2019 [facility] (15853) Comment: Performed By: #### REINIER C/ MICAELA #### [place] [address] [place], [place] Monocytes (Bld) [#/Vol] 0.6 0.0-0.8 10*3/uL Normal 2019 [facility] (26894) Comment: Performed By: #### REINIER C/ MICAELA #### [facility] [address], [place] Monocytes/100 WBC (Bld) 7.0 2.0-10.0 % Normal 2019 [facility] (61647) Comment: Performed By: #### REINIER C/ MICAELA #### [facility] [address], [place] Platelet mean volume (Bld) 7.9 7.4-10.4 fL Normal [facility] [Entitic vol] (29822 ) Comment: Performed By: #### REINIER C/ MICAELA #### [facility] [address], [place] Platelets (Bld) [#/Vol] 287 140-440 10*3/uL Normal 2019 [facility] (14282) Comment: Performed By: #### REINIER C/ MICAELA #### [facility] [place] [address] [address], [place] RBC (Bld) [#/Vol] 2.53 3.80-5.20 10*6/uL Low 08-25-2019 [facility] (44868) Comment: Performed By: #### REINIER C/ MICAELA #### [place] [address] [address], [place] WBC (Bld) [#/Vol] 8.4 3.6-10.7 10*3/uL Normal 08-25-2019 [facility] (95953) Comment: Performed By: #### REINIER C/ MICAELA #### [facility] [address], [place] basic metabolic panel on 2019-08-25 Anion gap [Moles/Vol] 4 Normal 08-25-19 20 [facility] (68836) Comment: Performed By: #### REINIER C/ MICAELA #### [facility] [address], [place] Calcium [Mass/Vol] 8.5 8.4-10.4 mg/dL Normal 08-25-2019 [facility] (56025) Comment: Performed By: #### REINIER C/ MICAELA #### [facility] [address], [place] CO2 [Moles/Vol] 28 22-30 mmol/L Normal 08-25-2019 [facility] (24494) Comment: Performed By: #### REINIER C/ MICAELA #### [facility] [address], [place] Glucose [Mass/Vol] 92 70-100 mg/dL Normal 08-25-2019 [facility] (00471) Comment: Performed By: #### REINIER C/ MICAELA #### [facility] [address], [place] Urea nitrogen [Mass/Vol] 22 7-20 mg/dL High 08-24 [facility] (61137) Comment: Performed By: #### REINIER C/ MICAELA #### [facility] [address], [place] Creatinine [Mass/Vol] 0.75 0.52-1.25 mg/dL Normal 08-25-[address] [place] [address] ([address]) Comment: Performed By: #### REINIER C/ MICAELA #### [facility] [address], [place] GFR/1.73 sq M > 60.0 >60 mL/min/{1.73_m2} Normal 0 [facility] predicted among Syst em (36238) blacks MDRD (S/P/Bld) [Vol rate/Area] Comment: Performed By: #### REINIER C/ MICAELA #### [facility] [address], [place] GFR/1.73 sq M > 60.0 >60 mL/min/{1.73_m2} Normal 0 [facility] predicted among Syst em (63899) non-blacks MDRD (S/P/Bld) [Vol rate/Area] Comment: Result Comment: Source- MDRD equation with creatinine calibration to IDMS(NKDEP) eGFR not recommended for nicolas g dose adjustment Performed By: #### REINIER C/ MICAELA #### [facility] [address], [place] Potassium [Moles/Vol] 3.7 3.5-5.1 mmol/L Normal 08-25-19 20 [facility] (31024) Comment: Performed By: #### REINIER C/ MICAELA #### [facility] [address], [place] Sodium [Moles/Vol] 134 135-145 mmol/L Low 08-25-2019 [facility] ([id number]) Comment: Performed By: #### REINIER C/ MICAELA #### [facility] [address], [place] Chloride [Moles/Vol] 101 98-107 mmol/L Normal 0 [facility] ([id number]) Comment: Performed By: #### REINIER C/ MICAELA #### [facility] [address], [place] No panel information on 2019-08-25 Anion gap [Moles/Vol] 4 mmol/L 08-25-19 20 [place] ([id number]) Calcium [Mass/Vol] 8.5 8.4 - 10.4 mg/dL 08-25-2019 [place] ([id number]) Chloride [Moles/Vol] 101 98 - 107 mmol/L 0 [place] ([address]) CO2 [Moles/Vol] 28 22 - 30 mmol/L 08-25-2019 [place], [place] ([id number]) Creatinine [Mass/Vol] 0.75 0.52 - 1.25 mg/dL 2019 [place] ([address]) EGFR IF NonAfrican >60.0 >60 mL/min 08-25-2019 [place] ([address]) Comment: Source- MDRD equation with c reatinine calibration to IDMS(NKDEP) eGFR not recommended for nicolas g dose adjustment GFR/1.73 sq M >60.0 >60 mL/min mL/min/{1.73_m2} 03-15-20 20 [facility] predicted among [place] - [place], blacks MDRD SD (4523 7) (S/P/Bld) [Vol rate/Area] Glucose [Mass/Vol] 92 70 - 100 mg/dL 08-25-2019 [place] [place] ([address]) Interpretation and Abnormal 08-25-2019 [facility] review of [facility] , laboratory results [place] ([address]) Potassium 3.7 3.5 - 5.1 mmol/L 08-25-2019 [facility] [Moles/Vol] [place] ([address]) Sodium [Moles/Vol] 134 135 - 145 mmol/L Low 08-25-2019 [place] [place] ([address]) Urea nitrogen 22 7 - 20 mg/dL High 08-25-2019 [facility] [Mass/Vol] [place] ([address]) Test 08-25-2019 [facility] Performed by [facility] (781 37) [facility], [address] [place] [address] Absolute Baso # 0.1 0 - 0.2 10*3/uL 08-25-2019 [place] ([address]) Absolute Neut # 5.5 1.8 - 7 10*3/uL 08-25-2019 [place] ([address]) Basophils/100 WBC 0.9 0 - 2 % 08-25-2019 [facility] (Bld) [place] ([address]) Eosinophils (Bld) 0.1 0 - 0.5 10*3/uL 08-25-2019 [facility] [#/Vol] [place] ([address]) Eosinophils/100 1.7 1 - 6 % 08-25-2019 D[facility] cy WBC (Bld) [place] ([address]) Erythrocyte 14.0 11.5 - % 08-25-2019 [facility] ([facility] [Ratio] [place] (45 237) Granulocytes/100 65.3 40 - 80 % 08-25-2019 [facility] WBC (Bld) [place] ([address]) Hematocrit (Bld) 22.9 35 - 47 % Low 08-25-2019 [facility] [Volume fraction] [place] ([address]) Hemoglobin (Bld) 7.8 11.7 - 16 g/dL Low 08-25-2019 [facility] [Mass/Vol] [place] ([address]) Interpretation and Abnormal 08-25-2019 [facility] review of [facility] , laboratory results K Y (39108) Lymphocytes (Bld) 2.1 1 - 4.3 10*3/uL 08-25-2019 [facility] [#/Vol] [place] ([address]) Lymphocytes/100 25.1 20 - 40 % 08-25-2019 [place] WBC (Bld) [place] ([address]) MCH (RBC) [Entitic 30.9 26 - 34 pg 08-25-2019 [facility] mass] [place] ([address]) MCHC (RBC) 34.2 32 - 36 % 08-25-2019 [facility] [Mass/Vol] [place] ([address]) MCV (RBC) [Entitic 90.5 79 - 98 fL 08-25-2019 [facility] vol] [place] ([address]) Monocytes (Bld) 0.6 0 - 0.8 10*3/uL 08-25-2019 Dora cy [#/Vol] [place] ([address]) Monocytes/100 WBC 7.0 2 - 10 % 08-25-2019 [facility] (Bld) [place] ([address]) Platelet mean 7.9 7.4 - 10.4 fL 08-25-2019 [facility] y volume (Bld) [facility], [Entitic vol] [place] (45 237) Platelets (Bld) 287 140 - 440 10*3/uL 08-25-2019 Dora cy [#/Vol] [place] ([address]) RBC (Bld) [#/Vol] 2.53 3.8 - 5.2 10*6/uL Low 08-25-2019 [place] ([address]) WBC (Bld) [#/Vol] 8.4 3.6 - 10.7 10*3/uL 08-25-2019 [place] ([address]) Test 08-25-2019 [facility] Performed by [facility] (497 37) [address] [address] op note on Op Note PATIENT: DENYS ARRIOLA Normal 2019 [facility] ([id number]) ADMISSION DATE: 08/14/2019 SURGERY DATE: 08/24/2019 DATE [...] stable condition without complication. Diskriter Job ID: [id number] Deon Davila MD DOD:08/24/2019 11:31 A EM/dsk DOT:08/24/2019 12:13 P Job Number: [id number] Document Number: [id number] cc: Deon Davila MD [address] [place] [address] [place] [address] hemogram w/ autodiff on 2019-08-24 Abs Baso Cnt 0.0 0.0-0.2 10*3/uL Normal 08-24-2019 [facility] (65499) Comment: Performed By: #### CXTIS ### # [address] [place] [address] [address] [place] [place] [facility] [place], [place] #### C/MICAELA #### [address] [address] [place], [place] Abs Neutrophile Cnt 12.0 1.8-7.0 10*3/uL High 08-24-2019 [facility] (01677) Comment: Performed By: #### CXTIS ### # [address] [address] [address] [place] [facility] [place], [place] #### C/MICAELA #### [address] Basophils/100 WBC (Bld) 0.1 0.0-2.0 % Normal 2019 [facility] (87692) Comment: Performed By: #### CXTIS ### # [address] [place] [facility] [place] #### C/MICAELA #### [address] Eosinophils (Bld) [#/Vol] 0.0 0.0-0.5 10*3/uL Normal 08-10 [facility] (77510) Comment: Performed By: #### CXTIS ### # [facility] [address] [place] [facility] [address] [place] #### C/MICAELA #### [facility] [address] [place], [place] Eosinophils/100 WBC (Bld) 0.3 1.0-6.0 % Low 08-10 [facility] (09115) Comment: Performed By: #### CXTIS ### # [facility] [place] [place] [facility] [place] #### C/MICAELA #### [facility] [place] [place] Erythrocyte distribution 13.5 11.5-14.5 % Normal 08-23 [facility] width (RBC) [Ratio] (48091) Comment: Performed By: #### CXTIS ### # [facility] [address] [facility] [address] [place] #### C/MICAELA #### [facility] [address] [place] Granulocytes/100 WBC (Bld) 92.5 40.0-80.0 % High [facility] (45012) Comment: Performed By: #### CXTIS ### # [facility] [address] [place] [facility] [address] [place] #### C/MICAELA #### [facility] [address] [place] Hematocrit (Bld) [Volume 25.8 35.0-47.0 % Low 08-23 [facility] fraction] (80758) Comment: Performed By: #### CXTIS ### # [facility] [address] [place] [facility] [address] [place] #### C/MICAELA #### [facility] [address] [place] Hemoglobin (Bld) [Mass/Vol] 8.9 11.7-16.0 g/dL Low [facility] (52298) Comment: Performed By: #### CXTIS ### # [facility] [place] [facility] [place] #### C/MICAELA #### [facility] [address] [place] Lymphocytes (Bld) [#/Vol] 0.6 1.0-4.3 10*3/uL Low 08-10 [facility] (43276) Comment: Performed By: #### CXTIS ### # [facility] [place] [place] [facility] [place] #### C/MICAELA #### [facility] [place] [place] Lymphocytes/100 WBC (Bld) 4.6 20.0-40.0 % Low 08-10 [facility] (46794) Comment: Performed By: #### CXTIS ### # [facility] [place] [place] [facility] [address] [place] #### C/MICAELA #### [facility] [address] [place] MCH (RBC) [Entitic mass] 30.8 26.0-34.0 pg Normal 08-23 [facility] (63536) Comment: Performed By: #### CXTIS ### # [facility] [address] [place] [facility] [address] [place] #### C/MICAELA #### [facility] [address] [place] MCHC (RBC) [Mass/Vol] 34.5 32.0-36.0 % Normal 08-24-19 20 [facility] (84958) Comment: Performed By: #### CXTIS ### # [facility] [place] [place] [facility] [address] [place] #### C/MICAELA #### [facility] [address] [place] MCV (RBC) [Entitic vol] 89.2 79.0-98.0 fL Normal 2019 [facility] (00518) Comment: Performed By: #### CXTIS ### # [facility] [place] [facility] [address] [place] #### C/MICAELA #### [facility] [address] [place] Monocytes (Bld) [#/Vol] 0.3 0.0-0.8 10*3/uL Normal 2019 [facility] (13810) Comment: Performed By: #### CXTIS ### # [facility] [place] [place] [facility] [address] [place] #### C/MICAELA #### [facility] [address] [place] Monocytes/100 WBC (Bld) 2.5 2.0-10.0 % Normal 2019 [facility] (77373) Comment: Performed By: #### CXTIS ### # [facility] [place] [place] [facility] [address] [place] #### C/MICAELA #### [facility] [address] [place] Platelet mean volume (Bld) 7.1 7.4-10.4 fL Low [facility] [Entitic vol] (74778 ) Comment: Performed By: #### CXTIS ### # [facility] [address] [place] [facility] [address] [place] #### C/MICAELA #### [facility] [address] [place] Platelets (Bld) [#/Vol] 327 140-440 10*3/uL Normal 2019 [facility] (28295) Comment: Performed By: #### CXTIS ### # [facility] [address] [place] [facility] [address] [place] #### C/MICAELA #### [facility] [address] [place] RBC (Bld) [#/Vol] 2.90 3.80-5.20 10*6/uL Low 08-24-2019 [facility] (25768) Comment: Performed By: #### CXTIS ### # [facility] [place] [place] [facility] [address] [place] #### C/MICAELA #### [facility] [address] [facility], [place] WBC (Bld) [#/Vol] 13.0 3.6-10.7 10*3/uL High 08-24-2019 [facility] (19877) Comment: Performed By: #### CXTIS ### # [facility] [address] [place] [facility] [address] [facility], [place] #### C/MICAELA #### [facility] [address] [facility], [place] basic metabolic panel on 2019-08-24 Calcium [Mass/Vol] 9.3 8.4-10.4 mg/dL Normal 08-24-2019 [facility] (88914) Comment: Performed By: #### CXTIS ### # [facility] [address] [place] [facility] [address] [place] #### C/MICAELA #### [facility] [address] [place] Anion gap [Moles/Vol] 6 Normal 08-24-19 [facility] (98327) Comment: Performed By: #### CXTIS ### # [facility] [address] [place] [facility] [address] [place] #### C/MICAELA #### [facility] [address] [place], [place] CO2 [Moles/Vol] 27 22-30 mmol/L Normal 08-24-2019 [facility] (94976) Comment: Performed By: #### CXTIS ### # [facility] [address] [place] [facility] [address] [facility], [place] #### C/MICAELA #### [facility] [address] [place] Creatinine [Mass/Vol] 0.64 0.52-1.25 mg/dL Normal 08-24-19 [facility] (27822) Comment: Performed By: #### CXTIS ### # [facility] [address] [facility], [place] [facility] [address] [facility], [place] #### C/MICAELA #### [facility] [address] [facility], [place] GFR/1.73 sq M > 60.0 >60 mL/min/{1.73_m2} Normal 0 [facility] predicted among [place] (89771) blacks MDRD (S/P/Bld) [Vol rate/Area] Comment: Performed By: #### CXTIS ### # [facility] [address] [place] [facility] [address] [place] #### C/MICAELA #### [facility] [address] [place] GFR/1.73 sq M > 60.0 >60 mL/min/{1.73_m2} Normal 0 [facility] predicted among Syst em (74406) non-blacks MDRD (S/P/Bld) [Vol rate/Area] Comment: Result Comment: Source- MDRD equation with creatinine calibration to IDMS(NKDEP) eGFR not recommended for nicolas g dose adjustment Performed By: #### CXTIS ### # [facility] [address] [place] [facility] [address] [place] #### C/MICAELA #### [facility] [address] [place], [place] Glucose [Mass/Vol] 115 70-100 mg/dL High 08-24-2019 [facility] (31104) Comment: Performed By: #### CXTIS ### # [facility] [address] [place] [facility] [address] [place] #### C/MICAELA #### [facility] [address] [place] Urea nitrogen [Mass/Vol] 16 7-20 mg/dL Normal 08-23 [facility] (39019) Comment: Performed By: #### CXTIS ### # [facility] [address] [place] [facility] [address] [place] #### C/MICAELA #### [facility] [address] [place] Chloride [Moles/Vol] 99 98-107 mmol/L Normal 0 [facility] (71853) Comment: Performed By: #### CXTIS ### # [facility] [address] [place] [facility] [address] [place] #### C/MICAELA #### [facility] [address] [place] Potassium [Moles/Vol] 4.5 3.5-5.1 mmol/L Normal 08-24-19 20 [facility] (21615) Comment: Performed By: #### CXTIS ### # [facility] [address] [place] [facility] [address] [place] #### C/MICAELA #### [facility] [address] [place], [place] Sodium [Moles/Vol] 132 135-145 mmol/L Low 08-24-2019 [facility] (39753) Comment: Performed By: #### CXTIS ### # [facility] [address] [place] [facility] [address] [place] #### C/MICAELA #### [facility] [address] [place] No panel information on 2019-08-24 Anion gap [Moles/Vol] 6 mmol/L 08-24-19 20 [facility] [place] ([address]) Calcium [Mass/Vol] 9.3 8.4 - 10.4 mg/dL 08-24-2019 [place] ([address]) Chloride [Moles/Vol] 99 98 - 107 mmol/L 0 [facility] [place] ([address]) CO2 [Moles/Vol] 27 22 - 30 mmol/L 08-24-2019 [facility] [place] ([address]) Creatinine [Mass/Vol] 0.64 0.52 - 1.25 mg/dL 2019 [place] ([address]) EGFR IF NonAfrican >60.0 >60 mL/min 08-24-2019 [place] ([address]) Comment: Source- MDRD equation with c reatinine calibration to IDMS(NKDEP) eGFR not recommended for nicolas g dose adjustment GFR/1.73 sq M >60.0 >60 mL/min mL/min/{1.73_m2} 08-24-19 20 [facility] predicted among [place] - [place], blacks MDRD SD (4223 7) (S/P/Bld) [Vol rate/Area] Glucose [Mass/Vol] 115 70 - 100 mg/dL High 08-24-2019 [place], [place] ([address]) Interpretation and Abnormal 08-24-2019 [facility] review of [facility] , laboratory results K Y (53518) Potassium 4.5 3.5 - 5.1 mmol/L 08-24-2019 [facility] [Moles/Vol] [place] ([address]) Sodium [Moles/Vol] 132 135 - 145 mmol/L Low 08-24-2019 [place] ([address]) Urea nitrogen 16 7 - 20 mg/dL 08-24-2019 [facility] [Mass/Vol] [place] ([address]) Test 08-24-2019 [facility] Performed by [facility] (127 37) [facility], [address] [place] [address] Absolute Baso # 0.0 0 - 0.2 10*3/uL 08-24-2019 [place] ([address]) Absolute Neut # 12.0 1.8 - 7 10*3/uL High 08-24-2019 [place] ([address]) Basophils/100 WBC 0.1 0 - 2 % 08-24-2019 [facility] (Bld) [place] ([address]) Eosinophils (Bld) 0.0 0 - 0.5 10*3/uL 08-24-2019 [facility] [#/Vol] [place] ([address]) Eosinophils/100 0.3 1 - 6 % Low 08-24-2019 [facility] WBC (Bld) [place] ([address]) Erythrocyte 13.5 11.5 - % 08-24-2019 [facility] (RBC[facility] [Ratio] [place] (45 237) Granulocytes/100 92.5 40 - 80 % High 08-24-2019 [facility] WBC (Bld) [place] ([address]) Hematocrit (Bld) 25.8 35 - 47 % Low 08-24-2019 [facility] [Volume fraction] [place] ([address]) Hemoglobin (Bld) 8.9 11.7 - 16 g/dL Low 08-24-2019 [facility] [Mass/Vol] [place] ([address]) Interpretation and Abnormal 08-24-2019 [facility] , laboratory results K Y (89803) Lymphocytes (Bld) 0.6 1 - 4.3 10*3/uL Low 08-24-2019 [facility] [#/Vol] [place] ([address]) Lymphocytes/100 4.6 20 - 40 % Low 08-24-2019 Dora cy WBC (Bld) [place] ([address]) MCH (RBC) [Entitic 30.8 26 - 34 pg 08-24-2019 [facility] mass] [place] ([address]) MCHC (RBC) 34.5 32 - 36 % 08-24-2019 [facility] [Mass/Vol] [facility] [place] (29450) MCV (RBC) [Entitic 89.2 79 - 98 fL 08-24-2019 [facility] vol] [place] ([address]) Monocytes (Bld) 0.3 0 - 0.8 10*3/uL 08-24-2019 Dora cy [#/Vol] [place] ([address]) Monocytes/100 WBC 2.5 2 - 10 % 08-24-2019 [facility] (Bld) [place] ([address]) Platelet mean 7.1 7.4 - 10.4 fL Low 08-24-2019 [facility] volume (Bld) [facility], [Entitic vol] [place] (45 237) Platelets (Bld) 327 140 - 440 10*3/uL 08-24-2019 Dora cy [#/Vol] [place] ([address]) RBC (Bld) [#/Vol] 2.90 3.8 - 5.2 10*6/uL Low 08-24-2019 [place] ([address]) WBC (Bld) [#/Vol] 13.0 3.6 - 10.7 10*3/uL High 08-24-2019 [place] ([address]) Test 08-24-2019 [facility] Performed by [facility] (452 37) System, [address] [place] [address] vancomycin trough o n 2019-08-23 Vancomycin Trough 13.6 15.0-20.0 ug/mL Low 08-23-2019 [facility] (19044) Comment: Result Comment: . Performed By: #### CXTIS ### # [facility] [address] [place] [address] [facility] [address] [place], [place] [id number] #### C/MICAELA #### [address] [address] [place] [address] ts gel on 2019-08-11 3 TS GEL ABO Group: Normal 08-23-2019 [facility] (30267) B Rh, Gel: POS Antibody Screen Gel: NEG Comment: Performed By: #### CXTIS ### # [facility] [address] [place] [address] [facility] [address] [place], [place] [id number] #### C/MICAELA #### [address] [address] [place] [address] op note on Op Note [facility] Normal 08-10 [facility] (71655) [address] [facility] [address] Dept: [phone] Loc: [phone] Operative Report Patient Name: Denys Arriola Date of : 1985 Date of Surgery: 08/23/19 Location: [facility] Preoperative Diagnosis: 1. Osteoarthritis infected hardware [...] patient's ASA was verified by the nurse cis coordinator and the anesthesia staff. Fire risk was assessed. The left lower extremity fla p had an audible Doppler signal at the skin paddle. A 4 cm diameter [place] around the Doppler signal was made an d the flap was defatted of both deep suprafascial and superficial fat leavi ng 5 mm of subcutaneous fat on the skin portion.Deep to the fat t he wound was copiously irrigated out. The previously placed [place] drain was rem luis m. The Doppler [...] Baso Cnt 0.0 0.0-0.2 10*3/uL Normal 08-23-2019 [facility] (44698) Comment: Performed By: #### CXTIS ### # [facility] [place] [address] [address] [place] [facility] [place] #### C/MICAELA #### [address] [address] [place], [place] Abs Neutrophile Cnt 5.4 1.8-7.0 10*3/uL Normal 08-23-2019 [facility] (67655) Comment: Performed By: #### CXTIS ### # [facility] [address] [place] [facility] [place] #### C/MICAELA #### [address] Basophils/100 WBC (Bld) 0.3 0.0-2.0 % Normal 2019 [facility] (51915) Comment: Performed By: #### CXTIS ### # [facility] [address] [place] [facility] [address] [place] #### C/MICAELA #### [facility] [address] [place] Eosinophils (Bld) [#/Vol] 0.3 0.0-0.5 10*3/uL Normal 08-10 [facility] (47518) Comment: Performed By: #### CXTIS ### # [facility] [address] [place] [facility] [address] [place] #### C/MICAELA #### [facility] [address] [place] Eosinophils/100 WBC (Bld) 3.8 1.0-6.0 % Normal 08-10 [facility] (05674) Comment: Performed By: #### CXTIS ### # [facility] [address] [place] [facility] [address] [place] #### C/MICAELA #### [facility] [address] [place] Erythrocyte distribution 13.5 11.5-14.5 % Normal 08-22 [facility] width (RBC) [Ratio] (15933) Comment: Performed By: #### CXTIS ### # [facility] [address] [place] [facility] [address] [place] #### C/MICAELA #### [facility] [address] [place] Granulocytes/100 WBC (Bld) 68.3 40.0-80.0 % Normal [facility] (95496) Comment: Performed By: #### CXTIS ### # [facility] [address] [place] [facility] [address] [place] #### C/MICAELA #### [facility] [address] [place] Hematocrit (Bld) [Volume 27.7 35.0-47.0 % Low 08-22 [facility] System fraction] (68816) Comment: Performed By: #### CXTIS ### # [facility] [address] [place] [facility] [address] [place] #### C/MICAELA #### [facility] [address] [place] Hemoglobin (Bld) [Mass/Vol] 9.7 11.7-16.0 g/dL Low [facility] (12457) Comment: Performed By: #### CXTIS ### # [facility] [address] [place] [facility] [address] [place] #### C/MICAELA #### [facility] [address] [place] Lymphocytes (Bld) [#/Vol] 1.6 1.0-4.3 10*3/uL Normal 08-10 [facility] (79602) Comment: Performed By: #### CXTIS ### # [facility] [address] [place] [facility] [address] [place] #### C/MICAELA #### [facility] [address] [place] Lymphocytes/100 WBC (Bld) 19.8 20.0-40.0 % Low 08-10 [facility] (33460) Comment: Performed By: #### CXTIS ### # [facility] [address] [place] [facility] [address] [place] #### C/MICAELA #### [facility] [address] [place] MCH (RBC) [Entitic mass] 30.9 26.0-34.0 pg Normal 08-22 [facility] (46140) Comment: Performed By: #### CXTIS ### # [facility] Center System [facility] [place] [facility] [place] #### C/MICAELA #### [place] [address] [place] [place], [place] MCHC (RBC) [Mass/Vol] 34.9 32.0-36.0 % Normal 08-23-19 20 [facility] ([id number]) Comment: Performed By: #### CXTIS ### # [place] [address] [place] [facility]alt System [facility] [place] #### C/MICAELA #### [place] [address] [place] [place] MCV (RBC) [Entitic vol] 88.7 79.0-98.0 fL Normal 2019 [facility] ([id number]) Comment: Performed By: #### CXTIS ### # [facility] System [facility] [place] [facility]alt System [facility] [place] #### C/MICAELA #### [place] [address] [place] [place], [place] Monocytes (Bld) [#/Vol] 0.6 0.0-0.8 10*3/uL Normal 2019 [facility] ([id number]) Comment: Performed By: #### CXTIS ### # [place] [address] [place] [facility]alt System [facility] [place] #### C/MICAELA #### [place] [address] [place] Monocytes/100 WBC (Bld) 7.8 2.0-10.0 % Normal 2019 [facility] (81789) Comment: Performed By: #### CXTIS ### # [facility] [address] [place] [place] [facility] [address] [place] #### C/MICAELA #### [facility] [address] [place] Platelet mean volume (Bld) 7.2 7.4-10.4 fL Low [facility] [Entitic vol] ([id number] ) Comment: Performed By: #### CXTIS ### # [facility] [address] [place] [facility] [address] [place] #### C/MICAELA #### [facility] [address] [place], [place] Platelets (Bld) [#/Vol] 291 140-440 10*3/uL Normal 2019 [facility] ([id number]) Comment: Performed By: #### CXTIS ### # [facility] [address] [place] [facility] [address] [place] #### C/MICAELA #### [facility] [address] [place], [place] RBC (Bld) [#/Vol] 3.13 3.80-5.20 10*6/uL Low 08-23-2019 [facility] (31054) Comment: Performed By: #### CXTIS ### # [facility] [address] [place] [facility] [address] [place] #### C/MICAELA #### [facility] [address] [place] WBC (Bld) [#/Vol] 7.9 3.6-10.7 10*3/uL Normal 08-23-2019 [facility] ([id number]) Comment: Performed By: #### CXTIS ### # [facility] System [address] [place] [address] [facility] [address] [place], [place] [id number] #### C/MICAELA #### [facility] [address] [place] [address] No panel information on 2019-08-23 Interpretation and review Abnormal 08-10 [place], [place] of laboratory results ([id number]) Vancomycin Tr 13.6 15 - 20 ug/mL Low 08-23-2019 [place], [place] ([address]) Comment: . Test Performed 08-23-2019 [facility] ([address]) System, [facility] [place] [address] Absolute Baso # 0.0 0 - 0.2 10*3/uL 08-23-2019 [place], [place] ([address]) Absolute Neut # 5.4 1.8 - 7 10*3/uL 08-23-2019 [place], [place] (45 [address]) Basophils/100 WBC 0.3 0 - 2 % 08-23-2019 [facility]- (Bld) [place], [place] ([address]) Eosinophils (Bld) 0.3 0 - 0.5 10*3/uL 08-23-2019 [facility]- [#/Vol] [place], [place] (45 [address]) Eosinophils/100 WBC 3.8 1 - 6 % 08-23-2019 [facility]- (Bld) [place], [place] ([address]) Erythrocyte 13.5 11.5 - % 08-23-2019 [facility] width 14.5 [place] ([address]) (RBC) [Ratio] Granulocytes/100 WBC 68.3 40 - 80 % 0 [facility]- (Bld) [place], [place] ([address]) Hematocrit (Bld) 27.7 35 - 47 % Low 08-23-2019 [facility]- [Volume fraction] [place] ([address]) Hemoglobin (Bld) 9.7 11.7 - 16 g/dL Low 08-23-2019 [facility]- [Mass/Vol] [place], [place] (4 [address]) Interpretation and Abnormal 08-23-2019 [facility]- review of laboratory [place] ([id number]) results Lymphocytes (Bld) 1.6 1 - 4.3 10*3/uL 08-23-2019 [facility]- [#/Vol] [place] (45 237) Lymphocytes/100 WBC 19.8 20 - 40 % Low 08-23-2019 [facility]- (Bld) [place] (45 237) MCH (RBC) [Entitic 30.9 26 - 34 pg 08-23-2019 [facility]- mass] [place] (45 237) MCHC (RBC) [Mass/Vol] 34.9 32 - 36 % 08-23-19 20 [facility] [place] (45 237) MCV (RBC) [Entitic 88.7 79 - 98 fL 08-23-2019 [facility]- vol] [place] (45 237) Monocytes (Bld) 0.6 0 - 0.8 10*3/uL 08-23-2019 [facility]- [#/Vol] [place] (45 237) Monocytes/100 WBC 7.8 2 - 10 % 08-23-2019 [facility]- (Bld) [place] (45 237) Platelet mean volume 7.2 7.4 - 10.4 fL Low 08-23-19 20 [facility]- (Bld) [Entitic vol] [place] ([id number]) Platelets (Bld) 291 140 - 440 10*3/uL 08-23-2019 [facility]- [#/Vol] [place] (45 237) RBC (Bld) [#/Vol] 3.13 3.8 - 5.2 10*6/uL Low 08-23-2019 [facility] [place] (45 237) WBC (Bld) [#/Vol] 7.9 3.6 - 10.7 10*3/uL 08-23-2019 [place], [place] (45 [address]) Test Performed 08-23-2019 [facility]- by [facility] [place] ([id number]) [facility], [address] [place] [address] vancomycin trough o n 2019-08-22 Vancomycin Trough 13.4 15.0-20.0 ug/mL Low 08-22-2019 [facility] (80643) Comment: Result Comment: . Performed By: #### CXTIS ### # [facility] [address] [place] [facility] [address] [place] #### C/MICAELA #### [facility] [address] [place] hemogram w/ autodiff on 2019-08-22 Abs Baso Cnt 0.1 0.0-0.2 10*3/uL Normal 08-22-2019 [facility] ([id number]) Comment: Performed By: #### CXTIS ### # [facility] [place] [facility] [place] #### C/MICAELA #### [facility] [place] Abs Neutrophile Cnt 4.4 1.8-7.0 10*3/uL Normal 08-22-2019 [facility] (21437) Comment: Performed By: #### CXTIS ### # [facility] [place] [facility] [place] #### C/MICAELA #### [facility] [address] [place] Basophils/100 WBC (Bld) 0.8 0.0-2.0 % Normal 2019 [facility] (00511) Comment: Performed By: #### CXTIS ### # [facility] [address] [place] [facility] [address] [place] #### C/MICAELA #### [facility] [place] Eosinophils (Bld) [#/Vol] 0.4 0.0-0.5 10*3/uL Normal 08-10 [facility] (10571) Comment: Performed By: #### CXTIS ### # [facility] [place] [facility] [address] [place] #### C/MICAELA #### [facility] [address] [place] Eosinophils/100 WBC (Bld) 5.3 1.0-6.0 % Normal 08-10 [facility] ([id number]) Comment: Performed By: #### CXTIS ### # [facility] [address] [place] [facility] [address] [place] #### C/MICAELA #### [facility] [place] Erythrocyte distribution 13.7 11.5-14.5 % Normal 08-21 [facility] width (RBC) [Ratio] (08470) Comment: Performed By: #### CXTIS ### # [facility] [place] [facility] [address] [place] #### C/MICAELA #### [facility] [place] Granulocytes/100 WBC (Bld) 59.9 40.0-80.0 % Normal [facility] (73853) Comment: Performed By: #### CXTIS ### # [facility] [place] [facility] [address] [place] #### C/MICAELA #### [facility] [address] [place] Hematocrit (Bld) [Volume 28.2 35.0-47.0 % Low 08-21 [facility] fraction] ([id number]) Comment: Performed By: #### CXTIS ### # [facility] [address] [place] [facility] [address] [place] #### C/MICAELA #### [facility] [address] [place] Hemoglobin (Bld) [Mass/Vol] 9.7 11.7-16.0 g/dL Low [facility] (26168) Comment: Performed By: #### CXTIS ### # [facility] [address] [place] [facility] [place] #### C/MICAELA #### [facility] [place] Lymphocytes (Bld) [#/Vol] 2.0 1.0-4.3 10*3/uL Normal 08-10 [facility] (59071) Comment: Performed By: #### CXTIS ### # [facility] [place] [facility] [place] #### C/MICAELA #### [facility] [place] Lymphocytes/100 WBC (Bld) 26.8 20.0-40.0 % Normal 08-10 [facility] (16182) Comment: Performed By: #### CXTIS ### # [facility] [place] [facility] [place] #### C/MICAELA #### [facility] [place] MCH (RBC) [Entitic mass] 30.9 26.0-34.0 pg Normal 08-21 [facility] (59628) Comment: Performed By: #### CXTIS ### # [facility] [place] [facility] [place] #### C/MICAELA #### [facility] [place] MCHC (RBC) [Mass/Vol] 34.4 32.0-36.0 % Normal 08-22-19 20 [facility] (34905) Comment: Performed By: #### CXTIS ### # [facility] [place] [facility] [address] [place] #### C/MICAELA #### [facility] [address] [place] MCV (RBC) [Entitic vol] 89.8 79.0-98.0 fL Normal 2019 [facility] ([id number]) Comment: Performed By: #### CXTIS ### # [facility] [place] [facility] [place] #### C/MICAELA #### [facility] [place] Monocytes (Bld) [#/Vol] 0.5 0.0-0.8 10*3/uL Normal 2019 [facility] (98536) Comment: Performed By: #### CXTIS ### # [facility] [place] [facility] [place] #### C/MICAELA #### [facility] [place] Monocytes/100 WBC (Bld) 7.2 2.0-10.0 % Normal 2019 [facility] (46197) Comment: Performed By: #### CXTIS ### # [facility] [place] [facility] [place] #### C/MICAELA #### [facility] [place] Platelet mean volume (Bld) 8.1 7.4-10.4 fL Normal [facility] [Entitic vol] (77408 ) Comment: Performed By: #### CXTIS ### # [facility] [address] [place] [facility] [address] [place] #### C/MICAELA #### [facility] [address] [place] Platelets (Bld) [#/Vol] 306 140-440 10*3/uL Normal 2019 [facility] (34907) Comment: Performed By: #### CXTIS ### # [facility] [address] [place] [facility] [address] [place] #### C/MICAELA #### [facility] System [facility] [place] RBC (Bld) [#/Vol] 3.14 3.80-5.20 10*6/uL Low 08-22-2019 [facility] (81390) Comment: Performed By: #### CXTIS ### # [facility] [place] [facility] System [facility] [place] #### C/MICAELA #### [facility] [place] WBC (Bld) [#/Vol] 7.4 3.6-10.7 10*3/uL Normal 08-22-2019 [facility] ([id number]) Comment: Performed By: #### CXTIS ### # [facility] [address] [place] [facility]alt System [address] [place] #### C/MICAELA #### [facility] System [facility] [place] No panel information on 2019-08-22 Sodium [Moles/Vol] NEG mmol/L 08-22-2019 [facility] [place] ([address]) Comment: Test Performed by [facility], [facility] [place], [place] Sodium [Moles/Vol] POS mmol/L 08-22-2019 [place], [place] ([address]) Comment: Test Performed by [facility], [address] [place] [address] Sodium [Moles/Vol] B 08-22-2019 [place], [place] (67 [address]) Test Performed by 08-22-2019 [facility] ([address]) System, [address] [place] [address] Interpretation and Abnormal 08-22-2019 [facility]- review [place] ([address]) results Vancomycin Tr 13.4 15 - 20 ug/mL Low 08-22-2019 [place], [place] ([address]) Comment: . Test Performed 08-22-2019 [facility] ([address]) System, [address] [place] [address] Absolute Baso # 0.1 0 - 0.2 10*3/uL 08-22-2019 [place], [place] ([address]) Absolute Neut # 4.4 1.8 - 7 10*3/uL 08-22-2019 [place], [place] (02 237) Basophils/100 WBC 0.8 0 - 2 % 08-22-2019 [facility]- (Bld) [place], [place] (20 237) Eosinophils (Bld) 0.4 0 - 0.5 10*3/uL 08-22-2019 [facility]- [#/Vol] [place], [place] (93 [address]) Eosinophils/100 WBC 5.3 1 - 6 % 08-22-2019 [facility]- (Bld) [place], [place] (45 [address]) Erythrocyte 13.7 11.5 - % 08-22-2019 [facility] ealth- distribution width 14.5 [place] ([address]) (RBC) [Ratio] Granulocytes/100 WBC 59.9 40 - 80 % 0 [facility]- (Bld) [place], [place] ([address]) Hematocrit (Bld) 28.2 35 - 47 % Low 08-22-2019 [facility]- [Volume fraction] [place] ([address]) Hemoglobin (Bld) 9.7 11.7 - 16 g/dL Low 08-22-2019 [facility]- [Mass/Vol] [place] (4 6138) Interpretation and Abnormal 08-22-2019 [facility]- review of laboratory [place] ([id number]) results Lymphocytes (Bld) 2.0 1 - 4.3 10*3/uL 08-22-2019 [facility]- [#/Vol] [place] (45 237) Lymphocytes/100 WBC 26.8 20 - 40 % 08-22-2019 [facility]- (Bld) [place] (45 237) MCH (RBC) [Entitic 30.9 26 - 34 pg 08-22-2019 [facility]- mass] [place] (45 237) MCHC (RBC) [Mass/Vol] 34.4 32 - 36 % 08-22-19 20 [facility] [place] (45 237) MCV (RBC) [Entitic 89.8 79 - 98 fL 08-22-2019 [facility]- vol] [place] (45 237) Monocytes (Bld) 0.5 0 - 0.8 10*3/uL 08-22-2019 [facility] [#/Vol] [place] (45 237) Monocytes/100 WBC 7.2 2 - 10 % 08-22-2019 [facility]- (Bld) [place] (45 237) Platelet mean volume 8.1 7.4 - 10.4 fL 08-22-19 20 [facility]- (Bld) [Entitic vol] [place] (54469) Platelets (Bld) 306 140 - 440 10*3/uL 08-22-2019 [facility]- [#/Vol] [place] (45 237) RBC (Bld) [#/Vol] 3.14 3.8 - 5.2 10*6/uL Low 08-22-2019 [facility] [place] (45 237) WBC (Bld) [#/Vol] 7.4 3.6 - 10.7 10*3/uL 08-22-2019 [facility] [place] (45 237) Test Performed 08-22-2019 [facility] by [facility] [place] ([id number]) System, [facility] [place] [address] hemogram w/ autodiff on 2019-08-21 Abs Baso Cnt 0.1 0.0-0.2 10*3/uL Normal 08-21-2019 [facility] (75949) Comment: Performed By: #### CXTIS ### # [facility] [address] [place] [facility] [place] #### C/MICAELA #### [facility] [address] [place] Abs Neutrophile Cnt 4.0 1.8-7.0 10*3/uL Normal 08-21-2019 [facility] (82972) Comment: Performed By: #### CXTIS ### # [facility] [place] [facility] [place] #### C/MICAELA #### [facility] [place] Basophils/100 WBC (Bld) 0.9 0.0-2.0 % Normal 2019 [facility] (00359) Comment: Performed By: #### CXTIS ### # [facility] [place] [facility] [place] #### C/MICAELA #### [facility] [place] Eosinophils (Bld) [#/Vol] 0.2 0.0-0.5 10*3/uL Normal 08-10 [facility] (76423) Comment: Performed By: #### CXTIS ### # [facility] [address] [place] [facility] [address] [place] #### C/MICAELA #### [facility] [address] [place] Eosinophils/100 WBC (Bld) 3.7 1.0-6.0 % Normal 08-10 [facility] ([id number]) Comment: Performed By: #### CXTIS ### # [facility] [address] [place] [facility] [address] [place] #### C/MICAELA #### [facility] [address] [place] Erythrocyte distribution 13.7 11.5-14.5 % Normal 08-20 [facility] width (RBC) [Ratio] (13774) Comment: Performed By: #### CXTIS ### # [facility] [address] [place] [facility] [address] [place] #### C/MICAELA #### [facility] [address] [place] Granulocytes/100 WBC (Bld) 60.5 40.0-80.0 % Normal [facility] (40735) Comment: Performed By: #### CXTIS ### # [facility] [address] [place] [facility] [address] [place] #### C/MICAELA #### [facility] [address] [place] Hematocrit (Bld) [Volume 27.0 35.0-47.0 % Low 08-20 [facility] fraction] (13306) Comment: Performed By: #### CXTIS ### # [facility] [address] [place] [facility] [address] [place] #### C/MICAELA #### [facility] [address] [place] Hemoglobin (Bld) [Mass/Vol] 9.2 11.7-16.0 g/dL Low [facility] (80848) Comment: Performed By: #### CXTIS ### # [facility] [address] [place] [facility] [address] [place] #### C/MICAELA #### [facility] [place] Lymphocytes (Bld) [#/Vol] 1.8 1.0-4.3 10*3/uL Normal 08-10 [facility] (83340) Comment: Performed By: #### CXTIS ### # [facility] [place] [facility] [address] [place] #### C/MICAELA #### [facility] [place] Lymphocytes/100 WBC (Bld) 27.2 20.0-40.0 % Normal 08-10 [facility] (21198) Comment: Performed By: #### CXTIS ### # [facility] [place] [facility] [place] #### C/MICAELA #### [facility] [place] MCH (RBC) [Entitic mass] 30.5 26.0-34.0 pg Normal 08-20 [facility] (13630) Comment: Performed By: #### CXTIS ### # [facility] [place] [facility] [address] [place] #### C/MICAELA #### [facility] [place] MCHC (RBC) [Mass/Vol] 34.2 32.0-36.0 % Normal 08-21-19 [facility] (00342) Comment: Performed By: #### CXTIS ### # [facility] [place] [facility] [address] [place] #### C/MICAELA #### [facility] [address] [place] MCV (RBC) [Entitic vol] 89.3 79.0-98.0 fL Normal 2019 [facility] (30189) Comment: Performed By: #### CXTIS ### # [facility] [address] [place] [facility] [address] [place] #### C/MICAELA #### [facility] [place] Monocytes (Bld) [#/Vol] 0.5 0.0-0.8 10*3/uL Normal 2019 [facility] (77849) Comment: Performed By: #### CXTIS ### # [facility] [place] [facility] [place] #### C/MICAELA #### [facility] [place] Monocytes/100 WBC (Bld) 7.7 2.0-10.0 % Normal 2019 [facility] (63371) Comment: Performed By: #### CXTIS ### # [facility] [place] [facility] [place] #### C/MICAELA #### [facility] [place] Platelet mean volume (Bld) 8.2 7.4-10.4 fL Normal [facility] [Entitic vol] (81486 ) Comment: Performed By: #### CXTIS ### # [facility] [place] [facility] [place] #### C/MICAELA #### [facility] [place] Platelets (Bld) [#/Vol] 271 140-440 10*3/uL Normal 2019 [facility] (18745) Comment: Performed By: #### CXTIS ### # [facility] [address] [place] [facility] [address] [place] #### C/MICAELA #### [facility] [address] [place] RBC (Bld) [#/Vol] 3.03 3.80-5.20 10*6/uL Low 08-21-2019 [facility] (48399) Comment: Performed By: #### CXTIS ### # [facility] [address] [place] [facility] [address] [place] #### C/MICAELA #### [facility] [facility] [address], [place] WBC (Bld) [#/Vol] 6.6 3.6-10.7 10*3/uL Normal 08-21-2019 [facility] ([id number]) Comment: Performed By: #### CXTIS ### # [facility] [address], [place] [facility] [address], [place] #### C/MICAELA #### [facility] [address], [place] No panel information on 2019-08-21 Absolute Baso # 0.1 0 - 0.2 10*3/uL 08-21-2019 [place], [place] ([address]) Absolute Neut # 4.0 1.8 - 7 10*3/uL 08-21-2019 [place], [place] (45 [address]) Basophils/100 WBC 0.9 0 - 2 % 08-21-2019 [facility]- (Bld) [place], [place] ([address]) Eosinophils (Bld) 0.2 0 - 0.5 10*3/uL 08-21-2019 [facility]- [#/Vol] [place], [place] (45 [address]) Eosinophils/100 WBC 3.7 1 - 6 % 08-21-2019 [facility]- (Bld) [place] HOBBS (45 237) Erythrocyte 13.7 11.5 - % 08-21-2019 [facility] ealth- distribution width 14.5 O [place]ama ([id number]) (RBC) [Ratio] Granulocytes/100 WBC 60.5 40 - 80 % 0 [facility]- (Bld) [place] (45 237) Hematocrit (Bld) 27.0 35 - 47 % Low 08-21-2019 [facility]- [Volume fraction] [place] (43133) Hemoglobin (Bld) 9.2 11.7 - 16 g/dL Low 08-21-2019 [facility]- [Mass/Vol] [place] HOBBS ([id number] 3059) Interpretation and Abnormal 08-21-2019 [facility]- review of laboratory [place] ([id number]) results Lymphocytes (Bld) 1.8 1 - 4.3 10*3/uL 08-21-2019 [facility]- [#/Vol] [place] HOB[place] (45 237) Lymphocytes/100 WBC 27.2 20 - 40 % 08-21-2019 [facility]- (Bld) [place] (45 237) MCH (RBC) [Entitic 30.5 26 - 34 pg 08-21-2019 [facility]- mass] [place] HOBBS (45 237) MCHC (RBC) [Mass/Vol] 34.2 32 - 36 % 08-21-19 20 [facility] [place] HOBBS (45 237) MCV (RBC) [Entitic 89.3 79 - 98 fL 08-21-2019 [facility]- vol] [place] HOBBS (45 237) Monocytes (Bld) 0.5 0 - 0.8 10*3/uL 08-21-2019 [facility] [place]- [#/Vol] [place] (45 237) Monocytes/100 WBC 7.7 2 - 10 % 08-21-2019 [facility]- (Bld) [place] HOBBS (45 237) Platelet mean volume 8.2 7.4 - 10.4 fL 08-21-19 20 [facility] (Bld) [Entitic vol] [place] HOBBS ([id number]) Platelets (Bld) 271 140 - 440 10*3/uL 08-21-2019 [facility]- [#/Vol] [place], [place] (45 [address]) RBC (Bld) [#/Vol] 3.03 3.8 - 5.2 10*6/uL Low 08-21-2019 [facility] [place] (45 237) WBC (Bld) [#/Vol] 6.6 3.6 - 10.7 10*3/uL 08-21-2019 [facility] [place], [place] (45 237) Test Performed 08-21-2019 [facility] ([address]) System, [address] [place] [address] vancomycin trough o n 2019-08-20 Vancomycin Trough 11.4 15.0-20.0 ug/mL Low 08-20-2019 [facility] (84936) Comment: Result Comment: . Performed By: #### CXTIS ### # [facility] [address], [place] [facility] [address], [place] #### C/MICAELA #### [facility] [address], [place] magnesium on -10 Magnesium [Mass/Vol] 1.9 1.6-2.3 mg/dL Normal 0 [facility] (73145) Comment: Performed By: #### CXTIS ### # [facility] [address], [place] [facility] [address], [place] #### C/MICAELA #### [facility] [address], [place] hemogram w/ autodiff on 2019-08-20 Abs Baso Cnt 0.0 0.0-0.2 10*3/uL Normal 08-20-2019 [facility] ([id number]) Comment: Performed By: #### CXTIS ### # [facility] [address], [place] [facility] [address] #### C/MICAELA #### [facility] [address], [place] Abs Neutrophile Cnt 4.5 1.8-7.0 10*3/uL Normal 08-20-2019 [facility] (76054) Comment: Performed By: #### CXTIS ### # [facility] [address] [facility] [address] #### C/MICAELA #### [facility] [address], [place] Basophils/100 WBC (Bld) 0.2 0.0-2.0 % Normal 2019 [facility] (29147) Comment: Performed By: #### CXTIS ### # [facility] [address] [facility] [address] #### C/MICAELA #### [facility] [address] Eosinophils (Bld) [#/Vol] 0.2 0.0-0.5 10*3/uL Normal 08-10 [facility] (78261) Comment: Performed By: #### CXTIS ### # [facility] [address] [facility] [address] #### C/MICAELA #### [facility] [address] Eosinophils/100 WBC (Bld) 3.4 1.0-6.0 % Normal 08-10 [facility] (52829) Comment: Performed By: #### CXTIS ### # [facility] [address] [facility] [address] #### C/MICAELA #### [facility] [address] Erythrocyte distribution 13.4 11.5-14.5 % Normal 08-19 [facility] width (RBC) [Ratio] (25520) Comment: Performed By: #### CXTIS ### # [facility] [address] [facility] [address] #### C/MICAELA #### [facility] [address] Granulocytes/100 WBC (Bld) 65.9 40.0-80.0 % Normal [facility] (04420) Comment: Performed By: #### CXTIS ### # [facility] [address] [facility] [address] #### C/MICAELA #### [facility] [address], [place] Hematocrit (Bld) [Volume 25.9 35.0-47.0 % Low 08-19 [facility] System fraction] (57226) Comment: Performed By: #### CXTIS ### # [facility] [address] [facility] [address] #### C/MICAELA #### [facility] [address] Hemoglobin (Bld) [Mass/Vol] 9.0 11.7-16.0 g/dL Low [facility] (55741) Comment: Performed By: #### CXTIS ### # [facility] [address] [facility] [address] #### C/MICAELA #### [facility] [address], [place] Lymphocytes (Bld) [#/Vol] 1.6 1.0-4.3 10*3/uL Normal 08-10 [facility] (67707) Comment: Performed By: #### CXTIS ### # [facility] [address] [facility] [address] #### C/MICAELA #### [facility] [address], [place] Lymphocytes/100 WBC (Bld) 23.1 20.0-40.0 % Normal 08-10 [facility] (53318) Comment: Performed By: #### CXTIS ### # [facility] [address] [facility] [address] #### C/MICAELA #### [facility] [address], [place] MCH (RBC) [Entitic mass] 30.7 26.0-34.0 pg Normal 08-19 [facility] (48116) Comment: Performed By: #### CXTIS ### # [facility] [address] [facility] [address] #### C/MICAELA #### [facility] [address] MCHC (RBC) [Mass/Vol] 34.8 32.0-36.0 % Normal 08-20-19 [facility] (25187) Comment: Performed By: #### CXTIS ### # [facility] [address] [facility] [address] #### C/MICAELA #### [facility] [address] MCV (RBC) [Entitic vol] 88.2 79.0-98.0 fL Normal 2019 [facility] ([id number]) Comment: Performed By: #### CXTIS ### # [facility] [address] [facility] [address] #### C/MICAELA #### [facility] [address] Monocytes (Bld) [#/Vol] 0.5 0.0-0.8 10*3/uL Normal 2019 [facility] (48097) Comment: Performed By: #### CXTIS ### # [facility] [address] [facility] [address] #### C/MICAELA #### [facility] [address] Monocytes/100 WBC (Bld) 7.4 2.0-10.0 % Normal 2019 [facility] (41158) Comment: Performed By: #### CXTIS ### # [facility] [address] [facility] [address] #### C/MICAELA #### [facility] [address], [place] Platelet mean volume (Bld) 7.6 7.4-10.4 fL Normal [facility] [Entitic vol] (48319 ) Comment: Performed By: #### CXTIS ### # [facility] [address] [facility] [address] #### C/MICAELA #### [facility] [address] Platelets (Bld) [#/Vol] 230 140-440 10*3/uL Normal 2019 [facility] ([id number]) Comment: Performed By: #### CXTIS ### # [facility] [address] [facility] [address] #### C/MICAELA #### [facility] [address], [place] RBC (Bld) [#/Vol] 2.93 3.80-5.20 10*6/uL Low 08-20-2019 [facility] ([id number]) Comment: Performed By: #### CXTIS ### # [facility] [address], [place] [facility] [address] #### C/MICAELA #### [facility] [address], [place] WBC (Bld) [#/Vol] 6.8 3.6-10.7 10*3/uL Normal 08-20-2019 [facility] (84164) Comment: Performed By: #### CXTIS ### # [facility] [address], [place] [facility] [address] #### C/MICAELA #### [facility] [address], [place] basic metabolic panel on 2019-08-20 Calcium [Mass/Vol] 9.1 8.4-10.4 mg/dL Normal 08-20-2019 [facility] ([id number]) Comment: Performed By: #### CXTIS ### # [facility] [address], [place] [facility] [address], [place] #### C/MICAELA #### [facility] [address], [place] Anion gap [Moles/Vol] 5 Normal 08-20-19 20 [facility] ([id number]) Comment: Performed By: #### CXTIS ### # [facility] [address] [facility] [address] #### C/MICAELA #### [facility] [address], [place] CO2 [Moles/Vol] 29 22-30 mmol/L Normal 08-20-2019 [facility] (60041) Comment: Performed By: #### CXTIS ### # [facility] [address], [place] [facility] [address], [place] #### C/MICAELA #### [facility] [address], [place] Creatinine [Mass/Vol] 0.56 0.52-1.25 mg/dL Normal 08-20-19 20 [facility] (23269) Comment: Performed By: #### CXTIS ### # [facility] [address], [place] [facility] [address], [place] #### C/MICAELA #### [facility] [address], [place] GFR/1.73 sq M > 60.0 >60 mL/min/{1.73_m2} Normal 0 [facility] predicted among Syst em (01877) blacks MDRD (S/P/Bld) [Vol rate/Area] Comment: Performed By: #### CXTIS ### # [facility] [address], [place] [facility] [address], [place] #### C/MICAELA #### [facility] [address], [place] GFR/1.73 sq M > 60.0 >60 mL/min/{1.73_m2} Normal 0 [facility] predicted among Syst em (26035) non-blacks MDRD (S/P/Bld) [Vol rate/Area] Comment: Result Comment: Source- MDRD equation with creatinine calibration to IDMS(NKDEP) eGFR not recommended for nicolas g dose adjustment Performed By: #### CXTIS ### # [facility] [address], [place] [facility] [address], [place] #### C/MICAELA #### [facility] [address], [place] Glucose [Mass/Vol] 96 70-100 mg/dL Normal 08-20-2019 [facility] (17066) Comment: Performed By: #### CXTIS ### # [facility] [address] [facility] [address] #### C/MICAELA #### [facility] [address] Urea nitrogen [Mass/Vol] 11 7-20 mg/dL Normal 08-19 [facility] (93947) Comment: Performed By: #### CXTIS ### # [facility] [address] [facility] [address] #### C/MICAELA #### [facility] [address] Chloride [Moles/Vol] 100 98-107 mmol/L Normal 0 [facility] (46245) Comment: Performed By: #### CXTIS ### # [facility] [address] [facility] [address] #### C/MICAELA #### [facility] [address] Potassium [Moles/Vol] 3.9 3.5-5.1 mmol/L Normal 08-20-19 20 [facility] (04579) Comment: Performed By: #### CXTIS ### # [facility] [address] [facility] [place] [facility] [address] #### C/MICAELA #### [facility] [address] [facility] [place] Sodium [Moles/Vol] 135 135-145 mmol/L Normal 08-20-2019 [facility] (51303) Comment: Performed By: #### CXTIS ### # [facility] [address] [place] [address] [facility] [address], [place] [id number] #### C/MICAELA #### [facility] [address] [place] [address] No panel information on 2019-08-20 Interpretation and review Abnormal 08-10 [place], [place] of laboratory results ([id number]) Vancomycin Tr 11.4 15 - 20 ug/mL Low 08-20-2019 [place] ([address]) Comment: . Test Performed by 08-20-2019 [place], [place] ([address]) System, [facility] [place] [address] Anion gap 5 mmol/L 08-20-2019 [facility] [Moles/Vol] [place] ( [address]) Calcium [Mass/Vol] 9.1 8.4 - 10.4 mg/dL 08-20-2019 [place], [place] (55 546) Chloride 100 98 - 107 mmol/L 08-20-2019 [facility] [Moles/Vol] [place] ( [address]) CO2 [Moles/Vol] 29 22 - 30 mmol/L 08-20-2019 [place], [place] (41 292) Creatinine 0.56 0.52 - 1.25 mg/dL 08-20-2019 [facility] [Mass/Vol] [place], [place] (4 0242) EGFR IF NonAfrican >60.0 >60 mL/min 08-20-2019 [place], [place] (10 418) Comment: Source- MDRD equation with c reatinine calibration to IDMS(NKDEP) eGFR not recommended for nicolas g dose adjustment GFR/1.73 sq M >60.0 >60 mL/min mL/min/{1.73_m2} 08-20-19 [facility] predicted among [facility] [place], [facility] MDRD [place] (1424 7) (S/P/Bld) [Vol rate/Area] Glucose [Mass/Vol] 96 70 - 100 mg/dL 08-20-2019 [place], [place] ([address]) Magnesium 1.9 1.6 - 2.3 mg/dL 08-20-2019 [facility] [Mass/Vol] [place] ([address]) Potassium 3.9 3.5 - 5.1 mmol/L 08-20-2019 [facility] [Moles/Vol] [place] ([address]) Sodium [Moles/Vol] 135 135 - 145 mmol/L 08-20-2019 [facility] [place] ([address]) Urea nitrogen 11 7 - 20 mg/dL 08-20-2019 [facility] [Mass/Vol] [place] ([address]) Test 08-20-2019 [facility] Performed by [facility] [place] (761 64) [facility], [address] [place] [address] Absolute Baso # 0.0 0 - 0.2 10*3/uL 08-20-2019 [place] ([address]) Absolute Neut # 4.5 1.8 - 7 10*3/uL 08-20-2019 [place] ([address]) Basophils/100 WBC 0.2 0 - 2 % 08-20-2019 [facility] (Bld) [place] ([address]) Eosinophils (Bld) 0.2 0 - 0.5 10*3/uL 08-20-2019 [facility] [#/Vol] [place] ([address]) Eosinophils/100 WBC 3.4 1 - 6 % 08-20-2019 [facility] (Bld) [place] ([address]) Erythrocyte 13.4 11.5 - % 08-20-2019 [facility] ([facility]BC[facility] [Ratio] [place] (45 128) Granulocytes/100 65.9 40 - 80 % 08-20-2019 [facility] WBC (Bld) [place] ([address]) Hematocrit (Bld) 25.9 35 - 47 % Low 08-20-2019 [facility] [Volume fraction] [place] ([address]) Hemoglobin (Bld) 9.0 11.7 - 16 g/dL Low 08-20-2019 [facility] [Mass/Vol] [place] ([address]) Interpretation and Abnormal 08-20-2019 [facility] review of [facility] , laboratory results K Y (90733) Lymphocytes (Bld) 1.6 1 - 4.3 10*3/uL 08-20-2019 [facility] [#/Vol] [place] ([address]) Lymphocytes/100 WBC 23.1 20 - 40 % 08-20-2019 [facility] (Bld) [place] ([address]) MCH (RBC) [Entitic 30.7 26 - 34 pg 08-20-2019 [facility] mass] [place] ([address]) MCHC (RBC) 34.8 32 - 36 % 08-20-2019 [facility] [Mass/Vol] [facility] ([address]) MCV (RBC) [Entitic 88.2 79 - 98 fL 08-20-2019 [facility] vol] [place] ([address]) Monocytes (Bld) 0.5 0 - 0.8 10*3/uL 08-20-2019 [facility] [#/Vol] [place] ([address]) Monocytes/100 WBC 7.4 2 - 10 % 08-20-2019 [facility] (Bld) [place] ([address]) Platelet mean 7.6 7.4 - 10.4 fL 08-20-2019 [facility] volume (Bld) [facility], [Entitic vol] [place] (45 237) Platelets (Bld) 230 140 - 440 10*3/uL 08-20-2019 [facility] [#/Vol] [place] ([address]) RBC (Bld) [#/Vol] 2.93 3.8 - 5.2 10*6/uL Low 08-20-2019 [place] ([address]) WBC (Bld) [#/Vol] 6.8 3.6 - 10.7 10*3/uL 08-20-2019 [place] ([address]) Test 08-20-2019 [facility] Performed by [facility] [place] (432 [address]) System, [address] [place] [address] ts gel on 9 TS GEL ABO Group: Normal 08-19-2019 [facility] (19761[facility] B Rh, Gel: POS Antibody Screen Gel: NEG Comment: Performed By: #### CXTIS ### # [facility] [employer] [facility] [place] [facility] [address], [place] #### C/MICAELA #### [facility] [address], [place] magnesium on 08-18 Magnesium [Mass/Vol] 1.9 1.6-2.3 mg/dL Normal 0 [facility] (99992) Comment: Performed By: #### CXTIS ### # [facility] [address] [facility] [address] #### C/MICAELA #### [facility] [address] [place] hemogram w/ autodiff on 2019-08-19 Abs Baso Cnt 0.0 0.0-0.2 10*3/uL Normal 08-19-2019 [facility] (42858) Comment: Performed By: #### CXTIS ### # [facility] [address] [place] [facility] [address] #### C/MICAELA #### [facility] [address] [place] Abs Neutrophile Cnt 3.4 1.8-7.0 10*3/uL Normal 08-19-2019 [facility] (47063) Comment: Performed By: #### CXTIS ### # [facility] [address] [place] [facility] [address] #### C/MICAELA #### [facility] [address] Basophils/100 WBC (Bld) 0.4 0.0-2.0 % Normal 2019 [facility] (49105) Comment: Performed By: #### CXTIS ### # [facility] [address] [facility] [address] #### C/MICAELA #### [facility] [address] Eosinophils (Bld) [#/Vol] 0.2 0.0-0.5 10*3/uL Normal [facility] (87627) Comment: Performed By: #### CXTIS ### # [facility] [address] [facility] [address] #### C/MICAELA #### [facility] [address] [place] Eosinophils/100 WBC (Bld) 2.8 1.0-6.0 % Normal [facility] (96038) Comment: Performed By: #### CXTIS ### # [facility] [address] [place] [facility] [address] #### C/MICAELA #### [facility] [address] [place] Erythrocyte distribution 13.6 11.5-14.5 % Normal 08-18 [facility] System width (RBC) [Ratio] (32033) Comment: Performed By: #### CXTIS ### # [facility] [address] [place] [facility] [address] [place] #### C/MICAELA #### [facility] [address] Granulocytes/100 WBC (Bld) 57.3 40.0-80.0 % Normal [facility] (38036) Comment: Performed By: #### CXTIS ### # [facility] [address] [facility] [address] #### C/MICAELA #### [facility] [address] [place] Hematocrit (Bld) [Volume 24.3 35.0-47.0 % Low 08-18 [facility] fraction] (10668) Comment: Performed By: #### CXTIS ### # [facility] [address] [facility] [address] #### C/MICAELA #### [facility] [address] Hemoglobin (Bld) [Mass/Vol] 8.4 11.7-16.0 g/dL Low [facility] (27681) Comment: Performed By: #### CXTIS ### # [facility] [address] [place] [facility] [address] [place] #### C/MICAELA #### [facility] [address] [place] Lymphocytes (Bld) [#/Vol] 1.9 1.0-4.3 10*3/uL Normal [facility] (50171) Comment: Performed By: #### CXTIS ### # [facility] [address] [place] [facility] [address] [place] #### C/MICAELA #### [facility] [address] [place] Lymphocytes/100 WBC (Bld) 31.4 20.0-40.0 % Normal [facility] (26973) Comment: Performed By: #### CXTIS ### # [facility] [place] [place] [facility] [address] #### C/MICAELA #### [facility] [address] [place] MCH (RBC) [Entitic mass] 30.8 26.0-34.0 pg Normal 08-18 [facility] (31200) Comment: Performed By: #### CXTIS ### # [facility] [address] [facility] [address] #### C/MICAELA #### [facility] [address] MCHC (RBC) [Mass/Vol] 34.6 32.0-36.0 % Normal 08-19-19 20 [facility] ([id number]) Comment: Performed By: #### CXTIS ### # [facility] [place] [place], [place] [facility] [place] #### C/MICAELA #### [facility] [place] [place], [place] MCV (RBC) [Entitic vol] 89.2 79.0-98.0 fL Normal 2019 [facility] (48500) Comment: Performed By: #### CXTIS ### # [facility] [place] [facility] [place] #### C/MICAELA #### [facility] [place] [place] Monocytes (Bld) [#/Vol] 0.5 0.0-0.8 10*3/uL Normal 2019 [facility] (35073) Comment: Performed By: #### CXTIS ### # [facility] [address] [place], [place] [facility] [address] [place] #### C/MICAELA #### [facility] [address] [place], [place] Monocytes/100 WBC (Bld) 8.1 2.0-10.0 % Normal 2019 [facility] (57789) Comment: Performed By: #### CXTIS ### # [facility] [address] [facility] [place] [facility] [address] [place], [place] #### C/MICAELA #### [facility] [address] [facility], [place] Platelet mean volume (Bld) 7.9 7.4-10.4 fL Normal [facility] [Entitic vol] (43114 ) Comment: Performed By: #### CXTIS ### # [facility] [address] [facility] [place] [facility] [address] [place], [place] #### C/MICAELA #### [facility] [address] [place] Platelets (Bld) [#/Vol] 207 140-440 10*3/uL Normal 2019 [facility] (81743) Comment: Performed By: #### CXTIS ### # [facility] [address] [facility] [place] [facility] [address] [place] #### C/MICAELA #### [facility] [address] [place], [place] RBC (Bld) [#/Vol] 2.72 3.80-5.20 10*6/uL Low 08-19-2019 S [facility] (90238) Comment: Performed By: #### CXTIS ### # [facility] [address] [facility] [place] [facility] [address] [place] #### C/MICAELA #### [facility] [address] [facility], [place] WBC (Bld) [#/Vol] 5.9 3.6-10.7 10*3/uL Normal 08-19-2019 [facility] (46935) Comment: Performed By: #### CXTIS ### # [facility] [address] [facility] [place] [facility] [address] [place] #### C/MICAELA #### [facility] [address] [place], [place] culture anaerobe on 2019-08-19 CULTURE ANAEROBE CULTURE ANAEROBE --> Status: F No [facility] 08-19-2019 [facility] No growth of anaerobes at 5 days. ([id number]) Comment: Order Comment: Specimen cat ected in O.R. Performed By: #### REINIER, C/ MICAELA #### [facility] [address] [place], [place] CULTURE ANAEROBE CULTURE ANAEROBE --> Status: F No [facility] 08-19-2019 [facility] No growth of anaerobes at 5 days. (30353) Comment: Order Comment: Specimen cat ected in O.R. Performed By: #### CXTIS ### # [facility] [place] [place] [facility] [address] [place], [place] #### C/MICAELA #### [facility] [address] [place] CULTURE ANAEROBE CULTURE ANAEROBE --> Status: F No [facility] 08-19-2019 [facility] No growth of anaerobes at 5 days. ([id number]) Comment: Order Comment: Specimen cat ected in O.R. Performed By: #### CXIVIS, C/ MICAELA #### [facility] [address] [place], [place] basic metabolic panel on 2019-08-19 Anion gap [Moles/Vol] 4 Normal 08-19-19 20 [facility] (74755) Comment: Performed By: #### CXTIS ### # [facility] [address] [place], [place] [facility] ealt System [address] [place], [place] #### C/MICAELA #### [facility] [address] [place], [place] Chloride [Moles/Vol] 100 98-107 mmol/L Normal 08-18- 0 [facility] (69086) Comment: Performed By: #### CXTIS ### # [facility] [address] [facility] [place] [facility] [address] [facility] [place], [place] #### C/MICAELA #### [facility] [address] [facility] [place] Potassium [Moles/Vol] 3.5 3.5-5.1 mmol/L Normal 08-19-19 [facility] (34920) Comment: Performed By: #### CXTIS ### # [facility] [address] [facility] [place] [facility] [address] [facility] [place] #### C/MICAELA #### [facility] [address] [facility] [place] Sodium [Moles/Vol] 134 135-145 mmol/L Low 08-19-2019 [facility] (81330) Comment: Performed By: #### CXTIS ### # [facility] [address] [facility] [place] [facility] [address] [facility] [place] #### C/MICAELA #### [facility] [address] [facility] [place] Calcium [Mass/Vol] 8.4 8.4-10.4 mg/dL Normal 08-19-2019 [facility] (68350) Comment: Performed By: #### CXTIS ### # [facility] [address] [facility] [place] [facility] [address] [facility] [place] #### C/MICAELA #### [facility] [address] [facility] [place] CO2 [Moles/Vol] 31 22-30 mmol/L High 08-19-2019 [facility] (09173) Comment: Performed By: #### CXTIS ### # [facility] [address] [facility] [place] [facility] [address] [facility] [place] #### C/MICAELA #### [facility] [address] [place], [place] Glucose [Mass/Vol] 104 70-100 mg/dL High 08-19-2019 [facility] (16212) Comment: Performed By: #### EDERTIS ### # [facility] [address] [place] [facility] [address] [place] #### C/MICAELA #### [facility] [address] [place] Urea nitrogen [Mass/Vol] 11 7-20 mg/dL Normal 08-18 [facility] (90985) Comment: Performed By: #### EDERTIS ### # [facility] [address] [place] [facility] [address] [place] #### C/MICAELA #### [facility] [address] [place], [place] Creatinine [Mass/Vol] 0.64 0.52-1.25 mg/dL Normal 08-19-19 20 [facility] (60762) Comment: Performed By: #### EDERTIS ### # [facility] [address] [place], [place] [facility] [address] [place] #### C/MICAELA #### [facility] [address] [place], [place] GFR/1.73 sq M > 60.0 >60 mL/min/{1.73_m2} Normal 0 [facility] predicted among Syst em (77369) blacks MDRD (S/P/Bld) [Vol rate/Area] Comment: Performed By: #### CXTIS ### # [facility] [address] [place] [facility] [address] [place] #### C/MICAELA #### [facility] [address] [place] GFR/1.73 sq M > 60.0 >60 mL/min/{1.73_m2} Normal 0 [facility] predicted among Syst em (06975) non-blacks MDRD (S/P/Bld) [Vol rate/Area] Comment: Result Comment: Source- MDRD equation with creatinine calibration to IDMS(NKDEP) eGFR not recommended for nicolas g dose adjustment Performed By: #### CXTIS ### # [facility] [address] [place], [place] [facility] [address] [place], [place] #### C/MICAELA #### [facility] [address] [place], [place] No panel information on 2019-08-19 Anaerobic Culture No growth of anaerobes 08-19-2019 [place], [place] at 5 days. (63588) Test Performed by [facility] 2019 [facility], [facility] [address]. ([address]) [place] [address] Specimen collected in O.R. Anaerobic Culture No growth of anaerobes 08-19-2019 [place], [place] at 5 days. (545[address]) Test Performed by [facility] 2019 [facility], [address] ([address]) [place] [address] Specimen collected in O.R. Anaerobic Culture No growth of anaerobes 08-19-2019 [place], [place] at 5 days. (21670) Test Performed by [facility] 2019 [facility], [address] ([address]) [place] [address] Specimen collected in O.R. Sodium [Moles/Vol] NEG mmol/L 08-19-2019 [place] ([address]) Comment: Test Performed by [facility], [address] [place] [address] Sodium [Moles/Vol] B 08-19-2019 [place] ([address]) Sodium [Moles/Vol] POS mmol/L 08-19-2019 [place] ([address]) Comment: Test Performed by [facility], [address] [place] [address] Test Performed by 08-19-2019 [place], [place] ([address]) System, [facility] [place] [address] Anion gap 4 mmol/L 08-19-2019 [facility] [Moles/Vol] [place] ( [address]) Calcium [Mass/Vol] 8.4 8.4 - 10.4 mg/dL 08-19-2019 [place], [place] (61 [address]) Chloride 100 98 - 107 mmol/L 08-19-2019 [facility]- [Moles/Vol] [place] ( [address]) CO2 [Moles/Vol] 31 22 - 30 mmol/L High 08-19-2019 [place], [place] (70 [address]) Creatinine 0.64 0.52 - 1.25 mg/dL 08-19-2019 [facility] [Mass/Vol] [place], [place] (4 3659) EGFR IF NonAfrican >60.0 >60 mL/min 08-19-2019 [place], [place] ([address] 8[address]) Comment: Source- MDRD equation with c reatinine calibration to IDMS(NKDEP) eGFR not recommended for nicolas g dose adjustment GFR/1.73 sq M >60.0 >60 mL/min mL/min/{1.73_m2} 08-19-19 20 [facility] predicted among [facility]- [place], [facility] MDRD [place] (9799 7) (S/P/Bld) [Vol rate/Area] Glucose [Mass/Vol] 104 70 - 100 mg/dL High 08-19-2019 [place], [place] ([address]) Interpretation and Abnormal 08-19-2019 [facility] review of [facility] , laboratory results K Y (91314) Potassium 3.5 3.5 - 5.1 mmol/L 08-19-2019 [facility] [Moles/Vol] [place] ([address]) Sodium [Moles/Vol] 134 135 - 145 mmol/L Low 08-19-2019 [place], [place] ([address]) Urea nitrogen 11 7 - 20 mg/dL 08-19-2019 [facility] [Mass/Vol] [place] ([address]) Test 08-19-2019 [facility] Performed by [facility] (452 37) System, [facility] [place] [address] Magnesium 1.9 1.6 - 2.3 mg/dL 08-19-2019 [facility] [Mass/Vol] [place] ([address]) Test 08-19-2019 [facility] Performed by [facility] (452 37) System, [facility] [place] [address] Absolute Baso # 0.0 0 - 0.2 10*3/uL 08-19-2019 [place] ([address]) Absolute Neut # 3.4 1.8 - 7 10*3/uL 08-19-2019 [place] ([address]) Basophils/100 WBC 0.4 0 - 2 % 08-19-2019 M ercy (Bld) [place] ([address]) Eosinophils (Bld) 0.2 0 - 0.5 10*3/uL 08-19-2019 M ercy [#/Vol] [place] ([address]) Eosinophils/100 2.8 1 - 6 % 08-19-2019 Dora [facility] WBC (Bld) [place] ([address]) Erythrocyte 13.6 11.5 - % 08-19-2019 [facility] distribution width 14.5 H [facility], (RBC) [Ratio] [place] (45 237) Granulocytes/100 57.3 40 - 80 % 08-19-2019 Me rcy WBC (Bld) [place] ([address]) Hematocrit (Bld) 24.3 35 - 47 % Low 08-19-2019 Me rcy [Volume fraction] [place] ([address]) Hemoglobin (Bld) 8.4 11.7 - 16 g/dL Low 08-19-2019 Me rcy [Mass/Vol] [place] ([address]) Interpretation and Abnormal 08-19-2019 [facility] review of [facility] , laboratory results K Y (28430) Lymphocytes (Bld) 1.9 1 - 4.3 10*3/uL 08-19-2019 M ercy [#/Vol] [place] ([address]) Lymphocytes/100 31.4 20 - 40 % 08-19-2019 D[facility] WBC (Bld) [place] ([address]) MCH (RBC) [Entitic 30.8 26 - 34 pg 08-19-2019 [facility] mass] [place] ([address]) MCHC (RBC) 34.6 32 - 36 % 08-19-2019 [facility] [Mass/Vol] [place] ([address]) MCV (RBC) [Entitic 89.2 79 - 98 fL 08-19-2019 [facility] vol] [place] ([address]) Monocytes (Bld) 0.5 0 - 0.8 10*3/uL 08-19-2019 Dora [facility] [#/Vol] [place] ([address]) Monocytes/100 WBC 8.1 2 - 10 % 08-19-2019 M ercy (Bld) [place] ([address]) Platelet mean 7.9 7.4 - 10.4 fL 08-19-2019 [facility] y volume (Bld) [facility], [Entitic vol] [place] (45 237) Platelets (Bld) 207 140 - 440 10*3/uL 08-19-2019 Dora cy [#/Vol] [place] ([address]) RBC (Bld) [#/Vol] 2.72 3.8 - 5.2 10*6/uL Low 08-19-2019 [place] ([address]) WBC (Bld) [#/Vol] 5.9 3.6 - 10.7 10*3/uL 08-19-2019 [place] ([address]) Test 08-19-2019 [facility] Performed by [facility] (452 37) System, [address] [place] [address] single donor plasma (cp2d) on 2019-08-18 Single Donor Thawed Plasma - 5 Day: Normal [facility] Plasma (CP2D) [id number] transfused 08/18/19 03:26 [facility] System (68452) Unit Blood Type: B Unit Blood Rh: NEG Blood Product Code: 0T5 Unit Number: [id number] Unit Status: transfused Barcoded Unit Number: =[id number] Barcoded Product Code: = Barcoded ABO/Rh: =%1700 Unit Expiration: Unit Volume Transfused: 310 Unit Transfusion Start Date/Time: Thawed Plasma - 5 Day: [id number] transfused 08/18/19 01:10 [facility] Unit Blood Type: B Unit Blood Rh: POS Blood Product Code: 0T5 Unit Number: [id number] Unit Status: transfused Barcoded Unit Number: =[id number] Barcoded Product Code: = Barcoded ABO/Rh: =%7300 Unit Expiration: Unit Volume Transfused: 242 Unit Transfusion Start Date/Time: Comment: Performed By: #### TROPN ### # [facility] [place] [address] [address] [place], [place] pheresis leuko reduced on 2019-08-18 Pheresis Leuko PATHOGEN REDUCED LR PPHR: Normal 08-18-2019 [facility] Reduced [id number] transfused 08/18/19 04:32 [facility] System () Unit Blood Type: AB Unit Blood Rh: NEG Blood Product Code: PR2 Unit Number: [id number] Unit Status: transfused Barcoded Unit Number: =[id number] Barcoded Product Code: = Barcoded ABO/Rh: =%2800 Unit Expiration: Unit Volume Transfused: 300 Unit Transfusion Start Date/Time: Comment: Performed By: #### TROPN ### # [place] [address] [address] [place], [place] magnesium on 08 Magnesium [Mass/Vol] 2.0 1.6-2.3 mg/dL Normal 0 [facility] (94006) Comment: Performed By: #### CXTIS ### # [place] [address] [address] [place] [facility] [place] #### C/MICAELA #### [place] [address] [address] [place] leukodepleted red cells on 2019-08-18 Leukodepleted Red Leukodepleted Red Cells: Normal 08-18-2019 [facility] Cells [id number] transfused 08/18/19 00:43 [facility] System (21408) Unit Blood Type: B Unit Blood Rh: POS Blood Product Code: AS1 Unit Number: [id number] Unit Status: transfused Barcoded Unit Number: =[id number] Barcoded Product Code: = Barcoded ABO/Rh: =%7300 Unit Expiration: Unit Volume Transfused: 300 Unit Transfusion Start Date/Time: Leukodepleted Red Cells: [id number] transfused 08/17/19 23:15 [facility]2 Unit Blood Type: B Unit Blood Rh: POS Blood Product Code: AS1 Unit Number: [id number] Unit Status: transfused Barcoded Unit Number: =[id number] Barcoded Product Code: = Barcoded ABO/Rh: =%7300 Unit Expiration: Unit Volume Transfused: 300 Unit Transfusion Start Date/Time: Comment: Performed By: #### TROPN ### # [facility] [address] [place], [place] hemogram w/ autodiff on 2019-08-18 Abs Baso Cnt 0.0 0.0-0.2 10*3/uL Normal 08-18-2019 [facility] (83036) Comment: Performed By: #### HEMDF, BM P3, MG3 ####[facility] [address] [place], [place] Abs Neutrophile Cnt 5.8 1.8-7.0 10*3/uL Normal 08-18-2019 [facility] (56651) Comment: Performed By: #### HEMDF, BM P3, MG3 ####[facility] [address] [place], [place] Basophils/100 WBC (Bld) 0.2 0.0-2.0 % Normal 2019 [facility] (22189) Comment: Performed By: #### HEMDF, BM P3, MG3 ####[facility] [address] [place], [place] Eosinophils (Bld) [#/Vol] 0.0 0.0-0.5 10*3/uL Normal 03-0 [facility] (67649) Comment: Performed By: #### HEMDF, BM P3, MG3 ####[address] Eosinophils/100 WBC (Bld) 0.1 1.0-6.0 % Low 03-0 [facility] (79537) Comment: Performed By: #### HEMDF, BM P3, MG3 ####[address] Erythrocyte distribution 13.4 11.5-14.5 % Normal 08-17 [facility] width (RBC) [Ratio] (64185) Comment: Performed By: #### HEMDF, BM P3, MG3 ####[address] Granulocytes/100 WBC (Bld) 79.7 40.0-80.0 % Normal [facility] (66811) Comment: Performed By: #### HEMDF, BM P3, MG3 ####[address] Hematocrit (Bld) [Volume 22.9 35.0-47.0 % Low 08-17 [facility] System fraction] (86149) Comment: Performed By: #### HEMDF, BM P3, MG3 ####[address] Hemoglobin (Bld) [Mass/Vol] 7.9 11.7-16.0 g/dL Low [facility] (68477) Comment: Performed By: #### HEMDF, BM P3, MG3 ####[address] Lymphocytes (Bld) [#/Vol] 0.7 1.0-4.3 10*3/uL Low 03-0 [facility] (82635) Comment: Performed By: #### HEMDF, BM P3, MG3 ####[address] [place] Lymphocytes/100 WBC (Bld) 10.0 20.0-40.0 % Low 03-0 [facility] (64576) Comment: Performed By: #### HEMDF, BM P3, MG3 ####[address] MCH (RBC) [Entitic mass] 30.6 26.0-34.0 pg Normal 08-17 [facility] (43406) Comment: Performed By: #### HEMDF, BM P3, MG3 ####[address] MCHC (RBC) [Mass/Vol] 34.5 32.0-36.0 % Normal 08-18-19 [facility] (25116) Comment: Performed By: #### HEMDF, BM P3, MG3 ####[address] MCV (RBC) [Entitic vol] 88.6 79.0-98.0 fL Normal 2019 [facility] (07859) Comment: Performed By: #### HEMDF, BM P3, MG3 ####[address] Monocytes (Bld) [#/Vol] 0.7 0.0-0.8 10*3/uL Normal 2019 [facility] (96697) Comment: Performed By: #### HEMDF, BM P3, MG3 ####[address] Monocytes/100 WBC (Bld) 10.0 2.0-10.0 % Normal 2019 [facility] (67893) Comment: Performed By: #### HEMDF, BM P3, MG3 ####[address] Platelet mean volume (Bld) 7.8 7.4-10.4 fL Normal [facility] [Entitic vol] (30296 ) Comment: Performed By: #### HEMDF, BM P3, MG3 ####[facility] [address] [place], [place] Platelets (Bld) [#/Vol] 188 140-440 10*3/uL Normal 2019 [facility] (78612) Comment: Performed By: #### HEMDF, BM P3, MG3 ####[facility] [address] [place], [place] RBC (Bld) [#/Vol] 2.59 3.80-5.20 10*6/uL Low 08-18-2019 S [facility] (20492) Comment: Performed By: #### HEMDF, BM P3, MG3 ####[facility] [address] [place], [place] WBC (Bld) [#/Vol] 7.3 3.6-10.7 10*3/uL Normal 08-18-2019 [facility] (85323) Comment: Performed By: #### HEMDF, BM P3, MG3 ####[facility] [address] [place], [place] hemoglobin and hematocrit on 2019-08-18 Hematocrit (Bld) [Volume 26.7 % Low 08-17 [place] ([address]) fraction] Comment: Performed By: #### CXTIS ### # [facility] [address] [place] [facility] [address] [place], [place] #### C/MICAELA #### [facility] [address] [place], [place] Hemoglobin (Bld) [Mass/Vol] 9.4 g/[place] ([address]) Comment: Performed By: #### CXTIS ### # [facility] [address] [place] [facility] [address] [place] #### C/MICAELA #### [facility] [address] [place], [place] Hematocrit (Bld) [Volume 17.6 35.0-47.0 % Low 08-17 [facility] fraction] (51241) Comment: Performed By: #### HGHCT ### #[facility] [address] [place], [place] Hemoglobin (Bld) 6.1 11.7-16.0 g/dL Critically low 08-18-19 [facility] [Mass/Vol] System (0 0000) Comment: Performed By: #### HGHCT ### #[facility] [place], [place] basic metabolic panel on 2019-08-18 Anion gap [Moles/Vol] 7 Normal 08-18-19 [facility] (65695) Comment: Performed By: #### CXTIS ### # [facility] [address] [place], [place] [facility] [address] [place], [place] #### C/MICAELA #### [facility] [address] [place] Calcium [Mass/Vol] 8.4 8.4-10.4 mg/dL Normal 08-18-2019 [facility] (08258) Comment: Performed By: #### CXTIS ### # [facility] [address] [place], [place] [facility] [address] [place], [place] #### C/MICAELA #### [facility] [address] [place], [place] CO2 [Moles/Vol] 27 22-30 mmol/L Normal 08-18-2019 [facility] (62767) Comment: Performed By: #### CXTIS ### # [facility] [address] [place] [facility] [address] [place], [place] #### C/MICAELA #### [facility] [address] [place], [place] Creatinine [Mass/Vol] 0.52 0.52-1.25 mg/dL Normal 08-18-19 20 [facility] (02820) Comment: Performed By: #### CXTIS ### # [facility] [address] [place], [place] [facility] [address] [place] #### C/MICAELA #### [facility] [address] [place], [place] GFR/1.73 sq M > 60.0 >60 mL/min/{1.73_m2} Normal 0 [facility] predicted among Syst em (15996) blacks MDRD (S/P/Bld) [Vol rate/Area] Comment: Performed By: #### CXTIS ### # [facility] [address] [place], [place] [facility] [address] [place], [place] #### C/MICAELA #### [facility] [address] [place], [place] GFR/1.73 sq M > 60.0 >60 mL/min/{1.73_m2} Normal 0 [facility] predicted among Syst em (07823) non-blacks MDRD (S/P/Bld) [Vol rate/Area] Comment: Result Comment: Source- MDRD equation with creatinine calibration to IDMS(NKDEP) eGFR not recommended for nicolas g dose adjustment Performed By: #### CXTIS ### # [facility] [address] [place], [place] [facility] [address] [place], [place] #### C/MICAELA #### [facility] [address] [place], [place] Glucose [Mass/Vol] 95 70-100 mg/dL Normal 08-18-2019 [facility] (33195) Comment: Performed By: #### CXTIS ### # [facility] [address] [place], [place] [facility] [address] [place] #### C/MICAELA #### [facility] [address] [place], [place] Urea nitrogen [Mass/Vol] 13 7-20 mg/dL Normal 08-17 [facility] (94349) Comment: Performed By: #### CXTIS ### # [facility] [address] [place] [facility] [address] [place] #### C/MICAELA #### [facility] [address] [place] Chloride [Moles/Vol] 100 98-107 mmol/L Normal 0 [facility] (27123) Comment: Performed By: #### EDERTIS ### # [facility] [address] [place] [facility] [address] [place] #### C/MICAELA #### [facility] [address] [place], [place] Potassium [Moles/Vol] 3.9 3.5-5.1 mmol/L Normal 08-18-19 [facility] (37342) Comment: Performed By: #### EDERTIS ### # [facility] [address] [place], [place] [facility] [address] #### C/MICAELA #### [facility] [address], [place] Sodium [Moles/Vol] 134 135-145 mmol/L Low 08-18-2019 [facility] (91472) Comment: Performed By: #### CXTIS ### # [facility] [address], [place] [facility] [address] #### C/MICAELA #### [facility] [address], [place] No panel information on 2019-08-18 Interpretation and Abnormal 08-18-2019 [facility]- review of laboratory [place], [place] ([address]) results Test Performed by 08-18-2019 [place] ([address]) [facility], [address] [place] [address] Anion gap [Moles/Vol] 7 mmol/L 08-18-19 20 [place], [place] (62 [address]) Calcium [Mass/Vol] 8.4 8.4 - 10.4 mg/dL 08-18-2019 [place] (77 [address]) Chloride [Moles/Vol] 100 98 - 107 mmol/L 0 [place] (70 [address]) CO2 [Moles/Vol] 27 22 - 30 mmol/L 08-18-2019 [place], [place] (65 [address]) Creatinine [Mass/Vol] 0.52 0.52 - 1.25 mg/dL 2019 [place], [place] ([address]) EGFR IF NonAfrican >60.0 >60 mL/min 08-18-2019 [place], [place] ([address]) Comment: Source- MDRD equation with c reatinine calibration to IDMS(NKDEP) eGFR not recommended for nicolas g dose adjustment GFR/1.73 sq M >60.0 >60 mL/min/{1.73_m2} 0 [facility] predicted among mL/min [facility] [place] (S/P/Bld) [Vol (5723 7) rate/Area] Glucose [Mass/Vol] 95 70 - 100 mg/dL 08-18-2019 [place] ([address]) Interpretation and Abnormal 08-18-2019 [facility] review of [facility]- laboratory [place] ([address]) Magnesium 2.0 1.6 - 2.3 mg/dL 08-18-2019 [facility] [Mass/Vol] [place] ([address]) Potassium 3.9 3.5 - 5.1 mmol/L 08-18-2019 [facility] [Moles/Vol] [place] ([address]) Sodium [Moles/Vol] 134 135 - 145 mmol/L Low 08-18-2019 [place] ([address]) Urea nitrogen 13 7 - 20 mg/dL 08-18-2019 [facility] [Mass/Vol] [place] ([address]) Test Performed 08-18-2019 [facility] by [facility], [address] [facility], ([address]) ANJEL Byrne [address] Absolute Baso # 0.0 0 - 0.2 10*3/uL 08-18-2019 [place] ([address]) Absolute Neut # 5.8 1.8 - 7 10*3/uL 08-18-2019 [place] ([address]) Basophils/100 WBC 0.2 0 - 2 % 08-18-2019 M [facility] (Bld) [place] ([address]) Eosinophils (Bld) 0.0 0 - 0.5 10*3/uL 08-18-2019 M ercy [#/Vol] [place] ([address]) Eosinophils/100 0.1 1 - 6 % Low 08-18-2019 [facility] WBC (Bld) [place] ([address]) Erythrocyte 13.4 11.5 - % 08-18-2019 [facility] distribution width 14.5 H ealth- (RBC) [Ratio] [place] ([address]) Granulocytes/100 79.7 40 - 80 % 08-18-2019 Me [facility]cy WBC (Bld) [place] ([address]) Hematocrit (Bld) 22.9 35 - 47 % Low 08-18-2019 Me [facility] [Volume fraction] [place] ([address]) Hemoglobin (Bld) 7.9 11.7 - 16 g/dL Low 08-18-2019 Me [facility]cy [Mass/Vol] [place] ([address]) Interpretation and Abnormal 08-18-2019 [facility] review of [facility]- [place] ([address]) Lymphocytes (Bld) 0.7 1 - 4.3 10*3/uL Low 08-18-2019 M ercy [#/Vol] [place] ([address]) Lymphocytes/100 10.0 20 - 40 % Low 08-18-2019 [facility] WBC (Bld) [place] ([address]) MCH (RBC) [Entitic 30.6 26 - 34 pg 08-18-2019 [facility] mass] [place] ([address]) MCHC (RBC) 34.5 32 - 36 % 08-18-2019 [facility] [Mass/Vol] [place] ([address]) MCV (RBC) [Entitic 88.6 79 - 98 fL 08-18-2019 [facility] vol] [place] ([address]) Monocytes (Bld) 0.7 0 - 0.8 10*3/uL 08-18-2019 Dora [place] [#/Vol] [place] ([address]) Monocytes/100 WBC 10.0 2 - 10 % 08-18-2019 M ercy (Bld) [place] ([address]) Platelet mean 7.8 7.4 - fL 08-18-2019 [facility] volume (Bld) 10.4 [facility] [Entitic vol] [place] ([address]) Platelets (Bld) 188 140 - 440 10*3/uL 08-18-2019 Dora [place] [#/Vol] [place] ([address]) RBC (Bld) [#/Vol] 2.59 3.8 - 5.2 10*6/uL Low 08-18-2019 [place] ([address]) WBC (Bld) [#/Vol] 7.3 3.6 - 10*3/uL 08-18-2019 M ercy 10.7 [place] ([address]) Test Performed 08-18-2019 [facility] by [facility], [address] [place] [address], ([address]) [place] [address] ABO and Rh group 2800 08-18-2019 Id rcy Nom (Bld) [place] ([address]) Blood product unit [id number] 020 [facility] ID (Dose) [#] [place] ([address]) Sodium [Moles/Vol] transfused 08-18-2019 [place] ([address]) Sodium [Moles/Vol] [id number] 08-18-2019 [place] ([address]) Sodium [Moles/Vol] 331335536663 mmol/L 08-18-19 20 [place] ([address]) 08-18-2019 [place] ([address]) ABO and Rh group 7300 08-18-2019 Id rcy Nom (Bld) [place] ([address]) ABO and Rh group 1700 08-18-2019 Id rcy Nom (Bld) [place] ([address]) Blood product unit [id number] [facility] ID (Dose) [#] [place] ([address]) Blood product unit [id number] [facility] ID (Dose) [#] [place] ([address]) Sodium [Moles/Vol] [id number] mmol/L 08-18-19 [place] ([address]) Sodium [Moles/Vol] transfused 08-18-2019 [place] ([address]) Sodium [Moles/Vol] [id number] 08-18-2019 [place] ([address]) 08-18-2019 [place] ([address]) vancomycin trough o n 2019-08-17 Vancomycin Trough 11.7 15.0-20.0 ug/mL Low 08-17-2019 [facility] (80237) Comment: Result Comment: . Performed By: #### VANCT ### #[facility] [address] [place] renal function on Calcium [Mass/Vol] 8.8 8.4-10.4 mg/dL Normal 08-17-2019 [facility] (91279) Comment: Performed By: #### HEMDF, RE NL3, MG3 ####[address] [place], [place] Glucose [Mass/Vol] 127 70-100 mg/dL High 08-17-2019 [facility] (31741) Comment: Performed By: #### HEMDF, RE NL3, MG3 ####[address] [place], [place] Phosphate [Mass/Vol] 3.8 2.5-4.5 mg/dL Normal 0 [facility] (07694) Comment: Performed By: #### HEMDF, RE NL3, MG3 ####[employer] [facility] [address] [place], [place] Anion gap [Moles/Vol] 10 Normal 08-17-19 [facility] (16402) Comment: Performed By: #### HEMDF, RE NL3, MG3 ####[facility] [address] [place], [place] CO2 [Moles/Vol] 25 22-30 mmol/L Normal 08-17-2019 [facility] (01749) Comment: Performed By: #### HEMDF, RE NL3, MG3 ####[facility] [address] [place], [place] Creatinine [Mass/Vol] 0.58 0.52-1.25 mg/dL Normal 08-17-19 [facility] (43054) Comment: Performed By: #### HEMDF, RE NL3, MG3 ####[facility] [address] [place], [place] GFR/1.73 sq M > 60.0 >60 mL/min/{1.73_m2} Normal 0 [facility] predicted among Syst em (25627) blacks MDRD (S/P/Bld) [Vol rate/Area] Comment: Performed By: #### HEMDF, RE NL3, MG3 ####[facility] [address] [place], [place] GFR/1.73 sq M > 60.0 >60 mL/min/{1.73_m2} Normal 0 [facility] predicted among Syst em (61545) non-blacks MDRD (S/P/Bld) [Vol rate/Area] Comment: Result Comment: Source- MDRD equation with creatinine calibration to IDMS(NKDEP) eGFR not recommended for nicolas g dose adjustment Performed By: #### HEMDF, RE NL3, MG3 ####[employer] [address] [place], [place] Urea nitrogen [Mass/Vol] 15 7-20 mg/dL Normal 08-16 [facility] (38498) Comment: Performed By: #### HEMDF, RE NL3, MG3 ####[facility] [address] [place] [address] Albumin [Mass/Vol] 3.5 3.5-5.0 g/dL Normal 08-17-2019 [facility] (81262) Comment: Performed By: #### HEMDF, RE NL3, MG3 ####[facility] [address] [place], [place] Chloride [Moles/Vol] 98 98-107 mmol/L Normal 0 [facility] (90941) Comment: Performed By: #### HEMDF, RE NL3, MG3 ####[facility] [address] [place], [place] Potassium [Moles/Vol] 4.3 3.5-5.1 mmol/L Normal 08-17-19 20 [facility] (38292) Comment: Performed By: #### HEMDF, RE NL3, MG3 ####[facility] [address] [place], [place] Sodium [Moles/Vol] 133 135-145 mmol/L Low 08-17-2019 [facility] (35603) Comment: Performed By: #### HEMDF, RE NL3, MG3 ####[facility] [address] [place], [place] op note on Op Note [facility] Normal 03-0 [facility] (67151) [address] [address] Dept: [phone] Loc: [phone] Operative Report Patient Name: Denys Arriola Date of : 1985 Date of Surgery: 08/17/19 Location: [facility] Preoperative Diagnosis: 1. 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 ALT free flap from Right thigh to LLE 2. placement of bone cement Surgeon: Jesse Burnham MD 1st Assist: Mehreen PGY 8 2nd Assist: Wild PGY 6 Implants: 2mm & 2.5 mm switchboard operator, Pallikos bone cement with 3 G Vancomycin [...] patient's ASA was verified by the nurse cis coordinator and the anesthesia staff. Fire risk was assessed. The anterior incision was made over the rectus femoris. This incison was carried to the fascia level and the subfascial place was the n entered and elevated laterally exposing both the distal fat stripe mar elmira the interval between the Vastus Lateralis and the Rectus Femoris. A assistant press operator offset was identified along the axis corresponding to the preoperatively marked si gnal. This was circumferentially dissected. The entirety of the medial inci petrona was then completed and the subfascial dissection was continued. At th is point the lateral incision was made and the flap was isolated on its p erforator. The assistant press operator offset was then dissected cephalad and freed circu mferentially until the confluence of the transverse branch and the large branch to the rectus femoris. The isolated assistant press operator offset was very small and there was a large amount of subcutaneous fat. On initial dissection the pr eviously placed cement spacer completely fell out of the bone. I discussed this with the direct support professional orth opedic surgeon and as per our [...] even after a Blu with a 3 Maori and 2 Maori Fog arty were passed, the greater saphenous [...] heparin saline. Then using a 2 mm switchboard operator these were anast omosed. Attention was then [...] skin closure, the due to the single assistant press operator offset I do not feel comfortable doing that [...] Magnesium [Mass/Vol] 1.4 1.6-2.3 mg/dL Low 0 [facility] (98133) Comment: Performed By: #### HEMDF, RE NL3, MG3 ####[facility] [address] [place], [place] hemogram on 2019-08 Erythrocyte distribution 13.8 11.5-14.5 % Normal 08-16 [facility] width (RBC) [Ratio] (32489) Comment: Performed By: #### TROPN ### # [facility] [address] [place], [place] Hematocrit (Bld) [Volume 32.2 35.0-47.0 % Low 08-16 [facility] System fraction] (90407) Comment: Performed By: #### TROPN ### # [facility] [address] [place] [address] Hemoglobin (Bld) [Mass/Vol] 10.9 11.7-16.0 g/dL Low [facility] (00511) Comment: Performed By: #### TROPN ### # [facility] [address] [place], [place] MCH (RBC) [Entitic mass] 30.0 26.0-34.0 pg Normal 08-16 [facility] (26787) Comment: Performed By: #### TROPN ### # [facility] [address], [place] MCHC (RBC) [Mass/Vol] 33.8 32.0-36.0 % Normal 08-17-19 20 [facility] (58087) Comment: Performed By: #### TROPN ### # [place] [address] [address], [place] MCV (RBC) [Entitic vol] 88.6 79.0-98.0 fL Normal 2019 [facility] (25119) Comment: Performed By: #### TROPN ### # [place] [address] [address] [place], [place] Platelet mean volume (Bld) 8.0 7.4-10.4 fL Normal [facility] [Entitic vol] (58065 ) Comment: Performed By: #### TROPN ### # [place] [address] [address] [place], [place] Platelets (Bld) [#/Vol] 282 140-440 10*3/uL Normal 2019 [facility] (93903) Comment: Performed By: #### TROPN ### # [place] [address] [address] [place], [place] RBC (Bld) [#/Vol] 3.63 3.80-5.20 10*6/uL Low 08-17-2019 [facility] (44407) Comment: Performed By: #### TROPN ### # [place] [address] [address] [place], [place] WBC (Bld) [#/Vol] 8.5 3.6-10.7 10*3/uL Normal 08-17-2019 [facility] (32601) Comment: Performed By: #### TROPN ### # [place] [address] [address] [place], [place] hemogram w/ autodiff on 2019-08-17 Abs Baso Cnt 0.0 0.0-0.2 10*3/uL Normal 08-17-2019 [facility] (23877) Comment: Performed By: #### HEMDF, RE NL3, MG3 ####[facility] [address] [place], [place] Abs Neutrophile Cnt 15.4 1.8-7.0 10*3/uL High 08-17-2019 [facility] (18497) Comment: Performed By: #### HEMDF RE NL3, MG3 ####[facility] [address] [place], [place] Basophils/100 WBC (Bld) 0.1 0.0-2.0 % Normal 2019 [facility] (64057) Comment: Performed By: #### HEMDF RE NL3, MG3 ####[place] [id number] . [place], [place] Eosinophils (Bld) [#/Vol] 0.0 0.0-0.5 10*3/uL Normal [facility] (47189) Comment: Performed By: #### HEMOLAYINKA RE NL3, MG3 ####[facility] [address] [place], [place] Eosinophils/100 WBC (Bld) 0.0 1.0-6.0 % Low [facility] (29441) Comment: Performed By: #### HEMOLAYINKA RE NL3, MG3 ####[address] [place], [place] Erythrocyte distribution 13.2 11.5-14.5 % Normal 08-16 [facility] width (RBC) [Ratio] (08711) Comment: Performed By: #### HEMDF, RE NL3, MG3 ####[facility] [address] . [place], [place] Granulocytes/100 WBC (Bld) 92.7 40.0-80.0 % High [facility] (60837) Comment: Performed By: #### HEMDF, RE NL3, MG3 ####[facility] [address] . [place], [place] Hematocrit (Bld) [Volume 22.4 35.0-47.0 % Low 08-16 [facility] fraction] (64880) Comment: Performed By: #### HEMOLAYINKA RE NL3, MG3 ####[address] Hemoglobin (Bld) [Mass/Vol] 7.5 11.7-16.0 g/dL Low [facility] (82888) Comment: Performed By: #### HEMOLAYINKA RE NL3, MG3 ####[address] Lymphocytes (Bld) [#/Vol] 0.6 1.0-4.3 10*3/uL Low [facility] (52712) Comment: Performed By: #### HEMOLAYINKA RE NL3, MG3 ####[address] Lymphocytes/100 WBC (Bld) 3.7 20.0-40.0 % Low 0 [facility] (58658) Comment: Performed By: #### HEMOLAYINKA RE NL3, MG3 ####[address] MCH (RBC) [Entitic mass] 29.5 26.0-34.0 pg Normal 08-16 [facility] (20819) Comment: Performed By: #### HEMOLAYINKA RE NL3, MG3 ####[address] MCHC (RBC) [Mass/Vol] 33.8 32.0-36.0 % Normal 08-17-19 [facility] (03722) Comment: Performed By: #### HEMDF RE NL3, MG3 ####[address] MCV (RBC) [Entitic vol] 87.4 79.0-98.0 fL Normal 2019 [facility] (43999) Comment: Performed By: #### HEMDF RE NL3, MG3 ####[facility] [address] [place], [place] Monocytes (Bld) [#/Vol] 0.6 0.0-0.8 10*3/uL Normal 2019 [facility] (43051) Comment: Performed By: #### HEMDF, RE NL3, MG3 ####[facility] [address] [place], [place] Monocytes/100 WBC (Bld) 3.5 2.0-10.0 % Normal 2019 [facility] (02531) Comment: Performed By: #### HEMDF, RE NL3, MG3 ####[facility] [address] [place], [place] Platelet mean volume (Bld) 7.7 7.4-10.4 fL Normal [facility] [Entitic vol] (19175 ) Comment: Performed By: #### HEMDF, RE NL3, MG3 ####[facility] [address] [place], [place] Platelets (Bld) [#/Vol] 265 140-440 10*3/uL Normal 2019 [facility] (09015) Comment: Performed By: #### HEMDF, RE NL3, MG3 ####[facility] [address] [place], [place] RBC (Bld) [#/Vol] 2.56 3.80-5.20 10*6/uL Low 08-17-2019 [facility] (09281) Comment: Performed By: #### HEMDF, RE NL3, MG3 ####[facility] [address] [facility], [place] WBC (Bld) [#/Vol] 16.6 3.6-10.7 10*3/uL High 08-17-2019 [facility] (85321) Comment: Performed By: #### HEMDF, RE NL3, MG3 ####[facility] [address] [place], [place] culture and stain - tissue on 2019-08-17 CULTURE AND STAIN STAIN GRAM --> Status: F Normal 08-17-2019 [facility] - TISSUE Few polymorphonuclear cells/lpf. System (62852) No organisms seen. No organisms seen. 1 Organism Corynebacterium striatum Few Possible identification For identification and/or sensitivity, refer to culture collected on: 08/14/2019 at 08:15 ([id number]). Comment: Order Comment: Specimen cat ected in O.R. Performed By: #### Alla HILLS/ MICAELA #### [facility] [address] [place] [address] CULTURE AND STAIN STAIN GRAM --> Status: F Normal 08-17-2019 [facility] - TISSUE Few polymorphonuclear cells/lpf. System (30621) No organisms seen. No organisms seen. 1 Organism Corynebacterium striatum Rare Possible identification For identification and/or sensitivity, refer to culture collected on: 08/14/2019 at 08:15 ([id number]). Comment: Order Comment: Specimen cat ected in O.R. Performed By: #### Alla HILLS/ MICAELA #### [facility] [address] [place] [address] CULTURE STAIN GRAM --> Status: F Normal 08-16 [facility] AND Few polymorphonuclear cells/lpf. Health STAIN - No organisms seen. S ystem TISSUE No organisms seen. ( 02684) 1 Organism Corynebacterium striatum Few Possible identification 1 Organism Antibiotic Result Intrp Ceftriaxone(BP) > 32 R Penicillin(BP) > 32 R Vancomycin(BP) = 0.50 S Comment: Order Comment: Specimen cat ected in O.R. Performed By: #### CXTIS ### # [facility] [address] [place] [address] [facility] [address] [place], [place] [id number] #### C/MICAELA #### [facility] [address] [place] [address] cr tibia/fibula 2 views bilateral on 2019-08-17 CR Tibia/Fibula 2 Patient Name: DENYS ARRIOLA mal 08-17-2019 [facility] Views Bilateral System (62232) Diagnostic Radiology Exam Date/Time 08/17/2019 14:30:00 EST Exam CR Tibia/Fibula 2 Views Bilateral Ordering Physician MD BURNHAM DYLAN R Accession Number [id number] CPT4 Codes 24375 () Reason For Exam incorrect count in [...] View Patient Name: DENYS ARRIOLA l 08-17-2019 [facility] System Right (76518 ) Diagnostic Radiology Exam Date/Time 08/17/2019 14:30:00 EST Exam CR Femur 1 View Right n Ordering Physician MD BURNHAM DYLAN R Accession Number [id number] CPT4 Codes 57070 () Reason For Exam incorrect count in [...] 3+ Views Patient Name: DENYS ARRIOLA 08-17-2019 [facility] Left (60917 ) Diagnostic Radiology Exam Date/Time 08/17/2019 18:42:14 EST Exam CR Ankle 3+ Views Left Ordering Physician STEVEN KNUTSON Accession Number [id number] CPT4 Codes 45633 () Reason For Exam post op ankle [...] 2019-08-17 Anion gap [Moles/Vol] 6 Normal 08-17-19 [facility] (73459) Comment: Performed By: #### TROPN ### # [facility] [address] [place] [address] Calcium [Mass/Vol] 8.7 8.4-10.4 mg/dL Normal 08-17-2019 [facility] (13456) Comment: Performed By: #### TROPN ### # [facility] [address] [place] [address] CO2 [Moles/Vol] 26 22-30 mmol/L Normal 08-17-2019 [facility] (26054) Comment: Performed By: #### TROPN ### # [facility] [address] [place] [address] Glucose [Mass/Vol] 97 70-100 mg/dL Normal 08-17-2019 [facility] (76881) Comment: Performed By: #### TROPN ### # [facility] [address] [place] [address] Urea nitrogen [Mass/Vol] 26 7-20 mg/dL High 08-16 [facility] (80164) Comment: Performed By: #### TROPN ### # [facility] [address] [place] [address] Creatinine [Mass/Vol] 0.63 0.52-1.25 mg/dL Normal 08-17-19 20 [facility] (67865) Comment: Performed By: #### TROPN ### # [facility] [address] [place] [address] GFR/1.73 sq M > 60.0 >60 mL/min/{1.73_m2} Normal 0 [facility] predicted among Syst em (05666) blacks MDRD (S/P/Bld) [Vol rate/Area] Comment: Performed By: #### TROPN ### # [facility] [address] [place] [address] GFR/1.73 sq M > 60.0 >60 mL/min/{1.73_m2} Normal 0 [facility] predicted among Syst em (10235) non-blacks MDRD (S/P/Bld) [Vol rate/Area] Comment: Result Comment: Source- MDRD equation with creatinine calibration to IDMS(NKDEP) eGFR not recommended for nicolas g dose adjustment Performed By: #### TROPN ### # [facility] [address] [place] [address] Chloride [Moles/Vol] 104 98-107 mmol/L Normal 0 [facility] (26280) Comment: Performed By: #### TROPN ### # [facility] [address] [place], [place] Potassium [Moles/Vol] 4.3 3.5-5.1 mmol/L Normal 08-17-19 20 [facility] (84360) Comment: Performed By: #### TROPN ### # [facility] [address] [place], [place] Sodium [Moles/Vol] 136 135-145 mmol/L Normal 08-17-2019 [facility] (64303) Comment: Performed By: #### TROPN ### # [facility] [address] [place], [place] No panel information on 2019-08-17 ABO and Rh group 7300 08-17-2019 Id rcy Nom (Bld) [place] ([address]) Blood product unit [id number] [id number] [facility] ID (Dose) [#] [place] ([address]) Blood product unit [id number] 020 [facility] ID (Dose) [#] [place] ([address]) Sodium [Moles/Vol] [id number] mmol/ 08-17-19 20 [place] ([address]) Sodium [Moles/Vol] transfused 08-17-2019 [place], [place] ([address]) Sodium [Moles/Vol] [id number] 08-17-2019 [place] ([address]) Sodium [Moles/Vol] 092674573307 mmol/ 03-07-20 20 [place] ([address]) 08-17-2019 [place] ([address]) Hematocrit (Bld) 17.6 35 - 47 % Low 08-17-2019 Me [place] [Volume fraction] [place] ([address]) Hemoglobin (Bld) 6.1 11.7 - g/dL Critically low 08-17-19 20 [facility] [Mass/Vol] [address] [place] ([address]) Interpretation and Abnormal 08-17-2019 [facility] review of [facility] , laboratory results K Y (22971) Test Performed by 08-17-2019 [facility], [address]) [place] [address] Albumin [Mass/Vol] 3.5 3.5 - 5 g/dL 08-17-2019 [place] ([address]) Anion gap 10 mmol/ 08-17-2019 [facility] [Moles/Vol] [place] ([address]) Calcium [Mass/Vol] 8.8 8.4 - mg/dL 08-17-2019 [facility] [address] [place] ([address]) Chloride 98 98 - 107 mmol/ 08-17-2019 [facility] [Moles/Vol] [place] ([address]) CO2 [Moles/Vol] 25 22 - 30 mmol/ 08-17-2019 [place] ([address]) Creatinine 0.58 0.52 - mg/dL 08-17-2019 [facility] [Mass/Vol] [address] [place] ([address]) EGFR IF NonAfrican >60.0 >60 08-17-2019 [facility] Ivorian mL/[place] ([address]) Comment: Source- MDRD equation with c reatinine calibration to IDMS(NKDEP) eGFR not recommended for nicolas g dose adjustment GFR/1.73 sq M >60.0 >60 mL/min/{1.73_m2} 0 [facility] predicted among mL/min Heal th- blacks MDRD [place] (S/P/Bld) [Vol (4523 7) rate/Area] Glucose 127 70 - mg/dL High 08-17-2019 [facility] [Mass/Vol] [address] [place] ([address]) Interpretation Abnormal 08-17-2019 [facility] and review of Health - laboratory [place] results ([address]) Magnesium 1.4 1.6 - mg/dL Low 08-17-2019 [facility] [Mass/Vol] 2.3 [place] ([address]) Phosphate 3.8 2.5 - mg/dL 08-17-2019 [facility] [Mass/Vol] 4.5 [place] ([address]) Potassium 4.3 3.5 - mmol/L 08-17-2019 [facility] [Moles/Vol] 5.1 [place] ([address]) Sodium 133 135 - mmol/L Low 08-17-2019 [facility] [Moles/Vol] [address] [place] ([address]) Urea nitrogen 15 7 - 20 mg/dL 08-17-2019 [facility] [Mass/Vol] [place] ([address]) Test Performed by 08-17-2019 [facility], [facility] E. [place], [place] [facility], ( [address]) [place] [address] [facility] Incoming Radiology Results From [facility] - 2019 7:02 PM EST 08-17-2019 [place] Patient Name: DENYS ARRIOLA ([id number]) ---Diagnostic Radiology--- Exam Date/Time 08/17/2019 18:42:14 EST Exam CR Ankle 3+ Views Left Ordering Physician STEVEN KNUTSON Accession Number [id number] CPT4 Codes 18171 () Reason For Exam post op ankle [...] 08-17-2019 DENYS Sargent - Eliana HOBBS ( [id number]) ---Diagnostic Radiology--- Exam Date/Time 08/17/2019 18:42:14 EST Exam CR Ankle 3+ Views Left Ordering Physician STEVEN KNUTSON Accession Number [id number] CPT4 Codes 73855 () Reason For Exam post op ankle [...] 0.0 0 - 0.2 10*3/uL 08-17-2019 [place] ([address]) Absolute Neut # 15.4 1.8 - 7 10*3/uL High 08-17-2019 [place] ([address]) Basophils/100 0.1 0 - 2 % [facility]Bld[facility] [place] ([address]) Eosinophils 0.0 0 - 0.5 10*3/uL 08-17-2019 [facility] (Bld) [#/Vol] [place] ([address]) Eosinophils/100 0.0 1 - 6 % Low 08-17-2019 [facility] WBC (Bld) [place] ([address]) Erythrocyte 13.2 11.5 - % 08-17-2019 [facility] distribution 14.5 Health- width (RBC) [place] [Ratio] ([address]) Granulocytes/10 92.7 40 - 80 % High 08-17-2019 [place] 0 WBC (Bld) [place] ([address]) Hematocrit 22.4 35 - 47 % Low 08-17-2019 [facility] (Bld) [Volume Health - fraction] [place] ([address]) Hemoglobin 7.5 11.7 - g/dL Low 08-17-2019 [facility] (Bld) 16 Health- [Mass/Vol] [place] ([address]) Interpretation Abnormal 08-17-2019 [facility] and review of Health - laboratory [place] results ([address]) Lymphocytes 0.6 1 - 4.3 10*3/uL Low 08-17-2019 [facility] (Bld) [#/Vol] [place] ([address]) Lymphocytes/100 3.7 20 - 40 % Low 08-17-2019 [facility] WBC (Bld) [place] ([address]) MCH (RBC) 29.5 26 - 34 pg 08-17-2019 [facility] [Entitic mass] [place] ([address]) MCHC (RBC) 33.8 32 - 36 % 08-17-2019 [facility] [Mass/Vol] [place] ([address]) MCV (RBC) 87.4 79 - 98 fL 08-17-2019 [facility] [Entitic vol] [place] ([address]) Monocytes (Bld) 0.6 0 - 0.8 10*3/uL 08-17-2019 [facility] [#/Vol] [place] ([address]) Monocytes/100 3.5 2 - 10 % 08-17-2019 [facility] WBC (Bld) [place] ([address]) Platelet mean 7.7 7.4 - fL 08-17-2019 [facility] volume (Bld) 10.4 [facility] [Entitic vol] [place] ([address]) Platelets (Bld) 265 140 - 10*3/uL 08-17-2019 [place] [#/Vol] [address] [place] ([address]) RBC (Bld) 2.56 3.8 - 10*6/uL Low 08-17-2019 [facility] [#/Vol] 5.2 [place] ([address]) WBC (Bld) 16.6 3.6 - 10*3/uL High 08-17-2019 [facility] [#/Vol] 10.7 [place] ([address]) Test Performed by 08-17-2019 [facility], [address] [place], [place] [facility], ( [address]) [place] [address] [facility], [facility]coming Radiology [facility] 5:08 PM EST 08-17-2019 [place] Patient Name: DENYS ARRIOLA ([id number]) ---Diagnostic Radiology--- Exam Date/Time 08/17/2019 14:30:00 EST Exam CR Tibia/Fibula 2 Views Bilateral Ordering Physician MD BURNHAM DYLAN R Accession Number [id number] CPT4 Codes 49086 () Reason For Exam incorrect count in [...] DENYS Sargent [facility]- [place] ( [id number]) ---Diagnostic Radiology--- Exam Date/Time 08/17/2019 14:30:00 EST Exam CR Tibia/Fibula 2 Views Bilateral Ordering Physician MD BURNHAM DYLAN R Accession Number [id number] CPT4 Codes 78574 () Reason For Exam incorrect count in [...] 08/17/2019 5:05 Patient Name: 08-17-2019 [facility] [place] ( [id number]) ---Diagnostic Radiology--- Exam Date/Time 08/17/2019 14:30:00 EST Exam CR Femur 1 View Right n Ordering Physician MD BURNHAM DYLAN R Accession Number [id number] CPT4 Codes 47268 () Reason For Exam incorrect count in [...] 5:03 [facility] Incoming Radiology Results From [facility] - 2019 5:06 PM EST 08-17-2019 [place] Patient Name: DENYS ARRIOLA ([id number]) ---Diagnostic Radiology--- Exam Date/Time 08/17/2019 14:30:00 EST Exam CR Femur 1 View Right n Ordering Physician MD BURNHAM DYLAN R Accession Number [id number] CPT4 Codes 76480 () Reason For Exam incorrect count in [...] 08-17-2019 [facility] [Relative time] [place] ([address]) Interpretation Abnormal 08-17-2019 [facility] and review of Health - laboratory [place] results ([address]) Tissue Few 08-17-2019 [facility] Cult/Smear, Aer Possible identification Health- For identification and/or sensitivity, refer to culture [place] collected on: 08/14/2019 at 08:15 ([id number]). (77125) Tissue Corynebacterium Abnormal 08-17-2019 [facility] Cult/Smear, [place] ([address]) Test Performed by 08-17-2019 [facility], [address] [place], [place] [facility], ( [address]) [place] [address] Specimen collected in O.R. INR Coag (Bld) Few polymorphonuclear cells/lpf. 08-17-2019 [facility] [Relative time] [place] ([address]) Interpretation Abnormal 08-17-2019 [facility] and review of Health - laboratory [place] results ([address]) Tissue Rare 08-17-2019 [facility] Cult/Smear, Aer Possible identification [facility] For identification and/or sensitivity, refer to culture [place] collected on: 08/14/2019 at 08:15 ([id number]). (04654) Tissue Corynebacterium Abnormal 08-17-2019 [facility] cy Cult/Smear, [place] ([address]) Test Performed by 08-17-2019 [facility], [address] [place], [email or web address], ( [address]) [place] [address] Specimen collected in O.R. INR Coag (Bld) Few polymorphonuclear cells/lpf. 08-17-2019 [facility] [Relative time] No organisms [place] ([address]) Interpretation Abnormal 08-17-2019 [facility] and review of Health - laboratory [place] results ([address]) Tissue Corynebacterium Abnormal 08-17-2019 [facility] cy Cult/Smear, [place] ([address]) Tissue Few 08-17-2019 [facility] Cult/Smear, Aer Possible identification [place] ([address]) Test Performed by 08-17-2019 [facility], [facility] E. [place], [email or web address] [facility], ( [address]) [place] [address] Specimen collected in O.R. Interpretation Abnormal 08-17-2019 [facility] and review of Health - laboratory [place] results ([address]) Vancomycin Tr 11.7 15 - 20 ug/mL Low 08-17-2019 [place] ([address]) Comment: . Test Performed by 08-17-2019 [place] ([address]) System, [address] [place] [address], [place] [address] Anion gap 6 mmol/L 08-17-2019 [facility] lt- [Moles/Vol] [place] ( [address]) Calcium [Mass/Vol] 8.7 8.4 - 10.4 mg/dL 08-17-2019 [place], [place] ([address]) Chloride 104 98 - 107 mmol/L 08-17-2019 [facility] lt- [Moles/Vol] [place] ( [address]) CO2 [Moles/Vol] 26 22 - 30 mmol/L 08-17-2019 [place] ([address]) Creatinine 0.63 0.52 - 1.25 mg/dL 08-17-2019 [facility] [Mass/Vol] [place], [place] ([address]) EGFR IF NonAfrican >60.0 >60 mL/min 08-17-2019 [facility], [place] ([address]) Comment: Source- MDRD equation with c reatinine calibration to IDMS(NKDEP) eGFR not recommended for nicolas g dose adjustment GFR/1.73 sq M >60.0 >60 mL/min mL/min/{1.73_m2} 08-17-19 20 [facility] predicted among [facility]- [place], [place] MDRD [place] (99[address] 7) (S/P/Bld) [Vol rate/Area] Glucose [Mass/Vol] 97 70 - 100 mg/dL 08-17-2019 [place] ([address]) Interpretation and Abnormal 08-17-2019 [facility] review of [facility] , laboratory results [place] ([address]) Potassium 4.3 3.5 - 5.1 mmol/L 08-17-2019 [facility] [Moles/Vol] [place] ([address]) Sodium [Moles/Vol] 136 135 - 145 mmol/L 08-17-2019 [place] ([address]) Urea nitrogen 26 7 - 20 mg/dL High 08-17-2019 [facility] [Mass/Vol] [place] ([address]) Test 08-17-2019 [facility] Performed by [facility] [place] ([address] 92) [address] [address] Erythrocyte 13.8 11.5 - % 08-17-2019 [facility] distribution width 14.5 [facility] (RBC) [Ratio] [place] (16 846) Hematocrit (Bld) 32.2 35 - 47 % Low 08-17-2019 [facility] [Volume fraction] [place] ([address]) Hemoglobin (Bld) 10.9 11.7 - 16 g/dL Low 08-17-2019 [facility] [Mass/Vol] [place] ([address]) Interpretation and Abnormal 08-17-2019 [facility] review of [facility] , laboratory results [place] ([address]) MCH (RBC) [Entitic 30.0 26 - 34 pg 08-17-2019 [facility] mass] [place] ([address]) MCHC (RBC) 33.8 32 - 36 % 08-17-2019 [facility] [Mass/Vol] [facility] MARLENY ([address]) MCV (RBC) [Entitic 88.6 79 - 98 fL 08-17-2019 [facility] vol] [place] ([address]) Platelet mean 8.0 7.4 - 10.4 fL 08-17-2019 [facility] volume (Bld) [facility], [Entitic vol] [place] (45 237) Platelets (Bld) 282 140 - 440 10*3/uL 08-17-2019 [facility] [#/Vol] [place] ([address]) RBC (Bld) [#/Vol] 3.63 3.8 - 5.2 10*6/uL Low 08-17-2019 [place] ([address]) WBC (Bld) [#/Vol] 8.5 3.6 - 10.7 10*3/uL 08-17-2019 [place] ([address]) Test 08-17-2019 [facility] Performed by [facility] (452 37) System, [address] [place] [address] ts gel on 6 TS GEL ABO Group: Normal 08-16-2019 [facility] [employer] System ([address]) B Rh, Gel: POS Antibody Screen Gel: NEG Comment: Performed By: #### TROPN ### # [facility] [address] [address] prothrombin time on 2019-08-16 INR Coag (PPP) [Relative 1.0 0.9-1.1 Normal 08-15 [facility] time] ([address]) Comment: Result Comment: Recommended Anticoagulant Therapy: SEE [...] Infarction Performed By: #### TROPN ### # [facility] [address] [place], [place] PT Coag (PPP) [Time] 10.4 9.0-12.0 s Normal 0 [facility] ([address]16) Comment: Result Comment: . Performed By: #### TROPN ### # [place] [address] [address] [place], [place] hemogram on 2019-08 Erythrocyte distribution 13.5 11.5-14.5 % Normal 08-15 [facility] width (RBC) [Ratio] (19069) Comment: Performed By: #### TROPN ### # [place] [address] [address] [place], [place] Hematocrit (Bld) [Volume 32.4 35.0-47.0 % Low 08-15 [facility] System fraction] (08327) Comment: Performed By: #### TROPN ### # [place] [address] [address] [place], [place] Hemoglobin (Bld) [Mass/Vol] 10.9 11.7-16.0 g/dL Low [facility] (29623) Comment: Result Comment: repeated Performed By: #### TROPN ### # [place] [address] [address] [place] MCH (RBC) [Entitic mass] 29.7 26.0-34.0 pg Normal 08-15 [facility] (28159) Comment: Performed By: #### TROPN ### # [place] [address] [address] [place] MCHC (RBC) [Mass/Vol] 33.5 32.0-36.0 % Normal 08-16-19 20 [facility] (47900) Comment: Performed By: #### TROPN ### # [place] [address] [address] [place] MCV (RBC) [Entitic vol] 88.7 79.0-98.0 fL Normal 2019 [facility] (70828) Comment: Performed By: #### TROPN ### # [facility] [address] [place], [place] Platelet mean volume (Bld) 8.7 7.4-10.4 fL Normal [facility] [Entitic vol] (939[address] ) Comment: Performed By: #### TROPN ### # [facility] [address] [place], [place] Platelets (Bld) [#/Vol] 247 140-440 10*3/uL Normal 2019 [facility] (51130) Comment: Performed By: #### TROPN ### # [place] [address] [address] [place], [place] RBC (Bld) [#/Vol] 3.65 3.80-5.20 10*6/uL Low 08-16-2019 [facility] (16[address]) Comment: Performed By: #### TROPN ### # [place] [address] [address] [place], [place] WBC (Bld) [#/Vol] 9.0 3.6-10.7 10*3/uL Normal 08-16-2019 [facility] ([address]) Comment: Performed By: #### TROPN ### # [place] [address] [address] [place] basic metabolic panel on 2019-08-16 Calcium [Mass/Vol] 8.7 8.4-10.4 mg/dL Normal 08-16-2019 [facility] (64617) Comment: Performed By: #### TROPN ### # [facility] [address] [place], [place] Anion gap [Moles/Vol] 7 Normal 08-16-19 [facility] (04056) Comment: Performed By: #### TROPN ### # [facility] [address] [place], [place] CO2 [Moles/Vol] 25 22-30 mmol/L Normal 08-16-2019 [facility] (29675) Comment: Performed By: #### TROPN ### # [facility] System [address] [place] [address] Creatinine [Mass/Vol] 0.69 0.52-1.25 mg/dL Normal 08-16-19 20 [facility] (74[address]) Comment: Performed By: #### TROPN ### # [facility] [address] [place] [address] GFR/1.73 sq M > 60.0 >60 mL/min/{1.73_m2} Normal 0 [facility] predicted among Syst [facility] ([address]) blacks MDRD (S/P/Bld) [Vol rate/Area] Comment: Performed By: #### TROPN ### # [facility] [address] [place], [place] GFR/1.73 sq M > 60.0 >60 mL/min/{1.73_m2} Normal 0 [facility] predicted among Syst em ([address]) non-blacks MDRD (S/P/Bld) [Vol rate/Area] Comment: Result Comment: Source- MDRD equation with creatinine calibration to IDMS(NKDEP) eGFR not recommended for nicolas g dose adjustment Performed By: #### TROPN ### # [facility] [place] [address] [address] [place], [place] Glucose [Mass/Vol] 96 70-100 mg/dL Normal 08-16-2019 [facility] ([address]86) Comment: Performed By: #### TROPN ### # [facility] System [address] [place], [place] Urea nitrogen [Mass/Vol] 22 7-20 mg/dL High 08-15 [facility] (36683) Comment: Performed By: #### TROPN ### # [facility] [address] [place], [place] Chloride [Moles/Vol] 104 98-107 mmol/L Normal 0 [facility] (85462) Comment: Performed By: #### TROPN ### # [facility] [address] [place], [place] Potassium [Moles/Vol] 3.8 3.5-5.1 mmol/L Normal 08-16-19 20 [facility] (99758) Comment: Performed By: #### TROPN ### # [facility] [address] [place] [address] Sodium [Moles/Vol] 136 135-145 mmol/L Normal 08-16-2019 [facility] (29056) Comment: Performed By: #### TROPN ### # [facility] [address] [place] [address] No panel information on 2019-08-16 Erythrocyte distribution 13.5 11.5 - 14.5 % [place] width (RBC) [Ratio] (18068) Hematocrit (Bld) [Volume 32.4 35 - 47 % Low 08-15 [place] fraction] ([address]) Hemoglobin (Bld) [Mass/Vol] 10.9 11.7 - 16 g/[place] ([address]) Comment: repeated Interpretation and Abnormal 08-16-2019 [facility] review [place] ([address]) results MCH (RBC) [Entitic 29.7 26 - 34 pg 08-16-2019 [facility]- mass] [place], [place] ([address]) MCHC (RBC) [Mass/Vol] 33.5 32 - 36 % 08-16-19 20 [place] ([address]) MCV (RBC) [Entitic 88.7 79 - 98 fL 08-16-2019 [facility]- vol] [place], [place] ([address]) Platelet mean volume 8.7 7.4 - 10.4 fL 08-16-[address] [place] [address]- (Bld) [Entitic vol] [place] ([address]) Platelets (Bld) 247 140 - 440 10*3/uL 08-16-2019 [facility]- [#/Vol] [place], [place] ([address]) RBC (Bld) [#/Vol] 3.65 3.8 - 5.2 10*6/uL Low 08-16-2019 [place], [place] (45 [address]) WBC (Bld) [#/Vol] 9.0 3.6 - 10.7 10*3/uL 08-16-2019 [place], [place] (35 [address]) Test Performed 08-16-2019 [facility] ([address]) System, [address] [place] [address] Sodium [Moles/Vol] NEG mmol/L 08-16-2019 [place], [place] (93 [address]) Comment: Test Performed by [facility] System, [address] [place] [address] Sodium [Moles/Vol] POS mmol/L 08-16-2019 [place] ([address]) Comment: Test Performed by [facility], [address] [place] [address] Sodium [Moles/Vol] B 08-16-2019 [place], [place] (94 [address]) Test Performed by 08-16-2019 [facility] ([address]) System, [address] [place] [address] Anion gap 7 mmol/L 08-16-2019 [facility]- [Moles/Vol] [place] ( [address]) Calcium [Mass/Vol] 8.7 8.4 - 10.4 mg/dL 08-16-2019 [place] (64 [address]) Chloride [Moles/Vol] 104 98 - 107 mmol/L 0 [place] (30 211) CO2 [Moles/Vol] 25 22 - 30 mmol/L 08-16-2019 [place], [place] (58 [address]) Creatinine 0.69 0.52 - 1.25 mg/dL 08-16-2019 [facility] [Mass/Vol] [place] (4 [address]11) EGFR IF NonAfrican >60.0 >60 mL/min 08-16-2019 [place] ([address]) Comment: Source- MDRD equation with c reatinine calibration to IDMS(NKDEP) eGFR not recommended for nicolas g dose adjustment GFR/1.73 sq M >60.0 >60 mL/min mL/min/{1.73_m2} 08-16-19 20 [facility] MDRD [place] (8870 7) (S/P/Bld) [Vol rate/Area] Glucose [Mass/Vol] 96 70 - 100 mg/dL 08-16-2019 [place] ([address]) Interpretation and Abnormal 08-16-2019 [facility] review of [facility] , laboratory results K [place] ([address]) Potassium 3.8 3.5 - 5.1 mmol/L 08-16-2019 [facility] [Moles/Vol] [place] ([address]) Sodium [Moles/Vol] 136 135 - 145 mmol/L 08-16-2019 [place] ([address]) Urea nitrogen 22 7 - 20 mg/dL High 08-16-2019 [facility] [Mass/Vol] [facility] [place] ([address]) Test 08-16-2019 [facility] Performed by [facility] [place] (510 56) System, [facility] [place] [address] INR Coag (PPP) 1.0 OTH - OTH {INR} 08-16-2019 [facility] y [Relative time] [place] ([address]) Comment: Recommended Anticoagulant erapy: SEE BELOW ----- [...] [Time] 10.4 9 - 12 s 0 [place] ([address]) Comment: . Test Performed by [facility] 08-16-2019 [place] ([address]) System, [facility] [place] [address] cta low ext w/ + w/o contrast left on 2019-08-15 CTA Low Ext w/ Patient Name: DENYS ARRIOLA Normal 08-15-2019 [facility] + w/o Contrast S ystem Left (0 0000) CT Exam Date/Time 08/15/2019 12:00:13 EST Exam CTA Low Ext w/ + w/o Contrast Left Ordering Physician MD DOUG FABIO Accession Number [id number] CPT4 Codes 73733 (), Q9967 (CT ISOVUE [id number]) Reason For Exam Evaluate LLE free flap [...] CR Chest Portable Patient Name: DENYS ARRIOLA [facility] 08-15-2019 [facility] ([address] ) Diagnostic Radiology Exam Date/Time 08/15/2019 18:00:56 EST Exam CR Chest Portable Ordering Physician LOUISA COATES Accession Number [id number] CPT4 Codes 71140 () Reason For Exam line placement Report [...] 08/15/2019 9:31 No panel information on 2019-08-15 [facility] Incoming Radiology Results From [facility] - 2019 9:34 PM EST 08-15-2019 [place] ([address]) Patient Name: DENYS ARRIOLA ---Diagnostic Radiology--- Exam Date/Time 08/15/2019 18:00:56 EST Exam CR Chest Portable Ordering Physician LOUISA COATES Accession Number [id number] CPT4 Codes 03958 () Reason For Exam line placement Report [...] Time: 08/15/2019 9:31 Patient Name: [place] [id number] ---Diagnostic Radiology--- Exam Date/Time 08/15/2019 18:00:56 EST Exam CR Chest Portable Ordering Physician LOUISA COATES Accession Number [id number] CPT4 Codes 14812 () Reason For Exam line placement Report [...] Time: 08/15/2019 9:31 Patient Name: [place] [id number] ---CT--- Exam Date/Time 08/15/2019 12:00:13 EST Exam CTA Low Ext w/ + w/o Contrast Left Ordering Physician MD CAMACHO ZACHARY Accession Number [id number] CPT4 Codes 37547 (), Q9967 (CT ISOVUE 370MG/[id number]) Reason For Exam Evaluate LLE free flap [...] 9:02 [facility] Incoming Radiology Results From [facility] - 2019 9:10 PM EST 08-15-2019 [place] ([address]) Patient Name: DENYS ARRIOLA ---CT--- Exam Date/Time 08/15/2019 12:00:13 EST Exam CTA Low Ext w/ + w/o Contrast Left Ordering Physician MD DOUG, FABIO Accession Number [id number] CPT4 Codes 89079 (), Q9967 (CT ISOVUE 370MG/[id number]) Reason For Exam Evaluate LLE free flap [...] JEFFREY Transcribed Date and Time: 08/15/2019 9:02 [facility] 08-15-2019 [place] ([address]) Health System Test Date: 2019-08-14 Pat Name: Denys Arriola Department: 1A6 Room: 10 Gender: F Vasc Tech: KENDALL : 1985 Requested By: DEON DAVILA Order Number: [id number] Reading MD: Maco Sepulveda Measurements Intervals [place] Rate: 78 P: 57 AL: 150 QRS: 85 QRSD: 81 T: 67 QT: 356 QTc: 406 Interpretive Statements Sinus rhythm Electronically Signed On 08-15-2019 17:41:04 EST by Maco Sepulveda [facility] Incoming Cardiolo gy Results From [facility] - 08/15/2019 5:42 PM EST [facility] 08-15-2019 [place], [place] ([address]) Test Date: 2019-08-14 Pat Name: Denys Arriola Department: 1A6 Room: 6110 Gender: F Vasc Tech: KENDALL : 1985 Requested By: DEON DAVILA Order Number: [id number] Reading MD: Maco Sepulveda Measurements Intervals [place] Rate: 78 P: 57 AL: 150 QRS: 85 QRSD: 81 T: 67 QT: 356 QTc: 406 Interpretive Statements Sinus rhythm Electronically Signed On 08-15-2019 17:41:04 EST by Maco Sepulveda troponin i on 08-13 Troponin I.cardiac < 0.012 0.000-0.034 ng/mL Normal 0 [facility] [Mass/Vol] (79151) Comment: Result Comment: . Performed By: #### TROPN ### # [address] [address] op note on Op Note PATIENT: DENYS ARRIOLA Normal 2019 [facility] ([address]91) ADMISSION DATE: 08/14/2019 SURGERY DATE: 08/14/2019 DATE [...] of March and had ORIF by a pipe fitter fire sprinkler systems at outside ED. She repo rts that [...] was then closed using 3-0 nylon with Mvvdgovk-Ywozor-zvbt sutures to repair the wound bed back [...] c ondition without complication. [employer] Job ID: [id number] Deon Davila MD DOD:08/14/2019 03:13 P EM/marcelo DOT:08/14/2019 04:40 P Job Number: [id number] Document Number: [id number] cc: Deon Davila MD [address] [place] [address] [place] [address] hemoglobin and hematocrit on 2019-08-14 Hematocrit (Bld) [Volume 38.2 35.0-47.0 % Normal 08-13 [facility] fraction] (00223) Comment: Performed By: #### HGHCT ### # [place] [address] [place] [address] Hemoglobin (Bld) 13.3 11.7-16.0 g/dL Normal 08-14-2019 [facility] [Mass/Vol] (80307) Comment: Performed By: #### HGHCT ### # [facility] [address] [place] [address] No panel information on 2019-08-14 Troponin I.cardiac <0.012 0 - 0.034 ng/mL 08-14-2019 [facility], [place] [Mass/Vol] ([address]) Comment: . Test Performed by 08-14-2019 [facility], [facility] [place] ([address]) System, [address] [place] [address] Hematocrit (Bld) 38.2 35 - 47 % 08-14-2019 [facility], [Volume fraction] [place] ([id number]) Hemoglobin (Bld) 13.3 11.7 - 16 g/dL 08-14-2019 [facility], [Mass/Vol] [place] ([address] ) Test Performed by 08-14-2019 [facility], [facility] [place] (452 37) System, [facility] [place] [address] cnco on 2019-08-06 CNCO Letter Text Normal 08-06-2019 [facility] ([address]224) bact/cand vag grm st on 2019-07-09 Bact/Cand Vag Grm Sp. Request/Comment: - Swab Norm al 07-09-2019 [facility] ([address]99) Smear Result - BACTERIAL VAG INOSIS RESULT: Stain results indicate mixed morphotypes consistent with transition from normal vaginal fausto. No Yeast observed Rare Polymorphonuclear leukocytes Comment: Performed By: #### BVCNSM ## ## [facility] [address] [place], [place] [address] progress on 2019-06 PROGRESS HNO ID: [id number] Normal 07-08-2019 [facility] Author: Whit Hassan [place] ([id number]) Service: ? Author Type: Physician Type: Progress [...] times daily as needed for Cough. - Relhobqxxmunmhu-Grxrmwjco-RW (BROMFED DM) 2-30-10 mg/5 mL syrup Take [...] non-hi rsute PELVIC: normal Bartholin's glands, urethra, Floyd's glands, no cervical lesions, good vaginal support, [...] 2019-07-08 CNOV Office Visit (WOOB) Normal 07-08-2019 [facility] FLAKODENYS Bernal ([id number]) 1985 [facility] Date Time Provider Department ([id number]) 07/08/19 3:20 PM WHIT VIVEROS WOOB During [...] non-hi rsute PELVIC: normal Bartholin's glands, urethra, Floyd's glands, no cervical lesions, good vaginal support, [...] BACT/SHUN VAG GRAM STAIN [SQBVCNSM] Order #: [id number] F UTURE Prescriptions as of 07/08/2019 Sig: [...] BMI (Body Mass Index) 26.63 kg/m2 12-11-2019 [facility] ([address]) BMI (Body Mass Index) 23.49 kg/m2 11-15-2019 [facility] [place] ([address]) BMI (Body Mass Index) 23.49 kg/m2 11-12-2019 [facility], [place] ([address]) BMI (Body Mass Index) 23.49 kg/m2 09-27-2019 [facility], [place] ([address]) BMI (Body Mass Index) 23.49 kg/m2 08-14-2019 [facility], [place] ([address]755) Body Temperature 97 [degF] 01-09-2020 [facility] ([address]) Body Temperature 98.2 [degF] 12-11-2019 [facility] ([address]) Body Temperature 97.7 [degF] 11-18-2019 [facility] ([address]) Body Temperature 98.1 [degF] 11-12-2019 [facility] ([address]) Body Temperature 98.91 [degF] 09-28-2019 [facility], [place] ([address]) Body weight 77.11 kg 12-11-2019 [facility] [place] (41821) Body weight 68.04 kg 11-15-2019 [facility] [place] ([address]) Body weight 68.04 kg 11-12-2019 [facility] [place] ([address]) Body weight 68.04 kg 09-27-2019 [facility] [place] ([address]04) Body weight 68.04 kg 08-14-2019 [facility] , [place] ([address]72) BP Diastolic 70 mm[Hg] [facility] [place] ([address] BP Diastolic 74 mm[Hg] 12-11-2019 [place] ([address]) BP Diastolic 84 mm[Hg] 11-18-2019 [place] ([address]) BP Diastolic 84 mm[Hg] 11-12-2019 [place] ([address]) BP Diastolic 66 mm[Hg] 09-28-2019 [place] ([address]) BP Systolic 112 mm[Hg] 01-09-2020 [place] ([address]) BP Systolic 115 mm[Hg] 12-11-2019 [place] ([address]) BP Systolic 106 mm[Hg] 11-18-2019 [place] ([address]) BP Systolic 113 mm[Hg] 11-12-2019 [place] ([address]) BP Systolic 112 mm[Hg] 09-28-2019 [place] ([address]) Height 170.2 cm 12-11-2019 [place] ([address]) Height 170.2 cm 11-15-2019 [place] ([address]) Height 170.2 cm 11-12-2019 [place] ([address]) Height 170.2 cm 09-27-2019 [place] ([address]) Height 170.2 cm 08-18-2019 [place] ([address]) Pulse (Heart Rate) 64 /min 01-09-2020 [place] ([address]) Pulse (Heart Rate) 73 /min 12-11-2019 [place] ([address]) Pulse (Heart Rate) 98 /min 11-18-2019 [place] ([address]) Pulse (Heart Rate) 95 /min 11-12-2019 [place] ([address]) Pulse (Heart Rate) 99 /min 09-28-2019 [place] ([address]) Pulse Oximetry 99 % 01-09-2020 [place] ([address]) Pulse Oximetry 100 % 12-11-2019 [place] ([address]) Pulse Oximetry 97 % 11-18-2019 [place] ([address]) Pulse Oximetry 96 % 11-12-2019 [place] ([address]69) Pulse Oximetry 96 % 09-28-2019 [place] ([address]) Respiratory Rate 18 /min 01-09-2020 [facility], [place] ([address]) Respiratory Rate 20 /min 12-11-2019 [facility] (16997) Respiratory Rate 16 /min 11-18-2019 [facility], [place] (69596) Respiratory Rate 15 /min 09-28-2019 [facility], [place] ([address]49) Respiratory Rate 20 /min 08-28-2019 [place], [place] ([address]) Encounters Date Type Reason Provider Location 10-26-[address] [facility] Dimas UGALDEJASMIN Facility:[facility] 11-15-2019 - Evaluation and Closed fracture Deon [...] Name Date Provider Location OPERATIVE REPORT 12-11-[address] [place] [address], [place] ([address]) Drug screen quantitative 11-17-2019 [facility] [place] vancomycin ([address]) BASIC METABOLIC PANEL W/ 11-16-2019 [facility] K[facility] [place] REFLEX TO MG FOR LOW K (54456) Blood count complete 11-16-2019 [facility], [place] automated (72919) OPERATIVE REPORT 11-15-[address] [place] [address], [place] ([address]) Cul prsmptv pthgnc 11-15-2019 Deon Davila [place] organism scrn w/colony (83146) estimj COVID-19 11-12-2019 [place] ([address]) Blood count hemoglobin 11-12-2019 Shanelle Mcgill [facility], [place] ([address]152) Blood typing serologic 11-12-2019 Shanelle Mcgill [place] abo ([address]) OPERATIVE REPORT 09-27-[address] [place] [address], [place] ([address]) Basic metabolic panel 08-28-2019 Everton Cha [place] calcium total (87925) Blood count complete 08-28-2019 Everton Cha [place] auto&auto difrntl wbc (52767) Basic metabolic panel 08-27-2019 Everton Cha [place] calcium total (85739) Blood count complete 08-27-2019 Everton Cha [place] auto&auto difrntl wbc (85155) Drug screen quantitative 08-26-2019 Victor Manuel [place] vancomycin (69497) Basic metabolic panel 08-26-2019 Everton Cha [place] calcium total (51528) Blood count complete 08-26-2019 Everton Cha [place] auto&auto difrntl wbc (07958) Basic metabolic panel 08-25-2019 Everton Cha [place] calcium total (81828) Blood count complete 08-25-2019 Everton Maldonado [place] auto&auto difrntl wbc (46584) Basic metabolic panel 08-24-2019 Everton Cha [place] calcium total (26234) Blood count complete 08-24-2019 Everton Cha [place] auto&auto difrntl wbc (43110) Drug screen quantitative 08-23-2019 Everton Corbett [place], [place] vancomycin (71106) OPERATIVE REPORT 08-23-2019 [facility] ([address]) Blood count complete 08-23-2019 Everton Cha [place] auto&auto difrntl wbc (04338) Blood typing serologic 08-22-2019 Petar Nuno [place] abo (78774) Drug screen quantitative 08-22-2019 Victor Manuel [place] vancomycin (36898) Blood count complete 08-22-2019 Everton Cha [place] auto&auto difrntl wbc (26324) Blood count complete 08-21-2019 Everton Cha [place] auto&auto difrntl wbc (14481) Drug screen quantitative 08-20-2019 Everton Corbett [place] vancomycin (49589) Assay of magnesium 08-20-2019 [place], [place] ([address]) Basic metabolic panel 08-20-2019 [place], [place] calcium total (02860) Blood count complete 08-20-2019 Everton Cha [place] auto&auto difrntl wbc (23336) Blood typing serologic 08-19-2019 Jesse Burnham [place] abo ([address]114) Assay of magnesium 08-19-2019 [place] ([address]) Basic metabolic panel 08-19-2019 [place] calcium total (16460) Blood count complete 08-19-2019 Everton Cha [place] auto&auto difrntl wbc (50763) Blood count hemoglobin 08-18-2019 Jesse R Boris [place] ([address]) Assay of magnesium 08-18-2019 [place] ([address]) Basic metabolic panel 08-18-2019 Valencia [facility]akes [facility] [place] calcium total (39588) Blood count complete 08-18-2019 Everton Cha [place] auto&auto difrntl wbc (28502) TRANSFUSE PLATELETS 08-18-2019 [place] ([address]) TRANSFUSE FRESH FROZEN 08-18-2019 - Medora Joel [place] PLASMA 08-18-2019 (96797) TRANSFUSE RED BLOOD CELLS 08-18-2019 - Evertonfabricio Cha [place], [place] 08-18-2019 (19534) Blood count hemoglobin 08-17-2019 [place] ([address]) Radex ankle complete 08-17-2019 Steven Mckeonlaurijudah [place] minimum 3 views (29281) Assay of magnesium 08-17-2019 [place] ([address]) Blood count complete 08-17-2019 Alberto Rome [place] auto&auto difrntl wbc (13897) Renal function panel 08-17-2019 Alber[place], [place] (56918) Radiologic examination 08-17-2019 Jesse R Boris [facility] [place] tibia & fibula 2 views (24848) Radiologic examination 08-17-2019 Jesse R Boris [facility] [place] femur 1 view (12453) Basic metabolic panel 08-17-2019 Fabio Magda [place] calcium total (94621) Blood count complete 08-17-2019 Fabio Man [place] automated (86242) Drug screen quantitative 08-17-2019 Dat Tiradowe [place] vancomycin (74622) Basic metabolic panel 08-16-2019 Fabio A [place] calcium total (02922) Blood count complete 08-16-2019 [place] Magda [place] automated (81171) Blood typing serologic 08-16-2019 - [place] Magda [place] abo 08-16-2019 Everton Cha (74452) PREPARE FRESH FROZEN 08-16-2019 Everton Cha [place] PLASMA (55703) PREPARE PLATELETS 08-16-2019 [place] ([address]) Prothrombin time 08-16-2019 [place] ([address]) Radiologic exam chest 08-15-2019 Louisaalisia Coates [place], [place] single view (78616) Ct angiography lower 08-15-2019 [place], [place] extremity (98186) Assay of troponin 08-14-2019 Petar Nuno [place] quantitative (09006) Ecg routine ecg w/least 08-14-2019 Deon Alan Yovanny [place] 12 lds w/i&r (86842) Cul bact xcpt urine 08-14-2019 - Deon T [place] blood/stool aerobic isol 08-14-2019 (42793) Culture bacterial any 08-14-2019 - Deon T [place] source anaerobic iso&id 08-14-2019 (14722) Blood count hemoglobin 08-14-2019 Edwar [place] ([address]269) Plan of Treatment Plan Description Date Location Shingles Vaccine (1 of Shingles Vaccine (1 of 2034 [place], [place] 2) 2) (86823) Breast cancer screen Breast cancer screen 2024 [place], [place] 2024 (49705) Breast cancer screen Breast cancer screen 2024 [place], [place] 2024 ([address]17) DTaP/Tdap/Td vaccine (2 DTaP/Tdap/Td vaccine (2 06-12-2022 [place] - Td) - Td) 06-12-2022 (01351) Flu vaccine (Season no information 02-11-2020 - [facility] [place] Ended) 02-11-2020 (89537) Nurse Only no information 01-21-2020 - [facility] Med ical 01-21-2020 [facility] [place] Office Visit 12/19/2019 Office Visit 12-19-2019 - Infect D isease - [place] Infectious Diseases 12-19-2019 Mame Stallings MD [address] [place] [address], [address] [place], [place] [id number] Office Visit 12/17/2019 Office Visit 12-17-2019 - [facility] 12-17-2019 Group O rthopedics and LAKESHIA [facility] [address] [facility] [id number] Office Visit 12/03/2019 Office Visit 12-03-2019 - [facility] alth Medical Orthopedic Surgery 12-03-2019 Group Orthope dics and Deon Davila MD 1 Sports Medi cine [facility] [address] [place], [place] [id number] Office Visit 11/26/2019 Office Visit 11-26-2019 - [facility] alth Medical Orthopedic Surgery 11-26-2019 Group Orthope dics and BorisJesse MD 1 Sports Med [facility] [address] [place], [place] [address] Office Visit 11/21/2019 Office Visit 11-21-2019 - [facility] alth Medical Orthopedic Surgery 11-21-2019 Group Orthope dics and BorisJesse MD 1 Sports Med [facility] [address] [place], [place] [address] Appointment 11/15/2019 Appointment 11-15-2019 - [facility] al Surgery General Surgery Yovanny 11-15-2019 Deon Garcia MD 1 [facility] [address] [place] [address] [phone] Boris, Jesse Shetty MD 1 [facility] [address] [place] [address] [phone] Office Visit 10/03/2019 Office Visit 10-03-2019 - Kobi carroll [facility] Orthopedic Surgery 10-03-2019 Group Orthope dics and BorisJesse MD 1 Sports Med icine [facility] [address] [place] [address] [phone] Office Visit 09/26/2019 Office Visit 09-26-2019 - Infect D isvirgilio [facility] Infectious Diseases 09-26-2019 Mame Stallings MD [address] [place] [address] Street, [address] [place], [place] [id number] Flu vaccine (#1) Flu vaccine (#1) 02-10-2019 [place] ([address]) HIV screen HIV screen 12-29-1999 - [place] 12-29-1999 (63510) HIV screen HIV screen 12-29-1999 - [place] 12-29-1999 (67390) Varicella vaccine (1 of Varicella vaccine (1 of 1985 - [place] 2 - 2-dose childhood 2 - 2-dose childhood 1985 (21851 ) series) series) Basic Metabolic Panel Basic Metabolic Panel [place] Lab Routine Daily until (23022) discontinued starting 08/25/2019, 4 completed Comment: Daily until discontinued sta rting 08/25/2019, 4 completed Blood glucose - POCT Blood glucose - POCT Point of 01-09-2020 [place] Care Testing STAT One Time (4523 7) for 1 Occurrences starting 01/09/2020 until 01/09/2020 Comment: One Time for 1 Occurrences s tarting 01/09/2020 until 01/09/2020 CBC Auto Differential CBC Auto Differential [place] ([address]) Daily until discontinued starting 08/18/2019, 11 completed Comment: Daily until discontinued sta rting 08/18/2019, 11 completed Creatinine, serum Creatinine, serum Lab STAT One 01-09-2020 [facility] [email or web address] [place] Time for 1 Occurrences (17245) starting 01/09/2020 until 01/09/2020 Comment: One Time for 1 Occurrences s tarting 01/09/2020 until 01/09/2020 Culture, Anaerobic and Culture, Anaerobic [facility] [place] Aerobic Aerobic Microbiology (35700) Routine 11/15/2019 8:20 AM EDT [place] Greater Than 1 Hour [place] Greater Than 1 Hour 08-14-2019 [facility], [place] Imaging Routine Once for 1 (4523 7) Occurrences starting 08/14/2019 until 08/14/2019 Comment: Once for 1 Occurrences start ing 08/14/2019 until 08/14/2019 [place] Greater Than 1 Hour no information [facility] [place] ([address]) [place] Greater Than 1 Hour [place] Greater Than 1 Hour 11-15-2019 [facility] [email or web address] [place], [email or web address] Imaging Routine Once for 1 (4523 7) Occurrences starting 11/15/2019 until 11/15/2019 Comment: Once for 1 Occurrences start ing 11/15/2019 until 11/15/2019 FL Greater Than 1 Hour [place] Greater Than 1 Hour 08-23-2019 [facility], [email or web address] Imaging Routine Once for 1 (4523 7) Occurrences starting 08/23/2019 until 08/23/2019 Comment: Once for 1 Occurrences start ing 08/23/2019 until 08/23/2019 [place] Greater Than 1 Hour [place] Greater Than 1 Hour 01-09-2020 [facility], [email or web address] Imaging Routine Once for 1 (4523 7) Occurrences starting 01/09/2020 until 01/09/2020 Comment: Once for 1 Occurrences start ing 01/09/2020 until 01/09/2020 HHN Treatment HHN Treatment Respiratory Care [facility]ine [facility] [place], [email or web address] (18781) 0600, 1000, 1400, 1800, 2200 until discontinued starting 08/17/2019 Comment: 0600, 1000, 1400, 1800, 2200 until discontinued starting 08/17/2019 Incentive spirometry no information Caryn Nicklaus [facility] ([address]) Comment: Every 2hr while awake until discontinued starting 09/27/2019 Every 2hr while awake until discontinued starting 08/15/2019 Q1H PRN until discontinued s tarting 12/11/2019 Q1H PRN until discontinued s tarting 01/09/2020 Initiate Oxygen Therapy [place] ([address]) Comment: Daily until discontinued sta rting 09/27/2019 Daily until discontinued sta rting 08/14/2019 Daily until discontinued sta rting 11/15/2019 Daily until discontinued sta rting 12/11/2019 Pulse Oximetry Spot Pulse Oximetry Spot Check 01-09-2020 [place] Check Respiratory Care Routine (31799) One Time for 1 Occurrences starting 01/09/2020 until 01/09/2020 Comment: One Time for 1 Occurrences s tarting 01/09/2020 until 01/09/2020 Initiate Oxygen Therapy Initiate Oxygen Therapy [place] Protocol Protocol Respiratory Care (38558 ) Routine Daily until discontinued starting 01/09/2020 Comment: Daily until discontinued sta rting 01/09/2020 Phase I & II - metered [place] ([address]) Comment: As Needed until discontinued starting 12/11/2019 As Needed until discontinued starting 01/09/2020 Potassium w/ Reflex to Potassium w/ Reflex to 01-09-2020 [place] Magnesium Magnesium Lab Routine One (26313 ) Time for 1 Occurrences starting 01/09/2020 until 01/09/2020 Comment: One Time for 1 Occurrences s tarting 01/09/2020 until 01/09/2020 , urine , urine Lab STAT One 01-09-2020 [place] Time for 1 Occurrences starting (48233) 01/09/2020 until 01/09/2020 Comment: One Time for 1 Occurrences s tarting 01/09/2020 until 01/09/2020 Protime-INR Protime-INR Lab STAT One Time for 01-09-2020 [place] ([address]) 1 Occurrences starting 01/09/2020 until 01/09/2020 Comment: One Time for 1 Occurrences s tarting 01/09/2020 until 01/09/2020 Pulse Oximetry Spot Pulse Oximetry Spot Check 12-11-2019 [place] Check Respiratory Care Routine (18350) One Time for 1 Occurrences starting 12/11/2019 until 12/11/2019 Comment: One Time for 1 Occurrences s tarting 12/11/2019 until 12/11/2019 Tissue Homogenization Tissue Homogenization Lab 08-14-2019 [place] Routine Once for 1 Occurrences ( 62005) starting 08/14/2019 until 08/14/2019 Comment: Once for 1 Occurrences start ing 08/14/2019 until 08/14/2019 Tissue Homogenization Tissue Homogenization Lab Routine [place] 08/14/2019 8:15 AM EST (78735) Immunizations Vaccine Notes Status Date Location Influenza Vaccine, Influenza Vaccine, (completed) 03-31-2016 - [facility], unspecified unspecified 03-31-2016 [place] ([address]12) formulation formulation Influenza Virus influenza virus (completed) 03-28-2017 - [facility], Vaccine vaccine, unspecified 03-28-2017 [place] (452 37) formulation Tdap (Boostrix, tetanus toxoid, (completed) 06-12-2012 - [facility], Adacel) reduced diphtheria 06-12-2012 [place] (18663 ) toxoid, and acellular pertussis vaccine, adsorbed Payers Payer Name Policy Number Location [employer] x[place] ([address]) [facility] [id number] [place] ([address]) [facility] [id number] [facility] (47952) The following information is from the original human readable contentNo Payer Records FoundNo Payer Records FoundNo Payer Records FoundNo Payer Records FoundNo Payer Records Found Social History Type Social History Date Location Description Tobacco smoking status Never smoker 09-27-2019 - [place] NHIS 01-07-2020 (66896) Alcohol intake Current non-drinker of 09-27-2019 - [place] alcohol (finding) 01-07-2020 (50713) Alcohol Comment occasional 06-14-2016 - [place] 06-14-2016 (86148) Sex Assigned At [place] ([address]) Exposure to SARS-CoV-2 Unable to assess [place] (event) (63133) Tobacco use and Never used 01-07-2020 [place] exposure (24971) Exposure to SARS-CoV-2 Not sure [place] (event) ([address]48) The following information is from the original [...] Documents on File Type Date Recorded 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 Please continue to take photographs (ask family to help) and send these photographs to the following email address: [email or web address] The antibiotics will be required via IV [...] Care and Hygiene: -Leave your wound vacuum talent development consultant Your Doctor for: -Excessive bleeding/swelling of incision [...] Quach RN - 11/12/2019 Please bring your [facility] Surgical Information folder on the day of [...] Your home care will be provided by: [facility] [phone] Infusion Company: [facility] [phone] Additional InstructionsDaSteven andre MD - 11/15/2019General Orthopedic [...] put any weight on LEFT leg Take Palmer as needed for pain control Contact your [...] control. You may also take the prescribed Palmer and ibuprofen for relief of pain and [...] 10x5 cm -Gen diet -Pain control with Palmer -Infectious disease consult re: Vancomycin IV that [...] PGY-7 Plastic & Reconstructive Surgery Fellow Pager #[phone] Gogo Alvarez RN - 09/27/2019 2:30 PM [...] Melo DO - 08/27/2019 8:31 AM EDT [facility] - Infectious Diseases Attending [...] cultures: Corynebacterium striatum vanc 0.50 Culture, Tissue [[id number]] (Abnormal) Collected: 08/14/19 0815 Order Status: Completed [...] Will sign-off please call with questions Pager: [phone] Annabel Hernandez, MS, RD, LD - 08/26/2019 [...] Nutrient Needs: ? Estimated Daily Total Kcal: 4440-0138 ? Estimated Daily Protein (g): 95-102 ? [...] Body Wt: 146 lb (66.2 kg) ? [place] Body Wt: 135 lb (61.2 kg), % [place] Body 111% ? BMI Classification: BMI 18.5 - 24.9 Normal Weight Nutrition Interventions: Continue current diet Continued Inpatient Monitoring Nutrition Evaluation: ? Evaluation: Progressing toward goals ? Goals: Pt will consume ONS and >80% estimated protein needs daily ? Monitoring: Meal Intake, Diet Tolerance, Skin Integrity, Wound Healing, I&O, Pertinent Labs, Monitor Bowel Function Contact Number: pager [phone] Jesse Burnham MD - 08/26/2019 9:21 AM [...] Date 08/26/19 0000 - 08/26/19 2359 Shift [id number] [phone] 0884-0208 24 Hour Total INTAKE P.O.(mL/kg/hr) 500(0.9) 500 [...] -2 Department of General Surgery Personal Pager #[phone] Attending note inpendently seen and evaluated Flap [...] Meloony K - 08/26/2019 8:55 AM EDT [facility] - Infectious Diseases Attending Progress [...] cultures: Corynebacterium striatum vanc 0.50 Culture, Tissue [[id number]] (Abnormal) Collected: 08/14/19 0815 Order Status: Completed [...] progress 4. Check level in morning Pager: [phone] Petar gross MD - 08/26/2019 3:40 AM EDT [place] [address] MED SURG [address] [place] [address] Dept: [phone] Loc: [phone] Adult Orthopaedic Service Patient Name: Denys Arriola [...] flap checks. Vioptix through Monday. Call MD direct support professional if Vioptix <46%, flap turns dusky or [...] PGY-7 Plastic & Reconstructive Surgery Fellow Pager #[phone] Attending note: Seen examined and evaluated with [...] Lewis MD - 08/25/2019 6:31 AM EDT [facility]G [address] [place] [id number] Dept: [phone] Loc: [phone] Adult Orthopaedic Service Patient Name: Denys Arriola [...] HLIV. -Q4H flap checks. Vioptix. Call MD direct support professional if Vioptix <58%, flap turns dusky or purple or there is loss of arterial signal. -OK for up with assistance to bedside commode -Pain control -H/o osteoarthritis. Continue Vancomycin -ASA, Lovenox -TTF -Will start dangle protocol tomorrow Michelle Cabrera MD PGY-7 Plastic & Reconstructive Surgery Fellow Pager #[phone] Attending note: Seen and independently evaluated NWB Ok for commode with assist Transfer to floor Q4 flap checks Daily dressing changes with adaptic gauze and kerlix Vioptix thru Monday Will start dangle tomorrow 5 min TID Am CBC Reg diet Jesse Burnham tephen Lewis MD - 08/24/2019 7:35 AM EDT [facility] T2 [address] [address] Dept: [phone] Loc: [phone] Adult Orthopaedic Service Patient Name: Denys Arriola [...] 250 mL IVPB 1,250 mg Intravenous Q12H Crarington Stephens MD 125 mL/hr at 08/23/19 2210 [...] % injection 10 mL 10 mL Intracatheter PRMihcael Stephens MD 10 mL at 08/22/19 1410 [...] 08/16 PLAN: Neuro/Spine: - tylenol scheduled - Palmer -dilaudid prn breakthrough - home prozac - [...] for diet by primary service. Luz tart Palmer, d/c scheduled acetaminophen, reschedule IV narcotics for [...] IVF -Q1H flap checks. Vioptix. Call MD direct support professional if Vioptix <58%, flap turns dusky or purple or there is loss of arterial signal. -Pain control -H/o osteoarthritis. Continue Vancomycin -ASA, Lovenox Michelle Cabrera MD PGY-7 Plastic & Reconstructive Surgery Fellow Pager #[phone] Everton Ugalde MD - 08/23/2019 7:35 PM [...] Date 08/23/19 0000 - 08/23/19 2359 Shift [phone] 24 Hour Total INTAKE P.O.(mL/kg/hr) 500(0.9) 500 [...] 08/16 PLAN: Neuro/Spine: - tylenol scheduled - Palmer -dilaudid prn breakthrough - home prozac HEENT: [...] states pain is tolerable. Pt transported to [id number] signed by Marilyn Ferreira RN at 08/23/2019 [...] Melo DO - 08/23/2019 2:03 PM EDT [facility] - Infectious Diseases Attending [...] cultures: Corynebacterium striatum vanc 0.50 Culture, Tissue [[id number]] (Abnormal) Collected: 08/14/19 0815 Order Status: Completed [...] vancomycin dose adequate 2. Continue care Pager: [phone] Rachel pink RN - 08/23/2019 1:42 PM [...] combined flap debulking with Dr. Burnham and [place] spatial frame ex-fix with ortho -NPO, updated type and screen complete -Continue ABx per ID, on vanc -Continue daily ASA -Lovenox PPx -Multimodal pain control -Continue bedrest -PT/OT -Keep left leg elevated -Continue alex hugger to left leg -Discussed with Dr. Boris Camacho M.D. PGY-1 [phone] Attending note: Revision & inset flap today, CBC reviewed, HGB stable Plan for inset versus STSG WB status as per ortho/Dr Davila I had an extensive discussion with . Denys Arriola and any family members present regarding the natural history, etiology, and buttermaker continuous churn consequences of her condition. I have outlined [...] Ly MD - 08/23/2019 6:36 AM EDT [place] [address] [address] [place] [address] Dept: [phone] Loc: [phone] Adult Orthopaedic Service Patient Name: Denys Arriola [...] debulking on 08/22 per plastics, will place [facility] frame today with combined procedure. -Ice/elevate -PT/OT -Leave splint clean, dry, and intact -Continue home medication -Pain control and medical management per plastic surgery -DVT PPx per primary team. -NPO -Added -Consented Victor Manuel Melo DO - 08/22/2019 8:57 AM EDT [facility] - Infectious Diseases Attending Progress [...] cultures: Corynebacterium striatum vanc 0.50 Culture, Tissue [[id number]] (Abnormal) Collected: 08/14/19 0815 Order Status: Completed [...] 3. PRS and Ortho on case Pager: [phone] Fabio Camacho MD - 08/22/2019 6:32 AM [...] -Discussed with Dr. Boris Camacho M.D. PGY-1 [phone] German Torrez MD - 08/22/2019 5:58 AM EDT [place] [address] MED SURG [address] [facility] [address] Dept: [phone] Loc: [phone] Adult Orthopaedic Service Patient Name: Denys Arriola [...] for flap debulking on 08/22 per plastics, [facility] frame likely Monday -Ice/elevate -PT/OT -Leave splint [...] Nutrient Needs: ? Estimated Daily Total Kcal: 8776-1657 ? Estimated Daily Protein (g): 95-102 ? [...] Body Wt: 146 lb (66.2 kg) ? [place] Body Wt: 135 lb (61.2 kg), % [place] Body 111% ? BMI Classification: BMI 18.5 [...] Constipation, Monitor Bowel Function Contact Number: pager [phone] Mimi Victor Manuel DO Eliana - 08/21/2019 8:56 AM EDT [facility] - Infectious Diseases Attending [...] cultures: Corynebacterium striatum vanc 0.50 Culture, Tissue [[id number]] (Abnormal) Collected: 08/14/19 0815 Order Status: Completed [...] vancomycin 2. Check level in morning Pager: [phone] Luna gold OT - 08/21/2019 8:08 AM EDTOccupational Therapy Attempted OT eval. Pt is currently on bedrest per order in [facility] as well as plastic surgeries note [...] -Discussed with Dr. Boris Camacho M.D. PGY-1 [phone] Attending Note: Patient doing well flap viable Will plan debulking and inset on Monday, risks benefits and alternatives were discussed with the patient. She understands the the proposed procedure which is flap inset debulking possible split-thickness skin graft and possible wound VAC placement all questions were answered Continue nonweightbearing daily aspirin and Lovenox protocol German Torrez MD - 08/21/2019 5:53 AM EDT [facility] MED SURG [address] [place] [address] Dept: [phone] Loc: [phone] Adult Orthopaedic Service Patient Name: Denys Arriola [...] debulking on 08/22 per plastics, will place [facility] frame at that time/after -Ice/elevate -PT/OT -Leave splint clean, dry, and intact -Continue home medication -Pain control per orthopaedic protocol -Intra-op cultures pending -DVT PPx per primary team. -okay for diet today German Cabrera PGY-2 Orthopaedic Surgery 08/21/2019 5:53 AM [phone] Victor Manuel Melo DO - 08/20/2019 9:47 AM EDT [facility] - Infectious Diseases Attending [...] cultures: Corynebacterium striatum vanc 0.50 Culture, Tissue [[id number]] (Abnormal) Collected: 08/14/19 0815 Order Status: Completed [...] on case for fixator placement later Pager: [phone] Josse Buitrago MD - 08/20/2019 8:20 AM [...] tablet 2 tablet 2 tablet Oral Daily Albreto Rome DO 2 tablet at 08/19/19 0756 [...] Date 08/20/19 0000 - 08/20/19 2359 Shift 5142-2700 [phone] 24 Hour Total INTAKE Shift Total(mL/kg) OUTPUT [...] 08/16 PLAN: Neuro/Spine: - tylenol scheduled - Palmer - add toradol today -dilaudid prn breakthrough [...] on=xygenation. Will d/c Oxycodone - intolerance, start Palmer PRN, discuss with Plastic surgery initiation of [...] -Discussed with Dr. Boris Camacho M.D. PGY-1 [phone] Carrington Ly MD - 08/20/2019 6:20 AM EDT [facility] T[address] [place], [place] [id number] Dept: [phone] Loc: [phone] Adult Orthopaedic Service Patient Name: Denys Arriola [...] James MD - 08/19/2019 11:51 AM EDT [facility] - Infectious Diseases Attending Progress Note Subjective: [...] scanned under Media tab Mame Stallings [facility] Everton Maldonado MD - 08/19/2019 10:24 [...] mg 4 mg Intravenous Q6H PRN Alberto oRme, DO ARE THERE PERTINENT UPDATES TO PAST,FAMILY, [...] Date 08/19/19 0000 - 08/19/19 2359 Shift 9127-8966 [phone] 24 Hour Total INTAKE I.V.(mL/kg) 1441(21.2) 1441(21.2) [...] vac to donor site - OR today [facility] WB Status: RUE:AT LUE: AT [...] Dr. Burnham -2 Department of General Surgery #[id number] Attending NOte: Patient seen and independently evaluated Agree as above Plan on inset +/- STSG on Monday Ok to dc vioptix on Monday rounds Q4 flap checks Regular diet Transfer out of ICU Jesse Burnham Carrington Ly MD - 08/19/2019 6:23 AM EDT [facility] T2 [address] [facility] [address] Dept: [phone] Loc: [phone] Adult Orthopaedic Service Patient Name: Denys Arriola [...] Start dvt chemoprophylaxis. Alexy Thompson MD Pg [phone] oblete, Felix Pina MD - 08/18/2019 11:18 AM EDT [facility] - Infectious Diseases Attending [...] Ly MD - 08/18/2019 5:53 AM EDT [facility] T2 [address] [address] Dept: [phone] Loc: [phone] Adult Orthopaedic Service Patient Name: Denys Arriola [...] Date 08/18/19 0000 - 08/18/19 2359 Shift [id number] [phone] 24 Hour Total INTAKE Blood(mL/kg) 365(5.4) 365(5.4) [...] details corrected below. Alexy Thompson MD Pg [phone] Alberto Rome, - 08/17/2019 8:39 PM ESTPlastic [...] Stallings MD - 08/16/2019 10:56 AM EST [facility] - Infectious Diseases Attending [...] pain with IV pain medication per staff internist office based only prior to wound VAC dressing change. Old [...] Will continue to follow pt. Will consult property preservation specialist. Randy Berg DO - 08/16/2019 7:[address] [facility] Progress Note Denys Arriola : [...] by Randy Harris DO 6PM-6AM please page: [facility] Internal Medicine Fabio Camacho MD - 08/16/2019 6:13 AM EST [facility] H6 TELEMETRY [address] [facility] [address] Dept: [phone] Loc: [phone] Plastics Progress Note Name: Denys Arriola Date:08/16/2019 [...] daily DVT ppx Fabio Camacho M.D. 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 Goals and/or treatment plan [...] Berg DO - 08/15/2019 8:17 AM EST [facility] Progress Note Denys Arriola [...] DVT prophylaxis: SCDs Disposition:await test results, await documentation consultant recommendations and await clinical improvement I spent over 51% of total time providing counseling or incoordination of care: 25 minutes discussed with pt, I personally examined the patient and I personally reviewed chart, data, labs radiology reports 6AM-6PM please page: Electronically signed by Randy Harris DO 6PM-6AM please page: [facility] Internal Medicine Fabio Camacho MD - 08/15/2019 5:48 AM EST [facility] H6 TELEMETRY [address] [place] [address] Dept: [phone] Loc: [phone] Plastics Progress Note Name: Denys Arriola Date:08/15/2019 [...] abx to ID Fabio Camacho M.D. 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 Kim Wright OTR/L Carolyn Bryant [facility] - 11/18/2019 7:31 AM EDTInfectious Diseases has [...] dc when antibiotics set up Rx for Palmer DVT PPx: ASA 81mg daily and cuffs. PT Ice Elevation Fabio Camacho M.D. Orthopaedic Surgery PGY-1 [phone] Rianna Carrillo DTR - 11/17/2019 8:54 AM EDT Nutrition rescreen completed. Chart reviewed. Patient to be monitored and followed by the diet golf technician. Carrington Stephens MD - 11/17/2019 6:06 [...] dc when antibiotics set up Rx for Palmer DVT PPx: ASA 81mg daily and cuffs. 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 Please page direct support professional ortho with any questions or concerns. Greg [...] waiting on a call back from the [facility] to assist. Mary Perez RN - 11/15/2019 [...] FROM OR VIA CART. SPONT RESP. WITH SILK FOLDER IN ATTENDANCE. PLACED ON MONITOR. MONITOR ALARMS [...] BE BASED ON THE PRIMARY CLINICAL RECORDS. [facility] provides no warranty or guarantee of the accuracy or completeness of information in this document. UNRECOGNIZED CONTENT PROVIDED BELOW FOR UNRECOGNIZED SECTION INFORMATION SOURCE DATE CREATED AUTHOR AUTHOR'S ORGANIZATIO N 11/30/2017 [facility] DATE CREATED AUTHOR AUTHOR'S ORGANIZATIO N 07/10/[address] [facility] CREATED AUTHOR AUTHOR'S ORGANIZATIO N 08/06/2019 [facility] DATE CREATED AUTHOR AUTHOR'S ORGANIZATIO N 01/14/2020 [facility] UNRECOGNIZED CONTENT PROVIDED BELOW FOR UNRECOGNIZED SECTION Reason for Visit Reason Comments
== END ==
PROVIDERS: Visit Provider Internal Medicine Infectious Disease
DX: M86.9 Osteomyelitis, unspecified (principal)
CPT/HCPCS: 80053; 80202; 85025; 85652; 86140

== ENCOUNTER 2019-12-09 12:40 | Outpatient (RCR) | payer OTHER, SELFPAY ==
[2019-11-25 10:45] LABS: Absolute Lymphocyte Count 1.32 X10^3/uL (0.83-4.51); Absolute Neutrophil Count 4.1 X10^3/uL (2.0-7.7); Basophil# 0.06 X10^3/uL; Eosinophil# 0.28 X10^3/uL; Eosinophils% 4.5 % (0-5); Hematocrit 31.6 % (37-47); Hemoglobin 10.4 g/dL (12.0-15.0); Lymphocyte # 1.32 X10^3/ul (4.0); Lymphocyte % 21.2 % (19-41); Mean Corp Hgb Conc 32.9 g/dL (32-36); Mean Corpuscular Hgb 26.5 pg (27.0-32.0); Mean Corpuscular Volume 80.6 fL (81-99); Mean Platelet Vol. 9.7 fl (6.2-12.0); NRBC Flagged by Analyzer 0 % (0-5); Neutrophil # 4.07 X10^3/uL (2.7-7.7); Neutrophil % 65.1 % (47-70); Platelet Count 348 K/mm3 (150-450); RBC Distribution Width CV 13.3 % (11.6-14.6); RBC Distribution Width SD 38.5 fl (35.1-43.9); Red Blood Count 3.92 M/mm3 (4.2-5.4); White Blood Count 6.2 K/mm3 (4.4-11.0)
[2019-11-25 10:54] LABS: Anion Gap 6 (5-15); BUN 16 mg/dL (7-18); BUN/Creat Ratio 23.2 RATIO (10-20); Calcium,Total 9.1 mg/dL (8.5-10.1); Chloride 108 mmol/L (98-107); Creatinine, Serum 0.69 mg/dL (0.55-1.02); EST Glomerular Filtration Rate 103 mL/min (>60); Est Glom Filt Rate - Afr Amer 124 mL/min (>60); Glucose 91 mg/dL (74-106); Sodium Level 139 mmol/L (136-145)
[2019-11-25 10:56] LABS: Vancomycin, Trough Level 11.5 ug/mL (5.0-15.0)
[2019-12-02 10:40] LABS: Absolute Lymphocyte Count 1.02 X10^3/uL (0.83-4.51); Absolute Neutrophil Count 4.5 X10^3/uL (2.0-7.7); Basophil# 0.04 X10^3/uL; Basophil% 0.6 % (0-1); Eosinophil# 0.24 X10^3/uL; Eosinophils% 3.8 % (0-5); Hemoglobin 10.7 g/dL (12.0-15.0); Lymphocyte # 1.02 X10^3/ul (4.0); Lymphocyte % 16.2 % (19-41); Mean Corp Hgb Conc 33.4 g/dL (32-36); Mean Corpuscular Hgb 26.7 pg (27.0-32.0); Mean Corpuscular Volume 79.8 fL (81-99); Mean Platelet Vol. 9.7 fl (6.2-12.0); Monocyte# 0.45 X10^3/uL; Monocyte% 7.2 % (0-10); NRBC Flagged by Analyzer 0 % (0-5); Neutrophil # 4.53 X10^3/uL (2.7-7.7); Platelet Count 336 K/mm3 (150-450); RBC Distribution Width CV 13.2 % (11.6-14.6); RBC Distribution Width SD 37.7 fl (35.1-43.9); Red Blood Count 4.01 M/mm3 (4.2-5.4); White Blood Count 6.3 K/mm3 (4.4-11.0)
[2019-12-02 10:47] LABS: Anion Gap 8 (5-15); BUN 16 mg/dL (7-18); BUN/Creat Ratio 21.7 RATIO (10-20); Calcium,Total 9.4 mg/dL (8.5-10.1); Chloride 105 mmol/L (98-107); Creatinine, Serum 0.74 mg/dL (0.55-1.02); EST Glomerular Filtration Rate 96 mL/min (>60); Est Glom Filt Rate - Afr Amer 116 mL/min (>60); Glucose 97 mg/dL (74-106); Potassium 3.9 mmol/L (3.5-5.1); Sodium Level 139 mmol/L (136-145); Vancomycin, Trough Level 14.3 ug/mL (5.0-15.0)
[2019-12-09 13:47] LABS: Absolute Lymphocyte Count 1.06 X10^3/uL (0.83-4.51); Absolute Neutrophil Count 3.4 X10^3/uL (2.0-7.7); Basophil# 0.05 X10^3/uL; Basophil% 0.9 % (0-1); Eosinophil# 0.31 X10^3/uL; Eosinophils% 5.8 % (0-5); Hematocrit 32.1 % (37-47); Hemoglobin 10.2 g/dL (12.0-15.0); Lymphocyte # 1.06 X10^3/ul (4.0); Lymphocyte % 19.9 % (19-41); Mean Corp Hgb Conc 31.8 g/dL (32-36); Mean Corpuscular Volume 81.9 fL (81-99); Monocyte# 0.46 X10^3/uL; Monocyte% 8.6 % (0-10); NRBC Flagged by Analyzer 0 % (0-5); Neutrophil # 3.44 X10^3/uL (2.7-7.7); Neutrophil % 64.4 % (47-70); Platelet Count 353 K/mm3 (150-450); RBC Distribution Width CV 13.8 % (11.6-14.6); RBC Distribution Width SD 40.3 fl (35.1-43.9); Red Blood Count 3.92 M/mm3 (4.2-5.4); White Blood Count 5.3 K/mm3 (4.4-11.0)
[2019-12-09 13:57] LABS: Anion Gap 7 (5-15); BUN 13 mg/dL (7-18); BUN/Creat Ratio 17.9 RATIO (10-20); Chloride 106 mmol/L (98-107); Creatinine, Serum 0.73 mg/dL (0.55-1.02); EST Glomerular Filtration Rate 97 mL/min (>60); Est Glom Filt Rate - Afr Amer 117 mL/min (>60); Glucose 86 mg/dL (74-106); Potassium 3.7 mmol/L (3.5-5.1); Sodium Level 139 mmol/L (136-145)
[2019-12-09 14:00] LABS: Vancomycin, Trough Level 15.5 ug/mL (5.0-15.0)
== END 2019-12-09 18:00 | disposition home or self-care (01) ==
LOC: HHLAB 12:40
PROVIDERS: Referring Provider Family Medicine; Visit Provider Family Medicine
DX: T81.30XA Disruption of wound, unspecified, initial encounter (principal)
CPT/HCPCS: 80048; 80202; 85025

== ENCOUNTER 2019-12-16 13:04 | Outpatient (RCR) | payer OTHER, SELFPAY ==
[2019-12-16 15:33] LABS: Absolute Lymphocyte Count 1.16 X10^3/uL (0.83-4.51); Absolute Neutrophil Count 3.1 X10^3/uL (2.0-7.7); Basophil# 0.04 X10^3/uL; Basophil% 0.8 % (0-1); Eosinophil# 0.26 X10^3/uL; Eosinophils% 5.1 % (0-5); Hematocrit 33.4 % (37-47); Hemoglobin 10.5 g/dL (12.0-15.0); Lymphocyte # 1.16 X10^3/ul (4.0); Lymphocyte % 22.9 % (19-41); Mean Corp Hgb Conc 31.4 g/dL (32-36); Mean Corpuscular Hgb 25.5 pg (27.0-32.0); Mean Corpuscular Volume 81.3 fL (81-99); Mean Platelet Vol. 9.7 fl (6.2-12.0); Monocyte# 0.45 X10^3/uL; Monocyte% 8.9 % (0-10); NRBC Flagged by Analyzer 0 % (0-5); Neutrophil # 3.13 X10^3/uL (2.7-7.7); Neutrophil % 61.9 % (47-70); Platelet Count 372 K/mm3 (150-450); RBC Distribution Width CV 13.8 % (11.6-14.6); RBC Distribution Width SD 39.5 fl (35.1-43.9); Red Blood Count 4.11 M/mm3 (4.2-5.4); White Blood Count 5.1 K/mm3 (4.4-11.0)
[2019-12-16 15:50] LABS: Vancomycin, Trough Level 15.8 ug/mL (5.0-15.0)
[2019-12-16 15:51] LABS: Anion Gap 6 (5-15); BUN 17 mg/dL (7-18); BUN/Creat Ratio 24.1 RATIO (10-20); Calcium,Total 8.9 mg/dL (8.5-10.1); Chloride 103 mmol/L (98-107); EST Glomerular Filtration Rate 100 mL/min (>60); Est Glom Filt Rate - Afr Amer 122 mL/min (>60); Glucose 92 mg/dL (74-106); Potassium 4.2 mmol/L (3.5-5.1); Sodium Level 137 mmol/L (136-145)
== END 2019-12-16 18:00 | disposition home or self-care (01) ==
LOC: HHLAB 13:04
PROVIDERS: Referring Provider Family Medicine; Visit Provider Family Medicine
DX: T81.30XA Disruption of wound, unspecified, initial encounter (principal); S82 Fracture of lower leg, including ankle
CPT/HCPCS: 80048; 80202; 85025

== ENCOUNTER 2020-09-08 09:58 | Emergency (ER) | payer MEDICAID, SELFPAY ==
[2020-09-08 09:59] VITALS: BP 138/91; PULSE 77; RESP 16; TEMP 36.4; O2SAT 97; BMI 29.1
--- NOTE | 2020-09-08 10:24 | CT_ITS ---
STUDY: CT BRAIN WITHOUT CONTRAST REASON FOR EXAM: Female, 34 years old. Confusion, word finding difficulties RADIATION DOSAGE (If Supplied By Facility): CTDIvol = ( 44.99 ) mGy, DLP = ( 762.36 ) mGycm TECHNIQUE: Transaxial CT imaging of the brain was performed without administration of intravenous contrast material. Individualized dose optimization techniques were used for this CT. COMPARISON: No relevant priors. FINDINGS: Normal soft tissue structures. Normal calvarium. Normal size ventricles and extra-axial spaces for the patient''s age. Normal white matter tracts of the cerebral hemispheres. Normal basal ganglia and thalami. Normal brainstem. Normal cerebellum. There is no intracranial hemorrhage. There are no findings of an acute ischemic infarction. Normal visualized paranasal sinuses. CT/Brain/Head without Contrast IMPRESSION: Normal unenhanced CT scan of the brain. Electronically Signed: Noman Esteban MD at 11:46 EDT , Service support ,
--- NOTE | 2020-09-08 10:24 | EKG12_ITS ---
Test Reason : CONFUSION Blood Pressure : / mmHG Vent. Rate : 065 BPM Atrial Rate : 065 BPM P-R Int : 146 ms QRS Dur : 078 ms QT Int : 392 ms P-R-T Axes : 033 084 038 degrees QTc Int : 407 ms Normal sinus rhythm Normal ECG Confirmed by CUBA STALEY, ADY ([id number]), image editor CHELSY ESCALANTE ([id number]) on 09/10/2020 9:47:42 AM Referred By: ACE Confirmed By:ADY BRINK MD
[2020-09-08 10:26] LABS: Bedside Glucose 98 mg/dL (70-110)
--- NOTE | 2020-09-08 10:26 | VDLE_ITS ---
Reason For Study: Swelling Procedure LEFT This is a venous duplex using B-mode, color GSV is normal. flow and spectral Doppler. CFV is compressible, spontaneous, phasic, Exam performed portable in ED. competent, and demonstrates normal A preliminary report was called and/or faxed augmentation. to ED. FV is compressible, spontaneous, phasic, competent and demonstrates normal augmentation. POP V is compressible, spontaneous, phasic, competent and demonstrates normal augmentation. T/P Trunk is compressible. PTV is compressible. LT PerV is compressible. VL/Venous Duplex US, Unilateral Interpretation Summary Deep veins of the left lower extremity are patent and compressible segmentally. There is no evidence of left lower extremity deep vein thrombosis. Valvular competence appears intac t within the proximal deep venous system on the left . The left great saphenous vein appears patent a nd compressible segmentally. Ordering Physician: Myra Chin Referring Physician: Sushil Valencia Performed By: Kaylah Arauz RVT
--- NOTE | 2020-09-08 10:30 | ED.VIS.GEN ---
History of Present Illness Chief Complaint: Confusion Informant: Patient Onset: Weeks Timing: Intermittent Narrative: Is a 34-year-old female with history of migraines and anxiety presenting with confusion and blurry vision. Patient states she has had intermittent blurry vision for the past 2 months. She saw her eye doctor who states she was slightly nearsighted but did not need glasses. She states everything else looks normal. She establish with a new PCP about 2 weeks ago where she had blood work and everything was mostly normal. She states for the past week she is adamant episodes of feeling confused. She states it started when she was at work and she was try to give directions but mixed up the order of the word. She states she has been more forgetful. 2 days ago she was cooking dinner and she does continue to store the potatoes and could move onto the next step and states she just could not remember what to do for about 10 minutes. Today at work she felt confused again and she states he fell like she was drunk. This is about an hour prior to arrival. She then came to the emergency room to be evaluated further. Patient denies any headache but no she does have a history of migraines. She states she feels like she is drunk sometimes. She denies any ringing or ears. Denies any chest pain, shortness of breath or difficulty breathing. She denies any GI or symptoms. Patient had traumatic fracture of her left tib-fib 3 years ago which ultimately was infected and patient had a skin flap. She notes it has been a bit more swollen lately. No other complaints at this time. Past Medical History - Allergies and Home Meds Allergies/Adverse Reactions: Allergies acetaminophen [From Percocet] Adverse Reaction (Verified 09/08/20 10:04) Upset Stomach oxycodone [From Percocet] Adverse Reaction (Verified 09/08/20 10:04) Upset Stomach Primary Care Physician: Sushil Valencia MD [Primary Care Provider] - Past Medical History: - - Migraines, anxiety Surgical History: - - ORIF left tibia and fibula 04/11/19, I&D with washout of left ankle 04/27/19 and 04/30/19 Lives: With Family Smoking Status: Never smoker Review of Systems General: Reports: Malaise. Denies: Chills, Fever, Sweats Eyes: Denies: Visual changes - bilaterally, Diplopia ENT: Denies: Rhinorrhea, Sore throat Cardiovascular: Denies: Chest pain, Palpitations Respiratory: Denies: Dyspnea, Cough, Dyspnea on exertion Gastrointestinal: Denies: Abdominal pain, Nausea, Vomiting, Diarrhea, Melena, Hematochezia Genitourinary: Denies: Dysuria, Hematuria, Frequency Musculoskeletal: Denies: Back pain, Extremity Pain Skin: Denies: Rash, Wounds Neurological: Reports: - - Confusion. Denies: Headache, Weakness, Numbness Physical Exam Vital Signs/Narrative: Vital Signs Temp Pulse Resp BP Pulse Ox 09/08/20 09:59 97.6 F L 77 16 138/91 H 97 Inital Vital Signs reviewed: Yes General: Well nourished, Well developed, No Acute Distress Head: Normocephalic, Atraumatic Eyes: Perrl, EOMI, - - Bilateral fatiguing horizontal nystagmus on initial exam. Alfie maneuver bilaterally does not reelicit symptoms ENT: Moist mucous membranes, No rhinorrhea, TM's clear Neck: Supple, Nontender, No JVD Cardiovascular: Regular rate, Regular rhythm, No murmurs Respiratory: No distress, CTA bilaterally, Chest nontender Abdomen: Soft, Nontender, Nondistended, Normal bowel sounds Back: Nontender, Normal Inspection Extremities: Nontender, Edema - Left lower extremity with extensive postsurgical changes and evidence of prior skin flap Skin: Normal color, No rash Neurological: Alert, Oriented x3, Cranial nerves II-XII grossly intact, Normal Strength, Normal Sensation, Normal Gait, - - Normal [id number], no truncal ataxia. Normal coordination. NIH equals zero. Negative for: Parasthesia, Weakness, Left side facial droop, Right side facial droop Psychological: Normal affect, Normal Mood Diagnostic/Tx/Re-eval Clinical Impression(s) from Imaging Studies Brain CT 09/08/20 10:24 IMPRESSION: Normal unenhanced CT scan of the brain. Electronically Signed: Noman Esteban MD at 11:46 EDT , Service support , Laboratory Data 09/08/20 09/08/20 09/08/20 10:14 10:20 10:20 WBC 7.1 RBC 4.85 Hgb 13.7 Hct 41.0 MCV 84.5 MCH 28.2 MCHC 33.4 RDW Std Deviation 41.1 RDW Coeff of Andrea 13.3 Plt Count 334 MPV 10.5 Immature Gran % (Auto) 0.300 Neut % (Auto) 63.3 Lymph % (Auto) 25.8 Howell % (Auto) 6.5 Eos % (Auto) 3.1 Baso % (Auto) 1.0 Absolute Neuts (auto) 4.5 Absolute Lymphs (auto) 1.82 Nucleated RBC % 0 Sodium 138 Potassium 4.0 Chloride 107 Carbon Dioxide 25.0 Anion Gap 6 BUN 17 Creatinine 0.79 Estim Creat Clear Calc 96.66 Est GFR (MDRD) Af Amer 106 Est GFR (MDRD) Non-Af 88 BUN/Creatinine Ratio 21.6 H Glucose 97 Calcium 8.7 Total Bilirubin 0.50 AST 24 ALT 23 Alkaline Phosphatase 155 H Troponin I < 0.015 Total Protein 7.4 Albumin 3.8 Globulin 3.6 Albumin/Globulin Ratio 1.1 Urine Color Urine Clarity Urine pH Ur Specific [place] Urine Protein Urine Glucose (UA) Urine Ketones Urine Occult Blood Urine Nitrite Urine Bilirubin Urine Urobilinogen Ur Leukocyte Esterase Urine RBC Urine WBC Ur Squamous Epith Cells Urine Bacteria Urine Mucus Urine Test POC Glucose 98 09/08/20 11:10 WBC RBC Hgb Hct MCV MCH MCHC RDW Std Deviation RDW Coeff of Andrea Plt Count MPV Immature Gran % (Auto) Neut % (Auto) Lymph % (Auto) Howell % (Auto) Eos % (Auto) Baso % (Auto) Absolute Neuts (auto) Absolute Lymphs (auto) Nucleated RBC % Sodium Potassium Chloride Carbon Dioxide Anion Gap BUN Creatinine Estim Creat Clear Calc Est GFR (MDRD) Af Amer Est GFR (MDRD) Non-Af BUN/Creatinine Ratio Glucose Calcium Total Bilirubin AST ALT Alkaline Phosphatase Troponin I Total Protein Albumin Globulin Albumin/Globulin Ratio Urine Color Yellow Urine Clarity Cloudy Urine pH 5.0 Ur Specific [place] 1.020 Urine Protein Negative Urine Glucose (UA) Normal Urine Ketones Negative Urine Occult Blood 10 H Urine Nitrite Negative Urine Bilirubin Negative Urine Urobilinogen Normal Ur Leukocyte Esterase Negative Urine RBC 0 SEEN Urine WBC 0 SEEN Ur Squamous Epith Cells 25-50 SEEN Urine Bacteria 2+ Urine Mucus 0 SEEN Urine Test Negative POC Glucose - Rhythm Strip Rhythm Strip: Sinus Rhythm Rate: 65 Ectopy: None - EKG Initial EKG Interpretation: Sinus Rhythm, - - Normal sinus rhythm at a rate of 65 Normal axis Normal intervals Normal ST segments - Medical Decision Making Patient evaluated for vague complaint of feeling like she is going to pass out and feeling confused. On for at least a week. On exam patient did have some fatiguing horizontal nystagmus that seem to recreate her symptoms but then I was not able to reproduce it on the Cherise-Hallpike test. Because is been going on for at least a week I did obtain a head CT which did not show any acute cerebellar process. I do not suspect an acute stroke causing her confusion. Cardiac work-up is negative. No signs of acute infection to be causing her confusion. I am not sure was causing her symptoms. Patient is relatively asymptomatic in the ER. Should be discharged home with a short course of meclizine in case this is vertigo. She will follow-up with her primary care doctor. At this time I do not think she requires admission is safe for outpatient follow-up. ED Disposition - Plan for ED Patient: Disposition: Home or Assisted Living Diagnosis: Confusion, Vertigo Instructions: ED Confusion, ED Vertigo, Unspecified Prescriptions: Meclizine HCl 25 mg PO Q6H PRN PRN #15 tablet PRN Reason: Vertigo Transmission Status: Received by [id number] Referrals: Sushil Valencia MD [Primary Care Provider] - Additional Instructions: The exact cause of your symptoms is not clear. Please follow-up with your primary care doctor for further evaluation. I do wonder if you have a component of vertigo that is causing you to feel off. You will be given meclizine Rx to help with that.
[2020-09-08 10:50] LABS: Absolute Lymphocyte Count 1.82 X10^3/uL (0.83-4.51); Absolute Neutrophil Count 4.5 X10^3/uL (2.0-7.7); Basophil# 0.07 X10^3/uL; Eosinophil# 0.22 X10^3/uL; Eosinophils% 3.1 % (0-5); Hemoglobin 13.7 g/dL (12.0-15.0); Lymphocyte # 1.82 X10^3/ul (4.0); Lymphocyte % 25.8 % (19-41); Mean Corp Hgb Conc 33.4 g/dL (32-36); Mean Corpuscular Hgb 28.2 pg (27.0-32.0); Mean Corpuscular Volume 84.5 fL (81-99); Mean Platelet Vol. 10.5 fl (6.2-12.0); Monocyte# 0.46 X10^3/uL; Monocyte% 6.5 % (0-10); NRBC Flagged by Analyzer 0 % (0-5); Neutrophil # 4.46 X10^3/uL (2.7-7.7); Neutrophil % 63.3 % (47-70); Platelet Count 334 K/mm3 (150-450); RBC Distribution Width CV 13.3 % (11.6-14.6); RBC Distribution Width SD 41.1 fl (35.1-43.9); Red Blood Count 4.85 M/mm3 (4.2-5.4); White Blood Count 7.1 K/mm3 (4.4-11.0)
[2020-09-08 11:00] LABS: ALB/GLOB Ratio 1.1 RATIO (0.9-2.4); AST(SGOT) 24 U/L (15-37); Alanine Aminotransfer ALT/SGPT 23 U/L (13-56); Albumin, Serum 3.8 g/dL (3.2-5.0); Alkaline Phosphatase 155 U/L (45-117); Anion Gap 6 (5-15); BUN 17 mg/dL (7-18); BUN/Creat Ratio 21.6 RATIO (10-20); Calcium,Total 8.7 mg/dL (8.5-10.1); Chloride 107 mmol/L (98-107); Creatinine, Serum 0.79 mg/dL (0.55-1.02); EST Glomerular Filtration Rate 88 mL/min (>60); Est Glom Filt Rate - Afr Amer 106 mL/min (>60); Estimated Creatinine Clearance 96.66 ml/min; Globulin 3.6 g/dL (2.2-4.2); Glucose 97 mg/dL (74-106); Protein, Total 7.4 g/dL (6.4-8.2); Sodium Level 138 mmol/L (136-145)
[2020-09-08 11:09] VITALS: PULSE 87; RESP 15; O2SAT 98
[2020-09-08] MEDS: 0.9% Normal Saline 1,000 ML 1000 ML IV (11:13)
[2020-09-08 11:21] LABS: Mucous, Urine 0 SEEN /hpf (<or=2+); Red Blood Cells-Urine 0 SEEN /hpf (0-5); White Blood Cells 0 SEEN /hpf (0-5)
[2020-09-08 11:23] LABS: Color, Urine Yellow (Yellow); Glucose, Dipstick Normal (Normal); Ketone-Dipstick Negative (Negative); Leukocyte Esterase-Dipstick Negative /ul (Negative); Nitrite-Dipstick Negative (Negative); Occult Blood-Urine 10 /ul (Negative); Protein-Dipstick Negative (Negative); Urine Bilirubin Dipstick Negative (Negative); Urine Clarity Cloudy (Clear); Urine Urobilinogen Normal (Normal)
[2020-09-08 11:29] LABS: Bacteria 2+ /hpf (None Seen); Internal QC Validated? YES +Cl - CLEAR BKGD; Pregnancy, Urine Negative Negative; Squamous Epithelial Cells - UA 25-50 SEEN /hpf (5-10)
[2020-09-08 12:44] VITALS: BP 125/80; PULSE 95; RESP 15; O2SAT 100
== END 2020-09-08 12:58 | disposition home or self-care (01) ==
PROVIDERS: Emergency Provider Emergency Medicine; PCP Family Medicine
DX: R41.0 Disorientation, unspecified (principal); R42 Dizziness and giddiness
CPT/HCPCS: 70450; 80053; 81001; 81025; 82962; 84484; 85025; 93005; 93971; 96360; 99284; J7030; A4216

== ENCOUNTER 2021-08-30 10:30 | Outpatient (RCR) | payer BC, OTHER, MEDICAID, SELFPAY ==
--- NOTE | 2021-06-14 14:59 | HP.PTEVAL_ITS ---
Patient's Visit Information DENYS VERDE is a 35 year old F referred to Physical Therapy by GUILLERMINA ROSA with a diagnosis of Closed Tib Fx, leg length discrepency. Date of Evaluation: 06/14/21 Physical Therapist: DELMER Doe - Visit Plan Frequency: 3x /Week Duration: 2 Months Plan: 3X/ week for 5 weeks for L ankle PROM, joint mobs to increase motion at the ankle joint and toes, great toe flexion and Ext ROM, strengthening of the L ankle, increase WB of the L ankle, gait training with HEP. HEP: towel gastroc stretching, seated heel and toe raises, towel scrunches, QS - Subjective In Mar 2019 she broke her tib/fib ice skating and she had surgery with plates and screws on B sides of ankle and then got infected and has led to 12 surgeries. Several of the surgeries were due to the infection and then the hardware and bone was removed. She got an external fixator put on and then a peyman put in her Tibia and then more plates and screws with a bone graft and then she was able to walk not great for a few months. In Feb 2021 did a bone lengthening procedure and now she is done with surgeries until peyman taken out next year. Her ROM in her ankle is not there and can not walk properly. She has no restrictions at this point. She uses a straight cane only when she feels that she needs it. Last week has not been using her cane much. She just came off of NWB for 2 months. It is her L ankle. Pt is not back to work. 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 She does not currently have a job at this time and has been laid off. She sometimes has pain if she walks or stands too much or sits too long and goes to walk. Dr Ozzie Hairston at [facility] is the surgeon. SHe is cleared until she is ready to have the peyman come out. - Pain L ankle pain Pain Intensity (Out of 10): 0 - Objective gait: Walks with decrease stride, decreased heel to toe motion, decreased WB on the L LE (decrease stance time), decrease weight shift, walks with a cane. L ankle: -14 degrees from neutral and 21 degrees DF EV 3 degrees, INV 4 degrees. L ankle MMT: DF 2-/5, PF 3-/5, INV/EV 2-/5. -6 degrees from full ext L knee and 120 degrees L knee flexion. Pt has very little toe movement and almost no L great toe extension. Pt is not able to do a heel and toe raise in standing on the L side. Very large graft scars and flap from Quad - Balance/Special Test Scores Lower Extremity Functional Score: 40 - Goals Goal 1:: I HEP Goal Time Frame: 6-8 Weeks Goal 2:: Increase L ankle DF AROM to neutral (at time of the eval -14 degrees from neutral) Goal Time Frame: 6-8 Weeks Goal 3:: Be able to single leg stand on the L LE for 15 seconds Goal Time Frame: 6-8 Weeks Goal 4:: Walk with increase stride, heel to toe push off, increase weight shift Goal Time Frame: 6-8 Weeks Goal 5:: be able to complete 3 X 10 standing heel and toe raises with UE support Goal Time Frame: 6-8 Weeks - Rehabilitation Potential Rehabilitation Potential: Good - Anticipated Interventions Patient/Client Instruction: Educate patient on: Condition, Plan of Care For the Purpose of:: To decrease pain, To decrease swelling/inflammation, To increase ROM, To improve nutrient delivery to tissue, To improve muscle performance and motor function, To improve ability to perform ADL's, To increase tolerance to activity/condition/position, To improve performance and independence with ADL's, To decrease level of supervision to perform tasks, To improve ability of physical actions for home/community/work/leisure, To improve gait and locomotor functions, To improve health of tissue, To decrease soft tissue restriction, To increase flexibility/ROM, To improve balance, To improve safety with gait Therapeutic Exercise to Include: Strength training, Balance training, Co ordination, Body mechanics, Postural training, Flexibilty training, Gait and locomotor training, Neuromotor development, Passive ROM, Active ROM For the Purpose of:: To decrease pain, To increase ROM, To improve nutrient delivery to tissue, To improve muscle performance and motor function, To improve ability to perform ADL's, To increase tolerance to activity/condition/position, To improve performance and independence with ADL's, To decrease level of supervision to perform tasks, To improve ability of physical actions for home/community/work/leisure, To improve gait and locomotor functions, To improve health of tissue, To decrease soft tissue restriction, To increase flexibility/ROM, To improve endurance, To improve balance, To improve safety with gait Functional Training to Include: ADL Training, Gait training For the Purpose of:: To improve nutrient delivery to tissue, To improve muscle performance and motor function, To improve ability to perform ADL's, To increase tolerance to activity/condition/position, To improve performance and independence with ADL's, To decrease level of supervision to perform tasks, To improve ability of physical actions for home/community/work/leisure, To improve gait and locomotor functions, To improve health of tissue, To decrease soft tissue restriction, To increase flexibility/ROM, To improve endurance, To improve balance, To improve safety with gait, To assume or resume ADL's Manual Therapy Techniques to Include: Mobilization, Passive ROM For the Purpose of:: To increase ROM, To improve nutrient delivery to tissue, To improve muscle performance and motor function, To improve ability to perform ADL's, To increase tolerance to activity/condition/position, To improve performance and independence with ADL's, To decrease level of supervision to perform tasks, To improve gait and locomotor functions, To improve health of tissue, To decrease soft tissue restriction, To increase flexibility/ROM, To improve balance, To improve safety with gait Thank you for the opportunity to evaluate your patient. For Medicare and Medicare HMO plans, please review the plan of care and approve it. It will need to be FAXED BACK to us at [phone] for Medicare purposes. For Medicare only, by signing this I certify the plan of care. Please let me know if there are questions or concerns regarding this plan of care. Physician Signature: Date:____
--- NOTE | 2021-07-28 12:24 | HP.PTREVAL_ITS ---
GUILLERMINA ROSA, It has been my pleasure to treat DENYS VERDE over the last 14 visits for Closed Tib Fx, leg length discrepency. Please see the progress note below for an update on the physical therapy plan of care! Subjective: Pt can walk up the stairs a lot better. She can stand on her tippy toes now. She stands up straighter when she walks. She feels that she is walking better than she was except for today. It was swollen on Monday but not today. Pt wants to call her surgeon as she is ready to get the peyman out if he is willing as she is making improvements but it is slow. Objective/Function: Pt still does not like to weight shift onto the L LE. Worked with her in front of a mirror to get her to weight shift and she did much better with it. Pt has hip drop as well so Hip strengthening for home was given. L ankle DF 3 degrees today. Stairs: up recip (with decrease weight shift on the L LE) with R hand rail and down leading with the R leg and then the L leg. Plan Plan: Possible trial of NeuroCom to increase weighrt shift on to the L side. 3X/ week for additional 5 weeks for L ankle PROM, joint mobs to increase motion at the ankle joint and toes, great toe flexion and Ext ROM, strengthening of the L ankle, increase WB of the L ankle, gait training with HEP Balance/Gait/Functional tests - Balance/Special Test Scores Lower Extremity Functional Score: 43 Goals Goal 1:: I HEP Goal Time Frame: 6-8 Weeks Goal Progress: Progressing Goal 2:: Increase L ankle DF AROM to 5 degrees (at time of the eval -14 degrees from neutral) Goal Time Frame: 6-8 Weeks Goal 3:: Be able to single leg stand on the L LE for 15 seconds Goal Time Frame: 6-8 Weeks Goal Progress: Progressing Goal 4:: Walk with increase stride, heel to toe push off, increase weight shift Goal Time Frame: 6-8 Weeks Goal Progress: Progressing Goal 5:: be able to complete 3 X 10 standing heel and toe raises with UE support Goal Time Frame: 6-8 Weeks Anticipated Interventions Patient/Client Instruction: Educate patient on: Condition, Plan of Care For the Purpose of:: To decrease pain, To decrease swelling/inflammation, To increase ROM, To improve nutrient delivery to tissue, To improve muscle performance and motor function, To improve ability to perform ADL's, To increase tolerance to activity/condition/position, To improve performance and independence with ADL's, To decrease level of supervision to perform tasks, To improve ability of physical actions for home/community/work/leisure, To improve gait and locomotor functions, To improve health of tissue, To decrease soft tissue restriction, To increase flexibility/ROM, To improve balance, To improve safety with gait Therapeutic Exercise to Include: Strength training, Balance training, Coordination, Body mechanics, Postural training, Flexibilty training, Gait and locomotor training, Neuromotor development, Passive ROM, Active ROM For the Purpose of:: To decrease pain, To increase ROM, To improve nutrient delivery to tissue, To improve muscle performance and motor function, To improve ability to perform ADL's, To increase tolerance to activity/condition/position, To improve performance and independence with ADL's, To decrease level of supervision to perform tasks, To improve ability of physical actions for home/community/work/leisure, To improve gait and locomotor functions, To improve health of tissue, To decrease soft tissue restriction, To increase flexibility/ROM, To improve endurance, To improve balance, To improve safety with gait Functional Training to Include: ADL Training, Gait training For the Purpose of:: To improve nutrient delivery to tissue, To improve muscle performance and motor function, To improve ability to perform ADL's, To increase tolerance to activity/condition/position, To improve performance and independence with ADL's, To decrease level of supervision to perform tasks, To improve ability of physical actions for home/community/work/leisure, To improve gait and locomotor functions, To improve health of tissue, To decrease soft tissue restriction, To increase flexibility/ROM, To improve endurance, To improve balance, To improve safety with gait, To assume or resume ADL's Manual Therapy Techniques to Include: Mobilization, Passive ROM For the Purpose of:: To increase ROM, To improve nutrient delivery to tissue, To improve muscle performance and motor function, To improve ability to perform ADL's, To increase tolerance to activity/condition/position, To improve perfo rmance and independence with ADL's, To decrease level of supervision to perform tasks, To improve gait and locomotor functions, To improve health of tissue, To decrease soft tissue restriction, To increase flexibility/ROM, To improve balance, To improve safety with gait Please do not hesitate to contact me at [phone] by phone or if you have questions or concerns regarding this new plan of care! Sincerely, Katie Oliveira, MPT
--- NOTE | 2021-08-30 10:59 | HP.PTDCSUM ---
It has been my pleasure to treat DENYS VERDE referred by GUILLERMINA ROSA, with the diagnosis of Closed Tib Fx, leg length discrepency for a total of 24 visit(s). Discharge Date: 08/30/21 Please see the following information for a summary of their discharge status. Subjective: Pt saw and he said it was up to her about surgery but was not sure she would gain more ROM. She wants to continue at home with stretching right now. She feels that she is getting around better. At home she has been working hard on L leg to increase weight bearing. She does the slant board and stair stretches and trying to squat more. L ankle pain Pain Intensity (Out of 10): 0 L knee Pain Intensity (Out of 10): 0 % Improvement: 80 Objective/Function: Struggles with standing DF AROM. L ankle DF neutral and 18 degrees PF. Stairs: up stairs recip with 1 hand rail and descend stairs with the L LE followed by the R. Gait: walks with decreased stance time on the L and not full wieght transfer onto the L LE so antalgic gait remains. SLB 5 seconds... on the L. Goal 1:: I HEP Goal Progress: Goal Met Goal 2:: Increase L ankle DF AROM to 5 degrees (at time of the eval -14 degrees from neutral) Goal Progress: Progressing Goal 3:: Be able to single leg stand on the L LE for 15 seconds Goal Progress: Progressing Goal 4:: Walk with increase stride, heel to toe push off, increase weight shift Goal Progress: Progressing Goal 5:: be able to complete 3 X 10 standing heel and toe raises with UE support Goal Progress: Goal Met Plan: pt to do HEP for now and contact if wants surgery or feels that she has reached a pleateu with HEP Discharge Comments: DC PT to HEP If there are questions or concerns regarding this patient's physical therapy, please feel free to call me at [phone]. Thank you for the referral of this patient. Sincerely, Katie Oliveira, MPT Balance/Gait/Functional tests - Balance/Special Test Scores Lower Extremity Functional Score: 52
== END 2021-08-30 19:00 | disposition home or self-care (01) ==
LOC: PT 10:30
PROVIDERS: PCP Family Medicine
DX: S82.232 Displaced oblique fracture of shaft of left tibia (principal); M21.70 Unequal limb length (acquired), unspecified site
CPT/HCPCS: 97110; 97112; 97140; 97162; 97530